=== PATIENT | female | born 1940 | race Caucasian/White ===

== ENCOUNTER 2019-07-30 10:48 | Emergency (ER) | payer MEDICARE ==
[~2019-07-30] VITALS: Ht 165.1 cm; Wt 65.8 kg
--- OUTSIDE RECORDS SUMMARY | ~2019-07-30 | XMS | Encounter Summary ---
Demographics + + + | Address | [address] | | | [place] [address] | + + + | Home Phone | | + + + | Preferred Language | Unknown | + + + | Marital Status | | + + + | Oriental Orthodox Affiliation | 1001 | + + + | Race | Unknown | + + + | Ethnic Group | Unknown | + + + Author + + + | Author | [facility] | | | and [place] | + + + | Organization | [facility] | | | and [place] | + + + | Address | Unknown | + + + | Phone | Unavailable | + + + Support + + +---------+ + | Name | Relationship | Address | Phone | + + +---------+ + | Kimberly Lyon | ECON | Unknown | | + + +---------+ + | Frances Dustin | ECON | Unknown | | + + +---------+ + Care Team Providers + +------+ + | Care Senior C Software Engineer Name | Role | Phone | + +------+ + PCP | Unavailable | + +------+ + Encounter Details +--------+ + + + + | Date | Type | Department | Care Team | Description | +--------+ + + + + | 04/08/ | Hospital | [facility] [place] | Doug García MD | | | 2010 | Encounter | [facility] | [address] | | | | | [address] | [place] [address] | | | | | [place], [place] | [phone] | | | | | [address] | | | | | | [phone] | | | +--------+ + + + + Social History + +-------+ +--------+------+ | Tobacco Use | Types | Packs/Day | Years | Date | | | | | Used | | + +-------+ +--------+------+ | Never Assessed | | | | | + +-------+ +--------+------+ + + + | Sex Assigned at | Date Recorded | | | | + + + | Not on file | | + + + + + + + | Job Start Date | Occupation | Industry | + + + + | Not on file | Not on file | Not on file | + + + + + + + + | Travel History | Travel Start | Travel End | + + + + + + | No recent travel history available. | + + documented as of this encounter Medications at Time of Discharge + + + +---------+ + + | Medication | Sig | Dispensed | Refills | Start | End Date | | | | | | Date | | + + + +---------+ + + | ascorbic acid ([facility] | Take 1,000 mg by | | 0 | 04/06/20 | | | VITAMIN C) 1000 MG | mouth Daily. | | | 11 | 4 | | tablet | | | | | | + + + +---------+ + + | B | once a day | | 0 | 04/06/20 | | | Ekwpjud-Trkxfd-JO | | | | 11 | 4 | | ( VITAMIN B | | | | | | | 50/B-COMPLEX) TABS | | | | | | + + + +---------+ + + | GARLIC | CAPS; once a day | | 0 | 04/06/20 | | | | | | | 11 | 4 | + + + +---------+ + + | magnesium (GNP | Take 250 mg by mouth | | 0 | 04/06/20 | | | MAGNESIUM) 250 MG | 2 times daily. | | | 11 | 4 | | tablet | | | | | | + + + +---------+ + + | magnesium, as | Take 500 mg by mouth | | 0 | 04/06/20 | | | oxide, (GNP | 3 times daily. | | | 11 | 0 | | MAGNESIUM) 250 MG | | | | | | | tablet | | | | | | + + + +---------+ + + | Red Yeast Rice 600 | Take 600 mg by mouth | | 0 | 04/06/20 | | | MG CAPS | 3 times daily. | | | 11 | 4 | + + + +---------+ + + documented as of this encounter Plan of Treatment Not on filedocumented as of this encounter Procedures + +--------+ + + + | Procedure Name | Priori | Date/Time | Associated Diagnosis | Comments | | | ty | | | | + +--------+ + + + | HISTORICAL IMAGING | | 04/08/2011 | | Results for this | | RESULT | | 9:43 AM | | procedure are in the | | | | PDT | | results section. | + +--------+ + + + documented in this encounter Results Historical Imaging Result (04/08/2011 9:43 AM PDT) + + | Specimen | + + | | + + + + + | Narrative | Performed At | + + + | Exam Performed Location: [facility] | MISCELANIOUS | | CT PARANASAL SINUS UNENHANCED CLINICAL INFORMATION: Chronic | LAB | | sinusitis. COMPARISON: 02/01/2006. PROCEDURE: CT scan of the | | | paranasal sinuses was carried out in transaxial plane unenhanced | | | utilizing contiguous 3 mm thick sections. 2 mm coronal reformations | | | were also obtained. Bone window settings were utilized. | | | FINDINGS: Dental amalgam are again seen resulting in adjacent | | | significant streaking artifacts. Hypoplastic frontal sinuses | | | bilaterally are again noted, left markedly smaller than right. Mild | | | scattered mucosal thickening in ethmoid sinuses bilaterally are | | | seen. Mild mucoperiosteal thickening adjacent to irwin of left | | | maxillary sinus (most prominent at posterior inferior maxillary | | | sinus) and to a lesser extent right maxillary sinus are noted. | | | Remainder of paranasal sinuses and mastoid air cells appear well | | | aerated. There is mucoperiosteal thickening in portion of left | | | ostiomeatal complex unit. There is narrowing of right ostiomeatal | | | complex unit which still appears patent. Hyperostosis frontalis | | | interna is seen. Focal minimal septal deviation to right at mid | | | posterior portion of nasal septum is noted. Well-aerated tylor | | | bullosa within superior left middle turbinate is seen. No gross | | | destructive or erosive osseous pathology is evident. IMPRESSION: | | | 1. Mild scattered mucosal thickening in ethmoid sinuses | | | bilaterally. 2. Mild mucoperiosteal thickening adjacent to irwin of | | | left maxillary sinus (most prominent at posterior inferior maxillary | | | sinus) and to a lesser extent right maxillary sinus. 3. | | | Mucoperiosteal thickening in portion of left ostiomeatal complex | | | unit. 4. Narrowing of right ostiomeatal complex unit which still | | | appears patent. 5. All other findings essentially unchanged from | | | prior exam as discussed above. S: SQ ([id number]) Signed by: | | | GILBERTO LYLES DO | | + + + + + | Procedure Note | + + | Carlos Martínez Conversion - 05/09/2013 4:59 PM PDT Exam [facility]formed [facility] UNENHANCEDCLINICAL INFORMATION:Chronic | | sinusitis.COMPARISON:02/01/2006.PROCEDURE:CT scan of the paranasal sinuses was carried | | out in transaxialplane unenhanced utilizing contiguous 3 mm thick sections. 2 mmcoronal | | reformations were also obtained. Bone window settings wereutilized.FINDINGS:Dental | | amalgam are again seen resulting in adjacent significantstreaking artifacts. | | Hypoplastic frontal sinuses bilaterally areagain noted, left markedly smaller than | | right. Mild scatteredmucosal thickening in ethmoid sinuses bilaterally are seen. | | Mildmucoperiosteal thickening adjacent to irwin of left maxillary sinus(most prominent | | at posterior inferior maxillary sinus) and to alesser extent right maxillary sinus are | | noted. Remainder ofparanasal sinuses and mastoid air cells appear well aerated. | | Thereis mucoperiosteal thickening in portion of left ostiomeatal complexunit. There is | | narrowing of right ostiomeatal complex unit whichstill appears patent.Hyperostosis | | frontalis interna is seen. Focal minimal septaldeviation to right at mid posterior | | portion of nasal septum isnoted. Well-aerated tylor bullosa within superior left | | middleturbinate is seen. No gross destructive or erosive osseouspathology is | | evident.IMPRESSION:1. Mild scattered mucosal thickening in ethmoid | | sinusesbilaterally.2. Mild mucoperiosteal thickening adjacent to irwin of leftmaxillary | | sinus (most prominent at posterior inferior maxillarysinus) and to a lesser extent | | right maxillary sinus.3. Mucoperiosteal thickening in portion of left | | ostiomeatalcomplex unit.4. Narrowing of right ostiomeatal complex unit which still | | appearspatent.5. All other findings essentially unchanged from prior exam asdiscussed | | above.S: SQ ([id number]) Signed by: GILBERTO LYLES DO | |lesser extent right maxillary sinus are noted. Remainder of | |paranasal sinuses and mastoid air cells appear well aerated. There | |is mucoperiosteal thickening in portion of left ostiomeatal complex | |unit. There is narrowing of right ostiomeatal complex unit which | |still appears patent. | | | |Hyperostosis frontalis interna is seen. Focal minimal septal | |deviation to right at mid posterior portion of nasal septum is | |noted. Well-aerated tylor bullosa within superior left middle | |turbinate is seen. No gross destructive or erosive osseous | |pathology is evident. | | | |IMPRESSION: | |1. Mild scattered mucosal thickening in ethmoid sinuses | |bilaterally. | |2. Mild mucoperiosteal thickening adjacent to irwin of left | |maxillary sinus (most prominent at posterior inferior maxillary | |sinus) and to a lesser extent right maxillary sinus. | |3. Mucoperiosteal thickening in portion of left ostiomeatal | |complex unit. | |4. Narrowing of right ostiomeatal complex unit which still appears | |patent. | |5. All other findings essentially unchanged from prior exam as | |discussed above. | | | | | |S: SQ ([id number]) Signed by: GILBERTO LYLES DO | + + + +---------+ + + | Performing | Address | City/State/Zipcode | Phone Number | | Organization | | | | + +---------+ + + | [facility] | | | [phone] | + +---------+ + + | MISC[facility]OUS LAB | | | [phone] | + +---------+ + + documented in this encounter Visit Diagnoses Not on filedocumented in this encounter"
--- OUTSIDE RECORDS SUMMARY | ~2019-07-30 | XMS | Encounter Summary ---
Demographics + + + | Address | [address] | | | [place] [address] | + + + | Home Phone | | + + + | Preferred Language | Unknown | + + + | Marital Status | | + + + | Restorationist Affiliation | 1001 | + + + | Race | Unknown | + + + | Ethnic Group | Unknown | + + + Author + + + | Author | [facility] | | | and [place] | + + + | Organization | [facility] | | | and [...] Team Providers + +------+ + | Care Glove Pairer Name | Role | Phone | + +------+ + | Doug García MD | PCP | | + +------+ + Encounter Details +--------+ + + + + | Date | Type | Department | Care Team | Description | +--------+ + + + + | 01/30/ | Hospital | [facility] [place] | Doug García MD | | | 2014 | Encounter | [facility] | [address] | | | | | [facility] | [place] [address] | | | | | [address] | [phone] | | | | | [place], [place] | | | | | | [address] | | | | | | [phone] | | | +--------+ + + + + Social History + +-------+ +--------+------+ | Tobacco Use | Types | Packs/Day | Years | Date | | | | | Used | | + +-------+ +--------+------+ | Never Smoker | | | | | + +-------+ +--------+------+ + +---+---+---+ | Smokeless Tobacco: | | | | | Never Used | | | | + +---+---+---+ + + +---------+ + | Alcohol Use | Drinks/Week | oz/Week | Comments | + + +---------+ + | Yes | | | Pt rarely drinks | | | | | alcohol | + + +---------+ + + + + | Sex Assigned at [...] + + documented as of this encounter Functional Status + + + + | Functional Status | Response | Date of Assessment | + + + + | Are you deaf or do you have serious | No | 01/06/2014 | | difficulty hearing? | | | + + + + | Are you blind or do you have serious | No | 01/06/2014 | | difficulty seeing, even when wearing | | | | glasses? | | | + + + + | Do you have serious difficulty walking or | Yes | 01/06/2014 | | climbing stairs? (5 years old or older) | | | + + + + | Do you have difficulty dressing or bathing? | Yes | 01/06/2014 | | (5 years old or older) | | | + + + + | Because of a physical, mental, or emotional | Yes | 01/06/2014 | | condition, do you have difficulty doing | | | | errands alone such as visiting a doctor's | | | | office or shopping? [15 years old or | | | | older)] | | | + + + + + + + + | Cognitive Status | Response | Date of Assessment | + + + + | Because of a physical, mental, or emotional | No | 01/06/2014 | | condition, do you have serious difficulty | | | | concentrating, remembering, or making | | | | decisions? (5 years old or older) | | | + + + + documented as of this encounter Medications at Time of Discharge + + + +---------+ + + | Medication | Sig | Dispensed | Refills | Start | End Date | | | | | | Date | | + + + +---------+ + + | amiodarone | Take 1 tablet by | 60 | 3 | 01/18/20 | | | (PACERONE) 200 mg | mouth 2 times daily. | tablet | | 14 | 4 | | tablet | | | | | | + + + +---------+ + + | Ascorbic Acid | Take 1,000 mg by | | 0 | | | | (VITAMIN C) 1000 MG | mouth Daily. | | | | 0 | | tablet | | | | | | + + + +---------+ + + | atorvaSTATin | Take 40 mg by mouth | | 0 | 12/19/19 | | | (LIPITOR) 40 mg | nightly. | | | 14 | 5 | | tablet | | | | | | + + + +---------+ + + | atorvaSTATin | Take 1 tablet by | 30 | 11 | 12/19/19 | | | (LIPITOR) 40 mg | mouth Daily. | tablet | | 14 | 4 | | tablet | | | | | | + + + +---------+ + + | famotidine | Take 1 tablet by | 30 | 0 | 01/14/20 | | | (PEPCID) 20 mg | mouth Daily. | tablet | | 14 | 5 | | tablet | | | | | | + + + +---------+ + + | ferrous gluconate | Take 1 tablet by | 60 | 1 | 01/03/20 | | | (FERGON) 324 (38 FE) | mouth 2 times daily | tablet | | 14 | 4 | | MG tablet | (with breakfast & | | | | | | | dinner). | | | | | + + + +---------+ + + | folic acid 1 mg | Take 1 tablet by | 30 | 1 | 01/03/20 | | | tablet | mouth Daily. | tablet | | 14 | 4 | + + + +---------+ + + | furosemide (LASIX) | Take 1 tablet by | 30 | 5 | 01/31/20 | | | 40 mg tablet | mouth Daily. | tablet | | 14 | 4 | + + + +---------+ + + | | Take 1 tablet by | 60 | 0 | 01/03/20 | | | HYDROcodone-acetamin | mouth every 4 hours | tablet | | 14 | 4 | | ophen (NORCO) 5-325 | as needed for Pain. | | | | | | mg per tablet | | | | | | + + + +---------+ + + | ibuprofen | Take 600 mg by mouth | | 0 | 01/14/20 | | | (ADVIL,MOTRIN) 600 | 2 times daily (with | | | 14 | 4 | | MG tablet | breakfast & | | | | | | | dinner). | | | | | + + + +---------+ + + | levothyroxine | Take 1 tablet by | 30 | 0 | 01/14/20 | | | (SYNTHROID, | mouth every morning | tablet | | 14 | 4 | | LEVOTHROID) 75 MCG | (before breakfast). | | | | | | tablet [...] + + + +---------+ + + | metoprolol | Take 1 tablet by | 60 | 2 | 01/03/20 | | | tartrate (LOPRESSOR) | mouth 2 times daily. | tablet | | 14 | 4 | | 25 mg tablet | | | | | | + + + +---------+ + + | potassium chloride | Take 1 tablet by | 90 | 0 | 01/14/20 | | | SA (K-SANDY,ALENAORTrentCON) | mouth 2 times daily. | tablet | | 14 | 4 | | 10 MEQ tablet | | | | | | + + + +---------+ + + | warfarin | Take 2.5 mg by mouth | | 0 | 01/14/20 | | | (COUMADIN) 2 mg | Daily. Pharmacy to | | | 14 | 4 | | tablet | dose | | | | | + + + +---------+ + + | zinc sulfate 220 | Take 220 mg by mouth | | 0 | | | | mg capsule | 2 times daily. | | | | 8 | + + + +---------+ + + documented as of this encounter Plan of Treatment Not on filedocumented as of this encounter Procedures + +--------+ + + + | Procedure Name | Priori | Date/Time | Associated Diagnosis | Comments | | | ty | | | | + +--------+ + + + | XR CHEST PA AND | Routin | 01/30/2014 | Post | Results for this | | LATERAL | e | 12:42 PM | pericardiotomy | procedure are in the | | | | PDT | syndrome | results section. | + +--------+ + + + documented in this encounter Results XR Chest PA and Lateral (01/30/2014 12:42 PM PDT) + + | Specimen | + + | | + + + + + | Narrative | Performed At | + + + | CHEST TWO VIEWS CLINICAL INFORMATION: Followup left | [facility] | | pleural effusion. History of quadruple bypass surgery on 12/24/2013. | | | COMPARISON: 01/12/2014. FINDINGS: Two PA and single lateral | | | erect views of chest were obtained. Patient is again status post open | | | heart surgery. Trachea is midline. Cardiomegaly is again seen. Mild | | | linear strand of increased density in right lateral inferior lung | | | base due to linear atelectasis, parenchymal scar and/or fibrosis is | | | noted. There is no evidence of active infiltrate or congestive | | | process. Right costophrenic sulcus appears clear. There is | | | opacification in left lower lung silhouetting left hemidiaphragm, | | | left costophrenic sulcus and mid to inferior left heart border | | | compatible with pleural effusion, moderately decreased in amount when | | | compared to prior exam. Adjacent osseous structures are essentially | | | unchanged from prior exam IMPRESSION: 1. Decreasing left | | | pleural effusion. 2. Persistent cardiomegaly. 3. Mild linear | | | atelectasis, parenchymal scar and/or fibrosis in right lateral | | | inferior lung base. | | + + + + + | Procedure Note | + + | Mauricio, Rad Results In - 01/30/2014 4:29 PM PDT | | | | CHEST TWO VIEWS | | | | CLINICAL INFORMATION: | | Followup left pleural effusion. History of quadruple bypass surgery | | on 12/24/2013. | | | | COMPARISON: | | 01/12/2014. | | | | FINDINGS: | | Two PA and single lateral erect views of chest were obtained. Patient | | is again status post open heart surgery. Trachea is midline. | | Cardiomegaly is again seen. Mild linear strand of increased density | | in right lateral inferior lung base due to linear atelectasis, | | parenchymal scar and/or fibrosis is noted. There is no evidence of | | active infiltrate or congestive process. Right costophrenic sulcus | | appears clear. There is opacification in left lower lung silhouetting | | left hemidiaphragm, left costophrenic sulcus and mid to inferior left | | heart border compatible with pleural effusion, moderately decreased | | in amount when compared to prior exam. Adjacent osseous structures | | are essentially unchanged from prior exam | | | | IMPRESSION: | | | | 1. Decreasing left pleural effusion. | | 2. Persistent cardiomegaly. | | 3. Mild linear atelectasis, parenchymal scar and/or fibrosis in right | | lateral inferior lung base. | | | + + + + + + + | Performing | Address | City/State/Zipcode | Phone Number | | Organization | | | | + + + + + | [facility] | [facility], [address] | [place] [address] | [phone] | | | [place] | | | + + + + + documented in this encounter Visit Diagnoses Not on filedocumented in this encounter"
--- OUTSIDE RECORDS SUMMARY | ~2019-07-30 | XMS | Encounter Summary ---
Demographics + + + | Address | [address] | | | [place] [address] | + + + | Home Phone | | + + + | Preferred Language | Unknown | + + + | Marital Status | | + + + | Baptism Affiliation | 1001 | + + + | Race | Unknown | + + + | Ethnic Group | Unknown | + + + Author + + + | Author | [facility] | | | and [place] | + + + | Organization | [facility] | | | and [...] Team Providers + +------+ + | Care Blow Torch Burner Name | Role | Phone | + +------+ + | Doug García MD | PCP | | + +------+ + Encounter Details +--------+ + + + + | Date | Type | Department | Care Team | Description | +--------+ + + + + | 10/21/ | Emergency | [facility] | Volodymyr Rudolph | Constipation, | | 2019 | | [facility] | [address] | unspecified | | | | EMERGENCY CENTER | [address] | constipation type; | | | | [address] | [place], [place] | Encounter for | | | | [place], [place] | [address] | postoperative wound | | | | [address] | [phone] | check | | | | [phone] | | | +--------+ + + + [...] + + documented as of this encounter Last Filed Vital Signs + + + + + | Vital Sign | Reading | Time Taken | Comments | + + + + + | Blood Pressure | 160/80 | 10/21/2018 5:08 PM | | | | | PDT | | + + + + + | Pulse | 82 | 10/21/2018 5:08 PM | | | | | PDT | | + + + + + | Temperature | 36.9 C (98.4 F) | 10/21/2018 5:08 PM | | | | | PDT | | + + + + + | Respiratory Rate | 16 | 10/21/2018 5:08 PM | | | | | PDT | | + + + + + | Oxygen Saturation | - | - | | + + + + + | Inhaled Oxygen | - | - | | | Concentration | | | | + + + + + | Weight | 70 kg (154 lb 5.1 | 10/21/2018 5:08 PM | | | | oz) | PDT | | + + + + + | Height | - | - | | + + + + + | Body Mass Index | 25.68 | 10/15/2018 2:40 PM | | | | | PDT | | + + + + + documented in this encounter Functional Status + + + + | Functional Status | Response | Date of Assessment | + + + + | Are you deaf or do you have serious | No | 03/30/2018 | | difficulty hearing? | | | + + + + | Are you blind or do you have serious | No | 03/30/2018 | | difficulty seeing, even when wearing | | | | glasses? | | | + + + + | Do you have serious difficulty walking or | No | 03/30/2018 | | climbing stairs? (5 years old or older) | | | + + + + | Do you have difficulty dressing or bathing? | No | 03/30/2018 | | (5 years old or older) | | | + + + + | Because of a physical, mental, or emotional | No | 03/30/2018 | | condition, do you have difficulty [...] physical, mental, or emotional | No | 03/30/2018 | | condition, do you have serious [...] + + + +---------+ + + | nitroglycerin | Place 1 tablet under | 25 | 0 | 04/05/20 | | | (NITROSTAT) 0.4 mg | the tongue every 5 | tablet | | 18 | | | SL | minutes as needed | | | | | | tabletIndications: | for Chest pain. | | | | | | Coronary artery | | | | | | | disease due to | | | | | | | calcified coronary | | | | | | | lesion | | | | | | + + + +---------+ + + | Ascorbic Acid | Take 1,000 mg by | | 0 | | | | (VITAMIN C) 1000 MG | mouth Daily. | | | | 0 | | tablet | | | | | | + + + +---------+ + + | aspirin 81 MG | Take 1 tablet by | 30 | 5 | 08/27/19 | | | tablet | mouth Daily. | tablet | | 18 | 0 | + + + +---------+ + + | atorvaSTATin | Take 1 tablet by | 30 | 5 | 04/05/20 | | | (LIPITOR) 40 mg | mouth nightly. | tablet | | 18 | 0 | | tablet | | | | | | + + + +---------+ + + | Capsicum, Cayenne, | Take by mouth | | 0 | | | | (CAYENNE PEPPER PO) | Daily. | | | | 0 | + + + +---------+ + + | clopidogrel | Take 1 tablet by | 30 | 11 | 03/31/20 | | | (PLAVIX) 75 mg | mouth Daily. | tablet | | 18 | 0 | | tablet | | | | | | + + + +---------+ + + | Coenzyme Q10 | Take by mouth | | 0 | | | | (COQ-10 PO) | Daily. | | | | 0 | + + + +---------+ + + | cyanocobalamin | Take 50 mcg by mouth | | 0 | | | | (VITAMIN B-12) 50 | Daily. | | | | 0 | | MCG tablet | | | | | | + + + +---------+ + + | isosorbide | Take 1 tablet by | 30 | 11 | 03/31/20 | | | mononitrate (IMDUR) | mouth Daily. | tablet | | 18 | 0 | | 30 mg ER tablet | | | | | | + + + +---------+ + + | levothyroxine | TAKE ONE TABLET BY | 90 | 3 | 06/02/20 | | | (SYNTHROID, | MOUTH ONCE DAILY IN | tablet | | 16 | 0 | | LEVOTHROID) 100 mcg | THE MORNING BEFORE | | | | | | tablet | BREAKFAST | | | | | + + [...] + + + +---------+ + + | meclizine | Take 1 tablet by | 60 | 2 | 02/26/20 | | | (ANTIVERT) 25 mg | mouth every 6 hours | tablet | | 14 | 0 | | tabletIndications: | as needed. | | | | | | Dizziness of unknown | | | | | | | cause | | | | | | + + + +---------+ + + | metoprolol | Take 3 tablets by | 90 | 11 | 04/05/20 | | | succinate | mouth Daily. | tablet | | 18 | 0 | | (TOPROL-XL) 25 mg 24 | | | | | | | hr tablet | | | | | | + + + +---------+ + + | metoprolol | Take 1 tablet by | 90 | 3 | 04/05/20 | | | succinate | mouth Daily. | tablet | | 18 | 0 | | (TOPROL-XL) 50 mg 24 | | | | | | | hr tablet | | | | | | + + + +---------+ + + | Nutritional | Take by mouth | | 0 | | | | Supplements (VITAMIN | Daily. | | | | 0 | | D MAINTENANCE PO) | | | | | | + + + +---------+ + + documented as of this encounter Plan of Treatment Not on filedocumented as of this encounter Visit Diagnoses + + | Diagnosis | + + | Constipation, unspecified constipation type | + + | Encounter for postoperative wound check Other specified aftercare following surgery | + + documented in this encounter"
--- OUTSIDE RECORDS SUMMARY | ~2019-07-30 | XMS | Encounter Summary ---
Demographics + + + | Address | [address] | | | [place] [address] | + + + | Home Phone | | + + + | Preferred Language | Unknown | + + + | Marital Status | | + + + | Adventism Affiliation | 1001 | + + + | Race | Unknown | + + + | Ethnic Group | Unknown | + + + Author + + + | Author | [facility] | | | and [place] | + + + | Organization | [facility] | | | and [place] | + + + | Address | Unknown | + + + | Phone | Unavailable | + + + Support + + +---------+ + | Name | Relationship | Address | Phone | + + +---------+ + | Kimberly Lyon | ECON | Unknown | | + + +---------+ + | Francesmami Chan | ECON | Unknown | | + + +---------+ + Care Team Providers + +------+ + | Care Drywall Taper Name | Role | Phone | + +------+ + | Doug García MD | PCP | | + +------+ + Reason for Visit + + + | Reason | Comments | + + + | Follow-up | | + + + | Coronary Artery | | | Disease | | + + + Encounter Details +--------+---------+ + + + | Date | Type | Department | Care Team | Description | +--------+---------+ + + + | 02/10/ | Office | [facility] | Fly Christianson, | Coronary artery | | 2013 | Visit | Cardiology [facility] | [address] | disease (Primary | | | | [address] | [address] [place], | Dx); Paroxysmal | | | | [address] [place], [place] | [place] [address] | atrial fibrillation | | | | [address] | [phone] | ([facility]); Benign | | | | [phone] | | essential | | | | | | hypertension; | | | | | | Chronic diastolic | | | | | | CHF (congestive | | | | | | heart failure), NYHA | | | | | | class 2 ([facility]) | +--------+---------+ + + + Social History + +-------+ [...] + + + | Blood Pressure | 146/90 | 02/10/2014 1:06 PM | L arm | | | | PDT | | + + + + + | Pulse | 64 | 02/10/2014 1:06 PM | reg | | | | PDT | | + + + + + | Temperature | - | - | | + + + + + | Respiratory Rate | - | - | | + + + + + | Oxygen Saturation | - | - | | + + + + + | Inhaled Oxygen | - | - | | | Concentration | | | | + + + + + | Weight | 71.7 kg (158 lb) | 02/10/2014 1:02 PM | | | | | PDT | | + + + + + | Height | 165.1 cm (5' 5") | 02/10/2014 1:02 PM | | | | | PDT | | + + + + + | Body Mass Index | 26.29 | 02/10/2014 1:02 PM | | | | | PDT [...] + + documented as of this encounter Patient Instructions Patient Instructions Fly Christianson MD - 02/10/2014 1:41 PM PDTStop Coumadin, Stop INR blood checks Stop Lasix and KCL, Replace with Dyazide 37.5/25 mg daily Add SHAMA Lisinopril 5 mg daily' Stop Amiodarone Reduce metoprolol to 12.5 mg twice a day Clinical f/u in 3 months documented in this encounter Progress Notes Fly Christianson MD - 02/10/2014 1:54 PM PDTFormatting of this note might be different fr om the original. PATIENT NAME: Chaya Chan : 1940: AGE: 73 y.o. PRIMARY CARE: Doug García MD CHIEF COMPLAINT: Chief Complaint Patient presents with Follow-up Coronary Artery Disease HISTORY OF PRESENT ILLNESS 73 y.o. year old female with history of bypass graft surgery x3 in December 2013. She had mild to diastolic heart failure postoperatively and also had postoperative atrial fibrillation. She was placed on Coumadin and amiodarone therapy. She's had no recurrent episodes of A. f ib. She is slowly getting her strength back. She feels dizzy approximately one to 2 hours after taking her medications. She denies any orthopnea or PND. She has no clinical history of heart failure despite some small pleural effusions postoperatively. She denies any recu rrent angina. She denies orthopnea or PND. CURRENT ASSESSMENT BY PROBLEM LIST Coronary artery disease Status post bypass graft surgery x3 without recurrent anginal symptoms. Patient's main com plaint is that of dizziness 1-2 hours after taking morning medications. She has been on bot h diuretics, amiodarone, and beta candice therapy 4 history of heart failure and postop A. denies recurrent angina Plan: Will reduce metoprolol to 12.5 mg twice a day DC amiodarone and Coumadin therapy Begin lisinopril 5 mg by mouth daily for blood pressure and decreased LV function Decrease Lasix to Dyazide 1 daily Paroxysmal atrial fibrillation (HCC) Paroxysmal atrial fibrillation postop now resolved. Patient is now rated in 1 month postop with maintenance of sinus rhythm. Her QT interval is mildly prolonged at 0.48 seconds with sinus rhythm Plan: #1 discontinue amiodarone #2. Discontinue Coumadin therapy #3 Start ASA 162 mg daily. Benign essential hypertension Hypertension; Previously on SHAMA inhibitor which was stopped initially post op P: D/C Lasix and KCL Resume lisinopril 5 mg daily Add dyazide 37.5/25 mg daily Monitor BP Chronic diastolic CHF (congestive heart failure), NYHA class 2 ([facility]) Diastolic CHF - Had post op effusions treated with diiuresis P: Change Lasix KCL to Dyazide Resume SHAMA at 5 mg Lisinopril daily FOLLOWUP Return in about 3 months (around 05/13/2014). MEDICATION ADJUSTMENTS New Prescriptions TRIAMTERENE-HYDROCHLOROTHIAZIDE (DYAZIDE) 37.5-25 MG PER CAPSULE Take 1 capsule by mout h Daily. These Medications Have Changed Start Taking Instead of metoprolol tartrate (LOPRESSOR) 25 mg tablet metoprolol tartrate (LOPRESSOR) 25 mg tablet Dosage: Take 0.5 tablets by mouth 2 times daily. - Oral Dosage: Take 1 tablet by mouth 2 times daily. - Oral Medications Discontinued During This Encounter Medication Reason amiodarone (PACERONE) 200 mg tablet Therapy completed warfarin (COUMADIN) 2 mg tablet Therapy completed furosemide (LASIX) 40 mg tablet Alternate therapy potassium chloride SA (K-DUR,KLOR-CON) 10 MEQ tablet Therapy completed metoprolol tartrate (LOPRESSOR) 25 mg tablet Reorder NEW ORDERS No orders of the defined types were placed in this encounter. . MEDICAL, SURGICAL, AND PERSONAL HISTORY Past Medical History Diagnosis Date Coronary artery disease Hyperlipidemia Hypertension Thyroid disease AR (myocardial infarction) ([facility]) CHF (congestive heart failure) ([facility]) Past Surgical History Procedure Date Coronary angioplasty Tonsillectomy Other surgical history 12/17/2013 CV DIAGNOSTIC CARDIAC CATH performed by Erum Gerardo MD at [facility] CARDIOV[facility]ULAR [facility] B Coronary artery bypass graft 12/24/2013 CORONARY ARTERY BYPASS GRAFT performed by Sj Viera MD at [facility] MAIN OR Stent placement additional vess Her family history is not on file. She reports that she has never smoked. She has never used smokeless tobacco. She reports t hat she drinks alcohol. She reports that she does not use illicit drugs. CURRENT MEDICATIONS Outpatient Encounter Prescriptions as of 02/10/2014 Medication Sig Dispense Refill [DISCONTINUED] amiodarone (PACERONE) 200 mg tablet Take 1 tablet by mouth 2 times daily . 60 tablet 3 Ascorbic Acid (VITAMIN C) 1000 MG tablet Take 1,000 mg by mouth Daily. atorvaSTATin (LIPITOR) 40 mg tablet Take 1 tablet by mouth Daily. 30 tablet 11 famotidine (PEPCID) 20 mg tablet Take 1 tablet by mouth Daily. 30 tablet 0 ferrous gluconate (FERGON) 324 (38 FE) MG tablet Take 1 tablet by mouth 2 times daily ( with breakfast & dinner). 60 tablet 1 folic acid 1 mg tablet Take 1 tablet by mouth Daily. 30 tablet 1 [DISCONTINUED] furosemide (LASIX) 40 mg tablet Take 1 tablet by mouth Daily. 30 tablet 5 HYDROcodone-acetaminophen (NORCO) 5-325 mg per tablet Take 1 tablet by mouth every 4 ho urs as needed for Pain. 60 tablet 0 ibuprofen (ADVIL,MOTRIN) 600 MG tablet Take 600 mg by mouth 2 times daily (with breakfa st & dinner). levothyroxine (SYNTHROID, LEVOTHROID) 75 MCG tablet Take 1 tablet by mouth every mornin g (before breakfast). 30 tablet 0 magnesium (GNP MAGNESIUM) 250 MG tablet Take 250 mg by mouth 2 times daily. metoprolol tartrate (LOPRESSOR) 25 mg tablet Take 0.5 tablets by mouth 2 times daily. 60 tablet 6 [DISCONTINUED] metoprolol tartrate (LOPRESSOR) 25 mg tablet Take 1 tablet by mouth 2 ti mes daily. 60 tablet 2 [DISCONTINUED] potassium chloride SA (K-DUR,KLOR-CON) 10 MEQ tablet Take 1 tablet by mo uth 2 times daily. 90 tablet 0 triamterene-hydrochlorothiazide (DYAZIDE) 37.5-25 MG per capsule Take 1 capsule by mout h Daily. 30 capsule 11 [DISCONTINUED] warfarin (COUMADIN) 2 mg tablet Take 2.5 mg by mouth Daily. Pharmacy to dose zinc sulfate 220 mg capsule Take 220 mg by mouth 2 times daily. ALLERGIES Allergies Allergen Reactions Iodine Anaphylaxis Diltiazem Hcl Latex Lidocaine Red Dye ROS 14 point ROS was completed and is negative except for: Weakness, shortness of breath, dizzi ness PHYSICAL EXAM BP 146/90 | Pulse 64 | Ht 1.651 m (5' 5") | Wt 71.668 kg (158 lb) | BMI 26.29 kg/m2 Body mass index is 26.29 kg/(m^2). GENERAL: Pleasant appearing in no apparent distress HEENT: Conjunctivae and lids are normal in appearance. Eyes: Extraocular movements intact. NECK: Supple, no JVD, Carotids are 2+ and brisk bilaterally without bruits. CHEST: Good inspiratory effort with no crackles, ronchi, or wheezes. CARDIAC ; midline incision appears well-healed PMI is non-displaced. Regular rate and rhyth m with normal S1 and S2. No murmurs, rubs or gallops. Blood pressures are equal in upper ext remities. ABDOMEN: Soft, non-tender, nondistended with normal, active bowel sounds. Normal abdominal pulsation without bruit. EXTREMITIES: No clubbing, cyanosis, or edema. PULSES: Right: radial 2+, femoral 2+ DP 2+, PT 2+ Left: radial 2+, femoral 2+ DP 2+, PT 2+ NEUROLOGIC: Non-focal. Patient is oriented to time, place, and person. Normal affect. SKIN: No rashes or skin breakdown. MUSCULOSKELETAL: Back is negative for scoliosis/kyphosis. Normal gait. Muscle strength is e qual bilaterally. LABS Lab Results Component Value Date WBC 5.7 01/16/2014 HGB 10.0* 01/16/2014 HCT 29.8* 01/16/2014 PLT 343 01/16/2014 CHOL 115 12/16/2013 TRIG 70 12/16/2013 HDL 53 12/16/2013 ALT 8* 01/16/2014 AST 9* 01/16/2014 NA 135 01/16/2014 K 4.5 01/16/2014 CL 98* 01/16/2014 CREA 0.99 01/16/2014 BUN 10 01/16/2014 CO2 32* 01/16/2014 TSH 4.48* 01/13/2014 INR 1.5* 01/30/2014 Twelve-lead ECG shows sinus rhythm at rate 61 beats per minute. QT interval is 0.[address]-T abnormality laterally. Thank you for allowing me to participate in the care of this patient. If you have any ques tions, please do not hesitate to contact me. Signed by: Fly Christianson MD [facility] 02/10/2014, 13:54 Patient Care Team: Doug García MD as PCP - General (Pulmonary Disease) documented in this e ncounter Plan of Treatment Not on filedocumented as of this encounter Visit Diagnoses + + | Diagnosis | + + | Coronary artery disease - Primary Coronary atherosclerosis of unspecified type of | | vessel, [place] or graft | + + | Paroxysmal atrial fibrillation (HCC) Atrial fibrillation | + + | Benign essential hypertension Essential hypertension, benign | + + | Chronic diastolic CHF (congestive heart failure), NYHA class 2 (HCC) | + + documented in this encounter
--- OUTSIDE RECORDS SUMMARY | ~2019-07-30 | XMS | Encounter Summary ---
Demographics + + + | Address | [address] | | | [place] [address] | + + + | Home Phone | | + + + | Preferred Language | Unknown | + + + | Marital Status | | + + + | Anabaptist Affiliation | 1001 | + + + | Race | Unknown | + + + | Ethnic Group | Unknown | + + + Author + + + | Author | [facility] | | | and [place] | + + + | Organization | [facility] | | | and [...] Team Providers + +------+ + | Care Rheologist Name | Role | Phone | + +------+ + | Doug García MD | PCP | | + +------+ + Reason for Visit + + + | Reason | Comments | + + + | Medication Refill | | + + + Encounter Details +--------+--------+ + + + | Date | Type | Department | Care Team | Description | +--------+--------+ + + + | 01/30/ | Refill | [facility] | Doug García MD | Medication Refill | | 2013 | | [facility] | [address] | | | | | Internal Medicine | [place] [address] | | | | | [address] [facility] | [phone] | | | | | [place], [place] | | | | | | [address] | | | | | | [phone] | | | +--------+--------+ + + + Social History + +-------+ [...] filedocumented as of this encounter Visit Diagnoses Not on filedocumented in this encounter"
--- OUTSIDE RECORDS SUMMARY | ~2019-07-30 | XMS | Encounter Summary ---
Demographics + + + | Address | [address] | | | [place] [address] | + + + | Home Phone | | + + + | Preferred Language | Unknown | + + + | Marital Status | | + + + | Scientologist Affiliation | [id number] | + + + | Race | Unknown | + + + | Ethnic Group | Unknown | + + + Author + + + | Author | [facility] | | | and [place] | + + + | Organization | [facility] | | | and [place] | + + + | Address | Unknown | + + + | Phone | Unavailable | + + + Support + + +---------+ + | Name | Relationship | Address | Phone | + + +---------+ + | Kimberly Lyon | ECON | Unknown | | + + +---------+ + | Frances Chan | ECON | Unknown | | + + +---------+ + Care Team Providers + +------+ + | Care Carton Forming Machine Helper Name | Role | Phone | + +------+ + | Doug García MD | PCP | | + +------+ + Reason for Visit + + + | Reason | Comments | + + + | Therapy Daily | | | Treatment | | + + + Physical Medicine (Routine) +--------+ + + + + + | Status | Reason | Specialty | Diagnoses / | Referred By | Referred To | | | | | Procedures | Contact | Contact | +--------+ + + + + + | Closed | Specialty | Physical | Diagnoses | Ricky, | [facility] Therapy | | | Services | Therapy / | Benign | MD Doug | [address] | | | Required | Rehabilitatio | paroxysmal | [address] | | | | n | positional | [address] | [place], [place] | | | | | vertigo, | Ave. | [address] | | | | | unspecified | [place], [place] | Phone: | | | | | laterality | [address] | [phone] | | | | | | Phone: | Fax: | | | | | | [phone] | [phone] | | | | | | Fax: | | | | | | | [phone] | | +--------+ + + + + + Encounter Details +--------+ + + + + | Date | Type | Department | Care Team | Description | +--------+ + + + + | 09/06/ | Hospital | [facility] | Doug García MD | Benign paroxysmal | | 2018 | Encounter | [facility] | [address] | positional vertigo, | | | | PHYSICAL THERAPY | [place] [address] | unspecified | | | | [address] | [phone] | laterality | | | | [place], [place] | | | | | | [address] | Satish Messer PT | | | | | [phone] | [address] | | | | | | [place], [place] | | | | | | [address] | | | | | | [phone] | | | | | | | | +--------+ + + + [...] do you have serious | No | 08/26/2017 | | difficulty hearing? | | | + + + + | Are you blind or do you have serious | No | 08/26/2017 | | difficulty seeing, even when wearing | | | | glasses? | | | + + + + | Do you have serious difficulty walking or | No | 08/26/2017 | | climbing stairs? (5 years old or older) | | | + + + + | Do you have difficulty dressing or bathing? | No | 08/26/2017 | | (5 years old or older) | | | + + + + | Because of a physical, mental, or emotional | No | 08/26/2017 | | condition, do you have difficulty [...] physical, mental, or emotional | No | 08/26/2017 | | condition, do you have serious [...] tablet by | 30 | 5 | 08/26/19 | | | (LIPITOR) 40 mg | mouth nightly. | tablet | | 18 | 8 | | tablet | | | | | | + + + +---------+ + + | Socorro Linda, | Take by mouth | | 0 [...] | | Take 1 tablet by | 30 | 11 | 05/04/20 | | | hydroCHLOROthiazide | mouth Daily. | tablet | | 17 | 8 | | 25 mg | | | | | | | tabletIndications: | | | | | | | Benign essential | | | | | | | hypertension | | | | | | + + + +---------+ + + | isosorbide | Take 1 tablet by | 30 | 5 | 08/27/19 | | | mononitrate (IMDUR) | mouth Daily. | tablet | | 18 | 8 | | 30 mg ER tablet | [...] metoprolol | Take 1 tablet by | 30 | 11 | 11/11/19 | | | succinate | mouth Daily. | tablet | | 17 | 8 | | (TOPROL-XL) 50 mg 24 | | | | | | | hr | | | | | | | tabletIndications: | | | | | | | Benign essential | | | | | | | hypertension | | | | | | + + + +---------+ + + | nitroglycerin | Place 1 tablet under | 25 | 0 | 05/04/20 | | | (NITROSTAT) 0.4 mg | the tongue every 5 | tablet | | 17 | 8 | | SL | minutes as needed [...] + + +---------+ + + | potassium 99 mg | Take 99 mg by mouth | | 0 | | | | tablet | Daily. | | | | 8 | + + + +---------+ + + | rivaroxaban | Take 1 tablet by | 30 | 5 | 08/26/19 | | | (XARELTO) 15 mg | mouth Daily (with | tablet | | 18 | 8 | | tablet | dinner). | | | | | + + + +---------+ + + | rivaroxaban | Take 1 tablet by | 30 | 5 | 08/26/19 | | | (XARELTO) 20 mg | mouth Daily (with | tablet | | 18 | 8 | | tablet | dinner). Start | | | | | | | tomorrow, August | | | | | | | . | | | | | + + + +---------+ + + | thyroid | Take 32.5 mg by | | 0 | | | | (NATURE-THROID, | mouth Daily. | | | | 8 | | WESTHROID) 325 MG | | | | | | | TABS | | | | | | + + + +---------+ + + | zinc sulfate 220 | Take 220 mg by mouth | | 0 | | | | mg capsule | 2 times daily. | | | | 8 | + + + +---------+ + + documented as of this encounter Progress Notes Satish Izaguirre, PT - 09/06/2017 12:57 PM PSTFormatting of this note might be different fr om the original. [facility] [address] [facility] [address] Physical Therapy Daily Treatment Note Date: 09/06/2017 Patient Information Patient Name: Chaya Chan Date of : 1940 Age: 76 y.o. Encounter Diagnoses Code Name Primary? H81.10 Benign paroxysmal positional vertigo, unspecified laterality Referring Provider: Doug García MD Rehab Precautions Flowsheet Row [facility] PT EVALUATION from 09/01/2017 in [facility] SICAL [facility]Y Rehab Precautions Precautions Comments Significant PMH please review Rehab Learning Style Flowsheet Row [facility] PT EVALUATION from 09/01/2017 in [facility] SICAL THERAPY Learning Style Patient's [employer] Learning Style reading Today's Treatment Patient Name: Chaya Chan/: 1940/ Start Time: 1200 Stop time: 1240 Duration: 40 minutes Timed Treatment Codes: 40 minutes # of PT Visits to Date: 2 Visit Summary: Patient excited to start exercises because she wants to improve so she can d rive, go fishing with her family etc. Started patient with ocular tracking tracking and X1 v iewing. Reviewed exercises several times to ensure clear understanding and also had patient 's watch too so he can assist. Also did balance on foam with eyes closed. Patient not able to come in next week so will re-check in 2 weeks. Add X2 viewing next session and add tandem standing. May want to have patient perform adaptation exercises in front of TV o r in standing if able. Also will need to add dynamic balance exercises. Next Visit Information: Patient would prefer a HEP with limited visits used (as able). Tea ch X1 and X2 viewing as well as ocular tracking. Also static and dynamic balance exercise o n foam/pillow. Therapy Interventions HEP: 09/06: Ocular tracking and X1 viewing to be done 3x/day, Balance on foam with eyes alexx sed x 2 minutes (2x/day). Hand written instructions given PT Interventions: Intervention #1 PT INTERVENTION 1: HEP as specified in HEP section Assessment Rehabilitation potential: Patient demonstrates good potential to achieve established goals to address the documented impairments by participating in skilled physical therapy services. OP PT Goals OP PT Goals: Goal 3 Goal 1: Patient to be independent in a HEP in 3-4 weeks Goal 1 Status: Started HEP today Goal 2: Patient to be able to report full 100% confidence in walking in crowded shopping ar ea and being bumped Goal 2 Status: In progress Electronically signed by: Satish Izaguirre PT, 09/06/2017 12:57 Patient Name: Chaya Chan/: 1940/ documented in this e ncounter Plan of Treatment Not on filedocumented as of this encounter Visit Diagnoses + + | Diagnosis | + + | Benign paroxysmal positional vertigo, unspecified laterality | + + documented in this encounter"
--- OUTSIDE RECORDS SUMMARY | ~2019-07-30 | XMS | Encounter Summary ---
Demographics + + + | Address | [address] | | | [place] [address] | + + + | Home Phone | | + + + | Preferred Language | Unknown | + + + | Marital Status | | + + + | Jain Affiliation | 1001 | + + + | Race | Unknown | + + + | Ethnic Group | Unknown | + + + Author + + + | Author | [facility] | | | and [place] | + + + | Organization | [facility] | | | [...] Team Providers + +------+ + | Care Risk Management Specialist Name | Role | Phone | + +------+ + | Doug García MD | PCP | | + +------+ + Encounter Details +--------+ + + + + | Date | Type | Department | Care Team | Description | +--------+ + + + + | 01/20/ | Hospital | [facility] | Ivon Shelton | | | 2014 | Encounter | [facility] | MD [address] | | | | | CLINIC LAB [address] | | | | | [facility], | [place] [address] | | | | | [place] [address] | [phone] | | | | | [phone] | | | +--------+ + + + + Social History + +-------+ +--------+------+ | Tobacco Use | Types | Packs/Day | Years | Date | | | | | Used | | + +-------+ +--------+------+ | Never Smoker | | | | | + +-------+ +--------+------+ + + +---------+ + | Alcohol Use [...] | 0 | 01/14/20 | | | 40 mg tablet | [...] 0 | 01/14/20 | | | SA ([facility]) | mouth 2 times daily. | tablet [...] | + +--------+ + + + | PROTIME INR | Routin | 01/20/2014 | | Results for this | | | e | 10:00 AM | | procedure are in the | | | | PDT | | results section. | + +--------+ + + + documented in this encounter Results Protime INR (01/20/2014 10:00 AM PDT) + + + + + + | Component | Value | Ref Range | Performed | Pathologist | | | | | At | Signature | + + + + + + | Prothrombin | 20.7 (H) | 8.9 - 11.7 sec | [facility] | | | Time | | [facility] | | | | [facility] | [facility] | | | | | | [facility] | | + + + + + + | INR | 2.0 (H)Comment: Usual | 0.9 - 1.3 | [facility] | | | | oral anticoagulant | | [facility] | | | | range: 2.0 to 3.0 | | [facility] | | | | High level oral | | [facility] | | | | anticoagulant range: 2.5 | | LABORATORY | | | | to 3.5 | | | | + + + + + + + + | Specimen | + + | | + + + + + + + | Performing | Address | City/State/Zipcode | Phone Number | | Organization | | | | + + + + + | [facility]IK[facility] | [address] | [place] [address] | | | [facility] | | | | | LABORATORY | | | | + + + + + documented in this encounter Visit Diagnoses Not on filedocumented in this encounter"
--- OUTSIDE RECORDS SUMMARY | ~2019-07-30 | XMS | Encounter Summary ---
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 | NSTEMI (non-ST | | 2018 | | [facility] | MD [address]ynor [address] | elevated myocardial | | | | EMERG[facility] | [address] | infarction) (HCC) | | | | [address] | [place] [address] | (Primary Dx); Atrial | | | | [place], [place] | [phone] | fibrillation with | | | | [address] | | RVR ([facility]) | | | | [phone] | | | +--------+ + + + [...] + + + | Blood Pressure | 157/73 | 08/24/2017 3:08 PM | | | | | PST | | + + + + + | Pulse | 66 | 08/24/2017 3:08 PM | | | | | PST | | + + + + + | Temperature | 36.3 C (97.4 F) | 08/24/2017 10:12 AM | | | | | PST | | + + + + + | Respiratory Rate | 9 | 08/24/2017 3:08 PM | | | | | PST | | + + + + + | Oxygen Saturation | 99% | 08/24/2017 3:08 PM | | | | | PST | | + + + + + | Inhaled Oxygen | - | - | | | Concentration | | | | + + + + + | Weight | 78.5 kg (173 lb) | 08/24/2017 10:12 AM | | | | | PST | | + + + + + | Height | 165.1 cm (5' 5") | 08/24/2017 10:12 AM | | | | | PST | | + + + + + | Body Mass Index | 28.79 | 08/24/2017 10:12 AM | | | | | PST | | + + + + + [...] | + +--------+ + + + | TROPONIN I | STAT | 08/24/2017 | | Results for this | | | | 12:20 PM | | procedure are in the | | | | PST | | results section. | + +--------+ + + + | XR CHEST AP PORTABLE | STAT | 08/24/2017 | | Results for this | | | | 10:42 AM | | procedure are in the | | | | PST | | results section. | + +--------+ + + + | URINALYSIS, REFLEX | STAT | 08/24/2017 | | Results for this | | MICROSCOPIC AND/OR | | 10:20 AM | | procedure are in the | | CULTURE | | PST | | results section. | + +--------+ + + + | URINALYSIS, | STAT | 08/24/2017 | | Results for this | | MICROSCOPIC ONLY | | 10:20 AM | | procedure are in the | | | | PST | | results section. | + +--------+ + + + | NT-PRO BNP | STAT | 08/24/2017 | | Results for this | | | | 9:25 AM | | procedure are in the | | | | PST | | results section. | + +--------+ + + + | TROPONIN I | STAT | 08/24/2017 | | Results for this | | | | 9:25 AM | | procedure are in the | | | | PST | | results section. | + +--------+ + + + | D-DIMER | STAT | 08/24/2017 | | Results for this | | | | 9:25 AM | | procedure are in the | | | | PST | | results section. | + +--------+ + + + | CBC WITH | STAT | 08/24/2017 | | Results for this | | DIFFERENTIAL | | 9:25 AM | | procedure are in the | | | | PST | | results section. | + +--------+ + + + | COMPREHENSIVE | STAT | 08/24/2017 | | Results for this | | METABOLIC PANEL | | 9:25 AM | | procedure are in the | | | | PST | | results section. | + +--------+ + + + documented in this encounter Results Troponin I (08/24/2017 12:20 PM PST) + + + + + + | Component | Value | Ref Range | Performed | Pathologist | | | | | At | Signature | + + + + + + | Troponin I | 0.23 ()Comment: | 0.00 - 0.08 | [facility] | | | | Borderline elevation. | ng/mL | [facility] | | | | Repeat testing may be | | [facility] | | | | indicated.Borderline | | [facility]OS[facility] | | | | elevation. Repeat | | LABORATORY | | | | testing may be | | | | | | indicated.Verified by | | | | | | repeat analysis.Verified | | | | | | by readback.Notified | | | | | | Beulah in at 1309. | | | | + + + + + + + + | Specimen | + + | Blood | + + + + + + + | Performing | Address | City/State/Zipcode | Phone Number | | Organization | | | | + + + + + | [facility] | [address] | [place] [address] | | | [facility] | | | | | LABORATORY | | | | + + + + + XR Chest AP Portable (08/24/2017 10:42 AM PST) + + | Specimen | + + | | + + + + + | Narrative | Performed At | + + + | CHEST PORTABLE ONE VIEW CLINICAL INFORMATION: Chest pain | [facility] | | that started this morning. History of quadruple bypass. Patient has | | | been around secondhand smoke for over 60 years. COMPARISON: | | | Chest two views on 01/30/2014. FINDINGS: Single portable AP semi | | | erect film of chest was obtained. Overlying leads are seen. | | | Patient is again status post open heart surgery. Trachea is | | | midline. Cardiomegaly is again seen. Heart is again obscuring | | | left mid to lower lung. There is no evidence of pneumothorax. | | | Increased interstitial markings are seen in right infrahilar region | | | in right lower lobe and visualized left infrahilar region in left | | | lower lobe suspicious for infiltrates/pneumonitis. PA and lateral | | | erect chest for followup is recommended. Right costophrenic sulcus | | | appears grossly clear. There is haziness of left costophrenic | | | sulcus, query mild pleural effusion or due to technique and overlying | | | soft tissues. Adjacent osseous structures are essentially | | | unchanged from prior exam. IMPRESSION: 1. Persistent | | | cardiomegaly. 2. Suspicious for infiltrates/pneumonitis in right | | | infrahilar region in right lower lobe and visualized left infrahilar | | | region in left lower lobe. Clinical correlation is recommended. 3. | | | Haziness of left costophrenic sulcus, query mild pleural effusion or | | | due to technique and overlying soft tissues. Signed by: | | | DO Contreras Vivienne | | + + + + + | Procedure Note | + + | Mauricio, Carlos Results In - 08/24/2017 10:57 AM PST | | CHEST PORTABLE ONE VIEW | | | | CLINICAL INFORMATION: | | Chest pain that started this morning. History of quadruple bypass. | | Patient has been around secondhand smoke for over 60 years. | | | | COMPARISON: | | Chest two views on 01/30/2014. | | | | FINDINGS: | | Single portable AP semi erect film of chest was obtained. Overlying | | leads are seen. Patient is again status post open heart surgery. | | Trachea is midline. Cardiomegaly is again seen. Heart is again | | obscuring left mid to lower lung. There is no evidence of | | pneumothorax. Increased interstitial markings are seen in right | | infrahilar region in right lower lobe and visualized left infrahilar | | region in left lower lobe suspicious for infiltrates/pneumonitis. PA | | and lateral erect chest for followup is recommended. Right | | costophrenic sulcus appears grossly clear. There is haziness of left | | costophrenic sulcus, query mild pleural effusion or due to technique | | and overlying soft tissues. Adjacent osseous structures are | | essentially unchanged from prior exam. | | | | IMPRESSION: | | 1. Persistent cardiomegaly. | | 2. Suspicious for infiltrates/pneumonitis in right infrahilar region | | in right lower lobe and visualized left infrahilar region in left | | lower lobe. Clinical correlation is recommended. | | 3. Haziness of left costophrenic sulcus, query mild pleural effusion | | or due to technique and overlying soft tissues. | | | | | | | | Signed by: DO Contreras Vivienne | + + + +---------+ + + | Performing | Address | City/State/Zipcode | Phone Number | | Organization | | | | + +---------+ + + | [facility] | | | | + +---------+ + + Urinalysis, Microscopic Only (08/24/2017 10:20 AM PST) + + + + + + | Component | Value | Ref Range | Performed | Pathologist | | | | | At | Signature | + + + + + + | WBC UA | 0 to 5 | 0 - 5 /hpf | [facility] | | | | | | [facility] | | | | [facility] | | | | | | [facility] | | + + + + + + | RBC UA | None seen | 0 - 5 /hpf | [facility] | | | | | | [facility] | | | | | [facility] | | | | | | [facility] | | + + + + + + | Epithelial | ModerateComment: | /hpf | [facility] | | | Cells | Squamous | | [facility] | | | | | | [facility] | [facility] | | | | | | LAB[facility]ORY | | + + + + + + | BACTERIA UA | Few | /hpf | [facility] | | | | | | [facility] | | | | | [facility] | | | | | | [facility] | | + + + + + + | CASTS | None seen | /lpf | [facility] | | | | | | [facility] | | | | | [facility] | | | | | | [facility] | | + + + + + + | CRYSTAL UA | ModerateComment: | /hpf | [facility] | | | | Amorphous | | [facility] | | | | [...] | + + + + + | [facility] | [address] [facility] | [place] [address] | | | [facility] | | | | | LABORATORY | | | | + + + + + Urinalysis, Reflex Microscopic and/or Culture (08/24/2017 10:20 AM PST) + + + + + + | Component | Value | Ref Range | Performed | Pathologist | | | | | At | Signature | + + + + + + | COLLECTION | Urine, Clean Catch | | [facility] | | | METHOD 1 | | | [facility] | | | | | [facility] | | | | | | [facility] | | + + + + + + | Color, | Yellow | | [facility] | | | Urine | | | [facility] | | | | | | [facility] | | [facility] | | | | | | [facility] | | + + + + + + | Clarity | Clear | | [facility] | | | | | | [facility] | | | | | [facility] | | | | | | [facility] | | + + + + + + | Glucose, | Negative | Negative mg/dL | [facility] | | | Urine | | | [facility] | | | | | | [facility] | [facility] | | | | | | [facility]ORY | | + + + + + + | Bilirubin, | Negative | Negative | [facility] | | | Urine | | | [facility] | | | | | [facility] | | | | | | [facility] | | + + + + + + | Ketones, | Negative | Negative mg/dL | [facility] | | | Urine | | | [facility] | | | | | [facility] | | | | | | [facility] | | + + + + + + | Specific | 1.020 | 1.002 - 1.030 | [facility] | | | Delta | | | [facility] | | | | | | [facility] | [facility] | | | | | | [facility] | | + + + + + + | pH, Urine | 7.5 | 5.0 - 7.5 | [facility] | | | | | | [facility] | | | | | [facility] | | | | | | [facility] | | + + + + + + | Protein, | Negative | Negative mg/dL | [facility] | | | Urine | | | [facility] | | | | | | [facility] | [facility] | | | | | | [facility]ORY | | + + + + + + | Urobilinoge | 0.2 | 0.2 - 1.0 mg/dL | [facility] | | | n, Urine | | | [facility] | | | | | | [facility] | [facility] | | | | | | [facility] | | + + + + + + | Nitrite, | Negative | Negative | [facility] | | | Urine | | | [facility] | | | | | | [facility] | [facility] | | | | | | [facility] | | + + + + + + | Blood, | Negative | Negative | [facility] | | | Urine | | | [facility] | | | | | | [facility] | | [facility] | | | | | | [facility] | | + + + + + + | Leukocyte | Trace (A) | Negative | [facility] | | | Esterase, | | | [facility] | | | Urine | | | [facility] | [facility] | | | | | | [facility] | | + + + + + + | Culture | Culture not indicated | | [facility] | | | Indicated | | | [facility] | | | | | | [facility] | [facility] | | | | | | [facility] | | + + + + + + + + | Specimen | + + | Urine - Urine | | specimen obtained by | | clean catch | | procedure (specimen) | + + + + + + + | Performing | Address | City/State/Zipcode | Phone Number | | Organization | | | | + + + + + | MONIKA [facility] | [address] [facility] | [place] [address] | | | [facility] | | | | | LABORATORY | | | | + + + + + D-Dimer (08/24/2017 9:25 AM PST) + +-------+ + + + | Component | Value | Ref Range | Performed | Pathologist | | | | | At | Signature | + +-------+ + + + | D-Dimer | 0.41 | 0 - 0.50 ug/mL | [facility] | | | Quantitativ | | FEU | [facility] | | | e | | | [facility] | | [facility] | | | | | | [facility] | | + +-------+ + + + + + | Specimen | + + | Blood | + + + + + + + | Performing | Address | City/State/Zipcode | Phone Number | | Organization | | | | + + + + + | [facility] | [address] [facility] | [place] [address] | | | [facility] | | | | | LABORATORY | | | | + + + + + NT-PRO BNP (08/24/2017 9:25 AM PST) + + + + + + | Component | Value | Ref Range | Performed | Pathologist | | | | | At | Signature | + + + + + + | NT-proBNP | 1,140 (H)Comment: | <450 pg/mL | [facility] | | | | PLEASE NOTE NORMAL | | [facility] | | | | RANGE FOR PATIENTS 0-74 | | [facility] | | | | YEARS OF AGE IS <125. | | HOSPITAL | | | | FOR PATIENTS 75 YEARS OR | | LABORATORY | | | | OLDER, THE NORMAL RANGE | | | | | | IS <450 | | | | + + + + + + + + | Specimen | + + | Blood | + + + + + + + | Performing | Address | City/State/Zipcode | Phone Number | | Organization | | | | + + + + + | [facility] | [address] [facility] | [place] [address] | | | [facility] | | | | | LABORATORY | | | | + + + + + Troponin I (08/24/2017 9:25 AM PST) + + + + + + | Component | Value | Ref Range | Performed | Pathologist | | | | | At | Signature | + + + + + + | Troponin I | 0.25 ()Comment: | 0.00 - 0.08 | [facility] | | | | Borderline elevation. | ng/mL | [facility] | | | | Repeat testing may be | | [facility] | | | | indicated.Borderline | | [facility]OS[facility] | | | | elevation. Repeat | | LAB[facility]ATORY | | | | testing may be | | | | | | indicated.Verified by | | | | | | repeat analysis.Verified | | | | | | by readback.Notified | | | | | | Amilcar in ER at 1010. | | | | + + + + + + + + | Specimen | + + | Blood | + + + + + + + | Performing | Address | City/State/Zipcode | Phone Number | | Organization | | | | + + + + + | [facility] | [address] [facility] | [place] [address] | | | [facility] | | | | | LABORATORY | | | | + + + + + Comprehensive Metabolic Panel (08/24/2017 9:25 AM PST) + + + + + + | Component | Value | Ref Range | Performed | Pathologist | | | | | At | Signature | + + + + + + | Na | 138 | 135 - 145 | [facility] | | | | | mmol/L | [facility] | | | | | | [facility] | [facility] | | | | | | [facility] | | + + + + + + | K | 3.6 | 3.5 - 5.1 | [facility] | | | | | mmol/L | [facility] | | | | | | [facility] | | [facility] | | | | | | [facility] | | + + + + + + | Cl | 99 | 98 - 109 mmol/L | [facility] | | | | | | [facility] | | | | | | [facility] | [facility] | | | | | | [facility] | | + + + + + + | CO2 | 29 | 21 - 32 mmol/L | [facility] | | | | | | [facility] | | | | | | [facility] | [facility] | | | | | | [facility] | | + + + + + + | Glucose | 180 (H) | 60 - 114 mg/dL | [facility] | | | | | | [facility] | | | | | [facility] | | | | | | [facility] | | + + + + + + | BUN | 23 (H) | 8 - 21 mg/dL | [facility] | | | | | | [facility] | | | | | [facility] | | | | | | [facility] | | + + + + + + | Creatinine | 1.44 (H) | 0.5 - 1.2 mg/dL | [facility] | | | | | | [facility] | | | | | [facility] | | | | | | [facility] | | + + + + + + | Calcium | 9.5 | 8.5 - 10.2 | [facility] | | | | | mg/dL | [facility] | | | | | | [facility] | | | | | | [facility] | | + + + + + + | Total | 8.2 (H) | 6.3 - 8.0 g/dL | [facility] | | | Protein | | | [facility] | | | | | | [facility] | | [facility] | | | | | | [facility] | | + + + + + + | Albumin | 4.0 | 3.5 - 5.0 g/dL | [facility] | | | | | | [facility] | | | | | | [facility] | [facility] | | | | | | [facility] | | + + + + + + | Bilirubin | 0.4 | 0.2 - 1.0 mg/dL | [facility] | | | Total | | | [facility] | | | | | | [facility] | | | | [facility] | | | | | | [facility] | | + + + + + + | Alkaline | 73 | 38 - 110 U/L | [facility] | | | Phosphatase | | | [facility] | | | | | | [facility] | [facility] | | | | | | [facility]ORY | | + + + + + + | AST | 20 | 5 - 40 U/L | [facility] | | | | | | [facility] | | | | | [facility] | | | | | | [facility] | | + + + + + + | ALT | 27 | 12 - 78 U/L | [facility] | | | | | | [facility] | | | | | [facility] | | | | | | [facility] | | + + + + + + | Anion Gap | 14 | 10 - 20 mmol/L | [facility] | | | | | | [facility] | | | | | [facility] | | [facility] | | | | | | [facility] | | + + + + + + | Estimated | 38 (L)Comment: GFR <60: | >60 | [facility] | | | GFR | Chronic kidney disease, | ml/min/1.73m2 | [facility] | | | | if found over a 3 month | | [facility] | | | | period.GFR <15: Kidney | | HOSPITAL | | | | failure.For | | LABORATORY | | | | Americans, multiply the | | | | | | calculated GFR by 1.210 | | | | + + + + + + + + | Specimen | + + | Blood | + + + + + + + | Performing | Address | City/State/Zipcode | Phone Number | | Organization | | | | + + + + + | [facility] | [address] [facility] [facility] [address] | [place] [address] | | | [facility] | | | | | LABORATORY | | | | + + + + + CBC with Differential (08/24/2017 9:25 AM PST) + + + + + + | Component | Value | Ref Range | Performed | Pathologist | | | | | At | Signature | + + + + + + | WBC | 5.2 | 3.8 - 11.0 K/uL | [facility] | | | | | | [facility] | | | | | [facility] | | | | | | [facility] | | + + + + + + | RBC | 4.03 | 3.70 - 5.10 | [facility] | | | | | M/uL | [facility] | | | | | | [facility] | | [facility] | [facility] | | | | | | [facility] | | + + + + + + | Hemoglobin | 12.7 | 11.3 - 15.5 | [facility] | | | | | g/dL | [facility] | | | | | | [facility] | | | | [facility] | | | | | | [facility] | | + + + + + + | Hematocrit | 36.6 | 34.0 - 46.0 % | [facility] | | | | | | [facility] | | | | | [facility] | | | | | | [facility] | | + + + + + + | MCV | 90.7 | 80.0 - 100.0 fL | [facility] | | | | | | [facility] | | | | | | [facility] | | | | | | [facility] | | + + + + + + | MCH | 31.6 | 27.0 - 34.0 pg | [facility] | | | | | | [facility] | | | | | | [facility] | | [facility] | | | | | | [facility] | | + + + + + + | MCHC | 34.8 | 32.0 - 35.5 | [facility] | | | | | g/dL | [facility] | | | | | | [facility] | | [facility] | | | | | | [facility] | | + + + + + + | RDW-CV | 14.1 | 11.0 - 15.5 % | [facility] | | | | | | [facility] | | | | | [facility] | | | | | | [facility] | | + + + + + + | Platelet | 186 | 150 - 400 K/uL | [facility] | | | Count | | | [facility] | | | | | [facility] | [facility] | | | | | | [facility] | | + + + + + + | Differentia | Automated | | [facility] | | | l Type | | | [facility] | | | | | [facility] | | | | | | [facility] | | + + + + + + | % | 58.8 | 40.0 - 75.0 % | [facility] | | | Neutrophils | | | [facility] | | | | | [facility] | [facility] | | | | | | [facility] | | + + + + + + | % | 31.7 | 15.0 - 48.0 % | [facility] | | | Lymphocytes | | | [facility] | | | | | [facility] | [facility] | | | | | | [facility] | | + + + + + + | % Monocytes | 7.6 | 0.0 - 12.0 % | [facility] | | | | | | [facility] | | | | | [facility] | | | | | | [facility] | | + + + + + + | % | 1.2 | 0.0 - 7.0 % | [facility] | | | Eosinophils | | | [facility] | | | | | | [facility] | [facility] | | | | | | [facility] | | + + + + + + | % Basophils | 0.7 | 0.0 - 2.0 % | [facility] | | | | | | [facility] | | | | | [facility] | [facility] | | | | | | [facility] | | + + + + + + | % nRBC | 0.1 | /100 WBCs | [facility] | | | | | | [facility] | | | | | [facility] | | | | | | [facility] | | + + + + + + | Absolute | 3.10 | 1.90 - 7.40 | [facility] | | | Neutrophils | | K/uL | [facility] | | | | | [facility] | [facility] | | | | | | [facility] | | + + + + + + | Absolute | 1.70 | 1.00 - 3.90 | [facility] | | | Lymphocytes | | K/uL | [facility] | | | | | [facility] | | | | | | [facility] | | + + + + + + | Absolute | 0.40 | 0.00 - 0.80 | [facility] | | | Monocytes | | K/uL | [facility] | | | | | [facility] | [facility] | | | | | | [facility] | | + + + + + + | Absolute | 0.10 | 0.00 - 0.50 | [facility] | | | Eosinophils | | K/uL | [facility] | | | | | [facility] | [facility] | | | | | | [facility] | | + + + + + + | Absolute | 0.00 | 0.00 - 0.10 | [facility] | | | Basophils | | K/uL | [facility] | [facility] | | [facility] | | | | | | [facility] | | + + + + + + + + | Specimen | + + | Blood | + + + + + + + | Performing | Address | City/State/Zipcode | Phone Number | | Organization | | | | + + + + + | [facility] | [address] [facility] | [place] [address] | | | [facility] | | | | | LABORATORY | | | | + + + + + documented in this encounter Visit Diagnoses + + | Diagnosis | + + | NSTEMI (non-ST elevated myocardial infarction) (HCC) - Primary Acute myocardial | | infarction, subendocardial infarction, episode of care unspecified | + + | Atrial fibrillation with RVR (HCC) Atrial fibrillation | + + documented in this encounter Administered Medications + +--------+ +--------+------+------+ | Medication Order | MAR | Action | Dose | Rate | Site | | | Action | Date | | | | + +--------+ +--------+------+------+ | aspirin chewable tablet 324 mg | Given | 08/24/19 | 324 mg | | | | 324 mg, Oral, ONCE, [facility] 08/24/17 | | 18 9:40 | | | | | at 0935, For 1 dose | | AM PST | | | | + +--------+ +--------+------+------+ +---+---+ | | | +---+---+ + +-------+ +--------+---+---+ | heparin 1,000 units/mL | Given | 08/24/19 | 4,000 | | | | injection 4,000 Units 4,000 | | 18 11:09 | Units | | | | Units, Intravenous, ONCE, [place] | | AM PST | | | | | 08/24/17 at 1050, For 1 dose | | | | | | + +-------+ +--------+---+---+ +---+---+ | | | +---+---+ + +---------+ + +-------+---+ | heparin infusion 50 units/mL in | New Bag | 08/24/19 | 12 | 18.8 | | | dextrose 5% 12 Units/kg/hr | | 18 11:10 | Units/kg | mL/hr | | | 78.5 kg (18.84 mL/hr, rounded to | | AM PST | /hr | | | | 18.8 mL/hr), at 18.8 mL/hr, | | | | | | | Intravenous, ONCE, [place] 08/24/17 at | | | | | | | 1050, For 1 dose | | | | | | + +---------+ + +-------+---+ +---+---+ | | | +---+---+ + +-------+ +------+---+---+ | metoprolol tartrate (LOPRESSOR) | Given | 08/24/19 | 5 mg | | | | injection 5 mg 5 mg, | | 18 9:52 | | | | | Intravenous, ONCE, [place] 08/24/17 at | | AM PST | | | | | 0950, For 1 dose | | | | | | + +-------+ +------+---+---+ +---+---+ | | | +---+---+ + +-------+ +------+---+---+ | morphine injection 2 mg 2 mg, | Given | 08/24/19 | 2 mg | | | | Intravenous, EVERY 1 HOUR PRN, | | 18 9:40 | | | | | Pain, Starting [place] 08/24/17 at 0928 | | AM PST | | | | + +-------+ +------+---+---+ +---+---+ | | | +---+---+ + +---------+ +--------+-------+---+ | sodium chloride 0.9% (NS) bolus | New Bag | 08/24/19 | 1,000 | 500 | | | 1,000 mL 1,000 mL, Intravenous, | | 18 9:40 | mLs | mL/hr | | | Administer over 2 Hours, ONCE, | | AM PST | | | | | [place] 08/24/17 at 0935, For 1 dose | | | | | | + +---------+ +--------+-------+---+ +---+---+ | | | +---+---+ documented in this encounter
--- OUTSIDE RECORDS SUMMARY | ~2019-07-30 | XMS | Encounter Summary ---
Demographics + + + | Address | [address] | | | [place] [address] | + + + | Home Phone | | + + + | Preferred Language | Unknown | + + + | Marital Status | | + + + | Restorationism Affiliation | [id number] | + + + | Race | Unknown | + + + | Ethnic Group | Unknown | + + + Author + + + | Author | [facility] | | | and [place] | + + + | Organization | [facility] | | | and [place] | + + + | Address | Unknown | + + + | Phone | Unavailable | + + + Support + + +---------+ + | Name | Relationship | Address | Phone | + + +---------+ + | Kimberly Lyon | ECON | Unknown | | + + +---------+ + | Francesrosio Chan | ECON | Unknown | | + + +---------+ + Care Team Providers + +------+ + | Care 3D Designer Name | Role | Phone | + +------+ + | Doug García MD | PCP | | + +------+ + Reason for Visit Auth/Cert +--------+--------+ + + + + | Status | Reason | Specialty | Diagnoses / | Referred By | Referred To | | | | | Procedures | Contact | Contact | +--------+--------+ + + + + | Closed | | | Diagnoses | | | | | | | Coronary | | | | | | | atherosclero | | | | | | | sis of | | | | | | | [place] | | | | | | | coronary | | | | | | | artery | | | | | | | Coronary | | | | | | | atherosclero | | | | | | | sis of | | | | | | | [place] | | | | | | | coronary | | | | | | | artery | | | | | | | Procedures | | | | | | | AK CABG, | | | | | | | ARTERIAL, | | | | | | | THREE | | | | | | | CORONARY | | | | | | | ARTERY | | | | | | | BYPASS GRAFT | | | +--------+--------+ + + + + Encounter Details +--------+---------+ + + + | Date | Type | Department | Care Team | Description | +--------+---------+ + + + | 12/24/ | Surgery | [facility] | Sj Viera, | CABG X4, WITH EV - | | 2013 | | [facility] | MD [address] | RIGHT AND LEFT | | | | OP [address] | [place] [address] | SAPHENOUS VEIN,VOGEL | | | | [place] | [phone] | | | | | [address] | | | | | | [phone] | | | +--------+---------+ + + + Social History [...] + + + | Blood Pressure | 121/78 | 01/02/2014 7:00 AM | | | | | PDT | | + + + + + | Pulse | 88 | 01/02/2014 7:00 AM | | | | | PDT | | + + + + + | Temperature | 36.6 C (97.8 F) | 01/02/2014 7:00 AM | | | | | PDT | | + + + + + | Respiratory Rate | 16 | 01/02/2014 7:00 AM | | | | | PDT | | + + + + + | Oxygen Saturation | 96% | 01/02/2014 7:00 AM | | | | | PDT | | + + + + + | Inhaled Oxygen | - | - | | | Concentration | | | | + + + + + | Weight | 77.1 kg (169 lb 15.6 | 01/02/2014 2:45 AM | | | | oz) | PDT | | + + + + + | Height | 165.1 cm (5' 5") | 12/24/2013 8:54 AM | | | | | PDT | | + + + + + | Body Mass Index | 28.29 | 12/24/2013 8:54 AM | | | | | PDT | | + + + + + documented in this encounter Functional Status + + + + | Functional Status | Response | Date of Assessment | + + + + | Are you deaf or do you have serious | No | 12/16/2013 | | difficulty hearing? | | | + + + + | Are you blind or do you have serious | No | 12/16/2013 | | difficulty seeing, even when wearing | | | | glasses? | | | + + + + | Do you have serious difficulty walking or | No | 12/16/2013 | | climbing stairs? (5 years old or older) | | | + + + + | Do you have difficulty dressing or bathing? | No | 12/16/2013 | | (5 years old or older) | | | + + + + | Because of a physical, mental, or emotional | No | 12/16/2013 | | condition, do you have difficulty [...] physical, mental, or emotional | No | 12/16/2013 | | condition, do you have serious difficulty | | | | concentrating, remembering, or making | | | | decisions? (5 years old or older) | | | + + + + documented as of this encounter Discharge Summaries Sj Viera MD - 01/02/2014 10:18 AM PDTChart reviewed. Patient interviewed and examin ed. Agree with plans as outlined. Electronically signed by: Sj Viera MD 01/06/2014 11:56 o Brandon Herrera PA - 01/02/2014 10:18 AM PDT [facility] PATIENT NAME: Chaya Chan : 1940: AGE: 73 y.o. ADMISSION DATE: 12/24/2013 DISCHARGE DATE: 01/02/2014 PRIMARY CARE: Doug García MD DISCHARGE SUMMARY Admission Diagnoses: HOSPITAL PROBLEM LIST FULL PROBLEM LIST Principal Problem: *CORONARY ARTERY DISEASE Active Problems: A-fib (HCC) HYPERLIPIDEMIA ESSENTIAL HYPERTENSION BENIGN Acute blood loss anemia Stress hyperglycemia Patient Active Problem List Diagnosis HYPOTHYROIDISM HYPERLIPIDEMIA SLEEP APNEA OBSTRUCTIVE RESTLESS LEGS SYNDROME ESSENTIAL HYPERTENSION BENIGN CORONARY ARTERY DISEASE CARDIOMYOPATHY DILATED ISCHEMIC CHRONIC SINUSITIS CEREBRAL ISCHEMIA Nausea Allergic reaction to contrast dye NSTEMI (non-ST elevated myocardial infarction) (HCC) Acute systolic heart failure (HCC) Stress hyperglycemia A-fib (HCC) Acute blood loss anemia Hyponatremia Discharge Diagnoses: Same as above. Procedure: Coronary artery bypass graft times 4 with left internal mammary artery to the le ft anterior descending, aortocoronary reverse saphenous vein grafts to the obtuse marginal b ranch of the circumflex, diagonal branch of the left anterior descending, and right coronary artery with endoscopic vein harvest of the right and left thigh greater saphenous vein. Surgeon: Dr. Viera Date of Procedure: December 24, 2013 Indication for Procedure:Chaya is a pleasant 73-year-old female who was admitted last week with a non-Q-wave myocardial infarction. She was on Plavix for prior circumflex stenting. T he stent appears to have occluded. She has an angiogram showing severe 3-vessel coronary art cathy disease with very diffuse disease in the LAD, especially and circumflex system. Surgery has been recommended, and after informed consent, she was brought to the operating room. Hospital Course: Patient was admitted to [facility] on 12/24/[address] Dodie navarrete for coronary bypass grafting surgery. She was taken to the operating room on the same d ay. OPERATIVE FINDINGS: LV function is normal, which is improved from last week. The aorta is n ormal. Vein is good in the thigh, two small in the lower extremity. TEMI is a good conduit. T he arteries are terribly calcified with calcification all the way down the LAD into the diag onal way out on the circumflex system and right. It was very difficult to find landing sites for our grafts. The diagonal had a good landing site, the circumflex was grafted very dista lly and the LAD was grafted in the middle of the artery with disease before and after, altho ugh not a high-grade occlusive disease distally and the right was similarly grafted in the d istal third. There was good runoff in the grafts. The patient came off bypass with normal le ft ventricular function. No blood products were utilized. The patient before surgery refused packed red cells but said she would take platelets or FFP. No blood products were utilized. CARDIOPULMONARY BYPASS DATA: Crossclamp time 93 minutes, bypass time 103 minutes. Patient tolerated the procedure well with no intraoperative complications. For details ple ase refer to Dr. Viera's operative report. She was taken to the CICU postoperatively in sta ble condition. There, she was extubated without complications and was neurologically intact . She was later transferred to the floor on postoperative day 1 where she continued to prog ress and remained the rest of her hospitalization. She did have acute blood loss anemia, sh e initially refused to receive a blood transfusion but later agreed to transfusion of one un it of PRBC. She was also placed on IV iron and oral iron. She was diuresed for volume over load. She had several episodes of paroxysmal atrial fibrillation, she was ultimately placed on Coumadin. The rest of her hospital course was dedicated to cardio pulmonary rehabilitat ion. She is now ready for discharge home with her family on postoperative day #9 in stable condition. She is to have a hgb/hct check next week and a INR check tomorrow. She has been referred t o the [facility] anticoagulation clinic for further monitoring. Discharge Vitals: Vital Signs: Temp: 36.6 C (97.8 F) BP: 121/78 mmHg Pulse: 88 Resp: 16 SpO2: 96 % Last Wt. Before discharge: Weight: 77.1 kg (169 lb 15.6 oz) Wt. 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 aspirin 81 mg EC tablet Take 81 mg by mouth Daily. atorvaSTATin (LIPITOR) 40 mg tablet Take 1 tablet by mouth Daily. 30 tablet 11 B Qnnnoyd-Adxyuo-UT ( VITAMIN B 50/B-COMPLEX) TABS once a day lisinopril (PRINIVIL, ZESTRIL) 10 mg tablet Take 1 tablet by mouth Daily. 30 tablet 0 magnesium (GNP MAGNESIUM) 250 MG tablet Take 250 mg by mouth 2 times daily. metoprolol tartrate (LOPRESSOR) 50 mg tablet Take 1 tablet by mouth 2 times daily. 60 tablet 11 [DISCONTINUED] nitroglycerin (NITROSTAT) 0.4 mg SL tablet 0.4 mg as needed for chest pa in, may repeat every 15 mins x 2 100 tablet 2 [DISCONTINUED] pantoprazole (PROTONIX) 40 mg tablet Take 40 mg by mouth once. psyllium (KONSYL) 28.3 % PACK Take 1 packet by mouth 3 times daily. zinc sulfate 220 mg capsule Take 220 mg by mouth 2 times daily. Disposition: Home with family Specific Nursing Facility: None Diet: cardiac diet Discharge Instructions: reviewed and discussed 1. Sternal Precautions: No lifting, pushing, pulling >5 #s for the first [address] for 4 weeks and/or if still taking narcotics. 2. Wound care: Keep clean and dry, may shower, wash with soap and water daily. Pat dry. Shashi l for any signs symptoms of infection (erythemia, discharge, increasing pain, fever). 3. Patient may shower, wash with soap and water on incisions. Pat dry. 4. Smoking Cessation counselled 5. Continue to increase activities with ambulation and to use incentive spirometer. Follow-up with Aylin in 1 month. Follow-up with Doug García in 1-2 weeks. Follow-up with Dr. Armstrong with [facility] in 1 month. If patient has any further questions or concerns prior to above, instructed to call our off ice. [phone]. Signed by: CASSIE Thomas Cardiothoracic Surgery [facility] 01/02/2014, 10:18 Copies for: Dr. Doug García documented in this e ncounter Discharge Instructions Instructions Brandon Franco PA - 01/02/2014Formatting of this note might be different fro m the original. After Open Heart Surgery Home Care Take your medications exactly as directed. Don t skip doses. Avoid using very hot water while showering. It can affect your circulation and make you dizzy. Clean your incision every day with soap and water. Gently pat dry the area of the incisi on. Don t use any powders, lotions, or oils on your incision until it is well healed. Heal ing takes several weeks to months. Weigh yourself every day, at the same time of day, and in the same kind of clothes. Tell your doctor if you feel depressed, have trouble sleeping, or have a persistent decr ease in appetite. These are common problems after surgery, but they can slow your recovery. It s important to seek help. Activity Discuss with your doctor what you can and can t do as you recover. You will have good and bad days. This is normal. Let others drive for the first 4-6weeks after your surgery. Ask someone to stand nearby while you shower or do other activities, just in case you ne ed help. Don t lift anything heavier [id number] for6-8 weeks. Until approved by your doctor, avoid mowing the lawn, vacuuming,or other activities th at could strain your breastbone. Ask your healthcare provider when you can expect to return to work. Lifestyle Changes Maintain a healthy weight. Get help to lose any extra pounds. Cut back on salt. Limit canned, dried, packaged, and fast foods. Don t add salt to your food at the table. Season foods with herbs instead of salt when you cook. Break the smoking habit. Enroll in a stop-smoking program to improve your chances of suc cess. Ask your doctor when you can start a walking program. If you haven t already started a walking program in the hospital, begin with short wal ks ([id number]) at home. Go a little longer each day. Choose a safe place with a level surface, such as a local park or mall. Wear supportive shoes to prevent injury to knees and ankles. Walk with someone. It s more fun and helps you stay with it. Follow-Up Make a follow-up appointment as directed by our staff. When to Call Your Doctor Call your doctor immediately if you have any of the following: Chest pain or a return of the heart symptoms you had prior to surgery Fever .0F Redness, swelling, drainage, or warmth at the incision site Shortness of breath Fainting Weight gain of more bwyh1imafea oy00thzbd or more zfaj1xrcica jf5cpfy(s) New or increasedswelling in your hands, feet, or ankles Pain that cannot be relieved or changes in the location, type, or severity of pain Fast or irregular pulse Unrelieved pain in your incision [id number] Werner Pereyra, [address] [place] [address], [place] [address]. All rights reserve d. This information is not intended as a substitute for professional medical care. Always fo llow your healthcare professional's instructions. documented in this encounter Medications at Time of Discharge [...] + +---------+ + + | aspirin 81 mg EC | Take 81 mg by mouth | | 0 | | | | tablet | Daily. | | | | 4 | + + + +---------+ [...] | 0 | 04/06/20 | | | Ihkzptb-Cwbfzb-FC | | | | 11 | 4 [...] (LASIX) | Take 1 tablet by | 5 | 0 | 01/03/20 | | | 40 mg tablet | mouth Daily for 5 | tablet | | 14 | 4 | | | days. | | | | | + + [...] + + + +---------+ + + | pantoprazole | Take 1 tablet by | 10 | 0 | 01/03/20 | | | (PROTONIX) 40 mg | mouth every morning | tablet | | 14 | 4 | | tablet | (before breakfast). | | | | | + + + +---------+ + + | potassium chloride | Take 2 tablets by | 5 | 0 | 01/03/20 | | | (KLOR-CON) 10 mEq | mouth Daily for 5 | tablet | | 14 | 4 | | CR tablet | days. | | | | | + + + +---------+ + + | psyllium (KONSYL) | Take 1 packet by | | 0 | | | | 28.3 % PACK | mouth 3 times daily. | | | | 4 | + + + +---------+ + + | senna (SENOKOT) | Take 1 tablet by | 120 | 0 | 01/03/20 | | | 8.6 mg tablet | mouth 2 times daily. | tablet | | 14 | 4 | + + + +---------+ + + | warfarin | Take 5 mg by mouth, | 30 | 2 | 01/03/20 | | | (COUMADIN) 5 mg | with dose | tablet | | 14 | 4 | | tablet | adjustments per INR | | | | | + + + +---------+ + + | zinc sulfate 220 | Take 220 mg by mouth | | 0 | | | | mg capsule | 2 times daily. | | | | 4 | + + + +---------+ + + documented as of this encounter Progress Steven Lewis MD - 01/02/2014 11:27 AM PDTFormatting of this note might be different fro m the original. PATIENT NAME: Chaya Chan : 1940: AGE: 73 y.o. ADMISSION DATE: 12/24/2013 Hospital Day: Hospital Day: 10 Code Status: Full Code ABBY Keyes CARDIOLOGY DAILY PROGRESS NOTE PRIMARY HOSPITAL PROBLEM: Coronary atherosclerosis of unspecified type of vessel, [place] or graft CHIEF COMPLAINT: shortness of breath, weakness ASSESSMENT CORONARY ARTERY DISEASE Assessment & Plan Status post CABG x 4, POD # 9. EF 60% post op. Feels good. Maintaining NSR. Plan: DC home. Follow up with Dr. Christianson 02/10/2014. Paroxysmal atrial fibrillation (HCC) Assessment & Plan A:Paroxysms between Afib rate 90's to NSR Plan: DC home today. Coumadin therapy adjustment per Dr. García. PT/INR at Dr. García's office 01/06/2014. HYPERLIPIDEMIA Assessment & Plan Continue statin. ESSENTIAL HYPERTENSION BENIGN Assessment & Plan Well under control. Plan: Continue current medical regimen. Acute blood loss anemia Assessment & Plan On Fe+ IV and PO. H/H stable, Refuses PRBCs. Acute on chronic diastolic CHF (congestive heart failure), NYHA class 2 (HCC) Overview 12/24/2013 Echo: 1. There is again noted proximal inferior and proximal inferolateral relative hypokinesia. Due to concentric remodeling the overall ejection fraction is still normal. There is moderate concentric left ventricular hypertrophy. The estimated ejection fraction is 60%. 2. The right ventricle is normal in size and function. 3. Doppler suggests tiny left to right interatrial shunt. 4. The left atrium is moderately dilated. 5. No thrombus is detected in the left atrial appendage. 6. no clinically significant valvular dysfunction is noted. There is only trace aortic insufficiency. 7. Mild atherosclerotic plaque(s) in the descending aorta. 8. imaging was also done after Coronary artery bypass (CABG). No new wall motion abnormalities are noted. Left ventricular ejection fraction is still greater than 55%. Mitral and aortic valves still function well. Assessment & Plan A:-12 liters fluid, weight still up 3kg from admit.Has dyspnea on exertion. Plan: Lasix 40mg daily x 5 days with 20meq Kcl x 5days. Instructed to weigh herself daily and call our office with >3# weight gain in 2 days. Low c holesterol, low saturated Fat diet. PLAN DC home. Lasix and Kcl x 5 days. Daily weights, call with weight gain >3 # 2 days, increasing shortn ess of breath,orthopnea, paroxysmal nocturnal dyspnea. Follow up with Dr. Christianson 02/10/2014. Coumadin dosing and PT/INR through Dr. Vega have called and arranged. INR on 01/06/2014. SUBJECTIVE DATA REVIEW OF SYSTEMS: Consitutional: feels well, fatigued and generally weak CV: negative Resp: negative GI: Denies nausea, vomiting or diarrhea. Skin: negative Musculoskeletal: negative OBJECTIVE DATA MEDICATIONS: Scheduled PRN aspirin 81 mg Oral Daily atorvaSTATin 40 mg Oral Daily ferric gluconate (FERRLECIT, NULECIT) IVPB 125 mg Intravenous Daily [START ON 01/06/2014] ferrous gluconate 324 mg Oral BID WC folic acid 1 mg Oral Daily metoprolol tartrate 25 mg Oral BID pantoprazole 40 mg Oral QAM AC pharmacy to dose warfarin Other Pharmacy Consult senna 8.6 mg Oral BID vitamin C 250 mg Oral BID WC warfarin 5 mg Oral Once - Warfarin [COMPLETED] warfarin 5 mg Oral Once - Warfarin acetaminophen, acetaminophen, acetaminophen, bisacodyl, diphenhydrAMINE, diphenhydrAMINE, diphenhydramine, HYDROcodone-acetaminophen, HYDROcodone-acetaminophen, magnesium hydroxide, zyzflykw-apycggexv-mfjjutmaiv, ondansetron, ondansetron, phenol-menthol, sodium phosphate IV INFUSIONS: LABS Recent Labs Basename 01/02/14 0342 01/01/14 1038 12/31/13 0459 WBC -- 9.8 9.0 HGB -- 8.3* 8.0* HCT -- 24.1* 22.9* PLT -- 237 193 NA -- -- 135 K -- -- 3.7 CL -- -- 99 CO2 -- -- 30* BUN -- -- 11 CREA -- -- 1.07* GLU -- -- 86 CALCIUM -- -- 8.6 INR 1.2 1.0 -- PT -- -- -- PTT -- -- -- CKMB -- -- -- TROPONINI -- -- -- BNP -- -- -- Lab Results Component Value Date HBA1C 5.5 12/23/2013 Lab Results Component Value Date INR 1.2 01/02/2014 INR 1.0 01/01/2014 INR 1.0 12/23/2013 PROTIME 14.5 01/02/2014 PROTIME 12.6 01/01/2014 PROTIME 12.9 12/23/2013 Lab Results Component Value Date CHOL 115 12/16/2013 LDL 48 12/16/2013 HDL 53 12/16/2013 TRIG 70 12/16/2013 Lab Results Component Value Date TSH 3.7 03/24/2011 VITAL SIGNS: Vitals Current Average / Min / Max Temp 36.6 C (97.8 F) Temp Min: 36.1 C (97 F) Max: 36.7 C (98 F) BP 121/78 mmHg BP Min: 119/55 Max: 128/79 HR 88 Pulse Av.8 Min: 59 Max: 106 RR 16 Resp Av Min: 16 Max: 16 Sats 96 % SpO2 Min: 93 % Max: 97 % Weight 77.1 kg (169 lb 15.6 oz) Admit: 74.6 kg (164 lb 7.4 oz) INTAKE/OUTPUT Date 01/01/141900 - 01/02/14 0700 01/02/14 0701 - 01/03/14 0700 Shift 6254-0719 24 Hour Total 0455-5243 9844-9748 24 Hour Total I N T A K E P.O. 300 300 P.O. 200 200 Free Water Intake (mL) 100 100 IV Piggyback 104 Volume (mL) (ferric gluconate (FERRLECIT, NULECIT) 125 mg in sodium chloride 0.9% 100 mL IVPB) 104 Shift Total (mL/kg) 300 (3.9) 404 (5.2) O U T P U T Urine (mL/kg/hr) 1600 (1.7) 3000 (1.6) Shift Total (mL/kg) 1600 (20.8) 3000 (38.9) NET -1300 -2596 Weight (kg) 77.1 77.1 77.1 77.1 77.1 Intake/Output Summary (Last 24 hours) at 01/02/14 1139 Last data filed at 01/02/14 0700 Gross per 24 hour Intake 300 ml Output 2800 ml Net -2500 ml Imaging: Xr Chest Pa And Lateral 12/23/2013 CHEST TWO VIEWS IMPRESSION: Negative chest. Xr Chest Ap Portable 12/25/2013 CHEST, AP PORTABLE IMPRESSION: Hypoventilatory postoperative chest. No pneum othorax. Xr Chest Ap Portable 12/24/2013 CHEST IMPRESSION: 1. Right internal jugular line with tip in the expected loc ation of the superior vena cava. 2. Endotracheal tube with tip approximately 2 cm above the level of the aaron. Nm Nuclear Stress Test (vasodilator) 12/16/2013 Impression: ECG stress test results: 1. Normal baseline 12 lead electrocardiogr am. 2. No significant arrhythmias noted throughout monitoring. 3. The ECG findings are nondi agnostic. Myocardial perfusion results: 1. Myocardial perfusion imaging is abnormal. 2. T here is a large area of moderately reduced tracer uptake that is most consistent with ische mary in all lateral wall segments as well as the anterolateral base and the inferolateral ba se. There is mild persistence of the lateral wall defect proximally, so some degree of inf arction or dense ischemia is present. The SDS score is 9 which is consistent with a high risk study. 3. Overall left ventricular systolic function is abnormal with regional wall motion abnormalities and the LVEF is 42%. 4. By imaging criteria, this is a high risk test result. PHYSICAL EXAM Admit Weight: Weight: 74.6 kg (164 lb 7.4 oz) Current weight: Weight: 77.1 kg (169 lb 15.6 oz) Body mass index is 28.29 kg/(m^2). GENERAL: Pleasant, talkative in no acute distress. HEENT: Conjunctivae and lids are normal in appearance. Mucous membranes moist without pa llor or cyanosis. NECK: Supple. No JVD. CHEST: Respiratory effort is normal. Clear to auscultation without crackles, ronchi, or wh eezes. CARDIAC: RRR, Normal S1 and S2, No murmurs, rubs or gallops. ABDOMEN: Soft, non-tender, nondistended with normal, active bowel sounds. EXTREMITIES: No clubbing, cyanosis, or edema. PULSES: Right: DP 2+, PT 2+ Left: DP 2+, PT 2+ NEUROLOGIC: Alert and oriented to time, place and person. Normal affect. INCISION: CDI TELE: NSR Signed by: ABBY Keyes 01/02/2014, 11:39 Patient was personally examined, chart reviewed and plan discussed with mid-level. I have reviewed the laboratory and physical findings documented above. Note that the patient is ba ck into sinus rhythm. INR is 1.2 although warfarin was only started yesterday. The sotalol was discontinued since it did not appear to be effective. The patient will followup with Dr Rush Christianson in approximately 5 weeks. If she is back in atrial fibrillation, could consider elec trocardioversion if her Anticoagulation is therapeutic. Physical exam: General: Alert and comfortable. Neck: No obvious elevation of jugular venous distention. Lungs: Clear to auscultation. Cardiovascular: Regular rhythm with normal S1, S2 and no appreciable murmur. Extremities: No edema or cyanosis. Electronically signed by Steven Dyer MD, [facility] DATE/TIME: 01/02/2014 12:32 Porsche Ramos, PharmD - 01/02/2014 9:01 AM PDTFormatting of this note might be different from the [facility] Progress Note Warfarin Per Pharmacy Protocol: Chaya Chan is a 73 y.o. female receiving warfarin for atrial fibrillation Goal INR: 2-3 Date 01/01/2014 01/02/2014 INR - 1.2 Warfarin Dose 5mg 5mg Platelets - 237 H&H - 8.3/24.1 Assessment/Plan: 1. Warfarin 5 mg PO x1 dose today 2. Bridge: none 3. Medication profile reviewed for potential drug-drug interactions 4. Labs ordered: INR daily and CBC every other day 5. Pharmacist to follow daily Subjective/Objective: Lab 01/02/14 0342 01/01/14 1038 12/31/13 0459 CREA -- -- 1.07* PLT -- 237 -- INR 1.2 -- -- HGB -- 8.3* -- HCT -- 24.1* -- [x]Initiation Interactions: none Per P&T-approved Warfarin Protocol Electronically signed by: Porsche Jordan PHARMD 01/02/2014 9:01 oiles, Della Kimbrough RN - 01/02/2014 8:21 AM PDTAmbulated patient in sanchez 150 feet, room air, standby assist only, did well Kam Fountain PA - 01/02/2014 7:59 AM PDT [facility] PROGRESS NOTE Pt. Name/Age/: Chaya Chan 73 y.o. 1940 Med. Record Number: [id number] Date of admission: 12/24/2013 POD #9 Procedure: CABG X 4 Surgeon: Aylin Subjective General: alert and oriented New complaints: none Was nauseous yesterday am. OK as of now Pain: well controlled. Eating fairly well Objective: Temp: 36.6 C (97.8 F) BP: 121/78 mmHg Pulse: 88 Resp: 16 SpO2: 96 % on Min/Max Temp past 24 hours:Temp Av.4 C (97.6 F) Min: 36.1 C (97 F) Max: 36. 7 C (98 F) Intake/Output Summary (Last 24 hours) at 01/02/14 0759 Last data filed at 01/02/14 0700 Gross per 24 hour Intake 404 ml Output 3000 ml Net -2596 ml Wt. Admission: Weight: 74.6 kg (164 lb 7.4 oz) Wt. Current: Weight: 77.1 kg (169 lb 15. 6 oz) Infusions: Active Medications: aspirin 81 mg Oral Daily atorvaSTATin 40 mg Oral Daily ferric gluconate (FERRLECIT, NULECIT) IVPB 125 mg Intravenous Daily [START ON 01/06/2014] ferrous gluconate 324 mg Oral BID WC folic acid 1 mg Oral Daily metoprolol tartrate 25 mg Oral BID pantoprazole 40 mg Oral QAM pharmacy to dose warfarin Other Pharmacy Consult senna 8.6 mg Oral BID vitamin C 250 mg Oral BID WC [COMPLETED] warfarin 5 mg Oral Once - Warfarin Neuro: intact Heart: irregularly irregular rhythm with rate 90's Respiratory:clear to auscultation bilaterally Sternum: Stable Abdomen: soft, non-tender, without masses or organomegaly Extremities: peripheral pulses normal, no pedal edema, no clubbing or cyanosis Wounds: well approximated incision: CT output: NA/8hrshift. Rhythm Strip: atrial fibrillation - controlled Imaging: No results found. Labs Recent Labs Basename 01/02/14 0342 01/01/14 1038 12/31/13 0459 WBC -- 9.8 9.0 HGB -- 8.3* 8.0* HCT -- 24.1* 22.9* PLT -- 237 193 NA -- -- 135 K -- -- 3.7 CL -- -- 99 CO2 -- -- 30* BUN -- -- 11 CREA -- -- 1.07* GLU -- -- 86 CALCIUM -- -- 8.6 INR 1.2 1.0 -- PT -- -- -- PTT -- -- -- CKMB -- -- -- TROPONINI -- -- -- BNP -- -- -- Lab Results Component Value Date CHOL 115 12/16/2013 CHOL 165 12/08/2011 CHOL 181 06/27/2011 HDL 53 12/16/2013 HDL 46 12/08/2011 HDL 44 06/27/2011 TRIG 70 12/16/2013 TRIG 109 12/08/2011 TRIG 182 06/27/2011 Diagnostic studies: Available data and images were reviewed personally. See reports. Signi ficant results and findings are addressed here or in the Assessment and Plan. Assessment and Plan: S/P cabg x 4. HD stable with afib. Pharmacy dosing coumadin. Progress care with ambulation, IS Q1hr WA, shower daily. D/C planning for today? , to home with services . Problem List Patient Active Problem List Diagnosis HYPOTHYROIDISM HYPERLIPIDEMIA SLEEP APNEA OBSTRUCTIVE RESTLESS LEGS SYNDROME ESSENTIAL HYPERTENSION BENIGN CORONARY ARTERY DISEASE CARDIOMYOPATHY DILATED ISCHEMIC CHRONIC SINUSITIS CEREBRAL ISCHEMIA Nausea Allergic reaction to contrast dye NSTEMI (non-ST elevated myocardial infarction) (HCC) Acute systolic heart failure (HCC) Stress hyperglycemia A-fib (HCC) Acute blood loss anemia Hyponatremia Electronically signed by: CHUY OsunaC Physician Cad Administrator [facility] Cardiothoracic Surgery 01/02/2014 7:59 [facility] Rod Dow (Fritz ), PharmD - 01/01/2014 9:43 AM PDTFormatting of this note might be different fr om the original. Pharmacy Progress Note Warfarin Per Pharmacy Protocol: Chaya Chan is a 73 y.o. female receiving warfarin for atrial fibrillation Goal INR: 2-3 Date 01/01/2014 INR - Warfarin Dose 5mg Platelets - H&H - Assessment/Plan: 1. Warfarin 5mg po x1 now 2. Bridge: none 3. Medication profile reviewed for potential drug-drug interactions 4. Labs ordered: INR daily and CBC every other day 5. Pharmacist to follow daily Subjective/Objective: Lab 12/31/13 0459 CREA 1.07* PLT 193 INR -- HGB 8.0* HCT 22.9* [x]Initiation Interactions: none Per P&T-approved Warfarin Protocol Electronically signed by: Yonis Randall, PHARMD 01/01/2014 9:43 ing , Steven Avelar MD - 01/01/2014 9:28 AM PDT PATIENT NAME: Chaya Chan : 1940: AGE: 73 y.o. ADMISSION DATE: 12/24/2013 Hospital Day: Hospital Day: 9 Code Status: Full Code ABBY Cade CARDIOLOGY DAILY PROGRESS NOTE [facility] PROBLEM: Coronary atherosclerosis of unspecified type of vessel, quartz valley or graft CHIEF COMPLAINT: fatigue, some nausea but improved from yesterday. ASSESSMENT CORONARY ARTERY DISEASE Assessment & Plan Status post CABG x 4, POD # 8. EF 60% post op. A-fib (HCC) Assessment & Plan Back in Afib rate 90's, starting warfarin today. HYPERLIPIDEMIA Assessment & Plan On statin ESSENTIAL HYPERTENSION BENIGN Assessment & Plan Well under control. Acute blood loss anemia Assessment & Plan On Fe+ IV and PO. H/H stable, Refuses PRBCs. PLAN Warfarin Increase activity SUBJECTIVE DATA REVIEW OF SYSTEMS: Consitutional: feels ill, fatigued and generally weak CV: negative Resp: no cough, shortness of breath, or wheezing GI: nausea without vomitting Skin: negative Musculoskeletal: negative OBJECTIVE DATA MEDICATIONS: Scheduled PRN aspirin 81 mg Oral Daily atorvaSTATin 40 mg Oral Daily digoxin (LANOXIN) IV 0.25 mg Intravenous Once [COMPLETED] digoxin (LANOXIN) IV 0.5 mg Intravenous Once ferric gluconate (FERRLECIT, NULECIT) IVPB 125 mg Intravenous Daily ferrous gluconate 324 mg Oral BID WC folic acid 1 mg Oral Daily [COMPLETED] metoprolol tartrate 25 mg Oral Once metoprolol tartrate 50 mg Oral BID pantoprazole 40 mg Oral QAM AC pharmacy to dose warfarin Other Pharmacy Consult senna 8.6 mg Oral BID sotalol 80 mg Oral Q12H vitamin C 250 mg Oral BID WC acetaminophen, acetaminophen, acetaminophen, bisacodyl, diphenhydrAMINE, diphenhydrAMINE, diphenhydramine, HYDROcodone-acetaminophen, HYDROcodone-acetaminophen, magnesium hydroxide, doqnzzij-uojdfbuqh-rlbxslqnel, ondansetron, ondansetron, phenol-menthol, sodium phosphate LABS Recent Labs Basename 12/31/13 0459 12/30/13 0152 WBC 9.0 -- HGB 8.0* 7.9* HCT 22.9* 23.1* PLT 193 -- NA 135 -- K 3.7 -- CL 99 -- CO2 30* -- BUN 11 -- CREA 1.07* -- GLU 86 -- CALCIUM 8.6 -- INR -- -- PT -- -- PTT -- -- CKMB -- -- TROPONINI -- -- BNP -- -- Lab Results Component Value Date CHOL 115 12/16/2013 LDL 48 12/16/2013 HDL 53 12/16/2013 TRIG 70 12/16/2013 VITAL SIGNS: Vitals Current Average / Min / Max Temp 36.4 C (97.6 F) Temp Min: 35.6 C (96.1 F) Max: 36.7 C (98 F) BP 125/72 mmHg BP Min: 102/53 Max: 125/72 HR 112 Pulse Av.2 Min: 55 Max: 123 RR 18 Resp Av Min: 18 Max: 18 Sats 93 % SpO2 Min: 91 % Max: 95 % Weight 76.9 kg (169 lb 8.5 oz) Admit: 74.6 kg (164 lb 7.4 oz) INTAKE/OUTPUT Date 12/31/131900 - 01/01/14 0700 01/01/14 07 - 01/02/14 0700 Shift 7916-7506 24 Hour Total 0109-0349 8257-1660 24 Hour Total I N T A K E P.O. 490 1510 P.O. 240 1020 Free Water Intake (mL) 250 490 Shift Total (mL/kg) 490 (6.4) 1510 (19.6) O U T P U T Urine (mL/kg/hr) 1750 (1.9) 2325 (1.3) Emesis/NG output 400 Shift Total (mL/kg) 1750 (22.8) 2725 (35.4) NET -1260 -1215 Weight (kg) 76.9 76.9 76.9 76.9 76.9 PHYSICAL EXAM Admit Weight: Weight: 74.6 kg (164 lb 7.4 oz) Current weight: Weight: 76.9 kg (169 lb 8.5 oz) Body mass index is 28.21 kg/(m^2). GENERAL: Pale, no apparent distress HEENT: Mucous membranes moist. NECK: Supple. No JVD CHEST: Good inspiratory effort with no crackles, ronchi, or wheezes. CARDIAC: Normal S1 and S2. irregular, No murmurs, rubs or gallops. ABDOMEN: Soft, non-tender, nondistended with normal, active bowel sounds. EXTREMITIES: No clubbing, cyanosis, or edema. PULSES: Distal pulses intact NEUROLOGIC: Non-focal. TELE: Afib Signed by: ABBY Cade 01/01/2014, 9:28 Patient was personally examined, chart reviewed and plan discussed with mid-level. I have reviewed the laboratory and physical findings documented above. Patient with recurrent afib at around 3 AM. Had 5 second pause afterwards. Discussed with Obie Alonso. Will stop sotalol and decrease metoprolol to 25 mg BID. Agree with warfarin. Consider ECV i n 4 weeks if still in afib. Note Hct today is stable. Physical exam: General: Alert and comfortable. Neck: No obvious elevation of jugular venous distention. Lungs: Clear to auscultation. Cardiovascular: Irregular rhythm with normal S1, S2 and no appreciable murmur. Extremities: No edema or cyanosis. Electronically signed by Steven Dyer MD, [facility] DATE/TIME: 01/01/2014 11:55 Shahrzad Grajeda MD - 01/01/2014 6:59 AM PDT [facility] PROGRESS NOTE Pt. Name/Age/: Chaya Chan 73 y.o. 1940 Med. Record Number: [id number] Date of admission: 12/24/2013 Subjective: The patient chart and medications were reviewed in detail and the patient was s een and examined. The patient is postoperative day 8 after bypass. Good ventricular function. Main issue chandler s been recurrent/persistent atrial fibrillation. Was in normal sinus rhythm yesterday, sadly he went back into atrial fib last night. It pe rsists now. Already out of bed, tolerating arrhythmia well, no complaint. Hemoglobin and hematocrit are 8.0 and 22.9 respectively, her creatinine is 1.07 Objective: Temp: 35.6 C (96.1 F) BP: 125/67 mmHg Pulse: 123 Resp: 18 SpO2: 91 % on Min/Max Temp past 24 hours:Temp Av.2 C (97.1 F) Min: 35.6 C (96.1 F) Max: 3 6.7 C (98 F) Intake/Output Summary (Last 24 hours) at 01/01/14 0659 Last data filed at 01/01/14 0651 Gross per 24 hour Intake 1510 ml Output 2725 ml Net -1215 ml Wt. Admission: Weight: 74.6 kg (164 lb 7.4 oz) Wt. Current: Weight: 76.9 kg (169 lb 8.5 oz) Exam: General: Attractive older lady, already out of bed and chair. No complaint HEENT: Pale, mucous membranes are moist, not icteric or cyanotic . Cardiovascular: Atrial fib with controlled ventricular response (has had bradycardia) Respiratory: Excellent inspiratory effort, clear lungs (nonsmoker) Abdomen: Soft and normal. Hypoactive bowel sounds Extremities: No cyanosis or edema Skin: Dry Diagnostic studies: Available data and images were reviewed personally. See reports. Signi ficant results and findings are addressed here or in the Assessment and Plan. Assessment and Plan: Doing very well overall, unfortunately recurrent atrial fibrillation in spite of aggressive therapy. Will begin Coumadin. Patient Active Problem List Diagnosis HYPOTHYROIDISM HYPERLIPIDEMIA SLEEP APNEA OBSTRUCTIVE RESTLESS LEGS SYNDROME ESSENTIAL HYPERTENSION BENIGN CORONARY ARTERY DISEASE CARDIOMYOPATHY DILATED ISCHEMIC CHRONIC SINUSITIS CEREBRAL ISCHEMIA Nausea Allergic reaction to contrast dye NSTEMI (non-ST elevated myocardial infarction) (HCC) Acute systolic heart failure (HCC) Stress hyperglycemia A-fib (HCC) Acute blood loss anemia Hyponatremia Electronically signed by: Shahrzad Flores, 01/01/2014 6:59 [facility] ing, Steven Avelar MD - 12/31/2013 11:05 AM PDT PATIENT NAME: Chaya Chan : 1940: AGE: 73 y.o. ADMISSION DATE: 12/24/2013 Hospital Day: Hospital Day: 8 Code Status: Full Code ABBY Cade CARDIOLOGY DAILY PROGRESS NOTE [facility] PROBLEM: Coronary atherosclerosis of unspecified type of vessel, quartz valley or graft CHIEF COMPLAINT: Nausea and vomiting this am. No BM for several day. ASSESSMENT CORONARY ARTERY DISEASE Assessment & Plan Status post CABG x 4, POD # 7. EF 60% post op. Weight back down to 75.4 kg A-fib (HCC) Assessment & Plan Back into SR around 5 am. Currently SB 55. Brief asymptomatic HB with rates down to 34. Continue current dose of lopressor. HYPERLIPIDEMIA Assessment & Plan On statin ESSENTIAL HYPERTENSION BENIGN Assessment & Plan Well under control. Acute blood loss anemia Assessment & Plan On Fe+ IV and PO with significant nausea. H/H stable, Refuses PRBCs. PLAN Increase frequency of Zofran Add PPI Hold po iron for nasuea and vomiting. SUBJECTIVE DATA REVIEW OF SYSTEMS: Consitutional: night sweats CV: lower extremity edema Resp: no cough, shortness of breath, or wheezing GI: nausea with vomitting Skin: negative Musculoskeletal: negative OBJECTIVE DATA MEDICATIONS: Scheduled PRN aspirin 81 mg Oral Daily atorvaSTATin 40 mg Oral Daily ferric gluconate (FERRLECIT, NULECIT) IVPB 125 mg Intravenous Daily ferrous gluconate 324 mg Oral BID WC folic acid 1 mg Oral Daily [COMPLETED] furosemide (LASIX) IV 40 mg Intravenous BID (8 and 16) [COMPLETED] metoprolol tartrate 25 mg Oral Daily metoprolol tartrate 50 mg Oral BID pantoprazole 40 mg Oral QAM AC [COMPLETED] potassium 10 mEq Oral BID senna 8.6 mg Oral BID sotalol 80 mg Oral Q12H vitamin C 250 mg Oral BID WC acetaminophen, acetaminophen, acetaminophen, bisacodyl, diphenhydrAMINE, diphenhydrAMINE, diphenhydramine, HYDROcodone-acetaminophen, HYDROcodone-acetaminophen, bledferu-levmmuqdq-w acitracin, ondansetron, ondansetron, phenol-menthol LABS Recent Labs Basename 12/31/13 0459 12/30/13 0152 12/29/13 0428 WBC 9.0 -- 8.4 HGB 8.0* 7.9* 6.8* HCT 22.9* 23.1* 20.3* PLT 193 -- 148* NA 135 -- 129* K 3.7 -- 3.9 CL 99 -- 100 CO2 30* -- 26 BUN 11 -- 11 CREA 1.07* -- 0.86 GLU 86 -- 93 CALCIUM 8.6 -- 8.2* INR -- -- -- PT -- -- -- PTT -- -- -- CKMB -- -- -- TROPONINI -- -- -- BNP -- -- -- Lab Results Component Value Date CHOL 115 12/16/2013 LDL 48 12/16/2013 HDL 53 12/16/2013 TRIG 70 12/16/2013 VITAL SIGNS: Vitals Current Average / Min / Max Temp 35.7 C (96.2 F) Temp Min: 35.7 C (96.2 F) Max: 37.2 C (98.9 F) BP 96/56 mmHg BP Min: 96/56 Max: 154/70 HR 56 Pulse Av.9 Min: 56 Max: 113 RR 18 Resp Av.7 Min: 16 Max: 20 Sats 90 % SpO2 Min: 90 % Max: 99 % Weight 75.4 kg (166 lb 3.6 oz) Admit: 74.6 kg (164 lb 7.4 oz) INTAKE/OUTPUT Date 12/30/131900 - 12/31/13 0712/31/13700 - 01/01/14 07 Shift 3135-3672 24 Hour Total 7660-9559 1292-7040 24 Hour Total I N T A K E P.O. 400 1450 300 300 P.O. 150 1200 300 300 Free Water Intake (mL) 250 250 Shift Total (mL/kg) 400 (5.3) 1450 (19.2) 300 (4) 300 (4) O U T P U T Urine (mL/kg/hr) 1250 (1.4) 3125 (1.7) 200 200 Emesis/NG output 400 400 Shift Total (mL/kg) 1250 (16.6) 3125 (41.4) 600 (8) 600 (8) NET -850 -1675 -300 -300 Weight (kg) 75.4 75.4 75.4 75.4 75.4 PHYSICAL EXAM Admit Weight: Weight: 74.6 kg (164 lb 7.4 oz) Current weight: Weight: 75.4 kg (166 lb 3.6 oz) Body mass index is 27.66 kg/(m^2). GENERAL: No apparent distress HEENT: Mucous membranes moist. NECK: Supple. No JVD CHEST: Good inspiratory effort with decreased BS bases. CARDIAC: Normal S1 and S2. RRR, No murmurs, rubs or gallops. ABDOMEN: Soft, non-tender, nondistended with normal, active bowel sounds. EXTREMITIES: No clubbing, cyanosis, trace edema. PULSES: Distal pulses intact NEUROLOGIC: Non-focal. TELE: SB 55 Signed by: ABBY Cade 12/31/2013, 11:05 Patient was personally examined, chart reviewed and plan discussed with mid-level. I have reviewed the laboratory and physical findings documented above. Patient converted to sinus rhythm early this morning associated with heart rates as low as about 35. Currently heart rate around 55. She states overall she does feel better but is s till having some nausea. Has not had a decent bowel movement since surgery. Note that hematocrit is stable at 22.9. Physical exam: General: Alert and comfortable. Neck: No obvious elevation of jugular venous distention. Lungs: Clear to auscultation. Cardiovascular: Regular rhythm with normal S1, S2 and no appreciable murmur. Abdomen: Soft nontender. Not distended. Extremities: No edema or cyanosis. At this point, will continue sotalol but will decrease metoprolol back to 25 mg twice a day as I doubt that this was the reason she went into atrial fibrillation yesterday. Hopefully she will not have recurrent atrial fibrillation but if she does, would initiate anticoagula tion. Electronically signed by Steven Dyer MD, [facility] DATE/TIME: 12/31/2013 13:21 Tonia Patel [facility] - 12/31/2013 9:43 AM PDTDrs. Order received: Met with pt who lives with in [place]. Pt states they only have stairs enteri ng the home then they are on one level. Pt states is bldg a ramp. Pt states she do es not use oxygen at home. Pt states she usually does the cooking and cleaning but that her is capable. Pt st ates she is getting around well except when is dizzy. Will follow physical therapy eval and speak with . Constantine Almonte MD - 12/31/2013 7:01 AM PDTFormat ting of this note might be different from the original. [facility] CARDIOTHORACIC SURGERY PROGRESS NOTE Pt. Name/Age/: hCaya Chan 73 y.o. 1940 Med. Record Number: [id number] Date of admission: 12/24/2013 POD # 7 Procedure CORONARY ARTERY BYPASS GRAFT - CABG X4, WITH EVH - RIGHT AND LEFT SAPHENOUS VEIN,VOGEL Surgeon Aylin Subjective: The patient is comfortable in bed. C/o dizziness when walking. Still fairly wea k. Objective: Temp: 36.4 C (97.5 F) BP: 129/75 mmHg Pulse: 109 Resp: 20 SpO2: 91 % on Min/Max Temp past 24 hours:Temp Av.4 C (97.6 F) Min: 36.1 C (97 F) Max: 37. 2 C (98.9 F) Intake/Output Summary (Last 24 hours) at 12/31/13 0701 Last data filed at 12/31/13 0600 Gross per 24 hour Intake 1450 ml Output 3125 ml Net -1675 ml Wt. Admission: Weight: 74.6 kg (164 lb 7.4 oz) Wt. Current: Weight: 75.4 kg (166 lb 3.6 oz) Rhythm: SB 55-60 Neuro: Alert and oriented x3. Gait normal. Reflexes and motor strength normal and symmetri c. Cranial nerves 2-12 and sensation grossly intact. Heart: normal rate, regular rhythm, normal S1, S2, no murmurs, rubs, clicks or gallops Lungs: chest clear, no wheezing, rales, normal symmetric air entry, Heart exam - S1, S2 nor mal, no murmur, no gallop, rate regular Sternum: Stable Abdomen: soft, non-tender, without masses or organomegaly Extremities: peripheral pulses normal, no pedal edema, no clubbing or cyanosis Wounds: well approximated incision Labs Recent Labs Basename 12/31/13 0459 12/30/13 0152 12/29/13 0428 WBC 9.0 -- 8.4 HGB 8.0* 7.9* 6.8* HCT 22.9* 23.1* 20.3* PLT 193 -- 148* NA 135 -- 129* K 3.7 -- 3.9 CL 99 -- 100 CO2 30* -- 26 BUN 11 -- 11 CREA 1.07* -- 0.86 GLU 86 -- 93 CALCIUM 8.6 -- 8.2* INR -- -- -- PT -- -- -- PTT -- -- -- CKMB -- -- -- TROPONINI -- -- -- BNP -- -- -- Lab Results Component Value Date CHOL 115 12/16/2013 CHOL 165 12/08/2011 CHOL 181 06/27/2011 HDL 53 12/16/2013 HDL 46 12/08/2011 HDL 44 06/27/2011 TRIG 70 12/16/2013 TRIG 109 12/08/2011 TRIG 182 06/27/2011 Assessment and Plan: 1. S/P CABG x 4 POD # 7. Stable. Ambulatory but gets a little dizzy when standing. Get pt/o t evaluation. 2. In/out afib currently SB. On 50 mg metoprolol BID. 3. Post op anemia. Received 1 U PRBC's, also on I.V iron. H/H better today 8.0/22.9. 4. Progressive care with increasing mobility, aggressive IS use, and daily showers. D/C whe n rhythm stable and ok with cardiology. Electronically signed by: CASSIE Pandya Physician Cad Administrator [facility] Cardiothoracic Surgery 12/31/2013 7:01 [facility] Addendum: I have reviewed the note above, personally reviewed the available laboratory and imaging st udies and examined the patient. I agree with the assessment above, with the following additi ons. Had recurrence of Afib when Metoprolol decreased to 25 BID. Unfortunately she's somewhat b rady on 50 BID. ? Consider Rythmol instead? Per Cardiol. She's nauseated and still weak. Consider additional rbc's if she isn't looking better ammy rrow. I'm OK with holding Iron at the moment but she will need some. Electronically signed by: Constantine Barcenas M.D. CardioThoracic Surgery [facility] 12/31/2013 11:27 ing, Steven Avelar MD - 12/30/2013 11:48 AM PDT Cardiology progress NOTE [facility] 12/30/2013 Rounding Physician: ABBY Rowland Patient Name: Chaya Chan : 1940 Medical Record: [id number] Hospital Day: Hospital Day: 7 Code Status: Full Code Primary Hospital Problem: Coronary atherosclerosis of unspecified type of vessel, quartz valley or graft ASSESSMENT AND PLAN CORONARY ARTERY DISEASE Assessment & Plan Status post CABG x 4, POD # 4. EF 60% post op. Weight up from 74.8 kg to 77 kg with negativ e 8 liters fluid balance since admit. Creatinine stable at 0.84H/H up to 7.[address]let up to 148. On aspirin, BB and statin A-fib (HCC) Assessment & Plan Post op paroxysmal a fib. Chest discomfort when in A Fib. She was on Sotalol and Metoprolo l 50 mg BID Metoprolol decreased to 25 mg BID this morning. Back in A Fib about one hour ago with chest discomfort. SBP 154 Currently on ASA 81 mg. Low H/H HYPERLIPIDEMIA Assessment & Plan On statin ESSENTIAL HYPERTENSION BENIGN Assessment & Plan Well under control. Acute blood loss anemia Assessment & Plan H/H up to 7.9 and 23.1 from 6.8 and 20.3 yesterday, On Fe+ Hyponatremia Assessment & Plan Na was 127 and up to 129 yesterday Plan 1. Increase Metoprolol to 50 mg BID (which seems to hold her in SR) Give 25 mg x 1 dose now 2. Continue fluid restriction 3. Add Magnesium level to tomorrow AM lab 4. Continue cardiac rehab SUBJECTIVE DATA Chief Complaint: Tired, chest discomfort REVIEW OF SYSTEMS: Consitutional: fatigued and generally weak CV: Mild chest pain (with a fib with RVR) Resp: Mil shortness of breath GI: negative Skin: negative OBJECTIVE DATA VITAL SIGNS: Vitals Current Average / Min / Max Temp 36.3 C (97.4 F) Temp Min: 36.1 C (97 F) Max: 36.8 C (98.3 F) BP 154/70 mmHg BP Min: 90/62 Max: 156/87 HR 62 Pulse Av.7 Min: 56 Max: 117 RR 16 Resp Av Min: 16 Max: 20 Sats 95 % SpO2 Min: 90 % Max: 97 % Weight 77 kg (169 lb 12.1 oz) Admit: 74.6 kg (164 lb 7.4 oz) INTAKE/OUTPUT: Intake/Output Summary (Last 24 hours) at 12/30/13 1148 Last data filed at 12/30/13 1100 Gross per 24 hour Intake 490 ml Output 5600 ml Net -5110 ml Date 12/29/131900 - 12/30/13 0700 12/30/13 0701 - 12/31/13 0700 Shift 7945-2595 24 Hour Total 3302-3779 6633-5199 24 Hour Total I N T A K E P.O. 600 120 120 P.O. 600 120 120 Blood 250 250 Volume (Red Blood Cells (PRBC) - Transfuse) 250 250 Shift Total (mL/kg) 250 (3.2) 850 (11) 120 (1.6) 120 (1.6) O U T P U T Urine (mL/kg/hr) 2200 (2.4) 5800 (3.1) 1200 1200 Shift Total (mL/kg) 2200 (28.6) 5800 (75.3) 1200 (15.6) 1200 (15.6) NET -1950 -4950 -1080 -1080 Weight (kg) 77 77 77 77 77 MEDICATIONS: Scheduled PRN aspirin 81 mg Oral Daily atorvaSTATin 40 mg Oral Daily ferric gluconate (FERRLECIT, NULECIT) IVPB 125 mg Intravenous Daily ferrous gluconate 324 mg Oral BID WC folic acid 1 mg Oral Daily furosemide (LASIX) IV 40 mg Intravenous BID (8 and 16) [COMPLETED] furosemide (LASIX) IV 40 mg Intravenous Once metoprolol tartrate 25 mg Oral BID potassium 10 mEq Oral BID senna 8.6 mg Oral BID sotalol 80 mg Oral Q12H vitamin C 250 mg Oral BID WC acetaminophen, acetaminophen, acetaminophen, bisacodyl, diphenhydrAMINE, diphenhydrAMINE, diphenhydramine, HYDROcodone-acetaminophen, HYDROcodone-acetaminophen, iiqhmiqy-uhafavtro-h acitracin, ondansetron, ondansetron, phenol-menthol PHYSICAL EXAMINATION: GENERAL: Pleasant, awake, alert, in NAD NECK: Supple. indeterminate JVD CHEST: Good inspiratory effort with no crackles, ronchi, or wheezes. CARDIAC: Irregular rate and rhythm, normal S1, S2, tachy ABDOMEN: Soft, non tender, BT present EXTREMITIES: No clubbing, cyanosis, or edema. NEUROLOGIC: Non-focal. SKIN: no rash or skin breakdown MUSCULOSKELETAL: normal ambulation DIAGNOSTICS: Labs: Lab 12/30/13 0152 12/29/13 0428 12/28/13 0210 12/27/13 0352 WBC -- 8.4 9.0 9.4 HGB 7.9* 6.8* 7.0* -- HCT 23.1* 20.3* 20.1* -- Lab 12/29/13 0428 12/28/13 0210 12/27/13 0352 NA 129* 127* 130* K 3.9 4.2 4.4 CL 100 99 99 CO2 26 26 26 BUN 11 11 13 CREA 0.86 0.84 0.98 GLUCOSE -- -- -- CALCIUM 8.2* 8.2* 8.6 ALT -- -- -- AST -- -- -- ALKPHOS -- -- -- BILITOT -- -- -- No results found for this basename: CKTOTAL:3,TROPONINI:3,TROPONINT:3,CKMBINDEX:[address] 168 hours Lab 12/23/13 1358 APTT -- INR 1.0 PTT -- Lab Results Component Value Date HBA1C 5.5 12/23/2013 Lab Results Component Value Date CHOL 115 12/16/2013 CHOL 165 12/08/2011 CHOL 181 06/27/2011 Lab Results Component Value Date HDL 53 12/16/2013 HDL 46 12/08/2011 HDL 44 06/27/2011 Lab Results Component Value Date LDL 48 12/16/2013 Lab Results Component Value Date TRIG 70 12/16/2013 TRIG 109 12/08/2011 TRIG 182 06/27/2011 No results found for this basename: CHOLHDL Lab Results Component Value Date TSH 3.7 03/24/2011 Telemetry: Atrial fibrillation Please feel free to contact me with any questions, Electronically signed by: ABBY Rowland, DATE/TIME: 12/30/2013 11:48 [facility] Patient was personally examined, chart reviewed and plan discussed with mid-level. I have reviewed the laboratory and physical findings documented above. Patient went back into afib with VR around 105 this AM. Metoprolol increased back to 50 mg from 25 mg. Still on sotalol 80 mg BID. Note, she also received 1 unit RBCs yesterday and HCT up to 23. Physical exam: General: Alert and comfortable. Neck: No obvious elevation of jugular venous distention. Lungs: Clear to auscultation. Decreased BS bases. Cardiovascular: irregular rhythm with normal S1, S2 and no appreciable murmur. Extremities: No edema or cyanosis. Electronically signed by Steven yDer MD, [facility] DATE/TIME: 12/30/2013 14:13 Constantine Almonte MD - 12/30/2013 7:10 AM PDT [facility] Constantine Barcenas MD PATIENT NAME: Chaya Chan : 1940: AGE: 73 y.o. ADMISSION DATE: 12/24/2013 DAILY PROGRESS NOTE 12/30/2013 6 Days Post-Op Procedure: Procedure(s) with comments: CORONARY ARTERY BYPASS GRAFT - CABG X4, WITH EVH - RIGHT AND LEFT SAPHENOUS VEIN,VOGEL Surgeon(s): Sj J NisMD Brandon higgins PA Torrey A Vail, PA ASSESSMENT: [place] weak and listless yesterday. Agreed and received 1 U prbcs. H/H increased a bit today. Still volume overloaded. Weight up 3 kg NSR, rate slow. On a fair bit of BB. ? Contributing to lack of energy? PLAN: Continue diuresis Increase activity Try to wean off O2 ? Decrease Metoprolol to 25 BID? D/C pacer wires SCHEDULED MEDS: aspirin 81 mg Oral Daily atorvaSTATin 40 mg Oral Daily ferric gluconate (FERRLECIT, NULECIT) IVPB 125 mg Intravenous Daily ferrous gluconate 324 mg Oral BID WC folic acid 1 mg Oral Daily [COMPLETED] furosemide (LASIX) IV 40 mg Intravenous Once [COMPLETED] furosemide (LASIX) IV 40 mg Intravenous Once metoprolol tartrate 50 mg Oral BID [COMPLETED] potassium chloride 20 mEq Oral Once senna 8.6 mg Oral BID sotalol 80 mg Oral Q12H vitamin C 250 mg Oral BID WC IV INFUSIONS: SUBJECTIVE: General: alert and oriented [place] weak and listless yesterday, only walked "a little" Pain: well controlled. OBJECTIVE Vital sign ranges for last 24hrs: Input and output for last 24hrs: Temp: [36.1 C (97 F)-36.8 C (98.3 F)] 36.8 C (98.3 F) Pulse: [56-116] 65 Resp: [16-20] 18 BP: (90-156)/(55-88) 123/61 mmHg SpO2 Av.3 % Min: 92 % Max: 97 % Flow (L/Min)(Oxygen Therapy) Av.9 Min: 1 Max: 2 12/28 1901 - /16 0700 In: 1170 [P.O.:920] Out: 6751 [Urine:6750] Most recent vital: Temp: 36.8 C (98.3 F) BP: 123/61 mmHg Pulse: 65 Resp: 18 SpO2: 97 % Flow (L/Min)(Oxygen Therapy): 1 PHYSICAL EXAM Admit Weight: Weight: 74.6 kg (164 lb 7.4 oz) Current weight: Weight: 77 kg (169 lb 12.1 oz) CHEST: clear CARDIAC: reg, rate ~55 ABDOMEN: Soft, non-tender, nondistended EXTREMITIES: Warm NEUROLOGIC: Intact INCISIONS: Intact, dry. Chest Tubes: na LABS Recent Labs Basename 12/30/13 0152 12/29/13 0428 12/28/13 0210 WBC -- 8.4 9.0 HGB 7.9* 6.8* 7.0* HCT 23.1* 20.3* 20.1* PLT -- 148* 107* NA -- 129* 127* K -- 3.9 4.2 CL -- 100 99 CO2 -- 26 26 BUN -- 11 11 CREA -- 0.86 0.84 GLU -- 93 116* CALCIUM -- 8.2* 8.2* INR -- -- -- PT -- -- -- PTT -- -- -- CKMB -- -- -- TROPONINI -- -- -- BNP -- -- -- IMAGING: No results found. Electronically signed by: Constantine Barcenas M.D. CardioThoracic Surgery [facility] 12/30/2013, 7:10 Majo Wolfe RN - 12/29/2013 7:35 PM PDTPt sinus bradycardia most of afternoon - at rest 57 and w/ activity 67. Orders for 50mg bid lopressor and sotolol 80mg q 12 hours w/ ekg 2 hours post dosing. T/c to request parameters for holding metoprolol. Pacing wires secured to chest in syringe. Temporary pacer in window sill. Disconnected by Amarilys AUGUST w/ surgical group this am. Elec tronically signed by Majo Graff RN at 12/29/2013 7:38 PM Majo Wolfe RN - 5:15 PM PDTT/c to Charlie AUGUST. Pt w/ increased sob and decreased activity rehan sullivan. 12/28 walking 300ft, today only able to walk to BR before short of breath and fatigue d. Orders to type and cross and transfuse 1 unit PRBC's, followed by 40mg iv lasix and CBC i n the am. Andres Wolfe RN - 12/29/2013 2:06 PM PDTPt c/o back pain all shift. Tylenol not effective. Gave H ydrocodone 5/325mg po 1 tab given now. Pt called b/c c/o chest pain diffuse. Not in arm or jaw. T/c to [facility] [place] [facility]. Ordered EKG. Vitals as documented. Pt in afib rate in 120's. Color good. No diaphoresis. Blayne Montaño MD - 12/29/2013 9:38 AM PDTFormatting of this note mi ght be different from the original. Cardiology progress NOTE [facility] 12/29/2013 Rounding Physician: Blayne Alonso MD Patient Name: Chaya Chan : 1940 Medical Record: [id number] Hospital Day: Hospital Day: 6 Code Status: Full Code Primary Hospital Problem: Coronary atherosclerosis of unspecified type of vessel, [place] or graft ASSESSMENT AND PLAN CORONARY ARTERY DISEASE Assessment & Plan Status post CABG x 4. EF 60% post op. Continue statin therapy. Aspirin. Will stop beta bl ocker in favor of sotalol that has beta candice effects. Diurese today A-fib (HCC) Assessment & Plan Post op paroxysmal a fib. Now SR Sotalol 80mg po bid H/H 7 and 20 this morning No anticoagulation at present time HYPERLIPIDEMIA Assessment & Plan On statin ESSENTIAL HYPERTENSION BENIGN Assessment & Plan SBP well controlled at present. Acute blood loss anemia Assessment & Plan H/H 7 and 20, On Fe+ Hyponatremia Na level 129 today - stable Plan 1. Monitor H/H 2. Fluid restriction 1500 ml per 24 hours. PO lasix 3. Limit blood draws 4. Continue cardiac rehab 5. 12 leads EKG 2 hours after Sotalol dose SUBJECTIVE DATA Chief Complaint: Fatigue dontinues REVIEW OF SYSTEMS: Consitutional: fatigued and generally weak CV: negative Resp: positive for - shortness of breath GI: negative Skin: negative OBJECTIVE DATA VITAL SIGNS: Vitals Current Average / Min / Max Temp 36.2 C (97.2 F) Temp Min: 36 C (96.8 F) Max: 37.2 C (99 F) BP 148/87 mmHg BP Min: 110/64 Max: 148/87 HR 60 Pulse Av.3 Min: 56 Max: 100 RR 18 Resp Av Min: 16 Max: 18 Sats 96 % SpO2 Min: 93 % Max: 98 % Weight 78.4 kg (172 lb 13.5 oz) Admit: 74.6 kg (164 lb 7.4 oz) INTAKE/OUTPUT: Intake/Output Summary (Last 24 hours) at 12/29/13 0938 Last data filed at 12/29/13 0900 Gross per 24 hour Intake 1480 ml Output 1601 ml Net -121 ml Date 12/28/13 190 - 12/29/13 0700 12/29/13 0701 - 12/30/13 0700 Shift 4785-9993 24 Hour Total 6353-4272 1520-5660 24 Hour Total I N T A K E P.O. 320 1240 240 240 P.O. 240 240 Free Water Intake (mL) 320 1240 Shift Total (mL/kg) 320 (4.1) 1240 (15.8) 240 (3.1) 240 (3.1) O U T P U T Urine (mL/kg/hr) 950 (1) 2100 (1.1) 200 200 Stool 1 1 Shift Total (mL/kg) 951 (12.1) 2101 (26.8) 200 (2.6) 200 (2.6) NET -631 -861 40 40 Weight (kg) 78.4 78.4 78.4 78.4 78.4 MEDICATIONS: Scheduled PRN aspirin 81 mg Oral Daily atorvaSTATin 40 mg Oral Daily ferrous gluconate 324 mg Oral BID WC folic acid 1 mg Oral Daily senna 8.6 mg Oral BID sotalol 80 mg Oral Q12H vitamin C 250 mg Oral BID WC acetaminophen, acetaminophen, acetaminophen, bisacodyl, diphenhydrAMINE, diphenhydrAMINE, diphenhydramine, HYDROcodone-acetaminophen, HYDROcodone-acetaminophen, yrplmbif-tnjkmhfbc-k acitracin, ondansetron, ondansetron, phenol-menthol PHYSICAL EXAMINATION: GENERAL: pale looking, awake, alert, in NAD NECK: Supple. indeterminate JVD CHEST: Good inspiratory effort, BCTA CARDIAC: Regular rate and rhythm, normal S1, S2, ABDOMEN: Soft, non tender, BT present EXTREMITIES: No clubbing, cyanosis, or edema. NEUROLOGIC: Non-focal. SKIN: Left SC Right groin MUSCULOSKELETAL: normal ambulation DIAGNOSTICS: Labs: Lab 12/29/138 12/28/13 0210 12/27/13 0352 WBC 8.4 9.0 9.4 HGB 6.8* 7.0* 7.5* HCT 20.3* 20.1* 22.0* Lab 12/29/13 0428 12/28/13 0210 12/27/13 0352 NA 129* 127* 130* K 3.9 4.2 4.4 CL 100 99 99 CO2 26 26 26 BUN 11 11 13 CREA 0.86 0.84 0.98 GLUCOSE -- -- -- CALCIUM 8.2* 8.2* 8.6 ALT -- -- -- AST -- -- -- ALKPHOS -- -- -- BILITOT -- -- -- No results found for this basename: CKTOTAL:3,TROPONINI:3,TROPONINT:3,CKMBINDEX:[address] 168 hours Lab 12/23/13 1358 APTT -- INR 1.0 PTT -- Lab Results Component Value Date HBA1C 5.5 12/23/2013 Lab Results Component Value Date CHOL 115 12/16/2013 CHOL 165 12/08/2011 CHOL 181 06/27/2011 Lab Results Component Value Date HDL 53 12/16/2013 HDL 46 12/08/2011 HDL 44 06/27/2011 Lab Results Component Value Date LDL 48 12/16/2013 Lab Results Component Value Date TRIG 70 12/16/2013 TRIG 109 12/08/2011 TRIG 182 06/27/2011 No results found for this basename: CHOLHDL Lab Results Component Value Date TSH 3.7 03/24/2011 Telemetry: Normal sinus rhythm Please feel free to contact me with any questions, Electronically signed by: Blayne Alonso MD, DATE/TIME: 12/29/2013 9:38 [facility] Edi Garrido MD - 12/29/2013 9:17 AM PDT [facility] CARDIOTHORACIC SURGERY PROGRESS NOTE Pt. Name/Age/: Chaya Chan 73 y.o. 1940 Med. Record Number: [id number] Date of admission: 12/24/2013 Procedure Coronary artery bypass graft times 4 with left internal mammary artery to the left anterior descending, aortocoronary reverse saphenous vein grafts to the obtuse marginal branch of th e circumflex, diagonal branch of the left anterior descending, and right coronary artery wit h endoscopic vein harvest of the right and left thigh greater saphenous vein 5 Days Post-Op Surgeon Surgeon(s): MD Brandon Amaya PA Torrey A Vail, PA Subjective: feels weak and tired. Denies pain or SOB Objective: Temp: 36.2 C (97.2 F) BP: 148/87 mmHg Pulse: 60 Resp: 18 SpO2: 96 % on Min/Max Temp past 24 hours:Temp Av.4 C (97.5 F) Min: 36 C (96.8 F) Max: 37. 2 C (99 F) Intake/Output Summary (Last 24 hours) at 12/29/13 0917 Last data filed at 12/29/13 0722 Gross per 24 hour Intake 1240 ml Output 1601 ml Net -361 ml Wt. Admission: Weight: 74.6 kg (164 lb 7.4 oz) Wt. Current: Weight: 78.4 kg (172 lb 13. 5 oz) Rhythm: SR 66 Neuro: negative Heart: normal rate and regular rhythm Lungs: chest clear, no wheezing, rales, normal symmetric air entry Sternum: stable Abdomen: soft, non-tender, without masses or organomegaly Extremities: positive BLE edema Wounds: Clean, dry, and intact Medications: aspirin 81 mg Oral Daily atorvaSTATin 40 mg Oral Daily ferrous gluconate 324 mg Oral BID folic acid 1 mg Oral Daily metoprolol tartrate 75 mg Oral BID senna 8.6 mg Oral BID sotalol 80 mg Oral Q12H vitamin C 250 mg Oral BID Labs Recent Labs Basename 12/29/13 0428 12/28/13 0210 12/27/13 0352 WBC 8.4 9.0 9.4 HGB 6.8* 7.0* 7.5* HCT 20.3* 20.1* 22.0* PLT 148* 107* 99* NA 129* 127* 130* K 3.9 4.2 4.4 CL 100 99 99 CO2 26 26 26 BUN 11 11 13 CREA 0.86 0.84 0.98 GLU 93 116* 125* CALCIUM 8.2* 8.2* 8.6 INR -- -- -- PT -- -- -- PTT -- -- -- CKMB -- -- -- TROPONINI -- -- -- BNP -- -- -- Lab Results Component Value Date CHOL 115 12/16/2013 CHOL 165 12/08/2011 CHOL 181 06/27/2011 HDL 53 12/16/2013 HDL 46 12/08/2011 HDL 44 06/27/2011 TRIG 70 12/16/2013 TRIG 109 12/08/2011 TRIG 182 06/27/2011 Imaging: none today Assessment and Plan: 1. S/P CABG x 4 2. Parox. Atrial fib. On sotalol and metoprolol. SR since 11 pm. Last night. Spoke to Dr. Roman lacey, he will d/c the metoprolol. If ryhthm stable then will d/c pw in am. 3. Acute blood loss anemia - pt does not want blood transfusion "because of the all the ba d stuff in it". Will add IV iron, she is also 4 kg over 4. Vol. Long - diurese 5. Progressive care with increasing mobility, aggressive IS use, and daily showers. 6. Home hopefully next few days Electronically signed by: CASSIE Thomas Physician Cad Administrator [facility] Cardiothoracic Surgery 12/29/2013 9:17 [facility] Patient does not want transfusion. There is no clinical indication. Home soon Blayne Montaño MD - 12/28/2013 12:06 PM PDTFormatting of this note might be different from the origin al. Cardiology progress NOTE [facility] 12/28/2013 Rounding Physician: ABBY Rowland Patient Name: Chaya Chan : 1940 Medical Record: [id number] Hospital Day: Hospital Day: 5 Code Status: Full Code Primary Hospital Problem: Coronary atherosclerosis of unspecified type of vessel, [place] or graft ASSESSMENT AND PLAN CORONARY ARTERY DISEASE Assessment & Plan Status post CABG x 4, POD # 4. EF 60% post op. Weight up from 74.8 kg to 77.5 kg with negat dalton 1700 ml fluid balance since admit. H/H 7 and 20 today. SBP 110s - 130s A-fib (HCC) Assessment & Plan Post op paroxysmal a fib, the most recent episode was this morning, now SR Currently on Metoprolol and Sotalol. QTC 410 H/H 7 and 20 this morning No anticoagulation at present time HYPERLIPIDEMIA Assessment & Plan On statin ESSENTIAL HYPERTENSION BENIGN Assessment & Plan SBP well controlled at present. Acute blood loss anemia Assessment & Plan H/H 7 and 20, On Fe+ Hyponatremia Na level 127 today Plan 1. Monitor H/H 2. Fluid restriction 1500 ml per 24 hours 3. CBC and BMP in AM 4. Continue cardiac rehab 5. 12 leads EKG 2 hours after Sotalol dose SUBJECTIVE DATA Chief Complaint: Shortness of breath REVIEW OF SYSTEMS: Consitutional: fatigued and generally weak CV: negative Resp: positive for - shortness of breath GI: negative Skin: negative OBJECTIVE DATA VITAL SIGNS: Vitals Current Average / Min / Max Temp 36 C (96.8 F) Temp Min: 36 C (96.8 F) Max: 37.2 C (98.9 F) BP 111/63 mmHg BP Min: 111/63 Max: 145/81 HR 58 Pulse Av.6 Min: 58 Max: 115 RR 16 Resp Av.3 Min: 16 Max: 18 Sats 97 % SpO2 Min: 91 % Max: 97 % Weight 77.5 kg (170 lb 13.7 oz) Admit: 74.6 kg (164 lb 7.4 oz) INTAKE/OUTPUT: Intake/Output Summary (Last 24 hours) at 12/28/13 1206 Last data filed at 12/28/13 1000 Gross per 24 hour Intake 2130 ml Output 5175 ml Net -3045 ml Date 12/27/13 1901 - 12/28/13 0712/28/13 07 - 12/29/13 0700 Shift 4501-1511 24 Hour Total 3375-7923 6210-6345 24 Hour Total I N T A K E P.O. 1210 1570 800 800 P.O. 960 1320 Free Water Intake (mL) 250 250 800 800 Shift Total (mL/kg) 1210 (15.6) 1570 (20.3) 800 (10.3) 800 (10.3) O U T P U T Urine (mL/kg/hr) 3200 (3.4) 5275 (2.8) 900 900 Shift Total (mL/kg) 3200 (41.3) 5275 (68.1) 900 (11.6) 900 (11.6) NET -1990 -3705 -100 -100 Weight (kg) 77.5 77.5 77.5 77.5 77.5 MEDICATIONS: Scheduled PRN aspirin 81 mg Oral Daily atorvaSTATin 40 mg Oral Daily ferrous gluconate 324 mg Oral BID WC folic acid 1 mg Oral Daily metoprolol tartrate 75 mg Oral BID senna 8.6 mg Oral BID sotalol 40 mg Oral Q12H vitamin C 250 mg Oral BID WC acetaminophen, acetaminophen, acetaminophen, bisacodyl, diphenhydrAMINE, diphenhydrAMINE, diphenhydramine, HYDROcodone-acetaminophen, HYDROcodone-acetaminophen, gnevdfjh-cmrhlvqyq-w acitracin, ondansetron, ondansetron, phenol-menthol PHYSICAL EXAMINATION: GENERAL: pale looking, awake, alert, in NAD NECK: Supple. indeterminate JVD CHEST: Good inspiratory effort with a few crackles at bases CARDIAC: Regular rate and rhythm, normal S1, S2, ABDOMEN: Soft, non tender, BT present EXTREMITIES: No clubbing, cyanosis, or edema. NEUROLOGIC: Non-focal. SKIN: Left SC Right groin MUSCULOSKELETAL: normal ambulation DIAGNOSTICS: Labs: Lab 12/28/13 02112/27/13 03512/25/13 0705 12/25/13 0346 WBC 9.0 9.4 -- 11.6* HGB 7.0* 7.5* 8.2* -- HCT 20.1* 22.0* -- 24.3* Lab 12/28/13 02112/27/13 0352 12/25/13 0705 12/25/13 0341 NA 127* 130* -- 139 K 4.2 4.4 4.6 -- CL 99 99 -- 110* CO2 26 26 -- 23 BUN 11 13 -- 10 CREA 0.84 0.98 -- 1.08* GLUCOSE -- -- -- -- CALCIUM 8.2* 8.6 -- 8.4* ALT -- -- -- -- AST -- -- -- -- ALKPHOS -- -- -- -- BILITOT -- -- -- -- No results found for this basename: CKTOTAL:3,TROPONINI:3,TROPONINT:3,CKMBINDEX:[address] 168 hours Lab 12/23/13 1358 APTT -- INR 1.0 PTT -- Lab Results Component Value Date HBA1C 5.5 12/23/2013 Lab Results Component Value Date CHOL 115 12/16/2013 CHOL 165 12/08/2011 CHOL 181 06/27/2011 Lab Results Component Value Date HDL 53 12/16/2013 HDL 46 12/08/2011 HDL 44 06/27/2011 Lab Results Component Value Date LDL 48 12/16/2013 Lab Results Component Value Date TRIG 70 12/16/2013 TRIG 109 12/08/2011 TRIG 182 06/27/2011 No results found for this basename: CHOLHDL Lab Results Component Value Date TSH 3.7 03/24/2011 Telemetry: Normal sinus rhythm Please feel free to contact me with any questions, Electronically signed by: ABBY Rowland, DATE/TIME: 12/28/2013 12:06 [facility] Addendum: I have seen and examined the patient and agree with the above findings and assessment. My pertinent physical exam findings include: GEN: NAD Neck: No JVD Chest: Normal respiratory effort, bilaterally clear to auscultation. Heart: Irregular Ext: No cyanosis or edema. 2+ bilateral radial pulses. Plan: Back in afib this am. I will increase sotalol - has anaphylactic reaction to iodine so alexys iding amiodarone. Holding on tranfusion - ef stable. Blayne Alonso MD [facility] Edi Garrido MD - 12/28/2013 10:11 AM PDTUp in a chair Went back into Af ventricular response around 100 now Walked to the bathroom Heart OK Lungs OK Incisions are ok Will leave pacers in for now Hb is 20.1 but she is doing OK so there is no indication for transfusion Is already on Fe MVT I doubt the utility of stool guiacs. Need to minimize blood draws Blayne Montaño MD - 12/27/2013 1:39 PM PDTFo rmatting of this note might be different from the original. PATIENT NAME: Chaya Chan : 1940: AGE: 73 y.o. ADMISSION DATE: 12/24/2013 Hospital Day: Hospital Day: 4 Code Status: Full Code [facility] F[facility] CARDIOLOGY DAILY PROGRESS NOTE PRIMARY HOSPITAL PROBLEM: Coronary atherosclerosis of unspecified type of vessel, [place] or graft CHIEF COMPLAINT: "Better" today - more energy and less pain. ASSESSMENT CORONARY ARTERY DISEASE Assessment & Plan POD #3 CABG X 4 with preserved EF. Doing well with exception of post-op a-fib as noted. V olume up 1.2 liters - brisk diuresis yesterday after IV furosemide. PLAN: Continue ASA, BB, statin. Watch volume status. A-fib (HCC) Assessment & Plan 2 post-op episodes of a-fib, one yesterday and one this AM lasting around 2-3 hours. Curre ntly on metoprolol 75 BID and loaded with 0.5 mg digoxin yesterday. Normal renal function. Back in SR at present time. PLAN: Start daily digoxin. ? Anticoagulate in light of 2 episodes - problem is her anemia currently (see below). HYPERLIPIDEMIA Assessment & Plan Continue statin therapy - had her dose of atorvastatin reduced on 12/17/13 from 80 to 40 mg s econdary to low LDL - will leave at current dose with recheck in 6-8 weeks. PLAN: Continue statin therapy. ESSENTIAL HYPERTENSION BENIGN Assessment & Plan SBP well controlled at present. PLAN: Continue current meds. ACUTE BLOOD LOSS ANEMIA H & H trending down as noted: Ref. Range 12/24/2013 19:26 12/25/2013 00:36 12/25/2013 03:46 12/27/2013 03:52 RBC: No range found 2.83 (L) 2.80 (L) 2.59 (L) 2.36 (L) Hgb No range found 8.8 (L) 8.7 (L) 8.1 (L) 7.5 (L) On Fe+ per CTS - stool guaiacs pending. PLAN: Recheck in the AM. PLAN Start daily dose digoxin. Watch H & H BMP in the AM SUBJECTIVE DATA REVIEW OF SYSTEMS: Consitutional: fatigued and generally weak CV: negative Resp: negative GI: negative Skin: negative Musculoskeletal: negative OBJECTIVE DATA TELEMETRY: NSR now - second episode of a-fib this AM, lasted 2-3 hours. MEDICATIONS: Scheduled PRN aspirin 81 mg Oral Daily atorvaSTATin 40 mg Oral Daily [COMPLETED] digoxin (LANOXIN) IV 250 mcg Intravenous Q6H ferrous gluconate 324 mg Oral BID WC folic acid 1 mg Oral Daily metoprolol tartrate 75 mg Oral BID senna 8.6 mg Oral BID vitamin C 250 mg Oral BID WC acetaminophen, acetaminophen, acetaminophen, bisacodyl, diphenhydrAMINE, diphenhydrAMINE, diphenhydramine, HYDROcodone-acetaminophen, HYDROcodone-acetaminophen, cegxyitf-menkdgkog-d acitracin, ondansetron, ondansetron, phenol-menthol IMAGING: No results found. LABS Recent Labs Basename 12/27/13 0352 12/25/13 0705 12/25/13 0346 12/25/13 0341 12/25/13 0036 12/24/13 183 3 WBC 9.4 -- 11.6* -- 13.0* -- HGB 7.5* 8.2* 8.1* -- -- -- HCT 22.0* -- 24.3* -- 26.6* -- PLT 99* -- 123* -- 134* -- NA 130* -- -- 139 -- 138 K 4.4 4.6 -- 3.9 -- -- CL 99 -- -- 110* -- -- CO2 26 -- -- 23 -- -- BUN 13 -- -- 10 -- -- CREA 0.98 -- -- 1.08* -- -- GLU 125* 141* -- 122* -- -- CALCIUM 8.6 -- -- 8.4* -- -- INR -- -- -- -- -- -- PT -- -- -- -- -- -- PTT -- -- -- -- -- -- CKMB -- -- -- -- -- -- TROPONINI -- -- -- -- -- -- BNP -- -- -- -- -- -- Lab Results Component Value Date CHOL 115 12/16/2013 LDL 48 12/16/2013 HDL 53 12/16/2013 TRIG 70 12/16/2013 VITAL SIGNS: Vitals Current Average / Min / Max Temp 36.4 C (97.6 F) Temp Min: 36.3 C (97.3 F) Max: 36.8 C (98.3 F) BP 118/66 mmHg BP Min: 109/62 Max: 159/97 HR 102 Pulse Av.4 Min: 61 Max: 132 RR 18 Resp Av.7 Min: 16 Max: 18 Sats 95 % SpO2 Min: 92 % Max: 95 % Weight 73.1 kg (161 lb 2.5 oz) Admit: 74.6 kg (164 lb 7.4 oz) INTAKE/OUTPUT Date 12/26/131900 - 12/27/13 0712/27/13700 - 12/28/13 0700 Shift 7405-5711 24 Hour Total 4790-3956 3440-8007 24 Hour Total I N T A K E P.O. 240 1440 240 240 P.O. 240 1320 240 240 Free Water Intake (mL) 120 Shift Total (mL/kg) 240 (3.3) 1440 (19.7) 240 (3.3) 240 (3.3) O U T P U T Urine (mL/kg/hr) 500 (0.6) 900 (0.5) 1100 1100 Shift Total (mL/kg) 500 (6.8) 900 (12.3) 1100 (15) 1100 (15) NET -260 662 -733 -863 Weight (kg) 73.1 73.1 73.1 73.1 73.1 PHYSICAL EXAM Admit Weight: Weight: 74.6 kg (164 lb 7.4 oz) Current weight: Weight: 73.1 kg (161 lb 2.5 oz) Body mass index is 26.82 kg/(m^2). GENERAL: Pleasant, pale HEENT: Mucous membranes moist. NECK: Supple. No JVD CHEST: Good inspiratory effort with no crackles, ronchi, or wheezes. Diminished in base s CARDIAC: Normal S1 and S2. RRR, No murmurs, rubs or gallops. ABDOMEN: Soft, non-tender, nondistended with normal, active bowel sounds. EXTREMITIES: No clubbing, cyanosis,but with trace LE edema PULSES: Distal pulses intact NEUROLOGIC: Non-focal. Signed by: ABBY Farnsworth 12/27/2013, 13:44 Addendum: I have seen and examined the patient and agree with the above findings and assessment. My pertinent physical exam findings include: GEN: NAD Neck: No JVD Chest: Normal respiratory effort, bilaterally clear to auscultation. Heart: Regular rate and rhythm, No murmurs, rubs or gallops. Ext: No cyanosis or edema. 2+ bilateral radial pulses. Plan: 1. Patient back in sinus rhythm. Will hold digoxin and prefer to use low dose sotalol. W ill need BID ekg to monitor QT. Hold anticoagulation 2/2 significant anemia. Blayne Alonso MD [facility] isco, Sj Campbell MD - 0 12/27/2013 7:10 AM PDT [facility] CARDIOTHORACIC SURGERY PROGRESS NOTE Pt. Name/Age/: Chaya Chan 73 y.o. 1940 Med. Record Number: [id number] Date of admission: 12/24/2013 POD # 3 Procedure CABG x 4 Surgeon Aylin Subjective: The patient is comfortable in bed. Pain controlled. Objective: Temp: 36.3 C (97.3 F) BP: 129/61 mmHg Pulse: 61 Resp: 16 SpO2: 93 % on Min/Max Temp past 24 hours:Temp Av.6 C (97.8 F) Min: 36.3 C (97.3 F) Max: 3 6.8 C (98.3 F) Intake/Output Summary (Last 24 hours) at 12/27/13 0711 Last data filed at 12/27/13 0500 Gross per 24 hour Intake 1440 ml Output 900 ml Net 540 ml Wt. Admission: Weight: 74.6 kg (164 lb 7.4 oz) Wt. Current: Weight: 73.1 kg (161 lb 2.5 oz) Rhythm: Afib Neuro: Alert and oriented x3. Gait normal. Reflexes and motor strength normal and symmetri c. Cranial nerves 2-12 and sensation grossly intact. Heart: Irregular Lungs: chest clear, no wheezing, rales, normal symmetric air entry, Heart exam - S1, S2 nor mal, no murmur, no gallop, rate regular Sternum: Stable Abdomen: soft, non-tender, without masses or organomegaly Extremities: peripheral pulses normal, no pedal edema, no clubbing or cyanosis Wounds: well approximated incision Imaging: Chest X-Ray: No new imaging. Labs Recent Labs Basename 12/27/13 0352 12/25/13 0705 12/25/13 0346 12/25/13 0341 12/25/13 0036 12/24/13 183 3 WBC 9.4 -- 11.6* -- 13.0* -- HGB 7.5* 8.2* 8.1* -- -- -- HCT 22.0* -- 24.3* -- 26.6* -- PLT 99* -- 123* -- 134* -- NA 130* -- -- 139 -- 138 K 4.4 4.6 -- 3.9 -- -- CL 99 -- -- 110* -- -- CO2 26 -- -- 23 -- -- BUN 13 -- -- 10 -- -- CREA 0.98 -- -- 1.08* -- -- GLU 125* 141* -- 122* -- -- CALCIUM 8.6 -- -- 8.4* -- -- INR -- -- -- -- -- -- PT -- -- -- -- -- -- PTT -- -- -- -- -- -- CKMB -- -- -- -- -- -- TROPONINI -- -- -- -- -- -- BNP -- -- -- -- -- -- Lab Results Component Value Date CHOL 115 12/16/2013 CHOL 165 12/08/2011 CHOL 181 06/27/2011 HDL 53 12/16/2013 HDL 46 12/08/2011 HDL 44 06/27/2011 TRIG 70 12/16/2013 TRIG 109 12/08/2011 TRIG 182 06/27/2011 Assessment and Plan: 1. S/P CABG x 4 POD # 3 Stable. Neurologically intact. 2. Back in AFib this a.m V-rate 110-130. On Digoxin ? Increase dose per cardiology. Will in crease BBlocker to 75mg BID. Allergy to Cardizem. Keep TPW in for now. 3. Post op anemia- Fe, Folate. Vit-C. Will check FOB. H/H dropped today 8.1/24.3> 7.5/22.0. Monitor. 4. Progressive care with increasing mobility, aggressive IS use, and daily showers. Needs t o ambulate. Will order PT. Electronically signed by: CASSIE Pandya Physician Cad Administrator [facility] Cardiothoracic Surgery 12/27/2013 7:11 [facility] Cheerful and up in chair. Back in NSR. Off oxygen. Hopefully home tomorr or Monday. Sj Viera [facility], Henrique Hsieh D - 12/26/2013 12:19 PM PDT PATIENT NAME: Chaya Chan : 1940: AGE: 73 y.o. ADMISSION DATE: 12/24/2013 Hospital Day: Hospital Day: 3 Code Status: Full Code Asad Ge MD CARDIOLOGY DAILY PROGRESS NOTE PRIMARY [facility]PITAL PROBLEM: Coronary atherosclerosis of unspecified type of vessel, quartz valley or graft CHIEF COMPLAINT: up in chair, no pain at this time, not aware of increased HR. ASSESSMENT CORONARY ARTERY DISEASE Assessment & Plan POD #2CABG X 4. EF 60% Continue ASA, BB, statin. Volume long. A-fib (HCC) Assessment & Plan New onset today around noon with HR 120's. Will increase metoprolol and add digoxin HYPERLIPIDEMIA Assessment & Plan Continue statin therapy - had her dose of atorvastatin reduced on 12/17/13 from 80 to 40 mg s econdary to low LDL - will leave at current dose with recheck in 6-8 weeks. PLAN: Continue statin therapy. ESSENTIAL HYPERTENSION BENIGN Assessment & Plan SBP well controlled at present, ranging from 110-120. Continue current meds. PLAN New onset Afib, increase metoprolol dose, digoxin added. Lasix given this am. I would actually favor the use of amiodarone if she continues to drop in and out of this in the postoperative period. SUBJECTIVE DATA REVIEW OF SYSTEMS: Consitutional: fatigued and generally weak CV: Negative not aware of increased HR Resp: no cough, shortness of breath, or wheezing GI: Denies nausea, vomiting or diarrhea. Skin: negative Musculoskeletal: negative OBJECTIVE DATA MEDICATIONS: Scheduled PRN aspirin 81 mg Oral Daily atorvaSTATin 40 mg Oral Daily digoxin (LANOXIN) IV 250 mcg Intravenous Q6H ferrous gluconate 324 mg Oral BID WC folic acid 1 mg Oral Daily [COMPLETED] furosemide (LASIX) IV 40 mg Intravenous Once insulin lispro 0-6 Units Subcutaneous 4x Daily AC and HS insulin lispro 0-150 Units Subcutaneous TID AC metoprolol tartrate 50 mg Oral BID [COMPLETED] potassium 10 mEq Oral Once senna 8.6 mg Oral BID vitamin C 250 mg Oral BID WC sodium chloride 0.9% Stopped (12/26/13 1030) acetaminophen, acetaminophen, acetaminophen, bisacodyl, dextrose, dextrose, diphenhydrAMIN E, diphenhydrAMINE, diphenhydramine, HYDROcodone-acetaminophen, HYDROcodone-acetaminophen, n urgoyvy-plaaexzfc-sakkfcakaw, ondansetron, ondansetron, phenol-menthol LABS Recent Labs Basename 12/25/13 0705 12/25/13 0346 12/25/13 0341 12/25/13 0036 12/24/13 2220 12/24/13 192 6 12/24/13 1833 12/24/13 1748 WBC -- 11.6* -- 13.0* -- 7.3 -- -- HGB 8.2* 8.1* -- 8.7* -- -- -- -- HCT -- 24.3* -- 26.6* -- 26.4* -- -- PLT -- 123* -- 134* -- 98* -- -- NA -- -- 139 -- -- -- 138 135 K 4.6 -- 3.9 3.6 -- -- -- -- CL -- -- 110* -- -- -- -- -- CO2 -- -- 23 -- -- -- -- -- BUN -- -- 10 -- -- -- -- -- CREA -- -- 1.08* -- -- -- -- -- GLU 141* -- 122* -- 185* -- -- -- CALCIUM -- -- 8.4* -- -- -- -- -- INR -- -- -- -- -- -- -- -- PT -- -- -- -- -- -- -- -- PTT -- -- -- -- -- -- -- -- CKMB -- -- -- -- -- -- -- -- TROPONINI -- -- -- -- -- -- -- -- BNP -- -- -- -- -- -- -- -- Lab Results Component Value Date CHOL 115 12/16/2013 LDL 48 12/16/2013 HDL 53 12/16/2013 TRIG 70 12/16/2013 VITAL SIGNS: Vitals Current Average / Min / Max Temp 36.8 C (98.3 F) Temp Min: 36.3 C (97.3 F) Max: 36.8 C (98.3 F) BP 109/62 mmHg BP Min: 109/62 Max: 133/75 HR 66 Pulse Av.5 Min: 64 Max: 110 RR 16 Resp Av Min: 16 Max: 16 Sats 95 % SpO2 Min: 92 % Max: 97 % Weight 72.9 kg (160 lb 11.5 oz) Admit: 74.6 kg (164 lb 7.4 oz) INTAKE/OUTPUT Date 12/25/131900 - 12/26/13 0712/26/13700 - 12/27/13 0700 Shift 1727-0521 24 Hour Total 24 Hour Total I N T A K E P.O. 840 840 840 P.O. 840 840 840 Shift Total (mL/kg) 840 (11.5) 840 (11.5) 840 (11.5) O U T P U T Urine (mL/kg/hr) 400 (0.5) 765 (0.4) 400 400 Chest Tube 20 Shift Total (mL/kg) 400 (5.5) 785 (10.8) 400 (5.5) 400 (5.5) NET -400 55 440 440 Weight (kg) 72.9 72.9 72.9 72.9 72.9 PHYSICAL EXAM Admit Weight: Weight: 74.6 kg (164 lb 7.4 oz) Current weight: Weight: 72.9 kg (160 lb 11.5 oz) Body mass index is 26.74 kg/(m^2). GENERAL: Pleasant, talkative in no apparent distress HEENT: Mucous membranes moist. NECK: Supple. No JVD CHEST: Good inspiratory effort with no crackles, ronchi, or wheezes. CARDIAC: Normal S1 and S2. Irregular, tachy, No murmurs, rubs or gallops. ABDOMEN: Soft, non-tender, nondistended with normal, active bowel sounds. EXTREMITIES: No clubbing, cyanosis, 1+ edema. PULSES: Distal pulses intact NEUROLOGIC: Non-focal. TELE: Afib Signed by: ABBY Cade 12/26/2013, 12:21 During the hospital visit, I personally interviewed and examined the patient. I confirmed t he shepherd components of the history and PE. I reviewed the note as written by the midlevel prov ider, and discussed the patient with the provider team. I agree with the impressions and jennifer ns and have listed any needed clarifications. Electronically Signed by: Asad Ge MD 12/26/2013 17:55 Sonia Schultz [facility] [employer] ATTENDANT - 12/26/2013 10:33 AM PDT [facility] Blood Sugar Management Progress Note Pt. Name/Age/: Chaya Chan 73 y.o. 1940 Date of admission: 12/24/2013 Hospitalized for Coronary atherosclerosis of unspecified type of vessel, quartz valley or graft Admitting Physician: Sj Viera MD Code Status: Full Code Diabetes Chief complaint: ongoing blood glucose managment Consulted by: Dr. Viera for BG management Assessment: 1. Stress Hyperglycemia, some insulin need at 1 unit per hour to maintain BG in optimal ra nge. 2. S/P 4 vessel by pass grafting POD #2, followed by cardiac surgeon Plan: Basal insulin: none Nutritional insulin: Humalog 1:20 Corrective insulin: Humalog Discontinue insulin gtt Continue to assess BG and intake, modify insulin doses as needed BG data: Last 10 glucose values: Lab 12/26/13 0932 12/26/13 0728 12/26/13 0524 12/26/13 0300 12/26/13 0037 12/25/13 2329 05/30 2228 12/25/13 2155 12/25/13 2040 12/25/13 2032 12/25/13 0705 12/25/13 0341 12/24/13 22 20 12/24/13 2105 POCGLU 114* 93 102* 108* 95 99 105* 123* 162* 163* -- -- -- -- GLU -- -- -- -- -- -- -- -- -- -- 141* 122* 185* 146* Lab Results Component Value Date HBA1C 5.5 12/23/2013 Subjective: S/P Bypass grafting Diabetic HPI: No hx of DM Modifying factors: OHS Present symptoms related to BG's: none Diet: Consistent carb Home diabetes medications:none Review of Systems: General: Fatigue Nutritional: Poor Cardiovascular: No c/o chest pain Pulmonary: No dyspnea GI: No NVD : No dysuria Neuro: No headache or blurred vision Musculoskeletal: No joint swelling Objective: Physical Examination: Temp: [36.3 C (97.3 F)-37.2 C (99 F)] 36.4 C (97.6 F) Pulse: [63-72] 72 Resp: [11-16] 16 BP: (102-131)/(55-74) 131/74 mmHg Body mass index is 26.74 kg/(m^2). General appearance - Alert, no acute distress, obese Mental status - Answers questions promptly and appropriately, oriented to person, place, a nd time Chest - Normal effort, lungs clear to auscultation, no wheezes, rales or rhonchi Cardiovascular - Normal rate, regular rhythm, no edema Abdomen - soft, nontender, non-distended, normal bowel sounds Musculoskeletal - No focal weakness, moves all 4 extremities Skin - no new rash Selected Labs/Studies: Lab 12/25/13 0705 12/25/13 0346 12/25/13 0036 12/24/13221912/24/13192512/23/13 1358 WBC -- 11.6* 13.0* -- 7.3 6.6 HGB 8.2* 8.1* 8.7* 9.4* -- -- HCT -- 24.3* 26.6* -- 26.4* 35.7 PLT -- 123* 134* -- 98* 160 Lab 12/25/13 0705 12/25/13 0341 12/25/13 0036 12/24/13221912/24/13210412/24/13 19204/29 19212/24/13 1833 12/24/13 1748 12/24/13 1411 12/23/13 1358 NA -- 139 -- -- -- -- -- 138 135 137 127* K 4.6 3.9 3.6 -- 4.0 4.1 4.2 -- -- -- -- CL -- 110* -- -- -- -- -- -- -- -- 93* CO2 -- 23 -- -- -- -- -- -- -- -- 29* ANIONGAP -- 6 -- -- -- -- -- -- -- -- 5 BUN -- 10 -- -- -- -- -- -- -- -- 11 CREA -- 1.08* -- -- -- -- -- -- -- -- 1.00 EGFR -- 50* -- -- -- -- -- -- -- -- 54* GLU 141* 122* -- 185* 146* -- 108* -- -- -- 102* Lab 12/23/13 1358 INR 1.0 Lab Results Component Value Date CHOL 115 12/16/2013 LDL 48 12/16/2013 LDL 100 06/27/2011 HDL 53 12/16/2013 TRIG 70 12/16/2013 Problem list: Patient Active Problem List Diagnosis HYPOTHYROIDISM HYPERLIPIDEMIA SLEEP APNEA OBSTRUCTIVE RESTLESS LEGS SYNDROME ESSENTIAL HYPERTENSION BENIGN CORONARY ARTERY DISEASE CARDIOMYOPATHY DILATED ISCHEMIC CHRONIC SINUSITIS CEREBRAL ISCHEMIA Nausea Allergic reaction to contrast dye NSTEMI (non-ST elevated myocardial infarction) (HCC) Acute systolic heart failure (HCC) Stress hyperglycemia Total time spent with patient/family: 12/26/2013 10:33 patients record was reviewed and pat ient was assessed prior to the dictation of this note. 25 Minutes; Greater than 50% of total time spent on counseling and coordination of care. Electronically signed by: Electronically signed by: ABBY Dean 12/26/2013 10:41 Diabetes team, [facility] Cristino Cade PA - 12/26/2013 7:27 AM PDTFormatting of this note might be different from the orig inal. [facility] Pt. Name/Age/: Chaya Chan 73 y.o. 1940 Med. Record Number: [id number] Date of admission: 12/24/2013 POD #2 Procedure: CABG X 4 Surgeon: Aylin Subjective New complaints: Fatigued. General: alert and oriented Pain: well controlled. Sleeping well Eating well Doing well. No N/V. Flatulence yes, BMno. Objective: Temp: 36.3 C (97.3 F) BP: 126/58 mmHg Pulse: 70 Resp: 16 SpO2: 92 % on RA l/m Min/Max Temp past 24 hours:Temp Av C (98.6 F) Min: 36.3 C (97.3 F) Max: 37. 3 C (99.1 F) Intake/Output Summary (Last 24 hours) at 12/26/13 0727 Last data filed at 12/26/13 0700 Gross per 24 hour Intake 840 ml Output 785 ml Net 55 ml Wt. Admission: Weight: 74.6 kg (164 lb 7.4 oz) Wt. Current: Weight: 72.9 kg (160 lb 11. 5 oz) Neuro: A&Ox3. Heart: normal rate and regular rhythm Respiratory:decreased breath sounds bilaterally Sternum: Stable Abdomen: soft, nondistended and normal bowel sounds Extremities: pedal edema 2 + lt>rt Wounds: well approximated incision:bilat LE and Chest Rhythm Strip: normal sinus Infusions: insulin regular (NOVOLIN R) infusion (Open Heart Protocol) 1.3 Units/hr (12/26/13 0525) sodium chloride 0.9% 20 mL/hr at 12/25/13 1413 Active Medications: ascorbic acid 500 mg Oral BID aspirin 81 mg Oral Daily atorvaSTATin 40 mg Oral Daily [COMPLETED] ceFAZolin (ANCEF, KEFZOL) IV 2 g Intravenous Q8H [COMPLETED] famotidine 20 mg Intravenous BID ferrous gluconate 324 mg Oral BID WC ferrous sulfate 325 mg Oral BID WC folic acid 1 mg Oral Daily furosemide (LASIX) IV 40 mg Intravenous Once insulin lispro 0-150 Units Subcutaneous TID AC [COMPLETED] magnesium sulfate IVPB 2 g Intravenous Daily metoprolol tartrate 25 mg Oral BID [] pantoprazole 40 mg Oral Once potassium 10 mEq Oral Once senna 8.6 mg Oral BID vitamin C 250 mg Oral BID Imaging: Xr Chest Ap Portable 12/25/2013 CHEST, AP PORTABLE CLINICAL INFORMATION: Post open heart with a chest tube. COMPARISON: Yesterday FINDINGS: Patient has been extubated and an NG tube withdrawn. Rig ht jugular venous catheter tip overlies the SVC. Lung volumes are low. Mild subsegmental atelectasis in the mid left lung and medial left lung base. No pneumothorax. IMPRESSION: H ypoventilatory postoperative chest. No pneumothorax. Xr Chest Ap Portable 12/24/2013 CHEST CLINICAL INFORMATION: Post operative line placement, instrument verifi cation. COMPARISON: 12/23/2013. FINDINGS: A right internal jugular catheter is seen with t ip in the expected location of the superior vena cava. The patient is intubated and the ti p of the endotracheal tube is approximately 2 cm above the level of the aaron. Sternal wi res and surgical clips are seen. Extensive opacification is seen in the right left lower l kayleigh field. Drains are present. The right lung is fairly clear. IMPRESSION: 1. Right sports team marketing intern al jugular line with tip in the expected location of the superior vena cava. 2. Endotracheal tube with tip approximately 2 cm above the level of the aaron. Labs: Recent Labs Basename 12/25/13 0705 12/25/13 0346 12/25/13 0341 12/25/13 0036 12/24/13 2220 12/24/13 192 6 12/24/13 1833 12/24/13 1748 12/23/13 1358 WBC -- 11.6* -- 13.0* -- 7.3 -- -- -- HGB 8.2* 8.1* -- 8.7* -- -- -- -- -- HCT -- 24.3* -- 26.6* -- 26.4* -- -- -- PLT -- 123* -- 134* -- 98* -- -- -- NA -- -- 139 -- -- -- 138 135 -- K 4.6 -- 3.9 3.6 -- -- -- -- -- CL -- -- 110* -- -- -- -- -- 93* CO2 -- -- 23 -- -- -- -- -- 29* BUN -- -- 10 -- -- -- -- -- 11 CREA -- -- 1.08* -- -- -- -- -- 1.00 GLU 141* -- 122* -- 185* -- -- -- -- CALCIUM -- -- 8.4* -- -- -- -- -- 9.5 INR -- -- -- -- -- -- -- -- 1.0 PT -- -- -- -- -- -- -- -- -- PTT -- -- -- -- -- -- -- -- -- CKMB -- -- -- -- -- -- -- -- -- TROPONINI -- -- -- -- -- -- -- -- -- BNP -- -- -- -- -- -- -- -- -- Lab Results Component Value Date CHOL 115 12/16/2013 CHOL 165 12/08/2011 CHOL 181 06/27/2011 HDL 53 12/16/2013 HDL 46 12/08/2011 HDL 44 06/27/2011 TRIG 70 12/16/2013 TRIG 109 12/08/2011 TRIG 182 06/27/2011 Diagnostic studies: Available data and images were reviewed personally. See reports. Signi ficant results and findings are addressed here or in the Assessment and Plan. Assessment and Plan: S/P: CABG X 4., D/C Pwires tomorrow Coronary Artery Disease:On BBlocker, ASA, Statin. EF 60. Cardiac Rhythm: sinus rhythm, monitor V/O: fluid balance and Wt positive, diuresis today. Progress pt care with Cardiopulmonary rehab. Wean O2, IS/deep breathing q1hr while awake, a mbulate and progress. Acute blood loss anemia:monitor, iron, folic acid, and vitamin C supplementation Glucose management: Per DM team. Pain management: continue current regimen. Problem List Patient Active Problem List Diagnosis HYPOTHYROIDISM HYPERLIPIDEMIA SLEEP APNEA OBSTRUCTIVE RESTLESS LEGS SYNDROME ESSENTIAL HYPERTENSION BENIGN CORONARY ARTERY DISEASE CARDIOMYOPATHY DILATED ISCHEMIC CHRONIC SINUSITIS CEREBRAL ISCHEMIA Nausea Allergic reaction to contrast dye NSTEMI (non-ST elevated myocardial infarction) (HCC) Acute systolic heart failure (HCC) Stress hyperglycemia Electronically signed by: Cristino Monsivais PA-C Cardiothoracic Surgery [facility] [address], [address] [place] [address] 12/26/2013 7:27 [facility] Lottie Boone i, ARNP - 12/25/2013 4:17 PM PDTFormatting of this note might be different from the origi nal. PATIENT NAME: Chaya Chan : 1940: AGE: 73 y.o. ADMISSION DATE: 12/24/2013 Hospital Day: Hospital Day: 2 Code Status: Full Code ABBY Farnsworth CARDIOLOGY DAILY PROGRESS NOTE PRIMARY [facility]PITAL PROBLEM: Coronary atherosclerosis of unspecified type of vessel, quartz valley or graft CHIEF COMPLAINT: "Back hurts", "tired". No particular SOB. ASSESSMENT CORONARY ARTERY DISEASE Assessment POD #1 CABG X 4. EF 60% by pre-and post-op ERIN. Hemodynamically stable with stable rhythm (no atrial dysrhythmias). PLAN: Continue ASA, BB, statin. Watch volume status over next 48-72 hours. Stress hyperglycemia Assessment & Plan Per diabetic team. HYPERLIPIDEMIA Assessment Continue statin therapy - had her dose of atorvastatin reduced on 12/17/13 from 80 to 40 mg s econdary to low LDL - will leave at current dose with recheck in 6-8 weeks. PLAN: Continue statin therapy. ESSENTIAL HYPERTENSION BENIGN Assessment SBP well controlled at present, ranging from 110-120. PLAN: Continue current meds. PLAN Watch volume status Continue current meds. SUBJECTIVE DATA REVIEW OF SYSTEMS: Consitutional: fatigued and generally weak CV: negative Resp: negative GI: negative Skin: negative Musculoskeletal: negative OBJECTIVE DATA TELEMETRY: NSR MEDICATIONS: Scheduled PRN aspirin 81 mg Oral Daily atorvaSTATin 40 mg Oral Daily [COMPLETED] ceFAZolin (ANCEF, KEFZOL) IV 2 g Intravenous Prior to Incision [COMPLETED] ceFAZolin (ANCEF, KEFZOL) IV 2 g Intravenous Q8H [COMPLETED] famotidine 20 mg Intravenous BID [START ON 12/26/2013] ferrous gluconate 324 mg Oral BID WC insulin lispro 0-150 Units Subcutaneous TID AC [COMPLETED] magnesium sulfate IVPB 2 g Intravenous Daily metoprolol tartrate 25 mg Oral BID [] pantoprazole 40 mg Oral Once senna 8.6 mg Oral BID [START ON 12/26/2013] vitamin C 250 mg Oral BID insulin regular (NOVOLIN R) infusion (Open Heart Protocol) 1.3 Units/hr (12/25/13 1517) sodium chloride 0.9% 20 mL/hr at 12/25/13 1413 acetaminophen, acetaminophen, acetaminophen, bisacodyl, dextrose, dextrose, diphenhydrAMIN E, diphenhydrAMINE, diphenhydramine, HYDROcodone-acetaminophen, HYDROcodone-acetaminophen, n rjlirsg-jabknvpdt-mlrpnaxxoy, ondansetron, ondansetron, phenol-menthol IMAGING: Xr Chest Ap Portable 12/25/2013 CHEST, AP PORTABLE CLINICAL INFORMATION: Post open heart with a chest tube. COMPARISON: Yesterday FINDINGS: Patient has been extubated and an NG tube withdrawn. Rig ht jugular venous catheter tip overlies the SVC. Lung volumes are low. Mild subsegmental atelectasis in the mid left lung and medial left lung base. No pneumothorax. IMPRESSION: H ypoventilatory postoperative chest. No pneumothorax. Xr Chest Ap Portable 12/24/2013 CHEST CLINICAL INFORMATION: Post operative line placement, instrument verifi cation. COMPARISON: 12/23/2013. FINDINGS: A right internal jugular catheter is seen with t ip in the expected location of the superior vena cava. The patient is intubated and the ti p of the endotracheal tube is approximately 2 cm above the level of the aaron. Sternal wi res and surgical clips are seen. Extensive opacification is seen in the right left lower l kayleigh field. Drains are present. The right lung is fairly clear. IMPRESSION: 1. Right sports team marketing intern al jugular line with tip in the expected location of the superior vena cava. 2. Endotracheal tube with tip approximately 2 cm above the level of the aaron. LABS Recent Labs Basename 12/25/13 0705 12/25/13 0346 12/25/13 0341 12/25/13 0036 12/24/13 2220 12/24/13 192 6 12/24/13 1833 12/24/13 1748 12/23/13 1358 WBC -- 11.6* -- 13.0* -- 7.3 -- -- -- HGB 8.2* 8.1* -- 8.7* -- -- -- -- -- HCT -- 24.3* -- 26.6* -- 26.4* -- -- -- PLT -- 123* -- 134* -- 98* -- -- -- NA -- -- 139 -- -- -- 138 135 -- K 4.6 -- 3.9 3.6 -- -- -- -- -- CL -- -- 110* -- -- -- -- -- 93* CO2 -- -- 23 -- -- -- -- -- 29* BUN -- -- 10 -- -- -- -- -- 11 CREA -- -- 1.08* -- -- -- -- -- 1.00 GLU 141* -- 122* -- 185* -- -- -- -- CALCIUM -- -- 8.4* -- -- -- -- -- 9.5 INR -- -- -- -- -- -- -- -- 1.0 PT -- -- -- -- -- -- -- -- -- PTT -- -- -- -- -- -- -- -- -- CKMB -- -- -- -- -- -- -- -- -- TROPONINI -- -- -- -- -- -- -- -- -- BNP -- -- -- -- -- -- -- -- -- Lab Results Component Value Date CHOL 115 12/16/2013 LDL 48 12/16/2013 HDL 53 12/16/2013 TRIG 70 12/16/2013 VITAL SIGNS: Vitals Current Average / Min / Max Temp 37.2 C (99 F) Temp Min: 35.8 C (96.4 F) Max: 37.3 C (99.1 F) BP 102/58 mmHg BP Min: 100/55 Max: 147/71 HR 66 Pulse Av.8 Min: 58 Max: 78 RR 12 Resp Av Min: 5 Max: 22 Sats 100 % SpO2 Min: 96 % Max: 100 % Weight 74.6 kg (164 lb 7.4 oz) Admit: 74.6 kg (164 lb 7.4 oz) INTAKE/OUTPUT Date 12/24/131900 - 12/25/13 0712/25/13700 - 12/26/13 0700 Shift 8936-0480 24 Hour Total 4090-6047 5909-2934 24 Hour Total I N T A K E P.O. 840 840 P.O. 840 840 I.V. (mL/kg/hr) 988 (1.1) 2988 (1.7) Volume (ml) Insulin 16.3 16.3 Volume (ml) Propofol 66 66 Volume (ml) Fentanyl 12.6 12.6 Volume (ml) Nitroprusside 7.8 7.8 Volume (ml) Phenylephrine 97.3 97.3 Volume (mL) (sodium chloride 0.9% (NS) infusion) 1000 Volume (mL) (sodium chloride 0.9% (NS) infusion) 500 1500 Volume (mL) (dextrose 5% and sodium chloride 0.45% with KCl 20 mEq/L (D5 1/2 NS + KCL 20 ) infusion) 288 288 Other 200 415 Cellsaver 200 415 IV Piggyback 710 710 Volume (mL) (albumin 5% IVPB 25 g) 500 500 Volume (mL) (cefazolin in NS (ANCEF) IVPB 2 g) 55 55 Volume (mL) (potassium chloride 20 mEq in sterile water 50 mL IVPB) 155 155 Shift Total (mL/kg) 1898 (25.4) 4113 (55.1) 840 (11.3) 840 (11.3) O U T P U T Urine (mL/kg/hr) 1725 (1.9) 2225 (1.2) 365 365 Chest Tube 380 380 20 20 Shift Total (mL/kg) 2105 (28.2) 2605 (34.9) 385 (5.2) 385 (5.2) NET -207 1508 455 455 Weight (kg) 74.6 74.6 74.6 74.6 74.6 PHYSICAL EXAM Admit Weight: Weight: 74.6 kg (164 lb 7.4 oz) Current weight: Weight: 74.6 kg (164 lb 7.4 oz) Body mass index is 27.37 kg/(m^2). GENERAL: Pale, tired HEENT: Mucous membranes moist. NECK: Supple. No JVD CHEST: Good inspiratory effort with no crackles, ronchi, or wheezes. Markedly diminished in bases. CARDIAC: Normal S1 and S2. RRR, No murmurs, rubs or gallops. ABDOMEN: Soft, non-tender, nondistended with normal, active bowel sounds. EXTREMITIES: No clubbing, cyanosis, or edema. PULSES: Distal pulses intact NEUROLOGIC: Non-focal. Signed by: ABBY Farnsworth 12/25/2013, 16:18 HN Sj lopez MD - 12/25/2013 10:30 AM PDT PATIENT NAME: Chaya Chan : 1940: AGE: 73 y.o. ADMISSION DATE: 12/24/2013 DISCHARGE DATE: 12/25/2013 PRIMARY CARE: MD Sj Thao MD DAILY PROGRESS NOTE Complains of some back pain Alert and calm Slight vagal episodes overnight SCHEDULED MEDS: aspirin 81 mg Oral Daily atorvaSTATin 40 mg Oral Daily [COMPLETED] ceFAZolin (ANCEF, KEFZOL) IV 2 g Intravenous Prior to Incision [COMPLETED] ceFAZolin (ANCEF, KEFZOL) IV 2 g Intravenous Q8H [COMPLETED] famotidine 20 mg Intravenous BID insulin lispro 0-150 Units Subcutaneous TID AC [COMPLETED] magnesium sulfate IVPB 2 g Intravenous Daily metoprolol tartrate 25 mg Oral BID [] pantoprazole 40 mg Oral Once senna 8.6 mg Oral BID LABS Recent Results (from the past 24 hour(s)) BLOOD GAS , ARTERIAL, SURGERY Collection Time 12/24/13 1411 Component Value Range pH Art 7.45 7.37 - 7.47 PCO2 Art 34 32 - 43 mm Hg pO2 Art 205 Base deficit 0.8 0.0 - 2.5 mmol/L Base Excess Art N/A 0.0 - 2.5 mmol/L HCO3 Art 22.7 (*) 23.0 - 28.0 mmol/L O2 Content, Arterial 14.7 (*) 15 - 23 Vol % Hgb, blood gas 10.4 (*) 11.3 - 15.5 g/dL HGB O2 SAT 97.7 92.0 - 99.9 % Carboxyhemoglobin 1.3 1.0 - 3.0 % Methemoglobin 0.7 0.4 - 1.5 % Ionized Calcium 4.56 (*) 4.75 - 5.30 mg/dL Calcium, pH Normalized 4.67 (*) 4.75 - 5.30 mg/dL POC GLUCOSE 108 (*) 65 - 99 mg/dL K 3.7 3.5 - 5.0 mmol/L NA 137 135 - 145 mmol/L LACTIC ACID, ARTERIAL, SURGERY Collection Time 12/24/13 1411 Component Value Range Lactic Acid, Arterial 0.5 0.5 - 1.6 mmol/L HEMOGLOBIN, SURGERY Collection Time 12/24/13 1519 Component Value Range Hemoglobin 9.9 (*) 11.3 - 15.5 g/dL LACTIC ACID, ARTERIAL, SURGERY Collection Time 12/24/13 1519 Component Value Range Lactic Acid, Arterial 0.6 0.5 - 1.6 mmol/L BLOOD GAS PROFILE ABG, VBG, POTASSIUM AND GLUCOSE, SURGERY Collection Time 12/24/13 1558 Component Value Range pH Art 7.41 7.37 - 7.47 PCO2 Art 38 32 - 43 mm Hg pO2 Art 294 Base deficit 0.4 0.0 - 2.5 mmol/L Base Excess Art N/A 0.0 - 2.5 mmol/L HCO3 Art 23.6 23.0 - 28.0 mmol/L O2 Content, Arterial 10.8 (*) 15 - 23 Vol % Hgb, blood gas 7.3 (*) 11.3 - 15.5 g/dL HGB O2 SAT 98.1 92.0 - 99.9 % Carboxyhemoglobin 1.0 1.0 - 3.0 % Methemoglobin 0.7 0.4 - 1.5 % pH Sohail 7.39 7.31 - 7.41 PCO2 Sohail 42 41 - 51 mm Hg pO2 Sohail 44 (*) 37 - 43 mm Hg O2HB SOHAIL 77.2 K 4.7 3.5 - 5.0 mmol/L POC GLUCOSE 115 (*) 65 - 99 mg/dL CALCIUM, IONIZED, SURGERY Collection Time 12/24/13 1558 Component Value Range Ionized Calcium 4.75 4.75 - 5.30 mg/dL Calcium, pH Normalized 4.77 4.75 - 5.30 mg/dL LACTIC ACID, ARTERIAL, SURGERY Collection Time 12/24/13 1558 Component Value Range Lactic Acid, Arterial 0.7 0.5 - 1.6 mmol/L BLOOD GAS PROFILE ABG, VBG, POTASSIUM AND GLUCOSE, SURGERY Collection Time 12/24/13 1625 Component Value Range pH Art 7.34 (*) 7.37 - 7.47 PCO2 Art 49 (*) 32 - 43 mm Hg pO2 Art 220 Base deficit N/A 0.0 - 2.5 mmol/L Base Excess Art 0.2 0.0 - 2.5 mmol/L HCO3 Art 25.4 23.0 - 28.0 mmol/L O2 Content, Arterial 9.9 (*) 15 - 23 Vol % Hgb, blood gas 6.8 (*) 11.3 - 15.5 g/dL HGB O2 SAT 97.8 92.0 - 99.9 % Carboxyhemoglobin 1.0 1.0 - 3.0 % Methemoglobin 0.8 0.4 - 1.5 % pH Sohail 7.34 7.31 - 7.41 PCO2 Sohail 50 41 - 51 mm Hg pO2 Sohail 52 (*) 37 - 43 mm Hg O2HB SOHAIL 82.3 K 5.1 (*) 3.5 - 5.0 mmol/L POC GLUCOSE 111 (*) 65 - 99 mg/dL CALCIUM, IONIZED, SURGERY Collection Time 12/24/13 1625 Component Value Range Ionized Calcium 4.53 (*) 4.75 - 5.30 mg/dL Calcium, pH Normalized 4.38 (*) 4.75 - 5.30 mg/dL LACTIC ACID, ARTERIAL, SURGERY Collection Time 12/24/13 1625 Component Value Range Lactic Acid, Arterial 0.7 0.5 - 1.6 mmol/L BLOOD GAS PROFILE ABG, VBG, POTASSIUM AND GLUCOSE, SURGERY Collection Time 12/24/13 1702 Component Value Range pH Art 7.36 (*) 7.37 - 7.47 PCO2 Art 45 (*) 32 - 43 mm Hg pO2 Art 174 Base deficit N/A 0.0 - 2.5 mmol/L Base Excess Art 0.2 0.0 - 2.5 mmol/L HCO3 Art 25.0 23.0 - 28.0 mmol/L O2 Content, Arterial 9.4 (*) 15 - 23 Vol % Hgb, blood gas 6.5 (*) 11.3 - 15.5 g/dL HGB O2 SAT 97.8 92.0 - 99.9 % Carboxyhemoglobin 1.2 1.0 - 3.0 % Methemoglobin 0.4 0.4 - 1.5 % pH Sohail 7.35 7.31 - 7.41 PCO2 Sohail 48 41 - 51 mm Hg pO2 Sohail 43 37 - 43 mm Hg O2HB SOHAIL 73.9 K 6.3 (*) 3.5 - 5.0 mmol/L POC GLUCOSE 118 (*) 65 - 99 mg/dL CALCIUM, IONIZED, SURGERY Collection Time 12/24/13 1702 Component Value Range Ionized Calcium 4.46 (*) 4.75 - 5.30 mg/dL Calcium, pH Normalized 4.37 (*) 4.75 - 5.30 mg/dL LACTIC ACID, ARTERIAL, SURGERY Collection Time 12/24/13 1702 Component Value Range Lactic Acid, Arterial 0.7 0.5 - 1.6 mmol/L BLOOD GAS PROFILE ABG, VBG, POTASSIUM AND GLUCOSE, SURGERY Collection Time 12/24/13 1729 Component Value Range pH Art 7.35 (*) 7.37 - 7.47 PCO2 Art 44 (*) 32 - 43 mm Hg pO2 Art 242 Base deficit 0.8 0.0 - 2.5 mmol/L Base Excess Art N/A 0.0 - 2.5 mmol/L HCO3 Art 24.0 23.0 - 28.0 mmol/L O2 Content, Arterial 10.9 (*) 15 - 23 Vol % Hgb, blood gas 7.5 (*) 11.3 - 15.5 g/dL HGB O2 SAT 98.2 92.0 - 99.9 % Carboxyhemoglobin 1.2 1.0 - 3.0 % Methemoglobin 0.5 0.4 - 1.5 % pH Sohail 7.34 7.31 - 7.41 PCO2 Sohail 48 41 - 51 mm Hg pO2 Sohail 50 (*) 37 - 43 mm Hg O2HB SOHAIL 80.7 K 5.6 (*) 3.5 - 5.0 mmol/L POC GLUCOSE 118 (*) 65 - 99 mg/dL CALCIUM, IONIZED, SURGERY Collection Time 12/24/13 1729 Component Value Range Ionized Calcium 5.97 (*) 4.75 - 5.30 mg/dL Calcium, pH Normalized 5.82 (*) 4.75 - 5.30 mg/dL LACTIC ACID, ARTERIAL, SURGERY Collection Time 12/24/13 1729 Component Value Range Lactic Acid, Arterial 1.1 0.5 - 1.6 mmol/L BLOOD GAS , ARTERIAL, SURGERY Collection Time 12/24/13 1748 Component Value Range pH Art 7.39 7.37 - 7.47 PCO2 Art 38 32 - 43 mm Hg pO2 Art 189 Base deficit 1.5 0.0 - 2.5 mmol/L Base Excess Art N/A 0.0 - 2.5 mmol/L HCO3 Art 22.7 (*) 23.0 - 28.0 mmol/L O2 Content, Arterial 10.3 (*) 15 - 23 Vol % Hgb, blood gas 7.2 (*) 11.3 - 15.5 g/dL HGB O2 SAT 97.6 92.0 - 99.9 % Carboxyhemoglobin 1.2 1.0 - 3.0 % Methemoglobin 0.8 0.4 - 1.5 % Ionized Calcium 5.42 (*) 4.75 - 5.30 mg/dL Calcium, pH Normalized 5.39 (*) 4.75 - 5.30 mg/dL POC GLUCOSE 113 (*) 65 - 99 mg/dL K 5.0 3.5 - 5.0 mmol/L NA 135 135 - 145 mmol/L LACTIC ACID, ARTERIAL, SURGERY Collection Time 12/24/13 1748 Component Value Range Lactic Acid, Arterial 1.0 0.5 - 1.6 mmol/L BLOOD GAS , ARTERIAL, SURGERY Collection Time 12/24/131832 Component Value Range pH Art 7.41 7.37 - 7.47 PCO2 Art 36 32 - 43 mm Hg pO2 Art 174 Base deficit 1.7 0.0 - 2.5 mmol/L Base Excess Art N/A 0.0 - 2.5 mmol/L HCO3 Art 22.3 (*) 23.0 - 28.0 mmol/L O2 Content, Arterial 12.4 (*) 15 - 23 Vol % Hgb, blood gas 8.7 (*) 11.3 - 15.5 g/dL HGB O2 SAT 97.7 92.0 - 99.9 % Carboxyhemoglobin 1.0 1.0 - 3.0 % Methemoglobin 0.7 0.4 - 1.5 % Ionized Calcium 5.05 4.75 - 5.30 mg/dL Calcium, pH Normalized 5.06 4.75 - 5.30 mg/dL POC GLUCOSE 111 (*) 65 - 99 mg/dL K 4.5 3.5 - 5.0 mmol/L NA 138 135 - 145 mmol/L LACTIC ACID, ARTERIAL, SURGERY Collection Time 12/24/131832 Component Value Range Lactic Acid, Arterial 1.2 0.5 - 1.6 mmol/L MRSA NAAT Collection Time 12/24/131921 Component Value Range Specimen Source Nasal RESULT Negative for MRSA by PCR Status 12/24/2013 Final BLOOD GAS, ARTERIAL Collection Time 12/24/131924 Component Value Range pH Art 7.37 7.37 - 7.47 PCO2 Art 41 32 - 43 mm Hg pO2 Art 121 (*) 65 - 80 mm Hg O2 Content, Arterial 12.4 (*) 15 - 23 Vol % O2 Sat Art 97.2 92.0 - 99.9 % HCO3 Art 23.1 23.0 - 28.0 mmol/L Base deficit 1.5 0.0 - 2.5 mmol/L Hgb, blood gas 8.9 (*) 11.3 - 15.5 g/dL Carboxyhemoglobin 1.0 1.0 - 3.0 % Methemoglobin 0.7 0.4 - 1.5 % L/min of O2 50% SIMV10 550 PS8 P5 Additional Information [id number] ETCO2=31 GLUCOSE, RESPIRATORY Collection Time 12/24/131924 Component Value Range GLUCOSE 108 (*) 65 - 99 mg/dL POTASSIUM, WHOLE BLOOD Collection Time 12/24/131924 Component Value Range K 4.2 3.5 - 5.0 mmol/L CBC NO DIFFERENTIAL Collection Time 12/24/131925 Component Value Range WBC 7.3 3.8 - 11.0 K/uL RBC 2.83 (*) 3.70 - 5.10 M/uL Hgb 8.8 (*) 11.3 - 15.5 g/dL Hct 26.4 (*) 34.0 - 46.0 % MCV 93.3 80.0 - 100.0 fL MCH 31.0 27.0 - 34.0 pg MCHC 33.2 32.0 - 35.5 g/dL RDW 13.2 11.0 - 15.5 % Platelet Count 98 (*) 150 - 400 K/uL POTASSIUM Collection Time 12/24/131926 Component Value Range K 4.1 3.5 - 5.0 mmol/L BLOOD GAS, ARTERIAL Collection Time 12/24/132104 Component Value Range pH Art 7.38 7.37 - 7.47 PCO2 Art 38 32 - 43 mm Hg pO2 Art 108 (*) 65 - 80 mm Hg O2 Content, Arterial 13.1 (*) 15 - 23 Vol % O2 Sat Art 96.9 92.0 - 99.9 % HCO3 Art 22.1 (*) 23.0 - 28.0 mmol/L Base deficit 2.1 0.0 - 2.5 mmol/L Hgb, blood gas 9.5 (*) 11.3 - 15.5 g/dL Carboxyhemoglobin 0.6 (*) 1.0 - 3.0 % Methemoglobin 0.6 0.4 - 1.5 % L/min of O2 Value: 40% HCT=29.3 SIMV10 VT550 PS8 P5 OX100% EtCO2 30 RR17 GLUCOSE, RESPIRATORY Collection Time 12/24/132104 Component Value Range GLUCOSE 146 (*) 65 - 99 mg/dL POTASSIUM, WHOLE BLOOD Collection Time 12/24/132104 Component Value Range K 4.0 3.5 - 5.0 mmol/L BLOOD GAS, ARTERIAL Collection Time 12/24/132219 Component Value Range pH Art 7.34 (*) 7.37 - 7.47 PCO2 Art 41 32 - 43 mm Hg pO2 Art 106 (*) 65 - 80 mm Hg O2 Content, Arterial 12.9 (*) 15 - 23 Vol % O2 Sat Art 96.5 92.0 - 99.9 % HCO3 Art 21.5 (*) 23.0 - 28.0 mmol/L Base deficit 3.5 (*) 0.0 - 2.5 mmol/L Hgb, blood gas 9.4 (*) 11.3 - 15.5 g/dL Carboxyhemoglobin 0.7 (*) 1.0 - 3.0 % Methemoglobin 0.4 0.4 - 1.5 % L/min of O2 40% PSV 04/20 OX100% RR17 GLUCOSE, RESPIRATORY Collection Time 12/24/132219 Component Value Range GLUCOSE 185 (*) 65 - 99 mg/dL CBC NO DIFFERENTIAL Collection Time 12/25/1335 Component Value Range WBC 13.0 (*) 3.8 - 11.0 K/uL RBC 2.80 (*) 3.70 - 5.10 M/uL Hgb 8.7 (*) 11.3 - 15.5 g/dL Hct 26.6 (*) 34.0 - 46.0 % MCV 94.8 80.0 - 100.0 fL MCH 31.2 27.0 - 34.0 pg MCHC 32.9 32.0 - 35.5 g/dL RDW 13.3 11.0 - 15.5 % Platelet Count 134 (*) 150 - 400 K/uL POTASSIUM Collection Time 12/25/13 0036 Component Value Range K 3.6 3.5 - 5.0 mmol/L BASIC METABOLIC PANEL Collection Time 12/25/13 0341 Component Value Range NA 139 135 - 145 mmol/L K 3.9 3.5 - 5.0 mmol/L CL 110 (*) 99 - 109 mmol/L CO2 23 21 - 28 mmol/L GLUCOSE 122 (*) 65 - 99 mg/dL BUN 10 8 - 25 mg/dL Creatinine, Serum 1.08 (*) 0.50 - 1.00 mg/dL CALCIUM 8.4 (*) 8.5 - 10.2 mg/dL ANION GAP 6 5 - 16 mmol/L Estimated GFR 50 (*) >60 ml/min/1.73m2 CBC NO DIFFERENTIAL Collection Time 12/25/13 0346 Component Value Range WBC 11.6 (*) 3.8 - 11.0 K/uL RBC 2.59 (*) 3.70 - 5.10 M/uL Hgb 8.1 (*) 11.3 - 15.5 g/dL Hct 24.3 (*) 34.0 - 46.0 % MCV 93.7 80.0 - 100.0 fL MCH 31.2 27.0 - 34.0 pg MCHC 33.3 32.0 - 35.5 g/dL RDW 13.3 11.0 - 15.5 % Platelet Count 123 (*) 150 - 400 K/uL BLOOD GAS, ARTERIAL Collection Time 12/25/13704 Component Value Range pH Art 7.36 (*) 7.37 - 7.47 PCO2 Art 40 32 - 43 mm Hg pO2 Art 103 (*) 65 - 80 mm Hg O2 Content, Arterial 11.3 (*) 15 - 23 Vol % O2 Sat Art 96.3 92.0 - 99.9 % HCO3 Art 22.0 (*) 23.0 - 28.0 mmol/L Base deficit 2.7 (*) 0.0 - 2.5 mmol/L Hgb, blood gas 8.2 (*) 11.3 - 15.5 g/dL Carboxyhemoglobin 0.7 (*) 1.0 - 3.0 % Methemoglobin 0.7 0.4 - 1.5 % L/min of O2 2L NC OX 100% GLUCOSE, RESPIRATORY Collection Time 12/25/13704 Component Value Range GLUCOSE 141 (*) 65 - 99 mg/dL CALCIUM, IONIZED, RESPIRATORY Collection Time 12/25/13704 Component Value Range Ionized Calcium 4.85 4.75 - 5.30 mg/dL Calcium, pH Normalized 4.74 (*) 4.75 - 5.30 mg/dL POTASSIUM, WHOLE BLOOD Collection Time 12/25/13704 Component Value Range K 4.6 3.5 - 5.0 mmol/L CXR clear Minimal chest tube output ECG show LVH OBJECTIVE LATEST VITALS: BP 128/70 | Pulse 75 | Temp 37.2 C (99 F) (Bladder) | Resp 12 | Ht 1.65 1 m (5' 5") | Wt 74.6 kg (164 lb 7.4 oz) | BMI 27.37 kg/m2 | SpO2 100% Alert Lungs clear Normal heart tones no rub Extremities warm ASSESSMENT AND PLAN Doing well post CABG OK for floor transfer Prior non [place] in circ territory last week 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 Signed by: Sj Viera MD 12/25/2013, 10:30 HGisarah, BEN Richter T - 12/24/2013 10:40 PM PDTPatient extubated without difficulty. Patient verbalized appropr iately. Patient is still drowsy and having pain. Will perform RT protocol when pain is und er control and when she is more awake. She and state that she has a CPAP at home bu t has not used it in at least three months. Informed them that she could use a hospital [facility] if she chooses. P DTdocumented in this encounter Plan of Treatment + +------+--------+ + + | Name | Type | Priori | Associated Diagnoses | Order Schedule | | | | ty | | | + +------+--------+ + + | Hemoglobin and | Lab | Routin | Acute blood loss | Expected: | | Hematocrit | | e | anemia | 01/09/2014, Expires: | | | | | | 01/02/2015 | + +------+--------+ + + + + +--------+ + + | Name | Type | Priori | Associated Diagnoses | Order Schedule | | | | ty | | | + + +--------+ + + | Ambulatory referral | Outpatient | Routin | A-fib (HCC) | Ordered: 01/02/2014 | | to Anticoagulation | Referral | e | | | | Monitoring | | | | | + + +--------+ + + documented as of this encounter Procedures + +--------+ + + + | Procedure Name | Priori | Date/Time | Associated Diagnosis | Comments | | | ty | | | | + +--------+ + + + | PROTIME INR | Routin | 01/02/2014 | | Results for this | | | e | 3:42 AM | | procedure are in the | | | | PDT | | results section. | + +--------+ + + + | PROTIME INR | Routin | 01/01/2014 | | Results for this | | | e | 10:38 AM | | procedure are in the | | | | PDT | | results section. | + +--------+ + + + | CBC NO DIFFERENTIAL | Routin | 01/01/2014 | | Results for this | | | e | 10:38 AM | | procedure are in the | | | | PDT | | results section. | + +--------+ + + + | ECG 12 LEAD | Timed | 12/31/2013 | | Results for this | | | | 10:52 PM | | procedure are in the | | | | PDT | | results section. | + +--------+ + + + | CBC NO DIFFERENTIAL | Routin | 12/31/2013 | | Results for this | | | e | 4:59 AM | | procedure are in the | | | | PDT | | results section. | + +--------+ + + + | BASIC METABOLIC | Routin | 12/31/2013 | | Results for this | | PANEL | e | 4:59 AM | | procedure are in the | | | | PDT | | results section. | + +--------+ + + + | ECG 12 LEAD | Timed | 12/30/2013 | | Results for this | | | | 8:41 PM | | procedure are in the | | | | PDT | | results section. | + +--------+ + + + | HEMOGLOBIN AND | Routin | 12/30/2013 | | Results for this | | HEMATOCRIT | e | 1:52 AM | | procedure are in the | | | | PDT | | results section. | + +--------+ + + + | ECG 12 LEAD | Timed | 12/29/2013 | | Results for this | | | | 11:05 PM | | procedure are in the | | | | PDT | | results section. | + +--------+ + + + | PRODUCT: RBC | Routin | 12/29/2013 | | Results for this | | | e | 7:49 PM | | procedure are in the | | | | PDT | | results section. | + +--------+ + + + | TYPE AND SCREEN | Routin | 12/29/2013 | | Results for this | | | e | 7:49 PM | | procedure are in the | | | | PDT | | results section. | + +--------+ + + + | EXTRA HOLD TUBE(S) | Routin | 12/29/2013 | | Results for this | | | e | 6:15 PM | | procedure are in the | | | | PDT | | results section. | + +--------+ + + + | ECG 12 LEAD | STAT | 12/29/2013 | | Results for this | | | | 2:19 PM | | procedure are in the | | | | PDT | | results section. | + +--------+ + + + | ECG 12 LEAD | Timed | 12/29/2013 | | Results for this | | | | 10:59 AM | | procedure are in the | | | | PDT | | results section. | + +--------+ + + + | CBC NO DIFFERENTIAL | Routin | 12/29/2013 | | Results for this | | | e | 4:28 AM | | procedure are in the | | | | PDT | | results section. | + +--------+ + + + | BASIC METABOLIC | Routin | 12/29/2013 | | Results for this | | PANEL | e | 4:28 AM | | procedure are in the | | | | PDT | | results section. | + +--------+ + + + | ECG 12 LEAD | Timed | 12/28/2013 | | Results for this | | | | 11:05 PM | | procedure are in the | | | | PDT | | results section. | + +--------+ + + + | ECG 12 LEAD | Timed | 12/28/2013 | | Results for this | | | | 11:09 AM | | procedure are in the | | | | PDT | | results section. | + +--------+ + + + | ECG 12 LEAD | STAT | 12/28/2013 | | Results for this | | | | 5:45 AM | | procedure are in the | | | | PDT | | results section. | + +--------+ + + + | CBC NO DIFFERENTIAL | Routin | 12/28/2013 | | Results for this | | | e | 2:10 AM | | procedure are in the | | | | PDT | | results section. | + +--------+ + + + | BASIC METABOLIC | Routin | 12/28/2013 | | Results for this | | PANEL | e | 2:10 AM | | procedure are in the | | | | PDT | | results section. | + +--------+ + + + | ECG 12 LEAD | Timed | 12/27/2013 | | Results for this | | | | 7:55 PM | | procedure are in the | | | | PDT | | results section. | + +--------+ + + + | ECG 12 LEAD | STAT | 12/27/2013 | | Results for this | | | | 7:56 AM | | procedure are in the | | | | PDT | | results section. | + +--------+ + + + | POC GLUCOSE | Routin | 12/27/2013 | | Results for this | | | e | 7:47 AM | | procedure are in the | | | | PDT | | results section. | + +--------+ + + + | CBC NO DIFFERENTIAL | STAT | 12/27/2013 | | Results for this | | | | 3:52 AM | | procedure are in the | | | | PDT | | results section. | + +--------+ + + + | BASIC METABOLIC | STAT | 12/27/2013 | | Results for this | | PANEL | | 3:52 AM | | procedure are in the | | | | PDT | | results section. | + +--------+ + + + | POC GLUCOSE | Routin | 12/26/2013 | | Results for this | | | e | 9:25 PM | | procedure are in the | | | | PDT | | results section. | + +--------+ + + + | POC GLUCOSE | Routin | 12/26/2013 | | Results for this | | | e | 4:53 PM | | procedure are in the | | | | PDT | | results section. | + +--------+ + + + | IP CONSULT TO | Routin | 12/26/2013 | | | | DIABETES PROVIDER | e | 11:38 AM | | | | | | PDT | | | + +--------+ + + + | POC GLUCOSE | Routin | 12/26/2013 | | Results for this | | | e | 11:37 AM | | procedure are in the | | | | PDT | | results section. | + +--------+ + + + | POC GLUCOSE | Routin | 12/26/2013 | | Results for this | | | e | 9:32 AM | | procedure are in the | | | | PDT | | results section. | + +--------+ + + + | POC GLUCOSE | Routin | 12/26/2013 | | Results for this | | | e | 7:28 AM | | procedure are in the | | | | PDT | | results section. | + +--------+ + + + | POC GLUCOSE | Routin | 12/26/2013 | | Results for this | | | e | 5:24 AM | | procedure are in the | | | | PDT | | results section. | + +--------+ + + + | POC GLUCOSE | Routin | 12/26/2013 | | Results for this | | | e | 3:00 AM | | procedure are in the | | | | PDT | | results section. | + +--------+ + + + | POC GLUCOSE | Routin | 12/26/2013 | | Results for this | | | e | 12:37 AM | | procedure are in the | | | | PDT | | results section. | + +--------+ + + + | POC GLUCOSE | Routin | 12/25/2013 | | Results for this | | | e | 11:29 PM | | procedure are in the | | | | PDT | | results section. | + +--------+ + + + | POC GLUCOSE | Routin | 12/25/2013 | | Results for this | | | e | 10:28 PM | | procedure are in the | | | | PDT | | results section. | + +--------+ + + + | POC GLUCOSE | Routin | 12/25/2013 | | Results for this | | | e | 9:55 PM | | procedure are in the | | | | PDT | | results section. | + +--------+ + + + | POC GLUCOSE | Routin | 12/25/2013 | | Results for this | | | e | 8:40 PM | | procedure are in the | | | | PDT | | results section. | + +--------+ + + + | POC GLUCOSE | Routin | 12/25/2013 | | Results for this | | | e | 8:32 PM | | procedure are in the | | | | PDT | | results section. | + +--------+ + + + | POC GLUCOSE | Routin | 12/25/2013 | | Results for this | | | e | 6:33 PM | | procedure are in the | | | | PDT | | results section. | + +--------+ + + + | POC GLUCOSE | Routin | 12/25/2013 | | Results for this | | | e | 5:27 PM | | procedure are in the | | | | PDT | | results section. | + +--------+ + + + | POC GLUCOSE | Routin | 12/25/2013 | | Results for this | | | e | 4:20 PM | | procedure are in the | | | | PDT | | results section. | + +--------+ + + + | POC GLUCOSE | Routin | 12/25/2013 | | Results for this | | | e | 3:13 PM | | procedure are in the | | | | PDT | | results section. | + +--------+ + + + | POC GLUCOSE | Routin | 12/25/2013 | | Results for this | | | e | 2:18 PM | | procedure are in the | | | | PDT | | results section. | + +--------+ + + + | POC GLUCOSE | Routin | 12/25/2013 | | Results for this | | | e | 1:50 PM | | procedure are in the | | | | PDT | | results section. | + +--------+ + + + | POC GLUCOSE | Routin | 12/25/2013 | | Results for this | | | e | 12:49 PM | | procedure are in the | | | | PDT | | results section. | + +--------+ + + + | POC GLUCOSE | Routin | 12/25/2013 | | Results for this | | | e | 11:21 AM | | procedure are in the | | | | PDT | | results section. | + +--------+ + + + | POC GLUCOSE | Routin | 12/25/2013 | | Results for this | | | e | 9:32 AM | | procedure are in the | | | | PDT | | results section. | + +--------+ + + + | POC GLUCOSE | Routin | 12/25/2013 | | Results for this | | | e | 7:47 AM | | procedure are in the | | | | PDT | | results section. | + +--------+ + + + | GLUCOSE, RESPIRATORY | STAT | 12/25/2013 | | Results for this | | | | 7:05 AM | | procedure are in the | | | | PDT | | results section. | + +--------+ + + + | CALCIUM, IONIZED, | STAT | 12/25/2013 | | Results for this | | RESPIRATORY | | 7:05 AM | | procedure are in the | | | | PDT | | results section. | + +--------+ + + + | BLOOD GAS, ARTERIAL | STAT | 12/25/2013 | | Results for this | | | | 7:05 AM | | procedure are in the | | | | PDT | | results section. | + +--------+ + + + | POTASSIUM, WHOLE | STAT | 12/25/2013 | | Results for this | | BLOOD | | 7:05 AM | | procedure are in the | | | | PDT | | results section. | + +--------+ + + + | POC GLUCOSE | Routin | 12/25/2013 | | Results for this | | | e | 6:39 AM | | procedure are in the | | | | PDT | | results section. | + +--------+ + + + | ECG 12 LEAD | SHAWN | 12/25/2013 | | Results for this | | | | 4:36 AM | | procedure are in the | | | | PDT | | results section. | + +--------+ + + + | XR CHEST AP PORTABLE | Routin | 12/25/2013 | | Results for this | | | e | 4:18 AM | | procedure are in the | | | | PDT | | results section. | + +--------+ + + + | CBC NO DIFFERENTIAL | STAT | 12/25/2013 | | Results for this | | | | 3:46 AM | | procedure are in the | | | | PDT | | results section. | + +--------+ + + + | BASIC METABOLIC | STAT | 12/25/2013 | | Results for this | | PANEL | | 3:41 AM | | procedure are in the | | | | PDT | | results section. | + +--------+ + + + | POC GLUCOSE | Routin | 12/25/2013 | | Results for this | | | e | 2:00 AM | | procedure are in the | | | | PDT | | results section. | + +--------+ + + + | CBC NO DIFFERENTIAL | STAT | 12/25/2013 | | Results for this | | | | 12:36 AM | | procedure are in the | | | | PDT | | results section. | + +--------+ + + + | POTASSIUM | STAT | 12/25/2013 | | Results for this | | | | 12:36 AM | | procedure are in the | | | | PDT | | results section. | + +--------+ + + + | POC GLUCOSE | Routin | 12/25/2013 | | Results for this | | | e | 12:29 AM | | procedure are in the | | | | PDT | | results section. | + +--------+ + + + | GLUCOSE, RESPIRATORY | Routin | 12/24/2013 | | Results for this | | | e | 10:20 PM | | procedure are in the | | | | PDT | | results section. | + +--------+ + + + | BLOOD GAS, ARTERIAL | STAT | 12/24/2013 | | Results for this | | | | 10:20 PM | | procedure are in the | | | | PDT | | results section. | + +--------+ + + + | GLUCOSE, RESPIRATORY | Routin | 12/24/2013 | | Results for this | | | e | 9:05 PM | | procedure are in the | | | | PDT | | results section. | + +--------+ + + + | BLOOD GAS, ARTERIAL | STAT | 12/24/2013 | | Results for this | | | | 9:05 PM | | procedure are in the | | | | PDT | | results section. | + +--------+ + + + | POTASSIUM, WHOLE | Routin | 12/24/2013 | | Results for this | | BLOOD | e | 9:05 PM | | procedure are in the | | | | PDT | | results section. | + +--------+ + + + | ECG 12 LEAD | SHAWN | 12/24/2013 | | Results for this | | | | 7:32 PM | | procedure are in the | | | | PDT | | results section. | + +--------+ + + + | POTASSIUM | STAT | 12/24/2013 | | Results for this | | | | 7:27 PM | | procedure are in the | | | | PDT | | results section. | + +--------+ + + + | CBC NO DIFFERENTIAL | STAT | 12/24/2013 | | Results for this | | | | 7:26 PM | | procedure are in the | | | | PDT | | results section. | + +--------+ + + + | GLUCOSE, RESPIRATORY | Routin | 12/24/2013 | | Results for this | | | e | 7:25 PM | | procedure are in the | | | | PDT | | results section. | + +--------+ + + + | BLOOD GAS, ARTERIAL | STAT | 12/24/2013 | | Results for this | | | | 7:25 PM | | procedure are in the | | | | PDT | | results section. | + +--------+ + + + | POTASSIUM, WHOLE | Routin | 12/24/2013 | | Results for this | | BLOOD | e | 7:25 PM | | procedure are in the | | | | PDT | | results section. | + +--------+ + + + | MRSA NAAT | Routin | 12/24/2013 | | Results for this | | | e | 7:22 PM | | procedure are in the | | | | PDT | | results section. | + +--------+ + + + | XR CHEST AP PORTABLE | STAT | 12/24/2013 | | Results for this | | | | 7:11 PM | | procedure are in the | | | | PDT | | results section. | + +--------+ + + + | LACTIC ACID, | Routin | 12/24/2013 | | Results for this | | ARTERIAL, SURGERY | e | 6:33 PM | | procedure are in the | | | | PDT | | results section. | + +--------+ + + + | BLOOD GAS , | Routin | 12/24/2013 | | Results for this | | ARTERIAL, SURGERY | e | 6:33 PM | | procedure are in the | | | | PDT | | results section. | + +--------+ + + + | LACTIC ACID, | Routin | 12/24/2013 | | Results for this | | ARTERIAL, SURGERY | e | 5:48 PM | | procedure are in the | | | | PDT | | results section. | + +--------+ + + + | BLOOD GAS , | Routin | 12/24/2013 | | Results for this | | ARTERIAL, SURGERY | e | 5:48 PM | | procedure are in the | | | | PDT | | results section. | + +--------+ + + + | LACTIC ACID, | Routin | 12/24/2013 | | Results for this | | ARTERIAL, SURGERY | e | 5:29 PM | | procedure are in the | | | | PDT | | results section. | + +--------+ + + + | CALCIUM, IONIZED, | Routin | 12/24/2013 | | Results for this | | SURGERY | e | 5:29 PM | | procedure are in the | | | | PDT | | results section. | + +--------+ + + + | BLOOD GAS PROFILE | Routin | 12/24/2013 | | Results for this | | ABG, VBG, POTASSIUM | e | 5:29 PM | | procedure are in the | | AND GLUCOSE, SURGERY | | PDT | | results section. | + +--------+ + + + | LACTIC ACID, | Routin | 12/24/2013 | | Results for this | | ARTERIAL, SURGERY | e | 5:02 PM | | procedure are in the | | | | PDT | | results section. | + +--------+ + + + | CALCIUM, IONIZED, | Routin | 12/24/2013 | | Results for this | | SURGERY | e | 5:02 PM | | procedure are in the | | | | PDT | | results section. | + +--------+ + + + | BLOOD GAS PROFILE | Routin | 12/24/2013 | | Results for this | | ABG, VBG, POTASSIUM | e | 5:02 PM | | procedure are in the | | AND GLUCOSE, SURGERY | | PDT | | results section. | + +--------+ + + + | LACTIC ACID, | Routin | 12/24/2013 | | Results for this | | ARTERIAL, SURGERY | e | 4:25 PM | | procedure are in the | | | | PDT | | results section. | + +--------+ + + + | CALCIUM, IONIZED, | Routin | 12/24/2013 | | Results for this | | SURGERY | e | 4:25 PM | | procedure are in the | | | | PDT | | results section. | + +--------+ + + + | BLOOD GAS PROFILE | Routin | 12/24/2013 | | Results for this | | ABG, VBG, POTASSIUM | e | 4:25 PM | | procedure are in the | | AND GLUCOSE, SURGERY | | PDT | | results section. | + +--------+ + + + | LACTIC ACID, | Routin | 12/24/2013 | | Results for this | | ARTERIAL, SURGERY | e | 3:58 PM | | procedure are in the | | | | PDT | | results section. | + +--------+ + + + | CALCIUM, IONIZED, | Routin | 12/24/2013 | | Results for this | | SURGERY | e | 3:58 PM | | procedure are in the | | | | PDT | | results section. | + +--------+ + + + | BLOOD GAS PROFILE | Routin | 12/24/2013 | | Results for this | | ABG, VBG, POTASSIUM | e | 3:58 PM | | procedure are in the | | AND GLUCOSE, SURGERY | | PDT | | results section. | + +--------+ + + + | HEMOGLOBIN, SURGERY | Routin | 12/24/2013 | | Results for this | | | e | 3:19 PM | | procedure are in the | | | | PDT | | results section. | + +--------+ + + + | LACTIC ACID, | Routin | 12/24/2013 | | Results for this | | ARTERIAL, SURGERY | e | 3:19 PM | | procedure are in the | | | | PDT | | results section. | + +--------+ + + + | LACTIC ACID, | Routin | 12/24/2013 | | Results for this | | ARTERIAL, SURGERY | e | 2:11 PM | | procedure are in the | | | | PDT | | results section. | + +--------+ + + + | BLOOD GAS , | Routin | 12/24/2013 | | Results for this | | ARTERIAL, SURGERY | e | 2:11 PM | | procedure are in the | | | | PDT | | results section. | + +--------+ + + + | CORONARY ARTERY | | 12/24/2013 | Coronary | | | BYPASS GRAFT | | 12:48 PM | atherosclerosis of | | | | | PDT | [place] coronary | | | | | | artery | | + +--------+ + + + +---+--------+ | | | | | Specia | | | l | | | Needs | | | ERIN | +---+--------+ + +--------+ +---+ + | POC GLUCOSE | Routin | 12/24/2013 | | Results for this | | | e | 9:23 AM | | procedure are in the | | | | PDT | | results section. | + +--------+ +---+ + documented in this encounter Results Protime INR (01/02/2014 3:42 AM PDT) + + + + + + | Component | Value | Ref Range | Performed | Pathologist | | | | | At | Signature | + + + + + + | Prothrombin | 14.5 | 10.9 - 14.8 sec | [facility] | | | Time | | [facility] | | [facility] | | [facility] | | | | | | [facility] | | | | | | [facility] | | | | | | LABORATORY | | + + + + + + | INR | 1.2Comment: Usual oral | 0.9 - 1.2 | [facility] | | | | anticoagulant range: 2.0 | | [facility] | | | | to 3.0 High level | | HEART | | | | oral anticoagulant | | MEDICAL | | | | range: 2.5 to 3.5 | | CENTER | | | | | | LABORATORY | | + + + + + + + + | Specimen | + + | Blood specimen | | (specimen) | + + + + + + + | Performing | Address | City/State/Zipcode | Phone Number | | Organization | | | | + + + + + | [facility] | [address] | [place] [address] | | | [facility] | | | | | LABORATORY | | | | + + + + + CBC no Differential (01/01/2014 10:38 AM PDT) + + + + + + | Component | Value | Ref Range | Performed | Pathologist | | | | | At | Signature | + + + + + + | WBC | 9.8 | 3.8 - 11.0 K/uL | [facility] | | | | [facility] | | [facility] | | [facility] | | | | | | MED[facility] | | | | | | CENTER | | | | | | LABORATORY | | + + + + + + | RBC | 2.56 (L) | 3.70 - 5.10 | [facility] | | | | | M/uL | [facility] | | | | | | HE[facility] | | | | | | MEDICAL | | | | | | CENTER | | | | | | LABORATORY | | + + + + + + | Hemoglobin | 8.3 (L) | 11.3 - 15.5 | [facility] | | | | | g/dL | [facility] | | | | | | HEART | | | | | | MEDICAL | | | | | | CENTER | | | | | | LABORATORY | | + + + + + + | Hematocrit | 24.1 (L) | 34.0 - 46.0 % | [facility] | | | | [facility] | | | | | | [facility] | | | | | | MEDICAL | | | | | | CENTER | | | | | | LABORATORY | | + + + + + + | MCV | 94.0 | 80.0 - 100.0 fL | [facility] | | | | | | [facility] | | | | | | [facility] | | | | | | MEDICAL | | | | | | CENTER | | | | | | LABORATORY | | + + + + + + | MCH | 32.4 | 27.0 - 34.0 pg | [facility] | | | | | [facility] | | | | | | [facility] | | | | | | MEDICAL | | | | | | CENTER | | | | | | LABORATORY | | + + + + + + | MCHC | 34.4 | 32.0 - 35.5 | [facility] | | | | | g/dL | [facility] | | | | | | HEART | | | | | | MEDICAL | | | | | | CENTER | | | | | | LABORATORY | | + + + + + + | RDW-CV | 13.7 | 11.0 - 15.5 % | [facility] | | | | | | [facility] | | | | | | [facility] | | | | | | MEDICAL | | | | | | CENTER | | | | | | LABORATORY | | + + + + + + | Platelet | 237 | 150 - 400 K/uL | [facility] | | | Count | | | [facility] | | | | | | HEART | | | | | | MEDICAL | | | | | | CENTER | | | | | | LABORATORY | | + + + + + + + + | Specimen | + + | Blood specimen | | (specimen) | + + + + + + + | Performing | Address | City/State/Zipcode | Phone Number | | Organization | | | | + + + + + | [facility] | [address] | [place] [address] | | | [facility] | | | | | LABORATORY | | | | + + + + + Protime INR (01/01/2014 10:38 AM PDT) + + + + + + | Component | Value | Ref Range | Performed | Pathologist | | | | | At | Signature | + + + + + + | Prothrombin | 12.6 | 10.9 - 14.8 sec | [facility] | | | Time | | | [facility] | | | | | | [facility] | | | | | | MEDICAL | | | | | | CENTER | | | | | | LABORATORY | | + + + + + + | INR | 1.0Comment: Usual oral | 0.9 - 1.2 | [facility] | | | | anticoagulant range: 2.0 | | [facility] | | | | to 3.0 High level | | HEART | | | | oral anticoagulant | | MEDICAL | | | | range: 2.5 to 3.5 | | CENTER | | | | | | LABORATORY | | + + + + + + + + | Specimen | + + | Blood specimen | | (specimen) | + + + + + + + | Performing | Address | City/State/Zipcode | Phone Number | | Organization | | | | + + + + + | [facility] | [address] | [place] [address] | | | [facility] | | | | | LABORATORY | | | | + + + + + ECG 12 lead (12/31/2013 10:52 PM PDT) + + | Specimen | + + | | + + + + + | Narrative | Performed At | + + + | RR Interval: | WAMT | | msP-R Interval: msQRSD Interval: msQT Interval: msQTC | [facility] | | Interval: msHeartrate: bpmP Willard: degQRS Willard: degT Wave Willard: | | | degI: 40 Willard: degT: 40 Willard: degT: 40 Willard: degST Willard: | | | degSeverity: - ABNORMAL ECG -INTERP: SINUS RHYTHMINTERP: LVH | | | WITH SECONDARY REPOLARIZATION ABNORMALITY | | |P Willard: deg | | |QRS Willard: deg | | |T Wave Willard: deg | | |I: 40 Willard: deg | | |T: 40 Willard: deg | | |T: 40 Willard: deg | | |ST Willard: deg | | |Severity: - ABNORMAL ECG - | | |INTERP: SINUS RHYTHM | | |INTERP: LVH WITH SECONDARY REPOLARIZATION ABNORMALITY | | + + + + + | Transcriptions | + + | [place] - 12/31/2013 12:00 AM PDT | + + + + + + + | Performing | Address | City/State/Zipcode | Phone Number | | Organization | | | | + + + + + | [facility] | [address] | [place] [address] | [phone] | + + + + + CBC no Differential (12/31/2013 4:59 AM PDT) + + + + + + | Component | Value | Ref Range | Performed | Pathologist | | | | | At | Signature | + + + + + + | WBC | 9.0 | 3.8 - 11.0 K/uL | [facility] | | | | [facility] | | | | | [facility] | | | | | | MEDICAL | | | | | | CENTER | | | | | | LABORATORY | | + + + + + + | RBC | 2.48 (L) | 3.70 - 5.10 | [facility] | | | | | M/uL | [facility] | | | | | | HE[facility] | | | | | | MEDICAL | | | | | | CENTER | | | | | | LABORATORY | | + + + + + + | Hemoglobin | 8.0 (L) | 11.3 - 15.5 | [facility] | | | | | g/dL | [facility] | | | | | | HEART | | | | | | MEDICAL | | | | | | CENTER | | | | | | LABORATORY | | + + + + + + | Hematocrit | 22.9 (L) | 34.0 - 46.0 % | [facility] | | | | | | [facility] | | | | | | [facility] | | | | | | MEDICAL | | | | | | CENTER | | | | | | LABORATORY | | + + + + + + | MCV | 92.4 | 80.0 - 100.0 fL | [facility] | | | | | | [facility] | | | | | | HE[facility] | | | | | | MEDICAL | | | | | | CENTER | | | | | | LABORATORY | | + + + + + + | MCH | 32.3 | 27.0 - 34.0 pg | [facility] | | | | | | [facility] | | | | | | [facility] | | | | | | MEDICAL | | | | | | CENTER | | | | | | LABORATORY | | + + + + + + | MCHC | 35.0 | 32.0 - 35.5 | [facility] | | | | | g/dL | [facility] | | | | | | HEART | | | | | | MEDICAL | | | | | | CENTER | | | | | | LABORATORY | | + + + + + + | RDW-CV | 13.8 | 11.0 - 15.5 % | [facility] | | | | | | [facility] | | | | | | [facility] | | | | | | MEDICAL | | | | | | CENTER | | | | | | LABORATORY | | + + + + + + | Platelet | 193 | 150 - 400 K/uL | [facility] | | | Count | | | [facility] | | | | | | HEART | | | | | | MEDICAL | | | | | | CENTER | | | | | | LABORATORY | | + + + + + + + + | Specimen | + + | Blood specimen | | (specimen) | + + + + + + + | Performing | Address | City/State/Zipcode | Phone Number | | Organization | | | | + + + + + | [facility] | [address] | [place] [address] | | | [facility] | | | | | LABORATORY | | | | + + + + + Basic Metabolic Panel (12/31/2013 4:59 AM PDT) + + + + + + | Component | Value | Ref Range | Performed | Pathologist | | | | | At | Signature | + + + + + + | Na | 135 | 135 - 145 | [facility] | | | | | mmol/L | [facility] | | | | | | HEART | | | | | | MEDICAL | | | | | | CENTER | | | | | | LABORATORY | | + + + + + + | K | 3.7 | 3.5 - 5.0 | [facility] | | | | | mmol/L | [facility] | | | | | | HEART | | | | | | MEDICAL | | | | | | CENTER | | | | | | LABORATORY | | + + + + + + | Cl | 99 | 99 - 109 mmol/L | [facility] | | | | | | [facility] | | | | | | HE[facility] | | | | | | MEDICAL | | | | | | CENTER | | | | | | LABORATORY | | + + + + + + | CO2 | 30 (H) | 21 - 28 mmol/L | [facility] | | | | | | [facility] | | | | | | HE[facility] | | | | | | MEDICAL | | | | | | CENTER | | | | | | LABORATORY | | + + + + + + | Glucose | 86Comment: Czech | 65 - 99 mg/dL | [facility] | | | | Diabetes Association | | [facility] | | | | diagnostic categories | | HEART | | | | for non adults: | | MEDICAL | | | | Impaired fasting | | CENTER | | | | glucose 100 to 125 | | LABORATORY | | | | mg/dL. A fasting | | | | | | glucose result of 126 | | | | | | mg/dL or greater | | | | | | indicates diabetes if | | | | | | the abnormality is | | | | | | confirmed on a | | | | | | subsequent day. A | | | | | | random glucose result of | | | | | | greater than 200 mg/dL | | | | | | indicates diabetes if | | | | | | the abnormality is | | | | | | confirmed on a | | | | | | subsequent day. | | | | + + + + + + | BUN | 11 | 8 - 25 mg/dL | [facility] | | | | | | [facility] | | | | | | HE[facility] | | | | | | MEDICAL | | | | | | CENTER | | | | | | LABORATORY | | + + + + + + | Creatinine | 1.07 (H)Comment: IDMS | 0.50 - 1.00 | [facility] | | | | traceable creatinine | mg/dL | [facility] | | | | | | HEART | | | | | | MEDICAL | | | | | | CENTER | | | | | | LABORATORY | | + + + + + + | Calcium | 8.6 | 8.5 - 10.2 | [facility] | | | | | mg/dL | [facility] | | | | | | HEART | | | | | | MEDICAL | | | | | | CENTER | | | | | | LABORATORY | | + + + + + + | Anion Gap | 6 | 5 - 16 mmol/L | [facility] | | | | | | [facility] | | | | | | HEART | | | | | | MEDICAL | | | | | | CENTER | | | | | | LABORATORY | | + + + + + + | Estimated | 50 (L)Comment: GFR <60: | >60 | [facility] | | | GFR | Chronic kidney disease, | ml/min/1.73m2 | [facility] | | | | if found over a 3 month | | HEART | | | | period.GFR <15: Kidney | | MEDICAL | | | | failure.For | | CENTER | | | | Americans, multiply the | | LABORATORY | | | | calculated GFR by 1.210 | | | | + + + + + + + + | Specimen | + + | Blood specimen | | (specimen) | + + + + + + + | Performing | Address | City/State/Zipcode | Phone Number | | Organization | | | | + + + + + | [facility] | [address] | [place] [address] | | | [facility] | | | | | LABORATORY | | | | + + + + + ECG 12 lead (12/30/2013 8:41 PM PDT) + + | Specimen | + + | | + + + + + | Narrative | Performed At | + + + | RR Interval: | WAMT | | msP-R Interval: msQRSD Interval: msQT Interval: msQTC | [facility] | | Interval: msHeartrate: bpmP Willard: degQRS Willard: degT Wave Willard: | | | degI: 40 Willard: degT: 40 Willard: degT: 40 Willard: degST Willard: | | | degSeverity: - DEFECTIVE ECG -INTERP: ALL 12 LEADS ARE MISSING | | |Heartrate: bpm | | |P Willard: deg | | |QRS Willard: deg | | |T Wave Willard: deg | | |I: 40 Willard: deg | | |T: 40 Willard: deg | | |T: 40 Willard: deg | | |ST Willard: deg | | |Severity: - DEFECTIVE ECG - | | |INTERP: ALL 12 LEADS ARE MISSING | | + + + + + | Transcriptions | + + | DylonBasil fisher - 12/30/2013 12:00 AM PDT | + + + + + + + | Performing | Address | City/State/Zipcode | Phone Number | | Organization | | | | + + + + + | [facility] | [address] | [place] [address] | [phone] | + + + + + Hemoglobin and Hematocrit (12/30/2013 1:52 AM PDT) + + + + + + | Component | Value | Ref Range | Performed | Pathologist | | | | | At | Signature | + + + + + + | Hemoglobin | 7.9 (L) | 11.3 - 15.5 | [facility] | | | | | g/dL | [facility] | | | | | | HEART | | | | | | MEDICAL | | | | | | CENTER | | | | | | LABORATORY | | + + + + + + | Hematocrit | 23.1 (L) | 34.0 - 46.0 % | [facility] | | | | | | [facility] | | | | | | [facility] | | | | | | MEDICAL | | | | | | CENTER | | | | | | LABORATORY | | + + + + + + + + | Specimen | + + | Blood specimen | | (specimen) | + + + + + + + | Performing | Address | City/State/Zipcode | Phone Number | | Organization | | | | + + + + + | [facility] | [address] | [place] [address] | | | [facility] | | | | | LABORATORY | | | | + + + + + ECG 12 lead (12/29/2013 11:05 PM PDT) + + | Specimen | + + | | + + + + + | Narrative | Performed At | + + + | RR Interval: | WAMT | | msP-R Interval: msQRSD Interval: msQT Interval: msQTC | [facility] | | Interval: msHeartrate: bpmP Willard: degQRS Willard: degT Wave Willard: | | | degI: 40 Willard: degT: 40 Willard: degT: 40 Willard: degST Willard: | | | degSeverity: - BORDERLINE ECG -INTERP: SINUS RHYTHMINTERP: LEFT | | | AXIS DEVIATIONINTERP: BORDERLINE T ABNORMALITIES, LATERAL LEADS | | |P Willard: deg | | |QRS Willard: deg | | |T Wave Willard: deg | | |I: 40 Willard: deg | | |T: 40 Willard: deg | | |T: 40 Willard: deg | | |ST Willard: deg | | |Severity: - BORDERLINE ECG - | | |INTERP: SINUS RHYTHM | | |INTERP: LEFT AXIS DEVIATION | | |INTERP: BORDERLINE T ABNORMALITIES, LATERAL LEADS | | + + + + + | Transcriptions | + + | [place] - 12/29/2013 12:00 AM PDT | + + + + + + + | Performing | Address | City/State/Zipcode | Phone Number | | Organization | | | | + + + + + | [facility] | [address] | [place] [address] | [phone] | + + + + + PRODUCT: RBC (12/29/2013 7:49 PM PDT) + + + + + + | Component | Value | Ref Range | Performed | Pathologist | | | | | At | Signature | + + + + + + | Product | RBC | | [facility]FER[facility] | | | Code | | | LAB [place] | | | | | | [facility] | | | | | | [facility] | | | | | | [facility] | | | | | | [facility] | | + + + + + + | UNIT ID | [id number] | | REFERENCE | | | | | | LAB [place] | | | | | | [facility] | | | | [facility] | | | | | | [facility] | | | | | | [facility] | | + + + + + + | UNIT ABO | B | | REFERENCE | | | | | | LAB [place] | | | | | | [facility] | | | | | | [facility] | | | | | | [facility] | | | | | | [facility] | | + + + + + + | UNIT RH | NEG | | REFERENCE | | | | | | LAB [place] | | | | | | [facility] | | | | | [facility] | | | | | | [facility] | | | | | | [facility] | | + + + + + + | Unit Status | IS | | REFERENCE | | | | | | LAB [place] | | | | | | [facility] | | | | | | [facility] | | | | | | [facility] | | | | | | [facility] | | + + + + + + + + | Specimen | + + | | + + + + + | Narrative | Performed At | + + + | Specimen Expiration Date: [id number] | [facility] | | | [place] [facility] | | | [facility] | | | [facility] | + + + + + + + + | Performing | Address | City/State/Zipcode | Phone Number | | Organization | | | | + + + + + | [facility] | [address] | [place] [address] | [phone] | | [place] [facility] | | | | | [facility] | | | | | [facility] | | | | + + + + + Type and Screen (12/29/2013 7:49 PM PDT) + + + + + + | Component | Value | Ref Range | Performed | Pathologist | | | | | At | Signature | + + + + + + | ABO | B | | REFERENCE | | | | | | LAB [place] | | | | | | [facility] | | | | [facility] | | | | | | [facility] | | | | | | [facility] | | + + + + + + | Rh Type | Negative | | REFERENCE | | | | | | LAB [place] | | | | | | [facility] | | | | | [facility] | | | | | | [facility] | | | | | | [facility] | | + + + + + + | Antibody | NegativeComment: Patient | | REFERENCE | | | Screen | is remote crossmatch | | LAB [place] | | | | eligible | | [facility] | | | | | | [facility] | | | | | | [facility] | | | | | | [facility] | | + + + + + + + + | Specimen | + + | Blood specimen | | (specimen) | + + + + + | Narrative | Performed At | + + + | Specimen Expiration Date: | REFERENCE LAB | | | [place] [facility] | | | [facility] | | | [facility] | + + + + + + + + | Performing | Address | City/State/Zipcode | Phone Number | | Organization | | | | + + + + + | [facility] | [address] | [place] [address] | [phone] | | [facility] [place] [facility] | | | | | [facility] | | | | | [facility] | | | | + + + + + Extra Hold Tube(s) (12/29/2013 6:15 PM PDT) + +-------+ + + + | Component | Value | Ref Range | Performed | Pathologist | | | | | At | Signature | + +-------+ + + + | Extra Tube | SST | | [facility] | | [facility] | | [facility] | | | | | | MEDICAL | | | | | | CENTER | | | | | | LABORATORY | | + +-------+ + + + + + | Specimen | + + | | + + + + + + + | Performing | Address | City/State/Zipcode | Phone Number | | Organization | | | | + + + + + | [facility] | [address] | [place] [address] | | | [facility] | | | | | LABORATORY | | | | + + + + + ECG 12 lead (12/29/2013 2:19 PM PDT) + + | Specimen | + + | | + + + + + | Narrative | Performed At | + + + | RR Interval: | WAMT | | msP-R Interval: msQRSD Interval: msQT Interval: msQTC | [facility] | | Interval: msHeartrate: bpmP Willard: degQRS Willard: degT Wave Willard: | | | degI: 40 Willard: degT: 40 Willard: degT: 40 Willard: degST Willard: | | | degSeverity: - ABNORMAL ECG -INTERP: SINUS RHYTHMINTERP: LVH | | | WITH SECONDARY REPOLARIZATION ABNORMALITYINTERP: LEFT ATRIAL | | | ABNORMALITY | | |QRS Willard: deg | | |T Wave Willard: deg | | |I: 40 Willard: deg | | |T: 40 Willard: deg | | |T: 40 Willard: deg | | |ST Willard: deg | | |Severity: - ABNORMAL ECG - | | |INTERP: SINUS RHYTHM | | |INTERP: LVH WITH SECONDARY REPOLARIZATION ABNORMALITY | | |INTERP: LEFT ATRIAL ABNORMALITY | | + + + + + | Transcriptions | + + | [place] - 12/29/2013 12:00 AM PDT | + + + + + + + | Performing | Address | City/State/Zipcode | Phone Number | | Organization | | | | + + + + + | [facility] | [address] | [place] [address] | [phone] | + + + + + ECG 12 lead (12/29/2013 10:59 AM PDT) + + | Specimen | + + | | + + + + + | Narrative | Performed At | + + + | RR Interval: | WAMT | | msP-R Interval: msQRSD Interval: msQT Interval: msQTC | [facility] | | Interval: msHeartrate: bpmP Willard: degQRS Willard: degT Wave Willard: | | | degI: 40 Willard: degT: 40 Willard: degT: 40 Willard: degST Willard: | | | degSeverity: - ABNORMAL ECG -INTERP: SINUS RHYTHMINTERP: | | | NONSPECIFIC T ABNORMALITIES, LATERAL LEADS | | |P Willard: deg | | |QRS Willard: deg | | |T Wave Willard: deg | | |I: 40 Willard: deg | | |T: 40 Willard: deg | | |T: 40 Willard: deg | | |ST Willard: deg | | |Severity: - ABNORMAL ECG - | | |INTERP: SINUS RHYTHM | | |INTERP: NONSPECIFIC T ABNORMALITIES, LATERAL LEADS | | + + + + + | Transcriptions | + + | [place] - 12/29/2013 12:00 AM PDT | + + + + + + + | Performing | Address | City/State/Zipcode | Phone Number | | Organization | | | | + + + + + | [facility] | [address] | [place] [address] | [phone] | + + + + + Basic Metabolic Panel (12/29/2013 4:28 AM PDT) + + + + + + | Component | Value | Ref Range | Performed | Pathologist | | | | | At | Signature | + + + + + + | Na | 129 (L) | 135 - 145 | [facility] | | | | mmol/L | [facility] | | | | | | HE[facility] | | | | | | MEDICAL | | | | | | CENTER | | | | | | LABORATORY | | + + + + + + | K | 3.9 | 3.5 - 5.0 | [facility] | | | | | mmol/L | [facility] | | | | | | HEART | | | | | | MEDICAL | | | | | | CENTER | | | | | | LABORATORY | | + + + + + + | Cl | 100 | 99 - 109 mmol/L | [facility] | | | | | | [facility] | | | | | | HE[facility] | | | | | | MEDICAL | | | | | | CENTER | | | | | | LABORATORY | | + + + + + + | CO2 | 26 | 21 - 28 mmol/L | [facility] | | | | | | [facility] | | | | | | HEART | | | | | | MEDICAL | | | | | | CENTER | | | | | | LABORATORY | | + + + + + + | Glucose | 93Comment: Czech | 65 - 99 mg/dL | [facility] | | | | Diabetes Association | | [facility] | | | | diagnostic categories | | HEART | | | | for non adults: | | MEDICAL | | | | Impaired fasting | | CENTER | | | | glucose 100 to 125 | | LABORATORY | | | | mg/dL. A fasting | | | | | | glucose result of 126 | | | | | | mg/dL or greater | | | | | | indicates diabetes if | | | | | | the abnormality is | | | | | | confirmed on a | | | | | | subsequent day. A | | | | | | random glucose result of | | | | | | greater than 200 mg/dL | | | | | | indicates diabetes if | | | | | | the abnormality is | | | | | | confirmed on a | | | | | | subsequent day. | | | | + + + + + + | BUN | 11 | 8 - 25 mg/dL | [facility] | | | | | | [facility] | | | | | | [facility] | | | | | | MEDICAL | | | | | | [facility]ENTER | | | | | | LABORATORY | | + + + + + + | Creatinine | 0.86Comment: IDMS | 0.50 - 1.00 | [facility] | | | | traceable creatinine | mg/dL | [facility] | | | | | | HE[facility] | | | | | | MEDICAL | | | | | | CENTER | | | | | | LABORATORY | | + + + + + + | Calcium | 8.2 (L) | 8.5 - 10.2 | [facility] | | | | | mg/dL | [facility] | | | | | | HE[facility] | | | | | | MEDICAL | | | | | | CENTER | | | | | | LABORATORY | | + + + + + + | Anion Gap | 3 (L) | 5 - 16 mmol/L | [facility] | | | | | [facility] | | | | | | [facility] | | | | | | MEDICAL | | | | | | CENTER | | | | | | LABORATORY | | + + + + + + | Estimated | >60Comment: GFR <60: | >60 | [facility] | | | GFR | Chronic kidney disease, | ml/min/1.73m2 | [facility] | | | | if found over a 3 month | | HEART | | | | period.GFR <15: Kidney | | MEDICAL | | | | failure.For | | CENTER | | | | Americans, multiply the | | LABORATORY | | | | calculated GFR by 1.210 | | | | + + + + + + + + | Specimen | + + | Blood specimen | | (specimen) | + + + + + + + | Performing | Address | City/State/Zipcode | Phone Number | | Organization | | | | + + + + + | [facility] | [address] | [place] [address] | | | [facility] | | | | | LABORATORY | | | | + + + + + CBC no Differential (12/29/2013 4:28 AM PDT) + + + + + + | Component | Value | Ref Range | Performed | Pathologist | | | | | At | Signature | + + + + + + | WBC | 8.4 | 3.8 - 11.0 K/uL | [facility] | | | | | [facility] | | | | | | [facility] | | | | | | MED[facility] | | | | | | CENTER | | | | | | LABORATORY | | + + + + + + | RBC | 2.16 (L) | 3.70 - 5.10 | [facility] | | | | | M/uL | [facility] | | | | | | HE[facility] | | | | | | MEDICAL | | | | | | CENTER | | | | | | LABORATORY | | + + + + + + | Hemoglobin | 6.8 (L) | 11.3 - 15.5 | [facility] | | | | | g/dL | [facility] | | | | | | HE[facility] | | | | | | MEDICAL | | | | | | CENTER | | | | | | LABORATORY | | + + + + + + | Hematocrit | 20.3 (L) | 34.0 - 46.0 % | [facility] | | | | | | [facility] | | | | | | [facility] | | | | | | MED[facility] | | | | | | CENTER | | | | | | LABORATORY | | + + + + + + | MCV | 94.1 | 80.0 - 100.0 fL | [facility] | | | | | [facility] | | | | | | [facility] | | | | | | MED[facility] | | | | | | CENTER | | | | | | LABORATORY | | + + + + + + | MCH | 31.3 | 27.0 - 34.0 pg | [facility] | | | | | [facility] | | | | | | [facility] | | | | | | MEDICAL | | | | | | CENTER | | | | | | LABORATORY | | + + + + + + | MCHC | 33.3 | 32.0 - 35.5 | [facility] | | | | | g/dL | [facility] | | | | | | HE[facility] | | | | | | MEDICAL | | | | | | CENTER | | | | | | LABORATORY | | + + + + + + | RDW-CV | 13.2 | 11.0 - 15.5 % | [facility] | | | | | | [facility] | | | | | | [facility] | | | | | | MEDICAL | | | | | | CENTER | | | | | | LABORATORY | | + + + + + + | Platelet | 148 (L) | 150 - 400 K/uL | [facility] | | | | | | [facility] | | | | | | [facility]ENTER | | | | | | LABORATORY | | + + + + + + + + | Specimen | + + | Blood specimen | | (specimen) | + + + + + + + | Performing | Address | City/State/Zipcode | Phone Number | | Organization | | | | + + + + + | [facility] | [address] | [place] [address] | | | [facility] | | | | | LABORATORY | | | | + + + + + ECG 12 lead (12/28/2013 11:05 PM PDT) + + | Specimen | + + | | + + + + + | Narrative | Performed At | + + + | RR Interval: | [facility] | | msP-R Interval: msQRSD Interval: msQT Interval: msQTC | [facility] | | Interval: msHeartrate: bpmP Willard: degQRS Willard: degT Wave Willard: | | | degI: 40 Willard: degT: 40 Willard: degT: 40 Willard: degST Willard: | | | degSeverity: - ABNORMAL ECG -INTERP: SINUS RHYTHMINTERP: LVH | | | WITH SECONDARY REPOLARIZATION ABNORMALITY | | |P Willard: deg | | |QRS Willard: deg | | |T Wave Willard: deg | | |I: 40 Willard: deg | | |T: 40 Willard: deg | | |T: 40 Willard: deg | | |ST Willard: deg | | |Severity: - ABNORMAL ECG - | | |INTERP: SINUS RHYTHM | | |INTERP: LVH WITH SECONDARY REPOLARIZATION ABNORMALITY | | + + + + + | Transcriptions | + + | [place] - 12/28/2013 12:00 AM PDT | + + + + + + + | Performing | Address | City/State/Zipcode | Phone Number | | Organization | | | | + + + + + | [facility] | [address] | [place] [address] | [phone] | + + + + + ECG 12 lead (12/28/2013 11:09 AM PDT) + + | Specimen | + + | | + + + + + | Narrative | Performed At | + + + | RR Interval: | [facility] | | msP-R Interval: msQRSD Interval: msQT Interval: msQTC | [facility] | | Interval: msHeartrate: bpmP Willard: degQRS Willard: degT Wave Willard: | | | degI: 40 Willard: degT: 40 Willard: degT: 40 Willard: degST Willard: | | | degSeverity: - ABNORMAL ECG -INTERP: SINUS RHYTHMINTERP: | | | NONSPECIFIC INTRAVENTRICULAR CONDUCTION DELAYINTERP: LVH WITH | | | SECONDARY REPOLARIZATION ABNORMALITY | | |QRS Willard: deg | | |T Wave Willard: deg | | |I: 40 Willard: deg | | |T: 40 Willard: deg | | |T: 40 Willard: deg | | |ST Willard: deg | | |Severity: - ABNORMAL ECG - | | |INTERP: SINUS RHYTHM | | |INTERP: NONSPECIFIC INTRAVENTRICULAR CONDUCTION DELAY | | |INTERP: LVH WITH SECONDARY REPOLARIZATION ABNORMALITY | | + + + + + | Transcriptions | + + | [place] - 12/28/2013 12:00 AM PDT | + + + + + + + | Performing | Address | City/State/Zipcode | Phone Number | | Organization | | | | + + + + + | [facility] | [address] | [place] [address] | [phone] | + + + + + ECG 12 lead (12/28/2013 5:45 AM PDT) + + | Specimen | + + | | + + + + + | Narrative | Performed At | + + + | RR Interval: | [facility] | | msP-R Interval: msQRSD Interval: msQT Interval: msQTC | [facility] | | Interval: msHeartrate: bpmP Willard: degQRS Willard: degT Wave Willard: | | | degI: 40 Willard: degT: 40 Willard: degT: 40 Willard: degST Willard: | | | degSeverity: - ABNORMAL ECG -INTERP: ATRIAL FIBRILLATION, V-RATE | | | 81-146INTERP: LEFT AXIS DEVIATIONINTERP: LVH WITH SECONDARY | | | REPOLARIZATION ABNORMALITY | | |QRS Willard: deg | | |T Wave Willard: deg | | |I: 40 Willard: deg | | |T: 40 Willard: deg | | |T: 40 Willard: deg | | |ST Willard: deg | | |Severity: - ABNORMAL ECG - | | |INTERP: ATRIAL FIBRILLATION, V-RATE 81-146 | | |INTERP: LEFT AXIS DEVIATION | | |INTERP: LVH WITH SECONDARY REPOLARIZATION ABNORMALITY | | + + + + + | Transcriptions | + + | Dylonphillip [facility] - 12/28/2013 12:00 AM PDT | + + + + + + + | Performing | Address | City/State/Zipcode | Phone Number | | Organization | | | | + + + + + | [facility] | [address] | [place] [address] | [phone] | + + + + + CBC no Differential (12/28/2013 2:10 AM PDT) + + + + + + | Component | Value | Ref Range | Performed | Pathologist | | | | | At | Signature | + + + + + + | WBC | 9.0 | 3.8 - 11.0 K/uL | [facility] | | | | | [facility] | | | | | | [facility]ENTER | | | | | | LABORATORY | | + + + + + + | RBC | 2.17 (L) | 3.70 - 5.10 | [facility] | | | | | M/uL | [facility] | | | | | | [facility] | | | | | | MEDICAL | | | | | | CENTER | | | | | | LABORATORY | | + + + + + + | Hemoglobin | 7.0 (L) | 11.3 - 15.5 | [facility] | | | | | g/dL | [facility] | | | | | | HE[facility] | | | | | | MEDICAL | | | | | | CENTER | | | | | | LABORATORY | | + + + + + + | Hematocrit | 20.1 (L) | 34.0 - 46.0 % | [facility] | [facility] | [facility] | | | | | [facility] | | | | | | CENTER | | | | | | LABORATORY | | + + + + + + | MCV | 92.4 | 80.0 - 100.0 fL | [facility] | [facility] | | | | | [facility] | | | | | | [facility] | | | | | | [facility]ENTER | | | | | | LABORATORY | | + + + + + + | MCH | 32.1 | 27.0 - 34.0 pg | [facility] | | | [facility] | | | | | [facility] | | | | | | [facility] | | | | | | CENTER | | | | | | LABORATORY | | + + + + + + | MCHC | 34.7 | 32.0 - 35.5 | [facility] | | | | | g/dL | [facility] | | | | | | HEART | | | | | | MEDICAL | | | | | | CENTER | | | | | | LABORATORY | | + + + + + + | RDW-CV | 13.2 | 11.0 - 15.5 % | [facility] | | [facility] | [facility] | [facility] | | | | | | [facility] | | | | | | CENTER | | | | | | LABORATORY | | + + + + + + | Platelet | 107 (L) | 150 - 400 K/uL | [facility] | | | Count | | | [facility] | | | | | [facility] | | | | | | [facility] | | | | | | CENTER | | | | | | LABORATORY | | + + + + + + + + | Specimen | + + | Blood specimen | | (specimen) | + + + + + + + | Performing | Address | City/State/Zipcode | Phone Number | | Organization | | | | + + + + + | [facility] | [address] | [place] [address] | | | [facility] | | | | | LABORATORY | | | | + + + + + Basic Metabolic Panel (12/28/2013 2:10 AM PDT) + + + + + + | Component | Value | Ref Range | Performed | Pathologist | | | | | At | Signature | + + + + + + | Na | 127 (L) | 135 - 145 | [facility] | | | | | mmol/L | [facility] | | | | | [facility] | | | | | | MEDICAL | | | | | | CENTER | | | | | | LABORATORY | | + + + + + + | K | 4.2 | 3.5 - 5.0 | [facility] | | | | | mmol/L | [facility] | | | | | | HE[facility] | | | | | | MEDICAL | | | | | | CENTER | | | | | | LABORATORY | | + + + + + + | Cl | 99 | 99 - 109 mmol/L | [facility] | | | | [facility] | | | | | [facility] | | | | | | [facility] | | | | | | CENTER | | | | | | LABORATORY | | + + + + + + | CO2 | 26 | 21 - 28 mmol/L | [facility] | | [facility] | | [facility] | | [facility] | | | | | | MEDICAL | | | | | | CENTER | | | | | | LABORATORY | | + + + + + + | Glucose | 116 (H)Comment: Czech | 65 - 99 mg/dL | [facility] | | | | Diabetes Association | | [facility] | | | | diagnostic categories | | HEART | | | | for non adults: | | MEDICAL | | | | Impaired fasting | | CENTER | | | | glucose 100 to 125 | | LABORATORY | | | | mg/dL. A fasting | | | | | | glucose result of 126 | | | | | | mg/dL or greater | | | | | | indicates diabetes if | | | | | | the abnormality is | | | | | | confirmed on a | | | | | | subsequent day. A | | | | | | random glucose result of | | | | | | greater than 200 mg/dL | | | | | | indicates diabetes if | | | | | | the abnormality is | | | | | | confirmed on a | | | | | | subsequent day. | | | | + + + + + + | BUN | 11 | 8 - 25 mg/dL | [facility] | | | | [facility] | | | | | [facility] | | | | | | MEDICAL | | | | | | CENTER | | | | | | LABORATORY | | + + + + + + | Creatinine | 0.84Comment: IDMS | 0.50 - 1.00 | [facility] | | | | traceable creatinine | mg/dL | [facility] | | | | | | HE[facility] | | | | | | MEDICAL | | | | | | CENTER | | | | | | LABORATORY | | + + + + + + | Calcium | 8.2 (L) | 8.5 - 10.2 | [facility] | | | | | mg/dL | [facility] | | | | | | HEART | | | | | | MEDICAL | | | | | | CENTER | | | | | | LABORATORY | | + + + + + + | Anion Gap | 2 (L)Comment: Verified | 5 - 16 mmol/L | [facility] | | | | by repeat analysis. | | [facility] | | | | | | HEART | | | | | | MEDICAL | | | | | | CENTER | | | | | | LABORATORY | | + + + + + + | Estimated | >60Comment: GFR <60: | >60 | [facility] | | | GFR | Chronic kidney disease, | ml/min/1.73m2 | [facility] | | | | if found over a 3 month | | HEART | | | | period.GFR <15: Kidney | | MEDICAL | | | | failure.For | | CENTER | | | | Americans, multiply the | | LABORATORY | | | | calculated GFR by 1.210 | | | | + + + + + + + + | Specimen | + + | Blood specimen | | (specimen) | + + + + + + + | Performing | Address | City/State/Zipcode | Phone Number | | Organization | | | | + + + + + | [facility] | [address] | [place] [address] | | | [facility] | | | | | LABORATORY | | | | + + + + + ECG 12 lead (12/27/2013 7:55 PM PDT) + + | Specimen | + + | | + + + + + | Narrative | Performed At | + + + | RR Interval: | [facility] | | msP-R Interval: msQRSD Interval: msQT Interval: msQTC | [facility] | | Interval: msHeartrate: bpmP Willard: degQRS Willard: degT Wave Willard: | | | degI: 40 Willard: degT: 40 Willard: degT: 40 Willard: degST Willard: | | | degSeverity: - ABNORMAL ECG -INTERP: SINUS RHYTHMINTERP: LEFT | | | AXIS DEVIATIONINTERP: LEFT VENTRICULAR HYPERTROPHY | | |P Willard: deg | | |QRS Willard: deg | | |T Wave Willard: deg | | |I: 40 Willard: deg | | |T: 40 Willard: deg | | |T: 40 Willard: deg | | |ST Willard: deg | | |Severity: - ABNORMAL ECG - | | |INTERP: SINUS RHYTHM | | |INTERP: LEFT AXIS DEVIATION | | |INTERP: LEFT VENTRICULAR HYPERTROPHY | | + + + + + | Transcriptions | + + | [place] - 12/27/2013 12:00 AM PDT | + + + + + + + | Performing | Address | City/State/Zipcode | Phone Number | | Organization | | | | + + + + + | [facility] | [address] | [place] [address] | [phone] | + + + + + ECG 12 lead (12/27/2013 7:56 AM PDT) + + | Specimen | + + | | + + + + + | Narrative | Performed At | + + + | RR Interval: | [facility] | | msP-R Interval: msQRSD Interval: msQT Interval: msQTC | [facility] | | Interval: msHeartrate: bpmP Willard: degQRS Willard: degT Wave Willard: | | | degI: 40 Willard: degT: 40 Willard: degT: 40 Willard: degST Willard: | | | degSeverity: - ABNORMAL ECG -INTERP: ATRIAL FIBRILLATIONINTERP: | | | LEFT AXIS DEVIATIONINTERP: LVH WITH SECONDARY REPOLARIZATION | | | ABNORMALITY | | |QRS Willard: deg | | |T Wave Willard: deg | | |I: 40 Willard: deg | | |T: 40 Willard: deg | | |T: 40 Willard: deg | | |ST Willard: deg | | |Severity: - ABNORMAL ECG - | | |INTERP: ATRIAL FIBRILLATION | | |INTERP: LEFT AXIS DEVIATION | | |INTERP: LVH WITH SECONDARY REPOLARIZATION ABNORMALITY | | + + + + + | Transcriptions | + + | [place] - 12/27/2013 12:00 AM PDT | + + + + + + + | Performing | Address | City/State/Zipcode | Phone Number | | Organization | | | | + + + + + | [facility] | [address] | [place] [address] | [phone] | + + + + + POC Glucose (12/27/2013 7:47 AM PDT) + +-------+ + + + | Component | Value | Ref Range | Performed | Pathologist | | | | | At | Signature | + +-------+ + + + | Glucose, | 97 | 65 - 99 mg/dL | [facility] | | | POC | | | [facility] | | | | | | [facility] | | | | | | MEDICAL | | | | | | CENTER | | | | | | LABORATORY | | + +-------+ + + + + + | Specimen | + + | | + + + + + + + | Performing | Address | City/State/Zipcode | Phone Number | | Organization | | | | + + + + + | [facility] | [address] | [place] [address] | | | [facility] | | | | | LABORATORY | | | | + + + + + CBC no Differential (12/27/2013 3:52 AM PDT) + + + + + + | Component | Value | Ref Range | Performed | Pathologist | | | | | At | Signature | + + + + + + | WBC | 9.4 | 3.8 - 11.0 K/uL | [facility] | | | | [facility] | | | | | [facility] | | | | | | MEDICAL | | | | | | CENTER | | | | | | LABORATORY | | + + + + + + | RBC | 2.36 (L) | 3.70 - 5.10 | [facility] | | | | | M/uL | [facility] | | | | | | HEART | | | | | | MEDICAL | | | | | | CENTER | | | | | | LABORATORY | | + + + + + + | Hemoglobin | 7.5 (L) | 11.3 - 15.5 | [facility] | | | | | g/dL | [facility] | | | | | | HEART | | | | | | MEDICAL | | | | | | CENTER | | | | | | LABORATORY | | + + + + + + | Hematocrit | 22.0 (L) | 34.0 - 46.0 % | [facility] | | | | | | [facility] | | | | | | [facility] | | | | | | MEDICAL | | | | | | CENTER | | | | | | LABORATORY | | + + + + + + | MCV | 93.2 | 80.0 - 100.0 fL | [facility] | | | | | | [facility] | | | | | | [facility] | | | | | | MEDICAL | | | | | | CENTER | | | | | | LABORATORY | | + + + + + + | MCH | 31.6 | 27.0 - 34.0 pg | [facility] | | | | | | [facility] | | | | | | [facility] | | | | | | MEDICAL | | | | | | CENTER | | | | | | LABORATORY | | + + + + + + | MCHC | 33.9 | 32.0 - 35.5 | [facility] | | | | | g/dL | [facility] | | | | | | HEART | | | | | | MEDICAL | | | | | | CENTER | | | | | | LABORATORY | | + + + + + + | RDW-CV | 13.3 | 11.0 - 15.5 % | [facility] | | | | | | [facility] | | | | | | [facility] | | | | | | MEDICAL | | | | | | CENTER | | | | | | LABORATORY | | + + + + + + | Platelet | 99 (L) | 150 - 400 K/uL | [facility] | | | Count | | | [facility] | | | | | | HEART | | | | | | MEDICAL | | | | | | CENTER | | | | | | LABORATORY | | + + + + + + + + | Specimen | + + | Blood specimen | | (specimen) | + + + + + + + | Performing | Address | City/State/Zipcode | Phone Number | | Organization | | | | + + + + + | [facility] | [address] | [place] [address] | | | [facility] | | | | | LABORATORY | | | | + + + + + Basic Metabolic Panel (12/27/2013 3:52 AM PDT) + + + + + + | Component | Value | Ref Range | Performed | Pathologist | | | | | At | Signature | + + + + + + | Na | 130 (L) | 135 - 145 | [facility] | | | | | mmol/L | [facility] | | | | | | HEART | | | | | | MEDICAL | | | | | | CENTER | | | | | | LABORATORY | | + + + + + + | K | 4.4 | 3.5 - 5.0 | [facility] | | | | | mmol/L | [facility] | | | | | | HEART | | | | | | MEDICAL | | | | | | CENTER | | | | | | LABORATORY | | + + + + + + | Cl | 99 | 99 - 109 mmol/L | [facility] | | | | | | [facility] | | | | | | [facility] | | | | | | MEDICAL | | | | | | CENTER | | | | | | LABORATORY | | + + + + + + | CO2 | 26 | 21 - 28 mmol/L | [facility] | | | | | [facility] | | | | | | [facility] | | | | | | MEDICAL | | | | | | CENTER | | | | | | LABORATORY | | + + + + + + | Glucose | 125 (H)Comment: Czech | 65 - 99 mg/dL | [facility] | | | | Diabetes Association | | [facility] | | | | diagnostic categories | | HEART | | | | for non adults: | | MEDICAL | | | | Impaired fasting | | CENTER | | | | glucose 100 to 125 | | LABORATORY | | | | mg/dL. A fasting | | | | | | glucose result of 126 | | | | | | mg/dL or greater | | | | | | indicates diabetes if | | | | | | the abnormality is | | | | | | confirmed on a | | | | | | subsequent day. A | | | | | | random glucose result of | | | | | | greater than 200 mg/dL | | | | | | indicates diabetes if | | | | | | the abnormality is | | | | | | confirmed on a | | | | | | subsequent day. | | | | + + + + + + | BUN | 13 | 8 - 25 mg/dL | [facility] | | | | | | [facility] | | | | | | [facility] | | | | | | MEDICAL | | | | | | CENTER | | | | | | LABORATORY | | + + + + + + | Creatinine | 0.98Comment: IDMS | 0.50 - 1.00 | [facility] | | | | traceable creatinine | mg/dL | [facility] | | | | | | HEART | | | | | | MEDICAL | | | | | | CENTER | | | | | | LABORATORY | | + + + + + + | Calcium | 8.6 | 8.5 - 10.2 | [facility] | | | | | mg/dL | [facility] | | | | | | HEART | | | | | | MEDICAL | | | | | | CENTER | | | | | | LABORATORY | | + + + + + + | Anion Gap | 5 | 5 - 16 mmol/L | [facility] | | | | | | [facility] | | | | | | [facility] | | | | | | MEDICAL | | | | | | CENTER | | | | | | LABORATORY | | + + + + + + | Estimated | 56 (L)Comment: GFR <60: | >60 | [facility] | | | GFR | Chronic kidney disease, | ml/min/1.73m2 | [facility] | | | | if found over a 3 month | | HEART | | | | period.GFR <15: Kidney | | MEDICAL | | | | failure.For | | CENTER | | | | Americans, multiply the | | LABORATORY | | | | calculated GFR by 1.210 | | | | + + + + + + + + | Specimen | + + | Blood specimen | | (specimen) | + + + + + + + | Performing | Address | City/State/Zipcode | Phone Number | | Organization | | | | + + + + + | [facility] | [address] | [place] [address] | | | [facility] | | | | | LABORATORY | | | | + + + + + POC Glucose (12/26/2013 9:25 PM PDT) + +---------+ + + + | Component | Value | Ref Range | Performed | Pathologist | | | | | At | Signature | + +---------+ + + + | Glucose, | 140 (H) | 65 - 99 mg/dL | [facility] | | | POC | | | [facility] | | | | | | HEART | | | | | | MEDICAL | | | | | | CENTER | | | | | | LABORATORY | | + +---------+ + + + + + | Specimen | + + | | + + + + + + + | Performing | Address | City/State/Zipcode | Phone Number | | Organization | | | | + + + + + | [facility] | [address] | [place] [address] | | | [facility] | | | | | LABORATORY | | | | + + + + + POC Glucose (12/26/2013 4:53 PM PDT) + +---------+ + + + | Component | Value | Ref Range | Performed | Pathologist | | | | | At | Signature | + +---------+ + + + | Glucose, | 135 (H) | 65 - 99 mg/dL | [facility] | | | POC | | | [facility] | | | | | | HEART | | | | | | MEDICAL | | | | | | CENTER | | | | | | LABORATORY | | + +---------+ + + + + + | Specimen | + + | | + + + + + + + | Performing | Address | City/State/Zipcode | Phone Number | | Organization | | | | + + + + + | [facility] | [address] | [place] [address] | | | [facility] | | | | | LABORATORY | | | | + + + + + POC Glucose (12/26/2013 11:37 AM PDT) + +---------+ + + + | Component | Value | Ref Range | Performed | Pathologist | | | | | At | Signature | + +---------+ + + + | Glucose, | 158 (H) | 65 - 99 mg/dL | [facility] | | | POC | | | [facility] | | | | | | HEART | | | | | | MEDICAL | | | | | | CENTER | | | | | | LABORATORY | | + +---------+ + + + + + | Specimen | + + | | + + + + + + + | Performing | Address | City/State/Zipcode | Phone Number | | Organization | | | | + + + + + | [facility] | [address] | [place] [address] | | | [facility] | | | | | LABORATORY | | | | + + + + + POC Glucose (12/26/2013 9:32 AM PDT) + +---------+ + + + | Component | Value | Ref Range | Performed | Pathologist | | | | | At | Signature | + +---------+ + + + | Glucose, | 114 (H) | 65 - 99 mg/dL | [facility] | | | POC | | | [facility] | | | | | | HEART | | | | | | MEDICAL | | | | | | CENTER | | | | | | LABORATORY | | + +---------+ + + + + + | Specimen | + + | | + + + + + + + | Performing | Address | City/State/Zipcode | Phone Number | | Organization | | | | + + + + + | [facility] | [address] | [place] [address] | | | [facility] | | | | | LABORATORY | | | | + + + + + POC Glucose (12/26/2013 7:28 AM PDT) + +-------+ + + + | Component | Value | Ref Range | Performed | Pathologist | | | | | At | Signature | + +-------+ + + + | Glucose, | 93 | 65 - 99 mg/dL | [facility] | | | POC | | | [facility] | | | | | | HEART | | | | | | MEDICAL | | | | | | CENTER | | | | | | LABORATORY | | + +-------+ + + + + + | Specimen | + + | | + + + + + + + | Performing | Address | City/State/Zipcode | Phone Number | | Organization | | | | + + + + + | [facility] | [address] | [place] [address] | | | [facility] | | | | | LABORATORY | | | | + + + + + POC Glucose (12/26/2013 5:24 AM PDT) + +---------+ + + + | Component | Value | Ref Range | Performed | Pathologist | | | | | At | Signature | + +---------+ + + + | Glucose, | 102 (H) | 65 - 99 mg/dL | [facility] | | | POC | | | [facility] | | | | | | HEART | | | | | | MEDICAL | | | | | | CENTER | | | | | | LABORATORY | | + +---------+ + + + + + | Specimen | + + | | + + + + + + + | Performing | Address | City/State/Zipcode | Phone Number | | Organization | | | | + + + + + | [facility] | [address] | [place] [address] | | | [facility] | | | | | LABORATORY | | | | + + + + + POC Glucose (12/26/2013 3:00 AM PDT) + +---------+ + + + | Component | Value | Ref Range | Performed | Pathologist | | | | | At | Signature | + +---------+ + + + | Glucose, | 108 (H) | 65 - 99 mg/dL | [facility] | | | POC | | | [facility] | | | | | | [facility] | | | | | | MEDICAL | | | | | | CENTER | | | | | | LABORATORY | | + +---------+ + + + + + | Specimen | + + | | + + + + + + + | Performing | Address | City/State/Zipcode | Phone Number | | Organization | | | | + + + + + | [facility] | [address] | [place] [address] | | | [facility] | | | | | LABORATORY | | | | + + + + + POC Glucose (12/26/2013 12:37 AM PDT) + +-------+ + + + | Component | Value | Ref Range | Performed | Pathologist | | | | | At | Signature | + +-------+ + + + | Glucose, | 95 | 65 - 99 mg/dL | [facility] | | | POC | | | [facility] | | | | | | HEART | | | | | | MEDICAL | | | | | | CENTER | | | | | | LABORATORY | | + +-------+ + + + + + | Specimen | + + | | + + + + + + + | Performing | Address | City/State/Zipcode | Phone Number | | Organization | | | | + + + + + | [facility] | [address] | [place] [address] | | | [facility] | | | | | LABORATORY | | | | + + + + + POC Glucose (12/25/2013 11:29 PM PDT) + +-------+ + + + | Component | Value | Ref Range | Performed | Pathologist | | | | | At | Signature | + +-------+ + + + | Glucose, | 99 | 65 - 99 mg/dL | [facility] | [facility] | | | [facility] | | | | | [facility] | | | | | | [facility]ENTER | | | | | | LABORATORY | | + +-------+ + + + + + | Specimen | + + | | + + + + + + + | Performing | Address | City/State/Zipcode | Phone Number | | Organization | | | | + + + + + | [facility] | [address] | [place] [address] | | | [facility] | | | | | LABORATORY | | | | + + + + + POC Glucose (12/25/2013 10:28 PM PDT) + +---------+ + + + | Component | Value | Ref Range | Performed | Pathologist | | | | | At | Signature | + +---------+ + + + | Glucose, | 105 (H) | 65 - 99 mg/dL | [facility] | | | | | [facility] | | | | | | [facility] | | | | | | [facility]ENTER | | | | | | LABORATORY | | + +---------+ + + + + + | Specimen | + + | | + + + + + + + | Performing | Address | City/State/Zipcode | Phone Number | | Organization | | | | + + + + + | [facility] | [address] | [place] [address] | | | [facility] | | | | | LABORATORY | | | | + + + + + POC Glucose (12/25/2013 9:55 PM PDT) + +---------+ + + + | Component | Value | Ref Range | Performed | Pathologist | | | | | At | Signature | + +---------+ + + + | Glucose, | 123 (H) | 65 - 99 mg/dL | [facility] | | | | | [facility] | | | | | | [facility] | | | | | | [facility]ENTER | | | | | | LABORATORY | | + +---------+ + + + + + | Specimen | + + | | + + + + + + + | Performing | Address | City/State/Zipcode | Phone Number | | Organization | | | | + + + + + | [facility] | [address] | [place] [address] | | | [facility] | | | | | LABORATORY | | | | + + + + + POC Glucose (12/25/2013 8:40 PM PDT) + +---------+ + + + | Component | Value | Ref Range | Performed | Pathologist | | | | | At | Signature | + +---------+ + + + | Glucose, | 162 (H) | 65 - 99 mg/dL | [facility] | | [facility] | | | | | | [facility] | | | | | | [facility]ICAL | | | | | | [facility]ENTER | | | | | | LABORATORY | | + +---------+ + + + + + | Specimen | + + | | + + + + + + + | Performing | Address | City/State/Zipcode | Phone Number | | Organization | | | | + + + + + | [facility] | [address] | [place] [address] | | | [facility] | | | | | LABORATORY | | | | + + + + + POC Glucose (12/25/2013 8:32 PM PDT) + +---------+ + + + | Component | Value | Ref Range | Performed | Pathologist | | | | | At | Signature | + +---------+ + + + | Glucose, | 163 (H) | 65 - 99 mg/dL | [facility] | | | | | [facility] | | | | | | [facility] | | | | | | CENTER | | | | | | LABORATORY | | + +---------+ + + + + + | Specimen | + + | | + + + + + + + | Performing | Address | City/State/Zipcode | Phone Number | | Organization | | | | + + + + + | [facility] | [address] | [place] [address] | | | [facility] [facility] | | | | | LABORATORY | | | | + + + + + POC Glucose (12/25/2013 6:33 PM PDT) + +---------+ + + + | Component | Value | Ref Range | Performed | Pathologist | | | | | At | Signature | + +---------+ + + + | Glucose, | 111 (H) | 65 - 99 mg/dL | [facility] | | | [facility] | | | | | | [facility] | | | | | | LABORATORY | | + +---------+ + + + + + | Specimen | + + | | + + + + + + + | Performing | Address | City/State/Zipcode | Phone Number | | Organization | | | | + + + + + | [facility] | [address] | [place] [address] | | | [facility] | | | | | LABORATORY | | | | + + + + + POC Glucose (12/25/2013 5:27 PM PDT) + +---------+ + + + | Component | Value | Ref Range | Performed | Pathologist | | | | | At | Signature | + +---------+ + + + | Glucose, | 121 (H) | 65 - 99 mg/dL | [facility] | | | | [facility] | | | | | | [facility] | | | | | | LABORATORY | | + +---------+ + + + + + | Specimen | + + | | + + + + + + + | Performing | Address | City/State/Zipcode | Phone Number | | Organization | | | | + + + + + | [facility] | [address] | [place] [address] | | | [facility] | | | | | LABORATORY | | | | + + + + + POC Glucose (12/25/2013 4:20 PM PDT) + +---------+ + + + | Component | Value | Ref Range | Performed | Pathologist | | | | | At | Signature | + +---------+ + + + | Glucose, | 113 (H) | 65 - 99 mg/dL | [facility] | | | [facility] | | [facility] | | [facility] | | | | | | [facility] | | | | | | [facility]ENTER | | | | | | LABORATORY | | + +---------+ + + + + + | Specimen | + + | | + + + + + + + | Performing | Address | City/State/Zipcode | Phone Number | | Organization | | | | + + + + + | [facility] | [address] | [place] [address] | | | [facility] | | | | | LABORATORY | | | | + + + + + POC Glucose (12/25/2013 3:13 PM PDT) + +---------+ + + + | Component | Value | Ref Range | Performed | Pathologist | | | | | At | Signature | + +---------+ + + + | Glucose, | 118 (H) | 65 - 99 mg/dL | [facility] | | | | | | [facility] | | | | | | [facility]ENTER | | | | | | LABORATORY | | + +---------+ + + + + + | Specimen | + + | | + + + + + + + | Performing | Address | City/State/Zipcode | Phone Number | | Organization | | | | + + + + + | [facility] | [address] | [place] [address] | | | [facility] | | | | | LABORATORY | | | | + + + + + POC Glucose (12/25/2013 2:18 PM PDT) + +---------+ + + + | Component | Value | Ref Range | Performed | Pathologist | | | | | At | Signature | + +---------+ + + + | Glucose, | 154 (H) | 65 - 99 mg/dL | [facility] | | | | [facility] | | | | | | [facility]ENTER | | | | | | LABORATORY | | + +---------+ + + + + + | Specimen | + + | | + + + + + + + | Performing | Address | City/State/Zipcode | Phone Number | | Organization | | | | + + + + + | [facility] | [address] | [place] [address] | | | [facility] | | | | | LABORATORY | | | | + + + + + POC Glucose (12/25/2013 1:50 PM PDT) + +---------+ + + + | Component | Value | Ref Range | Performed | Pathologist | | | | | At | Signature | + +---------+ + + + | Glucose, | 153 (H) | 65 - 99 mg/dL | [facility] | [facility] | [facility] | | | | | [facility] | | | | | | [facility]ENTER | | | | | | LABORATORY | | + +---------+ + + + + + | Specimen | + + | | + + + + + + + | Performing | Address | City/State/Zipcode | Phone Number | | Organization | | | | + + + + + | [facility] | [address] | [place] [address] | | | [facility] | | | | | LABORATORY | | | | + + + + + POC Glucose (12/25/2013 12:49 PM PDT) + +---------+ + + + | Component | Value | Ref Range | Performed | Pathologist | | | | | At | Signature | + +---------+ + + + | Glucose, | 156 (H) | 65 - 99 mg/dL | [facility] | | | [facility] | | | [facility] | | | | | | [facility] | | | | | | [facility] | | | | | | CENTER | | | | | | LABORATORY | | + +---------+ + + + + + | Specimen | + + | | + + + + + + + | Performing | Address | City/State/Zipcode | Phone Number | | Organization | | | | + + + + + | [facility] | [address] | [place] [address] | | | [facility] | | | | | LABORATORY | | | | + + + + + POC Glucose (12/25/2013 11:21 AM PDT) + +---------+ + + + | Component | Value | Ref Range | Performed | Pathologist | | | | | At | Signature | + +---------+ + + + | Glucose, | 161 (H) | 65 - 99 mg/dL | [facility] | [facility] | [facility] | | [facility] | | | | | | [facility] | | | | | | CENTER | | | | | | LABORATORY | | + +---------+ + + + + + | Specimen | + + | | + + + + + + + | Performing | Address | City/State/Zipcode | Phone Number | | Organization | | | | + + + + + | [facility] | [address] | [place] [address] | | | [facility] | | | | | LABORATORY | | | | + + + + + POC Glucose (12/25/2013 9:32 AM PDT) + +---------+ + + + | Component | Value | Ref Range | Performed | Pathologist | | | | | At | Signature | + +---------+ + + + | Glucose, | 107 (H) | 65 - 99 mg/dL | [facility] | [facility] | | | | | [facility] | | | | | | [facility] | | | | | | CENTER | | | | | | LABORATORY | | + +---------+ + + + + + | Specimen | + + | | + + + + + + + | Performing | Address | City/State/Zipcode | Phone Number | | Organization | | | | + + + + + | [facility] | [address] | [place] [address] | | | [facility] | | | | | LABORATORY | | | | + + + + + POC Glucose (12/25/2013 7:47 AM PDT) + +---------+ + + + | Component | Value | Ref Range | Performed | Pathologist | | | | | At | Signature | + +---------+ + + + | Glucose, | 148 (H) | 65 - 99 mg/dL | [facility] | | [facility] | [facility] | | | [facility] | | | | | | [facility] | | | | | | [facility]ENTER | | | | | | LABORATORY | | + +---------+ + + + + + | Specimen | + + | | + + + + + + + | Performing | Address | City/State/Zipcode | Phone Number | | Organization | | | | + + + + + | [facility] | [address] | [place] [address] | | | [facility] | | | | | LABORATORY | | | | + + + + + Potassium Whole Blood (12/25/2013 7:05 AM PDT) + +-------+ + + + | Component | Value | Ref Range | Performed | Pathologist | | | | | At | Signature | + +-------+ + + + | K | 4.6 | 3.5 - 5.0 | [facility] | | | | | mmol/L | [facility] | | | | | | [facility] | | | | | | MEDICAL | | | | | | CENTER | | | | | | LABORATORY | | + +-------+ + + + + + | Specimen | + + | | + + + + + + + | Performing | Address | City/State/Zipcode | Phone Number | | Organization | | | | + + + + + | [facility] | [address] | [place] [address] | | | [facility] | | | | | LABORATORY | | | | + + + + + Calcium, Ionized, Respiratory (12/25/2013 7:05 AM PDT) + + + + + + | Component | Value | Ref Range | Performed | Pathologist | | | | | At | Signature | + + + + + + | Calcium, | 4.85 | 4.75 - 5.30 | [facility] | | | Ionized | | mg/dL | [facility] | | | | | | [facility] | | | | | | MEDICAL | | | | | | CENTER | | | | | | LABORATORY | | + + + + + + | Calcium, pH | 4.74 (L) | 4.75 - 5.30 | [facility] | | | Normalized | | mg/dL | [facility] | | | | | | [facility] | | | | | | MEDICAL | | | | | | CENTER | | | | | | LABORATORY | | + + + + + + + + | Specimen | + + | | + + + + + + + | Performing | Address | City/State/Zipcode | Phone Number | | Organization | | | | + + + + + | [facility] | [address] | [place] [address] | | | [facility] | | | | | LABORATORY | | | | + + + + + Glucose, Respiratory (12/25/2013 7:05 AM PDT) + +---------+ + + + | Component | Value | Ref Range | Performed | Pathologist | | | | | At | Signature | + +---------+ + + + | Glucose | 141 (H) | 65 - 99 mg/dL | [facility] | | | [facility] | | [facility] | [facility] | | | | | | [facility] | | | | | | CENTER | | | | | | LABORATORY | | + +---------+ + + + + + | Specimen | + + | | + + + + + + + | Performing | Address | City/State/Zipcode | Phone Number | | Organization | | | | + + + + + | [facility] | [address] | [place] [address] | | | [facility] | | | | | LABORATORY | | | | + + + + + Blood Gas, Arterial (12/25/2013 7:05 AM PDT) + + + + + + | Component | Value | Ref Range | Performed | Pathologist | | | | | At | Signature | + + + + + + | pH, | 7.36 (L) | 7.37 - 7.47 | [facility] | | | Arterial | | | [facility] | | | | | | [facility] | | | | | | MEDICAL | | | | | | CENTER | | | | | | LABORATORY | | + + + + + + | pCO2, | 40 | 32 - 43 mm Hg | [facility] | | | Arterial | | | [facility] | | | | | | HE[facility] | | | | | | MEDICAL | | | | | | CENTER | | | | | | LABORATORY | | + + + + + + | pO2, | 103 (H) | 65 - 80 mm Hg | [facility] | | | Arterial | | | [facility] | | | | | | [facility] | | | | | | MEDICAL | | | | | | CENTER | | | | | | LABORATORY | | + + + + + + | Oxygen | 11.3 (L) | 15 - 23 Vol % | [facility] | | | Content, | | | [facility] | | | Arterial | | | HEART | | | | | | MEDICAL | | | | | | CENTER | | | | | | LABORATORY | | + + + + + + | O2 | 96.3 | 92.0 - 99.9 % | [facility] | | | Saturation, | | | [facility] | | | Arterial | | | HEART | | | | | | MEDICAL | | | | | | CENTER | | | | | | LABORATORY | | + + + + + + | HCO3, | 22.0 (L) | 23.0 - 28.0 | [facility] | | | Arterial | | mmol/L | [facility] | | | | | | HE[facility] | | | | | | MEDICAL | | | | | | CENTER | | | | | | LABORATORY | | + + + + + + | Base | 2.7 (H) | 0.0 - 2.5 | [facility] | | | deficit | | mmol/L | [facility] | | | | | | [facility] | | | | | | MEDICAL | | | | | | CENTER | | | | | | LABORATORY | | + + + + + + | Hgb, Blood | 8.2 (L) | 11.3 - 15.5 | [facility] | | | Gas | | g/dL | [facility] | | | | | | [facility] | | | | | | MEDICAL | | | | | | CENTER | | | | | | LABORATORY | | + + + + + + | Carboxyhemo | 0.7 (L) | 1.0 - 3.0 % | [facility] | | | globin | | | [facility] | | | | | | HEART | | | | | | MEDICAL | | | | | | CENTER | | | | | | LABORATORY | | + + + + + + | Methemoglob | 0.7 | 0.4 - 1.5 % | [facility] | | | in, Venous | | | [facility] | | | | | | HE[facility] | | | | | | MEDICAL | | | | | | CENTER | | | | | | LABORATORY | | + + + + + + | L/min of O2 | 2L NC OX 100% | % | [facility] | | | | | | [facility] | | | | | | [facility] | | | | | | MEDICAL | | | | | | CENTER | | | | | | LABORATORY | | + + + + + + + + | Specimen | + + | Blood specimen | | (specimen) | + + + + + + + | Performing | Address | City/State/Zipcode | Phone Number | | Organization | | | | + + + + + | [facility] | [address] | [place] [address] | | | [facility] | | | | | LABORATORY | | | | + + + + + POC Glucose (12/25/2013 6:39 AM PDT) + +---------+ + + + | Component | Value | Ref Range | Performed | Pathologist | | | | | At | Signature | + +---------+ + + + | Glucose, | 136 (H) | 65 - 99 mg/dL | [facility] | | | POC | | | [facility] | | | | | | [facility] | | | | | | [facility]ICAL | | | | | | CENTER | | | | | | LABORATORY | | + +---------+ + + + + + | Specimen | + + | | + + + + + + + | Performing | Address | City/State/Zipcode | Phone Number | | Organization | | | | + + + + + | [facility] | [address] | [place] [address] | | | [facility] | | | | | LABORATORY | | | | + + + + + ECG 12 lead (12/25/2013 4:36 AM PDT) + + | Specimen | + + | | + + + + + | Narrative | Performed At | + + + | RR Interval: | [facility] | | msP-R Interval: msQRSD Interval: msQT Interval: msQTC | [facility] | | Interval: msHeartrate: bpmP Willard: degQRS Willard: degT Wave Willard: | | | degI: 40 Willard: degT: 40 Willard: degT: 40 Willard: degST Willard: | | | degSeverity: - ABNORMAL ECG -INTERP: SINUS RHYTHMINTERP: LEFT | | | VENTRICULAR HYPERTROPHYINTERP: ANTERIOR ST ELEVATION, PROBABLY DUE | | | TO LVH | | |QRS Willard: deg | | |T Wave Willard: deg | | |I: 40 Willard: deg | | |T: 40 Willard: deg | | |T: 40 Willard: deg | | |ST Willard: deg | | |Severity: - ABNORMAL ECG - | | |INTERP: SINUS RHYTHM | | |INTERP: LEFT VENTRICULAR HYPERTROPHY | | |INTERP: ANTERIOR ST ELEVATION, PROBABLY DUE TO LVH | | + + + + + | Transcriptions | + + | DylonBasil fisher - 12/25/2013 12:00 AM PDT | + + + + + + + | Performing | Address | City/State/Zipcode | Phone Number | | Organization | | | | + + + + + | [facility] | [address] | [place] [address] | [phone] | + + + + + XR Chest AP Portable (12/25/2013 4:18 AM PDT) + + | Specimen | + + | | + + + + + | Narrative | Performed At | + + + | CHEST, AP PORTABLE CLINICAL INFORMATION: Post open heart | [facility] | | with a chest tube. COMPARISON: Yesterday FINDINGS: Patient | | | has been extubated and an NG tube withdrawn. Right jugular venous | | | catheter tip overlies the SVC. Lung volumes are low. Mild | | | subsegmental atelectasis in the mid left lung and medial left lung | | | base. No pneumothorax. IMPRESSION: Hypoventilatory postoperative | | | chest. No pneumothorax. | | + + + + + | Procedure Note | + + | Carlos Martínez Results In - 12/25/2013 4:45 AM PDT | | | | CHEST, AP PORTABLE | | | | CLINICAL INFORMATION: | | Post open heart with a chest tube. | | | | COMPARISON: | | Yesterday | | | | FINDINGS: | | Patient has been extubated and an NG tube withdrawn. Right jugular | | venous catheter tip overlies the SVC. | | | | Lung volumes are low. Mild subsegmental atelectasis in the mid left | | lung and medial left lung base. No pneumothorax. | | | | IMPRESSION: | | Hypoventilatory postoperative chest. No pneumothorax. | + + + + + + + | Performing | Address | City/State/Zipcode | Phone Number | | Organization | | | | + + + + + | [facility] | [facility], [address] | [place] [address] | [phone] | | | [place] | | | + + + + + CBC no Differential (12/25/2013 3:46 AM PDT) + + + + + + | Component | Value | Ref Range | Performed | Pathologist | | | | | At | Signature | + + + + + + | WBC | 11.6 (H) | 3.8 - 11.0 K/uL | [facility] | | [facility] | | [facility] | | | | | | [facility] | | | | | | [facility] | | | | | | LABORATORY | | + + + + + + | RBC | 2.59 (L) | 3.70 - 5.10 | [facility] | | | | | M/uL | [facility] | | | | | | HE[facility] | | | | | | MEDICAL | | | | | | CENTER | | | | | | LABORATORY | | + + + + + + | Hemoglobin | 8.1 (L) | 11.3 - 15.5 | [facility] | | | | | g/dL | [facility] | | | | | | [facility] | | | | | | MEDICAL | | | | | | CENTER | | | | | | LABORATORY | | + + + + + + | Hematocrit | 24.3 (L) | 34.0 - 46.0 % | [facility] | | | | | | [facility] | | | | | | [facility] | | | | | | MEDICAL | | | | | | CENTER | | | | | | LABORATORY | | + + + + + + | MCV | 93.7 | 80.0 - 100.0 fL | [facility] | | | | | | [facility] | | | | | | [facility] | | | | | | MED[facility] | | | | | | CENTER | | | | | | LABORATORY | | + + + + + + | MCH | 31.2 | 27.0 - 34.0 pg | [facility] | | | | | | [facility] | | | | | | [facility] | | | | | | MEDICAL | | | | | | CENTER | | | | | | LABORATORY | | + + + + + + | MCHC | 33.3 | 32.0 - 35.5 | [facility] | | | | | g/dL | [facility] | | | | | | [facility] | | | | | | MEDICAL | | | | | | CENTER | | | | | | LABORATORY | | + + + + + + | RDW-CV | 13.3 | 11.0 - 15.5 % | [facility] | | | | | | [facility] | | | | | | [facility] | | | | | | MED[facility] | | | | | | CENTER | | | | | | LABORATORY | | + + + + + + | Platelet | 123 (L) | 150 - 400 K/uL | [facility] | | | Count | | | [facility] | | | | | | [facility] | | | | | | MEDICAL | | | | | | CENTER | | | | | | LABORATORY | | + + + + + + + + | Specimen | + + | Blood specimen | | (specimen) | + + + + + + + | Performing | Address | City/State/Zipcode | Phone Number | | Organization | | | | + + + + + | [facility] | [address] | [place] [address] | | | [facility] | | | | | LABORATORY | | | | + + + + + Basic Metabolic Panel (12/25/2013 3:41 AM PDT) + + + + + + | Component | Value | Ref Range | Performed | Pathologist | | | | | At | Signature | + + + + + + | Na | 139 | 135 - 145 | [facility] | | | | | mmol/L | [facility] | | | | | | [facility] | | | | | | MEDICAL | | | | | | CENTER | | | | | | LABORATORY | | + + + + + + | K | 3.9 | 3.5 - 5.0 | [facility] | | | | | mmol/L | [facility] | | | | | | [facility] | | | | | | MEDICAL | | | | | | CENTER | | | | | | LABORATORY | | + + + + + + | Cl | 110 (H) | 99 - 109 mmol/L | [facility] | | | | | | [facility] | | | | | | [facility] | | | | | | MED[facility] | | | | | | CENTER | | | | | | LABORATORY | | + + + + + + | CO2 | 23 | 21 - 28 mmol/L | [facility] | | | | | | [facility] | | | | | | [facility] | | | | | | MED[facility] | | | | | | CENTER | | | | | | LABORATORY | | + + + + + + | Glucose | 122 (H)Comment: Czech | 65 - 99 mg/dL | [facility] | | | | Diabetes Association | | [facility] | | | | diagnostic categories | | HEART | | | | for non adults: | | MEDICAL | | | | Impaired fasting | | CENTER | | | | glucose 100 to 125 | | LABORATORY | | | | mg/dL. A fasting | | | | | | glucose result of 126 | | | | | | mg/dL or greater | | | | | | indicates diabetes if | | | | | | the abnormality is | | | | | | confirmed on a | | | | | | subsequent day. A | | | | | | random glucose result of | | | | | | greater than 200 mg/dL | | | | | | indicates diabetes if | | | | | | the abnormality is | | | | | | confirmed on a | | | | | | subsequent day. | | | | + + + + + + | BUN | 10 | 8 - 25 mg/dL | [facility] | | | | | | [facility] | | | | | | [facility] | | | | | | MEDICAL | | | | | | CENTER | | | | | | LABORATORY | | + + + + + + | Creatinine | 1.08 (H)Comment: IDMS | 0.50 - 1.00 | [facility] | | | | traceable creatinine | mg/dL | [facility] | | | | | | HE[facility] | | | | | | MEDICAL | | | | | | CENTER | | | | | | LABORATORY | | + + + + + + | Calcium | 8.4 (L) | 8.5 - 10.2 | [facility] | | | | | mg/dL | [facility] | | | | | | HE[facility] | | | | | | MEDICAL | | | | | | CENTER | | | | | | LABORATORY | | + + + + + + | Anion Gap | 6 | 5 - 16 mmol/L | [facility] | | | | | | [facility] | | | | | | [facility] | | | | | | MEDICAL | | | | | | CENTER | | | | | | LABORATORY | | + + + + + + | Estimated | 50 (L)Comment: GFR <60: | >60 | [facility] | | | GFR | Chronic kidney disease, | ml/min/1.73m2 | [facility] | | | | if found over a 3 month | | HEART | | | | period.GFR <15: Kidney | | MEDICAL | | | | failure.For | | CENTER | | | | Americans, multiply the | | LABORATORY | | | | calculated GFR by 1.210 | | | | + + + + + + + + | Specimen | + + | Blood specimen | | (specimen) | + + + + + + + | Performing | Address | City/State/Zipcode | Phone Number | | Organization | | | | + + + + + | [facility] | [address] | [place] [address] | | | [facility] | | | | | LABORATORY | | | | + + + + + POC Glucose (12/25/2013 2:00 AM PDT) + +---------+ + + + | Component | Value | Ref Range | Performed | Pathologist | | | | | At | Signature | + +---------+ + + + | Glucose, | 137 (H) | 65 - 99 mg/dL | [facility] | | | POC | | | [facility] | | | | | | HEART | | | | | | MEDICAL | | | | | | CENTER | | | | | | LABORATORY | | + +---------+ + + + + + | Specimen | + + | | + + + + + + + | Performing | Address | City/State/Zipcode | Phone Number | | Organization | | | | + + + + + | [facility] | [address] | [place] [address] | | | [facility] | | | | | LABORATORY | | | | + + + + + Potassium (12/25/2013 12:36 AM PDT) + +-------+ + + + | Component | Value | Ref Range | Performed | Pathologist | | | | | At | Signature | + +-------+ + + + | K | 3.6 | 3.5 - 5.0 | [facility] | | | | | mmol/L | [facility] | | | | | | HE[facility] | | | | | | MEDICAL | | | | | | CENTER | | | | | | LABORATORY | | + +-------+ + + + + + | Specimen | + + | Blood specimen | | (specimen) | + + + + + + + | Performing | Address | City/State/Zipcode | Phone Number | | Organization | | | | + + + + + | [facility] | [address] | [place] [address] | | | [facility] | | | | | LABORATORY | | | | + + + + + CBC no Differential (12/25/2013 12:36 AM PDT) + + + + + + | Component | Value | Ref Range | Performed | Pathologist | | | | | At | Signature | + + + + + + | WBC | 13.0 (H) | 3.8 - 11.0 K/uL | [facility] | | | | | | [facility] | | | | | | [facility] | | | | | | MEDICAL | | | | | | CENTER | | | | | | LABORATORY | | + + + + + + | RBC | 2.80 (L) | 3.70 - 5.10 | [facility] | | | | | M/uL | [facility] | | | | | | HE[facility] | | | | | | MEDICAL | | | | | | CENTER | | | | | | LABORATORY | | + + + + + + | Hemoglobin | 8.7 (L) | 11.3 - 15.5 | [facility] | | | | | g/dL | [facility] | | | | | | HE[facility] | | | | | | MEDICAL | | | | | | CENTER | | | | | | LABORATORY | | + + + + + + | Hematocrit | 26.6 (L) | 34.0 - 46.0 % | [facility] | | | | | | [facility] | | | | | | [facility] | | | | | | MEDICAL | | | | | | CENTER | | | | | | LABORATORY | | + + + + + + | MCV | 94.8 | 80.0 - 100.0 fL | [facility] | | | | | | [facility] | | | | | | [facility] | | | | | | MEDICAL | | | | | | CENTER | | | | | | LABORATORY | | + + + + + + | MCH | 31.2 | 27.0 - 34.0 pg | [facility] | | | | | | [facility] | | | | | | [facility] | | | | | | MEDICAL | | | | | | CENTER | | | | | | LABORATORY | | + + + + + + | MCHC | 32.9 | 32.0 - 35.5 | [facility] | | | | | g/dL | [facility] | | | | | | HEART | | | | | | MEDICAL | | | | | | CENTER | | | | | | LABORATORY | | + + + + + + | RDW-CV | 13.3 | 11.0 - 15.5 % | [facility] | | | | | | [facility] | | | | | | HE[facility] | | | | | | MEDICAL | | | | | | CENTER | | | | | | LABORATORY | | + + + + + + | Platelet | 134 (L) | 150 - 400 K/uL | [facility] | | | [facility] | | [facility] | | | [facility] | | [facility] | | | | | | [facility] | | | | | | [facility]ENTER | | | | | | LABORATORY | | + + + + + + + + | Specimen | + + | Blood specimen | | (specimen) | + + + + + + + | Performing | Address | City/State/Zipcode | Phone Number | | Organization | | | | + + + + + | [facility] | [address] | [place] [address] | | | [facility] | | | | | LABORATORY | | | | + + + + + POC Glucose (12/25/2013 12:29 AM PDT) + +---------+ + + + | Component | Value | Ref Range | Performed | Pathologist | | | | | At | Signature | + +---------+ + + + | Glucose, | 167 (H) | 65 - 99 mg/dL | [facility] | | | P[facility] | | [facility] | | | | | | [facility] | | | | | | [facility]ICAL | | | | | | [facility]ENTER | | | | | | LABORATORY | | + +---------+ + + + + + | Specimen | + + | | + + + + + + + | Performing | Address | City/State/Zipcode | Phone Number | | Organization | | | | + + + + + | [facility] | [address] | [place] [address] | | | [facility] | | | | | LABORATORY | | | | + + + + + Glucose, Respiratory (12/24/2013 10:20 PM PDT) + +---------+ + + + | Component | Value | Ref Range | Performed | Pathologist | | | | | At | Signature | + +---------+ + + + | Glucose | 185 (H) | 65 - 99 mg/dL | [facility] | | [facility] | | | | | | [facility] | | | | | | CENTER | | | | | | LABORATORY | | + +---------+ + + + + + | Specimen | + + | | + + + + + + + | Performing | Address | City/State/Zipcode | Phone Number | | Organization | | | | + + + + + | [facility] | [address] | [place] [address] | | | [facility] | | | | | LABORATORY | | | | + + + + + Blood Gas, Arterial (12/24/2013 10:20 PM PDT) + + + + + + | Component | Value | Ref Range | Performed | Pathologist | | | | | At | Signature | + + + + + + | pH, | 7.34 (L) | 7.37 - 7.47 | [facility] | | | Arterial | | | [facility] | | | | | | [facility] | | | | | | MEDICAL | | | | | | CENTER | | | | | | LABORATORY | | + + + + + + | pCO2, | 41 | 32 - 43 mm Hg | [facility] | | | Arterial | | | [facility] | | | | | | [facility] | | | | | | MEDICAL | | | | | | CENTER | | | | | | LABORATORY | | + + + + + + | pO2, | 106 (H) | 65 - 80 mm Hg | [facility] | | | Arterial | | | [facility] | | | | | | [facility] | | | | | | MEDICAL | | | | | | CENTER | | | | | | LABORATORY | | + + + + + + | Oxygen | 12.9 (L) | 15 - 23 Vol % | [facility] | | | Content, | | | [facility] | | | Arterial | | | HEART | | | | | | MEDICAL | | | | | | CENTER | | | | | | LABORATORY | | + + + + + + | O2 | 96.5 | 92.0 - 99.9 % | [facility] | | | Saturation, | | | [facility] | | | Arterial | | | HEART | | | | | | MEDICAL | | | | | | CENTER | | | | | | LABORATORY | | + + + + + + | HCO3, | 21.5 (L) | 23.0 - 28.0 | [facility] | | | Arterial | | mmol/L | [facility] | | | | | | HE[facility] | | | | | | MEDICAL | | | | | | CENTER | | | | | | LABORATORY | | + + + + + + | Base | 3.5 (H) | 0.0 - 2.5 | [facility] | | | deficit | | mmol/L | [facility] | | | | | | [facility] | | | | | | [facility] | | | | | | LABORATORY | | + + + + + + | Hgb, Blood | 9.4 (L) | 11.3 - 15.5 | [facility] | | | Gas | | g/dL | [facility] | | | | | [facility] | | | | | | [facility] | | | | | | [facility]ENTER | | | | | | LABORATORY | | + + + + + + | Carboxyhemo | 0.7 (L) | 1.0 - 3.0 % | [facility] | | | globin | | | [facility] | | | | | [facility] | | | | | | [facility] | | | | | | [facility]ENTER | | | | | | LABORATORY | | + + + + + + | Methemoglob | 0.4 | 0.4 - 1.5 % | [facility] | | | in, Venous | | | [facility] | | | | | | [facility] | | | | | | [facility] | | | | | | CENTER | | | | | | LABORATORY | | + + + + + + | L/min of O2 | 40% PSV 10/5 OX100% RR17 | % | [facility] | | | | | | [facility] | [facility] | [facility] | | | | | | [facility] | | | | | | [facility]ENTER | | | | | | LABORATORY | | + + + + + + + + | Specimen | + + | Blood specimen | | (specimen) | + + + + + + + | Performing | Address | City/State/Zipcode | Phone Number | | Organization | | | | + + + + + | [facility] | [address] | [place] [address] | | | [facility] | | | | | LABORATORY | | | | + + + + + Potassium Whole Blood (12/24/2013 9:05 PM PDT) + +-------+ + + + | Component | Value | Ref Range | Performed | Pathologist | | | | | At | Signature | + +-------+ + + + | K | 4.0 | 3.5 - 5.0 | [facility] | | | | | mmol/L | [facility] | | [facility] | | | | | | [facility] | | | | | | CENTER | | | | | | LABORATORY | | + +-------+ + + + + + | Specimen | + + | | + + + + + + + | Performing | Address | City/State/Zipcode | Phone Number | | Organization | | | | + + + + + | [facility] | [address] | [place] [address] | | | [facility] | | | | | LABORATORY | | | | + + + + + Glucose, Respiratory (12/24/2013 9:05 PM PDT) + +---------+ + + + | Component | Value | Ref Range | Performed | Pathologist | | | | | At | Signature | + +---------+ + + + | Glucose | 146 (H) | 65 - 99 mg/dL | [facility] | | | | [facility] | | | | | | [facility] | | | | | | [facility]ENTER | | | | | | LABORATORY | | + +---------+ + + + + + | Specimen | + + | | + + + + + + + | Performing | Address | City/State/Zipcode | Phone Number | | Organization | | | | + + + + + | [facility] | [address] | [place] [address] | | | [facility] | | | | | LABORATORY | | | | + + + + + Blood Gas, Arterial (12/24/2013 9:05 PM PDT) + + + + + + | Component | Value | Ref Range | Performed | Pathologist | | | | | At | Signature | + + + + + + | pH, | 7.38 | 7.37 - 7.47 | [facility] | | | Arterial | | | [facility] | | | | | [facility] | | | | | | [facility] | | | | | | CENTER | | | | | | LABORATORY | | + + + + + + | pCO2, | 38 | 32 - 43 mm Hg | [facility] | | | Arterial | | | [facility] | | | | | | [facility] | | | | | | [facility] | | | | | | CENTER | | | | | | LABORATORY | | + + + + + + | pO2, | 108 (H) | 65 - 80 mm Hg | [facility] | | | Arterial | | | [facility] | | | | | | [facility] | | | | | | [facility] | | | | | | CENTER | | | | | | LABORATORY | | + + + + + + | Oxygen | 13.1 (L) | 15 - 23 Vol % | [facility] | | | Content, | | | [facility] | | | Arter[facility] | | | HEART | | | | | | MEDICAL | | | | | | CENTER | | | | | | LABORATORY | | + + + + + + | O2 | 96.9 | 92.0 - 99.9 % | [facility] | | | Saturation, | | | [facility] | | | Arterial | | | HEART | | | | | | MEDICAL | | | | | | CENTER | | | | | | LABORATORY | | + + + + + + | HCO3, | 22.1 (L) | 23.0 - 28.0 | [facility] | | | Arterial | | mmol/L | [facility] | | | | | | [facility] | | | | | | MEDICAL | | | | | | CENTER | | | | | | LABORATORY | | + + + + + + | Base | 2.1 | 0.0 - 2.5 | [facility] | | | deficit | | mmol/L | [facility] | | | | | | [facility] | | | | | | MEDICAL | | | | | | CENTER | | | | | | LABORATORY | | + + + + + + | Hgb, Blood | 9.5 (L) | 11.3 - 15.5 | [facility] | | | Gas | | g/dL | [facility] | | | | | | [facility] | | | | | | MEDICAL | | | | | | CENTER | | | | | | LABORATORY | | + + + + + + | Carboxyhemo | 0.6 (L) | 1.0 - 3.0 % | [facility] | | | globin | | | [facility] | | | | | | [facility] | | | | | | MEDICAL | | | | | | CENTER | | | | | | LABORATORY | | + + + + + + | Methemoglob | 0.6 | 0.4 - 1.5 % | [facility] | | | in, Venous | | | [facility] | | | | | | [facility] | | | | | | MEDICAL | | | | | | CENTER | | | | | | LABORATORY | | + + + + + + | L/min of O2 | 40% HCT=29.3 SIMV10 | % | [facility] | | | | VT550 PS8 P5 OX100% | | [facility] | | | | EtCO2 30 RR17 | | HEART | | | | | | MEDICAL | | | | | | CENTER | | | | | | LABORATORY | | + + + + + + + + | Specimen | + + | Blood specimen | | (specimen) | + + + + + + + | Performing | Address | City/State/Zipcode | Phone Number | | Organization | | | | + + + + + | [facility] | [address] | [place] [address] | | | [facility] | | | | | LABORATORY | | | | + + + + + ECG 12 lead (12/24/2013 7:32 PM PDT) + + | Specimen | + + | | + + + + + | Narrative | Performed At | + + + | RR Interval: | [facility] | | msP-R Interval: msQRSD Interval: msQT Interval: msQTC | [facility] | | Interval: msHeartrate: bpmP Willard: degQRS Willard: degT Wave Willard: | | | degI: 40 Willard: degT: 40 Willard: degT: 40 Willard: degST Willard: | | | degSeverity: - ABNORMAL ECG -INTERP: SINUS RHYTHMINTERP: | | | PROBABLE LVH WITH SECONDARY REPOL ABNRM | | |P Willard: deg | | |QRS Willard: deg | | |T Wave Willard: deg | | |I: 40 Willard: deg | | |T: 40 Willard: deg | | |T: 40 Willard: deg | | |ST Willard: deg | | |Severity: - ABNORMAL ECG - | | |INTERP: SINUS RHYTHM | | |INTERP: PROBABLE LVH WITH SECONDARY REPOL ABNRM | | + + + + + | Transcriptions | + + | [place] - 12/24/2013 12:00 AM PDT | + + + + + + + | Performing | Address | City/State/Zipcode | Phone Number | | Organization | | | | + + + + + | [facility] | [address] | [place] [address] | [phone] | + + + + + Potassium (12/24/2013 7:27 PM PDT) + +-------+ + + + | Component | Value | Ref Range | Performed | Pathologist | | | | | At | Signature | + +-------+ + + + | K | 4.1 | 3.5 - 5.0 | [facility] | | | | | mmol/L | [facility] | | | | | | [facility] | | | | | | MEDICAL | | | | | | CENTER | | | | | | LABORATORY | | + +-------+ + + + + + | Specimen | + + | Blood specimen | | (specimen) | + + + + + + + | Performing | Address | City/State/Zipcode | Phone Number | | Organization | | | | + + + + + | [facility] | [address] | [place] [address] | | | [facility] | | | | | LABORATORY | | | | + + + + + CBC no Differential (12/24/2013 7:26 PM PDT) + + + + + + | Component | Value | Ref Range | Performed | Pathologist | | | | | At | Signature | + + + + + + | WBC | 7.3 | 3.8 - 11.0 K/uL | [facility] | | | | | | [facility] | | [facility] | | [facility] | | | | | | [facility] | | | | | | CENTER | | | | | | LABORATORY | | + + + + + + | RBC | 2.83 (L) | 3.70 - 5.10 | [facility] | | | | | M/uL | [facility] | | | | | | [facility] | | | | | | MEDICAL | | | | | | CENTER | | | | | | LABORATORY | | + + + + + + | Hemoglobin | 8.8 (L) | 11.3 - 15.5 | [facility] | | | | | g/dL | [facility] | | | | | | [facility] | | | | | | MEDICAL | | | | | | CENTER | | | | | | LABORATORY | | + + + + + + | Hematocrit | 26.4 (L) | 34.0 - 46.0 % | [facility] | | | | | | [facility] | | | | | | [facility] | | | | | | [facility] | | | | | | [facility]ENTER | | | | | | LABORATORY | | + + + + + + | MCV | 93.3 | 80.0 - 100.0 fL | [facility] | | | | | | [facility] | | | | | | [facility] | | | | | | [facility] | | | | | | CENTER | | | | | | LABORATORY | | + + + + + + | MCH | 31.0 | 27.0 - 34.0 pg | [facility] | | | | | | [facility] | | | | | | [facility] | | | | | | [facility] | | | | | | CENTER | | | | | | LABORATORY | | + + + + + + | MCHC | 33.2 | 32.0 - 35.5 | [facility] | | | | | g/dL | [facility] | | | | | | [facility] | | | | | | MEDICAL | | | | | | CENTER | | | | | | LABORATORY | | + + + + + + | RDW-CV | 13.2 | 11.0 - 15.5 % | [facility] | | | | | | [facility] | | | | | | [facility] | | | | | | [facility] | | | | | | CENTER | | | | | | LABORATORY | | + + + + + + | Platelet | 98 (L) | 150 - 400 K/uL | [facility] | | | Count | | | [facility] | | | | | | [facility] | | | | | | MEDICAL | | | | | | CENTER | | | | | | LABORATORY | | + + + + + + + + | Specimen | + + | Blood specimen | | (specimen) | + + + + + + + | Performing | Address | City/State/Zipcode | Phone Number | | Organization | | | | + + + + + | [facility] | [address] | [place] [address] | | | [facility] | | | | | LABORATORY | | | | + + + + + Potassium Whole Blood (12/24/2013 7:25 PM PDT) + +-------+ + + + | Component | Value | Ref Range | Performed | Pathologist | | | | | At | Signature | + +-------+ + + + | K | 4.2 | 3.5 - 5.0 | [facility] | | | | | mmol/L | [facility] | | | | | | [facility] | | | | | | MEDICAL | | | | | | CENTER | | | | | | LABORATORY | | + +-------+ + + + + + | Specimen | + + | | + + + + + + + | Performing | Address | City/State/Zipcode | Phone Number | | Organization | | | | + + + + + | [facility] | [address] | [place] [address] | | | [facility] | | | | | LABORATORY | | | | + + + + + Glucose, Respiratory (12/24/2013 7:25 PM PDT) + +---------+ + + + | Component | Value | Ref Range | Performed | Pathologist | | | | | At | Signature | + +---------+ + + + | Glucose | 108 (H) | 65 - 99 mg/dL | [facility] | | | | | | [facility] | | | | | | [facility] | | | | | | [facility] | | | | | | CENTER | | | | | | LABORATORY | | + +---------+ + + + + + | Specimen | + + | | + + + + + + + | Performing | Address | City/State/Zipcode | Phone Number | | Organization | | | | + + + + + | [facility] | [address] | [place] [address] | | | [facility] | | | | | LABORATORY | | | | + + + + + Blood Gas, Arterial (12/24/2013 7:25 PM PDT) + + + + + + | Component | Value | Ref Range | Performed | Pathologist | | | | | At | Signature | + + + + + + | pH, | 7.37 | 7.37 - 7.47 | [facility] | | | Arterial | | | [facility] | | | | | | [facility] | | | | | | MEDICAL | | | | | | CENTER | | | | | | LABORATORY | | + + + + + + | pCO2, | 41 | 32 - 43 mm Hg | [facility] | | | Arterial | | | [facility] | | | | | | [facility] | | | | | | MEDICAL | | | | | | CENTER | | | | | | LABORATORY | | + + + + + + | pO2, | 121 (H) | 65 - 80 mm Hg | [facility] | | | Arterial | | | [facility] | | | | | | [facility] | | | | | | MEDICAL | | | | | | CENTER | | | | | | LABORATORY | | + + + + + + | Oxygen | 12.4 (L) | 15 - 23 Vol % | [facility] | | | Content, | | | [facility] | | | Arterial | | | HEART | | | | | | MEDICAL | | | | | | CENTER | | | | | | LABORATORY | | + + + + + + | O2 | 97.2 | 92.0 - 99.9 % | [facility] | | | Saturation, | | | [facility] | | | Arterial | | | HEART | | | | | | MEDICAL | | | | | | CENTER | | | | | | LABORATORY | | + + + + + + | HCO3, | 23.1 | 23.0 - 28.0 | [facility] | | | Arterial | | mmol/L | [facility] | | | | | | [facility] | | | | | | MEDICAL | | | | | | CENTER | | | | | | LABORATORY | | + + + + + + | Base | 1.5 | 0.0 - 2.5 | [facility] | | | deficit | | mmol/L | [facility] | | | | | | [facility] | | | | | | MEDICAL | | | | | | CENTER | | | | | | LABORATORY | | + + + + + + | Hgb, Blood | 8.9 (L) | 11.3 - 15.5 | [facility] | | | Gas | | g/dL | [facility] | | | | | | HE[facility] | | | | | | MEDICAL | | | | | | CENTER | | | | | | LABORATORY | | + + + + + + | Carboxyhemo | 1.0 | 1.0 - 3.0 % | [facility] | | | globin | | | [facility] | | | | | | HE[facility] | | | | | | MEDICAL | | | | | | CENTER | | | | | | LABORATORY | | + + + + + + | Methemoglob | 0.7 | 0.4 - 1.5 % | [facility] | | | in, Venous | | | [facility] | | | | | | HE[facility] | | | | | | MEDICAL | | | | | | CENTER | | | | | | LABORATORY | | + + + + + + | L/min of O2 | 50% SIMV10 550 PS8 P5 | % | [facility] | | | | | | [facility] | | | | | | [facility] | | | | | | MEDICAL | | | | | | CENTER | | | | | | LABORATORY | | + + + + + + | Additional | [id number] | | [facility] | | | Information | | | [facility] | | | | | | [facility] | | | | | | MEDICAL | | | | | | CENTER | | | | | | LABORATORY | | + + + + + + + + | Specimen | + + | Blood specimen | | (specimen) | + + + + + + + | Performing | Address | City/State/Zipcode | Phone Number | | Organization | | | | + + + + + | [facility] | [address] | [place] [address] | | | [facility] | | | | | LABORATORY | | | | + + + + + MRSA NAAT (12/24/2013 7:22 PM PDT) + + + + + + | Component | Value | Ref Range | Performed | Pathologist | | | | | At | Signature | + + + + + + | Specimen | Nasal | | [facility] | | | Source | | | [facility] | | | | | | [facility] | | | | | | MEDICAL | | | | | | CENTER | | | | | | LABORATORY | | + + + + + + | RESULT | Negative for MRSA by PCR | | [facility] | | | | | | [facility] | | | | | | [facility] | | | | | | MED[facility] | | | | | | CENTER | | | | | | LABORATORY | | + + + + + + | Status | 12/24/2013 Final | | [facility] | | | | | | [facility] | | | | | | [facility] | | | | | | MED[facility] | | | | | | CENTER | | | | | | LABORATORY | | + + + + + + + + | Specimen | + + | Respiratory sample | | (specimen) - Nasal | + + + + + + + | Performing | Address | City/State/Zipcode | Phone Number | | Organization | | | | + + + + + | [facility] | [address] | [place] [address] | | | [facility] | | | | | LABORATORY | | | | + + + + + XR Chest AP Portable (12/24/2013 7:11 PM PDT) + + | Specimen | + + | | + + + + + | Narrative | Performed At | + + + | CHEST CLINICAL INFORMATION: Post operative line | [facility] | | placement, instrument verification. COMPARISON: 12/23/2013. | | | FINDINGS: A right internal jugular catheter is seen with tip in the | | | expected location of the superior vena cava. The patient is | | | intubated and the tip of the endotracheal tube is approximately 2 cm | | | above the level of the aaron. Sternal wires and surgical clips | | | are seen. Extensive opacification is seen in the right left lower | | | lung field. Drains are present. The right lung is fairly clear. | | | IMPRESSION: 1. Right internal jugular line with tip in the expected | | | location of the superior vena cava. 2. Endotracheal tube with tip | | | approximately 2 cm above the level of the aaron. | | + + + + + | Procedure Note | + + | Mauricio, Rad Results In - 12/24/2013 7:21 PM PDT | | | | CHEST | | | | CLINICAL INFORMATION: | | Post operative line placement, instrument verification. | | | | COMPARISON: | | 12/23/2013. | | | | FINDINGS: | | A right internal jugular catheter is seen with tip in the expected | | location of the superior vena cava. | | | | The patient is intubated and the tip of the endotracheal tube is | | approximately 2 cm above the level of the aaron. | | | | Sternal wires and surgical clips are seen. | | | | Extensive opacification is seen in the right left lower lung field. | | Drains are present. The right lung is fairly clear. | | | | IMPRESSION: | | 1. Right internal jugular line with tip in the expected location of | | the superior vena cava. | | 2. Endotracheal tube with tip approximately 2 cm above the level of | | the aaron. | + + + + + + + | Performing | Address | City/State/Zipcode | Phone Number | | Organization | | | | + + + + + | [facility] | [facility], [address] | [place] [address] | [phone] | | | Shyann | | | + + + + + Lactic Acid, Arterial, Surgery (12/24/2013 6:33 PM PDT) + +-------+ + + + | Component | Value | Ref Range | Performed | Pathologist | | | | | At | Signature | + +-------+ + + + | Lactate, | 1.2 | 0.5 - 1.6 | [facility] | | | Arterial | | mmol/L | [facility] | | | | | | HE[facility] | | | | | | MEDICAL | | | | | | CENTER | | | | | | LABORATORY | | + +-------+ + + + + + | Specimen | + + | | + + + + + + + | Performing | Address | City/State/Zipcode | Phone Number | | Organization | | | | + + + + + | [facility] | [address] | [place] [address] | | | [facility] | | | | | LABORATORY | | | | + + + + + Blood Gas , Arterial, Surgery (12/24/2013 6:33 PM PDT) + + + + + + | Component | Value | Ref Range | Performed | Pathologist | | | | | At | Signature | + + + + + + | pH, | 7.41 | 7.37 - 7.47 | [facility] | | | Arterial | Comment: | | [facility] | | | | Results delivered to: | | HEART | | | | Dr. Kelly, [place] [address] | | MEDICAL | | | | | | CENTER | | | | | | LABORATORY | | + + + + + + | pCO2, | 36 | 32 - 43 mm Hg | [facility] | | | Arterial | | | [facility] | | | | | | HEART | | | | | | MEDICAL | | | | | | CENTER | | | | | | LABORATORY | | + + + + + + | pO2, | 174 | mm Hg | [facility] | | | Arterial | | | [facility] | | | | | | HEART | | | | | | MEDICAL | | | | | | CENTER | | | | | | LABORATORY | | + + + + + + | Base | 1.7 | 0.0 - 2.5 | [facility] | | | deficit | | mmol/L | [facility] | | | | | | HEART | | | | | | MEDICAL | | | | | | CENTER | | | | | | LABORATORY | | + + + + + + | Base | N/A | 0.0 - 2.5 | [facility] | | | Excess, | | mmol/L | [facility] | | | Arterial | | | HEART | | | | | | MEDICAL | | | | | | CENTER | | | | | | LABORATORY | | + + + + + + | HCO3, | 22.3 (L) | 23.0 - 28.0 | [facility] | | | Arterial | | mmol/L | [facility] | | | | | | HEART | | | | | | MEDICAL | | | | | | CENTER | | | | | | LABORATORY | | + + + + + + | Oxygen | 12.4 (L) | 15 - 23 Vol % | [facility] | | | Content, | | | [facility] | | | Arterial | | | HEART | | | | | | MEDICAL | | | | | | CENTER | | | | | | LABORATORY | | + + + + + + | Hgb, Blood | 8.7 (L) | 11.3 - 15.5 | [facility] | | | Gas | | g/dL | [facility] | | | | | | HEART | | | | | | MEDICAL | | | | | | CENTER | | | | | | LABORATORY | | + + + + + + | HGB O2 SAT | 97.7 | 92.0 - 99.9 % | [facility] | | | | | | [facility] | | | | | | HE[facility] | | | | | | MEDICAL | | | | | | CENTER | | | | | | LABORATORY | | + + + + + + | Carboxyhemo | 1.0 | 1.0 - 3.0 % | [facility] | | | globin | | | [facility] | | | | | | HEART | | | | | | MEDICAL | | | | | | CENTER | | | | | | LABORATORY | | + + + + + + | Methemoglob | 0.7 | 0.4 - 1.5 % | [facility] | | | in, Venous | | | [facility] | | | | | | HEART | | | | | | MEDICAL | | | | | | CENTER | | | | | | LABORATORY | | + + + + + + | Calcium, | 5.05 | 4.75 - 5.30 | [facility] | | | Ionized | | mg/dL | [facility] | | | | | | HEART | | | | | | MEDICAL | | | | | | CENTER | | | | | | LABORATORY | | + + + + + + | Calcium, pH | 5.06 | 4.75 - 5.30 | [facility] | | | Normalized | | mg/dL | [facility] | | | | | | HEART | | | | | | MEDICAL | | | | | | CENTER | | | | | | LABORATORY | | + + + + + + | Glucose, | 111 (H) | 65 - 99 mg/dL | [facility] | | | POC | | | [facility] | | | | | | HEART | | | | | | MEDICAL | | | | | | CENTER | | | | | | LABORATORY | | + + + + + + | K | 4.5 | 3.5 - 5.0 | [facility] | | | | | mmol/L | [facility] | | | | | | HEART | | | | | | MEDICAL | | | | | | CENTER | | | | | | LABORATORY | | + + + + + + | Na | 138 | 135 - 145 | [facility] | | | | | mmol/L | [facility] | | | | | | HEART | | | | | | MEDICAL | | | | | | CENTER | | | | | | LABORATORY | | + + + + + + + + | Specimen | + + | | + + + + + + + | Performing | Address | City/State/Zipcode | Phone Number | | Organization | | | | + + + + + | [facility] | [address] | [place] [address] | | | [facility] | | | | | LABORATORY | | | | + + + + + Lactic Acid, Arterial, Surgery (12/24/2013 5:48 PM PDT) + +-------+ + + + | Component | Value | Ref Range | Performed | Pathologist | | | | | At | Signature | + +-------+ + + + | Lactate, | 1.0 | 0.5 - 1.6 | [facility] | | | Arterial | | mmol/L | [facility] | | | | | | HEART | | | | | | MEDICAL | | | | | | CENTER | | | | | | LABORATORY | | + +-------+ + + + + + | Specimen | + + | | + + + + + + + | Performing | Address | City/State/Zipcode | Phone Number | | Organization | | | | + + + + + | [facility] | [address] | [place] [address] | | | [facility] | | | | | LABORATORY | | | | + + + + + Blood Gas , Arterial, Surgery (12/24/2013 5:48 PM PDT) + + + + + + | Component | Value | Ref Range | Performed | Pathologist | | | | | At | Signature | + + + + + + | pH, | 7.39 | 7.37 - 7.47 | [facility] | | | Arterial | Comment: | | [facility] | | | | Results delivered to: | | HEART | | | | Dr. Kelly, [place] [address] | | MEDICAL | | | | | | CENTER | | | | | | LABORATORY | | + + + + + + | pCO2, | 38 | 32 - 43 mm Hg | [facility] | | | Arterial | | | [facility] | | | | | | HEART | | | | | | MEDICAL | | | | | | CENTER | | | | | | LABORATORY | | + + + + + + | pO2, | 189 | mm Hg | [facility] | | | Arterial | | | [facility] | | | | | | HEART | | | | | | MEDICAL | | | | | | CENTER | | | | | | LABORATORY | | + + + + + + | Base | 1.5 | 0.0 - 2.5 | [facility] | | | deficit | | mmol/L | [facility] | | | | | | HEART | | | | | | MEDICAL | | | | | | CENTER | | | | | | LABORATORY | | + + + + + + | Base | N/A | 0.0 - 2.5 | [facility] | | | Excess, | | mmol/L | [facility] | | | Arterial | | | HEART | | | | | | MEDICAL | | | | | | CENTER | | | | | | LABORATORY | | + + + + + + | HCO3, | 22.7 (L) | 23.0 - 28.0 | [facility] | | | Arterial | | mmol/L | [facility] | | | | | | HEART | | | | | | [facility] | | | | | | CENTER | | | | | | LABORATORY | | + + + + + + | Oxygen | 10.3 (L) | 15 - 23 Vol % | [facility] | | | Content, | | | [facility] | | | [facility] | | | HE[facility] | | | | | | MED[facility] | | | | | | CENTER | | | | | | LABORATORY | | + + + + + + | Hgb, Blood | 7.2 (L) | 11.3 - 15.5 | [facility] | | | Gas | | g/dL | [facility] | | | | | | [facility] | | | | | | [facility] | | | | | | [facility]ENTER | | | | | | LABORATORY | | + + + + + + | HGB O2 SAT | 97.6 | 92.0 - 99.9 % | [facility] | | | | | | [facility] | | | | | | [facility] | | | | | | [facility] | | | | | | LABORATORY | | + + + + + + | Carboxyhemo | 1.2 | 1.0 - 3.0 % | [facility] | | | globin | | | [facility] | | | | | [facility] | | | | | | [facility] | | | | | | [facility]ENTER | | | | | | LABORATORY | | + + + + + + | Methemoglob | 0.8 | 0.4 - 1.5 % | [facility] | | | in, Venous | | | [facility] | | | | | [facility] | | | | | | [facility] | | | | | | [facility]ENTER | | | | | | LABORATORY | | + + + + + + | Calcium, | 5.42 (H) | 4.75 - 5.30 | [facility] | | | Ionized | | mg/dL | [facility] | | | [facility] | | | | | | [facility] | | | | | | [facility]ENTER | | | | | | LABORATORY | | + + + + + + | Calcium, pH | 5.39 (H) | 4.75 - 5.30 | [facility] | | | Normalized | | mg/dL | [facility] | | | | [facility] | | | | | | [facility] | | | | | | [facility]ENTER | | | | | | LABORATORY | | + + + + + + | Glucose, | 113 (H) | 65 - 99 mg/dL | [facility] | | | POC | | | [facility] | [facility] | | [facility] | | | | | | [facility] | | | | | | [facility] | | | | | | LABORATORY | | + + + + + + | K | 5.0 | 3.5 - 5.0 | [facility] | | | | | mmol/L | [facility] | [facility] | | [facility] | | | | | | [facility] | | | | | | [facility]ENTER | | | | | | LABORATORY | | + + + + + + | Na | 135 | 135 - 145 | [facility] | | | | | mmol/L | [facility] | | [facility] | | | | | | [facility] | | | | | | [facility]ENTER | | | | | | LABORATORY | | + + + + + + + + | Specimen | + + | | + + + + + + + | Performing | Address | City/State/Zipcode | Phone Number | | Organization | | | | + + + + + | [facility] | [address] | [place] [address] | | | [facility] | | | | | LABORATORY | | | | + + + + + Lactic Acid, Arterial, Surgery (12/24/2013 5:29 PM PDT) + +-------+ + + + | Component | Value | Ref Range | Performed | Pathologist | | | | | At | Signature | + +-------+ + + + | Lactate, | 1.1 | 0.5 - 1.6 | [facility] | | | Arterial | | mmol/L | [facility] | | [facility] | | [facility] | | | | | | [facility] | | | | | | [facility]ENTER | | | | | | LABORATORY | | + +-------+ + + + + + | Specimen | + + | | + + + + + + + | Performing | Address | City/State/Zipcode | Phone Number | | Organization | | | | + + + + + | [facility] | [address] | [place] [address] | | | [facility] | | | | | LABORATORY | | | | + + + + + Calcium, Ionized, Surgery (12/24/2013 5:29 PM PDT) + + + + + + | Component | Value | Ref Range | Performed | Pathologist | | | | | At | Signature | + + + + + + | Calcium, | 5.97 (H) | 4.75 - 5.30 | [facility] | | | Ionized | | mg/dL | [facility] | | | | | [facility] | | | | | | [facility] | | | | | | CENTER | | | | | | LABORATORY | | + + + + + + | Calcium, pH | 5.82 (H) | 4.75 - 5.30 | [facility] | | | Normalized | | mg/dL | [facility] | | | | | [facility] | | | | | | [facility] | | | | | | CENTER | | | | | | LABORATORY | | + + + + + + + + | Specimen | + + | | + + + + + + + | Performing | Address | City/State/Zipcode | Phone Number | | Organization | | | | + + + + + | [facility] | [phone] [address] | [place] [address] | | | [facility] | | | | | LABORATORY | | | | + + + + + Blood Gas Profile AGB, VBG, Potassium and Glucose, Surgery (12/24/2013 5:29 PM PDT) + + + + + + | Component | Value | Ref Range | Performed | Pathologist | | | | | At | Signature | + + + + + + | pH, | 7.35 (L) | 7.37 - 7.47 | [facility] | | | Arterial | Comment: | | [facility] | | | | Results delivered to: | | HEART | | | | [facility] [address] | | MEDICAL | | | | | | CENTER | | | | | | LABORATORY | | + + + + + + | pCO2, | 44 (H) | 32 - 43 mm Hg | [facility] | | | Arterial | | | [facility] | | | | | | HEART | | | | | | MEDICAL | | | | | | CENTER | | | | | | LABORATORY | | + + + + + + | pO2, | 242 | mm Hg | [facility] | | | Arterial | | | [facility] | | | | | | HEART | | | | | | MEDICAL | | | | | | CENTER | | | | | | LABORATORY | | + + + + + + | Base | 0.8 | 0.0 - 2.5 | [facility] | | | deficit | | mmol/L | [facility] | | | | | | HEART | | | | | | MEDICAL | | | | | | CENTER | | | | | | LABORATORY | | + + + + + + | Base | N/A | 0.0 - 2.5 | [facility] | | | Excess, | | mmol/L | [facility] | | | Arterial | | | HEART | | | | | | MEDICAL | | | | | | CENTER | | | | | | LABORATORY | | + + + + + + | HCO3, | 24.0 | 23.0 - 28.0 | [facility] | | | Arterial | | mmol/L | [facility] | | | | | | HEART | | | | | | MEDICAL | | | | | | CENTER | | | | | | LABORATORY | | + + + + + + | Oxygen | 10.9 (L) | 15 - 23 Vol % | [facility] | | | Content, | | | [facility] | | | Arterial | | | HEART | | | | | | MEDICAL | | | | | | CENTER | | | | | | LABORATORY | | + + + + + + | Hgb, Blood | 7.5 (L) | 11.3 - 15.5 | [facility] | | | Gas | | g/dL | [facility] | | | | | | HEART | | | | | | MEDICAL | | | | | | CENTER | | | | | | LABORATORY | | + + + + + + | HGB O2 SAT | 98.2 | 92.0 - 99.9 % | [facility] | | | | | | [facility] | | | | | | HEART | | | | | | MEDICAL | | | | | | CENTER | | | | | | LABORATORY | | + + + + + + | Carboxyhemo | 1.2 | 1.0 - 3.0 % | [facility] | | | globin | | | [facility] | | | | | | HEART | | | | | | MEDICAL | | | | | | CENTER | | | | | | LABORATORY | | + + + + + + | Methemoglob | 0.5 | 0.4 - 1.5 % | [facility] | | | in, Venous | | | [facility] | | | | | | HEART | | | | | | MEDICAL | | | | | | CENTER | | | | | | LABORATORY | | + + + + + + | pH, Venous | 7.34 | 7.31 - 7.41 | [facility] | | | | | | [facility] | | | | | | HEART | | | | | | MEDICAL | | | | | | CENTER | | | | | | LABORATORY | | + + + + + + | pCO2, | 48 | 41 - 51 mm Hg | [facility] | | | Venous | | | [facility] | | | | | | HEART | | | | | | MEDICAL | | | | | | CENTER | | | | | | LABORATORY | | + + + + + + | pO2, Venous | 50 (H) | 37 - 43 mm Hg | [facility] | | | | | | [facility] | | | | | | HEART | | | | | | MEDICAL | | | | | | CENTER | | | | | | LABORATORY | | + + + + + + | O2HB SOHAIL | 80.7 | % | [facility] | | | | | | [facility] | | | | | | HEART | | | | | | MEDICAL | | | | | | CENTER | | | | | | LABORATORY | | + + + + + + | K | 5.6 (H) | 3.5 - 5.0 | [facility] | | | | | mmol/L | [facility] | | | | | | HEART | | | | | | MEDICAL | | | | | | CENTER | | | | | | LABORATORY | | + + + + + + | Glucose, | 118 (H) | 65 - 99 mg/dL | [facility] | | | POC | | | [facility] | | | | | | HEART | | | | | | MEDICAL | | | | | | CENTER | | | | | | LABORATORY | | + + + + + + + + | Specimen | + + | | + + + + + + + | Performing | Address | City/State/Zipcode | Phone Number | | Organization | | | | + + + + + | [facility] | [address] | [place] [address] | | | [facility] | | | | | LABORATORY | | | | + + + + + Lactic Acid, Arterial, Surgery (12/24/2013 5:02 PM PDT) + +-------+ + + + | Component | Value | Ref Range | Performed | Pathologist | | | | | At | Signature | + +-------+ + + + | Lactate, | 0.7 | 0.5 - 1.6 | [facility] | | | Arterial | | mmol/L | [facility] | | | | | | HEART | | | | | | MEDICAL | | | | | | CENTER | | | | | | LABORATORY | | + +-------+ + + + + + | Specimen | + + | | + + + + + + + | Performing | Address | City/State/Zipcode | Phone Number | | Organization | | | | + + + + + | [facility] | [address] | [place] [address] | | | [facility] | | | | | LABORATORY | | | | + + + + + Calcium, Ionized, Surgery (12/24/2013 5:02 PM PDT) + + + + + + | Component | Value | Ref Range | Performed | Pathologist | | | | | At | Signature | + + + + + + | Calcium, | 4.46 (L) | 4.75 - 5.30 | [facility] | | | Ionized | | mg/dL | [facility] | | | | | | HEART | | | | | | MEDICAL | | | | | | CENTER | | | | | | LABORATORY | | + + + + + + | Calcium, pH | 4.37 (L) | 4.75 - 5.30 | [facility] | | | Normalized | | mg/dL | [facility] | | | | | | HEART | | | | | | MEDICAL | | | | | | CENTER | | | | | | LABORATORY | | + + + + + + + + | Specimen | + + | | + + + + + + + | Performing | Address | City/State/Zipcode | Phone Number | | Organization | | | | + + + + + | [facility] | [address] | [place] [address] | | | [facility] | | | | | LABORATORY | | | | + + + + + Blood Gas Profile AGB, VBG, Potassium and Glucose, Surgery (12/24/2013 5:02 PM PDT) + + + + + + | Component | Value | Ref Range | Performed | Pathologist | | | | | At | Signature | + + + + + + | pH, | 7.36 (L) | 7.37 - 7.47 | [facility] | | | Arterial | Comment: | | [facility] | | | | Results delivered to: | | HEART | | | | [facility] [address] | | MEDICAL | | | | | | CENTER | | | | | | LABORATORY | | + + + + + + | pCO2, | 45 (H) | 32 - 43 mm Hg | [facility] | | | Arterial | | | [facility] | | | | | | HEART | | | | | | MEDICAL | | | | | | CENTER | | | | | | LABORATORY | | + + + + + + | pO2, | 174 | mm Hg | [facility] | | | Arterial | | | [facility] | | | | | | HEART | | | | | | MEDICAL | | | | | | CENTER | | | | | | LABORATORY | | + + + + + + | Base | N/A | 0.0 - 2.5 | [facility] | | | deficit | | mmol/L | [facility] | | | | | | HEART | | | | | | MEDICAL | | | | | | CENTER | | | | | | LABORATORY | | + + + + + + | Base | 0.2 | 0.0 - 2.5 | [facility] | | | Excess, | | mmol/L | [facility] | | | Arterial | | | HEART | | | | | | MEDICAL | | | | | | CENTER | | | | | | LABORATORY | | + + + + + + | HCO3, | 25.0 | 23.0 - 28.0 | [facility] | | | Arterial | | mmol/L | [facility] | | | | | | HEART | | | | | | MEDICAL | | | | | | CENTER | | | | | | LABORATORY | | + + + + + + | Oxygen | 9.4 (L) | 15 - 23 Vol % | [facility] | | | Content, | | | [facility] | | | Arterial | | | HEART | | | | | | MEDICAL | | | | | | CENTER | | | | | | LABORATORY | | + + + + + + | Hgb, Blood | 6.5 (L) | 11.3 - 15.5 | [facility] | | | Gas | | g/dL | [facility] | | | | | | HEART | | | | | | MEDICAL | | | | | | CENTER | | | | | | LABORATORY | | + + + + + + | HGB O2 SAT | 97.8 | 92.0 - 99.9 % | [facility] | | | | | | [facility] | | | | | | HEART | | | | | | MEDICAL | | | | | | CENTER | | | | | | LABORATORY | | + + + + + + | Carboxyhemo | 1.2 | 1.0 - 3.0 % | [facility] | | | globin | | | [facility] | | | | | | HEART | | | | | | MEDICAL | | | | | | CENTER | | | | | | LABORATORY | | + + + + + + | Methemoglob | 0.4 | 0.4 - 1.5 % | [facility] | | | in, Venous | | | [facility] | | | | | | HEART | | | | | | MEDICAL | | | | | | CENTER | | | | | | LABORATORY | | + + + + + + | pH, Venous | 7.35 | 7.31 - 7.41 | [facility] | | | | | | [facility] | | | | | | HEART | | | | | | MEDICAL | | | | | | CENTER | | | | | | LABORATORY | | + + + + + + | pCO2, | 48 | 41 - 51 mm Hg | [facility] | | | Venous | | | [facility] | | | | | | HEART | | | | | | MEDICAL | | | | | | CENTER | | | | | | LABORATORY | | + + + + + + | pO2, Venous | 43 | 37 - 43 mm Hg | [facility] | | | | | | [facility] | | | | | | HEART | | | | | | MEDICAL | | | | | | CENTER | | | | | | LABORATORY | | + + + + + + | O2HB SOHAIL | 73.9 | % | [facility] | | | | | | [facility] | | | | | | HEART | | | | | | MEDICAL | | | | | | CENTER | | | | | | LABORATORY | | + + + + + + | K | 6.3 (H) | 3.5 - 5.0 | [facility] | | | | | mmol/L | [facility] | | | | | | HEART | | | | | | MEDICAL | | | | | | CENTER | | | | | | LABORATORY | | + + + + + + | Glucose, | 118 (H) | 65 - 99 mg/dL | [facility] | | | POC | | | [facility] | | | | | | HEART | | | | | | MEDICAL | | | | | | CENTER | | | | | | LABORATORY | | + + + + + + + + | Specimen | + + | | + + + + + + + | Performing | Address | City/State/Zipcode | Phone Number | | Organization | | | | + + + + + | [facility] | [address] | [place] [address] | | | [facility] | | | | | LABORATORY | | | | + + + + + Lactic Acid, Arterial, Surgery (12/24/2013 4:25 PM PDT) + +-------+ + + + | Component | Value | Ref Range | Performed | Pathologist | | | | | At | Signature | + +-------+ + + + | Lactate, | 0.7 | 0.5 - 1.6 | [facility] | | | Arterial | | mmol/L | [facility] | | | | | | HEART | | | | | | MEDICAL | | | | | | CENTER | | | | | | LABORATORY | | + +-------+ + + + + + | Specimen | + + | | + + + + + + + | Performing | Address | City/State/Zipcode | Phone Number | | Organization | | | | + + + + + | [facility] | [address] | [place] [address] | | | [facility] | | | | | LABORATORY | | | | + + + + + Calcium, Ionized, Surgery (12/24/2013 4:25 PM PDT) + + + + + + | Component | Value | Ref Range | Performed | Pathologist | | | | | At | Signature | + + + + + + | Calcium, | 4.53 (L) | 4.75 - 5.30 | [facility] | | | Ionized | | mg/dL | [facility] | | | | | | HEART | | | | | | MEDICAL | | | | | | CENTER | | | | | | LABORATORY | | + + + + + + | Calcium, pH | 4.38 (L) | 4.75 - 5.30 | [facility] | | | Normalized | | mg/dL | [facility] | | | | | | HEART | | | | | | MEDICAL | | | | | | CENTER | | | | | | LABORATORY | | + + + + + + + + | Specimen | + + | | + + + + + + + | Performing | Address | City/State/Zipcode | Phone Number | | Organization | | | | + + + + + | [facility] | [address] | [place] [address] | | | [facility] | | | | | LABORATORY | | | | + + + + + Blood Gas Profile AGB, VBG, Potassium and Glucose, Surgery (12/24/2013 4:25 PM PDT) + + + + + + | Component | Value | Ref Range | Performed | Pathologist | | | | | At | Signature | + + + + + + | pH, | 7.34 (L) | 7.37 - 7.47 | [facility] | | | Arterial | Comment: | | [facility] | | | | Results delivered to: | | HEART | | | | [facility] [address] | | MEDICAL | | | | | | CENTER | | | | | | LABORATORY | | + + + + + + | pCO2, | 49 (H) | 32 - 43 mm Hg | [facility] | | | Arterial | | | [facility] | | | | | | HEART | | | | | | MEDICAL | | | | | | CENTER | | | | | | LABORATORY | | + + + + + + | pO2, | 220 | mm Hg | [facility] | | | Arterial | | | [facility] | | | | | | HEART | | | | | | MEDICAL | | | | | | CENTER | | | | | | LABORATORY | | + + + + + + | Base | N/A | 0.0 - 2.5 | [facility] | | | deficit | | mmol/L | [facility] | | | | | | HEART | | | | | | MEDICAL | | | | | | CENTER | | | | | | LABORATORY | | + + + + + + | Base | 0.2 | 0.0 - 2.5 | [facility] | | | Excess, | | mmol/L | [facility] | | | Arterial | | | HEART | | | | | | MEDICAL | | | | | | CENTER | | | | | | LABORATORY | | + + + + + + | HCO3, | 25.4 | 23.0 - 28.0 | [facility] | | | Arterial | | mmol/L | [facility] | | | | | | HEART | | | | | | MEDICAL | | | | | | CENTER | | | | | | LABORATORY | | + + + + + + | Oxygen | 9.9 (L) | 15 - 23 Vol % | [facility] | | | Content, | | | [facility] | | | Arterial | | | HEART | | | | | | MEDICAL | | | | | | CENTER | | | | | | LABORATORY | | + + + + + + | Hgb, Blood | 6.8 (L) | 11.3 - 15.5 | [facility] | | | Gas | | g/dL | [facility] | | | | | | HEART | | | | | | MEDICAL | | | | | | CENTER | | | | | | LABORATORY | | + + + + + + | HGB O2 SAT | 97.8 | 92.0 - 99.9 % | [facility] | | | | | | [facility] | | | | | | HEART | | | | | | MEDICAL | | | | | | CENTER | | | | | | LABORATORY | | + + + + + + | Carboxyhemo | 1.0 | 1.0 - 3.0 % | [facility] | | | globin | | | [facility] | | | | | | HEART | | | | | | MEDICAL | | | | | | CENTER | | | | | | LABORATORY | | + + + + + + | Methemoglob | 0.8 | 0.4 - 1.5 % | [facility] | | | in, Venous | | | [facility] | | | | | | HEART | | | | | | MEDICAL | | | | | | CENTER | | | | | | LABORATORY | | + + + + + + | pH, Venous | 7.34 | 7.31 - 7.41 | [facility] | | | | | | [facility] | | | | | | HEART | | | | | | MEDICAL | | | | | | CENTER | | | | | | LABORATORY | | + + + + + + | pCO2, | 50 | 41 - 51 mm Hg | [facility] | | | Venous | | | [facility] | | | | | | HEART | | | | | | MEDICAL | | | | | | CENTER | | | | | | LABORATORY | | + + + + + + | pO2, Venous | 52 (H) | 37 - 43 mm Hg | [facility] | | | | | | [facility] | | | | | | HEART | | | | | | MEDICAL | | | | | | CENTER | | | | | | LABORATORY | | + + + + + + | O2HB SOHAIL | 82.3 | % | [facility] | | | | | | [facility] | | | | | | HEART | | | | | | MEDICAL | | | | | | CENTER | | | | | | LABORATORY | | + + + + + + | K | 5.1 (H) | 3.5 - 5.0 | [facility] | | | | | mmol/L | [facility] | | | | | | HEART | | | | | | MEDICAL | | | | | | CENTER | | | | | | LABORATORY | | + + + + + + | Glucose, | 111 (H) | 65 - 99 mg/dL | [facility] | | | POC | | | [facility] | | | | | | HEART | | | | | | MEDICAL | | | | | | CENTER | | | | | | LABORATORY | | + + + + + + + + | Specimen | + + | | + + + + + + + | Performing | Address | City/State/Zipcode | Phone Number | | Organization | | | | + + + + + | [facility] | [address] | [place] [address] | | | [facility] | | | | | LABORATORY | | | | + + + + + Lactic Acid, Arterial, Surgery (12/24/2013 3:58 PM PDT) + +-------+ + + + | Component | Value | Ref Range | Performed | Pathologist | | | | | At | Signature | + +-------+ + + + | Lactate, | 0.7 | 0.5 - 1.6 | [facility] | | | Arterial | | mmol/L | [facility] | | | | | | HEART | | | | | | MEDICAL | | | | | | CENTER | | | | | | LABORATORY | | + +-------+ + + + + + | Specimen | + + | | + + + + + + + | Performing | Address | City/State/Zipcode | Phone Number | | Organization | | | | + + + + + | [facility] | [address] | [place] [address] | | | [facility] | | | | | LABORATORY | | | | + + + + + Calcium, Ionized, Surgery (12/24/2013 3:58 PM PDT) + +-------+ + + + | Component | Value | Ref Range | Performed | Pathologist | | | | | At | Signature | + +-------+ + + + | Calcium, | 4.75 | 4.75 - 5.30 | [facility] | | | Ionized | | mg/dL | [facility] | | | | | | HEART | | | | | | MEDICAL | | | | | | CENTER | | | | | | LABORATORY | | + +-------+ + + + | Calcium, pH | 4.77 | 4.75 - 5.30 | [facility] | | | Normalized | | mg/dL | [facility] | | | | | | HEART | | | | | | MEDICAL | | | | | | CENTER | | | | | | LABORATORY | | + +-------+ + + + + + | Specimen | + + | | + + + + + + + | Performing | Address | City/State/Zipcode | Phone Number | | Organization | | | | + + + + + | [facility] | [address] | [place] [address] | | | [facility] | | | | | LABORATORY | | | | + + + + + Blood Gas Profile AGB, VBG, Potassium and Glucose, Surgery (12/24/2013 3:58 PM PDT) + + + + + + | Component | Value | Ref Range | Performed | Pathologist | | | | | At | Signature | + + + + + + | pH, | 7.41 | 7.37 - 7.47 | [facility] | | | Arterial | Comment: | | [facility] | | | | Results delivered to: | | HEART | | | | [address] [facility] [address] | | MEDICAL | | | | | | CENTER | | | | | | LABORATORY | | + + + + + + | pCO2, | 38 | 32 - 43 mm Hg | [facility] | | | Arterial | | | [facility] | | | | | | HEART | | | | | | MEDICAL | | | | | | CENTER | | | | | | LABORATORY | | + + + + + + | pO2, | 294 | mm Hg | [facility] | | | Arterial | | | [facility] | | | | | | HEART | | | | | | MEDICAL | | | | | | CENTER | | | | | | LABORATORY | | + + + + + + | Base | 0.4 | 0.0 - 2.5 | [facility] | | | deficit | | mmol/L | [facility] | | | | | | HEART | | | | | | MEDICAL | | | | | | CENTER | | | | | | LABORATORY | | + + + + + + | Base | N/A | 0.0 - 2.5 | [facility] | | | Excess, | | mmol/L | [facility] | | | Arterial | | | HEART | | | | | | MEDICAL | | | | | | CENTER | | | | | | LABORATORY | | + + + + + + | HCO3, | 23.6 | 23.0 - 28.0 | [facility] | | | Arterial | | mmol/L | [facility] | | | | | | HEART | | | | | | MEDICAL | | | | | | CENTER | | | | | | LABORATORY | | + + + + + + | Oxygen | 10.8 (L) | 15 - 23 Vol % | [facility] | | | Content, | | | [facility] | | | Arterial | | | HEART | | | | | | MEDICAL | | | | | | CENTER | | | | | | LABORATORY | | + + + + + + | Hgb, Blood | 7.3 (L) | 11.3 - 15.5 | [facility] | | | Gas | | g/dL | [facility] | | | | | | HEART | | | | | | MEDICAL | | | | | | CENTER | | | | | | LABORATORY | | + + + + + + | HGB O2 SAT | 98.1 | 92.0 - 99.9 % | [facility] | | | | | | [facility] | | | | | | HE[facility] | | | | | | MEDICAL | | | | | | CENTER | | | | | | LABORATORY | | + + + + + + | Carboxyhemo | 1.0 | 1.0 - 3.0 % | [facility] | | | globin | | | [facility] | | | | | | HEART | | | | | | MEDICAL | | | | | | CENTER | | | | | | LABORATORY | | + + + + + + | Methemoglob | 0.7 | 0.4 - 1.5 % | [facility] | | | in, Venous | | | [facility] | | | | | | HEART | | | | | | MEDICAL | | | | | | CENTER | | | | | | LABORATORY | | + + + + + + | pH, Venous | 7.39 | 7.31 - 7.41 | [facility] | | | | | | [facility] | | | | | | HEART | | | | | | MEDICAL | | | | | | CENTER | | | | | | LABORATORY | | + + + + + + | pCO2, | 42 | 41 - 51 mm Hg | [facility] | | | Venous | | | [facility] | | | | | | HEART | | | | | | MEDICAL | | | | | | CENTER | | | | | | LABORATORY | | + + + + + + | pO2, Venous | 44 (H) | 37 - 43 mm Hg | [facility] | | | | | | [facility] | | | | | | HEART | | | | | | MEDICAL | | | | | | CENTER | | | | | | LABORATORY | | + + + + + + | O2HB SOHAIL | 77.2 | % | [facility] | | | | | | [facility] | | | | | | HEART | | | | | | MEDICAL | | | | | | CENTER | | | | | | LABORATORY | | + + + + + + | K | 4.7 | 3.5 - 5.0 | [facility] | | | | | mmol/L | [facility] | | | | | | HEART | | | | | | MEDICAL | | | | | | CENTER | | | | | | LABORATORY | | + + + + + + | Glucose, | 115 (H) | 65 - 99 mg/dL | [facility] | | | POC | | | [facility] | | | | | | HEART | | | | | | MEDICAL | | | | | | CENTER | | | | | | LABORATORY | | + + + + + + + + | Specimen | + + | | + + + + + + + | Performing | Address | City/State/Zipcode | Phone Number | | Organization | | | | + + + + + | [facility] | [address] | [place] [address] | | | [facility] | | | | | LABORATORY | | | | + + + + + Lactic Acid, Arterial, Surgery (12/24/2013 3:19 PM PDT) + +-------+ + + + | Component | Value | Ref Range | Performed | Pathologist | | | | | At | Signature | + +-------+ + + + | Lactate, | 0.6 | 0.5 - 1.6 | [facility] | | | Arterial | | mmol/L | [facility] | | | | | | HE[facility] | | | | | | MEDICAL | | | | | | CENTER | | | | | | LABORATORY | | + +-------+ + + + + + | Specimen | + + | | + + + + + + + | Performing | Address | City/State/Zipcode | Phone Number | | Organization | | | | + + + + + | [facility] | [address] | [place] [address] | | | [facility] | | | | | LABORATORY | | | | + + + + + Hemoglobin, Surgery (12/24/2013 3:19 PM PDT) + + + + + + | Component | Value | Ref Range | Performed | Pathologist | | | | | At | Signature | + + + + + + | Hemoglobin | 9.9 (L) | 11.3 - 15.5 | [facility] | | | | Comment: | g/dL | [facility] | | | | Results delivered to: | | HEART | | | | [facility] | | MEDICAL | | | | | | CENTER | | | | | | LABORATORY | | + + + + + + + + | Specimen | + + | | + + + + + + + | Performing | Address | City/State/Zipcode | Phone Number | | Organization | | | | + + + + + | [facility] | [address] | [place] [address] | | | [facility] | | | | | LABORATORY | | | | + + + + + Lactic Acid, Arterial, Surgery (12/24/2013 2:11 PM PDT) + +-------+ + + + | Component | Value | Ref Range | Performed | Pathologist | | | | | At | Signature | + +-------+ + + + | Lactate, | 0.5 | 0.5 - 1.6 | [facility] | | | Arterial | | mmol/L | [facility] | | | | | | HE[facility] | | | | | | MEDICAL | | | | | | CENTER | | | | | | LABORATORY | | + +-------+ + + + + + | Specimen | + + | | + + + + + + + | Performing | Address | City/State/Zipcode | Phone Number | | Organization | | | | + + + + + | [facility] | [address] | [place] [address] | | | [facility] | | | | | LABORATORY | | | | + + + + + Blood Gas , Arterial, Surgery (12/24/2013 2:11 PM PDT) + + + + + + | Component | Value | Ref Range | Performed | Pathologist | | | | | At | Signature | + + + + + + | pH, | 7.45 | 7.37 - 7.47 | [facility] | | | Arterial | Comment: | | [facility] | | | | Results delivered to: | | [facility] | | | | [facility] | | MEDICAL | | | | | | CENTER | | | | | | LABORATORY | | + + + + + + | pCO2, | 34 | 32 - 43 mm Hg | [facility] | | | Arterial | | | [facility] | | | | | | [facility] | | | | | | [facility] | | | | | | [facility]ENTER | | | | | | LABORATORY | | + + + + + + | pO2, | 205 | mm Hg | [facility] | | | Arterial | | | [facility] | | | | | | [facility] | | | | | | [facility] | | | | | | CENTER | | | | | | LABORATORY | | + + + + + + | Base | 0.8 | 0.0 - 2.5 | [facility] | | | deficit | | mmol/L | [facility] | | | | | | [facility] | | | | | | MEDICAL | | | | | | CENTER | | | | | | LABORATORY | | + + + + + + | Base | N/A | 0.0 - 2.5 | [facility] | | | Excess, | | mmol/L | [facility] | | | Arterial | | | [facility] | | | | | | [facility] | | | | | | CENTER | | | | | | LABORATORY | | + + + + + + | HCO3, | 22.7 (L) | 23.0 - 28.0 | [facility] | | | Arterial | | mmol/L | [facility] | | | | | | [facility] | | | | | | [facility] | | | | | | CENTER | | | | | | LABORATORY | | + + + + + + | Oxygen | 14.7 (L) | 15 - 23 Vol % | [facility] | | | Content, | | | [facility] | | | Arterial | | | HE[facility] | | | | | | MED[facility] | | | | | | CENTER | | | | | | LABORATORY | | + + + + + + | Hgb, Blood | 10.4 (L) | 11.3 - 15.5 | [facility] | | | Gas | | g/dL | [facility] | | | | | | [facility] | | | | | | [facility] | | | | | | [facility]ENTER | | | | | | LABORATORY | | + + + + + + | HGB O2 SAT | 97.7 | 92.0 - 99.9 % | [facility] | | | | [facility] | | [facility] | [facility] | | | | | | [facility] | | | | | | [facility] | | | | | | LABORATORY | | + + + + + + | Carboxyhemo | 1.3 | 1.0 - 3.0 % | [facility] | | | globin | | | [facility] | | | | | | [facility] | | | | | | [facility] | | | | | | CENTER | | | | | | LABORATORY | | + + + + + + | Methemoglob | 0.7 | 0.4 - 1.5 % | [facility] | | | in, Venous | | | [facility] | | | | | | [facility] | | | | | | [facility] | | | | | | CENTER | | | | | | LABORATORY | | + + + + + + | Calcium, | 4.56 (L) | 4.75 - 5.30 | [facility] | | | Ionized | | mg/dL | [facility] | | | | | | [facility] | | | | | | [facility] | | | | | | CENTER | | | | | | LABORATORY | | + + + + + + | Calcium, pH | 4.67 (L) | 4.75 - 5.30 | [facility] | | | Normalized | | mg/dL | [facility] | | | | | | [facility] | | | | | | [facility] | | | | | | CENTER | | | | | | LABORATORY | | + + + + + + | Glucose, | 108 (H) | 65 - 99 mg/dL | [facility] | | | POC | | | [facility] | | | | | | [facility] | | | | | | [facility] | | | | | | CENTER | | | | | | LABORATORY | | + + + + + + | K | 3.7 | 3.5 - 5.0 | [facility] | | | | | mmol/L | [facility] | | | | | | [facility] | | | | | | [facility] | | | | | | CENTER | | | | | | LABORATORY | | + + + + + + | Na | 137 | 135 - 145 | [facility] | | | | | mmol/L | [facility] | | | | | | [facility] | | | | | | [facility] | | | | | | [facility]ENTER | | | | | | LABORATORY | | + + + + + + + + | Specimen | + + | | + + + + + + + | Performing | Address | City/State/Zipcode | Phone Number | | Organization | | | | + + + + + | [facility] | [address] | [place] [address] | | | [facility] | | | | | LABORATORY | | | | + + + + + POC Glucose (12/24/2013 9:23 AM PDT) + +---------+ + + + | Component | Value | Ref Range | Performed | Pathologist | | | | | At | Signature | + +---------+ + + + | Glucose, | 107 (H) | 65 - 99 mg/dL | [facility] | | | POC | | | [facility] | | | | | | [facility] | | | | | | [facility] | | | | | | [facility]ENTER | | | | | | LABORATORY | | + +---------+ + + + + + | Specimen | + + | | + + + + + + + | Performing | Address | City/State/Zipcode | Phone Number | | Organization | | | | + + + + + | [facility] | [address] | [place] [address] | | | [facility] | | | | | LABORATORY | | | | + + + + + documented in this encounter Visit Diagnoses + + | Diagnosis | + + | Coronary atherosclerosis of [place] coronary artery | + + documented in this encounter Administered Medications + +--------+ +---------+------+ + | Medication Order | MAR | Action | Dose | Rate | Site | | | Action | Date | | | | + +--------+ +---------+------+ + | heparin 3,000 units in 300 mL | Given | 12/25/19 | 300 mLs | | Surgical | | NS irrigation PRN, Starting Tue | | 14 3:01 | | | Site | | 12/24/13 at 1501, Intra-op | | PM PDT | | | | + +--------+ +---------+------+ + +---+---+ | | | +---+---+ + +-------+ +--------+---+---+ | papaverine injection PRN, | Given | 12/25/19 | 180 mg | | | | Starting 12/24/13 at 1503, | | 14 4:00 | | | | | Intra-op | | PM PDT | | | | + +-------+ +--------+---+---+ +-------+ +--------+---+---+ | Given | 12/25/19 | 120 mg | | | | | 14 3:03 | | | | | | PM PDT | | | | +-------+ +--------+---+---+ +---+---+ | | | +---+---+ documented in this encounter
--- OUTSIDE RECORDS SUMMARY | ~2019-07-30 | XMS | Encounter Summary ---
Demographics + + + | Address | [address] | | | [place] [address] | + + + | Home Phone | | + + + | Preferred Language | Unknown | + + + | Marital Status | | + + + | Episcopalian Affiliation | 1001 | + + + | Race | Unknown | + + + | Ethnic Group | Unknown | + + + Author + + + | Author | [facility] | | | and [place] | + + + | Organization | [facility] | | | [...] Team Providers + +------+ + | Care Director Physical Name | Role | Phone | + +------+ + | Doug García MD | PCP | | + +------+ + Reason for Visit Diagnostic/Screening (Routine) +--------+ + + + + + | Status | Reason | Specialty | Diagnoses / | Referred By | Referred To | | | | | Procedures | Contact | Contact | +--------+ + + + + + | Closed | Specialty | Radiology | Diagnoses | Ricky, | [facility] | | | Services | | Dizziness | MD Doug | [address] | | | Required | | and | [address] | | | | | giddiness | [address] | [place], [place] | | | | | Coronary | Ave. | [address] | | | | | atherosclero | [place], [place] | Phone: | | | | | sis of | [phone] | [phone] | | | | | unspecified | Phone: | Fax: | | | | | type of | [phone] | [phone] | | | | | vessel, | Fax: | | | | | | [place] or | [phone] | | | | | | graft | | | | | | | Procedures | | | | | | | EP TILT | | | | | | | TABLE STUDY | | | | | | | Tilt-Table | | | | | | | Study | | | +--------+ + + + + + Encounter Details +--------+ + + + + | Date | Type | Department | Care Team | Description | +--------+ + + + + | 03/10/ | Hospital | [facility] | Doug García MD | Dizziness of unknown | | 2014 | Encounter | [facility] | [address] | cause; Coronary | | | | [address] | [place] [address] | artery disease | | | | [place], [place] | [phone] | | | | | [address] | | | | | | [phone] | [facility] | | +--------+ + + + + [...] + + + +---------+ + + | lisinopril | Take 5 mg by mouth | | 0 | | | | (PRINIVIL, ZESTRIL) | Daily. | | | | 5 | | 5 mg tablet | | | | | [...] +---------+ + + | metoprolol | Take 12.5 mg by | | 0 | 02/11/20 | | | tartrate (LOPRESSOR) | mouth 2 times daily. | | | 14 | 5 | | 25 mg tablet | HAS BEEN QUARTERING | | | | | | | THE 50 MG TABLETS | | | | | | | THAT THEY HAVE AND | | | | | | | WILL RESUME CUTTING | | | | | | | THE 25 MG'S IN HALF | | | | | | | WHEN THEY ARE DONE | | | | | | | WITH THE 50 MG TABS | | | | | + + + +---------+ + + | metoprolol | Take 0.5 tablets by | 60 | 6 | 02/11/20 | | | tartrate (LOPRESSOR) | mouth 2 times daily. | tablet | | 14 | 4 | | 25 mg tablet | | | | | | + + + +---------+ + + | | Take 1 capsule by | | 0 | 02/11/20 | | | triamterene-hydrochl | mouth Daily as | | | 14 | 5 | | orothiazide | needed. | | | | | | (DYAZIDE) 37.5-25 MG | | | | | | | per capsule | | | | | | + + + +---------+ + + | | Take 1 capsule by | 30 | 11 | 02/11/20 | | | triamterene-hydrochl | mouth Daily. | capsule | | 14 | 4 | | orothiazide | | | | | | | (DYAZIDE) 37.5-25 MG | | | | | | | per capsule | | | | | | + [...] | + +--------+ + + + | EP TILT TABLE STUDY | Routin | 03/10/2014 | Dizziness of | Results for this | | | e | 1:45 PM | unknown cause | procedure are in the | | | | PDT | Coronary artery | results section. | | | | | disease | | + +--------+ + + + documented in this encounter Results EP TILT TABLE STUDY (03/10/2014 1:45 PM PDT) + + | Specimen | + + | | + + + + + | Narrative | Performed At | + + + | No Radiologist | | | interpretation, please see Chart Review. | | + + + + + | Procedure Note | + + | 03/11/2014 7:02 AM PDT No Radiologist interpretation, please see Chart Review. | + + documented in this encounter Visit Diagnoses + + | Diagnosis | + + | Dizziness of unknown cause | + + | Coronary artery disease Coronary atherosclerosis of unspecified type of vessel, | | [place] or graft | + + documented in this encounter"
--- OUTSIDE RECORDS SUMMARY | ~2019-07-30 | XMS | Encounter Summary ---
Demographics + + + | Address | [address] | | | [place] [address] | + + + | Home Phone | | + + + | Preferred Language | Unknown | + + + | Marital Status | | + + + | Anabaptism Affiliation | 1001 | + + + | Race | Unknown | + + + | Ethnic Group | Unknown | + + + Author + + + | Author | [facility] | | | and [place] | + + + | Organization | [facility] | | | and [...] Team Providers + +------+ + | Care Subassembler Name | Role | Phone | + +------+ + | Doug García MD | PCP | | + +------+ + Encounter Details +--------+ + + + + | Date | Type | Department | Care Team | Description | +--------+ + + + + | 01/06/ | Hospital | [facility] | Tao Knight, | | | 2013 | Encounter | [facility] | [address] | | | | | [address] [place], [place] | | | | | [address] | [address] | | | | | [place], [place] | | | | | | [address] | | | | | | [phone] | | | +--------+ + + + [...] | 0 | 04/06/20 | | | [facility] | | | | 11 | 4 [...] + +---------+ + + | ibuprofen | One pill twice a day | 30 | 0 | 01/14/20 | | | (ADVIL,MOTRIN) 600 | for 7 days. Then | tablet | | 14 | 4 | | MG tablet | one pill once each | | | | | | | day for 7 days then | | | | | | | stopp | | | | | + + [...] tablet by | 30 | 0 | 01/16/20 | | | tartrate (LOPRESSOR) | mouth [...] 0 | 01/14/20 | | | SA (ALBER SARGENT-GERA) | mouth 2 times daily. | tablet [...] + +---------+ + + | warfarin | 2 pills once each | 60 | 0 | 01/14/20 | | | (COUMADIN) 2 mg | day. | tablet | | 14 | 4 [...]
--- OUTSIDE RECORDS SUMMARY | ~2019-07-30 | XMS | Encounter Summary ---
Demographics + + + | Address | [address] | | | [place] [address] | + + + | Home Phone | | + + + | Preferred Language | Unknown | + + + | Marital Status | | + + + | Church Affiliation | [id number] | + + + | Race | Unknown | + + + | Ethnic Group | Unknown | + + + Author + + + | Author | [facility] | | | and [place] | + + + | Organization | [facility] | | | and [place] | + + + | Address | Unknown | + + + | Phone | Unavailable | + + + Support + + +---------+ + | Name | Relationship | Address | Phone | + + +---------+ + | Kimberly Lyon | ECON | Unknown | | + + +---------+ + | Francesmami Pinto | ECON | Unknown | | + + +---------+ + Care Team Providers + +------+ + | Care Utility Appraiser Name | Role | Phone | + [...] Closed | | | Diagnoses | | [facility] | | | | | CHEST | | Tele [address] | | | | [address] | | [address] | | | | | [place] | | [place] | | | | | | | [address] | | | | | | | Phone: | | | | | | | [phone] | | | | | | | Fax: | | | | | | | [phone] | +--------+--------+ + + + + Encounter Details +--------+ + + + + | Date | Type | Department | Care Team | Description | +--------+ + + + + | 12/16/ | Hospital | [facility] | [facility] | Hyperlipidemia | | 2014 - | Encounter | [facility] | MD Kaylan [address] | (Primary Dx); HTN | | | | CARDIAC TELEMETRY | [address] [place] | (hypertension); | | 12/18/ | | [address] | [address] | Coronary | | 2013 | | [place] | | atherosclerosis of | | | | [address] | | unspecified type of | | | | [phone] | | vessel, [place] or | | | | | | graft; Non-STEMI | | | | | | (non-ST elevated | | | | | | myocardial | | | | | | infarction) ([facility]); | | | | | | Uncontrolled | | | | | | hypertension; | | | | | | Allergic reaction to | | | | | | contrast dye, | | | | | | subsequent | | | | | | encounter; Other | | | | | | specified forms of | | | | | | chronic ischemic | | | | | | heart disease; | | | | | | NSTEMI (non-ST | | | | | | elevated myocardial | | | | | | infarction) ([facility]); | | | | | | S/P CABG x 4; Acute | | | | | | systolic heart | | | | | | failure ([facility]) | +--------+ + + + + Social [...] + + + | Blood Pressure | 116/70 | 12/18/2013 8:07 AM | | | | | PDT | | + + + + + | Pulse | 65 | 12/18/2013 8:07 AM | | | | | PDT | | + + + + + | Temperature | 36.2 C (97.1 F) | 12/18/2013 8:07 AM | | | | | PDT | | + + + + + | Respiratory Rate | 18 | 12/18/2013 8:07 AM | | | | | PDT | | + + + + + | Oxygen Saturation | 97% | 12/18/2013 8:07 AM | | | | | PDT | | + + + + + | Inhaled Oxygen | - | - | | | Concentration | | | | + + + + + | Weight | 76.5 kg (168 lb 10.4 | 12/16/2013 2:39 AM | | | | oz) | PDT | | + + + + + | Height | 165.1 cm (5' 5") | 12/16/2013 2:39 AM | | | | | PDT | | + + + + + | Body Mass Index | 28.07 | 12/16/2013 2:39 AM | | | | | PDT [...] documented as of this encounter Discharge Summaries Court Sinclair RN - 12/18/2013 2:00 PM PDTDischarge: NSTEMI. Hx of several NSTEMI's and heart caths with stents. Last one was in October of this year. Heart cath yesterday. R ary site WNL .No stents placed, and open heart is recommended for multivessel disease. Pt to DC to home with . Will return on December 23 for appt's and check in on December 24 for [place]. Pt is aware of all appt's and has confirmation number for good night sleep program. Prescr iptions were sent to [facility] in [place]. All medications were reviewed with pt and . All questions answered. They both verbally confirmed understanding. Pt is understands s he needs to limit activity. Heart disease and Heart surgery information books were given to pt. Dc to home. Erum Stuart MD - 12/18/2013 10:20 AM PDTATTENDING ADDENDUM: I personally saw and exami rickie the patient, discussed care plan and reviewed the shepherd components of the data including c ardiac studies and laboratory evaluation. I agree with the subjective, ROS and examination as written with the only differences noted in my addendum below. Time Spent in visit and coordination of care: 35-45 minutes ADDENDUM TO VISIT: Subjective: Denies groin problem, dizziness, TIA symptoms, bleeding, chest pain even with a mbulation, PND. Follow up Review of Systems x 8 systems done today: General ROS: negative Cardiovascular ROS: no chest pain or dyspnea on exertion Respiratory ROS: no cough, shortness of breath, or wheezing Hematological and Lymphatic ROS: negative Neurological ROS: no TIA or stroke symptoms Dermatological ROS: negative Gastrointestinal ROS: no abdominal pain, change in bowel habits, or black or bloody stools Genito-Urinary ROS: no dysuria, trouble voiding, or hematuria My examination: Vitals as noted. GENERAL: Pleasant individual in no apparent distress. Her offering support at the bedside, both asking appropriate questions about the plan HEENT: Conjunctivae and lids are normal in appearance. Eyes: Extraocular movements intact. NECK: Supple neck without masses or adenopathy. There is no visible JVD but it is a diffic ult examination due to thicker neck. No thyromegaly CHEST: Good inspiratory effort with no crackles, ronchi, or wheezes. Diminished at the base s. CARDIAC:PMI is non-palpable due to body habitus. Regular rate and rhythm with normal S1 and S2. Heart sounds are somewhat distant due to body habitus. No murmurs, rubs or gallops. Blo od pressures are equal in upper extremities. ABDOMEN: Obese abdomen limits examination. Soft, non-tender, nondistended with normal, acti ve bowel sounds. Abdominal aorta not palpable. No bruits. EXTREMITIES: No clubbing, cyanosis. There is mild ankle edema. PULSES:Femoral pulses are intact - no thrill or bruit. Has no hematoma at cath site on the right. 1+ PT pulses bilaterally. NEUROLOGIC: Non-focal. Patient is oriented to time, place, and person. Normal affect. SKIN: No rashes or skin breakdown. MUSCULOSKELETAL: Back is negative for scoliosis/kyphosis. ADDENDUM TO PLAN: 1. CAD - multivessel, with new ischemic CM 2. On plavix 3. Dyslipidemia 4. Acute systolic heart failure Plan: Hold plavix, continue aspirin and heart failure regimen. Today more than half of my visit was patient education with patient and her kevin corrales the plan, benefits of heart failure medications and what to watch for. CABG next week with Dr. Viera. Electronically signed by: Erum Gerardo MD 12/18/2013 13:00 Natalia Moulton ARNP - 12/18/2013 10:20 AM PDTFormatting of this note might be different from the origi nal. PATIENT NAME: Markie Pinto : 1940: AGE: 73 y.o. ADMISSION DATE: 12/16/2013 DISCHARGE DATE: 12/18/2013 PRIMARY CARE: MD Tonia Thao ARNP DISCHARGE SUMMARY Principal Hospital Problem: NSTEMI (non-ST elevated myocardial infarction) ([facility]) Admission Diagnoses: HOSPITAL PROBLEM LIST FULL PROBLEM LIST Principal Problem: *NSTEMI (non-ST elevated myocardial infarction) ([facility]) Active Problems: CORONARY ARTERY DISEASE CARDIOMYOPATHY DILATED ISCHEMIC Allergic reaction to contrast dye Patient Active Problem List Diagnosis HYPOTHYROIDISM HYPERLIPIDEMIA SLEEP APNEA OBSTRUCTIVE RESTLESS LEGS SYNDROME ESSENTIAL HYPERTENSION BENIGN CORONARY ARTERY DISEASE CARDIOMYOPATHY DILATED ISCHEMIC CHRONIC SINUSITIS CEREBRAL ISCHEMIA Nausea Allergic reaction to contrast dye NSTEMI (non-ST elevated myocardial infarction) ([facility]) Discharge Diagnoses: NSTEMI (non-ST elevated myocardial infarction) ([facility]) Assessment & Plan A:NSTEMI. Heart catheterization with significant coronary artery disease. No further ches t discomfort since admission. PLAN: Continue ASA, beta candice, statin and SHAMA I. Surgery 12/24/2013 after plavix has worn off. CORONARY ARTERY DISEASE Overview 12/17/2013 heart catheterization : Hemodynamics: Left ventricular pressure was with LV end-diastolic pressure (LVEDP) 158/18 m m Hg. There is no significant aortic valve gradient. Aortic pressure ranged between 130-170 systolic during procedure. She was given IV metoprolol for hypertension Left Ventriculography:Not done to spare dye load. Left main coronary artery: Originates normally. Widely patent. Left anterior descending coronary artery: Calcified with high-grade stenoses just after the first diagonal and again at the second diagonal. The distal LAD is small with diffuse mild to moderate disease. There are 3 medium to large diagonals with ostial or adjacent LAD high- grade disease. Circumflex coronary artery: Stent is mid-occluded. There are weak right to left collaterals to the OM. There is diffuse disease. Right coronary artery: Is the dominant vessel. There is a 90% ostial stenosis with subtotal ed PL. The right is seen by left to right collateral. S/P NSTEMI 10/26/13 in [place] Rxd medically; Echo EF 50% with inferior hypokinesis S/P N-STEMI 2004, 08/04/08, 03/31/11, 12/07/11. S/P drug eluting stents to circ. 11/15/05. 1.1. Status post 2.75 x 24 mm TAXUS stent and 2.5 x 20 mm TAXUS stent to a long diffuse circumfl ex lesion 11/16/05. 1.2. Normal left ventricular function 11/15/05. 1.3. Non-ST elevated myocardial infarction 03/31/11. NON MASON to CircX 3 1.4. History of non-ST elevated myocardial infarction in 2004. 1.5. Non-ST elevation acute myocardial infarction 08/04/08. Assessment & Plan A: Heart catheterization with above findings. PLAN: Surgery 12/24/2013 when plavix has worn off. Continue ASA, statin, BB, ACEI. HYPERLIPIDEMIA Overview Lipids 12/16/13: Ref. Range 12/16/2013 10:13 Cholesterol Latest Range: <200 mg/dL 115 HDL Cholesterol Latest Range: 40-59 mg/dL 53 LDL, Calculated Latest Range: <100 mg/dL 48 Triglycerides Latest Range: <150 mg/dL 70 Assessment & Plan A:Lipids as noted above. In light of her low LDL, will decrease her atorvastatin dose and re-evaluate in several weeks. PLAN: Decrease atorvastatin to 40 mg. Recheck lipids in 4-6 weeks. ESSENTIAL HYPERTENSION BENIGN Assessment & Plan A:Good control. Plan: Continue her current hypertensive medications Procedures In Hospital: CV DIAGNOSTIC CARDIAC CATH: FINDINGS: Hemodynamics: Left ventricular pressure was with LV end-diastolic pressure (LVEDP) 158/18 m m Hg. There is no significant aortic valve gradient. Aortic pressure ranged between 130-170 systolic during procedure. She was given IV metoprolol for hypertension Left Ventriculography:Not done to spare dye load. Left main coronary artery: Originates normally. Widely patent. Left anterior descending coronary artery: Calcified with high-grade stenoses just after the first diagonal and again at the second diagonal. The distal LAD is small with diffuse mild to moderate disease. There are 3 medium to large diagonals with ostial or adjacent LAD high- grade disease. Circumflex coronary artery: Stent is mid-occluded. There are weak right to left collaterals to the OM. There is diffuse disease. Right coronary artery: Is the dominant vessel. There is a 90% ostial stenosis with subtotal ed PL. The right is seen by left to right collateral. CONCLUSIONS: 1. Multivessel CAD. I am hopeful that the right or its PDA, the LAD and one or more of the diagonals may be acceptable bypass targets. 2. Elevated LV EDP. 3. Ischemic CM newly noted by both echo and nuclear study. LV EF about 40%. 12/16/2013 0000 ECHO : 1. Moderate concentric left ventricular hypertrophy with posterior wall hypokinesia. LV EF 50-55%. The inferolateral/posterior hypokinesia appears to be new. 2. Normal right ventricular size and function. 3. Mild mitral valve regurgitation. Posterior annular calcification noted. 4. Aortic valve sclerosis without stenosis. 12/15/2013 CHEST X-RAY PORTABLE ONE VIEW : IMPRESSION: Stable chest x-ray. No change compared to previous. 12/16/2013 Nm Nuclear Stress Test (vasodilator): Impression: ECG stress test results: 1. Normal baseline 12 lead electrocardiogram. 2. No s ignificant arrhythmias noted throughout monitoring. 3. The ECG findings are nondiagnostic. Myocardial perfusion results: 1. Myocardial perfusion imaging is abnormal. 2. There is a l arge area of moderately reduced tracer uptake that is most consistent with ischemia in all lateral wall segments as well as the anterolateral base and the inferolateral base. There is mild persistence of the lateral wall defect proximally, so some degree of infarction or dense ischemia is present. The SDS score is 9 which is consistent with a high risk study. 3. Overall left ventricular systolic function is abnormal with regional wall motion abn ormalities and the LVEF is 42%. 4. By imaging criteria, this is a high risk test result. Hospital Course: 73 year old female with known atherosclerotic heart disease status post non ST elevate d myocardial infarction who presented on 12/16/2013 with chest pain. She was transferred from [place] after presenting there having severe chest pain earlier in the evening. It was mi dsternal pain with no radiation but weakness in her arms. It was 10 out of 10 in intensity a nd lasted for 90 minutes. There is no associated shortness of breath or diaphoresis. This is similar pain that she had previously. 2 months ago she had positive enzymes but no workup at a hospital in [place]. She has had prior stents in 2004 to the circumflex and known di ffuse disease in the LAD. She underwent nuclear stress testing because patient did not want to undergo heart catheterization secondary to a iodine allergy. Her nuclear stress test wa s abnormal with a large amount of antlateral and lateral wall ischemia. She underwent heart catheterization with left anterior descending, posterior descending artery, and diagonal di sease. She was seen in consultation by Dr. Viera and will undergo CABG on 12/24/2013 once he r antiplatelet effects of plavix have worn off. She is being discharged home on medical ther apy 12/17/2013. Discharge Exam: GENERAL: Pleasant, in no apparent distress NECK: Supple. No JVD CHEST: Good inspiratory effort with no crackles, ronchi, or wheezes. CARDIAC: Normal S1 and S2. No murmurs, rubs or gallops. ABDOMEN: Soft, non-tender, nondistended with normal, active bowel sounds. EXTREMITIES: No clubbing, cyanosis, or edema. PULSES: Right: femoral 2+ DP 2+, PT 2+ Left: femoral 2+ DP 2+, PT 2+ NEUROLOGIC: Non-focal. SKIN: No rashes or skin breakdown. INCISION: Right groin CDI. TELEMETRY: NSR Vital Signs: Temp: 36.2 C (97.1 F) BP: 116/70 mmHg Pulse: 65 Resp: 18 SpO2: 97 % Last Wt. Before discharge: Weight: 76.5 kg (168 lb 10.4 oz) Wt. Admission: Weight: 76.5 kg (168 lb 10.4 oz) Labs: Recent Labs Basename 12/18/13 0409 12/17/13 0419 12/16/13 1013 12/16/13 0249 12/15/13 2141 WBC 8.1 -- -- 6.6 6.1 HGB 12.2 -- -- 11.6 13.5 HCT 36.1 -- -- 35.1 39.0 NA -- -- -- 136 139 K -- -- -- 3.8 3.4* CL -- -- -- 102 98 CO2 -- -- -- 27 29 BUN -- -- -- 18 15 CREA -- -- -- 1.07* 1.30* GLU -- -- -- 119* 131* CALCIUM -- -- -- 9.4 9.3 INR -- 1.1 -- -- 1.1 PT -- -- -- -- -- PTT -- -- -- -- -- CKMB -- -- -- 26.4* 3.0 TROPONINI -- -- 11.91* 4.57* 0.39* BNP -- 312* -- -- -- Lab Results Component Value Date CHOL 115 12/16/2013 LDL 48 12/16/2013 HDL 53 12/16/2013 TRIG 70 12/16/2013 Lab Results Component Value Date TSH 3.7 03/24/2011 Lab Results Component Value Date HBA1C 5.5 12/16/2013 Discharge Medications: Medications prior to admission that will be resumed at discharge: Medication Sig Dispense Refill ascorbic acid ([employer] VITAMIN C) 1000 MG tablet Take 1,000 mg by mouth Daily. aspirin 81 mg EC tablet Take 81 mg by mouth Daily. B Geefkwu-Suixth-VH ( VITAMIN B 50/B-COMPLEX) TABS once a day lisinopril (PRINIVIL, ZESTRIL) 10 mg tablet Take 1 tablet by mouth Daily. 30 tablet 0 magnesium (GNP MAGNESIUM) 250 MG tablet Take 250 mg by mouth 2 times daily. nitroglycerin (NITROSTAT) 0.4 mg SL tablet 0.4 mg as needed for chest pain, may repeat every 15 mins x 2 100 tablet 2 pantoprazole (PROTONIX) 40 mg tablet Take 40 mg by mouth once. New medications prescribed at discharge: Medication Sig Dispense Refill atorvaSTATin (LIPITOR) 40 mg tablet Take 1 tablet by mouth Daily. 30 tablet 11 metoprolol tartrate (LOPRESSOR) 50 mg tablet Take 1 tablet by mouth 2 times daily. 60 tablet 11 Discharge Plan: Heart healthy diet, No strenuous activity for 2 weeks and Usual post heart-cath instruct ion Follow-Up: Follow-up with Doug García in 1-2 weeks. Follow-up with Dr. Christianson with [facility] at 1:00 P.M. On 02/10/2014 [id number]. Follow-up with Dr. Viera 12/23/2013 for pre-op surgical evaluation. If patient has any further questions or concerns prior to above, instructed to call our off ice. Time spent on discharge planning:less than 30 minutes Signed by: ABBY Keyes 12/18/2013, 10:42 documented in this encounter Medications at Time [...] once a day | | 0 | 09/21/20 | | | Ppbnkfj-Oiyogq-CW | | | | 11 | 4 | | (TH VITAMIN B | | | | | | | 50/B-COMPLEX) TABS | | | | | | + + + +---------+ + + | ferrous gluconate | Take 1 tablet by | 60 | 1 | 01/03/20 | | | (JENARO) 324 (38 FE) | mouth 2 times [...] +---------+ + + | lisinopril | Take 1 tablet by | 30 | 0 | 12/12/19 | | | (PRINIVIL, ZESTRIL) | mouth Daily. | tablet | | 14 | 4 | | 10 mg | | | | | | | tabletIndications: | | | | | | | HTN (hypertension) | | | | | | + [...] Take 1 tablet by | 60 | 11 | 12/19/19 | | | tartrate (LOPRESSOR) | mouth 2 times daily. | tablet | | 14 | 4 | | 50 mg tablet | | | | | | + + + +---------+ + + | nitroglycerin | 0.4 mg as needed for | 100 | 2 | 07/16/20 | | | (NITROSTAT) 0.4 mg | chest pain, may | tablet | | 13 | 4 | | SL tablet | repeat every 15 mins | | | | | | | x 2 | | | | | + + + +---------+ + + | pantoprazole | Take 40 mg by mouth | | 0 | 10/29/19 | | | (PROTONIX) 40 mg | once. | | | 14 | 4 | [...] documented as of this encounter Progress Notes KALI MENESES - 12/22/2013 12:00 AM PDT 14 4:00 PM Erum Randall MD - 12/17/2013 10:01 AM PDTFormatting of this note mi ght be different from the original. Cardiology progress NOTE [facility] 12/17/2013 Rounding Physician: ABBY Farnsworth Patient Name: Markie Pinto : 1940 Medical Record: [id number] Hospital Day: Hospital Day: 2 Code Status: Full Code Primary Hospital Problem: NSTEMI (non-ST elevated myocardial infarction) (HCC) Chief Complaint: No further chest pain. Anxious secondary to possible heart cath and iodi ne allergy. ATTENDING ADDENDUM: I personally saw and examined the patient, discussed care plan and revi ewed the shepherd components of the data including cardiac studies and laboratory evaluation. I agree with the subjective, ROS and examination as written with the only differences noted in my addendum below. Time Spent in visit and coordination of care: 35-40 minutes ADDENDUM TO VISIT: Subjective: No bleeding, dizziness, orthopnea, CP,PND, palpitations, TIA symptoms overnigh t. No cough, hemoptysis or pleurisy. Has had opportunity to discuss cath with her a nd she agrees now to proceed. Follow up Review of Systems x 8 systems done today: General ROS: negative Cardiovascular ROS: no chest pain or dyspnea on exertion Respiratory ROS: no cough, shortness of breath, or wheezing Hematological and Lymphatic ROS: negative Neurological ROS: no TIA or stroke symptoms Dermatological ROS: negative Gastrointestinal ROS: no abdominal pain, change in bowel habits, or black or bloody stools Genito-Urinary ROS: no dysuria, trouble voiding, or hematuria Attending examination: Vitals and labs as noted. GENERAL: Pleasant obese individual in no apparent distress HEENT: Conjunctivae and lids are normal in appearance. Eyes: Extraocular movements intact. NECK: Supple neck without masses or adenopathy. There is no visible JVD but it is a diffic ult examination due to thicker neck. Carotids are 2+ and brisk bilaterally without bruits. No thyromegaly CHEST: Good inspiratory effort with no crackles, ronchi, or wheezes. Diminished at the base s. CARDIAC:PMI is non-palpable due to body habitus. Regular rate and rhythm with normal S1 and S2. Heart sounds are somewhat distant due to body habitus. No murmurs, rubs or gallops. Blo od pressures are equal in upper extremities. ABDOMEN: Obese abdomen limits examination. Soft, non-tender, nondistended with normal, acti ve bowel sounds. Abdominal aorta not palpable. No bruits. EXTREMITIES: No clubbing, cyanosis. There is mild ankle edema. PULSES:Femoral pulses are deep but 1+ bilaterally - no bruit. 1+ PT pulses bilaterally. NEUROLOGIC: Non-focal. Patient is oriented to time, place, and person. Normal affect. SKIN: No rashes or skin breakdown. MUSCULOSKELETAL:No red joints. EKG: SR no ST shifts. ADDENDUM TO PLAN: 1. Dye allergy - discussed risk and benefit of cath including with premedication. 2. High risk stress test, ACS, known CAD and new ischemic cardiomyopathy. I feel strongly that she needs a cath although we discussed the alternative of medical therapy and its limi tation, as well as the fact that her EF is now depressed, a worrisome finding. We discusse d the risk, benefits and alternatives to coronary angiography. Risks discussed included but were not limited to internal bleeding, blood vessel damage, stroke, kidney failure and need for emergency surgery. After discussion of options the patient consented to proceed with a ngiography. Plan: Stat IV steroids and benadryl IVF Cath with possible PCI - compliance with plavix discussed. Electronically signed by: Erum Gerardo MD 12/17/2013 12:09 ASSESSMENT NSTEMI (non-ST elevated myocardial infarction) (HCC) Overview Troponin elevation admit 12/16/13: Ref. Range 12/15/2013 21:41 12/16/2013 02:49 12/16/2013 10:13 TROPONIN I Latest Range: 0.00-0.29 ng/mL 0.39 (H) 4.57 (HH) 11.91 (HH) Assessment NSTEMI with troponins as noted above. High risk nuclear study yesterday. No further chest discomfort since admission. PLAN: NPO now. Dr. Gerardo to discuss heart cath with patient - has previously declined. She has an i odine allergy and reports that "her heart stops every time she has a cath." Will need pretreatment for iodine allergy. HYPERLIPIDEMIA Overview Lipids 12/16/13: Ref. Range 12/16/2013 10:13 Cholesterol Latest Range: <200 mg/dL 115 HDL Cholesterol Latest Range: 40-59 mg/dL 53 LDL, Calculated Latest Range: <100 mg/dL 48 Triglycerides Latest Range: <150 mg/dL 70 Assessment Lipids as noted above. In light of her low LDL, will decrease her atorvastatin dose and re -evaluate in several weeks. PLAN: Decrease atorvastatin to 40 mg. Recheck lipids in 4-6 weeks. CORONARY ARTERY DISEASE Overview S/P NSTEMI 10/26/13 in [place] Rxd medically; Echo EF 50% with inferior hypokinesis S/P N-STEMI 2004, 08/04/08, 03/31/11, 12/07/11. S/P drug eluting stents to circ. 11/15/05. 1.1. Status post 2.75 x 24 mm TAXUS stent and 2.5 x 20 mm TAXUS stent to a long diffuse circumfl ex lesion 11/16/05. 1.2. Normal left ventricular function 11/15/05. 1.3. Non-ST elevated myocardial infarction 03/31/11. NON MASON to CircX 3 1.4. History of non-ST elevated myocardial infarction in 2004. 1.5. Non-ST elevation acute myocardial infarction 08/04/08. Nuclear stress study 12/16/13: Myocardial perfusion results: 1. Myocardial perfusion imaging is abnormal. 2. There is a large area of moderately reduced tracer uptake that is most consistent with ischemia in all lateral wall segments as well as the anterolateral base and the inferolateral base. There is mild persistence of the lateral wall defect proximally, so some degree of infarction or dense ischemia is present. The SDS score is 9 which is consistent with a high risk study. 3. Overall left ventricular systolic function is abnormal with regional wall motion abnormalities and the LVEF is 42%. 4. By imaging criteria, this is a high risk test result (see table below)*. Assessment High risk nuclear stress study yesterday (results above). Patient has previously declined heart cath, but was potentially amenable pending nuclear results. PLAN: Will make NPO as of now. Dr. Gerardo to see and discuss heart cath - possibly later today. Continue ASA, statin, BB, ACEI. CARDIOMYOPATHY DILATED ISCHEMIC Overview EF 42% by nuclear stress study 12/16/13. Assessment & Plan Euvolemic at present with stable weights. Uncontrolled hypertension Assessment & Plan BP suboptimally controlled with SBPs of 150. Serum creatinine slightly elevated, so will h old on uptitration of ACEI at present. HR 60's - leave BB at same dose. Could add CCB (amlo dipine) - EF at 42% by nuclear stress study. PLAN: Continue to monitor. May have heart cath today and will reassess. PLAN NPO for now for possible heart cath later today. Will need pretreatment for iodine allergy. Decrease statin dose. NEW ORDERS SUBJECTIVE DATA REVIEW OF SYSTEMS: Consitutional: no weight loss, fever, night sweats CV: negative Resp: negative GI: negative Skin: negative OBJECTIVE DATA VITAL SIGNS: Vitals Current Average / Min / Max Temp 36.1 C (96.9 F) Temp Min: 35.9 C (96.6 F) Max: 36.6 C (97.9 F) BP 150/84 mmHg BP Min: 113/68 Max: 159/96 HR 72 Pulse Av.2 Min: 54 Max: 72 RR 20 Resp Av Min: 16 Max: 20 Sats 99 % SpO2 Min: 96 % Max: 99 % Weight 76.5 kg (168 lb 10.4 oz) Admit: 76.5 kg (168 lb 10.4 oz) INTAKE/OUTPUT: Intake/Output Summary (Last 24 hours) at 12/17/13 1008 Last data filed at 12/17/13 0400 Gross per 24 hour Intake 1369 ml Output 1200 ml Net 169 ml Date 12/16/131900 - 12/17/13 0712/17/13700 - 12/18/13 0700 Shift 9607-8775 24 Hour Total 6349-3919 5008-8567 24 Hour Total I N T A K E P.O. 600 1050 P.O. 0 0 Free Water Intake (mL) 600 1050 I.V. (mL/kg/hr) 318 (0.3) 318 (0.2) Volume (ml) Heparin 318 318 Other 1 Other 1 Shift Total (mL/kg) 918 (12) 1369 (17.9) O U T P U T Urine (mL/kg/hr) 550 (0.6) 1200 (0.7) Shift Total (mL/kg) 550 (7.2) 1200 (15.7) NET 368 169 Weight (kg) 76.5 76.5 76.5 76.5 76.5 MEDICATIONS: Scheduled PRN [COMPLETED] aminophylline aspirin 81 mg Oral Daily atorvaSTATin 40 mg Oral Nightly clopidogrel 75 mg Oral Daily [COMPLETED] dipyridamole [] heparin 2,000-8,000 Units Intravenous Once lisinopril 10 mg Oral Daily metoprolol tartrate 25 mg Oral TID [] nitroglycerin 0.4 mg Sublingual Once heparin infusion 750 Units/hr (12/17/13 0400) heparin, HYDROcodone-acetaminophen, nitroglycerin, ondansetron, [COMPLETED] technetium TC- 99M sestamibi, [COMPLETED] technetium TC-99M sestamibi, zolpidem PHYSICAL EXAMINATION: General: Laying in bed watching television. HEENT: Normal Neck: normal Chest: Normal chest wall and respirations. Clear to auscultation. Cardiovascular: regular rate and rhythm, S1, S2 normal, no murmur, click, rub or gallop Abdomen: soft, non-tender; bowel sounds normal; no masses, no organomegaly Extremities: negative Skin: no rashes Neuro: non-localizing; gross motor functions and CN's intact DIAGNOSTICS: Labs: Lab 12/16/13 0249 12/15/13 2141 WBC 6.6 6.1 HGB 11.6 13.5 HCT 35.1 39.0 Lab 12/16/13 1013 12/16/13 0249 12/15/13 2141 NA -- 136 139 K -- 3.8 3.4* CL -- 102 98 CO2 -- 27 29 BUN -- 18 15 CREA -- 1.07* 1.30* GLUCOSE -- -- -- CALCIUM -- 9.4 9.3 ALT 20 -- 35 AST 42 -- 24 ALKPHOS 64 -- 98 BILITOT 0.5 -- 0.4 Lab 12/16/13 1013 12/16/13 0249 12/15/13 2141 TROPONINI 11.91* 4.57* 0.39* TROPONINT -- -- -- Lab 12/17/13 0419 12/15/13 2141 APTT -- -- INR 1.1 1.1 PTT -- -- Lab Results Component Value Date HBA1C 5.5 12/16/2013 Lab Results Component Value Date CHOL 115 [...] with any questions, Electronically signed by: ABBY Farnsworth, DATE/TIME: 12/17/2013 10:08 [facility] 14 12:09 PM Erum Randall MD - 12/16/2013 9:04 AM PDTFormatting of this note mi ght be different from the original. [facility] PATIENT NAME: Markie Pinto : 1940: AGE: 73 y.o. ADMISSION DATE: 12/16/2013 PRIMARY CARE: MD Erum Thao MD DAILY PROGRESS NOTE 35-40 minutes of critical care time. CURRENT ASSESSMENT AND PLAN 1. Non-STEMI with known CAD, pain free on medical therapy. I recommend coronary angiograp hy. She refuses but will do a stress scan and consider cath if high risk. She just had anot her WI several weeks ago in [place] so she is pretty high risk clinically. Her understan ding of her disease process is poor; education being done. She thinks her WI in [place] was due to "getting too cold" and that food causes her angina. 2. Dye allergy. 3. Medical nonadherence 4. Uncontrolled hypertension. 5. Dyslipidemia - currently on atorvastatin. Plan: Echo to check post infarction EF Cath recommended but she declines. Risk benefit discussed including premedication for dye allergy. P-Nuclear perfusion study Lisinopril was just increased to 5 from 2.5 on 11/19 for uncontrolled hypertension. Will tit rate medications further. Lisinopril increased to 10 mg and metoprolol to 25 tid - hemodynam ics permitting. Recheck lipids, LFTs, a1c. Plavix and aspirin and, for now, IV heparin. SUBJECTIVE: The patient reports no chest pain since her arrival to outside ER. Her chest p ain was typical of angina. Wants to walk, eat. Refuses cath. No orthopnea, PND, bleeding, m carlin, abdominal or back pain, orthopnea, PND, TIA symptoms. REVIEW OF SYSTEMS X 14: CONSTITUTIONAL, ID: No weight change, fatigue, weakness, fever or rigors. EYE, HENT: No new visual field loss, blurry vision, headache or sinus symptoms. GI: No melena, abdominal pain, nausea, vomiting. : No bladder spasm, dysuria, hematuria, flank pain. PULMONARY: No cough, hemoptysis, sputum, pleurisy. CV: As above. SKIN: no new rashes. ALLERGIC, IMMUNOLOGIC, MUSCULOSKELETAL: No immunosuppressive therapy, HIV, new joint or neva k pain. ENDOCRINE: No polydipsia, polyuria, thyroid symptoms. HEMATOLOGIC/ONCOLOGIC: No masses, bleeding or clotting issues. Active Problems: CORONARY ARTERY DISEASE Allergic reaction to contrast dye SCHEDULED MEDS: [START ON 12/17/2013] aspirin 81 mg Oral Daily atorvaSTATin 80 mg Oral Nightly clopidogrel 75 mg Oral Daily heparin 2,000-8,000 Units Intravenous Once lisinopril 10 mg Oral Daily metoprolol tartrate 25 mg Oral BID nitroglycerin 0.4 mg Sublingual Once [COMPLETED] pantoprazole 40 mg Oral Once IV INFUSIONS: heparin infusion LABS Recent Results (from the past 24 hour(s)) CBC WITH DIFFERENTIAL Collection Time 12/15/13 2141 Component Value Range WBC 6.1 4.0 - 11.0 K/uL RBC 4.20 3.80 - 5.20 M/uL Hgb 13.5 11.6 - 15.5 g/dL Hct 39.0 35.0 - 46.0 % MCV 92.8 80.0 - 100.0 fL MCH 32.0 27.0 - 34.0 pg MCHC 34.5 32.0 - 35.5 g/dL RDW 13.0 11.0 - 15.0 % Platelet Count 171 150 - 400 K/uL Differential Type Automated % Neutrophils 61.0 38.0 - 80.0 % % Lymphocytes 27.6 21.0 - 49.0 % % Monocytes 8.9 3.0 - 11.0 % % Eosinophils 2.0 0.0 - 7.0 % % Basophils 0.5 0.0 - 2.0 % Absolute Neutrophils 3.80 1.8 - 7.7 K/uL Absolute Lymphocytes 1.70 1.0 - 5.0 K/uL Absolute Monocytes 0.50 0 - 0.8 K/uL Absolute Eosinophils 0.10 0 - 0.5 K/uL Absolute Basophils 0.00 0.0 - 0.2 K/uL COMPREHENSIVE METABOLIC PANEL Collection Time 12/15/132140 Component Value Range NA 139 135 - 145 mmol/L K 3.4 (*) 3.5 - 5.1 mmol/L CL 98 98 - 109 mmol/L CO2 29 21 - 32 mmol/L GLUCOSE 131 (*) 60 - 114 mg/dL BUN 15 8 - 21 mg/dL Creatinine, Serum 1.30 (*) 0.5 - 1.2 mg/dL CALCIUM 9.3 8.4 - 10.5 mg/dL Total protein 8.3 (*) 6.3 - 8.0 g/dL ALBUMIN 4.3 3.5 - 5.0 g/dL BILIRUBIN TOTAL 0.4 0.2 - 1.0 mg/dL ALK PHOS 98 38 - 110 U/L AST 24 5 - 40 U/L ALT 35 12 - 78 U/L ANION GAP 15 10 - 20 mmol/L Estimated GFR 43 (*) >60 ml/min/1.73m2 CK-MB Collection Time 12/15/132140 Component Value Range CK TOTAL 191 (*) 37 - 153 U/L CK-MB 3.0 0 - 7.0 ng/mL Relative Index 1.6 <4.0 % TROPONIN I Collection Time 12/15/132140 Component Value Range TROPONIN I 0.39 (*) 0.00 - 0.08 ng/mL NT-PRO BNP Collection Time 12/15/132140 Component Value Range NT-PRO BNP 558 (*) <125 pg/mL PROTIME INR Collection Time 12/15/132140 Component Value Range PROTIME 10.9 8.9 - 11.7 sec INR 1.1 0.9 - 1.3 PTT Collection Time 12/15/132140 Component Value Range aPTT, Patient 24 21 - 32 sec CBC WITH DIFFERENTIAL Collection Time 12/16/13248 Component Value Range WBC 6.6 3.8 - 11.0 K/uL RBC 3.74 3.70 - 5.10 M/uL Hgb 11.6 11.3 - 15.5 g/dL Hct 35.1 34.0 - 46.0 % MCV 93.9 80.0 - 100.0 fL MCH 31.1 27.0 - 34.0 pg MCHC 33.2 32.0 - 35.5 g/dL RDW 13.3 11.0 - 15.5 % Platelet Count 142 (*) 150 - 400 K/uL Differential Type Automated % Neutrophils 70.6 40.0 - 75.0 % % Lymphocytes 19.4 15.0 - 48.0 % % Monocytes 8.0 0.0 - 12.0 % % Eosinophils 1.5 0.0 - 7.0 % % Basophils 0.5 0.0 - 2.0 % Absolute Neutrophils 4.60 1.90 - 7.40 K/uL Absolute Lymphocytes 1.30 1.00 - 3.90 K/uL Absolute Monocytes 0.50 0.00 - 0.80 K/uL Absolute Eosinophils 0.10 0.00 - 0.50 K/uL Absolute Basophils 0.00 0.00 - 0.10 K/uL TROPONIN I Collection Time 12/16/13248 Component Value Range TROPONIN I 4.57 (*) 0.00 - 0.29 ng/mL CK-MB Collection Time 12/16/13248 Component Value Range CK TOTAL 263 (*) 30 - 240 U/L CK-MB 26.4 (*) <7.5 ng/mL Relative Index 10.0 (*) <3.1 % BASIC METABOLIC PANEL Collection Time 6/2/14 0249 Component Value Range NA 136 135 - 145 mmol/L K 3.8 3.5 - 5.0 mmol/L CL 102 99 - 109 mmol/L CO2 27 21 - 28 mmol/L GLUCOSE 119 (*) 65 - 99 mg/dL BUN 18 8 - 25 mg/dL Creatinine, Serum 1.07 (*) 0.50 - 1.00 mg/dL CALCIUM 9.4 8.5 - 10.2 mg/dL ANION GAP 7 5 - 16 mmol/L Estimated GFR 50 (*) >60 ml/min/1.73m2 PTT Collection Time 12/16/13 0626 Component Value Range aPTT, Patient 106 (*) 26 - 36 sec aPTT, Pop Mean 31 OBJECTIVE LATEST VITALS: BP 166/96 | Pulse 60 | Temp 36.6 C (97.8 F) (Temporal) | Resp 20 | Ht 1 .651 m (5' 5") | Wt 76.5 kg (168 lb 10.4 oz) | BMI 28.07 kg/m2 | SpO2 97% I/O s (this shift): Vital sign ranges for last 24hrs: Input and output for last 24hrs: Temp: [36 C (96.8 F)-36.7 C (98 F)] 36.6 C (97.8 F) Pulse: [60-92] 60 Resp: [11-20] 20 BP: (118-166)/(55-96) 166/96 mmHg SpO2 Av.5 % Min: 95 % Max: 98 % 12/14 1901 - 06/ 0700 In: 75.1 [I.V.:75.1] Out: 300 [Urine:300] Body mass index is 28.07 kg/(m^2).; Body surface area is 1.87 meters squared. PHYSICAL EXAM Admit Weight: Weight: 76.5 kg (168 lb 10.4 oz) Current weight: Weight: 76.5 kg (168 lb 10.4 oz) GENERAL: Pleasant, talkative in no apparent distress HEENT: The oropharynx and conjunctivae are clear. Mucous membranes moist. EEOMI. NECK: Supple. Carotids are 2+ and brisk bilaterally without bruits. CHEST: Good inspiratory effort with no crackles, ronchi, or wheezes. CARDIAC: No lifts/heaves. PMI is discrete and non-displaced. Normal S1 and S2. No murmur s, rubs or gallops. ABDOMEN: Soft, non-tender, nondistended with normal, active bowel sounds. Normal abdominal pulsation without bruit. EXTREMITIES: No clubbing, cyanosis, or edema. PULSES: Right: radial 2+, femoral 2+ DP 2+, PT 2+ Left: radial 2+, femoral 2+ DP 2+, PT 2+ NEUROLOGIC: Non-focal. SKIN: No rashes or skin breakdown. MUSCULOSKELETAL: normal ambulation Signed by: Erum Gerardo MD 12/16/2013, 9:04 oLewis kim RN - 12/16/2013 2:00 AM PDTPt arrived by ambulance to room 604-2. No C/O pain. Up independently to bed. documented in this encounter Plan of Treatment Not on filedocumented as of this encounter Procedures + +--------+ + + + | Procedure Name | Priori | Date/Time | Associated Diagnosis | Comments | | | ty | | | | + +--------+ + + + | ECHO TRANSESOPHAGEAL | Routin | 12/24/2013 | S/P CABG x 4 | Results for this | | (ERIN) | e | 6:45 PM | | procedure are in the | | | | PDT | | results section. | + +--------+ + + + | PTT | Timed | 12/18/2013 | | Results for this | | | | 4:09 AM | | procedure are in the | | | | PDT | | results section. | + +--------+ + + + | CBC NO DIFFERENTIAL | Routin | 12/18/2013 | | Results for this | | | e | 4:09 AM | | procedure are in the | | | | PDT | | results section. | + +--------+ + + + | CV DIAGNOSTIC | Routin | 12/17/2013 | | Results for this | | CARDIAC CATH | e | 5:46 PM | | procedure are in the | | | | PDT | | results section. | + +--------+ + + + | CV DIAGNOSTIC | | 12/17/2013 | Chest pain, | | | CARDIAC CATH | | 4:30 PM | unspecified | | | | | PDT | | | + +--------+ + + + | PTT | Timed | 12/17/2013 | | Results for this | | | | 4:19 AM | | procedure are in the | | | | PDT | | results section. | + +--------+ + + + | PROTIME INR | Timed | 12/17/2013 | | Results for this | | | | 4:19 AM | | procedure are in the | | | | PDT | | results section. | + +--------+ + + + | B TYPE NATRIURETIC | Routin | 12/17/2013 | | Results for this | | PEPTIDE | e | 4:19 AM | | procedure are in the | | | | PDT | | results section. | + +--------+ + + + | PTT | Timed | 12/16/2013 | | Results for this | | | | 7:46 PM | | procedure are in the | | | | PDT | | results section. | + +--------+ + + + | NM NUCLEAR STRESS | Routin | 12/16/2013 | | Results for this | | TEST (PHARMACOLOGIC | e | 2:15 PM | | procedure are in the | | - VASODILATOR) | | PDT | | results section. | + +--------+ + + + | PTT | Timed | 12/16/2013 | | Results for this | | | | 2:01 PM | | procedure are in the | | | | PDT | | results section. | + +--------+ + + + | LIPID PANEL | Routin | 12/16/2013 | | Results for this | | | e | 10:13 AM | | procedure are in the | | | | PDT | | results section. | + +--------+ + + + | TROPONIN I | Routin | 12/16/2013 | | Results for this | | | e | 10:13 AM | | procedure are in the | | | | PDT | | results section. | + +--------+ + + + | HEMOGLOBIN A1C | Routin | 12/16/2013 | | Results for this | | | e | 10:13 AM | | procedure are in the | | | | PDT | | results section. | + +--------+ + + + | HEPATIC FUNCTION | Routin | 12/16/2013 | | Results for this | | PANEL | e | 10:13 AM | | procedure are in the | | | | PDT | | results section. | + +--------+ + + + | ECG 12 LEAD | STAT | 12/16/2013 | | Results for this | | | | 9:19 AM | | procedure are in the | | | | PDT | | results section. | + +--------+ + + + | ECHO COMPLETE | SHAWN | 12/16/2013 | | Results for this | | | | 9:05 AM | | procedure are in the | | | | PDT | | results section. | + +--------+ + + + | PTT | Timed | 12/16/2013 | | Results for this | | | | 6:26 AM | | procedure are in the | | | | PDT | | results section. | + +--------+ + + + | TROPONIN I | Routin | 12/16/2013 | | Results for this | | | e | 2:49 AM | | procedure are in the | | | | PDT | | results section. | + +--------+ + + + | CK-MB | STAT | 12/16/2013 | | Results for this | | | | 2:49 AM | | procedure are in the | | | | PDT | | results section. | + +--------+ + + + | CBC WITH | Routin | 12/16/2013 | | Results for this | | DIFFERENTIAL | e | 2:49 AM | | procedure are in the | | | | PDT | | results section. | + +--------+ + + + | BASIC METABOLIC | Routin | 12/16/2013 | | Results for this | | PANEL | e | 2:49 AM | | procedure are in the | | | | PDT | | results section. | + +--------+ + + + documented in this encounter Results ECHO Transesophageal (ERIN) (12/24/2013 6:45 PM PDT) + + | Specimen | + + | | + + + + --+ | Narrative | Performed At | + + --+ | | [facility] | | LAB | | Adult Intra-Op | | | ERIN Report Patient | | | Name: MARKIE PINTON: [id number] | | | Study Date: 12/24/2013DOB: 1940 | | | Gender: FemaleAge: 73 yrs | | | Location: [facility] OR # [id number] | | | HR: 52Height: | | | 65 in Weight: 164 lbBSA: | | | 1.8 [id number] For Study: cabg X 4 AUCSCA 2bHistory: HTN, Obstructive | | | sleepapnea, CAD, MIRhythm: SB INTERPRETATION SUMMARY:A pre- and | | | post-op transesophageal echocardiogram with color flow Dopplerwas | | | performed during open heart surgery. A complete two-dimensional, | | | colorand spectral Doppler transesophageal echocardiogram was done | | | before andafter open heart surgery. 1. There is again noted proximal | | | inferior and proximal inferolateralrelative hypokinesia. Due to | | | concentric remodeling the overall ejectionfraction is still | | | normal.There is moderate concentric left ventricular hypertrophy. The | | | estimatedejection fraction is 60%.2. The right ventricle is normal in | | | size and function.3. Doppler suggests tiny left to right interatrial | | | shunt.4. The left atrium is moderately dilated.5. No thrombus is | | | detected in the left atrial appendage.6. no clinically significant | | | valvular dysfunction is noted. There is onlytrace aortic | | | insufficiency.7. Mild atherosclerotic plaque(s) in the descending | | | aorta.8. imaging was also done after Coronary artery bypass (CABG). No | | | new wallmotion abnormalities are noted. Left ventricular ejection | | | fraction isstill greater than 55%. Mitral and aortic valves still | | | function well. Left Ventricle:The left ventricle is normal in size. | | | There is no thrombus. There ismoderate concentric left ventricular | | | hypertrophy. The estimated ejectionfraction is 60%. Right | | | Ventricle:The right ventricle is normal in size and function. The | | | right ventricularwall motion is normal. Atria:Doppler suggests tiny | | | left to right interatrial shunt. The left atrium ismoderately dilated. | | | No thrombus is detected in the left atrial appendage.The right atrium | | | is mild to moderately dilated. Mitral:The mitral valve appears normal | | | in structure and function. There is mildmitral regurgitation. | | | Tricuspid Valve:The tricuspid valve leaflets are thin and pliable. | | | There is mild tricuspidregurgitation. Aortic Valve:The aortic valve | | | appears normal in structure and function. Trace aorticinsufficiency. | | | Pulmonic Valve:The pulmonic valve appears normal in structure and | | | function. There is nopulmonic valvular insufficiency. Vessels:The | | | aortic root is normal size. The ascending aorta appears grosslynormal. | | | The aortic arch appears grossly normal. Mild atheroscleroticplaque(s) | | | in the descending aorta. Other:There is no pericardial effusion. | | | Surgical Procedure:Coronary artery bypass (CABG). Post-Op Function:No | | | new regional wall motion abnormalities are seen. Right | | | ventricularsystolic function appears within normal limits. | | | Interpreting Physician: Erum Gerardo MDelectronically signed | | | on 12/25/2013 12:38 PMOrdering Physician: Sj Viera, | | | M.D.Referring Physician: Sj Viera MDEchocardiographer: | | | Yasmeen Guerrero | | | | | |Mitral: | | |The mitral valve appears normal in structure and function. There is mild | | |mitral regurgitation. | | | | | |Tricuspid Valve: | | |The tricuspid valve leaflets are thin and pliable. There is mild tricuspid | | |regurgitation. | | | | | |Aortic Valve: | | |The aortic valve appears normal in structure and function. Trace aortic | | |insufficiency. | | | | | |Pulmonic Valve: | | |The pulmonic valve appears normal in structure and function. There is no | | |pulmonic valvular insufficiency. | | | | | |Vessels: | | |The aortic root is normal size. The ascending aorta appears grossly | | |normal. The aortic arch appears grossly normal. Mild atherosclerotic | | |plaque(s) in the descending aorta. | | | | | |Other: | | |There is no pericardial effusion. | | | | | |Surgical Procedure: | | |Coronary artery bypass (CABG). | | | | | |Post-Op Function: | | |No new regional wall motion abnormalities are seen. Right ventricular | | |systolic function appears within normal limits. | | | | | |Interpreting Physician: Erum Gerardo MD | | |electronically signed on 12/25/2013 12:38 PM | | |Ordering Physician: Sj Viera M.D. | | |Referring Physician: Sj Viera MD | | |Accountant Assistant: Yasmeen Guerrero | | | | | + + --+ + + | Procedure Note | + + | Mauricio, Rad Results In - 12/25/2013 12:38 PM PDT | | Adult Intra-Op | | ERIN Report | | | | Patient Name: MARKIE PINTO | | Study Date: 12/24/2013 | | : 1940 Gender: Female | | Age: 73 yrs Location: [facility] OR # [id number] | | HR: 52 | | Height: 65 in Weight: 164 lb | | BSA: 1.8 m2 | | Reason For Study: cabg X 4 AUC | | SCA 2b | | History: HTN, Obstructive sleep | | apnea, CAD, [place] | | Rhythm: SB | | | | INTERPRETATION SUMMARY: | | A pre- and post-op transesophageal echocardiogram with color flow Doppler | | was performed during open heart surgery. A complete two-dimensional, color | | and spectral Doppler transesophageal echocardiogram was done before and | | after open heart surgery. | | | | 1. There is again noted proximal inferior and proximal inferolateral | | relative hypokinesia. Due to concentric remodeling the overall ejection | | fraction is still normal. | | There is moderate concentric left ventricular hypertrophy. The estimated | | ejection fraction is 60%. | | 2. The right ventricle is normal in size and function. | | 3. Doppler suggests tiny left to right interatrial shunt. | | 4. The left atrium is moderately dilated. | | 5. No thrombus is detected in the left atrial appendage. | | 6. no clinically significant valvular dysfunction is noted. There is only | | trace aortic insufficiency. | | 7. Mild atherosclerotic plaque(s) in the descending aorta. | | 8. imaging was also done after Coronary artery bypass (CABG). No new wall | | motion abnormalities are noted. Left ventricular ejection fraction is | | still greater than 55%. Mitral and aortic valves still function well. | | | | Left Ventricle: | | The left ventricle is normal in size. There is no thrombus. There is | | moderate concentric left ventricular hypertrophy. The estimated ejection | | fraction is 60%. | | | | Right Ventricle: | | The right ventricle is normal in size and function. The right ventricular | | wall motion is normal. | | | | Atria: | | Doppler suggests tiny left to right interatrial shunt. The left atrium is | | moderately dilated. No thrombus is detected in the left atrial appendage. | | The right atrium is mild to moderately dilated. | | | | Mitral: | | The mitral valve appears normal in structure and function. There is mild | | mitral regurgitation. | | | | Tricuspid Valve: | | The tricuspid valve leaflets are thin and pliable. There is mild tricuspid | | regurgitation. | | | | Aortic Valve: | | The aortic valve appears normal in structure and function. Trace aortic | | insufficiency. | | | | Pulmonic Valve: | | The pulmonic valve appears normal in structure and function. There is no | | pulmonic valvular insufficiency. | | | | Vessels: | | The aortic root is normal size. The ascending aorta appears grossly | | normal. The aortic arch appears grossly normal. Mild atherosclerotic | | plaque(s) in the descending aorta. | | | | Other: | | There is no pericardial effusion. | | | | Surgical Procedure: | | Coronary artery bypass (CABG). | | | | Post-Op Function: | | No new regional wall motion abnormalities are seen. Right ventricular | | systolic function appears within normal limits. | | | | Interpreting Physician: Erum Gerardo MD | | electronically signed on 12/25/2013 12:38 PM | | Ordering Physician: Sj Viera M.D. | | Referring Physician: Sj Viera MD | | Accountant Assistant: Yasmeen Guerrero | + + + + | Transcriptions | + + | [place] - 12/25/2013 12:00 AM PDT | + + + +---------+ + + | Performing | Address | City/State/Zipcode | Phone Number | | Organization | | | | + +---------+ + + | [facility] | | | [phone] | + +---------+ + + | [facility] | | | [phone] | + +---------+ + + CBC no Differential (12/18/2013 4:09 AM PDT) + +---------+ + + + | Component | Value | Ref Range | Performed | Pathologist | | | | | At | Signature | + +---------+ + + + | WBC | 8.1 | 3.8 - 11.0 K/uL | [facility] | | [facility] | | | | | [facility] | | + +---------+ + + + | RBC | 3.88 | 3.70 - 5.10 | [facility] | | | | | M/uL | [facility] | | [facility] | | | | | | [facility] | | + +---------+ + + + | Hemoglobin | 12.2 | 11.3 - 15.5 | [facility] | | | | | g/dL | [facility] | | [facility] | [facility] | | | | | | [facility] | | + +---------+ + + + | Hematocrit | 36.1 | 34.0 - 46.0 % | [facility] | | | | | | [facility] | | + +---------+ + + + | MCV | 92.9 | 80.0 - 100.0 fL | [facility] | | | | | | [facility] | | + +---------+ + + + | MCH | 31.4 | 27.0 - 34.0 pg | [facility] | | | | | | [facility] | | + +---------+ + + + | MCHC | 33.8 | 32.0 - 35.5 | [facility] | | | | | g/dL | [facility] | | [facility] | | | | [facility] | | | | | | [facility] | | + +---------+ + + + | RDW-CV | 13.0 | 11.0 - 15.5 % | [facility] | | | [facility] | | | | | | [facility] | | | | | | LABORATORY | | + +---------+ + + + | Platelet | 133 (L) | 150 - 400 K/uL | [...] + | [facility] | [address] | [place] [address] | | | [facility] | | | | | LABORATORY | | | | + + + + + PTT (12/18/2013 4:09 AM PDT) + + + + + + | Component | Value | Ref Range | Performed | Pathologist | | | | | At | Signature | + + + + + + | aPTT, | 28Comment: Deep venous | 26 - 36 sec | [facility] | | | Patient | thrombosis or pulmonary | | [facility] | | | | embolism therapeutic | | HEART | | | | heparin levels of 0.3 to | | MEDICAL | | | | 0.7 Units/mL anti | | CENTER | | | | FactorXa levels usually | | LABORATORY | | | | correspond to an aPTT of | | | | | | 65 to 99 seconds. Acute | | | | | | cardiac syndrom | | | | | | therapeutic range based | | | | | | on heparin levels of 0.2 | | | | | | to 0.5 usually | | | | | | correspond to an aPTT of | | | | | | 57 to 76 | | | | | | seconds.Pediatric | | | | | | guidelines suggested | | | | | | heparin levels of 0.35 | | | | | | to 0.7 usually | | | | | | correspond to an aPTT of | | | | | | 69 to 99 seconds.NOTE: | | | | | | PTT therapeutic ranges | | | | | | and critical values have | | | | | | changed effective | | | | | | 11/13/2013. Please | | | | | | observe these new | | | | | | values. | | | | + + + + + + | aPTT, Pop | 31 | sec | [facility] | | | Mean | | | [facility] | | | [...] + + + + + | [facility] | [address] | [place] [address] | | | 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 | | | Insertion of 5 [place] catheter into right femoral artery 2. | | | Selective Coronary Angiography using 5 [place] Taz Left 3.5 and | | | protracted efforts to get the RCA. 3. Left Heart Catheterization | | | for LV pressures 4. To spare contrast, no LV gram was done. 5. | | | Dr. Lobo Hughes assisted with RCA selective angiography. The | | | right has an atypical anterior take off and her severely tortuous | | | aorta made it very difficult to engage. We did have to put in a 25 | | | cm Destination sheath and engaged the right with a 6 [place] | | | Multipurpose catheter. This was a prolonged procedure with over 60 | | | minutes due to the anatomic issues as noted. Contrast load > | | | 200 cc Premedications: Patient was premedicated with steroids, | | | pepcid and benadryl for dye allegy. DESCRIPTION OF PROCEDURE: | | | Informed consent was obtained from the patient, and a time-out was | | | performed to verify the patient's identification and planned | | | procedure.The head of the hip was marked with fluoroscopy. The | | | patient's right groin was then prepped and draped in the usual | | | sterile fashion, and anesthetized with 1% lidocaine. A 5 tristanian | | | sheath was placed into the right femoral artery without difficulty | | | on a single-wall stick. All exchanges of catheters were done over | | | a guidewire with fluoroscopic guidance. Selective angiography was | | | performed with catheters described above. The right coronary | | | could not be engaged with many different 5 [place] and then a number | | | of 6 tristanian catheters through long [address] [place] [address] Hughes | | | gave assist as above. The cathters tried included 5 [place] JR4, JR | | | 5, WNTR, AL1, AR1 and AR2 as well as 6 [place] R4, AR1, AL1. | | | LV pressures were obtained with the JR1 catheter. Manual pressure | | | was utilized to achieve successful hemostasis in the femoral | | | artery. there were no immediate complications. There were no | | | complications immediate to procedure. Blood loss was < 5 cc. | | | Medications given included versed and fentanyl per protocol | | | (detailed in seed laboratory technician notes) and Isovue contrast. FINDINGS: | | | Hemodynamics: Left ventricular pressure was with LV end-diastolic | | | pressure (LVEDP) 158/18 mm Hg. There is no significant aortic | | | valve gradient. Aortic pressure ranged between 130-170 systolic | | | during procedure. She was given IV metoprolol for hypertension | | | Left Ventriculography:Not done to spare dye load. Left main | | | coronary artery: Originates normally. Widely patent. Left | | | anterior descending coronary artery: Calcified with high-grade | | | stenoses just after the first diagonal and again at the second | | | diagonal. The distal LAD is small with diffuse mild to moderate | | | disease. There are 3 medium to large diagonals with ostial or | | | adjacent LAD high-grade disease. Circumflex coronary artery: | | | Stent is mid-occluded. There are weak right to left collaterals to | | | the OM. There is diffuse disease. Right coronary artery: | | | Is the dominant vessel. There is a 90% ostial stenosis with | | | subtotaled PL. The right is seen by left to right collateral. | | | CONCLUSIONS: 1. Multivessel CAD. I am hopeful that the right | | | or its PDA, the LAD and one or more of the diagonals may be | | | acceptable bypass targets. 2. Elevated LV EDP. 3. | | | Ischemic CM newly noted by both echo and nuclear study. LV EF | | | about 40%. Plan: Stop plavix. Consult CT surgery. I spoke | | | with Dr. Viera. May come back for CABG in a week unless we cannot | | | control her angina. Risk reduction. She reports a number of | | | atypical side effects to medication but a high risk patient like | | | this should be on aggressive cardiac chemotherapy. | | + + + + + | Procedure Note | + + | Erum Gerardo MD - 12/17/2013 5:58 PM PDT PRIMARY CONGRESSIONAL REPRESENTATIVE: | | MD JOB Tilley LD TEACHER: | | Erum Gerardo MD FACCPRE-PROCEDURE DIAGNOSIS: Acute | | coronary syndrome; new ischemic cardiomyopathyPOST-PROCEDURE DIAGNOSIS: | | Same with severe multivessel CADPROCEDURES PERFORMED: 1. Insertion of 5 [place]er | | catheter into right femoral artery2. Selective Coronary Angiography using 5 [place] | | Taz Left 3.5 and protracted efforts to get the RCA. 3. Left Heart Catheterization | | for LV pressures4. To spare contrast, no LV gram was done.5. Dr. Lobo Hughes | | assisted with RCA selective angiography. The right has an atypical anterior take off | | and her severely tortuous aorta made it very difficult to engage. We did have to put in | | a 25 cm Destination sheath and engaged the right with a 6 [place] Multipurpose | | catheter.This was a prolonged procedure with over 60 minutes due to the anatomic issues | | as noted. Contrast load > 200 ccPremedications: Patient was premedicated with steroids, | | pepcid and benadryl for dye allegy. DESCRIPTION OF PROCEDURE:Informed consent was | | obtained from the patient, and a time-out was performed to verify the patient's | | identification and planned procedure.The head of the hip was marked with fluoroscopy. | | The patient's right groin was then prepped and draped in the usual sterile fashion, and | | anesthetized with 1% lidocaine. A 5 tristanian sheath was placed into the right femoral | | artery without difficulty on a single-wall stick. All exchanges of catheters were done | | over a guidewire with fluoroscopic guidance. Selective angiography was performed with | | catheters described above. The right coronary could not be engaged with many different | | 5 [place]er and then a number of 6 tristanian catheters through long 6 [place]er sheath. | | Ellen gave assist as above. The cathters tried included 5 [place] JR4, JR 5, WNTR, AL1, | | AR1 and AR2 as well as 6 [place] R4, AR1, AL1. LV pressures were obtained with the JR1 | | catheter. Manual pressure was utilized to achieve successful hemostasis in the femoral | | artery. there were no immediate complications. There were no complications immediate | | to procedure. Blood loss was < 5 cc. Medications given included versed and fentanyl | | per protocol (detailed in seed laboratory technician notes) and Isovue contrast. FINDINGS:Hemodynamics: | | Left ventricular pressure was with LV end-diastolic pressure (LVEDP) 158/18 mm Hg. | | There is no significant aortic valve gradient. Aortic pressure ranged between 130-170 | | systolic during procedure. She was given IV metoprolol for hypertension Left | | Ventriculography:Not done to spare dye load. Left main coronary artery: Originates | | normally. Widely patent. Left anterior descending coronary artery: Calcified with | | high-grade stenoses just after the first diagonal and again at the second diagonal. The | | distal LAD is small with diffuse mild to moderate disease. There are 3 medium to large | | diagonals with ostial or adjacent LAD high-grade disease. Circumflex coronary artery: | | Stent is mid-occluded. There are weak right to left collaterals to the OM. There is | | diffuse disease. Right coronary artery: Is the dominant vessel. There is a 90% ostial | | stenosis with subtotaled PL. The right is seen by left to right collateral. | | CONCLUSIONS:1. Multivessel CAD. I am hopeful that the right or its PDA, the LAD and | | one or more of the diagonals may be acceptable bypass targets. 2. Elevated LV EDP. 3. | | Ischemic CM newly noted by both echo and nuclear study. LV EF about 40%. Plan:Stop | | plavix. Consult CT surgery. I spoke with Dr. Viera. May come back for CABG in a week | | unless we cannot control her angina. Risk reduction. She reports a number of atypical | | side effects to medication but a high risk patient like this should be on aggressive | | cardiac chemotherapy. | |Circumflex coronary artery: Stent is mid-occluded. There are weak right to left collateral s to the OM. There is diffuse disease. | | | |Right coronary artery: Is the dominant vessel. There is a 90% ostial stenosis with subto taled PL. The right is seen by left to right collateral. | | | |CONCLUSIONS: | | | |1. Multivessel CAD. I am hopeful that the right or its PDA, the LAD and one or more of th e diagonals may be acceptable bypass targets. | | | |2. Elevated LV EDP. | | | |3. Ischemic CM newly noted by both echo and nuclear study. LV EF about 40%. | | | |Plan: | |Stop plavix. | |Consult CT surgery. I spoke with Dr. Viera. | |May come back for CABG in a week unless we cannot control her angina. | |Risk reduction. She reports a number of atypical side effects to medication but a high ris k patient like this should be on aggressive cardiac chemotherapy. | + + Protime INR (12/17/2013 4:19 AM PDT) + + + + + + | Component | Value | Ref Range | Performed | Pathologist | | | | | At | Signature | + + + + + + | Prothrombin | 13.7 | 10.9 - 14.8 sec | [facility] | | | [facility] | | [facility] | | | | | | [facility] | | | | | | MEDICAL | | | | | | CENTER | | | | | | LABORATORY | | + + + + + + | INR | 1.1Comment: Usual oral | 0.9 - 1.2 | [...] + + | [facility] | [address] | [place] [address] | | | [facility] | | | | | LABORATORY | | | | + + + + + PTT (12/17/2013 4:19 AM PDT) + + + + + + | Component | Value | Ref Range | Performed | Pathologist | | | | | At | Signature | + + + + + + | aPTT, | 57 (H)Comment: Deep | 26 - 36 sec | [facility] | | | Patient | venous thrombosis or | | [facility] | | | | pulmonary embolism | | HEART | | | | therapeutic heparin | | MEDICAL | | | | levels of 0.3 to 0.7 | | CENTER | | | | Units/mL anti FactorXa | | LABORATORY | | | | levels usually | | | | | | correspond to an aPTT of | | | | | | 65 to 99 seconds. Acute | | | | | | cardiac syndrom | | | | | | therapeutic range based | | | | | | on heparin levels of 0.2 | | | | | | to 0.5 usually | | | | | | correspond to an aPTT of | | | | | | 57 to 76 | | | | | | seconds.Pediatric | | | | | | guidelines suggested | | | | | | heparin levels of 0.35 | | | | | | to 0.7 usually | | | | | | correspond to an aPTT of | | | | | | 69 to 99 seconds.NOTE: | | | | | | PTT therapeutic ranges | | | | | | and critical values have | | | | | | changed effective | | | | | | 11/13/2013. Please | | | | | | observe these new | | | | | | values. | | | | + + + + + + | aPTT, Pop | 31 | sec | [facility] | | | Mean | | | [facility] | | | [...] [address] | [place] [address] | | | [facility] | | | | | LABORATORY | | | | + + + + + B Type Natriuretic Peptide (12/17/2013 4:19 AM PDT) + +---------+ + + + | Component | Value | Ref Range | Performed | Pathologist | | | | | At | Signature | + +---------+ + + + | BNP | 312 (H) | <100 pg/mL | [facility] | | | | | [...] + | [facility] | [address] | [place] [address] | | | [facility] | | | | | LABORATORY | | | | + + + + + PTT (12/16/2013 7:46 PM PDT) + + + + + + | Component | Value | Ref Range | Performed | Pathologist | | | | | At | Signature | + + + + + + | aPTT, | 61 (H)Comment: Deep | 26 - 36 sec | [facility] | | | Patient | venous thrombosis or | | [facility] | | | | pulmonary embolism | | HEART | | | | therapeutic heparin | | MEDICAL | | | | levels of 0.3 to 0.7 | | CENTER | | | | Units/mL anti FactorXa | | LABORATORY | | | | levels usually | | | | | | correspond to an aPTT of | | | | | | 65 to 99 seconds. Acute | | | | | | cardiac syndrom | | | | | | therapeutic range based | | | | | | on heparin levels of 0.2 | | | | | | to 0.5 usually | | | | | | correspond to an aPTT of | | | | | | 57 to 76 | | | | | | seconds.Pediatric | | | | | | guidelines suggested | | | | | | heparin levels of 0.35 | | | | | | to 0.7 usually | | | | | | correspond to an aPTT of | | | | | | 69 to 99 seconds.NOTE: | | | | | | PTT therapeutic ranges | | | | | | and critical values have | | | | | | changed effective | | | | | | 11/13/2013. Please | | | | | | observe these new | | | | | | values. | | | | + + + + + + | aPTT, Pop | 31 | sec | [facility] | | | Mean | | | [facility] | | | [...] + + | [facility] | [address] | [place] [address] | | | [facility] | | | | | LABORATORY | | | | + + + + + NM Nuclear Stress Test (Vasodilator) (12/16/2013 2:15 PM PDT) + + | Specimen | + + | | + + + + + | Narrative | Performed At | + + + | PATIENT NAME: Markie Pinto : 1940 | [facility] | | AGE: 73 y.o. ENCOUNTER DATE: 12/16/2013 DOCUMENT DATE: | | | 12/16/2013 PRIMARY CARE: Doug García MD REFERRING: Rah | | | Edison Kimbrough MD MIDLEVEL PROVIDER: Sandra Armenta PA-C | | | NUCLEAR MEDICINE PHARMACOLOGIC STRESS TEST REPORT | | | PATIENT NAME: Markie Pinto : 1940 | | | AGE: 73 y.o. ENCOUNTER DATE: 12/16/2013 DOCUMENT DATE: | | | 12/16/2013 PRIMARY CARE: Doug García MD REFERRING: Rah | | | Edison Kimbrough MD [facility] PROVIDER: Electronically Signed by: Erum Ragland | | | MD Humaira 12/16/2013 15:09 NUCLEAR | | | MEDICINE PHARMACOLOGIC STRESS TEST REPORT PHYSICIAN REPORT | | | Findings: The resting ECG demonstrated normal sinus rhythm with | | | Flat ST segments in the lateral leads and poor ant R wave | | | progression. With peak stress, the ECG demonstrated borderline | | | ischemic changes with some increased flattening of the ST segments | | | in the lateral leads. No significant arrhythmias were noted. | | | The overall quality of the study is good. The left ventricular | | | cavity is noted to be normal on the rest and stress studies. The | | | computer-calculated TID score is 1.17. The computer-calculated | | | left-ventricular end-systolic volume is 65 ml. The post stress | | | SPECT images demonstrate a large (>/= 5 segments) perfusion | | | abnormality of moderate intensity in the basal, mid and apical | | | segments of the lateral wall(s) of the left ventricle that does not | | | correct with attentuation correction. This extends into the | | | anteolateral base and into the inferolateral base. The post rest | | | SPECT images demonstrate improved perfusion in the lateral wall | | | although it does not entirely normalize. Gated SPECT imaging | | | demonstrates hypokinesis of the septal and distal lateral wall(s). | | | The computer-calculated left ventricular ejection fraction is | | | mildly reduced with an LV EF of 42%. Impression: ECG | | | stress test results: 1. Normal baseline 12 lead electrocardiogram. | | | 2. No significant arrhythmias noted throughout monitoring. 3. The ECG | | | findings are nondiagnostic. Myocardial perfusion results: 1. | | | Myocardial perfusion imaging is abnormal. 2. There is a large | | | area of moderately reduced tracer uptake that is most consistent | | | with ischemia in all lateral wall segments as well as the | | | anterolateral base and the inferolateral base. There is mild | | | persistence of the lateral wall defect proximally, so some degree of | | | infarction or dense ischemia is present. The SDS score is 9 which | | | is consistent with a high risk study. 3. Overall left | | | ventricular systolic function is abnormal with regional wall motion | | | abnormalities and the LVEF is 42%. 4. By imaging criteria, this is | | | a high risk test result (see table below)*. Comparison 1. There | | | is no prior study available for comparison. | | | | | | Table - Noninvasive Risk Stratification RISK | | | ANNUAL MORTALITY RATE High Greater than | | | 3% Intermediate 1% to 3% Low Less than | | | 1% Electronically Signed by: Erum Gerardo MD | | | 12/16/2013, 15:09 MIDLEVEL PROVIDER REPORT Procedure: | | | Single radiopharmaceutical SPECT (Single Photon Emission Computed | | | Tomography) imaging with pharmacologic stress and gated SPECT | | | imaging Indication: Risk stratification post-myocardial infarction | | | ([place]) Clinical History: 73 y.o. year old female with recent [place] | | | in [place] but refuses HC, re admitted with positive enzymes and | | | CP again refuses HC Cardiac risk factors include: Hypertension, | | | Dyslipidemia and Diabetes Other cardiovascular disease includes: | | | None Previous cardiac procedures include: None Current | | | presentation/symptomatology: Asymptomatic Current medications: | | | Beta candice-yes; Central acting calcium channel candice-no; | | | Nitrate-yes; Dipyridamole-no; Theophylline-no. ECG interpretable | | | for evaluation of ischemia: Yes Description of Procedure: | | | Stress Test: Pharmacologic stress testing was performed using 43 mg | | | IV dipyridamole without additional low-level exercise. The | | | heart rate was 63 beats per minute at baseline and 79 beats per | | | minute at peak stress. The blood pressure was 156/103 mm Hg at | | | baseline and 135/90 mm Hg at peak stress, which represents a | | | hypotensive response to pharmacologic stress. The patient | | | developed cp symptoms during stress. The test was stopped because | | | of completion of the stress protocol. Reversal Agent: yes. If | | | yes, Aminophylline 125 mg given at 8 minutes. Findings The | | | resting ECG demonstrated normal sinus rhythm with Flat ST segments in | | | the lateral leads and poor ant R wave progression. With peak | | | stress, the ECG demonstrated borderline ischemic changes with some | | | increased flattening of the ST segments in the lateral leads. No | | | significant arrhythmias were noted. Myocardial perfusion | | | imaging: Single isotope gated SPECT acquisition was performed at | | | rest following the intravenous injection of 7.7 mCi of Tc-99m | | | sestamibi. Single isotope ated SPECT acquisition was performed after | | | the patient was intravenously administered 27.3 mCi of Tc-99m | | | sestamibi at peak stress. | | + + + + + | Procedure Note | + + | Erum Gerardo MD - 12/16/2013 3:15 PM PDT Formatting of this note might be | | different from the original. PATIENT NAME: Markie Pinto : 1940 AGE: | | 73 y.o.ENCOUNTER DATE: 12/16/2013 DOCUMENT DATE: 12/16/2013PRIMARY CARE: Doug García MD | | REFERRING: Edison Monreal [facility] PROVIDER: Sandra Armenta PA-C | | NUCLEAR MEDICINE PHARMACOLOGIC STRESS TEST REPORT PATIENT NAME: Markie Howe | | Dustin : 1940 AGE: 73 y.o.ENCOUNTER DATE: 12/16/2013 DOCUMENT DATE: | | 12/16/2013PRIMARY CARE: Doug García MD REFERRING: Edison Monreal [facility] PROVIDER: | | Electronically Signed by:Erum Gerardo MD12/16/2013 15:09 NUCLEAR | | MEDICINE PHARMACOLOGIC STRESS TEST REPORTPHYSICIAN REPORTFindings: The resting ECG | | demonstrated normal sinus rhythm with Flat ST segments in the lateral leads and poor ant | | R wave progression. With peak stress, the ECG demonstrated borderline ischemic changes | | with some increased flattening of the ST segments in the lateral leads. No significant | | arrhythmias were noted. The overall quality of the study is good.The left ventricular | | cavity is noted to be normal on the rest and stress studies. The computer-calculated | | TID score is 1.17. The computer-calculated left-ventricular end-systolic volume is 65 | | ml.The post stress SPECT images demonstrate a large (>/= 5 segments) perfusion | | abnormality of moderate intensity in the basal, mid and apical segments of the lateral | | wall(s) of the left ventricle that does not correct with attentuation correction. This | | extends into the anteolateral base and into the inferolateral base. The post rest SPECT | | images demonstrate improved perfusion in the lateral wall although it does not entirely | | normalize.Gated SPECT imaging demonstrates hypokinesis of the septal and distal lateral | | wall(s). The computer-calculated left ventricular ejection fraction is mildly reduced | | with an LV EF of 42%.Impression:ECG stress test results:1. Normal baseline 12 lead | | electrocardiogram.2. No significant arrhythmias noted throughout monitoring.3. The ECG | | findings are nondiagnostic.Myocardial perfusion results:1. Myocardial perfusion imaging | | is abnormal.2. There is a large area of moderately reduced tracer uptake that is most | | consistent with ischemia in all lateral wall segments as well as the anterolateral base | | and the inferolateral base. There is mild persistence of the lateral wall defect | | proximally, so some degree of infarction or dense ischemia is present. The SDS score is | | 9 which is consistent with a high risk study. 3. Overall left ventricular systolic | | function is abnormal with regional wall motion abnormalities and the LVEF is 42%.4. By | | imaging criteria, this is a high risk test result (see table below)*.Comparison1. There | | is no prior study available for | | comparison. Table - | | Noninvasive Risk StratificationRISK ANNUAL MORTALITY RATEHigh | | Greater than 3%Intermediate 1% to 3%Low Less than | | 1%Electronically Signed by: Erum Gerardo MD 12/16/2013, 15:09MIDLEVEL PROVIDER | | REPORTProcedure: Single radiopharmaceutical SPECT (Single Photon Emission Computed | | Tomography) imaging with pharmacologic stress and gated SPECT imagingIndication: Risk | | stratification post-myocardial infarction ([place]) Clinical History:73 y.o. year old female | | with recent [place] in [place] but refuses HC, re admitted with positive enzymes and CP | | again refuses HC Cardiac risk factors include: Hypertension, Dyslipidemia and | | DiabetesOther cardiovascular disease includes: NonePrevious cardiac procedures include: | | NoneCurrent presentation/symptomatology: AsymptomaticCurrent medications: Beta | | candice-yes; Central acting calcium channel candice-no; Nitrate-yes; Dipyridamole-no; | | Theophylline-no.ECG interpretable for evaluation of ischemia: YesDescription of | | Procedure:Stress Test: Pharmacologic stress testing was performed using 43 mg IV | | dipyridamole without additional low-level exercise. The heart rate was 63 beats per | | minute at baseline and 79 beats per minute at peak stress. The blood pressure was | | 156/103 mm Hg at baseline and 135/90 mm Hg at peak stress, which represents a | | hypotensive response to pharmacologic stress. The patient developed cp symptoms during | | stress. The test was stopped because of completion of the stress protocol.Reversal | | Agent: yes. If yes, Aminophylline 125 mg given at 8 minutes.FindingsThe resting ECG | | demonstrated normal sinus rhythm with Flat ST segments in the lateral leads and poor ant | | R wave progression. With peak stress, the ECG demonstrated borderline ischemic changes | | with some increased flattening of the ST segments in the lateral leads. No significant | | arrhythmias were noted. Myocardial perfusion imaging: Single isotope gated SPECT | | acquisition was performed at rest following the intravenous injection of 7.7 mCi of | | Tc-99m sestamibi. Single isotope ated SPECT acquisition was performed after the patient | | was intravenously administered 27.3 mCi of Tc-99m sestamibi at peak stress. | |1. Myocardial perfusion imaging is abnormal. | |2. There is a large area of moderately reduced tracer uptake that is most consistent with ischemia in all lateral wall segments as well as the anterolateral base and the inferolatera l base. There is mild persistence | |of the lateral wall defect proximally, so some degree of infarction or dense ischemia is pr esent. The SDS score is 9 which is consistent with a high risk study. | |3. Overall left ventricular systolic function is abnormal with regional wall motion abnorm alities and the LVEF is 42%. | |4. By imaging criteria, this is a high risk test result (see table below)*. | | | |Comparison | |1. There is no prior study available for comparison. | | | |Table - Noninvasive Risk Stratification | | | |RISK ANNUAL MORTALITY RATE | |High Greater than 3% | |Intermediate 1% to 3% | |Low Less than 1% | | | | | |Electronically Signed by: Erum Gerardo MD | | 12/16/2013, 15:09 | | | | | |[facility] REPORT | | | |Procedure: Single radiopharmaceutical SPECT (Single Photon Emission Computed Tomography) im aging with pharmacologic stress and gated SPECT imaging | | | |Indication: Risk stratification post-myocardial infarction (WI) | | | |Clinical History: | |73 y.o. year old female with recent WI in [place] but refuses HC, re admitted with posit dalton enzymes and CP again refuses HC | | | |Cardiac risk factors include: Hypertension, Dyslipidemia and Diabetes | | | |Other cardiovascular disease includes: None | | | |Previous cardiac procedures include: None | | | |Current presentation/symptomatology: Asymptomatic | | | |Current medications: Beta candice-yes; Central acting calcium channel candice-no; Nitrate- yes; Dipyridamole-no; Theophylline-no. | | | |ECG interpretable for evaluation of ischemia: Yes | | | |Description of Procedure: | | | |Stress Test: Pharmacologic stress testing was performed using 43 mg IV dipyridamole witho ut additional low-level exercise. The heart rate was 63 beats per minute at baseline and 7 9 beats per minute at peak stress. | |The blood pressure was 156/103 mm Hg at baseline and 135/90 mm Hg at peak stress, which rep resents a hypotensive response to pharmacologic stress. The patient developed cp symptoms d uring stress. The test was stopped | |because of completion of the stress protocol. | | | |Reversal Agent: yes. If yes, Aminophylline 125 mg given at 8 minutes. | | | |Findings | |The resting ECG demonstrated normal sinus rhythm with Flat ST segments in the lateral leads and poor ant R wave progression. With peak stress, the ECG demonstrated borderline ischemi c changes with some increased | |flattening of the ST segments in the lateral leads. No significant arrhythmias were noted. | | | |Myocardial perfusion imaging: Single isotope gated SPECT acquisition was performed at rest following the intravenous injection of 7.7 mCi of Tc-99m sestamibi. Single isotope ated SPE CT acquisition was performed after the | |patient was intravenously administered 27.3 mCi of Tc-99m sestamibi at peak stress. | + + + +---------+ + + | Performing | Address | City/State/Zipcode | Phone Number | | Organization | | | | + +---------+ + + | [facility] | | | | + +---------+ + + PTT (12/16/2013 2:01 PM PDT) + + + + + + | Component | Value | Ref Range | Performed | Pathologist | | | | | At | Signature | + + + + + + | aPTT, | 60 (H)Comment: Deep | 26 - 36 sec | [facility] | | | Patient | venous thrombosis or | | [facility] | | | | pulmonary embolism | | HEART | | | | therapeutic heparin | | MEDICAL | | | | levels of 0.3 to 0.7 | | CENTER | | | | Units/mL anti FactorXa | | LABORATORY | | | | levels usually | | | | | | correspond to an aPTT of | | | | | | 65 to 99 seconds. Acute | | | | | | cardiac syndrom | | | | | | therapeutic range based | | | | | | on heparin levels of 0.2 | | | | | | to 0.5 usually | | | | | | correspond to an aPTT of | | | | | | 57 to 76 | | | | | | seconds.Pediatric | | | | | | guidelines suggested | | | | | | heparin levels of 0.35 | | | | | | to 0.7 usually | | | | | | correspond to an aPTT of | | | | | | 69 to 99 seconds.NOTE: | | | | | | PTT therapeutic ranges | | | | | | and critical values have | | | | | | changed effective | | | | | | 11/13/2013. Please | | | | | | observe these new | | | | | | values. | | | | + + + + + + | aPTT, Pop | 31 | sec | [facility] | | | Mean | | | [facility] | | | [...] + + | [facility] | [address] | [place] [address] | | | [facility] | | | | | LABORATORY | | | | + + + + + Hepatic Function Panel (12/16/2013 10:13 AM PDT) + +-------+ + + + | Component | Value | Ref Range | Performed | Pathologist | | | | | At | Signature | + +-------+ + + + | Total | 7.2 | 6.1 - 7.8 g/dL | [facility] | | | Protein | | | [facility] | | | | | | HEART | | | | | | MEDICAL | | | | | | CENTER | | | | | | LABORATORY | | + +-------+ + + + | Albumin | 4.1 | 3.3 - 4.8 g/dL | [facility] | | | | | | [facility] | | | | | | HEART | | | | | | MEDICAL | | | | | | CENTER | | | | | | LABORATORY | | + +-------+ + + + | Bilirubin | 0.5 | 0.2 - 1.1 mg/dL | [facility] | | | Total | | | [facility] | | | | | | HEART | | | | | | MEDICAL | | | | | | CENTER | | | | | | LABORATORY | | + +-------+ + + + | Bilirubin | 0.1 | 0.0 - 0.4 mg/dL | [facility] | | | Direct | | | [facility] | | | | | | HEART | | | | | | MEDICAL | | | | | | CENTER | | | | | | LABORATORY | | + +-------+ + + + | Alkaline | 64 | 35 - 115 U/L | [facility] | | | Phosphatase | | | [facility] | | | | | | HEART | | | | | | MEDICAL | | | | | | CENTER | | | | | | LABORATORY | | + +-------+ + + + | AST | 42 | 10 - 45 U/L | [facility] | | | | | | [facility] | | | | | | HEART | | | | | | MEDICAL | | | | | | CENTER | | | | | | LABORATORY | | + +-------+ + + + | ALT | 20 | 10 - 65 U/L | [facility] | | | | [...] + + | [facility] | [address] | [place] [address] | | | [facility] | | | | | LABORATORY | | | | + + + + + Hemoglobin A1C (12/16/2013 10:13 AM PDT) + + + + + + | Component | Value | Ref Range | Performed | Pathologist | | | | | At | Signature | + + + + + + | Hemoglobin | 5.5Comment: A1c values | 4.0 - 5.6 % | [facility] | | | A1c | of 5.7-6.4% indicate an | | [facility] | | | | increased risk for | | HEART | | | | diabetes mellitus. A1c | | MEDICAL | | | | values of greater than | | CENTER | | | | or equal to 6.5% are | | LABORATORY | | | | diagnostic of diabetes | | | | | | mellitus.The ADA | | | | | | recommends A1c values of | | | | | | less than 7% as the | | | | | | goal for diabetic | | | | | | therapy.The boronate | | | | | | affinity Hb A1c testing | | | | | | method is certified | | | | | | traceable to the | | | | | | Diabetes Control and | | | | | | Complications Trial | | | | | | (DCCT) reference method, | | | | | | and provides accurate | | | | | | analytical results in | | | | | | the presence of nearly | | | | | | all hemoglobin variants. | | | | | | Hb F higher than 15% | | | | | | of total Hb may yield | | | | | | falsely low | | | | | | results.Conditions that | | | | | | shorten red cell | | | | | | survival, such as the | | | | | | presence of unstable | | | | | | hemoglobins (e.g. Hb SS, | | | | | | Hb CC, and Hb SC), or | | | | | | other causes of | | | | | | hemolytic anemia may | | | | | | yield falsely low | | | | | | results. Patients that | | | | | | are post-splenectomy or | | | | | | that have conditions | | | | | | such as polycythemia or | | | | | | iron deficiency anemia | | | | | | may yield falsely high | | | | | | results.NOTE NEW | | | | | | REFERENCE RANGE | | | | + + + + + + | Estimated | 111Comment: The ADA | <154 mg/dL | [facility] | | | Average | recommends an Estimated | | [facility] | | | Glucose | Average Glucose (eAG) | | HEART | | | | result of LT 154 mg/dL | | MEDICAL | | | | to be the goal of | | CENTER | | | | diabetic therapy. | | LABORATORY | | | | Estimated Average | | | | | | Glucose is calculated | | | | | | from the Hgb A1c by use | | | | | | of the ADA recommended | | | | | | formula.Performed at | | | | | | [facility] | | | | | | [facility], | | | | | | [address], | | | | | | [place] [address] | | | | + + + + + + + + | Specimen | + + | Blood specimen | | (specimen) | + + + + + + + | Performing | Address | City/State/Zipcode | Phone Number | | Organization | | | | + + + + + | [facility] | [address] | [place] [address] | | | [facility] | | | | | LABORATORY | | | | + + + + + Lipid Panel (12/16/2013 10:13 AM PDT) + + + + + + | Component | Value | Ref Range | Performed | Pathologist | | | | | At | Signature | + + + + + + | Cholesterol | 115Comment: <200: | <200 mg/dL | [facility] | | | | Desirable | | [facility] | | | | | | HEART | | | | | | MEDICAL | | | | | | CENTER | | | | | | LABORATORY | | + + + + + + | Triglycerid | 70Comment: <150: | <150 mg/dL | [facility] | | | es | Normal | | [facility] | | | | | | HEART | | | | | | MEDICAL | | | | | | CENTER | | | | | | LABORATORY | | + + + + + + | HDL | 53Comment: <40: | 40 - 59 mg/dL | [facility] | | | | Low40 to 59: | | [facility] | | | | Normal>59: | | HEART | | | | HighHDL Cholesterol | | MEDICAL | | | | greater than or equal to | | CENTER | | | | 60 mg/dL is considered | | LABORATORY | | | | a "negative" risk | | | | | | factor, serving to | | | | | | remove one risk factor | | | | | | from the total count. | | | | + + + + + + | LDL, | 48Comment: To calculate | <100 mg/dL | [facility] | | | Calculated | 10 year cardiac risk for | | [facility] | | | | this patient, go to | | HEART | | | | [email or web address]. | | MEDICAL | | | | Click on Testing | | CENTER | | | | Information, then on | | LABORATORY | | | | Lipid Calculator. | | | | + + + + + + + + | Specimen | + + | Blood specimen | | (specimen) | + + + + + + + | Performing | Address | City/State/Zipcode | Phone Number | | Organization | | | | + + + + + | [facility] | [address] | [place] [address] | | | [facility] | | | | | LABORATORY | | | | + + + + + Troponin I (12/16/2013 10:13 AM PDT) + + + + + + | Component | Value | Ref Range | Performed | Pathologist | | | | | At | Signature | + + + + + + | Troponin I | 11.91 () | 0.00 - 0.29 | [facility] | | | | Comment: | ng/mL | [facility] | | | | Verified by readback. | | HEART | | | | DemetriusN Doug | | MEDICAL | | | | [...] + + | [facility] | [address] | [place] [address] | | | [facility] | | | | | LABORATORY | | | | + + + + + ECHO Complete (12/16/2013 9:05 AM PDT) + + | Specimen | + + | | + + + + -+ | Narrative | Performed At | + + -+ | | [facility] | | | LAB | | Adult Echo | | | Report Name: | | | MARKIE PINTO Study Date: 12/16/2013MRN: [id number] | | | Patient Location: [facility] CRDTL 604DOB: 1940 | | | Age: 73 yrs Gender: | | | FemaleHeight: 65 in Weight: 168 lb | | | BSA: 1.8 u1Lrivzi For Study: Chest Pain AUC 1 | | | INTERPRETATION SUMMARY:A two-dimensional transthoracic echocardiogram | | | with M-mode, pulsed waveand color Doppler was performed.The rhythm is | | | sinus at 70 BPM. This study is compared with the prior donein November of | | | 2011. 1. Moderate concentric left ventricular hypertrophy with | | | posterior wallhypokinesia. LV EF 50-55%. The inferolateral/posterior | | | hypokinesia appearsto be new.2. Normal right ventricular size and | | | function.3. Mild mitral valve regurgitation. Posterior annular | | | calcification noted. 4. Aortic valve sclerosis without stenosis. Left | | | Ventricle:The left ventricle is normal in size. There is concentric | | | hypertrophy ofthe left ventricular irwin. Left ventricular systolic | | | function is lownormal. The estimated ejection fraction is 55%. There | | | is posterior wallhypokinesis. Right Ventricle:The right ventricle is | | | grossly normal size. Atria:The Left atrial index is 57 ml/m2. (mild = | | | 29-33; mod = 34-39; severe>40). Biatrial enlargement is noted. Mitral | | | Valve:There is moderate to severe posterior mitral annular | | | calcification. Thereis mild mitral regurgitation. Tricuspid Valve:The | | | tricuspid valve is grossly normal in appearance. No | | | tricuspidregurgitation is seen. Aortic Valve:The aortic valve leaflets | | | appear mildly calcified. The aortic valve openswell. No | | | hemodynamically significant valvular aortic stenosis. No | | | aorticinsufficiency is present. Pulmonic Valve:The pulmonic valve is | | | grossly normal. Pericardium/Pleural:The pericardium appears normal. | | | MMode/2D Measurements & CalculationsIVSd: 1.4 cm | | | LVIDd: 4.3 cm LVIDs: 2.8 cm | | | LVPWd: 1.2 cmFS: 33.6 % | | | Ao root diam: 2.5 cm | | | ACS: 1.5 cm LA | | | dimension: 4.4 cm Doppler Measurements & CalculationsMV E max vane: | | | 78.3 cm/sec Ao V2 max: 172.4 cm/secMV A max vane: | | | 109.9 cm/sec Ao max P.9 mmHgMV E/A: 0.71LV V1 | | | max P.6 mmHg TV V2 max: 42.5 cm/secLV V1 | | | max: 63.6 cm/sec TV max P.72 mmHgPA V2 | | | max: 62.7 cm/secPA max P.6 mmHg Interpreting Physician: Erum Ragland | | | MD Humairaelectronically signed on 12/16/2013 10:19 AMOrdering | | | Physician: EDISON MONREALUnc Health Nashocardiographer: Kris Campbell [id number]: | | | | | |Aortic Valve: | | |The aortic valve leaflets appear mildly calcified. The aortic valve opens | | |well. No hemodynamically significant valvular aortic stenosis. No aortic | | |insufficiency is present. | | | | | |Pulmonic Valve: | | |The pulmonic valve is grossly normal. | | | | | |Pericardium/Pleural: | | |The pericardium appears normal. | | | | | |MMode/2D Measurements & Calculations | | |IVSd: 1.4 cm LVIDd: 4.3 cm | | | LVIDs: 2.8 cm | | | LVPWd: 1.2 cm | | |FS: 33.6 % Ao root diam: 2.5 cm | | | ACS: 1.5 cm | | | LA dimension: 4.4 cm | | | | | |Doppler Measurements & Calculations | | |MV E max vane: 78.3 cm/sec Ao V2 max: 172.4 cm/sec | | |MV A max vane: 109.9 cm/sec Ao max P.9 mmHg | | |MV E/A: 0.71 | | |LV V1 max P.6 mmHg TV V2 max: 42.5 cm/sec | | |LV V1 max: 63.6 cm/sec TV max P.72 mmHg | | |PA V2 max: 62.7 cm/sec | | |PA max P.6 mmHg | | | | | |Interpreting Physician: Erum Gerardo MD | | |electronically signed on 12/16/2013 10:19 AM | | |Ordering Physician: EDISON MONREAL | | |Accountant Assistant: Kris Mcdonough | | |[id number]: | | | | | + + -+ + + | Procedure Note | + + | Carlos Martínez Results In - 12/16/2013 10:20 AM PDT | | Adult Echo | | Report | | | | Name: MARKIE PINTO Study Date: 12/16/2013 | | Patient Location: [facility] | | : 1940 Age: 73 yrs Gender: Female | | Height: 65 in Weight: 168 lb BSA: 1.8 m2 | | Reason For Study: Chest Pain AUC 1 | | | | INTERPRETATION SUMMARY: | | A two-dimensional transthoracic echocardiogram with M-mode, pulsed wave | | and color Doppler was performed. | | The rhythm is sinus at 70 BPM. This study is compared with the prior done | | in November of 2011. | | | | 1. Moderate concentric left ventricular hypertrophy with posterior wall | | hypokinesia. LV EF 50-55%. The inferolateral/posterior hypokinesia appears | | to be new. | | 2. Normal right ventricular size and function. | | 3. Mild mitral valve regurgitation. Posterior annular calcification noted. | | | | 4. Aortic valve sclerosis without stenosis. | | | | Left Ventricle: | | The left ventricle is normal in size. There is concentric hypertrophy of | | the left ventricular irwin. Left ventricular systolic function is low | | normal. The estimated ejection fraction is 55%. There is posterior wall | | hypokinesis. | | | | Right Ventricle: | | The right ventricle is grossly normal size. | | | | Atria: | | The Left atrial index is 57 ml/m2. (mild = 29-33; mod = 34-39; severe | | >40). Biatrial enlargement is noted. | | | | Mitral Valve: | | There is moderate to severe posterior mitral annular calcification. There | | is mild mitral regurgitation. | | | | Tricuspid Valve: | | The tricuspid valve is grossly normal in appearance. No tricuspid | | regurgitation is seen. | | | | Aortic Valve: | | The aortic valve leaflets appear mildly calcified. The aortic valve opens | | well. No hemodynamically significant valvular aortic stenosis. No aortic | | insufficiency is present. | | | | Pulmonic Valve: | | The pulmonic valve is grossly normal. | | | | Pericardium/Pleural: | | The pericardium appears normal. | | | | MMode/2D Measurements & Calculations | | IVSd: 1.4 cm LVIDd: 4.3 cm | | LVIDs: 2.8 cm | | LVPWd: 1.2 cm | | FS: 33.6 % Ao root diam: 2.5 cm | | ACS: 1.5 cm | | LA dimension: 4.4 cm | | | | Doppler Measurements & Calculations | | MV E max vane: 78.3 cm/sec Ao V2 max: 172.4 cm/sec | | MV A max vane: 109.9 cm/sec Ao max P.9 mmHg | | MV E/A: 0.71 | | LV V1 max P.6 mmHg TV V2 max: 42.5 cm/sec | | LV V1 max: 63.6 cm/sec TV max P.72 mmHg | | PA V2 max: 62.7 cm/sec | | PA max P.6 mmHg | | | | Interpreting Physician: Erum Gerardo MD | | electronically signed on 12/16/2013 10:19 AM | | Ordering Physician: EDISON MONREAL | | Accountant Assistant: Kris Mcdonough | | [id number]: | + + + + | Transcriptions | + + | [place] - 12/16/2013 12:00 AM PDT | + + + +---------+ + + | Performing | Address | City/State/Zipcode | Phone Number | | Organization | | | | + +---------+ + + | [facility] | | | [phone] | + +---------+ + + | [facility] | | | [phone] | + +---------+ + + PTT (12/16/2013 6:26 AM PDT) + + + + + + | Component | Value | Ref Range | Performed | Pathologist | | | | | At | Signature | + + + + + + | aPTT, | 106 (H)Comment: Deep | 26 - 36 sec | [facility] | | | Patient | venous thrombosis or | | [facility] | | | | pulmonary embolism | | HEART | | | | therapeutic heparin | | MEDICAL | | | | levels of 0.3 to 0.7 | | CENTER | | | | Units/mL anti FactorXa | | LABORATORY | | | | levels usually | | | | | | correspond to an aPTT of | | | | | | 65 to 99 seconds. Acute | | | | | | cardiac syndrom | | | | | | therapeutic range based | | | | | | on heparin levels of 0.2 | | | | | | to 0.5 usually | | | | | | correspond to an aPTT of | | | | | | 57 to 76 | | | | | | seconds.Pediatric | | | | | | guidelines suggested | | | | | | heparin levels of 0.35 | | | | | | to 0.7 usually | | | | | | correspond to an aPTT of | | | | | | 69 to 99 seconds.NOTE: | | | | | | PTT therapeutic ranges | | | | | | and critical values have | | | | | | changed effective | | | | | | 11/13/2013. Please | | | | | | observe these new | | | | | | values. | | | | + + + + + + | aPTT, Pop | 31 | sec | [facility] | | | Mean | | | [facility] | | | [...] + + | [facility] | [address] | [place] [address] | | | [facility] | | | | | LABORATORY | | | | + + + + + Basic Metabolic Panel (12/16/2013 2:49 AM PDT) + + + + + + | Component | Value | Ref Range | Performed | Pathologist | | | | | At | Signature | + + + + + + | Na | 136 | 135 - 145 | [facility] | | | | | mmol/L | [facility] | | | | | | HEART | | | | | | MEDICAL | | | | | | CENTER | | | | | | LABORATORY | | + + + + + + | K | 3.8 | 3.5 - 5.0 | [facility] | | | | | mmol/L | [facility] | | | | | | HEART | | | | | | MEDICAL | | | | | | CENTER | | | | | | LABORATORY | | + + + + + + | Cl | 102 | 99 - 109 mmol/L | [facility] | | | | | | [facility] | | | | | | HEART | | | | | | MEDICAL | | | | | | CENTER | | | | | | LABORATORY | | + + + + + + | CO2 | 27 | 21 - 28 mmol/L | [facility] | | | | | | [facility] | | | | | | HEART | | | | | | MEDICAL | | | | | | CENTER | | | | | | LABORATORY | | + + + + + + | Glucose | 119 (H)Comment: Bhutanese | 65 - 99 mg/dL | [facility] | | | | Diabetes Association | [...] + + + + | BUN | 18 | 8 - 25 mg/dL | [facility] [...] + + + + | Calcium | 9.4 | 8.5 - 10.2 | [facility] | | | | | mg/dL | [facility] | | | | | | HEART | | | | | | MEDICAL | | | | | | CENTER | | | | | | LABORATORY | | + + + + + + | Anion Gap | 7 | 5 - 16 mmol/L | [facility] [...] [facility] | [address] | [place] [address] | | | [facility] | | | | | LABORATORY | | | | + + + + + CK-MB (12/16/2013 2:49 AM PDT) + + + + + + | Component | Value | Ref Range | Performed | Pathologist | | | | | At | Signature | + + + + + + | CK TOTAL | 263 (H) | 30 - 240 U/L | [facility] | | | | | | [facility] | | | | | | HEART | | | | | | MEDICAL | | | | | | CENTER | | | | | | LABORATORY | | + + + + + + | CK-MB | 26.4 (H) | <7.5 ng/mL | [facility] | | | | | | [facility] | | | | | | HEART | | | | | | MEDICAL | | | | | | CENTER | | | | | | LABORATORY | | + + + + + + | CK Index | 10.0 (H) | <3.1 % | [facility] | | | | [...] + | [facility] | [address] | [place] [address] | | | [facility] | | | | | LABORATORY | | | | + + + + + Troponin I (12/16/2013 2:49 AM PDT) + + + + + + | Component | Value | Ref Range | Performed | Pathologist | | | | | At | Signature | + + + + + + | Troponin I | 4.57 () | 0.00 - 0.29 | [facility] | | | | Comment: | ng/mL | [facility] | | | | Verified by readback. | | HEART | | | | [address] | | MEDICAL | | | | [...] + | [facility] | [address] | [place] [address] | | | [facility] | | | | | LABORATORY | | | | + + + + + CBC with Differential (12/16/2013 2:49 AM PDT) + + + + + + | Component | Value | Ref Range | Performed | Pathologist | | | | | At | Signature | + + + + + + | WBC | 6.6 | 3.8 - 11.0 K/uL | [facility] | | | | | | [facility] | | | | | | HEART | | | | | | MEDICAL | | | | | | CENTER | | | | | | LABORATORY | | + + + + + + | RBC | 3.74 | 3.70 - 5.10 | [facility] | | | | | M/uL | [facility] | | | | | | HEART | | | | | | MEDICAL | | | | | | CENTER | | | | | | LABORATORY | | + + + + + + | Hemoglobin | 11.6 | 11.3 - 15.5 | [facility] | | | | | g/dL | [facility] | | | | | | HEART | | | | | | MEDICAL | | | | | | CENTER | | | | | | LABORATORY | | + + + + + + | Hematocrit | 35.1 | 34.0 - 46.0 % | [facility] | | | | | | [facility] | | | | | | HEART | | | | | | MEDICAL | | | | | | CENTER | | | | | | LABORATORY | | + + + + + + | MCV | 93.9 | 80.0 - 100.0 fL | [facility] | | | | | | [facility] | | | | | | HEART | | | | | | MEDICAL | | | | | | CENTER | | | | | | LABORATORY | | + + + + + + | MCH | 31.1 | 27.0 - 34.0 pg | [facility] [...] + + + + | Platelet | 142 (L) | 150 - 400 K/uL | [...] | | l Type | | | [facility] | | | | | | HEART | | | | | | MEDICAL | | | | | | CENTER | | | | | | LABORATORY | | + + + + + + | % | 70.6 | 40.0 - 75.0 % | [facility] | | | Neutrophils | | | [facility] | | | | | | HEART | | | | | | MEDICAL | | | | | | CENTER | | | | | | LABORATORY | | + + + + + + | % | 19.4 | 15.0 - 48.0 % | [facility] | | | Lymphocytes | | | [facility] | | | | | | HEART | | | | | | MEDICAL | | | | | | CENTER | | | | | | LABORATORY | | + + + + + + | % Monocytes | 8.0 | 0.0 - 12.0 % | [facility] | | | | | | [facility] | | | | | | HEART | | | | | | MEDICAL | | | | | | CENTER | | | | | | LABORATORY | | + + + + + + | % | 1.5 | 0.0 - 7.0 % | [facility] | | | Eosinophils | | | [facility] | | | | | | HEART | | | | | | MEDICAL | | | | | | CENTER | | | | | | LABORATORY | | + + + + + + | % Basophils | 0.5 | 0.0 - 2.0 % | [facility] | | | [facility] | | | | | | LABORATORY | | + + + + + + | Absolute | 4.60 | 1.90 - 7.40 | [facility] | | | Neutrophils | | K/uL | [facility] | | | | | [facility] | | | | | | [facility] | | | | | | LABORATORY | | + + + + + + | Absolute | 1.30 | 1.00 - 3.90 | [facility] | | | Lymphocytes | | K/uL | [facility] | | | | | [facility] | | | | | | [facility] | | | | | | LABORATORY | | + + + + + + | Absolute | 0.50 | 0.00 - 0.80 | [facility] | | | Monocytes | | K/uL | [facility] | | | | | [facility] | | | | | | [facility]ENTER | | | | | | LABORATORY | | + + + + + + | Absolute | 0.10 | 0.00 - 0.50 | [facility] | | | Eosinophils | | K/uL | [facility] | [facility] | | | | | | [facility] | | | | | | [facility]ENTER | | | | | | LABORATORY | | + + + + + + | Absolute | 0.00 | 0.00 - 0.10 | [facility] | | | Basophils | | K/uL | [facility] | | | | | [...] + + | MONIKA MELCHOR | [address] | [place] [address] | | | [facility] | | | | | LABORATORY | | | | + + + + + documented in this encounter Visit Diagnoses + + | Diagnosis | + + | NSTEMI (non-ST elevated myocardial infarction) (HCC) - Primary Acute myocardial | | infarction, subendocardial infarction, episode of care unspecified | + + | Hyperlipidemia Other and unspecified hyperlipidemia | + + | HTN (hypertension) Unspecified essential hypertension | + + | Coronary atherosclerosis of unspecified type of vessel, [place] or graft | + + | Non-STEMI (non-ST elevated myocardial infarction) (HCC) Acute myocardial infarction, | | subendocardial infarction, episode of care unspecified | + + | Uncontrolled hypertension Unspecified essential hypertension | + + | Allergic reaction to contrast dye, subsequent encounter | + + | CARDIOMYOPATHY DILATED ISCHEMIC Other specified forms of chronic ischemic heart | | disease | + + | S/P CABG x 4 Postsurgical aortocoronary bypass status | + + | Acute systolic heart failure (HCC) Acute systolic heart failure | + + | Coronary artery disease Coronary atherosclerosis of unspecified type of vessel, | | [place] or graft | + + | Chronic diastolic CHF (congestive heart failure), NYHA class 2 (HCC) | + + documented in this encounter Administered Medications + +--------+ +--------+------+------+ | Medication Order | MAR | Action | Dose | Rate | Site | | | Action | Date | | | | + +--------+ +--------+------+------+ | aminophylline 25 mg/mL | Given | 12/17/19 | 125 mg | | | | injection Starting 12/16/13 at | | 14 11:00 | | | | | 1056, For 1 dose, KASANDRA BARKSDALE: | | AM PDT | | | | | edwint override, | | | | | | + +--------+ +--------+------+------+ +---+---+ | | | +---+---+ + +-------+ +-------+---+---+ | aspirin chewable tablet 81 mg | Given | 12/19/19 | 81 mg | | | | 81 mg, Oral, DAILY, First dose on | | 14 8:07 | | | | | 12/17/13 at 0900, Notify | | AM PDT | | | | | provider if unable to tolerate, | | | | | | + +-------+ +-------+---+---+ +-------+ +-------+---+---+ | Given | 12/18/19 | 81 mg | | | | | 14 8:20 | | | | | | AM PDT | | | | +-------+ +-------+---+---+ +---+---+ | | | +---+---+ + +-------+ +-------+---+---+ | atorvaSTATin (LIPITOR) tablet | Given | 12/18/19 | 40 mg | | | | 40 mg 40 mg, Oral, NIGHTLY, | | 14 8:36 | | | | | First dose (after last | | PM PDT | | | | | modification) on Mon12/17/13 at | | | | | | | 2100 | | | | | | + +-------+ +-------+---+---+ +---+---+ | | | +---+---+ + +-------+ +-------+---+---+ | atorvaSTATin (LIPITOR) tablet | Given | 12/17/19 | 80 mg | | | | 80 mg 80 mg, Oral, NIGHTLY, | | 14 7:58 | | | | | First dose on Mon12/16/13 at 0245 | | PM PDT | | | | + +-------+ +-------+---+---+ +-------+ +-------+---+---+ | Given | 12/17/19 | 80 mg | | | | | 14 3:00 | | | | | | AM PDT | | | | +-------+ +-------+---+---+ +---+---+ | | | +---+---+ + +-------+ +-------+---+---+ | clopidogrel (PLAVIX) tablet 75 | Given | 12/18/19 | 75 mg | | | | mg 75 mg, Oral, DAILY, First | | 14 8:20 | | | | | dose on Mon12/16/13 at 0900 | | AM PDT | | | | + +-------+ +-------+---+---+ +-------+ +-------+---+---+ | Given | 12/17/19 | 75 mg | | | | | 14 8:36 | | | | | | AM PDT | | | | +-------+ +-------+---+---+ +---+---+ | | | +---+---+ + +-------+ +-------+---+ + | diphenhydrAMINE (BENADRYL) | Given | 12/18/19 | 50 mg | | Left Arm | | injection 50 mg 50 mg, | | 14 3:58 | | | | | Intravenous, BIOMETRY TEACHER, Starting | | PM PDT | | | | | 12/17/13 at 1536, For 1 dose, | | | | | | | Give 15 minutes prior to contrast | | | | | | | injection (can be given up to 1 | | | | | | | hour prior to contrast | | | | | | | injection), Pre-op | | | | | | + +-------+ +-------+---+ + +---+---+ | | | +---+---+ + +-------+ +-------+---+---+ | dipyridamole (PERSANTINE) 5 | Given | 12/17/19 | 43 mg | | | | mg/mL injection Starting Mon | | 14 12:46 | | | | | 12/16/13 at 1100, For 1 dose, | | PM PDT | | | | | KASANDRA BARKSDALE: andrade wilcox, | | | | | | + +-------+ +-------+---+---+ +---+---+ | | | +---+---+ + +-------+ +-------+---+---+ | famotidine (PEPCID) injection | Given | 12/18/19 | 20 mg | | | | Intravenous, PRN, Heartburn, | | 14 4:50 | | | | | Starting Mon12/17/13 at 1650 | | PM PDT | | | | + +-------+ +-------+---+---+ +---+---+ | | | +---+---+ + +-------+ +--------+---+ + | fentaNYL injection | Given | 12/18/19 | 25 mcg | | Left Arm | | Intravenous, PRN, Pain, Starting | | 14 6:35 | | | | | 6/3/14 at 1634, Intra-op | | PM PDT | | | | + +-------+ +--------+---+ + +-------+ +--------+---+---+ | Given | 12/18/19 | 50 mcg | | | | | 14 5:05 | | | | | | PM PDT | | | | +-------+ +--------+---+---+ | Given | 12/18/19 | 50 mcg | | | | | 14 4:34 | | | | | | PM PDT | | | | +-------+ +--------+---+---+ +---+---+ | | | +---+---+ + + + + + +---+ | heparin infusion 50 units/mL in | Rate/Dos | 12/18/19 | 750 | 15 mL/hr | | | dextrose 5% 0-3,000 Units/hr | e Verify | 14 4:00 | Units/hr | | | | (rounded to 0-60 mL/hr), at 0-60 | | AM PDT | | | | | mL/hr, Intravenous, TITRATED, | | | | | | | Starting 12/16/13 at 0245, | | | | | | | CARDIAC DOSE HEPARIN PROTOCOL | | | | | | | INITIAL heparin infusion dose | | | | | | | Patient actual weight not | | | | | | | available. (12 units/kg/hr, | | | | | | | initial rate max 1,000 units/hr). | | | | | | | Draw APTT from an IV site other | | | | | | | than heparin IV site 6 hours | | | | | | | after starting a heparin | | | | | | | infusion. Do not stop or adjust | | | | | | | heparin therapy during the first | | | | | | | 12 hours after thrombolytic | | | | | | | therapy. Call MD for aPTT > 130 | | | | | | | seconds. PTT Nomogram for | | | | | | | ADJUSTING heparin APTT < 45 | | | | | | | seconds: Bolus Patient actual | | | | | | | weight not available. (30 | | | | | | | units/kg. Max 2,000 units) & | | | | | | | increase rate by Patient actual | | | | | | | weight not available. (4 | | | | | | | units/kg/hr) Repeat APTT 6 hr | | | | | | | after change APTT 45-56 seconds: | | | | | | | Increase rate by Patient | | | | | | | actual weight not available. (2 | | | | | | | units/kg/hr) Repeat APTT 6 hr | | | | | | | after change APTT 57-76 seconds | | | | | | | (GOAL RANGE): No bolus or rate | | | | | | | change. Repeat APTT 6 hours | | | | | | | then QAM. APTT 77-86 seconds: | | | | | | | Decrease rate by Patient actual | | | | | | | weight not available. (1 | | | | | | | unit/kg/hr) Repeat APTT 6 hr | | | | | | | after change APTT 87-98 seconds: | | | | | | | Stop infusion 30 minutes & | | | | | | | decrease rate by Patient actual | | | | | | | weight not available. (2 | | | | | | | units/kg/hr) Repeat APTT 6 hr | | | | | | | from the time infusion | | | | | | | stopped. APTT > 98 seconds: | | | | | | | Stop infusion 60 minutes & | | | | | | | decrease rate by Patient actual | | | | | | | weight not available. (3 | | | | | | | units/kg/hr) Repeat APTT 6 hr | | | | | | | from the time infusion | | | | | | | stopped. Use actual body weight | | | | | | | to calculate dose Round infusion | | | | | | | dose to nearest 50 units/hr. | | | | | | | Round bolus dose to nearest 100 | | | | | | | units., | | | | | | + + + + + +---+ + + + + +---+ | New Bag | 12/18/19 | 750 | 15 mL/hr | | | | 14 2:00 | Units/hr | | | | | AM PDT | | | | + + + + +---+ | Rate/Dose Verify | 12/17/19 | 750 | 15 mL/hr | | | | 14 8:00 | Units/hr | | | | | PM PDT | | | | + + + + +---+ +---+---+ | | | +---+---+ + +-------+ +---------+---+---+ | HYDROcodone-acetaminophen | Given | 12/19/19 | 0.5 | | | | (NORCO) 5-325 mg per tablet 1-2 | | 14 8:13 | tablets | | | | tablet 1-2 tablet, Oral, EVERY 4 | | AM PDT | | | | | HOURS PRN, Pain, Starting Mon | | | | | | | 12/16/13 at 0228, If ineffective | | | | | | | use [place] 10/325 if ordered. If | | | | | | | not tolerated, use Percocet then | | | | | | | Oxycodone if ordered., | | | | | | + +-------+ +---------+---+---+ +-------+ + +---+---+ | Given | 12/18/19 | 1 tablet | | | | | 14 6:25 | | | | | | PM PDT | | | | +-------+ + +---+---+ +---+---+ | | | +---+---+ + +-------+ +---------+---+---+ | iohexol (OMNIPAQUE 350) 350 | Given | 12/18/19 | 280 mLs | | | | mg/mL injection 280 mL 280 mL, | | 14 5:43 | | | | | Arterial, ONCE PRN, Other, | | PM PDT | | | | | Starting Mon12/17/13 at 1746, For | | | | | | | 1 dose, Cardiac Actuarial Science Professor | | | | | | + +-------+ +---------+---+---+ +---+---+ | | | +---+---+ + +-------+ +-------+---+---+ | lisinopril (PRINIVIL, ZESTRIL) | Given | 12/19/19 | 10 mg | | | | tablet 10 mg 10 mg, Oral, DAILY, | | 14 8:07 | | | | | First dose on Mon12/16/13 at 0900 | | AM PDT | | | | + +-------+ +-------+---+---+ +-------+ +-------+---+---+ | Given | 12/18/19 | 10 mg | | | | | 14 6:31 | | | | | | PM PDT | | | | +-------+ +-------+---+---+ | Given | 12/18/19 | 10 mg | | | | | 14 8:20 | | | | | | AM PDT | | | | +-------+ +-------+---+---+ +---+---+ | | | +---+---+ + +-------+ +-------+---+ + | methylPREDNISolone sodium | Given | 12/18/19 | 80 mg | | Left Arm | | succinate (solu-MEDROL) 62.5 | | 14 4:04 | | | | | mg/mL injection 80 mg 80 mg, | | PM PDT | | | | | Intravenous, ONCE, 12/17/13 at | | | | | | | 1630, For 1 dose, Mix with 2 mL | | | | | | | provided diluent to make 62.5 | | | | | | | mg/mL., Recovery/Phase I | | | | | | + +-------+ +-------+---+ + +---+---+ | | | +---+---+ + +-------+ +------+---+---+ | metoprolol tartrate (LOPRESSOR) | Given | 06/03/20 | 5 mg | | | | injection SOLN Intravenous, | | 14 5:16 | | | | | PRN, Starting 12/17/13 at 1716, | | PM PDT | | | | | Intra-op | | | | | | + +-------+ +------+---+---+ +---+---+ | | | +---+---+ + +-------+ +-------+---+---+ | metoprolol tartrate (LOPRESSOR) | Given | 12/17/19 | 25 mg | | | | tablet 25 mg 25 mg, Oral, 2 | | 14 8:36 | | | | | TIMES DAILY, First dose on Mon | | AM PDT | | | | | 12/16/13 at 0245 | | | | | | + +-------+ +-------+---+---+ +-------+ +-------+---+---+ | Given | 12/17/19 | 25 mg | | | | | 14 3:00 | | | | | | AM PDT | | | | +-------+ +-------+---+---+ +---+---+ | | | +---+---+ + +-------+ +-------+---+---+ | metoprolol tartrate (LOPRESSOR) | Given | 12/19/19 | 25 mg | | | | tablet 25 mg 25 mg, Oral, 3 | | 14 8:07 | | | | | TIMES DAILY, First dose on Mon | | AM PDT | | | | | 12/16/13 at 1400, Hold if SBP <100 | | | | | | | or resting HR <50, | | | | | | + +-------+ +-------+---+---+ +-------+ +-------+---+---+ | Given | 12/18/19 | 25 mg | | | | | 14 8:36 | | | | | | PM PDT | | | | +-------+ +-------+---+---+ | Given | 12/18/19 | 25 mg | | | | | 14 8:20 | | | | | | AM PDT | | | | +-------+ +-------+---+---+ +---+---+ | | | +---+---+ + +-------+ +------+---+---+ | midazolam (VERSED) 1 mg/mL | Given | 12/18/19 | 1 mg | | | | injection Intravenous, PRN, | | 14 5:43 | | | | | Sedation, Starting Mon12/17/13 at | | PM PDT | | | | | 1634 | | | | | | + +-------+ +------+---+---+ +-------+ +------+---+---+ | Given | 12/18/19 | 1 mg | | | | | 14 5:34 | | | | | | PM PDT | | | | +-------+ +------+---+---+ | Given | 12/18/19 | 1 mg | | | | | 14 5:11 | | | | | | PM PDT | | | | +-------+ +------+---+---+ +---+---+ | | | +---+---+ + +-------+ +------+---+---+ | ondansetron (ZOFRAN) injection | Given | 12/18/19 | 4 mg | | | | Intravenous, PRN, Nausea, | | 14 4:34 | | | | | Vomiting, Starting Mon12/17/13 at | | PM PDT | | | | | 1634 | | | | | | + +-------+ +------+---+---+ +---+---+ | | | +---+---+ + +-------+ +-------+---+---+ | pantoprazole (PROTONIX) DR | Given | 12/17/19 | 40 mg | | | | tablet 40 mg 40 mg, Oral, ONCE, | | 14 3:00 | | | | | 12/16/13 at 0245, For 1 dose, | | AM PDT | | | | | Do not cut or crush., | | | | | | + +-------+ +-------+---+---+ +---+---+ | | | +---+---+ + +---------+ +--------+--------+---+ | sodium chloride 0.9% (NS) 1,000 | New Bag | 12/18/19 | 1,000 | 166.7 | | | mL bolus 1,000 mL, Intravenous, | | 14 8:30 | mLs | mL/hr | | | Administer over 6 Hours, ONCE, | | PM PDT | | | | | 12/17/13 at 2100, For 1 dose, 1 | | | | | | | ml/kg/hr x 6 hours, | | | | | | | Post-op/Phase II | | | | | | + +---------+ +--------+--------+---+ +---+---+ | | | +---+---+ + +-------+ + +---+---+ | technetium TC-99M sestamibi | Given | 12/17/19 | 27.3 | | | | (CARDIOLITE) injection 27.3 | | 14 12:46 | -millicu | | | | millicurie 27.3 -millicurie, | | PM PDT | richardson | | | | Intravenous, ONCE PRN, Other, | | | | | | | Starting 12/16/13 at 1246, For | | | | | | | 1 dose, Nuclear Medicine | | | | | | + +-------+ + +---+---+ +---+---+ | | | +---+---+ + +-------+ + +---+---+ | technetium TC-99M sestamibi | Given | 12/17/19 | 7.7 | | | | (CARDIOLITE) injection 7.7 | | 14 10:34 | -millicu | | | | millicurie 7.7 -millicurie, | | AM PDT | richardson | | | | Intravenous, ONCE PRN, Other, | | | | | | | Starting 12/16/13 at 1033, For | | | | | | | 1 dose, Nuclear Medicine | | | | | | + +-------+ + +---+---+ +---+---+ | | | +---+---+ documented in this encounter
--- OUTSIDE RECORDS SUMMARY | ~2019-07-30 | XMS | Encounter Summary ---
Demographics + + + | Address | [address] | | | [place] [address] | + + + | Home Phone | | + + + | Preferred Language | Unknown | + + + | Marital Status | | + + + | Latter Day Affiliation | 1001 | + + + | Race | Unknown | + + + | Ethnic Group | Unknown | + + + Author + + + | Author | [facility] | | | and [place] | + + + | Organization | [facility] | | | [...] Team Providers + +------+ + | Care Ingredient Scaler Helper Name | Role | Phone | [...] Description | +--------+--------+ + + + | 11/27/ | Refill | [facility] | Fly Christianson, | Medication Refill | | 2013 | | [facility] [place] | [address] | | | | | [address] | [address] [place], | | | | | [facility] [address] | [place] [address] | | | | | [place] | [phone] | | | | | [address] | | | | | | [phone] | | | +--------+--------+ + + + [...] + | Diagnosis | + + | Hyperlipidemia - Primary Other and unspecified hyperlipidemia | + + documented in this encounter"
--- OUTSIDE RECORDS SUMMARY | ~2019-07-30 | XMS | Encounter Summary ---
Demographics + + + | Address | [address] | | | [place] [address] | + + + | Home Phone | | + + + | Preferred Language | Unknown | + + + | Marital Status | | + + + | Synagogue Affiliation | 1001 | + + + | Race | Unknown | + + + | Ethnic Group | Unknown | + + + Author + + + | Author | [facility] | | | and [place] | + + + | Organization | [facility] | | | [...] Team Providers + +------+ + | Care Field Marketing Representative Name | Role | Phone | + +------+ + PCP | Unavailable | + +------+ + Encounter Details +--------+ + + + + | Date | Type | Department | Care Team | Description | +--------+ + + + + | 04/08/ | Hospital | [place] | Doug García MD | | | 2010 | Encounter | [facility] | [address] | | | | | [address] | [place] [address] | | | | | [place], [place] | [phone] | | | | | [address] | | | | | | [phone] | | | +--------+ + + + [...] | 0 | 04/06/20 | | | [id number] | | | | 11 | 4 [...] + + + | Exam Performed Location: [facility] | MISCELANIOUS | | CT PARANASAL SINUS [...] prior exam as discussed above. S: SQ ([id number]) Signed by: | | | GILBERTO LYLES DO | | + + + + + | Procedure Note | + + | Carlos Martínez Conversion - 05/09/2013 4:59 PM PDT Ex[facility] UNENHANCEDCLINICAL INFORMATION:Chronic | | sinusitis.COMPARISON:02/01/2006.PROCEDURE:CT [...] prior exam asdiscussed | | above.S: SQ ([id number]) Signed by: GILBERTO LYLES DO | |lesser [...] | | | | | |S: SQ ([id number]) Signed by: GILBERTO LYLES DO | + + + +---------+ + + | Performing | Address | City/State/Zipcode | Phone Number | | Organization | | | | + +---------+ + + | MISCELLANEOUS LAB | | | [phone] | + +---------+ + + | MISCELANIOUS LAB | | | [phone] | + +---------+ + + documented in this encounter Visit Diagnoses Not on filedocumented in this encounter"
--- OUTSIDE RECORDS SUMMARY | ~2019-07-30 | XMS | Encounter Summary ---
Demographics + + + | Address | [address] | | | [place] [address] | + + + | Home Phone | | + + + | Preferred Language | Unknown | + + + | Marital Status | | + + + | Scientologist Affiliation | 1001 | + + + | Race | Unknown | + + + | Ethnic Group | Unknown | + + + Author + + + | Author | [facility] | | | and [place] | + + + | Organization | [facility] | | | [...] Team Providers + +------+ + | Care Assistant Boys Track Coach Name | Role | Phone | + +------+ + | Doug García MD | PCP | | + +------+ + Encounter Details +--------+ + + + + | Date | Type | Department | Care Team | Description | +--------+ + + + + | 10/21/ | Emergency | [facility] | [facility] | Constipation, | | 2019 | | [facility] | [address] | unspecified | | | | [facility] | [address] | constipation type; | | | | [address] | [place], [place] | Encounter for | | | | [place], [place] | [address] | postoperative wound | | | | [address] | [phone] | check | | | | [phone] | | | +--------+ + + + [...]
--- OUTSIDE RECORDS SUMMARY | ~2019-07-30 | XMS | Encounter Summary ---
Demographics + + + | Address | [address] | | | [place] [address] | + + + | Home Phone | | + + + | Preferred Language | Unknown | + + + | Marital Status | | + + + | Sabianist Affiliation | 1001 | + + + | Race | Unknown | + + + | Ethnic Group | Unknown | + + + Author + + + | Author | [facility] | | | and [place] | + + + | Organization | [facility] | | | [...] Team Providers + +------+ + | Care Printer Technician Name | Role | Phone | + +------+ + | Duog García MD | PCP | | + +------+ + Encounter Details +--------+ + + + + | Date | Type | Department | Care Team | Description | +--------+ + + + + | 03/02/ | Hospital | [facility] | Doug García MD | Benign essential | | 2015 | Encounter | [facility] | [address] | hypertension; | | | | [address] | [place] [address] | Hypothyroidism; | | | | [facility] | [phone] | Hyperlipidemia | | | | [place] [address] | | | | | | [phone] | | | +--------+ + + + [...] 0 | | | | tablet | nightly. | | | | 8 | + [...] Take 1 tablet by | 30 | 6 | 03/13/20 | | | tabletIndications: | mouth Daily. | tablet | | 14 | 7 | | Coronary artery | | | | | | | disease | | | | | | + + + +---------+ + + | levothyroxine | Take 1 tablet by | 30 | 11 | 03/13/20 | | | (SYNTHROID, | mouth every morning | tablet | | 14 | 5 | | LEVOTHROID) 75 MCG | (before breakfast). | | | | | | tabletIndications: | | | | | | | Hypothyroidism | | | | | | + [...] + | LIPID PANEL | Routin | 03/02/2015 | Hyperlipidemia | Results for this | | | e | 8:20 AM | | procedure are in the | | | | PDT | | results section. | + +--------+ + + + | CBC WITH | Routin | 03/02/2015 | Benign essential | Results for this | | DIFFERENTIAL | e | 8:20 AM | hypertension | procedure are in the | | | | PDT | | results section. | + +--------+ + + + | TSH | Routin | 03/02/2015 | Hypothyroidism | Results for this | | | e | 8:20 AM | | procedure are in the | | | | PDT | | results section. | + +--------+ + + + | T4, FREE | Routin | 03/02/2015 | Hypothyroidism | Results for this | | | e | 8:20 AM | | procedure are in the | | | | PDT | | results section. | + +--------+ + + + | COMPREHENSIVE | Routin | 03/02/2015 | Benign essential | Results for this | | METABOLIC PANEL | e | 8:20 AM | hypertension | procedure are in the | | | | PDT | | results section. | + +--------+ + + + documented in this encounter Results Lipid Panel (03/02/2015 8:20 AM PDT) + + + + + + | Component | Value | Ref Range | Performed | Pathologist | | | | | At | Signature | + + + + + + | Cholesterol | 217 (H) | <200 mg/dL | [facility] | [facility] | | | | | [facility] | | + + + + + + | Triglycerid | 276 (H) | <200 mg/dL | [facility] | | | es | | | [facility] | [facility] | | | [facility] | | + + + + + + | HDL | 43 | >35 mg/dL | [facility] | | | [facility] | | [facility] | | | [facility] | | + + + + + + | LDL, | 119 (H) | <100 mg/dL | [facility] | | | Calculated | | | [facility] | [facility] | | | | | | [facility] | | + + + + + + | Chol/HDL | 5.0Comment: | 3.7 - 6.7 Ratio | [facility] | | | Ratio | [place] [facility] | | [facility] | | | | FACTOR ANALYSIS | | [facility] | | | | AVER[place] RISK = 20-25% | | [facility] | | | | Chance of | | LABORATORY | | | | Developing C.H.D. by age | | | | | | 60 RISK | | | | | | MALE | | | | | | FEMALE 1/2 Average | | | | | | 3.43 | | | | | | 3.27 | | | | | | Average | | | | | | 4.97 | | | | | | 4.44 2 x Average | | | | | | 9.55 | | | | | | 7.05 3 x | | | | | | Average 23.39 | | | | | | 11.04 | | | | | | ACCURATE | | | | | | INTERPRETATION ONLY IF | | | | | | SPECIMEN | | | | | | OBTAINED AFTER 12-14 | | | | | | HR FAST | | | | + + + + + + + + | Specimen | + + | Blood specimen | | (specimen) | + + + + + + + | Performing | Address | City/State/Zipcode | Phone Number | | Organization | | | | + + + + + | [facility] | [address] | [place] [address] | | | [facility] | | | | | LABORATORY | | | | + + + + + T4, Free (03/02/2015 8:20 AM PDT) + +-------+ + + + | Component | Value | Ref Range | Performed | Pathologist | | | | | At | Signature | + +-------+ + + + | FT4 | 0.96 | 0.76 - 1.46 | [facility] | | | | | ng/dL | [facility] | | | | | | [place] | | | | | | [facility] [...] + + + + + | [facility] | [address] | [place] [address] | | | [facility] | | | | | LABORATORY | | | | + + + + + TSH (03/02/2015 8:20 AM PDT) + + + + + + | Component | Value | Ref Range | Performed | Pathologist | | | | | At | Signature | + + + + + + | TSH | 6.93 (H) | 0.36 - 3.74 | [facility] | | | | | uIU/mL | [facility] | | | | | | [facility] | [address] | [place] [address] | | | [facility] | | | | | LAB[facility]ATORY | | | | + + + + + Comprehensive Metabolic Panel (03/02/2015 8:20 AM PDT) + + + + + [...] | K | 4.4 | 3.5 - 5.1 | [facility] | | | | | mmol/L | [facility] | | | | | | [facility] | | + + + + + + | Cl | 102 | 98 - 109 mmol/L | [facility] | | | | | [facility] | [facility] | | | | | | [facility] | | + + + + + + | CO2 | 27 | 21 - 32 mmol/L | [facility] | | | | [facility] | | | | | | [facility] | | + + + + + + | Glucose | 102 | 60 - 114 mg/dL | [facility] | | | | [facility] | [facility] | | | | | | [facility] | | + + + + + + | BUN | 15 | 8 - 21 mg/dL | [facility] | | | | [facility] | [facility] | | | | | | [facility] | | + + + + + + | Creatinine | 1.08 | 0.5 - 1.2 mg/dL | [facility] | | | | | [facility] | | | | | | [facility] | | + + + + + + | Calcium | 8.9 | 8.4 - 10.5 | [facility] | | | | | mg/dL | [facility] | [facility] | | | | | | [facility] | | + + + + + + | Total | 8.1 (H) | 6.3 - 8.0 g/dL | [facility] | | | Protein | | | [facility] | | | | | [facility] | | | | | | [facility] | | + + + + + + | Albumin | 4.1 | 3.5 - 5.0 g/dL | [facility] | | | | | | [facility] | | | | | | [facility] | | + + + + + + | Bilirubin | 0.5 | 0.2 - 1.0 mg/dL | [facility] | | | Total | | | [facility] | | | | [facility] | | | | | | [facility] | | + + + + + + | Alkaline | 80 | 38 - 110 U/L | [facility] [...] + + + + | ALT | 29 | 12 - 78 U/L | [facility] | | | | | [facility] | | | | | | [facility] | | + + + + + + | Anion Gap | 13 | 10 - 20 mmol/L | [facility] | | | | [facility] | [facility] | | | | | | [facility] | | + + + + + + | Estimated | 53 (L)Comment: GFR <60: | >60 | [facility] [...] [facility] | [address] | [place] [address] | | | [facility] | | | | | LABORATORY | | | | + + + + + CBC with Differential (03/02/2015 8:20 AM PDT) + + + + + + | Component | Value | Ref Range | Performed | Pathologist | | | | | At | Signature | + + + + + + | WBC | 3.9 (L) | 4.0 - 11.0 K/uL | [facility] | | | | [facility] | | [facility] | [facility] | | + + + + + + | RBC | 4.01 | 3.80 - 5.20 | [facility] | | | | | M/uL | [facility] | | | | | [facility] | | | | | | [facility] | | + + + + + + | Hemoglobin | 12.3 | 11.6 - 15.5 | [facility] | | | | | g/dL | [facility] | [facility] | | | [facility] | | | | | | [facility] | | + + + + + + | Hematocrit | 36.9 | 35.0 - 46.0 % | [facility] | | | | | | [facility] | | | | | | [facility] | | + + + + + + | MCV | 91.9 | 80.0 - 100.0 fL | [facility] | | | | | | [facility] | | | | | | [facility] | | + + + + + + | MCH | 30.7 | 27.0 - 34.0 pg | [facility] | | | | | | [facility] | | | | | | [facility] | | + + + + + + | MCHC | 33.4 | 32.0 - 35.5 | [facility] | | | | | g/dL | [facility] | | | | | [facility] | | | | | | [facility] | | + + + + + + | RDW-CV | 13.1 | 11.0 - 15.0 % | [facility] | | | | | | [facility] | | | | | | [facility] | | + + + + + + | Platelet | 162 | 150 - 400 K/uL | [facility] [...] + + + + | % | 65.8 | 38.0 - 80.0 % | [facility] | | | Neutrophils | | | [facility] | | | | | | [facility] | | + + + + + + | % | 23.9 | 21.0 - 49.0 % | [facility] | | | Lymphocytes | | | [facility] | | [facility] | | | | | | [facility] | | + + + + + + | % Monocytes | 7.3 | 3.0 - 11.0 % | [facility] | | | | | | [facility] | | | | | | [facility] | | + + + + + + | % | 2.8 | 0.0 - 7.0 % | [facility] | | | Eosinophils | | | [facility] | [facility] | | [facility] | | | | | | [facility] | | + + + + + + | % Basophils | 0.2 | 0.0 - 2.0 % | [facility] | | | | | | [facility] | | | | | | [facility] | | + + + + + + | Absolute | 2.60 | 1.8 - 7.7 K/uL | [facility] | | | Neutrophils | | | [facility] | | | | | [facility] | | | | | | [facility] | | + + + + + + | Absolute | 0.90 (L) | 1.0 - 5.0 K/uL | [facility] | | | Lymphocytes | | | [facility] | | [facility] | | | | | | [facility] | | + + + + + + | Absolute | 0.30 | 0 - 0.8 K/uL | [facility] | | | Monocytes | | | [facility] | [facility] | | | | | | [facility] | | + + + + + + | Absolute | 0.10 | 0 - 0.5 K/uL | [facility] | | | Eosinophils | | | [facility] | | [facility] | | | | | | [facility] | | + + + + + + | Absolute | 0.00 | 0.0 - 0.2 K/uL | [facility] | | | Basophils | | | [facility] | | | [...] + | [facility] | [address] | [place] [address] | | | [facility] | | | | | LABORATORY | | | | + + + + + documented in this encounter Visit Diagnoses + + | Diagnosis | + + | Benign essential hypertension Essential hypertension, benign | + + | Hypothyroidism Unspecified hypothyroidism | + + | Hyperlipidemia Other and unspecified hyperlipidemia | + + documented in this encounter"
--- OUTSIDE RECORDS SUMMARY | ~2019-07-30 | XMS | Encounter Summary ---
Demographics + + + | Address | [address] | | | [place] [address] | + + + | Home Phone | | + + + | Preferred Language | Unknown | + + + | Marital Status | | + + + | Gnosticist Affiliation | 1001 | + + + | Race | Unknown | + + + | Ethnic Group | Unknown | + + + Author + + + | Author | [facility] | | | and [place] | + + + | Organization | [facility] | | | [...] Team Providers + +------+ + | Care Crop Picker Name | Role | Phone | + +------+ + PCP | Unavailable | + +------+ + Encounter Details +--------+ + + + + | Date | Type | Department | Care Team | Description | +--------+ + + + + | 04/19/ | Hospital | [facility] | JuanCarmen Kaylan | | | 2005 - | Encounter | [facility] | | | | | | PHYSICAL THERAPY | | | | 06/05/ | | [address] | | | | 2005 | | [place], [place] | | | | | | [address] | | | | | | [phone] | | | +--------+ + + + [...] documented as of this encounter Progress Notes Mary Jo Glass - 05/22/2013 7:[address] [address] Rehabilitation Services DATE: 05/17/06 DICTATING THERAPIST: Mary Jo Glass PATIENT NAME: DUSTINMARKIE DISCHARGE SUMMARY REFERRING PHYSICIAN: CARMEN WELLS MD DIAGNOSIS: VESTIBULAR THERAPY AND FALL PREVENTION Patient was seen for Initial Evaluation and one subsequent visit for evaluation of dizzine ss. As reported in the Initial Evaluation, it does not appear to be related to vestibular s ystem. We will, therefore, discharge patient's chart from active files at this time. Thank you, Doctor Juan, for this referral. BIANCA Hernandez/ACOSTA CC: Electronically Signed 05/18/06 1424 Mary Jo Glass PT This patient has been discharged from Rehabilitation. If you feel the patient will need f urther therapy, a new physician's order will be required. documented in this encounter Plan of Treatment Not on filedocumented as of this encounter Visit Diagnoses Not on filedocumented in this encounter"
--- OUTSIDE RECORDS SUMMARY | ~2019-07-30 | XMS | Encounter Summary ---
Demographics + + + | Address | [address] | | | [place] [address] | + + + | Home Phone | | + + + | Preferred Language | Unknown | + + + | Marital Status | | + + + | Orthodoxy Affiliation | 1001 | + + + | Race | Unknown | + + + | Ethnic Group | Unknown | + + + Author + + + | Author | [facility] | | | and [place] | + + + | Organization | [facility] | | | [...] Team Providers + +------+ + | Care Building Maintenance Superintendent Name | Role | Phone | + [...] | | | | | | | Recurrent | | | | | | | Atrial | | | | | | | Fibrillation | | | +--------+--------+ + + + + Encounter Details +--------+ + + + + | Date | Type | Department | Care Team | Description | +--------+ + + + + | 01/15/ | Hospital | [facility] | Ivon Shelton | Paroxysmal atrial | | 2013 - | Encounter | [facility] | MD Adrian [address] | fibrillation (HCC) | | | | CARDIAC TRANSPLANT | [address]VE [address] | (Primary Dx) | | 01/17/ | | [address] | [place] [address] | | | 2013 | | [place] | [phone] | | | | | [address] | | | | | | [phone] | | | +--------+ + + + [...] + + + | Blood Pressure | 136/77 | 01/17/2014 7:30 AM | | | | | PDT | | + + + + + | Pulse | 73 | 01/17/2014 7:30 AM | | | | | PDT | | + + + + + | Temperature | 37.4 C (99.3 F) | 01/17/2014 7:30 AM | | | | | PDT | | + + + + + | Respiratory Rate | 16 | 01/17/2014 7:30 AM | | | | | PDT | | + + + + + | Oxygen Saturation | 94% | 01/17/2014 7:30 AM | | | | | PDT | | + + + + + | Inhaled Oxygen | - | - | | | Concentration | | | | + + + + + | Weight | 73.4 kg (161 lb 13.1 | 01/16/2014 5:58 PM | | | | oz) | PDT | | + + + + + | Height | 165.1 cm (5' 5") | 01/15/2014 7:15 PM | | | | | PDT | | + + + + + | Body Mass Index | 26.93 | 01/15/2014 7:15 PM | | | | | PDT [...] documented as of this encounter Discharge Summaries Andre Chan MD - 01/17/2014 10:17 AM PDTDay of Discharge Patient has remained in sinus rhythm. We'll discharge today with with oral amiodarone and warfarin. I interviewed and examined the patient. I have reviewed the daily note as written by the [facility] provider, and discussed the patient with the provider team. The patient is ready for discharge as described, and the discharge disposition is as noted in today's resident progress note. Patient is to follow-up with primary provider - other providers as noted. For further details of hospital course, discharge medications, and follow-up please see the dictated discharge summary. Discharge time: [] < 30 minutes Andre Chan MD Brittany Caruso ARNP - 01/17/2014 10:17 AM PDT PATIENT NAME: Chaya Chan : 1940: AGE: 73 y.o. ADMISSION DATE: 01/15/2014 DISCHARGE DATE: 01/17/2014 PRIMARY CARE: MD Brittany Thao ARNP DISCHARGE SUMMARY Principal Hospital Problem/Admission Diagnoses: Paroxysmal atrial fibrillation (HCC) Discharge Diagnoses: Paroxysmal atrial fibrillation (HCC) Assessment & Plan Patient has remained in sinus rhythm since admission here. Currently she is receiving metop rolol 25 mg BID and amiodarone PO 200mg BID. Will DC patient from [facility] today, Follow up has been scheduled for 02/10/14. Coronary artery disease Assessment & Plan The patient is status post CABGx4 by Dr. Viera with normal LVEF. Recovering from surgery. Hospital Course: 73 yo female post CABG x4 on 12/24/13. Her postoperative period was complicated by paroxysma l atrial fibrillation. She was hospitalized at [facility] from 01/06-01/15 with recurre nt Afib and some transient Mobitz type 2 HB. She was transferred here to [facility] on 01/15/14 and she was placed on amiodarone and taken off digoxin. She has maintained NSR since admission here. She will be Dcd to home today on her current medications and follow up as previously scheduled on 02/10/14. Follow-Up: Fly Christianson MD [address] [facility] [address] [facility] [address] On 02/10/2014 at 1 pm Reena Ralph PA-C [address] [place] [address] [facility] [address] On 02/10/2014 @ 2 pm Discharge Medications: Medications prior to admission that will be resumed at discharge: Medication Sig Dispense Refill Ascorbic Acid (VITAMIN C) 1000 MG tablet [...] tablet by mouth Daily. 30 tablet 1 furosemide (LASIX) 40 mg tablet Take 1 tablet by mouth Daily. 30 tablet 0 HYDROcodone-acetaminophen (NORCO) 5-325 mg per tablet Take [...] by mouth 2 times daily. 60 tablet 2 potassium chloride SA (K-DUR,KLOR-CON) 10 MEQ tablet Take 1 tablet by mouth 2 times amadou ly. 90 tablet 0 warfarin (COUMADIN) 2 mg tablet Take by mouth. Pharmacy to dose zinc sulfate 220 mg capsule Take 220 mg by mouth 2 times daily. New medications prescribed at discharge: Medication Sig Dispense Refill [DISCONTINUED] amiodarone (PACERONE) 200 mg tablet Take 1 tablet by mouth 2 times daily . 60 tablet 3 amiodarone (PACERONE) 200 mg tablet Take 1 tablet by mouth 2 times daily. 60 tablet 3 Procedures In Hospital: none Discharge Exam: Vital Signs: Temp: 37.4 C (99.3 F) BP: 136/77 mmHg Pulse: 73 Resp: 16 SpO2: 94 % Last Wt. Before discharge: Weight: 73.4 kg (161 lb 13.1 oz) Wt. Admission: Weight: 73.5 kg (162 lb 0.6 oz) GENERAL: Pleasant, in no apparent distress NECK: Supple. No JVD CHEST: Good inspiratory effort with no crackles, rhonchi, or wheezes. CARDIAC: Normal S1 and S2. No murmurs, rubs or gallops. ABDOMEN: Soft, non-tender, non distended with normal, active bowel sounds. EXTREMITIES: No clubbing, cyanosis, trace edema LLE PULSES: Right: DP 2+, PT 2+ Left: DP 2+, PT 2+ NEUROLOGIC: Non-focal. SKIN: No rashes or skin breakdown. TELE: Labs: Recent Labs Basename 01/17/14 0354 01/16/14 0902 01/16/14 0431 01/15/14 0620 WBC -- 5.7 4.9 5.7 HGB -- 10.0* 9.3* 10.2* HCT -- 29.8* 28.0* 29.1* NA -- -- 135 136 K -- -- 4.5 4.2 CL -- -- 98* 98 CO2 -- -- 32* 29 BUN -- -- 10 9 CREA -- -- 0.99 0.90 GLU -- -- 85 96 CALCIUM -- -- 9.1 9.2 INR 2.8* 2.8* -- 2.7* PT -- -- -- -- PTT -- -- -- -- CKMB -- -- -- -- TROPONINI -- -- -- -- BNP -- -- -- -- Lab Results Component Value Date CHOL 115 12/16/2013 LDL 48 12/16/2013 HDL 53 12/16/2013 TRIG 70 12/16/2013 Lab Results Component Value Date TSH 4.48* 01/13/2014 AVS Discharge Instructions: Discharge Instructions PT/INR on Monday at [facility]. Time spent on discharge planning:less than 30 minutes Signed by: ABBY Cade 01/17/2014, 10:22 documented in this encounter Discharge Instructions Instructions Brittany Prasad ARNP - 01/17/2014PT/INR on Monday at [facility]. Atrial Fibrillation Atrial Fibrillation is a condition where the heart beats in an irregular pattern. It is due to a disturbance in the electrical pathways of the heart. It is a sign of heart disea se or other health problem affecting the heart. The most common symptom is palpitations . This is the feeling that your heart is flutt ering, beating fast, hard or irregular. When the heart beats too fast it does not pump blood very well. This can cause other symptoms such as anxiety, fatigue, shortness of breath, javi st pain, dizziness or fainting. Atrial Fibrillation may come and go, lasting from a few hour s to a couple of days. Or, it may become chronic, lasting for months at a time, or longer. Atrial Fibrillation may be caused by a disease of the heart or other conditions in the body that affect the heart: Coronary artery disease (atherosclerosis) High blood pressure Disease of the heart valves Enlarged heart Atrial Fibrillation can also occur without heart disease due to: Overactive thyroid (hyperthyroid) Chronic lung disease (COPD, emphysema, bronchitis) Heavy alcohol use Cardiac stimulants (cocaine, amphetamines, diet pills, certain decongestant cold medicin es, caffeine or nicotine) Infection Blood clot in the lung (pulmonary embolus) Treating or removing these causes will improve success in the treatment of Atrial Fibrillat ion and reduce your risk of recurrence. Atrial Fibrillation can alternate back and forth with another abnormal rhythm called Atrial Flutter . The risk of stroke increases with either of these conditions. Proper treatment ca n reduce your risk of stroke. Home Care: Resume your usual activities as soon as you are feeling back to normal. If you smoke, stop smoking. Contact your doctor or a local stop-smoking program for help . Avoid cardiac stimulants (cocaine, amphetamines, diet pills, certain decongestant cold m edicines, caffeine or nicotine). If medicine is prescribed to prevent recurrence of Atrial Fibrillation, take it exactly as directed. Some medicines must be taken daily, not just when you have symptoms, in order t o be effective. If you were prescribed warfarin (Coumadin) to reduce stroke risk, have your blood tested on a regular basis as advised by your doctor. This will ensure you are getting the dose arnel t is right for you and reduce the risk of side effects. Follow Up with your doctor as advised by our staff. Get Prompt Medical Attention if any of the following occur: Increasing shortness of breath or swelling in the legs Unexpected weight gain Chest pain or palpitations (the sense that your heart is fluttering, beating fast or annemarie d) Fever of 100.4F (38C) or higher, or as directed by your healthcare provider Cough with dark colored or bloody sputum (mucus) Pain, redness or swelling in one leg Signs of stroke: Weakness of an arm or leg or one side of the face Difficulty with speech or vision Extreme drowsiness, confusion, dizziness or fainting [id number] [place] [address]. All rights reserve d. This information is not intended as a substitute for professional medical care. Always fo llow your healthcare professional's instructions. AttachmentsThe following attachments cannot be sent through Care Everywhere.AMIODARONE HYDR OCHLORIDE ORAL TABLET (STATELESS)TAKINGCOUMADIN (STATELESS)documented in this encounter Medications at Time of [...] 0 | 01/14/20 | | | SA (RC SARGENT) | mouth 2 times daily. | tablet [...] documented as of this encounter Progress Notes Tiffanie Pereira PharmD - 01/17/2014 9:41 AM PDTFormatting of this note might be differen t from the original. Pharmacy Progress Note Warfarin Per Pharmacy Protocol: Chaya Chan is a 73 y.o. female receiving warfarin for atrial fibrillation Goal INR: 2-3 Date 01/15/2014 01/16/2014 01/17/2014 INR 2.7 2.8 2.8 Warfarin Dose 4 mg 3 mg 2mg Platelets 389 343 - H&H ..1 - Assessment/Plan: 1. Warfarin 2 mg po x1 today for INR 2.8. Reduced from home dose of 4mg daily as amiodarone was started 01/15 and has significant (delayed) drug-drug interaction with warfarin. It is re commended warfarin dose be reduced /3 to 1/2 with the start on amiodarone and INR to be mon itored closely. INR is currently in upper-end of goal range. 2. Medication profile reviewed for potential drug-drug interactions. 3. Labs ordered: INR daily and CBC every other day 4. Pharmacist to follow daily Subjective/Objective: Lab 01/17/14 0354 01/16/14 0902 01/16/14 0431 CREA -- -- 0.99 PLT -- 343 -- INR 2.8* -- -- HGB -- 10.0* -- HCT -- 29.8* -- []Initiation [x]chronic Home regimen: 4mg daily Interactions: Amiodarone (major, delayed drug-drug interaction with warfarin). Per P&T-approved Warfarin Protocol Electronically signed by: Tiffanie Pereira PHARMD 01/17/2014 9:41 Ivon Gray MD - 01/16/2014 12:02 PM PDTDuring the hospital visit, I personally interviewed and examined the patient. I confirme d the shepherd components of the history and PE. I reviewed the note as written by the resident jemal mays, and discussed the patient with the resident team. I agree with the impressions and plans and have listed any needed clarifications. Ivon Shelton MD 01/23/2014 9:41 Raimundo hart, Rayne Guardado MD - 01/16/2014 12:02 PM PDT PATIENT NAME: Chaya Chan : 1940: AGE: 73 y.o. ADMISSION DATE: 01/15/2014 DISCHARGE DATE: 01/16/2014 PRIMARY CARE: MD Rayne Thao MD DAILY PROGRESS NOTE CURRENT ASSESSMENT AND PLAN Paroxysmal atrial fibrillation (HCC) Assessment & Plan Patient has remained in sinus rhythm since admission here. She reports she was admitted for about a week at an outside hospital without control of her rate. Currently she is receiving metoprolol 50 mg BID and amiodarone PO 200mg BID. She was also started on digoxin at the [facility] (250mcg/day) this has not been continued here. Our plan will be to continue t o monitor. If she remains in sinus we may consider discharge in the morning on the current r egimen with outpatient follow up with Dr. Erum Gerardo. Coronary artery disease Assessment & Plan The patient is status post four-vessel coronary bypass surgery by Dr. Viera (left internal mammary artery to the left anterior descending, aortocoronary reverse saphenous vein grafts to the obtuse marginal branch of the circumflex, diagonal branch of the left anterior descen ding, and right coronary artery). No recurrent epidodes of chest pain. Continuing her home atorvastatin and beta candice. Appears to be recovering from the surgery well. Second degree AV block Assessment & Plan The patient reportedly had intermittent second-degree A-V block (Mobitz type II) Benign essential hypertension Assessment & Plan Adequate controlled at this time. Post pericardiotomy syndrome Assessment & Plan Patient's pain is well controlled. She does have a small pericardial effusion on echo as we ll as a left pleural effusion. She also has a small rub on exam. Will continue to treat with NSAID's as needed. The effusion may be the underlying cause of her atrial fib; and the effu marv is almost certainly due recent pericardiotomy. Will continue to monitor. Chronic diastolic CHF (congestive heart failure), NYHA class 2 (HCC) Assessment & Plan This appears to be stable at this time. Although the patient has a left pleural effusion sh e denies dyspnea. Suspect effusion due to recent surgery and not CHF exacerbation. Principal Problem: *Paroxysmal atrial fibrillation (HCC) Active Problems: Coronary artery disease Second degree AV block Benign essential hypertension Chronic diastolic CHF (congestive heart failure), NYHA class 2 (HCC) Post pericardiotomy syndrome SCHEDULED MEDS: amiodarone 200 mg Oral BID atorvaSTATin 40 mg Oral Daily famotidine 20 mg Oral Daily ferrous gluconate 324 mg Oral BID WC folic acid 1 mg Oral Daily furosemide 40 mg Oral Daily levothyroxine 75 mcg Oral QAM AC magnesium oxide 400 mg Oral Daily metoprolol tartrate 25 mg Oral BID pharmacy to dose warfarin Other Pharmacy Consult potassium chloride SA 10 mEq Oral BID warfarin 3 mg Oral Once - Warfarin [COMPLETED] warfarin 4 mg Oral Once - Warfarin LABS Recent Results (from the past 24 hour(s)) MAGNESIUM Collection Time 01/16/14 0431 Component Value Range MG 2.4 1.7 - 2.4 mg/dL CBC WITH DIFFERENTIAL Collection Time 01/16/141 Component Value Range WBC 4.9 3.8 - 11.0 K/uL RBC 3.04 (*) 3.70 - 5.10 M/uL Hgb 9.3 (*) 11.3 - 15.5 g/dL Hct 28.0 (*) 34.0 - 46.0 % MCV 92.1 80.0 - 100.0 fL MCH 30.5 27.0 - 34.0 pg MCHC 33.1 32.0 - 35.5 g/dL RDW 14.9 11.0 - 15.5 % Platelet Count 322 150 - 400 K/uL Differential Type Automated % Neutrophils 69.8 40.0 - 75.0 % % Lymphocytes 13.6 (*) 15.0 - 48.0 % % Monocytes 10.3 0.0 - 12.0 % % Eosinophils 5.5 0.0 - 7.0 % % Basophils 0.8 0.0 - 2.0 % Absolute Neutrophils 3.40 1.90 - 7.40 K/uL Absolute Lymphocytes 0.70 (*) 1.00 - 3.90 K/uL Absolute Monocytes 0.50 0.00 - 0.80 K/uL Absolute Eosinophils 0.30 0.00 - 0.50 K/uL Absolute Basophils 0.00 0.00 - 0.10 K/uL COMPREHENSIVE METABOLIC PANEL Collection Time 01/16/14 0431 Component Value Range NA 135 135 - 145 mmol/L K 4.5 3.5 - 5.0 mmol/L CL 98 (*) 99 - 109 mmol/L CO2 32 (*) 21 - 28 mmol/L GLUCOSE 85 65 - 99 mg/dL BUN 10 8 - 25 mg/dL Creatinine, Serum 0.99 0.50 - 1.00 mg/dL CALCIUM 9.1 8.5 - 10.2 mg/dL Total protein 6.6 6.1 - 7.8 g/dL ALBUMIN 3.4 3.3 - 4.8 g/dL BILIRUBIN TOTAL 0.5 0.2 - 1.1 mg/dL ALK PHOS 95 35 - 115 U/L AST 9 (*) 10 - 45 U/L ALT 8 (*) 10 - 65 U/L ANION GAP 5 5 - 16 mmol/L Estimated GFR 55 (*) >60 ml/min/1.73m2 CBC NO DIFFERENTIAL Collection Time 01/16/14901 Component Value Range WBC 5.7 3.8 - 11.0 K/uL RBC 3.18 (*) 3.70 - 5.10 M/uL Hgb 10.0 (*) 11.3 - 15.5 g/dL Hct 29.8 (*) 34.0 - 46.0 % MCV 93.5 80.0 - 100.0 fL MCH 31.3 27.0 - 34.0 pg MCHC 33.5 32.0 - 35.5 g/dL RDW 14.9 11.0 - 15.5 % Platelet Count 343 150 - 400 K/uL PROTIME INR Collection Time 01/16/14901 Component Value Range PROTIME 29.4 (*) 12.0 - 14.2 sec INR 2.8 (*) 0.9 - 1.1 OBJECTIVE LATEST VITALS: BP 131/76 | Pulse 69 | Temp 37.1 C (98.7 F) (Temporal) | Resp 16 | Ht 1 .651 m (5' 5") | Wt 73.5 kg (162 lb 0.6 oz) | BMI 26.96 kg/m2 | SpO2 92% I/O s (this shift): I/O this shift: In: - Out: 200 [Urine:200] Vital sign ranges for last 24hrs: Input and output for last 24hrs: Temp: [36.4 C (97.5 F)-37.2 C (98.9 F)] 37.1 C (98.7 F) Pulse: [64-75] 69 Resp: [16-18] 16 BP: (131-161)/(71-92) 131/76 mmHg SpO2 Av.7 % Min: 92 % Max: 97 % 01/14 1901 - 01/16 0700 In: - Out: 700 [Urine:700] Body mass index is 26.96 kg/(m^2).; Body surface area is 1.84 meters squared. PHYSICAL EXAM Admit Weight: Weight: 73.5 kg (162 lb 0.6 oz) Current weight: Weight: 73.5 kg (162 lb 0.6 oz) GENERAL: Pleasant elderly woman with nasal cannula sitting in a chair. at the [facility]. HEENT: The oropharynx and conjunctivae are clear. Mucous membranes moist. EEOMI. NECK: Supple. CHEST: Good inspiratory effort mild crackles at left base, no appreciable vesicular breath sounds, dullness to percussion or egophony. CARDIAC: No lifts/heaves. PMI is discrete and non-displaced. Normal S1 and S2. Soft rub l oudest at the second intercostal space accentuates with leaning forward. ABDOMEN: Soft, non-tender, nondistended with normal, active bowel sounds. Normal abdominal pulsation without bruit. EXTREMITIES: No clubbing, cyanosis, or edema. PULSES: Right: radial 2+, femoral 2+ DP 2+, PT 2+ Left: radial 2+, femoral 2+ DP 2+, PT 2+ NEUROLOGIC: Non-focal. SKIN: No rashes or skin breakdown. MUSCULOSKELETAL: normal ambulation Signed by: Rayne Ruelas MD 01/16/2014, 12:09 Rissa Dow (Fritz), PharmD - 01/16/2014 10:33 AM PDT Pharmacy Progress Note Warfarin Per Pharmacy Protocol: Chaya Chan is a 73 y.o. female receiving warfarin for atrial fibrillation Goal INR: 2-3 Date 01/15/2014 7/3 INR 2.7 2.8 Warfarin Dose 4 mg 3 mg Platelets 389 343 H&H 10.2/29.1 10.0/29.8 Assessment/Plan: 1. Warfarin 3 mg po x1 today for INR 2.8. Reduced slightly from home dose of 4mg as amiodar one new med w/ drug-drug interaction. 2. Medication profile reviewed for potential drug-drug interactions 3. Labs ordered: INR daily and CBC every other day 4. Pharmacist to follow daily Subjective/Objective: Lab 01/16/14 0902 01/16/14 0431 CREA -- 0.99 PLT 343 -- INR 2.8* -- HGB 10.0* -- HCT 29.8* -- []Initiation [x]chronic Home regimen: 4mg daily Interactions: Amiodarone Per P&T-approved Warfarin Protocol Electronically signed by: Yonis Randall, PHARMD 01/16/2014 10:33 mail, Monica Duenas, PharmD - 08/2013 8:27 PM PDT Pharmacy Progress Note Warfarin Per Pharmacy Protocol: Chaya Chan is a 73 y.o. female receiving warfarin for atrial fibrillation Goal INR: 2-3 Date 01/15/2014 INR 2.7 Warfarin Dose 4 mg Platelets 389 H&H 10.2/29.1 Assessment/Plan: 1. Warfarin 4 mg po today 2. Medication profile reviewed for potential drug-drug interactions 3. Labs ordered: INR daily and CBC every other day 4. Pharmacist to follow daily Subjective/Objective: Lab 01/15/14 0620 CREA 0.90 PLT 389 INR 2.7* HGB 10.2* HCT 29.1* []Initiation [x]chronic Home regimen: 4mg daily Interactions: Amiodarone Per P&T-approved Warfarin Protocol Electronically signed by: Monica Serna PHARMD 01/15/2014 20:27 documented in this encounter Plan of Treatment Not on filedocumented as of this encounter Procedures + +--------+ + + + | Procedure Name | Priori | Date/Time | Associated Diagnosis | Comments | | | ty | | | | + +--------+ + + + | DIGITOXIN LEVEL | Routin | 01/17/2014 | | Results for this | | | e | 3:54 AM | | procedure are in the | | | | PDT | | results section. | + +--------+ + + + | PROTIME INR | Routin | 01/17/2014 | | Results for this | | | e | 3:54 AM | | procedure are in the | | | | PDT | | results section. | + +--------+ + + + | ECG 12 LEAD | STAT | 01/16/2014 | | Results for this | | | | 6:25 PM | | procedure are in the | | | | PDT | | results section. | + +--------+ + + + | PROTIME INR | Routin | 01/16/2014 | | Results for this | | | e | 9:02 AM | | procedure are in the | | | | PDT | | results section. | + +--------+ + + + | CBC NO DIFFERENTIAL | Routin | 01/16/2014 | | Results for this | | | e | 9:02 AM | | procedure are in the | | | | PDT | | results section. | + +--------+ + + + | ECG 12 LEAD | Routin | 01/16/2014 | | Results for this | | | e | 5:31 AM | | procedure are in the | | | | PDT | | results section. | + +--------+ + + + | CBC WITH | Routin | 01/16/2014 | | Results for this | | DIFFERENTIAL | e | 4:31 AM | | procedure are in the | | | | PDT | | results section. | + +--------+ + + + | MAGNESIUM | Routin | 01/16/2014 | | Results for this | | | e | 4:31 AM | | procedure are in the | | | | PDT | | results section. | + +--------+ + + + | COMPREHENSIVE | Routin | 01/16/2014 | | Results for this | | METABOLIC PANEL | e | 4:31 AM | | procedure are in the | | | | PDT | | results section. | + +--------+ + + + documented in this encounter Results Theron INR (01/17/2014 3:54 AM PDT) + + + + + + | Component | Value | Ref Range | Performed | Pathologist | | | | | At | Signature | + + + + + + | Prothrombin | 29.6 (H) | 12.0 - 14.2 sec | [facility] | | | Time | | | [facility] | | | | | [facility] | | | | | | [facility] | | | | | | [facility] | | | | | | LABORATORY | | + + + + + + | INR | 2.8 (H)Comment: Usual | 0.9 - 1.1 | [facility] | | | | oral anticoagulant | | [facility] | | | | range: 2.0 to 3.0 | | HEART | | | | High level oral | | MEDICAL | | | | anticoagulant range: 2.5 | | CENTER | | | | to 3.5 | | LABORATORY | | + + + + + + + + | Specimen | + + | Blood specimen | | (specimen) | + + + + + + + | Performing | Address | City/State/Zipcode | Phone Number | | Organization | | | | + + + + + | [facility] | [address] | [place] [address] | | | [facility] | | | | | LABORATORY | | | | + + + + + Digitoxin Level (01/17/2014 3:54 AM PDT) + + + + + + | Component | Value | Ref Range | Performed | Pathologist | | | | | At | Signature | + + + + + + | Digitoxin | <9.0 (L)Comment: | 10.0 - 32.0 | [facility] | | | Level | INTERPRETIVE | ng/mL | [facility] | | | | INFORMATION: Digitoxin | | HEART | | | | | | MEDICAL | | | | | | CENTER | | | | | | LABORATORY | | | | | | | | | | Therapeutic | | | | | | Range:10.0-32.0 ng/mL | | | | | | | | | | | | | | | | | | | | | | | | Toxic: | | | | | | Greater than 35.0 ng/mL | | | | | | | | | | | | | | | | | | | | | | | | Toxic | | | | | | concentrations may cause | | | | | | nausea, vomiting and | | | | | | cardiacabnormalities.Mendy | | | | | | t performed at [facility] | | | | | | Laboratories, [address] | | | | | | [facility] | | | | | | [place], [place] | | | | | | [phone].Performed at [facility], | | | | | | [address] [facility] | | | | | | [place] [address] | | | | + + + + + + + + | Specimen | + + | Blood specimen | | (specimen) | + + + + + + + | Performing | Address | City/State/Zipcode | Phone Number | | Organization | | | | + + + + + | [facility] | [address] | [place] [address] | | | [facility] | | | | | LABORATORY | | | | + + + + + ECG 12 lead (01/16/2014 6:25 PM PDT) + + | Specimen | + + | | + + + + + | Narrative | Performed At | + + + | RR Interval: | [facility] | | msP-R Interval: msQRSD Interval: msQT Interval: msQTC | [facility] | | Interval: msHeartrate: bpmP [place]: degQRS [place]: degT Wave [place]: | | | degI: 40 [place]: degT: 40 [place]: degT: 40 [place]: degST [place]: | | | degSeverity: - ABNORMAL ECG -INTERP: ATRIAL FIBRILLATIONINTERP: | | | PROBABLE LVH WITH SECONDARY REPOL ABNRM | | |P [place]: deg | | |QRS [place]: deg | | |T Wave [place]: deg | | |I: 40 [place]: deg | | |T: 40 Ess[place]: deg | | |T: 40 [place]: deg | | |ST [place]: deg | | |Severity: - ABNORMAL ECG - | | |INTERP: ATRIAL FIBRILLATION | | |INTERP: PROBABLE LVH WITH SECONDARY REPOL ABNRM | | + + + + + | Transcriptions | + + | [place] - 01/16/2014 12:00 AM PDT | + + + + + + + | Performing | Address | City/State/Zipcode | Phone Number | | Organization | | | | + + + + + | [facility] | [address] | [place] [address] | [phone] | + + + + + Theron CROUCH (01/16/2014 9:02 AM PDT) + + + + + + | Component | Value | Ref Range | Performed | Pathologist | | | | | At | Signature | + + + + + + | Prothrombin | 29.4 (H) | 12.0 - 14.2 sec | [facility] | | | Time | | [facility] | [facility] | | | | | | [facility] | | | | | | [facility]ENTER | | | | | | LABORATORY | | + + + + + + | INR | 2.8 (H)Comment: Usual | 0.9 - 1.1 | [facility] | | | | oral anticoagulant | | [facility] | | | | range: 2.0 to 3.0 | | HEART | | | | High level oral | | MEDICAL | | | | anticoagulant range: 2.5 | | CENTER | | | | to 3.5 | | LABORATORY | | + + + + + + + + | Specimen | + + | Blood specimen | | (specimen) | + + + + + + + | Performing | Address | City/State/Zipcode | Phone Number | | Organization | | | | + + + + + | [facility] | [address] | [place] [address] | | | [facility] | | | | | LABORATORY | | | | + + + + + CBC no Differential (01/16/2014 9:02 AM PDT) + + + + + + | Component | Value | Ref Range | Performed | Pathologist | | | | | At | Signature | + + + + + + | WBC | 5.7 | 3.8 - 11.0 K/uL | [facility] | [facility] | [facility] | [facility] | | | | | | [facility] | | | | | | CENTER | | | | | | LABORATORY | | + + + + + + | RBC | 3.18 (L) | 3.70 - 5.10 | [facility] | | | | | M/uL | [facility] | | | | | | [facility] | | | | | | MEDICAL | | | | | | CENTER | | | | | | LABORATORY | | + + + + + + | Hemoglobin | 10.0 (L) | 11.3 - 15.5 | [facility] | | | | | g/dL | [facility] | | | | | | [facility] | | | | | | MEDICAL | | | | | | CENTER | | | | | | LABORATORY | | + + + + + + | Hematocrit | 29.8 (L) | 34.0 - 46.0 % | [facility] | | [facility] | [facility] | | [facility] | | | | | | [facility] | | | | | | [facility]ENTER | | | | | | LABORATORY | | + + + + + + | MCV | 93.5 | 80.0 - 100.0 fL | [facility] [...] + + + + | MCHC | 33.5 | 32.0 - 35.5 | [facility] | | | | | g/dL | [facility] | | | | | | [facility] | | | | | | MEDICAL | | | | | | CENTER | | | | | | LABORATORY | | + + + + + + | RDW-CV | 14.9 | 11.0 - 15.5 % | [facility] | | [facility] | | [facility] | | [facility] | | | | | | [facility] | | | | | | CENTER | | | | | | LABORATORY | | + + + + + + | Platelet | 343 | 150 - 400 K/uL | [facility] [...] + | [facility] | [address] | [place] [address] | | | [facility] | | | | | LABORATORY | | | | + + + + + ECG 12 lead (01/16/2014 5:31 AM PDT) + + | Specimen | + + | | + + + + + | Narrative | Performed At | + + + | RR Interval: | [facility] | | msP-R Interval: msQRSD Interval: msQT Interval: msQTC | [facility] | | Interval: msHeartrate: bpmP [place]: degQRS [place]: degT Wave [place]: | | | degI: 40 [place]: degT: 40 [place]: degT: 40 [place]: degST [place]: | | | degSeverity: - ABNORMAL ECG -INTERP: SINUS RHYTHMINTERP: LEFT | | | AXIS DEVIATIONINTERP: LVH WITH SECONDARY REPOLARIZATION ABNORMALITY | | |P [place]: deg | | |QRS [place]: deg | | |T Wave [place]: deg | | |I: 40 [place]: deg | | |T: 40 [place]: deg | | |T: 40 [place]: deg | | |ST [place]: deg | | |Severity: - ABNORMAL ECG - | | |INTERP: SINUS RHYTHM | | |INTERP: LEFT AXIS DEVIATION | | |INTERP: LVH WITH SECONDARY REPOLARIZATION ABNORMALITY | | + + + + + | Transcriptions | + + | [place] - 01/16/2014 12:00 AM PDT | + + + + + + + | Performing | Address | City/State/Zipcode | Phone Number | | Organization | | | | + + + + + | [facility] | [address] | [place] [address] | [phone] | + + + + + Comprehensive Metabolic Panel (01/16/2014 4:31 AM PDT) + + + + + [...] + + + + | Cl | 98 (L) | 99 - 109 mmol/L | [facility] | [facility] | | | | | | [facility] | | | | | | [facility]ENTER | | | | | | LABORATORY | | + + + + + + | CO2 | 32 (H) | 21 - 28 mmol/L | [facility] | [facility] | | [facility] | | | | | | [facility] | | | | | | CENTER | | | | | | LABORATORY | | + + + + + + | Glucose | 85Comment: Egyptian | 65 - 99 mg/dL | [facility] [...] + + + + | Creatinine | 0.99Comment: IDMS | 0.50 - 1.00 | [facility] | | | | traceable creatinine | mg/dL | [facility] | | | | | | [facility] | | | | | | MEDICAL | | | | | | CENTER | | | | | | LABORATORY | | + + + + + + | Calcium | 9.1 | 8.5 - 10.2 | [facility] | | | | | mg/dL | [facility] | | | | | | [facility] | | | | | | MEDICAL | | | | | | CENTER | | | | | | LABORATORY | | + + + + + + | Total | 6.6 | 6.1 - 7.8 g/dL | [facility] | | | Protein | | | [facility] | | | | | | [facility] | | | | | | MEDICAL | | | | | | CENTER | | | | | | LABORATORY | | + + + + + + | Albumin | 3.4 | 3.3 - 4.8 g/dL | [facility] [...] + + + + | Alkaline | 95 | 35 - 115 U/L | [facility] | | | Phosphatase | | | [facility] | | | | | | [facility] | | | | | | MEDICAL | | | | | | CENTER | | | | | | LABORATORY | | + + + + + + | AST | 9 (L) | 10 - 45 U/L | [facility] | | [facility] | | | | | [facility] | | | | | | [facility] | | | | | | CENTER | | | | | | LABORATORY | | + + + + + + | ALT | 8 (L) | 10 - 65 U/L | [facility] [...] + + + + | Estimated | 55 (L)Comment: GFR <60: | >60 | [facility] | [address] | [place] [address] | | | [facility] | | | | | LABORATORY | | | | + + + + + CBC with Differential (01/16/2014 4:31 AM PDT) + + + + + + | Component | Value | Ref Range | Performed | Pathologist | | | | | At | Signature | + + + + + + | WBC | 4.9 | 3.8 - 11.0 K/uL | [facility] | [facility] | [facility] | | | | | | [facility] | | | | | | [facility]ENTER | | | | | | LABORATORY | | + + + + + + | RBC | 3.04 (L) | 3.70 - 5.10 | [facility] | | | | | M/uL | [facility] | | | | | | [facility] | | | | | | MEDICAL | | | | | | CENTER | | | | | | LABORATORY | | + + + + + + | Hemoglobin | 9.3 (L) | 11.3 - 15.5 | [facility] | | | | | g/dL | [facility] | | | | | | [facility] | | | | | | MEDICAL | | | | | | CENTER | | | | | | LABORATORY | | + + + + + + | Hematocrit | 28.0 (L) | 34.0 - 46.0 % | [facility] | | | [facility] | [facility] | | [facility] | | | | | | [facility] | | | | | | [facility]ENTER | | | | | | LABORATORY | | + + + + + + | MCV | 92.1 | 80.0 - 100.0 fL | [facility] | | | | [facility] | | | | | [facility] | | | | | | [facility] | | | | | | CENTER | | | | | | LABORATORY | | + + + + + + | MCH | 30.5 | 27.0 - 34.0 pg | [facility] | | | | [facility] | [facility] | | [facility] | | | | | | [facility] | | | | | | CENTER | | | | | | LABORATORY | | + + + + + + | MCHC | 33.1 | 32.0 - 35.5 | [facility] | | | | | g/dL | [facility] | | | | | | [facility] | | | | | | MEDICAL | | | | | | CENTER | | | | | | LABORATORY | | + + + + + + | RDW-CV | 14.9 | 11.0 - 15.5 % | [facility] | | | | [facility] | | | | | [facility] | | | | | | [facility] | | | | | | CENTER | | | | | | LABORATORY | | + + + + + + | Platelet | 322 | 150 - 400 K/uL | [facility] [...] + + + + | % | 69.8 | 40.0 - 75.0 % | [facility] | | | Neutrophils | | | [facility] | | | | | | [facility] | | | | | | MEDICAL | | | | | | CENTER | | | | | | LABORATORY | | + + + + + + | % | 13.6 (L) | 15.0 - 48.0 % | [facility] | | | Lymphocytes | | | [facility] | | | | | | [facility] | | | | | | MEDICAL | | | | | | CENTER | | | | | | LABORATORY | | + + + + + + | % Monocytes | 10.3 | 0.0 - 12.0 % | [facility] | | | | [facility] | | | | | | [facility] | | | | | | [facility] | | | | | | CENTER | | | | | | LABORATORY | | + + + + + + | % | 5.5 | 0.0 - 7.0 % | [facility] | | | Eosinophils | | | [facility] | | | | | | HEART | | | | | | MEDICAL | | | | | | CENTER | | | | | | LABORATORY | | + + + + + + | % Basophils | 0.8 | 0.0 - 2.0 % | [facility] | | | | | | [facility] | | | | | | [facility] | | | | | | [facility] | | | | | | CENTER | | | | | | LABORATORY | | + + + + + + | Absolute | 3.40 | 1.90 - 7.40 | [facility] | | | Neutrophils | | K/uL | [facility] | | | | | | [facility] | | | | | | MEDICAL | | | | | | CENTER | | | | | | LABORATORY | | + + + + + + | Absolute | 0.70 (L) | 1.00 - 3.90 | [facility] | [...] + + | Absolute | 0.30 | 0.00 - 0.50 | [facility] | [...] | + + + + + | [facility] | [address] | [place] [address] | | | [facility] | | | | | LABORATORY | | | | + + + + + Magnesium (01/16/2014 4:31 AM PDT) + +-------+ + + + | Component | Value | Ref Range | Performed | Pathologist | | | | | At | Signature | + +-------+ + + + | Magnesium | 2.4 | 1.7 - 2.4 mg/dL | [facility] | | | | [...] + | [facility] | [address] | [place] [address] | | | [facility] | | | | | LABORATORY | | | | + + + + + documented in this encounter Visit Diagnoses + + | Diagnosis | + + | Paroxysmal atrial fibrillation (HCC) - Primary Atrial fibrillation | + + | Coronary artery disease Coronary atherosclerosis of unspecified type of vessel, | | [place] or graft | + + documented in this encounter Administered Medications + +--------+ +--------+------+------+ | Medication Order | MAR | Action | Dose | Rate | Site | | | Action | Date | | | | + +--------+ +--------+------+------+ | acetaminophen (TYLENOL) tablet | Given | 01/18/20 | 650 mg | | | | 650 mg 650 mg, Oral, EVERY 4 | | 14 8:59 | | | | | HOURS PRN, Pain, or fever >= 38.3 | | AM PDT | | | | | C (101.5 F), Starting Mon01/15/14 | | | | | | | at 1845 | | | | | | + +--------+ +--------+------+------+ +-------+ +--------+---+---+ | Given | 01/17/20 | 650 mg | | | | | 14 10:42 | | | | | | AM PDT | | | | +-------+ +--------+---+---+ +---+---+ | | | +---+---+ + +-------+ +--------+---+---+ | amiodarone (PACERONE) tablet | Given | 01/18/20 | 200 mg | | | | 200 mg 200 mg, Oral, 2 TIMES | | 14 8:59 | | | | | DAILY, First dose on Mon01/15/14 | | AM PDT | | | | | at 2100 | | | | | | + +-------+ +--------+---+---+ +-------+ +--------+---+---+ | Given | 01/17/20 | 200 mg | | | | | 14 8:12 | | | | | | PM PDT | | | | +-------+ +--------+---+---+ | Given | 01/17/20 | 200 mg | | | | | 14 8:46 | | | | | | AM PDT | | | | +-------+ +--------+---+---+ +---+---+ | | | +---+---+ + +-------+ +--------+---+---+ | amiodarone (PACERONE) tablet | Given | 01/17/20 | 400 mg | | | | 400 mg 400 mg, Oral, ONCE, [place] | | 14 6:33 | | | | | 01/16/14 at 1845, For 1 dose | | PM PDT | | | | + +-------+ +--------+---+---+ +---+---+ | | | +---+---+ + +-------+ +-------+---+---+ | atorvaSTATin (LIPITOR) tablet | Given | 01/18/20 | 40 mg | | | | 40 mg 40 mg, Oral, DAILY, First | | 14 8:58 | | | | | dose on [place] 01/16/14 at 0900 | | AM PDT | | | | + +-------+ +-------+---+---+ +-------+ +-------+---+---+ | Given | 01/17/20 | 40 mg | | | | | 14 8:46 | | | | | | AM PDT | | | | +-------+ +-------+---+---+ +---+---+ | | | +---+---+ + +-------+ +-------+---+---+ | famotidine (PEPCID) tablet 20 | Given | 01/18/20 | 20 mg | | | | mg 20 mg, Oral, DAILY, First | | 14 8:59 | | | | | dose on [place] 01/16/14 at 0900 | | AM PDT | | | | + +-------+ +-------+---+---+ +-------+ +-------+---+---+ | Given | 01/17/20 | 20 mg | | | | | 14 8:46 | | | | | | AM PDT | | | | +-------+ +-------+---+---+ +---+---+ | | | +---+---+ + +-------+ +--------+---+---+ | ferrous gluconate (FERGON) | Given | 01/18/20 | 324 mg | | | | tablet 324 mg 324 mg, Oral, | | 14 8:58 | | | | | TIMES DAILY WITH BREAKFAST & | | AM PDT | | | | | DINNER, First dose on Mon01/15/14 | | | | | | | at 2115 | | | | | | + +-------+ +--------+---+---+ +-------+ +--------+---+---+ | Given | 01/17/20 | 324 mg | | | | | 14 5:00 | | | | | | PM PDT | | | | +-------+ +--------+---+---+ | Given | 01/17/20 | 324 mg | | | | | 14 8:46 | | | | | | AM PDT | | | | +-------+ +--------+---+---+ +---+---+ | | | +---+---+ + +-------+ +------+---+---+ | folic acid tablet 1 mg 1 mg, | Given | 01/18/20 | 1 mg | | | | Oral, DAILY, First dose on [place] | | 14 8:58 | | | | | 01/16/14 at 0900 | | AM PDT | | | | + +-------+ +------+---+---+ +-------+ +------+---+---+ | Given | 01/17/20 | 1 mg | | | | | 14 8:46 | | | | | | AM PDT | | | | +-------+ +------+---+---+ +---+---+ | | | +---+---+ + +-------+ +-------+---+---+ | furosemide (LASIX) tablet 40 mg | Given | 01/18/20 | 40 mg | | | | 40 mg, Oral, DAILY, First dose | | 14 8:58 | | | | | on [place] 01/16/14 at 0900 | | AM PDT | | | | + +-------+ +-------+---+---+ +-------+ +-------+---+---+ | Given | 01/17/20 | 40 mg | | | | | 14 8:46 | | | | | | AM PDT | | | | +-------+ +-------+---+---+ +---+---+ | | | +---+---+ + +-------+ +--------+---+---+ | levothyroxine (SYNTHROID, | Given | 01/18/20 | 75 mcg | | | | LEVOTHROID) tablet 75 mcg 75 | | 14 6:30 | | | | | mcg, Oral, DAILY BEFORE | | AM PDT | | | | | BREAKFAST, First dose on [place] | | | | | | | 01/16/14 at 0730, Give before | | | | | | | breakfast., | | | | | | + +-------+ +--------+---+---+ +-------+ +--------+---+---+ | Given | 01/17/20 | 75 mcg | | | | | 14 6:04 | | | | | | AM PDT | | | | +-------+ +--------+---+---+ +---+---+ | | | +---+---+ + +-------+ +--------+---+---+ | magnesium oxide (MAG-OX) tablet | Given | 01/18/20 | 400 mg | | | | 400 mg 400 mg, Oral, DAILY, | | 14 8:58 | | | | | First dose on Mon01/16/14 at 0900 | | AM PDT | | | | + +-------+ +--------+---+---+ +-------+ +--------+---+---+ | Given | 01/17/20 | 400 mg | | | | | 14 8:46 | | | | | | AM PDT | | | | +-------+ +--------+---+---+ +---+---+ | | | +---+---+ + +-------+ +-------+---+---+ | metoprolol tartrate (LOPRESSOR) | Given | 01/18/20 | 25 mg | | | | tablet 25 mg 25 mg, Oral, 2 | | 14 8:59 | | | | | TIMES DAILY, First dose on Mon | | AM PDT | | | | | 01/15/14 at 2115 | | | | | | + +-------+ +-------+---+---+ +-------+ +-------+---+---+ | Given | 01/17/20 | 25 mg | | | | | 14 8:12 | | | | | | PM PDT | | | | +-------+ +-------+---+---+ | Given | 01/17/20 | 25 mg | | | | | 14 8:46 | | | | | | AM PDT | | | | +-------+ +-------+---+---+ +---+---+ | | | +---+---+ + +-------+ +------+---+---+ | morphine injection 2-6 mg 2-6 | Given | 01/17/20 | 1 mg | | | | mg, Intravenous, EVERY 2 HOURS | | 14 7:16 | | | | | PRN, Pain, Starting Mon01/15/14 at | | PM PDT | | | | | 1845, Slow IV push, not faster | | | | | | | than 2 mg/minute. If ineffective | | | | | | | or not tolerated, use | | | | | | | hydromorphone IV if ordered., | | | | | | + +-------+ +------+---+---+ +---+---+ | | | +---+---+ + +-------+ +--------+---+---+ | potassium chloride (K-DUR) ER | Given | 01/18/20 | 10 mEq | | | | tablet 10 mEq 10 mEq, Oral, 2 | | 14 8:59 | | | | | TIMES DAILY, First dose on Mon | | AM PDT | | | | | 01/15/14 at 2115 | | | | | | + +-------+ +--------+---+---+ +-------+ +--------+---+---+ | Given | 01/17/20 | 10 mEq | | | | | 14 8:12 | | | | | | PM PDT | | | | +-------+ +--------+---+---+ | Given | 01/17/20 | 10 mEq | | | | | 14 12:15 | | | | | | PM PDT | | | | +-------+ +--------+---+---+ +---+---+ | | | +---+---+ + +-------+ +------+---+---+ | warfarin (COUMADIN) tablet 3 mg | Given | 01/17/20 | 3 mg | | | | 3 mg, Oral, Once - Warfarin, | | 14 7:53 | | | | | First dose on Mon01/16/14 at 1800, | | PM PDT | | | | | For 1 dose | | | | | | + +-------+ +------+---+---+ +---+---+ | | | +---+---+ + +-------+ +------+---+---+ | warfarin (COUMADIN) tablet 4 mg | Given | 01/16/20 | 4 mg | | | | 4 mg, Oral, Once - Warfarin, | | 14 8:57 | | | | | First dose on Mon01/15/14 at 2045, | | PM PDT | | | | | For 1 dose | | | | | | + +-------+ +------+---+---+ +---+---+ | | | +---+---+ documented in this encounter
--- OUTSIDE RECORDS SUMMARY | ~2019-07-30 | XMS | Encounter Summary ---
Demographics + + + | Address | [address] | | | [place] [address] | + + + | Home Phone | | + + + | Preferred Language | Unknown | + + + | Marital Status | | + + + | Tenriism Affiliation | 1001 | + + + | Race | Unknown | + + + | Ethnic Group | Unknown | + + + Author + + + | Author | [facility] | | | and [place] | + + + | Organization | [facility] | | | [...] Team Providers + +------+ + | Care Crozer Name | Role | Phone | + +------+ + | Doug García MD | PCP | | + +------+ + Reason for Visit + + + | Reason | Comments | + + + | Hospital Follow-up | | + + + Encounter Details +--------+ + + + + | Date | Type | Department | Care Team | Description | +--------+ + + + + | 08/28/ | Telephone | [facility] | [facility] | Hospital Follow-up | | 2018 | | Card[facility] | [address] | | | | | [address] | [address] | | | | | [address] [place] | [place] | | | | | [address] | [address] | | | | | [phone] | [phone] | | | | | | | [...]
--- OUTSIDE RECORDS SUMMARY | ~2019-07-30 | XMS | Encounter Summary ---
Demographics + + + | Address | [address] | | | [place] [address] | + + + | Home Phone | | + + + | Preferred Language | Unknown | + + + | Marital Status | | + + + | Worship Affiliation | 1001 | + + + | Race | Unknown | + + + | Ethnic Group | Unknown | + + + Author + + + | Author | [facility] | | | and [place] | + + + | Organization | [facility] | | | [...] Team Providers + +------+ + | Care Live Study Manager Name | Role | Phone | + +------+ + | Doug García MD | PCP | | + +------+ + Encounter Details +--------+---------+ + + + | Date | Type | Department | Care Team | Description | +--------+---------+ + + + | 08/25/ | Surgery | [facility] | Fly Christianson, | CV [facility] | | 2018 | | [facility] CV | MD [address] | | | | | INTRA OP [address] | [address] [place], | | | | | Ave [place] | [place] [address] | | | | | [id number] | [phone] | | | | | [phone] | | | +--------+---------+ + + + [...] + + + | Blood Pressure | 137/61 | 08/26/2017 8:12 AM | | | | | PST | | + + + + + | Pulse | 70 | 08/26/2017 8:12 AM | | | | | PST | | + + + + + | Temperature | 35.8 C (96.4 F) | 08/26/2017 8:12 AM | | | | | PST | | + + + + + | Respiratory Rate | 16 | 08/26/2017 8:12 AM | | | | | PST | | + + + + + | Oxygen Saturation | 98% | 08/26/2017 8:12 AM | | | | | PST | | + + + + + | Inhaled Oxygen | - | - | | | Concentration | | | | + + + + + | Weight | 69.3 kg (152 lb 12.5 | 08/25/2017 9:21 PM | | | | oz) | PST | | + + + + + | Height | 165.1 cm (5' 5") | 08/24/2017 4:19 PM | | | | | PST | | + + + + + | Body Mass Index | 25.42 | 08/24/2017 4:19 PM | | | | | PST [...] documented as of this encounter Discharge Summaries Fly Christianson MD - 08/26/2017 8:49 AM PSTFormatting of this note might be different fr om the original. PATIENT NAME: Markie Pinto : 1940: AGE: 76 y.o. ADMISSION DATE: 08/24/2017 DISCHARGE DATE: 08/26/2017 DATE OF SERVICE: 08/26/2017 PRIMARY CARE: MD Dana Thao ARNP DISCHARGE SUMMARY Principal Hospital Problem/Admission Diagnoses: NSTEMI (non-ST elevated myocardial infarction) (HCC) Discharge Diagnoses: 1. NSTEMI: A. Minimal troponin leak in the face of rapid a-fib; suspected Type II DE B. Heart cath with prior closure of two of her SVGs (see below). C. Preserved EF at 60% D. Imdur added to her med regime 2. Known CAD: A. CABG X 4 in 2013 B. Had stopped her ASA and statin previously - both restarted. C. Preserved EF. 3. Paroxysmal atrial fibrillation: A. Single episode with RVR at [place] with spontaneous conversion to (and maintenance of) NSR. B. With prior embolic CVAs, will start Xarelto (no prior history of bleeding issues). 4. HTN, well controlled 5. MR: A. Stable and remains moderate on repeat ECHO this admit. 6. Prior CVA X 2: A. MRI 07/18/17 with acute embolic event. 7. Chronic diastolic CHF Hospital Course: 76-year-old female with known coronary artery disease, including coronary artery bypass gra fting in 2013. She has ongoing cardiac risk factors include hypertension, obstructive sleep apnea, and paroxysmal atrial fibrillation. She has been somewhat noncompliant with medicat ions, having stopped her aspirin and statin drugs at some point subsequent to her CABG, and not using her CPAP at night. Ms. Pinto presented to the emergency department in [place] on August 23 with complaints o f chest pain, relieved with nitroglycerin, but in the face of rapid atrial fibrillation. Sh e had noticed that she was having heart "fluttering" for the week prior to her presentation. While in the emergency department, she converted spontaneously to normal sinus rhythm and had no further chest pain. However, her initial troponin was mildly positive. She was subs equently transported to [facility] for further evaluation. Ms. Pinto had no further chest discomfort following admission. She underwent a nuclear str ess study for risk stratification, which was high risk, with suggestion of lateral ischemia. An echocardiogram was obtained and revealed her mitral regurgitation to be stable and stil l moderate, and she was taken later on the day following admission for left heart catheteriz ation. She was found to have closure of 2 of her saphenous vein grafts, but with no further chest pain, the decision was made to manage her medically. It was thought that her troponi n elevation was secondary to her rapid A. fib. She was started on long-acting nitrates. Ms. Pinto has history of prior embolic CVAs, so it is suspected that her atrial fibrillatio n burden is greater than what was seen while she was here at the hospital. In light of this , she will be started on Xarelto once daily. She has no history of bleeding issues. She wa s provided a first dose prior to her discharge. She was discharged home on the morning of 2017. Follow-[place]: [place] [id number] [facility] [id number] [facility] [id number] Message left for schedulers to call you for a 4-6 week f/u appointment. Doug García MD [address] [facility] [address] Schedule an appointment as soon as possible for a visit in 1 week Disposition: Home/Self Care Condition at Discharge: Stable Discharge Medications New Medications Details aspirin 81 MG tablet Take 1 tablet by mouth Daily. Start: 08/27/2017 atorvaSTATin 40 mg tablet Take 1 tablet by mouth nightly. aka: LIPITOR isosorbide mononitrate 30 mg ER tablet Take 1 tablet by mouth Daily. aka: IMDUR Start: 08/27/2017 Unchanged Medications Details CAYENNE PEPPER PO Take by mouth Daily. COQ-10 PO Take by mouth Daily. cyanocobalamin 50 MCG tablet Take 50 mcg by mouth Daily. aka: VITAMIN B-12 GNP MAGNESIUM 250 MG tablet Generic drug: magnesium (as oxide) Take 500 mg by mouth 3 times daily. hydroCHLOROthiazide 25 mg tablet Take 1 tablet by mouth Daily. levothyroxine 100 mcg tablet TAKE ONE TABLET BY MOUTH ONCE DAILY IN THE MORNING BEFORE BREAKFAST aka: SYNTHROID meclizine 25 mg tablet Take 1 tablet by mouth every 6 hours as needed. aka: ANTIVERT metoprolol succinate 50 mg 24 hr tablet Take 1 tablet by mouth Daily. aka: TOPROL-XL nitroglycerin 0.[address] 1 tablet under the tongue every 5 minutes as needed for Chest pain. aka: NITROSTAT potassium 99 mg tablet Take 99 mg by mouth Daily. thyroid 325 MG Tabs Take 32.5 mg by mouth Daily. aka: NATURE-THROID, WESTHROID vitamin C 1000 MG tablet Take 1,000 mg by mouth Daily. VITAMIN D MAINTENANCE PO Take by mouth Daily. zinc sulfate 220 mg capsule Take 220 mg by mouth 2 times daily. Procedures In Hospital: 1. ECHO 08/25/17: 1. There is moderate concentric left ventricular hypertrophy. The left ventricular ejection fraction is grossly normal. The estimated ejection fraction is 65%. 2. The right ventricle is normal in size and function. 3. The left atrium is moderately dilated. 4. There is moderate central mitral regurgitation and mild effective mitral stenosis. The mitral valve leaflets are thickened and there is dense posterior annular calcification. There is markedly reduced excursion of the posterior leaflet. 5. Aortic valve sclerosis with very minor resting gradients and mild aortic insufficiency. 6. Unfortunately pulmonary artery pressures are not well estimated on this study. 2. Nuclear stress study 08/25/17: Myocardial perfusion results: 1. Myocardial perfusion imaging is abnormal for significant lateral wall ischemia. 2. Ejection fraction calculated at 65 %. 4. By imaging criteria, this is a moderate to high risk study risk study. 3. Left heart cath 08/25/[address] Christianson: CONCLUSIONS: 1. diffuse asa'[place] coronary artery disease with 100% mid LAD, 100% OM 2, 70% distal circum flex, 100% RCA 2. patent VOGEL to LAD, patent saphenous vein graft to distal right coronary artery; occlu ded saphenous vein graft to diagonal, occluded saphenous vein graft OM 2 3 observed LV function with EF approximate 60% RECOMMENDATIONS continued medical treatment. Lateral wall ischemia on nuclear stress stud y likely to persist in light of occluded OM 2 vessel with collaterals. Not a candidate for re-intervention of the chronically occluded OM 2 branch. Or diagonal arteries. Discharge Exam: Vital Signs: Temp: 35.8 C (96.4 F) BP: 137/61 Pulse: 70 Resp: 16 SpO2: 98 % Last Wt. Before discharge: Weight: 69.3 kg (152 lb 12.5 oz) Wt. Admission: Weight: 77.2 kg (170 lb 3.1 oz) GENERAL: Pleasant, in no apparent distress NECK: Supple. No JVD CHEST: Good inspiratory effort with no crackles, rhonchi, or wheezes. CARDIAC: Normal S1 and S2. No murmurs, rubs or gallops. ABDOMEN: Soft, non-tender, non distended with normal, active bowel sounds. EXTREMITIES: No clubbing, cyanosis, or edema. Right femoral access site without hematoma o r ecchymosis. PULSES: Right: femoral 2+ DP 2+, PT 2+ Left: femoral 2+ DP 2+, PT 2+ NEUROLOGIC: Non-focal. SKIN: No rashes or skin breakdown. TELE: NSR Labs: Recent Labs 08/26/17 0359 08/25/17 0222 08/24/17 1837 08/24/17 1220 08/24/17 0925 WBC 9.9 -- -- -- 5.2 HGB 11.0* -- -- -- 12.7 HCT 32.7* -- -- -- 36.6 NA 136 137 -- -- 138 K 3.8 3.8 -- -- 3.6 CL 102 102 -- -- 99 CO2 24 24 -- -- 29 BUN 24 21 -- -- 23* CREA 1.06* 1.19* -- -- 1.44* GLU 141* 136* -- -- 180* CALCIUM 9.6 9.4 -- -- 9.5 TROPONIN -- 0.03 0.03 0.23* 0.25* Lab Results Component Value Date CHOL 200 (H) 08/07/2017 LDL 108 (H) 08/07/2017 HDL 63 08/07/2017 TRIG 145 08/07/2017 AVS Discharge Instructions: Discharge Instructions Resume usual home medication. New medications at time of discharge include daily aspirin, atorvastatin, and Imdur. No strenuous activity for 3-5 days secondary to your heart cath site. If you have recurrent atrial fibrillation (fast heart rates) in the future, tried taking an extra dose of metoprolol. If it is persistent, call our office. Message was left for our schedulers to contact you for a 4-6 week jraeua-ij-xy sure and tel l them about when you will be in [place] and it will work for you. Follow-up with your primary care provider in one to 2 weeks-please call for an appointment. Heart healthy diet. Discharge References/Attachments Atrial Fibrillation, Discharge Instructions for (Greenlandic) If patient has any further questions or concerns prior to above, instructed to call our off ice. Time spent on discharge planning:greater than 30 minutes Signed by: ABBY Farnsworth 08/26/2017, 8:49 Addendum: I have seen and examined the patient and agree with the above findings and assessment. I h ave added my findings and comments to the note. Plan: 1. D/C plans as outlined. Resume anticoagulation with hx of CVA presumed embolic Fly Christianson MD [facility] Portions of this chart were created with WARSTUFF voice recognition software. Occasional wro ng-word or "sound-alike" substitutions may have occurred due to the inherent limitations of voice recognition software. Please read the chart carefully and recognize, using context, w here those substitutions have occurred. [facility] Main Office - [address], [address] [place], [place] [address] Office: Medical Records [facility], [place] [address] Main: Physician referral and transfer line: Physician referral fax line: Medical Records phone: Medical Records fax: [address] [phone] Main: Medical Records Electronically signed by Fly Christianson MD at 2017 10:51 AM PSTdocumented in this encounter Discharge Instructions Instructions Dana Butler ARNP - 08/25/2017Resume usual home medication. New medications at time of discharge include daily aspirin, atorvastatin, Xarelto and Imdur . No strenuous activity for 3-5 days secondary to your heart cath site. If you have recurrent atrial fibrillation (fast heart rates) in the future, tried taking an extra dose of metoprolol. If it is persistent, call our office. Message was left for our schedulers to contact you for a 4-6 week cvfrpy-[id number] sure and tel l them about when you will be in [place] and it will work for you. Follow-up with your primary care provider in one to 2 weeks-please call for an appointment. Heart healthy diet. AttachmentsThe following attachments cannot be sent through Care Everywhere.Atrial Fibrilla tion, Discharge Instructions for (Greenlandic)documented in this encounter Medications at Time of [...] + + + +---------+ + + | CapsicumLinda, | Take by mouth | | 0 [...] documented as of this encounter Progress Notes Aniket Mcleod ARNP - 08/25/2017 9:17 AM PST PATIENT NAME: Markie Pinto : 1940: AGE: 76 y.o. ADMISSION DATE: 08/24/2017 Hospital Day: Hospital Day: 2 Code Status: Full Code DATE OF SERVICE: 08/25/2017 ABBY Mckeon CARDIOLOGY DAILY PROGRESS NOTE PRIMARY HOSPITAL PROBLEM: NSTEMI (non-ST elevated myocardial infarction) (HCC) CHIEF COMPLAINT: NSTEMI and PAF. ASSESSMENT AND PLAN * NSTEMI (non-ST elevated myocardial infarction) (HCC) Assessment & Plan Troponin peak at 0.25 and trending down. Long standing hx of CAD including NSTEMI requiring stent to circuflex and then 4V CABG with TEMI to LAD, SVG to OM, diagonal and RCA. Her EF was 50% with inferior wall hypokinesis at that time. She has a history of paroxysmal Afib which was felt to be isolated to her post-op CABG caity od. Her history is also notable for CVA of unknown date, head CT performed in 2011 showed e xtensive small vessel ischemic changes and chronic lacunar infarcts. She has mild bilateral carotid stenosis documented less than a year ago. Paroxysmal atrial fibrillation (HCC) Assessment & Plan Admitted to [facility] in atrial fibrillation with RVR with rate in 130s. Converted to normal sinus rhythm there after 5 mg IV metoprolol. K 3.8. Mag 2.3. TSH normal. [id number] Risk Score: 8 - 10.8% Estimated Stroke Risk Per Year Plan: Continue heparin gtt Increase metoprolol back to home dose of 50 mg (now hypertensive back in normal sinus rhyth m). Need to maintain good rate control as her RVR may have caused troponin leak, will investiga te further anti-arrhythmics after echocardiogram results. Will need to discuss embolic prophylaxis with CHADSVASC score 8. Coronary artery disease Assessment & Plan S/p CABG x[place] [address] Viera. Troponin peaked at 0.25 in face of atrial fibrillation with RVR, now down to 0.03. On heparin gtt. Currently chest pain free. Plan: Continue heparin Suspect demand ischemia. NPO for Nuclear stress test now. Echo pending. Benign essential hypertension Assessment & Plan Hypertensive on admit (170s-190s/90s) Metoprolol and HCTZ home doses decreased over past week due to hypotension in setting of li yolande atrial fibrillation with RVR. SBP 134-153 today. Plan: Resumed home doses of metoprolol and HCTZ. Mitral regurgitation Assessment & Plan 11/2016 Echo with moderate mitral regurgitation . Plan: Echo pending. Cerebrovascular accident (CVA) due to occlusion of right middle cerebral artery (HCC) Assessment & Plan History stroke with MRI on 07/18/17 showing possible small right parietal subcortical and le ft frontal parietal subcortical acute infarcts and old infarcts. Plan: Continue heparin gtt Chronic diastolic CHF (congestive heart failure), NYHA class 2 ([facility]) Assessment & Plan BNP 1,140 at [facility]. Creatinine trending down to 1.19 from 1.44 with 1/2 NS at 50 ml/hr. Lungs sound clear, but CXR with findings of mild pleural effusions. Denies SOB or orthopnea. No peripheral edema noted. Plan: Check echo to reassess mitral regurgitation. Strict I&O, 2GM NA diet, daily weights. SUBJECTIVE DATA PATIENT SYMPTOMS/24 HOUR EVENTS: Denies SOB, chest pressure, or dizziness. During stress test she complained of chest pain radiating to jaw and bilateral arms, nausea, and dizziness . REVIEW OF SYSTEMS: CV: negative Resp: no cough, shortness of breath, or wheezing OBJECTIVE DATA TELEMETRY: SR with incomplete L BBB. MEDICATIONS: Reviewed today Scheduled PRN aminophylline vitamin C 1,000 mg Oral Daily aspirin 162.5 mg Oral Daily cyanocobalamin 50 mcg Oral Daily dipyridamole hydroCHLOROthiazide 25 mg Oral Daily levothyroxine 100 mcg Oral QAM AC metoprolol succinate 50 mg Oral Daily nitroglycerin heparin infusion 850 Units/hr (08/25/17 0409) acetaminophen, bisacodyl, heparin, magnesium hydroxide, meclizine, morphine, nitroglycerin , ondansetron, polyethylene glycol, senna IMAGING: Reviewed today Xr Chest Ap Portable Result Date: 08/24/2017 CHEST PORTABLE ONE VIEW CLINICAL INFORMATION: Chest pain that started this morning. Histor y of quadruple bypass. Patient has been around secondhand smoke for over 60 years. COMPARISO N: Chest two views on 01/30/2014. FINDINGS: Single portable AP semi erect film of chest was o btained. Overlying leads are seen. Patient is again status post open heart surgery. Trache a is midline. Cardiomegaly is again seen. Heart is again obscuring left mid to lower lung. There is no evidence of pneumothorax. Increased interstitial markings are seen in right i nfrahilar region in right lower lobe and visualized left infrahilar region in left lower lob e suspicious for infiltrates/pneumonitis. PA and lateral erect chest for followup is recomm ended. Right costophrenic sulcus appears grossly clear. There is haziness of left costophr enic sulcus, query mild pleural effusion or due to technique and overlying soft tissues. Ad jacent osseous structures are essentially unchanged from prior exam. IMPRESSION: 1. Persiste nt cardiomegaly. 2. Suspicious for infiltrates/pneumonitis in right infrahilar region in rig ht lower lobe and visualized left infrahilar region in left lower lobe. Clinical correlatio n is recommended. 3. Haziness of left costophrenic sulcus, query mild pleural effusion or du e to technique and overlying soft tissues. Signed by: DO Contreras Vivienne LABS: Reviewed today Recent Labs 08/25/17 0222 08/24/17 1837 08/24/17 1220 08/24/17 0925 WBC -- -- -- 5.2 HGB -- -- -- 12.7 HCT -- -- -- 36.6 PLT -- -- -- 186 NA 137 -- -- 138 K 3.8 -- -- 3.6 CL 102 -- -- 99 CO2 24 -- -- 29 BUN 21 -- -- 23* CREA 1.19* -- -- 1.44* GLU 136* -- -- 180* CALCIUM 9.4 -- -- 9.5 TROPONIN 0.03 0.03 0.23* 0.25* Lab Results Component Value Date CHOL 200 (H) 08/07/2017 LDL 108 (H) 08/07/2017 HDL 63 08/07/2017 TRIG 145 08/07/2017 VITAL SIGNS: Reviewed today Vitals Current Average / Min / Max Temp 36.1 C (96.9 F) Temp Min: 3 C (37.4 F) Max: 36.4 C (97.5 F) BP 153/85 BP Min: 115/94 Max: 194/95 HR 64 Pulse Av.2 Min: 61 Max: 134 RR 16 Resp Av.6 Min: 9 Max: 20 Sats 93 % on L/min room air Weight 77.2 kg (170 lb 3.1 oz) Admit: 77.2 kg (170 lb 3.1 oz) INTAKE/OUTPUT Intake/Output Summary (Last 24 hours) at 08/25/17 0917 Last data filed at 08/25/17 0700 Gross per 24 hour Intake 758 ml Output 300 ml Net 458 ml PHYSICAL EXAM Admit Weight: Weight: 77.2 kg (170 lb 3.1 oz) Current weight: Weight: 77.2 kg (170 lb 3.1 oz) Body mass index is 28.32 kg/m. GENERAL: Pleasant, talkative in no acute distress. HEENT: Conjunctivae and lids are normal in appearance. Mucous membranes moist without pall or or cyanosis. NECK: Supple. No JVD. CHEST: Respiratory effort is normal. Clear to auscultation without crackles, rhonchi, or w heezes. CARDIAC: RRR, Normal S1 and S2, No murmurs, rubs or gallops. Unable to appreciate 1/6 sys tolic murmur. ABDOMEN: Soft, non-tender, nondistended with normal, active bowel sounds. EXTREMITIES: No clubbing, cyanosis, or edema. PULSES: Right: DP 2+, PT 2+ Left: DP 2+, PT 2+ NEUROLOGIC: Alert and oriented to time, place and person. Normal affect. Signed by: ABBY Mckeon 08/25/2017, 9:17 Portions of this chart were created with WARSTUFF voice recognition software. Occasional wro ng-word or "sound-alike" substitutions may have occurred due to the inherent limitations of voice recognition software. Please read the chart carefully and recognize, using context, w here those substitutions have occurred.Electronically signed by ABBY Mckeon at 9:20 AM PSTdocumented in this encounter Plan of Treatment + + +--------+ + + | Name | Type | Priori | Associated Diagnoses | Date/Time | | | | ty | | | + + +--------+ + + | CV Cardiac Procedure | Cardiac | Routin | NSTEMI (non-ST | 08/25/2017 2:12 PM | | | Cath | e | elevated myocardial | PST | | | | | infarction) (HCC) | | + + +--------+ + + documented as of this encounter Procedures + +--------+ + + + | Procedure Name | Priori | Date/Time | Associated Diagnosis | Comments | | | ty | | | | + +--------+ + + + | CBC NO DIFFERENTIAL | Routin | 08/26/2017 | | Results for this | | | e | 3:59 AM | | procedure are in the | | | | PST | | results section. | + +--------+ + + + | BASIC METABOLIC | Routin | 08/26/2017 | | Results for this | | PANEL | e | 3:59 AM | | procedure are in the | | | | PST | | results section. | + +--------+ + + + | ECHO COMPLETE | SHAWN | 08/25/2017 | | Results for this | | | | 5:00 PM | | procedure are in the | | | | PST | | results section. | + +--------+ + + + | ECG 12 LEAD | Routin | 08/25/2017 | | Results for this | | | e | 2:36 PM | | procedure are in the | | | | PST | | results section. | + +--------+ + + + | PTT | Timed | 08/25/2017 | | Results for this | | | | 9:57 AM | | procedure are in the | | | | PST | | results section. | + +--------+ + + + | NM NUCLEAR STRESS | Routin | 08/25/2017 | | Results for this | | TEST (EXERCISE) | e | 9:45 AM | | procedure are in the | | | | PST | | results section. | + +--------+ + + + | LVEF VALUE | Routin | 08/25/2017 | | Results for this | | | e | 9:45 AM | | procedure are in the | | | | PST | | results section. | + +--------+ + + + | TSH, REFLEX FREE T4 | Routin | 08/25/2017 | | Results for this | | | e | 2:22 AM | | procedure are in the | | | | PST | | results section. | + +--------+ + + + | TROPONIN I | Routin | 08/25/2017 | | Results for this | | | e | 2:22 AM | | procedure are in the | | | | PST | | results section. | + +--------+ + + + | PTT | Timed | 08/25/2017 | | Results for this | | | | 2:22 AM | | procedure are in the | | | | PST | | results section. | + +--------+ + + + | MAGNESIUM | Routin | 08/25/2017 | | Results for this | | | e | 2:22 AM | | procedure are in the | | | | PST | | results section. | + +--------+ + + + | BASIC METABOLIC | Routin | 08/25/2017 | | Results for this | | PANEL | e | 2:22 AM | | procedure are in the | | | | PST | | results section. | + +--------+ + + + | LVEF VALUE | Routin | 08/25/2017 | | Results for this | | | e | | | procedure are in the | | | | | | results section. | + +--------+ + + + | TROPONIN I | Routin | 08/24/2017 | | Results for this | | | e | 6:37 PM | | procedure are in the | | | | PST | | results section. | + +--------+ + + + | PTT | Timed | 08/24/2017 | | Results for this | | | | 6:37 PM | | procedure are in the | | | | PST | | results section. | + +--------+ + + + | MAGNESIUM | STAT | 08/24/2017 | | Results for this | | | | 6:37 PM | | procedure are in the | | | | PST | | results section. | + +--------+ + + + | ECG 12 LEAD | STAT | 08/24/2017 | | Results for this | | | | 4:47 PM | | procedure are in the | | | | PST | | results section. | + +--------+ + + + documented in this encounter Results Basic Metabolic Panel (08/26/2017 3:59 AM PST) + + + + + [...] + + + + | CO2 | 24 | 21 - 28 mmol/L | [facility] | | [facility] | | | | | | [facility] | | + + + + + + | Glucose | 141 (H)Comment: Peruvian | 65 - 99 mg/dL | [facility] [...] + + + + | BUN | 24 | 8 - 25 mg/dL | [facility] | | [facility] | | | | | | [facility] | | + + + + + + | Creatinine | 1.06 (H)Comment: IDMS | 0.50 - 1.00 | [facility] | | | | traceable creatinine | mg/dL | [facility] | | [facility] | | | | [facility] | | | | | | [facility] | | + + + + + + | Calcium | 9.6 | 8.5 - 10.2 | [facility] | | | | | mg/dL | [facility] | | [facility] | | | | | [facility] | | | | | | LABORAT[facility] | | + + + + + + | Anion Gap | 10 | 5 - 16 mmol/L | [facility] [...] + | MONIKA MELCHOR | [address] | [place] [address] | | | [facility] [facility] | | | | | LABORATORY | | | | + + + + + CBC no Differential (08/26/2017 3:59 AM PST) + + + + + + | Component | Value | Ref Range | Performed | Pathologist | | | | | At | Signature | + + + + + + | WBC | 9.9 | 3.8 - 11.0 K/uL | [facility] | | | [facility] | | | | | | LABORATORY | | + + + + + + | RBC | 3.52 (L) | 3.70 - 5.10 | [facility] | | | | | M/uL | [facility] | | [facility] | | | [facility] | | [facility] | | | | | | LABORATORY | | + + + + + + | Hemoglobin | 11.0 (L) | 11.3 - 15.5 | [facility] | | | | | g/dL | [facility] | [facility] | | | [facility] | | | | | | [facility] | | | | | | LABORATORY | | + + + + + + | Hematocrit | 32.7 (L) | 34.0 - 46.0 % | [facility] | [facility] | | [facility] | | [facility] | | | | | | LABORATORY | | + + + + + + | MCV | 92.7 | 80.0 - 100.0 fL | [facility] [...] + + + + | MCHC | 33.8 [...] + + + + | Platelet | 141 (L) | 150 - 400 K/uL | [...] + + | [facility] | [address] | [place] [address] | | | [facility] | | | | | LABORATORY | | | | + + + + + ECHO Complete (08/25/2017 5:00 PM PST) + + | Specimen | + + | | + + + + ----+ | Narrative | Performed At | + + ----+ | | [facility] | | | | | Adult Echo | | | Report Name: | | | MARKIE PINTO Study Date: 08/25/2017MRN: [id number] | | | Patient Location: [facility]DOB: 1940 | | | Age: 76 yrs Gender: FemaleHeight: 65 | | | in Weight: 170 lb BSA: | | | 1.8 m2BP: 171/84 mmHg HR: 58History: CAD, MR, | | | HTNReason For Study: evaluate MR AUC 1 INTERPRETATION SUMMARY:A | | | two-dimensional transthoracic echocardiogram with M-mode, pulsed | | | waveand color Doppler was performed.1. There is moderate concentric | | | left ventricular hypertrophy. The leftventricular ejection fraction is | | | grossly normal. The estimated ejectionfraction is 65%.2. The right | | | ventricle is normal in size and function.3. The left atrium is | | | moderately dilated.4. There is moderate central mitral regurgitation | | | and mild effectivemitral stenosis. The mitral valve leaflets are | | | thickened and there isdense posterior annular calcification. There is | | | markedly reduced excursionof the posterior leaflet.5. Aortic valve | | | sclerosis with very minor resting gradients and mildaortic | | | insufficiency.6. Unfortunately pulmonary artery pressures are not well | | | estimated on thisstudy. Left Ventricle:The LV end diastolic dimension | | | (LVIDd) was measured at 4.1 cm. There ismoderate concentric left | | | ventricular hypertrophy. The left ventricularejection fraction is | | | grossly normal. The estimated ejection fraction is65%. No obvious wall | | | motion abnormalities. Right Ventricle:RVIDd = 3.5 cm. The right | | | ventricle is normal in size and function. TAPSEwas measured at 1.9 cm. | | | (Normal value >1.8 cm). Atria:The left atrium is enlarged in the | | | inf-sup dimension at 6.0 cm. The leftatrium is moderately dilated. | | | Right atrial size is normal. The IVCdimension is 2.8 cm. No obvious | | | septal defect is seen with color Doppler. Mitral Valve:There is mitral | | | annular calcification noted. The mitral valve meandiastolic gradient | | | was measured at 3.4 mm Hg. There is mild mitralstenosis. There is | | | moderate mitral regurgitation. Tricuspid Valve:The tricuspid valve is | | | grossly normal in appearance. There is tracetricuspid regurgitation. | | | Aortic Valve:Aortic valve leaflets appear thickened. The aortic valve | | | peak systolicgradient was measured at 13 mm Hg. The aortic valve mean | | | systolic gradientwas measured at 7 mm Hg. Mild aortic insufficiency. | | | Pulmonic Valve:The pulmonic valve is grossly normal. There is | | | physiologic pulmonicinsufficiency noted. Great Vessels:The aortic root | | | diameter was measured at 2.6 cm. Pericardium/Pleural:There is no | | | pericardial effusion. MMode/2D Measurements & CalculationsRVDd: 3.5 cm | | | LVIDd: 4.1 cmIVSd: 1.2 cm | | | LVPWd: 1.1 cm Ao root diam: 2.5 | | | cm LAs major: 6.0 cmRAs major: 4.9 cm | | | TAPSE: 1.9 cm Doppler Measurements & | | | CalculationsMV A dur: 0.10 sec MV V2 | | | max: 160.2 cm/secMV E max vane: 123.7 cm/sec MV max | | | P.3 mmHgMV A max vane: 106.7 cm/sec MV mean PG: | | | 3.4 mmHgMV E/A: 1.2MV dec time: 0.15 sec Ao | | | V2 max: 178.4 cm/sec | | | Ao max P.7 mmHg | | | Ao mean P.0 mmHg | | | Ao V2 VTI: 46.9 cm Pediatric Measurements & | | | CalculationsIVC diam: 2.8 cm Interpreting Physician: Erum Ragland | | | MD Humairaelectronically signed on 08/25/2017 07:05 PMOrdering | | | Physician: Timothy SALINASocardiographer: Vane Kimbrough [id number]: | | | | | |Pulmonic Valve: | | |The pulmonic valve is grossly normal. There is physiologic pulmonic | | |insufficiency noted. | | | | | |Great Vessels: | | |The aortic root diameter was measured at 2.6 cm. | | | | | |Pericardium/Pleural: | | |There is no pericardial effusion. | | | | | |MMode/2D Measurements & Calculations | | |RVDd: 3.5 cm LVIDd: 4.1 cm | | |IVSd: 1.2 cm LVPWd: 1.1 cm | | | | | |Ao root diam: 2.5 cm LAs major: 6.0 cm | | |Obdulia major: 4.9 cm TAPSE: 1.9 cm | | | | | |Doppler Measurements & Calculations | | |MV A dur: 0.10 sec MV V2 max: 160.2 cm/sec | | |MV E max vane: 123.7 cm/sec MV max P.3 mmHg | | |MV A max vane: 106.7 cm/sec MV mean P.4 mmHg | | |MV E/A: 1.2 | | |MV dec time: 0.15 sec Ao V2 max: 178.4 cm/sec | | | Ao max P.7 mmHg | | | Ao mean P.0 mmHg | | | Ao V2 VTI: 46.9 cm | | | | | |Pediatric Measurements & Calculations | | |IVC diam: 2.8 cm | | | | | |Interpreting Physician: Erum Mims MD | | |electronically signed on 08/25/2017 07:05 PM | | |Ordering Physician: MARIA ANTONIA SALINAS | | |Aids Counselor: Vane Viera | | |[id number]: | | | | | + + ----+ + + | Procedure Note | + + | Mauricio, Rad Results In - 08/25/2017 7:05 PM PST | | Adult Echo | | Report | | | | Name: MARKIE PINTO Study Date: 08/25/2017 | | Patient Location: [place] [address] | | : 1940 Age: 76 yrs Gender: Female | | Height: 65 in Weight: 170 lb BSA: 1.8 m2 | | BP: 171/84 mmHg HR: 58 | | History: CAD, MR, HTN | | Reason For Study: evaluate MR AUC 1 | | | | INTERPRETATION SUMMARY: | | A two-dimensional transthoracic echocardiogram with M-mode, pulsed wave | | and color Doppler was performed. | | 1. There is moderate concentric left ventricular hypertrophy. The left | | ventricular ejection fraction is grossly normal. The estimated ejection | | fraction is 65%. | | 2. The right ventricle is normal in size and function. | | 3. The left atrium is moderately dilated. | | 4. There is moderate central mitral regurgitation and mild effective | | mitral stenosis. The mitral valve leaflets are thickened and there is | | dense posterior annular calcification. There is markedly reduced excursion | | of the posterior leaflet. | | 5. Aortic valve sclerosis with very minor resting gradients and mild | | aortic insufficiency. | | 6. Unfortunately pulmonary artery pressures are not well estimated on this | | study. | | | | Left Ventricle: | | The LV end diastolic dimension (LVIDd) was measured at 4.1 cm. There is | | moderate concentric left ventricular hypertrophy. The left ventricular | | ejection fraction is grossly normal. The estimated ejection fraction is | | 65%. No obvious wall motion abnormalities. | | | | Right Ventricle: | | RVIDd = 3.5 cm. The right ventricle is normal in size and function. TAPSE | | was measured at 1.9 cm. (Normal value >1.8 cm). | | | | Atria: | | The left atrium is enlarged in the inf-sup dimension at 6.0 cm. The left | | atrium is moderately dilated. Right atrial size is normal. The IVC | | dimension is 2.8 cm. No obvious septal defect is seen with color Doppler. | | | | Mitral Valve: | | There is mitral annular calcification noted. The mitral valve mean | | diastolic gradient was measured at 3.4 mm Hg. There is mild mitral | | stenosis. There is moderate mitral regurgitation. | | | | Tricuspid Valve: | | The tricuspid valve is grossly normal in appearance. There is trace | | tricuspid regurgitation. | | | | Aortic Valve: | | Aortic valve leaflets appear thickened. The aortic valve peak systolic | | gradient was measured at 13 mm Hg. The aortic valve mean systolic gradient | | was measured at 7 mm Hg. Mild aortic insufficiency. | | | | Pulmonic Valve: | | The pulmonic valve is grossly normal. There is physiologic pulmonic | | insufficiency noted. | | | | Great Vessels: | | The aortic root diameter was measured at 2.6 cm. | | | | Pericardium/Pleural: | | There is no pericardial effusion. | | | | MMode/2D Measurements & Calculations | | RVDd: 3.5 cm LVIDd: 4.1 cm | | IVSd: 1.2 cm LVPWd: 1.1 cm | | | | Ao root diam: 2.5 cm LAs major: 6.0 cm | | Obdulia major: 4.9 cm TAPSE: 1.9 cm | | | | Doppler Measurements & Calculations | | MV A dur: 0.10 sec MV V2 max: 160.2 cm/sec | | MV E max vane: 123.7 cm/sec MV max P.3 mmHg | | MV A max vane: 106.7 cm/sec MV mean P.4 mmHg | | MV E/A: 1.2 | | MV dec time: 0.15 sec Ao V2 max: 178.4 cm/sec | | Ao max P.7 mmHg | | Ao mean P.0 mmHg | | Ao V2 VTI: 46.9 cm | | | | Pediatric Measurements & Calculations | | IVC diam: 2.8 cm | | | | Interpreting Physician: Erum Mims MD | | electronically signed on 08/25/2017 07:05 PM | | Ordering Physician: MARIA ANTONIA SALINAS | | Aids Counselor: Vane Viera | | [phone]: | + + + +---------+ + + | Performing | Address | City/State/Zipcode | Phone Number | | Organization | | | | + +---------+ + + | [facility] | | | | + +---------+ + + ECG 12 lead (08/25/2017 2:36 PM PST) + + | Specimen | + + | | + + + + + | Narrative | Performed At | + + + | HEART RATE:60 | [facility] | | bpmRR Interval:1000 msAtrial Rate:60 msP-R Interval:176 msP | [facility] | | Duration:180 msP Horizontal Sully:7 degP Front Sully:65 degQ Onset:516 | | | msQRSD Interval:118 msQT Interval:476 msQTcB:476 msQTcF:476 msQRS | | | Horizontal Sully:-77 degQRS Sully:-31 degI-40 Horizontal Sully:39 degI-40 | | | Front Sully:68 degT-40 Horizontal Sully:239 degT-40 Front Sully:-56 degT | | | Horizontal Sully:110 degT Wave Sully: degS-T Horizontal Sully:132 degS-T | | | Front Sully:206 degSeverity:- ABNORMAL ECG -INTERP:SINUS | | | RHYTHMINTERP:LVH WITH IVCD AND SECONDARY REPOL ABNRMElectronically | | | signed by: ERUM MIMS 08-26-2017 10:50:00 | | |QTcB:476 ms | | |QTcF:476 ms | | |QRS Horizontal Sully:-77 deg | | |QRS Sully:-31 deg | | |I-40 Horizontal Sully:39 deg | | |I-40 Front Sully:68 deg | | |T-40 Horizontal Sully:239 deg | | |T-40 Front Sully:-56 deg | | |T Horizontal Sully:110 deg | | |T Wave Sully: deg | | |S-T Horizontal Sully:132 deg | | |S-T Front Sully:206 deg | | |Severity:- ABNORMAL ECG - | | |INTERP:SINUS RHYTHM | | |INTERP:LVH WITH IVCD AND SECONDARY REPOL ABNRM | | |Electronically signed by: ERUM MIMS 08-26-2017 10:50:00 | | + + + + + + + + | Performing | Address | City/State/Zipcode | Phone Number | | Organization | | | | + + + + + | [facility] | [address] [place] [address]. | [place] [address] | [phone] | + + + + + PTT (08/25/2017 9:57 AM PST) + + + + + + | Component | Value | Ref Range | Performed | Pathologist | | | | | At | Signature | + + + + + + | aPTT, | 70 (H)Comment: Deep | 26 - 36 sec [...] | | | | 69 to 99 seconds. | | | | + + + + + + + + | Specimen | + + | Blood | + + + + + + + | Performing | Address | City/State/Zipcode | Phone Number | | Organization | | | | + + + + + | [facility]IKA MELCHOR | [address] | [place] [address] | | | [facility] | | | | | LABORATORY | | | | + + + + + NM Nuclear Stress Test (Exercise) (08/25/2017 9:45 AM PST) + + | Specimen | + + | | + + + + ---+ | Narrative | Performed A t | + + ---+ | PATIENT NAME: | MANAS MENDIOLA NG | | Markie Pinto : 1940 AGE: 76 y.o. ENCOUNTER | | | DATE: 08/25/2017 DOCUMENT DATE: 08/25/2017 PRIMARY CARE: Doug García | | | REFERRING: Maria Antonia Salinas NP [facility] PROVIDER: Aniket | | | ABBY Curry NUCLEAR MEDICINE PHARMACOLOGIC | | | STRESS TEST REPORT PATIENT NAME: Markie Pinto : | | | 1940 AGE: 76 y.o. ENCOUNTER DATE: 08/25/2017 DOCUMENT | | | DATE: 08/25/2017 PRIMARY CARE: Doug García MD REFERRING: Brad, | | | Maria Antonia Bland NP [facility] READER: Fly Christianson MD | | | NUCLEAR MEDICINE PHARMACOLOGIC STRESS TEST REPORT PHYSICIAN | | | REPORTFindings: The resting electrocardiogram left bundle branch | | | block pattern. With vasodilator infusion, there were no significant | | | changes. The overall quality of the study is adequate for | | | interpretation. The left ventricular cavity is normal in size. The | | | calculated EF= 65 %. The resting SPECT Images mild lateral wall | | | defect.The post vasodilator SPECT images large lateral wall defect | | | with significant improvement on delayed images. Impression: ECG | | | stress test results:1. Abnormal baseline 12 lead electrocardiogram.2. | | | No new arrhythmias throughout monitoring.3. The ECG findings are | | | abnormal. Myocardial perfusion results:1. Myocardial perfusion | | | imaging is abnormal for significant lateral wall ischemia.2. | | | Ejection fraction calculated at 65 %.4. By imaging criteria, this | | | is a moderate to high risk study risk study. Comparison1. Unable to | | | view | | | ____Table - Noninvasive Risk Stratification RISK | | | ANNUAL MORTALITY RATEHigh Greater than | | | 3%Intermediate 1% to 3%Low Less than 1% | | | Interpreted by: Fly Christianson [facility] PROVIDER REPORT | | | Procedure: Single radiopharmaceutical SPECT (Single Photon Emission | | | Computed Tomography) imaging with pharmacologic stress and gated SPECT | | | imaging Indication: Evaluation of extent and severity of coronary | | | artery disease Clinical History:76 y.o. year old female with known | | | coronary artery disease with prior myocardial infarction Cardiac risk | | | factors include: Hypertension, Dyslipidemia, Family history of early | | | CAD, Tobacco use and Obesity Other cardiovascular disease includes: | | | Cerebrovascular disease, Heart failure and Atrial arrhythmias | | | Previous cardiac procedures include: PCI and CABG Current | | | presentation/symptomatology: Asymptomatic Current medications: | | | Beta candice-held 12 hours; Central acting calcium channel | | | candice-no; Nitrate-no; Dipyridamole-no; Theophylline-no. ECG | | | interpretable for evaluation of ischemia: Yes Description of | | | Procedure:Exercise stress test was stopped due to a blood pressure | | | reading of 77/56. This was at 4.5 minutes. She denied LH or dizziness. | | | This was likely a poor reading but we did not feel it was safe to | | | continue and switched to vasodilator. I did notice ST depression in | | | Lead 2, lead 3, mild aVF, V4, V5, and V6. TWI in aVL with exercise. | | | Stress Test: Pharmacologic stress testing was performed using 44 mg | | | IV dipyridamole without additional low-level exercise. The heart | | | rate was 66 beats per minute at baseline and 115 beats per minute at | | | peak stress. The blood pressure was 157/74 mm Hg at baseline and | | | 168/85 mm Hg at peak stress, which represents a normal response to | | | pharmacologic stress. The patient developed chest pain radiating to | | | her jaw and bilateral arms, nausea, and dizziness symptoms during | | | stress. Her chest pressure was relieved from 4/10 to 1/0 with nitro. | | | The test was stopped because of completion of the stress protocol. | | | Reversal Agent: yes. If yes, Aminophylline 125 mg given at 8 | | | minutes. Findings The resting ECG demonstrated normal sinus rhythm | | | with incomplete LBBB with Q wave in aVL and lead 1, TWI in V5 and V6. | | | With peak stress, the ECG demonstrated ST depression in inferior | | | leads and V4, V5, and V6. TWI in aVL.. No significant arrhythmias | | | were noted. Myocardial perfusion imaging: Single isotope gated SPECT | | | acquisition was performed at rest following the intravenous injection | | | of 8.3 mCi of Tc-99m sestamibi. Single isotope ated SPECT | | | acquisition was performed after the patient was intravenously | | | administered 26 mCi of Tc-99m sestamibi at peak stress. | | |High Greater than 3% | | |Intermediate 1% to 3% | | |Low Less than 1% | | | | | |Interpreted by: | | | | | |Fly Christianson MD | | |[facility] PROVIDER REPORT | | | | | |Procedure: Single radiopharmaceutical SPECT (Single Photon Emission | | |Computed Tomography) imaging with pharmacologic stress and gated SPECT | | |imaging | | | | | |Indication: Evaluation of extent and severity of coronary artery disease | | | | | |Clinical History: | | |76 y.o. year old female with known coronary artery disease with prior | | |myocardial infarction | | | | | |Cardiac risk factors include: Hypertension, Dyslipidemia, Family history | | |of early CAD, Tobacco use and Obesity | | | | | |Other cardiovascular disease includes: Cerebrovascular disease, Heart | | |failure and Atrial arrhythmias | | | | | |Previous cardiac procedures include: PCI and CABG | | | | | |Current presentation/symptomatology: Asymptomatic | | | | | |Current medications: Beta candice-held 12 hours; Central acting calcium | | |channel candice-no; Nitrate-no; Dipyridamole-no; Theophylline-no. | | | | | |ECG interpretable for evaluation of ischemia: Yes | | | | | |Description of Procedure: | | |Exercise stress test was stopped due to a blood pressure reading of 77/56. | | |This was at 4.5 minutes. She denied LH or dizziness. This was likely a | | |poor reading but we did not feel it was safe to continue and switched to | | |vasodilator. I did notice ST depression in Lead 2, lead 3, mild aVF, V4, | | |V5, and V6. TWI in aVL with exercise. | | | | | |Stress Test: Pharmacologic stress testing was performed using 44 mg IV | | |dipyridamole without additional low-level exercise. The heart rate was | | |66 beats per minute at baseline and 115 beats per minute at peak stress. | | |The blood pressure was 157/74 mm Hg at baseline and 168/85 mm Hg at peak | | |stress, which represents a normal response to pharmacologic stress. The | | |patient developed chest pain radiating to her jaw and bilateral arms, | | |nausea, and dizziness symptoms during stress. Her chest pressure was | | |relieved from 4/10 to 1/0 with nitro. The test was stopped because of | | |completion of the stress protocol. | | | | | |Reversal Agent: yes. If yes, Aminophylline 125 mg given at 8 minutes. | | | | | |Findings | | | The resting ECG demonstrated normal sinus rhythm with incomplete LBBB | | |with Q wave in aVL and lead 1, TWI in V5 and V6. With peak stress, the | | |ECG demonstrated ST depression in inferior leads and V4, V5, and V6. TWI | | |in aVL.. No significant arrhythmias were noted. | | | | | |Myocardial perfusion imaging: Single isotope gated SPECT acquisition was | | |performed at rest following the intravenous injection of 8.3 mCi of Tc-99m | | |sestamibi. Single isotope ated SPECT acquisition was performed after the | | |patient was intravenously administered 26 mCi of Tc-99m sestamibi at peak | | |stress. | | | | | | | | | | | | | | | | | + + ---+ + +---------+ + + | Performing | Address | City/State/Zipcode | Phone Number | | Organization | | | | + +---------+ + + | [facility] | | | | + +---------+ + + LVEF VALUE (08/25/2017 9:45 AM PST) + +-------+ + + + | Component | Value | Ref Range | Performed | Pathologist | | | | | At | Signature | + +-------+ + + + | LVEF-SPECT | 65 | % | | | | NUCLEAR | | | | | | STRESS/VIAB | | | | | | ILITY | | | | | + +-------+ + + + PTT (08/25/2017 2:22 AM PST) + + + + + + | Component | Value | Ref Range | Performed | Pathologist | | | | | At | Signature | + + + + + + | aPTT, | 104 (H)Comment: Deep | 26 - 36 sec [...] | | | | 69 to 99 seconds. | | | | + + + + + + + + | Specimen | + + | Blood | + + + + + + + | Performing | Address | City/State/Zipcode | Phone Number | | Organization | | | | + + + + + | [facility] | [address] | [place] [address] | | | [facility] | | | | | LABORATORY | | | | + + + + + Troponin I (08/25/2017 2:22 AM PST) + +-------+ + + + | Component | Value | Ref Range | Performed | Pathologist | | | | | At | Signature | + +-------+ + + + | Troponin I | 0.03 | 0.00 - 0.06 | [facility] | | | | | ng/mL | [facility] | | | | | [...] + + | [facility] | [address] | [place] [address] | | | [facility] | | | | | LABORATORY | | | | + + + + + TSH, Reflex Free T4 (08/25/2017 2:22 AM PST) + +-------+ + + + | Component | Value | Ref Range | Performed | Pathologist | | | | | At | Signature | + +-------+ + + + | TSH | 1.240 | 0.300 - 4.000 | [facility] | | | | | uIU/mL | [facility] | | | | | [...] + | [facility] | [address] | [place] [address] | | | [facility] | | | | | LABORATORY | | | | + + + + + Magnesium (08/25/2017 2:22 AM PST) + +-------+ + + + | Component | Value | Ref Range | Performed | Pathologist | | | | | At | Signature | + +-------+ + + + | Magnesium | 2.3 | 1.7 - 2.4 mg/dL | [facility] [...] + | [facility] | [address] | [place] [address] | | | [facility] | | | | | LABORATORY | | | | + + + + + Basic Metabolic Panel (08/25/2017 2:22 AM PST) + + + + + [...] + + + + | CO2 | 24 | 21 - 28 mmol/L | [facility] | [facility] | [facility] | | | | | | [facility] | | | | | | [facility] | | | | | | LABORATORY | | + + + + + + | Glucose | 136 (H)Comment: Peruvian | 65 - 99 mg/dL | [facility] [...] + + + + | BUN | 21 | 8 - 25 mg/dL | [facility] | [facility] | | | | | | [facility] | | | | | | [facility] | | | | | | LABORATORY | | + + + + + + | Creatinine | 1.19 (H)Comment: IDMS | 0.50 - 1.00 | [...] + + + | Anion Gap | 11 | 5 - 16 mmol/L | [facility] | [facility] | | | | | | [facility] | | | | | | [facility] | | | | | | LABORATORY | | + + + + + + | Estimated | 44 (L)Comment: GFR <60: | >60 | [facility] [...] + + | [facility] | [address] | [place] [address] | | | [facility] | | | | | LABORATORY | | | | + + + + + LVEF VALUE (08/25/2017) + +-------+ + + + | Component | Value | Ref Range | Performed | Pathologist | | | | | At | Signature | + +-------+ + + + | LVEF-TTE | 65 | % | | | | TRANSTHORAC | | | | | | IC ECHO | | | | | + +-------+ + + + Troponin I (08/24/2017 6:37 PM PST) + +-------+ + + + | Component | Value | Ref Range | Performed | Pathologist | | | | | At | Signature | + +-------+ + + + | Troponin I | 0.03 | 0.00 - 0.06 | [facility] | | | | | ng/mL | [facility] | | | | | [...] + + | [facility] | [address] | [place] [address] | | | [facility] | | | | | LABORATORY | | | | + + + + + Magnesium (08/24/2017 6:37 PM PST) + +-------+ + + + | Component | Value | Ref Range | Performed | Pathologist | | | | | At | Signature | + +-------+ + + + | Magnesium | 2.3 | 1.7 - 2.4 mg/dL | [facility] [...] + + | [facility] | [address] | [place] [address] | | | [facility] | | | | | LABORATORY | | | | + + + + + PTT (08/24/2017 6:37 PM PST) + + + + + + | Component | Value | Ref Range | Performed | Pathologist | | | | | At | Signature | + + + + + + | aPTT, | 51 (H)Comment: Deep | 26 - 36 sec [...] | | | | 69 to 99 seconds. | | | | + + + + + + + + | Specimen | + + | Blood | + + + + + + + | Performing | Address | City/State/Zipcode | Phone Number | | Organization | | | | + + + + + | [facility] | [address] | [place] [address] | | | [facility] | | | | | LABORATORY | | | | + + + + + ECG 12 lead (08/24/2017 4:47 PM PST) + + | Specimen | + + | | + + + + + | Narrative | Performed At | + + + | HEART RATE:60 | [facility] | | bpmRR Interval:1000 msAtrial Rate:60 msP-R Interval:176 msP | [facility] | | Duration:184 msP Horizontal Sully:0 degP Front Sully:26 degQ Onset:512 | | | msQRSD Interval:114 msQT Interval:460 msQTcB:460 msQTcF:460 msQRS | | | Horizontal Sully:-83 degQRS Sully:-34 degI-40 Horizontal Sully:33 degI-40 | | | Front Sully:61 degT-40 Horizontal Sully:231 degT-40 Front Sully:-56 degT | | | Horizontal Sully:103 degT Wave Sully:131 degS-T Horizontal Sully:126 | | | degS-T Front Sully:198 degSeverity:- ABNORMAL ECG -INTERP:SINUS | | | RHYTHMINTERP:LVH WITH IVCD AND SECONDARY REPOL ABNRMElectronically | | | signed by: ERUM MIMS 08-26-2017 10:50:06 | | |QTcB:460 ms | | |QTcF:460 ms | | |QRS Horizontal Sully:-83 deg | | |QRS Sully:-34 deg | | |I-40 Horizontal Sully:33 deg | | |I-40 Front Sully:61 deg | | |T-40 Horizontal Sully:231 deg | | |T-40 Front Sully:-56 deg | | |T Horizontal Sully:103 deg | | |T Wave Sully:131 deg | | |S-T Horizontal Sully:126 deg | | |S-T Front Sully:198 deg | | |Severity:- ABNORMAL ECG - | | |INTERP:SINUS RHYTHM | | |INTERP:LVH WITH IVCD AND SECONDARY REPOL ABNRM | | |Electronically signed by: ERUM MIMS 08-26-2017 10:50:06 | | + + + + + + + + | Performing | Address | City/State/Zipcode | Phone Number | | Organization | | | | + + + + + | [facility] | [address] | [place] [address] | [phone] | + + + + + documented in this encounter Visit Diagnoses + + | Diagnosis | + + | NSTEMI (non-ST elevated myocardial infarction) (HCC) Acute myocardial infarction, | | subendocardial infarction, episode of care unspecified | + + documented in this encounter Administered Medications + +--------+ +--------+------+------+ | Medication Order | MAR | Action | Dose | Rate | Site | | | Action | Date | | | | + +--------+ +--------+------+------+ | acetaminophen (TYLENOL) tablet | Given | 08/26/19 | 650 mg | | | | 650 mg 650 mg, Oral, EVERY 4 | | 18 9:58 | | | | | HOURS PRN, Pain, or fever >= 38.6 | | AM PST | | | | | C (101.5 F), Starting [place] 08/24/17 | | | | | | | at 1821 | | | | | | + +--------+ +--------+------+------+ +---+---+ | | | +---+---+ + +-------+ + +---+---+ | ascorbic acid (VITAMIN C) | Given | 08/26/19 | 1,000 mg | | | | tablet 1,000 mg 1,000 mg, Oral, | | 18 8:17 | | | | | DAILY, First dose on [facility] 08/24/17 | | AM PST | | | | | at 1845 | | | | | | + +-------+ + +---+---+ +-------+ + +---+---+ | Given | 08/25/19 | 1,000 mg | | | | | 18 11:05 | | | | | | AM PST | | | | +-------+ + +---+---+ | Given | 08/24/19 | 1,000 mg | | | | | 18 6:50 | | | | | | PM PST | | | | +-------+ + +---+---+ +---+---+ | | | +---+---+ + +-------+ + +---+---+ | aspirin tablet 162.5 mg 162.5 | Given | 08/26/19 | 162.5 mg | | | | mg, Oral, DAILY, First dose on | | 18 8:18 | | | | | [place] 08/24/17 at 1945 | | AM PST | | | | + +-------+ + +---+---+ +-------+ + +---+---+ | Given | 08/25/19 | 162.5 mg | | | | | 18 11:05 | | | | | | AM PST | | | | +-------+ + +---+---+ | Given | 08/24/19 | 162.5 mg | | | | | 18 8:43 | | | | | | PM PST | | | | +-------+ + +---+---+ + +---+ | | | + +---+ | bisacodyl (DULCOLAX) | | | suppository 10 mg 10 mg, Rectal, | | | DAILY PRN, Constipation, | | | Starting [facility] 08/24/17 at 1821, If | | | all other bowel medications | | | ineffective x 24 hours or not | | | ordered., | | + +---+ | | | + +---+ + +-------+ +--------+---+---+ | cyanocobalamin (VITAMIN B-12) | Given | 08/26/19 | 50 mcg | | | | tablet 50 mcg 50 mcg, Oral, | | 18 8:19 | | | | | DAILY, First dose on [facility] 08/24/17 | | AM PST | | | | | at 1845 | | | | | | + +-------+ +--------+---+---+ +-------+ +--------+---+---+ | Given | 08/25/19 | 50 mcg | | | | | 18 11:06 | | | | | | AM PST | | | | +-------+ +--------+---+---+ | Given | 08/24/19 | 50 mcg | | | | | 18 6:51 | | | | | | PM PST | | | | +-------+ +--------+---+---+ +---+---+ | | | +---+---+ + +-------+ +--------+---+---+ | fentaNYL (PF) injection ONCE | Given | 08/25/19 | 25 mcg | | | | PRN, Starting 08/25/17 at 1259, | | 18 1:34 | | | | | Intra-op | | PM PST | | | | + +-------+ +--------+---+---+ +-------+ +--------+---+---+ | Given | 08/25/19 | 25 mcg | | | | | 18 1:15 | | | | | | PM PST | | | | +-------+ +--------+---+---+ | Given | 08/25/19 | 50 mcg | | | | | 18 12:59 | | | | | | PM PST | | | | +-------+ +--------+---+---+ +---+---+ | | | +---+---+ + +-------+ +-------+---+---+ | hydroCHLOROthiazide tablet 25 | Given | 08/26/19 | 25 mg | | | | mg 25 mg, Oral, DAILY, First | | 18 8:19 | | | | | dose on [facility] 08/24/17 at 1845 | | AM PST | | | | + +-------+ +-------+---+---+ +-------+ +-------+---+---+ | Given | 08/24/19 | 25 mg | | | | | 18 6:51 | | | | | | PM PST | | | | +-------+ +-------+---+---+ +---+---+ | | | +---+---+ + +-------+ +---------+---+---+ | iohexol (OMNIPAQUE 350) 350 | Given | 08/25/19 | 160 mLs | | | | mg/mL injection ONCE PRN, | | 18 1:53 | | | | | Starting 08/25/17 at 1353, | | PM PST | | | | | Intra-op | | | | | | + +-------+ +---------+---+---+ +---+---+ | | | +---+---+ + +-------+ +-------+---+---+ | isosorbide mononitrate (IMDUR) | Given | 08/26/19 | 30 mg | | | | ER tablet 30 mg 30 mg, Oral, | | 18 8:17 | | | | | DAILY, First dose on Mon08/25/17 | | AM PST | | | | | at 1600, Tablet may be cut where | | | | | | | scored but do not crush., | | | | | | + +-------+ +-------+---+---+ +-------+ +-------+---+---+ | Given | 08/25/19 | 30 mg | | | | | 18 4:42 | | | | | | PM PST | | | | +-------+ +-------+---+---+ +---+---+ | | | +---+---+ + +-------+ +---------+---+---+ | levothyroxine (SYNTHROID) | Given | 08/26/19 | 100 mcg | | | | tablet 100 mcg 100 mcg, Oral, | | 18 6:48 | | | | | DAILY BEFORE BREAKFAST, First | | AM PST | | | | | dose on [place] 08/24/17 at 1845, Give | | | | | | | before breakfast., | | | | | | + +-------+ +---------+---+---+ +-------+ +---------+---+---+ | Given | 08/25/19 | 100 mcg | | | | | 18 6:30 | | | | | | AM PST | | | | +-------+ +---------+---+---+ | Given | 08/24/19 | 100 mcg | | | | | 18 6:50 | | | | | | PM PST | | | | +-------+ +---------+---+---+ + +---+ | | | + +---+ | magnesium hydroxide (MILK OF | | | MAGNESIA) 400 mg/5 mL suspension | | | 30 mL 30 mL, Oral, NIGHTLY PRN, | | | Constipation, Starting [facility] 08/24/17 | | | at 1821, If docusate, senna, and | | | polyethylene glycol ineffective | | | x 24 hours or not ordered, | | + +---+ | | | + +---+ + +-------+ +-------+---+---+ | metoprolol succinate | Given | 08/26/19 | 50 mg | | | | (TOPROL-XL) ER tablet 50 mg 50 | | 18 8:19 | | | | | mg, Oral, DAILY, First dose on | | AM PST | | | | | [place] 08/24/17 at 1845, Tablet may be | | | | | | | cut where scored but do not | | | | | | | crush., | | | | | | + +-------+ +-------+---+---+ +-------+ +-------+---+---+ | Given | 08/25/19 | 50 mg | | | | | 18 11:06 | | | | | | AM PST | | | | +-------+ +-------+---+---+ | Given | 08/24/19 | 50 mg | | | | | 18 6:51 | | | | | | PM PST | | | | +-------+ +-------+---+---+ +---+---+ | | | +---+---+ + +-------+ +--------+---+---+ | midazolam (VERSED) 1 mg/mL | Given | 08/25/19 | 0.5 mg | | | | injection ONCE PRN, Starting Fri | | 18 1:55 | | | | | 08/25/17 at 1259, Intra-op | | PM PST | | | | + +-------+ +--------+---+---+ +-------+ +--------+---+---+ | Given | 08/25/19 | 1 mg | | | | | 18 1:49 | | | | | | PM PST | | | | +-------+ +--------+---+---+ | Given | 08/25/19 | 0.5 mg | | | | | 18 1:34 | | | | | | PM PST | | | | +-------+ +--------+---+---+ + +---+ | | | + +---+ | morphine injection 2-6 mg 2-6 | | | mg, Intravenous, EVERY 2 HOURS | | | PRN, Pain, Starting [place] 08/24/17 at | | | 1821, Slow IV push, not faster | | | than 2 mg/minute. If ineffective | | | or not tolerated, use | | | hydromorphone IV if ordered., | | + +---+ | | | + +---+ | ondansetron (ZOFRAN) injection | | | 4 mg 4 mg, Intravenous, EVERY 6 | | | HOURS PRN, Nausea, Vomiting, | | | Starting [place] 08/24/17 at 1821, | | | First line agent, | | + +---+ | | | + +---+ | polyethylene glycol (MIRALAX) | | | powder 17 g 17 g, Oral, DAILY | | | PRN, Constipation, Starting [place] | | | 08/24/17 at 1821, If docusate and | | | senna ineffective or not | | | ordered., | | + +---+ | | | + +---+ + +-------+ +-------+---+---+ | rivaroxaban (XARELTO) tablet 15 | Given | 08/26/19 | 15 mg | | | | mg 15 mg, Oral, DAILY, First | | 18 10:48 | | | | | dose (after last reorder) on Sat | | AM PST | | | | | 08/26/17 at 1030 | | | | | | + +-------+ +-------+---+---+ + +---+ | | | + +---+ | senna (SENOKOT) tablet 8.6 mg | | | 8.6 mg, Oral, 2 TIMES DAILY PRN, | | | Constipation, Starting [facility] 08/24/17 | | | at 1821, If docusate ineffective | | | or not ordered., | | + +---+ | | | + +---+ documented in this encounter
--- OUTSIDE RECORDS SUMMARY | ~2019-07-30 | XMS | Encounter Summary ---
Demographics + + + | Address | [address] | | | [place] [address] | + + + | Home Phone | | + + + | Preferred Language | Unknown | + + + | Marital Status | | + + + | Denominational Affiliation | 1001 | + + + | Race | Unknown | + + + | Ethnic Group | Unknown | + + + Author + + + | Author | [facility] | | | and [place] | + + + | Organization | [facility] | | | [...] Team Providers + +------+ + | Care Record Producer Name | Role | Phone | + +------+ + | Doug García MD | PCP | | + +------+ + Encounter Details +--------+ + + + + | Date | Type | Department | Care Team | Description | +--------+ + + + + | 10/01/ | Hospital | [facility] | Conversion | Lumbar | | 2019 | Encounter | [facility] | Transaction, | radiculopathy; | | | | CLINIC [address] | Provider Unknown | Weakness of left | | | | [facility] | [phone] | lower extremity; | | | | [address] | | Degenerative lumbar | | | | [phone] | Adonis Calhoun MD | spinal stenosis; | | | | | [address] | Herniation of lumbar | | | | | [place], | intervertebral disc | | | | | [place] [address] | without myelopathy; | | | | | [phone] | Pre-op exam | | | | | | | [...] + + + | Blood Pressure | 188/90 | 10/01/2018 11:43 AM | | | | | PDT | | + + + + + | Pulse | 75 | 10/01/2018 11:43 AM | | | | | PDT [...] + + + + | Weight | 66.7 kg (147 lb) | 10/01/2018 11:43 AM | | | | | PDT | | + + + + + | Height | 165.1 cm (5' 5") | 10/01/2018 11:43 AM | | | | | PDT | | + + + + + | Body Mass Index | 24.46 | 10/01/2018 11:43 AM | | | | | PDT [...] + + + +---------+ + + | Capsicum Cayenne, | Take by mouth | | [...] +--------+ + + + | XR CHEST 2 VIEWS | Routin | 10/01/2018 | | Results for this | | | e | 12:08 PM | | procedure are in the | | | | PDT | | results section. | + +--------+ + + + | ECG 12 LEAD | Routin | 10/01/2018 | | Results for this | | | e | 11:23 AM | | procedure are in the | | | | PDT | | results section. | + +--------+ + + + documented in this encounter Results XR Chest 2 Vws (10/01/2018 12:08 PM PDT) + + | Specimen | + + | | + + + + + | Impressions | Performed At | + + + | 1. 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 Mild | | | cardiomegaly without overt failure. 3. No acute pulmonary disease. | | | Signed by: Michael Adams Sign Date/Time: 10/01/2018 1:49 PM | | + + + + + + | Narrative | Performed At | + + + | CHEST TWO VIEWS CLINICAL INFORMATION: Lumbar pain with referred | | | pain and weakness to left lower extremity. COMPARISON: XR CHEST PA | | | AND LATERAL (03/27/2018); XR CHEST AP PORTABLE (08/24/2017); XR CHEST PA | | | AND LATERAL (01/30/2014); FINDINGS: Mild cardiomegaly without overt | | | failure. 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 No | | | infiltrate, effusion, pneumothorax. No appreciable pulmonary nodule | | | or mass. Osseous structures grossly normal. | | + + + + + | Procedure Note | + + | Carlos Martínez - 02/26/2019 11:12 PM PDT CHEST TWO VIEWS | | CLINICAL INFORMATION: | | Lumbar pain with referred pain and weakness to left lower extremity. | | COMPARISON: | | XR CHEST PA AND LATERAL (03/27/2018); XR CHEST AP PORTABLE (08/24/2017); | | XR CHEST PA AND LATERAL (01/30/2014); | | FINDINGS: | | Mild cardiomegaly without overt failure. Postoperative changes of | | prior sternotomy and CABG. No infiltrate, effusion, pneumothorax. No | | appreciable pulmonary nodule or mass. Osseous structures grossly | | normal. | | IMPRESSION: | | 1. 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 Mild cardiomegaly without overt failure. | | 3. No acute pulmonary disease. | | Signed by: Michael Adams | | Sign Date/Time: 10/01/2018 1:49 PM | + + ECG 12 lead (10/01/2018 11:23 AM PDT) + + + + + + | Component | Value | Ref Range | Performed | Pathologist | | | | | At | Signature | + + + + + + | DIAGNOSIS: | Normal sinus | | EXTERNAL | | | | rhythmNormal ECGNo | | LAB | | | | previous ECGs | | | | | | availableConfirmed by | | | | | | CLARY CHAMBERS ([id number]) on | | | | | | 10/01/2018 3:42:40 PM | | | | + + + + + + + + | Specimen | + + | | + + + + + | Narrative | Performed At | + + + | Historically converted procedure from [employer] environment | EXTERNAL LAB | + + + + +---------+ + + | Performing | Address | City/State/Zipcode | Phone Number | | Organization | | | | + +---------+ + + | EXTERNAL LAB | | | | + +---------+ + + documented in this encounter Visit Diagnoses + + | Diagnosis | + + | Lumbar radiculopathy Thoracic or lumbosacral neuritis or radiculitis, unspecified | + + | Weakness of left lower extremity | + + | Degenerative lumbar spinal stenosis Spinal stenosis, lumbar region, without | | neurogenic claudication | + + | 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
--- OUTSIDE RECORDS SUMMARY | ~2019-07-30 | XMS | Encounter Summary ---
Demographics + + + | Address | [address] | | | [place] [address] | + + + | Home Phone | | + + + | Preferred Language | Unknown | + + + | Marital Status | | + + + | Druze Affiliation | 1001 | + + + | Race | Unknown | + + + | Ethnic Group | Unknown | + + + Author + + + | Author | [facility] | | | and [place] | + + + | Organization | [facility] | | | [...] Team Providers + +------+ + | Care Framing And Hanging Name | Role | Phone | + [...] | Physical | Diagnoses | Ricky, | [facility] | | | Services | Therapy / | Benign | MD Doug | [address] | | | Required | Rehabilitatio | paroxysmal | [address] | | | | n | positional | [place] | [place], [place] | | | | | vertigo, | Ave. | [address] | | | | | unspecified | [place], [place] | Phone: | | | | | laterality | [address] | [phone] | | | | | | Phone: | Fax: | | | | | | [phone] | [phone] | | | | | | Fax: | | | | | | | [phone] | | +--------+ + + + + + Encounter Details +--------+ + + + + | Date | Type | Department | Care Team | Description | +--------+ + + + + | 09/20/ | Hospital | [facility] | Doug García MD | Benign paroxysmal | | 2018 | Encounter | [facility] | [address] | positional vertigo, | | | | PHYSICAL THERAPY | [place] [address] | unspecified | | | | [address] | [phone] | laterality | | | | [place], [place] | | | | | | [address] | Satish Messer PT | | | | | [phone] | [address] | | | | | | [place], [place] | | | | | | [address] | | | | | | [phone] | | | | | | | [...] encounter Progress Notes Satish Izaguirre, PT - 09/20/2017 8:42 AM PSTFormatting of this note might be different fr om the original. [facility] [address] [facility] [address] Physical Therapy Daily Treatment Note Date: 09/20/2017 Patient Information Patient Name: Chaya Chan Date of : 1940 Age: 76 y.o. Encounter Diagnoses Code Name Primary? H81.10 Benign paroxysmal positional vertigo, unspecified laterality Referring Provider: Doug García MD Rehab Precautions Flowsheet Row [facility] PT EVALUATION from 09/01/[address] [facility] Rehab Precautions Precautions Comments Significant PMH please review Rehab Learning Style Flowsheet Row [facility] PT EVALUATION from 09/01/[address] [facility] Learning Style Patient's [employer] Learning Style reading Pain Assessment Pain Rating Pre Assessment: 0 Objective Today's Treatment Patient Name: Chaya Chan/: 1940/ Start Time: 0800 Stop time: 0830 Duration: 30 minutes Timed Treatment Codes: 30 minutes # of PT Visits to Date: 4 Visit Summary: Patient reports that she doesn't feel the "fuzzy" feeling in her head any lo nger and is begging to feel more steady. Reviewed HEP and patient not doing the ocular trac zahra or X1 viewing exercise correctly. She is able to recollect the movements but neglects to keep her eye on the target. Spoke with her spouse and daughter and educated them on how to assist with the exercise until patient is able to do it independently. Discussed balance exercise and patient with excellent understanding and safe technique. Will add X2 viewing if approperiate next session and will consider increased difficulty with X1 viewing (backgro und change or possibly standing on foam). Next Visit Information: Patient would prefer a HEP with limited visits used (as able). Tea ch X1 and X2 viewing as well as ocular tracking. Also static and dynamic balance exercise o n foam/pillow. Therapy Interventions HEP: 09/06: Ocular tracking and X1 viewing to be done 3x/day, Balance on foam with eyes alexx sed x 2 minutes (2x/day). Hand written instructions given PT INTERVENTION 1: Reviewed HEP and spent considerable time ensuring correct performance. Patient and family with much more clear understanding post session Assessment Rehabilitation potential: Patient demonstrates good potential to achieve established goals to address the documented impairments by participating in skilled physical therapy services. OP PT Goals Goal 1: Patient to be independent in a HEP in 3-4 weeks Goal 1 Status: Patient reports being consistent with HEP but required cueing for correct pe rformance Goal 2: Patient to be able to report full 100% confidence in walking in crowded shopping ar ea and being bumped Goal 2 Status: In progress Electronically signed by: Satish Izaguirre PT, 09/20/2017 8:42 Patient Name: Chaya Chan/: 1940/ documented in this e ncounter Plan of Treatment Not on filedocumented as of this encounter Visit Diagnoses + + | Diagnosis | + + | Benign paroxysmal positional vertigo, unspecified laterality | + + documented in this encounter
--- OUTSIDE RECORDS SUMMARY | ~2019-07-30 | XMS | Encounter Summary ---
Demographics + + + | Address | [address] | | | [place] [address] | + + + | Home Phone [...] + + | Author | [facility] | | | and [place] | + + + | Organization | [facility] | | [...] Team Providers + +------+ + | Care Roustabout Crew Leader Name | Role | Phone | + [...] Description | +--------+--------+ + + + | 01/24/ | Refill | [facility] | Brandon Franco, | Medication Refill | | 2013 | | [facility] | [place] [address] | | | | | [facility] [address] | [place] [address] | | | | | [address] | [phone] | | | | | [place], [place] | | | | | | [address] | | | | | | [phone] | | | +--------+--------+ + + + [...]
--- OUTSIDE RECORDS SUMMARY | ~2019-07-30 | XMS | Encounter Summary ---
Demographics + + + | Address | [address] | | | [place] [address] | + + + | Home Phone | | + + + | Preferred Language | Unknown | + + + | Marital Status | | + + + | Sikh Affiliation | 1001 | + + + | Race | Unknown | + + + | Ethnic Group | Unknown | + + + Author + + + | Author | [facility] | | | and [place] | + + + | Organization | [facility] | | | [...] Team Providers + +------+ + | Care Packing Room Supervisor Name | Role | Phone | + [...] | | | | | | | l[place] | | | | | | | coronary | | | | | | | artery | | | | | | | Coronary | | | | | | | atherosclero | | | | | | | sis of | | | | | | | lyt[place] | | | | | | | coronary | | | | | | | artery | | | | | | | Procedures | | | | | | | OH CABG, | | | | | | [...] | +--------+ + + + + | 12/24/ | Anesthesia | [facility] | Wade Kelly, | | | 2013 | Event | [facility] | [address] | | | | | OP [address] | [place] | | | | | [place] | [phone] | | | | | [phone] | | | | | | [phone] | | | +--------+ + + + + Anesthesia Record + + + + + | Procedure Name | Responsible | Anesthesia Start | Anesthesia Stop Time | | | Anesthesiologist | Time | | + + + + + | CABG X4, WITH EVH - | Wade Kelly MD | 12/24/13 1316 | 12/24/13 1923 | | RIGHT AND LEFT | | | | | SAPHENOUS VEIN,VOGEL | | | | | (N/A Chest) | | | | + + + + + +----+---+ + + | Da | T | Event | Comment | | te | i | | | | | m | | | | | e | | | +----+---+ + + | 06 | 1 | | | | /1 | 2 | | | | 0/ | 5 | | | | 20 | 4 | | | | 14 | | | | +----+---+ + + | | 1 | An Checkout | Pre-use anesthesia machine/equipment checkout | | | 3 | | | | | 0 | | | | | 1 | | | +----+---+ + + | | 1 | An Start | Reassessment prior to anesthesia induction/procedure. | | | 3 | | | | | 1 | | | | | 6 | | | +----+---+ + + | | 1 | Preoxygenat | | | | 3 | ed | | | | 2 | | | | | 7 | | | +----+---+ + + | | 1 | An | | | | 3 | Induction | | | | 3 | | | | | 0 | | | +----+---+ + + | | 1 | An | | | | 3 | Intubation | | | | 3 | | | | | 2 | | | +----+---+ + + | | 1 | Art Line | | | | 3 | Start | | | | 3 | | | | | 5 | | | +----+---+ + + | | 1 | Art Line | | | | 3 | Stop | | | | 4 | | | | | 5 | | | +----+---+ + + | | 1 | CVC Start | | | | 3 | | | | | 4 | | | | | 8 | | | +----+---+ + + | | 1 | CVC Stop | | | | 4 | | | | | 0 | | | | | 5 | | | +----+---+ + + | | 1 | Antibiotic | | | | 4 | Given | | | | 0 | | | | | 7 | | | +----+---+ + + | | 1 | ERIN Probe | ERIN probe placed by me without problems | | | 4 | Placement | | | | 0 | | | | | 7 | | | +----+---+ + + | | 1 | Quick Note | Autologous unit of blood taken off patient | | | 4 | | | | | 4 | | | | | 5 | | | +----+---+ + + | | 1 | An CV | | | | 5 | Bypass init | | | | 5 | | | | | 0 | | | +----+---+ + + | | 1 | An Clamp On | | | | 5 | | | | | 5 | | | | | 1 | | | +----+---+ + + | | 1 | An Clamp | | | | 7 | Off | | | | 2 | | | | | 5 | | | +----+---+ + + | | 1 | An CV | | | | 7 | Bypass | | | | 3 | cease | | | | 4 | | | +----+---+ + + | | 1 | Quick Note | Autologous unit given back to patient | | | 7 | | | | | 5 | | | | | 0 | | | +----+---+ + + | | 1 | Quick Note | Patient will be transported to ICU intubated and sedated | | | 9 | | | | | 0 | | | | | 3 | | | +----+---+ + + | | 1 | Quick Note | Patient transported to ICU intubated and sedated full report | | | 9 | | given, B/P 95/58, O2 sats 98%, HR 60. VSS. | | | 2 | | | | | 2 | | | +----+---+ + + | | 1 | An Stop | Patient handed off to recovery nurse. | | | 2 | | | | | 3 | | | +----+---+ + + +------+ | Meds | +------+ + + + | Name | Total | + + + | midazolam | 5 mg | + + + | fentaNYL (Intravenous) | 1,700 mcg | + + + | etomidate | 18 mg | + + + | rocuronium | 150 mg | + + + | ePHEDrine | 10 mg | + + + | phenylephrine | 200 mcg | + + + | heparin | 22,000 Units | + + + | protamine | 180 mg | + + + | aminocaproic acid | 10 g | + + + | cefazolin in NS (ANCEF) IVPB 2 g | 3 g | + + + | propofol (Infusion) | 432.68 mg | + + + | nitroprusside | 716.16 mcg | + + + | NS (Infusion) | 1,000 mL | + + + | NS (Infusion) | 1,500 mL | + + + + + | Name | + + | N2O Flow Rate (L/Min) | + + | O2 Flow Rate (L/Min) | + + | Insp O2 | + + | Exp N2O | + + | Exp ISO | + + | Air Flow Rate (L/Min) | + + + + | No blood administrations on file. | + + +--------+ + + + | Type | Details | Placement | Removal | +--------+ + + + | Airway | Placement Date: 12/24/13; | 12/24/13 1332 by | 12/24/13 2236 by | | | Placement Time: 1332; Mask | Wade Kelyl MD | Tonia Farah, [employer] COORDINATOR | | | Ventilation: EZ; Airway Grade: I; | | | | | Successful Technique: Mac; | | | | | Laryngoscope Blade Size: 3; | | | | | Attempts: 1; Airway Type: | | | | | endotracheal, oral, cuffed; Size: | | | | | 8; Trauma: none; Placement | | | | | Check: verified by capnography, | | | | | verified by auscultation; Placed | | | | | By: Anesthesiologist; Removal: | | | | | removed by RT; Removal Date: | | | | | 12/24/13; Removal Time: 6 | | | +--------+ + + + | Arteri | 12/24/13; 1338; under GA; Right:; | 12/24/13 1338 by | 12/25/13 1039 by | | al | radial artery; 20 gauge; | Wade Kelly MD | Veronica Sarmiento, | | Line | continuous blood pressure | | RN | | | monitoring, frequent blood gas | | | | | measurement; ultrasound guided; | | | | | placed by Robin FRANKEL; 12/25/13; | | | | | 1039 | | | +--------+ + + + | Urethr | 12/24/13; 1355; indicated due to | 12/24/13 1355 by | 12/25/13 1430 by | | al | specific surgical procedure; | Sisi Louis, | Veronica Sarmiento, | | Cathet | indwelling catheter with core | RN | RN | | er | temperature probe; 100% silicone; | | | | | 16; 1; 10; 10; drainage bag to | | | | | dependent drainage; 12/25/13; | | | | | 1430 | | | +--------+ + + + | [READ | 12/24/13; 1405; Yes; Yes; Yes; | 12/24/13 1405 by | 12/25/13 1306 by | | ONLY] | elective; under GA; ultrasound | Wade Kelly MD | Veronica Sarmiento, | | [facility] | guided; placed by Robin FRANKEL; | | RN | | l Line | pressure transduced, PVC's | | | | - | induced; all ports aspirated | | | | Quad | blood; 12/25/13; 1306 | | | | Lumen | | | | +--------+ + + + | Read | 12/24/13; 1626; Right; leg; | 12/24/13 1626 by | 10/09/18 1342 by | | only - | 10/09/18 (Completed/Removed by | Sisi Louis, | User Epic | | | Utility); 1342 (Completed/Removed | RN | | | Incisi | by Utility) | | | | on | | | | +--------+ + + + | Read | 12/24/13; 1626; chest; 10/09/18 | 12/24/13 1626 by | 10/09/18 1342 by | | only - | (Completed/Removed by Utility); | Sisi Louis, | User Epic | | | 1342 (Completed/Removed by | RN | | | Incisi | Utility) | | | | on | | | | +--------+ + + + | Read | 12/24/13; 1626; Left; leg; | 12/24/13 1626 by | 10/09/18 1342 by | | only - | 10/09/18 (Completed/Removed by | Sisi Louis, | User Epic | | | Utility); 1342 (Completed/Removed | RN | | | Incisi | by Utility) | | | | on | | | | +--------+ + + + | Pacema | 12/24/13; 173; epicardial | 12/24/13 1736 by | 12/30/13 0730 by | | ker | (ventricular); 12/30/13; 0730 | Asia Hadley RN | Ayanna Joyner V, | | | | | RN | +--------+ + + + | Chest | 06/10/14; 1736; Dr. Viera; 1; | 12/24/13 1736 by | 12/25/13 1122 by | | Tube Y | anterior; mediastinal; 19 Fr. | Asia Hadley RN | Veronica Sarmiento, | | 123 | (mirian drain); 2; anterior; | | RN | | | (pericardial); 19 Fr. (mirian | | | | | drain); 3; pleural (left chest); | | | | | 19 Fr. (mirian drain); 12/25/13; | | | | | 1122 | | | +--------+ + + + documented in this encounter Social History + +-------+ +--------+------+ | Tobacco [...] Visit Diagnoses Not on filedocumented in this encounter Administered Medications + +--------+ +------+------+------+ | Medication Order | MAR | Action | Dose | Rate | Site | | | Action | Date | | | | + +--------+ +------+------+------+ | aminocaproic acid (AMICAR) | Given | 12/25/19 | 10 g | | | | injection Intravenous, PRN, | | 14 5:40 | | | | | Starting 12/24/13 at 1740, | | PM PDT | | | | | Anesthesia Intra-op | | | | | | + +--------+ +------+------+------+ +---+---+ | | | +---+---+ + +-------+ +-----+---+---+ | cefazolin in NS (ANCEF) IVPB 2 | Given | 12/25/19 | 1 g | | | | g 2 g, Intravenous, Administer | | 14 5:55 | | | | | over 30 Minutes, Prior to | | PM PDT | | | | | Incision, Starting 12/24/13 at | | | | | | | 0854, For 1 dose, To bedside to | | | | | | | send with patient to OR. To be | | | | | | | administered intraprocedurally., | | | | | | | Pre-op | | | | | | + +-------+ +-----+---+---+ +-------+ +-----+---+---+ | Given | 12/25/19 | 2 g | | | | | 14 2:07 | | | | | | PM PDT | | | | +-------+ +-----+---+---+ +---+---+ | | | +---+---+ + +-------+ +-------+---+---+ | ePHEDrine 50 mg/mL injection | Given | 12/25/19 | 10 mg | | | | Intravenous, PRN, Starting Tue | | 14 1:30 | | | | | 12/24/13 at 1330, Anesthesia | | PM PDT | | | | | Intra-op | | | | | | + +-------+ +-------+---+---+ +---+---+ | | | +---+---+ + +-------+ +-------+---+---+ | etomidate (AMIDATE) injection | Given | 12/25/19 | 18 mg | | | | Intravenous, PRN, Starting Tue | | 14 1:30 | | | | | 12/24/13 at 1330, Anesthesia | | PM PDT | | | | | Intra-op | | | | | | + +-------+ +-------+---+---+ +---+---+ | | | +---+---+ + +-------+ +---------+---+---+ | fentaNYL injection | Given | 12/25/19 | 100 mcg | | | | Intravenous, PRN, Pain, Starting | | 14 6:15 | | | | | 12/24/13 at 1330, Anesthesia | | PM PDT | | | | | Intra-op | | | | | | + +-------+ +---------+---+---+ +-------+ +---------+---+---+ | Given | 12/25/19 | 100 mcg | | | | | 14 5:36 | | | | | | PM PDT | | | | +-------+ +---------+---+---+ | Given | 12/25/19 | 500 mcg | | | | | 14 3:20 | | | | | | PM PDT | | | | +-------+ +---------+---+---+ +---+---+ | | | +---+---+ + +-------+ +---------+---+---+ | heparin 1,000 units/mL | Given | 12/25/19 | 17,000 | | | | injection Intravenous, PRN, | | 14 3:12 | Units | | | | Starting 12/24/13 at 1450, | | PM PDT | | | | | Anesthesia Intra-op | | | | | | + +-------+ +---------+---+---+ +-------+ +--------+---+---+ | Given | 12/25/19 | 5,000 | | | | | 14 2:50 | Units | | | | | PM PDT | | | | +-------+ +--------+---+---+ +---+---+ | | | +---+---+ + +-------+ +------+---+---+ | midazolam (VERSED) 1 mg/mL | Given | 12/25/19 | 1 mg | | | | injection Intravenous, PRN, | | 14 6:44 | | | | | Anxiety, Starting 12/24/13 at | | PM PDT | | | | | 1316, Anesthesia Intra-op | | | | | | + +-------+ +------+---+---+ +-------+ +------+---+---+ | Given | 12/25/19 | 1 mg | | | | | 14 4:59 | | | | | | PM PDT | | | | +-------+ +------+---+---+ | Given | 12/25/19 | 1 mg | | | | | 14 3:29 | | | | | | PM PDT | | | | +-------+ +------+---+---+ +---+---+ | | | +---+---+ + + + + +-------+---+ | nitroprusside (NIPRIDE) | Rate/Dos | 12/25/19 | 0.1 | 0.1 | | | injection Intravenous, | e Change | 14 6:29 | mcg/kg/m | mL/hr | | | CONTINUOUS PRN, Starting Tue | | PM PDT | in | | | | 12/24/13 at 1815, Anesthesia | | | | | | | Intra-op | | | | | | + + + + +-------+---+ +---------+ + +-------+---+ | New Bag | 12/25/19 | 0.3 | 0.1 | | | | 14 6:15 | mcg/kg/m | mL/hr | | | | PM PDT | in | | | +---------+ + +-------+---+ +---+---+ | | | +---+---+ + +-------+ +---------+---+---+ | phenylephrine (JAXON-SYNEPHRINE) | Given | 12/25/19 | 100 mcg | | | | 10 mg/mL injection Intravenous, | | 14 3:44 | | | | | PRN, Starting Mon12/24/13 at | | PM PDT | | | | | 1526, Anesthesia Intra-op | | | | | | + +-------+ +---------+---+---+ +-------+ +---------+---+---+ | Given | 12/25/19 | 100 mcg | | | | | 14 3:26 | | | | | | PM PDT | | | | +-------+ +---------+---+---+ +---+---+ | | | +---+---+ + +---------+ + +-------+---+ | propofol infusion (DIPRIVAN) 10 | New Bag | 12/25/19 | 25 | 11.2 | | | mg/mL infusion Intravenous, | | 14 3:31 | mcg/kg/m | mL/hr | | | CONTINUOUS PRN, Starting Mon | | PM PDT | in | | | | 12/24/13 at 1531, Anesthesia | | | | | | | Intra-op | | | | | | + +---------+ + +-------+---+ +---+---+ | | | +---+---+ + +-------+ +--------+---+---+ | protamine injection | Given | 12/25/19 | 180 mg | | | | Intravenous, PRN, Starting Tue | | 14 5:40 | | | | | 12/24/13 at 1740, Anesthesia | | PM PDT | | | | | Intra-op | | | | | | + +-------+ +--------+---+---+ +---+---+ | | | +---+---+ + +-------+ +-------+---+---+ | rocuronium (ZEMURON) injection | Given | 12/25/19 | 30 mg | | | | Intravenous, PRN, Ventilator | | 14 5:29 | | | | | Dyssynchrony, Starting Tue | | PM PDT | | | | | 12/24/13 at 1330, Anesthesia | | | | | | | Intra-op | | | | | | + +-------+ +-------+---+---+ +-------+ +-------+---+---+ | Given | 12/25/19 | 20 mg | | | | | 14 4:59 | | | | | | PM PDT | | | | +-------+ +-------+---+---+ | Given | 12/25/19 | 20 mg | | | | | 14 3:28 | | | | | | PM PDT | | | | +-------+ +-------+---+---+ +---+---+ | | | +---+---+ + +---------+ +----+---+---+ | sodium chloride 0.9% (NS) | New Bag | 12/25/19 | mL | | | | infusion Intravenous, CONTINUOUS | | 14 2:00 | | | | | PRN, Starting 12/24/13 at | | PM PDT | | | | | 1316, Anesthesia Intra-op | | | | | | + +---------+ +----+---+---+ +---------+ +----+---+---+ | New Bag | 12/25/19 | mL | | | | | 14 1:16 | | | | | | PM PDT | | | | +---------+ +----+---+---+ +---+---+ | | | +---+---+ + +---------+ +----+---+---+ | sodium chloride 0.9% (NS) | New Bag | 12/25/19 | mL | | | | infusion Intravenous, CONTINUOUS | | 14 5:58 | | | | | PRN, Starting 12/24/13 at | | PM PDT | | | | | 1405, Anesthesia Intra-op | | | | | | + +---------+ +----+---+---+ +---------+ +----+---+---+ | New Bag | 12/25/19 | mL | | | | | 14 2:05 | | | | | | PM PDT | | | | +---------+ +----+---+---+ +---+---+ | | | +---+---+ documented in this encounter"
--- OUTSIDE RECORDS SUMMARY | ~2019-07-30 | XMS | Encounter Summary ---
Demographics + + + | Address | [address] | | | [place] [address] | + + + | Home Phone | | + + + | Preferred Language | Unknown | + + + | Marital Status | | + + + | Religion Affiliation | 1001 | + + + | Race | Unknown | + + + | Ethnic Group | Unknown | + + + Author + + + | Author | [facility] | | | and [place] | + + + | Organization | [facility] | | | [...] Team Providers + +------+ + | Care Glass Checker Name | Role | Phone | + +------+ + | Pepper Sneed MD | PCP | | + +------+ + Reason for Referral Diagnostic/Screening (Routine) +--------+ + + + + + | Status | Reason | Specialty | Diagnoses / | Referred By | Referred To | | | | | Procedures | Contact | Contact | +--------+ + + + + + | Closed | Specialty | Radiology | Diagnoses | Ricky, | [facility] Echo | | | Services | | Coronary | MD Pepper | [address] | | | Required | | artery | [address] | | | | | disease due | [address] | [place], [place] | | | | | to calcified | Ave[address] | [address] | | | | | coronary | [place], [place] | Phone: | | | | | lesion | [address] | [phone] | | | | | Chronic | Phone: | Fax: | | | | | diastolic | [phone] | [phone] | | | | | CHF | Fax: | | | | | | (congestive | [phone] | | | | | | heart | | | | | | | failure), | | | | | | | NYHA class 2 | | | | | | | (HCC) | | | | | | | Procedures | | | | | | | ECHO | | | | | | | Complete | | | | | | | echo | | | | | | | complete | | | +--------+ + + + + + Reason for Visit + + + | Reason | Comments | + + + | Follow-up | | + + + Encounter Details +--------+---------+ + + + | Date | Type | Department | Care Team | Description | +--------+---------+ + + + | 11/10/ | Office | [facility] | Pepper Sneed MD | Benign essential | | 2017 | Visit | [facility] | [address] | hypertension | | | | Internal Medicine | [place] [address] | (Primary Dx); | | | | [address] [facility] | [phone] | Obstructive sleep | | | | [place], [place] | | apnea; Coronary | | | | [address] | | artery disease due | | | | [phone] | | to calcified | | | | | | coronary lesion; | | | | | | Acquired | | | | | | hypothyroidism; | | | | | | Hyperlipidemia, | | | | | | unspecified | | | | | | hyperlipidemia type; | | | | | | Restless legs | | | | | | syndrome (RLS); | | | | | | Chronic diastolic | | | | | | CHF (congestive | | | | | | heart failure), NYHA | | | | | | class 2 (HCC); | | | | | | Bilateral carotid | | | | | | artery disease (HCC) | +--------+---------+ + + + Social History [...] + + + | Blood Pressure | 159/77 | 11/10/2016 9:22 AM | | | | | PDT | | + + + + + | Pulse | 69 | 11/10/2016 9:22 AM | | | | | PDT | | + + + + + | Temperature | - | - | | + + + + + | Respiratory Rate | 20 | 11/10/2016 9:22 AM | | | | | PDT | | + + + + + | Oxygen Saturation | 97% | 11/10/2016 9:22 AM | | | | | PDT | | + + + + + | Inhaled Oxygen | - | - | | | Concentration | | | | + + + + + | Weight | 79.8 kg (176 lb) | 11/10/2016 9:22 AM | | | | | PDT | | + + + + + | Height | 165.1 cm (5' 5") | 11/10/2016 9:22 AM | | | | | PDT | | + + + + + | Body Mass Index | 29.29 | 11/10/2016 9:22 AM | | | | | PDT [...] of this encounter Patient Instructions Patient Instructions Pepper Sneed MD - 11/10/2016 11:43 PM PDTEstablished High Blood Press ure High blood pressure (hypertension) is a chronic disease. Often health care providers don t know what causes it. But it can be caused by certain health conditions and medicines. If you have high blood pressure, you may not have any symptoms. If you do have symptoms, th ey may include headache, dizziness, changes in your vision, chest pain, and shortness of vira ath. But even without symptoms, high blood pressure that s not treated raises your risk fo r heart attack and stroke. High blood pressure is a serious health risk and shouldn t be i gnored. A blood pressure reading is made up of two numbers: a higher number over a lower number.T he top number is the systolic pressure. The bottom number is the diastolic pressure.A norm al blood pressure is less than 120 over less than 80. High blood pressure is when either t he top number is 140 or higher, or the bottom number is 90 or higher. This must be the resul t when taking your blood pressure a number of times.The blood pressures between normal and high are called prehypertension. Home care If you have high blood pressure, you should do what is listed below to lower your blood pre ssure. If you are taking medicines for high blood pressure, these methods may reduce or end your need for medicines in the future. Begin a weight-loss program if you are overweight. Cut back on how much salt you get in your diet. Here s how to do this: Don t eat foods that have a lot of salt. These include olives, pickles, smoked meats, and salted potato chips. Don t add salt to your food at the table. Use only small amounts of salt when cooking. Begin an exercise program. Talk with your health care provider about the type of exercis e program that would be best for you. It doesn't have to be hard. Even brisk walking for 20 minutes 3 times a week is a good form of exercise. Don t take medicines that have heart stimulants. This includes many cold and sinus dec ongestant pills and sprays, as well as diet pills. Check the warnings about hypertension on the label. Stimulants such as amphetamine or cocaine could be lethal for someone with high b lood pressure. Never take these. Limit how much caffeine you get in your diet. Switch to caffeine-free products. Stop smoking. If you are a long-time smoker, this can be hard. Enroll in a stop-smoking program to make it more likely that you will quit for good. Learn how to handle stress. This is an important part of any program to lower blood pres sure. Learn about relaxation methods like meditation, yoga, or biofeedback. If your provider prescribed medicines, take them exactly as directed. Missing doses may cause your blood pressure get out of control. Consider buying an automatic blood pressure machine. You can get one of these at most [facility]. Use this to watch your blood pressure at home. Give the results to your provider. Follow-up care You will need to make regular visits to your health care provider. This is to check your bl ood pressure and to make changes to your medicines. Make a follow-up appointment as directed . When to seek medical advice Call your health care provider right away if any of these occur: Chest pain or shortness of breath Severe headache Throbbing or rushing sound in the ears Nosebleed Sudden severe pain in your belly (abdomen) Extreme drowsiness, confusion, or fainting Dizziness or dizziness with a spinning sensation (vertigo) Weakness of an arm or leg or one side of the face You have problems speaking or seeing Date Last Reviewed: 06/10/201419991007-0990 [employer]. [address] [place] [address]. All [facility] reserved. This information is not intended as a substitute for professional medical care. Always follow your healthcare professional's instructions. documented in this encounter Progress Notes Pepper Sneed MD - 11/10/2016 11:42 PM PDTFormatting of this note might be different from t eleonora original. [facility] CLINIC NOTE Patient Name: Markie Chan 75 y.o. Date of : 1940 MR Number: [id number] Date of Visit: 11/10/2016 Patient Active Problem List Diagnosis Hypothyroidism Hyperlipidemia Obstructive sleep apnea Restless legs syndrome (RLS) Benign essential hypertension Coronary artery disease CHRONIC SINUSITIS CEREBRAL ISCHEMIA Allergic reaction to contrast dye NSTEMI (non-ST elevated myocardial infarction) Chronic diastolic CHF (congestive heart failure), NYHA class 2 Stress hyperglycemia Paroxysmal atrial fibrillation Postoperative anemia due to acute blood loss Post pericardiotomy syndrome Pleural effusion on left Second degree AV block Benign paroxysmal positional vertigo Carotid artery stenosis Dizziness Bilateral carotid artery disease Subjective: Markie Chan is a 75 y.o. female patient here today for follow up. She was seen in e ED at the [facility] 3 weeks ago for hypertension. This is a new diagnosis for er. She had presented with headache and lightheadedness. She was started on hydrochlorothi azide and metoprolol succinate 25 mg daily. She had no chest pains or shortness of breath. She continues to use her CPAP regularly each night, averages 7-8 hours of sleep. No snorin g breakthrough. No excessive daytime sleepiness. Patient's medications, allergies, past medical, surgical, social and family histories were reviewed and updated as appropriate. Current Medications: Medication Sig Ascorbic Acid (VITAMIN C) 1000 MG tablet Take 1,000 mg by mouth Daily. aspirin 81 mg EC tablet Take 81 mg by mouth nightly. cyanocobalamin (VITAMIN B-12) 50 MCG tablet Take 50 mcg by mouth Daily. folic acid 1 mg tablet Take 1 tablet by mouth Daily. hydroCHLOROthiazide 25 mg tablet Take 25 mg by mouth Daily. levothyroxine (SYNTHROID, LEVOTHROID) 100 mcg tablet TAKE ONE TABLET BY MOUTH ONCE CLIVE Y IN THE MORNING BEFORE BREAKFAST magnesium, as oxide, (GNP MAGNESIUM) 250 MG tablet Take 250 mg by mouth 3 times daily. meclizine (ANTIVERT) 25 mg tablet Take 1 tablet by mouth every 6 hours as needed. metoprolol succinate (TOPROL-XL) 50 mg 24 hr tablet Take 1 tablet by mouth Daily. potassium 99 mg tablet Take 99 mg by mouth Daily. thyroid (NATURE-THROID, WESTHROID) 325 MG TABS Take 32.5 mg by mouth Daily. zinc sulfate 220 mg capsule Take 220 mg by mouth 2 times daily. Allergies Allergen Reactions Iodine Anaphylaxis Diltiazem Hcl Latex Lidocaine Red Dye Review of Systems Constitutional - no recent weight loss, no fever, no chills, no night sweats, no weaknes s EENT- no vision changes, no eye pain, no earache, no sore throat Cardiovascular - no chest pain, no palpitations Respiratory - no dyspnea, no orthopnea or PND, no cough, no hemoptysis, no wheezing Gastrointestinal - appetite good, bowel movements regular, no nausea, no abdominal pain , no melena or hematochezia Genitourinary - no dysuria, no gross hematuria, no nocturia Musculoskeletal - occasional joint pains, no back pain, no muscle aches Endocrine - no temperature intolerance, no excessive sweating Skin - no pruritus, no rash, no concerning skin lesions Neurological - rare headaches, no tremors, no dizziness, no syncope Psychiatric - no anxiety, no depression, no insomnia Objective: BP 159/77 mmHg | Pulse 69 | Resp 20 | Ht 1.651 m (5' 5") | Wt 79.833 kg (176 lb) | BMI 29.2 9 kg/m2 | SpO2 97% Gen Liang - alert, no distress, well-nourished HEENT - PERRLA, full EOM's, no icterus, no active nasal congestion, oral mucosa moist, p harynx clear Neck - supple, no lymphadenopathy, no JVD Lungs - clear breath sounds bilaterally, no rhonchi, no active wheezing, no crackles Chest wall - no tenderness or deformity Heart - regular rhythm, normal rate, no murmur, no gallop Abdomen - soft, non-tender, bowel sounds active, no organomegaly Extremities - no calf tenderness, no pedal edema, pulses intact Skin - no rash, no active lesions Neurologic - mental status clear, no focal deficits Assessment and Plan: Markie was seen today for follow-up. Diagnoses and all orders for this visit: Benign essential hypertension Obstructive sleep apnea Coronary artery disease due to calcified coronary lesion Acquired hypothyroidism Hyperlipidemia Restless legs syndrome Chronic diastolic CHF (congestive heart failure), NYHA class 2 (HCC) Bilateral carotid artery disease PLAN: Continue workup for new onset hypertension. Check echocardiogram and carotid duplex. Increase metoprolol succinate to 50 mg daily. Check labs including CBC, comprehensive metabolic, lipid panel, magnesium level, TSH with r eflex free T4. Order echocardiogram, carotid duplex studies. I'll get back to him with results of above l ab tests and the studies mentioned. We discussed the pathophysiology of sleep apnea and its treatment. The patient has been co mpliant with CPAP therapy and is clearly benefiting from it. I discussed the mechanism of a ction of CPAP in treating sleep apnea. I discussed desensitization techniques as well as janeth e imagery techniques that can be helpful. Also discussed the use of heated humidity. I enco uraged the patient to continue regular usage. Continue current medications. Follow-up in 4 months. Electronically signed by: Pepper Sneed 11/10/2016 23:42 [facility] documented in this encou nter Plan of Treatment Not on filedocumented as of this encounter Results VAS Carotid Duplex Bilateral (12/05/2016 11:00 AM PDT) + + | Specimen | + + | | + + + + + | Narrative | Performed At | + + + | Monika | [facility] | | [place] [address] [address] PATIENT | RUDI - | | NAME: Markie Chan : 1940: AGE: 76 | [facility] | | y.o.DATE OF SERVICE: 12/05/2016PRIMARY CARE: Pepper Sneed MD | | | ORDERING: Pepper Sneed MD NONINVASIVE CAROTID VASCULAR | | | EVALUATIONThe right and left sided extracranial carotid and vertebral | | | circulation was examined using ultrasound, pulsed wave Doppler and | | | color flow Doppler. The technical quality of the study was fair and | | | the study was technically limited due to tortuous vessels. Clinical | | | Indications: Coronary artery disease due to calcified coronary lesion, | | | Bilateral carotid artery disease (HCC) Findings: Murmur: NoneRight | | | BP: 120/80 Right Carotid Bruit: None Right Subclavian Bruit: NoneLeft | | | BP: 120/80 Left Carotid Bruit: None Left Subclavian Bruit: None Right | | | SideRCCAp 71 cm/sec Normal RCCAd 71 cm/sec Normal Right Bulb 102 | | | cm/sec less than 50% RECA 135 cm/sec Turbulence RICAp 103 cm/sec less | | | than 50% RICAd 65 cm/sec Normal Right Vertebral 33 cm/sec Normal Right | | | Subclavian 91 cm/sec Laminar ICA:CCA ratio : WNL Left SideLCCAp 64 | | | cm/sec Normal LCCAd 60 cm/sec Normal Left Bulb 62 cm/sec less | | | than 50% LECA 65 cm/sec Turbulence LICAp 96 cm/sec less than 50% | | | LICAd 58 cm/sec Normal Left Vertebral 23 cm/sec Normal Left | | | Subclavian 51 cm/sec Turbulence ICA:CCA ratio : WNL | | | | | | | | | Category % stenosis, | | | Normal/mild, PSV | | | <130 cm/sec, ICA:CCA <1.6 Moderate 50-69% , PSV 130-229 cm/sec, | | | EDV <70cm/sec, ICA:CCA 1.6-3.1 Severe >70%, PSV >230 cm/sec, EDV | | | >70cm/sec, ICA:CCA >3.2 Criteria from [facility] Proc. | | | [id number] | | | CONCLUSION: Mild stenosis (less than 50% diameter reduction) of the | | | MARLEE. Calcific plaque noted in the MARLEE.Mild stenosis (less than 50% | | | diameter reduction) of the right bulb. Calcific plaque noted in the | | | right bulb.Mild stenosis (less than 50% diameter reduction) of the | | | RECA. Calcific plaque noted in the RECA. Mild stenosis (less than 50% | | | diameter reduction) of the LICA. Calcific plaque noted in the | | | LICA.Mild stenosis (less than 50% diameter reduction) of the left | | | bulb. Calcific plaque noted in the left bulb.Mild stenosis (less than | | | 50% diameter reduction) of the LECA. Calcific plaque noted in the | | | LECA. Antegrade vertebral and normal subclavian artery flow | | | bilaterally. Recommend repeat study in one year and atherosclerotic | | | risk reduction. Electronically signed by: Erum Gerardo MD | | | 12/05/2016 16:28 [facility] Echo/Hydroelectric Operator 12/05/2016 | | | 12:46 | | |ICA:CCA ratio : WNL | | | | | | | | |Category % stenosis, | | |Normal/mild, PSV <130 cm/sec, ICA:CCA <1.6 | | |Moderate 50-69% , PSV 130-229 cm/sec, EDV <70cm/sec, ICA:CCA 1.6-3.1 | | |Severe >70%, PSV >230 cm/sec, EDV >70cm/sec, ICA:CCA >3.2 | | |Criteria from [facility] Proc. [id number] | | | | | |CONCLUSION: | | | | | |Mild stenosis (less than 50% diameter reduction) of the MARLEE. Calcific | | |plaque noted in the MARLEE. | | |Mild stenosis (less than 50% diameter reduction) of the right bulb. | | |Calcific plaque noted in the right bulb. | | |Mild stenosis (less than 50% diameter reduction) of the RECA. Calcific | | |plaque noted in the RECA. | | | | | |Mild stenosis (less than 50% diameter reduction) of the LICA. Calcific | | |plaque noted in the LICA. | | |Mild stenosis (less than 50% diameter reduction) of the left bulb. | | |Calcific plaque noted in the left bulb. | | |Mild stenosis (less than 50% diameter reduction) of the LECA. Calcific | | |plaque noted in the LECA. | | | | | |Antegrade vertebral and normal subclavian artery flow bilaterally. | | | | | | | | |Recommend repeat study in one year and atherosclerotic risk reduction. | | | | | |Electronically signed by: Erum Gerardo MD 12/05/2016 16:28 | | | | | |Cristiane Charles/Hydroelectric Operator 12/05/2016 12:46 | | | | | | | | | | | | | | | | | | | | + + + + + + + + | Performing | Address | City/State[facility] | Phone Number | | Organization | | | | + + + + + | [facility] | [facility], [address] | [place] [address] | [phone] | | - [facility]ING - [facility] | [place] | | | + + + + + ECHO Complete (12/05/2016 10:32 AM PDT) + + | Specimen | + + | | + + + +----- ---------+ | Narrative | Perf ormed At | + +----- ---------+ | | | | | | | Adult Echo | | | Report Name: | | | MARKIE CHAN Study Date: 12/05/2016MRN: | | | [id number] [facility] ECHODOB: | | | 1940 Age: 76 yrs | | | Gender: FemaleHeight: 65 in Weight: 176 | | | lb BSA: 1.9 [id number] For Study: CHF; CAD | | | INTERPRETATION SUMMARY:A complete two-dimensional transthoracic | | | echocardiogram was performed (2D,M-mode, Doppler and color flow | | | Doppler). 3D images were also obtained.Image reconstruction was | | | performed on the acquisition scanner. The studywas technically | | | adequate. Image quality was fair. The patient's rhythm wassinus | | | bradycardia.1. There is moderate concentric left ventricular | | | hypertrophy. There ismild inferior wall hypokinesis. Calculated left | | | ventricular ejectionfraction is 63% by 3-dimensional imaging. Visual | | | estimation is in thisrange as well.2. The right ventricular systolic | | | function is normal.3. The left atrium is severely dilated.4. The | | | mitral annulus is heavily calcified with thickened leaflets | | | noted.There is moderate central mitral valve regurgitation.5. Mild | | | aortic insufficiency.6. IVC morphology suggests elevated central | | | venous pressure. Pulmonaryartery pressure however appear to be within | | | normal limits. Left Ventricle:The left ventricle is normal in size. | | | There is moderate concentric leftventricular hypertrophy. Left | | | ventricular systolic function is normal.Left ventricular diastolic | | | dysfunction is suspected associated with apseudonormalization {II} | | | pattern. This E/e' ratio (>15) is suggestive ofelevated LV filling | | | pressures. Calculated left ventricular ejectionfraction is 63% by | | | 3-dimensional imaging. Visual estimation is in thisrange as well. | | | There is mild inferior wall hypokinesis. Right Ventricle:The right | | | ventricle is normal size. There is normal right ventricular | | | wallthickness. The right ventricular systolic function is normal. | | | TAPSE wasmeasured at 1.9 cm. (Normal value >1.8 cm). Atria:The left | | | atrium is severely dilated. The Left atrial index is 58 ml/m2.(normal | | | 16-34; mild = 35-41; mod = 42-48; severe >48). The right atrium | | | isborderline dilated. A dilated inferior vena cava suggests increased | | | rightatrial pressure. The IVC inspiratory collapse is normal at | | | greater than50%. No obvious septal defect is seen with color Doppler. | | | Mitral Valve:There is severe posterior mitral annular calcification. | | | There is moderatemitral regurgitation. Tricuspid Valve:The tricuspid | | | valve appears normal in structure and function. There istrace | | | tricuspid regurgitation. Right ventricular systolic pressure isnormal. | | | Aortic Valve:The aortic valve leaflets appear mildly calcified. The | | | aortic valve istrileaflet. The aortic valve opens well. No | | | hemodynamically significantvalvular aortic stenosis. Mild aortic | | | insufficiency. Pulmonic Valve:The pulmonic valve was partially | | | visualized and appears grossly normal instructure and function. Trace | | | pulmonic valvular regurgitation. Great Vessels:The aortic root is | | | normal size. The ascending aorta appears grosslynormal. | | | Pericardium/Pleural:There is no pericardial effusion. No pleural | | | effusions are seen. MMode/2D Measurements & CalculationsIVSd: 1.6 cm | | | LVIDd: 4.2 cmIVSs: 2.0 cm | | | LVIDs: 2.3 cm | | | LVPWd: 1.5 cm | | | LVPWs: 2.0 cmFS: 44.8 % | | | EPSS: 0.37 cmAo root diam: 2.9 cm asc Aorta | | | Diam: 2.7 cmACS: 1.3 cm desc Ao | | | Diam: 2.0 cmLA dimension: 4.6 cmLVOT diam: 2.0 cm Doppler Measurements | | | & CalculationsMV A dur: 0.12 sec MV | | | mean P.9 mmHgMV E max vane: 130.6 cm/sec | | | MVA(VTI): 2.5 cm2MV A max vane: 87.3 cm/secMV E/A: 1.5MV P1/2t max vane: | | | 112.3 cm/sec Ao V2 max: 149.3 cm/secMV P1/2t: 67.4 | | | msec Ao max P.9 mmHgMVA(P1/2t): | | | 3.3 cm2 Ao mean P.3 mmHgMV dec | | | time: 0.14 sec Ao V2 VTI: 44.2 cm | | | SANDRINE(I,D): 1.9 | | | cm2 | | | SANDRINE(V,D): 2.2 cm2AI dec slope: 65.5 cm/sec2 LV V1 | | | max P.2 mmHgAI P1/2t: 1078 msec | | | LV V1 mean P.6 mmHg | | | LV V1 max: 102.3 cm/sec | | | LV V1 VTI: 26.6 cmMR max vane: 466.9 | | | cm/sec SV(LVOT): 84.3 mlMR max P.2 mmHgMR | | | VTI: 187.2 cmPA V2 max: 81.1 cm/sec TR max | | | vane: 218.2 cm/secPA max P.6 mmHg | | | TR max P.0 mmHgPA mean P.8 mmHg | | | RVSP(TR): 27.0 mmHgRAP systole: 8.0 mmHg | | | E/E' Lateral: 27.3E/E' Medial: 27.8 Interpreting Physician: Erum | | | Obie Gerardo MDelectronically signed on 12/05/2016 04:20 PMOrdering | | | Physician: PEPPER SNEEDReferring Physician: RICKY | | | DIANEONEchocardiographer: Delbert [id number]: | | |LA dimension: 4.6 cm | | |LVOT diam: 2.0 cm | | | | | |Doppler Measurements & Calculations | | |MV A dur: 0.12 sec MV mean P.9 mmHg | | |MV E max vane: 130.6 cm/sec MVA(VTI): 2.5 cm2 | | |MV A max vane: 87.3 cm/sec | | |MV E/A: 1.5 | | |MV P1/2t max vane: 112.3 cm/sec Ao V2 max: 149.3 cm/sec | | |MV P1/2t: 67.4 msec Ao max P.9 mmHg | | |MVA(P1/2t): 3.3 cm2 Ao mean P.3 mmHg | | |MV dec time: 0.14 sec Ao V2 VTI: 44.2 cm | | | SANDRINE(I,D): 1.9 cm2 | | | | | | SANDRINE(V,D): 2.2 cm2 | | |AI dec slope: 65.5 cm/sec2 LV V1 max P.2 mmHg | | |AI P1/2t: 1078 msec LV V1 mean P.6 mmHg | | | LV V1 max: 102.3 cm/sec | | | LV V1 VTI: 26.6 cm | | |MR max vane: 466.9 cm/sec SV(LVOT): 84.3 ml | | |MR max P.2 mmHg | | |MR VTI: 187.2 cm | | |PA V2 max: 81.1 cm/sec TR max vane: 218.2 cm/sec | | |PA max P.6 mmHg TR max P.0 mmHg | | |PA mean P.8 mmHg RVSP(TR): 27.0 mmHg | | |RAP systole: 8.0 mmHg E/E' Lateral: 27.3 | | |E/E' Medial: 27.8 | | | | | |Interpreting Physician: Erum Gerardo MD | | |electronically signed on 12/05/2016 04:20 PM | | |Ordering Physician: PEPPER SNEED | | |Referring Physician: PEPPER SNEED | | |Internal Grinder: Delbert Soto | | |[id number]: | | | | | + +----- ---------+ + + | Procedure Note | + + | Mauricio, Rad Results In - 12/05/2016 4:22 PM PDT | | Adult Echo | | Report | | | | Name: AMRKIE CHAN Study Date: 12/05/2016 | | Patient Location: [facility] ECHO | | : 1940 Age: 76 yrs Gender: Female | | Height: 65 in Weight: 176 lb BSA: 1.9 m2 | | Reason For Study: CHF; CAD | | | | INTERPRETATION SUMMARY: | | A complete two-dimensional transthoracic echocardiogram was performed (2D, | | M-mode, Doppler and color flow Doppler). 3D images were also obtained. | | Image reconstruction was performed on the acquisition scanner. The study | | was technically adequate. Image quality was fair. The patient's rhythm was | | sinus bradycardia. | | 1. There is moderate concentric left ventricular hypertrophy. There is | | mild inferior wall hypokinesis. Calculated left ventricular ejection | | fraction is 63% by 3-dimensional imaging. Visual estimation is in this | | range as well. | | 2. The right ventricular systolic function is normal. | | 3. The left atrium is severely dilated. | | 4. The mitral annulus is heavily calcified with thickened leaflets noted. | | There is moderate central mitral valve regurgitation. | | 5. Mild aortic insufficiency. | | 6. IVC morphology suggests elevated central venous pressure. Pulmonary | | artery pressure however appear to be within normal limits. | | | | Left Ventricle: | | The left ventricle is normal in size. There is moderate concentric left | | ventricular hypertrophy. Left ventricular systolic function is normal. | | Left ventricular diastolic dysfunction is suspected associated with a | | pseudonormalization {II} pattern. This E/e' ratio (>15) is suggestive of | | elevated LV filling pressures. Calculated left ventricular ejection | | fraction is 63% by 3-dimensional imaging. Visual estimation is in this | | range as well. There is mild inferior wall hypokinesis. | | | | Right Ventricle: | | The right ventricle is normal size. There is normal right ventricular wall | | thickness. The right ventricular systolic function is normal. TAPSE was | | measured at 1.9 cm. (Normal value >1.8 cm). | | | | Atria: | | The left atrium is severely dilated. The Left atrial index is 58 ml/m2. | | (normal 16-34; mild = 35-41; mod = 42-48; severe >48). The right atrium is | | borderline dilated. A dilated inferior vena cava suggests increased right | | atrial pressure. The IVC inspiratory collapse is normal at greater than | | 50%. No obvious septal defect is seen with color Doppler. | | | | Mitral Valve: | | There is severe posterior mitral annular calcification. There is moderate | | mitral regurgitation. | | | | Tricuspid Valve: | | The tricuspid valve appears normal in structure and function. There is | | trace tricuspid regurgitation. Right ventricular systolic pressure is | | normal. | | | | Aortic Valve: | | The aortic valve leaflets appear mildly calcified. The aortic valve is | | trileaflet. The aortic valve opens well. No hemodynamically significant | | valvular aortic stenosis. Mild aortic insufficiency. | | | | Pulmonic Valve: | | The pulmonic valve was partially visualized and appears grossly normal in | | structure and function. Trace pulmonic valvular regurgitation. | | | | Great Vessels: | | The aortic root is normal size. The ascending aorta appears grossly | | normal. | | | | Pericardium/Pleural: | | There is no pericardial effusion. No pleural effusions are seen. | | | | MMode/2D Measurements & Calculations | | IVSd: 1.6 cm LVIDd: 4.2 cm | | IVSs: 2.0 cm LVIDs: 2.3 cm | | LVPWd: 1.5 cm | | LVPWs: 2.0 cm | | FS: 44.8 % EPSS: 0.37 cm | | Ao root diam: 2.9 cm asc Aorta Diam: 2.7 cm | | ACS: 1.3 cm desc Ao Diam: 2.0 cm | | LA dimension: 4.6 cm | | LVOT diam: 2.0 cm | | | | Doppler Measurements & Calculations | | MV A dur: 0.12 sec MV mean P.9 mmHg | | MV E max vane: 130.6 cm/sec MVA(VTI): 2.5 cm2 | | MV A max vane: 87.3 cm/sec | | MV E/A: 1.5 | | MV P1/2t max vane: 112.3 cm/sec Ao V2 max: 149.3 cm/sec | | MV P1/2t: 67.4 msec Ao max P.9 mmHg | | MVA(P1/2t): 3.3 cm2 Ao mean P.3 mmHg | | MV dec time: 0.14 sec Ao V2 VTI: 44.2 cm | | SANDRINE(I,D): 1.9 cm2 | | | | SANDRINE(V,D): 2.2 cm2 | | AI dec slope: 65.5 cm/sec2 LV V1 max P.2 mmHg | | AI P1/2t: 1078 msec LV V1 mean P.6 mmHg | | LV V1 max: 102.3 cm/sec | | LV V1 VTI: 26.6 cm | | MR max vane: 466.9 cm/sec SV(LVOT): 84.3 ml | | MR max P.2 mmHg | | MR VTI: 187.2 cm | | PA V2 max: 81.1 cm/sec TR max vane: 218.2 cm/sec | | PA max P.6 mmHg TR max P.0 mmHg | | PA mean P.8 mmHg RVSP(TR): 27.0 mmHg | | RAP systole: 8.0 mmHg E/E' Lateral: 27.3 | | E/E' Medial: 27.8 | | | | Interpreting Physician: Erum Gerardo MD | | electronically signed on 12/05/2016 04:20 PM | | Ordering Physician: PEPPER SNEED | | Referring Physician: PEPPER SNEED | | Internal Grinder: Delbert Soto | | [id number]: | + + Magnesium (11/10/2016 11:29 AM PDT) + +-------+ + + + | Component | Value | Ref Range | Performed | Pathologist | | | | | At | Signature | + +-------+ + + + | Magnesium | 2.6 | 1.7 - 2.6 mg/dL | [facility] | | | | [...] + + + | [facility] | [address] | [place] [address] | | | [facility] | | | | | LABORATORY | | | | + + + + + Lipid Panel (11/10/2016 11:29 AM PDT) + + + + + + | Component | Value | Ref Range | Performed | Pathologist | | | | | At | Signature | + + + + + + | Cholesterol | 221 (H) | <200 mg/dL | [facility] | | | | | | [facility] | [facility] | | | | | | [facility] | | + + + + + + | Triglycerid | 85 | <200 mg/dL | [facility] | | | es | | | [facility] | | [facility] | | | | | | [facility] | | + + + + + + | HDL | 61 | >35 mg/dL | [facility] | | | | | | [facility] | | | | | | [facility] | | + + + + + + | LDL, | 143 (H) | <100 mg/dL | [facility] | | | Calculated | | | [facility] | [facility] | | | | | | [facility] | | + + + + + + | Chol/HDL | 3.6 (L)Comment: | 3.7 - 6.7 Ratio | [facility] [...] + + + | [facility] | [address] | [place] [address] | | | [facility] | | | | | LABORATORY | | | | + + + + + TSH, Reflex Free T4 (11/10/2016 11:29 AM PDT) + + + + + + | Component | Value | Ref Range | Performed | Pathologist | | | | | At | Signature | + + + + + + | TSH | 4.547 (H) | 0.300 - 4.000 | [facility] | | | | | uIU/mL | [facility] | | | | | | [...] | + + + + + | [facility] | [address] | [place] [address] | | | [facility] | | | | | LABORATORY | | | | + + + + + Comprehensive Metabolic Panel (11/10/2016 11:29 AM PDT) + + + + + [...] + + + + | K | 4.1 | 3.5 - 5.1 | [facility] | [...] + + + + | CO2 | 28 | 21 - 32 mmol/L | [facility] | | | | | | [facility] | [facility] | | | | | | [facility] | | + + + + + + | Glucose | 95 | 60 - 114 mg/dL | [facility] [...] + + + + | Creatinine | 1.21 (H) | 0.5 - 1.2 mg/dL | [facility] | | | | | | [facility] | | | | | | [facility] | | + + + + + + | Calcium | 9.3 | 8.5 - 10.2 | [facility] | [...] + + + + | Albumin | 4.2 | 3.5 - 5.0 g/dL | [facility] | | | | | | [facility] | | | | | | [facility] | | + + + + + + | Bilirubin | 0.6 | 0.2 - 1.0 mg/dL | [facility] | | | Total | | | [facility] | | | | | | [facility] | | + + + + + + | Alkaline | 79 | 38 - 110 U/L | [facility] | | | Phosphatase | | | [facility] | | [facility] | | | | | | [facility] | | + + + + + + | AST | 23 | 5 - 40 U/L | [facility] | | | | | | [facility] | | | | | | [facility] | | + + + + + + | ALT | 30 | 12 - 78 U/L | [facility] [...] + + + + | Estimated | 46 (L)Comment: GFR <60: | >60 | [facility] [...] + + | [facility] | [address] | [place] [address] | | | [facility] | | | | | LABORATORY | | | | + + + + + CBC with Differential (11/10/2016 11:29 AM PDT) + + + + + [...] + + + + | RBC | 4.12 | 3.70 - 5.10 | [facility] | | | | | M/uL | [facility] | | | | | | [facility] | | + + + + + + | Hemoglobin | 12.6 | 11.3 - 15.5 | [facility] | | | | | g/dL | [facility] | | | | | | [facility] | | + + + + + + | Hematocrit | 37.2 | 34.0 - 46.0 % | [facility] | | | | | | [facility] | | | | | | [facility] | | + + + + + + | MCV | 90.4 | 80.0 - 100.0 fL | [facility] [...] + + + + | Platelet | 156 | 150 - 400 K/uL | [facility] [...] + + + + | % | 73.4 | 40.0 - 75.0 % | [facility] | | | Neutrophils | | | [facility] | | | | | | [facility] | | + + + + + + | % | 17.9 | 15.0 - 48.0 % | [facility] | | | Lymphocytes | | | [facility] | | [facility] | | | | | | [facility] | | + + + + + + | % Monocytes | 5.9 | 0.0 - 12.0 % | [facility] | | | | | | [facility] | | | | | | [facility] | | + + + + + + | % | 2.2 | 0.0 - 7.0 % | [facility] | | | Eosinophils | | | [facility] | [facility] | | | | | | [facility] | | + + + + + + | % Basophils | 0.6 | 0.0 - 2.0 % | [facility] | | | | | | [facility] | | | | | | [facility] | | + + + + + + | % nRBC | 0.0 | /100 WBCs | [facility] | | | | | | [facility] | | | | | | [facility] | | + + + + + + | Absolute | 3.80 | 1.90 - 7.40 | [facility] | | | Neutrophils | | K/uL | [facility] | | | | | | [facility] | | + + + + + + | Absolute | 0.90 (L) | 1.00 - 3.90 | [facility] | | | Lymphocytes | | K/uL | [facility] | | | | | | [facility] | | + + + + + + | Absolute | 0.30 | 0.00 - 0.80 | [facility] | [...] + + | [facility] | [address] | [place] [address] | | | [facility] | | | | | LABORATORY | | | | + + + + + documented in this encounter Visit Diagnoses + + | Diagnosis | + + | Benign essential hypertension - Primary Essential hypertension, benign | + + | Obstructive sleep apnea Obstructive sleep apnea (adult) (pediatric) | + + | Coronary artery disease due to calcified coronary lesion | + + | Acquired hypothyroidism Unspecified hypothyroidism | + + | Hyperlipidemia, unspecified hyperlipidemia type | + + | Restless legs syndrome (RLS) | + + | Chronic diastolic CHF (congestive heart failure), NYHA class 2 (HCC) | + + | Bilateral carotid artery disease (HCC) Unspecified disorders of arteries and | | arterioles | + + documented in this encounter
--- OUTSIDE RECORDS SUMMARY | ~2019-07-30 | XMS | Clinical Summary ---
Demographics + + + | Address | [address] | | | [place] [address] | + + + | Home Phone | | + + + | Preferred Language | Unknown | + + + | Marital Status | | + + + | Jainism Affiliation | [id number] | + + + | Race | Unknown | + + + | Ethnic Group | Unknown | + + + Author + + + | Author | [facility] | | | and [place] | + + + | Organization | [facility] | | | [...] Team Providers + +------+ + | Care Computer Systems Support Specialist Name | Role | Phone | + +------+ + | Doug García MD | PCP | | + +------+ + Allergies + + + + + + | Active Allergy | Reactions | Severity | Noted | Comments | | | | | Date | | + + + + + + | Diltiazem Hcl | | | 09/23/19 | | | | | | 09 | | + + + + + + | Food | Other (See Comments) | Low | 07/25/19 | | | | | | 19 | | + + + + + + | Iodine | Anaphylaxis | High | 12/18/19 | | | | | | 14 | | + + + + + + | Latex | Anaphylaxis | High | 12/18/19 | | | | | | 14 | | + + + + + + | Lidocaine | Other (See Comments) | Medium | 12/18/19 | | | | | | 14 | | + + + + + + | Red Dye | Other (See | High | 12/24/19 | "angina", numb | | | Comments), | | 14 | lips | | | Anaphylaxis | | | | + + + + + + | Tomato | Headache, Other (See | Low | 03/28/20 | | | | Comments) | | 18 | | + + + + + + Medications + + + +---------+------+------+-------+ | Medication | Sig | Dispensed | Refills | Star | End | Statu | | | | | | t | Date | s | | | | | | Date | | | + + + +---------+------+------+-------+ | nitroglycerin | Place 1 tablet under | 25 | 0 | 09/2 | | Activ | | (NITROSTAT) 0.4 mg | the tongue every 5 | tablet | | 0/20 | | e | | SL | minutes as needed | | | 18 | | | | tabletIndications: | for Chest pain. | | | | | | | Coronary artery | | | | | | | | disease due to | | | | | | | | calcified coronary | | | | | | | | lesion | | | | | | | + + + +---------+------+------+-------+ | levothyroxine | Take 50 mcg by mouth | | 0 | | | Activ | | (SYNTHROID) 50 mcg | every morning | | | | | e | | tablet | (before breakfast). | | | | | | + + + +---------+------+------+-------+ | rivaroxaban | Take 20 mg by mouth | | 0 | | | Activ | | (XARELTO) 20 mg | Daily (with dinner). | | | | | e | | tablet | | | | | | | + + + +---------+------+------+-------+ | famotidine | Take 20 mg by mouth | | 0 | | | Activ | | (PEPCID) 20 mg | Daily. | | | | | e | | tablet | | | | | | | + + + +---------+------+------+-------+ | docusate sodium | Take 100 mg by mouth | | 0 | | | Activ | | (COLACE) 100 mg | 2 times daily. | | | | | e | | capsule | | | | | | | + + + +---------+------+------+-------+ | acetaminophen | Take 1,000 mg by | | 0 | | | Activ | | (TYLENOL) 500 mg | mouth every 8 hours | | | | | e | | tablet | as needed for Fever | | | | | | | | or Headaches. | | | | | | + + + +---------+------+------+-------+ | Methylcellulose, | Take 500 mg by mouth | | 0 | | | Activ | | Laxative, (CITRUCEL) | Daily. | | | | | e | | 500 MG TABS | | | | | | | + + + +---------+------+------+-------+ | senna (SENNA) 8.6 | Take 1 tablet by | | 0 | | | Activ | | mg tablet | mouth Daily. | | | | | e | + + + +---------+------+------+-------+ | magnesium oxide | Take 1 tablet by | | 0 | 01/1 | | Activ | | (MAG-OX) 400 mg | mouth 3 times daily. | | | 3/20 | | e | | tablet | | | | 20 | | | + + + +---------+------+------+-------+ | lisinopril | Take 1 tablet by | 30 | 1 | 01/1 | | Activ | | (PRINIVIL, ZESTRIL) | mouth Daily. | tablet | | 3/20 | | e | | 5 mg tablet | | | | 20 | | | + + + +---------+------+------+-------+ | metoprolol | Take 1 tablet by | 60 | 1 | 01/1 | | Activ | | tartrate (LOPRESSOR) | mouth 2 times daily. | tablet | | 3/20 | | e | | 100 mg tablet | | | | 20 | | | + + + +---------+------+------+-------+ | aspirin 81 MG | Take 1 tablet by | 30 | 1 | 01/1 | | Activ | | tablet | mouth Daily. | tablet | | 3/20 | | e | | | | | | 20 | | | + + + +---------+------+------+-------+ | atorvaSTATin | Take 1 tablet by | 30 | 1 | 01/1 | | Activ | | (LIPITOR) 80 MG | mouth nightly. | tablet | | 3/20 | | e | | tablet | | | | 20 | | | + + + +---------+------+------+-------+ | isosorbide | Take 1 tablet by | 30 | 1 | 01/1 | | Activ | | mononitrate (IMDUR) | mouth Daily. | tablet | | 3/20 | | e | | 30 mg ER tablet | | | | 20 | | | + + + +---------+------+------+-------+ | Ascorbic Acid | Take 1,000 mg by | | 0 | | 01/1 | Disco | | (VITAMIN C) 1000 MG | mouth Daily. | | | | 3/20 | ntinu | | tablet | | | | | 20 | ed | | | | | | | | (Ther | | | | | | | | apy | | | | | | | | compl | | | | | | | | eted) | + + + +---------+------+------+-------+ | meclizine | Take 1 tablet by | 60 | 2 | 02/14 | 07/17 | Disco | | (ANTIVERT) 25 mg | mouth every 6 hours | tablet | | 2/20 | 3/20 | ntinu | | tabletIndications: | as needed. | | | 14 | 20 | ed | | Dizziness of unknown | | | | | | (Ther | | cause | | | | | | apy | | | | | | | | compl | | | | | | | | eted) | + + + +---------+------+------+-------+ | magnesium, as | Take 500 mg by mouth | | 0 | 09/2 | 07/17 | Disco | | oxide, (GNP | 3 times daily. | | | 08/05 | 10/03 | ntinu | | MAGNESIUM) 250 MG | | | | 11 | 20 | ed | | tablet | | | | | | (Dose | | | | | | | | | | | | | | | | adjus | | | | | | | | tment | | | | | | | | ) | + + + +---------+------+------+-------+ | cyanocobalamin | Take 50 mcg by mouth | | 0 | | 07/17 | Disco | | (VITAMIN B-12) 50 | Daily. | | | | 10/03 | ntinu | | MCG tablet | | | | | 20 | ed | | | | | | | | (Ther | | | | | | | | apy | | | | | | | | compl | | | | | | | | eted) | + + + +---------+------+------+-------+ | levothyroxine | TAKE ONE TABLET BY | 90 | 3 | 05/17 | 07/17 | Disco | | (SYNTHROID, | MOUTH ONCE DAILY IN | tablet | | 02/02 | 09/05 | ntinu | | LEVOTHROID) 100 mcg | THE MORNING BEFORE | | | 16 | 20 | ed | | tablet | BREAKFAST | | | | | (Dose | | | | | | | | | | | | | | | | adjus | | | | | | | | tment | | | | | | | | ) | + + + +---------+------+------+-------+ | CapsicumLinda, | Take by mouth | | 0 | | 01/1 | Disco | | (CAYENNE PEPPER PO) | Daily. | | | | 3/20 | ntinu | | | | | | | 20 | ed | | | | | | | | (Ther | | | | | | | | apy | | | | | | | | compl | | | | | | | | eted) | + + + +---------+------+------+-------+ | Coenzyme Q10 | Take by mouth | | 0 | | 01/1 | Disco | | (COQ-10 PO) | Daily. | | | | 3/20 | ntinu | | | | | | | 20 | ed | | | | | | | | (Ther | | | | | | | | apy | | | | | | | | compl | | | | | | | | eted) | + + + +---------+------+------+-------+ | Nutritional | Take by mouth | | 0 | | 01/1 | Disco | | Supplements (VITAMIN | Daily. | | | | 3/20 | ntinu | | D MAINTENANCE PO) | | | | | 20 | ed | | | | | | | | (Ther | | | | | | | | apy | | | | | | | | compl | | | | | | | | eted) | + + + +---------+------+------+-------+ | aspirin 81 MG | Take 1 tablet by | 30 | 5 | 08/17 | 07/17 | Disco | | tablet | mouth Daily. | tablet | | / | 3/20 | ntinu | | | | | | 18 | 20 | ed | | | | | | | | (Reor | | | | | | | | amado) | + + + +---------+------+------+-------+ | clopidogrel | Take 1 tablet by | 30 | 11 | 03/17 | 07/17 | Disco | | (PLAVIX) 75 mg | mouth Daily. | tablet | | 12/03 | 3/20 | ntinu | | tablet | | | | 18 | 20 | ed | + + + +---------+------+------+-------+ | isosorbide | Take 1 tablet by | 30 | 11 | / | 07/17 | Disco | | mononitrate (IMDUR) | mouth Daily. | tablet | | /20 | 3/20 | ntinu | | 30 mg ER tablet | | | | 18 | 20 | ed | | | | | | | | (Reor | | | | | | | | maado) | + + + +---------+------+------+-------+ | metoprolol | Take 3 tablets by | 90 | 11 | 03/18 | 07/17 | Disco | | succinate | mouth Daily. | tablet | | 0/20 | 2/20 | ntinu | | (TOPROL-XL) 25 mg 24 | | | | 18 | 20 | ed | | hr tablet | | | | | | (Dose | | | | | | | | | | | | | | | | adjus | | | | | | | | tment | | | | | | | | ) | + + + +---------+------+------+-------+ | metoprolol | Take 1 tablet by | 90 | 3 | 03/18 | 07/17 | Disco | | succinate | mouth Daily. | tablet | | 0/20 | 2/20 | ntinu | | (TOPROL-XL) 50 mg 24 | | | | 18 | 20 | ed | | hr tablet | | | | | | (Dose | | | | | | | | | | | | | | | | adjus | | | | | | | | tment | | | | | | | | ) | + + + +---------+------+------+-------+ | atorvaSTATin | Take 1 tablet by | 30 | 5 | 09/ | / | Disco | | (LIPITOR) 40 mg | mouth nightly. | tablet | | 0/20 | 3/20 | ntinu | | tablet | | | | 18 | 20 | ed | | | | | | | | (Reor | | | | | | | | amado) | + + + +---------+------+------+-------+ | metoprolol | Take 25 mg by mouth | | 0 | | /1 | Disco | | succinate | Daily. | | | | 3/20 | ntinu | | (TOPROL-XL) 25 mg 24 | | | | | 20 | ed | | hr tablet | | | | | | | + + + +---------+------+------+-------+ | lisinopril | Take 20 mg by mouth | | 0 | | 01/1 | Disco | | (PRINIVIL, ZESTRIL) | Daily. | | | | 3/20 | ntinu | | 20 mg tablet | | | | | 20 | ed | | | | | | | | (Reor | | | | | | | | amado) | + + + +---------+------+------+-------+ | lisinopril | Take 1 tablet by | 30 | 1 | 01/1 | 01/1 | Disco | | (PRINIVIL, ZESTRIL) | mouth Daily. | tablet | | 3/20 | 3/20 | ntinu | | 5 mg tablet | | | | 20 | 20 | ed | | | | | | | | (Reor | | | | | | | | amado) | + + + +---------+------+------+-------+ | aspirin 81 MG | Take 1 tablet by | 30 | 1 | 01/1 | 01/1 | Disco | | tablet | mouth Daily. | tablet | | 3/20 | 3/20 | ntinu | | | | | | 20 | 20 | ed | | | | | | | | (Reor | | | | | | | | amado) | + + + +---------+------+------+-------+ | atorvaSTATin | Take 1 tablet by | 30 | 1 | 01/1 | 01/1 | Disco | | (LIPITOR) 80 MG | mouth nightly. | tablet | | 3/20 | 3/20 | ntinu | | tablet | | | | 20 | 20 | ed | | | | | | | | (Reor | | | | | | | | amado) | + + + +---------+------+------+-------+ | isosorbide | Take 1 tablet by | 30 | 1 | 01/1 | 01/1 | Disco | | mononitrate (IMDUR) | mouth Daily. | tablet | | 3/20 | 3/20 | ntinu | | 30 mg ER tablet | | | | 20 | 20 | ed | | | | | | | | (Reor | | | | | | | | amado) | + + + +---------+------+------+-------+ | metoprolol | Take 1 tablet by | 60 | 1 | / | /1 | Disco | | tartrate (LOPRESSOR) | mouth 2 times daily. | tablet | | 3/20 | 3/20 | ntinu | | 100 mg tablet | | | | 20 | 20 | ed | | | | | | | | (Reor | | | | | | | | amado) | + + + +---------+------+------+-------+ | magnesium oxide | Take 400 mg by mouth | | 0 | | 01/1 | Disco | | (MAG-OX) 400 mg | Daily. | | | | 3/20 | ntinu | | tablet | | | | | 20 | ed | | | | | | | | (Reor | | | | | | | | amado) | + + + +---------+------+------+-------+ Active Problems + + + | Problem | Noted Date | + + + | Atrial fibrillation with RVR | 07/27/2019 | + + + | Non-STEMI (non-ST elevated myocardial infarction) | 03/29/2018 | + + + + + | Last Assessment & Plan: Max troponin 8.2, currently 3.9 | | 3rd NSTEMI this year | | No further chest pain and has ambulated this morning | | Plan: | | Beta candice, nitrates | | Medical management | | Plavix added | + + + + + | Mitral regurgitation | 08/24/2017 | + + + + + | Overview: 11/2016 Echo moderate mitral regurgitation . Last | | Assessment & Plan: 11/2016 Echo with moderate mitral | | regurgitation .Plan:Echo pending. | |Plan: | |Echo pending. | + + + + + | Cerebrovascular accident (CVA) due to occlusion of right middle | 08/17/2017 | | cerebral artery | | + + + + + | Last Assessment & Plan: History stroke with MRI on 07/18/17 | | showing possible small right parietal subcortical and left | | frontal parietal subcortical acute infarcts and old infarcts. | | Plan:Continue heparin gtt | + + + + + | History of stroke | 08/17/2017 | + + + | Bilateral carotid artery disease | 11/10/2016 | + + + | Dizziness | 08/20/2015 | + + + | Benign paroxysmal positional vertigo | 03/13/2014 | + + + | Carotid artery stenosis | 03/13/2014 | + + + | Paroxysmal atrial fibrillation | 12/26/2013 | + + + + + | Overview: 01/06/2014 Echo:Ejection Fraction = 55-60%. There is | | mild inferolateral wall hypokinesis.There is moderate concentric | | left ventricular hypertrophy.The left atrium is moderately | | dilated. The right atrium is borderlinedilated.Right ventricular | | systolic pressure is elevated at 30-40mmHg.Small pericardial | | effusion. There are no echocardiographic indications ofcardiac | | tamponade.Echo free space behind heart suggestive of large left | | pleural effusion.In comparing this study to the prior study of | | 12/24/2013, a smallpericardial effusion and a larger pleural | | effusion are now noted. Last Assessment & Plan: Continues in | | NSR | | | | | | Last Assessment & Plan: Continues in NSR | + + + + + | Stress hyperglycemia | 12/25/2013 | + + + + + | Last Assessment & Plan: Per diabetic team. | + + + + + | Chronic diastolic CHF (congestive heart failure), NYHA class 2 | 12/18/2013 | + + + + + | Overview: 12/24/2013 Echo:1. There is again noted proximal | | inferior and proximal inferolateralrelative hypokinesia. Due to | | concentric remodeling the overall ejectionfraction is still | | normal.There is moderate concentric left ventricular hypertrophy. | | The estimatedejection fraction is 60%.2. The right ventricle is | | normal in size and function.3. Doppler suggests tiny left to | | right interatrial shunt.4. The left atrium is moderately | | dilated.5. No thrombus is detected in the left atrial | | appendage.6. no clinically significant valvular dysfunction is | | noted. There is onlytrace aortic insufficiency.7. Mild | | atherosclerotic plaque(s) in the descending aorta.8. imaging was | | also done after Coronary artery bypass (CABG). No new wallmotion | | abnormalities are noted. Left ventricular ejection fraction | | isstill greater than 55%. Mitral and aortic valves still function | | well. Last Assessment & Plan: 08/25/17 echocardiogram showed | | ejection fraction of 65% with left ventricular hypertrophy, | | moderate MR, moderate aortic insufficiencyRecent outpatient | | myocardial infarction documented troponin of 15.2Recheck | | echocardiogram to assess ejection fraction.Continue on | | Metoprolol, consider addition of ACE1 if changed to ejection | | fraction | + + + + + | NSTEMI (non-ST elevated myocardial infarction) | 12/17/2013 | + + + + + | Overview: Formatting of this note might be different from the | | original.Troponin elevation admit 6/2/14: Ref. Range 12/15/2013 | | 21:41 12/16/2013 02:49 12/16/2013 10:13 TROPONIN I Latest Range: | | 0.00-0.29 ng/mL 0.39 (H) 4.57 (HH) 11.91 (HH) Last Assessment & | | Plan: Troponin peak at 0.25 and trending down. Long standing | | hx of CAD including NSTEMI requiring stent to circuflex and then | | 4V CABG with TEMI to LAD, SVG to OM, diagonal and RCA. Her EF | | was 50% with inferior wall hypokinesis at that time. She has a | | history of paroxysmal Afib which was felt to be isolated to her | | post-op CABG period. Her history is also notable for CVA of | | unknown date, head CT performed in 2011 showed extensive small | | vessel ischemic changes and chronic lacunar infarcts. She has | | mild bilateral carotid stenosis documented less than a year ago. | + + + + + | Allergic reaction to contrast dye | 12/16/2013 | + + + + + | Overview: History of term patient of dye allergy-will need to | | be medicated | + + + + + | CEREBRAL ISCHEMIA | 03/06/2012 | + + + | CHRONIC SINUSITIS | 06/28/2011 | + + + + + | Overview: ICD-10 Record update | + + + + + | Hypothyroidism | 12/30/2010 | + + + + + | Last Assessment & Plan: TSH at 3.1 | | Continue Synthroid | + + + + + | Hyperlipidemia | 12/30/2010 | + + + + + | Overview: Formatting of this note might be different from the | | original.Lipids 12/16/13: Ref. Range 12/16/2013 10:13 Cholesterol | | Latest Range: <200 mg/dL 115 HDL Cholesterol Latest Range: 40-59 | | mg/dL 53 LDL, Calculated Latest Range: <100 mg/dL 48 | | Triglycerides Latest Range: <150 mg/dL 70 Last Assessment & | | Plan: 09/06/16 lipid panel shows total cholesterol 138, | | triglycerides 148, HDL 53, LDL 63Continue atorvastatin | | | | Last Assessment & Plan: 09/06/16 lipid panel shows total cholesterol 138, triglycerides 148, HDL 53, LDL 63 | | | |Continue atorvastatin | + + + + + | Obstructive sleep apnea | 12/30/2010 | + + + + + | Overview: On CPAP | + + + + + | Restless legs syndrome (RLS) | 12/30/2010 | + + + | Benign essential hypertension | 12/30/2010 | + + + + + | Last Assessment & Plan: Intermittent hypertension, patient | | does note chest discomfort correlates to elevated blood | | pressuresCurrent systolic blood pressure 153Plan:Anti-anginal | | therapy increased this admission which will concomitantly treat | | her blood pressure | + + + + + | Coronary artery disease | 12/30/2010 | + + + + + | Overview: S/P N-STEMI 2004, 08/04/08, 03/31/11, 12/07/11. S/P | | drug eluting stents to circ. 11/15/05. 1.1. Status post 2.75 x 24 | | mm TAXUS stent and 2.5 x 20 mm TAXUS stent to a long diffuse | | circumflex lesion 11/16/05. 1.2. Normal left ventricular function | | 11/15/05. 1.3. Non-ST elevated myocardial infarction 03/31/11. NON | | [place] to CircX 3 1.4. History of non-ST elevated myocardial | | infarction in 2004. 1.5. Non-ST elevation acute myocardial | | infarction 08/04/08.Myocardial perfusion results:1. Myocardial | | perfusion imaging is abnormal.2. There is a large area of | | moderately reduced tracer uptake that is most consistent with | | ischemia in all lateral wall segments as well as the | | anterolateral base and the inferolateral base. There is mild | | persistence of the lateral wall defect proximally, so some degree | | of infarction or dense ischemia is present. The SDS score is 9 | | which is consistent with a high risk study. 3. Overall left | | ventricular systolic function is abnormal with regional wall | | motion abnormalities and the LVEF is 42%.CABG X 4 12/24/13 by | | Sj Viera: WITH EVH - RIGHT AND LEFT SAPHENOUS VEIN,AMI/P | | NSTEMI 10/26/13 in [place] Rxd medically; Echo EF 50% with | | inferior hypokinesis08/25/17 nuclear showing moderate reversible | | lateral wall ischemia08/25/17 cardiac cath showing sun'aq 100% | | RCA, 100% mid LAD, 100% OM 2, 100% diagonal; patent VOGEL to LAD, | | patent saphenous vein graft RCA, occluded saphenous vein graft to | | diagonal, occluded saphenous vein graft OM 2; preserved LV | | function; nuclear ischemia likely secondary to occluded but | | collateralized OM 2 branches. Medical treatment Last Assessment | | & Plan: Recent non-ST elevation myocardial infarction with | | hospitalization approximately one week ago. Denies recurrent | | significant chest pain symptoms. Underwent catheterization | | revealing somewhat diffuse small branch disease but no obvious | | area for intervention. Will continue current medical regimen. | | Explained potential to increase Imdur to either 60 mg daily or 30 | | mg twice a day if recurrent anginal symptoms with activity. | | Suggest use of sublingual nitroglycerin as well. We'll continue | | current beta candice regimen at 75 mg daily. She will check her | | blood pressures periodically. I hope that she will continue to | | do well on medical management. We will plan to see her back in 6 | | months or sooner if symptoms worsen. | + + Resolved Problems + + + + | Problem | Noted | Resolved | | | Date | Date | + + + + | Dizziness of unknown cause | 02/26/20 | | | | 14 | 6 | + + + + + + | Last Assessment & Plan: Seems to be resolved on meclizine and | | she does not describe lightheadedness or pre-syncope. No cardiac | | symptoms, and she is tolerating her exercise regimen very well. | | Continue management as per Dr. García. | + + + + + + | Pleural effusion on left | 01/13/20 | | | | 14 | 8 | + + + + | Second degree AV block | 01/13/20 | | | | 14 | 8 | + + + + + + | Last Assessment & Plan: The patient had a short run of Jan | | type II. Continue to monitor on telemetry unit. 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 Range 12/25/2013 | | 03:46 12/27/2013 03:52 12/28/2013 02:10 12/29/2013 04:28 12/30/2013 | | 01:52 Hgb No range found 8.1 (L) 7.5 (L) 7.0 (L) 6.8 (L) 7.9 (L) | | Hct, Final No range found 24.3 (L) 22.0 (L) 20.1 (L) 20.3 (L) | | 23.1 (L) Last Assessment & Plan: Recheck blood count in the | | morning. | | Last Assessment & Plan: Recheck blood count in the morning. | + + + + + + | Nausea | 12/12/19 | | | | 14 | 6 | + + + + | CARDIOMYOPATHY DILATED ISCHEMIC | 06/28/20 | | | | 11 | 4 | + + + + + + | Overview: EF 42% by nuclear stress study 12/16/13. Last | | Assessment & Plan: Euvolemic at present with stable weights. | + + Encounters +--------+ + + + + | Date | Type | Specialty | Care Team | Description | +--------+ + + + + | 07/29/ | Orders Only | Pulmonology | Sonia Akers, PRE OWNED SALES MANAGER | | | 2019 | | | | | +--------+ + + + + | 07/27/ | Hospital | | Ronnie Holman | Atrial fibrillation | | 2019 - | Encounter | | MD Carrie | with RVR ([facility]); | | | | | | NSTEMI (non-ST | | 07/29/ | | | | elevated myocardial | | 2019 | | | | infarction) ([facility]); | | | | | | Coronary artery | | | | | | disease, angina | | | | | | presence | | | | | | unspecified, | | | | | | unspecified vessel | | | | | | or lesion type, | | | | | | unspecified whether | | | | | | sun'aq or | | | | | | transplanted heart; | | | | | | Paroxysmal atrial | | | | | | fibrillation (HCC); | | | | | | Hypothyroidism, | | | | | | unspecified type; | | | | | | SUMMER (obstructive | | | | | | sleep apnea) | +--------+ + + + + from Last 3 Months Family History + + +------+ + | Medical History | Relation | Name | Comments | + + +------+ + | Stroke | Mother | | | + + +------+ + | Heart disease | Neg Hx | | | + + +------+ + + +------+ + + | Relation | Name | Status | Comments | + +------+ + + | Brother | | | 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 | + +------+ + + | Brother | | Alive | | + +------+ + + | Brother | | Alive | | + +------+ + + | Father | | | unknown cause / old age | | | | (Age | | | | | 86) | | + +------+ + + | Mother | | | stroke complications | | | | (Age | | | | | 78) | | + +------+ + + | Sister | | | complications to paralysis | + +------+ + + | Sister | | Alive | | + +------+ + + | Sister | | Alive | | + +------+ + + | Sister | | Alive | | + +------+ + + Social History + +-------+ +--------+------+ [...] +---------+ + | Yes | | | Alcoholic | | | | | Drinks/day: very occ | + + +---------+ + + + [...] recent travel history available. | + + Last Filed Vital Signs + + + + + | Vital Sign | Reading | Time Taken | Comments | + + + + + | Blood Pressure | 113/56 | 07/29/2019 3:00 PM | | | | | PST | | + + + + + | Pulse | 82 | 07/29/2019 3:00 PM | | | | | PST | | + + + + + | Temperature | 37.1 C (98.8 F) | 07/29/2019 9:45 AM | | | | | PST | | + + + + + | Respiratory Rate | 19 | 07/29/2019 3:00 PM | | | | | PST | | + + + + + | Oxygen Saturation | 96% | 07/29/2019 3:00 PM | | | | | PST | | + + + + + | Inhaled Oxygen | - | - | | | Concentration | | | | + + + + + | Weight | 66.7 kg (147 lb) | 07/29/2019 8:00 AM | | | | | PST | | + + + + + | Height | 165.1 cm (5' 5") | 07/27/2019 12:58 PM | | | | | PST | | + + + + + | Body Mass Index | 24.46 | 07/27/2019 12:58 PM | | | | | PST | | + + + + + Plan of Treatment + + + + + | Health Maintenance | Due Date | Last Done | Comments | + + + + + | Vaccine: | | | | | Dtap/Tdap/Td (1 - | 2 | | | | Tdap) | | | | + + + + + | Vaccine: Zoster (1 | | | | | of 2) | 1 | | | + + + + + | Breast Cancer | | | | | Screening | 6 | | | + + + + + | Vaccine: | | | | | Pneumococcal 65+ (1 | 6 | | | | of 2 - PCV13) | | | | + + + + + | Adult Annual | | | | | Wellness Visit | 5 | | | + + + + + | Vaccine: Influenza | | | | | (#1) | 9 | | | + + + + + Procedures + +--------+ + + + | Procedure Name | Priori | Date/Time | Associated Diagnosis | Comments | | | ty | | | | + +--------+ + + + | NM NUCLEAR STRESS | Routin | 07/29/2019 | | Results for this | | TEST (PHARMACOLOGIC | e | 12:16 PM | | procedure are in the | | - VASODILATOR) | | PST | | results section. | + +--------+ + + + | PTT | Routin | 07/29/2019 | | Results for this | | | e | 12:02 PM | | procedure are in the | | | | PST | | results section. | + +--------+ + + + | PTT | STAT | 07/29/2019 | | Results for this | | | | 3:49 AM | | procedure are in the | | | | PST | | results section. | + +--------+ + + + | CBC NO DIFFERENTIAL | Routin | 07/29/2019 | | Results for this | | | e | 3:49 AM | | procedure are in the | | | | PST | | results section. | + +--------+ + + + | MAGNESIUM | Routin | 07/29/2019 | | Results for this | | | e | 3:49 AM | | procedure are in the | | | | PST | | results section. | + +--------+ + + + | BASIC METABOLIC | Routin | 07/29/2019 | | Results for this | | PANEL | e | 3:49 AM | | procedure are in the | | | | PST | | results section. | + +--------+ + + + | HEPARIN XA, | Routin | 07/29/2019 | | Results for this | | UNFRACTIONATED | e | 3:49 AM | | procedure are in the | | | | PST | | results section. | + +--------+ + + + | TROPONIN I | Routin | 07/29/2019 | | Results for this | | | e | 1:03 AM | | procedure are in the | | | | PST | | results section. | + +--------+ + + + | TROPONIN I | Routin | 07/28/2019 | | Results for this | | | e | 6:56 PM | | procedure are in the | | | | PST | | results section. | + +--------+ + + + | TROPONIN I | Routin | 07/28/2019 | | Results for this | | | e | 1:09 PM | | procedure are in the | | | | PST | | results section. | + +--------+ + + + | ECHO COMPLETE | Routin | 07/28/2019 | | Results for this | | | e | 10:22 AM | | procedure are in the | | | | PST | | results section. | + +--------+ + + + | PTT | Routin | 07/28/2019 | | Results for this | | | e | 10:20 AM | | procedure are in the | | | | PST | | results section. | + +--------+ + + + | ECG 12 LEAD | Routin | 07/28/2019 | | Results for this | | | e | 7:48 AM | | procedure are in the | | | | PST | | results section. | + +--------+ + + + | TROPONIN I | Routin | 07/28/2019 | | Results for this | | | e | 7:25 AM | | procedure are in the | | | | PST | | results section. | + +--------+ + + + | ECG 12 LEAD | Routin | 07/28/2019 | | Results for this | | | e | 4:44 AM | | procedure are in the | | | | PST | | results section. | + +--------+ + + + | PTT | Routin | 07/28/2019 | | Results for this | | | e | 3:39 AM | | procedure are in the | | | | PST | | results section. | + +--------+ + + + | PROTIME INR | Routin | 07/28/2019 | | Results for this | | | e | 3:39 AM | | procedure are in the | | | | PST | | results section. | + +--------+ + + + | MAGNESIUM | Routin | 07/28/2019 | | Results for this | | | e | 3:39 AM | | procedure are in the | | | | PST | | results section. | + +--------+ + + + | CBC WITH | Routin | 07/28/2019 | | Results for this | | DIFFERENTIAL | e | 3:39 AM | | procedure are in the | | | | PST | | results section. | + +--------+ + + + | BASIC METABOLIC | Routin | 07/28/2019 | | Results for this | | PANEL | e | 3:39 AM | | procedure are in the | | | | PST | | results section. | + +--------+ + + + | TROPONIN I | Routin | 07/28/2019 | | Results for this | | | e | 1:27 AM | | procedure are in the | | | | PST | | results section. | + +--------+ + + + | PTT | Timed | 07/27/2019 | | Results for this | | | | 10:09 PM | | procedure are in the | | | | PST | | results section. | + +--------+ + + + | ECG 12 LEAD | Routin | 07/27/2019 | | Results for this | | | e | 8:09 PM | | procedure are in the | | | | PST | | results section. | + +--------+ + + + | TROPONIN I | Routin | 07/27/2019 | | Results for this | | | e | 6:51 PM | | procedure are in the | | | | PST | | results section. | + +--------+ + + + | LIPID PANEL | Add-On | 07/27/2019 | | Results for this | | | | 1:08 PM | | procedure are in the | | | | PST | | results section. | + +--------+ + + + | TSH | Add-On | 07/27/2019 | | Results for this | | | | 1:08 PM | | procedure are in the | | | | PST | | results section. | + +--------+ + + + | HEMOGLOBIN A1C | Add-On | 07/27/2019 | | Results for this | | | | 1:08 PM | | procedure are in the | | | | PST | | results section. | + +--------+ + + + | HEPARIN XA, | Add-On | 07/27/2019 | | Results for this | | UNFRACTIONATED | | 1:08 PM | | procedure are in the | | | | PST | | results section. | + +--------+ + + + | LACTIC ACID | Routin | 07/27/2019 | | Results for this | | | e | 1:08 PM | | procedure are in the | | | | PST | | results section. | + +--------+ + + + | PROTIME INR | Routin | 07/27/2019 | | Results for this | | | e | 1:08 PM | | procedure are in the | | | | PST | | results section. | + +--------+ + + + | MAGNESIUM | Routin | 07/27/2019 | | Results for this | | | e | 1:08 PM | | procedure are in the | | | | PST | | results section. | + +--------+ + + + | TROPONIN I | Routin | 07/27/2019 | | Results for this | | | e | 1:08 PM | | procedure are in the | | | | PST | | results section. | + +--------+ + + + | COMPREHENSIVE | Routin | 07/27/2019 | | Results for this | | METABOLIC PANEL | e | 1:08 PM | | procedure are in the | | | | PST | | results section. | + +--------+ + + + | CBC WITH | Routin | 07/27/2019 | | Results for this | | DIFFERENTIAL | e | 1:08 PM | | procedure are in the | | | | PST | | results section. | + +--------+ + + + | ECG 12 LEAD | STAT | 07/27/2019 | | Results for this | | | | 1:07 PM | | procedure are in the | | | | PST | | results section. | + +--------+ + + + | CULTURE, MRSA | Routin | 07/27/2019 | | Results for this | | | e | 12:50 PM | | procedure are in the | | | | PST | | results section. | + +--------+ + + + from Last 3 Months Results NM Nuclear Stress Test (Vasodilator) (07/29/2019 12:16 PM PST) + +---------+ + + + | Component | Value | Ref Range | Performed | Pathologist | | | | | At | Signature | + +---------+ + + + | BASELINE | 97 | bpm | [facility] | | | HEART RATE | | | | | + +---------+ + + + | BASELINE | 174/139 | mmHg | [facility] | | | BLOOD | | | | | | PRESSURE | | | | | + +---------+ + + + | PEAK HEART | 125 | | [facility] | | | RATE | | | | | + +---------+ + + + | PEAK BLOOD | 174/139 | mmHG | [facility] | | | PRESSURE | | | | | + +---------+ + + + | Target HR | 121 | | [facility] | | + +---------+ + + + | Percent HR | 88 | | [facility] | | + +---------+ + + + | Max | 142 | | [facility] | | | Predicted | | | | | | HR | | | | | + +---------+ + + + | LVEF-SPECT | 38 | % | [facility] | | | NUCLEAR | | | | | | STRESS/VIAB | | | | | | ILITY | | | | | + +---------+ + + + | ST | 0.0 | mm | [facility] | | | Elevation | | | | | | (mm) | | | | | + +---------+ + + + + + | Specimen | + + | | + + + + + | Narrative | Performed At | + + + | 1. | [facility] | | Persantine EKG is negative.2. Abnormal Persantine sestamibi | | | myocardial perfusion imaging study with a medium size, moderate | | | severity, predominantly reversible defect of the entire inferolateral | | | wall. Findings suggest a medium size myocardial ischemia of a left | | | circumflex artery territory. Normal left ventricular size and wall | | | thickness. There is a hypokinesis of the inferolateral wall. | | | Overall, left ventricular systolic function is moderately reduced. | | | LVEF by gated SPECT is 38%. | | + + + + +---------+ + + | Performing | Address | City/State/Zipcode | Phone Number | | Organization | | | | + +---------+ + + | [facility] | | | | + +---------+ + + PTT (07/29/2019 12:02 PM PST)Only the most recent of 5 results within the time period is in cluded. + +--------+ + + + | Component | Value | Ref Range | Performed | Pathologist | | | | | At | Signature | + +--------+ + + + | aPTT | 59 (H) | 22 - 36 seconds | [facility] | | | | [facility] | | | [facility] | | | | [facility] - | | | | | | [facility]ATORY | | + +--------+ + + + + + | Specimen | + + | Blood | + + + + + + + | Performing | Address | City/State/Zipcode | Phone Number | | Organization | | | | + + + + + | [facility] | [address] | [place] | [phone] | | [facility] | | [address] | | | - LABORATORY | | | | + + + + + Heparin XA (07/29/2019 3:49 AM PST)Only the most recent of 2 results within the time mason gaytan is included. + +-------+ + + + | Component | Value | Ref Range | Performed | Pathologist | | | | | At | Signature | + +-------+ + + + | Heparin, | 0.67 | 0.30 - 0.70 | [facility] | | | Unfractiona | | IU/mL | [facility] | | | [facility] | | | [facility] | | | | | | [facility] - | | | | | | LABORATORY | | + +-------+ + + + + + | Specimen | + + | Blood | + + + + + | Narrative | Performed At | + + + | Unfractionated Heparin (UFH) Therapeutic range: 0.30 - 0.70 IU/mL | [facility] | | | [facility] | | | - LABORATORY | + + + + + + + + | Performing | Address | City/State/Zipcode | Phone Number | | Organization | | | | + + + + + | [facility] | [address] | [place] | [phone] | | [facility] | | [address] | | | - LABORATORY | | | | + + + + + CBC no Differential (07/29/2019 3:49 AM PST) + + + + + + | Component | Value | Ref Range | Performed | Pathologist | | | | | At | Signature | + + + + + + | WBC | 4.4 | 4.0 - 11.0 K/uL | [facility] | | | | | | [facility] | | | | | | [facility] | | | | | [facility] - | | | | | | LABORATORY | | + + + + + + | RBC | 3.43 (L) | 3.70 - 5.20 | [facility] | | | | | M/uL | [facility] | | | | | | [facility] | | | | | | C[facility] - | | | | | | LABORATORY | | + + + + + + | Hemoglobin | 10.6 (L) | 11.5 - 16.0 | [facility] | | | | | g/dL | [facility] | | | | | | [facility] | | | | | | CENTER - | | | | | | LABORATORY | | + + + + + + | Hematocrit | 32.0 (L) | 34.0 - 47.0 % | [facility] | | | | | | [facility] | | | | | | [facility] | | | | | | [facility] - | | | | | | LABORATORY | | + + + + + + | MCV | 93.3 | 83.0 - 101.0 fL | [facility] | | | | | | [facility] | | | | | | [facility] | | | | | | [facility] - | | | | | | LABORATORY | | + + + + + + | MCH | 30.9 | 28.0 - 35.0 pg | [facility] | | | | | | [facility] | | | | | | [facility] | | | | | | [facility] - | | | | | | LABORATORY | | + + + + + + | MCHC | 33.1 | 32.0 - 36.0 | [facility] | | | | | g/dL | [facility] | | | | | | [facility] | | | | | | C[facility] - | | | | | | LABORATORY | | + + + + + + | RDW-CV | 13.7 | <15.0 % | [facility] | | | | | | [facility] | | | | | | [facility] | | | | | | [facility] - | | | | | | LABORATORY | | + + + + + + | RDW-SD | 46.4 (H) | 35.1 - 46.3 fL | [facility] | | | | | | [facility] | | | | | | [facility] | | | | | | [facility] - | | | | | | LABORATORY | | + + + + + + | Platelet | 265 | 140 - 440 K/uL | [facility] | | | Count | | | [facility] | | | | | | [facility] | | | | | | [facility] - | | | | | | LABORATORY | | + + + + + + | MPV | 9.9 | 6.5 - 12.4 fL | [facility] | | | | | | [facility] | | | | | | [facility] | | | | | | [facility] - | | | | | | LABORATORY | | + + + + + + | % nRBC | 0 | 0 - 2 per 100 | [facility] | | | | | WBCs | [facility] | | | | | | [facility] | | | | | | [facility] - | | | | | | LABORATORY | | + + + + + + | Absolute | 0.00 | 0.00 - 0.01 | [facility] | | | [place] | | K/uL | [facility] | | | | | | [facility] | | | | | | CENTER - | | | | | | LABORATORY | | + + + + + + + + | Specimen | + + | Blood | + + + + + + + | Performing | Address | City/State/Zipcode | Phone Number | | Organization | | | | + + + + + | [facility] | [address] | [place] | [phone] | | [facility] | | [address] | | | - LABORATORY | | | | + + + + + Magnesium (07/29/2019 3:49 AM PST)Only the most recent of 3 results within the time period is included. + +-------+ + + + | Component | Value | Ref Range | Performed | Pathologist | | | | | At | Signature | + +-------+ + + + | Magnesium | 2.0 | 1.6 - 2.6 mg/dL | [facility] | | | | | | [facility] | | | | | | [facility] | | | | | | [facility] - | | | | | | LABORATORY | | + +-------+ + + + + + | Specimen | + + | Blood | + + + + + + + | Performing | Address | City/State/Zipcode | Phone Number | | Organization | | | | + + + + + | [facility] | [address] | [place] | [phone] | | [facility] | | [address] | | | - LABORATORY | | | | + + + + + Basic Metabolic Panel (07/29/2019 3:49 AM PST)Only the most recent of 2 results within the time period is included. + + + + + + | Component | Value | Ref Range | Performed | Pathologist | | | | | At | Signature | + + + + + + | Na | 139 | 136 - 145 | [facility] | | | | | mmol/L | [facility] | | | | | | MEDICAL | | | | | | CENTER - | | | | | | LABORATORY | | + + + + + + | K | 4.1 | 3.4 - 5.1 | [facility] | | | | | mmol/L | [facility] | | | | | | [facility] | | | | | | [facility] - | | | | | | LABORATORY | | + + + + + + | Cl | 106 | 98 - 107 mmol/L | [facility] | | | | | | [facility] | | | | | | [facility] | | | | | | CENTER - | | | | | | LABORATORY | | + + + + + + | CO2 | 26 | 20 - 31 mmol/L | [facility] | | | | | | [facility] | | | | | | [facility] | | | | | | CENTER - | | | | | | LABORATORY | | + + + + + + | Anion Gap | 7 | 3 - 16 mmol/L | [facility] | | | | | | [facility] | | | | | | [facility] | | | | | | C[facility] - | | | | | | LABORATORY | | + + + + + + | Glucose | 86 | 60 - 106 mg/dL | [facility] | | | | | | [facility] | | | | | | [facility] | | | | | | CENTER - | | | | | | LABORATORY | | + + + + + + | BUN | 20 | 9 - 23 mg/dL | [facility] | | | | | | [facility] | | | [facility] | | [facility] | | | | | | CENTER - | | | | | | LABORATORY | | + + + + + + | Creatinine | 1.10 (H) | 0.55 - 1.02 | [facility] | | | | | mg/dL | [facility] | | | | | | [facility] | | | | | | CENTER - | | | | | | LABORATORY | | + + + + + + | eGFR if not | 48 (L)Comment: | >=60 | [facility] | | | | GLOMERULAR FILTRATION | mL/min/1.73m2 | [facility] | | | BERMUDIAN | RATE,ESTIMATED | | MEDICAL | | | | mL/min/1.80e8Drwl than | | CENTER - | | | | 60 Chronic kidney | | LABORATORY | | | | disease,if found over a | | | | | | 3-month period.Less than | | | | | | 15 Kidney failureFor | | | | | | | | | | | | Americans,multiply the | | | | | | calculated GFR by 1.21. | | | | | | | | | | + + + + + + | Calcium | 9.0 | 8.7 - 10.4 | [facility] | | | | | mg/dL | [facility] | | | | | | MEDICAL | | | | | | CENTER - | | | | | | LABORATORY | | + + + + + + | BUN/Creatin | 18.2 | | [facility] | | | ine Ratio | | | [facility] | | | | | | MED[facility] | | | | | | CENTER - | | | | | | LABORATORY | | + + + + + + + + | Specimen | + + | Blood | + + + + + + + | Performing | Address | City/State/Zipcode | Phone Number | | Organization | | | | + + + + + | [facility] | [address] | [place] | [phone] | | [facility] | | [address] | | | - LABORATORY | | | | + + + + + Troponin I (07/29/2019 1:03 AM PST)Only the most recent of 7 results within the time mason gaytan is included. + + + + + + | Component | Value | Ref Range | Performed | Pathologist | | | | | At | Signature | + + + + + + | Troponin I | 2.30 ()Comment: | <0.06 ng/mL | [facility] | | | | Comment:Reference | | [facility] | | | | Ranges: 0.00-0.06 = | | MEDICAL | | | | NORMAL >0.06 = | | CENTER - | | | | SUSPICIOUS FOR | | LABORATORY | | | | MYOCARDIAL DAMAGE NOTE: | | | | | | Values greater than | | | | | | 0.78 ng/mL have been | | | | | | shown to be strongly | | | | | | associated with acute | | | | | | myocardial infarction. | | | | | | The [employer] | | | | | | Cardiology (ACC) | | | | | | recommends a decision | | | | | | limit of 0.06 ng/mL for | | | | | | this assay. Results | | | | | | greater than 0.06 can | | | | | | reflect a pre-infarct | | | | | | acute coronary syndrome, | | | | | | but can also reflect | | | | | | myocardial necrosis or | | | | | | injury that is not due | | | | | | to coronary artery | | | | | | disease. Some of these | | | | | | causes are sepsis, | | | | | | hypocolemia, atrial | | | | | | fibrillation, heart | | | | | | failure, pulmonary | | | | | | embolism, myocarditis, | | | | | | myocardial contusion, | | | | | | and renal failure. The | | | | | | diagnosis of myocardial | | | | | | infarction should be | | | | | | based on a combination | | | | | | of the patient's | | | | | | clinical presentation | | | | | | and the clinical | | | | | | laboratory test results | | | | | | (especially serial | | | | | | troponin levels). | | | | | | Critical Result called | | | | | | to and read back by | | | | | | Cat Harris on | | | | | | 07/29/2019 at 1:42 AM by | | | | | | Zay Daniel | | | | + + + + + + + + | Specimen | + + | Blood | + + + + + + + | Performing | Address | City/State/Zipcode | Phone Number | | Organization | | | | + + + + + | [facility] | [address] | [place] | [phone] | | [facility] | | [address] | | | - LABORATORY | | | | + + + + + ECHO Complete (07/28/2019 10:22 AM PST) + +---------+ + + + | Component | Value | Ref Range | Performed | Pathologist | | | | | At | Signature | + +---------+ + + + | Patient | 149 lbs | | [facility] | | | Weight | | | | | | (lbs) | | | | | + +---------+ + + + | Patient | 65 in | | [facility] | | | Height | | | | | + +---------+ + + + | LVIDd | 4.23 | cm | [facility] | | + +---------+ + + + | FS | 41 | % | [facility] | | + +---------+ + + + | LA volume | 71.06 | mL | [facility] | | + +---------+ + + + | Ascending | 3.56 | cm | [facility] | | | aorta | | | | | + +---------+ + + + | AV mean | 5.77 | mmHg | [facility] | | | gradient | | | | | + +---------+ + + + | Aortic | 0.99 | cm2 | [facility] | | | Valve Area | | | | | | by | | | | | | Continuity | | | | | | VTI | | | | | + +---------+ + + + | LVOT | 1.94 | cm | [facility] | | | diameter | | | | | + +---------+ + + + | LVOT peak | 48.89 | cm/s | [facility] | | | vane | | | | | + +---------+ + + + | LVOT peak | 8.97 | cm | [facility] | | | VTI | | | | | + +---------+ + + + | AV peak vane | 177 | cm/s | [facility] | | + +---------+ + + + | AV VTI | 26.84 | cm | [facility] | | + +---------+ + + + | AV peak | 12.53 | mmHg | [facility] | | | gradient | | | | | + +---------+ + + + | LA Volume | 41 | mL/m2 | [facility] | | | Index | | | | | + +---------+ + + + | AV LVOT | 0.96 | mmHg | [facility] | | | Peak | | | | | | Gradient | | | | | + +---------+ + + + | AV LVOT | 0.56 | mmHg | [facility] | | | Mean | | | | | | Gradient | | | | | + +---------+ + + + | TR Peak | 16 | mmHg | [facility] | | | Gradient | | | | | + +---------+ + + + | TR Velocity | 199.63 | cm | [facility] | | + +---------+ + + + | LV | 5.97 | cm | [facility] | | | Diastolic | | | | | | Length 4C | | | | | + +---------+ + + + | LV Systolic | 13.17 | cm2 | [facility] | | | Area PSAX | | | | | + +---------+ + + + | LV | 43 | % | [facility] | | | Tavera's | | | | | | Biplane EF | | | | | + +---------+ + + + | AV | 87.02 | msec | [facility] | | | Acceleratio | | | | | | n Time | | | | | + +---------+ + + + | LV ED | 54.14 | ml | [facility] | | | Volume | | | | | | (Tavera's) | | | | | + +---------+ + + + | LV ED | 31 | ml/m2 | [facility] | | | Volume | | | | | | Index | | | | | + +---------+ + + + | LV ES | 31.06 | ml | [facility] | | | Volume | | | | | + +---------+ + + + | LVOT Mean | 34.91 | cm/s | [facility] | | | Velocity | | | | | + +---------+ + + + | AV Mean | 113.62 | cm/s | [facility] | | | Velocity | | | | | + +---------+ + + + | LA/Aorta | 1.5 | | [facility] | | | Ratio | | | | | + +---------+ + + + | LA Area | 18.38 | cm2 | [facility] | | + +---------+ + + + | LA Major | 0.2684 | cm | [facility] | | + +---------+ + + + | LV ES | 18 | ml/m2 | [facility] | | | Volume | | | | | | Index | | | | | + +---------+ + + + | LV Area | 19.58 | cm2 | [facility] | | | Diastolic | | | | | + +---------+ + + + | Vitals | 108 | | [facility] | | | Heart Rate | | | | | | Rest | | | | | + +---------+ + + + | Vitals BP | 122 | | [facility] | | | Systolic | | | | | + +---------+ + + + | Vitals BP | 87 | | [facility] | | | Diastolic | | | | | + +---------+ + + + | Aortic Root | 3.24 | cm | [facility] | | | Diameter | | | | | + +---------+ + + + | IVS | 1.74 | cm | [facility] | | | Diastolic | | | | | | Thickness | | | | | | MM | | | | | + +---------+ + + + | LVPW | 1.4 | cm | [facility] | | | Diastolic | | | | | | Thickness | | | | | | MM | | | | | + +---------+ + + + | IVS | 2.13 | cm | [facility] | | | Systolic | | | | | | Thickness | | | | | | MM | | | | | + +---------+ + + + | LV Systolic | 2.49 | cm | [facility] | | | Diameter | | | | | | MM | | | | | + +---------+ + + + | LVPW | 1.49 | cm | [facility] | | | Systolic | | | | | | Thickness | | | | | | MM | | | | | + +---------+ + + + | AV Cusp | 0.78 | cm | [facility] | | | Seperation | | | | | | MM | | | | | + +---------+ + + + | LA Systolic | 4.87 | cm | [facility] | | | Diameter | | | | | | MM | | | | | + +---------+ + + + | TAPSE | 0.76 | cm | [facility] | | + +---------+ + + + | LVEF-TTE | 43 | | [facility] | | | TRANSTHORAC | | | | | | IC ECHO | | | | | + +---------+ + + + + + | Specimen | + + | | + + + + -+ | Narrative | Performed At | + + -+ | Transthoracic | [facility] | | Echocardiography Report (TTE) Demographics Patient Name MILLIE | | | MARKIE Room Number 451 | | | FLOYD Patient Number [id number] Date of Study | | | 07/28/2019 Visit Number [id number] Referring | | | Physician 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 | | | Procedure DateDate: 07/28/2019 Start: 09:37 AM Height: 65 inches | | | Weight: 149 pounds BSA: 1.75 m^2 BMI: 24.79 kg/m^2 Rhythm: Atrial | | | fibrillation HR: 95 bpm BP: 122/87 mmHg Conclusions Summary Left | | | ventricle is normal in size with mild to moderate concentric LVH and | | | overall mildly reduced systolic function in the context of underlying | | | irregular tachycardia and regional dyssynchrony. LVEF is estimated in | | | the range of 45%. Mitral valve is thickened with moderate annular | | | calcification, especially posteriorly, with mild MR without | | | significant stenosis. Aortic valve is a sclerotic valve that cannot be | | | defined as trileaflet. Visually, there is suggestion of mild stenosis | | | as well as mild insufficiency. Structurally normal tricuspid valve | | | with mild insufficiency and peak velocity consistent with normal | | | pulmonary pressures. Left atrium is moderately enlarged. Compared to | | | patient's prior study, systolic function appears slightly lower. | | | Estimated pulmonary pressures are lower. Signature | | | | | | Electronically signed by SJ PRUETT MD (Interpreting physician) on | | | 07/30/2019 at 09:10 AM | | | | | | Structures Left Atrium LA Dimension: 4.87 cm | | | LA Area: 18.38 cm^2 LA/Aorta: 1.5 LA Volume/Index: 71.06 ml | | | /41m^2 Left Atrium Findings Left atrium is moderately enlarged. Left | | | Ventricle Diastolic Dimension: 4.23 cm Systolic | | | Dimension: 2.49 cm Septum Diastolic: 1.74 cm Septum | | | Systolic: 2.13 cm PW Diastolic: 1.4 cm PW | | | Systolic: 1.49 cm Area Diastolic: 19.58 cm^2 Area | | | Systolic: 13.17 cm^2 EF Estimated: 43% | | | FS: 41.1 % LV EDV/LV EDV Index: 54.14 ml/31 m^2 LV ESV/LV ESV Index: | | | 31.06 ml/18 m^2 EF Calculated: 43% LV | | | Length: 5.97 cm | | | CI: 1.44 l/min*m^2 CO: 2.52 l/min LVOT Diameter: 1.94 cm Left | | | Ventricle Findings Left ventricle is normal in size with mild to | | | moderate concentric LVH and overall mildly reduced systolic function | | | in the context of underlying irregular tachycardia and regional | | | dyssynchrony. LVEF is estimated in the range of 45%. Right Atrium | | | Right Atrium Findings Right atrium is mildly enlarged. Right | | | Ventricle Right Ventricle Findings Right ventricle appears mildly | | | enlarged with mildly reduced systolic function. MiscellaneousAorta | | | Aortic Root: 3.24 cm Ascending Aorta: 3.56 cm LVOT Diameter: 1.94 cm | | | Miscellaneous FindingsMeasurements and calculations provided in the | | | report sections maybeincomplete. Additional m-mode, 2D, Doppler, | | | Doppler tissue, strain, andother hemodynamic assessments performed and | | | documented within the imageviewer. Pericardium Pericardial Effusion | | | Findings No evidence of pericardial effusion. Pleura Pleural | | | Effusion Findings No evidence of pleural effusion. Valves Mitral | | | Valve Mitral Valve Findings Mitral valve is thickened with moderate | | | annular calcification, especially posteriorly, with mild MR without | | | significant stenosis. Aortic Valve Peak Velocity: 177 cm/s | | | Mean Velocity: 113.62 cm/s Peak Gradient: 12.53 mmHg | | | Mean Gradient: 5.77 mmHg Area (continuity): 0.99 cm^2 | | | Acceleration Time: 87 msec AV VTI: 26.84 cm Cusp | | | Separation: 0.78 cm Aortic Valve Findings Aortic valve is a sclerotic | | | valve that cannot be defined as trileaflet. Visually, there is | | | suggestion of mild stenosis as well as mild insufficiency. Tricuspid | | | Valve TR Velocity: 199.63 cm/s TR Gradient: 15.94 | | | mmHg Tricuspid Valve Findings Structurally normal tricuspid valve | | | with mild insufficiency and peak velocity consistent with normal | | | pulmonary pressures. Pulmonic Valve Pulmonic Valve Findings Normal | | | pulmonic valve structure and function. Normal pulmonary valve and RVOT | | | flow by color and Doppler flow imaging. LVOT Peak Velocity: 48.89 | | | cm/s Mean Velocity: 34.91 cm/s Peak Gradient: 0.96 | | | mmHg Mean Gradient: 0.56 mmHg LVOT Diameter: 1.94 cm | | | LVOT VTI: 8.97 cm | | | PW Diastolic: 1.4 cm PW Systolic: 1.49 cm | | | Area Diastolic: 19.58 cm^2 Area Systolic: 13.17 cm^2 | | | EF Estimated: 43% FS: 41.1 % | | | LV EDV/LV EDV Index: 54.14 ml/31 m^2 LV ESV/LV ESV Index: 31.06 ml/18 m^2 | | | EF Calculated: 43% LV Length: 5.97 cm | | | CI: 1.44 l/min*m^2 | | | CO: 2.52 l/min | | | LVOT Diameter: 1.94 cm | | | | | | Left Ventricle Findings | | | Left ventricle is normal in size with mild to moderate concentric LVH and | | | overall mildly reduced systolic function in the context of underlying | | | irregular tachycardia and regional dyssynchrony. LVEF is estimated in the | | | range of 45%. | | | | | | Right Atrium | | | | | | Right Atrium Findings | | | Right atrium is mildly enlarged. | | | | | | Right Ventricle | | | | | | Right Ventricle Findings | | | Right ventricle appears mildly enlarged with mildly reduced systolic | | | function. | | | | | |Miscellaneous | | |Aorta | | | | | | Aortic Root: 3.24 cm | | | Ascending Aorta: 3.56 cm | | | LVOT Diameter: 1.94 cm | | | | | |Miscellaneous Findings | | |Measurements and calculations provided in the report sections maybe | | |incomplete. Additional m-mode, 2D, Doppler, Doppler tissue, strain, and | | |other hemodynamic assessments performed and documented within the image | | |viewer. | | | | | | Pericardium | | | | | | Pericardial Effusion Findings | | | No evidence of pericardial effusion. | | | | | | Pleura | | | | | | Pleural Effusion Findings | | | No evidence of pleural effusion. | | | | | |Valves | | | | | | Mitral Valve | | | | | | Mitral Valve Findings | | | Mitral valve is thickened with moderate annular calcification, especially | | | posteriorly, with mild MR without significant stenosis. | | | | | | Aortic Valve | | | | | | Peak Velocity: 177 cm/s Mean Velocity: 113.62 cm/s | | | Peak Gradient: 12.53 mmHg Mean Gradient: 5.77 mmHg | | | Area (continuity): 0.99 cm^2 Acceleration Time: 87 msec | | | AV VTI: 26.84 cm | | | | | | Cusp Separation: 0.78 cm | | | | | | Aortic Valve Findings | | | Aortic valve is a sclerotic valve that cannot be defined as trileaflet. | | | Visually, there is suggestion of mild stenosis as well as mild | | | insufficiency. | | | | | | Tricuspid Valve | | | | | | TR Velocity: 199.63 cm/s TR Gradient: 15.94 mmHg | | | | | | Tricuspid Valve Findings | | | Structurally normal tricuspid valve with mild insufficiency and peak | | | velocity consistent with normal pulmonary pressures. | | | | | | Pulmonic Valve | | | | | | Pulmonic Valve Findings | | | Normal pulmonic valve structure and function. Normal pulmonary valve and | | | RVOT flow by color and Doppler flow imaging. | | | | | | LVOT | | | | | | Peak Velocity: 48.89 cm/s Mean Velocity: 34.91 cm/s | | | Peak Gradient: 0.96 mmHg Mean Gradient: 0.56 mmHg | | | LVOT Diameter: 1.94 cm LVOT VTI: 8.97 cm | | | | | + + -+ + + | Procedure Note | + + | Mauricio, Rad Results In - 07/30/2019 9:10 AM PST Transthoracic Echocardiography Report | | (TTE) Demographics Patient Name MILLIE ADEN Room Number 451 | | [place] Patient Number [id number] Date of Study 07/28/2019 Visit Number | | [id number] Referring Physician SURAJ CHILDERS | | [employer] Number Date of 1940 Interpreting [employer] | | MD [facility] Physician Age 78 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 LVEF is estimated in the | | range of 45%. Mitral valve is thickened with moderate annular calcification, especially | | posteriorly, with mild MR without significant stenosis. Aortic valve is a sclerotic | | valve that cannot be defined as trileaflet. Visually, there is suggestion of mild | | stenosis as well as mild insufficiency. Structurally normal tricuspid valve with mild | | insufficiency and peak velocity consistent with normal pulmonary pressures. Left atrium | | is moderately enlarged. Compared to patient's prior study, systolic function appears | | slightly lower. Estimated pulmonary pressures are lower. Signature | | | | Structures Left Atrium | | LA Dimension: 4.87 cm LA Area: 18.38 cm^2 LA/Aorta: 1.5 LA | | Volume/Index: 71.06 ml /41m^2 Left Atrium Findings Left atrium is moderately enlarged. | | Left Ventricle Diastolic Dimension: 4.23 cm Systolic Dimension: 2.49 cm Septum | | Diastolic: 1.74 cm Septum Systolic: 2.13 cm PW Diastolic: 1.4 cm | | PW Systolic: 1.49 cm Area Diastolic: 19.58 cm^2 Area Systolic: 13.17 cm^2 | | EF Estimated: 43% FS: 41.1 % LV EDV/LV EDV Index: 54.14 ml/31 m^2 LV | | ESV/LV ESV Index: 31.06 ml/18 m^2 EF Calculated: 43% LV Length: 5.97 | | cm CI: 1.44 l/min*m^2 CO: 2.52 l/min LVOT Diameter: | | 1.94 cm Left Ventricle Findings Left ventricle is normal in size with mild to moderate | | concentric LVH and overall mildly reduced systolic function in the context of underlying | | irregular tachycardia and regional dyssynchrony. LVEF is estimated in the range of 45%. | | Right Atrium Right Atrium Findings Right atrium is mildly enlarged. Right Ventricle | | Right Ventricle Findings Right ventricle appears mildly enlarged with mildly reduced | | systolic function.MiscellaneousAorta Aortic Root: 3.24 cm Ascending Aorta: 3.56 cm LVOT | | Diameter: 1.94 cmMiscellaneous FindingsMeasurements and calculations provided in the | | report sections maybeincomplete. Additional m-mode, 2D, Doppler, Doppler tissue, strain, | | andother hemodynamic assessments performed and documented within the imageviewer. | | Pericardium Pericardial Effusion Findings No evidence of pericardial effusion. Pleura | | Pleural Effusion Findings No evidence of pleural effusion.Valves Mitral Valve Mitral | | Valve Findings Mitral valve is thickened with moderate annular calcification, especially | | posteriorly, with mild MR without significant stenosis. Aortic Valve Peak Velocity: 177 | | cm/s Mean Velocity: 113.62 cm/s Peak Gradient: 12.53 mmHg | | Mean Gradient: 5.77 mmHg Area (continuity): 0.99 cm^2 Acceleration Time: 87 | | msec AV VTI: 26.84 cm Cusp Separation: 0.78 cm Aortic Valve Findings Aortic valve is a | | sclerotic valve that cannot be defined as trileaflet. Visually, there is suggestion of | | mild stenosis as well as mild insufficiency. Tricuspid Valve TR Velocity: 199.63 cm/s | | TR Gradient: 15.94 mmHg Tricuspid Valve Findings Structurally normal | | tricuspid valve with mild insufficiency and peak velocity consistent with normal | | pulmonary pressures. Pulmonic Valve Pulmonic Valve Findings Normal pulmonic valve | | structure and function. Normal pulmonary valve and RVOT flow by color and Doppler flow | | imaging. LVOT Peak Velocity: 48.89 cm/s Mean Velocity: 34.91 cm/s Peak | | Gradient: 0.96 mmHg Mean Gradient: 0.56 mmHg LVOT Diameter: 1.94 cm | | LVOT VTI: 8.97 cm | | | | | | | |Structures | | | | Left Atrium | | | | LA Dimension: 4.87 cm LA Area: 18.38 cm^2 | | LA/Aorta: 1.5 | | LA Volume/Index: 71.06 ml /41m^2 | | | | Left Atrium Findings | | Left atrium is moderately enlarged. | | | | Left Ventricle | | | | Diastolic Dimension: 4.23 cm Systolic Dimension: 2.49 cm | | Septum Diastolic: 1.74 cm Septum Systolic: 2.13 cm | | PW Diastolic: 1.4 cm PW Systolic: 1.49 cm | | Area Diastolic: 19.58 cm^2 Area Systolic: 13.17 cm^2 | | EF Estimated: 43% FS: 41.1 % | | LV EDV/LV EDV Index: 54.14 ml/31 m^2 LV ESV/LV ESV Index: 31.06 ml/18 m^2 | | EF Calculated: 43% LV Length: 5.97 cm | | CI: 1.44 l/min*m^2 | | CO: 2.52 l/min | | LVOT Diameter: 1.94 cm | | | | Left Ventricle Findings | | Left ventricle is normal in size with mild to moderate concentric LVH and | | overall mildly reduced systolic function in the context of underlying | | irregular tachycardia and regional dyssynchrony. LVEF is estimated in the | | range of 45%. | | | | Right Atrium | | | | Right Atrium Findings | | Right atrium is mildly enlarged. | | | | Right Ventricle | | | | Right Ventricle Findings | | Right ventricle appears mildly enlarged with mildly reduced systolic | | function. | | | |Miscellaneous | |Aorta | | | | Aortic Root: 3.24 cm | | Ascending Aorta: 3.56 cm | | LVOT Diameter: 1.94 cm | | | |Miscellaneous Findings | |Measurements and calculations provided in the report sections maybe | |incomplete. Additional m-mode, 2D, Doppler, Doppler tissue, strain, and | |other hemodynamic assessments performed and documented within the image | |viewer. | | | | Pericardium | | | | Pericardial Effusion Findings | | No evidence of pericardial effusion. | | | | Pleura | | | | Pleural Effusion Findings | | No evidence of pleural effusion. | | | |Valves | | | | Mitral Valve | | | | Mitral Valve Findings | | Mitral valve is thickened with moderate annular calcification, especially | | posteriorly, with mild MR without significant stenosis. | | | | Aortic Valve | | | | Peak Velocity: 177 cm/s Mean Velocity: 113.62 cm/s | | Peak Gradient: 12.53 mmHg Mean Gradient: 5.77 mmHg | | Area (continuity): 0.99 cm^2 Acceleration Time: 87 msec | | AV VTI: 26.84 cm | | | | Cusp Separation: 0.78 cm | | | | Aortic Valve Findings | | Aortic valve is a sclerotic valve that cannot be defined as trileaflet. | | Visually, there is suggestion of mild stenosis as well as mild | | insufficiency. | | | | Tricuspid Valve | | | | TR Velocity: 199.63 cm/s TR Gradient: 15.94 mmHg | | | | Tricuspid Valve Findings | | Structurally normal tricuspid valve with mild insufficiency and peak | | velocity consistent with normal pulmonary pressures. | | | | Pulmonic Valve | | | | Pulmonic Valve Findings | | Normal pulmonic valve structure and function. Normal pulmonary valve and | | RVOT flow by color and Doppler flow imaging. | | | | LVOT | | | | Peak Velocity: 48.89 cm/s Mean Velocity: 34.91 cm/s | | Peak Gradient: 0.96 mmHg Mean Gradient: 0.56 mmHg | | LVOT Diameter: 1.94 cm LVOT VTI: 8.97 cm | + + + +---------+ + + | Performing | Address | City/State/Zipcode | Phone Number | | Organization | | | | + +---------+ + + | [facility] | | | | + +---------+ + + ECG 12 lead (07/28/2019 7:48 AM PST)Only the most recent of 4 results within the time caity od is included. + + + + + + | Component | Value | Ref Range | Performed | Pathologist | | | | | At | Signature | + + + + + + | VENTRICULAR | 116 | BPM | [facility] | | | RATE EKG | | | | | + + + + + + | QRS | 102 | ms | [facility] | | | DURATION | | | | | + + + + + + | Q-T | 298 | ms | [facility] | | | INTERVAL | | | | | + + + + + + | Q-T | 414 | ms | [facility] | | | INTERVAL | | | | | | (CORRECTED) | | | | | + + + + + + | QRS AXIS | -44 | degrees | [facility] | | + + + + + + | T AXIS | 137 | degrees | [facility] | | + + + + + + | INTERPRETAT | Atrial fibrillation with | | [facility] | | | ION TEXT | rapid ventricular | | | | | | responseLeft axis | | | | | | deviationMinimal voltage | | | | | | criteria for LVH, may | | | | | | be normal | | | | | | variantNonspecific ST | | | | | | and T wave | | | | | | abnormalityAbnormal | | | | | | ECGWhen compared with | | | | | | ECG of 28-JUL-2019 | | | | | | 04:44,No significant | | | | | | change was | | | | | | foundConfirmed by | | | | | | MARIELENA MCKOY MD ([id number]) | | | | | | on 07/29/2019 6:00:25 AM | | | | + + + + + + + + | Specimen | + + | | + + + + + | Narrative | Performed At | + + + | | | + + + + +---------+ + + | Performing | Address | City/State/Zipcode | Phone Number | | Organization | | | | + +---------+ + + | [facility] | | | | + +---------+ + + Protime INR (07/28/2019 3:39 AM PST)Only the most recent of 2 results within the time caity od is included. + + + + + + | Component | Value | Ref Range | Performed | Pathologist | | | | | At | Signature | + + + + + + | Prothrombin | 15.7 (H) | 11.3 - 13.9 | [facility] | | | Time | | seconds | [facility] | | | | | | [facility] | | | | | | C[facility] - | | | | | | LABORATORY | | + + + + + + | INR | 1.3 (H)Comment: Usual | 0.9 - 1.1 | [facility] | | | | Oral Anticoagulation | | [facility] | | | | Range: 2.0 - | | MEDICAL | | | | 3.0High Level Oral | | CENTER - | | | | Anticoagulation Range: | | LABORATORY | | | | 2.5 - 3.5 | | | | + + + + + + + + | Specimen | + + | Blood | + + + + + + + | Performing | Address | City/State/Zipcode | Phone Number | | Organization | | | | + + + + + | [facility] | [address] | [place] | [phone] | | [facility] | | [id number] | | | - LABORATORY | | | | + + + + + CBC with Differential (07/28/2019 3:39 AM PST)Only the most recent of 2 results within the time period is included. + + + + + + | Component | Value | Ref Range | Performed | Pathologist | | | | | At | Signature | + + + + + + | WBC | 5.6 | 4.0 - 11.0 K/uL | [facility] | | | | | | [facility] | | | | | | [facility] | | | | | | [facility] - | | | | | | LABORATORY | | + + + + + + | RBC | 3.56 (L) | 3.70 - 5.20 | [facility] | | | | | M/uL | [facility] | | | | | | [facility] | | | | | | CENTER - | | | | | | LABORATORY | | + + + + + + | Hemoglobin | 10.9 (L) | 11.5 - 16.0 | [facility] | | | | | g/dL | [facility] | | | | | | [facility]ICAL | | | | | | CENTER - | | | | | | LABORATORY | | + + + + + + | Hematocrit | 33.0 (L) | 34.0 - 47.0 % | [facility] | | | | | | [facility] | | | | | | [facility] | | | | | | C[facility] - | | | | | | LABORATORY | | + + + + + + | MCV | 92.7 | 83.0 - 101.0 fL | [facility] | | | | | | [facility] | | | | | | [facility] | | | | | | C[facility] - | | | | | | LABORATORY | | + + + + + + | MCH | 30.6 | 28.0 - 35.0 pg | [facility] | | | | | | [facility] | | | | | | [facility] | | | | | | C[facility] - | | | | | | LABORATORY | | + + + + + + | MCHC | 33.0 | 32.0 - 36.0 | [facility] | | | | | g/dL | [facility] | | | | | | [facility] | | | | | | CENTER - | | | | | | LABORATORY | | + + + + + + | RDW-CV | 13.5 | <15.0 % | [facility] | | | | | | [facility] | | | | | | [facility] | | | | | | CENTER - | | | | | | LABORATORY | | + + + + + + | RDW-SD | 45.7 | 35.1 - 46.3 fL | [facility] | | | | | | [facility] | | | | | | [facility] | | | | | | C[facility] - | | | | | | LABORATORY | | + + + + + + | Platelet | 281 | 140 - 440 K/uL | [facility] | | | Count | | | [facility] | | | | | | [facility] | | | | | | CENTER - | | | | | | LABORATORY | | + + + + + + | MPV | 10.1 | 6.5 - 12.4 fL | [facility] | | | | | | [facility] | | | | | | [facility] | | | | | | CENTER - | | | | | | LABORATORY | | + + + + + + | % | 70.5 | 45.0 - 82.0 % | [facility] | | | Neutrophils | | | [facility] | | | | | | [facility]ICAL | | | | | | CENTER - | | | | | | LABORATORY | | + + + + + + | % | 18.4 (L) | 20.0 - 45.0 % | [facility] | | | Lymphocytes | | | [facility] | | | | | | [facility] | | | | | | CENTER - | | | | | | LABORATORY | | + + + + + + | % Monocytes | 7.8 | 4.0 - 12.0 % | [facility] | | | | | | [facility] | | | | | | [facility] | | | | | | CENTER - | | | | | | LABORATORY | | + + + + + + | % | 2.3 | 0.0 - 5.0 % | [facility] | | | Eosinophils | | | [facility] | | | | | | MEDICAL | | | | | | CENTER - | | | | | | LABORATORY | | + + + + + + | % Basophils | 0.5 | 0.0 - 1.0 % | [facility] | | | | | | [facility] | | | | | | [facility] | | | | | | CENTER - | | | | | | LABORATORY | | + + + + + + | % Immature | 0.5 (H)Comment: | 0.0 - 0.4 % | [facility] | | | Granulocyte | Preliminary studies have | | [facility] | | | s | indicated the IG% | | MEDICAL | | | | and/or IG# show promise | | CENTER - | | | | as an early indicator | | LABORATORY | | | | for infection. | | | | + + + + + + | Absolute | 3.97 | 1.80 - 8.50 | [facility] | | | Neutrophils | | K/uL | [facility] | | | | | | [facility]ICAL | | | | | | CENTER - | | | | | | LABORATORY | | + + + + + + | Absolute | 1.04 | 0.60 - 3.20 | [facility] | | | Lymphocytes | | K/uL | [facility] | | | | | | [facility] | | | | | | CENTER - | | | | | | LABORATORY | | + + + + + + | Absolute | 0.44 | 0.00 - 1.00 | [facility] | | | Monocytes | | K/uL | [facility] | | | | | | [facility] | | | | | | CENTER - | | | | | | LABORATORY | | + + + + + + | Absolute | 0.13 | 0.00 - 0.40 | [facility] | | | Eosinophils | | K/uL | [facility] | | | | | | MEDICAL | | | | | | CENTER - | | | | | | LABORATORY | | + + + + + + | Absolute | 0.03 | 0.00 - 0.10 | [facility] | | | Basophils | | K/uL | [facility] | | | | | | MEDICAL | | | | | | CENTER - | | | | | | LABORATORY | | + + + + + + | Absolute | 0.03 | 0.00 - 0.03 | [facility] | | | Immature | | K/uL | [facility] | | | Granulocyte | | | MEDICAL | | | s | | | CENTER - | | | | | | LABORATORY | | + + + + + + | % nRBC | 0 | 0 - 2 per 100 | [facility] | | | | | WBCs | [facility] | | | | | | [facility]ICAL | | | | | | CENTER - | | | | | | LABORATORY | | + + + + + + | Absolute | 0.00 | 0.00 - 0.01 | [facility] | | | nRBC | | K/uL | [facility] | | | | | | MEDICAL | | | | | | CENTER - | | | | | | LABORATORY | | + + + + + + + + | Specimen | + + | Blood | + + + + + + + | Performing | Address | City/State/Zipcode | Phone Number | | Organization | | | | + + + + + | [facility] | [address] | [place] | [phone] | | [facility] | | [address] | | | - LABORATORY | | | | + + + + + Lipid Panel (07/27/2019 1:08 PM PST) + +-------+ + + + | Component | Value | Ref Range | Performed | Pathologist | | | | | At | Signature | + +-------+ + + + | Triglycerid | 76 | <=150 mg/dL | [facility] | | | es | | | [facility] | | | | | | [facility]ICAL | | | | | | CENTER - | | | | | | LABORATORY | | + +-------+ + + + | Cholesterol | 137 | <=200 mg/dL | [facility] | | | | | | [facility] | | | | | | MEDICAL | | | | | | CENTER - | | | | | | LABORATORY | | + +-------+ + + + | HDL | 45 | 40 - 60 mg/dL | [facility] | | | | | | [facility] | | | | | | [facility] | | | | | | CENTER - | | | | | | LABORATORY | | + +-------+ + + + | Chol/HDL | 3.0 | | [facility] | | | Ratio | | | [facility] | | | | | | MEDICAL | | | | | | CENTER - | | | | | | LABORATORY | | + +-------+ + + + | LDL, | 77 | <=130 mg/dL | [facility] | | | Calculated | | | [facility] | | | | | | MEDICAL | | | | | | CENTER - | | | | | | LABORATORY | | + +-------+ + + + + + | Specimen | + + | Blood | + + + + + + + | Performing | Address | City/State/Zipcode | Phone Number | | Organization | | | | + + + + + | [facility] | [address] | [place] | [phone] | | [facility] | | [address] | | | - LABORATORY | | | | + + + + + TSH (07/27/2019 1:08 PM PST) + + + + + + | Component | Value | Ref Range | Performed | Pathologist | | | | | At | Signature | + + + + + + | TSH | 4.83 (H) | 0.55 - 4.78 | [facility] | | | | | uIU/mL | [facility] | | | | | | [facility] | | | | | | CENTER - | | | | | | LABORATORY | | + + + + + + + + | Specimen | + + | Blood | + + + + + + + | Performing | Address | City/State/Zipcode | Phone Number | | Organization | | | | + + + + + | [facility] | [address] | [place], [place] | [phone] | | [facility] | | [address] | | | - LABORATORY | | | | + + + + + Lactic Acid (07/27/2019 1:08 PM PST) + +-------+ + + + | Component | Value | Ref Range | Performed | Pathologist | | | | | At | Signature | + +-------+ + + + | Lactate | 0.6 | 0.5 - 2.2 | [facility] | | | | | mmol/L | [facility] | | | | | | MEDICAL | | | | | | CENTER - | | | | | | LABORATORY | | + +-------+ + + + + + | Specimen | + + | Blood | + + + + + + + | Performing | Address | City/State/Zipcode | Phone Number | | Organization | | | | + + + + + | [facility] | [address] | [place] | [phone] | | [facility] | | [address] | | | - LABORATORY | | | | + + + + + Hemoglobin A1C (07/27/2019 1:08 PM PST) + +-------+ + + + | Component | Value | Ref Range | Performed | Pathologist | | | | | At | Signature | + +-------+ + + + | Hemoglobin | 5.6 | 4.3 - 6.0 % | [facility] | | | A1c | | | [facility] | | | | | | MEDICAL | | | | | | CENTER - | | | | | | LABORATORY | | + +-------+ + + + | Estimated | 114 | mg/dL | [facility] | | | Average | | | [facility] | | | Glucose | | | MEDICAL | | | | | | CENTER - | | | | | | LABORATORY | | + +-------+ + + + + + | Specimen | + + | Blood | + + + + + + + | Performing | Address | City/State/Zipcode | Phone Number | | Organization | | | | + + + + + | [facility] | [address] | [place] | [phone] | | [facility] | | [address] | | | - LABORATORY | | | | + + + + + Comprehensive Metabolic Panel (07/27/2019 1:08 PM PST) + + + + + + | Component | Value | Ref Range | Performed | Pathologist | | | | | At | Signature | + + + + + + | Na | 135 (L) | 136 - 145 | [facility] | | | | | mmol/L | [facility] | | | | | | MEDICAL | | | | | | CENTER - | | | | | | LABORATORY | | + + + + + + | K | 4.0 | 3.4 - 5.1 | [facility] | | | | | mmol/L | [facility] | | | | | | MED[facility] | | | | | | CENTER - | | | | | | LABORATORY | | + + + + + + | Cl | 102 | 98 - 107 mmol/L | [facility] | | | | | | [facility] | | | | | | [facility] | | | | | | CENTER - | | | | | | LABORATORY | | + + + + + + | CO2 | 26 | 20 - 31 mmol/L | [facility] | | | | | | [facility] | | | | | | MEDICAL | | | | | | CENTER - | | | | | | LABORATORY | | + + + + + + | Anion Gap | 7 | 3 - 16 mmol/L | [facility] | | | | | | [facility] | | | | | | MEDICAL | | | | | | CENTER - | | | | | | LABORATORY | | + + + + + + | Glucose | 111 (H) | 60 - 106 mg/dL | [facility] | | | | | | [facility] | | | | | | MEDICAL | | | | | | CENTER - | | | | | | LABORATORY | | + + + + + + | BUN | 15 | 9 - 23 mg/dL | [facility] | | | | | | [facility] | | | | | | [facility] | | | | | | CENTER - | | | | | | LABORATORY | | + + + + + + | Creatinine | 0.96 | 0.55 - 1.02 | [facility] | | | | | mg/dL | [facility] | | | | | | MEDICAL | | | | | | CENTER - | | | | | | LABORATORY | | + + + + + + | eGFR if not | 56 (L)Comment: | >=60 | [facility] | | | | GLOMERULAR FILTRATION | mL/min/1.73m2 | [facility] | | | BERMUDIAN | RATE,ESTIMATED | | MEDICAL | | | | mL/min/1.25o7Nssx than | | CENTER - | | | | 60 Chronic kidney | | LABORATORY | | | | disease,if found over a | | | | | | 3-month period.Less than | | | | | | 15 Kidney failureFor | | | | | | | | | | | | Americans,multiply the | | | | | | calculated GFR by 1.21. | | | | | | | | | | + + + + + + | Calcium | 8.9 | 8.7 - 10.4 | [facility] | | | | | mg/dL | [facility] | | | | | | MEDICAL | | | | | | CENTER - | | | | | | LABORATORY | | + + + + + + | Albumin | 4.0 | 3.2 - 4.8 g/dL | [facility] | | | | | | [facility] | | | | | | [facility] | | | | | | [facility] - | | | | | | LABORATORY | | + + + + + + | Bilirubin | 0.8 | 0.3 - 1.2 mg/dL | [facility] | | | Total | | | [facility] | | | | | | [facility] | | | | | | [facility] - | | | | | | LABORATORY | | + + + + + + | Total | 6.7 | 5.7 - 8.2 g/dL | [facility] | | | Protein | | | [facility] | | | | | | [facility] | | | | | | [facility] - | | | | | | LABORATORY | | + + + + + + | AST | 17 | 0 - 34 U/L | [facility] | | | | | | [facility] | | | | | | [facility] | | | | | | [facility] - | | | | | | LABORATORY | | + + + + + + | ALT | 23 | 10 - 49 U/L | [facility] | | | | | | [facility] | | | | | | [facility] | | | | | | [facility] - | | | | | | LABORATORY | | + + + + + + | Alkaline | 75 | 46 - 116 U/L | [facility] | | | Phosphatase | | | [facility] | | | | | | [facility] | | | | | | [facility] - | | | | | | LABORATORY | | + + + + + + | Globulin | 2.7 | 2.1 - 3.8 g/dL | [facility] | | | [facility] | [facility] - | | | | | | LABORATORY | | + + + + + + | Albumin/Viviane | 1.5 | 0.8 - 1.9 | [facility] | | | bulin Ratio | | | [facility] | | | | | | [facility] | | | | | | [facility] - | | | | | | LABORATORY | | + + + + + + | BUN/Creatin | 15.6 | | [facility] | | | ine Ratio | | | [facility] | | | | | | [facility] | | | | | | [facility]ENTER - | | | | | | LABORATORY | | + + + + + + + + | Specimen | + + | Blood | + + + + + + + | Performing | Address | City/State/Zipcode | Phone Number | | Organization | | | | + + + + + | [facility] | [address] | [place] | [phone] | | [facility] | | [address] | | | - LABORATORY | | | | + + + + + Culture, MRSA (07/27/2019 12:50 PM PST) + + + + + + | Component | Value | Ref Range | Performed | Pathologist | | | | | At | Signature | + + + + + + | Culture | Negative for MRSA by | | [facility] | | | | chromogenic agar method. | | [facility] | | | | | | MEDICAL | | | | | | CENTER - | | | | | | LABORATORY | | + + + + + + + + | Specimen | + + | Tissue - Both | | anterior nares (body | | structure) | + + + + + + + | Performing | Address | City/State/Zipcode | Phone Number | | Organization | | | | + + + + + | [facility] | [address] | [place] | [phone] | | [facility] | | [address] | | | - LABORATORY | | | | + + + + + from Last 3 Months Insurance + +--------+ +--------+ +---------+--------+ | Payer | Benefi | Subscriber | Effect | Phone | Address | Type | | | t Plan | ID | [place] | | | | | | / | | Dates | | | | | | Group | | | | | | + +--------+ +--------+ +---------+--------+ | MEDICARE | MEDICA | [id number] | 08/17/19 | [phone] | | Medica | | | RE | | 16-Pre | 5 | | re | | | PART A | | sent | | | | | | AND B | | | | | | + +--------+ +--------+ +---------+--------+ | AARP | AARP | [id number] | 07/17/19 | [phone] | | Indemn | | | MDCR | | 16-Pre | 0 | | ity | | | SUPPL | | sent | | | | + +--------+ +--------+ +---------+--------+ + +--------+ +--------+ + + | Guarantor Name | Accoun | Relation to | Date | Phone | Billing Address | | | t Type | Patient | of | | | | | | | | | | + +--------+ +--------+ + + | Markie Pinto | Person | Self | [birth year] | [address] | | | al/Fam | | 1941 | [phone] | [place], | | | [place] | | | [address] (Home) | [place] [address] | | | | | | [phone] | | | | | | | 5 (Work) | | + +--------+ +--------+ + + Advance Directives + + + + + | Type | Date Recorded | Patient | Explanation | | | | Zipper Setter | | + + + + + | Power of | | | | | Cotton Inspector | | | | + + + + + | Advance | 08/24/2017 1:22 | | | | Directive | PM | | | + + + + + + + + + + | Code Status | Date | Date | Comments | | | Activated | Inactivated | | + + + + + | DNR (No | 07/27/2019 | 07/29/2019 | | | Code) | 8:10 PM | 7:33 PM | | + + + + + + + +---+ | RN or MD to pronounce: | RN may | | | | pronounce | | + + +---+ + + + +---+ | | | | | + + + +---+ | Full Code | 07/27/2019 | 07/27/2019 | | | | 12:57 PM | 8:10 PM | | + + + +---+ + + + +---+ | | | | | + + + +---+ | DNR (No | 03/29/2018 | 03/30/2018 | | | Code) | 4:40 PM | 2:17 PM | | + + + +---+ + + +---+ | RN or to pronounce: | RN may | | | | pronounce | | + + +---+ + + + +---+ | | | | | + + + +---+ | Full Code | 03/28/2018 | 03/29/2018 | | | | 6:43 PM | 4:39 PM | | + + + +---+ + + + +---+ | | | | | + + + +---+ | Full Code | 08/24/2017 | 08/26/2017 | | | | 6:23 PM | 2:45 PM | | + + + +---+
--- OUTSIDE RECORDS SUMMARY | ~2019-07-30 | XMS | Encounter Summary ---
Demographics + + + | Address | [address] | | | [place] [address] | + + + | Home Phone | | + + + | Preferred Language | Unknown | + + + | Marital Status | | + + + | Buddhist Affiliation | 1001 | + + + | Race | Unknown | + + + | Ethnic Group | Unknown | + + + Author + + + | Author | [facility] | | | and [place] | + + + | Organization | [facility] | | | and [place] | + + + | Address | Unknown | + + + | Phone | Unavailable | + + + Support + + +---------+ + | Name | Relationship | Address | Phone | + + +---------+ + | Kimbrely Lyon | ECON | Unknown | | + + +---------+ + | Francesmami Chan | ECON | Unknown | | + + +---------+ + Care Team Providers + +------+ + | Care Saturator Operator Name | Role | Phone | + +------+ + | Doug García MD | PCP | | + +------+ + Encounter Details +--------+ + + + + | Date | Type | Department | Care Team | Description | +--------+ + + + + | 10/01/ | Hospital | [facility] | Conversion | | | 2019 | Encounter | [facility] | Transaction, | | | | | [address] | Provider Unknown | | | | | [place], [place] | | | | | | [address] | (Fax) | | | | | [phone] | | | +--------+ + + + [...] + + +---------+ + + | Capsicum, Linda, | Take by mouth | | [...]
--- OUTSIDE RECORDS SUMMARY | ~2019-07-30 | XMS | Encounter Summary ---
Demographics + + + | Address | [address] | | | [place] [address] | + + + | Home Phone | | + + + | Preferred Language | Unknown | + + + | Marital Status | | + + + | Congregational Affiliation | 1001 | + + + | Race | Unknown | + + + | Ethnic Group | Unknown | + + + Author + + + | Author | [facility] | | | and [place] | + + + | Organization | [facility] | | | and [place] | + + + | Address | Unknown | + + + | Phone | Unavailable | + + + Support + + +---------+ + | Name | Relationship | Address | Phone | + + +---------+ + | Kimberly Lyon | ECON | Unknown | | + + +---------+ + | Frances Cahn | ECON | Unknown | | + + +---------+ + Care Team Providers + +------+ + | Care News Analyst Name | Role | Phone | + +------+ + | Doug García MD | PCP | | + +------+ + Reason for Referral Diagnostic/Screening (Routine) +--------+--------+ + + + + | Status | Reason | Specialty | Diagnoses / | Referred By | Referred To | | | | | Procedures | Contact | Contact | +--------+--------+ + + + + | Closed | | Radiology | Diagnoses | Fly Christianson | | | | | | Coronary | MD Tao | | | | | | atherosclero | [address] | | | | | sis of | [address] | | | | | | unspecified | [address] | | | | | | type of | [place] | | | | | | vessel, | [id number] | | | | | | pic[place]une or | Phone: | | | | | | graft | [phone] | | | | | | Procedures | Fax: | | | | | | NM Nuclear | [phone] | | | | | | Stress Test | | | | | | | (Exercise) | | | +--------+--------+ + + + + Reason for Visit + + + | Reason | Comments | + + + | Follow-up | post IL | + + + Encounter Details +--------+---------+ + + + | Date | Type | Department | Care Team | Description | +--------+---------+ + + + | 11/19/ | Office | [facility] [place] | Fly Christianson, | CORONARY ARTERY | | 2013 | Visit | Card[facility] | MD [address] | DISEASE (Primary | | | | [address] | [address] [place], | Dx); Hypertension | | | | [address] [place], [place] | [place] [address] | | | | | [address] | [phone] | | | | | [phone] | | | +--------+---------+ + + + [...] + + + | Blood Pressure | 210/110 | 11/19/2013 8:11 AM | L arm | | | | PDT | | + + + + + | Pulse | 84 | 11/19/2013 8:08 AM | | | | | PDT [...] + + + + | Weight | 76.7 kg (169 lb) | 11/19/2013 8:08 AM | | | | | PDT | | + + + + + | Height | 165.1 cm (5' 5") | 11/19/2013 8:08 AM | | | | | PDT | | + + + + + | Body Mass Index | 28.12 | 11/19/2013 8:08 AM | | | | | PDT | | + + + + + documented in this encounter Patient Instructions Patient Instructions Fly Christianson MD - 11/19/2013 8:39 AM PDTIncrease Lisinopril to 5 mg daily Monitor BP at home in am and late afternoon 2-3 X/week documented in this encounter Progress Notes Fly Christianson MD - 11/19/2013 8:44 AM PDTFormatting of this note might be different fr om the original. PATIENT NAME: Chaya Chan : 1940: AGE: 73 y.o. PRIMARY CARE: Doug García MD CHIEF COMPLAINT: Chief Complaint Patient presents with Follow-up post [place] HISTORY OF PRESENT ILLNESS 73 y.o. year old female with with known coronary chills sclerotic heart disease and status post multiple circumflex stents. She was hospitalized in [place] for 2 days for a very l imited IL by enzymes. He refused further work up at that time and was treated medically. S he has had rare chest pain since then and has uses rare nitroglycerin tablets. He is grace barnes living with her family in [place] for the next few months. She has been reluctant for fu rther workup of this. She had not taken her blood pressure medications today before her vis it and states that her blood pressures are elevated in doctor's office. CURRENT ASSESSMENT BY PROBLEM LIST CORONARY ARTERY DISEASE S/P limited IL in [place] 10/2013 with peak troponin of only 1.54 . Has used 3 NTG since then. Believes certain foods causes angina. P: Continue medications Recommend stress testing for risk stratification. Pt wants to wait till December to do. Ashely medinasarah she can do walking. Instructed to notify if symptoms worsen before then. Hypertension Hypertension _ Elevated today. Has not taken BP meds today. Says she gets white coat HTN P: INcrease Lisinopril to 5 mg daily BP diary encouraged FOLLOWUP Return in about 2 months (around 01/19/2014) for Nuclear stress test. MEDICATION ADJUSTMENTS New Prescriptions No medications on file Medications Discontinued During This Encounter Medication Reason lisinopril (PRINIVIL,ZESTRIL) 2.5 MG tablet Reorder NEW ORDERS Orders Placed This Encounter Procedures NM Nuclear Stress Test (Exercise) . MEDICAL, SURGICAL, AND PERSONAL HISTORY Past Medical History Diagnosis Date Coronary artery disease Hyperlipidemia Hypertension Thyroid disease IL (myocardial infarction) (HCC) Past Surgical History Procedure Date Coronary angioplasty Tonsillectomy Her family history is not on file. She reports that she has never smoked. She does not have any smokeless tobacco history on file. She reports that she drinks alcohol. CURRENT MEDICATIONS Outpatient Encounter Prescriptions as of 11/19/2013 Medication Sig Dispense Refill ascorbic acid ([employer]S VITAMIN C) 1000 MG tablet Take 1,000 mg by mouth Daily. aspirin 81 mg EC tablet Take 81 mg by mouth Daily. atorvaSTATin (LIPITOR) 80 MG tablet Take 80 mg by mouth nightly. B Akkurec-Axoznu-UR ( VITAMIN B 50/B-COMPLEX) TABS once a day clopidogrel (PLAVIX) 75 mg tablet Take 75 mg by mouth Daily. GARLIC CAPS; once a day lisinopril (PRINIVIL, ZESTRIL) 5 mg tablet Take 1 tablet by mouth Daily. 90 tablet 3 [DISCONTINUED] lisinopril (PRINIVIL,ZESTRIL) 2.5 MG tablet Take 2.5 mg by mouth Daily. magnesium (GNP MAGNESIUM) 250 MG tablet Take 250 mg by mouth 2 times daily. metoprolol tartrate (LOPRESSOR) 25 mg tablet Take 25 mg by mouth Daily. nitroglycerin (NITROSTAT) 0.4 mg SL tablet 0.4 mg as needed for chest pain, may repeat every 15 mins x 2 100 tablet 2 pantoprazole (PROTONIX) 40 mg tablet Take 40 mg by mouth once. Red Yeast Rice 600 MG CAPS Take 600 mg by mouth 3 times daily. ALLERGIES Allergies Allergen Reactions Diltiazem Hcl Iodinated Diagnostic Agents ROS 14 point ROS was completed and is negative except for: No other new findings PHYSICAL EXAM BP 210/110 | Pulse 84 | Ht 1.651 m (5' 5") | Wt 76.658 kg (169 lb) | BMI 28.12 kg/m2 Body mass index is 28.12 kg/(m^2). GENERAL: Pleasant appearing in no apparent distress HEENT: Conjunctivae and lids are normal in appearance. Eyes: Extraocular movements intact. NECK: Supple, no JVD, Carotids are 2+ and brisk bilaterally without bruits. CHEST: Good inspiratory effort with no crackles, ronchi, or wheezes. CARDIAC: PMI is non-displaced. Regular rate and rhythm with normal S1 and S2. No murmurs, r ubs or gallops. Blood pressures are equal in upper extremities. ABDOMEN: Soft, non-tender, nondistended with normal, active [...] LABS Lab Results Component Value Date WBC 4.9 12/10/2011 HGB 11.3* 12/10/2011 HCT 33.8* 12/10/2011 PLT 164 12/10/2011 CHOL 165 12/08/2011 TRIG 109 12/08/2011 HDL 46 12/08/2011 ALT 21 12/07/2011 AST 23 12/07/2011 NA 139 12/10/2011 K 3.8 12/10/2011 CL 106 12/10/2011 CREA 0.98 12/10/2011 BUN 18 12/10/2011 CO2 23 12/10/2011 TSH 3.7 03/24/2011 INR 1.0 12/07/2011 Thank you for allowing me to participate in the care of this patient. If you have any ques tions, please do not hesitate to contact me. Signed by: Fly Christianson MD [facility] 11/19/2013, 8:44 Patient Care Team: Doug García MD as PCP - General (Pulmonary Disease) documented in this e ncounter Plan of Treatment + + +--------+ + + | Name | Type | Priori | Associated Diagnoses | Order Schedule | | | | ty | | | + + +--------+ + + | NM Nuclear Stress | Cardiac | Routin | CORONARY ARTERY | Expected: | | Test (Exercise) | Nuclear | e | DISEASE | 11/19/2013, Expires: | | | Medicine | | | 11/19/2014 | + + +--------+ + + documented as of this encounter Visit Diagnoses + + | Diagnosis | + + | CORONARY ARTERY DISEASE - Primary Coronary atherosclerosis of unspecified type of | | vessel, [place]une or graft | + + | Hypertension Unspecified essential hypertension | + + documented in this encounter
--- OUTSIDE RECORDS SUMMARY | ~2019-07-30 | XMS | Encounter Summary ---
Demographics + + + | Address | [address] | | | [place] [address] | + + + | Home Phone | | + + + | Preferred Language | Unknown | + + + | Marital Status | | + + + | Quaker Affiliation | 1001 | + + + | Race | Unknown | + + + | Ethnic Group | Unknown | + + + Author + + + | Author | [facility] | | | and [place] | + + + | Organization | [facility] | | | and [...] Team Providers + +------+ + | Care Sign Builder Name | Role | Phone | + +------+ + | Doug García MD | PCP | | + +------+ + Encounter Details +--------+ + + + + | Date | Type | Department | Care Team | Description | +--------+ + + + + | 01/20/ | Hospital | [facility] | Ivon Shelton | | | 2014 | Encounter | [facility] | MD Adrian [address] | | | | | CLINIC LAB [address] | | | | | [facility], | [place] [address] | | | | | [place] [address] | [phone] | | | | | [phone] | | | +--------+ + + + [...] + + | [facility] | [address] [facility] | [place] [address] | | | [facility] | | | | | LABORATORY | | | | + + + + + documented in this encounter Visit Diagnoses Not on filedocumented in this encounter"
--- OUTSIDE RECORDS SUMMARY | ~2019-07-30 | XMS | Encounter Summary ---
Demographics + + + | Address | [address] | | | [place] [address] | + + + | Home Phone | | + + + | Preferred Language | Unknown | + + + | Marital Status | | + + + | Voodoo Affiliation | 1001 | + + + | Race | Unknown | + + + | Ethnic Group | Unknown | + + + Author + + + | Author | [facility] | | | and [place] | + + + | Organization | [facility] | | | [...] Team Providers + +------+ + | Care Rehab Therapist Name | Role | Phone | + [...] | | | | | | | [place] | | | | | | | coronary | | | | | | | artery | | | | | | | Coronary | | | | | | | atherosclero | | | | | | | sis of | | | | | | | [place] | | | | | | | coronary | | | | | | | artery | | | | | | | Procedures | | | | | | | [place] CABG, | | | | | | [...] | +--------+ + + + + | 12/23/ | Hospital | [facility] | Brandon Franco, | | | 2013 | Encounter | [facility] | [address] | | | | | [address] | [place] [address] | | | | | [place] | [phone] | | | | | [address] | | | | | | [phone] | | | +--------+ + + + [...] | 0 | 04/06/20 | | | [id number] | | | | 11 | 4 [...] XR CHEST PA AND | Routin | 12/23/2013 | | Results for this | | LATERAL | e | 2:09 PM | | procedure are in the | | | | PDT | | results section. | + +--------+ + + + documented in this encounter Results XR Chest PA and Lateral (12/23/2013 2:09 PM PDT) + + | Specimen | + + | | + + + + + | Narrative | Performed At | + + + | CHEST TWO VIEWS CLINICAL INFORMATION: Pre operative | [facility] | | coronary artery bypass graft surgery December 24, 2013. COMPARISON: | | | 12/15/2013 and other priors FINDINGS: Heart, lungs and vessels | | | normal. No pneumothorax, pleural effusion or adenopathy. No | | | significant bone abnormality. IMPRESSION: Negative chest. | | + + + + + | Procedure Note | + + | Mauricio, Rad Results In - 12/23/2013 3:06 PM PDT | | | | CHEST TWO VIEWS | | | | CLINICAL INFORMATION: | | Pre operative coronary artery bypass graft surgery December 24, 2013. | | | | COMPARISON: | | 12/15/2013 and other priors | | | | FINDINGS: | | Heart, lungs and vessels normal. No pneumothorax, pleural effusion or | | adenopathy. No significant bone abnormality. | | | | IMPRESSION: | | Negative chest. | + + + + + + + | Performing | Address | City/State/Zipcode | Phone Number | | Organization | | | | + + + + + | [facility] | [facility], [address] | [place] [address] | [phone] | | | [place] | | | + + + + + documented in this encounter Visit Diagnoses Not on filedocumented in this encounter"
--- OUTSIDE RECORDS SUMMARY | ~2019-07-30 | XMS | Encounter Summary ---
Demographics + + + | Address | [address] | | | [place] [address] | + + + | Home Phone | | + + + | Preferred Language | Unknown | + + + | Marital Status | | + + + | Taoism Affiliation | 1001 | + + + | Race | Unknown | + + + | Ethnic Group | Unknown | + + + Author + + + | Author | [facility] | | | and [place] | + + + | Organization | [facility] | | [...] Team Providers + +------+ + | Care Poultry And Fish Butcher Name | Role | Phone | + +------+ + | Doug García MD | PCP | | + +------+ + Encounter Details +--------+ + + + + | Date | Type | Department | Care Team | Description | +--------+ + + + + | 02/20/ | Documentati | [facility] | Bernice Butler | | | 2013 | on | HEART | A, PharmD [address] | | | | [address]TICOAGULATION AND | [address] | | | | | PHARMACOTHERAPY | [place] [address] | | | | | CLINIC [address] | [phone] | | | | | [address] | | | | | | [place], [place] | | | | | | [address] | | | | | | [phone] | | | +--------+ + + + [...] - Primary Atrial fibrillation | + + documented in this encounter"
--- OUTSIDE RECORDS SUMMARY | ~2019-07-30 | XMS | Encounter Summary ---
Demographics + + + | Address | [address] | | | [place] [address] | + + + | Home Phone | | + + + | Preferred Language | Unknown | + + + | Marital Status | | + + + | Voodoo Affiliation | 1001 | + + + | Race | Unknown | + + + | Ethnic Group | Unknown | + + + Author + + + | Author | [facility] | | | and [place] | + + + | Organization | [facility] | | | and [place] | + + + | Address | Unknown | + + + | Phone | Unavailable | + + + Support + + +---------+ + | Name | Relationship | Address | Phone | + + +---------+ + | Kimbelry Lyon | ECON | Unknown | | + + +---------+ + | Francesmami Chan | ECON | Unknown | | + + +---------+ + Care Team Providers + +------+ + | Care Construction Operations Manager Name | Role | Phone | [...] Description | +--------+--------+ + + + | 03/10/ | Refill | [facility] | Brandon Franco, | Medication Refill | | 2013 | | [facility] | [address] | | | | | [facility] [address] | [place] [address] | | | | | [address] | [phone] | | | | | [place], [place] | | | | | | [address] | | | | | | [phone] | | | +--------+--------+ + + + [...]
--- OUTSIDE RECORDS SUMMARY | ~2019-07-30 | XMS | Encounter Summary ---
Demographics + + + | Address | [address] | | | [place] [address] | + + + | Home Phone [...] Team Providers + +------+ + | Care Microfilm Equipment Inspector Name | Role | Phone | + [...] Description | +--------+---------+ + + + | 02/25/ | Office | [facility] | Doug García MD | Obstructive sleep | | 2015 | Visit | [facility] | [address] | apnea (Primary Dx); | | | | Internal Medicine | [place] [address] | Benign essential | | | | [address] | [phone] | hypertension; | | | | [place], [place] | | Coronary artery | | | | [address] | | disease due to | | | | [phone] | | calcified coronary | | | | | | lesion; Restless | | | | | | legs syndrome (RLS); | | | | | | Hyperlipidemia; | | | | | | Hypothyroidism due | | | | | | to acquired atrophy | | | | | | of thyroid | +--------+---------+ + + + Social History [...] + + + | Blood Pressure | 126/64 | 02/25/2015 4:01 PM | | | | | PDT | | + + + + + | Pulse | 84 | 02/25/2015 4:01 PM | | | | | PDT | | + + + + + | Temperature | - | - | | + + + + + | Respiratory Rate | 18 | 02/25/2015 4:01 PM | | | | | PDT | | + + + + + | Oxygen Saturation | 94% | 02/25/2015 4:01 PM | 94% room air, uses | | | | PDT | C-PAP | + + + + + | Inhaled Oxygen | - | - | | | Concentration | | | | + + + + + | Weight | 85.3 kg (188 lb) | 02/25/2015 4:01 PM | | | | | PDT | | + + + + + | Height | - | - | | + + + + + | Body Mass Index | 31.28 | 09/08/2014 8:50 AM | | | | | PST [...] of this encounter Patient Instructions Patient Instructions Doug García MD - 02/25/2015 4:41 PM PDT Continuous Positive Air Pressure (CPAP) Continuous positive air pressure (CPAP)uses gentle air pressure to hold the airway open. CPAP is often the most effective treatment for sleep apnea and severe snoring. It works very well for many people. But keep in mind that it can take several adjustments before the setu p is right for you. How CPAP Works CPAP is asmall portable pump beside the bed. The pumpsends air through a hose, which is held over your noseand/or mouthby a mask.Mild air pressureis gently pushed through your airway. The air pressure nudges sagging tissues aside. This widens the airway so you ca n breathe better. CPAP may be combined with other kinds of therapy for sleep apnea. Types of Air Pressure Treatments There are different types of CPAP. Your doctor or CPAP emergency room technician will help you decide whic h type is best for you: Basic CPAPkeeps the pressure constant all night long. A bilevel device(BiPAP)providesmore pressure when you breathe in and less when you breathe out.A BiPAP machine also may be set to provide automatic breaths to maintain kermit thing if you stop breathing while sleeping. An autoCPAP deviceautomatically adjusts pressure throughout the night and in response to changes such as body position, sleep stage, and snoring. 7121-[address] [employer]. [address] [place] [address], [place] [address]. All righ ts reserved. This information is not intended as a substitute for professional medical care. Always follow your healthcare professional's instructions. documented in this encounter Progress Notes Doug García MD - 02/25/2015 10:05 PM PDTFormatting of this note might be different from t eleonora original. [facility] CLINIC NOTE Patient Name: Chaya Chan 74 y.o. Date of : 1940 MR Number: [id number] Date of Visit: 02/25/2015 Patient Active Problem List Diagnosis Hypothyroidism Hyperlipidemia Obstructive sleep apnea Restless legs syndrome (RLS) Benign essential hypertension Coronary artery disease NSTEMI (non-ST elevated myocardial infarction) Chronic diastolic CHF (congestive heart failure), NYHA class 2 Paroxysmal atrial fibrillation Post pericardiotomy syndrome Pleural effusion on left Second degree AV block Benign paroxysmal positional vertigo Carotid artery stenosis Subjective: Chaya Chan is a 74 y.o. female patient here today for follow up. She is doing well . Her breathing has been stable. She denies any chest pains or palpitations. She continues to use her CPAP every night, averaging 7 hours of sleep with the CPAP on. No reports of sn oring breakthrough. She still occasionally feels sleepy during the day. Patient's medications, allergies, past medical, surgical, social [...] Take 1 tablet by mouth Daily. levothyroxine (SYNTHROID, LEVOTHROID) 75 MCG tablet Take 1 tablet by mouth every mornin g (before breakfast). magnesium, as oxide, (GNP MAGNESIUM) 250 MG tablet Take 250 mg by mouth 3 times daily. meclizine (ANTIVERT) 25 mg tablet Take 1 tablet by mouth every 6 hours as needed. potassium 99 mg tablet Take 99 mg by mouth Daily. zinc sulfate 220 mg capsule Take 220 mg by mouth 2 times daily. Allergies Allergen Reactions Iodine Anaphylaxis Diltiazem Hcl Latex Lidocaine Red Dye Review of Systems Constitutional - no recent weight loss, no fever, no chills, no night sweats, no weaknes s EENT- no vision changes, no eye pain, no earache, no sore throat Respiratory - no orthopnea or PND, no cough Gastrointestinal - appetite good, bowel movements regular, [...] anxiety, no depression, no insomnia Objective: BP 126/64 mmHg | Pulse 84 | Resp 18 | Wt 85.276 kg (188 lb) | SpO2 94% Gen Liang - alert, no distress, well-nourished HEENT - PERRLA, full EOM's, no icterus, no active nasal congestion, oral mucosa moist, p harynx clear Neck - supple, no lymphadenopathy, no JVD Lungs - good air movement bilaterally, no rhonchi, no active wheezing, no crackles Chest wall - no tenderness or deformity Heart - regular rhythm, normal rate, no murmur Abdomen - soft, non-tender, bowel sounds active, no organomegaly Extremities - no calf tenderness, no pedal edema, pulses intact Skin - no rash, no active lesions Neurologic - mental status clear, no focal deficits Assessment and Plan: Chaya was seen today for follow-up. Diagnoses and associated orders for this visit: 1. Obstructive sleep apnea 2. Benign essential hypertension 3. Coronary artery disease 4. Restless legs syndrome (RLS) 5. Hyperlipidemia 6. Hypothyroidism PLAN: We discussed the pathophysiology of sleep apnea [...] regular usage. Continue current medications. Follow-up in 6 months. Electronically signed by: Doug García 02/25/2015 22:05 [facility] documented in this encou nter Plan of Treatment Not on filedocumented as of this encounter Visit Diagnoses + + | Diagnosis | + + | Obstructive sleep apnea - Primary Obstructive sleep apnea (adult) (pediatric) | + + | Benign essential hypertension Essential hypertension, benign | + + | Coronary artery disease due to calcified coronary lesion | + + | Restless legs syndrome (RLS) | + + | Hyperlipidemia Other and unspecified hyperlipidemia | + + | Hypothyroidism due to acquired atrophy of thyroid | + + documented in this encounter"
--- OUTSIDE RECORDS SUMMARY | ~2019-07-30 | XMS | Encounter Summary ---
Demographics + + + | Address | [address] | | | [place] [address] | + + + | Home Phone | | + + + | Preferred Language | Unknown | + + + | Marital Status | | + + + | Pentecostalism Affiliation | 1001 | + + + | Race | Unknown | + + + | Ethnic Group | Unknown | + + + Author + + + | Author | [facility] | | | and [place] | + + + | Organization | [facility] | | | and [...] Team Providers + +------+ + | Care Spreader Operator Name | Role | Phone | [...] | +--------+ + + + + | 03/27/ | Emergency | [facility] | S[facility] | NSTEMI (non-ST | | 2018 - | | [facility] | MD Mynor [address] | elevated myocardial | | | | EMERGENCY [facility]ENTER | [address] | infarction) (HCC) | | 03/28/ | | [address] | [place] [address] | (Primary Dx) | | 2018 | | [place], [place] | [phone] | | | | | [address] | | | | | | [phone] | Anny Child | | | | | | MD Lindsey [address] | | | | | | [address] | | | | | | [place] [address] | | | | | | [phone] | | | | | | | [...] + + + | Blood Pressure | 149/63 | 03/28/2018 1:01 AM | | | | | PDT | | + + + + + | Pulse | 72 | 03/28/2018 1:01 AM | | | | | PDT | | + + + + + | Temperature | 36.7 C (98 F) | 03/27/2018 6:05 PM | | | | | PDT | | + + + + + | Respiratory Rate | 10 | 03/28/2018 1:01 AM | | | | | PDT | | + + + + + | Oxygen Saturation | 99% | 03/28/2018 1:01 AM | | | | | PDT | | + + + + + | Inhaled Oxygen | - | - | | | Concentration | | | | + + + + + | Weight | 69.4 kg (153 lb) | 03/27/2018 6:05 PM | | | | | PDT | | + + + + + | Height | 165.1 cm (5' 5") | 03/27/2018 6:05 PM | | | | | PDT | | + + + + + | Body Mass Index | 25.46 | 03/27/2018 6:05 PM | | | | | PDT [...] + + + +---------+ + + | apixaban (ELIQUIS) | Take 1 tablet by | 60 | 3 | 10/04/19 | | | 5 mg tablet | mouth 2 times daily. | tablet | | 18 | 8 | + + + +---------+ [...] tablets by | 90 | 11 | 03/31/20 | | | succinate | mouth Daily. | tablet | | 18 | 8 | | (TOPROL-XL) 25 mg 24 | [...] + | TROPONIN I | STAT | 03/27/2018 | | Results for this | | | | 10:50 PM | | procedure are in the | | | | PDT | | results section. | + +--------+ + + + | TROPONIN I | STAT | 03/27/2018 | | Results for this | | | | 7:47 PM | | procedure are in the | | | | PDT | | results section. | + +--------+ + + + | XR CHEST PA AND | STAT | 03/27/2018 | | Results for this | | LATERAL | | 7:18 PM | | procedure are in the | | | | PDT | | results section. | + +--------+ + + + | NT-PRO BNP | STAT | 03/27/2018 | | Results for this | | | | 6:35 PM | | procedure are in the | | | | PDT | | results section. | + +--------+ + + + | TROPONIN I | STAT | 03/27/2018 | | Results for this | | | | 6:35 PM | | procedure are in the | | | | PDT | | results section. | + +--------+ + + + | CBC WITH | STAT | 03/27/2018 | | Results for this | | DIFFERENTIAL | | 6:35 PM | | procedure are in the | | | | PDT | | results section. | + +--------+ + + + | COMPREHENSIVE | STAT | 03/27/2018 | | Results for this | | METABOLIC PANEL | | 6:35 PM | | procedure are in the | | | | PDT | | results section. | + +--------+ + + + documented in this encounter Results Troponin I (03/27/2018 10:50 PM PDT) + + + + + + | Component | Value | Ref Range | Performed | Pathologist | | | | | At | Signature | + + + + + + | Troponin I | 8.20 (AA)Comment: | 0.00 - 0.08 | [facility] | | | | >0.219 ng/mL. | ng/ml | [facility] | | | | Consistent with a | | [facility] | | | | traditional acute | | HOSPITAL | | | | myocardial infarction. | | LABORATORY | | | | Serial troponin levels | | [facility] | | | | are recommended Critical | | | | | | Troponin called to and | | | | | | read back by Stephanie at | | | | | | 03/27/2018 23:38:44 PDT | | | | | | by HARVEY.Performed by [facility] | | | | | | [address], | | | | | | [facility] [address] | | | | + + + + + + + + | Specimen | + + | Blood specimen | | (specimen) | + + + + + + + | Performing | Address | City/State/Zipcode | Phone Number | | Organization | | | | + + + + + | [facility] | [address] | [place] [address] | | | [facility] | | | | | LABORATORY [facility] | | | | + + + + + Troponin I (03/27/2018 7:47 PM PDT) + + + + + + | Component | Value | Ref Range | Performed | Pathologist | | | | | At | Signature | + + + + + + | Troponin I | 1.61 (AA)Comment: | 0.00 - 0.08 | [facility] | | | | >0.219 ng/mL. | ng/ml | [facility] | | | | Consistent with a | | [facility] | | | | traditional acute | | HOSPITAL | | | | myocardial infarction. | | LABORATORY | | | | Serial troponin levels | | [facility] | | | | are recommended.Verified | | | | | | by repeat analysis. | | | | | | Critical Troponin | | | | | | called to and read back | | | | | | by Demetria at 03/27/2018 | | | | | | 20:43:13 PDT by | | | | | | LAW.Performed by [facility] [address] | | | [address], | | | | | | [place] [address] | | | | + + + + + + + + | Specimen | + + | Blood specimen | | (specimen) | + + + + + + + | Performing | Address | City/State/Zipcode | Phone Number | | Organization | | | | + + + + + | [facility] | [address] | [place] [address] | | | [facility] | | | | | LABORATORY [facility] | | | | + + + + + XR Chest PA and Lateral (03/27/2018 7:18 PM PDT) + + | Specimen | + + | | + + + + + | Narrative | Performed At | + + + | CHEST PA AND LATERAL CLINICAL INFORMATION: Chest pain after | [facility] | | exertion today. Prior history of heart attack COMPARISON: XR | | | CHEST AP PORTABLE dated 08/24/2017; XR CHEST PA AND LATERAL dated | | | 01/30/2014; XR CHEST PA AND LATERAL dated 01/12/2014 FINDINGS: | | | Heart size is upper normal. Multiple monitoring leads are seen. | | | Sternotomy wires and surgical clips are present. No effusions or | | | focal infiltrates are seen. Pulmonary vascularity is within normal | | | limits. IMPRESSION: CABG changes. No acute abnormality. | | | Signed by: Melina Novoa Date/Time: 03/27/2018 7:29 PM | | + + + + + | Procedure Note | + + | Mauricio, Rad Results In - 03/27/2018 7:32 PM PDT | | CHEST PA AND LATERAL | | | | CLINICAL INFORMATION: | | Chest pain after exertion today. Prior history of heart attack | | | | COMPARISON: | | XR CHEST AP PORTABLE dated 08/24/2017; XR CHEST PA AND LATERAL dated | | 01/30/2014; XR CHEST PA AND LATERAL dated 01/12/2014 | | | | FINDINGS: | | Heart size is upper normal. Multiple monitoring leads are seen. | | Sternotomy wires and surgical clips are present. No effusions or | | focal infiltrates are seen. Pulmonary vascularity is within normal | | limits. | | | | IMPRESSION: | | CABG changes. No acute abnormality. | | | | | | | | Signed by: Melina Novoa | | Sign Date/Time: 03/27/2018 7:29 PM | + + + +---------+ + + | Performing | Address | City/State/Zipcode | Phone Number | | Organization | | | | + +---------+ + + | [facility] | | | | + +---------+ + + NT-PRO BNP (03/27/2018 6:35 PM PDT) + + + + + + | Component | Value | Ref Range | Performed | Pathologist | | | | | At | Signature | + + + + + + | NT-proBNP | 733 (H)Comment: | <=449 pg/mL | [facility] | | | | Performed by [facility] [address] | | [address] | | | [address] | | [place] | | | | [place] [address] | | HOSPITAL | | | | | | LABORATORY | | | | | | [facility] | | + + + + + + + + | Specimen | + + | Blood specimen | | (specimen) | + + + + + + + | Performing | Address | City/State/Zipcode | Phone Number | | Organization | | | | + + + + + | [facility] | [address] | [place] [address] | | | [facility] | | | | | LABORATORY [facility] | | | | + + + + + Troponin I (03/27/2018 6:35 PM PDT) + + + + + + | Component | Value | Ref Range | Performed | Pathologist | | | | | At | Signature | + + + + + + | Troponin I | 0.31 (AA)Comment: | 0.00 - 0.08 | [facility] | | | | Critical Troponin called | ng/ml | [facility] | | | | to and read back by | | [facility] | | | | Vanessa at 03/27/2018 | | HOSPITAL | | | | 19:21:56 PDT by | | LABORATORY | | | | Esteban.>0.219 ng/mL. | | [facility] | | | | Consistent with a | | | | | | traditional acute | | | | | | myocardial infarction. | | | | | | Serial troponin levels | | | | | | are recommendedPerformed | | | | | | by [facility] [address] | | | | | | [place] [address] | | | | + + + + + + + + | Specimen | + + | Blood specimen | | (specimen) | + + + + + + + | Performing | Address | City/State/Zipcode | Phone Number | | Organization | | | | + + + + + | [facility] | [address] | [place] [address] | | | [facility] | | | | | LABORATORY [place] | | | | + + + + + Comprehensive Metabolic Panel (03/27/2018 6:35 PM PDT) + + + + + [...] LABORATORY | | | | | | [facility] | | + + + + + + | K | 3.6 | 3.5 - 5.1 | [facility] | | | | | mmol/L | [facility] | | | | | | [facility] | | | | | | [facility] | | | | | | LABORATORY | | | | | | [facility] | | + + + + + + | Cl | 101 | 98 - 109 mmol/L | [facility] | | | | | | [facility] | | | | | | [facility] | | | | | | [facility] | | | | | | LAB[facility]ATORY | | | | | | [facility] | | + + + + + + | CO2 | 27 | 21 - 32 mmol/L | [facility] | | | | | | [facility] | | | | | | [facility] | | | | | [facility] | | | | | | LAB[facility]ATORY | | | | | | [facility] | | + + + + + + | Calcium | 9.3 | 8.5 - 10.2 | [facility] | | | | | mg/dL | [facility] | | | | | | [facility] | | | | | | [facility] | | | | | | LABORATORY | | | | | | [facility] | | + + + + + + | Anion Gap | 10 | 10 - 20 mmol/L | [facility] | | | | | | [facility] | | | | | | [facility] | | | | | [facility] | | | | | | LABORATORY | | | | | | [facility] | | + + + + + + | Albumin | 4.0 | 3.5 - 5.0 g/dL | [facility] | | | | | | [facility] | | | | | | [facility] | | | | | [facility] | | | | | | LABORATORY | | | | | | [facility] | | + + + + + + | BUN | 16 | 8 - 21 mg/dL | [facility] | | | | | | [facility] | | | | | | [facility] | | | | | [facility] | | | | | | LAB[facility]ATORY | | | | | | [facility] | | + + + + + + | Creatinine | 1.08 | 0.50 - 1.20 | [facility] | | | | | mg/dL | [facility] | | | | | | [facility] | | | | | | [facility] | | | | | | LAB[facility]ATORY | | | | | | [facility] | | + + + + + + | Glucose | 113 | 60 - 114 mg/dL | [facility] | | | | | | [facility] | | | | | | [facility] | | | | | | [facility] | | | | | | LAB[facility]ATORY | | | | | | [facility] | | + + + + + + | Total | 7.7 | 6.3 - 8.0 g/dL | [facility] | | | Protein | | | [facility] | | | | | | [facility] | | | | | | [facility] | | | | | | LABORATORY | | | | | | [facility] | | + + + + + + | Alkaline | 71 | 38 - 110 U/L | [facility] | | | Phosphatase | | | [facility] | | | | | | [facility] | | | | | | [facility] | | | | | | LABORATORY | | | | | | [facility] | | + + + + + + | ALT | 25 | 12 - 78 u/L | [facility] | | | | | | [facility] | | | | | | [facility] | | | | | [facility] | | | | | | LABORATORY | | | | | | [facility] | | + + + + + + | AST | 18 | 5 - 40 U/L | [facility] | | | | | | [facility] | | | | | | [facility] | | | | | [facility] | | | | | | LABORATORY | | | | | | [facility] | | + + + + + + | Bilirubin | 0.3 | 0.2 - 1.0 mg/dL | [facility] | | | Total | | | [facility] | | | | | | [facility] | | | | | | [facility] | | | | | | LABORATORY | | | | | | [facility] | | + + + + + + | Estimated | 50 (L)Comment: eGFR<60 | >=90 | [facility] | | | GFR | consistent with impaired | mL/min/1.73m2 | [facility] | | | | kidney | | [facility] | | | | function.Performed by | | HOSPITAL | | | | [facility] [address], | | LABORATORY | | | | [place] [address] | | [facility] | | + + + + + + + + | Specimen | + + | Blood specimen | | (specimen) | + + + + + + + | Performing | Address | City/State/Zipcode | Phone Number | | Organization | | | | + + + + + | [facility] | [address] | [place] [address] | | | [facility] | | | | | LABORATORY [place] | | | | + + + + + CBC with Differential (03/27/2018 6:35 PM PDT) + + + +-- + + | Component | Value | Ref Range | P erformed | Pathologist | | | | | A t | Signature | + + + +-- + + | WBC | 4.8 | 3.8 - 11.0 K/uL | [facility] | | | | | | [facility] | | | | | | [facility] | | | | | | H [facility] | | | | | | L ABORATORY | | | | | | C [facility] | | + + + +-- + + | RBC | 3.51 (L) | 3.70 - 5.10 | [facility] | | | | | M/uL | [facility] | | | | | | [facility] | | | | | | H [facility]SPITAL | | | | | | L ABORATORY | | | | | | C [facility] | | + + + +-- + + | Hemoglobin | 10.9 (L) | 11.3 - 15.5 | [facility] | | | | | g/dL | [facility] | | | | | | C [facility] | | | | | | H [facility]SPITAL | | | | | | L ABORATORY | | | | | | C [facility] | | + + + +-- + + | Hct | 32.0 (L) | 34.0 - 46.0 % | [facility] | | | | | | [facility] | | | | | | [facility] | | | | | | H [facility]SPITAL | | | | | | L ABORATORY | | | | | | C [facility] | | + + + +-- + + | MCV | 91.0 | 80.0 - 100.0 fL | [facility] | | | | | | [facility] | | | | | | [facility] | | | | | | [facility]ITAL | | | | | | L ABORATORY | | | | | | C [facility] | | + + + +-- + + | MCH | 30.9 | 27.0 - 34.0 pg | [facility] | | | | | | [facility] | | | | | | C [facility] | | | | | | H [facility]SPITAL | | | | | | L ABORATORY | | | | | | C [facility] | | + + + +-- + + | MCHC | 33.9 | 32.0 - 35.5 | [facility] | | | | | g/dL | [facility] | | | | | | C [facility] | | | | | | H OSPITAL | | | | | | L ABORATORY | | | | | | C [facility] | | + + + +-- + + | RDW-CV | 13.8 | 11.0 - 15.5 % | [facility] | | | | | | [facility] | | | | | | [facility] | | | | | | H [facility]ITAL | | | | | | L ABORATORY | | | | | | C [facility] | | + + + +-- + + | Platelet | 163 | 150 - 400 K/uL | [facility] | | | Count | | | [facility] | | | | | | C [facility] | | | | | | H [facility]SPITAL | | | | | | L ABORATORY | | | | | | C [facility] | | + + + +-- + + | MPV | 9.8 | 7.5 - 11.2 fL | [facility] | | | | | | [facility] | | | | | | [facility] | | | | | | H [facility]SPITAL | | | | | | L ABORATORY | | | | | | C [facility] | | + + + +-- + + | % | 71.6 | 40.0 - 75.0 % | [facility] | | | Neutrophils | | | [facility] | | | | | | C [facility] | | | | | | H [facility]SPITAL | | | | | | L ABORATORY | | | | | | C [facility] | | + + + +-- + + | % | 20.1 | 15.0 - 48.0 % | [facility] | | | Lymphocytes | | | [facility] | | | | | | C [facility] | | | | | | H OSPITAL | | | | | | L ABORATORY | | | | | | C [facility] | | + + + +-- + + | % Monocytes | 6.7 | 0.0 - 12.0 % | [facility] | | | | | | [facility] | | | | | | C [facility] | | | | | | H [facility]SPITAL | | | | | | L ABORATORY | | | | | | C [facility] | | + + + +-- + + | % | 1.1 | 0.0 - 7.0 % | [facility] | | | Eosinophils | | | [facility] | | | | | | C [facility] | | | | | | H OSPITAL | | | | | | L ABORATORY | | | | | | C [facility] | | + + + +-- + + | % Basophils | 0.5 | 0.0 - 2.0 % | [facility] | | | | | | [facility] | | | | | | C [facility] | | | | | | H [facility]SPITAL | | | | | | L ABORATORY | | | | | | C [facility] | | + + + +-- + + | Absolute | 3.40 | 1.90 - 7.40 | [facility] | | | Neutrophils | | K/uL | [facility] | | | | | | C [facility] | | | | | | H [facility]SPITAL | | | | | | L ABORATORY | | | | | | C [facility] | | + + + +-- + + | Absolute | 0.96 (L) | 1.00 - 3.90 | [facility] | | | Lymphocytes | | K/uL | [facility] | | | | | | C [facility] | | | | | | H OSPITAL | | | | | | L ABORATORY | | | | | | C [facility] | | + + + +-- + + | Absolute | 0.32 | 0.00 - 0.80 | [facility] | | | Monocytes | | K/uL | [facility] | | | | | | C [facility] | | | | | | H OSPITAL | | | | | | L ABORATORY | | | | | | C [facility] | | + + + +-- + + | Absolute | 0.05 | 0.00 - 0.50 | [facility] | | | Eosinophils | | K/uL | [facility] | | | | | | C [facility] | | | | | | H OSPITAL | | | | | | L ABORATORY | | | | | | C [facility] | | + + + +-- + + | Absolute | 0.02Comment: Performed | 0.00 - 0.10 | [facility] | | | Basophils | [address] | K/uL | [facility] | | | | [facility] [address] | | C A[facility] | | | |Performed by [address] [facility] [address] | | H OSPITAL | | | | | | L ABORATORY | | | | | | C ERNER | | + + + +-- + + + + | Specimen | + + | Blood specimen | | (specimen) | + + + + + + + | Performing | Address | City/State/Zipcode | Phone Number | | Organization | | | | + + + + + | [facility] | [address] | [place] [address] | | | [facility] | | | | | LABORATORY [facility] | | | | + + + [...] chewable tablet 324 mg | Given | 03/27/20 | 324 mg | | | | 324 mg, Oral, ONCE, 03/27/18 | | 18 7:22 | | | | | at 1845, For 1 dose | | PM PDT | | | | + +--------+ +--------+------+------+ +---+---+ | | | +---+---+ documented in this encounter
--- OUTSIDE RECORDS SUMMARY | ~2019-07-30 | XMS | Encounter Summary ---
Demographics + + + | Address | [address] | | | [place] [address] | + + + | Home Phone | | + + + | Preferred Language | Unknown | + + + | Marital Status | | + + + | Jainism Affiliation | 1001 | + + + | Race | Unknown | + + + | Ethnic Group | Unknown | + + + Author + + + | Author | [facility] | | | and [place] | + + + | Organization | [facility] | | | [...] Team Providers + +------+ + | Care Tool Design Drafter Name | Role | Phone | + [...] Description | +--------+--------+ + + + | 01/29/ | Refill | Alejandra Maravilla | Fly Christianson, | Medication Refill | | 2013 | | [facility] | MD [address] | | | | | [address] | [place], | | | | | [place] [address] [place] | [place] [address] | | | | | [address] | [phone] | | | | | [phone] | | | +--------+--------+ + + + [...]
--- OUTSIDE RECORDS SUMMARY | ~2019-07-30 | XMS | Encounter Summary ---
Demographics + + + | Address | [address] | | | [place] [address] | + + + | Home Phone | | + + + | Preferred Language | Unknown | + + + | Marital Status | | + + + | Rastafari Affiliation | 1001 | + + + [...] Team Providers + +------+ + | Care Medicine Man Name | Role | Phone | + [...] Description | +--------+--------+ + + + | 03/30/ | Refill | Alejandra HOLLINS | Doug García MD | Medication Refill | | 2014 | | [facility] | [address] | | | | | Internal Medicine | [place] [address] | | | | | [address] [facility] | [phone] | | | | | [place], [place] | | | | | | [address] | | | | | | [phone] | | | +--------+--------+ + + + [...] + | Diagnosis | + + | Hypothyroidism, unspecified hypothyroidism type - Primary | + + documented in this encounter"
--- OUTSIDE RECORDS SUMMARY | ~2019-07-30 | XMS | Encounter Summary ---
Demographics + + + | Address | [address] | | | [place] [address] | + + + | Home Phone | | + + + | Preferred Language | Unknown | + + + | Marital Status | | + + + | Caodaism Affiliation | [id number] | + + + [...] Team Providers + +------+ + | Care Credit Intern Name | Role | Phone | + +------+ + | Doug García MD | PCP | | + +------+ + Reason for Referral Evaluate & Treat (Routine) +--------+ + + + + + | Status | Reason | Specialty | Diagnoses / | Referred By | Referred To | | | | | Procedures | Contact | Contact | +--------+ + + + + + | Closed | Specialty | Anticoagulati | Diagnoses | Lo | Wsh | | | Services | on | A-fib (HCC) | Tomblin, | Anticoagulati | | | Required | | | CASSIE [address] | on Clinic | | | | | | [address] | [address] | | | | | | [place], | [address] | | | | | | [place] [address] | [place], [place] | | | | | | Phone: | [phone] | | | | | | [phone] | Phone: | | | | | | Fax: | [phone] | | | | | | [phone] | Fax: | | | | | | | [phone] | +--------+ + + + + + Reason for Visit Auth/Cert +--------+--------+ + [...] | | | | | | | yavapai-apache | | | | | | | coronary | | | | | | | artery | | | | | | | Coronary | | | | | | | atherosclero | | | | | | | sis of | | | | | | | yavapai-apache | | | | | | | coronary | | | | | | | artery | | | | | | | Procedures | | | | | | | ND CABG, | | | | | | [...] + + + + | 12/24/ | Hospital | [facility] | Sj Viera, | Stress hyperglycemia | | 2013 - | Encounter | [facility] | [address] | (Primary Dx); | | | | CARDIAC TRANSPLANT | [place] [id number] | Coronary | | 01/02/ | | [address] | [phone] | atherosclerosis of | | 2013 | | [place] | | unspecified type of | | | | [id number] | | vessel, yavapai-apache or | | | | [phone] | | graft; Essential | | | | | | hypertension, | | | | | | benign; NSTEMI | | | | | | (non-ST elevated | | | | | | myocardial | | | | | | infarction) ([facility]); | | | | | | A-fib ([facility]); Acute | | | | | | blood loss anemia; | | | | | | Hyponatremia; Acute | | | | | | systolic heart | | | | | | failure ([facility]) | +--------+ + + + + Social [...] Herrera PA - 01/02/2014 10:18 AM PDT [facility] PATIENT NAME: [...] contrast dye NSTEMI (non-ST elevated myocardial infarction) ([facility]) Acute systolic heart failure (HCC) Stress hyperglycemia [...] room. Hospital Course: Patient was admitted to [facility] on 12/24/[address] Dodie navarrete for [...] She has been referred t o the [facility] anticoagulation clinic for further monitoring. 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 aspirin 81 mg EC tablet Take 81 mg by mouth Daily. atorvaSTATin (LIPITOR) 40 mg tablet Take 1 tablet by mouth Daily. 30 tablet 11 B Kmdrnhl-Horycp-ZM (TH VITAMIN B 50/B-COMPLEX) TABS once a day [...] and to use incentive spirometer. Follow-up with [facility] in 1 month. Follow-up with Doug García in 1-2 weeks. Follow-up with Dr. Armstrong with [place] [facility] in 1 month. If patient has any further questions or concerns prior to above, instructed to call our off ice. [phone]. Signed by: CASSIE Thomas Cardiothoracic Surgery [facility] 01/02/2014, 10:18 [...] ed help. Don t lift anything heavier dxqz5dygkai for6-8 weeks. Until approved by your doctor, [...] the hospital, begin with short wal ks (morsn2tomsfuy) at home. Go a little longer each [...] symptoms you had prior to surgery Fever [id number] Redness, swelling, drainage, or warmth at the incision site Shortness of breath Fainting Weight gain of more eoxo3ogbzxq tv33yrjkg or more guah8rfvwhf ka6yntr(s) New or increasedswelling in your hands, feet, or ankles Pain that cannot be relieved or changes in the location, type, or severity of pain Fast or irregular pulse Unrelieved pain in your incision [id number] [facility], [address] [place] [address], [place] [address]. All rights reserve d. This information is [...] | 0 | 04/06/20 | | | Nucgfuj-Kovgix-WT | | | | 11 | 4 [...] documented as of this encounter Progress Notes Steven Dyer MD - 01/02/2014 11:27 AM PDTFormatting of this note might be different fro m the original. PATIENT NAME: Chaya Chan : 1940: AGE: 73 y.o. ADMISSION DATE: 12/24/2013 Hospital Day: Hospital Day: 10 Code Status: Full Code ABBY Keyes CARDIOLOGY DAILY PROGRESS NOTE PRIMARY [facility]OSPITAL PROBLEM: Coronary atherosclerosis of unspecified type of vessel, yavapai-apache or graft CHIEF COMPLAINT: shortness of breath, [...] CHF (congestive heart failure), NYHA class 2 ([facility]) Overview 12/24/2013 Echo: 1. There is again [...] diphenhydrAMINE, diphenhydrAMINE, diphenhydramine, HYDROcodone-acetaminophen, HYDROcodone-acetaminophen, magnesium hydroxide, zqsqbzmu-lgbbiyptj-ieykmauzag, ondansetron, ondansetron, phenol-menthol, sodium phosphate IV INFUSIONS: [...] INTAKE/OUTPUT Date 01/01/141900 - 01/02/14 0700 01/02/14 07 - 01/03/14 0700 Shift 6426-0497 24 Hour Total 1900-0700 24 Hour Total I N T A [...] (mL/kg) 1600 (20.8) 3000 (38.9) NET -1300 -0881 Weight (kg) 77.1 77.1 77.1 77.1 77.1 [...] cyanosis. Electronically signed by Steven Dyer MD, [facility] DATE/TIME: 01/02/2014 12:32 Porsche Ramos, PharmD - 01/02/2014 9:01 AM PDTFormatting of this note might be different from the [facility] Progress Note Warfarin Per Pharmacy Protocol: [...] P&T-approved Warfarin Protocol Electronically signed by: Porsche Jordan, PHARMObie 01/02/2014 9:01 oDella mayer RN - 01/02/2014 8:21 AM PDTAmbulated patient in sanchez 150 feet, room air, standby assist only, did well Kam Fountain PA - 01/02/2014 7:59 AM PDT [facility] CARDIOTHORACIC SURGERY PROGRESS NOTE Pt. Name/Age/: Chaya Chan 73 y.o. 1940 Med. Record Number: [id number] Date of admission: 12/24/2013 POD #9 Procedure: [...] blood loss anemia Hyponatremia Electronically signed by: Charlie Jacobson PA-C Physician Managing Partner [employer] [place] [facility] Cardiothoracic Surgery 01/02/2014 7:59 [facility] Paloma, Rod Vega (Fritz ), PharmD - 01/01/2014 9:43 AM [...] P&T-approved Warfarin Protocol Electronically signed by: Yonis Randall PHARMD 01/01/2014 9:43 Steven Nettles MD - 01/01/2014 9:28 AM PDT PATIENT NAME: Chaya Chan : 1940: AGE: 73 y.o. ADMISSION DATE: 12/24/2013 Hospital Day: Hospital Day: 9 Code Status: Full Code ABBY Cade CARDIOLOGY DAILY PROGRESS NOTE [facility] PROBLEM: Coronary atherosclerosis of unspecified type of vessel, yavapai-apache or graft CHIEF COMPLAINT: fatigue, some nausea [...] diphenhydrAMINE, diphenhydrAMINE, diphenhydramine, HYDROcodone-acetaminophen, HYDROcodone-acetaminophen, magnesium hydroxide, usokmuaq-bhzqvauim-sysvlvbzrc, ondansetron, ondansetron, phenol-menthol, sodium phosphate LABS Recent [...] 7.4 oz) INTAKE/OUTPUT Date 12/31/131900 - 01/01/14 0701/01/14700 - 01/02/14 07 Shift 9452-3806 24 Hour Total 3702-1908 0733-6758 24 Hour Total I N T A [...] cyanosis. Electronically signed by Steven Dyer MD, [facility] DATE/TIME: 01/01/2014 11:55 Shahrzad Grajeda MD - 01/01/2014 6:59 AM PDT [facility] PROGRESS NOTE Pt. Name/Age/: Chaya Chan 73 y.o. 1940 Med. Record Number: [id number] Date of admission: 12/24/2013 Subjective: The patient [...] Electronically signed by: Shahrzad Flores, 01/01/2014 6:59 [facility] ing, Steven Avelar MD - 12/31/2013 11:05 AM PDT PATIENT NAME: Chaya Chan : 1940: AGE: 73 y.o. ADMISSION DATE: 12/24/2013 Hospital Day: Hospital Day: 8 Code Status: Full Code ABBY Cade CARDIOLOGY DAILY PROGRESS NOTE [facility] PROBLEM: Coronary atherosclerosis of unspecified type of vessel, yavapai-apache or graft CHIEF COMPLAINT: Nausea and vomiting [...] Q12H vitamin C 250 mg Oral BID acetaminophen, acetaminophen, acetaminophen, bisacodyl, diphenhydrAMINE, diphenhydrAMINE, diphenhydramine, HYDROcodone-acetaminophen, HYDROcodone-acetaminophen, gocbubnr-aaqjlxtjy-i acitracin, ondansetron, ondansetron, phenol-menthol LABS Recent Labs [...] kg (164 lb 7.4 oz) INTAKE/OUTPUT Date 06/1900 - 12/31/13 0712/31/13 07 - 01/01/14 0700 Shift 9462-0104 24 Hour Total 8262-8567 9773-2517 24 Hour Total I N T A [...] tion. Electronically signed by Steven Dyer MD, [facility] DATE/TIME: 12/31/2013 13:21 Tonia Patel LI [facility] - 12/31/2013 9:43 AM PDTDrs. Order received: Met with pt who lives with in [place]. Pt states they only have stairs enteri [...] note might be different from the original. [facility] CARDIOTHORACIC SURGERY PROGRESS NOTE Pt. Name/Age/: Chaya Chan 73 y.o. 1940 Med. Record Number: [id number] Date of admission: 12/24/2013 POD # 7 Procedure CORONARY ARTERY BYPASS GRAFT - CABG X4, WITH EVH - RIGHT AND LEFT SAPHENOUS VEIN,VOGEL Surgeon Nisco Subjective: The patient is comfortable in bed. [...] cardiology. Electronically signed by: CASSIE Pandya Physician Managing Partner [employer] [place] [facility] Cardiothoracic Surgery 12/31/2013 7:01 [facility] Addendum: I have reviewed the note above, [...] signed by: Constantine Barcenas M.D. CardioThoracic Surgery [facility] 12/31/2013 11:27 Steven Nettles MD - 12/30/2013 11:48 AM PDT Cardiology progress NOTE [facility] Cardiology 12/30/2013 Rounding Physician: ABBY Rowland Patient Name: Chaya Chan : 1940 Medical Record: [id number] Hospital Day: Hospital Day: 7 Code Status: Full Code Primary Hospital Problem: Coronary atherosclerosis of unspecified type of vessel, yavapai-apache or graft ASSESSMENT AND PLAN CORONARY ARTERY [...] Net -5110 ml Date 12/29/131900 - 12/30/13 0712/30/13 07 - 12/31/13 0700 Shift 3144-3883 24 Hour Total 5944-8755 0253-9580 24 Hour Total I N T A [...] acetaminophen, bisacodyl, diphenhydrAMINE, diphenhydrAMINE, diphenhydramine, HYDROcodone-acetaminophen, HYDROcodone-acetaminophen, xmdtipdf-xmsaquodg-t acitracin, ondansetron, ondansetron, phenol-menthol PHYSICAL EXAMINATION: GENERAL: Pleasant, awake, alert, in NAD NECK: Supple. indeterminate JVD CHEST: Good inspiratory effort with no crackles, ronchi, or wheezes. CARDIAC: Irregular rate and rhythm, normal S1, S2, tachy ABDOMEN: Soft, non tender, BT present EXTREMITIES: No clubbing, cyanosis, or edema. NEUROLOGIC: Non-focal. SKIN: no rash or skin breakdown MUSCULOSKELETAL: normal ambulation DIAGNOSTICS: Labs: Lab 12/30/13 0152 12/29/1342712/28/1320912/27/13 035 WBC -- 8.4 9.0 9.4 HGB 7.9* 6.8* 7.0* -- HCT 23.1* 20.3* 20.1* -- Lab 12/29/13 04212/28/1320912/27/13 035 NA 129* 127* 130* K 3.9 4.2 [...] signed by: ABBY Rowland, DATE/TIME: 12/30/2013 11:[address] [facility] CARDIOLOGY Patient was personally examined, chart reviewed [...] cyanosis. Electronically signed by Steven Dyer MD, [facility] DATE/TIME: 12/30/2013 14:13 Constantine Almonte MD - 12/30/2013 7:10 AM PDT [facility] Constantine Barcenas MD PATIENT NAME: Chaya Chan : 1940: AGE: 73 y.o. ADMISSION DATE: 12/24/2013 DAILY PROGRESS NOTE 12/30/2013 6 Days Post-Op Procedure: Procedure(s) with comments: CORONARY ARTERY BYPASS GRAFT - CABG X4, WITH EVH - RIGHT AND LEFT SAPHENOUS VEIN,VOGEL Surgeon(s): MD Brandon Amaya PA Torrey A Vail, PA ASSESSMENT: [place] weak and listless yesterday. Agreed and received [...] IV INFUSIONS: SUBJECTIVE: General: alert and oriented [place] weak and listless yesterday, only walked "a [...] Min: 1 Max: 2 12/28 1901 - 12/30 0700 In: 1170 [P.O.:920] Out: 6751 [Urine:6750] [...] signed by: Constantine Barcenas M.D. CardioThoracic Surgery [facility] 12/30/2013, 7:10 [...] RN - 5:15 PM PDTT/c to Charlie Lopezler PAC. Pt w/ increased sob and decreased activity [...] Not in arm or jaw. T/c to [facility]. Ordered EKG. Vitals as documented. Pt in afib rate in 120's. Color good. No diaphoresis. Blayne Montaño MD - 12/29/2013 9:38 AM PDTFormatting of this note mi ght be different from the original. Cardiology progress NOTE [facility] 12/29/2013 Rounding Physician: Blayne Alonso MD Patient Name: Chaya Chan : 1940 Medical Record: [id number] Hospital Day: Hospital Day: 6 Code Status: Full Code Primary Hospital Problem: Coronary atherosclerosis of unspecified type of vessel, yavapai-apache or graft ASSESSMENT AND PLAN CORONARY ARTERY [...] Date 12/28/13 190 - 12/29/13 0700 12/29/13 07 - 12/30/13 0700 Shift 7321-0989 24 Hour Total 0255-3785 8907-5260 24 Hour Total I N T A [...] Q12H vitamin C 250 mg Oral BID acetaminophen, acetaminophen, acetaminophen, bisacodyl, diphenhydrAMINE, diphenhydrAMINE, diphenhydramine, HYDROcodone-acetaminophen, HYDROcodone-acetaminophen, walhtlsq-prcfcygpn-r acitracin, ondansetron, ondansetron, phenol-menthol PHYSICAL EXAMINATION: GENERAL: pale looking, awake, alert, in NAD NECK: Supple. indeterminate JVD CHEST: Good inspiratory effort, BCTA CARDIAC: Regular rate and rhythm, normal S1, S2, ABDOMEN: Soft, non tender, BT present EXTREMITIES: No clubbing, cyanosis, or edema. NEUROLOGIC: Non-focal. SKIN: Left SC Right groin MUSCULOSKELETAL: normal ambulation DIAGNOSTICS: Labs: Lab 12/29/1342712/28/1320912/27/13 0352 WBC 8.4 9.0 9.4 HGB 6.8* 7.0* 7.5* HCT 20.3* 20.1* 22.0* Lab 12/29/1342712/28/130 12/27/13 0352 NA 129* 127* 130* K [...] by: Blayne Alonso MD, DATE/TIME: 12/29/2013 9:[address] [facility] CARDIOLOGY Edi Garrido MD - 12/29/2013 9:17 AM PDT [facility] CARDIOTHORACIC SURGERY PROGRESS NOTE Pt. Name/Age/: Chaya Chan 73 y.o. 1940 Med. Record Number: [id number] Date of admission: 12/24/2013 Procedure Coronary artery [...] days Electronically signed by: CASSIE Thomas Physician Managing Partner [employer] [place] [facility] Cardiothoracic Surgery 12/29/2013 9:17 [facility] Patient does not want transfusion. There is no clinical indication. Home soon Balyne Montaño MD - 12/28/2013 12:06 PM PDTFormatting of this note might be different from the origin al. Cardiology progress NOTE [facility] 12/28/2013 Rounding Physician: ABBY Rowland Patient Name: Chaya Chan : 1940 Medical Record: [id number] Hospital Day: Hospital Day: 5 Code Status: Full Code Primary Hospital Problem: Coronary atherosclerosis of unspecified type of vessel, yavapai-apache or graft ASSESSMENT AND PLAN CORONARY ARTERY [...] -3045 ml Date 12/27/13 1901 - 12/28/13 0700 12/28/13 0701 - 12/29/13 0700 Shift 2173-4612 24 Hour Total 5662-8966 5195-0365 24 Hour Total I N T A [...] acetaminophen, bisacodyl, diphenhydrAMINE, diphenhydrAMINE, diphenhydramine, HYDROcodone-acetaminophen, HYDROcodone-acetaminophen, igvhtbix-dqzondbzx-i acitracin, ondansetron, ondansetron, phenol-menthol PHYSICAL EXAMINATION: GENERAL: pale looking, awake, alert, in NAD NECK: Supple. indeterminate JVD CHEST: Good inspiratory effort with a few crackles at bases CARDIAC: Regular rate and rhythm, normal S1, S2, ABDOMEN: Soft, non tender, BT present EXTREMITIES: No clubbing, cyanosis, or edema. NEUROLOGIC: Non-focal. SKIN: Left SC Right groin MUSCULOSKELETAL: normal ambulation DIAGNOSTICS: Labs: Lab 12/28/13 0210 12/27/13 0352 12/25/13 0705 12/25/13 0346 WBC 9.0 9.4 -- 11.6* HGB 7.0* 7.5* 8.2* -- HCT 20.1* 22.0* -- 24.3* Lab 12/28/13 0210 12/27/13 0352 12/25/13 0705 12/25/13 0341 NA 127* [...] signed by: ABBY Rowland, DATE/TIME: 12/28/2013 12:[address] [facility] CARDIOLOGY Addendum: I have seen and examined [...] tranfusion - ef stable. Blayne Alonso MD [facility] Cardiology Edi Garrido MD - 12/28/2013 10:11 [...] Coronary atherosclerosis of unspecified type of vessel, yavapai-apache or graft CHIEF COMPLAINT: "Better" today - [...] one this AM lasting around 2-3 hours. Racquel daley on metoprolol 75 BID and loaded with [...] acetaminophen, bisacodyl, diphenhydrAMINE, diphenhydrAMINE, diphenhydramine, HYDROcodone-acetaminophen, HYDROcodone-acetaminophen, qxyqqvua-akqlzofhr-t acitracin, ondansetron, ondansetron, phenol-menthol IMAGING: No results [...] Date 12/26/131900 - 12/27/13 0712/27/13700 - 12/28/13 07 Shift 2742-7025 24 Hour Total 1608-1754 1512-2452 24 Hour Total I N T A K E P.O. 240 1440 240 240 P.O. 240 1320 240 240 Free Water Intake (mL) 120 Shift Total (mL/kg) 240 (3.3) 1440 (19.7) 240 (3.3) 240 (3.3) O U T P U T Urine (mL/kg/hr) 500 (0.6) 900 (0.5) 1100 1100 Shift Total (mL/kg) 500 (6.8) 900 (12.3) 1100 (15) 1100 (15) NET -260 540 -860 -860 Weight (kg) 73.1 73.1 73.1 73.1 73.1 [...] anticoagulation 2/2 significant anemia. Blayne Alonso MD [facility] Cardiology isronaldo, Sj Campbell MD - 0 12/27/2013 7:10 AM PDT [facility] CARDIOTHORACIC SURGERY PROGRESS NOTE Pt. Name/Age/: Chaya Chan 73 y.o. 1940 Med. Record Number: [id number] Date of admission: 12/24/2013 POD # 3 [...] PT. Electronically signed by: CASSIE Pandya Physician Managing Partner [employer] [place] [facility] Cardiothoracic Surgery 12/27/2013 7:11 [facility] Cheerful and up in chair. Back in NSR. Off oxygen. Hopefully home tomorrow or Monday. Sj Viera uhs, Henrique Hsieh D - 12/26/2013 12:19 PM PDT PATIENT NAME: Chaya Chan : 1940: AGE: 73 y.o. ADMISSION DATE: 12/24/2013 Hospital Day: Hospital Day: 3 Code Status: Full Code Asad Ge MD CARDIOLOGY DAILY PROGRESS NOTE [facility]IMARY [facility] PROBLEM: Coronary atherosclerosis of unspecified type of vessel, yavapai-apache or graft CHIEF COMPLAINT: up in chair, [...] diphenhydrAMIN E, diphenhydrAMINE, diphenhydramine, HYDROcodone-acetaminophen, HYDROcodone-acetaminophen, n bzegifm-nyvwmoqne-wgtlffsvpn, ondansetron, ondansetron, phenol-menthol LABS Recent Labs Basename [...] 7.4 oz) INTAKE/OUTPUT Date 12/25/131900 - 12/26/13 0700 12/26/13700 - 12/27/13 07 Shift 1261-3831 24 Hour Total 4422-6074 4572-8780 24 Hour Total I N T A [...] Ge MD 12/26/2013 17:55 Sonia Schultz AR TYPING SECRETARY - 12/26/2013 10:33 AM PDT [facility] Blood Sugar Management Progress Note Pt. Name/Age/: Chaya Chan 73 y.o. 1940 Date of admission: 12/24/2013 Hospitalized for Coronary atherosclerosis of unspecified type of vessel, yavapai-apache or graft Admitting Physician: Sj Viera MD [...] rash Selected Labs/Studies: Lab 12/25/13 0705 12/25/13 03412/25/133512/24/13221912/24/136 12/23/13 1358 WBC -- 11.6* 13.0* -- 7.3 6.6 HGB 8.2* 8.1* 8.7* 9.4* -- -- HCT -- 24.3* 26.6* -- 26.4* 35.7 PLT -- 123* 134* -- 98* 160 Lab 12/25/13 0705 12/25/13 03412/25/133512/24/13221912/24/13 2105 12/24/13 1927 04/29 1925 12/24/13 1833 12/24/13 1748 12/24/13 1411 12/23/13 1358 [...] by: ABBY Dean 12/26/2013 10:41 Diabetes team, [facility] Cristino Cade PA - 12/26/2013 7:27 AM PDTFormatting of this note might be different from the orig inal. [facility] Pt. Name/Age/: Chaya Chan 73 y.o. 1940 Med. Record Number: [id number] Date of admission: 12/24/2013 POD #2 Procedure: [...] lung is fairly clear. IMPRESSION: 1. Right marketing pr intern al jugular line with tip in [...] signed by: Cristino Monsivais PA-C Cardiothoracic Surgery [facility] [address], [address] [place] [address] 12/26/2013 7:27 [facility] Lottie Boone i, ARNP - 12/25/2013 4:17 PM PDTFormatting of this note might be different from the origi nal. PATIENT NAME: Chaya Chan : 1940: AGE: 73 y.o. ADMISSION DATE: 12/24/2013 Hospital Day: Hospital Day: 2 Code Status: Full Code ABBY Farnsworth CARDIOLOGY DAILY PROGRESS NOTE [facility] PROBLEM: Coronary atherosclerosis of unspecified type of vessel, yavapai-apache or graft CHIEF COMPLAINT: "Back hurts", "tired". [...] diphenhydrAMIN E, diphenhydrAMINE, diphenhydramine, HYDROcodone-acetaminophen, HYDROcodone-acetaminophen, n gsfpmrd-uvswlnfji-sepufzuekp, ondansetron, ondansetron, phenol-menthol IMAGING: Xr Chest Ap [...] lung is fairly clear. IMPRESSION: 1. Right marketing pr intern al jugular line with tip in [...] lb 7.4 oz) INTAKE/OUTPUT Date 12/24/131900 - 12/25/1369912/25/13700 - 12/26/13 07 Shift 24 Hour Total 24 Hour Total I [...] Non-focal. Signed by: ABBY Farnsworth 12/25/2013, 16:18 john, Sj Campbell MD - 12/25/2013 10:30 AM PDT PATIENT [...] LACTIC ACID, ARTERIAL, SURGERY Collection Time 12/24/13 174 Component Value Range Lactic Acid, Arterial 1.0 [...] 50% SIMV10 550 PS8 P5 Additional Information GRG139 ETCO2=31 GLUCOSE, RESPIRATORY Collection Time 12/24/131924 Component [...] 1.5 % L/min of O2 40% PSV 10/5 OX100% RR17 GLUCOSE, RESPIRATORY Collection Time 12/24/132219 [...] 150 - 400 K/uL POTASSIUM Collection Time 12/25/1335 Component Value Range K 3.6 3.5 - [...] 400 K/uL BLOOD GAS, ARTERIAL Collection Time 12/25/13 07 Component Value Range pH Art 7.36 (*) [...] NC OX 100% GLUCOSE, RESPIRATORY Collection Time 12/25/13 07 Component Value Range GLUCOSE 141 (*) 65 - 99 mg/dL CALCIUM, IONIZED, RESPIRATORY Collection Time 12/25/13 07 Component Value Range Ionized Calcium 4.85 4.75 - 5.30 mg/dL Calcium, pH Normalized 4.74 (*) 4.75 - 5.30 mg/dL POTASSIUM, WHOLE BLOOD Collection Time 12/25/13 0705 Component Value Range K 4.6 3.5 - [...] CABG OK for floor transfer Prior non MS in circ territory last week 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 Signed by: Sj Viera MD 12/25/2013, 10:30 [place]a, BEN Richter T - 12/24/2013 10:40 PM [...] referral | Outpatient | Routin | A-fib ([facility]) | Ordered: 01/02/2014 | | to Anticoagulation [...] | | | | | PDT | yavapai-apache coronary | | | | | | [...] +---+ + documented in this encounter Results Emelyime INR (01/02/2014 3:42 AM PDT) + + [...] + + | [facility] | [address] | [place] [address] | | | [facility] | | | | [...] + + | [facility] | [address] | [place] [address] | | | [facility] | | | | | LABORATORY | | | | + + + + + Emelyime INR (01/01/2014 10:38 AM PDT) + + [...] + + | [facility] | [address] | [place] [address] | | | [facility] | | | | | LABORATORY [...] | [facility] | | Interval: msHeartrate: bpmP Cook: degQRS Cook: degT Wave Cook: | | | degI: 40 Cook: degT: 40 Cook: degT: 40 Cook: degST Cook: | | | degSeverity: - ABNORMAL ECG -INTERP: SINUS RHYTHMINTERP: LVH | | | WITH SECONDARY REPOLARIZATION ABNORMALITY | | |P Cook: deg | | |QRS Cook: deg | | |T Wave Cook: deg | | |I: 40 Cook: deg | | |T: 40 Cook: deg | | |T: 40 Cook: deg | | |ST Cook: deg | | |Severity: - ABNORMAL ECG - | | |INTERP: SINUS RHYTHM | | |INTERP: LVH WITH SECONDARY REPOLARIZATION ABNORMALITY | | + + + + + | Transcriptions | + + | AletaBasil - 12/31/2013 12:00 AM PDT | + + + + + + + | Performing | Address | City/State/Zipcode | Phone Number | | Organization | | | | + + + + + | [facility] | [address] | [place] [address] | [phone] | + + + + + CBC [...] + + | [facility] | [address] | [place] [address] | | | [facility] | | | | [...] + + + | Glucose | 86Comment: Algerian | 65 - 99 mg/dL | [facility] | | | | Diabetes [...] + + | [facility] | [address] | [place] [address] | | | [facility] CENTER | | | | | LABORATORY [...] | TRACEMASTER | | Interval: msHeartrate: bpmP Cook: degQRS Cook: degT Wave Cook: | | | degI: 40 Cook: degT: 40 Cook: degT: 40 Cook: degST Cook: | | | degSeverity: - DEFECTIVE ECG -INTERP: ALL 12 LEADS ARE MISSING | | |Heartrate: bpm | | |P Cook: deg | | |QRS Cook: deg | | |T Wave Cook: deg | | |I: 40 Cook: deg | | |T: 40 Cook: deg | | |T: 40 Cook: deg | | |ST Cook: deg | | |Severity: - DEFECTIVE ECG - | | |INTERP: ALL 12 LEADS ARE MISSING | | + + + + + | Transcriptions | + + | [place] - 12/30/2013 12:00 AM PDT | + + + + + + + | Performing | Address | City/State/Zipcode | Phone Number | | Organization | | | | + + + + + | [facility] | [address] | [place] [address] | [phone] | + + + + + Hemoglobin [...] + | MONIKA MELCHOR | [address] | [place] [address] | | | [facility] | | | | [...] | TRACEMASTER | | Interval: msHeartrate: bpmP Cook: degQRS Cook: degT Wave Cook: | | | degI: 40 Cook: degT: 40 Cook: degT: 40 Cook: degST Cook: | | | degSeverity: - BORDERLINE ECG -INTERP: SINUS RHYTHMINTERP: LEFT | | | AXIS DEVIATIONINTERP: BORDERLINE T ABNORMALITIES, LATERAL LEADS | | |P Cook: deg | | |QRS Cook: deg | | |T Wave Cook: deg | | |I: 40 Cook: deg | | |T: 40 Cook: deg | | |T: 40 Cook: deg | | |ST Cook: deg | | |Severity: - BORDERLINE ECG - | | |INTERP: SINUS RHYTHM | | |INTERP: LEFT AXIS DEVIATION | | |INTERP: BORDERLINE T ABNORMALITIES, LATERAL LEADS | | + + + + + | Transcriptions | + + | Aleta Basil - 12/29/2013 12:00 AM PDT | + + + + + + + | Performing | Address | City/State/Zipcode | Phone Number | | Organization | | | | + + + + + | [facility] | [address] | [place] [address] | [phone] | + + + + + PRODUCT: RBC (12/29/2013 7:49 PM PDT) + + + + + + | Component | Value | Ref Range | Performed | Pathologist | | | | | At | Signature | + + + + + + | Product | RBC | | REFERENCE | | | Code | | | [facility] | | | | | | [facility] | | [facility] | [facility] | [facility] | | | | [facility] | | + + + + + + | UNIT ID | [id number] | | REFERENCE | | | | | | [facility] | | | | | | [facility] | [facility] | [facility] | [facility] | | | | | [facility] | | + + + + + + | UNIT ABO | B | | REFERENCE | | | | | | [facility] | | | | | | [facility] | [facility] | | | | | [facility] | | | | | | [facility] | | + + + + + + | UNIT RH | NEG | | REFERENCE | | | | | | [facility] | | | | | | [facility] | [facility] | [facility] | | | [facility] | | | | | [facility] | | + + + + + + | Unit Status | IS | | REFERENCE | | | | | | [facility] | | | | | | [facility] | [facility] | | | | | [facility] | | | | | [facility] | | + + + + + + + + | Specimen | + + | | + + + + + | Narrative | Performed At | + + + | Specimen Expiration Date: [id number] | REFERENCE LAB | | | [facility] | + + + + + + + + | Performing | Address | City/State/Zipcode | Phone Number | | Organization | | | | + + + + + | REFERENCE LAB | [address] | [place] [address] | [phone] | | [facility] | | | | | [facility] [...] | | | | | | [facility] | | | | | | [facility] | [facility] | | | | | [facility] | | | | | | [facility] | | + + + + + + | Rh Type | Negative | | REFERENCE | | | | | | [facility] | | | | | | [facility] | | | | | [facility] | | | | | | [facility] | | + + + + + + | Antibody | NegativeComment: Patient | | REFERENCE | | | Screen | is remote crossmatch | | [facility] | | | | eligible | | [...] + + + | Specimen Expiration Date: [id number] | REFERENCE LAB | | | [facility] | + + + + + + + + | Performing | Address | City/State/Zipcode | Phone Number | | Organization | | | | + + + + + | REFERENCE LAB | [address] | [place] [address] | [phone] | | [facility] | | | | | [facility] [...] + + | MONIKA MELCHOR | [address] | [place] [address] | | | [facility] | | | | | LABORATORY [...] | TRACEMASTER | | Interval: msHeartrate: bpmP Cook: degQRS Cook: degT Wave Cook: | | | degI: 40 Cook: degT: 40 Cook: degT: 40 Cook: degST Cook: | | | degSeverity: - ABNORMAL ECG -INTERP: SINUS RHYTHMINTERP: LVH | | | WITH SECONDARY REPOLARIZATION ABNORMALITYINTERP: LEFT ATRIAL | | | ABNORMALITY | | |QRS Cook: deg | | |T Wave Cook: deg | | |I: 40 Cook: deg | | |T: 40 Cook: deg | | |T: 40 Cook: deg | | |ST Cook: deg | | |Severity: - ABNORMAL ECG [...] + + | [facility] | [address] | [place] [address] | [phone] | + + + + + ECG 12 lead (12/29/2013 10:59 AM PDT) + + | Specimen | + + | | + + + + + | Narrative | Performed At | + + + | RR Interval: | [facility] | | msP-R Interval: msQRSD Interval: msQT Interval: msQTC | TRACEMASTER | | Interval: msHeartrate: bpmP Cook: degQRS Cook: degT Wave Cook: | | | degI: 40 Cook: degT: 40 Cook: degT: 40 Cook: degST Cook: | | | degSeverity: - ABNORMAL ECG -INTERP: SINUS RHYTHMINTERP: | | | NONSPECIFIC T ABNORMALITIES, LATERAL LEADS | | |P Cook: deg | | |QRS Cook: deg | | |T Wave Cook: deg | | |I: 40 Cook: deg | | |T: 40 Cook: deg | | |T: 40 Cook: deg | | |ST Cook: deg | | |Severity: - ABNORMAL ECG - | | |INTERP: SINUS RHYTHM | | |INTERP: NONSPECIFIC T ABNORMALITIES, LATERAL LEADS | | + + + + + | Transcriptions | + + | [place] - 12/29/2013 12:00 AM PDT | + + + + + + + | Performing | Address | City/State/Zipcode | Phone Number | | Organization | | | | + + + + + | [facility] | [address] | [place] [address] | [phone] | + + + + + Basic [...] + + + | Glucose | 93Comment: Algerian | 65 - 99 mg/dL | [facility] [...] + | BLADEJOHNRosio MELCHOR | [address] | [place] [address] | | | [facility] | | | | | LABORATORY [...] + + | MONIKA MELCHOR | [address] | [place] [address] | | | [facility] | | | | | LABORATORY [...] | TRACEMASTER | | Interval: msHeartrate: bpmP Cook: degQRS Cook: degT Wave Cook: | | | degI: 40 Cook: degT: 40 Cook: degT: 40 Cook: degST Cook: | | | degSeverity: - ABNORMAL ECG -INTERP: SINUS RHYTHMINTERP: LVH | | | WITH SECONDARY REPOLARIZATION ABNORMALITY | | |P Cook: deg | | |QRS Cook: deg | | |T Wave Cook: deg | | |I: 40 Cook: deg | | |T: 40 Cook: deg | | |T: 40 Cook: deg | | |ST Cook: deg | | |Severity: - ABNORMAL ECG [...] + + | [facility] | [address] | [place] [address] | [phone] | + + + + + ECG 12 lead (12/28/2013 11:09 AM PDT) + + | Specimen | + + | | + + + + + | Narrative | Performed At | + + + | RR Interval: | [facility] | | msP-R Interval: msQRSD Interval: msQT Interval: msQTC | TRACEMASTER | | Interval: msHeartrate: bpmP Cook: degQRS Cook: degT Wave Cook: | | | degI: 40 Cook: degT: 40 Cook: degT: 40 Cook: degST Cook: | | | degSeverity: - ABNORMAL ECG -INTERP: SINUS RHYTHMINTERP: | | | NONSPECIFIC INTRAVENTRICULAR CONDUCTION DELAYINTERP: LVH WITH | | | SECONDARY REPOLARIZATION ABNORMALITY | | |QRS Cook: deg | | |T Wave Cook: deg | | |I: 40 Cook: deg | | |T: 40 Cook: deg | | |T: 40 Cook: deg | | |ST Cook: deg | | |Severity: - ABNORMAL ECG [...] + + | [facility] | [address] | [place] [address] | [phone] | + + + + + ECG 12 lead (12/28/2013 5:45 AM PDT) + + | Specimen | + + | | + + + + + | Narrative | Performed At | + + + | RR Interval: | [facility] | | msP-R Interval: msQRSD Interval: msQT Interval: msQTC | TRACEMASTER | | Interval: msHeartrate: bpmP Cook: degQRS Cook: degT Wave Cook: | | | degI: 40 Cook: degT: 40 Cook: degT: 40 Cook: degST Cook: | | | degSeverity: - ABNORMAL ECG -INTERP: ATRIAL FIBRILLATION, V-RATE | | | 81-146INTERP: LEFT AXIS DEVIATIONINTERP: LVH WITH SECONDARY | | | REPOLARIZATION ABNORMALITY | | |QRS Cook: deg | | |T Wave Cook: deg | | |I: 40 Cook: deg | | |T: 40 Cook: deg | | |T: 40 Cook: deg | | |ST Cook: deg | | |Severity: - ABNORMAL ECG [...] + | [facility] | [address] | [place] [address] | [phone] | + + + + + CBC [...] + | MONIKA MELCHOR | [address] | [place] [address] | | | [facility] | | | | | LABORATORY [...] + + | Glucose | 116 (H)Comment: Algerian | 65 - 99 mg/dL | [facility] [...] + + | MONIKA SACRED | [address] | [place] [address] | | | [facility] | | | | | LABORATORY [...] | TRACEMASTER | | Interval: msHeartrate: bpmP Cook: degQRS Cook: degT Wave Cook: | | | degI: 40 Cook: degT: 40 Cook: degT: 40 Cook: degST Cook: | | | degSeverity: - ABNORMAL ECG -INTERP: SINUS RHYTHMINTERP: LEFT | | | AXIS DEVIATIONINTERP: LEFT VENTRICULAR HYPERTROPHY | | |P Cook: deg | | |QRS Cook: deg | | |T Wave Cook: deg | | |I: 40 Cook: deg | | |T: 40 Cook: deg | | |T: 40 Cook: deg | | |ST Cook: deg | | |Severity: - ABNORMAL ECG [...] + + | BASIL R[facility]OS | [address] | [place] [address] | [phone] | + + + + + ECG 12 lead (12/27/2013 7:56 AM PDT) + + | Specimen | + + | | + + + + + | Narrative | Performed At | + + + | RR Interval: | [facility] | | msP-R Interval: msQRSD Interval: msQT Interval: msQTC | TRACEMASTER | | Interval: msHeartrate: bpmP Cook: degQRS Cook: degT Wave Cook: | | | degI: 40 Cook: degT: 40 Cook: degT: 40 Cook: degST Cook: | | | degSeverity: - ABNORMAL ECG -INTERP: ATRIAL FIBRILLATIONINTERP: | | | LEFT AXIS DEVIATIONINTERP: LVH WITH SECONDARY REPOLARIZATION | | | ABNORMALITY | | |QRS Cook: deg | | |T Wave Cook: deg | | |I: 40 Cook: deg | | |T: 40 Cook: deg | | |T: 40 Cook: deg | | |ST Cook: deg | | |Severity: - ABNORMAL ECG [...] + | [facility]AC[facility]AST[facility] | [address] | [place] [address] | [phone] | + + + + + POC [...] + + | [facility] | [address] | [place] [address] | | | [facility] | | | | [...] + + | MONIKA MELCHOR | [address] | [place] [address] | | | [facility] | [...] 26 | 21 - 28 mmol/L | [facility] | | | [facility] | | | | | | HE[facility] | | | | | | MEDICAL | | | | | | CENTER | | | | | | LABORATORY | | + + + + + + | Glucose | 125 (H)Comment: Algerian | 65 - 99 mg/dL | [facility] | | | | Diabetes [...] + | [facility] | [address] | [place] [address] | | | [facility] | | | | | [...] + + + + + | MONIKA MELHCOR | [address] | [place] [address] | | | [facility] | | | | | LABORATORY | | | | + + + + + POC Glucose (12/26/2013 4:53 PM PDT) + +---------+ + + + | Component | Value | Ref Range | Performed | Pathologist | | | | | At | Signature | + +---------+ + + + | Glucose, | 135 (H) | 65 - 99 mg/dL | [facility] | | | POC | | | [...] + + | MONIKA SACRCAYETANO | [address] | [place] [address] | | | [facility] | [...] SACRED | [address] | [place] [address] | | | [facility] | | | | | [...] + | [facility] | [address] | [place] [address] | | | [facility] | | | | | LABORATORY [...] + | MONIKA MELCHOR | [address] | [place] [address] | | | [facility] | | | | | LABORATORY [...] + | [facility] | [address] | [place] [address] | | | [facility] | | | | | [...] SACRED | [address] | [place] [address] | | | [facility] | [...] + + | PROVIDE[facility]OHNE RUIZ | [address] | [place] [address] | | | [facility] | | | | | LABORATORY [...] + + | MONIKA MELCHOR | [address] | [place] [address] | | | [facility] | | | | [...] + | [facility] | [address] | [place] [address] | | | [facility] | [...] + | [facility] | [address] | [place] [address] | | | [facility] | | | | [...] + + | BLADEGRETCHEN RUIZ | [address] | [place] [address] | | | [facility] | | | | | LABORATORY [...] [address] | [place] [address] | | | [facility] | [...] MELCHOR | [address] | [place] [address] | | | [facility] | | | | [...] + + | PROVIDEJOHNE SACRED | [address] | [place] [address] | | | [facility] | | | | | LABORATORY [...] + + | MONIKA MELCHOR | [address] | [place] [address] | | | [facility] | | | | | [...] + | [facility] | [address] | [place] [address] | | | [facility] | [...] SACRED | [address] | [place] [address] | | | [facility] | | | | [...] + | MONIKA MELCHOR | [address] | [place] [address] | | | [facility] | | | | | LABORATORY [...] + | [facility] | [address] | [place] [address] | | | [facility] | [...] [address] | [place] [address] | | | [facility] | | | | [...] (H) | 65 - 99 mg/dL | MONIKA | | | POC | | | WINED | | | | | | HEART [...] + | PROVIDE[facility]NE SACRED | [address] | [place] [address] | | | [facility] | | | | | LABORATORY [...] + + | BLADEGRETCHEN MELCHOR | [address] | [place] [address] | | | [facility] | [...] + | [facility] | [address] | [place] [address] | | | [facility] | [...] + + | MONIKA MELCHOR | [address] | [place] [address] | | | [facility] | | | | | LABORATORY [...] + | PROVIDE[facility]NE SACRED | [address] | [place] [address] | | | [facility] | [...] + + | [facility] | [address] | [place] [address] | | | [facility] | [...] + + | MONIKA MELCHOR | [address] | [place] [address] | | | [facility] | | | | | LABORATORY [...] | TRACEMASTER | | Interval: msHeartrate: bpmP Cook: degQRS Cook: degT Wave Cook: | | | degI: 40 Cook: degT: 40 Cook: degT: 40 Cook: degST Cook: | | | degSeverity: - ABNORMAL ECG -INTERP: SINUS RHYTHMINTERP: LEFT | | | VENTRICULAR HYPERTROPHYINTERP: ANTERIOR ST ELEVATION, PROBABLY DUE | | | TO LVH | | |QRS Cook: deg | | |T Wave Cook: deg | | |I: 40 Cook: deg | | |T: 40 Cook: deg | | |T: 40 Cook: deg | | |ST Cook: deg | | |Severity: - ABNORMAL ECG [...] | + + + + + | WANH MICHOACANO | [address] | [place] [address] | [phone] | + + + + + XR Chest AP Portable (12/25/2013 4:18 AM PDT) + + | Specimen | + + | | + + + + + | Narrative | Performed At | + + + | CHEST, AP PORTABLE CLINICAL INFORMATION: Post open heart | [facility] | | with a chest [...] | Mauricio, Rad Results In - 12/25/2013 4:45 AM PDT [...] + + | [facility] | [facility], [address] | [place] [address] | [phone] | | | Shyann | | | [...] + | [facility] | [address] | [place] [address] | | | [facility] | [...] + + | Glucose | 122 (H)Comment: Algerian | 65 - 99 mg/dL | [facility] | | | | [facility] | [...] + | MONIKA SACRED | [address] | [place] [address] | | | [facility] | | | | | LABORATORY [...] + + + + + | BLADEJOHNRosio RUIZ | [address] | [place] [address] | | | [facility] | [...] + | [facility] | [address] | [place] [address] | | | [facility] | [...] + | BLADEJOHNRosio MELCHOR | [address] | [place] [address] | | | [facility] | | | | | LABORATORY | | | | + + + + + POC Glucose (12/25/2013 12:29 AM PDT) + +---------+ + + + | Component | Value | Ref Range | Performed | Pathologist | | | | | At | Signature | + +---------+ + + + | Glucose, | 167 (H) | 65 - 99 mg/dL | [facility] | | | POC | | | [...] + + | MONIKA SACRCAYETANO | [address] | [place] [address] | | | [facility] | | | | [...] SACRED | [address] | [place] [address] | | | [facility] | | | | [...] + + | MONIKA MELCHOR | [address] | [place] [address] | | | [facility] | | | | | LABORATORY [...] + + | MONIKA MELCHOR | [address] | [place] [address] | | | [facility] | | | | | [...] + | [facility] | [address] | [place] [address] | | | [facility] | [...] + + | MONIKA MELCHOR | [address] | [place] [address] | | | [facility] | | | | | LABORATORY [...] | TRACEMASTER | | Interval: msHeartrate: bpmP Cook: degQRS Cook: degT Wave Cook: | | | degI: 40 Cook: degT: 40 Cook: degT: 40 Cook: degST Cook: | | | degSeverity: - ABNORMAL ECG -INTERP: SINUS RHYTHMINTERP: | | | PROBABLE LVH WITH SECONDARY REPOL ABNRM | | |P Cook: deg | | |QRS Cook: deg | | |T Wave Cook: deg | | |I: 40 Cook: deg | | |T: 40 Cook: deg | | |T: 40 Cook: deg | | |ST Cook: deg | | |Severity: - ABNORMAL ECG - | | |INTERP: SINUS RHYTHM | | |INTERP: PROBABLE LVH WITH SECONDARY REPOL ABNRM | | + + + + + | Transcriptions | + + | [facility] - 12/24/2013 12:00 AM PDT | + + + + + + + | Performing | Address | City/State/Zipcode | Phone Number | | Organization | | | | + + + + + | [facility] TRACEMAST[facility] | [address] | [place] [address] | [phone] | + + + + + Potassium [...] + + | MONIKA MELCHOR | [address] | [place] [address] | | | [facility] | | | | | LABORATORY [...] [address] | [place] [address] | | | [facility] | | | | [...] + | MONIKA MELCHOR | [address] | [place] [address] | | | [facility] | | | | | LABORATORY [...] 99 mg/dL | [facility] | | | | | | SACRED [...] + + | MONIKA MELCHOR | [address] | [place] [address] | | | [facility] | | | | [...] + + + + | Additional | [id number] | | [facility] | | | [...] + + | [facility] | [address] | [place] [address] | | | [facility] | | | | [...] + + | MONIKA MELCHOR | [address] | [place] [address] | | | [facility] | | | | | LABORATORY | | | | + + + + + XR Chest AP Portable (12/24/2013 7:11 PM PDT) + + | Specimen | + + | | + + + + + | Narrative | Performed At | + + + | CHEST CLINICAL INFORMATION: Post operative line | [place] [facility] | | placement, instrument verification. COMPARISON: 12/23/2013. [...] + + + + + | [facility] | [facility], [address] | [place] [address] | [phone] | | | Shyann | | | [...] + + | [facility] | [address] | [place] [address] | | | [facility] | [...] | HEART | | | | Dr. Kelly [place] [address] | | MEDICAL | | [...] + + | MONIKA MELCHOR | [address] | [place] [address] | | | [facility] | | | | | LABORATORY [...] + | [facility] | [address] | [place] [address] | | | [facility] | [...] + + | MONIKA MELCHOR | [address] | [place] [address] | | | [facility] | | | | [...] + | [facility] | [address] | [place] [address] | | | [facility] | [...] + + | MONIKA MELCHOR | [address] | [place] [address] | | | [facility] | | | | | LABORATORY [...] + + | MONIKA MELCHOR | [address] | [place] [address] | | | [facility] | | | | | LABORATORY [...] + | [facility] | [address] | [place] [address] | | | [facility] | [...] + + | MONIKA MELCHOR | [address] | [place] [address] | | | [facility] | | | | | LABORATORY [...] + + | MONIKA MELCHOR | [address] | [place] [address] | | | [facility] | | | | [...] + + + + + | MNOIKA MELCHOR | [address] | [place] [address] | | | [facility] | | | | [...] + + | MONIKA MELCHOR | [address] | [place] [address] | | | [facility] | | | | | LABORATORY [...] | | HEART | | | | [facility] | | MEDICAL | | | | [...] + + | MONIKA MELCHOR | [address] | [place] [address] | | | [facility] | | | | | [...] + | MONIKA MELCHOR | [address] | [place] [address] | | | [facility] | | | | | LABORATORY [...] + + | [facility] | [address] | [place] [address] | | | [facility] | | | | | LABORATORY [...] | 7.41 | 7.37 - 7.47 | PROVID[facility] | | | Arterial | Comment: | | RUIZ | | | | Results delivered to: | | HEART | | | | [facility] [address] | | MEDICAL | | [...] + | [facility] | [address] | [place] [address] | | | HE[facility] | | | | | [...] SACRED | [address] | [place] [address] | | | [facility] | | | | | LABORATORY [...] | | | Comment: | g/dL | SACRCAYETANO | | | | Results delivered to: | | HEART | | | | [place], [place] [address] | | MEDICAL | | [...] + + | BLADEGRETCHEN MELCHOR | [address] | [place] [address] | | | [facility] | | | | [...] + + | [facility] | [address] | [place] [address] | | | [facility] | [...] + + | MONIKA MELCHOR | [address] | [place] [address] | | | [facility] | | | | | LABORATORY [...] + | [facility] | [address] | [place] [address] | | | [facility] | | | | | LABORATORY | | | | + + + + + documented in this encounter Visit Diagnoses + + | Diagnosis | + + | Coronary artery disease - Primary Coronary atherosclerosis of unspecified type of | | vessel, [place] or graft | + + | Stress hyperglycemia Other abnormal blood chemistry | + + | Coronary atherosclerosis of unspecified type of vessel, [place] or graft | + + | Essential hypertension, benign | + + | NSTEMI (non-ST elevated myocardial infarction) (HCC) Acute myocardial infarction, | | subendocardial infarction, episode of care unspecified | + + | A-fib (HCC) Atrial fibrillation | + + | Acute blood loss anemia Acute posthemorrhagic anemia | + + | Hyponatremia Hyposmolality and/or hyponatremia | + + | Acute systolic heart failure (HCC) Acute systolic heart failure | + + | Benign essential hypertension Essential hypertension, benign | + + | Hyperlipidemia Other and unspecified hyperlipidemia | + + | Paroxysmal atrial fibrillation (HCC) Atrial fibrillation | + + | Postoperative anemia due to acute blood loss Acute posthemorrhagic anemia | + + | Chronic diastolic CHF (congestive heart failure), NYHA class 2 (HCC) | + + documented in this encounter Administered Medications + +--------+ +--------+------+------+ | Medication Order | MAR | Action | Dose | Rate | Site | | | Action | Date | | | | + +--------+ +--------+------+------+ | acetaminophen (TYLENOL) tablet | Given | 12/31/19 | 650 mg | | | | 650 mg 650 mg, Oral, EVERY 4 | | 14 2:48 | | | | | HOURS PRN, Pain, or fever >= 38.3 | | PM PDT | | | | | C (101.5 F), Starting Mon | | | | | | | 12/24/13 at 1913, If ordered, may | | | | | | | use liquid for patients unable to | | | | | | | swallow tablets., | | | | | | + +--------+ +--------+------+------+ +-------+ +--------+---+---+ | Given | 12/30/19 | 650 mg | | | | | 14 12:41 | | | | | | PM PDT | | | | +-------+ +--------+---+---+ | Given | 12/30/19 | 650 mg | | | | | 14 6:15 | | | | | | AM PDT | | | | +-------+ +--------+---+---+ +---+---+ | | | +---+---+ + +---------+ +------+-------+---+ | albumin 5% IVPB 25 g 25 g, | New Bag | 12/25/19 | 25 g | 500 | | | Intravenous, Administer over 1 | | 14 11:08 | | mL/hr | | | Hours, 4 TIMES DAILY PRN, if | | PM PDT | | | | | clinically indicated to maintain | | | | | | | hemodynamic protocol parameters., | | | | | | | Starting 12/24/13 at 1913, | | | | | | | Post-op/Phase II | | | | | | + +---------+ +------+-------+---+ +---+---+ | | | +---+---+ + +-------+ +--------+---+---+ | ascorbic acid (VITAMIN C) | Given | 12/27/19 | 500 mg | | | | tablet 500 mg 500 mg, Oral, | | 14 8:01 | | | | | DAILY, First dose on Mon12/26/13 | | AM PDT | | | | | at 0900 | | | | | | + +-------+ +--------+---+---+ +---+---+ | | | +---+---+ + +-------+ +-------+---+---+ | aspirin EC tablet 81 mg 81 mg, | Given | 01/03/20 | 81 mg | | | | Oral, DAILY, First dose on Mon | | 14 9:29 | | | | | 12/24/13 at 1930, Do not cut or | | AM PDT | | | | | crush., | | | | | | + +-------+ +-------+---+---+ +-------+ +-------+---+---+ | Given | 01/01/20 | 81 mg | | | | | 14 8:35 | | | | | | AM PDT | | | | +-------+ +-------+---+---+ | Given | 12/31/19 | 81 mg | | | | | 14 9:05 | | | | | | AM PDT | | | | +-------+ +-------+---+---+ +---+---+ | | | +---+---+ + +-------+ +-------+---+---+ | atorvaSTATin (LIPITOR) tablet | Given | 01/03/20 | 40 mg | | | | 40 mg 40 mg, Oral, DAILY, First | | 14 9:30 | | | | | dose on Mon12/24/13 at 1930 | | AM PDT | | | | + +-------+ +-------+---+---+ +-------+ +-------+---+---+ | Given | 01/02/20 | 40 mg | | | | | 14 11:19 | | | | | | AM PDT | | | | +-------+ +-------+---+---+ | Given | 01/01/20 | 40 mg | | | | | 14 8:35 | | | | | | AM PDT | | | | +-------+ +-------+---+---+ +---+---+ | | | +---+---+ + +-------+ +-------+---+---+ | bisacodyl (DULCOLAX) | Given | 01/01/20 | 10 mg | | | | suppository 10 mg 10 mg, Rectal, | | 14 11:27 | | | | | DAILY PRN, Constipation, | | AM PDT | | | | | Starting 12/25/13 at 0000, If | | | | | | | no BM in prior 24 hours. Hold | | | | | | | for loose stools., | | | | | | + +-------+ +-------+---+---+ +-------+ +-------+---+---+ | Given | 12/29/19 | 10 mg | | | | | 14 8:01 | | | | | | PM PDT | | | | +-------+ +-------+---+---+ | Given | 12/28/19 | 10 mg | | | | | 14 2:09 | | | | | | PM PDT | | | | +-------+ +-------+---+---+ +---+---+ | | | +---+---+ + +---------+ +-----+---+---+ | cefazolin in NS (ANCEF) IVPB 2 | New Bag | 12/26/19 | 2 g | | | | g 2 g, Intravenous, Administer | | 14 9:58 | | | | | over 30 Minutes, EVERY 8 HOURS | | AM PDT | | | | | INTERVAL, First dose on Mon | | | | | | | 12/25/13 at 0200, For 2 doses, | | | | | | | Start 8 hours after previous | | | | | | | dose. Last dose to be given | | | | | | | within 24 hours of surgery end | | | | | | | time., Post-op/Phase II | | | | | | + +---------+ +-----+---+---+ +---------+ +-----+---+---+ | New Bag | 12/26/19 | 2 g | | | | | 14 1:44 | | | | | | AM PDT | | | | +---------+ +-----+---+---+ +---+---+ | | | +---+---+ + + + +---+ +---+ | dextrose 5% and sodium chloride | Rate/Dos | 12/26/19 | | 50 mL/hr | | | 0.45% with KCl 20 mEq/L (D5 2 | e Verify | 14 9:00 | | | | | NS + KCL 20) infusion at 50 | | AM PDT | | | | | mL/hr, Intravenous, CONTINUOUS, | | | | | | | Starting 12/24/13 at 1930, | | | | | | | Post-op/Phase II | | | | | | + + + +---+ +---+ + + +---+ +---+ | Rate/Dose Verify | 12/26/19 | | 50 mL/hr | | | | 14 7:48 | | | | | | AM PDT | | | | + + +---+ +---+ | Rate/Dose Verify | 12/26/19 | | 50 mL/hr | | | | 14 7:00 | | | | | | AM PDT | | | | + + +---+ +---+ +---+---+ | | | +---+---+ + +-------+ +---------+---+---+ | digoxin (LANOXIN) 250 mcg/mL | Given | 01/02/20 | 0.25 mg | | | | injection 0.25 mg 0.25 mg, | | 14 8:45 | | | | | Intravenous, ONCE, Mon01/01/14 at | | AM PDT | | | | | 0900, For 1 dose | | | | | | + +-------+ +---------+---+---+ +---+---+ | | | +---+---+ + +-------+ +--------+---+---+ | digoxin (LANOXIN) 250 mcg/mL | Given | 01/02/20 | 0.5 mg | | | | injection 0.5 mg 0.5 mg, | | 14 4:56 | | | | | Intravenous, ONCE, Mon01/01/14 at | | AM PDT | | | | | 0500, For 1 dose | | | | | | + +-------+ +--------+---+---+ +---+---+ | | | +---+---+ + +-------+ +---------+---+---+ | digoxin (LANOXIN) 250 mcg/mL | Given | 12/27/19 | 250 mcg | | | | injection 250 mcg 250 mcg, | | 14 6:36 | | | | | Intravenous, EVERY 6 HOURS | | PM PDT | | | | | INTERVAL, First dose on Mon | | | | | | | 12/26/13 at 1245, For 2 doses | | | | | | + +-------+ +---------+---+---+ +-------+ +---------+---+---+ | Given | 12/27/19 | 250 mcg | | | | | 14 12:32 | | | | | | PM PDT | | | | +-------+ +---------+---+---+ +---+---+ | | | +---+---+ + +-------+ +---------+---+---+ | digoxin (LANOXIN) tablet 250 | Given | 12/28/19 | 250 mcg | | | | mcg 250 mcg, Oral, DAILY, First | | 14 2:08 | | | | | dose on Mon12/27/13 at 1415 | | PM PDT | | | | + +-------+ +---------+---+---+ +---+---+ | | | +---+---+ + +---------+ +-------+---+---+ | famotidine (PEPCID) injection | New Bag | 12/26/19 | 20 mg | | | | 20 mg 20 mg, Intravenous, 2 | | 14 8:01 | | | | | TIMES DAILY, First dose on Mon | | AM PDT | | | | | 12/24/13 at 2100, For 2 doses, | | | | | | | Keep in refrigerator. Prior to | | | | | | | administration, prepare a 20 mg | | | | | | | dose by diluting 2 mL of | | | | | | | famotidine 10 mg/mL to 10 mL with | | | | | | | normal saline., Post-op/Phase II | | | | | | + +---------+ +-------+---+---+ +---------+ +-------+---+---+ | New Bag | 12/25/19 | 20 mg | | | | | 14 8:25 | | | | | | PM PDT | | | | +---------+ +-------+---+---+ +---+---+ | | | +---+---+ + + + +--------+---------+---+ | fentaNYL in saline 5 mcg/mL | Rate/Dos | 12/26/19 | 15 | 3 mL/hr | | | infusion 25-100 mcg/hr (rounded | e Change | 14 7:00 | mcg/hr | | | | to 5-20 mL/hr), at 5-20 mL/hr, | | AM PDT | | | | | Intravenous, TITRATED, Starting | | | | | | | 12/24/13 at 1930, | | | | | | | Post-op/Phase II | | | | | | + + + +--------+---------+---+ + + +--------+---------+---+ | Rate/Dose Change | 12/26/19 | 0.1 | 0.1 | | | | 14 2:00 | mcg/hr | mL/hr | | | | AM PDT | | | | + + +--------+---------+---+ | Rate/Dose Change | 12/26/19 | 10 | 2 mL/hr | | | | 14 1:00 | mcg/hr | | | | | AM PDT | | | | + + +--------+---------+---+ +---+---+ | | | +---+---+ + +---------+ +--------+-------+---+ | ferric gluconate (FERRLECIT, | New Bag | 01/02/20 | 125 mg | 110 | | | NULECIT) 125 mg in sodium | | 14 9:00 | | mL/hr | | | chloride 0.9% 100 mL IVPB 125 | | AM PDT | | | | | mg, Intravenous, Administer over | | | | | | | 1 Hours, DAILY, First dose on Sun | | | | | | | 12/29/13 at 1000, For 8 doses, | | | | | | | Keep in refrigerator., | | | | | | + +---------+ +--------+-------+---+ +---------+ +--------+-------+---+ | New Bag | 01/01/20 | 125 mg | 110 | | | | 14 8:42 | | mL/hr | | | | AM PDT | | | | +---------+ +--------+-------+---+ | New Bag | 12/31/19 | 125 mg | 110 | | | | 14 10:09 | | mL/hr | | | | AM PDT | | | | +---------+ +--------+-------+---+ +---+---+ | | | +---+---+ + +-------+ +--------+---+---+ | ferrous gluconate (FERGON) | Given | 01/01/20 | 324 mg | | | | tablet 324 mg 324 mg, Oral, 2 | | 14 6:07 | | | | | TIMES DAILY WITH BREAKFAST & | | PM PDT | | | | | DINNER, First dose on [facility] 12/26/13 | | | | | | | at 0800, Hold for nausea or | | | | | | | vomiting., | | | | | | + +-------+ +--------+---+---+ +-------+ +--------+---+---+ | Given | 01/01/20 | 324 mg | | | | | 14 8:35 | | | | | | AM PDT | | | | +-------+ +--------+---+---+ | Given | 12/31/19 | 324 mg | | | | | 14 5:08 | | | | | | PM PDT | | | | +-------+ +--------+---+---+ +---+---+ | | | +---+---+ + +-------+ +------+---+---+ | folic acid tablet 1 mg 1 mg, | Given | 01/03/20 | 1 mg | | | | Oral, DAILY, First dose on [place] | | 14 9:30 | | | | | 12/26/13 at 0900 | | AM PDT | | | | + +-------+ +------+---+---+ +-------+ +------+---+---+ | Given | 01/02/20 | 1 mg | | | | | 14 11:18 | | | | | | AM PDT | | | | +-------+ +------+---+---+ | Given | 01/01/20 | 1 mg | | | | | 14 8:35 | | | | | | AM PDT | | | | +-------+ +------+---+---+ +---+---+ | | | +---+---+ + +---------+ +-------+---+---+ | furosemide (LASIX) injection 40 | New Bag | 12/27/19 | 40 mg | | | | mg 40 mg, Intravenous, ONCE, | | 14 8:01 | | | | | [place] 12/26/13 at 0745, For 1 dose | | AM PDT | | | | + +---------+ +-------+---+---+ +---+---+ | | | +---+---+ + +---------+ +-------+---+---+ | furosemide (LASIX) injection 40 | New Bag | 12/30/19 | 40 mg | | | | mg 40 mg, Intravenous, ONCE, | | 14 10:40 | | | | | [place] 12/29/13 at 1000, For 1 dose | | AM PDT | | | | + +---------+ +-------+---+---+ +---+---+ | | | +---+---+ + +---------+ +-------+---+---+ | furosemide (LASIX) injection 40 | New Bag | 06/16/20 | 40 mg | | | | mg 40 mg, Intravenous, ONCE, | | 14 1:20 | | | | | 12/30/13 at 0200, For 1 dose, | | AM PDT | | | | | Ordered to be given post blood | | | | | | | transfusion. Pt still needs to | | | | | | | be type and crossed. So if you | | | | | | | could just make it available in | | | | | | | general and not time medication | | | | | | | that would be best. Not sure | | | | | | | what time it will start., | | | | | | + +---------+ +-------+---+---+ +---+---+ | | | +---+---+ + +---------+ +-------+---+---+ | furosemide (LASIX) injection 40 | New Bag | 12/31/19 | 40 mg | | | | mg 40 mg, Intravenous, 2 TIMES | | 14 5:07 | | | | | DAILY 0800 & 1600, First dose on | | PM PDT | | | | | 12/30/13 at 0800, For 2 doses | | | | | | + +---------+ +-------+---+---+ +---------+ +-------+---+---+ | New Bag | 12/31/19 | 40 mg | | | | | 14 9:10 | | | | | | AM PDT | | | | +---------+ +-------+---+---+ +---+---+ | | | +---+---+ + +-------+ + +---+---+ | HYDROcodone-acetaminophen | Given | 01/02/20 | 1 tablet | | | | (NORCO) 10-325 mg per tablet 1-2 | | 14 3:38 | | | | | tablet 1-2 tablet, Oral, EVERY 4 | | AM PDT | | | | | HOURS PRN, Pain, Starting Tue | | | | | | | 12/24/13 at 1913, If ineffective | | | | | | | or not tolerated use Oxycodone if | | | | | | | ordered. MAX 12 tabs/24 hrs, | | | | | | + +-------+ + +---+---+ +-------+ + +---+---+ | Given | 01/01/20 | 1 tablet | | | | | 14 3:23 | | | | | | AM PDT | | | | +-------+ + +---+---+ +---+---+ | | | +---+---+ + +-------+ + +---+---+ | HYDROcodone-acetaminophen | Given | 01/03/20 | 1 tablet | | | | (NORCO) 5-325 mg per tablet 1-2 | | 14 2:44 | | | | | tablet 1-2 tablet, Oral, EVERY 4 | | AM PDT | | | | | HOURS PRN, Pain, Starting Tue | | | | | | | 12/24/13 at 1913, If ineffective | | | | | | | use [place] 10/325 if ordered. If | | | | | | | not tolerated, use Percocet then | | | | | | | Oxycodone if ordered. MAX 12 | | | | | | | tabs/24 hrs., | | | | | | + +-------+ + +---+---+ +-------+ + +---+---+ | Given | 01/02/20 | 1 tablet | | | | | 14 11:57 | | | | | | PM PDT | | | | +-------+ + +---+---+ | Given | 01/02/20 | 1 tablet | | | | | 14 7:18 | | | | | | PM PDT | | | | +-------+ + +---+---+ +---+---+ | | | +---+---+ + +-------+ +---------+---+ + | insulin lispro (humaLOG | Given | 12/27/19 | 1 Units | | Arm-Left | | KWIKPEN) injection pen 0-6 Units | | 14 11:46 | | | Upper | | 0-6 Units, Subcutaneous, 4 TIMES | | AM PDT | | | | | DAILY BEFORE MEALS & NIGHTLY, | | | | | | | First dose on [place] 12/26/13 at | | | | | | | 0815, CORRECTION SCALE: Blood | | | | | | | Glucose (BG) < 150: | | | | | | | None BG 150-200: DAY: 1 units. | | | | | | | NIGHT: 0 units BG 201-250: | | | | | | | DAY: 2 units. NIGHT: 1 units | | | | | | | BG 251-300: DAY: 3 units. NIGHT: | | | | | | | 2 units BG 301-350: DAY: 4 | | | | | | | units. NIGHT: 3 units BG | | | | | | | 351-400: DAY: 5 units. NIGHT: 4 | | | | | | | units BG > 400 : DAY: 6 | | | | | | | units. NIGHT: 5 units | | | | | | | AND CALL PROVIDER | | | | | | | Use DAY DOSE for doses | | | | | | | scheduled: AC, NPO, Daytime | | | | | | | [id number] Use NIGHT DOSE for | | | | | | | doses scheduled: HS, 3AM, | | | | | | | Nighttime [id number], | | | | | | + +-------+ +---------+---+ + +---+---+ | | | +---+---+ + + + + +-------+---+ | insulin regular (novoLIN R) 100 | Rate/Dos | 12/27/19 | 1.8 | 1.8 | | | units in 100 mL NS infusion | e Change | 14 9:30 | Units/hr | mL/hr | | | 0-140.8 Units/hr (rounded to | | AM PDT | | | | | 0-140.8 mL/hr), at 0-140.8 mL/hr, | | | | | | | Intravenous, TITRATED, Starting | | | | | | | 12/24/13 at 1930, See | | | | | | | reference 2 for link to Insulin | | | | | | | Drip Protocol below. Activate | | | | | | | system and mix before use., | | | | | | + + + + +-------+---+ + + + +---------+---+ | Rate/Dose Change | 12/27/19 | 1 | 1 mL/hr | | | | 14 7:32 | Units/hr | | | | | AM PDT | | | | + + + +---------+---+ | Rate/Dose Change | 12/27/19 | 1.3 | 1.3 | | | | 14 5:25 | Units/hr | mL/hr | | | | AM PDT | | | | + + + +---------+---+ +---+---+ | | | +---+---+ + +-------+ +--------+---+---+ | magnesium hydroxide (MILK OF | Given | 01/02/20 | 30 mLs | | | | MAGNESIA) 400 mg/5 mL suspension | | 14 8:32 | | | | | 30 mL 30 mL, Oral, DAILY PRN, | | PM PDT | | | | | Constipation, Starting Tue | | | | | | | 12/31/13 at 1546, Drake mayes., | | | | | | + +-------+ +--------+---+---+ +-------+ +--------+---+---+ | Given | 01/01/20 | 30 mLs | | | | | 14 4:09 | | | | | | PM PDT | | | | +-------+ +--------+---+---+ +---+---+ | | | +---+---+ + +---------+ +-----+---+---+ | magnesium sulfate 2 g/50 mL | New Bag | 12/26/19 | 2 g | | | | IVPB 2 g 2 g, Intravenous, | | 14 8:00 | | | | | DAILY, First dose on Mon12/24/13 | | AM PDT | | | | | at 1930, For 2 doses, Maximum | | | | | | | recommended infusion rate = 1 | | | | | | | gram/hour (25 ml/hr)., | | | | | | | Post-op/Phase II | | | | | | + +---------+ +-----+---+---+ +---------+ +-----+---+---+ | New Bag | 12/25/19 | 2 g | | | | | 14 8:25 | | | | | | PM PDT | | | | +---------+ +-----+---+---+ +---+---+ | | | +---+---+ + +-------+ +-------+---+---+ | metoprolol tartrate (LOPRESSOR) | Given | 06/12/20 | 25 mg | | | | tablet 25 mg 25 mg, Oral, 2 | | 14 8:00 | | | | | TIMES DAILY, First dose on Mon | | AM PDT | | | | | 12/25/13 at 0900, Hold for SBP < | | | | | | | 100 and/or HR < 50., | | | | | | + +-------+ +-------+---+---+ +-------+ +-------+---+---+ | Given | 12/26/19 | 25 mg | | | | | 14 8:35 | | | | | | PM PDT | | | | +-------+ +-------+---+---+ | Given | 12/26/19 | 25 mg | | | | | 14 10:29 | | | | | | AM PDT | | | | +-------+ +-------+---+---+ +---+---+ | | | +---+---+ + +-------+ +-------+---+---+ | metoprolol tartrate (LOPRESSOR) | Given | 12/31/19 | 25 mg | | | | tablet 25 mg 25 mg, Oral, 2 | | 14 9:09 | | | | | TIMES DAILY, First dose (after | | AM PDT | | | | | last modification) on 12/30/13 | | | | | | | at 0900 | | | | | | + +-------+ +-------+---+---+ +---+---+ | | | +---+---+ + +-------+ +-------+---+---+ | metoprolol tartrate (LOPRESSOR) | Given | 12/31/19 | 25 mg | | | | tablet 25 mg 25 mg, Oral, | | 14 12:07 | | | | | DAILY, First dose on Mon12/30/13 | | PM PDT | | | | | at 1230, For 1 dose | | | | | | + +-------+ +-------+---+---+ +---+---+ | | | +---+---+ + +-------+ +-------+---+---+ | metoprolol tartrate (LOPRESSOR) | Given | 01/02/20 | 25 mg | | | | tablet 25 mg 25 mg, Oral, ONCE, | | 14 4:59 | | | | | 01/01/14 at 0500, For 1 dose | | AM PDT | | | | + +-------+ +-------+---+---+ +---+---+ | | | +---+---+ + +-------+ +-------+---+---+ | metoprolol tartrate (LOPRESSOR) | Given | 01/03/20 | 25 mg | | | | tablet 25 mg 25 mg, Oral, 2 | | 14 9:30 | | | | | TIMES DAILY, First dose (after | | AM PDT | | | | | last modification) on Mon01/01/14 | | | | | | | at 2100 | | | | | | + +-------+ +-------+---+---+ +-------+ +-------+---+---+ | Given | 01/02/20 | 25 mg | | | | | 14 8:32 | | | | | | PM PDT | | | | +-------+ +-------+---+---+ +---+---+ | | | +---+---+ + +-------+ +-------+---+---+ | metoprolol tartrate (LOPRESSOR) | Given | 12/27/19 | 50 mg | | | | tablet 50 mg 50 mg, Oral, 2 | | 14 9:28 | | | | | TIMES DAILY, First dose (after | | PM PDT | | | | | last modification) on [facility] 12/26/13 | | | | | | | at 1245, Hold for SBP < 100 | | | | | | | and/or HR < 50., | | | | | | + +-------+ +-------+---+---+ +-------+ +-------+---+---+ | Given | 12/27/19 | 50 mg | | | | | 14 12:56 | | | | | | PM PDT | | | | +-------+ +-------+---+---+ +---+---+ | | | +---+---+ + +-------+ +-------+---+---+ | metoprolol tartrate (LOPRESSOR) | Given | 12/30/19 | 50 mg | | | | tablet 50 mg 50 mg, Oral, 2 | | 14 1:09 | | | | | TIMES DAILY, First dose on Sun | | PM PDT | | | | | 12/29/13 at 1300 | | | | | | + +-------+ +-------+---+---+ +---+---+ | | | +---+---+ + +-------+ +-------+---+---+ | metoprolol tartrate (LOPRESSOR) | Given | 12/31/19 | 50 mg | | | | tablet 50 mg 50 mg, Oral, 2 | | 14 8:28 | | | | | TIMES DAILY, First dose (after | | PM PDT | | | | | last modification) on Mon12/30/13 | | | | | | | at 2100 | | | | | | + +-------+ +-------+---+---+ +---+---+ | | | +---+---+ + +-------+ +-------+---+---+ | metoprolol tartrate (LOPRESSOR) | Given | 01/01/20 | 50 mg | | | | tablet 50 mg 50 mg, Oral, 2 | | 14 8:55 | | | | | TIMES DAILY, First dose (after | | PM PDT | | | | | last modification) on Mon12/31/13 | | | | | | | at 0900 | | | | | | + +-------+ +-------+---+---+ +-------+ +-------+---+---+ | Given | 01/01/20 | 50 mg | | | | | 14 8:35 | | | | | | AM PDT | | | | +-------+ +-------+---+---+ +---+---+ | | | +---+---+ + +-------+ +-------+---+---+ | metoprolol tartrate (LOPRESSOR) | Given | 12/29/19 | 75 mg | | | | tablet 75 mg 75 mg, Oral, 2 | | 14 8:53 | | | | | TIMES DAILY, First dose (after | | PM PDT | | | | | last modification) on Mon12/27/13 | | | | | | | at 0800, Hold for SBP < 100 | | | | | | | and/or HR < 50., | | | | | | + +-------+ +-------+---+---+ +-------+ +-------+---+---+ | Given | 12/29/19 | 75 mg | | | | | 14 8:33 | | | | | | AM PDT | | | | +-------+ +-------+---+---+ | Given | 12/28/19 | 75 mg | | | | | 14 9:11 | | | | | | PM PDT | | | | +-------+ +-------+---+---+ + +---+ | | | + +---+ | [id number]-efrddtoig-krarqhmuhf | | | (NEOSPORIN) [phone] ointment | | | Starting 12/25/13 at 1233, For | | | 1 dose, KEYSHA CHOWDARY: | | | andrade override, | | + +---+ | | | + +---+ + +-------+ + +---+---+ | [id number]-ghhwklbgp-nekdfgrcyb | Given | 12/26/19 | 1 | | | | (NEOSPORIN) ointment Topical, | | 14 12:47 | Applicat | | | | CONDITIONAL PRN, when central | | PM PDT | ion | | | | venous catheter discontinued, | | | | | | | Starting 12/25/13 at 1230 | | | | | | + +-------+ + +---+---+ +---+---+ | | | +---+---+ + +-------+ +------+---+---+ | ondansetron (ZOFRAN ODT) | Given | 12/31/19 | 4 mg | | | | disintegrating tablet 4 mg 4 mg, | | 14 6:24 | | | | | Oral, EVERY 6 HOURS PRN, Nausea, | | AM PDT | | | | | Vomiting, Starting Mon12/24/13 | | | | | | | at 1913, First line agent, | | | | | | + +-------+ +------+---+---+ +---+---+ | | | +---+---+ + +-------+ +------+---+---+ | ondansetron (ZOFRAN) injection | Given | 01/01/20 | 4 mg | | | | 4 mg 4 mg, Intravenous, EVERY 6 | | 14 8:19 | | | | | HOURS PRN, Nausea, Vomiting, | | AM PDT | | | | | Starting e 12/24/13 at 1913, | | | | | | | First line agent. Use PO option | | | | | | | unless NPO status or unable to | | | | | | | tolerate., | | | | | | + +-------+ +------+---+---+ +-------+ +------+---+---+ | Given | 12/31/19 | 4 mg | | | | | 14 2:47 | | | | | | PM PDT | | | | +-------+ +------+---+---+ | Given | 12/30/19 | 4 mg | | | | | 14 6:10 | | | | | | PM PDT | | | | +-------+ +------+---+---+ +---+---+ | | | +---+---+ + +-------+ +------+---+---+ | ondansetron (ZOFRAN) injection | Given | 01/02/20 | 4 mg | | | | 4 mg 4 mg, Intravenous, EVERY 4 | | 14 7:15 | | | | | HOURS PRN, Nausea, Vomiting, | | AM PDT | | | | | Starting Mon12/31/13 at 1115, | | | | | | | First line agent. Use PO option | | | | | | | unless NPO status or unable to | | | | | | | tolerate., | | | | | | + +-------+ +------+---+---+ +-------+ +------+---+---+ | Given | 01/01/20 | 4 mg | | | | | 14 2:15 | | | | | | PM PDT | | | | +-------+ +------+---+---+ +---+---+ | | | +---+---+ + +-------+ +-------+---+---+ | pantoprazole (PROTONIX) DR | Given | 01/03/20 | 40 mg | | | | tablet 40 mg 40 mg, Oral, DAILY | | 14 9:30 | | | | | BEFORE BREAKFAST, First dose on | | AM PDT | | | | | 12/31/13 at 1130, Do not cut | | | | | | | or crush., | | | | | | + +-------+ +-------+---+---+ +-------+ +-------+---+---+ | Given | 01/02/20 | 40 mg | | | | | 14 8:47 | | | | | | AM PDT | | | | +-------+ +-------+---+---+ | Given | 01/01/20 | 40 mg | | | | | 14 11:36 | | | | | | AM PDT | | | | +-------+ +-------+---+---+ +---+---+ | | | +---+---+ + + + +---------+---------+---+ | phenylephrine (JAXON-SYNEPHRINE) | Rate/Dos | 12/26/19 | 15 | 9 mL/hr | | | 100 mcg/mL in 500 mL NS infusion | e Change | 14 4:00 | mcg/min | | | | 0-260 mcg/min (rounded to 0-156 | | AM PDT | | | | | mL/hr), at 0-156 mL/hr, | | | | | | | Intravenous, TITRATED, Starting | | | | | | | 12/24/13 at 1930, Titrate to | | | | | | | achieve goal hemodynamic | | | | | | | parameters. Initiate: 100 | | | | | | | mcg/min Titrate: 20 mcg/min every | | | | | | | 15 minutes to achieve goal. | | | | | | | Taper: No faster than 20 mcg/min | | | | | | | every 15 minutes Usual dose: | | | | | | | 20-260 mcg/min, Titrate to | | | | | | | achieve MAP >: 60, Titrate to | | | | | | | achieve SBP >: 90, Post-op/Phase | | | | | | | II | | | | | | + + + +---------+---------+---+ + + +---------+ +---+ | Rate/Dose Change | 12/26/19 | 30 | 18 mL/hr | | | | 14 3:00 | mcg/min | | | | | AM PDT | | | | + + +---------+ +---+ | Rate/Dose Change | 12/26/19 | 20 | 12 mL/hr | | | | 14 2:00 | mcg/min | | | | | AM PDT | | | | + + +---------+ +---+ +---+---+ | | | +---+---+ + +-------+ +--------+---+---+ | potassium chloride (KLOR-CON) | Given | 12/27/19 | 10 mEq | | | | CR tablet 10 mEq 10 mEq, Oral, | | 14 8:01 | | | | | ONCE, [facility] 12/26/13 at 0745, For 1 | | AM PDT | | | | | dose, May take with food to | | | | | | | decrease GI upset., | | | | | | + +-------+ +--------+---+---+ +---+---+ | | | +---+---+ + +-------+ +--------+---+---+ | potassium chloride (KLOR-CON) | Given | 12/31/19 | 10 mEq | | | | CR tablet 10 mEq 10 mEq, Oral, 2 | | 14 8:28 | | | | | TIMES DAILY, First dose on Mon | | PM PDT | | | | | 12/30/13 at 0900, For 2 doses, May | | | | | | | take with food to decrease GI | | | | | | | upset., | | | | | | + +-------+ +--------+---+---+ +-------+ +--------+---+---+ | Given | 12/31/19 | 10 mEq | | | | | 14 9:05 | | | | | | AM PDT | | | | +-------+ +--------+---+---+ +---+---+ | | | +---+---+ + +-------+ +--------+---+---+ | potassium chloride (KLOR-CON) | Given | 12/30/19 | 20 mEq | | | | CR tablet 20 mEq 20 mEq, Oral, | | 14 10:40 | | | | | ONCE, 12/29/13 at 1000, For 1 | | AM PDT | | | | | dose | | | | | | + +-------+ +--------+---+---+ +---+---+ | | | +---+---+ + +---------+ +--------+ +---+ | potassium chloride 20 mEq in | New Bag | 12/26/19 | 20 mEq | 25 mL/hr | | | sterile water 50 mL IVPB 20 mEq, | | 14 4:45 | | | | | Intravenous, Administer over 2 | | AM PDT | | | | | Hours, PRN, See Admin | | | | | | | Instructions, Starting Tue | | | | | | | 12/24/13 at 1913, For Central | | | | | | | Line Use Only [K+] =3.6 - 4 | | | | | | | mEql/L Give 20 mEq KCl Q2H IV x | | | | | | | 2 doses For a total of 40 mEq | | | | | | | * Recheck K+ in morning [K+] | | | | | | | =3 - 3.5 mEql/L Give 20 meq | | | | | | | KCl Q2H IV x 3 doses For a | | | | | | | total of 60 mEq * Recheck K+ 2 | | | | | | | hours after replacement is | | | | | | | done. If K+ still < 3.6 mEq/L, | | | | | | | repeat K+ as indicated per | | | | | | | protocol. [K+] < 3.0 mEql/L | | | | | | | Give 20 mEq KCl Q2H IV x 4 doses | | | | | | | For a total of 80 mEq. * | | | | | | | Recheck K+ 2 hours after | | | | | | | replacement is done. If K+ | | | | | | | still < 3.6 mEq/L, repeat K+ as | | | | | | | indicated per protocol., | | | | | | | Post-op/Phase II | | | | | | + +---------+ +--------+ +---+ +---------+ +--------+ +---+ | New Bag | 12/26/19 | 20 mEq | 25 mL/hr | | | | 14 3:30 | | | | | | AM PDT | | | | +---------+ +--------+ +---+ | New Bag | 12/26/19 | 20 mEq | 25 mL/hr | | | | 14 2:08 | | | | | | AM PDT | | | | +---------+ +--------+ +---+ +---+---+ | | | +---+---+ + + + + +-------+---+ | propofol infusion (DIPRIVAN) 10 | Rate/Dos | 12/25/19 | 0.1 | 0.1 | | | mg/mL infusion 10-70 mcg/kg/min | e Change | 14 9:30 | mcg/kg/m | mL/hr | | | | | PM PDT | in | | | | 74.6 kg (rounded to 4.5-31.3 | | | | | | | mL/hr), at 4.5-31.3 mL/hr, | | | | | | | Intravenous, CONTINUOUS PRN, need | | | | | | | for sedation, Starting Tue | | | | | | | 12/24/13 at 1913, Begin at | | | | | | | 10mcg/kg/min, titrate in 5-10 | | | | | | | mcg/kg/min increments every 5 | | | | | | | minutes to a maximum of 70 | | | | | | | mcg/kg/min. Reduce dose every 6 | | | | | | | hours by approximately 10% to | | | | | | | find minimally effective dose. | | | | | | | Titrate to goal RASS -2 to 0., | | | | | | | Post-op/Phase II | | | | | | + + + + +-------+---+ + + + +-------+---+ | Rate/Dose Change | 12/25/19 | 10 | 4.5 | | | | 14 9:12 | mcg/kg/m | mL/hr | | | | PM PDT | in | | | + + + +-------+---+ | Rate/Dose Change | 12/25/19 | 15 | 6.7 | | | | 14 9:00 | mcg/kg/m | mL/hr | | | | PM PDT | in | | | + + + +-------+---+ +---+---+ | | | +---+---+ + +-------+ +--------+---+---+ | senna (SENOKOT) tablet 8.6 mg | Given | 01/03/20 | 8.6 mg | | | | 8.6 mg, Oral, 2 TIMES DAILY, | | 14 9:30 | | | | | First dose on Mon12/25/13 at | | AM PDT | | | | | 0900, If docusate ineffective or | | | | | | | not ordered, give BID until BM, | | | | | | | then PRN. Hold for loose stools, | | | | | | | | | | | | | + +-------+ +--------+---+---+ +-------+ +--------+---+---+ | Given | 01/02/20 | 8.6 mg | | | | | 14 8:32 | | | | | | PM PDT | | | | +-------+ +--------+---+---+ | Given | 01/02/20 | 8.6 mg | | | | | 14 11:18 | | | | | | AM PDT | | | | +-------+ +--------+---+---+ +---+---+ | | | +---+---+ + +---------+ +---+ +---+ | sodium chloride 0.9% (NS) | New Bag | 12/26/19 | | 20 mL/hr | | | infusion at 20 mL/hr, | | 14 2:13 | | | | | Intravenous, CONTINUOUS, Starting | | PM PDT | | | | | 12/25/13 at 1315, Ns carrier | | | | | | | for insulin, | | | | | | + +---------+ +---+ +---+ +---+---+ | | | +---+---+ + +-------+ +-------+---+---+ | sotalol (BETAPACE) tablet 40 mg | Given | 12/29/19 | 40 mg | | | | 40 mg, Oral, EVERY 12 HOURS (2 | | 14 8:33 | | | | | times per day), First dose on Fri | | AM PDT | | | | | 12/27/13 at 2100 | | | | | | + +-------+ +-------+---+---+ +-------+ +-------+---+---+ | Given | 12/28/19 | 40 mg | | | | | 14 9:11 | | | | | | PM PDT | | | | +-------+ +-------+---+---+ +---+---+ | | | +---+---+ + +-------+ +-------+---+---+ | sotalol (BETAPACE) tablet 80 mg | Given | 01/02/20 | 80 mg | | | | 80 mg, Oral, EVERY 12 HOURS (2 | | 14 11:18 | | | | | times per day), First dose (after | | AM PDT | | | | | last modification) on Sat | | | | | | | 12/28/13 at 2100 | | | | | | + +-------+ +-------+---+---+ +-------+ +-------+---+---+ | Given | 01/01/20 | 80 mg | | | | | 14 8:55 | | | | | | PM PDT | | | | +-------+ +-------+---+---+ | Given | 01/01/20 | 80 mg | | | | | 14 8:35 | | | | | | AM PDT | | | | +-------+ +-------+---+---+ +---+---+ | | | +---+---+ + +-------+ +--------+---+---+ | vitamin C tablet 250 mg 250 | Given | 01/03/20 | 250 mg | | | | mg, Oral, 2 TIMES DAILY WITH | | 14 9:29 | | | | | BREAKFAST & DINNER, First dose | | AM PDT | | | | | (after last modification) on [facility] | | | | | | | 12/26/13 at 1700 | | | | | | + +-------+ +--------+---+---+ +-------+ +--------+---+---+ | Given | 01/02/20 | 250 mg | | | | | 14 6:20 | | | | | | PM PDT | | | | +-------+ +--------+---+---+ | Given | 01/02/20 | 250 mg | | | | | 14 11:18 | | | | | | AM PDT | | | | +-------+ +--------+---+---+ +---+---+ | | | +---+---+ + +-------+ +------+---+---+ | warfarin (COUMADIN) tablet 5 mg | Given | 01/02/20 | 5 mg | | | | 5 mg, Oral, Once - Warfarin, | | 14 12:46 | | | | | First dose on Mon01/01/14 at | | PM PDT | | | | | 1000, For 1 dose, Drug education | | | | | | | required., | | | | | | + +-------+ +------+---+---+ +---+---+ | | | +---+---+ + +-------+ +------+---+---+ | warfarin (COUMADIN) tablet 5 mg | Given | 01/03/20 | 5 mg | | | | 5 mg, Oral, Once - Warfarin, | | 14 12:11 | | | | | First dose (after last reorder) | | PM PDT | | | | | on [place] 01/02/14 at 1000, For 1 | | | | | | | dose, Please give early Drug | | | | | | | education required., | | | | | | + +-------+ +------+---+---+ +---+---+ | | | +---+---+ documented in this encounter
--- OUTSIDE RECORDS SUMMARY | ~2019-07-30 | XMS | Encounter Summary ---
Demographics + + + | Address | [address] | | | [place] [address] | + + + | Home Phone | | + + + | Preferred Language | Unknown | + + + | Marital Status | | + + + | Yarsanism Affiliation | 1001 | + + + [...] Team Providers + +------+ + | Care Girls Swimming Coach Name | Role | Phone | + +------+ + | Doug García MD | PCP | | + +------+ + Reason for Visit +--------+ + | Reason | Comments | +--------+ + | Other | | +--------+ + Evaluate & Treat (Routine) +--------+--------+ + + + + | Status | Reason | Specialty | Diagnoses / | Referred By | Referred To | | | | | Procedures | Contact | Contact | +--------+--------+ + + + + | Closed | | Cardiothoraci | Diagnoses | | [place], | | | | c Surgery | Coronary | [place], | Sj Campbell MD | | | | | atherosclero | Erum Ragland, | | | | | | sis of | | [address] [place], | | | | | [place] [address] | [place] [address] | | | | | coronary | [address] | Phone: | | | | | artery | [place] | [phone] | | | | | Procedures | [id number] | Fax: | | | | | [place] CABG, | Phone: | [phone] | | | | | ARTERIAL, | [phone] | | | | | | THREE | Fax: | | | | | | | [phone] | | +--------+--------+ + + + + Encounter Details +--------+---------+ + + + | Date | Type | Department | Care Team | Description | +--------+---------+ + + + | 12/23/ | Office | [facility] | Sj Viera, | Coronary artery | | 2013 | Visit | [facility] | [address] | disease with hx of | | | | [facility] | [place] [address] | myocardial infarct | | | | [address] | [phone] | w/o hx of CABG | | | | [place], [place] | | (Primary Dx) | | | | [address] | | | | | | [phone] | | | +--------+---------+ + + + [...] this encounter Last Filed Vital Signs + +---------+ + + | Vital Sign | Reading | Time Taken | Comments | + +---------+ + + | Blood Pressure | 122/82 | 12/23/2013 11:57 AM | | | | | PDT | | + +---------+ + + | Pulse | 61 | 12/23/2013 11:57 AM | | | | | PDT | | + +---------+ + + | Temperature | - | - | | + +---------+ + + | Respiratory Rate | - | - | | + +---------+ + + | Oxygen Saturation | 97% | 12/23/2013 11:57 AM | | | | | PDT | | + +---------+ + + | Inhaled Oxygen | - | - | | | Concentration | | | | + +---------+ + + | Weight | - | - | | + +---------+ + + | Height | - | - | | + +---------+ + + | Body Mass Index | - | - | | + +---------+ + + documented in this encounter Functional [...] | + + | Coronary artery disease with hx of myocardial infarct w/o hx of CABG - Primary | | Coronary atherosclerosis of [place] coronary artery | + + documented in this encounter"
--- OUTSIDE RECORDS SUMMARY | ~2019-07-30 | XMS | Encounter Summary ---
Demographics + + + | Address | [address] | | | [place] [address] | + + + | Home Phone | | + + + | Preferred Language | Unknown | + + + | Marital Status | | + + + | Hindu Affiliation | 1001 | + + + | Race | Unknown | + + + | Ethnic Group | Unknown | + + + Author + + + | Author | [facility] | | | and [place] | + + + | Organization | [facility] | | [...] Team Providers + +------+ + | Care Child Care Teacher Name | Role | Phone | + +------+ + PCP | Unavailable | + +------+ + Encounter Details +--------+ + + + + | Date | Type | Department | Care Team | Description | +--------+ + + + + | 07/30/ | Abstract | [facility] | Donald Mendiola, | SLEEP APNEA | | 2013 | | [facility] | [address] | OBSTRUCTIVE (Primary | | | | Internal Medicine | [address] [place], [place] | Dx); CORONARY | | | | [address] [facility] | [id number] | ARTERY DISEASE | | | | [place], [place] | | | | | | [address] | | | | | | [phone] | | | +--------+ + + + [...] Comments | + + +---------+ + | Not Asked | | | | + + +---------+ + + + [...] + | Diagnosis | + + | SLEEP APNEA OBSTRUCTIVE - Primary Obstructive sleep apnea (adult) (pediatric) | + + | CORONARY ARTERY DISEASE Coronary atherosclerosis of unspecified type of vessel, | | nez perce or graft | + + documented in this encounter"
--- OUTSIDE RECORDS SUMMARY | ~2019-07-30 | XMS | Encounter Summary ---
Demographics + + + | Address | [address] | | | [place] [address] | + + + | Home Phone | | + + + | Preferred Language | Unknown | + + + | Marital Status | | + + + | Bahai Affiliation | 1001 | + + + | Race | Unknown | + + + | Ethnic Group | Unknown | + + + Author + + + | Author | [facility] | | | and [place] | + + + | Organization | [facility] | | | [...] Team Providers + +------+ + | Care Inspector Firearms Name | Role | Phone | + +------+ + PCP | Unavailable | + +------+ + Encounter Details +--------+ + + + + | Date | Type | Department | Care Team | Description | +--------+ + + + + | 03/31/ | Hospital | [facility] | Ludwin Lea, | | | 2010 | Encounter | [facility] | [address] | | | | [facility] | [facility] | | | | | [address] | [place] [address] | | | | | [place], [place] | [phone] | | | | | [address] | | | | | | [phone] | | | +--------+ + + + [...] + | TROPONIN I | STAT | 03/31/2011 | | Results for this | | | | 9:05 AM | | procedure are in the | | | | PDT | | results section. | + +--------+ + + + | CK-MB | STAT | 03/31/2011 | | Results for this | | | | 9:05 AM | | procedure are in the | | | | PDT | | results section. | + +--------+ + + + | XR CHEST PA OR AP | | 03/31/2011 | | Results for this | | | | 6:39 AM | | procedure are in the | | | | PDT | | results section. | + +--------+ + + + | CREATINE KINASE | STAT | 03/31/2011 | | Results for this | | | | 6:08 AM | | procedure are in the | | | | PDT | | results section. | + +--------+ + + + | CBC W/AUTO | STAT | 03/31/2011 | | Results for this | | DIFFERENTIAL | | 6:08 AM | | procedure are in the | | | | PDT | | results section. | + +--------+ + + + | TROPONIN I | STAT | 03/31/2011 | | Results for this | | | | 6:08 AM | | procedure are in the | | | | PDT | | results section. | + +--------+ + + + | COMPREHENSIVE | STAT | 03/31/2011 | | Results for this | | METABOLIC PANEL | | 6:08 AM | | procedure are in the | | | | PDT | | results section. | + +--------+ + + + | URINALYSIS | STAT | 03/31/2011 | | Results for this | | | | 12:00 AM | | procedure are in the | | | | PDT | | results section. | + +--------+ + + + documented in this encounter Results Troponin I (03/31/2011 9:05 AM PDT) + + + + + + | Component | Value | Ref Range | Performed | Pathologist | | | | | At | Signature | + + + + + + | Troponin I | 0.72 (H)Comment: | 0.00 - 0.60 | [facility] | | | | REFERENCE RANGE: | ng/mL | [facility] | | | | TROPONIN I<0.10 ng/mL | | [facility] | | | | = Normal0.10 - 0.50 | | [facility] | | | | ng/mL = Possible mild or | | LABORATORY | | | | very early [place]. Consider | | | | | | unstable | | | | | | angina. Repeat testing | | | | | | may be indicated.>0.50 | | | | | | ng/mL = Probable [place]. | | | | | | If clinically | | | | | | indicated, serial | | | | | | testing may be | | | | | | helpful. | | | | + + + + + + + + | Specimen | + + | | + + + + + + + | Performing | Address | City/State/Zipcode | Phone Number | | Organization | | | | + + + + + | [facility] | [address] | [place] [address] | | | [facility] | | | | | LABORATORY | | | | + + + + + | [facility] | | | | | [facility] | | | | | LABORATORY | | | | + + + + + CK-MB (03/31/2011 9:05 AM PDT) + + + + + + | Component | Value | Ref Range | Performed | Pathologist | | | | | At | Signature | + + + + + + | CK TOTAL | 324 (H)Comment: Please | 26 - 192 U/L | [facility] | | | | note change in reference | | [facility] | | | | ranges for CK. | | [facility] | | | | | [facility] | | | | | | LABORATORY | | + + + + + + | CK-MB | 11.5 (H) | 0 - 3.9 ngmL | [facility] | | | | | | [facility] | | | | | | [facility] | | | | [facility] | | | | | | LABORATORY | | + + + + + + | CK Index | 3.5 | <4.0 | [facility] | | | | | | [facility] [...] + + | [facility] | [address] [facility] | [place] [address] | | | [facility] | | | | | LABORATORY | | | | + + + + + | [facility] | | | | | [facility] | | | | | LABORATORY | | | | + + + + + XR Chest PA or AP (03/31/2011 6:39 AM PDT) + + | Specimen | + + | | + + + + + | Narrative | Performed At | + + + | Exam Performed Location: [facility] | [facility] | | CHEST ONE-VIEW CLINICAL INFORMATION: Chest pain. COMPARISON: | LAB | | Chest two views on 08/03/2008. FINDINGS: Single portable AP | | | semi-erect film of the chest was obtained. Overlying leads are seen. | | | Trachea is near midline. Mild cardiomegaly is noted. Bibasilar | | | congestion and/or infiltrates cannot be entirely eliminated. There | | | is haziness of both costophrenic sulci which may be due to technique | | | and overlying soft tissues. Osseous structures are unchanged from | | | prior exam. PA and lateral erect chest for follow up is | | | recommended. IMPRESSION: 1. Mild cardiomegaly. 2. | | | Questionable bibasilar congestion and/or infiltrates. 3. Haziness | | | of both costophrenic sulci as discussed above. S: SQ ([id number]) | | | Signed by: GILBERTO LYLES DO | | + + + + + | Procedure Note | + + | Carlos Martínez Conversion - 05/09/2013 4:57 PM PDT Exam Performed Location: [facility] | | at [facility] ONE-VIEWCLINICAL INFORMATION:Chest pain.COMPARISON:Chest | | two views on 08/03/2008.FINDINGS:Single portable AP semi-erect film of the chest was | | obtained.Overlying leads are seen. Trachea is near midline. Mildcardiomegaly is noted. | | Bibasilar congestion and/or infiltratescannot be entirely eliminated. There is | | haziness of bothcostophrenic sulci which may be due to technique and overlying | | softtissues. Osseous structures are unchanged from prior exam. PA andlateral erect | | chest for follow up is recommended.IMPRESSION:1. Mild cardiomegaly.2. Questionable | | bibasilar congestion and/or infiltrates.3. Haziness of both costophrenic sulci as | | discussed above.S: SQ ([id number]) Signed by: GILBERTO LYLES DO | |FINDINGS: | |Single portable AP semi-erect film of the chest was obtained. | |Overlying leads are seen. Trachea is near midline. Mild | |cardiomegaly is noted. Bibasilar congestion and/or infiltrates | |cannot be entirely eliminated. There is haziness of both | |costophrenic sulci which may be due to technique and overlying soft | |tissues. Osseous structures are unchanged from prior exam. PA and | |lateral erect chest for follow up is recommended. | | | |IMPRESSION: | |1. Mild cardiomegaly. | |2. Questionable bibasilar congestion and/or infiltrates. | |3. Haziness of both costophrenic sulci as discussed above. | | | | | |S: SQ ([id number]) Signed by: GILBERTO LYLES DO | + + + +---------+ + + | Performing | Address | City/State/Zipcode | Phone Number | | Organization | | | | + +---------+ + + | [facility] | | | [phone] | + +---------+ + + | [facility] | | | [phone] | + +---------+ + + Troponin I (03/31/2011 6:08 AM PDT) + + + + + + | Component | Value | Ref Range | Performed | Pathologist | | | | | At | Signature | + + + + + + | Troponin I | 0.36Comment: REFERENCE | 0.00 - 0.60 | [facility] | | | | RANGE: TROPONIN I<0.10 | ng/mL | [facility] | | | | ng/mL = Normal0.10 - | | [facility] | | | | 0.50 ng/mL = Possible | | HOSPITAL | | | | mild or very early [place]. | | LABORATORY | | | | Consider | | | | | | unstable angina. | | | | | | Repeat testing may be | | | | | | indicated.>0.50 ng/mL = | | | | | | Probable [place]. If | | | | | | clinically indicated, | | | | | | serial | | | | | | testing may be helpful. | | | | + + + + + + + + | Specimen | + + | | + + + + + + + | Performing | Address | City/State/Zipcode | Phone Number | | Organization | | | | + + + + + | [facility] | [address] | [place] [address] | | | [facility] | | | | | LABORATORY | | | | + + + + + | [facility] | | | | | [facility] | | | | | LABORATORY | | | | + + + + + Comprehensive Metabolic Panel (03/31/2011 6:08 AM PDT) + +---------+ + + + | Component | Value | Ref Range | Performed | Pathologist | | | | | At | Signature | + +---------+ + + + | Na | 138.0 | 135 - 145 | [facility] | | | | | mmol/L | [facility] | | | | | | [facility] | | | | [facility] | | | | | | LAB[facility]ATORY | | + +---------+ + + + | K | 4.3 | 3.5 - 5.1 | [facility] | | | | | mmol/L | [facility] | | | | | | [facility] | [facility] | [facility] | | | | | | LAB[facility]ATORY | | + +---------+ + + + | Cl | 102 | 98 - 109 mmol/L | [facility] | | | | | | [facility] | | | | | | [facility] | | [facility] | | | | | | LAB[facility]ORY | | + +---------+ + + + | CO2 | 31.1 | 21 - 32 mmol/L | [facility] | | | | | | [facility] | | | | | [facility] | [facility] | | | | | | LAB[facility]ATORY | | + +---------+ + + + | Anion Gap | 9 (L) | 10 - 20 | [facility] | | | | | | [facility] | | | | | [facility] | | | | | | [facility]ORY | | + +---------+ + + + | Creatinine | 1.1 | 0.5 - 1.2 mg/dL | [facility] | | | | | | [facility] | | | | | [facility] | [facility] | | | | | | [facility]ATORY | | + +---------+ + + + | BUN | 16 | 8 - 21 mg/dL | [facility] | | | | | | [facility] | | | | | | [facility] | [facility] | | | | | | [facility]ATORY | | + +---------+ + + + | Glucose | 134 (H) | 60 - 114 mg/dL | [facility] | | | | | | [facility] | | | | | [facility] | [facility] | | | | | | [facility]ATORY | | + +---------+ + + + | Calcium | 9.0 | 8.4 - 10.5 | [facility] | | | | | mg/dL | [facility] | | | | | | [facility] | | [facility] | | | | | | [facility] | | + +---------+ + + + | Protein, | 7.7 | 6.3 - 8.0 gm/dL | [facility] | | | Total | | | [facility] | | | | | | [facility] | | | | [facility] | | | | | | [facility]ATORY | | + +---------+ + + + | Albumin | 3.9 | 3.5 - 5.0 gm/dL | [facility] | | | | | | [facility] | | | | | | [facility] | | | | | [facility] | | | | | | LAB[facility]ATORY | | + +---------+ + + + | Bilirubin | 0.2 | 0.1 - 1.5 mg/dL | [facility] | | | Total | | | [facility] | | | | | | [facility] | | | | | [facility] | | | | | | LAB[facility]ATORY | | + +---------+ + + + | ALT | 34 | 5 - 50 U/L | [facility] | | | | | | [facility] | | | | | | [facility] | | | | [facility] | | | | | | [facility]ATORY | | + +---------+ + + + | Alkaline | 109 | 38 - 110 U/L | [facility] | | | Phosphatase | | | [facility] | | | | | | [facility] | | | | | | [facility] | | | | | | LABORATORY | | + +---------+ + + + | AST | 14 | 5 - 40 U/L | [facility] [...] | [facility] | [address] [facility] | [place] [address] | | | [facility] | | | | | LABORATORY | | | | + + + + + | [facility] | | | | | [facility] | | | | | LAB[facility]ATORY | | | | + + + + + CBC w/ Auto Differential (03/31/2011 6:08 AM PDT) + + + + + + | Component | Value | Ref Range | Performed | Pathologist | | | | | At | Signature | + + + + + + | Hemoglobin | 12.1 | 11.6 - 15.5 | [facility] | | | | | g/dl | [facility] | | | | | | [facility] | | [facility] | | | | | | [facility] | | + + + + + + | Vaccenic | 35.8 | 35.0 - 46.0 % | [facility] | | | Acid, | | | [facility] | | | [id number]:[id number] | | | [facility] | | | | [facility] | | | | | | [facility]ATORY | | + + + + + + | RBC | 3.84 | 3.80 - 5.20 | [facility] | [...] + + + + | MCH | 31.4 | 27.0 - 34.0 pg | [facility] | | | | | | [facility] | | | | | | [facility] | [facility] | | | | | | [facility]AT[facility] | | + + + + + + | MCHC | 33.6 | 32.0 - 35.5 | [facility] | | | | | g/dL | [facility] | | | | | | [facility] | | [facility] | | | | | | [facility] | | + + + + + + | RDW-CV | 13.2 | 11.0 - 15.0 % | [facility] | | | | | | [facility] | | | | | | [facility] | [facility] | | | | | | [facility]AT[facility] | | + + + + + + | Platelet | 171 | 150 - 400 K/uL | [facility] [...] + + + + + | % Segmented | 72.0 | 38.0 - 80.0 % | [facility] | | | | | | [facility] | | | Neutrophils | | | [facility] | | [facility] | | | | | | [facility]ATORY | | + + + + + + | % | 20.2 (L) | 21 - 49 % | [facility] | | | Lymphocytes | | | [facility] | | | | | | [facility] | | [facility] | | | | | | [facility] | | + + + + + + | % Monocytes | 5.7 | 3.0 - 11.0 % | [facility] | | | | | | [facility] | | | | | | [facility] | | [facility] | | | | | | [facility] | | + + + + + + | % | 2.1 | 0 - 7 % | [facility] | | | Eosinophils | | | [facility] | | | | | | [facility] | | | | [facility] | | | | | | [facility]ORY | | + + + + + + | % Basophils | 0.0 | 0 - 2 % | [facility] | | | | | | [facility] | | | | | | [facility] | | [facility] | | | | | | [facility] | | + + + + + + | Absolute | 4.1 | 1.8 - 7.7 K/uL | [facility] | | | Neutrophils | | | [facility] | | | | | | [facility] | | [facility] | | | | | | [facility] | | + + + + + + | Absolute | 1.1 | 1.0 - 5.0 K/uL | [facility] | | | Lymphocytes | | | [facility] | | | | | | [facility] | | [facility] | | | | | | [facility] | | + + + + + + | Absolute | 0.3 | 0 - 0.8 K/uL | [facility] | | | Monocytes | | | [facility] | | | | | | [facility] | | [facility] | [facility] | | | | | | [facility]AT[facility] | | + + + + + + | Absolute | 0.1 | 0 - 0.5 K/uL | [facility] | | | Eosinophils | | | [facility] | | | | | | [facility] | | | | | [facility] | | | | | | LAB[facility]AT[facility] | | + + + + + + | Absolute | 0.0 | 0 - 0.2 K/uL | [facility] | | | Basophils | | | [...] + + | [facility] | [address] [facility] | [place] [address] | | | [facility] | | | | | LABORATORY | | | | + + + + + | [facility] | | | | | [facility] | | | | | LAB[facility]ORY | | | | + + + + + CREATINE KINASE (03/31/2011 6:08 AM PDT) + + + + + + | Component | Value | Ref Range | Performed | Pathologist | | | | | At | Signature | + + + + + + | CK TOTAL | 269 (H)Comment: Please | 26 - 192 U/L | [facility] | | | | note change in reference | | [facility] | | | | ranges for CK. | | [facility] | | | | [...] [address] | [place] [address] | | | [facility] | | | | | LABORATORY | | | | + + + + + | [facility] | | | | | [facility] | | | | | LABORATORY | | | | + + + + + Urinalysis (03/31/2011 12:00 AM PDT) + + + + + + | Component | Value | Ref Range | Performed | Pathologist | | | | | At | Signature | + + + + + + | Color, | YELLOW | YELLOW | [facility] | | | Urine | | | [facility] | | | | | | [facility] | | [facility] | | | | | | [facility]ATORY | | + + + + + + | APPEARANCE | HAZY (H) | CLEAR | [facility] | | | | | | [facility] | | | | | | [facility] | [facility] | | | | | | [facility] | | + + + + + + | Specific | 1.020 | 1.002 - 1.030 | [facility] | | | [place] | | | [facility] | | | [...] + + + + | Protein, | NEG | NEG mg/dL | [facility] | | | Urine | | | [facility] | | | | | | [facility] | [facility] | | | | | | [facility]AT[facility] | | + + + + + + | Glucose, | NEG | 0 - 30 mg/dL | [facility] | | | Urine | | | [facility] | | | | | | [facility] | | | | | | [facility] | | + + + + + + | Ketones, | NEG | NEG | [facility] | | | Urine | | | [facility] | | | | | | [facility] | | | | | | [facility] | | + + + + + + | Blood, | NEG | NEG | [facility] | | | Urine | | | [facility] | | | | | | [facility] | | | | | | [facility] | | + + + + + + | Bilirubin | NEG | NEG | [facility] | | | Urine | | | [facility] | [facility] | | | [facility] | | | | | | [facility] | | + + + + + + | Leukocyte | TRACE (H) | NEG | [facility] | | | Esterase, | | | [facility] | | | Urine | | | [facility] | | | | | | [facility] | | + + + + + + | Nitrite, | NEG | NEG | [facility] | | | Urine | | | [facility] | | | | | | [facility] | [facility] | | | | | | [facility] | | + + + + + + | Urobilinoge | 0.2 | 0.2 - 1.0 | [facility] | | | n, Urine | | E.U./dL | [facility] | | [facility] | | | [facility] | [facility] | | | | | | [facility] | | + + + + + + | RBC UA | 0-2 | 0 - 5 /hpf | [facility] | | | | | | [facility] | | | | | | [facility] | | | | | | [facility] | | + + + + + + | WBC UA | RARE | 0 - 5 /hpf | [facility] | | | | | | [facility] | | | | | | [facility] | | | | | | [facility] | | + + + + + + | SQUAMOUS | FEW | 0 - 5 /hpf | [facility] | | | EPITHELIAL | | | [facility] | | | UA | | | [facility] | | [facility] | | | | | | [facility] | | + + + + + + | RENAL | FEW | /hpf | [facility] | | | EP[facility]HEL[facility] | | | [facility] | | | UA | | | [facility] | [facility] | | | | | | [facility] | | + + + + + + | BACTERIA UA | NONE SEEN | | [facility] | | | | | | [facility] | | | | | | [facility] | | | | | | [facility] | | + + + + + + | AMORPHOUS | 1+ | /hpf | [facility] | | | [facility] | | | [facility] | | | | | | [facility] | [facility] | | | | | | [facility] | | + + + + + + | Cast Type | NONE SEEN | /lpf | [facility] | | | [...] [address] | [place] [address] | | | [facility] | | | | | LAB[facility]ATORY | | | | + + + + + | [facility] | | | | | [facility] | | | | | LAB[facility]ATORY | | | | + + + + + documented in this encounter Visit Diagnoses Not on filedocumented in this encounter"
--- OUTSIDE RECORDS SUMMARY | ~2019-07-30 | XMS | Encounter Summary ---
Demographics + + + | Address | [address] | | | [place] [address] | + + + | Home Phone | | + + + | Preferred Language | Unknown | + + + | Marital Status | | + + + | Spiritism Affiliation | 1001 | + + + [...] Providers + +------+ + | Care Director Of Marketing [employer] Name | Role | Phone | + +------+ + PCP | Unavailable | + +------+ + Encounter Details +--------+ + + + + | Date | Type | Department | Care Team | Description | +--------+ + + + + | 10/ | Orders Only | [facility] | Gerardo, | | | 2008 | | [facility] | Erum Ragland MD [address] | | | | | [address] | [address] | | | | [address] | [address] | | | | | [address] | [address] | | | | | [phone] | | | +--------+ + + + [...] + +--------+ + + + | HISTORICAL LAB PANEL | Routin | 10/26/2009 | | Results for this | | RESULT | e | | | procedure are in the | | | | | | results section. | + +--------+ + + + | HISTORICAL LAB PANEL | Routin | 04/27/2009 | | Results for this | | RESULT | e | | | procedure are in the | | | | | | results section. | + +--------+ + + + documented in this encounter Results HISTORICAL LAB PANEL RESULT (10/26/2009) + +-------+ + + + | Component | Value | Ref Range | Performed | Pathologist | | | | | At | Signature | + +-------+ + + + | ALT | 48 | | EXTERNAL | | | | | | LAB | | + +-------+ + + + | AST | 40 | | EXTERNAL | | | | | | LAB | | + +-------+ + + + | Cholesterol | 251 | | EXTERNAL | | | | | | LAB | | + +-------+ + + + | HDL | 67 | | EXTERNAL | | | | | | LAB | | + +-------+ + + + | LDL | 165 | | EXTERNAL | | | Cholesterol | | | LAB | | + +-------+ + + + | Triglycerid | 95 | | EXTERNAL | | | es | | | LAB | | + +-------+ + + + + + | Specimen | + + | | + + + +---------+ + + | Performing | Address | City/State/Zipcode | Phone Number | | Organization | | | | + +---------+ + + | EXTERNAL LAB | | | | + +---------+ + + HISTORICAL LAB PANEL RESULT (04/27/2009) + +-------+ + + + | Component | Value | Ref Range | Performed | Pathologist | | | | | At | Signature | + +-------+ + + + | ALT | 31 | | EXTERNAL | | | | | | LAB | | + +-------+ + + + | AST | 31 | | EXTERNAL | | | | | | LAB | | + +-------+ + + + | Cholesterol | 128 | | EXTERNAL | | | | | | LAB | | + +-------+ + + + | Glucose | NULL | | EXTERNAL | | | | | | LAB | | + +-------+ + + + | HDL | 50 | | EXTERNAL | | | | | | LAB | | + +-------+ + + + | CRP, High | NULL | | EXTERNAL | | | Sensitive | | | LAB | | + +-------+ + + + | LDL | 42 | | EXTERNAL | | | Cholesterol | | | LAB | | + +-------+ + + + | Triglycerid | 185 | | EXTERNAL | | | es | | | LAB | | + +-------+ + + + + + | Specimen | + + | | + + + +---------+ + + | Performing | Address | City/State/Zipcode | Phone Number | | Organization | | | | + +---------+ + + | EXTERNAL LAB | | | | + +---------+ + + documented in this encounter Visit Diagnoses Not on filedocumented in this encounter"
--- OUTSIDE RECORDS SUMMARY | ~2019-07-30 | XMS | Encounter Summary ---
Demographics + + + | Address | [address] | | | [place] [address] | + + + | Home Phone | | + + + | Preferred Language | Unknown | + + + | Marital Status | | + + + | Shinto Affiliation | 1001 | + + + | Race | Unknown | + + + | Ethnic Group | Unknown | + + + Author + + + | Author | [facility] | | | and [place] | + + + | Organization | [facility] | | | and [...] Team Providers + +------+ + | Care Cabin Crew Name | Role | Phone | + +------+ + | Doug García MD | PCP | | + +------+ + Encounter Details +--------+ + + + + | Date | Type | Department | Care Team | Description | +--------+ + + + + | 02/10/ | Documentati | [facility] | Doug García MD | | | 2013 | on | [facility] | [address] | | | | | Internal Medicine | [place] [address] | | | | | [address] [facility] | [phone] | | | | | [place], [place] | | | | | | [address] | | | | | | [phone] | | | +--------+ + + + [...] documented as of this encounter Progress Notes Della Vitale RN - 02/10/2014 2:39 PM [id number] [place] [facility] nurse Renetta called today and said that Chaya has been taken off Coumadin by Dr Christianson and that she no longer nee ds to have her protimes checked. Rafi Vitale RNElectronically signed by [place]ella [place] RN at 3:19 PM PDTdocumented in this encounter Plan of Treatment Not on filedocumented as of this encounter Visit Diagnoses Not on filedocumented in this encounter"
--- OUTSIDE RECORDS SUMMARY | ~2019-07-30 | XMS | Encounter Summary ---
Demographics + + + | Address | [address] | | | [place] [address] | + + + | Home Phone | | + + + | Preferred Language | Unknown | + + + | Marital Status | | + + + | Jehovah'S Witness Affiliation | 1001 | + + + | Race | Unknown | + + + | Ethnic Group | Unknown | + + + Author + + + | Author | [facility] | | | and [place] | + + + | Organization | [facility] | | | and [...] Providers + +------+ + | Care Senior Sales Associate Name | Role | Phone | + [...] Closed | | Radiology | Diagnoses | Zierer, | [facility] Echo | | | | | Troponin | Yee M, | Pshi People Greeter | | | | | level | [address]LET REPA[address] | [address] | | | | | elevated | [address] | [address] | | | | | Procedures | [address] | [id number] | | | | | ECHO | [place], [place] | [place] | | | | | Complete | [address] | [place], [place] | | | | | | Phone: | [address] | | | | | | [phone] | Phone: | | | | | | Fax: | [phone] | | | | | | [phone] | Fax: | | | | | | | [phone] | +--------+--------+ + + + + Reason for Visit + + + | Reason | Comments | + + + | Hospital Follow-up | Hosp f/u on recent visit for a NSTEMI and PAF | + + + | Medication | Pt does not think she increased to 20mg Xarelto on 08/27/17, as | | Management | instructed, but does think she is currently taking the 15 mg | | | tabs. | + + + Encounter Details +--------+---------+ + + + | Date | Type | Department | Care Team | Description | +--------+---------+ + + + | 10/03/ | Office | [facility] | Yee Jiménez, | Troponin level | | 2018 | Visit | [facility] | [address] | elevated (Primary | | | | [address] | [address] | Dx); Coronary artery | | | | [address] [place] | [place] [address] | disease involving | | | | [place] | [phone] | coronary bypass | | | | [address] | | graft of cher-ae heights | | | | [phone] | | heart with unstable | | | | | | angina pectoris | | | | | | (HCC); Paroxysmal | | | | | | atrial fibrillation | | | | | | (HCC); Benign | | | | | | essential | | | | | | hypertension; | | | | | | Chronic diastolic | | | | | | CHF (congestive | | | | | | heart failure), NYHA | | | | | | class 2 (HCC); | | | | | | Hyperlipidemia, | | | | | | unspecified | | | | | | hyperlipidemia type; | | | | | | Acquired | | | | | | hypothyroidism | +--------+---------+ + + + Social History [...] + + + | Blood Pressure | 132/72 | 10/03/2017 11:07 AM | right | | | | PDT | | + + + + + | Pulse | 76 | 10/03/2017 11:07 AM | regular | | | | PDT | | [...] + + + + | Weight | 77.6 kg (171 lb) | 10/03/2017 11:07 AM | | | | | PDT | | + + + + + | Height | 165.1 cm (5' 5") | 10/03/2017 11:07 AM | | | | | PDT | | + + + + + | Body Mass Index | 28.46 | 10/03/2017 11:07 AM | | | | | PDT [...] of this encounter Patient Instructions Patient Instructions Cony Torres RN - 10/03/2017 11:00 AM PDTStop Xarelto. Start Eliquis twice daily. Have Echo in [facility]. Follow up in 6 months documented in this encounter Progress Notes Yee Jiménez ARNP - 10/03/2017 11:00 AM PDTFormatting of this note might be different f rom the original. PATIENT NAME: Chaya Chan : 1940: AGE: 76 y.o. ABBY Hawkins PRIMARY CARE: Doug García MD DATE OF SERVICE: 10/03/2017 CHIEF COMPLAINT: Coronary artery disease, paroxysmal atrial fibrillation, congestive heart failure, hyperten marv CURRENT ASSESSMENT BY PROBLEM LIST Coronary artery disease 08/25/17 angiogram showed patent TEMI to the LAD, patent saphenous vein graft to the RCA, occl uded saphenous vein graft to the diagonal and obtuse marginal. Ejection fraction 60% Patient had episode of chest pain on 09/05/17, did not present to emergency room for evaluat ion. She had an appointment for lab drawn with her naturopathic provider the next day whic h showed a significant elevation to her troponin at 15.2. No further evaluation was done. Denies any further episodes of chest pain or shortness of breath Has not been taking her Xarelto as "it was too expensive" Echocardiogram to assess ejection fraction Continue aspirin, isosorbide, metoprolol Began on Eliquis Paroxysmal atrial fibrillation Continues to have intermittent atrial fibrillation, but rate controlled on metoprolol Has not been taking her Xarelto as it was "too expensive", she has been taking naturopathic medications for blood thinning" including cayenne, Cris, vitamin E [id number] Risk Score 8-10.8% estimated stroke risk per year Stop Xarelto Began Eliquis 5 mg by mouth daily Continue rate control with metoprolol Benign essential hypertension Normotensive today blood pressure 132/72 Continue current medical therapy Chronic diastolic CHF (congestive heart failure), NYHA class 2 08/25/17 echocardiogram showed ejection fraction of 65% with left ventricular hypertrophy, mo derate MR, moderate aortic insufficiency Recent outpatient myocardial infarction documented troponin of 15.2 Recheck echocardiogram to assess ejection fraction. Continue on Metoprolol, consider addition of ACE1 if changed to ejection fraction Hyperlipidemia 09/06/16 lipid panel shows total cholesterol 138, triglycerides 148, HDL 53, LDL 63 Continue atorvastatin TSH at 3.1 Continue Synthroid PLAN 1. Began on Eliquis 5 mg by mouth twice a day 2. Echocardiogram to assess ejection fraction, results will be called to you 3. Follow-up in 6 months NEW ORDERS Orders Placed This Encounter Procedures ECG 12 lead ECHO Complete FOLLOWUP Return in about 6 months (around 04/05/2018). HISTORY OF PRESENT ILLNESS Chaya is a 76 y.o. year old female with a history of coronary artery disease, status post MO 08/24/17, atrial fibrillation, prior embolic CVA, that presents to clinic today for follow- up on her coronary artery disease and atrial fibrillation. Patient states on 09/05/17 she chandler d an episode of chest pain during the night which lasted about 5 minutes. She got up and to ok her Cayenne pepper and went back to bed. The following day she did have a scheduled appo intment to have labs drawn by her naturopathic provider and the results of that lab work samra wed a troponin of 15.2. She had no follow-up from this lab results. Patient brings results from these testing to me today. Since that episode of chest pain she has not had any furth er chest pain. Denies any shortness of breath or nausea. Does endorse that she has not aries en her Xarelto that was prescribed secondary to cost. States she does use natural pathic bl ood thinners instituted including cris, Cayenne pepper, and vitamin E. Very resistant to began a blood thinner, refuses Coumadin. We will consider Eliquis if affordable. Continues to have episodes of atrial fibrillation, these are rate controlled on her Toprol. MEDICATIONS at completion of office visit Current Outpatient Prescriptions Medication Sig apixaban (ELIQUIS) 5 mg tablet Take 1 tablet by mouth 2 times daily. Ascorbic Acid (VITAMIN C) 1000 MG tablet Take 1,000 mg by mouth Daily. aspirin 81 MG tablet Take 1 tablet by mouth Daily. atorvaSTATin (LIPITOR) 40 mg tablet Take 1 tablet by mouth nightly. Capsicum, Cayenne, (CAYENNE PEPPER PO) Take by mouth Daily. Coenzyme Q10 (COQ-10 PO) Take by mouth Daily. cyanocobalamin (VITAMIN B-12) 50 MCG tablet Take 50 mcg by mouth Daily. hydroCHLOROthiazide 25 mg tablet Take 1 tablet by mouth Daily. isosorbide mononitrate (IMDUR) 30 mg ER tablet Take 1 tablet by mouth Daily. levothyroxine (SYNTHROID, LEVOTHROID) 100 mcg tablet TAKE ONE TABLET BY MOUTH ONCE CLIVE Y IN THE MORNING BEFORE BREAKFAST magnesium, as oxide, (GNP MAGNESIUM) 250 MG tablet Take 500 mg by mouth 3 times daily. meclizine (ANTIVERT) 25 mg tablet Take 1 tablet by mouth every 6 hours as needed. metoprolol succinate (TOPROL-XL) 50 mg 24 hr tablet Take 1 tablet by mouth Daily. nitroglycerin (NITROSTAT) 0.[address] 1 tablet under the tongue every 5 sun velvet as needed for Chest pain. Nutritional Supplements (VITAMIN D MAINTENANCE PO) Take by mouth Daily. potassium 99 mg tablet Take 99 mg by mouth Daily. thyroid (NATURE-THROID, WESTHROID) 325 MG TABS Take 32.5 mg by mouth Daily. zinc sulfate 220 mg capsule Take 220 mg by mouth 2 times daily. ALLERGIES Chaya is allergic to iodine; red dye; diltiazem hcl; latex; and lidocaine. MEDICAL, SURGICAL, AND PERSONAL HISTORY Chaya has a past medical history of Benign paroxysmal positional vertigo (03/13/2014); Car otid artery stenosis (03/13/2014); CHF (congestive heart failure) ([facility]); Coronary artery dise ase; Hyperlipidemia; Hypertension; MO (myocardial infarction); Restless legs syndrome (RLS) (12/30/2010); and Thyroid disease. 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 Family History: Her family history includes Stroke in her mother. Social History: She reports that she has never smoked. She has never used smokeless tobac co. She reports that she drinks alcohol. She reports that she does not use drugs. ROS 12 point ROS was completed and is negative except for: Fatigue, weakness, blurred vision, n ausea, frequency of urine, dizziness CV: palpitations, chest pain described as pressure to left side of chest Resp: negative PHYSICAL EXAM BP 132/72 Comment: right | Pulse 76 Comment: regular | Ht 1.651 m (5' 5") | Wt 77.6 kg (17 1 lb) | BMI 28.46 kg/m Body mass index is 28.46 kg/m. GENERAL: Adult female accompanied by her daughter and comfortable in the exam room no acute distress HEENT: Head is normocephalic and nontraumatic Conjunctivae and lids are normal in appear ance. Mucous membranes are moist NECK: Supple no jugular vein distention seen. No carotid bruits. CHEST: Good inspiratory effort. Lungs are clear anteriorly and posteriorly with no crac kles, ronchi, or wheezes. CARDIAC: Regular rate and rhythm with normal S1 and S2. no murmur, no rubs or gallops. ABDOMEN: Soft, nondistended with normal, active bowel sounds. EXTREMITIES: No clubbing, cyanosis, nno edema. NEUROLOGIC: Patient is oriented to time, place, and person. Normal affect. SKIN: No rashes. LABS Lab Results Component Value Date CHOL 200 (H) 08/07/2017 TRIG 145 08/07/2017 HDL 63 08/07/2017 LDL 108 (H) 08/07/2017 ALT 27 08/24/2017 AST 20 08/24/2017 CREA 1.06 (H) 08/26/2017 K 3.8 08/26/2017 EKG Sinus rhythm no acute ST changes ME interval 166 ms, QTC 425 ms, QRS duration 112 ms Thank you for allowing me to participate in the care of this patient. If you have any ques tions, please do not hesitate to contact me. Signed by: ABBY Hawkins 10/03/2017, 14:55 Patient Care Team: Doug García MD as PCP - General (Pulmonary Disease) Erum Gerardo MD as Physician (Cardiology) Portions of this report were transcribed using voice recognition software. Every effort was made to ensure accuracy; however, inadvertent computerized first aid trainer errors may be pres ent usually taking the form of 'sound alike' substitutions or incorrect pronouns.Electronica lly signed by ABBY Morgan at 10/03/2017 3:40 PM PDTdocumented in this encounter Plan of Treatment Not on filedocumented as of this encounter Procedures + +--------+ + + + | Procedure Name | Priori | Date/Time | Associated Diagnosis | Comments | | | ty | | | | + +--------+ + + + | ECG 12 LEAD - PB | Routin | 10/03/2017 | Troponin level | Results for this | | | e | 11:00 AM | elevated | procedure are in the | | | | PDT | | results section. | + +--------+ + + + | ECG - EXTERNAL SCAN | | 10/03/2017 | | Results for this | | | | 12:00 AM | | procedure are in the | | | | PDT | | results section. | + +--------+ + + + documented in this encounter Results ECHO Complete (03/14/2018 9:46 AM PDT) + +--------+ + + + | Component | Value | Ref Range | Performed | Pathologist | | | | | At | Signature | + +--------+ + + + | LVEF-TTE | 55 | % | [facility] | | | TRANSTHORAC | | | | | | IC ECHO | | | | | + +--------+ + + + | BASELINE | 164/74 | mmHg | [facility] | | | BLOOD | | | | | | PRESSURE | | | | | + +--------+ + + + | Patient | 164lb | | [facility] | | | Weight | | | | | | (lbs) | | | | | + +--------+ + + + | Patient | 65in | | [facility] | | | Height | | | | | + +--------+ + + + | RA PRESSURE | 3 | mmHg | [facility] | | + +--------+ + + + | LVIDd | 3.85 | cm | [facility] | | + +--------+ + + + | FS | 32 | % | [facility] | | + +--------+ + + + | LA volume | 111 | mL | [facility] | | + +--------+ + + + | Ascending | 3.6 | cm | [facility] | | | aorta | | | | | + +--------+ + + + | AV | 316 | msec | [facility] | | | regurgitati | | | | | | on pressure | | | | | | 1/2 time | | | | | + +--------+ + + + | AV mean | 9 | mmHg | [facility] | | | gradient | | | | | + +--------+ + + + | Aortic | 1.56 | cm2 | [facility] | | | Valve Area | | | | | | by | | | | | | Continuity | | | | | | VTI | | | | | + +--------+ + + + | MV mean | 5 | mmHg | [facility] | | | gradient | | | | | + +--------+ + + + | MV Area by | 2.82 | cm2 | [facility] | | | P 1/2 | | | | | | method | | | | | + +--------+ + + + | MV Area by | 2.08 | cm2 | [facility] | | | Continuity | | | | | | Equation | | | | | + +--------+ + + + | PV peak | 2.17 | mmHg | [facility] | | | gradient | | | | | + +--------+ + + + | LVOT | 2 | cm | [facility] | | | diameter | | | | | + +--------+ + + + | LVOT peak | 102 | cm/s | [facility] | | | vane | | | | | + +--------+ + + + | LVOT peak | 22 | cm | [facility] | | | VTI | | | | | + +--------+ + + + | AV peak vane | 204 | cm/s | [facility] | | + +--------+ + + + | AV VTI | 44.4 | cm | [facility] | | + +--------+ + + + | AV peak | 16.65 | mmHg | [facility] | | | gradient | | | | | + +--------+ + + + | MV peak | 5.48 | mmHg | [facility] | | | gradient | | | | | + +--------+ + + + | MV Pressure | 78 | msec | [facility] | | | 1/2 time | | | | | + +--------+ + + + | LA Volume | 61 | mL/m2 | [facility] | | | Index | | | | | + +--------+ + + + | AV LVOT | 6 | mmHg | [facility] | | | Peak | | | | | | Gradient | | | | | + +--------+ + + + | AV LVOT | 2 | mmHg | [facility] | | | Mean | | | | | | Gradient | | | | | + +--------+ + + + | TR Peak | 38 | mmHg | [facility] | | | Gradient | | | | | + +--------+ + + + | TR Velocity | 307 | cm | [facility] | | + +--------+ + + + | PI Peak | 73.7 | cm/s | [facility] | | | Velocity | | | | | + +--------+ + + + | LV | 62 | % | [facility] | | | [place]aver[place]'s | | | | | | Biplane EF | | | | | + +--------+ + + + | LV ED | 89.34 | ml | [facility] | | | Volume | | | | | | ([place]aver[place]'s) | | | | | + +--------+ + + + | LV ED | 49 | ml/m2 | [facility] | | | Volume | | | | | | Index | | | | | + +--------+ + + + | LV ES | 34.12 | ml | [facility] | | | Volume | | | | | + +--------+ + + + | LVOT Mean | 74.7 | cm/s | [facility] | | | Velocity | | | | | + +--------+ + + + | RVSP | 41 | mmHg | [facility] | | | Estimated | | | | | + +--------+ + + + | MV E' | 5.33 | cm/s | [facility] | | | Lateral | | | | | | Velocity | | | | | + +--------+ + + + | MV E' | 4.79 | cm/s | [facility] | | | Septal | | | | | | Velocity | | | | | + +--------+ + + + | MV | 557 | cm/s2 | [facility] | | | Deceleratio | | | | | | n [place] | | | | | + +--------+ + + + | MV | 218 | msec | [facility] | | | Deceleratio | | | | | | n Time | | | | | + +--------+ + + + | MV E/A | 1.03 | | [facility] | | | Ratio | | | | | + +--------+ + + + | MV Mean | 104 | cm/s | [facility] | | | Velocity | | | | | + +--------+ + + + | MV Peak | 114 | cm/s | [facility] | | | A-Wave | | | | | + +--------+ + + + | MV Peak | 117 | cm/s | [facility] | | | E-Wave | | | | | + +--------+ + + + | AV Mean | 138 | cm/s | [facility] | | | Velocity | | | | | + +--------+ + + + | LA/Aorta | 1.52 | | [facility] | | | Ratio | | | | | + +--------+ + + + | LA Area | 30.4 | cm2 | [facility] | | + +--------+ + + + | LA Systolic | 29.44 | mmHg | [facility] | | | Pressure | | | | | + +--------+ + + + | MV E/E | 24.43 | | [facility] | | | SEPTAL | | | | | + +--------+ + + + | MV E/E | 21.95 | | [facility] | | | LATERAL | | | | | + +--------+ + + + | LA Major | 0.444 | cm | [facility] | | + +--------+ + + + | LV ES | 19 | ml/m2 | [facility] | | | Volume | | | | | | Index | | | | | + +--------+ + + + | Heart Rate | 72 | | [facility] | | + +--------+ + + + | Aortic Root | 2.9 | cm | [facility] | | | Diameter | | | | | + +--------+ + + + | IVS | 1.54 | cm | [facility] | | | Diastolic | | | | | | Thickness | | | | | | MM | | | | | + +--------+ + + + | LVPW | 1.49 | cm | [facility] | | | Diastolic | | | | | | Thickness | | | | | | MM | | | | | + +--------+ + + + | IVS | 1.78 | cm | [facility] | | | Systolic | | | | | | Thickness | | | | | | MM | | | | | + +--------+ + + + | LV Systolic | 2.62 | cm | [facility] | | | Diameter | | | | | | MM | | | | | + +--------+ + + + | LVPW | 1.96 | cm | [facility] | | | Systolic | | | | | | Thickness | | | | | | MM | | | | | + +--------+ + + + | LA Systolic | 4.4 | cm | [facility] | | | Diameter | | | | | | MM | | | | | + +--------+ + + + + + | Specimen | + + | | + + + + + | Narrative | Performed At | + + + | 1. The left | [facility] | | ventricle is normal in size. Moderate concentric LVH. The visually | | | estimated LV ejection fraction is 55%.2. The right ventricle is | | | normal in size and systolic function.3. Mild calcific aortic | | | stenosis. Mild aortic regurgitation.4. Mild calcific mitral | | | stenosis. Moderate mitral regurgitation.5. Estimated PA systolic | | | pressure is 41 mmHg. Comment: Compared to the prior study dated | | | August 2017, mild pulmonary hypertension is now noted. | | |hypertension is now noted. | | + + + + +---------+ + + | Performing | Address | City/State/Zipcode | Phone Number | | Organization | | | | + +---------+ + + | [facility] | | | | + +---------+ + + ECG 12 lead (10/03/2017 11:00 AM PDT) + + + | Narrative | Performed At | + + + | Heriberto Perrin, [employer] 10/03/2017 11:36 Please see | | | provider's progress note for EKG interpretation. | | + + + ECG - EXTERNAL SCAN (10/03/2017 12:00 AM PDT) + + + | Narrative | Performed At | + + + | Ordered by an | | | unspecified provider. | | + + + documented in this encounter Visit Diagnoses + + | Diagnosis | + + | Troponin level elevated - Primary Other abnormal blood chemistry | + + | Coronary artery disease involving coronary bypass graft of cher[place]ae [place] heart with unstable | | angina pectoris (HCC) | + + | Paroxysmal atrial fibrillation (HCC) Atrial fibrillation | + + | Benign essential hypertension Essential hypertension, benign | + + | Chronic diastolic CHF (congestive heart failure), NYHA class 2 (HCC) | + + | Hyperlipidemia, unspecified hyperlipidemia type | + + | Acquired hypothyroidism Unspecified hypothyroidism | + + documented in this encounter
--- OUTSIDE RECORDS SUMMARY | ~2019-07-30 | XMS | Encounter Summary ---
Demographics + + + | Address | [address] | | | [place] [address] | + + + | Home Phone | | + + + | Preferred Language | Unknown | + + + | Marital Status | | + + + | Mormon Affiliation | 1001 | + + + | Race | Unknown | + + + | Ethnic Group | Unknown | + + + Author + + + | Author | [facility] | | | and [place] | + + + | Organization | [facility] | | | [...] Team Providers + +------+ + | Care Ballistics Expert Name | Role | Phone | + +------+ + | Doug García MD | PCP | | + +------+ + Reason for Visit + + + | Reason | Comments | + + + | Recall For Services | Services Due | | (DMST) | | + + + | Annual Exam | OV-BP | + + + | Colon Cancer | Colonoscopy | | Screening | | + + + Encounter Details +--------+ + + + + | Date | Type | Department | Care Team | Description | +--------+ + + + + | 10/03/ | Patient | Alejandra HOLLINS | Doug García MD | [facility] | | 2017 | Outreach | [facility] [employer] | [address] | Conditions | | | | Internal Medicine | [place] [address] | | | | | [address] [facility] | [phone] | | | | | [place], [place] | | | | | | [address] | | | | | | [phone] | | | +--------+ + + + [...]
--- OUTSIDE RECORDS SUMMARY | ~2019-07-30 | XMS | Encounter Summary ---
Demographics + + + | Address | [address] | | | [place] [address] | + + + | Home Phone | | + + + | Preferred Language | Unknown | + + + | Marital Status | | + + + | Yazidism Affiliation | 1001 | + + + | Race | Unknown | + + + | Ethnic Group | Unknown | + + + Author + + + | Author | [facility] | | | and [place] | + + + | Organization | [facility] | | | [...] Team Providers + +------+ + | Care Operating Room Surgical Technologist Name | Role | Phone | + +------+ + PCP | Unavailable | + +------+ + Reason for Visit + + + | Reason | Comments | + + + | Hypertension | | + + + Encounter Details +--------+ + + + + | Date | Type | Department | Care Team | Description | +--------+ + + + + | 06/25/ | Telephone | Alejandra HOLLINS | Doug García MD | Hypertension | | 2012 | | [facility] | [address] | | | | | Internal Medicine | [place] [address] | | | | | [address] [facility] | [phone] | | | | | [place], [place] | | | | | | [address] | | | | | | [phone] | | | +--------+ + + + [...]
--- OUTSIDE RECORDS SUMMARY | ~2019-07-30 | XMS | Encounter Summary ---
Demographics + + + | Address | [address] | | | [place] [address] | + + + | Home Phone | | + + + | Preferred Language | Unknown | + + + | Marital Status | | + + + | Mandaen Affiliation | 1001 | + + + | Race | Unknown | + + + | Ethnic Group | Unknown | + + + Author + + + | Author | [facility] | | | and [place] | + + + | Organization | [facility] | | [...] Team Providers + +------+ + | Care Plate Glass Polisher Name | Role | Phone | + +------+ + | Doug García MD | PCP | | + +------+ + Encounter Details +--------+ + + + + | Date | Type | Department | Care Team | Description | +--------+ + + + + | 10/15/ | Hospital | [facility] | Adonis Calhoun MD | Herniation of lumbar | | 2019 | Encounter | [facility] | [address] | intervertebral disc | | | | CLINICAL DECISION | [place], | without myelopathy; | | | | [address] | [place] [address] | Degenerative lumbar | | | | [place], [place] | [phone] | spinal stenosis; | | | | [address] | | Lumbar | | | | [phone] | | radiculopathy; | | | | | | Weakness of left | | | | | | lower extremity; | | | | | | Pre-op exam | +--------+ + + + + Social [...] + + + | Blood Pressure | 185/79 | 10/15/2018 2:40 PM | | | | | PDT | | + + + + + | Pulse | 76 | 10/15/2018 2:40 PM | | | | | PDT | | + + + + + | Temperature | 35.9 C (96.7 F) | 10/15/2018 2:40 PM | | | | | PDT | | + + + + + | Respiratory Rate | 16 | 10/15/2018 2:40 PM | | | | | PDT | | + + + + + | Oxygen Saturation | - | - | | + + + + + | Inhaled Oxygen | - | - | | | Concentration | | | | + + + + + | Weight | 70 kg (154 lb 5.1 | 10/15/2018 2:40 PM | | | | oz) | PDT | | + + + + + | Height | 165.1 cm (5' 5") | 10/15/2018 2:40 PM | | | [...] documented as of this encounter Progress Notes Conversion Transaction, Provider Unknown - 10/15/2018 4:02 PM PDTFormatting of this note m ight be different from the original. Nurse Progress Note by Rosa Beckman RN at 10/15/181601 Author: Rosa Beckman RN Service: (none) Author Type: Registered Nurse Filed: 10/15/181602 Date of Service: 10/15/181601 Status: Signed Snaker Tractor Driver: Rosa Beckman RN (Registered Nurse) All discharge criteria met patient ate, walked, and peed with site C/D/I Discharge instruct ions discussed with patient and family. All questions and concerns answered. Patient stable at time of discharge. IV removed and bandage applied. All belongings with patient. Patient d ischarged via wheelchair to private vehicle with family. onver marv Transaction, Provider Unknown - 10/15/2018 1:37 PM PDT Pharmacy Note by Rhys Jansen RPH at 10/15/181336 Author: Rhys Jansen RPH Service: Pharmacy Author Type: Pharmacist Filed: 10/15/181336 Date of Service: 10/15/181336 Status: Signed Snaker Tractor Driver: Rhys Jansen RPH (Pharmacist) Renal Dosing Monitoring: Chaya Chan 77 y.o. female Pharmacy dosing for renal function per ABBY Marquez Serum creatinine: 0.9 mg/dL 10/01/18 1220 Estimated creatinine clearance: 51.4 mL/min Plan per protocol: No medications need adjustment at this time Pharmacy will continue to monitor changes in medication orders and renal function and will adjust accordingly. 10/15/2018 1:37 PM Pharmacist: Rhys Jansen onver marv Transaction, Provider Unknown - 10/15/2018 12:11 PM PDT Nurse Progress Note by Lorena Luque RN at 10/15/18 1211 Author: Lorena Luque RN Service: Anesthesiology Author Type: Registered Nurse Filed: 10/15/187 Date of Service: 10/15/181210 Status: Signed Snaker Tractor Driver: Lorena Luque RN (Registered Nurse) Patient complained of chest pain states she had pain like this with her past heart attacks. Applied nasal cannula 4 liters notified anesthesia orders received ekg ordered and labetalo l 5mg given iv. Rated the pain a 3/10 like tightening in chest. Patients pain subsided just an ekg was being performed. Anesthesia will be back to read the ekg. docume nted in this encounter Plan of Treatment Not on filedocumented as of this encounter Procedures + +--------+ + + + | Procedure Name | Priori | Date/Time | Associated Diagnosis | Comments | | | ty | | | | + +--------+ + + + | ECG 12 LEAD | Routin | 10/15/2018 | | Results for this | | | e | 12:13 PM | | procedure are in the | | | | PDT | | results section. | + +--------+ + + + | FL C ARM < 1 HOUR | Routin | 10/15/2018 | | Results for this | | | e | 11:42 AM | | procedure are in the | | | | PDT | | results section. | + +--------+ + + + | EXTERNAL LAB: CBC | Routin | 10/01/2018 | | Results for this | | | e | 12:20 PM | | procedure are in the | | | | PDT | | results section. | + +--------+ + + + | MRSA NAAT | SHAWN | 10/01/2018 | | Results for this | | | | 12:20 PM | | procedure are in the | | | | PDT | | results section. | + +--------+ + + + | PTT | Routin | 10/01/2018 | | Results for this | | | e | 12:20 PM | | procedure are in the | | | | PDT | | results section. | + +--------+ + + + | PROTIME INR | Routin | 10/01/2018 | | Results for this | | | e | 12:20 PM | | procedure are in the | | | | PDT | | results section. | + +--------+ + + + | BASIC METABOLIC | Routin | 10/01/2018 | | Results for this | | PANEL | e | 12:20 PM | | procedure are in the | | | | PDT | | results section. | + +--------+ + + + documented in this encounter Results ECG 12 lead (10/15/2018 12:13 PM PDT) + + + + + + | Component | Value | Ref Range | Performed | Pathologist | | | | | At | Signature | + + + + + + | DIAGNOSIS: | Normal sinus rhythmLeft | | EXTERNAL | | | | axis deviationLeft | | LAB | | | | ventricular hypertrophy | | | | | | with QRS | | | | | | wideningProlonged | | | | | | QTAbnormal ECGConfirmed | | | | | | by Juanito Palma MD | | | | | | ([phone]) on 10/15/2018 | | | | | | 5:05:57 PM | | | | + + + + + + + + | Specimen | + + | | + + + + + | Narrative | Performed At | + + + | Historically converted procedure from [facility] Epic environment | EXTERNAL LAB | + + + + +---------+ + + | Performing | Address | City/State/Zipcode | Phone Number | | Organization | | | | + +---------+ + + | EXTERNAL LAB | | | | + +---------+ + + FL C-Arm < 1 Hour (10/15/2018 11:42 AM PDT) + + | Specimen | + + | | + + + + + | Impressions | Performed At | + + + | Localization at the level of L4-5 for microdiscectomy. Signed by: | | | Daniele [place], Antolin Sign Date/Time: 10/15/2018 1:29 PM | | + + + + + + | Narrative | Performed At | + + + | C-ARM <60 W/FLUORO CLINICAL INFORMATION: Lumbar - Micro Disc - | | | Laminectomy-Left L4/5 FINDINGS: 7.6 seconds of fluoroscopy was | | | utilized by Dr. Adonis Calhoun during surgery. Surgical localization | | | is noted at the level of L4-5. Total number of images: 2. | | + + + + + | Procedure Note | + + | Carlos Martínez Conversion - 02/26/2019 11:12 PM PDT C-ARM <60 W/FLUORO | | CLINICAL INFORMATION: | | Lumbar - Micro Disc - Laminectomy-Left L4/5 | | FINDINGS: | | 7.6 seconds of fluoroscopy was utilized by Dr. Adonis Calhoun during | | surgery. | | Surgical localization is noted at the level of L4-5. | | Total number of images: 2. | | IMPRESSION: | | Localization at the level of L4-5 for microdiscectomy. | | Signed by: Daniele Boston Richard | | Sign Date/Time: 10/15/2018 1:29 PM | + + MRSA NAAT (10/01/2018 12:20 PM PDT) + + | Specimen | + + | | + + + + + | Narrative | Performed At | + + + | SOURCE NARES(NOSE) MRSA | EXTERNAL LAB | | PCR NEGATIVE Testing | | | performed at [facility];[address] [place] [address];[place] [address] | | + + + + +---------+ + + | Performing | Address | City/State/Zipcode | Phone Number | | Organization | | | | + +---------+ + + | EXTERNAL LAB | | | | + +---------+ + + PTT (10/01/2018 12:20 PM PDT) + + + + + + | Component | Value | Ref Range | Performed | Pathologist | | | | | At | Signature | + + + + + + | aPTT, | 25Comment: Testing | 23 - 32 seconds | EXTERNAL | | | Patient | performed at [facility];[address] | [address] | | | | [address];[place] | | | | | | [address] | | | | + + + + + + + + | Specimen | + + | | + + + +---------+ + + | Performing | Address | City/State/Zipcode | Phone Number | | Organization | | | | + +---------+ + + | EXTERNAL LAB | | | | + +---------+ + + Protime INR (10/01/2018 12:20 PM PDT) + + + + + + | Component | Value | Ref Range | Performed | Pathologist | | | | | At | Signature | + + + + + + | INR | 1.0Comment: REFERENCE | | EXTERNAL | | | | RANGE:0.9 - 1.2 | | LAB | | | | NON-ANTICOAGULATED2.0 | | | | | | - 3.0 ALL OTHER | | | | | | THERAPEUTIC | | | | | | INDICATIONS2.5 - 3.5 | | | | | | MECHANICAL HEART VALVES, | | | | | | RECURRENT OR SYSTEMIC | | | | | | EMBOLISMTesting | | | | | | performed at [facility] | | | | | | [facility];[place], [place] | | | | | | [address] | | | | + + + + + + + + | Specimen | + + | | + + + +---------+ + + | Performing | Address | City/State/Zipcode | Phone Number | | Organization | | | | + +---------+ + + | EXTERNAL LAB | | | | + +---------+ + + External Lab: CBC (10/01/2018 12:20 PM PDT) + + + + + + | Component | Value | Ref Range | Performed | Pathologist | | | | | At | Signature | + + + + + + | WBC | 4.80 | 3.80 - 11.00 | EXTERNAL | | | | | K/uL | LAB | | + + + + + + | RED CELL | 3.87 | 3.70 - 5.10 | EXTERNAL | | | COUNT | | M/uL | LAB | | + + + + + + | Hgb | 12.5 | 11.3 - 15.5 | EXTERNAL | | | | | g/dL | LAB | | + + + + + + | Hematocrit, | 37.3 | 34.0 - 46.0 % | EXTERNAL | | | POC | | | LAB | | + + + + + + | MCV | 96.5 | 80.0 - 100.0 fl | EXTERNAL | | | | | | LAB | | + + + + + + | MCH | 32.2 | 27.0 - 34.0 pg | EXTERNAL | | | | | | LAB | | + + + + + + | MCHC | 33.4 | 32.0 - 35.5 | EXTERNAL | | | | | g/dL | LAB | | + + + + + + | RDW-CV | 47.7 | 37 - 53 fl | EXTERNAL | | | | | | LAB | | + + + + + + | Platelet | 163 | 150 - 400 K/uL | EXTERNAL | | | Count | | | LAB | | | Plasma | | | | | + + + + + + | MPV | 10.3 | fl | EXTERNAL | | | | | | LAB | | + + + + + + | Differentia | AUTOMATED | | EXTERNAL | | | l Type | | | LAB | | + + + + + + | % Segmented | 74.36 | % | EXTERNAL | | | | | | LAB | | | Neutrophils | | | | | + + + + + + | % | 17.00 | % | EXTERNAL | | | Lymphocytes | | | LAB | | + + + + + + | % Monocytes | 6.20 | % | EXTERNAL | | | | | | LAB | | + + + + + + | % | 1.89 | % | EXTERNAL | | | Eosinophils | | | LAB | | + + + + + + | % Basophils | 0.55 | % | EXTERNAL | | | | | | LAB | | + + + + + + | Absolute | 3.57 | 1.90 - 7.40 | EXTERNAL | | | Segmented | | K/uL | LAB | | | Neutrophils | | | | | + + + + + + | Absolute | 0.82 (L) | 1.00 - 3.90 | EXTERNAL | | | Lymphocytes | | K/uL | LAB | | + + + + + + | Absolute | 0.30 | 0.00 - 0.80 | EXTERNAL | | | Monocytes | | K/uL | LAB | | + + + + + + | Absolute | 0.09 | 0.00 - 0.50 | EXTERNAL | | | Eosinophils | | K/uL | LAB | | + + + + + + | Absolute | 0.03Comment: Testing | 0.00 - 0.10 | EXTERNAL | | | Basophils | performed at [facility], [address] | K/uL | LAB | | | | [address], | | | | | | [place] [address] | | | | + + + + + + + + | Specimen | + + | | + + + +---------+ + + | Performing | Address | City/State/Zipcode | Phone Number | | Organization | | | | + +---------+ + + | EXTERNAL LAB | | | | + +---------+ + + Basic Metabolic Panel (10/01/2018 12:20 PM PDT) + + + + + + | Component | Value | Ref Range | Performed | Pathologist | | | | | At | Signature | + + + + + + | Na | 139 | 135 - 145 | EXTERNAL | | | | | mmol/L | LAB | | + + + + + + | K | 4.0 | 3.5 - 4.9 | EXTERNAL | | | | | mmol/L | LAB | | + + + + + + | Cl | 100 | 99 - 109 mmol/L | EXTERNAL | | | | | | LAB | | + + + + + + | CO2 | 30 | 23 - 32 mmol/L | EXTERNAL | | | | | | LAB | | + + + + + + | Anion Gap | 13 | 5 - 20 mmol/L | EXTERNAL | | | | | | LAB | | + + + + + + | Glucose, | 85 | 65 - 99 mg/dL | EXTERNAL | | | Fasting | | | LAB | | + + + + + + | BUN | 20 | 8 - 25 mg/dL | EXTERNAL | | | | | | LAB | | + + + + + + | Creatinine | 0.9 | 0.50 - 1.00 | EXTERNAL | | | | | mg/dL | LAB | | + + + + + + | BUN/Creatin | 22 | | EXTERNAL | | | ine Ratio | | | LAB | | + + + + + + | Calcium | 9.7 | 8.5 - 10.5 | EXTERNAL | | | | | mg/dL | LAB | | + + + + + + | Estimated | >60Comment: GFR <60: | mL/min/1.73m2 | EXTERNAL | | | GFR | CHRONIC KIDNEY DISEASE, | | LAB | | | | IF FOUND OVER A 3 MONTH | | | | | | PERIOD.GFR <15: KIDNEY | | | | | | FAILURE.FOR | | | | | | AMERICANS, MULTIPLY THE | | | | | | CALCULATED GFR BY | | | | | | 1.210.This eGFR is | | | | | | calculated using the | | | | | | MDRD IDMS traceable | | | | | | equation.Testing | | | | | | performed at [facility], [address] | | | | | | [facility], | | | | | | [place] [address] | | | | + + + [...] + | Diagnosis | + + | 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
--- OUTSIDE RECORDS SUMMARY | ~2019-07-30 | XMS | Encounter Summary ---
Demographics + + + | Address | [address] | | | [place] [address] | + + + | Home Phone | | + + + | Preferred Language | Unknown | + + + | Marital Status | | + + + | Christian Affiliation | 1001 | + + + [...] Team Providers + +------+ + | Care Manager Resort Name | Role | Phone | + [...] | | [facility] | [address] | | | | | Internal Medicine | [place] [address] | | | | | [address] [facility] | [phone] | | | | | [place], [place] | | | | | | [address] | | | | | | [phone] | | | +--------+ + + + [...]
--- OUTSIDE RECORDS SUMMARY | ~2019-07-30 | XMS | Encounter Summary ---
Demographics + + + | Address | [address] | | | [place] [address] | + + + | Home Phone | | + + + | Preferred Language | Unknown | + + + | Marital Status | | + + + | Episcopalian Affiliation | 1001 | + + + | Race | Unknown | + + + | Ethnic Group | Unknown | + + + Author + + + | Author | [facility] | | | and [place] | + + + | Organization | [facility] | | [...] Team Providers + +------+ + | Care Hyperbaric Technologist Name | Role | Phone | + +------+ + PCP | Unavailable | + +------+ + Encounter Details +--------+ + + + + | Date | Type | Department | Care Team | Description | +--------+ + + + + | 03/13/ | Hospital | [facility] [place] | Doug García MD | | | 2011 | Encounter | [facility] | [address] | | | | | [address] | [place] [address] | | | | | [place], [place] | [phone] | | | | | [address] | | | | | | [phone] | | | +--------+ + + + [...] | 0 | 04/06/20 | | | Xehoxdq-Iwopxq-II | | | | 11 | 4 | | ( VITAMIN B | | | | | | | 50/B-COMPLEX) TABS | | | | | | + + + +---------+ + + | clopidogrel | Take 75 mg by mouth | | 0 | 12/26/19 | | | (PLAVIX) 75 mg | Daily. | | | 12 | 3 | | tablet | | | | [...]
--- OUTSIDE RECORDS SUMMARY | ~2019-07-30 | XMS | Encounter Summary ---
Demographics + + + | Address | [address] | | | [place] [address] | + + + | Home Phone | | + + + | Preferred Language | Unknown | + + + | Marital Status | | + + + | Druze Affiliation | 1001 | + + + | Race | Unknown | + + + | Ethnic Group | Unknown | + + + Author + + + | Author | [facility] | | | and [place] | + + + | Organization | [facility] | | | and [place] | + + + | Address | Unknown | + + + | Phone | Unavailable | + + + Support + + +---------+ + | Name | Relationship | Address | Phone | + + +---------+ + | Kimberly Lyon | ECON | Unknown | | + + +---------+ + | Frances Millie | ECON | Unknown | | + + +---------+ + Care Team Providers + +------+ + | Care Athletic Events Scorer Name | Role | Phone | + +------+ + PCP | Unavailable | + +------+ + Encounter Details +--------+ + + + + | Date | Type | Department | Care Team | Description | +--------+ + + + + | 12/06/ | Hospital | [facility] | ChristiansonFly, | | | 2012 - | Encounter | [facility] | [address] | | | | | CARDIAC TRANSPLANT | [address] [place], | | | 12/10/ | | [address] | [place] [address] | | | 2011 | | [place], [place] | [phone] | | | | | [address] | | | | | | [phone] | Steven Dyer MD | | | | | | [address] | | | | | | [address] [place], | | | | | | [place] [address] | | | | | | [phone] | | | | | | | [...] documented as of this encounter Discharge Summaries Jered Goldstein ARNP - 05/21/2013 8:11 PM PST PATIENT NAME: MARKIE PINTO Sex/Age: F / 71Y : 1940 ADMISSION DATE: 12/07/2011 DISCHARGE DATE: 12/11/2011 [id number] / [id number] ADMITTING DIAGNOSIS: 1. Non-ST elevated myocardial infarction. 2. Hypertensive urgency. DISCHARGE DIAGNOSIS: 1. Coronary artery disease. a. Non-ST elevated myocardial infarction, medical treatment b. Non-ST elevated myocardial infarction in 03/2011 with subsequent thrombectomy and balloon angioplasty. c. History of non-ST elevated myocardial infarction, circumflex in 2005 d. Left ventricular ejection fraction 40%. 2. Hypertension. 3. Transient heart block and bradycardia 03/2011 and 12/10/2011, in the setting of IV contrast. 4. Dyslipidemia. 5. Hypothyroidism. 6. Rheumatic fever as a child. 7. History of noncompliance with medication. 8. Cerebrovascular disease and chronic lacunar infarct per non-contrast CT scan 11/29/2011. PROCEDURE: Dr. Fly Christianson, [facility] 12/10/2011 performed: 1. Left heart catheterization 2. Coronary angiogram 3. Left ventriculogram CONCLUSION: 1. Occluded circumflex with good collaterals. 2. Left ventricular ejection fraction 50% 3. Medical treatment recommended. COURSE OF HOSPITAL STAY: The patient is a 71-year-old woman with a known history of lo ry artery disease and was transferred to [facility] with chest pain and po sitive troponin. The patient's blood pressure on arrival to the emergency department was 21 4/128. She was given labetalol 20 mg with marked improvement. She was placed on heparin Tri dil drip and admitted to a monitored bed. She was chest pain free on arrival to the emerge ncy department. Due to a long history of noncompliance, it was decided to approach this con servatively, and she underwent and a single isotope nuclear stress test the following day. The myocardial perfusion MARKIE PINTO ADM:12/07/11 [id number] 12/11/11 DIS IN DISCHARGE SUMMARY [id number] [facility] ONI DavilaP ES B [facility] Fly Christianson MD, [facility] B THIS REPORT IS CONFIDENTIAL AND NOT TO BE RELEASED WITHOUT PROPER AUTHORIZATION. [facility] scan was positive for ischemia and she underwent a left heart catheterization as described above. Later in the day, after the heart catheterization, the patient experienced nausea a nd vomiting, second-degree Mobitz type II heart and a 9 seconds pause. She had the same exp erience when she had a previous heart catheterization in 03/2011. Her Atenolol was discontinued and her Norvasc and lisinopril were increased for blood pres sure control and heart disease. Later on in the evening, the patient started to complain about double vision. She denied a ny headache. There was no facial droop or deficit in motor strength. Pupils were equal and reactive. The complaint continued the following day with no changes. The patient underwent a non-contrast CT scan, this demonstrated extensive small vessel ischemic changes and a ch ronic lacunar infarct; also, a nonspecific lucent lesion involving the left parietal bone, which could represent a hemangioma. DISCHARGE CONDITION AND DISPOSITION: The patient was discharged home in stable condition. DISCHARGE EXAMINATION: VITAL SIGNS: Blood pressure 146/79, heart rate 66 and regular, sinus rhythm per monitor. D ischarge weight 81.20 kg. LABORATORY DATA: Sodium 139, potassium 3.8, creatinine 0.98, BUN 18, hemoglobin 11.3, ana luisa tocrit 33. WBC 4.9, platelets 144,000. Cholesterol 165, HDL 46, LDL 97, triglycerides 109, and troponin max 2.54 with a normal total CK. DISCHARGE MEDICATIONS: 1. Norvasc 10 mg daily 2. Aspirin 81 mg daily. 3. Plavix 75 mg daily. 4. Imdur 30 mg daily. 5. Synthroid 100 mcg daily. 6. Lisinopril 20 mg daily. 7. Magnesium oxide 100 mg daily 8. Simvastatin 23 mg at bedtime. DISCHARGE AND FOLLOWUP PLAN: 1. Discharged to home. 2. Followup with primary care physician, Dr. 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 [facility] treatment for hypertension. 3. The patient will followup with Dr. Erum Gerardo at [place] [facility] in 4 to 6 w eeks, sooner if she experiences any problems. 4. The patient will continue on Plavix and as pirin, and has been strongly advised to adhere to her medication regimen with knowledge arnel t her double vision could be a consequence of extremely high blood pressure. ABBY Braxton MD P A VT/dkm #[id number] cc: MD Fly Lainez MD Michael E. Ring, MD Vera Talseth, ARNP Electronically Signed 12/19/11 1627 ABBY [facility]ila Electronically Signed 12/21/11 1443 Fly Christianson MD, [facility] MARKIE PINTO ADM:12/07/11 [id number] 12/11/11 DIS IN DISCHARGE SUMMARY [id number] [facility] ABBY Davila [facility] Fly Christianson MD, FAC B THIS REPORT IS CONFIDENTIAL AND NOT TO BE RELEASED WITHOUT PROPER AUTHORIZATION.Electronica lly signed by ABBY Braxton at 12/19/2011 4:27 PM PDTdocumented in this encounter Medications at Time of [...] | 0 | 04/06/20 | | | [facility] | | | | 11 | 4 [...] | + +--------+ + + + | CT HEAD WO CONTRAST | | 12/11/2011 | | Results for this | | | | 11:03 AM | | procedure are in the | | | | PDT | | results section. | + +--------+ + + + | PTT | Routin | 12/11/2011 | | Results for this | | | e | 3:58 AM | | procedure are in the | | | | PDT | | results section. | + +--------+ + + + | PTT | Routin | 12/10/2011 | | Results for this | | | e | 4:07 AM | | procedure are in the | | | | PDT | | results section. | + +--------+ + + + | CBC NO DIFFERENTIAL | Routin | 12/10/2011 | | Results for this | | | e | 4:07 AM | | procedure are in the | | | | PDT | | results section. | + +--------+ + + + | BASIC METABOLIC | Routin | 12/10/2011 | | Results for this | | PANEL | e | 4:07 AM | | procedure are in the | | | | PDT | | results section. | + +--------+ + + + | NM MYOCARDIAL | | 12/09/2011 | | Results for this | | PERFUSION MULT SPECT | | 1:49 PM | | procedure are in the | | | | PDT | | results section. | + +--------+ + + + | NM CARDIOVASCULAR | | 12/09/2011 | | Results for this | | STRESS TEST | | 1:48 PM | | procedure are in the | | (NON-NUCLEAR) | | PDT | | results section. | + +--------+ + + + | POC GLUCOSE | Routin | 12/09/2011 | | Results for this | | | e | 10:53 AM | | procedure are in the | | | | PDT | | results section. | + +--------+ + + + | PTT | Routin | 12/09/2011 | | Results for this | | | e | 8:30 AM | | procedure are in the | | | | PDT | | results section. | + +--------+ + + + | PTT | Routin | 12/09/2011 | | Results for this | | | e | 2:06 AM | | procedure are in the | | | | PDT | | results section. | + +--------+ + + + | EXTRA HOLD TUBE(S) | Routin | 12/08/2011 | | Results for this | | | e | 7:20 PM | | procedure are in the | | | | PDT | | results section. | + +--------+ + + + | PTT | Routin | 12/08/2011 | | Results for this | | | e | 7:20 PM | | procedure are in the | | | | PDT | | results section. | + +--------+ + + + | PTT | Routin | 12/08/2011 | | Results for this | | | e | 1:05 PM | | procedure are in the | | | | PDT | | results section. | + +--------+ + + + | LIPID PANEL | Routin | 12/08/2011 | | Results for this | | | e | 5:40 AM | | procedure are in the | | | | PDT | | results section. | + +--------+ + + + | TROPONIN I | Routin | 12/08/2011 | | Results for this | | | e | 5:40 AM | | procedure are in the | | | | PDT | | results section. | + +--------+ + + + | PTT | Routin | 12/08/2011 | | Results for this | | | e | 5:40 AM | | procedure are in the | | | | PDT | | results section. | + +--------+ + + + | CK TOTAL | Routin | 12/08/2011 | | Results for this | | | e | 5:40 AM | | procedure are in the | | | | PDT | | results section. | + +--------+ + + + | XR CHEST PA OR AP | | 12/07/2011 | | Results for this | | | | 7:53 PM | | procedure are in the | | | | PDT | | results section. | + +--------+ + + + | TROPONIN I | Routin | 12/07/2011 | | Results for this | | | e | 7:36 PM | | procedure are in the | | | | PDT | | results section. | + +--------+ + + + | COMPREHENSIVE | Routin | 12/07/2011 | | Results for this | | METABOLIC PANEL | e | 7:36 PM | | procedure are in the | | | | PDT | | results section. | + +--------+ + + + | EXTRA HOLD TUBE(S) | Routin | 12/07/2011 | | Results for this | | | e | 7:35 PM | | procedure are in the | | | | PDT | | results section. | + +--------+ + + + | PTT | Routin | 12/07/2011 | | Results for this | | | e | 7:35 PM | | procedure are in the | | | | PDT | | results section. | + +--------+ + + + | PROTIME INR | Routin | 12/07/2011 | | Results for this | | | e | 7:35 PM | | procedure are in the | | | | PDT | | results section. | + +--------+ + + + | CBC WITH | Routin | 12/07/2011 | | Results for this | | DIFFERENTIAL | e | 7:35 PM | | procedure are in the | | | | PDT | | results section. | + +--------+ + + + documented in this encounter Results CT Head wo Contrast (12/11/2011 11:03 AM PDT) + + | Specimen | + + | | + + + + + | Narrative | Performed At | + + + | Exam Performed Location: [facility] CT HEAD | MISCELANIOUS | | WITHOUT CONTRAST CLINICAL INFORMATION: Patient with dizziness and | LAB | | double vision. COMPARISON: None. PROCEDURE: Axial images | | | were obtained through the brain without IV contrast. Sagittal and | | | coronal reformations. FINDINGS: There is extensive patchy and | | | confluent hypoattenuation involving the subcortical, periventricular | | | and deep white matter. The appearance is consistent with severe | | | small vessel ischemic changes. There are chronic lacunar infarcts | | | involving the right caudate head and right lentiform nucleus. | | | There is no evidence of an intra or extra-axial mass or mass effect. | | | There is no evidence of hydrocephalus or cerebral edema. There | | | is no evidence of intracranial hemorrhage. There is mild diffuse | | | age related atrophy. There are extensive atherosclerotic | | | calcifications involving the vertebral arteries and internal carotid | | | arteries. The neural calvarium is intact. This is nonspecific. | | | This could represent a hemangioma. IMPRESSION: 1. No | | | evidence of mass effect, acute hemorrhage or definite acute cortical | | | infarct. 2. Extensive small vessel ischemic changes and chronic | | | lacunar infarct. 3. Mild diffuse age related atrophy. 4. | | | Nonspecific lucent lesion involving the left parietal bone, which | | | could represent a hemangioma. S: SQ ([id number]) Signed by: TESSA Duenas | | | MD LOULOU | | + + + + + | Procedure Note | + + | Mauricio, Rad Conversion - 05/09/2013 9:08 AM PDT [facility] WITHOUT CONTRAST[facility]INICAL INFORMATION:Patient with dizziness and | | double vision.COMPARISON:None.PROCEDURE:Axial images were obtained through the brain | | without IV contrast.Sagittal and coronal reformations.FINDINGS:There is extensive patchy | | and confluent hypoattenuation involvingthe subcortical, periventricular and deep white | | matter. Theappearance is consistent with severe small vessel ischemic changes.There are | | chronic lacunar infarcts involving the right caudate headand right lentiform | | nucleus.There is no evidence of an intra or extra-axial mass or masseffect.There is no | | evidence of hydrocephalus or cerebral edema. There isno evidence of intracranial | | hemorrhage.There is mild diffuse age related atrophy.There are extensive atherosclerotic | | calcifications involving thevertebral arteries and internal carotid arteries.The neural | | calvarium is intact. This is nonspecific. This couldrepresent a | | hemangioma.IMPRESSION:1. No evidence of mass effect, acute hemorrhage or definite | | acutecortical infarct.2. Extensive small vessel ischemic changes and chronic | | lacunarinfarct.3. Mild diffuse age related atrophy.4. Nonspecific lucent lesion | | involving the left parietal bone,which could represent a hemangioma.S: SQ ([id number]) | | Signed by: TESSA JAMIL MD | |appearance is consistent with severe small vessel ischemic changes. | |There are chronic lacunar infarcts involving the right caudate head | |and right lentiform nucleus. | | | |There is no evidence of an intra or extra-axial mass or mass | |effect. | | | |There is no evidence of hydrocephalus or cerebral edema. There is | |no evidence of intracranial hemorrhage. | | | |There is mild diffuse age related atrophy. | | | |There are extensive atherosclerotic calcifications involving the | |vertebral arteries and internal carotid arteries. | | | |The neural calvarium is intact. This is nonspecific. This could | |represent a hemangioma. | | | |IMPRESSION: | |1. No evidence of mass effect, acute hemorrhage or definite acute | |cortical infarct. | |2. Extensive small vessel ischemic changes and chronic lacunar | |infarct. | |3. Mild diffuse age related atrophy. | |4. Nonspecific lucent lesion involving the left parietal bone, | |which could represent a hemangioma. | | | | | |S: SQ ([id number]) Signed by: TESSA JAMIL MD | + + + +---------+ + + | Performing | Address | City/State/Zipcode | Phone Number | | Organization | | | | + +---------+ + + | [facility] | | | [phone] | + +---------+ + + | [facility] | | | [phone] | + +---------+ + + PTT (12/11/2011 3:58 AM PDT) + + + + + + | Component | Value | Ref Range | Performed | Pathologist | | | | | At | Signature | + + + + + + | aPTT, | 28Comment: Deep venous | 26 - 36 sec | [facility] | | | Patient | thrombosis or pulmonary | | [facility] | | | | embolism therapeutic | | | | | | heparin levels of 0.3 to | | | | | | 0.7 Units/mL anti | | | | | | FactorXa levels usually | | | | | | correspond to an aPTT of | | | | | | 60 to 85 seconds. | | | | | | Acute cardiac syndrome | | | | | | therapeutic range based | | | | | | on heparin levels of | | | | | | 0.2 to 0.5 usually | | | | | | correspond to an aPTT of | | | | | | 55 to 75 seconds. | | | | + + + + + + | aPTT, Pop | 31 | sec | [facility] | | | Mean | | | [facility] | | + + + + + + + + | Specimen | + + | | + + + + + + + | Performing | Address | City/State/Zipcode | Phone Number | | Organization | | | | + + + + + | [facility] | [address] | [place] [address] | | | [facility] | | | | | LABORATORY | | | | + + + + + | [facility] | | | | | [facility] | | | | + + + + + Basic Metabolic Panel (12/10/2011 4:07 AM PDT) + + + + + + | Component | Value | Ref Range | Performed | Pathologist | | | | | At | Signature | + + + + + + | Na | 139 | 135 - 145 | [place] [facility] | | | | | mmol/L | [facility] | | + + + + + + | K | 3.8 | 3.5 - 5.0 | [place] [facility] | | | | | mmol/L | [facility] | | + + + + + + | Cl | 106 | 98 - 109 mmol/L | [place] [facility] | | | | | | [facility] | | + + + + + + | CO2 | 23 | 21 - 28 mmol/L | [place] [facility] | | | | | | [facility] | | + + + + + + | Glucose | 164 (H)Comment: Nauruan | 65 - 99 mg/dL | [facility] | | | | Diabetes Association | | [facility] | | | | diagnostic categories | | | | | | for non adults: | | | | | | Impaired fasting | | | | | | glucose 100 to 125 | | | | | | mg/dL. A fasting [...] + + | BUN | 18 | 7 - 23 mg/dL | [facility] | | | | | | [facility] | | + + + + + + | Creatinine | 0.98Comment: IDMS | 0.40 - 1.00 | [facility] | | | | traceable creatinine | mg/dL | [facility] | | + + + + + + | Calcium | 9.4 | 8.5 - 10.5 | [facility] | | | | | mg/dL | [facility] | | + + + + + + | Anion Gap | 10 | 5 - 16 mmol/L | [facility] | | | | | | [facility] | | + + + + + + | Estimated | 56Comment: GFR <60: | ml/min/1.73m2 | [facility] | | | GFR | Chronic kidney disease, | | [facility] | | | | if found over a 3 month | | | | | | period.GFR <15: Kidney | | | | | | failure.For | | | | | | Americans, multiply the [...] + | MONIK[facility] | [address] | [place] [address] | | | [facility] | | | | | LABORATORY | | | | + + + + + | [facility] | | | | | [facility] | | | | + + + + + PTT (12/10/2011 4:07 AM PDT) + + + + + + | Component | Value | Ref Range | Performed | Pathologist | | | | | At | Signature | + + + + + + | aPTT, | 63 (H)Comment: Deep | 26 - 36 sec | [facility] | | | Patient | venous thrombosis or | | [facility] | | | | pulmonary embolism | | | | | | therapeutic heparin | | | | | | levels of 0.3 to 0.7 | | | | | | Units/mL anti FactorXa | | | | | | levels usually | | | | | | correspond to an aPTT of | | | | | | 60 to 85 seconds. | | | | | | Acute cardiac syndrome | | | | | | therapeutic range based | | | | | | on heparin levels of | | | | | | 0.2 to 0.5 usually | | | | | | correspond to an aPTT of | | | | | | 55 to 75 seconds. | | | | + + + + + + | aPTT, Pop | 31 | sec | [facility] | | | Mean | | | [facility] | | + + + + + + + + | Specimen | + + | | + + + + + + + | Performing | Address | City/State/Zipcode | Phone Number | | Organization | | | | + + + + + | [facility] | [address] | [place] [address] | | | [facility] | | | | | LABORATORY | | | | + + + + + | [facility] | | | | | [facility] | | | | + + + + + CBC no Differential (12/10/2011 4:07 AM PDT) + + + + + + | Component | Value | Ref Range | Performed | Pathologist | | | | | At | Signature | + + + + + + | WBC | 4.9 | 4.0 - 11.0 K/uL | [facility] | | | | | | [facility] | | + + + + + + | RBC | 3.59 (L) | 3.80 - 5.20 | [facility] | | | | | M/uL | [facility] | | + + + + + + | Hemoglobin | 11.3 (L) | 11.6 - 15.5 | [facility] | | | | | g/dL | [facility] | | + + + + + + | Hematocrit | 33.8 (L) | 35.0 - 46.0 % | [place] [facility] | | | | | | [facility] | | + + + + + + | MCV | 94.1 | 80.0 - 100.0 fL | [place] [facility] [place] | | | | | | [facility] | | + + + + + + | MCH | 31.5 | 27.0 - 34.0 pg | [facility] | | | | | | [facility] | | + + + + + + | MCHC | 33.4 | 32.0 - 35.5 | [facility] | | | | | g/dL | [facility] | | + + + + + + | RDW-CV | 13.0 | 11.0 - 15.0 % | [facility] | | | | | | [facility] | | + + + + + + | Platelet | 164 | 150 - 400 K/uL | [facility] | | | Count | | | [facility] | | + + + + + + + + | Specimen | + + | | + + + + + + + | Performing | Address | City/State/Zipcode | Phone Number | | Organization | | | | + + + + + | [facility] | [address] | [place] [address] | | | [facility] | | | | | LABORATORY | | | | + + + + + | [place] [facility] [place] | | | | | [facility] | | | | + + + + + NM Myocardial Perfusion Mult SPECT (12/09/2011 1:49 PM PDT) + + | Specimen | + + | | + + + + + | Narrative | Performed At | + + + | Exam Performed Location: [facility] | [facility] | | MARKIE PINTO | LAB | | F [id number] Steven Dyer | | | ADM IN [id number] | | | Steven Dyer 1940 71 | | | 12/09/2011 EXAM# TYPE/EXAM [id number] NUC/NUC MYOCARD | | | PERF SPECT MULT STRESS PORTION OF A SINGLE ISOTOPE | | | PERSANTINE NUCLEAR STRESS TEST DATE OF : | | | 1940 DATE OF STUDY: 12/09/2011 | | | REFERRING PHYSICIAN: Dr. Pradeep Reyes ATTENDING | | | [employer]: Dr. Fly Christianson STUDY STATUS: | | | Routine. TYPE OF STUDY: Persantine. 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 Left ventricular | | | ejection fraction is 65%. Echocardiogram 12/08/2011. | | | RISK FACTORS: Obesity, dyslipidemia, hypertension. | | | CURRENT MEDICATION: Aspirin, Atenolol, Lisinopril. The | | | patient is very noncompliant with her medication | | | treatment. ALLERGIES: IV contrast. | | | STRESS TEST: BASELINE DATA: EKG shows sinus | | | bradycardia. Heart rate 59, BP 156/98. ISOTOPE DOSE: | | | Resting 10.5 mCi of Tc99m generic Sestimibi IV and | | | stress 29 mCi of Tc99m generic Sestimibi IV. | | | Persantine 47 mg IV over four minutes. Aminophylline 125 | | | mg IV over one minute at 10 minutes. STRESS DATA: | | | EKG shows sinus rhythm. Heart rate 71, low BP 146/81. | | | IMPRESSION: Nondiagnostic stress for ischemia. | | | RECOVERY: SYMPTOMS: General discomfort. | | | COMPLICATIONS: None. PAGE 1 | | | Signed Report (CONTINUED) | | | MARKIE PINTO | | | F [id number] Steven Dyer | | | ADM IN [id number] | | | Steven Dyer 1940 71 | | | 12/09/2011 EXAM# TYPE/EXAM [id number] NUC/NUC MYOCARD | | | PERF SPECT MULT <Continued> DISPOSITION: | | | The patient was stable upon transfer to camera for | | | stress imaging. The final result of test is pending | | | reading by Dr. Fly Christianson or one of his partners. This | | | will be dictated under separate cover. The stress | | | portion of this nuclear stress test was dictated by: | | | ABBY Braxton NUCLEAR STRESS AND | | | REST PERSANTINE MYOCARDIAL PERFUSION STUDY DATE OF | | | STUDY: 12/09/2011 DATE OF DICTATION: 12/09/2011 | | | ROOM #: 655 INDICATIONS FOR STUDY: Chest | | | pain and non Q NJ. She has a past history of prior | | | coronary disease and stents. PROCEDURE: Persantine | | | induced stress and rest studies were performed using | | | standard imaging techniques. The ECG portion of the stress test | | | was nondiagnostic due to the pharmacologic stress study | | | performed. IMPRESSION: 1. Nuclear | | | stress study demonstrates moderate area of lateral | | | ischemia with near complete improvement involving the lateral wall. | | | There is mild persistent inferoapical defect, which | | | does not completely reperfuse. 2. | | | Ejection fraction is 53%. There is a large lateral wall motion | | | defect consistent with prior infarction. | | | OVERALL CONCLUSION: 1. Moderate area of inferolateral | | | ischemia involving the inferolateral wall. | | | PAGE 2 Signed Report | | | (CONTINUED) MARKIE PINTO | | | F [id number] | | | Steven Dyer ADM IN | | | [id number] Steven Dyer | | | 1940 71 12/09/2011 EXAM# TYPE/EXAM | | | [id number] NUC/NUC MYOCARD PERF SPECT MULT <Continued> | | | 2. Overall ejection fraction 53% with inferolateral area | | | of akinesis evident on the ventriculography. | | | REPORT ELECTRONICALLY SIGNED | | | 12/09/2011 ([id number]) Reviewed By: | | | FLY CHRISTIANSON MD Authenticated By: | | | Fly Christianson | | | CC: Doug García | | | Dictated Date/Time: 12/09/2011 (4787) Transcribed | | | Date/Time: 12/09/2011 (2716) Cable Dispatcher: [place] | | | Printed Date/Time: 12/09/2011 (5800) PAGE 3 | | | Signed Report S: MT | | + + + + + | Procedure Note | + + | Carlos Martínez Conversion - 05/09/2013 9:05 AM PDT Exam Performed Location: [facility] | | at [place] [facility] F | | [id number] Steven Dyer ADM IN Z655 01W [id number] | | Steven Dyer 1940 71 12/09/2011EXAM# | | [id number] NUC/NUC MYOCARD PERF SPECT MULT STRESS PORTION OF A SINGLE | | ISOTOPE PERSANTINE NUCLEAR STRESSTEST DATE OF : 1940 DATE OF | | STUDY: 12/09/2011 REFERRING PHYSICIAN: Dr. Pradeep Reyes ATTENDING | | [employer] TE[employer]ER: Dr. Fly Christianson STUDY STATUS: Routine. TYPE OF STUDY: | | Persantine. 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 Left ventricular ejection fraction is65%. Echocardiogram 12/08/2011. | | RISK FACTORS: Obesity, dyslipidemia, hypertension. CURRENT MEDICATION: | | Aspirin, Atenolol, Lisinopril. Thepatient is very noncompliant with her | | medication treatment. ALLERGIES: IV contrast. STRESS TEST: | | BASELINE DATA: EKG shows sinus bradycardia. Heart rate 59,BP 156/98. ISOTOPE | | DOSE: Resting 10.5 mCi of Tc99m generic SestimibiIV and stress 29 mCi of Tc99m | | generic Sestimibi IV. Persantine 47 mg IV over four minutes. | | Aminophylline 125 mg IV over one minute at 10 minutes. STRESS DATA: EKG shows | | sinus rhythm. Heart rate 71, low BP146/81. IMPRESSION: Nondiagnostic stress for | | ischemia. RECOVERY: SYMPTOMS: General discomfort. | | COMPLICATIONS: None. PAGE 1 Signed Report | | (CONTINUED) [facility] F [id number] | | Steven Dyer ADM IN Z655 01W [id number] | | Steven Dyer 1940 71 12/09/2011EXAM# | | TYPE/[id number] NUC/NUC MYOCARD PERF SPECT MULT <Continued> DISPOSITION: | | [facility] The | | final result of test is pending reading by Dr. Fly Lozano or one of his | | partners. This will be dictated under separate cover. The stress portion of this | | nuclear stress test was dictatedby: ABBY Braxton NUCLEAR STRESS | | AND REST PERSANTINE MYOCARDIAL PERFUSION STUDY DATE OF STUDY: 12/09/2011 | | DATE OF DICTATION: 12/09/2011 ROOM #: 655 INDICATIONS FOR STUDY: Chest | | pain and non Q NJ. She has apast history of prior coronary disease and stents. | | PROCEDURE: Persantine induced stress and rest studies wereperformed using | | standard imaging techniques. The ECG portion of thestress test was nondiagnostic | | due to the pharmacologic stress studyperformed. IMPRESSION: 1. Nuclear | | stress study demonstrates moderate area oflateral ischemia with near complete | | improvement involving thelateral wall. There is mild persistent inferoapical | | defect, which does not completely reperfuse. 2. Ejection fraction is | | 53%. There is a large lateral wallmotion defect consistent with prior | | infarction. OVERALL CONCLUSION: 1. Moderate area of inferolateral | | ischemia involving the inferolateral wall. PAGE 2 Signed | | Report (CONTINUED) MILLIEMARKIE Adrian | | F [id number] Steven Dyer ADM IN Z655 01W | | [id number] Steven Dyer 1940 71 12/09/2011EXAM# | | TYPE/[id number] NUC/NUC MYOCARD PERF SPECT MULT <Continued> 2. Overall | | ejection fraction 53% with inferolateral area ofakinesis evident on the | | ventriculography. REPORT ELECTRONICALLY SIGNED 12/09/2011(4580) | | Reviewed By: FLY CHRISTIANSON MD | | Authenticated By: Fly Christianson CC: Doug García Dictated Date/Time: | | 12/09/2011 (8161) Transcribed Date/Time: 12/09/2011 (1743) | | Cable Dispatcher: PAR9 Printed Date/Time: 12/09/2011 (5730) PAGE 3 | | Signed ReportS: MT | | stress 29 mCi of Tc99m generic Sestimibi IV. | | | | Persantine 47 mg IV over four minutes. | | Aminophylline 125 mg IV over one minute at 10 minutes. | | | | STRESS DATA: EKG shows sinus rhythm. Heart rate 71, low BP | |146/81. | | | | IMPRESSION: Nondiagnostic stress for ischemia. | | | | RECOVERY: | | SYMPTOMS: General discomfort. | | | | COMPLICATIONS: None. | | | | PAGE 1 Signed Report | |(CONTINUED) | | | | | | | | MARKIE PINTO F | |[id number] | | | | Steven Dyer ADM IN Z655 01W | |[id number] | | | | Steven Dyer 1940 71 12/09/2011 | | | | | |EXAM# TYPE/EXAM | |[id number] NUC/NUC MYOCARD PERF SPECT MULT | | <Continued> | | | | | | DISPOSITION: The patient was stable upon transfer to [facility] | |for | | stress imaging. | | | | The final result of test is pending reading by Dr. Fly Avelar. | |Meghan or one | | of his partners. This will be dictated under separate cover. | | | | The stress portion of this nuclear stress test was dictated | |by: | | ABBY Braxton | | | | | | | | | | | | NUCLEAR STRESS AND REST PERSANTINE MYOCARDIAL PERFUSION STUDY | | | | DATE OF STUDY: 12/09/2011 | | DATE OF DICTATION: 12/09/2011 | | | | ROOM #: 655 | | | | INDICATIONS FOR STUDY: Chest pain and non Q NJ. She has a | |past | | history of prior coronary disease and stents. | | | | PROCEDURE: Persantine induced stress and rest studies were | |performed | | using standard imaging techniques. The ECG portion of the | |stress test | | was nondiagnostic due to the pharmacologic stress study | |performed. | | | | IMPRESSION: | | 1. Nuclear stress study demonstrates moderate area of | |lateral | | ischemia with near complete improvement involving the | |lateral wall. | | There is mild persistent inferoapical defect, which does not | | completely reperfuse. | | 2. Ejection fraction is 53%. There is a large lateral wall | |motion | | defect consistent with prior infarction. | | | | OVERALL CONCLUSION: | | 1. Moderate area of inferolateral ischemia involving the | | inferolateral wall. | | | | | | PAGE 2 Signed Report | |(CONTINUED) | | | | | | | | MARKIE PINTO F | |[id number] | | | | Steven Dyer ADM IN Z655 01W | |[id number] | | | | Steven Dyer 1940 71 12/09/2011 | | | | | |EXAM# TYPE/EXAM | |[id number] NUC/NUC MYOCARD PERF SPECT MULT | | <Continued> | | | | 2. Overall ejection fraction 53% with inferolateral area of | |akinesis | | evident on the ventriculography. | | | | | | REPORT ELECTRONICALLY SIGNED 12/09/2011 | |(2624) | | Reviewed By: FLY CHRISTIANSON MD | | Authenticated By: Fly Christianson | | | | | | | | | | | | | | | | | | | | | | | | | | | | | | | | | | | | | | | | | | | | | | | | | | | | | | | | CC: Doug García | | | | Dictated Date/Time: 12/09/2011 (7489) | | Transcribed Date/Time: 12/09/2011 (3315) | | Cable Dispatcher: [place] | | Printed Date/Time: 12/09/2011 (0796) | | | | PAGE 3 Signed Report | |S: MT | + + + +---------+ + + | Performing | Address | City/State/Zipcode | Phone Number | | Organization | | | | + +---------+ + + | [facility] | | | [phone] | + +---------+ + + | [facility] | | | [phone] | + +---------+ + + NM Cardiovascular Stress Test (Non-Nuc) (12/09/2011 1:48 PM PDT) + + | Specimen | + + | | + + + + + | Narrative | Performed At | + + + | Exam Performed Location: [facility] | M[facility] | | [facility] | LAB | | F [id number] Steven Dyer | | | ADM IN Z655 01W [id number] | | | Steven Dyer 1940 71 | | | 12/09/2011 EXAM# TYPE/EXAM [id number] NUC/NUC CARDIO | | | STRESS TRACING O STRESS PORTION OF A SINGLE ISOTOPE | | | PERSANTINE NUCLEAR STRESS TEST DATE OF : | | | 1940 DATE OF STUDY: 12/09/2011 | | | REFERRING PHYSICIAN: Dr. Pradeep Reyes ATTENDING | | | [employer] TE[employer]ER: Dr. Fly Christianson STUDY STATUS: | | | Routine. TYPE OF STUDY: Persantine. 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 Left ventricular | | | ejection fraction is 65%. Echocardiogram 12/08/2011. | | | RISK FACTORS: Obesity, dyslipidemia, hypertension. | | | CURRENT MEDICATION: Aspirin, Atenolol, Lisinopril. The | | | patient is very noncompliant with her medication | | | treatment. ALLERGIES: IV contrast. | | | STRESS TEST: BASELINE DATA: EKG shows sinus | | | bradycardia. Heart rate 59, BP 156/98. ISOTOPE DOSE: | | | Resting 10.5 mCi of Tc99m generic Sestimibi IV and | | | stress 29 mCi of Tc99m generic Sestimibi IV. | | | Persantine 47 mg IV over four minutes. Aminophylline 125 | | | mg IV over one minute at 10 minutes. STRESS DATA: | | | EKG shows sinus rhythm. Heart rate 71, low BP 146/81. | | | IMPRESSION: Nondiagnostic stress for ischemia. | | | RECOVERY: SYMPTOMS: General discomfort. | | | COMPLICATIONS: None. PAGE 1 | | | Signed Report (CONTINUED) | | | MARKIE PINTO | | | F [id number] Steven Dyer | | | ADM IN Z655 01W [id number] | | | Steven Dyer 1940 71 | | | 12/09/2011 EXAM# TYPE/EXAM [id number] NUC/NUC CARDIO | | | STRESS TRACING O <Continued> | | | DISPOSITION: The patient was stable upon transfer to [facility] for | | | stress imaging. The final result of test | | | is pending reading by Dr. Fly Christianson or one of his | | | partners. This will be dictated under separate cover. | | | The stress portion of this nuclear stress test was dictated by: | | | ABBY Braxton | | | REPORT ELECTRONICALLY SIGNED 12/09/2011 (5918) | | | Reviewed By: ABBY DAVILA | | | Authenticated By: Jered Goldstein | | | CC: Doug | | | G Ricky Dictated Date/Time: 12/09/2011 (6358) | | | Transcribed Date/Time: 12/09/2011 (4548) | | | Cable Dispatcher: [place] Printed Date/Time: 12/09/2011 | | | (3537) PAGE 2 Signed Report S: | | | MT | | + + + + + | Procedure Note | + + | Mauricio, Rad Conversion - 05/09/2013 9:30 AM PDT Exam Performed Location: [facility] | | at [place] MARKIE PINTO F | | [id number] Steven Dyer ADM IN Z655 01W [id number] | | Steven Dyer 1940 71 12/09/2011EXAM# | | TYPE/[id number] NUC/NUC CARDIO STRESS TRACING O STRESS PORTION OF A SINGLE | | ISOTOPE PERSANTINE NUCLEAR STRESSTEST DATE OF : 1940 DATE OF | | STUDY: 12/09/2011 REFERRING PHYSICIAN: Dr. Pradeep Reyes ATTENDING | | [employer] TE[employer]ER: Dr. Fly Christianson STUDY STATUS: Routine. TYPE OF STUDY: | | Persantine. 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 Left ventricular ejection fraction is65%. Echocardiogram 12/08/2011. | | RISK FACTORS: Obesity, dyslipidemia, hypertension. CURRENT MEDICATION: | | Aspirin, Atenolol, Lisinopril. Thepatient is very noncompliant with her | | medication treatment. ALLERGIES: IV contrast. STRESS TEST: | | BASELINE DATA: EKG shows sinus bradycardia. Heart rate 59,BP 156/98. ISOTOPE | | DOSE: Resting 10.5 mCi of Tc99m generic SestimibiIV and stress 29 mCi of Tc99m | | generic Sestimibi IV. Persantine 47 mg IV over four minutes. | | Aminophylline 125 mg IV over one minute at 10 minutes. STRESS DATA: EKG shows | | sinus rhythm. Heart rate 71, low BP146/81. IMPRESSION: Nondiagnostic stress for | | ischemia. RECOVERY: SYMPTOMS: General discomfort. | | COMPLICATIONS: None. PAGE 1 Signed Report | | (CONTINUED) MARKIE IPNTO [id number] | | Steven Dyer ADM IN Z655 01W [id number] | | Steven Dyer 1940 71 12/09/2011EXAM# | | TYPE/[id number] NUC/NUC CARDIO STRESS TRACING O <Continued> DISPOSITION: | | The patient was stable upon transfer to [facility] stress imaging. The | | final result of test is pending reading by Dr. Fly Lozano or one of his | | partners. This will be dictated under separate cover. The stress portion of this | | nuclear stress test was dictatedby: ABBY Braxton | | REPORT ELECTRONICALLY SIGNED 12/09/2011(9712) Reviewed By: JERED | | H ABBY GOLDSTEIN Authenticated By: Jered Goldstein CC: | | Doug García Dictated Date/Time: 12/09/2011 (3766) Transcribed | | Date/Time: 12/09/2011 (6163) Cable Dispatcher: [place] Printed Date/Time: | | 12/09/2011 (4576) PAGE 2 Signed ReportS: MT | | medication treatment. Left ventricular ejection fraction is | |65%. | | Echocardiogram 12/08/2011. | | | | RISK FACTORS: Obesity, dyslipidemia, hypertension. | | | | CURRENT MEDICATION: Aspirin, Atenolol, Lisinopril. The | |patient is | | very noncompliant with her medication treatment. | | | | ALLERGIES: IV contrast. | | | | STRESS TEST: | | BASELINE DATA: EKG shows sinus bradycardia. Heart rate 59, | |BP 156/98. | | | | ISOTOPE DOSE: Resting 10.5 mCi of Tc99m generic Sestimibi | |IV and | | stress 29 mCi of Tc99m generic Sestimibi IV. | | | | Persantine 47 mg IV over four minutes. | | Aminophylline 125 mg IV over one minute at 10 minutes. | | | | STRESS DATA: EKG shows sinus rhythm. Heart rate 71, low BP | |146/81. | | | | IMPRESSION: Nondiagnostic stress for ischemia. | | | | RECOVERY: | | SYMPTOMS: General discomfort. | | | | COMPLICATIONS: None. | | | | PAGE 1 Signed Report | |(CONTINUED) | | | | | | | | MARKIE PINTO F | |[id number] | | | | Steven Dyer ADM IN Z655 01W | |[id number] | | | | Steven Dyer 1940 71 12/09/2011 | | | | | |EXAM# TYPE/EXAM | |[id number] NUC/NUC CARDIO STRESS TRACING O | | <Continued> | | | | | | DISPOSITION: The patient was stable upon transfer to [facility] | |for | | stress imaging. | | | | The final result of test is pending reading by Dr. Fyl Avelar. | |Meghan or one | | of his partners. This will be dictated under separate cover. | | | | The stress portion of this nuclear stress test was dictated | |by: | | ABBY Brxaton | | | | | | REPORT ELECTRONICALLY SIGNED 12/09/2011 | |(2112) | | Reviewed By: ABBY DAVILA | | Authenticated By: Jered Goldstein | | | | | | | | | | | | | | | | | | | | | | | | | | | | | | | | | | | | | | | | | | CC: Doug García | | | | Dictated Date/Time: 12/09/2011 (5679) | | Transcribed Date/Time: 12/09/2011 (1976) | | Cable Dispatcher: [place] | | Printed Date/Time: 12/09/2011 (9649) | | | | PAGE 2 Signed Report | |S: MT | + + + +---------+ + + | Performing | Address | City/State/Zipcode | Phone Number | | Organization | | | | + +---------+ + + | [facility] | | | [phone] | + +---------+ + + | [facility] | | | [phone] | + +---------+ + + POC Glucose (12/09/2011 10:53 AM PDT) + +---------+ + + + | Component | Value | Ref Range | Performed | Pathologist | | | | | At | Signature | + +---------+ + + + | Glucose, | 103 (H) | 65 - 99 mg/dL | [facility] | | | POC | | | [facility] | | + +---------+ + + + + + | Specimen | + + | | + + + + + + + | Performing | Address | City/State/Zipcode | Phone Number | | Organization | | | | + + + + + | [facility] | [address] | [place] [address] | | | [facility] | | | | | LABORATORY | | | | + + + + + | [facility] | | | | | [facility] | | | | + + + + + PTT (12/09/2011 8:30 AM PDT) + + + + + + | Component | Value | Ref Range | Performed | Pathologist | | | | | At | Signature | + + + + + + | aPTT, | 67 (H)Comment: Deep | 26 - 36 sec | [facility] | | | Patient | venous thrombosis or | | [facility] | | | | pulmonary embolism | | | | | | therapeutic heparin | | | | | | levels of 0.3 to 0.7 | | | | | | Units/mL anti FactorXa | | | | | | levels usually | | | | | | correspond to an aPTT of | | | | | | 60 to 85 seconds. | | | | | | Acute cardiac syndrome | | | | | | therapeutic range based | | | | | | on heparin levels of | | | | | | 0.2 to 0.5 usually | | | | | | correspond to an aPTT of | | | | | | 55 to 75 seconds. | | | | + + + + + + | Joselo Amato | 31 | sec | [facility] | | | Mean | | | [facility] | | + + + + + + + + | Specimen | + + | | + + + + + + + | Performing | Address | City/State/Zipcode | Phone Number | | Organization | | | | + + + + + | [facility] | [address] | [place] [address] | | | [facility] | | | | | LABORATORY | | | | + + + + + | [facility] | | | | | [facility] | | | | + + + + + PTT (12/09/2011 2:06 AM PDT) + + + + + + | Component | Value | Ref Range | Performed | Pathologist | | | | | At | Signature | + + + + + + | aPTT, | 70 (H)Comment: Deep | 26 - 36 sec | [facility] | | | Patient | venous thrombosis or | | [facility] | | | | pulmonary embolism | | | | | | therapeutic heparin | | | | | | levels of 0.3 to 0.7 | | | | | | Units/mL anti FactorXa | | | | | | levels usually | | | | | | correspond to an aPTT of | | | | | | 60 to 85 seconds. | | | | | | Acute cardiac syndrome | | | | | | therapeutic range based | | | | | | on heparin levels of | | | | | | 0.2 to 0.5 usually | | | | | | correspond to an aPTT of | | | | | | 55 to 75 seconds. | | | | + + + + + + | aPTT Pop | 31 | sec | [place] [facility] | | | Mean | | | [facility] | | + + + + + + + + | Specimen | + + | | + + + + + + + | Performing | Address | City/State/Zipcode | Phone Number | | Organization | | | | + + + + + | [facility] | [address] | [place] [address] | | | [facility] | | | | | LABORATORY | | | | + + + + + | [facility] | | | | | [facility] | | | | + + + + + PTT (12/08/2011 7:20 PM PDT) + + + + + + | Component | Value | Ref Range | Performed | Pathologist | | | | | At | Signature | + + + + + + | aPTT, | 54 (H)Comment: Deep | 26 - 36 sec | [facility] | | | Patient | venous thrombosis or | | [facility] | | | | pulmonary embolism | | | | | | therapeutic heparin | | | | | | levels of 0.3 to 0.7 | | | | | | Units/mL anti FactorXa | | | | | | levels usually | | | | | | correspond to an aPTT of | | | | | | 60 to 85 seconds. | | | | | | Acute cardiac syndrome | | | | | | therapeutic range based | | | | | | on heparin levels of | | | | | | 0.2 to 0.5 usually | | | | | | correspond to an aPTT of | | | | | | 55 to 75 seconds. | | | | + + + + + + | Joselo Amato | 31 | sec | [facility] | | | Mean | | | [facility] | | + + + + + + + + | Specimen | + + | | + + + + + + + | Performing | Address | City/State/Zipcode | Phone Number | | Organization | | | | + + + + + | [facility] | [address] | [place] [address] | | | [facility] | | | | | LABORATORY | | | | + + + + + | [place] [facility] | | | | | [facility] | | | | + + + + + Extra Hold Tube(s) (12/08/2011 7:20 PM PDT) + +-------+ + + + | Component | Value | Ref Range | Performed | Pathologist | | | | | At | Signature | + +-------+ + + + | Extra Tube | PST | | [facility] | | | | | | [facility] | | + +-------+ + + + + + | Specimen | + + | | + + + + + + + | Performing | Address | City/State/Zipcode | Phone Number | | Organization | | | | + + + + + | [facility] | [address] | [place] [address] | | | [facility] | | | | | LABORATORY | | | | + + + + + | [facility] | | | | | [facility] | | | | + + + + + PTT (12/08/2011 1:05 PM PDT) + + + + + + | Component | Value | Ref Range | Performed | Pathologist | | | | | At | Signature | + + + + + + | aPTT, | 57 (H)Comment: Deep | 26 - 36 sec | [facility] | | | Patient | venous thrombosis or | | [facility] | | | | pulmonary embolism | | | | | | therapeutic heparin | | | | | | levels of 0.3 to 0.7 | | | | | | Units/mL anti FactorXa | | | | | | levels usually | | | | | | correspond to an aPTT of | | | | | | 60 to 85 seconds. | | | | | | Acute cardiac syndrome | | | | | | therapeutic range based | | | | | | on heparin levels of | | | | | | 0.2 to 0.5 usually | | | | | | correspond to an aPTT of | | | | | | 55 to 75 seconds. | | | | + + + + + + | aPTT, Pop | 31 | sec | [facility] | | | Mean | | | [facility] | | + + + + + + + + | Specimen | + + | | + + + + + + + | Performing | Address | City/State/Zipcode | Phone Number | | Organization | | | | + + + + + | [facility] | [address] | [place] [address] | | | [facility] | | | | | LABORATORY | | | | + + + + + | [facility] | | | | | [facility] | | | | + + + + + PTT (12/08/2011 5:40 AM PDT) + + + + + + | Component | Value | Ref Range | Performed | Pathologist | | | | | At | Signature | + + + + + + | aPTT, | 96 (H)Comment: Deep | 26 - 36 sec | [facility] | | | Patient | venous thrombosis or | | [facility] | | | | pulmonary embolism | | | | | | therapeutic heparin | | | | | | levels of 0.3 to 0.7 | | | | | | Units/mL anti FactorXa | | | | | | levels usually | | | | | | correspond to an aPTT of | | | | | | 60 to 85 seconds. | | | | | | Acute cardiac syndrome | | | | | | therapeutic range based | | | | | | on heparin levels of | | | | | | 0.2 to 0.5 usually | | | | | | correspond to an aPTT of | | | | | | 55 to 75 seconds. | | | | + + + + + + | aPTT, Pop | 31 | sec | [facility] | | | Mean | | | [facility] | | + + + + + + + + | Specimen | + + | | + + + + + + + | Performing | Address | City/State/Zipcode | Phone Number | | Organization | | | | + + + + + | [facility] | [address] | [place] [address] | | | [facility] | | | | | LABORATORY | | | | + + + + + | [facility] | | | | | [facility] | | | | + + + + + Troponin I (12/08/2011 5:40 AM PDT) + + + + + + | Component | Value | Ref Range | Performed | Pathologist | | | | | At | Signature | + + + + + + | Troponin I | 2.32 () | 0.00 - 0.29 | [facility] | | | | Comment: | ng/mL | [facility] | | | | Verified by readback. | | | | | | Called to Caity Castro | | | | + + + + + + + + | Specimen | + + | | + + + + + + + | Performing | Address | City/State/Zipcode | Phone Number | | Organization | | | | + + + + + | [facility] | [address] | [place] [address] | | | [facility] | | | | | LABORATORY | | | | + + + + + | [place] [facility] | | | | | [facility] | | | | + + + + + Lipid Panel (12/08/2011 5:40 AM PDT) + + + + + + | Component | Value | Ref Range | Performed | Pathologist | | | | | At | Signature | + + + + + + | Cholesterol | 165Comment: <200: | <200 mg/dL | [facility] | | | | Desirable | | [facility] | | + + + + + + | Triglycerid | 109Comment: <150: | <150 mg/dL | [facility] | | | es | Normal | | [facility] | | + + + + + + | HDL | 46Comment: <40: | 40 - 59 mg/dL | [facility] | | | | Low40 to 59: | | [facility] | | | | Normal>59: | | | | | | HighHDL Cholesterol | | | | | | greater than or equal to | | | | | | 60 mg/dL is considered | | | | | | a "negative" risk | | | | | | factor, serving to | | | | | | remove one risk factor | | | | | | from the total count. | | | | + + + + + + | LDL, | 97Comment: To calculate | <100 mg/dL | [facility] | | | Calculated | 10 year cardiac risk for | | [facility] | | | | this patient, go to | | | | | | [email or web address]. | | | | | | Click on Testing | | | | | | Information, then on | | | | | | Lipid Calculator. | | | | + + + + + + + + | Specimen | + + | | + + + + + + + | Performing | Address | City/State/Zipcode | Phone Number | | Organization | | | | + + + + + | [facility] | [address] | [place] [address] | | | [facility] | | | | | LABORATORY | | | | + + + + + | [facility] | | | | | [facility] | | | | + + + + + CK Total (12/08/2011 5:40 AM PDT) + +-------+ + + + | Component | Value | Ref Range | Performed | Pathologist | | | | | At | Signature | + +-------+ + + + | CK TOTAL | 177 | 20 - 200 U/L | [facility] | | | | | | [facility] | | + +-------+ + + + + + | Specimen | + + | | + + + + + + + | Performing | Address | City/State/Zipcode | Phone Number | | Organization | | | | + + + + + | [facility] | [address] | [place] [address] | | | [facility] | | | | | LABORATORY | | | | + + + + + | [facility] | | | | | [facility] | | | | + + + + + XR Chest PA or AP (12/07/2011 7:53 PM PDT) + + | Specimen | + + | | + + + + + | Narrative | Performed At | + + + | Exam Performed Location: [facility] SINGLE | MISCELANIOUS | | VIEW CHEST X-RAY CLINICAL INFORMATION: Chest pain. | LAB | | COMPARISON: Chest x-ray 03/31/2011. FINDINGS: The soft tissues | | | of the chest wall have a normal appearance. There are mild | | | degenerative changes of the thoracic spine. The heart, mediastinum, | | | vargas, and lungs are normal. IMPRESSION: There are no active | | | cardiopulmonary abnormalities. S: SQ ([id number]) Signed by: RAFAEL Kimbrough | | | MD FREDY | | + + + + + | Procedure Note | + + | Mauricio, Rad Conversion - 05/09/2013 9:03 AM PDT Exam Performed Location: [facility] | | at [facility] CHEST X-RAYCLINICAL INFORMATION:Chest pain.COMPARISON:Chest | | x-ray 03/31/2011.FINDINGS:The soft tissues of the chest wall have a normal appearance. | | Thereare mild degenerative changes of the thoracic spine. The heart,mediastinum, vargas, | | and lungs are normal.IMPRESSION:There are no active cardiopulmonary abnormalities.S: SQ | | ([id number]) Signed by: RAFAEL DANIEL MD | | | |COMPARISON: | |Chest x-ray 03/31/2011. | | | |FINDINGS: | |The soft tissues of the chest wall have a normal appearance. There | |are mild degenerative changes of the thoracic spine. The heart, | |mediastinum, vargas, and lungs are normal. | | | |IMPRESSION: | |There are no active cardiopulmonary abnormalities. | | | | | |S: SQ ([id number]) Signed by: RAFAEL DANIEL MD | + + + +---------+ + + | Performing | Address | City/State/Zipcode | Phone Number | | Organization | | | | + +---------+ + + | [facility] | | | [phone] | + +---------+ + + | MISCELANIOUS LAB | | | [phone] | + +---------+ + + Troponin I (12/07/2011 7:36 PM PDT) + + + + + + | Component | Value | Ref Range | Performed | Pathologist | | | | | At | Signature | + + + + + + | Troponin I | 2.54 ()Comment: | 0.00 - 0.29 | [facility] | | | | Verified by | ng/mL | [facility] | | | | readback.Called to | | | | | | Pita Villagran in ED | | | | + + + + + + + + | Specimen | + + | | + + + + + + + | Performing | Address | City/State/Zipcode | Phone Number | | Organization | | | | + + + + + | MONIKA M[facility]CH[facility] | [address] | [place] [address] | | | [facility] | | | | | LABORATORY | | | | + + + + + | [facility] | | | | | [facility] | | | | + + + + + Comprehensive Metabolic Panel (12/07/2011 7:36 PM PDT) + + + + + + | Component | Value | Ref Range | Performed | Pathologist | | | | | At | Signature | + + + + + + | Na | 141 | 135 - 145 | [facility] | | | | | mmol/L | [facility] | | + + + + + + | K | 3.8 | 3.5 - 5.0 | [facility] | | | | | mmol/L | [facility] | | + + + + + + | Cl | 104 | 98 - 109 mmol/L | [facility] | | | | | | [facility] | | + + + + + + | CO2 | 24 | 21 - 28 mmol/L | [facility] | | | | | | [facility] | | + + + + + + | Glucose | 99Comment: Nauruan | 65 - 99 mg/dL | [facility] | | | | Diabetes Association | | [facility] | | | | diagnostic categories | | | | | | for non adults: | | | | | | Impaired fasting | | | | | | glucose 100 to 125 | | | | | | mg/dL. A fasting [...] + + | BUN | 16 | 7 - 23 mg/dL | [facility] | | | | | | [facility] | | + + + + + + | Creatinine | 0.84Comment: IDMS | 0.40 - 1.00 | [facility] | | | | traceable creatinine | mg/dL | [facility] | | + + + + + + | Calcium | 9.8 | 8.5 - 10.5 | [facility] | | | | | mg/dL | [facility] | | + + + + + + | Total | 8.1 (H) | 6.1 - 7.8 g/dL | [facility] | | | Protein | | | [facility] | | + + + + + + | Albumin | 4.2 | 3.3 - 4.8 g/dL | [facility] | | | | | | [facility] | | + + + + + + | Bilirubin | 0.2 | 0.2 - 1.1 mg/dL | [facility] | | | Total | | | [facility] | | + + + + + + | Alkaline | 106 | 38 - 110 U/L | [facility] | | | Phosphatase | | | [facility] | | + + + + + + | AST | 23 | 5 - 40 U/L | [place] [facility] | | | | | | [facility] | | + + + + + + | ALT | 21 | 5 - 50 U/L | [facility] | | | | | | [facility] | | + + + + + + | Anion Gap | 13 | 5 - 16 mmol/L | [place] [facility] | | | | | | [facility] | | + + + + + + | Estimated | >60Comment: GFR <60: | >60 | [facility] | | | GFR | Chronic kidney disease, | ml/min/1.73m2 | [facility] | | | | if found over a 3 month | | | | | | period.GFR <15: Kidney | | | | | | failure.For | | | | | | Americans, multiply the [...] + | MONIKA MELCHOR | [address] | [place] [address] | | | [facility] | | | | | LABORATORY | | | | + + + + + | [facility] | | | | | [facility] | | | | + + + + + PTT (12/07/2011 7:35 PM PDT) + + + + + + | Component | Value | Ref Range | Performed | Pathologist | | | | | At | Signature | + + + + + + | aPTT, | 30Comment: Deep venous | 26 - 36 sec | [facility] | | | Patient | thrombosis or pulmonary | | [facility] | | | | embolism therapeutic | | | | | | heparin levels of 0.3 to | | | | | | 0.7 Units/mL anti | | | | | | FactorXa levels usually | | | | | | correspond to an aPTT of | | | | | | 60 to 85 seconds. | | | | | | Acute cardiac syndrome | | | | | | therapeutic range based | | | | | | on heparin levels of | | | | | | 0.2 to 0.5 usually | | | | | | correspond to an aPTT of | | | | | | 55 to 75 seconds. | | | | + + + + + + | aPTT, Pop | 31 | sec | [facility] | | | Mean | | | [facility] | | + + + + + + + + | Specimen | + + | | + + + + + + + | Performing | Address | City/State/Zipcode | Phone Number | | Organization | | | | + + + + + | MONIKA MELCHOR | [address] | [place] [address] | | | [facility] | | | | | LABORATORY | | | | + + + + + | [facility] | | | | | [facility] | | | | + + + + + Protime INR (12/07/2011 7:35 PM PDT) + + + + + + | Component | Value | Ref Range | Performed | Pathologist | | | | | At | Signature | + + + + + + | Prothrombin | 12.3 | 10.9 - 14.8 sec | [facility] | | | Time | | | [facility] | | + + + + + + | INR | 1.0Comment: Usual oral | 0.9 - 1.2 | [facility] | | | | anticoagulant range: 2.0 | | [facility] | | | | to 3.0 High level | | | | | | oral anticoagulant | | | | | | range: 2.5 to 3.5 | | | | + + + + + + + + | Specimen | + + | | + + + + + + + | Performing | Address | City/State/Zipcode | Phone Number | | Organization | | | | + + + + + | MONIKA MELCHOR | [address] | [place] [address] | | | [facility] | | | | | LABORATORY | | | | + + + + + | [facility] | | | | | [facility] | | | | + + + + + Extra Hold Tube(s) (12/07/2011 7:35 PM PDT) + +-------+ + + + | Component | Value | Ref Range | Performed | Pathologist | | | | | At | Signature | + +-------+ + + + | Extra Tube | RED | | [facility] | | | | | | [facility] | | + +-------+ + + + + + | Specimen | + + | | + + + + + + + | Performing | Address | City/State/Zipcode | Phone Number | | Organization | | | | + + + + + | MONIKA MELCHOR | [address] | [place] [address] | | | [facility] | | | | | LABORATORY | | | | + + + + + | [facility] | | | | | [facility] | | | | + + + + + CBC with Differential (12/07/2011 7:35 PM PDT) + + + + + + | Component | Value | Ref Range | Performed | Pathologist | | | | | At | Signature | + + + + + + | WBC | 4.2 | 4.0 - 11.0 K/uL | [facility] | | | | | | [facility] | | + + + + + + | RBC | 3.87 | 3.80 - 5.20 | [facility] | | | | | M/uL | [facility] | | + + + + + + | Hemoglobin | 12.5 | 11.6 - 15.5 | [facility] | | | | | g/dL | [facility] | | + + + + + + | Hematocrit | 36.5 | 35.0 - 46.0 % | [place] [facility] | | | | | | [facility] | | + + + + + + | MCV | 94.3 | 80.0 - 100.0 fL | [facility] | | | | | | [facility] | | + + + + + + | MCH | 32.2 | 27.0 - 34.0 pg | [facility] | | | | | | [facility] | | + + + + + + | MCHC | 34.1 | 32.0 - 35.5 | [facility] | | | | | g/dL | [facility] | | + + + + + + | RDW-CV | 13.0 | 11.0 - 15.0 % | [facility] | | | | | | [facility] | | + + + + + + | Platelet | 181 | 150 - 400 K/uL | [facility] | | | Count | | | [facility] | | + + + + + + | Differentia | Automated | | [facility] | | | l Type | | | [facility] | | + + + + + + | % | 63.1 | 40.0 - 80.0 % | [facility] | | | Neutrophils | | | [facility] | | + + + + + + | % | 28.3 | 15.0 - 45.0 % | [facility] | | | Lymphocytes | | | [facility] | | + + + + + + | % Monocytes | 6.5 | 0.0 - 12.0 % | [facility] | | | | | | [facility] | | + + + + + + | % | 1.5 | 0.0 - 7.0 % | [facility] | | | Eosinophils | | | [facility] | | + + + + + + | % Basophils | 0.6 | 0.0 - 2.0 % | [facility] | | | | | | [facility] | | + + + + + + | Absolute | 2.63 | 2.00 - 7.30 | [facility] | | | Neutrophils | | K/uL | [facility] | | + + + + + + | Absolute | 1.18 | 1.00 - 3.40 | [facility] | | | Lymphocytes | | K/uL | [facility] | | + + + + + + | Absolute | 0.27 | 0.00 - 0.80 | [facility] | | | Monocytes | | K/uL | [facility] | | + + + + + + | Absolute | 0.06 | 0.00 - 0.50 | [facility] | | | Eosinophils | | K/uL | [facility] | | + + + + + + | Absolute | 0.02 | 0.00 - 0.10 | [facility] | | | Basophils | | K/uL | [facility] | | + + + + + + + + | Specimen | + + | | + + + + + + + | Performing | Address | City/State/Zipcode | Phone Number | | Organization | | | | + + + + + | MONIKA MELCHOR | [address] | [place] [address] | | | [facility] | | | | | LABORATORY | | | | + + + + + | [facility] | | | | | [facility] | | | | + + + + + documented in this encounter Visit Diagnoses Not on filedocumented in this encounter
--- OUTSIDE RECORDS SUMMARY | ~2019-07-30 | XMS | Encounter Summary ---
Demographics + + + | Address | [address] | | | [place] [address] | + + + | Home Phone | | + + + | Preferred Language | Unknown | + + + | Marital Status | | + + + | Taoism Affiliation | 1001 | + + + | Race | Unknown | + + + | Ethnic Group | Unknown | + + + Author + + + | Author | [facility] | | | and [place] | + + + | Organization | [facility] | | | [...] Team Providers + +------+ + | Care Chief Clinical Dietitian Name | Role | Phone | + +------+ + | Doug García MD | PCP | | + +------+ + Reason for Referral Surgical (Routine) +--------+ + + + + + | Status | Reason | Specialty | Diagnoses / | Referred By | Referred To | | | | | Procedures | Contact | Contact | +--------+ + + + + + | Closed | Specialty | Vascular | Diagnoses | Ricky, | [facility] | | | Services | Surgery | Carotid | MD Doug | Vascular | | | Required | | artery | [address] [place] | | | | | stenosis, | [place] | [address] | | | | bilateral | [address] | | | | | Procedures | [place], [place] | [address], | | | | | A-carotid | [address] | [place] | | | | | stenosis | Phone: | [address] | | | | | | [phone] | Phone: | | | | | | Fax: | [phone] | | | | | | [phone] | Fax: | | | | | | | [phone] | +--------+ + + + + + Physical Medicine (Routine) +--------+ + + + + + | Status | Reason | Specialty | Diagnoses / | Referred By | Referred To | | | | | Procedures | Contact | Contact | +--------+ + + + + + | Closed | Specialty | Physical | Diagnoses | Ricky, | [facility] | | | Services | Therapy / | Benign | MD Doug | [address] | | | Required | Rehabilitatio | paroxysmal | [address] | | | | n | positional | [place] | [place], [place] | | | | | vertigo | Ave. | [address] | | | | | Procedures | [place], [place] | Phone: | | | | | [facility] | [address] | [phone] | | | | | | Phone: | Fax: | | | | | | [phone] | [phone] | | | | | | Fax: | | | | | | | [phone] | | +--------+ + + + + + Reason for Visit + + + | Reason | Comments | + + + | Follow-up | | + + + Encounter Details +--------+---------+ + + + | Date | Type | Department | Care Team | Description | +--------+---------+ + + + | 03/13/ | Office | [facility] | Doug García MD | Obstructive sleep | | 2013 | Visit | [facility] | [address] | apnea (Primary Dx); | | | | Internal Medicine | [place] [address] | Chronic diastolic | | | | [address] | [phone] | CHF (congestive | | | | [place], [place] | | heart failure), NYHA | | | | [address] | | class 2 (HCC); | | | | [phone] | | Paroxysmal atrial | | | | | | fibrillation (HCC); | | | | | | Benign essential | | | | | | hypertension; | | | | | | Coronary artery | | | | | | disease; Restless | | | | | | legs syndrome (RLS); | | | | | | Hyperlipidemia; | | | | | | Hypothyroidism; | | | | | | Benign paroxysmal | | | | | | positional vertigo; | | | | | | Carotid artery | | | | | | stenosis, bilateral | +--------+---------+ + + + Social History [...] + + + | Blood Pressure | 160/81 | 03/13/2014 8:33 AM | | | | | PDT | | + + + + + | Pulse | 78 | 03/13/2014 8:33 AM | | | | | PDT | | + + + + + | Temperature | - | - | | + + + + + | Respiratory Rate | 20 | 03/13/2014 8:33 AM | | | | | PDT | | + + + + + | Oxygen Saturation | 93% | 03/13/2014 8:33 AM | | | | | PDT | | + + + + + | Inhaled Oxygen | - | - | | | Concentration | | | | + + + + + | Weight | 73.5 kg (162 lb) | 03/13/2014 8:33 AM | | | | | PDT | | + + + + + | Height | 165.1 cm (5' 5") | 03/13/2014 8:33 AM | | | | | PDT | | + + + + + | Body Mass Index | 26.96 | 03/13/2014 8:33 AM | | | | | PDT [...] Instructions Patient Instructions Doug García MD - 03/13/2014 9:42 AM PDTBenign Positional Vertigo The inner ear is located behind the middle ear. It is a part of the balance center of the b radha. It contains small calcium particles within fluid filled canals (semi-circular canals). These particles can move out of position as a result of aging, head trauma or disease of the inner ear. Once that happens, movement of the head into certain positions may cause the par ticles to stimulate the inner ear and create the feeling of vertigo. Vertigo is a false feeling of motion (as if you or the room is spinning). A vertigo attack may cause sudden nausea, vomiting and heavy sweating. Severe vertigo causes a loss of balanc e and may result in falling. During an attack of vertigo, head movement and body position ch anges will worsen symptoms. An episode of vertigo may last seconds, minutes or hours. Once you are over the first episo de of vertigo, it may never return. Sometimes symptoms recur off and on over several weeks o r longer. Home Care: If symptoms are severe, rest quietly in bed. Change positions slowly. There is usually o ne position that will feel best, such as lying on one side or lying on your back with your h ead slightly raised on pillows. Do not drive or work with dangerous machinery for one week after symptoms disappear, in case of a sudden return of symptoms. Take medicine as prescribed to relieve your symptoms. Unless another medicine was prescr ibed for nausea, vomiting and vertigo, you may use ynjm-nmj-opglljo motion sickness pills, s uch as meclizine (Bonine, Bonamine, Antivert) or dimenhydrinate (Dramamine). Follow Up with your doctor or as directed by our staff. Report any persistent ringing in the ear or h earing loss to your doctor. [NOTE: If you had a CT or MRI scan, it will be reviewed by a specialist. You will be notifi ed of any new findings that may affect your care.] Get Prompt Medical Attention if any of the following occur: Worsening of vertigo not controlled by the medicine prescribed Repeated vomiting not controlled by the medicine prescribed Increased weakness or fainting Severe headache or unusual drowsiness or confusion Weakness of an arm or leg or one side of the face Difficulty with speech or vision Seizure [id number] Werner Pereyra, [address] [place] [address], [place] [address]. All rights reserve d. This information is not intended as a substitute for professional medical care. Always fo llow your healthcare professional's instructions. documented in this encounter Progress Notes Doug García MD - 03/13/2014 9:35 AM PDTFormatting of this note might be different from t he original. [facility] CLINIC NOTE Patient Name: Chaya Chan 73 y.o. Date of : 1940 MR Number: [id number] Date of Visit: 03/13/2014 Patient Active Problem List Diagnosis Hypothyroidism Hyperlipidemia Obstructive sleep apnea Restless legs syndrome (RLS) Benign essential hypertension Coronary artery disease Allergic reaction to contrast dye NSTEMI (non-ST elevated myocardial infarction) (HCC) Chronic diastolic CHF (congestive heart failure), NYHA class 2 (HCC) Stress hyperglycemia Paroxysmal atrial fibrillation (HCC) Postoperative anemia due to acute blood loss Hyponatremia Post pericardiotomy syndrome Pleural effusion on left Second degree AV block Dizziness of unknown cause Benign paroxysmal positional vertigo Carotid artery stenosis Subjective: Chaya Chan is a 73 y.o. female patient here today for follow up. We have been worki ng up the causation of her dizziness and nausea (with no bety syncope). She had a tilt tab le test on 03/10/14 she was a normal study thus ruling out neurocardiogenic syncope. She had carotid artery duplex studies which shows moderate stenosis of both MARLEE and LICA open (50- 69%). Compared to a previous study done 03/05/12, no significant change is noted. At this time, she still gets dizzy especially with physical movements and change in positio n. She is taking meclizine prn. She continues uses CPAP at night, averages 7 hours of sleep with the CPAP on plus oxygen. She also uses oxygen occasionally during the day, total of about 6 hours. She is not more s hort of breath than usual and she denies any chest pains. Patient's medications, allergies, past medical, surgical, social and family histories were reviewed and updated as appropriate. Patient's Medications New Prescriptions SCOPOLAMINE (TRANSDERM-SCOP) 1.5 MG Apply patch behind ear at least 4 hours before even t; do not cut Previous Medications ASCORBIC ACID (VITAMIN C) 1000 MG TABLET Take 1,000 mg by mouth Daily. ATORVASTATIN (LIPITOR) 40 MG TABLET Take 1 tablet by mouth Daily. FAMOTIDINE (PEPCID) 20 MG TABLET Take 1 tablet by mouth Daily. FERROUS GLUCONATE (FERGON) 324 mg TABLET Take 1 tablet 2 times daily (w/ breakfast & di nner). FOLIC ACID 1 MG TABLET Take 1 tablet by mouth Daily. HYDROCODONE-ACETAMINOPHEN 5-325 mg TABLET Take 1 tablet every 4 hours as needed for Nixon n. IBUPROFEN (ADVIL,MOTRIN) 600 MG TABLET Take 600 mg 2 times daily (with breakfast & dinn er). LEVOTHYROXINE 75 MCG TABLET Take 1 tablet every morning (before breakfast). LISINOPRIL (PRINIVIL, ZESTRIL) 5 MG TABLET Take 5 mg by mouth Daily. MAGNESIUM (GNP MAGNESIUM) 250 MG TABLET Take 250 mg by mouth 2 times daily. MECLIZINE (ANTIVERT) 25 MG TABLET Take 1 tablet by mouth every 6 hours as needed. METOPROLOL TARTRATE (LOPRESSOR) 25 MG TABLET Take 0.5 tablets by mouth 2 times daily. TRIAMTERENE-HYDROCHLOROTHIAZIDE 37.5-25 mg Take 1 capsule by mouth Daily. ZINC SULFATE 220 MG CAPSULE Take 220 mg by mouth 2 times daily. Allergies Allergen Reactions Iodine Anaphylaxis Diltiazem Hcl Latex Lidocaine Red Dye Review of Systems Constitutional - no recent weight loss, no fever, no chills, no night sweats, no weaknes s EENT- no vision changes, no eye pain, no earache, no sore throat Cardiovascular - no chest pain, no palpitations Respiratory - exertional dyspnea, no orthopnea or PND, no cough, no hemoptysis, no wheez ing Gastrointestinal - appetite good, bowel movements regular, no nausea, no abdominal pain , no melena or hematochezia Genitourinary - no dysuria, no gross hematuria, no nocturia Musculoskeletal - occasional joint pains, no back pain, no muscle aches Endocrine - no temperature intolerance, no excessive sweating Skin - no pruritus, no rash, no concerning skin lesions Neurological - no headaches, no tremors, no dizziness, no syncope Psychiatric - no anxiety, no depression, no insomnia Objective: BP 160/81 | Pulse 78 | Resp 20 | Ht 1.651 m (5' 5") | Wt 73.483 kg (162 lb) | BMI 26.96 kg/ m2 | SpO2 93% Gen Liang - alert, no distress, well-nourished HEENT - PERRLA, full EOM's, no icterus, no active nasal congestion, oral mucosa moist, p harynx clear Neck - supple, no carotid bruit, no lymphadenopathy, no JVD Lungs - clear breath sounds bilaterally, no rhonchi, no active wheezing, no crackles Heart - regular rhythm, normal rate, 1/6 sys murmur @LLSB, no gallop Abdomen - soft, non-tender, bowel sounds active, no masses, no organomegaly Extremities - no calf tenderness, no pedal edema, no clubbing or cyanosis, pulses intact Skin - turgor normal, no rash, no active lesions Neurologic - mental status clear, no focal deficits. Psychiatric - mood and affect normal Assessment and Plan: Chaya was seen today for follow-up. Diagnoses and associated orders for this visit: 1. Obstructive sleep apnea 2. Benign paroxysmal positional vertigo 3. Chronic diastolic congestive heart failure, nyha class 2 4. Paroxysmal atrial fibrillation 5. Benign essential hypertension 6. Coronary artery disease 7. Restless legs syndromes) 8. Carotid artery stenosis, bilateral 9. Hyperlipidemia 10. Hypothyroidism PLAN: Discussed the pathophysiology of benign paroxysmal positional vertigo and treatment modalit ies. I will now refer her to Physical Therapy for vertigo prevention/management program. Rx for transdermal scopolamine 1.5 g apply patch behind ear and may keep on for 72 hours. Refer to Vascular Surgery for opinion and management of carotid artery stenosis. We discussed the pathophysiology of sleep apnea [...] uraged the patient to continue regular usage. She has been taking a "natural" thyroid supplement. She is hypothyroid so I advised her to start taking levothyroxine 75 mcg daily. Continue the rest of her medications. Followup in 3 months. Electronically signed by: Doug García 03/13/2014 9:35 [facility] documented in this encou nter Plan of Treatment + + +--------+ + + | Name | Type | Priori | Associated Diagnoses | Order Schedule | | | | ty | | | + + +--------+ + + | Ambulatory referral | Outpatient | Routin | Benign paroxysmal | Ordered: 03/13/2014 | | to Physical Therapy | Referral | e | positional vertigo | | + + +--------+ + + | Ambulatory referral | Outpatient | Routin | Carotid artery | Ordered: 03/13/2014 | | to Vascular Surgery | Referral | e | stenosis, bilateral | | + + +--------+ + + documented as of this encounter Visit Diagnoses + + | Diagnosis | + + | Obstructive sleep apnea - Primary Obstructive sleep apnea (adult) (pediatric) | + + | Chronic diastolic CHF (congestive heart failure), NYHA class 2 (HCC) | + + | Paroxysmal atrial fibrillation (HCC) Atrial fibrillation | + + | Benign essential hypertension Essential hypertension, benign | + + | Coronary artery disease Coronary atherosclerosis of unspecified type of vessel, | | [place] or graft | + + | Restless legs syndrome (RLS) | + + | Hyperlipidemia Other and unspecified hyperlipidemia | + + | Hypothyroidism Unspecified hypothyroidism | + + | Benign paroxysmal positional vertigo | + + | Carotid artery stenosis, bilateral | + + documented in this encounter
--- OUTSIDE RECORDS SUMMARY | ~2019-07-30 | XMS | Encounter Summary ---
Demographics + + + | Address | [address] | | | [place] [address] | + + + | Home Phone | | + + + | Preferred Language | Unknown | + + + | Marital Status | | + + + | Judaism Affiliation | 1001 | + + + | Race | Unknown | + + + | Ethnic Group | Unknown | + + + Author + + + | Author | [facility] | | | and [place] | + + + | Organization | [facility] | | | [...] Team Providers + +------+ + | Care Electron Beam Welder Name | Role | Phone | + +------+ + | Doug García MD | PCP | | + +------+ + Reason for Visit Auth/Cert +--------+--------+ + + + + | Status | Reason | Specialty | Diagnoses / | Referred By | Referred To | | | | | Procedures | Contact | Contact | +--------+--------+ + + + + | | | | Diagnoses | | | | | | | NSTEMI | | | | | | | (non-ST | | | | | | | elevated | | | | | | | myocardial | | | | | | | infarction) | | | | | | | ([facility]) | | | | | | | NSTEMI | | | +--------+--------+ + + + + Encounter Details +--------+ + + + + | Date | Type | Department | Care Team | Description | +--------+ + + + + | 07/27/ | Hospital | [facility] | Ronnie Holman | Atrial fibrillation | | 2019 - | Encounter | MED CTR ICU [address] | MD Carrie [address] | with RVR ([facility]); | | | | Masterson Dougherty, | [address] [place] | NSTEMI (non-ST | | 07/29/ | | [place] [address] | [place] [address] | elevated myocardial | | 2019 | | [phone] | [phone] | infarction) ([facility]); | | | | | | Coronary artery | | | | | | disease, angina | | | | | | presence | | | | | | unspecified, | | | | | | unspecified vessel | | | | | | or lesion type, | | | | | | unspecified whether | | | | | | [place] or | | | | | | transplanted heart; | | | | | | Paroxysmal atrial | | | | | | fibrillation ([facility]); | | | | | | Hypothyroidism, | | | | | | unspecified type; | | | | | | SUMMER (obstructive | | | | | | sleep apnea) | +--------+ + + + + Social [...] do you have serious | No | 07/29/2019 | | difficulty hearing? | | | + + + + | Are you blind or do you have serious | No | 07/29/2019 | | difficulty seeing, even when wearing | | | | glasses? | | | + + + + | Do you have serious difficulty walking or | No | 07/29/2019 | | climbing stairs? (5 years old or older) | | | + + + + | Do you have difficulty dressing or bathing? | No | 07/29/2019 | | (5 years old or older) | | | + + + + | Because of a physical, mental, or emotional | Yes - someone else | 07/29/2019 | | condition, do you have difficulty doing | provides drives | | | errands alone such as visiting a doctor's | | | | office or shopping? [15 years old or | | | | older)] | | | + + + + + + + + | Cognitive Status | Response | Date of Assessment | + + + + | Because of a physical, mental, or emotional | No | 07/29/2019 | | condition, do you have serious difficulty | | | | concentrating, remembering, or making | | | | decisions? (5 years old or older) | | | + + + + documented as of this encounter Discharge Instructions Instructions Zahira Pyle MD - 07/29/2019Formatting of this note might be differen t from the original. Discharge Instructions for Atrial Fibrillation You have been diagnosed with an abnormal heart rhythm called atrial fibrillation.With thi s condition, your heart s 2 upper chambers quiver rather than squeeze the blood out in a n ormal pattern. This leads to an irregular and sometimes rapid heartbeat. Some people will de velop associated symptoms such as a flip-flopping heartbeat, chest pain, lightheadedness, or shortness of breath. Other people may have no symptoms at all. Atrial fibrillation is aleks us because it affects the heart s ability to fill with blood as it should. Blood clots may form. This increases the risk for stroke. Untreated atrial fibrillation can also lead to he art failure. Atrial fibrillation can be controlled. Withtreatment, mostpeople with atria l fibrillation lead normal lives. Treatment options Recommended treatment for atrial fibrillation depends on your age, symptoms, how long you h ave had atrial fibrillation, and other factors. You will havea complete evaluation to find out if you have any abnormalities that caused your heart to go into atrial fibrillation. Th is might be blocked heart arteries or a thyroid problem. Your doctor will assess your partic ular case and discuss choices with you. Treatment choices may include: Treating an underlyingdisorder that puts you at risk for atrial fibrillation. For exam ple, correcting an abnormal thyroid or electrolyte problem, or treating a blocked heart sarah ry. Restoring a normal heart rhythm with an electrical shock (cardioversion) or with an anti arrhythmic medicine (chemical cardioversion). Using medicine to control your heart rate in atrial fibrillation. Preventing therisk for blood clot and stroke using blood-thinning medicines. Your doct or will tell you what he or sherecommends. Choices may include aspirin, clopidogrel, warfa rin, dabigatran, rivaroxaban, apixaban, and edoxaban. Doing catheter ablation or a surgical maze procedure. Theseuse different methods to de stroy certain areas of heart tissue. This interrupts the electrical signals causing atrial f ibrillation.One of these procedures may be a choice whenmedicines do not work, or as an alternative to long-term medicine. Other treatment choices may be recommended for you by your doctor. Managing risk factors for stroke and preventing heart failure are important parts of anyt reatment plan for atrial fibrillation. Home care Take your medicines exactly as directed. Don t skip doses. Work with your doctor to find the right medicines and doses for you. Learn to take your own pulse. Keep a record of your results. Ask your doctor which pulse rates mean that you need medical attention. Slowing your pulse is often the goal of treatme nt. Ask your doctor if it s OK for you to use an automatic machine to check your pulse at home. Sometimes these machines don t count the pulse correctly when you have atrial fibril lation. Limit your intake of coffee, tea, cola, and other beverages with caffeine. Talkwith yo ur doctor about whether you should eliminate caffeine. Avoid bbrk-pcf-lyrcjbm medicines that have caffeine in them. Let your doctor know what medicines you take, including prescription and jnwe-dlr-vilccd r medicines, as well as any supplements. They interfere with some medicines given for atrial fibrillation. Ask your doctor about whetheryou can drink alcohol. Some people need to avoidalcohol to better treat atrial fibrillation. If you are taking blood-thinner medicines, alcohol ma y interfere with them by increasing their effect. Never take stimulants such as amphetamines or cocaine. These drugs can speed upyour he art rate and trigger atrial fibrillation. Follow-up care Follow up with your doctor, or as advised. When should I call my healthcare provider Call your healthcare provider right away if you have any of the following: Weakness Dizziness Fainting Fatigue Shortness of breath Chest pain with increased activity A change in the usual regularity of your heartbeat, or an unusually fast heartbeat Date Last Reviewed: 11/07/201519995584-8178 [employer]. [address] [place], [place] [id number]. All righ ts reserved. This information is [...] + + + +---------+ + + | acetaminophen | Take 1,000 mg by | | 0 | | | | (TYLENOL) 500 mg | mouth every 8 hours | | | | | | tablet | as needed for Fever | | | | | | | or Headaches. | | | | | + + + +---------+ + + | aspirin 81 MG | Take 1 tablet by | 30 | 1 | 07/29/19 | | | tablet | mouth Daily. | tablet | | 20 | | + + + +---------+ + + | atorvaSTATin | Take 1 tablet by | 30 | 1 | 07/29/19 | | | (LIPITOR) 80 MG | mouth nightly. | tablet | | 20 | | | tablet | | | | | | + + + +---------+ + + | docusate sodium | Take 100 mg by mouth | | 0 | | | | (COLACE) 100 mg | 2 times daily. | | | | | | capsule | | | | | | + + + +---------+ + + | famotidine | Take 20 mg by mouth | | 0 | | | | (PEPCID) 20 mg | Daily. | | | | | | tablet | | | | | | + + + +---------+ + + | isosorbide | Take 1 tablet by | 30 | 1 | 07/29/19 | | | mononitrate (IMDUR) | mouth Daily. | tablet | | 20 | | | 30 mg ER tablet | | | | | | + + + +---------+ + + | levothyroxine | Take 50 mcg by mouth | | 0 | | | | (SYNTHROID) 50 mcg | every morning | | | | | | tablet | (before breakfast). | | | | | + + + +---------+ + + | lisinopril | Take 1 tablet by | 30 | 1 | 07/29/19 | | | (PRINIVIL, ZESTRIL) | mouth Daily. | tablet | | 20 | | | 5 mg tablet | | | | | | + + + +---------+ + + | magnesium oxide | Take 1 tablet by | | 0 | 07/29/19 | | | (MAG-OX) 400 mg | mouth 3 times daily. | | | 20 | | | tablet | | | | | | + + + +---------+ + + | Methylcellulose, | Take 500 mg by mouth | | 0 | | | | Laxative, (CITRUCEL) | Daily. | | | | | | 500 MG TABS | | | | | | + + + +---------+ + + | metoprolol | Take 1 tablet by | 60 | 1 | 07/29/19 | | | tartrate (LOPRESSOR) | mouth 2 times daily. | tablet | | 20 | | | 100 mg tablet | | | | | [...] +---------+ + + | rivaroxaban | Take 20 mg by mouth | | 0 | | | | (XARELTO) 20 mg | Daily (with dinner). | | | | | | tablet | | | | | | + + + +---------+ + + | senna (SENNA) 8.6 | Take 1 tablet by | | 0 | | | | mg tablet | mouth Daily. | | | | | + + + +---------+ + + documented as of this encounter Progress Notes Cheyenne Ureña, PharmD - 07/29/2019 3:35 PM PST PHARMACY SERVICES: ADMISSION MEDICATION REVIEW Markie Chan is a 78 y.o. female admitted on 07/27/2019. Patient is a reliable historian. Location of Patient when reviewed: MEDICAL FLOOR Patient s prior to admit medication and over the counter (OTC) medications/herbal supplem ents list obtained from: X Verbal interview with patient who was ABLE TO RECALL SOME name, strength, and directions X Verbal interview assisted by child, Cielo, who is a reliable historian X Patient/family member provided MEDICATION BOTTLES and AVS from [facility] (07/21/2019 discharge) X Pharmacy list names: [facility] in [place] X [employer] insurance reported information X Care Everywhere X Outside Information Vaccines up to date? 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 Haider discontinued this medication. She has been taking three times daily for many years and never had any troubles with constipation until after Dr. Yudith loya told her to discontinue at Hospital discharge on 07/21/19 Metoprolol succinate 25 mg ER tab 3 tabs by mouth daily 1 tab by mouth daily Medication added: Medication: Prior to Admission Sig: Patient taking differently as: Lisinopril 20 mg tab 1 tab by mouth daily Rivaroxaban 20 mg tab 1 tab by mouth daily Famotidine 20 mg tab 1 tab by mouth daily Docusate sodium 100 mg cap 1 cap by mouth twice daily 1 cap by mouth daily Patient and daughter state Dr. Haider gave them the order verbally to only take once arlet y Acetaminophen 500 mg tab 1000 mg by mouth every 8 hours as needed for headache or fever Methylcellulose 500 mg tab 500 mg by mouth daily 500 mg by mouth for one dose then 1500 mg a few hours later when initial dose was ineffective. Patient took along with Senna Senna 8.6 mg tab 1 tab by mouth daily 8.6 mg by mouth for one dose then 25.8 mg a few hour s later when initial dose was ineffective. Patient took along with Senna Removed therapy: Vitamins and Minerals discontinued by Dr. Haider after hospital discharge: Medication: Prior to Admission Sig: Reason for Removal: Metoprolol succinate 50 mg 24 hr tab 1 tab by mouth daily Duplicate entry Ascorbic acid 1000 mg tab 1 tab by mouth daily Therapy complete Aspirin 81 mg tab 1 tab by mouth daily Therapy complete Capsicum, cayenne po Take by mouth daily Therapy complete Coenzyme q10 Take by mouth daily Therapy complete Cyanocobalamin 50 mcg tab 1 tab by mouth daily Therapy complete Meclizine 25 mg tab 1 tab by mouth daily Therapy complete Nutritional supplement Take by mouth daily Therapy complete Other: Medication: Prior to Admission Sig: Patient 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 Patient has not taken in months maybe even years Patient denies use of recreational substances, tobacco or alcohol. 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 HEPARIN PER PHARMACY: FOLLOW UP NOTE Markie Chan is a 78 y.o. female admitted on 07/27/2019 12:39 PM. Heparin infusion is o rdered. Recent Labs Lab 07/29/19 0349 07/28/19 1020 07/28/19 0339 07/27/19 2209 07/27/19 1308 HGB 10.6* -- 10.9* -- 10.6* HCT 32.0* -- 33.0* -- 32.6* PLT 265 -- 281 -- 270 INR -- -- 1.3* -- 1.4* HEPANTIXA 0.67 -- -- -- >1.10* PTT 78* 69* 60* 54* -- Diagnosis: ACS Protocol: CARDIAC DOSE 0.2- 0.4 units/mL OR aPTT 54-74 Date 07/27 07/27 07/28 07/28 07/29 07/29 Time of Xa test 2209 0339 1020 0349 1200 Xa 1.37 (on xarelto) - - - PTT 54 60 69 78 59 Platelets 270 - 281 - Current (units/hr) 0 800 800 800 units/hour 800 units/hour 750 units/hour Bolus (units) none - - - Hold (minutes) - - - New (units/hr) 800 No change No change 800 units/hour 750 units/hour * Weight at start of infusion 67.6 kg (adjustments based on this dosing weight) Lab unable to run PTT lab from original blood tube within 4 hours of draw; heparin gtt h ad already been started - will not have a baseline PTT for this patient. ASSESSMENT/PLAN: 1. Dosing plan: Any adverse events or interruptions in therapy: No Bolus: None Infusion: Continue current infusion rate ~11 units/kg/hr = 743 units/hour, rounded to 75 0 units/hour Per dosing protocol 2. Discussed and coordinated with nurse 3. Weight. Admission: Weight: 67.6 kg (149 lb 0.5 oz) Wt. Current: Weight: 66.7 kg ( 147 lb) 4. Monitoring - report to attending provider if: HGB < 8 g/dL or drop greater than 2 g/dL from baseline = 8.6g/dL HCT < 25% or drop greater than 6 points from baseline = 26.6% PLT < 100 K/uL or drop greater than 50% from baseline = 135 K/uL Rate greater than 25 units/kg/hr = 1690 units/hr ? CBC without diff every other day while on Heparin. ? aPTT 6hrs after infusion initiation and any rate change until 2 consecutive aPTT are in r natalie then daily. ? Next aPTT ordered for: 07/29 at 2100, if heparin to be continued. IMPROVE Bleeding Risk Score Calculator Table: Heparin Infusion Dosing and Monitoring Per P&T approved Heparin Infusion Protocol Electronically signed by: Feli Knight PharmD 07/29/2019 12:57 PM eli Knight, PharmD - 0 5:32 AM PST HEPARIN PER PHARMACY: FOLLOW UP NOTE Markie Chan is a 78 y.o. female admitted on 07/27/2019 12:39 PM. Heparin infusion is o rdered. Recent Labs Lab 07/29/19 0349 07/28/19 1020 07/28/19 0339 07/27/19 2209 07/27/19 1308 HGB 10.6* -- 10.9* -- 10.6* HCT 32.0* -- 33.0* -- 32.6* PLT 265 -- 281 -- 270 INR -- -- 1.3* -- 1.4* HEPANTIXA 0.67 -- -- -- >1.10* PTT 78* 69* 60* 54* -- Diagnosis: ACS Protocol: CARDIAC DOSE 0.2- 0.4 units/mL OR aPTT 54-74 Date 07/27 07/27 07/28 07/28 07/29 Time of Xa test 2208 338 1020 0349 Xa 1.37 (on xarelto) - - - PTT 54 60 69 78 Platelets 270 - 281 - Current (units/hr) 0 800 800 800 units/hour 800 units/hour Bolus (units) none - - - Hold (minutes) - - - New (units/hr) 800 No change No change 800 units/hour 750 units/hour * Weight at start of infusion 67.6 kg (adjustments based on this dosing weight) Lab unable to run PTT lab from original blood tube within 4 hours of draw; heparin gtt h ad already been started - will not have a baseline PTT for this patient. ASSESSMENT/PLAN: 1. Dosing plan: Any adverse events or interruptions in therapy: No Bolus: None Infusion: Decrease by 1 units/kg/hr to 750 units/kg/hr decrease by 1 unit/kg/hour to ~1 1 units/kg/hr = 743 units/hour, rounded to 750 units/hour Per dosing protocol 2. Discussed and coordinated with nurse 3. Weight. Admission: Weight: 67.6 kg (149 lb 0.5 oz) Wt. Current: Weight: 66.9 kg ( 147 lb 7.8 oz) 4. Monitoring - report to attending provider if: HGB < 8 g/dL or drop greater than 2 g/dL from baseline = 8.6g/dL HCT < 25% or drop greater than 6 points from baseline = 26.6% PLT < 100 K/uL or drop greater than 50% from baseline = 135 K/uL Rate greater than 25 units/kg/hr = 1690 units/hr ? CBC without diff every other day while on Heparin. ? aPTT 6hrs after infusion initiation and any rate change until 2 consecutive aPTT are in r natalie then daily. ? Next aPTT ordered for: 07/29 at 1200. IMPROVE Bleeding Risk Score Calculator Table: Heparin Infusion Dosing and Monitoring Per P&T approved Heparin Infusion Protocol Electronically signed by: Feli Knight PharmD 07/29/2019 5:32 AM Zahira Morrow MD - 07/28/2019 3:47 PM PSTFormatting of this note might be different from the origi nal. [facility] HOSPITALIST PROGRESS NOTE Patient: Markie Chan : 1940: Age: 78 y.o. MedRec: [id number] Admission date: 07/27/2019 Hospital day # : 1 Physician author: Zahira Pyle MD Today: 07/28/2019 Assessment and Hospital Course Active Hospital Problems Diagnosis NSTEMI (non-ST elevated myocardial infarction) Atrial fibrillation with RVR Resolved Hospital Problems No resolved problems to display. Admission HPI: 78 y.o. female with a history of HTN, HLD, CAD with PCI and CABG x4 12/2013, CVA history no residual deficits, SUMMER, hypothyroidism, pAfib on xarelto, presents with epis ode of chest pain occurring in am of presentation to [facility]. On examination at [place] the patient had 8/10 chest pain radiating to arm, occurring after exertion and continued at rest. Improved with nitro and by time of my evaluation had resolved, resolved prior to transfer. She was found to be in Afib with rvr and was given digoxin and metoprolol with improvement. Troponin was 0.38 on their evaluation. TSH elevated at 7.2 with normal T4 . BNP was 392. D dimer was 0.95. CXR revealed cardiomegaly, otherwise clear. 1L NS was also given. Has had multiple episodes of chest pain deemed NSTEMI's 07/09 and 07/20 during the last month. She has had recent stress with her passing away in June. Admitted in [place] 07/20-07/21 for NSTEMI, troponin increased to 8.2 at peak at that time. P miguel angel was to medically manage as patient was not agreeable to [facility] at that time. Started on xar elto during this admission, as well as new medicaitons of lisinopril and famotidine Plan # NSTEMI # CAD s/p 4V-CABG in 2013 - Troponin 0.38->1.7->2.89->3->2.86, EKG with ST depression in lateral leads - remains CP free, HDS, no e/o volume overload - h/o recurrent NSTEMI, last [facility] Aug 2017- patent VOGEL-LAD and patent SVG-RCA. 50% LAD beyo nd VOGEL touchdown. Occluded OM stent with occluded OM graft. Additional OM with a high grade ostial lesion. Occluded diag with occluded graft, no good intervention options - Dr. Guillory consulted, recommend medical management and stress test to r/o inducible ische mary especially in the LAD region (50% LAD on last cath) - Heparin gtt for another 24 hours (total 48 hours) d/c plavix, continue ASA, switched to h igh intensity statin, continue imdur, continue BB (adjust dose to control HR), f/u 2D Echo # pAfib - HR in 110s - increased Metoprolol to 50 mg BID, will further adjust dose as needed - hold Xarelto - cont Heparin gtt for another 24 hrs for #1 - continue tele # Hypothyroidism - cont levothyroxine # SUMMER - not on CPAP Subjective CC f/u NSTEMI NAEO, patient denies CP/SOB, reports that she has been stressed as her recently, no other complaints ROS See above Exam GA: NAD, AAOX3 Neck: no JVD, supple Cardiac: rrr, no m/g/r Lung: CTAB, normal respiratory effort Abdomen: soft, nt/nd, nabs Ext: no c/c/e Allergies: Allergies Allergen Reactions Iodine Anaphylaxis Latex Anaphylaxis Red Dye Other (See Comments) and Anaphylaxis "angina", numb lips Lidocaine Other (See Comments) Diltiazem Hcl Food Other (See Comments) Tomato Headache and Other (See Comments) Current Medications: Current Facility-Administered Medications Medication Dose Route Frequency Provider Last Rate Last Dose acetaminophen (TYLENOL) tablet 650 mg 650 mg Oral Q4H PRN Ronnie Holman MD aspirin EC tablet 81 mg 81 mg Oral Daily Ronnie Holman MD 81 mg at 07/28/19 0 832 atorvaSTATin (LIPITOR) tablet 80 mg 80 mg Oral Nightly Zahira Pyle MD famotidine (PEPCID) tablet 20 mg 20 mg Oral BID Ronnie Holman MD 20 mg at 07/05 0832 heparin in half-normal saline 100 units/mL infusion 800 Units/hr Intravenous [facility] marii Lobo PharmD 8 mL/hr at 07/27/192011 800 Units/hr at 07/27/192011 heparin per pharmacy Other Pharmacy Consult Ronnie Holman MD isosorbide mononitrate (IMDUR) ER tablet 30 mg 30 mg Oral Daily Henrique Vidal D 30 mg at 07/28/19 0832 levothyroxine (SYNTHROID) tablet 50 mcg 50 mcg Oral QAM AC Ronnie Holman MD 5 0 mcg at 07/28/19 0651 metoprolol tartrate (LOPRESSOR) injection 5 mg 5 mg Intravenous Q5 Min PRN Zahira Pyle MD metoprolol tartrate (LOPRESSOR) tablet 50 mg 50 mg Oral BID Zahira Pyle MD 50 mg at 07/28/19 0832 morphine injection 1-4 mg 1-4 mg Intravenous Q4H PRN Ronnie Holman MD nitroglycerin (NITROSTAT) SL tablet 0.4 mg 0.4 mg Sublingual Q5 Min PRN Ronnie Holman MD ondansetron (ZOFRAN) injection 4 mg 4 mg Intravenous Q6H PRN Ronnie Holman MD pharmacy consult - other medications/reasons Other Pharmacy Consult MD pat Olivares ed (SENOKOT) tablet 8.6 mg 8.6 mg Oral BID PRN Ronnie Holman MD Current Infusions: Heparin Infusion 800 Units/hr (07/27/192011) Objective Data Point of care glucose No results for input(s): POCGLU in the last 168 hours. Labs last 24 hours Recent Results (from the past 24 hour(s)) Troponin I Collection Time: 07/27/19 6:51 PM Result Value Ref Range Troponin I 1.70 (HH) <0.06 ng/mL ECG 12 lead Collection Time: 07/27/19 8:09 PM Result Value Ref Range VENTRICULAR RATE EKG 82 BPM QRS DURATION 104 ms Q-T INTERVAL 378 ms Q-T INTERVAL (CORRECTED) 441 ms QRS AXIS -43 degrees T AXIS 155 degrees INTERPRETATION TEXT Atrial fibrillation Left axis deviation Left ventricular hypertrophy ST & T wave abnormality, consider lateral ischemia Abnormal ECG When compared with ECG of 27-JUL-2019 13:07, (Unconfirmed) Vent. rate has decreased BY 46 BPM Confirmed by MARIELENA MCKOY MD ([id number]) on 07/28/2019 6:55:10 AM PTT Collection Time: 07/27/19 10:09 PM Result Value Ref Range aPTT 54 (H) 22 - 36 seconds Troponin I Collection Time: 07/28/19 1:27 AM Result Value Ref Range Troponin I 2.89 (HH) <0.06 ng/mL Basic Metabolic Panel Collection Time: 07/28/19 3:39 AM Result Value Ref Range Na 137 136 - 145 mmol/L K 4.0 3.4 - 5.1 mmol/L Cl 104 98 - 107 mmol/L CO2 26 20 - 31 mmol/L Anion Gap 7 3 - 16 mmol/L Glucose 84 60 - 106 mg/dL BUN 18 9 - 23 mg/dL Creatinine 1.06 (H) 0.55 - 1.02 mg/dL eGFR if not 50 (L) >=60 mL/min/1.73m2 Calcium 9.1 8.7 - 10.4 mg/dL BUN/Creatinine Ratio 17.0 CBC with Differential Collection Time: 07/28/19 3:39 AM Result Value Ref Range WBC 5.6 4.0 - 11.0 K/uL RBC 3.56 (L) 3.70 - 5.20 M/uL Hemoglobin 10.9 (L) 11.5 - 16.0 g/dL Hematocrit 33.0 (L) 34.0 - 47.0 % MCV 92.7 83.0 - 101.0 fL MCH 30.6 28.0 - 35.0 pg MCHC 33.0 32.0 - 36.0 g/dL RDW-CV 13.5 <15.0 % RDW-SD 45.7 35.1 - 46.3 fL Platelet Count 281 140 - 440 K/uL MPV 10.1 6.5 - 12.4 fL % Neutrophils 70.5 45.0 - 82.0 % % Lymphocytes 18.4 (L) 20.0 - 45.0 % % Monocytes 7.8 4.0 - 12.0 % % Eosinophils 2.3 0.0 - 5.0 % % Basophils 0.5 0.0 - 1.0 % % Immature Granulocytes 0.5 (H) 0.0 - 0.4 % Absolute Neutrophils 3.97 1.80 - 8.50 K/uL Absolute Lymphocytes 1.04 0.60 - 3.20 K/uL Absolute Monocytes 0.44 0.00 - 1.00 K/uL Absolute Eosinophils 0.13 0.00 - 0.40 K/uL Absolute Basophils 0.03 0.00 - 0.10 K/uL Absolute Immature Granulocytes 0.03 0.00 - 0.03 K/uL % nRBC 0 0 - 2 per 100 WBCs Absolute nRBC 0.00 0.00 - 0.01 K/uL Magnesium Collection Time: 07/28/19 3:39 AM Result Value Ref Range Magnesium 1.9 1.6 - 2.6 mg/dL Protime INR Collection Time: 07/28/19 3:39 AM Result Value Ref Range Prothrombin Time 15.7 (H) 11.3 - 13.9 seconds INR 1.3 (H) 0.9 - 1.1 PTT Collection Time: 07/28/19 3:39 AM Result Value Ref Range aPTT 60 (H) 22 - 36 seconds ECG 12 lead Collection Time: 07/28/19 4:44 AM Result Value Ref Range VENTRICULAR RATE EKG 89 BPM QRS DURATION 100 ms Q-T INTERVAL 376 ms Q-T INTERVAL (CORRECTED) 457 ms QRS AXIS -40 degrees T AXIS 110 degrees INTERPRETATION TEXT Atrial fibrillation Left axis deviation Left ventricular hypertrophy Nonspecific ST and T wave abnormality Lateral leads :Consider ischemia Abnormal ECG When compared with ECG of 27-JUL-2019 20:09, (Unconfirmed) T wave amplitude has increased in leads V5-6 Confirmed by MARIELENA MCKOY MD ([id number]) on 07/28/2019 6:56:51 AM Troponin I Collection Time: 07/28/19 7:25 AM Result Value Ref Range Troponin I 3.03 (HH) <0.06 ng/mL ECG 12 lead Collection Time: 07/28/19 7:46 AM Result Value Ref Range INTERPRETATION TEXT Not Confirmed PTT Collection Time: 07/28/19 10:20 AM Result Value Ref Range aPTT 69 (H) 22 - 36 seconds ECHO Complete Collection Time: 07/28/19 10:22 AM Result Value Ref Range Patient Weight (lbs) 149 lbs Patient Height 65 in LVIDd 4.23 cm FS 41 % LA volume 71.06 mL Ascending aorta 3.56 cm AV mean gradient 5.77 mmHg Aortic Valve Area by Continuity VTI 0.99 cm2 LVOT diameter 1.94 cm LVOT peak vane 48.89 cm/s LVOT peak VTI 8.97 cm AV peak vane 177 cm/s AV VTI 26.84 cm AV peak gradient 12.53 mmHg LA Volume Index 41 mL/m2 AV LVOT Peak Gradient 0.96 mmHg AV LVOT Mean Gradient 0.56 mmHg TR Peak Gradient 16 mmHg TR Velocity 199.63 cm LV Diastolic Length 4C 5.97 cm LV Systolic Area PSAX 13.17 cm2 LV Tavera's Biplane EF 43 % AV Acceleration Time 87.02 msec LV ED Volume (Tavera's) 54.14 ml LV ED Volume Index 31 ml/m2 LV ES Volume 31.06 ml LVOT Mean Velocity 34.91 cm/s AV Mean Velocity 113.62 cm/s LA/Aorta Ratio 1.5 LA Area 18.38 cm2 LA Major 0.2684 cm LV ES Volume Index 18 ml/m2 LV Area Diastolic 19.58 cm2 Vitals Heart Rate Rest 108 Vitals BP Systolic 122 Vitals BP Diastolic 87 Aortic Root Diameter 3.24 cm IVS Diastolic Thickness MM 1.74 cm LVPW Diastolic Thickness MM 1.4 cm IVS Systolic Thickness MM 2.13 cm LV Systolic Diameter MM 2.49 cm LVPW Systolic Thickness MM 1.49 cm AV Cusp Seperation MM 0.78 cm LA Systolic Diameter MM 4.87 cm TAPSE 0.76 cm Troponin I Collection Time: 07/28/19 1:09 PM Result Value Ref Range Troponin I 2.86 (HH) <0.06 ng/mL Micro results Microbiology Results (72 hrs) Procedure Component Value Units Date/Time Culture, MRSA [[id number]] (Normal) Collected: 07/27/19 1250 Order Status: Completed Lab Status: Final result Updated: 07/28/19 1153 Specimen: Tissue from Nares Culture Negative for MRSA by chromogenic agar method. Radiology results No results found. Vitals Ranges: Temp: [36.5 C (97.7 F)-37.1 C (98.8 F)] 37 C (98.6 F) Pulse: [72-108] 104 Resp: [8-24] 18 BP: (105-166)/(58-121) 121/72 Vitals: Temp: 37 C (98.6 F) BP: 121/72 Pulse: 104 Resp: 18 SpO2: 94 % SpO2 94 % on room air at flow rate L/min Zahira Pyle MD 07/28/2019 3:47 PM [facility] Portions of this chart may have been created with Granular voice recognition software. Occasi onal wrong-word or sound-alike substitutions may have occurred due to the inherent gilbert itations of voice recognition software. Please read the chart carefully and recognize, using context, where these substitutions have occurred Feli Dickson, PharmD - 07/28/2019 11:35 AM PSTFormatting of this note might be different from the origi nal. HEPARIN PER PHARMACY: FOLLOW UP NOTE Markie Chan is a 78 y.o. female admitted on 07/27/2019 12:39 PM. Heparin infusion is o rdered. Recent Labs Lab 07/28/19 1020 07/28/19 0339 07/27/19 2209 07/27/19 1308 HGB -- 10.9* -- 10.6* HCT -- 33.0* -- 32.6* PLT -- 281 -- 270 INR -- 1.3* -- 1.4* HEPANTIXA -- -- -- >1.10* PTT 69* 60* 54* -- Diagnosis: ACS Protocol: CARDIAC DOSE 0.2- 0.4 units/mL OR aPTT 54-74 Date 07/27 07/27 07/28 07/28 Time of Xa test 2204 0339 1020 Xa 1.37 (on xarelto) - - - PTT 54 60 69 Platelets 270 - 281 - Current (units/hr) 0 800 800 800 units/hour Bolus (units) none - - - Hold (minutes) - - - New (units/hr) 800 No change No change 800 units/hour * Weight at start of infusion 67.6 kg (adjustments based on this dosing weight) Lab unable to run PTT lab from original blood tube within 4 hours of draw; heparin gtt h ad already been started - will not have a baseline PTT for this patient. ASSESSMENT/PLAN: 1. Dosing plan: Any adverse events or interruptions in therapy: No Bolus: None Infusion: Continue current infusion rate of 800 units/hr (~12 units/kg/hr, rounded to ne arest 50 units) Per dosing protocol 2. Discussed and coordinated with nurse 3. Weight. Admission: Weight: 67.6 kg (149 lb 0.5 oz) Wt. Current: Weight: 67.9 kg ( 149 lb 11.1 oz) 4. Monitoring - report to attending provider if: HGB < 8 g/dL or drop greater than 2 g/dL from baseline = 8.6g/dL HCT < 25% or drop greater than 6 points from baseline = 26.6% PLT < 100 K/uL or drop greater than 50% from baseline = 135 K/uL Rate greater than 25 units/kg/hr = 1690 units/hr ? CBC without diff every other day while on Heparin. ? aPTT 6hrs after infusion initiation and any rate change until 2 consecutive aPTT are in r natalie then daily. ? Next aPTT ordered for: 07/29 with AM labs (@~0400). IMPROVE Bleeding Risk Score Calculator Table: Heparin Infusion Dosing and Monitoring Per P&T approved Heparin Infusion Protocol Electronically signed by: Feli Knight, PharmD 07/28/2019 11:35 AM Flower Trammell PharmD - 07/28/2019 4:36 AM PSTFormatting of this note might be different from the addis kwadwo. HEPARIN PER PHARMACY: FOLLOW UP NOTE Markie Chan is a 78 y.o. female admitted on 07/27/2019 12:39 PM. Heparin infusion is o rdered. Recent Labs Lab 07/28/19 0339 07/27/19220807/27/19 1308 HGB 10.9* -- 10.6* HCT 33.0* -- 32.6* PLT 281 -- 270 INR 1.3* -- 1.4* HEPANTIXA -- -- >1.10* PTT 60* 54* -- Diagnosis: ACS Protocol: CARDIAC DOSE 0.2- 0.4 units/mL OR aPTT 54-74 Date 07/27 07/27 07/28 Time of Xa test 2208 338 Xa 1.37 (on xarelto) - - PTT 54 60 Platelets 270 - 281 Current (units/hr) 0 800 800 Bolus (units) none - - Hold (minutes) - - New (units/hr) 800 No change No change * Weight at start of infusion 67.6 kg (adjustments based on this dosing weight) Lab unable to run PTT lab from original blood tube within 4 hours of draw; heparin gtt h ad already been started - will not have a baseline PTT for this patient. ASSESSMENT/PLAN: 1. Dosing plan: Any adverse events or interruptions in therapy: No Bolus: None Infusion: Continue current infusion rate of 800 units/hr (~12 units/kg/hr, rounded to ne arest 50 units) Per dosing protocol 2. Discussed and coordinated with nurse 3. Weight. Admission: Weight: 67.6 kg (149 lb 0.5 oz) Wt. Current: Weight: 67.9 kg ( 149 lb 11.1 oz) 4. Monitoring - report to attending provider if: HGB < 8 g/dL or drop greater than 2 g/dL from baseline = 8.6g/dL HCT < 25% or drop greater than 6 points from baseline = 26.6% PLT < 100 K/uL or drop greater than 50% from baseline = 135 K/uL Rate greater than 25 units/kg/hr = 1690 units/hr ? CBC without diff every other day while on Heparin. ? aPTT 6hrs after infusion initiation and any rate change until 2 consecutive aPTT are in r natalie then daily. ? Next aPTT ordered for: 07/28 @ 1000. IMPROVE Bleeding Risk Score Calculator Table: Heparin Infusion Dosing and Monitoring Per P&T approved Heparin Infusion Protocol Electronically signed by: Neisha Gillis PharmD 07/28/2019 4:36 AM Tarik Trammell ra, PharmD - 07/27/2019 11:00 PM PSTFormatting of this note might be different from the or iginal. HEPARIN PER PHARMACY: FOLLOW UP NOTE Markie Chan is a 78 y.o. female admitted on 07/27/2019 12:39 PM. Heparin infusion is o rdered. Recent Labs Lab 07/27/19220807/27/19 1308 HGB -- 10.6* HCT -- 32.6* PLT -- 270 INR -- 1.4* HEPANTIXA -- >1.10* PTT 54* -- Diagnosis: ACS Protocol: CARDIAC DOSE 0.2- 0.4 units/mL OR aPTT 54-74 Date 07/27 07/27 Time of Xa test 2208 Xa 1.37 (on xarelto) - PTT 54 Platelets 270 - Current (units/hr) 0 800 Bolus (units) none - Hold (minutes) - - New (units/hr) 800 No change * Weight at start of infusion 67.6 kg (adjustments based on this dosing weight) Lab unable to run PTT lab from original blood tube within 4 hours of draw; heparin gtt h ad already been started - will not have a baseline PTT for this patient. ASSESSMENT/PLAN: 1. Dosing plan: Any adverse events or interruptions in therapy: No Bolus: None Infusion: Continue current infusion rate of 800 units/hr (~12 units/kg/hr, rounded to ne arest 50 units) Per dosing protocol 2. Discussed and coordinated with nurse 3. Weight. Admission: Weight: 67.6 kg (149 lb 0.5 oz) Wt. Current: Weight: 67.6 kg ( 149 lb 0.5 oz) 4. Monitoring - report to attending provider if: HGB < 8 g/dL or drop greater than 2 g/dL from baseline = 8.6g/dL HCT < 25% or drop greater than 6 points from baseline = 26.6% PLT < 100 K/uL or drop greater than 50% from baseline = 135 K/uL Rate greater than 25 units/kg/hr = 1690 units/hr ? CBC without diff every other day while on Heparin. ? aPTT 6hrs after infusion initiation and any rate change until 2 consecutive aPTT are in r natalie then daily. ? Next aPTT ordered for: 07/28 @ 0400. IMPROVE Bleeding Risk Score Calculator Table: Heparin Infusion Dosing and Monitoring Per P&T approved Heparin Infusion Protocol Electronically signed by: Neisha Gillis, PharmD 07/27/2019 11:00 PM Sharon Graves PharmD - 07/27/2019 2:46 PM PSTFormatting of this note might be different from the origi nal. HEPARIN MONITORING AND DOSING PER PHARMACY Markie Chan is a 78 y.o. female admitted on 07/27/2019 12:39 PM. Heparin infusion is o rdered. 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 Bleeding risks Unknown History of liver dysfunction or ETOH abuse: NO History of HIT: NO Reason for no bolus or use of Cardiac dose in non-cardiac pts: no bolus d/t recent xarel to dose Recent Labs Lab 07/27/19 1308 HGB 10.6* HCT 32.6* PLT 270 INR 1.4* HEPANTIXA >1.10* Date 07/27 Time of Xa test Xa 1.37 (on xarelto) PTT Platelets 270 Current (units/hr) 0 Bolus (units) none Hold (minutes) - New (units/hr) 800 * Weight at start of infusion 67.6 kg (adjustments based on this dosing weight) Lab unable to run PTT lab from original blood tube within 4 hours of draw; heparin gtt h ad already been started - will not have a baseline PTT for this patient. ASSESSMENT/PLAN: 1. Communicate with prescriber within 24 hours of infusion start to discuss bleeding risks, clotting risks, goals for therapy, and any other prescriber preferences. 2. 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 Dosing plan: Any adverse events or interruptions in therapy: No, initiating infusion Bolus: None (d/t xarelto within 18 hrs) Infusion: Initiate at 800 units/hr Per dosing protocol 4. Discussed and coordinated with nurse 5. Weight. Admission: Weight: 67.6 kg (149 lb 0.5 oz) Wt. Current: Weight: 67.6 kg (149 lb 0.5 oz) 6. Monitoring - report to attending provider if: HGB < 8 g/dL or drop greater than 2 g/dL from baseline = 8.6g/dL HCT < 25% or drop greater than 6 points from baseline = 26.6% PLT < 100 K/uL or drop greater than 50% from baseline = 135 K/uL Rate greater than 25 units/kg/hr = 1690 units/hr ? Stat PTT, PT/INR, and CBC without diff. if not already done. Draw prior to giving heparin bolus or starting infusion, then initiate heparin therapy SHAWN after labs are drawn. Consider anti-Xa if prior oral Xa inhibitor or LMWH and evaluate paula l function. Anti-Xa level @ >1.10 (d/t prior xarelto dose) - will monitor heparin using PTT. ? CBC without diff every other day while on Heparin. ? Xa 6hrs after infusion initiation and any rate change until 2 consecutive Xa are in range then daily. ? If bolus is 5,000 units or greater, consider ordering Xa/PTT in 8 hours ? Next PTT ordered for: 07/27 @ 2200. IMPROVE Bleeding Risk Score Calculator Table: Heparin Infusion Dosing and Monitoring Per P&T approved Heparin Infusion Protocol Electronically signed by: Sharon Lobo PharmD 07/27/2019 4:26 PM documented in thi s encounter Plan of Treatment Not on filedocumented [...] + + documented in this encounter Results NE Nuclear Stress Test (Vasodilator) (07/29/2019 12:16 PM [...] +---------+ + + PTT (07/29/2019 12:02 PM PST) + +--------+ + + + | Component [...] + | [facility] | [address] | [place] | [phone] | | [facility] | | [address] | | | - LABORATORY | | | | + + + + + PTT (07/29/2019 3:49 AM PST) + +--------+ + + + | Component | Value | Ref Range | Performed | Pathologist | | | | | At | Signature | + +--------+ + + + | aPTT | 78 (H) | 22 - 36 seconds | [facility] | | | | | | [facility] [...] + + | [facility] | [address] | [place] | [phone] | | [facility] | | [address] | | | - LABORATORY | | [...] | | | | | M/uL | . [facility] | | | | | | [...] | | | | WBCs | [facility] | | | | | | MEDICAL | | | | | | CENTER - | | | | | | LABORATORY | | + + + + + + | Absolute | 0.00 | 0.00 - 0.01 | [facility] | | | nRBC | | K/uL [...] + | [facility] | [address] | [place], [place] | [phone] | | [facility] | | [address] | | | - LABORATORY | | | | + + + + + Magnesium (07/29/2019 3:49 AM PST) + +-------+ + + + | Component | Value | Ref Range | Performed | Pathologist | | | | | At | Signature | + +-------+ + + + | Magnesium | 2.0 | 1.6 - 2.6 mg/dL | [facility] | | | | | | [facility] [...] [address] | [place] | [phone] | | [facility] | | [address] | | | - LABORATORY | | | | + + + + + Basic Metabolic Panel (07/29/2019 3:49 AM PST) + + + [...] not | 48 (L)Comment: | >=60 | [facility] | | | | GLOMERULAR FILTRATION | mL/min/1.73m2 | [facility] | | | [place] | RATE,ESTIMATED | | MEDICAL | | | | mL/min/1.75p7Zcfk than | | CENTER - | | [...] | 9.0 | 8.7 - 10.4 | [facility] | | | | | mg/dL | [facility] | | | | | | MEDICAL | | | | | | CENTER - | | | | | | LABORATORY | | + + + + + + | BUN/Creatin | 18.2 | | [facility] | | | ine Ratio | | | [facility] | | | | | | [...] + + | [facility] | [address] | [place] | [phone] | | [facility] | | [address] | | | - LABORATORY | | | | + + + + + Heparin XA (07/29/2019 3:49 AM PST) + +-------+ + + + | Component | Value | Ref Range | Performed | Pathologist | | | | | At | Signature | + +-------+ + + + | Heparin, | 0.67 | 0.30 - 0.70 | [facility] | | | Unfractiona | | IU/mL | [facility] | | | son | | | [...] Therapeutic range: 0.30 - 0.70 IU/mL | [facility] | | | [facility] | | | [facility] | | | - LABORATORY | + + + + + + + + | Performing | Address | City/State/Zipcode | Phone Number | | Organization | | | | + + + + + | [facility] | [address] | [place] | [phone] | | [facility] | | [address] | | | - LABORATORY | | | | + + + + + Troponin I (07/29/2019 1:03 AM PST) + + + + + [...] | | | | | | [employer] | | | | | [...] by | | | | | | Sharon Rodriguez on | | | | | | [...] + | [facility] | [address] | [place] | [phone] | | [facility] | | [address] | | | - LABORATORY | | | | + + + + + Troponin I (07/28/2019 6:56 PM PST) + + + + + + | Component | Value | Ref Range | Performed | Pathologist | | | | | At | Signature | + + + + + + | Troponin I | 2.61 ()Comment: | <0.06 ng/mL | [facility] | | | | Consistent with previous | | [facility] | | | | results. | | MEDICAL | | | | Comment:Reference | | CENTER - | | | | Ranges: 0.00-0.06 = | | LABORATORY | | | | NORMAL >0.06 = | | | | | | SUSPICIOUS FOR | | | | | | MYOCARDIAL DAMAGE NOTE: | | | | | | Values greater than | | | | | | 0.78 ng/mL have been | | | | | | shown to be strongly | | | | | | associated with acute | | | | | | myocardial infarction. | | | | | | [employer] | | | | | [...] | troponin levels). | | | | + + + + + + + + | Specimen | + + | Blood | + + + + + + + | Performing | Address | City/State/Zipcode | Phone Number | | Organization | | | | + + + + + | [facility] | [address] | [place] | [phone] | | [facility] | | [address] | | | - LABORATORY | | | | + + + + + Troponin I (07/28/2019 1:09 PM PST) + + + + + + | Component | Value | Ref Range | Performed | Pathologist | | | | | At | Signature | + + + + + + | Troponin I | 2.86 ()Comment: | <0.06 ng/mL | [facility] | | | | Consistent with previous | | [facility] | | | | results. | | MEDICAL | | | | Comment:Reference | | CENTER - | | | | Ranges: 0.00-0.06 = | | LABORATORY | | | | NORMAL >0.06 = | | | | | | SUSPICIOUS FOR | | | | | | MYOCARDIAL DAMAGE NOTE: | | | | | | Values greater than | | | | | | 0.78 ng/mL have been | | | | | | shown to be strongly | | | | | | associated with acute | | | | | | myocardial infarction. | | | | | | [employer] | | | | | [...] | troponin levels). | | | | + + + + + + + + | Specimen | + + | Blood | + + + + + + + | Performing | Address | City/State/Zipcode | Phone Number | | Organization | | | | + + + + + | [facility] | 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 [...] | | | | Electronically signed by DIANA PRUETT MD (Interpreting physician) on | | [...] + | Carlos Martínez Results In - 07/30/2019 9:10 AM [facility] Transthoracic Echocardiography Report | | (TTE) Demographics Patient Name MILLIE ADEN Room Number 451 | | F[place]YD Patient Number [id number] Date of Study 07/28/2019 Visit Number | | [id number] Referring Physician SURAJ CHILDERS | | Director Network Development Number Date of 1940 Derek ORTIZ | | MD [facility] Physician Age 78 [...] | | + +---------+ + + PTT (07/28/2019 10:20 AM PST) + +--------+ + + + | Component | Value | Ref Range | Performed | Pathologist | | | | | At | Signature | + +--------+ + + + | aPTT | 69 (H) | 22 - 36 seconds | [address] | [place] | [phone] | | [facility] | | [address] | | | - LABORATORY | | | | + + + + + ECG 12 lead (07/28/2019 7:48 AM PST) + + + + + [...] | | | | MARIELENA MCKOY MD ([id number]) | | | | | | on [...] | | | + +---------+ + + Troponin I (07/28/2019 7:25 AM PST) + + + + + + | Component | Value | Ref Range | Performed | Pathologist | | | | | At | Signature | + + + + + + | Troponin I | 3.03 ()Comment: | <0.06 ng/mL | [facility] | [...] | | | | | | [employer] | | | | | [...] by | | | | | | Stephenie Hou on | | | | | | 07/28/2019 at 7:31 AM by | | | | | | Zay Mckenna. | | | | + + + + + + + + | Specimen | + + | Blood | + + + + + + + | Performing | Address | City/State/Zipcode | Phone Number | | Organization | | | | + + + + + | [facility] | [address] | [place] | [phone] | | [facility] | | [address] | | | - LABORATORY | | | | + + + + + ECG 12 lead (07/28/2019 4:44 AM PST) + + + + + + | Component | Value | Ref Range | Performed | Pathologist | | | | | At | Signature | + + + + + + | VENTRICULAR | 89 | BPM | [facility] | | | RATE EKG | | | | | + + + + + + | QRS | 100 | ms | [facility] | | | DURATION | | | | | + + + + + + | Q-T | 376 | ms | [facility] | | | INTERVAL | | | | | + + + + + + | Q-T | 457 | ms | [facility] | | | INTERVAL | | | | | | (CORRECTED) | | | | | + + + + + + | QRS AXIS | -40 | degrees | [facility] | | + + + + + + | T AXIS | 110 | degrees | [facility] | | + + + + + + | INTERPRETAT | Atrial fibrillationLeft | | [facility] | | | ION TEXT | axis deviationLeft | | | | | | ventricular | | | | | | hypertrophyNonspecific | | | | | | ST and T wave | | | | | | abnormality Lateral | | | | | | leads :Consider | | | | | | ischemiaAbnormal ECGWhen | | | | | | compared with ECG of | | | | | | 27-JUL-2019 20:09, | | | | | | (Unconfirmed)T wave | | | | | | amplitude has increased | | | | | | in leads V5-6Confirmed | | | | | | by MARIELENA MCKOY MD | | | | | | ([id number]) on 07/28/2019 | | | | | | 6:56:51 AM | | | | + + [...] | | + +---------+ + + PTT (07/28/2019 3:39 AM PST) + +--------+ + + + | Component | Value | Ref Range | Performed | Pathologist | | | | | At | Signature | + +--------+ + + + | aPTT | 60 (H) | 22 - 36 seconds | [...] + | [facility] | [address] | [place] | [phone] | | [facility] | | [address] | | | - LABORATORY | | | | + + + + + Magnesium (07/28/2019 3:39 AM PST) + +-------+ + + + | Component | Value | Ref Range | Performed | Pathologist | | | | | At | Signature | + +-------+ + + + | Magnesium | 1.9 | 1.6 - 2.6 mg/dL | [facility] | | | | | | [facility] | | | | [...] [facility] | [address] | [place], [place] | [phone] | | [facility] | | [address] | | | - LABORATORY | | | | + + + + + CBC with Differential (07/28/2019 3:39 AM PST) + + + + + [...] | | Eosinophils | | K/uL | [facility] | | | | | | MEDICAL | | | | | | CENTER - | | | | | | LABORATORY | | + + + + + + | Absolute | 0.03 | 0.00 - 0.10 | [facility] | | | Basophils | | K/uL | [facility] | | | | | | MEDICAL | | | | | | CENTER - | | | | | | LABORATORY | | + + + + + + | Absolute | 0.03 | 0.00 - 0.03 | [facility] | | | Immature | | K/uL | [facility] | | | Granulocyte | | | [...] | 0.00 | 0.00 - 0.01 | [facility] | | | nRBC | | K/uL [...] [address] | [place] | [phone] | | [facility] | | [address] | | | - LABORATORY | | | | + + + + + Basic Metabolic Panel (07/28/2019 3:39 AM PST) + + + + + + | Component | Value | Ref Range | Performed | Pathologist | | | | | At | Signature | + + + + + + | Na | 137 | 136 - 145 | [facility] | | | | | mmol/L | [facility] | | | | | | MEDICAL | | | | | | CENTER - | | | | | | LABORATORY | | + + + + + + | K | 4.0 | 3.4 - 5.1 | [facility] | | | | | mmol/L | [facility] | | | | | | MEDICAL | | | | | | CENTER - | | | | | | LABORATORY | | + + + + + + | Cl | 104 | 98 - 107 mmol/L | [facility] [...] + + + + | Glucose | 84 | 60 - 106 mg/dL | [facility] | | | | | | [facility] | | | | | | MEDICAL | | | | | | CENTER - | | | | | | LABORATORY | | + + + + + + | BUN | 18 | 9 - 23 mg/dL | [facility] | | | | | | [facility] | | | | | | MEDICAL | | | | | | CENTER - | | | | | | LABORATORY | | + + + + + + | Creatinine | 1.06 (H) | 0.55 - 1.02 | [facility] | | | | | mg/dL | [facility] | | | | | | MEDICAL | | | | | | CENTER - | | | | | | LABORATORY | | + + + + + + | eGFR if not | 50 (L)Comment: | >=60 | [facility] | | | | GLOMERULAR FILTRATION | mL/min/1.73m2 | [facility] | | | [place] | RATE,ESTIMATED | | MEDICAL | | | | mL/min/1.21m7Fstj than | | CENTER - | | [...] + + | Calcium | 9.1 | 8.7 - 10.4 | [facility] | | | | | mg/dL | [facility] | | | | | | MEDICAL | | | | | | CENTER - | | | | | | LABORATORY | | + + + + + + | BUN/Creatin | 17.0 | | [facility] | | | ine [...] [address] | [place] | [phone] | | [facility] | | [address] | | | - LABORATORY | | | | + + + + + Protime INR (07/28/2019 3:39 AM PST) + + + + + [...] + | [facility] | [address] | [place] | [phone] | | [facility] | | [address] | | | - LABORATORY | | | | + + + + + Troponin I (07/28/2019 1:27 AM PST) + + + + + + | Component | Value | Ref Range | Performed | Pathologist | | | | | At | Signature | + + + + + + | Troponin I | 2.89 ()Comment: | <0.06 ng/mL | [facility] | [...] | | | | | | [employer] | | | | | [...] by | | | | | | Sharon Rodriguez on | | | | | | 07/28/2019 at 2:10 AM by | | | | | | Zay Mckenna. | | | | + + + + + + + + | Specimen | + + | Blood | + + + + + + + | Performing | Address | City/State/Zipcode | Phone Number | | Organization | | | | + + + + + | [facility] | [address] | [place] | [phone] | | [facility] | | [address] | | | - LABORATORY | | | | + + + + + PTT (07/27/2019 10:09 PM PST) + +--------+ + + + | Component | Value | Ref Range | Performed | Pathologist | | | | | At | Signature | + +--------+ + + + | aPTT | 54 (H) | 22 - 36 seconds | [facility] | | | | | | [facility] | | | | | | [...] [address] | [place] | [phone] | | [facility] | | [address] | | | - LABORATORY | | | | + + + + + ECG 12 lead (07/27/2019 8:09 PM PST) + + + + + + | Component | Value | Ref Range | Performed | Pathologist | | | | | At | Signature | + + + + + + | VENTRICULAR | 82 | BPM | [facility] | | | RATE EKG | | | | | + + + + + + | QRS | 104 | ms | [facility] | | | DURATION | | | | | + + + + + + | Q-T | 378 | ms | [facility] | | | INTERVAL | | | | | + + + + + + | Q-T | 441 | ms | [facility] | | | INTERVAL | | | | | | (CORRECTED) | | | | | + + + + + + | QRS AXIS | -43 | degrees | [facility] | | + + + + + + | T AXIS | 155 | degrees | [facility] | | + + + + + + | INTERPRETAT | Atrial fibrillationLeft | | [facility] | | | ION TEXT | axis deviationLeft | | | | | | ventricular | | | | | | hypertrophyST & T wave | | | | | | abnormality, consider | | | | | | lateral ischemiaAbnormal | | | | | | ECGWhen compared with | | | | | | ECG of 27-JUL-2019 | | | | | | 13:07, | | | | | | (Unconfirmed)Vent. rate | | | | | | has decreased BY 46 | | | | | | BPMConfirmed by EAN | | | | | | MARIELENA FRANKEL ([id number]) on | | | | | | 07/28/2019 6:55:10 AM | | | | + + [...] | | | + +---------+ + + Troponin I (07/27/2019 6:51 PM PST) + + + + + + | Component | Value | Ref Range | Performed | Pathologist | | | | | At | Signature | + + + + + + | Troponin I | 1.70 ()Comment: | <0.06 ng/mL | [facility] | | | | Critical Result called | | [facility] | | | | to and read back by | | MEDICAL | | | | sharon rodriguez RN on | | CENTER - | | | | 07/27/2019 at 7:34 PM by | | LABORATORY | | | | Cassius Toro. | | | | | | Comment:Reference | | | | | | Ranges: 0.00-0.06 = | | | | | | NORMAL >0.06 = | | | | | | SUSPICIOUS FOR | | | | | | MYOCARDIAL DAMAGE NOTE: | | | | | | Values greater than | | | | | | 0.78 ng/mL have been | | | | | | shown to be strongly | | | | | | associated with acute | | | | | | myocardial infarction. | | | | | | [employer] | | | | | [...] | troponin levels). | | | | + + + + + + + + | Specimen | + + | Blood | + + + + + + + | Performing | Address | City/State/Zipcode | Phone Number | | Organization | | | | + + + + + | [facility] | [address] | [place] | [phone] | | [facility] | | [address] | | | - LABORATORY | | | | + + + + + Lipid Panel (07/27/2019 1:08 PM PST) + +-------+ + + + | Component | Value | Ref Range | Performed | Pathologist | | | | | At | Signature | + +-------+ + + + | Triglycerid | 76 | <=150 mg/dL | [facility] | | | es | | | [facility] | | | | | | MEDICAL | | | | | | CENTER - | | | | | | LABORATORY | | + +-------+ + + + | Cholesterol | 137 | <=200 mg/dL | [facility] | | | | | | [facility] | | | | | | MEDICAL | | | | | | CENTER - | | | | | | LABORATORY | | + +-------+ + + + | HDL | 45 | 40 - 60 mg/dL | [facility] | | | | | | [facility] | | | | | | MEDICAL | | | | | | CENTER - | | | | | | LABORATORY | | + +-------+ + + + | Chol/HDL | 3.0 | | [facility] | | | Ratio | | | [facility] | | | | | | MEDICAL | | | | | | CENTER - | | | | | | LABORATORY | | + +-------+ + + + | LDL, | 77 | <=130 mg/dL | [facility] | | | Calculated | | | [facility] | | | | [...] + | [facility] | [address] | [place] | [phone] | | [facility] | | [address] | | | - LABORATORY | | [...] | | | | | uIU/mL | [facility] | | | | [...] + + + + + | [facility] | [address] | [place] | [phone] | | [facility] | | [address] | | | - LABORATORY | | [...] + | [facility] | [address] | [place] | [phone] | | [facility] | | [address] | | | - LABORATORY | | | | + + + + + Heparin XA (07/27/2019 1:08 PM PST) + + + + + + | Component | Value | Ref Range | Performed | Pathologist | | | | | At | Signature | + + + + + + | Heparin, | >1.10 ()Comment: | 0.30 - 0.70 | [facility] | | | Unfractiona | Critical Result called | IU/mL | [facility] | | | son | to and read back by cyrus | | MEDICAL | | | | [facility] on 07/27/2019 | | CENTER - | | | | at 3:22 PM by Cassius | | LABORATORY | | | | Cortez. | | | | + + + + + + + + | Specimen | + + | Blood | + + + + + | Narrative | Performed At | + + + | Unfractionated Heparin (UFH) Therapeutic range: 0.30 - 0.70 IU/mL | [facility] | | Unofficial result 1.37 | [facility] | | | [facility] | | | - LABORATORY | + + + + + + + + | Performing | Address | City/State/Zipcode | Phone Number | | Organization | | | | + + + + + | [facility] | [address] | [place] | [phone] | | [facility] | | [address] | | | - LABORATORY | | | | + + + + + Troponin I (07/27/2019 1:08 PM PST) + + + + + + | Component | Value | Ref Range | Performed | Pathologist | | | | | At | Signature | + + + + + + | Troponin I | 0.38 (H)Comment: | <0.06 ng/mL | [facility] | | [...] | | | | | | [employer] | | | | | [...] | troponin levels). | | | | + + + + + + + + | Specimen | + + | Blood | + + + + + + + | Performing | Address | City/State/Zipcode | Phone Number | | Organization | | | | + + + + + | [facility] | [address] | [place] | [phone] | | [facility] | | [address] | | | - LABORATORY | | [...] + | [facility] | [address] | [place] | [phone] | | [facility] | | [address] | | | - LABORATORY | | | | + + + + + Emelyime INR (07/27/2019 1:08 PM PST) + + + + + + | Component | Value | Ref Range | Performed | Pathologist | | | | | At | Signature | + + + + + + | Prothrombin | 16.9 (H) | 11.3 - 13.9 | [facility] | | | Time | | seconds | [facility] | | | | | | MEDICAL | | | | | | CENTER - | | | | | | LABORATORY | | + + + + + + | INR | 1.4 (H)Comment: Usual | 0.9 - 1.1 | [facility] | | | | Oral Anticoagulation | | [facility] | | | | Range: 2.0 - [...] + | [facility] | [address] | [place] | [phone] | | [facility] | | [address] | | | - LABORATORY | | | | + + + + + Magnesium (07/27/2019 1:08 PM PST) + +-------+ + + + | Component | Value | Ref Range | Performed | Pathologist | | | | | At | Signature | + +-------+ + + + | Magnesium | 1.8 | 1.6 - 2.6 mg/dL | [facility] | | | | | | [facility] [...] + + + + + | [facility] | [address] | [place] | [phone] | | [facility] | | [address] | | | - LABORATORY | | [...] 15 | 9 - 23 mg/dL | [facility] | | | | | | [facility] | | | | | | [facility]ICAL | | | | | | CENTER - | | | | | | LABORATORY | | + + + + + + | Creatinine | 0.96 | 0.55 - 1.02 | [facility] | | | | | mg/dL | [facility] | | | | | | MEDICAL | | | | | | CENTER - | | | | | | LABORATORY | | + + + + + + | eGFR if not | 56 (L)Comment: | >=60 | [facility] | | | | GLOMERULAR FILTRATION | mL/min/1.73m2 | [facility] | | | [place] | RATE,ESTIMATED | | MEDICAL | | | | mL/min/1.77i7Pvia than | | CENTER - | | [...] 4.0 | 3.2 - 4.8 g/dL | [facility] | | [...] ST. | [address] | [place], [place] | [phone] | | [facility] | | [address] | | | - LABORATORY | | | | + + + + + CBC with Differential (07/27/2019 1:08 PM PST) + + + + + + | Component | Value | Ref Range | Performed | Pathologist | | | | | At | Signature | + + + + + + | WBC | 7.8 | 4.0 - 11.0 K/uL | [facility] | | | | | | [facility] | | | | | | MEDICAL | | | | | | CENTER - | | | | | | LABORATORY | | + + + + + + | RBC | 3.47 (L) | 3.70 - 5.20 | [facility] [...] + + + + | Hematocrit | 32.6 (L) | 34.0 - 47.0 % | [facility] | | | | | | [facility] | | | | | | MEDICAL | | | | | | CENTER - | | | | | | LABORATORY | | + + + + + + | MCV | 93.9 | 83.0 - 101.0 fL | [facility] | | | | | | [facility] | | | | | | MEDICAL | | | | | | CENTER - | | | | | | LABORATORY | | + + + + + + | MCH | 30.5 | 28.0 - 35.0 pg | [facility] | | | | | | [facility] | | | | | | MEDICAL | | | | | | CENTER - | | | | | | LABORATORY | | + + + + + + | MCHC | 32.5 | 32.0 - 36.0 | [facility] | | | | | g/dL | [facility] | | [facility] | | | MEDICAL | | | | | | CENTER - | | | | | | LABORATORY | | + + + + + + | RDW-CV | 13.4 | <15.0 % | [facility] | | | | | | [facility] | | | | | | MEDICAL | | | | | | CENTER - | | | | | | LABORATORY | | + + + + + + | RDW-SD | 45.8 | 35.1 - 46.3 fL | [facility] | | | | | | [facility] | | [facility] | | | MEDICAL | | | | | | CENTER - | | | | | | LABORATORY | | + + + + + + | Platelet | 270 | 140 - 440 K/uL | [facility] | | | Count | | | [facility] | | | | | | MEDICAL | | | | | | CENTER - | | | | | | LABORATORY | | + + + + + + | MPV | 9.8 | 6.5 - 12.4 fL | [facility] | | | | | | [facility] | | | | | | MEDICAL | | | | | | CENTER - | | | | | | LABORATORY | | + + + + + + | % | 87.2 (H) | 45.0 - 82.0 % | [facility] | | | Neutrophils | | | [facility] | | | | | | MEDICAL | | | | | | CENTER - | | | | | | LABORATORY | | + + + + + + | % | 7.5 (L) | 20.0 - 45.0 % | [facility] | | | Lymphocytes | | | [facility] | | | | | | MEDICAL | | | | | | CENTER - | | | | | | LABORATORY | | + + + + + + | % Monocytes | 4.4 | 4.0 - 12.0 % | [facility] | | | | | | [facility] | | | | | | MEDICAL | | | | | | CENTER - | | | | | | LABORATORY | | + + + + + + | % | 0.3 | 0.0 - 5.0 % | [facility] | | | Eosinophils | | | [facility] | | | | | | MEDICAL | | | | | | CENTER - | | | | | | LABORATORY | | + + + + + + | % Basophils | 0.3 | 0.0 - 1.0 % | [facility] | | | | | | [facility] | | | | | | MEDICAL | | | | | | CENTER - | | | | | | LABORATORY | | + + + + + + | % Immature | 0.3 | 0.0 - 0.4 % | [facility] | | | Granulocyte | | | [facility] | | | s | | | MEDICAL | | | | | | CENTER - | | | | | | LABORATORY | | + + + + + + | Absolute | 6.77 | 1.80 - 8.50 | [facility] | | | Neutrophils | | K/uL | [facility] | | | | | | MEDICAL | | | | | | CENTER - | | | | | | LABORATORY | | + + + + + + | Absolute | 0.58 (L) | 0.60 - 3.20 | [facility] | | | Lymphocytes | | K/uL | [facility] | | | | | | MEDICAL | | | | | | CENTER - | | | | | | LABORATORY | | + + + + + + | Absolute | 0.34 | 0.00 - 1.00 | [facility] | | | Monocytes | | K/uL | [facility] | | | | | | MEDICAL | | | | | | CENTER - | | | | | | LABORATORY | | + + + + + + | Absolute | 0.02 | 0.00 - 0.40 | [facility] | | | Eosinophils | | K/uL | [facility] | | | | | | MEDICAL | | | | | | CENTER - | | | | | | LABORATORY | | + + + + + + | Absolute | 0.02 | 0.00 - 0.10 | [facility] | | | Basophils | | K/uL | [facility] | | | | | | MEDICAL | | | | | | CENTER - | | | | | | LABORATORY | | + + + + + + | Absolute | 0.02 | 0.00 - 0.03 | [facility] | [...] [address] | [place] | [phone] | | [facility] | | [address] | | | - LABORATORY | | | | + + + + + ECG 12 lead (07/27/2019 1:07 PM PST) + + + + + + | Component | Value | Ref Range | Performed | Pathologist | | | | | At | Signature | + + + + + + | VENTRICULAR | 128 | BPM | [facility] | | | RATE EKG | | | | | + + + + + + | QRS | 104 | ms | [facility] | | | DURATION | | | | | + + + + + + | Q-T | 322 | ms | [facility] | | | INTERVAL | | | | | + + + + + + | Q-T | 470 | ms | [facility] | | | INTERVAL | | | | | | (CORRECTED) | | | | | + + + + + + | QRS AXIS | -40 | degrees | [facility] | | + + + + + + | T AXIS | 115 | degrees | [facility] | | + + + + + + | INTERPRETAT | Atrial fibrillation with | | [facility] | | | ION TEXT | rapid ventricular | | | | | | responseLeft axis | | | | | | deviationVoltage | | | | | | criteria for left | | | | | | ventricular | | | | | | hypertrophyLateral ST | | | | | | and T wave abnormalities | | | | | | which may be secondary | | | | | | to rate and/or | | | | | | ischemiaAbnormal ECGNo | | | | | | previous ECGs | | | | | | availableReconfirmed by | | | | | | MARIELENA MCKOY MD ([id number]) | | | | | | on 07/28/2019 6:55:39 AM | | | | + + [...] | | | + +---------+ + + Culture, MRSA (07/27/2019 12:50 PM PST) + + + + + + | Component | Value | Ref Range | Performed | Pathologist | | | | | At | Signature | + + + + + + | Culture | Negative for MRSA by | | [facility] | | | | chromogenic agar method. | | [facility] | | | [...] ST. | [address] | [place], [place] | [phone] | | [facility] | | [address] | | | - LABORATORY | | | | + + + + + documented in this encounter Visit Diagnoses + + | Diagnosis | + + | NSTEMI (non-ST elevated myocardial infarction) (HCC) - Primary Acute myocardial | | infarction, subendocardial infarction, episode of care unspecified | + + | Atrial fibrillation with RVR ([facility]) Atrial fibrillation | + + | Coronary artery disease, angina presence unspecified, unspecified vessel or lesion | | type, unspecified whether [place] or transplanted heart | + + | Paroxysmal atrial fibrillation ([facility]) Atrial fibrillation | + + | Hypothyroidism, unspecified type | + + | SUMMER (obstructive sleep apnea) Obstructive sleep apnea (adult) (pediatric) | + + documented in this encounter Administered Medications + +--------+---------+------+------+------+ | Medication Order | MAR | Action | Dose | Rate | Site | | | Action | Date | | | | + +--------+---------+------+------+------+ + +---+ | acetaminophen (TYLENOL) tablet | | | 650 mg 650 mg, Oral, EVERY 4 | | | HOURS PRN, Pain, or fever >= 38.6 | | | C (101.5 F), Starting Sat | | | 07/27/19 at 1256 | | + +---+ | | | + +---+ + +-------+ +-------+---+---+ | aminophylline injection 75 mg | Given | 07/29/19 | 75 mg | | | | 75 mg, Intravenous, ONCE PRN, per | | 20 8:41 | | | | | doctor, Starting 07/29/19 at | | AM PST | | | | | 0840, For 1 dose, Nuclear | | | | | | | Medicine | | | | | | + +-------+ +-------+---+---+ +---+---+ | | | +---+---+ + +-------+ +-------+---+---+ | aspirin EC tablet 81 mg 81 mg, | Given | 07/29/19 | 81 mg | | | | Oral, DAILY, First dose on Sun | | 20 9:52 | | | | | 07/28/19 at 0900, Do not cut or | | AM PST | | | | | crush., | | | | | | + +-------+ +-------+---+---+ +-------+ +-------+---+---+ | Given | 07/28/19 | 81 mg | | | | | 20 8:32 | | | | | | AM PST | | | | +-------+ +-------+---+---+ +---+---+ | | | +---+---+ + +-------+ +-------+---+---+ | atorvaSTATin (LIPITOR) tablet | Given | 07/27/19 | 40 mg | | | | 40 mg 40 mg, Oral, NIGHTLY, | | 20 8:13 | | | | | First dose on 07/27/19 at 2100 | | PM PST | | | | + +-------+ +-------+---+---+ +---+---+ | | | +---+---+ + +-------+ +-------+---+---+ | atorvaSTATin (LIPITOR) tablet | Given | 07/28/19 | 80 mg | | | | 80 mg 80 mg, Oral, NIGHTLY, | | 20 8:30 | | | | | First dose (after last | | PM PST | | | | | modification) on 07/28/19 at | | | | | | | 2100 | | | | | | + +-------+ +-------+---+---+ +---+---+ | | | +---+---+ + +-------+ +---------+--------+---+ | dipyridamole (PERSANTINE) 60mg | Given | 07/29/19 | 9.4714 | 378.9 | | | in 40 mL NS syringe 0.142 | | 20 9:00 | mg/min | mL/hr | | | mg/kg/min | | AM PST | | | | | 66.7 kg (378.856 mL/hr, rounded | | | | | | | to 378.9 mL/hr), Intravenous, | | | | | | | Administer over 4 Minutes, ONCE, | | | | | | | 07/29/19 at 0900, For 1 dose, | | | | | | | Nuclear Medicine | | | | | | + +-------+ +---------+--------+---+ +---+---+ | | | +---+---+ + +-------+ +-------+---+---+ | famotidine (PEPCID) tablet 20 | Given | 07/29/19 | 20 mg | | | | mg 20 mg, Oral, 2 TIMES DAILY, | | 20 9:51 | | | | | First dose on 07/27/19 at 2100 | | AM PST | | | | + +-------+ +-------+---+---+ +-------+ +-------+---+---+ | Given | 07/28/19 | 20 mg | | | | | 20 8:30 | | | | | | PM PST | | | | +-------+ +-------+---+---+ | Given | 07/28/19 | 20 mg | | | | | 20 8:32 | | | | | | AM PST | | | | +-------+ +-------+---+---+ +---+---+ | | | +---+---+ + + + + +-------+---+ | heparin in half-normal saline | Rate/Dos | 07/29/19 | 750 | 7.5 | | | 100 units/mL infusion 750 | e Change | 20 5:49 | Units/hr | mL/hr | | | Units/hr (7.5 mL/hr), at 7.5 | | AM PST | | | | | mL/hr, Intravenous, CONTINUOUS, | | | | | | | Starting 07/27/19 at 1530, | | | | | | | Pharmacy heparin protocol Rate 12 | | | | | | | units/kg/hr x 67.6 kg = 811.2 | | | | | | | units/hr; rounded to 800 | | | | | | | units/hr, | | | | | | + + + + +-------+---+ + + + +---------+---+ | New Bag | 07/28/19 | 800 | 8 mL/hr | | | | 20 9:15 | Units/hr | | | | | PM PST | | | | + + + +---------+---+ | Rate/Dose Verify | 07/28/19 | 800 | 8 mL/hr | | | | 20 7:37 | Units/hr | | | | | PM PST | | | | + + + +---------+---+ + +---+ | | | + +---+ | heparin per pharmacy PHARMACY | | | CONSULT, Starting 07/27/19 at | | | 1427, What is the indication for | | | this patient? ACS | | + +---+ | | | + +---+ + +-------+ +-------+---+---+ | isosorbide mononitrate (IMDUR) | Given | 07/29/19 | 30 mg | | | | ER tablet 30 mg 30 mg, Oral, | | 20 9:52 | | | | | DAILY, First dose on 07/28/19 | | AM PST | | | | | at 0900, Hold 07/29 dose for | | | | | | | stress test, | | | | | | + +-------+ +-------+---+---+ +-------+ +-------+---+---+ | Given | 07/28/19 | 30 mg | | | | | 20 8:32 | | | | | | AM PST | | | | +-------+ +-------+---+---+ +---+---+ | | | +---+---+ + +-------+ +--------+---+---+ | levothyroxine (SYNTHROID) | Given | 07/29/19 | 50 mcg | | | | tablet 50 mcg 50 mcg, Oral, | | 20 6:30 | | | | | DAILY BEFORE BREAKFAST, First | | AM PST | | | | | dose on 07/28/19 at 0730, Give | | | | | | | before breakfast., | | | | | | + +-------+ +--------+---+---+ +-------+ +--------+---+---+ | Given | 07/28/19 | 50 mcg | | | | | 20 6:51 | | | | | | AM PST | | | | +-------+ +--------+---+---+ + +---+ | | | + +---+ | metoprolol tartrate (LOPRESSOR) | | | injection 5 mg 5 mg, | | | Intravenous, EVERY 5 MIN PRN, for | | | HR consistently >110, Starting | | | 07/28/19 at 0728, Call MD if | | | no response after 3 doses, | | + +---+ | | | + +---+ | metoprolol tartrate (LOPRESSOR) | | | tablet 100 mg 100 mg, Oral, 2 | | | TIMES DAILY, First dose (after | | | last modification) on 07/29/19 | | | at 2100 | | + +---+ | | | + +---+ + +-------+ +-------+---+---+ | metoprolol tartrate (LOPRESSOR) | Given | 07/27/19 | 25 mg | | | | tablet 25 mg 25 mg, Oral, 2 | | 20 3:04 | | | | | TIMES DAILY, First dose on Sat | | PM PST | | | | | 07/27/19 at 1445 | | | | | | + +-------+ +-------+---+---+ +---+---+ | | | +---+---+ + +-------+ +-------+---+---+ | metoprolol tartrate (LOPRESSOR) | Given | 07/29/19 | 25 mg | | | | tablet 25 mg 25 mg, Oral, ONCE, | | 20 10:45 | | | | | 07/29/19 at 1015, For 1 dose | | AM PST | | | | + +-------+ +-------+---+---+ +---+---+ | | | +---+---+ + +-------+ +-------+---+---+ | metoprolol tartrate (LOPRESSOR) | Given | 07/28/19 | 50 mg | | | | tablet 50 mg 50 mg, Oral, 2 | | 20 8:32 | | | | | TIMES DAILY, First dose (after | | AM PST | | | | | last modification) on 07/28/19 | | | | | | | at 0900 | | | | | | + +-------+ +-------+---+---+ +---+---+ | | | +---+---+ + +-------+ +-------+---+---+ | metoprolol tartrate (LOPRESSOR) | Given | 07/29/19 | 75 mg | | | | tablet 75 mg 75 mg, Oral, 2 | | 20 9:51 | | | | | TIMES DAILY, First dose (after | | AM PST | | | | | last modification) on 07/28/19 | | | | | | | at 2100 | | | | | | + +-------+ +-------+---+---+ +-------+ +-------+---+---+ | Given | 07/28/19 | 75 mg | | | | | 20 8:30 | | | | | | PM PST | | | | +-------+ +-------+---+---+ + +---+ | | | + +---+ | morphine injection 1-4 mg 1-4 | | | mg, Intravenous, EVERY 4 HOURS | | | PRN, Pain, Starting 07/27/19 | | | at 1256, Slow IV push, not faster | | | than 2 mg/minute. If ineffective | | | or not tolerated, use | | | hydromorphone IV if ordered., | | + +---+ | | | + +---+ | nitroglycerin (NITROSTAT) SL | | | tablet 0.4 mg 0.4 mg, | | | Sublingual, EVERY 5 MIN PRN, | | | Chest pain, Starting 07/27/19 | | | at 2015, Maximum of 3 doses in 15 | | | minutes., | | + +---+ | | | + +---+ | ondansetron (ZOFRAN) injection | | | 4 mg 4 mg, Intravenous, EVERY 6 | | | HOURS PRN, Nausea, Vomiting, | | | Starting 07/27/19 at 1256, | | | First line agent, | | + +---+ | | | + +---+ | senna (SENOKOT) tablet 8.6 mg | | | 8.6 mg, Oral, 2 TIMES DAILY PRN, | | | Constipation, Starting Sat | | | 07/27/19 at 1256, If docusate | | | ineffective or not ordered., | | + +---+ | | | + +---+ + +-------+ + +---+---+ | technetium TC-99M sestamibi | Given | 07/29/19 | 10.9 | | | | (CARDIOLITE) injection 10.9 | | 20 8:41 | millicur | | | | millicurie 10.9 millicurie, | | AM PST | ies | | | | Intravenous, ONCE PRN, Other, | | | | | | | Starting Mon07/29/19 at 0840, For | | | | | | | 1 dose, Nuclear Medicine | | | | | | + +-------+ + +---+---+ +---+---+ | | | +---+---+ + +-------+ + +---+---+ | technetium TC-99M sestamibi | Given | 07/29/19 | 33.9 | | | | (CARDIOLITE) injection 33.9 | | 20 12:15 | millicur | | | | millicurie 33.9 millicurie, | | PM PST | ies | | | | Intravenous, ONCE PRN, Other, | | | | | | | Starting Mon07/29/19 at 1215, For | | | | | | | 1 dose, Nuclear Medicine | | | | | | + +-------+ + +---+---+ +---+---+ | | | +---+---+ documented in this encounter
--- OUTSIDE RECORDS SUMMARY | ~2019-07-30 | XMS | Encounter Summary ---
Demographics + + + | Address | [address] | | | [place] [address] | + + + | Home Phone | | + + + | Preferred Language | Unknown | + + + | Marital Status | | + + + | Uatsdin Affiliation | 1001 | + + + | Race | Unknown | + + + | Ethnic Group | Unknown | + + + Author + + + | Author | [facility] | | | and [place] | + + + | Organization | [facility] | | | and [place] | + + + | Address | Unknown | + + + | Phone | Unavailable | + + + Support + + +---------+ + | Name | Relationship | Address | Phone | + + +---------+ + | Kibmerly Lyon | ECON | Unknown | | + + +---------+ + | Frances Dustin | ECON | Unknown | | + + +---------+ + Care Team Providers + +------+ + | Care Director Of Property Management Name | Role | Phone | + +------+ + | Doug García MD | PCP | | + +------+ + Encounter Details +--------+ + + + + | Date | Type | Department | Care Team | Description | +--------+ + + + + | // | Transcribed | MONIKA MELCHOR | S[facility] Viera, | S/P CABG x 1 | | 2014 | Orders | [facility] | MD [address] | (Primary Dx) | | | | ELECTROD[facility]AGNOSTICS | [place] [address] | | | | | [address] | [phone] | | | | | [place], [place] | | | | | | [address] | | | | | | [phone] | | | +--------+ + + + [...] as of this encounter Plan of Treatment + +------+--------+ + + | Name | Type | Priori | Associated Diagnoses | Order Schedule | | | | ty | | | + +------+--------+ + + | ECG 12 lead | ECG | Routin | S/P CABG x 1 | Expected: | | | | e | | 12/23/2013, Expires: | | | | | | 12/20/2014 | + +------+--------+ + + documented as of this encounter Visit Diagnoses + + | Diagnosis | + + | S/P CABG x 1 - Primary Postsurgical aortocoronary bypass status | + + documented in this encounter"
--- OUTSIDE RECORDS SUMMARY | ~2019-07-30 | XMS | Encounter Summary ---
Demographics + + + | Address | [address] | | | [place] [address] | + + + | Home Phone | | + + + | Preferred Language | Unknown | + + + | Marital Status | | + + + | Gnosticism Affiliation | 1001 | + + + [...] Team Providers + +------+ + | Care Products Mechanical Design Engineer Name | Role | Phone | [...] sleep | | 2015 | Visit | [facility] | [address] | apnea (Primary Dx); | | | | Internal Medicine | [place] [address] | Benign essential | | | | [address] | [phone] | hypertension; | | | | [place], [place] | | Coronary artery | | | | [address] | | disease due to | | | | [phone] | | calcified coronary | | | [...] types of CPAP. Your doctor or CPAP electro mechanical technician will help you decide whic h [...] as body position, sleep stage, and snoring. [id number] [employer]. [address] [place] [address], [place] [address]. All righ ts reserved. This information is not intended as a substitute for professional medical care. Always follow your healthcare professional's instructions. documented in this encounter Progress Notes Doug García MD - 02/25/2015 10:05 PM PDTFormatting of this note might be different from t eleonora original. [facility] CLINIC NOTE Patient Name: Chaya Chan 74 y.o. Date of : 1940 MR Number: [id number] Date of Visit: 02/25/2015 Patient Active Problem [...] Electronically signed by: Doug García 02/25/2015 22:05 [facility] documented in this encou nter Plan [...]
--- OUTSIDE RECORDS SUMMARY | ~2019-07-30 | XMS | Encounter Summary ---
Demographics + + + | Address | [address] | | | [place] [address] | + + + | Home Phone | | + + + | Preferred Language | Unknown | + + + | Marital Status | | + + + | Sabianist Affiliation | 1001 | + + + | Race | Unknown | + + + | Ethnic Group | Unknown | + + + Author + + + | Author | [facility] | | | and [place] | + + + | Organization | [facility] | | [...] Team Providers + +------+ + | Care Assembler Engine Name | Role | Phone | + +------+ + | Doug García MD | PCP | | + +------+ + Encounter Details +--------+ + + + + | Date | Type | Department | Care Team | Description | +--------+ + + + + | 11/10/ | Hospital | [facility] | Doug García MD | | | 2017 | Encounter | [facility] | [address] | | | | | LABORAT[address] | [place] [address] | | | | | [address] | [phone] | | | | | [place], [place] | | | | | | [address] | | | | | | [phone] | | | +--------+ + + + [...] + +---------+ + + | | Take 25 mg by mouth | | 0 | | | | hydroCHLOROthiazide | Daily. | | | | 7 | | 25 mg tablet | | [...]
--- OUTSIDE RECORDS SUMMARY | ~2019-07-30 | XMS | Encounter Summary ---
Demographics + + + | Address | [address] | | | [place] [address] | + + + | Home Phone | | + + + | Preferred Language | Unknown | + + + | Marital Status | | + + + | Rastafari Affiliation | 1001 | + + + | Race | Unknown | + + + | Ethnic Group | Unknown | + + + Author + + + | Author | [facility] | | | and [place] | + + + | Organization | [facility] | | | [...] Team Providers + +------+ + | Care Fine Arts Teacher Name | Role | Phone | + +------+ + PCP | Unavailable | + +------+ + Encounter Details +--------+ + + + + | Date | Type | Department | Care Team | Description | +--------+ + + + + | 04/19/ | Hospital | [facility] | JuanCarmen Kaylan | | | 2005 - | Encounter | [facility] | | | | | | PHYSICAL THERAPY | | | | 06/05/ | | [address] | | | | 2005 | | [place], [place] | | | | | | [address] | | | | | | [phone] | | | +--------+ + + + [...] Mary Jo Glass - 05/22/2013 7:[address] [address] Rehabilitation Services DATE: 05/17/06 DICTATING THERAPIST: Mary [...]
--- OUTSIDE RECORDS SUMMARY | ~2019-07-30 | XMS | Encounter Summary ---
Demographics + + + | Address | [address] | | | [place] [address] | + + + | Home Phone | | + + + | Preferred Language | Unknown | + + + | Marital Status | | + + + | Presybeterian Affiliation | 1001 | + + + | Race | Unknown | + + + | Ethnic Group | Unknown | + + + Author + + + | Author | [facility] | | | and [place] | + + + | Organization | [facility] | | [...] Team Providers + +------+ + | Care Ag Equipment Field Service Technician Name | Role | Phone | + +------+ + PCP | Unavailable | + +------+ + Encounter Details +--------+ + + + + | Date | Type | Department | Care Team | Description | +--------+ + + + + | 07/30/ | Abstract | [facility] | Donald Mendiola, | SLEEP APNEA | | 2013 | | [facility] | [address] | OBSTRUCTIVE (Primary | | | | Internal Medicine | [address] [place], [place] | Dx); CORONARY | | | | [address] [facility] [address] | [id number] | ARTERY DISEASE | | | | [place], [place] | | | | | | [address] | | | | | | [phone] | | | +--------+ + + + [...] of unspecified type of vessel, | | [place] or graft | + + documented in this encounter"
--- OUTSIDE RECORDS SUMMARY | ~2019-07-30 | XMS | Encounter Summary ---
Demographics + + + | Address | [address] | | | [place] [address] | + + + | Home Phone | | + + + | Preferred Language | Unknown | + + + | Marital Status | | + + + | Hindu Affiliation | 1001 | + + + | Race | Unknown | + + + | Ethnic Group | Unknown | + + + Author + + + | Author | [facility] | | | and [place] | + + + | Organization | [facility] | | [...] Team Providers + +------+ + | Care Refrigerating Engineer Head Name | Role | Phone | + [...] Description | +--------+---------+ + + + | 01/30/ | Office | [facility] | Doug García MD | Post pericardiotomy | | 2013 | Visit | [facility] | [address] | syndrome (Primary | | | | Internal Medicine | [place] [address] | Dx); Chronic | | | | [address] | [phone] | diastolic CHF | | | | [place], [place] | | (congestive heart | | | | [address] | | failure), NYHA class | | | | [phone] | | 2 (HCC); Paroxysmal | | | | | | atrial fibrillation | | | | | | (HCC); Obstructive | | | | | | sleep apnea; Benign | | | | | | essential | | | | | | hypertension; | | | | | | Coronary artery | | | | | | disease; | | | | | | Hypothyroidism; | | | | | | Hyperlipidemia | +--------+---------+ + + + Social History [...] + + + | Blood Pressure | 118/78 | 01/30/2014 11:45 AM | | | | | PDT | | + + + + + | Pulse | 68 | 01/30/2014 11:45 AM | | | | | PDT | | + + + + + | Temperature | - | - | | + + + + + | Respiratory Rate | 20 | 01/30/2014 11:45 AM | | | | | PDT | | + + + + + | Oxygen Saturation | 95% | 01/30/2014 11:45 AM | | | | | PDT | | + + + + + | Inhaled Oxygen | - | - | | | Concentration | | | | + + + + + | Weight | 73 kg (161 lb) | 01/30/2014 11:45 AM | | | | | PDT | | + + + + + | Height | 165.1 cm (5' 5") | 01/30/2014 11:45 AM | | | | | PDT | | + + + + + | Body Mass Index | 26.79 | 01/30/2014 11:45 AM | | | | | PDT [...] Instructions Patient Instructions Doug García MD - 01/30/2014 12:02 PM PDTAtrial Fibrillation Atrial Fibrillation is a condition where [...] vision Extreme drowsiness, confusion, dizziness or fainting [id number] [facility], [address] [place] [address]. All rights reserve d. This information is not intended as a substitute for professional medical care. Always fo llow your healthcare professional's instructions. documented in this encounter Progress Notes Doug García MD - 01/30/2014 12:05 PM PDTFormatting of this note might be different from t he original. [facility] CLINIC NOTE Patient Name: Chaya Chan 73 y.o. Date of : 1940 MR Number: [id number] Date of Visit: 01/30/2014 Patient Active Problem List Diagnosis Hypothyroidism Hyperlipidemia Obstructive sleep apnea RESTLESS LEGS SYNDROME Benign essential hypertension Coronary artery disease CHRONIC SINUSITIS CEREBRAL ISCHEMIA Nausea Allergic reaction to contrast dye NSTEMI (non-ST elevated myocardial infarction) (HCC) Chronic diastolic CHF (congestive heart failure), NYHA class 2 (HCC) Stress hyperglycemia Paroxysmal atrial fibrillation (HCC) Postoperative anemia due to acute blood loss Hyponatremia Post pericardiotomy syndrome Pleural effusion on left Second degree AV block Subjective: Chaya Chan is a 73 y.o. female patient here today for follow up. Last time I saw Mr arlette Chan in clinic was in February 2012 for sleep followup. She has obstructive sleep apnea a nd uses CPAP regularly. She also has known coronary artery disease. On 12/16/13, the patient presented to the ED at [facility] with acute severe chest pains. She was promptly transferred to [facility]. She underwent cardiac catheterization on 12/17/13 which showed occlusion of her circumflex stent and high grade proximal RCA, mid LAD, and ostial diagonal disease. Ejection fraction was 40%. She was then discharged then admitted on 12/24/13 and underwent coronary artery bypass graft surgery x 3 vessels. The pos toperative course was uneventful and she was discharged on 01/02/14. On 01/06/14, the patient presented to [facility] with worsening shortness of breath and was admitt ed. She was found to have a moderate sized left pleural effusion and she was in acute on ch ronic CHF. These were attributed to post pericardiotomy syndrome. She was also in rapid at rial fibrillation, a rhythm that occurred during her previous hospitalization but which reso lved spontaneously. She was managed with nonsteroidals, diuretics, rate control. Eventuall y, her CHF as well as a left pleural effusion. However, she persisted in atrial fibrillatio n and was then transferred back to [facility] for amiodarone therapy induct ion. This was successful and the patient reverted back to sinus rhythm and was discharged t o home on 01/17/14. She has continued on amiodarone and metoprolol and chronic anticoagulati on therapy with warfarin. At this time, the patient is feeling much better. She denies any chest pain or palpitation s. Her breathing has been stable with most exertional dyspnea, no orthopnea or PND. She co ntinues to use her CPAP every night. Patient's medications, allergies, past medical, surgical, social and family histories were reviewed and updated as appropriate. Patient's Medications New Prescriptions No medications on file Previous Medications AMIODARONE (PACERONE) 200 MG TABLET Take 1 tablet by mouth 2 times daily. ASCORBIC ACID (VITAMIN C) 1000 MG TABLET Take 1,000 mg by mouth Daily. ATORVASTATIN (LIPITOR) 40 MG TABLET Take 1 tablet by mouth Daily. FAMOTIDINE (PEPCID) 20 MG TABLET Take 1 tablet by mouth Daily. FERROUS GLUCONATE (FERGON) 324 (38 FE) mg Take 1 tab 2 times daily (with breakfast & di nner). FOLIC ACID 1 MG TABLET Take 1 tablet by mouth Daily. HYDROCODONE-ACETAMINOPHEN (NORCO) 5-325 MG PER TABLET Take 1 tablet by mouth every 4 ho urs as needed for Pain. IBUPROFEN (ADVIL,MOTRIN) 600 MG TABLET Take 600 mg 2 times daily (with breakfast & dinn er). LEVOTHYROXINE 75 MCG TABLET Take 1 tablet every morning (before breakfast). MAGNESIUM (GNP MAGNESIUM) 250 MG TABLET Take 250 mg by mouth 2 times daily. METOPROLOL TARTRATE (LOPRESSOR) 25 MG TABLET Take 1 tablet by mouth 2 times daily. POTASSIUM CHLORIDE SA 10 MEQ TABLET Take 1 tablet by mouth 2 times daily. WARFARIN (COUMADIN) 2 MG TABLET Take by mouth. Pharmacy to dose ZINC SULFATE 220 MG CAPSULE Take 220 mg by mouth 2 times daily. Allergies Allergen Reactions Iodine Anaphylaxis Diltiazem Hcl Latex Lidocaine Red Dye Review of Systems Constitutional - no recent weight loss, no fever, no chills, no night sweats, no weaknes s EENT- no vision changes, no eye pain, no earache, no sore throat Respiratory - no cough, no hemoptysis, no wheezing Gastrointestinal [...] anxiety, no depression, no insomnia Objective: BP 118/78 | Pulse 68 | Resp 20 | Ht 1.651 m (5' 5") | Wt 73.029 kg (161 lb) | BMI 26.79 kg/ m2 | SpO2 95% Gen Liang - alert, no distress, well-nourished HEENT - PERRLA, full EOM's, no icterus, no active nasal congestion, oral mucosa moist, p harynx clear Neck - supple, no carotid bruit, no lymphadenopathy, no JVD Lungs - decreased breath sounds bilaterally, no rhonchi, no active wheezing, no crackles Chest wall - no tenderness or deformity, healed sternotomy scar Heart - regular rhythm, normal rate, no [...] and associated orders for this visit: 1. Coronary artery disease 2. Post pericardiotomy syndrome 3. Chronic diastolic congestive heart failure, NYHA class 2 (hcc) 4. Paroxysmal atrial fibrillation (hcc) 5. Obstructive sleep apnea 6. Benign essential hypertension 7. Hypothyroidism 8. Hyperlipidemia PLAN: Order a chest x-ray to check on the status of her left pleural effusion. I would assume th at it is much decreased by now. Continue current medications. We discussed dietary discretion and the need for regular exercise. We discussed the pathophysiology of sleep apnea [...] uraged the patient to continue regular usage. Followup in 3 months. Electronically signed by: Doug García 01/30/2014 12:05 [facility] documented in this encou nter Plan [...] + +--------+ + + + | POC PT/INR | Routin | 01/30/2014 | | Results for this | | FINGERSTICK | e | | | procedure are [...] + + | [facility] | [facility], [address] | [place] [address] | [phone] | | | Shyann | | | + + + + + POCT PT/INR fingerstick (01/30/2014) + +---------+ + + + | Component | Value | Ref Range | Performed | Pathologist | | | | | At | Signature | + +---------+ + + + | Prothrombin | | seconds | | | | Time | | | | | + +---------+ + + + | INR, POC | 1.5 (A) | 0.9 - 1.2 | | | + +---------+ + + + + + | Specimen | + + | Blood specimen | | (specimen) | + + documented in this encounter Visit Diagnoses + + | Diagnosis | + + | Post pericardiotomy syndrome - Primary Functional disturbances following cardiac | | surgery | + + | Chronic diastolic CHF (congestive heart failure), NYHA class 2 (HCC) | + + | Paroxysmal atrial fibrillation (HCC) Atrial fibrillation | + + | Obstructive sleep apnea Obstructive sleep apnea (adult) (pediatric) | + + | Benign essential hypertension Essential hypertension, benign | + + | Coronary artery disease Coronary atherosclerosis of unspecified type of vessel, | | [place] or graft | + + | Hypothyroidism Unspecified hypothyroidism | + + | Hyperlipidemia Other and unspecified hyperlipidemia | + + documented in this encounter
--- OUTSIDE RECORDS SUMMARY | ~2019-07-30 | XMS | Encounter Summary ---
Demographics + + + | Address | [address] | | | [place] [address] | + + + | Home Phone | | + + + | Preferred Language | Unknown | + + + | Marital Status | | + + + | Nondenominational Affiliation | 1001 | + + + | Race | Unknown | + + + | Ethnic Group | Unknown | + + + Author + + + | Author | [facility] | | | and [place] | + + + | Organization | [facility] | | [...] + +------+ + | Care Director Of Outreach Name | Role | Phone | + [...] Description | +--------+--------+ + + + | 02/27/ | Refill | [facility] | Doug García MD | Medication Refill | | 2013 | | [facility] | [address] | | | | | Internal Medicine | [place] [address] | | | | | [address] [facility] [address] | [phone] | | | | | [place], [place] | | | | | | [address] | | | | | | [phone] | | | +--------+--------+ + + + [...]
--- OUTSIDE RECORDS SUMMARY | ~2019-07-30 | XMS | Encounter Summary ---
Demographics + + + | Address | [address] | | | [place] [address] | + + + | Home Phone | | + + + | Preferred Language | Unknown | + + + | Marital Status | | + + + | Anabaptism Affiliation | 1001 | + + + | Race | Unknown | + + + | Ethnic Group | Unknown | + + + Author + + + | Author | [facility] | | | and [place] | + + + | Organization | [facility] | | | [...] Team Providers + +------+ + | Care Drawing Tracer Name | Role | Phone | + +------+ + | Doug García MD | PCP | | + +------+ + Reason for Visit Diagnostic/Screening (Urgent) +--------+ + + + + + | [...] | | and | [address] | | | | | giddiness | [address] | [place], [place] | | | | | Coronary | Ave. | [address] | | | | | atherosclero | [place], [place] | Phone: | | | | | sis of | [phone] | [phone] | | | | | unspecified | Phone: | Fax: | | | | | type of | [phone] | [phone] | | | | | vessel, | Fax: | | | | | | [place] or | [phone] | | | | | | graft | | | | | | | Procedures | | | | | | | VAS CAROTID | | | | | | | DUPLEX | | | | | | | BILATERAL | | | | | | | Carotid | | | | | | | Duplex, | | | | | | | Bilateral | | | +--------+ + + + + + Encounter Details +--------+ + + + + | Date | Type | Department | Care Team | Description | +--------+ + + + + | 02/27/ | Hospital | [facility] | Doug García MD | Dizziness of unknown | | 2014 | Encounter | [facility] | [address] | cause; Coronary | | | | [address] | [place] [address] | artery disease | | | | [place], [place] | [phone] | | | | | [address] | | | | | | [phone] | | | +--------+ + + + [...] | + +--------+ + + + | VAS CAROTID DUPLEX | Routin | 02/27/2014 | Dizziness of | Results for this | | BILATERAL | e | 9:06 AM | unknown cause | procedure are in the | | | | PDT | Coronary artery | results section. | | | | | disease | | + +--------+ + + + documented in this encounter Results VAS Carotid Duplex Bilateral (02/27/2014 9:06 AM PDT) + + | Specimen | + + | | + + + + + | Narrative | Performed At | + + + | [address] [place], [place] | [place] | | [address] DATE OF SERVICE: 02/27/2014 PRIMARY CARE: Doug GRIJALVA - | | MD Ricky ORDERING: Doug García MD NONINVASIVE CAROTID | [facility] | | VASCULAR EVALUATION The right and left sided extracranial carotid and | | | vertebral circulation was examined using ultrasound, pulsed wave | | | Doppler and color flow Doppler. The technical quality of the study | | | was fair. and The study was technically limited due to tortuous | | | vessels. Clinical Indications: 1. Dizziness of unknown cause | | | 2. Coronary artery disease Findings: Murmur: None | | | Right BP. 140/80 Right Carotid Bruit: None Right Subclavian Bruit: | | | None Left BP: 140/80 Left Carotid Bruit: None Left Subclavian Bruit: | | | None Right Side RCCAp 51 cm/sec Normal RCCAd 75 cm/sec less | | | than 50% Right Bulb 75 cm/sec less than 50% RECA 90 cm/sec | | | Turbulence RICAp 144/27 cm/sec 50-69% RICAd 91 cm/sec Normal | | | Right Vertebral 48 cm/sec Normal Right Subclavian 75 cm/sec Laminar | | | ICA:CCA ratio : 1.9 Left Side LCCAp 79 cm/sec Normal | | | LCCAd 67 cm/sec less than 50% Left Bulb 67 cm/sec less than 50% | | | LECA 58 cm/sec Turbulence LICAp 136/36 cm/sec 50-69% LICAd | | | 55 cm/sec Normal Left Vertebral 16 cm/sec Normal Left Subclavian | | | 74 cm/sec Laminar ICA:CCA ratio : 2.0 | | | | | | | | | Category % stenosis, | | | Normal/mild, PSV | | | <130 cm/sec, ICA:CCA <1.6 Moderate 50-69% , PSV 130-229 cm/sec, | | | EDV <70cm/sec, ICA:CCA 1.6-3.1 Severe >70%, PSV >230 cm/sec, EDV | | | >70cm/sec, ICA:CCA >3.2 Criteria from [facility] Proc. | | | [id number] | | | CONCLUSION: Moderate stenosis (50-69% diameter reduction) of | | | the MARLEE. Calcific plaque noted in the MARLEE. Mild stenosis (less | | | than 50% diameter reduction) of the RCCA. Calcific plaque noted in | | | the RCCA. Moderate stenosis (50-69% diameter reduction) of the | | | LICA. Calcific plaque noted in the LICA. Mild stenosis (less than | | | 50% diameter reduction) of the LCCA. Calcific plaque noted in the | | | LCCA. In comparing this study to the prior of 03-13-2012, | | | there has been no significant change. Recommend follow up in: As | | | clinically indicated Steven Phillips M.D., FACP, FACC | | | Electronically signed by: Sánchez Charles 02/27/2014 9:09 | | | | | + + + + + | Procedure Note | + + | Steven Phillips MD - 02/28/2014 10:37 AM PDT Formatting of this note might be | | different from the original.[address] [id number] | | [place] [address] DATE OF SERVICE: 02/27/2014PRIMARY CARE: Doug García MD | | ORDERING: Doug García MD NONINVASIVE CAROTID VASCULAR EVALUATIONThe right and left | | sided extracranial carotid and vertebral circulation was examined using ultrasound, | | pulsed wave Doppler and color flow Doppler. The technical quality of the study was fair. | | and The study was technically limited due to tortuous vessels.Clinical Indications: 1. | | Dizziness of unknown cause 2. Coronary artery disease Findings: Murmur: NoneRight BP. | | 140/80 Right Carotid Bruit: None Right Subclavian Bruit: NoneLeft BP: 140/80 Left | | Carotid Bruit: None Left Subclavian Bruit: NoneRight SideRCCAp 51 cm/sec Normal RCCAd 75 | | cm/sec less than 50% Right Bulb 75 cm/sec less than 50% RECA 90 cm/sec Turbulence | | RICAp 144/27 cm/sec 50-69% RICAd 91 cm/sec Normal Right Vertebral 48 cm/sec Normal Right | | Subclavian 75 cm/sec Laminar ICA:CCA ratio : 1.9 Left SideLCCAp 79 cm/sec Normal LCCAd | | 67 cm/sec less than 50% Left Bulb 67 cm/sec less than 50% LECA 58 cm/sec Turbulence | | LICAp 136/36 cm/sec 50-69% LICAd 55 cm/sec Normal Left Vertebral 16 cm/sec Normal | | Left Subclavian 74 cm/sec Laminar ICA:CCA ratio : 2.0 | | | | Category % stenosis, Normal/mild, | | PSV <130 cm/sec, ICA:CCA <1.6 Moderate 50-69% , PSV 130-229 cm/sec, EDV <70cm/sec, | | ICA:CCA 1.6-3.1 Severe >70%, PSV >230 cm/sec, EDV >70cm/sec, ICA:CCA >3.2 Criteria from | | [facility] Proc. [id number] CONCLUSION:Moderate | | stenosis (50-69% diameter reduction) of the MARLEE. Calcific plaque noted in the MARLEE.Mild | | stenosis (less than 50% diameter reduction) of the RCCA. Calcific plaque noted in the | | RCCA. Moderate stenosis (50-69% diameter reduction) of the LICA. Calcific plaque noted | | in the LICA.Mild stenosis (less than 50% diameter reduction) of the LCCA. Calcific | | plaque noted in the LCCA. In comparing this study to the prior of 03-13-2012, there has | | been no significant change.Recommend follow up in: As clinically indicatedMichael N. | | Daniele Phillips, FACP, FACCElectronically signed by: Sánchez Charles 02/27/2014 9:09 | |Right Bulb 75 cm/sec less than 50% | |RECA 90 cm/sec Turbulence | |RICAp 144/27 cm/sec 50-69% | |RICAd 91 cm/sec Normal | |Right Vertebral 48 cm/sec Normal | |Right Subclavian 75 cm/sec Laminar | |ICA:CCA ratio : 1.9 | | | | | |Left Side | |LCCAp 79 cm/sec Normal | |LCCAd 67 cm/sec less than 50% | |Left Bulb 67 cm/sec less than 50% | |LECA 58 cm/sec Turbulence | |LICAp 136/36 cm/sec 50-69% | |LICAd 55 cm/sec Normal | |Left Vertebral 16 cm/sec Normal | |Left Subclavian 74 cm/sec Laminar | |ICA:CCA ratio : 2.0 | | | |Category % stenosis, | |Normal/mild, PSV <130 cm/sec, ICA:CCA <1.6 | |Moderate 50-69% , PSV 130-229 cm/sec, EDV <70cm/sec, ICA:CCA 1.6-3.1 | |Severe >70%, PSV >230 cm/sec, EDV >70cm/sec, ICA:CCA >3.2 | |Criteria from [facility] Proc. [id number] | | | | | |CONCLUSION: | | | |Moderate stenosis (50-69% diameter reduction) of the MARLEE. Calcific plaque noted in the [place] A. | |Mild stenosis (less than 50% diameter reduction) of the RCCA. Calcific plaque noted in the RCCA. | | | |Moderate stenosis (50-69% diameter reduction) of the LICA. Calcific plaque noted in the LIC A. | |Mild stenosis (less than 50% diameter reduction) of the LCCA. Calcific plaque noted in the LCCA. | | | | | | | |In comparing this study to the prior of 03-13-2012, there has been no significant change. | | | |Recommend follow up in: As clinically indicated | | | |Steven Phillips M.D., FACP, FACC | | | |Electronically signed by: Sánchez Charles 02/27/2014 9:09 | | | | | | | | | | | | | + + + + + + + | Performing | Address | City[facility] | Phone Number | | Organization | | | | + + + + + | [place] | [address] | [place] [address] | [phone] | | - [facility] | [place] | | | + + + + + documented in this encounter Visit Diagnoses + + | Diagnosis | + + | Dizziness of unknown cause | + + | Coronary artery disease Coronary atherosclerosis of unspecified type of vessel, | | [place] or graft | + + documented in this encounter"
--- OUTSIDE RECORDS SUMMARY | ~2019-07-30 | XMS | Encounter Summary ---
Demographics + + + | Address | [address] | | | [place] [address] | + + + | Home Phone | | + + + | Preferred Language | Unknown | + + + | Marital Status | | + + + | Islam Affiliation | 1001 | + + + | Race | Unknown | + + + | Ethnic Group | Unknown | + + + Author + + + | Author | [facility] | | | and [place] | + + + | Organization | [facility] | | [...] Team Providers + +------+ + | Care Chain Maker Name | Role | Phone | + +------+ + PCP | Unavailable | + +------+ + Encounter Details +--------+ + + + + | Date | Type | Department | Care Team | Description | +--------+ + + + + | 11/21/ | Hospital | [facility] | Sina Belle MD | | | 2006 | Encounter | [facility] | [address] | | | | | EMERGENCY CENTER | [place] [address] | | | | | [address] | [phone] | | | | | [place], [place] | | | | | | [address] | | | | | | [phone] | | | +--------+ + + + [...]
--- OUTSIDE RECORDS SUMMARY | ~2019-07-30 | XMS | Encounter Summary ---
Demographics + + + | Address | [address] | | | [place] [address] | + + + | Home Phone | | + + + | Preferred Language | Unknown | + + + | Marital Status | | + + + | Alevism Affiliation | [id number] | + + + | Race | Unknown | + + + | Ethnic Group | Unknown | + + + Author + + + | Author | [facility] | | | and [place] | + + + | Organization | [facility] | [...] Team Providers + +------+ + | Care Procurement Engineer Name | Role | Phone | [...] | | | | | | | Chest pain, | | | | | | | unspecified | | | | | | | type | | | | | | | NSTEMI | | | | | | | Chest Pain | | | | | | | Procedures | | | | | | | CV LHC | | | +--------+--------+ + + + + Encounter Details +--------+ + + + + | Date | Type | Department | Care Team | Description | +--------+ + + + + | 03/28/ | Hospital | [facility] | Chris Roberts | NSTEMI (non-ST | | 2018 - | Encounter | [facility] | MD Saulo [address] [place] [address] | elevated myocardial | | | | CARDIAC MEDICAL [address] | infarction) (HCC); | | 03/30/ | | [address] [place], | [place] [address] | Coronary artery | | 2018 | | [place] [address] | [phone] | disease involving | | | | [phone] | | [place] coronary | | | | | | artery of [place] | | | | | | heart with angina | | | | | | pectoris ([facility]); | | | | | | Paroxysmal atrial | | | | | | fibrillation ([facility]); | | | | | | Chest pain, | | | | | | unspecified type; | | | | | | Second degree AV | | | | | | block; Benign | | | | | | essential | | | | | | hypertension; | | | | | | Bilateral carotid | | | | | | artery disease | | | | | | (HCC); Non-STEMI | | | | | | (non-ST elevated | | | | | | myocardial | | | | | | infarction) ([facility]) | +--------+ + + + + [...] + + + | Blood Pressure | 153/78 | 03/30/2018 8:00 AM | | | | | PDT | | + + + + + | Pulse | 67 | 03/30/2018 8:00 AM | | | | | PDT | | + + + + + | Temperature | 35.8 C (96.5 F) | 03/30/2018 8:00 AM | | | | | PDT | | + + + + + | Respiratory Rate | 16 | 03/30/2018 8:00 AM | | | | | PDT | | + + + + + | Oxygen Saturation | 96% | 03/30/2018 8:00 AM | | | | | PDT | | + + + + + | Inhaled Oxygen | - | - | | | Concentration | | | | + + + + + | Weight | 70.8 kg (156 lb 1.4 | 03/29/2018 11:35 PM | | | | oz) | PDT | | + + + + + | Height | 165.1 cm (5' 5") | 03/28/2018 6:26 PM | | | | | PDT | | + + + + + | Body Mass Index | 25.97 | 03/28/2018 6:26 PM | | | | | PDT [...] documented as of this encounter Discharge Summaries Sandra Leiva PA-C - 03/30/2018 11:07 AM PDTFormatting of this note might be di fferent from the original. PATIENT NAME: Chaya Chan : 1940: AGE: 77 y.o. ADMISSION DATE: 03/28/2018 DISCHARGE DATE: 03/30/2018 DATE OF SERVICE: 03/30/2018 PRIMARY CARE: MD Sandra Thao, PA-C DISCHARGE SUMMARY Principal Hospital Problem/Admission Diagnoses: Coronary artery disease NSTEMI Discharge Diagnoses: * Coronary artery disease Assessment & Plan Prior CABG Cath Aug 2017- patent VOGEL-LAD and patent SVG-RCA. 50% LAD beyond VOGEL touchdown. Occluded OM stent with occluded OM graft. Additional OM with a high grade ostial lesion. Occluded michelle g with occluded graft Plan: No good interventional options for her coronary artery disease, patient preference to manag e this conservatively with no further procedures unless absolutely necessary for refractory symptoms Beta candice and long-acting nitrate increased this admission Paroxysmal atrial fibrillation (HCC) Assessment & Plan Continues in NSR Benign essential hypertension Assessment & Plan Intermittent hypertension, patient does note chest discomfort correlates to elevated blood pressures Current systolic blood pressure 153 Plan: Anti-anginal therapy increased this admission which will concomitantly treat her blood pres sure Non-STEMI (non-ST elevated myocardial infarction) (HCC) Assessment & Plan Max troponin 8.2, currently 3.9 3rd NSTEMI this year No further chest pain and has ambulated this morning Plan: Beta candice, nitrates Medical management Plavix added Hospital Course: 77 y.o. year old female with h/o CAD followed by Dr. Christianson in the [place] office. Known CAD, prior CABG. NSTEMI in setting of Afib RVR Aug 2017. Cath as noted above. Med treated. Had an other [place] Sep 2017 with trop 15 that was med managed. Echo 2 weeks ago looked stable- EF 55%. Doing fine until day prior to admission when developed onset weakness, chest pain. She was transferred from [facility] and admitted Admit [facility] due to no beds at [facility]. Trop has risen to 28 per [facility] but only reached a maximum of 8.2 at [place], discharge troponin 3.9. EKG with nonspecific ST segment changes. Patient was treated with aspirin, heparin and loaded with Plavix. The plan was for her to undergo cardiac catheterization the following day but she remained pain free. After thoughtful discussion with patient, and Dr. Davey it was dec ided to forego cardiac catheterization and intensify medical therapy. On date of discharge her vital signs were stable, systolic blood pressure was still slightl y elevated but her medications had just been increased. She is able to walk around the floo r multiple times without angina. She remained in sinus rhythm. She was discharged on higher dose isosorbide, beta candice, outpatient aspirin 81 mg resume d plus Plavix. She has a very close follow-up appointment set up with Dr. Christianson and she is to keep that. Follow-Up: [facility] [id number] [place] [id number] [facility] [id number] On 04/05/[address] Christianson Disposition: Home/Self Care Condition at Discharge: Stable Discharge Medications New Medications Details clopidogrel 75 mg tablet Take 1 tablet by mouth Daily. aka: PLAVIX Changed Medications Details metoprolol succinate 25 mg 24 hr tablet Take 3 tablets by mouth Daily. What changed: medication strength how much to take aka: TOPROL-XL Unchanged Medications Details aspirin 81 MG tablet Take 1 tablet by mouth Daily. atorvaSTATin 40 mg tablet Take 1 tablet by mouth nightly. aka: LIPITOR CAYENNE PEPPER PO Take by mouth Daily. COQ-10 PO Take by mouth Daily. cyanocobalamin 50 MCG tablet Take 50 mcg by mouth Daily. aka: VITAMIN B-12 GNP MAGNESIUM 250 MG tablet Generic drug: magnesium (as oxide) Take 500 mg by mouth 3 times daily. isosorbide mononitrate 30 mg ER tablet Take 1 tablet by mouth Daily. aka: IMDUR levothyroxine 100 mcg tablet TAKE ONE TABLET BY MOUTH ONCE DAILY IN THE MORNING BEFORE BREAKFAST aka: SYNTHROID meclizine 25 mg tablet Take 1 tablet by mouth every 6 hours as needed. aka: ANTIVERT nitroglycerin 0.[address] 1 tablet under the tongue every 5 minutes as needed for Chest pain. aka: NITROSTAT vitamin C 1000 MG tablet Take 1,000 mg by mouth Daily. VITAMIN D MAINTENANCE PO Take by mouth Daily. Discontinued Medications apixaban 5 mg tablet aka: ELIQUIS hydroCHLOROthiazide 25 mg tablet potassium 99 mg tablet thyroid 325 MG Tabs aka: NATURE-THROID, WESTHROID zinc sulfate 220 mg capsule Procedures In Hospital: Chest x-ray CABG changes. No acute abnormality. Discharge Exam: Vital Signs: Temp: 35.8 C (96.5 F) BP: 153/78 Pulse: 67 Resp: 16 SpO2: 96 % Last Wt. Before discharge: Weight: 70.8 kg (156 lb 1.4 oz) Wt. Admission: Weight: 72.9 kg (160 lb 11.5 oz) GENERAL: Pleasant, in no apparent distress [...] SKIN: No rashes or skin breakdown. TELE: normal sinus rhythm Labs: Recent Labs 03/30/18 0445 03/29/18 1022 03/29/18 0248 03/29/18 0247 03/28/18195703/27/18 22503/27/18194603/27/18 1835 WBC 7.1 -- -- 3.7* -- -- -- 4.8 HGB 11.7 -- -- 11.5 -- -- -- 10.9* HCT 34.6 -- -- 33.4* -- -- -- 32.0* NA -- -- -- 142 -- -- -- 138 K -- -- -- 4.1 -- -- -- 3.6 CL -- -- -- 108 -- -- -- 101 CO2 -- -- -- 23 -- -- -- 27 BUN -- -- -- 15 -- -- -- 16 CREA -- -- -- 1.01* -- -- -- 1.08 GLU -- -- -- 153* -- -- -- 113 CALCIUM -- -- -- 9.0 -- -- -- 9.3 PTT -- 72* 75* -- 92* -- -- -- TROPONIN -- -- -- -- 3.905* 8.20* 1.61* 0.31* Lab Results Component Value Date CHOL 200 (H) 08/07/2017 HDL 63 08/07/2017 TRIG 145 08/07/2017 AVS Discharge Instructions: your medications have been increased Utilize subungual nitroglycerin as needed Keep follow-up appointment with Dr. Christianson If patient has any further questions or concerns prior to above, instructed to call our off ice. Time spent on discharge planning:less than 30 minutes Signed by: Sandra Barboza PA-C 03/30/2018, 11:10 Portions of this chart were created with PanelClaw voice recognition software. Occasional wro ng-word or "sound-alike" substitutions may have occurred due to the inherent limitations of voice recognition software. Please read the chart carefully and recognize, using context, w here those substitutions have occurred. [facility] Main Office - [address], [address] [place], [place] [address] Office: Medical Records [facility] [place], [place] [address] Main: Physician referral and transfer line: Physician referral fax line: Medical Records phone: Medical Records fax: [facility] [address] [place] [address] Main: Medical Records Electronically signed by Anabela Vizcarra MD at 018 12:16 PM PDT Associated attestation - Anabela Vizcarra MD - 03/30/2018 12:16 PM [id number] woman wit h known CAD status post prior CABG. She's had recurrent small non-ST elevation MIs with no good interventional options noted by coronary angiography. After careful discussion, she el ected to pursue medical management which remains reasonable. If she has recurrent angina/AC S in spite of revised medical therapy, repeat coronary angiography and consideration of OM C TO recanalization is a consideration.documented in this encounter Discharge Instructions AttachmentsThe following attachments cannot be sent through Care Everywhere.Aspirin, ASA ch ewable tablets (Stateless)Clopidogrel tablets (Stateless)Metoprolol extended-release tablets (En glish)Isosorbide Mononitrate extended-release tablets (Stateless)Heart Attack, Discharge Instr uctions for (Stateless)documented in this encounter Medications at Time of [...] documented as of this encounter Progress Notes Dio Davey MD - 03/29/2018 4:33 PM PDTFormatting of this note might be differe nt from the original. PATIENT NAME: Chaya Chan : 1940: AGE: 77 y.o. ADMISSION DATE: 03/28/2018 Hospital Day: Hospital Day: 2 Code Status: Full Code DATE OF SERVICE: 03/29/2018 Dio Davey MD CARDIOLOGY DAILY PROGRESS NOTE PRIMARY HOSPITAL PROBLEM: Non-STEMI CHIEF COMPLAINT: Mild chest discomfort this a.m., subsequently resolved. ASSESSMENT AND PLAN Paroxysmal atrial fibrillation (HCC) Assessment & Plan Presently sinus rhythm. Benign essential hypertension Assessment & Plan Blood pressure has been intermittently elevated, and she notices she is more likely to get chest discomfort if her blood pressures elevated. We'll try to keep this under good contro l. Non-STEMI (non-ST elevated myocardial infarction) (HCC) Assessment & Plan She was transferred here from [facility] through [facility] for considerat ion for catheterization. I personally reviewed her previous catheterization images that thomas bolaños done earlier this year in 08/2017. Note that this is her third non-STEMI this year. Her n ative circumflex OM is chronically occluded, and the graft to that vessel appears to have cl osed. Her VOGEL to the LAD and SVG to the right coronary territory were patent. There was s ome disease in the continuation of the circumflex before a moderate-sized more distal OM bra [facility]. When Dr. Christianson did her heart cath in August, he recommended continued medical therapy and conservative management with no good interventional options. There is a possibility th at her [place] circumflex/OM that is chronically occluded within the stented segment could be attempted again percutaneously, but after discussing options with the patient and her gabiba nd at length today, it is clear that it is her preference to manage this conservatively if p ossible with no further procedures unless absolutely needed for refractory symptoms. Theref ore, we will treat her medically for now with an increase in her beta candice and increase i n her long-acting nitrate. As already been on IV heparin for a couple of days after present ing to the ER on 03/27, so we will stop the heparin today, which is her request anyway since she doesn't like being hooked up to it. Note the troponin was reported to be up to 28 at [facility], but here is only 3.9. Continue aspirin, Plavix, and statin as well with the hopes of stabilizing her situation medically. If she fails that, we can revisit the idea of catheterization. She and her were also very clear today that she does not want to be resuscitated in the event of a cardiopulmonary arrest, so I have changed her code status to do not resuscitate. Hopefully she responds well to medical therapy and can make it home in a day or two. Note that the patient seems somewhat forgetful during our interaction tovida sargent, and she and her confirm that. Mini-Mental status testing by her primary care pro vider following discharge may be helpful. SUBJECTIVE DATA PATIENT SYMPTOMS/24 HOUR EVENTS: Scheduled for heart cath, but patient now asserts that s he would prefer to be treated medically if possible. REVIEW OF SYSTEMS: CV: mild chest discomfort this a.m., resolved Resp: no dyspnea OBJECTIVE DATA TELEMETRY: Sinus rhythm MEDICATIONS: Reviewed today Scheduled PRN aspirin 81 mg Oral Daily atorvaSTATin 40 mg Oral Nightly clopidogrel 75 mg Oral Daily levothyroxine 100 mcg Oral QAM AC metoprolol succinate 50 mg Oral Daily heparin infusion 800 Units/hr (03/28/182131) nitroglycerin in dextrose heparin, morphine, ondansetron, oxyCODONE-acetaminophen, polyethylene glycol, senna IMAGING: Reviewed today Xr Chest Pa And Lateral Result Date: 03/27/2018 CHEST PA AND LATERAL CLINICAL INFORMATION: Chest pain after exertion today. Prior history of heart attack COMPARISON: XR CHEST AP PORTABLE dated 08/24/2017; XR CHEST PA AND LATERAL yeimi ed 01/30/2014; XR CHEST PA AND LATERAL dated 01/12/2014 FINDINGS: Heart size is upper normal. Multiple monitoring leads are seen. Sternotomy wires and surgical clips are present. No ef fusions or focal infiltrates are seen. Pulmonary vascularity is within normal limits. IMPRE SSION: CABG changes. No acute abnormality. Signed by: Melina Novoa Sign Date/Time: 03/27 7:29 PM LABS: Reviewed today Recent Labs 03/29/18 1022 03/29/18 0248 03/29/18 0247 03/28/18 1958 03/27/18 2250 03/27/18 19403/27/18 1835 WBC -- -- 3.7* -- -- -- 4.8 HGB -- -- 11.5 -- -- -- 10.9* HCT -- -- 33.4* -- -- -- 32.0* PLT -- -- 142* -- -- -- 163 NA -- -- 142 -- -- -- 138 K -- -- 4.1 -- -- -- 3.6 CL -- -- 108 -- -- -- 101 CO2 -- -- 23 -- -- -- 27 BUN -- -- 15 -- -- -- 16 CREA -- -- 1.01* -- -- -- 1.08 GLU -- -- 153* -- -- -- 113 CALCIUM -- -- 9.0 -- -- -- 9.3 PTT 72* 75* -- 92* -- -- -- TROPONIN -- -- -- 3.905* 8.20* 1.61* 0.31* Lab Results Component Value Date CHOL 200 (H) 08/07/2017 HDL 63 08/07/2017 TRIG 145 08/07/2017 VITAL SIGNS: Reviewed today Vitals Current Average / Min / Max Temp 36.3 C (97.4 F) Temp Min: 35.8 C (96.4 F) Max: 36.8 C (98.3 F) BP 148/79 BP Min: 131/75 Max: 173/93 HR 74 Pulse Av.6 Min: 64 Max: 79 RR 16 Resp Av.8 Min: 16 Max: 18 Sats 97 % on L/min room air Weight 73.5 kg (162 lb 0.6 oz) Admit: 72.9 kg (160 lb 11.5 oz) INTAKE/OUTPUT Intake/Output Summary (Last 24 hours) at 03/29/18 1633 Last data filed at 03/29/18 0637 Gross per 24 hour Intake 556.9 ml Output 1475 ml Net -918.1 ml PHYSICAL EXAM Admit Weight: Weight: 72.9 kg (160 lb 11.5 oz) Current weight: Weight: 73.5 kg (162 lb 0.6 oz) Body mass index is 26.96 kg/m. GENERAL: Pleasant, talkative in no acute [...] place and person. Normal affect. Signed by: Dio Davey MD 03/29/2018, 16:33 Portions of this chart were created with PanelClaw voice recognition software. Occasional wro ng-word or "sound-alike" substitutions may have occurred due to the inherent limitations of voice recognition software. Please read the chart carefully and recognize, using context, w here those substitutions have occurred. [place], Nadine Kimbrough RN - 03/28/2018 6:30 PM PDTPt transferred from [facility] for chest pain/Nstemi. A/O, VSS upon arrival. No complaints of chest pain. SR on tele. Sats 97% on RA. Heparin gtt continued at 950 units/hr per Dr. Roberts, Nitro gtt dcd. Will restart when new orders placed and titrate for SBP <140 and for CP Awaiting rest of orders. documented in this encounter Plan of Treatment Not on filedocumented as of this encounter Procedures + +--------+ + + + | Procedure Name | Priori | Date/Time | Associated Diagnosis | Comments | | | ty | | | | + +--------+ + + + | CBC NO DIFFERENTIAL | Routin | 03/30/2018 | | Results for this | | | e | 4:45 AM | | procedure are in the | | | | PDT | | results section. | + +--------+ + + + | PTT | Timed | 03/29/2018 | | Results for this | | | | 10:22 AM | | procedure are in the | | | | PDT | | results section. | + +--------+ + + + | PTT | Timed | 03/29/2018 | | Results for this | | | | 2:48 AM | | procedure are in the | | | | PDT | | results section. | + +--------+ + + + | CBC NO DIFFERENTIAL | Routin | 03/29/2018 | | Results for this | | | e | 2:47 AM | | procedure are in the | | | | PDT | | results section. | + +--------+ + + + | BASIC METABOLIC | Routin | 03/29/2018 | | Results for this | | PANEL | e | 2:47 AM | | procedure are in the | | | | PDT | | results section. | + +--------+ + + + | TROPONIN I | Timed | 03/28/2018 | | Results for this | | | | 7:58 PM | | procedure are in the | | | | PDT | | results section. | + +--------+ + + + | PTT | Timed | 03/28/2018 | | Results for this | | | | 7:58 PM | | procedure are in the | | | | PDT | | results section. | + +--------+ + + + | LABS - EXTERNAL SCAN | | 03/28/2018 | | Results for this | | | | 12:00 AM | | procedure are in the | | | | PDT | | results section. | + +--------+ + + + | ECG - EXTERNAL SCAN | | 03/28/2018 | | Results for this | | | | 12:00 AM | | procedure are in the | | | | PDT | | results section. | + +--------+ + + + documented in this encounter Results CBC no Differential (03/30/2018 4:45 AM PDT) + + + +-------- -----+ + | Component | Value | Ref Range | Perform ed | Pathologist | | | | | At | Signature | + + + +-------- -----+ + | WBC | 7.1 | 3.8 - 11.0 K/uL | [facility] | | | | | | [facility] | | | | | | [facility] | | | | | | [facility] | | | | | | [facility] | | | | | | [facility] [place] | | | | | | [facility] | | + + + +-------- -----+ + | RBC | 3.79 | 3.70 - 5.10 | [facility] | | | | | M/uL | [facility] | | | | | | [facility] | | | | | | [facility] | | | | | | CENTER | | | | | | [facility] | | | | | | [facility] | | + + + +-------- -----+ + | Hemoglobin | 11.7 | 11.3 - 15.5 | [facility] | | | | | g/dL | [facility] | | | | | | [facility] | | | | | | [facility] | | | | | | [facility]ENTER | | | | | | [facility] | | | | | | [facility] | | + + + +-------- -----+ + | Hct | 34.6 | 34.0 - 46.0 % | [facility] | | | | | | [facility] | | | | | | [facility] | | | | | | [facility] | | | | | | [facility] | | | | | | [facility] | | | | | | [facility] | | + + + +-------- -----+ + | MCV | 91.3 | 80.0 - 100.0 fL | [facility] | | | | | | [facility] | | | | | | [facility] | | | | | | [facility] | | | | | | [facility] | | | | | | [facility] | | | | | | [facility] | | + + + +-------- -----+ + | MCH | 30.9 | 27.0 - 34.0 pg | [facility] | | | | | | [facility] | | | | | | [facility] | | | | | | [facility] | | | | | | [facility] | | | | | | [facility] [place] | | | | | | [facility] | | + + + +-------- -----+ + | MCHC | 33.9 | 32.0 - 35.5 | [facility] | | | | | g/dL | [facility] | | | | | | [facility] | | | | | | [facility] | | | | | | [facility] | | | | | | [facility] | | | | | | [facility] | | + + + +-------- -----+ + | RDW-CV | 14.0 | 11.0 - 15.5 % | [facility] | | | | | | [facility] | | | | | | [facility] | | | | | | [facility] | | | | | | [facility] | | | | | | [facility] | | | | | | [facility] | | + + + +-------- -----+ + | Platelet | 173 | 150 - 400 K/uL | [facility] | | | Count | | | [facility] | | | | | | [facility] | | | | | | [facility] | | | | | | [facility]ENTER | | | | | | [facility] | | | | | | [facility] | | + + + +-------- -----+ + | MPV | 9.7Comment: Performed | 7.5 - 11.2 fL | [facility] | | | | by [facility] [address], | | [facility]CR[facility] | | | | [place] [address] | | HEART | | | |Performed by [facility] [address], [place] [address] | | MEDICAL | | | | | | CENTER | | | | | | [facility] | | | | | | [facility] | | + + + +-------- -----+ + + + | Specimen | + + | Blood specimen | | (specimen) | + + + + + + + | Performing | Address | City/State/Zipcode | Phone Number | | Organization | | | | + + + + + | [facility] | [address] | [place] [address] | | | [facility] | | | | | [facility] | | | | + + + + + PTT (03/29/2018 10:22 AM PDT) + + + + + + | Component | Value | Ref Range | Performed | Pathologist | | | | | At | Signature | + + + + + + | aPTT | 72 (H)Comment: Deep | 26 - 36 sec | [facility] | | | | venous thrombosis or | | [facility] | | | | pulmonary embolism | | HEART | | | | therapeutic heparin | | MEDICAL | | | | levels of 0.3 to 0.7 | | CENTER | | | | Units/mL anti FactorXa | | LABORATORY | | | | levels usually | | [facility] | | | | correspond to an aPTT of | | | | | | 65 to 99 seconds. Acute | | | | | | cardiac syndrome | | | | | | therapeutic range based | | | | | | on heparin levels of 0.2 | | | | | | to 0.5 usually | | | | | | correspond to an aPTT of | | | | | | 57 to 76 seconds. | | | | | | Pediatric guidelines | | | | | | suggested heparin levels | | | | | | of 0.35 to 0.7 usually | | | | | | correspond to an aPTT of | | | | | | 69 to 99 | | | | | | seconds.Performed by [facility] | | | | | | [address], | | | | | | [place] [address] | | | | + + + + + + + + | Specimen | + + | Blood specimen | | (specimen) | + + + + + + + | Performing | Address | City/State/Zipcode | Phone Number | | Organization | | | | + + + + + | [facility] | [address] | [place] [address] | | | [facility] | | | | | LAB[facility] [place] | | | | + + + + + PTT (03/29/2018 2:48 AM PDT) + + + + + + | Component | Value | Ref Range | Performed | Pathologist | | | | | At | Signature | + + + + + + | aPTT | 75 (H)Comment: Deep | 26 - 36 sec | [facility] | | | | venous thrombosis or | | [facility] | | | | pulmonary embolism | | HEART | | | | therapeutic heparin | | MEDICAL | | | | levels of 0.3 to 0.7 | | CENTER | | | | Units/mL anti FactorXa | | LABORATORY | | | | levels usually | | [facility] | | | | correspond to an aPTT of | | | | | | 65 to 99 seconds. Acute | | | | | | cardiac syndrome | | | | | | therapeutic range based | | | | | | on heparin levels of 0.2 | | | | | | to 0.5 usually | | | | | | correspond to an aPTT of | | | | | | 57 to 76 seconds. | | | | | | Pediatric guidelines | | | | | | suggested heparin levels | | | | | | of 0.35 to 0.7 usually | | | | | | correspond to an aPTT of | | | | | | 69 to 99 | | | | | | seconds.Performed by [facility] | | | | | | [address], | | | | | | [place] [address] | | | | + + + + + + + + | Specimen | + + | Blood specimen | | (specimen) | + + + + + + + | Performing | Address | City/State/Zipcode | Phone Number | | Organization | | | | + + + + + | [facility] | [address] | [place] [address] | | | [facility] | | | | | [place]IN [facility]ERT | | | | + + + + + CBC no Differential (03/29/2018 2:47 AM PDT) + + + +-------- -----+ + | Component | Value | Ref Range | Perform ed | Pathologist | | | | | At | Signature | + + + +-------- -----+ + | WBC | 3.7 (L) | 3.8 - 11.0 K/uL | [facility] | | | | | | [facility] | | | | | | [facility] | | | | | | MEDICAL | | | | | | CENTER | | | | | | [facility] [place] | | | | | | [facility] | | + + + +-------- -----+ + | RBC | 3.65 (L) | 3.70 - 5.10 | [facility] | | | | | M/uL | [facility] | | | | | [facility] | | | | | | [facility] | | | | | | [facility] | | | | | | [facility] | | + + + +-------- -----+ + | Hemoglobin | 11.5 | 11.3 - 15.5 | [facility] | | | | | g/dL | [facility] | [facility] | | | | | | [facility] | | | | | | [facility] | | | | | | [facility] | | | | | | [facility] | | + + + +-------- -----+ + | Hct | 33.4 (L) | 34.0 - 46.0 % | [facility] | | | | | | [facility] | [facility] | | | | | | [facility] | | | | | | [facility] | | | | | | LAB[facility] | | | | | | [facility] | | + + + +-------- -----+ + | MCV | 91.3 | 80.0 - 100.0 fL | [facility] | | | | | [facility] | | | | | | [facility] | | | | | | [facility] | | | | | | LAB[facility] | | | | | | [facility] | | + + + +-------- -----+ + | MCH | 31.4 | 27.0 - 34.0 pg | [facility] | | | | | [facility] | [facility] | | | | | | [facility] | | | | | | [facility] | | | | | | LAB[facility]AT [facility] | | | | | | [facility] | | + + + +-------- -----+ + | MCHC | 34.4 | 32.0 - 35.5 | [facility] | | | | | g/dL | [facility] | [facility] | | | | | | [facility] | | | | | | [facility] | | | | | | LAB[facility] | | | | | | [facility] | | + + + +-------- -----+ + | RDW-CV | 14.0 | 11.0 - 15.5 % | [facility] | | | | | | [facility] | | | | | [facility] | | | | | | [facility] | | | | | | [facility] | | | | | | LAB[facility]AT [facility] | | | | | | [facility] | | + + + +-------- -----+ + | Platelet | 142 (L) | 150 - 400 K/uL | [facility] | | | Count | | | [facility] | | | | | [facility] | | | | | | [facility] | | | | | | [facility]ENTER | | | | | | LAB[facility]AT [facility] | | | | | | [facility] | | + + + +-------- -----+ + | MPV | 9.2Comment: Performed | 7.5 - 11.2 fL | [facility] | | | | by [facility] [address], | | [facility]CRED | | | | [place] [address] | | HEART | | | |Performed by [facility] [address], [place] [address] | | MEDICAL | | | | | | CENTER | | | | | | LABORAT ORY | | | | | | [facility] | | + + + +-------- -----+ + + + | Specimen | + + | Blood specimen | | (specimen) | + + + + + + + | Performing | Address | City/State/Zipcode | Phone Number | | Organization | | | | + + + + + | [facility] | [address] | [place] [address] | | | [facility] | | | | | LABORAT[facility] [place] | | | | + + + + + Basic Metabolic Panel (03/29/2018 2:47 AM PDT) + + + + + + | Component | Value | Ref Range | Performed | Pathologist | | | | | At | Signature | + + + + + + | Na | 142 | 135 - 145 | [facility] | [...] + + + + | Cl | 108 | 99 - 109 mmol/L | [facility] [...] + + | Calcium | 9.0 | 8.5 - 10.2 | [facility] | [...] | BUN | 15 | 8 - 25 mg/dL | [facility] | | | | | | [facility] | | | | | | [facility] | | | | | | MEDICAL | | | | | | CENTER | | | | | | LABORATORY | | | | | | [facility] | | + + + + + + | Creatinine | 1.01 (H) | 0.50 - 1.00 | [facility] | | | | | mg/dL | [facility] | | | | | | HE[facility] | | | | | | MEDICAL | | | | | | CENTER | | | | | | LABORATORY | | | | | | [facility] | | + + + + + + | Glucose | 153 (H) | 65 - 99 mg/dL | [facility] | | | | | | [facility] | | | | | | [facility] | | | | | | [facility] | | | | | | CENTER | | | | | | LABORATORY | | | | | | [facility] | | + + + + + + | Estimated | 54 (L)Comment: eGFR<60 | >=90 | [facility] | | | GFR | consistent with impaired | mL/min/1.73m2 | [facility] | | | | kidney | | HEART | | | | function.Performed by | | MEDICAL | | | | [facility] [address], | | CENTER | | | | [place] [address] | | LABORATORY | | | | [...] + + | [facility] | [address] | [place] [address] | | | [facility] | | | | | LABORATORY [facility] | | | | + + + + + Troponin I (03/28/2018 7:58 PM PDT) + + + + + + | Component | Value | Ref Range | Performed | Pathologist | | | | | At | Signature | + + + + + + | Troponin I | 3.905 (AA)Comment: | 0.000 - 0.069 | [facility] | | | | Verified by read back, | ng/mL | [facility] | | | | Kristin [address]ush 9N >/= 0.300 | | HEART | | | | ng/ml. Consistant with | | MEDICAL | | | | traditional acute | | CENTER | | | | myocardial infarction. | | LABORATORY | | | | Serial Troponin levels | | [facility] | | | | are | | | | | | recommended.Ultra-Sensit | | | | | | [place] TroponinPerformed by | | | | | | [facility] [address], | | | | | | [place] [address] | | | | + + + + + + + + | Specimen | + + | Blood specimen | | (specimen) | + + + + + + + | Performing | Address | City/State/Zipcode | Phone Number | | Organization | | | | + + + + + | [facility] | [address] | [place] [address] | | | [facility] | | | | | LAB[facility]AT[facility] [place] | | | | + + + + + PTT (03/28/2018 7:58 PM PDT) + + + + + + | Component | Value | Ref Range | Performed | Pathologist | | | | | At | Signature | + + + + + + | aPTT | 92 (H)Comment: Deep | 26 - 36 sec | [facility] | | | | venous thrombosis or | | [facility] | | | | pulmonary embolism | | HEART | | | | therapeutic heparin | | MEDICAL | | | | levels of 0.3 to 0.7 | | CENTER | | | | Units/mL anti FactorXa | | LABORATORY | | | | levels usually | | [facility] | | | | correspond to an aPTT of | | | | | | 65 to 99 seconds. Acute | | | | | | cardiac syndrome | | | | | | therapeutic range based | | | | | | on heparin levels of 0.2 | | | | | | to 0.5 usually | | | | | | correspond to an aPTT of | | | | | | 57 to 76 seconds. | | | | | | Pediatric guidelines | | | | | | suggested heparin levels | | | | | | of 0.35 to 0.7 usually | | | | | | correspond to an aPTT of | | | | | | 69 to 99 | | | | | | seconds.Performed by [facility] | | | | | | [address], | | | | | | [place] [address] | | | | + + + + + + + + | Specimen | + + | Blood specimen | | (specimen) | + + + + + + + | Performing | Address | City/State/Zipcode | Phone Number | | Organization | | | | + + + + + | [facility] | [address] | [place] [address] | | | [facility] | | | | | [facility] | | | | + + + + + LABS - EXTERNAL SCAN (03/28/2018 12:00 AM PDT) + + + | Narrative | Performed At | + + + | Ordered by an | | | unspecified provider. | | + + + ECG - EXTERNAL SCAN (03/28/2018 12:00 AM PDT) + + + | Narrative | Performed At | + + + | Ordered by an | | | unspecified provider. | | + + + documented in this encounter Visit Diagnoses + + | Diagnosis | + + | Coronary artery disease - Primary Coronary atherosclerosis of unspecified type of | | vessel, [place] or graft | + + | NSTEMI (non-ST elevated myocardial infarction) (HCC) Acute myocardial infarction, | | subendocardial infarction, episode of care unspecified | + + | Coronary artery disease involving [place] coronary artery of [place] heart with angina | | pectoris (HCC) | + + | Paroxysmal atrial fibrillation (HCC) Atrial fibrillation | + + | Chest pain, unspecified type | + + | Second degree AV block Other second degree atrioventricular block | + + | Benign essential hypertension Essential hypertension, benign | + + | Bilateral carotid artery disease (HCC) Unspecified disorders of arteries and | | arterioles | + + | Non-STEMI (non-ST elevated myocardial infarction) (HCC) Acute myocardial infarction, | | subendocardial infarction, episode of care unspecified | + + documented in this encounter Administered Medications + +--------+ +-------+------+------+ | Medication Order | MAR | Action | Dose | Rate | Site | | | Action | Date | | | | + +--------+ +-------+------+------+ | aspirin EC tablet 81 mg 81 mg, | Given | 03/30/20 | 81 mg | | | | Oral, DAILY, First dose on Mon | | 18 9:42 | | | | | 03/29/18 at 0900 | | AM PDT | | | | + +--------+ +-------+------+------+ +-------+ +-------+---+---+ | Given | 03/29/20 | 81 mg | | | | | 18 9:37 | | | | | | AM PDT | | | | +-------+ +-------+---+---+ +---+---+ | | | +---+---+ + +-------+ +-------+---+---+ | atorvaSTATin (LIPITOR) tablet | Given | 03/29/20 | 40 mg | | | | 40 mg 40 mg, Oral, NIGHTLY, | | 18 9:53 | | | | | First dose on Mon03/28/18 at 2100 | | PM PDT | | | | + +-------+ +-------+---+---+ +-------+ +-------+---+---+ | Given | 03/28/20 | 40 mg | | | | | 18 8:00 | | | | | | PM PDT | | | | +-------+ +-------+---+---+ +---+---+ | | | +---+---+ + +-------+ +-------+---+---+ | clopidogrel (PLAVIX) tablet 75 | Given | 03/30/20 | 75 mg | | | | mg 75 mg, Oral, DAILY, First | | 18 9:42 | | | | | dose on [facility] 03/29/18 at 0900 | | AM PDT | | | | + +-------+ +-------+---+---+ +-------+ +-------+---+---+ | Given | 03/29/20 | 75 mg | | | | | 18 9:37 | | | | | | AM PDT | | | | +-------+ +-------+---+---+ +---+---+ | | | +---+---+ + +-------+ +-------+---+---+ | diphenhydrAMINE (BENADRYL) | Given | 03/28/20 | 25 mg | | | | tablet 25 mg 25 mg, Oral, ONCE, | | 18 7:59 | | | | | 03/28/18 at 2000, For 1 dose | | PM PDT | | | | + +-------+ +-------+---+---+ +---+---+ | | | +---+---+ + +-------+ +-------+---+---+ | diphenhydrAMINE (BENADRYL) | Given | 03/29/20 | 25 mg | | | | tablet 25 mg 25 mg, Oral, ONCE, | | 18 6:34 | | | | | [place] 03/29/18 at 0700, For 1 dose | | AM PDT | | | | + +-------+ +-------+---+---+ +---+---+ | | | +---+---+ + +---------+ + + +---+ | heparin in half-normal saline | New Bag | 03/28/20 | 800 | 16 mL/hr | | | 50 units/mL infusion 0-3,000 | | 18 9:32 | Units/hr | | | | Units/hr (0-60 mL/hr), at 0-60 | | PM PDT | | | | | mL/hr, Intravenous, TITRATED, | | | | | | | Starting 03/28/18 at 1900, | | | | | | | CARDIAC DOSE HEPARIN PROTOCOL | | | | | | | INITIAL heparin infusion dose 850 | | | | | | | units/hr (12 units/kg/hr, | | | | | [...] | | | | | seconds: Bolus 2,000 units | | | | | | | (30 units/kg. Max 2,000 units) & | | | | | | | increase rate by 300 units/hr | | | | | | | (4 units/kg/hr) Repeat APTT 6 | | | | | | | hr after change APTT 45-56 | | | | | | | seconds: Increase rate by 150 | | | | | | | units/hr (2 units/kg/hr) Repeat | | | | | | | APTT 6 hr after change APTT | | | | | | | 57-76 seconds (GOAL RANGE): No | | | | | | | bolus or rate change. Repeat | | | | | | | APTT 6 hours then QAM. APTT | | | | | | | 77-86 seconds: Decrease rate by | | | | | | | 50 units/hr (1 unit/kg/hr) | | | | | | | Repeat APTT 6 hr after change | | | | | | | APTT 87-98 seconds: Stop | | | | | | | infusion 30 minutes & decrease | | | | | | | rate by 150 units/hr (2 | | | | | | | units/kg/hr) Repeat APTT 6 hr | | | | | | | from the time infusion | | | | | | | stopped. APTT > 98 seconds: | | | | | | | Stop infusion 60 minutes & | | | | | | | decrease rate by 200 units/hr (3 | | | | | | [...] | | | + +---------+ + + +---+ +---------+ + + +---+ | New Bag | 03/28/20 | 950 | 19 mL/hr | | | | 18 6:54 | Units/hr | | | | | PM PDT | | | | +---------+ + + +---+ +---+---+ | | | +---+---+ + +-------+ +-------+---+---+ | isosorbide mononitrate (IMDUR) | Given | 03/30/20 | 30 mg | | | | ER tablet 30 mg 30 mg, Oral, | | 18 9:43 | | | | | DAILY, First dose on [place] 03/29/18 | | AM PDT | | | | | at 1700, Tablet may be cut where | | | | | | | scored but do not crush., | | | | | | + +-------+ +-------+---+---+ +-------+ +-------+---+---+ | Given | 03/29/20 | 30 mg | | | | | 18 5:28 | | | | | | PM PDT | | | | +-------+ +-------+---+---+ +---+---+ | | | +---+---+ + +-------+ +---------+---+---+ | levothyroxine (SYNTHROID) | Given | 03/30/20 | 100 mcg | | | | tablet 100 mcg 100 mcg, Oral, | | 18 6:46 | | | | | DAILY BEFORE BREAKFAST, First | | AM PDT | | | | | dose on [place] 03/29/18 at 0730, Give | | | | | | | before breakfast., | | | | | | + +-------+ +---------+---+---+ +-------+ +---------+---+---+ | Given | 03/29/20 | 100 mcg | | | | | 18 6:34 | | | | | | AM PDT | | | | +-------+ +---------+---+---+ +---+---+ | | | +---+---+ + +-------+ +-------+---+---+ | metoprolol succinate | Given | 03/29/20 | 25 mg | | | | (TOPROL-XL) ER tablet 25 mg 25 | | 18 5:28 | | | | | mg, Oral, ONCE, [place] 03/29/18 at | | PM PDT | | | | | 1700, For 1 dose, Tablet may be | | | | | | | cut where scored but do not | | | | | | | crush., | | | | | | + +-------+ +-------+---+---+ +---+---+ | | | +---+---+ + +-------+ +-------+---+---+ | metoprolol succinate | Given | 03/29/20 | 50 mg | | | | (TOPROL-XL) ER tablet 50 mg 50 | | 18 9:37 | | | | | mg, Oral, DAILY, First dose on | | AM PDT | | | | | [place] 03/29/18 at 0900, Tablet may | | | | | | | be cut where scored but do not | | | | | | | crush., | | | | | | + +-------+ +-------+---+---+ +---+---+ | | | +---+---+ + +-------+ +-------+---+---+ | metoprolol succinate | Given | 03/30/20 | 75 mg | | | | (TOPROL-XL) ER tablet 75 mg 75 | | 18 9:42 | | | | | mg, Oral, DAILY, First dose | | AM PDT | | | | | (after last modification) on Fri | | | | | | | 03/30/18 at 0900, Tablet may be | | | | | | | cut where scored but do not | | | | | | | crush., | | | | | | + +-------+ +-------+---+---+ + +---+ | | | + +---+ | morphine injection 2-6 mg 2-6 | | | mg, Intravenous, EVERY 2 HOURS | | | PRN, Pain, Starting 03/28/18 | | | at 1842, Slow IV push, not faster | | | than 2 mg/minute. If ineffective | | | or not tolerated, use | | | hydromorphone IV if ordered., | | + +---+ | | | + +---+ | ondansetron (ZOFRAN) injection | | | 4 mg 4 mg, Intravenous, EVERY 6 | | | HOURS PRN, Nausea, Vomiting, | | | Starting 03/28/18 at 1843, | | | First line agent, | | + +---+ | | | + +---+ | oxyCODONE-acetaminophen | | | (PERCOCET) 5-325 mg per tablet | | | 1-2 tablet 1-2 tablet, Oral, | | | EVERY 4 HOURS PRN, Pain, Starting | | | 03/28/18 at 1842, If | | | ineffective use Oxycodone if | | | ordered. If not tolerated use | | | [place] 10/325 if ordered., | | + +---+ | | | + +---+ | polyethylene glycol (MIRALAX) | | | powder 17 g 17 g, Oral, DAILY | | | PRN, Constipation, Starting Wed | | | 03/28/18 at 1842, If docusate and | | | senna ineffective or not | | | ordered., | | + +---+ | | | + +---+ + +-------+ +-------+---+---+ | predniSONE (DELTASONE) tablet | Given | 03/28/20 | 50 mg | | | | 50 mg 50 mg, Oral, ONCE, Wed | | 18 7:59 | | | | | 03/28/18 at 2000, For 1 dose | | PM PDT | | | | + +-------+ +-------+---+---+ +---+---+ | | | +---+---+ + +-------+ +-------+---+---+ | predniSONE (DELTASONE) tablet | Given | 03/29/20 | 50 mg | | | | 50 mg 50 mg, Oral, ONCE, [place] | | 18 6:34 | | | | | 03/29/18 at 0700, For 1 dose | | AM PDT | | | | + +-------+ +-------+---+---+ +---+---+ | | | +---+---+ + +-------+ +--------+---+---+ | senna (SENOKOT) tablet 8.6 mg | Given | 03/28/20 | 8.6 mg | | | | 8.6 mg, Oral, 2 TIMES DAILY PRN, | | 18 7:59 | | | | | Constipation, Starting Wed | | PM PDT | | | | | 03/28/18 at 1842, If docusate | | | | | | | ineffective or not ordered., | | | | | | + +-------+ +--------+---+---+ +---+---+ | | | +---+---+ documented in this encounter
--- OUTSIDE RECORDS SUMMARY | ~2019-07-30 | XMS | Encounter Summary ---
Demographics + + + | Address | [address] | | | [place] [address] | + + + | Home Phone | | + + + | Preferred Language | Unknown | + + + | Marital Status | | + + + | Temple Affiliation | 1001 | + + + | Race | Unknown | + + + | Ethnic Group | Unknown | + + + Author + + + | Author | [facility] | | | and [place] | + + + | Organization | [facility] | | [...] Team Providers + +------+ + | Care Music Autographer Name | Role | Phone | + +------+ + | Doug García MD | PCP | | + +------+ + Reason for Visit +---------+ + | Reason | Comments | +---------+ + | Post Op | CABGx4 | +---------+ + Evaluate & Treat (Routine) +--------+--------+ + [...] [address] [place], | | | | | [place] | [address] | [place] [address] | | | | | coronary | [address] | Phone: | | | | | artery | [place] | [phone] | | | | | Procedures | [id number] | Fax: | | | | | MD CABG, | Phone: | [phone] | | | | | ARTERIAL, | [phone] | | | | | | THREE | Fax: | | | | | | | [phone] | | +--------+--------+ + + + + Encounter Details +--------+---------+ + + + | Date | Type | Department | Care Team | Description | +--------+---------+ + + + | 02/10/ | Office | [facility] | Reena Ralph, | S/P CABG (coronary | | 2013 | Visit | [facility] | PA-C [address] | artery bypass graft) | | | | [facility] | [address] [place], [place] | (Primary Dx) | | | | [address] | [address] | | | | | [place] | | | | | | [address] | | | | | | [phone] | | | +--------+---------+ + + + [...] +---------+ + + | Blood Pressure | 182/98 | 02/10/2014 2:12 PM | | | | | PDT | | + +---------+ + + | Pulse | 66 | 02/10/2014 2:12 PM | | | | | PDT | | + +---------+ + + | Temperature | - | - | | + +---------+ + + | Respiratory Rate | - | - | | + +---------+ + + | Oxygen Saturation | 98% | 02/10/2014 2:12 PM | | | | | PDT [...] documented as of this encounter Progress Notes Reena Ralph PA-C - 02/10/2014 2:28 PM PDT aReena chisholm P A-C - 02/10/2014 2:18 PM PDT [facility] CARDIOTHORACIC SURGERY OUTPATIENT POST-OP VISIT Pt. Name/Age/: Chaya Chan 73 y.o. 1940 Med. Record Number: [id number] Date of Service: 02/10/2014 Procedure: Coronary artery bypass graft times 4 [...] [place] Date of Procedure: December 24, 2013 Postop complications: Atrial fibrillation, requiring readmission. Back in sinus rhythm today. Subjective: The chart and medications were reviewed in detail. The patient was interviewe d and examined. Objective: BP: 182/98 mmHg Pulse: 66 SpO2: 98 % on On room air Medications: Outpatient Encounter Prescriptions as of 02/10/2014 Medication [...] 220 mg by mouth 2 times daily. Exam: General: Alert and oriented times three, no acute distress Heart: regular rhythm, no rub, no murmur Respiratory: Normal inspiratory effort, clear and equal breath sounds Abdomen: Soft and nontender Extremities: warm without pain and minimaledema Incisions: clean, dry, intact Bilateral leg EVH sites Sternum: stable Assessment: 6 weeks post CABG x 4 Post operative atrial fibrillation, resolved. Cardiology adjusted meds today and discontinu ed Coumadin Recovering slowly Plan: May resume driving when no further dizzy spells Restrictions and limitations were discussed. No heavy lifting for 2 more weeks Follow up as directed with cardiology and primary care. Electronically signed by: Reena Ralph, 02/10/2014 14:18 Reena Ralph PA-C Cardiothoracic Surgery [facility] [address] [place] [id number] documented in this encounter Plan of Treatment Not on filedocumented as of this encounter Visit Diagnoses + + | Diagnosis | + + | S/P CABG (coronary artery bypass graft) - Primary Postsurgical aortocoronary bypass | | status | + + documented in this encounter"
--- OUTSIDE RECORDS SUMMARY | ~2019-07-30 | XMS | Encounter Summary ---
Demographics + + + | Address | [address] | | | [place] [address] | + + + | Home Phone | | + + + | Preferred Language | Unknown | + + + | Marital Status | | + + + | Hoahaoism Affiliation | 1001 | + + + | Race | Unknown | + + + | Ethnic Group | Unknown | + + + Author + + + | Author | [facility] | | | and [place] | + + + | Organization | [facility] | | | and [...] Team Providers + +------+ + | Care Keycase Assembler Name | Role | Phone | + [...] | | | | | | | [place] | | | | | | | coronary | | | | | | | artery | | | | | | | Coronary | | | | | | | atherosclero | | | | | | | sis of | | | | | | | [place] | | | | | | | coronary | | | | | | | artery | | | | | | | Procedures | | | | | | | [place] CABG, | | | | | | [...] + + | 12/23/ | Hospital | [facility] | [place], | S/P CABG x 1 | | 2013 | Encounter | [facility] | [address] | | | | | [facility] | [place] [address] | | | | | [address] | [phone] | | | | | [place] | | | | | | [address] | Lo Brandon Herrera PA | | | | | [phone] | [address] | | | | | | [place] [address] | | | | | | [phone] | | | | | | | [...] | 0 | 04/06/20 | | | [facility] | | | | 11 | 4 [...] + + | S/P CABG x 1 Postsurgical aortocoronary bypass status | + + documented in this encounter"
--- OUTSIDE RECORDS SUMMARY | ~2019-07-30 | XMS | Encounter Summary ---
Demographics + + + | Address | [address] | | | [place] [address] | + + + | Home Phone | | + + + | Preferred Language | Unknown | + + + | Marital Status | | + + + | Baptism Affiliation | 1001 | + + + | Race | Unknown | + + + | Ethnic Group | Unknown | + + + Author + + + | Author | [facility] | | | and [place] | + + + | Organization | [facility] | | | [...] Team Providers + +------+ + | Care Remote Medical Coder Name | Role | Phone | + +------+ + PCP | Unavailable | + +------+ + Encounter Details +--------+ + + + + | Date | Type | Department | Care Team | Description | +--------+ + + + + | 05/06/ | Abstract | [place] [facility] | [facility] | | | 2012 | | Conversion Location | [facility] | | | | | [phone] | | | +--------+ + + + [...] + + + | Blood Pressure | 131/71 | 03/07/2012 12:00 AM | | | | | PDT | | + + + + + | Pulse | - | - | | + [...] + + | Weight | 77.1 kg (170 lb) | 03/07/2012 12:00 AM | | | | | PDT | | + + + + + | Height | 167.6 cm (5' 6") | 03/07/2012 12:00 AM | | | | | PDT | | + + + + + | Body Mass Index | 27.44 | 03/07/2012 12:00 AM | | | | | PDT | | + + + + + documented in this encounter Plan of Treatment Not on filedocumented as of this encounter Visit Diagnoses Not on filedocumented in this encounter
--- OUTSIDE RECORDS SUMMARY | ~2019-07-30 | XMS | Encounter Summary ---
Demographics + + + | Address | [address] | | | [place] [address] | + + + | Home Phone [...] Team Providers + +------+ + | Care Bridge Worker Apprentice Name | Role | Phone | + +------+ + | Doug García MD | PCP | | + +------+ + Encounter Details +--------+ + + + + | Date | Type | Department | Care Team | Description | +--------+ + + + + | 11/10/ | Orders Only | [facility] | Camila Zhang, | Coronary artery | | 2017 | | [facility] | Ghost Writer | disease due to | | | | LABORATORY [address] | | calcified coronary | | | | [address] | | lesion; Acquired | | | | [place], [place] | | hypothyroidism; | | | | [address] | | Benign essential | | | | [phone] | | hypertension; | | | | | | Chronic diastolic | | | | | | CHF (congestive | | | | | | heart failure), NYHA | | | | | | class 2 (HCC) | +--------+ + + + + Social [...] + | LIPID PANEL | Routin | 11/10/2016 | Coronary artery | Results for this | | | e | 11:29 AM | disease due to | procedure are in the | | | | PDT | calcified coronary | results section. | | | | | lesion | | + +--------+ + + + | TSH, REFLEX FREE T4 | Routin | 11/10/2016 | Acquired | Results for this | | | e | 11:29 AM | hypothyroidism | procedure are in the | | | | PDT | | results section. | + +--------+ + + + | CBC WITH | Routin | 11/10/2016 | Coronary artery | Results for this | | DIFFERENTIAL | e | 11:29 AM | disease due to | procedure are in the | | | | PDT | calcified coronary | results section. | | | | | lesion | | + +--------+ + + + | T4, FREE | Routin | 11/10/2016 | | Results for this | | | e | 11:29 AM | | procedure are in the | | | | PDT | | results section. | + +--------+ + + + | MAGNESIUM | Routin | 11/10/2016 | Coronary artery | Results for this | | | e | 11:29 AM | disease due to | procedure are in the | | | | PDT | calcified coronary | results section. | | | | | lesion Benign | | | | | | essential | | | | | | hypertension | | | | | | Chronic diastolic | | | | | | CHF (congestive | | | | | | heart failure), NYHA | | | | | | class 2 (HCC) | | + +--------+ + + + | COMPREHENSIVE | Routin | 11/10/2016 | Coronary artery | Results for this | | METABOLIC PANEL | e | 11:29 AM | disease due to | procedure are in the | | | | PDT | calcified coronary | results section. | | | | | lesion | | + +--------+ + + + documented in this encounter Results T4, Free (11/10/2016 11:29 AM PDT) + +-------+ + + + | Component | Value | Ref Range | Performed | Pathologist | | | | | At | Signature | + +-------+ + + + | FT4 | 0.78 | 0.76 - 1.46 | [facility] | | | | | ng/dL | [facility] | | | | | [...] + + + + + | [facility] | [address] | [place] [address] | | | [facility] | | | | | LABORATORY | | | | + + + + + Magnesium (11/10/2016 11:29 AM PDT) [...] + + + + + | [facility] | [address] [facility] [address] | [place] [address] | | | [facility] | | | | | LABORATORY [...] | + + + + + | [facility] | [address] | [place] [address] | | | [facility] | | | | | [...] 4.547 (H) | 0.300 - 4.000 | ALEXE | | | | | uIU/mL | [facility] | | | | | | [facility] | | | | | | [facility] [...] | [facility] | [address] | [place] [address] | | | [facility] | | | | | [...] | [facility] | [address] | [place] [address] | | | [facility] | | | | | [...] 5.2 | 3.8 - 11.0 K/uL | [facility] | | | | | | [facility] [...] + | [facility] | [address] | [place] [address] | | | [facility] | | | | | LABORATORY | | | | + + + + + documented in this encounter Visit Diagnoses + + | Diagnosis | + + | Coronary artery disease due to calcified coronary lesion | + + | Acquired hypothyroidism Unspecified hypothyroidism | + + | Benign essential hypertension Essential hypertension, benign | + + | Chronic diastolic CHF (congestive heart failure), NYHA class 2 (HCC) | + + documented in this encounter"
--- OUTSIDE RECORDS SUMMARY | ~2019-07-30 | XMS | Encounter Summary ---
Demographics + + + | Address | [address] | | | [place] [address] | + + + | Home Phone [...] Team Providers + +------+ + | Care Trench Trimmer Fine Name | Role | Phone | + [...] | | | | | | | [address] | | | | | | | Phone: | | | | | | | [phone] | | | | | | | Fax: | | | | | | | [phone] | +--------+--------+ + + + + Encounter Details +--------+---------+ + + + | Date | Type | Department | Care Team | Description | +--------+---------+ + + + | 12/17/ | Surgery | [facility] | [place], | CV DIAGNOSTIC | | 2013 | | [facility] | Erum Ragland MD [address] | CARDIAC CATH | | | | INTRA OP [address] | | | | [address] [place] | [address] [place] | | | | | [address] | [address] | | | | | [phone] | | | +--------+---------+ + + + [...] of this year. Heart cath yesterday. R groin site WNL .No stents placed, and open heart is recommended for multivessel disease. Pt to DC to home with . Will return on December 23 for appt's and check in on December 24 for [place]. Pt is aware of all appt's and has confirmation number for good night sleep program. Prescr iptions were sent to [facility] in [place]. All medications were reviewed with pt and . All questions answered. They both verbally confirmed understanding. Pt is understands s he needs to limit activity. Heart disease and Heart surgery information books were given to pt. Dc to home. rum Quevedo MD - 12/18/2013 10:20 AM PDTATTENDING ADDENDUM: [...] by: Erum Gerardo MD 12/18/2013 13:00 Natalia Moulton, [facility] - 12/18/2013 10:20 AM PDTFormatting of this note might be different from the origi nal. PATIENT NAME: Markie Pinto : 1940: AGE: 73 y.o. ADMISSION DATE: 12/16/2013 DISCHARGE DATE: 12/18/2013 PRIMARY CARE: MD Tonia Thao ARNP DISCHARGE SUMMARY Principal Hospital Problem: NSTEMI (non-ST elevated myocardial infarction) ([facility]) Admission Diagnoses: HOSPITAL PROBLEM LIST FULL PROBLEM LIST Principal Problem: *NSTEMI (non-ST elevated myocardial infarction) ([facility]) Active Problems: CORONARY ARTERY DISEASE CARDIOMYOPATHY DILATED ISCHEMIC Allergic reaction to contrast dye Patient Active Problem List Diagnosis HYPOTHYROIDISM HYPERLIPIDEMIA SLEEP APNEA OBSTRUCTIVE RESTLESS LEGS SYNDROME ESSENTIAL HYPERTENSION BENIGN CORONARY ARTERY DISEASE CARDIOMYOPATHY DILATED ISCHEMIC CHRONIC SINUSITIS CEREBRAL ISCHEMIA Nausea Allergic reaction to contrast dye NSTEMI (non-ST elevated myocardial infarction) ([facility]) Discharge Diagnoses: NSTEMI (non-ST elevated myocardial infarction) ([facility]) Assessment & Plan A:NSTEMI. Heart catheterization with [...] to right collateral. S/P NSTEMI 10/26/13 in [place] Rxd medically; Echo EF 50% with inferior [...] with chest pain. She was transferred from [place] after presenting there having severe chest pain [...] but no workup at a hospital in [place]. She has had prior stents in 2004 [...] Take 81 mg by mouth Daily. B Auvrtly-Vuoult-KR ( VITAMIN B 50/B-COMPLEX) TABS once a [...] 1-2 weeks. Follow-up with Dr. Christianson with [facility] at 1:00 P.M. On 02/10/2014 suite [...] | 0 | 04/06/20 | | | Inrczyn-Zoxhsu-TI | | | | 11 | 4 [...] + documented as of this encounter Progress Josselyn MENESES - 12/22/2013 12:00 AM PDT 14 4:00 PM Erum Randall MD - 12/17/2013 10:01 AM PDTFormatting of this note mi ght be different from the original. Cardiology progress NOTE [facility] [place] [facility] 12/17/2013 Rounding Physician: ABBY Farnsworth Patient Name: Markie Pinto : 1940 Medical Record: [id number] Hospital Day: Hospital Day: 2 Code Status: [...] ARTERY DISEASE Overview S/P NSTEMI 10/26/13 in [place] Rxd medically; Echo EF 50% with inferior [...] Net 169 ml Date 12/16/131900 - 12/17/13 0712/17/13 07 - 12/18/13 0700 Shift 2437-8352 24 Hour Total 4091-1205 6251-7173 24 Hour Total I N T A [...] and CN's intact DIAGNOSTICS: Labs: Lab 12/16/13 02412/15/13 214 WBC 6.6 6.1 HGB 11.6 13.5 HCT 35.1 39.0 Lab 12/16/13 1013 12/16/13 02412/15/13 214 NA -- 136 139 K -- 3.8 3.4* CL -- 102 98 CO2 -- 27 29 BUN -- 18 15 CREA -- 1.07* 1.30* GLUCOSE -- -- -- CALCIUM -- 9.4 9.3 ALT 20 -- 35 AST 42 -- 24 ALKPHOS 64 -- 98 BILITOT 0.5 -- 0.4 Lab 12/16/13 1013 12/16/13 02412/15/132140 TROPONINI 11.91* 4.57* 0.39* TROPONINT -- -- [...] signed by: ABBY Farnsworth, DATE/TIME: 12/17/2013 10:08 [facility] 14 12:09 PM Prakash, Erum Ragland MD - 12/16/2013 9:04 AM PDTFormatting of this note mi ght be different from the original. [facility] PATIENT NAME: Markie Pinto : 1940: [...] high risk. She just had anot her ND several weeks ago in [place] so she is pretty high risk clinically. Her understan ding of her disease process is poor; education being done. She thinks her ND in [place] was due to "getting too cold" and [...] hour(s)) CBC WITH DIFFERENTIAL Collection Time 12/15/13 9931 Component Value Range WBC 6.1 4.0 - [...] 32 sec CBC WITH DIFFERENTIAL Collection Time 12/16/13 0249 Component Value Range WBC 6.6 3.8 - [...] - 0.10 K/uL TROPONIN I Collection Time 12/16/13 0249 Component Value Range TROPONIN I 4.57 (*) 0.00 - 0.29 ng/mL CK-MB Collection Time 12/16/13 0249 Component Value Range CK TOTAL 263 (*) 30 - 240 U/L CK-MB 26.4 (*) <7.5 ng/mL Relative Index 10.0 (*) <3.1 % BASIC METABOLIC PANEL Collection Time 12/16/13 0249 Component Value Range NA 136 135 [...] (*) >60 ml/min/1.73m2 PTT Collection Time 12/16/13 0622 Component Value Range aPTT, Patient 106 (*) [...] Min: 95 % Max: 98 % 12/14 190 - 12/16 0700 In: 75.1 [I.V.:75.1] Out: 300 [Urine:300] [...] Signed by: Erum Gerardo MD 12/16/2013, 9:04 Lewis Salgado RN - 12/16/2013 2:00 AM PDTPt arrived [...] Report Patient | | | Name: MARKIE PINTO: [id number] | | | Study Date: 12/24/2013DOB: 1940 | | | Gender: FemaleAge: 73 yrs | | | Location: [facility] [place] [address] | | | HR: 52Height: | | | 65 in Weight: 164 lbBSA: | | | 1.8 u7Wzgcyu For Study: cabg X 4 AUCSCA 2bHistory: [...] |Referring Physician: Sj Viera MD | | |Case Consultant: Yasmeen Guerrero | | | | | + + --+ + + | Procedure Note | + + | Mauricio, Rad Results In - 12/25/2013 12:38 PM PDT | | Adult Intra-Op | | ERIN Report | | | | Patient Name: MARKIE PINTO | | Study Date: 12/24/2013 | | : 1940 Gender: Female | | Age: 73 yrs Location: [facility] [place] [address] | | HR: 52 | | Height: 65 in Weight: 164 lb | | BSA: 1.8 m2 | | Reason For Study: cabg X 4 AUC | | SCA 2b | | History: HTN, Obstructive sleep | | apnea, CAD, ND | | Rhythm: SB | | | [...] Referring Physician: Sj Viera MD | | Case Consultant: Yasmeen Guerrero | + + + + | Transcriptions | + + | [facility] - 12/25/2013 12:00 AM PDT | + + + +---------+ + + | Performing | Address | City/State/Zipcode | Phone Number | | Organization | | | | + +---------+ + + | [facility] | | | [phone] | + +---------+ + + | [facility] | | | [phone] | + +---------+ + + CBC no [...] + + | [facility] | [address] | [place] [address] | | | [facility] | | | | | LABORATORY [...] [facility] | [address] | [place] [address] | | | [facility] | | | | | LABORATORY | | | | + + + + + CV Adult Cardiac Cath Diag/PCI (12/17/2013 5:46 PM PDT) + + | Specimen | + + | | + + + + + | Narrative | Performed At | + + + | Erum Gerardo MD 12/17/2013 18:09 PRIMARY GENERAL PRODUCTION WORKER: | | | Erum Gerardo MD [facility] | | | CLOTH DRIER: | | | Erum Gerardo MD [facility] PRE-PROCEDURE DIAGNOSIS: | | | Acute coronary syndrome; new ischemic | | | cardiomyopathy POST-PROCEDURE DIAGNOSIS: Same | | | with severe multivessel CAD PROCEDURES PERFORMED: 1. | | | Insertion of 5 Kittitian catheter into right femoral artery 2. | | | Selective Coronary Angiography using 5 Kittitian Taz Left 3.5 and | | | [...] and engaged the right with a 6 Kittitian | | | Multipurpose catheter. This was [...] and anesthetized with 1% lidocaine. A 5 moroccan | | | sheath was placed into the right femoral artery without difficulty | | | on a single-wall stick. All exchanges of catheters were done over | | | a guidewire with fluoroscopic guidance. Selective angiography was | | | performed with catheters described above. The right coronary | | | could not be engaged with many different 5 Kittitian and then a number | | | of 6 moroccan catheters through long [address] Hughes | | | gave assist as above. The cathters tried included 5 Kittitian JR4, JR | | | 5, WNTR, AL1, AR1 and AR2 as well as 6 Kittitian R4, AR1, AL1. | | | LV [...] per protocol | | | (detailed in systems testing laboratory technician notes) and Isovue contrast. FINDINGS: [...] MD - 12/17/2013 5:58 PM PDT PRIMARY GENERAL PRODUCTION WORKER: | | Erum Gerardo MD [facility] GUIDEMAN: | | Erum Gerardo MD FACCPRE-PROCEDURE DIAGNOSIS: Acute | | coronary syndrome; new ischemic cardiomyopathyPOST-PROCEDURE DIAGNOSIS: | | Same with severe multivessel CADPROCEDURES PERFORMED: 1. Insertion of 5 Kittitian | | catheter into right femoral artery2. Selective Coronary Angiography using 5 Kittitian | | Taz Left 3.5 and protracted [...] and engaged the right with a 6 Kittitian Multipurpose | | catheter.This was a prolonged [...] | anesthetized with 1% lidocaine. A 5 moroccan sheath was placed into the right femoral | | artery without difficulty on a single-wall stick. All exchanges of catheters were done | | over a guidewire with fluoroscopic guidance. Selective angiography was performed with | | catheters described above. The right coronary could not be engaged with many different | | 5 Kittitian and then a number of 6 moroccan catheters through long 6 Kittitian sheath. | | Ellen gave assist as above. The cathters tried included 5 Kittitian JR4, JR 5, WNTR, AL1, | | AR1 and AR2 as well as 6 Kittitian R4, AR1, AL1. LV pressures were obtained with the JR1 | | catheter. Manual pressure was utilized to achieve successful hemostasis in the femoral | | artery. there were no immediate complications. There were no complications immediate | | to procedure. Blood loss was < 5 cc. Medications given included versed and fentanyl | | per protocol (detailed in systems testing laboratory technician notes) and Isovue contrast. FINDINGS:Hemodynamics: [...] + + | [facility] | [address] | [place] [address] | | | [facility] | | | | | LABORATORY | [...] + + | [facility] | [address] | [place] [address] | | | [facility] | | | | | LABORATORY | [...] | [address] | [place] [address] | | | [facility] | | | | | LABORATORY | [...] + + | [facility] | [address] | [place] [address] | | | [facility] | | | | | LABORATORY | [...] 12/16/2013 PRIMARY CARE: Doug García MD REFERRING: Rah, | | | Edison Kimbrough MD MIDLEVEL PROVIDER: Sandra Armenta PA-C | | | NUCLEAR MEDICINE PHARMACOLOGIC STRESS TEST REPORT | | | PATIENT NAME: Markie Pinto : 1940 | | | AGE: 73 y.o. ENCOUNTER DATE: 12/16/2013 DOCUMENT DATE: | | | 12/16/2013 PRIMARY CARE: Doug García MD REFERRING: Rah, | | | Edison Kimbrough MD [facility] PROVIDER: Electronically Signed by: Erum Ragland [...] Risk stratification post-myocardial infarction | | | (ND) Clinical History: 73 y.o. year old female with recent ND | | | in [place] but refuses HC, re admitted with positive [...] García MD | | REFERRING: Edison Monreal [facility] PROVIDER: Sandra Armenta PA-C | | NUCLEAR MEDICINE PHARMACOLOGIC STRESS TEST REPORT PATIENT NAME: Markie Howe | | Dustin : 1940 AGE: 73 y.o.ENCOUNTER DATE: 12/16/2013 DOCUMENT DATE: | | 12/16/2013PRIMARY CARE: Doug García MD REFERRING: Edison Monreal [facility] PROVIDER: | | Electronically Signed by:Erum Gerardo [...] imagingIndication: Risk | | stratification post-myocardial infarction (ND) Clinical History:73 y.o. year old female | | with recent ND in [place] but refuses HC, re admitted with positive [...] | | |Indication: Risk stratification post-myocardial infarction (ND) | | | |Clinical History: | |73 y.o. year old female with recent ND in [place] but refuses HC, re admitted with posit [...] + + | [facility] | [address] | [place] [address] | | | [facility] | | | | | LABORATORY | [...] + + | [facility] | [address] | [place] [address] | | | [facility] | | | | | LABORATORY | [...] | | | | [address], | | | | | | [place] [address] | | | | + + + + + + + + | Specimen | + + | Blood specimen | | (specimen) | + + + + + + + | Performing | Address | City/State/Zipcode | Phone Number | | Organization | | | | + + + + + | [facility] | [address] | [place] [address] | | | [facility] | | | | | LABORATORY | | | | + + + + + Lipid Panel (12/16/2013 10:13 AM PDT) + + + + + + | Component | Value | Ref Range | Performed | Pathologist | | | | | At | Signature | + + + + + + | Cholesterol | 115Comment: <200: | <200 mg/dL | [facility] | | | | Desirable | | [facility] | | | | | | HEART [...] | | HEART | | | | [email or web address] | | MEDICAL | | | | [...] + + | [facility] | [address] | [place] [address] | | | [facility] | | | | | LABORATORY | | | | + + + + + Troponin I (12/16/2013 10:13 AM PDT) + + + + + + | Component | Value | Ref Range | Performed | Pathologist | | | | | At | Signature | + + + + + + | Troponin I | 11.91 (HH) | 0.00 - 0.29 | [facility] | | | | Comment: | ng/mL | [facility] | | | | Verified by readback. | | HEART | | | | [address] | | MEDICAL | | | [...] + + | [facility] | [address] | [place] [address] | | | [facility] | | | | | LABORATORY | [...] | | MARKIE PINTO Study Date: 12/16/2013MRN: [id number] | | | Patient Location: [facility] CRD[facility] [id number]: 1940 | | | Age: 73 yrs Gender: | | | FemaleHeight: 65 in Weight: 168 lb | | | BSA: 1.8 v5Hdclhd For Study: Chest Pain AUC 1 | [...] 10:19 AMOrdering | | | Physician: EDISON MONREALEchocardiographer: Kris [id number]: | | | | | |Aortic Valve: [...] | |Ordering Physician: EDISON MONREAL | | |Case Consultant: Kris Mcdonough | | |[id number]: | | | | | + + -+ + + | Procedure Note | + + | Mauricio, Rad Results In - 12/16/2013 10:20 AM PDT | | Adult Echo | | Report | | | | Name: MARKIE PINTO Study Date: 12/16/2013 | | Patient Location: [facility] CRD 604 | | : 1940 Age: 73 [...] | Ordering Physician: EDISON MONREAL | | Case Consultant: Kris Mcdonough | | [id number]: | + + + + | Transcriptions | + + | [place] - 12/16/2013 12:00 AM PDT | + + + +---------+ + + | Performing | Address | City/State/Zipcode | Phone Number | | Organization | | | | + +---------+ + + | [facility] | | | [phone] | + +---------+ + + | [facility] | | | [phone] | + +---------+ + + PTT (12/16/2013 [...] [address] | [place] [address] | | | [facility] | [...] + + | Glucose | 119 (H)Comment: Martiniquais | 65 - 99 mg/dL | [facility] [...] + | [facility] | [address] | [place] [address] | | | [facility] | | | | | LABORATORY | [...] + + | [facility] | [address] | [place] [address] | | | [facility] | | | | | LABORATORY | [...] | HEART | | | | Leonides Leiva | | MEDICAL | | | | [...] + + | [facility] | [address] | [place] [address] | | | [facility] | | | | | LABORATORY [...] + + + + + | [facility] | [address] | [place] [address] | | | [facility] | | | | | LABORATORY | | | | + + + + + documented in this encounter Visit Diagnoses + + | Diagnosis | + + | Chest pain, unspecified | + + documented in this encounter
--- OUTSIDE RECORDS SUMMARY | ~2019-07-30 | XMS | Encounter Summary ---
Demographics + + + | Address | [address] | | | [place] [address] | + + + | Home Phone | | + + + | Preferred Language | Unknown | + + + | Marital Status | | + + + | Episcopal Affiliation | 1001 | + + + | Race | Unknown | + + + | Ethnic Group | Unknown | + + + Author + + + | Author | [facility] | | | and [place] | + + + | Organization | [facility] | | | [...] Team Providers + +------+ + | Care Meat Cutter Name | Role | Phone | + +------+ + | Doug García MD | PCP | | + +------+ + Reason for Visit + + + | Reason | Comments | + + + | Coronary Artery | post CABG f/u | | Disease | | + + + Encounter Details +--------+---------+ + + + | Date | Type | Department | Care Team | Description | +--------+---------+ + + + | 05/14/ | Office | [facility] | Fly Christianson, | Dizziness of unknown | | 2013 | Visit | [facility] | MD [address] | cause (Primary Dx); | | | | [address] | [address] [place], | Coronary artery | | | | [address] [place], [place] | [place] [address] | disease; | | | | [address] | [phone] | Hyperlipidemia; | | | | [phone] | | Chronic diastolic | | | | | | CHF (congestive | | | | | | heart failure), NYHA | | | | | | class 2 (HCC); | | | | | | Paroxysmal atrial | | | | | | fibrillation (HCC) | +--------+---------+ + + + Social [...] + + + | Blood Pressure | 112/86 | 05/14/2014 11:19 AM | right | | | | PDT | | + + + + + | Pulse | 72 | 05/14/2014 11:19 AM | regular | | | | [...] Weight | 77.6 kg (171 lb) | 05/14/2014 11:19 AM | | | | | PDT | | + + + + + | Height | 165.1 cm (5' 5") | 05/14/2014 11:19 AM | | | | | PDT | | + + + + + | Body Mass Index | 28.46 | 05/14/2014 11:19 AM | | | | | PDT [...] documented as of this encounter Progress Notes Wei Tavera MD - 05/14/2014 11:28 AM PDT PATIENT NAME: Chaya Chan : 1940: AGE: 73 y.o. PRIMARY CARE: Doug García MD CHIEF COMPLAINT: Chief Complaint Patient presents with Coronary Artery Disease post CABG f/u HISTORY OF PRESENT ILLNESS 73 y.o. year old female with hx of CABG and CHF; Denies recurrent afib episodes. Dizzines s has improved with meclizine. Has tolerated medication changes. Mrs Cahn is very fatigued, but is otherwise doing well since she last saw us. Dizziness She continues to be dizzy, and says she has been dizzy "all my life" She had been getting d ramon and nauseated for about 2 hours after taking her medications, and this is now resolved. She describes the dizziness as "feeling like I'm spinning". It is not a feeling of pre-sync ope or lightheadedness. She had had this sensation since December. At her last visit we decreased her metoprolol. Also after this visit, she started taking me clizine about an hour before her medications, and this has resolved her nausea and dizziness . If she does not take her meclizine, she gets just as nauseated and dizzy as before. Anginal pain This has completely resolved. Prior to the surgery she had a pain in the front of her chest "like something was grabbing it" and this occurred with any kind of activity. Now she is ab le to walk a mile in under 45 minutes, and she can use the stair stepper machine for a minut e and a half. Her activity is limited by fatigue, but she has had no chest pressure or short ness of breath with activity. She has been exercising at least once daily. Hypertension She occasionally checks her pressures at home and it has all been an average of 110/70. Moi etimes her pressure is as low as 90/59, but this was months ago. Chronic diastolic HF She denies any shortness of breath at night and is able to lie flat on her side. No new swe lling in her legs. She has gained about 10 lbs in the past month. Pertinent ROS: No sensations of her heart fluttering or beating fast. See above for other ROS. CURRENT ASSESSMENT BY PROBLEM LIST Dizziness of unknown cause Seems to be resolved on meclizine and she does not describe lightheadedness or pre-syncope. No cardiac symptoms, and she is tolerating her exercise regimen very well. Continue managem ent as per Dr. García. Coronary artery disease Tolerating exercise very well, with no anginal pain since her surgery. Continue exercise an d continue current medication regimen. Hyperlipidemia Continue atorvastatin 40mg daily. Chronic diastolic CHF (congestive heart failure), NYHA class 2 No symptoms--minimal edema and no nocturnal dyspnea or orthopnea. Continue dyazide. Paroxysmal atrial fibrillation Resolved. Her heart rate has been regular and she has had no recurrence of her a-fib. This was likely just a post-operative event that has resolved. Addendum: I have seen and examined the patient and agree with the above findings and assessment. I h ave added my findings and comments to the note. Plan: 1. Patient clinically doing well on current regimen. No recurrent heart failure or anginal symptoms. We'll continue current medical regimen. Clinical followup in one year Fly Christianson MD [facility] Cardiology FOLLOWUP Return in about 1 year (around 05/14/2015). MEDICATION ADJUSTMENTS New Prescriptions No medications on file These Medications Have Changed Start Taking Instead of magnesium, as oxide, (GNP MAGNESIUM) 250 MG tablet magnesium (GNP MAGNESIUM) 250 MG tablet Dosage: Take 250 mg by mouth 3 times daily. - Oral Dosage: Take 250 mg by mouth 2 times daily. - Oral atorvaSTATin (LIPITOR) 40 mg tablet atorvaSTATin (LIPITOR) 40 mg tablet Dosage: Take 40 mg by mouth nightly. - Oral Dosage: Take 1 tablet by mouth Daily. - Oral metoprolol tartrate (LOPRESSOR) 25 mg tablet metoprolol tartrate (LOPRESSOR) 25 mg tablet Dosage: Take 12.5 mg by mouth 2 times daily. HAS BEEN QUARTERING THE 50 MG TABLETS THAT T EM HAVE AND WILL RESUME CUTTING THE 25 MG'S IN HALF WHEN THEY ARE DONE WITH THE 50 MG TABS - Oral Dosage: Take 0.5 tablets by mouth 2 times daily. - Oral Medications Discontinued During This Encounter Medication Reason scopolamine (TRANSDERM-SCOP) 1.5 mg Patient Not Taking metoprolol tartrate (LOPRESSOR) 25 mg tablet atorvaSTATin (LIPITOR) 40 mg tablet magnesium (GNP MAGNESIUM) 250 MG tablet NEW ORDERS No orders of the defined types were placed in this encounter. . MEDICAL, SURGICAL, AND PERSONAL HISTORY Past Medical History Diagnosis Date Coronary artery disease Hyperlipidemia Hypertension Thyroid disease MS (myocardial infarction) (HCC) CHF (congestive heart failure) (HCC) Restless legs syndrome (RLS) 12/30/2010 Benign paroxysmal positional vertigo 03/13/2014 Carotid artery stenosis 03/13/2014 Past Surgical History Procedure Date Coronary angioplasty Tonsillectomy Other surgical history 12/17/2013 CV DIAGNOSTIC CARDIAC CATH performed by Erum Gerardo MD at [facility] CARDIOVASCULAR LA B Coronary artery bypass graft 12/24/2013 CORONARY ARTERY BYPASS GRAFT performed by Sj Viera MD at [facility] MAIN OR Stent placement additional vess Her family history includes Stroke in her mother. There is no history of Heart disease. She reports that she has never smoked. She has never used smokeless tobacco. She reports t hat she drinks alcohol. She reports that she does not use illicit drugs. CURRENT MEDICATIONS Outpatient Encounter Prescriptions as of 05/14/2014 Medication Sig Dispense Refill Ascorbic Acid (VITAMIN C) 1000 MG tablet Take 1,000 mg by mouth Daily. aspirin 81 mg EC tablet Take 81 mg by mouth nightly. atorvaSTATin (LIPITOR) 40 mg tablet Take 40 mg by mouth nightly. [DISCONTINUED] atorvaSTATin (LIPITOR) 40 mg tablet Take 1 tablet by mouth Daily. 30 ta blet 11 famotidine (PEPCID) 20 mg tablet Take 1 tablet by mouth Daily. 30 tablet 0 ferrous gluconate (FERGON) 324 (38 FE) MG tablet Take 1 tablet by mouth 2 times daily ( with breakfast & dinner). 60 tablet 6 folic acid 1 mg tablet Take 1 tablet by mouth Daily. 30 tablet 6 HYDROcodone-acetaminophen (NORCO) 5-325 mg per tablet Take 1 tablet by mouth every 4 ho urs as needed for Pain. 60 tablet 0 ibuprofen (ADVIL,MOTRIN) 600 MG tablet Take 600 mg by mouth 2 times daily (with breakfa st & dinner). levothyroxine (SYNTHROID, LEVOTHROID) 75 MCG tablet Take 1 tablet by mouth every mornin g (before breakfast). 30 tablet 11 lisinopril (PRINIVIL, ZESTRIL) 5 mg tablet Take 5 mg by mouth Daily. [DISCONTINUED] magnesium (GNP MAGNESIUM) 250 MG tablet Take 250 mg by mouth 2 times amadou ly. magnesium, as oxide, (GNP MAGNESIUM) 250 MG tablet Take 250 mg by mouth 3 times daily. meclizine (ANTIVERT) 25 mg tablet Take 1 tablet by mouth every 6 hours as needed. 60 t ablet 2 metoprolol tartrate (LOPRESSOR) 25 mg tablet Take 12.5 mg by mouth 2 times daily. HAS B EEN QUARTERING THE 50 MG TABLETS THAT THEY HAVE AND WILL RESUME CUTTING THE 25 MG'S IN HALF WHEN THEY ARE DONE WITH THE 50 MG TABS [DISCONTINUED] metoprolol tartrate (LOPRESSOR) 25 mg tablet Take 0.5 tablets by mouth 2 times daily. 60 tablet 6 [DISCONTINUED] scopolamine (TRANSDERM-SCOP) 1.5 mg Apply patch behind ear at least 4 ho urs before event; do not cut 10 patch 3 triamterene-hydrochlorothiazide (DYAZIDE) 37.5-25 MG per capsule Take 1 capsule by mout h Daily. 30 capsule 11 zinc sulfate 220 mg capsule Take 220 mg by mouth 2 times daily. ALLERGIES Allergies Allergen Reactions Iodine Anaphylaxis Diltiazem Hcl Latex Lidocaine Red Dye ROS 14 point ROS was completed and is negative except for: Occasional, malaise fatigue, dizzine ss. PHYSICAL EXAM BP 112/86 | Pulse 72 | Ht 1.651 m (5' 5") | Wt 77.565 kg (171 lb) | BMI 28.46 kg/m2 Body mass index is 28.46 kg/(m^2). GENERAL: Pleasant appearing in no apparent distress HEENT: Conjunctivae and lids are normal in appearance. Eyes: Extraocular movements intact. NECK: Supple, no JVD, Carotids are 2+ and brisk bilaterally without bruits. CHEST: Good inspiratory effort with no crackles, ronchi, or wheezes. CARDIAC: Regular rate and rhythm with normal S1 and S2. Grade 2/6 systolic ejection murmu r loudest at RUSB. Blood pressures are equal in upper extremities. ABDOMEN: Soft, non-tender, nondistended with normal, active bowel sounds. Normal abdominal pulsation without bruit. EXTREMITIES: No clubbing, cyanosis. +1 pitting pretibial pitting edema bilaterally. PULSES: Right: radial 2+, PT 2+ Left: radial 2+, PT 2+ NEUROLOGIC: Non-focal. Patient is oriented to time, place, and person. Normal affect. SKIN: No rashes or skin breakdown. MUSCULOSKELETAL: Normal gait. Muscle strength is equal bilaterally. LABS Lab Results Component Value Date WBC 6.4 02/25/2014 HGB 10.9* 02/25/2014 HCT 32.5* 02/25/2014 PLT 224 02/25/2014 CHOL 115 12/16/2013 TRIG 70 12/16/2013 HDL 53 12/16/2013 ALT 31 02/25/2014 AST 20 02/25/2014 NA 141 02/25/2014 K 5.2* 02/25/2014 CL 101 02/25/2014 CREA 1.60* 02/25/2014 BUN 24* 02/25/2014 CO2 32 02/25/2014 TSH 6.59* 02/25/2014 INR 1.5* 01/30/2014 Thank you for allowing me to participate in the care of this patient. If you have any ques tions, please do not hesitate to contact me. Signed by: Wei Tavera MD 05/14/2014, 12:06 Patient Care Team: Doug García MD as PCP - General (Pulmonary Disease) Erum Gerardo MD as Physician (Cardiology) documented in this e ncounter Plan of Treatment Not on filedocumented as of this encounter Visit Diagnoses + + | Diagnosis | + + | Dizziness of unknown cause - Primary | + + | Coronary artery disease Coronary atherosclerosis of unspecified type of vessel, | | [place] or graft | + + | Hyperlipidemia Other and unspecified hyperlipidemia | + + | Chronic diastolic CHF (congestive heart failure), NYHA class 2 (HCC) | + + | Paroxysmal atrial fibrillation (HCC) Atrial fibrillation | + + documented in this encounter
--- OUTSIDE RECORDS SUMMARY | ~2019-07-30 | XMS | Encounter Summary ---
Demographics + + + | Address | [address] | | | [place] [address] | + + + | Home Phone | | + + + | Preferred Language | Unknown | + + + | Marital Status | | + + + | Yazdanism Affiliation | 1001 | + + + | Race | Unknown | + + + | Ethnic Group | Unknown | + + + Author + + + | Author | [facility] | | | and [place] | + + + | Organization | [facility] | | [...] Team Providers + +------+ + | Care Short Range [employer] Artillery Name | Role | Phone | + [...] Follow-up | | 2018 | | Cardiology [facility] | [address] | | | | | [address] | [address] | | | | | [address] [place] | [place] | | | | | [address] | [address] | | | | | [phone] | [phone] | | | | | | | [...]
--- OUTSIDE RECORDS SUMMARY | ~2019-07-30 | XMS | Encounter Summary ---
Demographics + + + | Address | [address] | | | [place] [address] | + + + | Home Phone | | + + + | Preferred Language | Unknown | + + + | Marital Status | | + + + | Anglican Affiliation | 1001 | + + + | Race | Unknown | + + + | Ethnic Group | Unknown | + + + Author + + + | Author | [facility] | | | and [place] | + + + | Organization | [facility] | | [...] Team Providers + +------+ + | Care Medical Record Retrieval Specialist Name | Role | Phone | [...] Echo | | | Services | | | MD Doug | [address] | | | Required | | Atherosclero | [address] | | | | | tic heart | [address] | [place], [place] | | | | | disease of | Ave. | [address] | | | | | [place] | [place], [place] | Phone: | | | | | coronary | [address] | [phone] | | | | | artery | Phone: | Fax: | | | | | without | [phone] | [phone] | | | | | angina | Fax: | | | | | | pectoris | [phone] | | | | | | Coronary | | | | | | | atherosclero | | | | | | | sis due to | | | | | | | calcified | | | | | | | coronary | | | | | | | lesion | | | | | | | Disorder of | | | | | | | arteries and | | | | | | | arterioles, | | | | | | | unspecified | | | | | | | (HCC) | | | | | | | Procedures | | | | | | | VAS CAROTID | | | | | | | DUPLEX | | | | | | | BILATERAL | | | | | | | vas carotid | | | | | | | duplex | | | | | | | bilateral | | | | | | | [id number] | | | +--------+ + + + + + Encounter Details +--------+ + + + + | Date | Type | Department | Care Team | Description | +--------+ + + + + | 12/05/ | Hospital | [facility] | Doug García MD | Coronary artery | | 2017 | Encounter | [facility] | [address] | disease due to | | | | [address] | [place] [address] | calcified coronary | | | | [place], [place] | [phone] | lesion; Bilateral | | | | [address] | | carotid artery | | | | [phone] | | disease (HCC) | +--------+ + + + + [...] | VAS CAROTID DUPLEX | Routin | 12/05/2016 | Coronary artery | Results for this | | BILATERAL | e | 11:00 AM | disease due to | procedure are in the | | | | PDT | calcified coronary | results section. | | | | | lesion Bilateral | | | | | | carotid artery | | | | | | disease (HCC) | | + +--------+ + + + documented in this encounter Results VAS Carotid Duplex Bilateral (12/05/2016 11:00 AM PDT) + + | Specimen | + + | | + + + + + | Narrative | Performed At | + + + | [facility] | | [address] [place] [address] PATIENT | RUDI - | | NAME: Chaya Chan : 1940: AGE: 76 | [facility] | | y.o.DATE OF SERVICE: 12/05/2016PRIMARY CARE: Doug García MD | | | ORDERING: Doug García MD NONINVASIVE CAROTID VASCULAR | | | [...] | | >70cm/sec, ICA:CCA >3.2 Criteria from [facility] Proc. | | | [id number] | | | CONCLUSION: Mild stenosis (less [...] | | | 12/05/2016 16:28 Bob Bartlett Echo/Toe Pounder 12/05/2016 | | | 12:46 | | |ICA:CCA ratio : WNL | | | | | | | | |Category % stenosis, | | |Normal/mild, PSV <130 cm/sec, ICA:CCA <1.6 | | |Moderate 50-69% , PSV 130-229 cm/sec, EDV <70cm/sec, ICA:CCA 1.6-3.1 | | |Severe >70%, PSV >230 cm/sec, EDV >70cm/sec, ICA:CCA >3.2 | | |Criteria from [facility] Proc. [id number] | | | | | |CONCLUSION: | [...] 16:28 | | | | | |Cristiane Charles/Toe Pounder 12/05/2016 12:46 | | | | | | | | | | | | | | | | | | | | + + + + + + + + | Performing | Address | City/State/Zipcode | Phone Number | | Organization | | | | + + + + + | [place] | [facility], [address] | [place] [address] | [phone] | | - IM[facility]ING - [facility] | [place] | | | + + + + + documented in this encounter Visit Diagnoses + + | Diagnosis | + + | Coronary artery disease due to calcified coronary lesion | + + | Bilateral carotid artery disease (HCC) Unspecified disorders of arteries and | | arterioles | + + documented in this encounter"
--- OUTSIDE RECORDS SUMMARY | ~2019-07-30 | XMS | Encounter Summary ---
Demographics + + + | Address | [address] | | | [place] [address] | + + + | Home Phone | | + + + | Preferred Language | Unknown | + + + | Marital Status | | + + + | Rastafarian Affiliation | 1001 | + + + [...] Team Providers + +------+ + | Care Adult Education Manager Name | Role | Phone | [...] Health | | 2017 | Outreach | [facility] | [address] | Conditions | | | | Internal Medicine | [place] [address] | | | | | [address] [facility] | [phone] | | | | | [place], [place] | | | | | | [address] | | | | | | [phone] | | | +--------+ + + + [...]
--- OUTSIDE RECORDS SUMMARY | ~2019-07-30 | XMS | Encounter Summary ---
Demographics + + + | Address | [address] | | | [place] [address] | + + + | Home Phone [...] Team Providers + +------+ + | Care Burr Picker Name | Role | Phone | [...] [address] [place], | | | | | [place] | [address] | [place] [address] | | | | | coronary | [address] | Phone: | | | | | artery | [place] | [phone] | | | | | Procedures | [address] | Fax: | | | | | [place] CABG, | Phone: | [phone] | | | | | ARTERIAL, | [phone] | | | | | | THREE | Fax: | | | | | | | [phone] | | +--------+--------+ + + + + [...] [facility] [address] [place], [place] | (Primary Dx) | | | | [address] | [address] | | | | | [place] | | | | | | [address] | | | | | | [phone] | | | +--------+---------+ + + + [...] P A-C - 02/10/2014 2:18 PM PDT [facility] CARDIOTHORACIC SURGERY OUTPATIENT POST-OP VISIT Pt. Name/Age/: Chaya Chan 73 y.o. 1940 Med. Record Number: [id number] Date of Service: 02/10/2014 Procedure: Coronary artery [...] 02/10/2014 14:18 Reena Ralph PA-C Cardiothoracic Surgery [facility] [address] [place] [address] documented in this encounter Plan of Treatment Not on filedocumented as of this encounter Visit Diagnoses + + | Diagnosis | + + | S/P CABG (coronary artery bypass graft) - Primary Postsurgical aortocoronary bypass | | status | + + documented in this encounter"
--- OUTSIDE RECORDS SUMMARY | ~2019-07-30 | XMS | Encounter Summary ---
Demographics + + + | Address | [address] | | | [place] [address] | + + + | Home Phone | | + + + | Preferred Language | Unknown | + + + | Marital Status | | + + + | Mu-Ism Affiliation | 1001 | + + + [...] Team Providers + +------+ + | Care Personnel Adviser Name | Role | Phone | + +------+ + | Doug García MD | PCP | | + +------+ + Encounter Details +--------+ + + + + | Date | Type | Department | Care Team | Description | +--------+ + + + + | 10/01/ | Hospital | [facility] | Conversion | Lumbar | | 2019 | Encounter | [facility] | Transaction, | radiculopathy; | | | | CLINIC [address] | Provider Unknown | Weakness of left | | | | [facility] | [phone] | lower extremity; | | | | [address] | | Degenerative lumbar | | | | [phone] | Adonis Calhoun MD | spinal stenosis; | | | | | [address] | Herniation of lumbar | | | | | [place], | intervertebral disc | | | | | [place] [address] | without myelopathy; | | | | | [phone] | Pre-op exam | | | | [...]
--- OUTSIDE RECORDS SUMMARY | ~2019-07-30 | XMS | Encounter Summary ---
Demographics + + + | Address | [address] | | | [place] [address] | + + + | Home Phone | | + + + | Preferred Language | Unknown | + + + | Marital Status | | + + + | Scientology Affiliation | 1001 | + + + | Race | Unknown | + + + | Ethnic Group | Unknown | + + + Author + + + | Author | [facility] | | | and [place] | + + + | Organization | [facility] | | | [...] Team Providers + +------+ + | Care Information Technology Associate Name | Role | Phone | [...] | | | | | vessel, | [address] | | | | | | [place] | Phone: | | | | | | graft | [phone] | | | | | | Procedures | Fax: | | | | | | [place] [facility] | [phone] | | | | | | Stress Test | | | | | | | (Exercise) | | | +--------+--------+ + + + + Reason for Visit + + + | Reason | Comments | + + + | Follow-up | post AL | + + + Encounter Details +--------+---------+ + + + | Date | Type | Department | Care Team | Description | +--------+---------+ + + + | 11/19/ | Office | [facility] | Fly Christiansno, | CORONARY ARTERY | | 2013 | Visit | Cardiology [facility] | MD [address] | DISEASE (Primary | | | | [address] | [address] [place], | Dx); Hypertension | | | | [address] [place], [place] | [place] [address] | | | | | [address] | [phone] | | | | | [phone] | | | +--------+---------+ + + + [...] Chief Complaint Patient presents with Follow-up post AL HISTORY OF PRESENT ILLNESS 73 y.o. year old female with with known coronary chills sclerotic heart disease and status post multiple circumflex stents. She was hospitalized in [place] for 2 days for a very l imited AL by enzymes. He refused further work up at that time and was treated medically. S he has had rare chest pain since then and has uses rare nitroglycerin tablets. He is grace barnes living with her family in [place] for the next few months. She has been reluctant for fu rther workup of this. She had not taken her blood pressure medications today before her vis it and states that her blood pressures are elevated in doctor's office. CURRENT ASSESSMENT BY PROBLEM LIST CORONARY ARTERY DISEASE S/P limited AL in [place] 10/2013 with peak troponin of only 1.54 [...] Coronary artery disease Hyperlipidemia Hypertension Thyroid disease AL (myocardial infarction) (HCC) Past Surgical History Procedure [...] Take 80 mg by mouth nightly. B Clmstru-Simjlu-ND ( VITAMIN B 50/B-COMPLEX) TABS once a [...] contact me. Signed by: Fly Christianson MD [facility] 11/19/2013, 8:44 Patient Care Team: Doug [...] of unspecified type of | | vessel, [place] or graft | + + | Hypertension Unspecified essential hypertension | + + documented in this encounter
--- OUTSIDE RECORDS SUMMARY | ~2019-07-30 | XMS | Encounter Summary ---
Demographics + + + | Address | [address] | | | [place] [address] | + + + | Home Phone | | + + + | Preferred Language | Unknown | + + + | Marital Status | | + + + | Oriental Orthodox Affiliation | 1001 | + + + | Race | Unknown | + + + | Ethnic Group | Unknown | + + + Author + + + | Author | [facility] | | | and [place] | + + + | Organization | [facility] | | [...] Providers + +------+ + | Care Assembler Name | Role | Phone | [...] Refill | | 2013 | | [facility] | [address] | | | | | Internal Medicine | [place] [address] | | | | | [address] [facility] | [phone] | | | | | [place], [place] | | | | | | [address] | | | | | | [phone] | | | +--------+--------+ + + + [...]
--- OUTSIDE RECORDS SUMMARY | ~2019-07-30 | XMS | Encounter Summary ---
Demographics + + + | Address | [address] | | | [place] [address] | + + + | Home Phone | | + + + | Preferred Language | Unknown | + + + | Marital Status | | + + + | Mandaeism Affiliation | 1001 | + + + | Race | Unknown | + + + | Ethnic Group | Unknown | + + + Author + + + | Author | [facility] | | | and [place] | + + + | Organization | [facility] | | | [...] Team Providers + +------+ + | Care Sheep And Wheat Farmer Name | Role | Phone | + [...] Description | +--------+---------+ + + + | 06/02/ | Office | Alejandra HOLLINS | Doug García MD | Obstructive sleep | | 2013 | Visit | [facility] | [address] | apnea (Primary Dx); | | | | Internal Medicine | [place] [address] | Coronary artery | | | | [address] | [phone] | disease; Benign | | | | [place], [place] | | essential | | | | [phone] | | hypertension; | | | | [phone] | | Restless legs | | | | | | syndrome (RLS); | | | | | | Carotid artery | | | | | | stenosis, bilateral; | | | | | | Paroxysmal [...] + + + | Blood Pressure | 153/75 | 06/02/2014 11:17 AM | | | | | PST | | + + + + + | Pulse | 70 | 06/02/2014 11:17 AM | | | | | PST | | + + + + + | Temperature | - | - | | + + + + + | Respiratory Rate | 20 | 06/02/2014 11:17 AM | | | | | PST | | + + + + + | Oxygen Saturation | 97% | 06/02/2014 11:17 AM | | | | | PST | | + + + + + | Inhaled Oxygen | - | - | | | Concentration | | | | + + + + + | Weight | 78.9 kg (174 lb) | 06/02/2014 11:17 AM | | | | | PST | | + + + + + | Height | 165.1 cm (5' 5") | 06/02/2014 11:17 AM | | | | | PST | | + + + + + | Body Mass Index | 28.96 | 06/02/2014 11:17 AM | | | | | PST [...] Instructions Patient Instructions Doug García MD - 06/02/2014 11:44 AM PSTFormatting of this note migh t be different from the original. Continuous Positive Airway Pressure (CPAP) Your doctor has prescribed continuous positive airway pressure (CPAP) therapy for you. A CP AP unit is a device that helps you breathe better at night. Using your CPAP device can be a shepherd part of your treatment for sleep apnea and other problems. CPAP is safe and highly effec tive, but it can take time to get used to the mask. Your doctor or medical supplier will giv e you tips for wearing and caring for your CPAP device. Here s what you need to know about using CPAP. General Guidelines Don t give up! It takes time to get used to wearing the mask at night. Practice wearing your CPAP device during the day, especially whenever you take a nap. Remember, there are several different types of masks. If you can t get used to your ma sk, ask your doctor about trying another style. One of them should work for you. Take your medications exactly as directed. Your doctor may prescribe a nasal spray to he lp open your nasal passages while you are using your CPAP device. Wear CPAP all night, every night, during all naps, and when you travel. If you lose or gain weight, ask your doctor to adjust the air pressure level of your CPA P. Keep your mask clean. Wash it often. Be sure to rinse the mask and tubing well with wate r to remove any soap. Let them air-dry thoroughly before using. Make yourself comfortable when sleeping with CPAP. Try using extra pillows. Setting Up Place the CPAP device on a sturdy table near your bed. Plug in the power cord. Connect the tubing to the machine. Arrange the headgear so that the longer straps are at the top. With the Velcro facing out (away from your face), put the four tabs through the top and side slots of the mask. Pull the straps through and press the Velcro back against the strap. Using CPAP Put the mask over your nose and slide the headgear over your head. Adjust the Velcro straps, slowly pulling them until the mask is secure against your face . Connect the tubing to your mask and turn on the switch. Lie down, relax, and breathe through your nose. Follow-Up Make a follow-up appointment as directed by our staff. Getting Used to CPAP CPAP takes some getting used to. If there s anything about CPAP you don t like, chances are there s a solution. Below are a few examples of common problems and possible solution s. If this happens: Try this: Air pressure is uncomfortable Try the device s ramp feature, which starts out at low pressure and slowly raises pressure to your prescribed level. Try a bilevel or autoCPAP device. Discomfort in your nose Try a saline nasal spray. Ask your healthcare provider about tr j carlos an antihistamine, decongestant, or prescription nasal spray. Ask for a prescription warm-air humidifier for your device. Adjust the humidification if you already use it. Try a mask that sends air through the mouth instead of the nose. Keep in mind that even if you do nothing, nasal stuffiness may go away within a month. Discomfort in your mouth Try a chin strap to keep the mouth closed while you sleep. Try a mask that covers both nose and mouth. Connect a prescription warm-air humidifier to your device. Adjust the humidification. Discomfort in your eyes, or CPAP works less well than before Adjust your headgear to st op air leaks from around the mask. Replace your mask with one that fits better, is a different size, or fits inside your no strils. Mask is uncomfortable Adjust fit and tightness of mask and headgear. Put cushions at pressure points. Try a mask of a different style or size. Ask your provider about nasal pillows. If the mask irritates your skin, try a mask of a different material. Air pump is too loud Use a longer hose so the device can go on the floor or under the b ed. Ask the device supplier for advice. Try a different CPAP device. Keep in mind that any device s sound is quieter and easie r to tune out than snoring. When to Call Your Doctor Call your doctor right away if you have any of the following: Ear pain that feels worse when you use the CPAP device Ear infection Chest pain Trouble breathing [id number] [facility], [address] [place] [address], [place] [address]. All rights reserve d. This information is not intended as a substitute for professional medical care. Always fo llow your healthcare professional's instructions. documented in this encounter Progress Notes Doug García MD - 06/02/2014 11:45 AM PSTFormatting of this note might be different from t eleonora original. [facility] CLINIC NOTE Patient Name: Chaya Chan 73 y.o. Date of : 1940 MR Number: [id number] Date of Visit: 06/02/2014 Patient Active Problem List Diagnosis Hypothyroidism Hyperlipidemia Obstructive sleep apnea Restless legs syndrome (RLS) Benign essential hypertension Coronary artery disease Allergic reaction to contrast dye NSTEMI (non-ST elevated myocardial infarction) Chronic diastolic CHF (congestive heart failure), NYHA class 2 Stress hyperglycemia Paroxysmal atrial fibrillation Post pericardiotomy syndrome Second degree AV block Benign paroxysmal positional vertigo Carotid artery stenosis Subjective: Chaya Chan is a 73 y.o. female patient here today for follow up. She is feeling muc h better. She is dizzy less often. She preemptively takes her meclizine before she gets di zzy or lightheaded. She denies any chest pains. Her breathing is stable. She does get sh ort of breath with physical exertion and still gets tired easily. No orthopnea or PND. Patient's medications, allergies, past medical, surgical, social and family histories were reviewed and updated as appropriate. Current Outpatient Prescriptions on File Prior to Visit Medication Sig Ascorbic Acid (VITAMIN C) 1000 MG tablet Take 1,000 mg by mouth Daily. aspirin 81 mg EC tablet Take 81 mg by mouth nightly. atorvaSTATin (LIPITOR) 40 mg tablet Take 40 mg by mouth nightly. famotidine (PEPCID) 20 mg tablet Take 1 tablet by mouth Daily. ferrous gluconate (FERGON) 324 (38 FE) mg Take 1 tablet 2 times daily (with breakfast & dinner). folic acid 1 mg tablet Take 1 tablet by mouth Daily. levothyroxine 75 MCG tablet Take 1 tablet by mouth every morning (before breakfast). lisinopril (PRINIVIL, ZESTRIL) 5 mg tablet Take 5 mg by mouth Daily. magnesium, as oxide 250 mg tablet Take 250 mg by mouth 3 times daily. meclizine (ANTIVERT) 25 mg tablet Take 1 tablet by mouth every 6 hours as needed. metoprolol tartrate (LOPRESSOR) 25 mg tablet Take 12.5 mg by mouth 2 times daily zinc sulfate 220 mg capsule Take 220 [...] chest pain, no palpitations Respiratory - no cough, no hemoptysis, no wheezing Gastrointestinal - appetite good, bowel movements regular, no nausea, no abdominal pain , no melena or hematochezia Genitourinary - no dysuria, no gross hematuria Musculoskeletal - occasional joint pains, no back pain, no muscle aches Endocrine - no temperature intolerance, no excessive sweating Skin - no pruritus, no rash, no concerning skin lesions Neurological - no headaches, no tremors, no dizziness, no syncope Psychiatric - no anxiety, no depression, no insomnia Objective: BP 153/75 | Pulse 70 | Resp 20 | Ht 1.651 m (5' 5") | Wt 78.926 kg (174 lb) | BMI 28.96 kg/ m2 | SpO2 97% Gen Liang - alert, [...] this visit: 1. Obstructive sleep apnea 2. Coronary artery disease 3. Benign essential hypertension 4. Restless legs syndrome 5. Carotid artery stenosis, bilateral 6. Paroxysmal atrial fibrillation, maintains in sinus rhythm PLAN: We discussed the pathophysiology of sleep [...] to continue regular usage. Continue current medications. She declined flu vaccination. Followup in 3 months. Electronically signed by: Doug García 06/02/2014 11:45 [facility] documented in this encou nter Plan of Treatment Not on filedocumented as of this encounter Visit Diagnoses + + | Diagnosis | + + | Obstructive sleep apnea - Primary Obstructive sleep apnea (adult) (pediatric) | + + | Coronary artery disease Coronary atherosclerosis of unspecified type of vessel, | | [place] or graft | + + | Benign essential hypertension Essential hypertension, benign | + + | Restless legs syndrome (RLS) | + + | Carotid artery stenosis, bilateral | + + | Paroxysmal atrial fibrillation (HCC) Atrial fibrillation | + + documented in this encounter
--- OUTSIDE RECORDS SUMMARY | ~2019-07-30 | XMS | Encounter Summary ---
Demographics + + + | Address | [address] | | | [place] [address] | + + + | Home Phone | | + + + | Preferred Language | Unknown | + + + | Marital Status | | + + + | Hindu Affiliation | 1001 | + + + | Race | Unknown | + + + | Ethnic Group | Unknown | + + + Author + + + | Author | [facility] | | | and [place] | + + + | Organization | [facility] | | [...] Team Providers + +------+ + | Care Resident Director Name | Role | Phone | + +------+ + PCP | Unavailable | + +------+ + Encounter Details +--------+ + + + + | Date | Type | Department | Care Team | Description | +--------+ + + + + | 10/11/ | Hospital | [facility] | [place], | | | 2012 | Encounter | [facility] | Erum Ragland MD [address] | | | | [facility] [address] | | | | [facility] [address] | [address] [place], [place] | | | | | [address]VE [place], [place] | [address] | | | | | [address] | | | | | | [phone] | | | +--------+ + + + [...] | 0 | 04/06/20 | | | [facility] | | | | 11 | 4 [...]
--- OUTSIDE RECORDS SUMMARY | ~2019-07-30 | XMS | Encounter Summary ---
Demographics + + + | Address | [address] | | | [place] [address] | + + + | Home Phone [...] Team Providers + +------+ + | Care Reverberatory Skimmer Name | Role | Phone | + [...] + + | 08/24/ | [facility] | Sina [facility] | NSTEMI (non-ST | | 2018 | | [facility] | MD [address] | elevated myocardial | | | | EM[facility] | [address] | infarction) (HCC) | | | | [address] | [place] [address] | (Primary Dx); Atrial | | | | [place], [place] | [phone] | fibrillation with | | | | [address] | | RVR ([facility]) | | | | [phone] | | | +--------+ + + + [...] | | | | Beulah in at 1300. | | | | + + + + + + + + | Specimen | + + | Blood | + + + + + + + | Performing | Address | City/State/Zipcode | Phone Number | | Organization | | | | + + + + + | MONIKA SHEIKH | [address] | [place] [address] | | | [facility] | | | | | LABORATORY [...] + | ALEXE KORI | [address] [facility] | [place] [address] | | | [facility] | | [...] - 1.030 | [place] | | | [place] | | | [place] | | | [...] + | MONIKA SHEIKH | [address] [facility] | [place] [address] | | | [facility] | | [...] | + + + + + | [facility] | [address] | [place] [address] | | | [facility] | | | | | LABORATORY [...] | RANGE FOR PATIENTS 0-74 | | WILSON | | | | YEARS OF AGE [...] + + | MONIKA SHEIKH | [address] | [place] [address] | | | [facility] | | | | | LABORATORY [...] + + + + | ALEXE [facility] | [address] | [place] [address] | | | [facility] | | [...] + + | MONIKA SHEIKH | [address] | [place] [address] | | | [facility] | | | | | LABORATORY [...] + + + + | MONIKA [facility] | [address] | [place] [address] | | | [facility] | | | | | LABORATORY [...] | | | 324 mg, Oral, ONCE, [facility] 08/24/17 | | 18 9:40 | | [...]
--- OUTSIDE RECORDS SUMMARY | ~2019-07-30 | XMS | Encounter Summary ---
Demographics + + + | Address | [address] | | | [place] [address] | + + + | Home Phone [...] | | + + +---------+ + | Francesmmai Chan | ECON | Unknown | | + + +---------+ + Care Team Providers + +------+ + | Care Orthodontist Small Business Owner Name | Role | Phone | + [...] sleep | | 2013 | Visit | [facility] | [address] | apnea (Primary Dx); | | | | Internal Medicine | [place] [address] | Coronary artery | | | | [address] | [phone] | disease; Benign | | | | [place], [place] | | essential | | | | [address] | | hypertension; | | | | [phone] | | Restless legs | | | [...] device Ear infection Chest pain Trouble breathing [id number] [facility], [address] [place] [address], [place] [address]. All rights reserve d. This information is not intended as a substitute for professional medical care. Always fo llow your healthcare professional's instructions. documented in this encounter Progress Notes Doug García MD - 06/02/2014 11:45 AM PSTFormatting of this note might be different from t eleonora original. [facility] CLINIC NOTE Patient Name: Chaya Chan 73 y.o. Date of : 1940 MR Number: [id number] Date of Visit: 06/02/2014 Patient Active Problem [...] Electronically signed by: Doug García 06/02/2014 11:[address] [facility] documented in this encou nter Plan of Treatment Not on filedocumented as of this encounter Visit Diagnoses + + | Diagnosis | + + | Obstructive sleep apnea - Primary Obstructive sleep apnea (adult) (pediatric) | + + | Coronary artery disease Coronary atherosclerosis of unspecified type of vessel, | | [place] or graft | + + | Benign essential hypertension Essential hypertension, benign | + + | Restless legs syndrome (RLS) | + + | Carotid artery stenosis, bilateral | + + | Paroxysmal atrial fibrillation (HCC) Atrial fibrillation | + + documented in this encounter
--- OUTSIDE RECORDS SUMMARY | ~2019-07-30 | XMS | Encounter Summary ---
Demographics + + + | Address | [address] | | | [place] [address] | + + + | Home Phone | | + + + | Preferred Language | Unknown | + + + | Marital Status | | + + + | Tenriism Affiliation | 1001 | + + + | Race | Unknown | + + + | Ethnic Group | Unknown | + + + Author + + + | Author | [facility] | | | and [place] | + + + | Organization | [facility] | | [...] Team Providers + +------+ + | Care Bull Fiddle Player Name | Role | Phone | + [...] Description | +--------+---------+ + + + | 08/19/ | Office | Alejandra [facility] | Doug García MD | Obstructive sleep | | 2016 | Visit | [facility] | [address] | apnea (Primary Dx); | | | | Internal Medicine | [place] [address] | Benign essential | | | | [address] | [phone] | hypertension; | | | | [place], [place] | | Restless legs | | | | [address] | | syndrome (RLS); | | | | [phone] | | Second degree AV | | | | | | block; Paroxysmal | | | | | | atrial fibrillation | | | | | | ([facility]); Chronic | | | | | | diastolic CHF | | | | | | (congestive heart | | | | | | failure), NYHA class | | | | | | 2 ([facility]); Coronary | | | | | | artery disease due | | | | | | to calcified | | | | | | coronary lesion; | | | | | | Hypothyroidism due | | | | | | to acquired atrophy | | | | | | of thyroid; | | | | | | Hyperlipidemia, | | | | | | unspecified | | | | | | hyperlipidemia; | | | | | | Bilateral carotid | | | | | | artery stenosis | +--------+---------+ + + + Social History [...] + + + | Blood Pressure | 189/93 | 08/19/2015 4:01 PM | | | | | PST | | + + + + + | Pulse | 88 | 08/19/2015 4:01 PM | | | | | PST | | + + + + + | Temperature | - | - | | + + + + + | Respiratory Rate | 20 | 08/19/2015 4:01 PM | | | | | PST | | + + + + + | Oxygen Saturation | 96% | 08/19/2015 4:01 PM | | | | | PST | | + + + + + | Inhaled Oxygen | - | - | | | Concentration | | | | + + + + + | Weight | 79.4 kg (175 lb) | 08/19/2015 4:01 PM | | | | | PST | | + + + + + | Height | 165.1 cm (5' 5") | 08/19/2015 4:01 PM | | | | | PST | | + + + + + | Body Mass Index | 29.12 | 08/19/2015 4:01 PM | | | | | PST [...] Instructions Patient Instructions Doug García MD - 08/19/2015 4:46 PM PST Continuous Positive Air Pressure (CPAP) Continuous positive [...] types of CPAP. Your doctor or CPAP corrections identification technician will help you decide whic h [...] as body position, sleep stage, and snoring. [id number] [facility]. [address] [place] [id number]. All righ ts reserved. This information is not intended as a substitute for professional medical care. Always follow your healthcare professional's instructions. documented in this encounter Progress Notes Doug García MD - 08/19/2015 4:47 PM PSTFormatting of this note might be different from t he original. [facility] CLINIC NOTE Patient Name: Chaya Chan 74 y.o. Date of : 1940 MR Number: [id number] Date of Visit: 08/19/2015 Patient Active Problem List Diagnosis Hypothyroidism Hyperlipidemia Obstructive sleep apnea Restless legs syndrome (RLS) Benign essential hypertension Coronary artery disease CHRONIC SINUSITIS CEREBRAL ISCHEMIA Allergic reaction to contrast dye NSTEMI (non-ST elevated myocardial infarction) Chronic diastolic CHF (congestive heart failure), NYHA class 2 Stress hyperglycemia Paroxysmal atrial fibrillation Postoperative anemia due to acute blood loss Post pericardiotomy syndrome Second degree AV block Benign paroxysmal positional vertigo Carotid artery stenosis Subjective: Chaya Chan is a 74 y.o. female patient here today for follow up. She continues to d o well. She denies any significant shortness of breath. She has not noted any chest pains or palpitations, no recent pedal edema. She continues to use her CPAP regularly each night, averages 7-8 hours of sleep with the CP AP on. She has not had any snoring breakthrough. Occasionally still feels sleepy during day but this is now the exception rather than the rule. Patient's medications, allergies, past medical, surgical, social [...] Daily. levothyroxine (SYNTHROID, LEVOTHROID) 100 mcg tablet Take 1 tablet by mouth every morni ng (before breakfast). magnesium, as oxide, (GNP MAGNESIUM) [...] anxiety, no depression, no insomnia Objective: BP 189/93 mmHg | Pulse 88 | Resp 20 | Ht 1.651 m (5' 5") | Wt 79.379 kg (175 lb) | BMI 29.1 2 kg/m2 | SpO2 96% Repeat blood pressure 160/100 Gen Liang - alert, no distress, well-nourished HEENT - PERRLA, full EOM's, no icterus, no active nasal congestion, oral mucosa moist, p harynx clear Neck - supple, no lymphadenopathy, no JVD Lungs - clear breath sounds bilaterally, no rhonchi, no active wheezing, no crackles Heart - regular rhythm, normal rate, no murmur, no gallop Abdomen - soft, non-tender, bowel sounds active, no organomegaly Extremities - no calf tenderness, no pedal edema, pulses intact Skin - no rash, no active lesions Neurologic - mental status clear, no focal deficits Assessment and Plan: Chaya was seen today for follow-up. Diagnoses and all orders for this visit: 1. Obstructive sleep apnea 2. Benign essential hypertension 3. Restless legs syndrome (RLS) 4. Second degree AV block 5. Paroxysmal atrial fibrillation 6. Chronic diastolic CHF (congestive heart failure), NYHA class 2 7. Coronary artery disease due to calcified coronary lesion 8. Hypothyroidism due to acquired atrophy of thyroid 9. Hyperlipidemia 10. Bilateral carotid artery stenosis PLAN: We discussed the pathophysiology of sleep [...] the patient to continue regular usage. She will be watching her blood pressure and checking it twice a day for the next 2 weeks. If persistently elevated, systolic over 160 and/or diastolic over 95, I will start her on an ti-HTN medication. She will be following up at [facility] for her carotid artery neeta nosis - scheduled for tomorrow. Check labs prior to next visit including CBC, comprehensive metabolic panel, lipid panel, t hyroid studies. Follow-up in 6 months. Electronically signed by: Doug García 08/19/2015 16:47 [facility] documented in this encou nter Plan of Treatment + +------+--------+ + + | Name | Type | Priori | Associated Diagnoses | Order Schedule | | | | ty | | | + +------+--------+ + + | CBC with | Lab | Routin | Benign essential | 1 Occurrences | | Differential | | e | hypertension | starting 08/19/2015 | | | | | | until 08/18/2016 | + +------+--------+ + + | Comprehensive | Lab | Routin | Benign essential | 1 Occurrences | | Metabolic Panel | | e | hypertension | starting 08/19/2015 | | | | | | until 08/18/2016 | + +------+--------+ + + | TSH | Lab | Routin | Hypothyroidism due | 1 Occurrences | | | | e | to acquired atrophy | starting 08/19/2015 | | | | | of thyroid | until 08/18/2016 | + +------+--------+ + + | Lipid Panel | Lab | Routin | Hyperlipidemia | 1 Occurrences | | | | e | | starting 08/19/2015 | | | | | | until 08/18/2016 | + +------+--------+ + + documented as of this encounter Visit Diagnoses + + | Diagnosis | + + | Obstructive sleep apnea - Primary Obstructive sleep apnea (adult) (pediatric) | + + | Benign essential hypertension Essential hypertension, benign | + + | Restless legs syndrome (RLS) | + + | Second degree AV block Other second degree atrioventricular block | + + | Paroxysmal atrial fibrillation (HCC) Atrial fibrillation | + + | Chronic diastolic CHF (congestive heart failure), NYHA class 2 (HCC) | + + | Coronary artery disease due to calcified coronary lesion | + + | Hypothyroidism due to acquired atrophy of thyroid | + + | Hyperlipidemia, unspecified hyperlipidemia | + + | Bilateral carotid artery stenosis Occlusion and stenosis of multiple and bilateral | | precerebral arteries without mention of cerebral infarction | + + documented in this encounter
--- OUTSIDE RECORDS SUMMARY | ~2019-07-30 | XMS | Encounter Summary ---
Demographics + + + | Address | [address] | | | [place] [address] | + + + | Home Phone | | + + + | Preferred Language | Unknown | + + + | Marital Status | | + + + | Taoism Affiliation | 1001 | + + + | Race | Unknown | + + + | Ethnic Group | Unknown | + + + Author + + + | Author | [facility] | | | and [place] | + + + | Organization | [facility] | | [...] Team Providers + +------+ + | Care Air Carrier Maintenance Inspector Name | Role | Phone | + +------+ + | Doug García MD | PCP | | + +------+ + Encounter Details +--------+ + + + + | Date | Type | Department | Care Team | Description | +--------+ + + + + | 08/24/ | Hospital | [facility] | Ivon Shelton | Coronary artery | | 2018 - | Encounter | [facility] | MD Adrian [address] | disease involving | | | | CARDIAC TRANSPLANT | [address] | coronary bypass | | 08/26/ | | [address] | [place] [address] | graft of tolowa dee-ni' | | 2018 | | [place], [place] | [phone] | heart with unstable | | | | [address] | | angina pectoris | | | | [phone] | | ([facility]); Paroxysmal | | | | | | atrial fibrillation | | | | | | ([facility]); Benign | | | | | | essential | | | | | | hypertension; | | | | | | Cerebrovascular | | | | | | accident (CVA) due | | | | | | to occlusion of | | | | | | right middle | | | | | | cerebral artery | | | | | | ([facility]); Mitral valve | | | | | | insufficiency, | | | | | | unspecified | | | | | | etiology; NSTEMI | | | | | | (non-ST elevated | | | | | | myocardial | | | | | | infarction) ([facility]); | | | | | | Chronic diastolic | | | | | | CHF (congestive | | | | | | heart failure), NYHA | | | | | | class 2 ([facility]); | | | | | | Non-rheumatic mitral | | | | | | regurgitation; | | | | | | Hyperlipidemia, | | | | | | unspecified | | | | | | hyperlipidemia type | +--------+ + + + + Social [...] Problem/Admission Diagnoses: NSTEMI (non-ST elevated myocardial infarction) ([facility]) Discharge Diagnoses: 1. NSTEMI: A. Minimal troponin leak in the face of rapid a-fib; suspected Type II NV B. Heart cath with prior closure of two of her SVGs (see below). C. Preserved EF at 60% D. Imdur added to her med regime 2. Known CAD: A. CABG X 4 in 2013 B. Had stopped her ASA and statin previously - both restarted. C. Preserved EF. 3. Paroxysmal atrial fibrillation: A. Single episode with RVR at [place] with spontaneous conversion to (and maintenance of) [...] Pinto presented to the emergency department in [place] on August 23 with complaints o f chest pain, relieved with nitroglycerin, but in the face of rapid atrial fibrillation. mami had noticed that she was having heart "fluttering" for the week prior to her presentation. While in the emergency department, she converted spontaneously to normal sinus rhythm and had no further chest pain. However, her initial troponin was mildly positive. She was subs equently transported to [facility] for further evaluation. Ms. Pinto had no [...] home on the morning of 2017. Follow-[place]: [place] [id number] [facility] [id number] [facility] [address] Message left for schedulers to call you for a 4-6 week f/u appointment. Doug García MD [address] [facility] [address] Schedule an appointment as soon as possible [...] 08/25/[address] Christianson: CONCLUSIONS: 1. diffuse tolowa dee-ni' coronary artery disease with 100% mid LAD, [...] to contact you for a 4-6 week mxulbo-th-xl sure and tel l them about when you will be in [place] and it will work for you. Follow-up with your primary care provider in one to 2 weeks-please call for an appointment. Heart healthy diet. Discharge References/Attachments Atrial Fibrillation, Discharge Instructions for ([place]) If patient has any further questions or concerns prior to above, instructed to call our off ice. Time spent on discharge planning:greater than 30 minutes Signed by: ABBY Farnsworth 08/26/2017, 8:49 Addendum: I have seen and examined the patient and agree with the above findings and assessment. I h elis added my findings and comments to the note. Plan: 1. D/C plans as outlined. Resume anticoagulation with hx of CVA presumed embolic Fly Christianson MD [facility] Portions of this chart were created with [employer] voice recognition software. Occasional wro ng-word or "sound-alike" substitutions may have occurred due to the inherent limitations of voice recognition software. Please read the chart carefully and recognize, using context, w here those substitutions have occurred. [facility] Main Office - [facility] [address], [address] [place], [place] [address] Office: Medical Records [facility] [place], [place] [address] Main: Physician referral and transfer line: Physician referral fax line: Medical Records phone: Medical Records fax: [facility] [address] [place] [address] Main: Medical Records Electronically signed by Fly [...] to contact you for a 4-6 week jsfhel-oo-sy sure and tel l them about when you will be in [place] and it will work for you. Follow-up with your primary care provider in one to 2 weeks-please call for an appointment. Heart healthy diet. AttachmentsThe following attachments cannot be sent through Care Everywhere.Atrial Fibrilla tion, Discharge Instructions for ([place])documented in this encounter Medications at Time of [...] HOSPITAL PROBLEM: NSTEMI (non-ST elevated myocardial infarction) ([facility]) CHIEF COMPLAINT: NSTEMI and PAF. ASSESSMENT AND PLAN * NSTEMI (non-ST elevated myocardial infarction) ([facility]) Assessment & Plan Troponin peak at 0.25 [...] fibrillation (HCC) Assessment & Plan Admitted to [facility] in atrial fibrillation with RVR with rate in 130s. Converted to normal sinus rhythm there after 5 mg IV metoprolol. K 3.8. Mag 2.3. TSH normal. [id number] Risk Score: 8 - 10.8% Estimated Stroke [...] CHF (congestive heart failure), NYHA class 2 ([facility]) Assessment & Plan BNP 1,140 at [facility]. Creatinine trending down to 1.19 from 1.44 [...] Portions of this chart were created with Ven[employer] voice recognition software. Occasional wro ng-word or [...] + + | Glucose | 141 (H)Comment: Zimbabwean | 65 - 99 mg/dL | [facility] [...] + + | MONIKA M[facility]CH[facility] | [address] | [place] [address] | | | [facility] | | | | | LABORATORY | [...] + | [facility] | [address] [facility] [address] | [place] [address] | | | [facility] | [...] | | MARKIE PINTO Study Date: 08/25/2017MRN: [id number] | | | Patient Location: [facility] 655DOB: 1940 | | | [...] | | | Physician: Timothy SALINASocardiographer: Vane [id number]: | | | | | |Pulmonic Valve: [...] |Ordering Physician: MARIA ANTONIA SALINAS | | |Associate Director Of Biostatistics: Vane Viera | | |[id number]: | | | | | + + ----+ + + | Procedure Note | + + | Carlos Martínez Results In - 08/25/2017 7:05 PM PST | | Adult Echo | | Report | | | | Name: MARKIE PINTO Study Date: 08/25/2017 | | Patient Location: [place] [address] | | : 1940 Age: 76 yrs [...] Ordering Physician: MARIA ANTONIA SALINAS | | Associate Director Of Biostatistics: Vane Viera | | [id number]: | + + + +---------+ + + [...] | TRACEMASTER | | Duration:180 msP Horizontal Mobile:7 degP Front Mobile:65 degQ Onset:516 | | | msQRSD Interval:118 msQT Interval:476 msQTcB:476 msQTcF:476 msQRS | | | Horizontal Mobile:-77 degQRS Mobile:-31 degI-40 Horizontal Mobile:39 degI-40 | | | Front Mobile:68 degT-40 Horizontal Mobile:239 degT-40 Front Mobile:-56 degT | | | Horizontal Mobile:110 degT Wave Mobile: degS-T Horizontal Mobile:132 degS-T | | | Front Mobile:206 degSeverity:- ABNORMAL ECG -INTERP:SINUS | | | RHYTHMINTERP:LVH WITH IVCD AND SECONDARY REPOL ABNRMElectronically | | | signed by: ERUM MIMS 08-26-2017 10:50:00 | | |QTcB:476 ms | | |QTcF:476 ms | | |QRS Horizontal Mobile:-77 deg | | |QRS Mobile:-31 deg | | |I-40 Horizontal Mobile:39 deg | | |I-40 Front Mobile:68 deg | | |T-40 Horizontal Mobile:239 deg | | |T-40 Front Mobile:-56 deg | | |T Horizontal Mobile:110 deg | | |T Wave Mobile: deg | | |S-T Horizontal Mobile:132 deg | | |S-T Front Mobile:206 deg | | |Severity:- ABNORMAL ECG - | | |INTERP:SINUS RHYTHM | | |INTERP:LVH WITH IVCD AND SECONDARY REPOL ABNRM | | |Electronically signed by: ERUM MIMS 08-26-2017 10:50:00 | | + + + + + + + + | Performing | Address | City/State/Zipcode | Phone Number | | Organization | | | | + + + + + | [facility] | [address] | [place] [address] | [phone] | + + + + + PTT [...] + + | MONIKA MELCHOR | [address] | [place] [address] | | | [facility] | | | | | LABORATORY | | | | + + + + + NM Nuclear Stress Test (Exercise) (08/25/2017 9:45 AM PST) + + | Specimen | + + | | + + + + ---+ | Narrative | Performed A t | + + ---+ | PATIENT NAME: | [facility] | | Markie Pinto : 1940 [...] | | | Maria Antonia Bland NP [facility] READER: Fyl Christianson MD | | | NUCLEAR MEDICINE [...] | | | Interpreted by: Fly Christianson [facility] PROVIDER REPORT | | | Procedure: Single [...] + + | [facility] | [address] | [place] [address] | | | [facility] | [...] + | [facility] | [address] [facility] [address] | [place] [address] | | | [facility] | | | | | LABORATORY | [...] + | MONIKA MELCHOR | [address] [facility] [address] | [place] [address] | | | [facility] | | | | | LABORATORY | [...] + + | [facility] | [address] | [place] [address] | | | [facility] | [...] + + | Glucose | 136 (H)Comment: Zimbabwean | 65 - 99 mg/dL | [facility] [...] | + + + + + | [facility] | [address] | [place] [address] | | | [facility] | | | | | LABORATORY | [...] + | [facility] M[facility] | [address] | [place] [address] | | | [facility] | | | | | LABORATORY | | | | + + + + + Magnesium (08/24/2017 6:37 PM PST) + +-------+ + + + | Component | Value | Ref Range | Performed | Pathologist | | | | | At | Signature | + +-------+ + + + | Magnesium | 2.3 | 1.7 - 2.4 mg/dL | [facility] | | | | [...] + + | MONIKA MELCHOR | [address] | [place] [address] | | | [facility] | | | | | LABORATORY | [...] + + | MONIKA MELCHOR | [address] | [place] [address] | | | [facility] | | | | | LABORATORY | [...] | TRACEMASTER | | Duration:184 msP Horizontal Mobile:0 degP Front Mobile:26 degQ Onset:512 | | | msQRSD Interval:114 msQT Interval:460 msQTcB:460 msQTcF:460 msQRS | | | Horizontal Mobile:-83 degQRS Mobile:-34 degI-40 Horizontal Mobile:33 degI-40 | | | Front Mobile:61 degT-40 Horizontal Mobile:231 degT-40 Front Mobile:-56 degT | | | Horizontal Mobile:103 degT Wave Mobile:131 degS-T Horizontal Mobile:126 | | | degS-T Front Mobile:198 degSeverity:- ABNORMAL ECG -INTERP:SINUS | | | RHYTHMINTERP:LVH WITH IVCD AND SECONDARY REPOL ABNRMElectronically | | | signed by: ERUM MIMS 08-26-2017 10:50:06 | | |QTcB:460 ms | | |QTcF:460 ms | | |QRS Horizontal Mobile:-83 deg | | |QRS Mobile:-34 deg | | |I-40 Horizontal Mobile:33 deg | | |I-40 Front Mobile:61 deg | | |T-40 Horizontal Mobile:231 deg | | |T-40 Front Mobile:-56 deg | | |T Horizontal Mobile:103 deg | | |T Wave Mobile:131 deg | | |S-T Horizontal Mobile:126 deg | | |S-T Front Mobile:198 deg | | |Severity:- ABNORMAL ECG - [...] + + | GIDEON RÍOS | [address] [facility] [address] | [place] [address] | [phone] | + + + + + documented in this encounter Visit Diagnoses + + | Diagnosis | + + | NSTEMI (non-ST elevated myocardial infarction) (HCC) - Primary Acute myocardial | | infarction, subendocardial infarction, episode of care unspecified | + + | Coronary artery disease involving coronary bypass graft of tolowa dee-ni' heart with unstable | | angina pectoris (HCC) | + + | Paroxysmal atrial fibrillation (HCC) Atrial fibrillation | + + | Benign essential hypertension Essential hypertension, benign | + + | Cerebrovascular accident (CVA) due to occlusion of right middle cerebral artery (HCC) | + + | Mitral valve insufficiency, unspecified etiology | + + | Chronic diastolic CHF (congestive heart failure), NYHA class 2 (HCC) | + + | Non-rheumatic mitral regurgitation | + + | Hyperlipidemia, unspecified hyperlipidemia type | + + | Coronary artery disease Coronary atherosclerosis of unspecified type of vessel, | | tolowa dee-ni' or graft | + + documented in [...] | | | C (101.5 F), Starting [facility] 08/24/17 | | | | | | | at 1821 | | | | | | + +--------+ +--------+------+------+ +---+---+ | | | +---+---+ + +-------+ +--------+---+---+ | aminophylline 25 mg/mL | Given | 08/25/19 | 125 mg | | | | injection Starting 08/25/17 at | | 18 9:00 | | | | | 0844, For 1 dose, Martha Eid | | AM PST | | | | | : andrade wilcox, | | | | | | + +-------+ +--------+---+---+ +---+---+ | | | +---+---+ + +-------+ + +---+---+ | ascorbic acid (VITAMIN C) | Given | 08/26/19 | 1,000 mg | | | | tablet 1,000 mg 1,000 mg, Oral, | | 18 8:17 | | | | | DAILY, First dose on [facility] 08/24/17 | | AM PST | | [...] DAILY PRN, Constipation, | | | Starting [facility] 08/24/17 at 1821, If | | | [...] | | | DAILY, First dose on [facility] 08/24/17 | | AM PST | | [...] +-------+---+---+ | diphenhydrAMINE (BENADRYL) | Given | 08/25/19 | 25 mg | | | | injection 25 mg 25 mg, | | 18 11:02 | | | | | Intravenous, ONCE, 08/25/17 at | | AM PST | | | | | 1100, For 1 dose | | | | | | + +-------+ +-------+---+---+ +---+---+ | | | +---+---+ + +-------+ +-------+---+---+ | dipyridamole (PERSANTINE) 5 | Given | 08/25/19 | 44 mg | | | | mg/mL injection Starting Fri | | 18 9:45 | | | | | 08/25/17 at 0844, For 1 dose, | | AM PST | | | | | Martha Eid : andrade | | | | | | | override, | | | | | | + +-------+ +-------+---+---+ +---+---+ | | | +---+---+ + +-------+ +-------+---+---+ | famotidine (PEPCID) injection | Given | 08/25/19 | 20 mg | | | | 20 mg 20 mg, Intravenous, ONCE, | | 18 10:59 | | | | | 08/25/17 at 1100, For 1 dose, | | AM PST | | | | | Prior to administration, prepare | | | | | | | a 20 mg dose by diluting 2 mL of | | | | | | | famotidine 10 mg/mL to 10 mL with | | | | | | | normal saline., | | | | | | + +-------+ +-------+---+---+ +---+---+ | | | +---+---+ + + + + + +---+ | heparin in half-normal saline | Rate/Dos | 08/25/19 | 850 | 17 mL/hr | | | 50 units/mL infusion 0-3,000 | e Verify | 18 10:00 | Units/hr | | | | Units/hr (0-60 mL/hr), at 0-60 | | AM PST | | | | | mL/hr, Intravenous, TITRATED, | | | | | | | Starting [place] 08/24/17 at 1845, | | | | | | | CARDIAC DOSE HEPARIN PROTOCOL | | | | | | | INITIAL heparin infusion dose 950 | | | | | | | [...] | | | | | | 100 units/hr (1 unit/kg/hr) | | | | [...] | | | | decrease rate by 250 units/hr (3 | | | | | [...] +---+ + + + + +---+ | Rate/Dose Change | 08/25/19 | 850 | 17 mL/hr | | | | 18 4:09 | Units/hr | | | | | AM PST | | | | + + + + +---+ | Rate/Dose Change | 08/24/19 | 1,100 | 22 mL/hr | | | | 18 8:29 | Units/hr | | | | | PM PST | | | | + + + + +---+ +---+---+ | | | +---+---+ + +-------+ +-------+---+---+ | hydroCHLOROthiazide tablet 25 | Given | 08/26/19 | 25 mg | | | | mg 25 mg, Oral, DAILY, First | | 18 8:19 | | | | | dose on Mon08/24/17 at 1845 | | AM PST | [...] | | | | | dose on [facility] 08/24/17 at 1845, Give | | | [...] NIGHTLY PRN, | | | Constipation, Starting [place] 08/24/17 | | | at 1821, If docusate, senna, and | | | polyethylene glycol ineffective | | | x 24 hours or not ordered, | | + +---+ | | | + +---+ + +-------+ +-------+---+---+ | methylPREDNISolone sodium | Given | 08/24/19 | 60 mg | | | | succinate (solu-MEDROL) 62.5 | | 18 10:45 | | | | | mg/mL injection 60 mg 60 mg, | | PM PST | | | | | Intravenous, ONCE, [facility] 08/24/17 at | | | | | | | 2200, For 1 dose, Mix with 2 mL | | | | | | | provided diluent to make 62.5 | | | | | | | mg/mL., | | | | | | + +-------+ +-------+---+---+ +---+---+ | | | +---+---+ + +-------+ +-------+---+---+ | methylPREDNISolone sodium | Given | 08/25/19 | 60 mg | | | | succinate (solu-MEDROL) 62.5 | | 18 11:00 | | | | | mg/mL injection 60 mg 60 mg, | | AM PST | | | | | Intravenous, ONCE, 08/25/17 at | | | | | | | 1100, For 1 dose, Mix with 2 mL | | | | | | | provided diluent to make 62.5 | | | | | | | mg/mL., | | | | | | + [...] DAILY PRN, | | | Constipation, Starting [facility] 08/24/17 | | | at 1821, If docusate ineffective | | | or not ordered., | | + +---+ | | | + +---+ + +---------+ +--------+ +---+ | sodium chloride 0.45% (2 NS) | New Bag | 08/24/19 | 1,000 | 50 mL/hr | | | infusion at 50 mL/hr, | | 18 8:41 | mLs | | | | Intravenous, CONTINUOUS, Starting | | PM PST | | | | | [place] 08/24/17 at 1945, For 12 hours | | | | | | + +---------+ +--------+ +---+ +---+---+ | | | +---+---+ + +---------+ +---------+-------+---+ | sodium chloride 0.9% (NS) bolus | New Bag | 08/25/19 | 500 mLs | 250 | | | 500 mL 500 mL, Intravenous, | | 18 2:35 | | mL/hr | | | Administer over 2 Hours, ONCE, | | PM PST | | | | | 08/25/17 at 1500, For 1 dose, | | | | | | | Post-op/Phase II | | | | | | + +---------+ +---------+-------+---+ +---+---+ | | | +---+---+ + +-------+ + +---+---+ | technetium TC-99M sestamibi | Given | 08/25/19 | 26 | | | | (CARDIOLITE) injection 26 | | 18 9:45 | millicur | | | | millicurie 26 millicurie, | | AM PST | ies | | | | Intravenous, ONCE PRN, Other, | | | | | | | Starting Mon08/25/17 at 0945, For | | | | | | | 1 dose, Nuclear Medicine | | | | | | + +-------+ + +---+---+ +---+---+ | | | +---+---+ + +-------+ + +---+---+ | technetium TC-99M sestamibi | Given | 08/25/19 | 8.3 | | | | (CARDIOLITE) injection 8.3 | | 18 7:56 | millicur | | | | millicurie 8.3 millicurie, | | AM PST | ies | | | | Intravenous, ONCE PRN, Other, | | | | | | | Starting Mon08/25/17 at 0756, For | | | | | | | 1 dose, Nuclear Medicine | | | | | | + +-------+ + +---+---+ +---+---+ | | | +---+---+ documented in this encounter
--- OUTSIDE RECORDS SUMMARY | ~2019-07-30 | XMS | Encounter Summary ---
Demographics + + + | Address | [address] | | | [place] [address] | + + + | Home Phone | | + + + | Preferred Language | Unknown | + + + | Marital Status | | + + + | Muslim Affiliation | 1001 | + + + | Race | Unknown | + + + | Ethnic Group | Unknown | + + + Author + + + | Author | [facility] | | | and [place] | + + + | Organization | [facility] | | | and [place] | + + + | Address | Unknown | + + + | Phone | Unavailable | + + + Support + + +---------+ + | Name | Relationship | Address | Phone | + + +---------+ + | Kimberly Loyn | ECON | Unknown | | + + +---------+ + | Frances Dustin | ECON | Unknown | | + + +---------+ + Care Team Providers + +------+ + | Care Moss Bleacher Name | Role | Phone | + +------+ + PCP | Unavailable | + +------+ + Reason for Visit + + + | Reason | Comments | + + + | Medication Refill | | + + + Encounter Details +--------+--------+ + + + | Date | Type | Department | Care Team | Description | +--------+--------+ + + + | 07/16/ | Refill | Alejandra HOLLINS | Charito Coker | Medication Refill | | 2012 | | [facility] | [address] | | | | | Internal Medicine | [place] [address] | | | | | [address] [facility] | [place] [address] | | | | | [place], [place] | [phone] | | | | | [address] | | | | | | [phone] | | | +--------+--------+ + + + [...]
--- OUTSIDE RECORDS SUMMARY | ~2019-07-30 | XMS | Encounter Summary ---
Demographics + + + | Address | [address] | | | [place] [address] | + + + | Home Phone [...] Team Providers + +------+ + | Care Loan Operations Specialist Name | Role | Phone | + +------+ + | Doug García MD | PCP | | + +------+ + Encounter Details +--------+ + + + + | Date | Type | Department | Care Team | Description | +--------+ + + + + | 10/21/ | Emergency | [facility] | [facility], | Constipation, | | 2019 | | MEDICAL CENTER | [address] | unspecified | | | | EMERGENCY CENTER | [place] [address] | constipation type; | | | | [address] | [phone] | Other urinary | | | | [place], [place] | | incontinence; S/P | | | | [address] | | lumbar laminectomy | | | | [phone] | | | +--------+ + + + [...] + + + | Blood Pressure | 177/86 | 10/21/2018 9:58 AM | | | | | PDT | | + + + + + | Pulse | 88 | 10/21/2018 9:58 AM | | | | | PDT | | + + + + + | Temperature | 37.4 C (99.4 F) | 10/21/2018 9:58 AM | | | | | PDT | | + + + + + | Respiratory Rate | 16 | 10/21/2018 9:58 AM | | | | | PDT | | + + + + + | Oxygen Saturation | - | - | | + + + + + | Inhaled Oxygen | - | - | | | Concentration | | | | + + + + + | Weight | - | [...] | + +--------+ + + + | MRI LUMBAR SPINE WO | Routin | 10/21/2018 | | Results for this | | CONTRAST | e | 4:51 AM | | procedure are in the | | | | PDT | | results section. | + +--------+ + + + | URINALYSIS, REFLEX | Routin | 10/21/2018 | | Results for this | | MICROSCOPIC AND/OR | e | 4:00 AM | | procedure are in the | | CULTURE | | PDT | | results section. | + +--------+ + + + documented in this encounter Results MRI Lumbar Spine wo Contrast (10/21/2018 4:51 AM PDT) + + | Specimen | + + | | + + + + + | Impressions | Performed At | + + + | 1. Postoperative changes of left laminectomy at L4. Increased | | | broad-based central disc protrusion at L4-5, with increased | | | indentation of the ventral thecal sac. There is moderate ventral | | | epidural edema and dorsal subdural fluid collection that contribute | | | to severe canal stenosis and compression of the nerve roots. | | | Persistent left foraminal edema which could represent disc material | | | or postoperative changes/granulation tissue. Contrast enhancement | | | would prove helpful to further investigate. 2. There is extension | | | superiorly of right greater than left subdural fluid collections | | | which contribute to mild to moderate canal stenosis at L1-2, moderate | | | canal stenosis at L2-3 and mild canal stenosis at L3-4. The | | | description is as above.. 3. There is mild to moderate spondylosis at | | | L1-2. There is moderate degenerative spur spondylosis at L2-3 with | | | mild left-sided foraminal stenosis. There is ventral epidural | | | edema along the posterior aspect of L3 with mild to moderate | | | spondylosis. There is moderate left-sided and udbd-xs-wokeetof | | | right-sided foraminal stenosis that is stable in appearance. 4. | | | Fkjn-dd-lvvmpich disc bulge with severe facet spondylosis and | | | moderate to large ligamentous hypertrophy at L5-S1 creates mild canals | | | narrowing which is stable. There is mild right-sided foraminal | | | stenosis. Dictated by: Daniele Booker Paula Signed by: Alfreda | | | Florian Sanabria Date/Time: 10/21/2018 10:11 AM The radiologist | | | has reviewed the images and edited/approved the report. For | | | interventional procedures, the signing radiologist was present for | | | the shepherd portions of the exam. | | + + + + + + | Narrative | Performed At | + + + | MRI LUMBAR SPINE WITHOUT CONTRAST CLINICAL INFORMATION: Back pain. | | | History of surgery 10/15/2018. COMPARISON: Lumbar spine MRI dated | | | 07/30/2018. PROCEDURE: Sagittal T2, axial T2, sagittal T1, axial T1, | | | sagittal STIR sequences. FINDINGS: Alignment: There is continued | | | reversal of the lumbar lordosis centered at the L2-3 level with grade | | | 1 retrolisthesis at L3-4. There is a stable dextroconvex rotatory | | | curvature of the mid lumbar spine. Vertebrae and vertebral marrow | | | signal: Vertebral body height appears maintained. There is | | | continued severe decrease in disc height at L3-4 with mild decrease | | | in disc height at the other levels. There is moderate degenerative | | | endplate spondylosis with spurring at L2-4 with fznf-sd-fnhpnevt | | | spondylosis at L4-5 and mild spondylosis at the other levels. There | | | is mild endplate edema at the L1-2 and L2-3 levels. There is edema | | | within the soft tissues associated with left laminectomy at L4-5. | | | There is minimal endplate edema on the right at L5-S1. There is | | | mild facet edema on the right at L5-S1. There is mild right-sided | | | facet edema at L1-3. There are several small facet joint effusions. | | | Conus and imaged portions of the caudal cord: The conus terminates at | | | the L2 level. The conus has a normal appearance. Lumbar disc | | | levels: There are mild disc bulges in the lower thoracic spine | | | without significant canal or foraminal stenosis. L1-L2: There is a | | | fpob-ku-hcgpasxv posterior disc bulge with qpob-el-muybddxv facet | | | spondylosis and mild ligamentous hypertrophy. There is mass effect on | | | the nerve roots and conus at this level with subdural fluid | | | collection suggested measuring 4.6 mm on the right and 2 mm on the | | | left. This causes mild to moderate canal stenosis. The foramen | | | appear patent. L2-L3: There is moderate disc osteophyte complex. | | | There is moderate facet spondylosis with moderate ligamentous | | | hypertrophy. Subdural fluid collections are suggested on the right | | | greater than left side at the mid L2 level measuring 5.8 mm on the | | | right and 4 mm on the left with mass effect on the distal conus. | | | The subdural fluid collection on the right at the level of the disc | | | measures 4.4 mm. There is moderate canal stenosis. There is mild | | | left-sided foraminal stenosis. L3-L4: There is ventral epidural | | | edema in the posterior L3 level. Small posterior and right-sided | | | asymmetric subdural fluid collection is suggested that appears to | | | project superiorly from the L4-5 level. There is a moderate | | | osteophyte complex with mild left-sided asymmetric disc bulge. | | | There is mild to moderate facet spondylosis with mild ligamentous | | | hypertrophy. There is mild canal stenosis. There is moderate | | | left-sided and azos-un-wqlfopeh right-sided foraminal stenosis. The | | | foraminal stenosis appears stable. L4-L5: Left-sided laminectomy | | | postsurgical changes are demonstrated. There is fluid within the | | | postsurgical bed. There is posterior fluid collection in the | | | epidural space and appears to continue along the subdural space. | | | There is a moderate appearing disc bulge with continued edema in | | | left foramen. There is moderate edema within ventral epidural space | | | behind the L4 vertebral body. There is severe canal stenosis with | | | compression of the nerve roots. There is left-sided subarticular | | | recess stenosis with contact of L5 nerve roots. No postcontrast | | | imaging is demonstrated to evaluate for the degree of postsurgical | | | fibrosis. Canal stenosis has progressed from the prior study. The | | | right foramen is mildly narrowed. L5-S1: There is a | | | orrm-mq-algyakqw posterior disc bulge with severe facet spondylosis | | | and moderate to large ligamentous hypertrophy. There is mild canal | | | narrowing. There is mild right-sided foraminal stenosis. Paraspinal | | | musculature and paravertebral soft tissues: There is mild sacroiliac | | | joint spurring. There postsurgical changes within the dorsal soft | | | tissues asymmetric to the left. The soft tissues are otherwise | | | unremarkable. | | + + + + + | Procedure Note | + + | Carlos Martínez Conversion - 02/26/2019 11:12 PM PDT MRI LUMBAR SPINE WITHOUT CONTRAST | | CLINICAL INFORMATION: | | Back pain. History of surgery 10/15/2018. | | COMPARISON: | | Lumbar spine MRI dated 07/30/2018. | | PROCEDURE: | | Sagittal T2, axial T2, sagittal T1, axial T1, sagittal STIR sequences. | | FINDINGS: | | Alignment: There is continued reversal of the lumbar lordosis centered | | at the L2-3 level with grade 1 retrolisthesis at L3-4. There is a | | stable dextroconvex rotatory curvature of the mid lumbar spine. | | Vertebrae and vertebral marrow signal: Vertebral body height appears | | maintained. There is continued severe decrease in disc height at L3-4 | | with mild decrease in disc height at the other levels. There is | | moderate degenerative endplate spondylosis with spurring at L2-4 with | | dght-by-aqkmvqat spondylosis at L4-5 and mild spondylosis at the other | | levels. There is mild endplate edema at the L1-2 and L2-3 levels. | | There is edema within the soft tissues associated with left laminectomy | | at L4-5. There is minimal endplate edema on the right at L5-S1. There | | is mild facet edema on the right at L5-S1. There is mild right-sided | | facet edema at L1-3. There are several small facet joint effusions. | | Conus and imaged portions of the caudal cord: The conus terminates at | | the L2 level. The conus has a normal appearance. | | Lumbar disc levels: There are mild disc bulges in the lower thoracic | | spine without significant canal or foraminal stenosis. | | L1-L2: There is a ylgv-cz-exgnhhzb posterior disc bulge with | | jihb-hp-drgjzotg facet spondylosis and mild ligamentous hypertrophy. | | There is mass effect on the nerve roots and conus at this level with | | subdural fluid collection suggested measuring 4.6 mm on the right and 2 | | mm on the left. This causes mild to moderate canal stenosis. The | | foramen appear patent. | | L2-L3: There is moderate disc osteophyte complex. There is moderate | | facet spondylosis with moderate ligamentous hypertrophy. Subdural | | fluid collections are suggested on the right greater than left side at | | the mid L2 level measuring 5.8 mm on the right and 4 mm on the left | | with mass effect on the distal conus. The subdural fluid collection on | | the right at the level of the disc measures 4.4 mm. There is moderate | | canal stenosis. There is mild left-sided foraminal stenosis. | | L3-L4: There is ventral epidural edema in the posterior L3 level. | | Small posterior and right-sided asymmetric subdural fluid collection is | | suggested that appears to project superiorly from the L4-5 level. | | There is a moderate osteophyte complex with mild left-sided asymmetric | | disc bulge. There is mild to moderate facet spondylosis with mild | | ligamentous hypertrophy. There is mild canal stenosis. There is | | moderate left-sided and samn-qa-yqjxwwef right-sided foraminal | | stenosis. The foraminal stenosis appears stable. | | L4-L5: Left-sided laminectomy postsurgical changes are demonstrated. | | There is fluid within the postsurgical bed. There is posterior fluid | | collection in the epidural space and appears to continue along the | | subdural space. There is a moderate appearing disc bulge with | | continued edema in left foramen. There is moderate edema within | | ventral epidural space behind the L4 vertebral body. There is severe | | canal stenosis with compression of the nerve roots. There is | | left-sided subarticular recess stenosis with contact of L5 nerve roots. | | No postcontrast imaging is demonstrated to evaluate for the degree of | | postsurgical fibrosis. Canal stenosis has progressed from the prior | | study. The right foramen is mildly narrowed. | | L5-S1: There is a xvhy-lk-igrnstzi posterior disc bulge with severe | | facet spondylosis and moderate to large ligamentous hypertrophy. There | | is mild canal narrowing. There is mild right-sided foraminal stenosis. | | Paraspinal musculature and paravertebral soft tissues: There is mild | | sacroiliac joint spurring. There postsurgical changes within the | | dorsal soft tissues asymmetric to the left. The soft tissues are | | otherwise unremarkable. | | IMPRESSION: | | 1. Postoperative changes of left laminectomy at L4. Increased | | broad-based central disc protrusion at L4-5, with increased indentation | | of the ventral thecal sac. There is moderate ventral epidural edema | | and dorsal subdural fluid collection that contribute to severe canal | | stenosis and compression of the nerve roots. Persistent left foraminal | | edema which could represent disc material or postoperative | | changes/granulation tissue. Contrast enhancement would prove helpful | | to further investigate. | | 2. There is extension superiorly of right greater than left subdural | | fluid collections which contribute to mild to moderate canal stenosis | | at L1-2, moderate canal stenosis at L2-3 and mild canal stenosis at | | L3-4. The description is as above.. | | 3. There is mild to moderate spondylosis at L1-2. There is moderate | | degenerative spur spondylosis at L2-3 with mild left-sided foraminal | | stenosis. There is ventral epidural edema along the posterior aspect | | of L3 with mild to moderate spondylosis. There is moderate left-sided | | and umcs-uq-oikoqzyd right-sided foraminal stenosis that is stable in | | appearance. | | 4. Qiqf-fy-ohifjiwj disc bulge with severe facet spondylosis and | | moderate to large ligamentous hypertrophy at L5-S1 creates mild canals | | narrowing which is stable. There is mild right-sided foraminal | | stenosis. | | Dictated by: Daniele Booker Paula | | Signed by: Daniele Gant, Florian | | Sign Date/Time: 10/21/2018 10:11 AM | | The radiologist has reviewed the images and edited/approved | | the report. For interventional procedures, the signing | | radiologist was present for the shepherd portions of the exam. | + + Urinalysis, Reflex Microscopic and/or Culture (10/21/2018 4:00 AM PDT) + + + + + + | Component | Value | Ref Range | Performed | Pathologist | | | | | At | Signature | + + + + + + | Color | STRAW | | EXTERNAL | | | | | | LAB | | + + + + + + | Clarity | CLEAR | | EXTERNAL | | | | | | LAB | | + + + + + + | Specific | 1.003 | 1.002 - 1.030 | EXTERNAL | | | [facility] | | | LAB | | + + + + + + | Leukocyte | NEGATIVE | | EXTERNAL | | | Esterase, | | | LAB | | | Urine | | | | | + + + + + + | Nitrite, | NEGATIVE | | EXTERNAL | | | Urine | | | LAB | | + + + + + + | Urobilinoge | NORMAL | mg/dL | EXTERNAL | | | n, Urine | | | LAB | | + + + + + + | Protein, | NEGATIVE | mg/dL | EXTERNAL | | | Urine | | | LAB | | + + + + + + | pH, Urine | 6.0 | 5.0 - 8.0 | EXTERNAL | | | | | | LAB | | + + + + + + | Blood, | SMALL (A) | | EXTERNAL | | | Urine | | | LAB | | + + + + + + | Ketones | NEGATIVE | mg/dL | EXTERNAL | | | | | | LAB | | + + + + + + | Bilirubin, | NEGATIVE | | EXTERNAL | | | Urine | | | LAB | | + + + + + + | Glucose, | NEGATIVE | mg/dL | EXTERNAL | | | Urine | | | LAB | | + + + + + + | WBC, UA | 0-2 | 0 - 5 /hpf | EXTERNAL | | | | | | LAB | | + + + + + + | RBC, UA | 0-2 | 0 - 5 /hpf | EXTERNAL | | | | | | LAB | | + + + + + + | Bacteria, | 1+ (A) | | EXTERNAL | | | UA | | | LAB | | + + + + + + | Epithelial | 6-10 | /lpf | EXTERNAL | | | Cells | | | LAB | | + + + + + + | MUCUS UA | 1+Comment: Testing | | EXTERNAL | | | | performed at [facility];[address] | | LAB | | | | [address];[place] | | | | | | [id number] | | | | + + + [...] unspecified constipation type | + + | Other urinary incontinence | + + | S/P lumbar laminectomy | + + documented in this encounter"
--- OUTSIDE RECORDS SUMMARY | ~2019-07-30 | XMS | Encounter Summary ---
Demographics + + + | Address | [address] | | | [place] [address] | + + + | Home Phone [...] | Author | [facility] | | | and [place] | + + + | Organization | [facility] | | | and [...] Team Providers + +------+ + | Care Batch Freezer Name | Role | Phone | + +------+ + | Doug García MD | PCP | | + +------+ + Reason for Visit + + + | Reason | Comments | + + + | Follow-up | Carotid stenosis | + + + Surgical (Routine) +--------+ + + + + + | Status | Reason | Specialty | Diagnoses / | Referred By | Referred To | | | | | Procedures | Contact | Contact | +--------+ + + + + + | Closed | Specialty | Vascular | Diagnoses | Ricky | [facility] | | | Services | Surgery | Carotid | MD Doug | Vascular | | | Required | | artery | [address] | [place] | | | | | stenosis, | [place] | [facility] [address] | | | | bilateral | [address] | | | | | Procedures | [place], [place] | [address], | | | | | A-carotid | [address] | [place] | | | | | stenosis | Phone: | [address] | | | | | | [phone] | Phone: | | | | | | Fax: | [phone] | | | | | | [phone] | Fax: | | | | | | | [phone] | +--------+ + + + + + Encounter Details +--------+---------+ + + + | Date | Type | Department | Care Team | Description | +--------+---------+ + + + | 08/20/ | Office | [facility] | Colby Guerrero, | Carotid stenosis, | | 2016 | Visit | Vascular [place] | [place] [address] | bilateral (Primary | | | | [facility] [address] | [address] [place], | Dx); Dizziness | | | | [address] [address], [place] | [place] [address] | | | | | [address] | [phone] | | | | | [phone] | | | +--------+---------+ + + + [...] + + + | Blood Pressure | 178/100 | 08/20/2015 10:19 AM | | | | | PST | | + + + + + | Pulse | 83 | 08/20/2015 10:19 AM | | | | | PST [...] Weight | 79.4 kg (175 lb) | 08/20/2015 10:14 AM | | | | | PST | | + + + + + | Height | 165.1 cm (5' 5") | 08/20/2015 10:14 AM | | | | | PST | | + + + + + | Body Mass Index | 29.12 | 08/20/2015 10:14 AM | | | | | PST [...] documented as of this encounter Progress Notes Miesha Subramanian PA - 08/20/2015 10:33 AM PST [facility] [place] Name: Chaya Chan Date of : 1940 Assessment: 1. Carotid stenosis, bilateral Slight increases in velocities bilaterally, without change in category. Asymptomatic. 2. Dizziness Unrelated to carotid or vertebral artery circulation (both vertebral arteries are anteg rade). Plans: 1. Follow up in 1 year with a carotid ultrasound and appointment with Dr. Guerrero. Physician Comments: Patient not seen or examined but chart and duplex reviewed.. Agree wit h above assessment. There has not been much change in her modest bilateral carotid stenosis . Can follow-up in a year. On my prior evaluation a year ago I did not think that she had vertebrobasilar insufficiency. Colby Guerrero MD, FACS Patient Care Team: Doug García MD as PCP - General (Pulmonary Disease) Erum Gerardo MD as Physician (Cardiology) Subjective: Chief Complaint Patient presents with Follow-up Carotid stenosis HPI: Chaya Chan is a 74 y.o. female patient of Doug García MD seen today for follow up of carotid artery circulation. She has previously been seen with concerns of dizziness, which she thinks has improved. She does not know what causes her dizziness, it just happens. Patient denies symptoms suggestive of CVA/TIA such as weakness or loss of function of an ar m or leg, amaurosis fugax, or difficulties with their speech. She is on a daily aspirin, no t on a statin because it "messes with her." She is not a smoker. Past Medical History She has a past medical history of Coronary artery disease; Hyperlipidemia; Hypertension; Th yroid disease; [place] (myocardial infarction) ([facility]); CHF (congestive heart failure) ([facility]); Restl ess legs syndrome (RLS) (12/30/2010); Benign paroxysmal positional vertigo (03/13/2014); and C arotid artery stenosis (03/13/2014). Allergies Allergen Reactions Iodine Anaphylaxis Diltiazem Hcl Latex Lidocaine Red Dye Medications: Patient has a current medication list which includes the following prescription(s): vitamin c, aspirin, cyanocobalamin, folic acid, levothyroxine, magnesium (as oxide), meclizine, pot assium, and zinc sulfate. No specialty comments available. Past Surgical History Procedure Laterality Date Coronary angioplasty Tonsillectomy Stent placement additional vess Coronary artery bypass graft 12/24/2013 CABG X4, WITH EVH - RIGHT AND LEFT SAPHENOUS VEIN,VOGEL ; Laterality: N/A; Surgeon: Kaveh Viera MD; Location: [facility] MAIN OR Other surgical history 12/17/2013 Laterality: N/A; Surgeon: Erum Gerardo MD; Location: [facility] Family History: Her family history includes Stroke in her mother. There is no history of Heart disease. Social History: She reports that she has never smoked. She has never used smokeless tobacco. She reports th at she drinks alcohol. She reports that she does not use illicit drugs. Review of Systems: Pertinent positives included in the HPI. Objective: BP 178/100 mmHg | Pulse 83 | Ht 1.651 m (5' 5") | Wt 79.379 kg (175 lb) | BMI 29.12 kg/m2 General: Alert, cooperative, no distress. Psychiatric: Oriented to person, place, time. Neurologic: 5/5 strength throughout upper and lower extremities. Face symmetric and tongue midline. At times, seems to have some difficulties getting words out, but no slurred speech. Head and eyes: Normocephalic, without obvious abnormality, PERRL, EOM's intact. ENT: Oral and nasal mucosa pink, no obvious pathology. Neck: Symmetrical, no carotid bruits. Lungs: Clear to auscultation bilaterally, respirations unlabored. Heart: Regular rate and rhythm, no murmur. Musculoskeletal: Moves all extremities well, no gross bone or joint deformities. Extremities: No cyanosis, clubbing, or edema. Skin: Warm and dry. No rash. Vascular Right Left Carotid Brachial Radial 2 2 Femoral Graft Popliteal Posterior Tibial Dorsalis Pedis Ankle / brachial index Imaging: CAROTID DUPLEX EXAM Performed: 08/20/2015 Findings: Color-encoded duplex ultrasound was used to investigate the major arteries of the neck. All values are in cm/sec. ANTERIOR CIRCULATION Right: 1. CCA: 72/10 2. ICA: 163/38 50-69%, ICA/CCA ratio= 2.3 3. ECA: 130/4 Left: 1. CCA: 85/25 2. ICA: 159/36 50-69%, ICA/CCA ratio= 1.9 3. ECA: 167/18 POSTERIOR CIRCULATION Right: 1. Innominate: Not visualized 2. Subclavian: 97 3. Vertebral: 103/20, antegrade. Left: 1. Subclavian: 103 2. Vertebral: 66/11, antegrade. Mild to moderate calcific atherosclerotic changes are visualized at both carotid bifurcatio ns. Impression: 1. There are 50-69% stenoses in the proximal internal carotid arteries bilaterally. Mild to moderate calcific atherosclerotic changes were visualized. 2. The extracranial vertebral arteries have antegrade flow patterns. 3. Velocities from both internal carotid arteries have slightly increased in comparison to the previous exam on 02/27/2014, however, there have been no category changes. documented in this en counter Plan of Treatment + +---------+--------+ + + | Name | Type | Priori | Associated Diagnoses | Order Schedule | | | | ty | | | + +---------+--------+ + + | VAS Carotid Duplex | Imaging | Routin | Carotid stenosis, | Expected: | | Bilateral | | e | bilateral | 08/17/2016, Expires: | | | | | | 08/20/2016 | + +---------+--------+ + + documented as of this encounter Visit Diagnoses + + | Diagnosis | + + | Carotid stenosis, bilateral - Primary Occlusion and stenosis of multiple and | | bilateral precerebral arteries without mention of cerebral infarction | + + | Dizziness Dizziness and giddiness | + + documented in this encounter
--- OUTSIDE RECORDS SUMMARY | ~2019-07-30 | XMS | Encounter Summary ---
Demographics + + + | Address | [address] | | | [place] [address] | + + + | Home Phone [...] Team Providers + +------+ + | Care Extras Casting Director Name | Role | Phone | + +------+ + PCP | Unavailable | + +------+ + Encounter Details +--------+ + + + + | Date | Type | Department | Care Team | Description | +--------+ + + + + | 10/ | Orders Only | [facility] | Gerardo, | | | 2008 | | [facility] | Erum Ragland MD [address] | | | | | [address] | [address] | | | | | [address] [place] [address] | [address] | | | | | [address] | [address] | | | | | [phone] | | | +--------+ + + + [...]
--- OUTSIDE RECORDS SUMMARY | ~2019-07-30 | XMS | Encounter Summary ---
Demographics + + + | Address | [address] | | | [place] [address] | + + + | Home Phone [...] Team Providers + +------+ + | Care Marine Cargo Surveyor Name | Role | Phone | + [...] | | | | | | | [place] | | | | | | | coronary | | | | | | | artery | | | | | | | Coronary | | | | | | | atherosclero | | | | | | | sis of | | | | | | | [place] | | | | | | | coronary | | | | | | | artery | | | | | | | Procedures | | | | | | | MS CABG, | | | | | | [...] + + | 12/23/ | Hospital | [facility] | Brandon Franco, | | | 2013 | Encounter | [facility] | [place] [address] | | | | | [address] | [place] [address] | | | | | [place] | [phone] | | | | | [address] | | | | | | [phone] | | | +--------+ + + + [...] | 0 | 04/06/20 | | | [facility] | | | | 11 | 4 [...] + + + + + | [facility] | [facility], [address] | [place] [address] | [phone] | | | Shyann | | | + + + + + documented in this encounter Visit Diagnoses Not on filedocumented in this encounter"
--- OUTSIDE RECORDS SUMMARY | ~2019-07-30 | XMS | Encounter Summary ---
Demographics + + + | Address | [address] | | | [place] [address] | + + + | Home Phone [...] Team Providers + +------+ + | Care Game Developer Name | Role | Phone | + +------+ + PCP | Unavailable | + +------+ + Encounter Details +--------+ + + + + | Date | Type | Department | Care Team | Description | +--------+ + + + + | 02/01/ | Hospital | [facility] | Allen Corbett, | | | 2005 | Encounter | [facility] [address] | MD [address] | | | | | Rosio Hernandez | [place], [place] | | | | | [place], [place] | [address] | | | | | [address] | | | | | | [phone] | | | +--------+ + + + [...]
--- OUTSIDE RECORDS SUMMARY | ~2019-07-30 | XMS | Encounter Summary ---
Demographics + + + | Address | [address] | | | [place] [address] | + + + | Home Phone | | + + + | Preferred Language | Unknown | + + + | Marital Status | | + + + | Anabaptism Affiliation | 1001 | + + + | Race | Unknown | + + + | Ethnic Group | Unknown | + + + Author + + + | Author | [facility] | | | and [place] | + + + | Organization | [facility] | | | and [...] Team Providers + +------+ + | Care Last Chalker Name | Role | Phone | + [...] Radiology | Diagnoses | Ricky, | [facility] | | | Services | | Benign | MD Doug | [address] | | | Required | | essential | [address] | | | | | hypertension | [place] | [place], [place] | | | | | Bilateral | Ave. | [address] | | | | | carotid | [place], [place] | Phone: | | | | | artery | [address] | [phone] | | | | | stenosis | Phone: | Fax: | | | | | Transient | [phone] | [phone] | | | | | cerebral | Fax: | | | | | | ischemia, | [phone] | | | | | | unspecified | | | | | | | type | | | | | | | Procedures | | | | | | | MRI Brain wo | | | | | | | Contrast | | | | | | | MRI BRAIN WO | | | | | | | CONTRAST | | | +--------+ + + + + + Reason for Visit Diagnostic/Screening (Routine) +--------+ + + + + + | Status | Reason | Specialty | Diagnoses / | Referred By | Referred To | | | | | Procedures | Contact | Contact | +--------+ + + + + + | Closed | Specialty | Radiology | Diagnoses | Ricky, | [facility] | | | Services | | Benign | MD Doug | [address] | | | Required | | essential | [address] | | | | | hypertension | [place] | [place], [place] | | | | | Bilateral | Ave. | [address] | | | | | carotid | [place], [place] | Phone: | | | | | artery | [address] | [phone] | | | | | stenosis | Phone: | Fax: | | | | | Transient | [phone] | [phone] | | | | | cerebral | Fax: | | | | | | ischemia, | [phone] | | | | | | unspecified | | | | | | | type | | | | | | | Procedures | | | | | | | MRI Brain wo | | | | | | | Contrast | | | | | | | MRI BRAIN WO | | | | | | | CONTRAST | | | +--------+ + + + + + Encounter Details +--------+ + + + + | Date | Type | Department | Care Team | Description | +--------+ + + + + | 07/18/ | Hospital | [facility] | Doug García MD | Benign essential | | 2018 | Encounter | [facility] | [address] | hypertension; | | | | [address] | [place] [address] | Bilateral carotid | | | | [place], [place] | [phone] | artery stenosis; | | | | [address] | | Transient cerebral | | | | [phone] | | ischemia, | | | | | | unspecified type | +--------+ + + + + [...] + +--------+ + + + | MRI BRAIN WO | Routin | 07/18/2017 | Benign essential | Results for this | | CONTRAST | e | 9:32 AM | hypertension | procedure are in the | | | | PST | Bilateral carotid | results section. | | | | | artery stenosis | | | | | | Transient cerebral | | | | | | ischemia, | | | | | | unspecified type | | + +--------+ + + + documented in this encounter Results MRI Brain wo Contrast (07/18/2017 9:32 AM PST) + + | Specimen | + + | | + + + + + | Narrative | Performed At | + + + | MRI BRAIN WITHOUT CONTRAST CLINICAL INFORMATION: At | [facility] | | cerebrovascular accident risk, headaches, left sided facial droop and | | | occasional sharp pain on the lateral aspect of her head. | | | COMPARISON: CT head, 12/11/2011. PROCEDURE: Sagittal T1, axial | | | FLAIR, axial T2, axial T1, axial gradient susceptibility, coronal T2, | | | axial DWI. FINDINGS: Brain: No intracranial hemorrhage. No | | | midline shift or pathologic mass effect. There is a punctate focus | | | of possibly restricted diffusion in the right parietal paramidline | | | subcortical white matter. This may represent a very small acute | | | infarct. Patchy left frontal parietal subcortical restricted | | | diffusion may be present. These may represent acute or subacute | | | infarcts. There is moderate diffuse cerebral atrophy. There is | | | marked chronic microvascular disease. 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 moderate cerebellar atrophy. | | | No hemorrhage or mass lesion identified. Moderate left hippocampal | | | atrophy. Ventricles and extra-axial fluid spaces: Normal. | | | Sella, suprasellar cistern, and orbits: Normal. Major vascular | | | flow voids: Possible occlusion of the left cervical vertebral artery. | | | Markedly diminished flow within the left intracranial vertebral | | | artery. Calvarium and extracranial soft tissues: Normal. | | | Paranasal sinuses and mastoid air cells: Bilateral mastoid fluid | | | signal intensity, greater on the left. Left mastoid hypoplasia. | | | IMPRESSION: 1. Possible small right parietal subcortical and left | | | frontal parietal subcortical acute infarcts. 2. Moderate diffuse | | | cerebral atrophy and marked chronic microvascular disease. 3. Old | | | left temporal occipital infarct. 4. Moderate left hippocampal | | | atrophy. Signed by: MD Pascual Bill | | + + + + + | Procedure Note | + + | Mauricio, Rad Results In - 07/18/2017 3:16 PM PST | | MRI BRAIN WITHOUT CONTRAST | | | | CLINICAL INFORMATION: | | At cerebrovascular accident risk, headaches, left sided facial droop | | and occasional sharp pain on the lateral aspect of her head. | | | | COMPARISON: | | CT head, 12/11/2011. | | | | PROCEDURE: | | Sagittal T1, axial FLAIR, axial T2, axial T1, axial gradient | | susceptibility, coronal T2, axial DWI. | | | | FINDINGS: | | Brain: No intracranial hemorrhage. No midline shift or pathologic | | mass effect. There is a punctate focus of possibly restricted | | diffusion in the right parietal paramidline subcortical white matter. | | This may represent a very small acute infarct. Patchy left frontal | | parietal subcortical restricted diffusion may be present. These may | | represent acute or subacute infarcts. There is moderate diffuse | | cerebral atrophy. There is marked chronic microvascular disease. 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 | | moderate cerebellar atrophy. | | | | No hemorrhage or mass lesion identified. | | | | Moderate left hippocampal atrophy. | | | | Ventricles and extra-axial fluid spaces: Normal. | | | | Sella, suprasellar cistern, and orbits: Normal. | | | | Major vascular flow voids: Possible occlusion of the left cervical | | vertebral artery. Markedly diminished flow within the left | | intracranial vertebral artery. | | | | Calvarium and extracranial soft tissues: Normal. | | | | Paranasal sinuses and mastoid air cells: Bilateral mastoid fluid | | signal intensity, greater on the left. Left mastoid hypoplasia. | | | | IMPRESSION: | | 1. Possible small right parietal subcortical and left frontal | | parietal subcortical acute infarcts. | | 2. Moderate diffuse cerebral atrophy and marked chronic microvascular | | disease. | | 3. 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 | | 4. Moderate left hippocampal atrophy. | | | | | | | | Signed by: MD Pascual Bill | + + + +---------+ + + [...] of cerebral infarction | + + | Transient cerebral ischemia, unspecified type | + + documented in this encounter"
--- OUTSIDE RECORDS SUMMARY | ~2019-07-30 | XMS | Encounter Summary ---
Demographics + + + | Address | [address] | | | [place] [address] | + + + | Home Phone | | + + + | Preferred Language | Unknown | + + + | Marital Status | | + + + | Protestant Affiliation | 1001 | + + + [...] Team Providers + +------+ + | Care Bootmaker Hand Name | Role | Phone | + +------+ + | Doug García MD | PCP | | + +------+ + Encounter Details +--------+ + + + + | Date | Type | Department | Care Team | Description | +--------+ + + + + | 01/30/ | Hospital | [facility] | Doug García MD | | | 2014 | Encounter | [facility] | [address] | | | | | [facility] | [place] [address] | | | | | [address] | [phone] | | | | | [place], [place] | | | | | | [address] | | | | | | [phone] | | | +--------+ + + + [...] + + | [facility] | [facility], [address] | [place] [address] | [phone] | | | Shyann | | | + + + + + documented in this encounter Visit Diagnoses Not on filedocumented in this encounter"
--- OUTSIDE RECORDS SUMMARY | ~2019-07-30 | XMS | Encounter Summary ---
Demographics + + + | Address | [address] | | | [place] [address] | + + + | Home Phone | | + + + | Preferred Language | Unknown | + + + | Marital Status | | + + + | Church Affiliation | 1001 | + + + | Race | Unknown | + + + | Ethnic Group | Unknown | + + + Author + + + | Author | [facility] | | | and [place] | + + + | Organization | [facility] | | | and [...] Providers + +------+ + | Care Manager Food Beverage Name | Role | Phone | + +------+ + PCP | Unavailable | + +------+ + Encounter Details +--------+ + + + + | Date | Type | Department | Care Team | Description | +--------+ + + + + | 05/14/ | Abstract | [facility] | No, Unknownpcp . | | | 2012 | | Conversion Location | | | | | | | (Fax) | | +--------+ + + + + [...]
--- OUTSIDE RECORDS SUMMARY | ~2019-07-30 | XMS | Encounter Summary ---
Demographics + + + | Address | [address] | | | [place] [address] | + + + | Home Phone [...] Team Providers + +------+ + | Care Early Childhood Name | Role | Phone | + [...] | | essential | [address] | | | | | hypertension | [place] | [place], [place] | | | | | Bilateral | Ave. | [address] | | | | | carotid | [place], [place] | Phone: | | | | | artery | [address] | [phone] | | | | | stenosis | Phone: | Fax: | | | | | Transient | [phone] | [phone] | | | | | cerebral | Fax: | | | | | | ischemia, | [phone] | | | | | | unspecified [...] | +--------+ + + + + | 07/11/ | Orders Only | [facility] | Doug García MD | Benign essential | | 2017 | | [facility] | [address] | hypertension | | | | Internal Medicine | [place] [address] | (Primary Dx); | | | | [address] | [phone] | Paroxysmal atrial | | | | [place], [place] | | fibrillation (HCC); | | | | [address] | | Bilateral carotid | | | | [phone] | | artery stenosis; | | | | | | Transient cerebral | | | | | | ischemia, | | | | | | unspecified type; | | | | | | Acquired | | | | | | hypothyroidism; | | | | | | Other hyperlipidemia | +--------+ + + + + Social [...] documented as of this encounter Progress Notes Doug García MD - 07/11/2017 6:09 AM PSTFormatting of this note might be different from t eleonora mchugh. [facility] PROVIDER NOTE Patient Name: Chaya Chan 76 y.o. Date of : 1940 MR Number: [id number] Datet: 07/11/2017 Patient's daughter, Kimberly Loyn, who is a nurse, communicated with me regarding patient. She has concerns about her mother. Apparently, the patient has been experiencing severe h eadaches recently and on at least one occasion, Ms. Lyon has noted a slight left facial d cydney on Chaya. She also has had episodes of dizziness especially after she takes either he r hydrochlorothiazide in the morning or her metoprolol in the evening. The patient does hav e chronic intermittent dizziness which we have attributed to BPPV in the past. Current Medications: Medication Sig Ascorbic Acid (VITAMIN [...] sun velvet as needed for Chest pain. potassium 99 mg tablet Take 99 mg by mouth Daily. thyroid (NATURE-THROID, WESTHROID) 325 MG TABS Take 32.5 mg by mouth Daily. zinc sulfate 220 mg capsule Take 220 mg by mouth 2 times daily. Assessment and Plan: The patient does have risk factors for CVA including hypertension, coronary artery disease, carotid artery disease, history of paroxysmal atrial fibrillation. Her symptoms are sugges tive of CVA. Her dizziness episodes may be due to transient hypotension after she takes an antihypertens dalton medication. PLAN: Order MRI of the brain. Also screening labs including CBC, comprehensive metabolic panel. The patient is already on aspirin and beta candice (metoprolol). Electronically signed by: Doug García 07/11/2017 6[facility] MD at 6:47 AM PSTdocumented in this encounter Plan of Treatment Not on filedocumented as of this encounter Results TSH, Reflex Free T4 (08/07/2017 7:55 AM PST) + +-------+ + + + | Component | Value | Ref Range | Performed | Pathologist | | | | | At | Signature | + +-------+ + + + | TSH | 2.514 | 0.300 - 4.000 | [facility] | | | | | uIU/mL | [facility] | | | | | | [facility] [...] + + | [facility] | [address] | [place] [address] | | | [facility] | | | | | LABORATORY | | | | + + + + + Lipid Panel (08/07/2017 7:55 AM PST) + + + + + + | Component | Value | Ref Range | Performed | Pathologist | | | | | At | Signature | + + + + + + | Cholesterol | 200 (H) | <200 mg/dL | [facility] | | | | | [facility] | | | | [facility] | | | | | | [facility] | | + + + + + + | Triglycerid | 145 | <200 mg/dL | [facility] | | | es | | | [facility] | | | | | | [facility] | | | | | | [facility]ORY | | + + + + + + | HDL | 63 | >35 mg/dL | [facility] | | | | | | [facility] | | [facility] | | [facility] | | | | | | [facility] | | + + + + + + | LDL, | 108 (H) | <100 mg/dL | [facility] | | | Calculated | | | [facility] | | | | | [facility] | | | | | | [facility] | | + + + + + + | Chol/HDL | 3.2 (L)Comment: | 3.7 - 6.7 Ratio | [...] + + | [facility] | [address] | [place] [address] | | | [facility] | | | | | LABORATORY | | | | + + + + + Comprehensive Metabolic Panel (08/07/2017 7:55 AM PST) + + + + + [...] + + + + | K | 3.5 | 3.5 - 5.1 | [facility] | [...] + + + + | BUN | 14 | 8 - 21 mg/dL | [facility] | | | | | | [facility] | [facility] | | | | | | [facility] | | + + + + + + | Creatinine | 1.11 | 0.5 - 1.2 mg/dL | [facility] | | | | | | [facility] | | [facility] | | [facility] | | | | | | [facility] | | + + + + + + | Calcium | 9.2 | 8.5 - 10.2 | [facility] | | | | | mg/dL | [facility] | | [facility] | | [facility] | | | | | | [facility] | | + + + + + + | Total | 8.4 (H) | 6.3 - 8.0 g/dL | [...] + + + + | Alkaline | 72 | 38 - 110 U/L | [facility] [...] + | Anion Gap | 11 | 10 - 20 mmol/L | [facility] | | | | | | [facility] | [facility] | | | | | | [facility] | | + + + + + + | Estimated | 51 (L)Comment: GFR <60: | >60 | [facility] [...] + + + + + | [facility] | [address] | [place] [address] | | | [facility] | | | | | LABORATORY | | | | + + + + + CBC with Differential (08/07/2017 7:55 AM PST) + + + + + + | Component | Value | Ref Range | Performed | Pathologist | | | | | At | Signature | + + + + + + | WBC | 4.6 | 3.8 - 11.0 K/uL | [facility] | | | | | | [facility] | [facility] | | | | | | [facility] | | + + + + + + | RBC | 4.06 | 3.70 - 5.10 | [facility] | [...] + + + + | Hematocrit | 37.0 | 34.0 - 46.0 % | [facility] | | | | | | [facility] | | [facility] | | [facility] | | | | | | [facility]ATORY | | + + + + + + | MCV | 91.2 | 80.0 - 100.0 fL | [facility] [...] + + + + | MCHC | 34.2 | 32.0 - 35.5 | [facility] | [...] + + + + | Platelet | 200 | 150 - 400 K/uL | [facility] [...] + + + + | % | 69.6 | 40.0 - 75.0 % | [facility] | | | Neutrophils | | | [facility] | | | | | [facility] | [facility] | | | | | | [facility]ATORY | | + + + + + + | % | 19.7 | 15.0 - 48.0 % | [facility] | | | Lymphocytes | | | [facility] | | | | | | [facility] | | [facility] | | | | | | [facility]ATORY | | + + + + + + | % Monocytes | 7.2 | 0.0 - 12.0 % | [facility] | | | | | | [facility] | | | | | [facility] | | [facility] | | | | | | [facility]ATORY | | + + + + + + | % | 2.7 | 0.0 - 7.0 % | [facility] [...] + + + + | Absolute | 3.20 | 1.90 - 7.40 | [facility] | [...] | | Basophils | | K/uL | [facility] | | | | | | [facility] [...] + | [facility] | [address] [facility] [facility] [address] | [place] [address] | | | [facility] | | | | | LABORATORY | | | | + + + + + MRI Brain wo Contrast (07/18/2017 9:32 AM [...] Essential hypertension, benign | + + | Paroxysmal atrial fibrillation (HCC) Atrial fibrillation | + + | Bilateral carotid artery stenosis Occlusion and stenosis of multiple and bilateral | | precerebral arteries without mention of cerebral infarction | + + | Transient cerebral ischemia, unspecified type | + + | Acquired hypothyroidism Unspecified hypothyroidism | + + | Other hyperlipidemia | + + documented in this encounter"
--- OUTSIDE RECORDS SUMMARY | ~2019-07-30 | XMS | Encounter Summary ---
Demographics + + + | Address | [address] | | | [place] [address] | + + + | Home Phone [...] Team Providers + +------+ + | Care Cable Assembler And Swager Name | Role | Phone | + +------+ + | Doug García MD | PCP | | + +------+ + Reason for Visit + + + | Reason | Comments | + + + | Carotid Artery | | | Disease | | + + + Surgical (Routine) +--------+ [...] | | artery | [address] | [place] | | | | | stenosis, | [place] | [facility] [address] | | | | bilateral | [address] | | | | | Procedures | [place], [place] | [address], | | | | | A-carotid | [address] | [place] | | | | | stenosis | Phone: | [address] | | | | | | [phone] | Phone: | | | | | | Fax: | [phone] | | | | | | [phone] | Fax: | | | | | | | [phone] | +--------+ + + + + + Encounter Details +--------+---------+ + + + | Date | Type | Department | Care Team | Description | +--------+---------+ + + + | 04/03/ | Office | [place] | Colby Guerrero, | Carotid artery | | 2013 | Visit | [facility] [place] | [place] [address] | stenosis, bilateral | | | | [place] [address] | [address] [place], (Primary Dx); | | | | [address], [place] | [place] [address] | Dizziness of unknown | | | | [address] | [phone] | cause; Coronary | | | | [phone] | | artery disease; | | | | | | Paroxysmal [...] + + + | Blood Pressure | 177/96 | 04/03/2014 9:09 AM | | | | | PDT | | + + + + + | Pulse | 71 | 04/03/2014 9:09 AM | | | | | PDT [...] Weight | 73.5 kg (162 lb) | 04/03/2014 9:07 AM | | | | | PDT | | + + + + + | Height | 165.1 cm (5' 5") | 04/03/2014 9:07 AM | | | | | PDT | | + + + + + | Body Mass Index | 26.96 | 04/03/2014 9:07 AM | | | | | PDT [...] | Diagnosis | + + | Carotid artery stenosis, bilateral - Primary | + + | Dizziness of unknown cause | + + | Coronary artery disease Coronary atherosclerosis of unspecified type of vessel, | | afognak or graft | + + | Paroxysmal atrial fibrillation (HCC) Atrial fibrillation | + + documented in this encounter
--- OUTSIDE RECORDS SUMMARY | ~2019-07-30 | XMS | Encounter Summary ---
Demographics + + + | Address | [address] | | | [place] [address] | + + + | Home Phone | | + + + | Preferred Language | Unknown | + + + | Marital Status | | + + + | Holiness Affiliation | 1001 | + + + [...] Providers + +------+ + | Care Manager Program Management Name | Role | Phone | [...] + + | Closed | Specialty | Dermatology | Diagnoses | Coker, | VANESSA | | | Services | | Rash | Charito | DERMATOLOGY | | | Required | | Procedures | Diane, LOOM OPERATOR | AND SKIN | | | | | Eval & Treat | 1505 | [facility] | | | | | - Dr. Belle | YAMILE GRULLON | [address] | | | | [address] | [place], [place] | [address] | | | | | | [address] | [address] | | | | | | Phone: | RUDI | | | | | | [phone] | [place], [place] | | | | | | Fax: | [address] | | | | | | [phone] | Phone: | | | | | | | [phone] | | | | | | | Fax: | | | | | | | [phone] | +--------+ + + + + + Reason for Visit + + + | Reason | Comments | + + + | Follow-up | | + + + Encounter Details +--------+---------+ + + + | Date | Type | Department | Care Team | Description | +--------+---------+ + + + | 12/11/ | Office | Alejandra HOLLINS | Charito Coker | HTN (hypertension) | | 2013 | Visit | [facility] | ABBY Contreras [address] | (Primary Dx); Rash; | | | | Internal Medicine | YAMILE GRULLON | Nausea; CORONARY | | | | [address] [facility] | [place] [address] | ARTERY DISEASE; | | | | [place], [place] | [phone] | CEREBRAL ISCHEMIA; | | | | [address] | | CARDIOMYOPATHY | | | | [phone] | | DILATED ISCHEMIC; | | | | | | Hypertension | +--------+---------+ + + + Social History [...] + + + | Blood Pressure | 190/100 | 12/11/2013 9:17 AM | | | | | PDT | | + + + + + | Pulse | 80 | 12/11/2013 9:17 AM | | | | | PDT | | + + + + + | Temperature | - | - | | + + + + + | Respiratory Rate | 16 | 12/11/2013 9:17 AM | | | | | PDT | | + + + + + | Oxygen Saturation | - | - | | + + + + + | Inhaled Oxygen | - | - | | | Concentration | | | | + + + + + | Weight | 77.6 kg (171 lb) | 12/11/2013 9:17 AM | | | | | PDT | | + + + + + | Height | 165.1 cm (5' 5") | 12/11/2013 9:17 AM | | | | | PDT | | + + + + + | Body Mass Index | 28.46 | 12/11/2013 9:17 AM | | | | | PDT | | + + + + + documented in this encounter Progress Notes Charito Coker, ABBY - 12/18/2013 7:11 AM PDTFormatting of this note might be diffe rent from the original. Subjective: Chaya is a pleasant 73-year-old female patient who presents to the clinic for hypertension and a rash. The rash is generalized on her lower extremities below the knee is recurrent a nd she is treated it with a hydrocortisone cream in the past. She is requesting a referral to dermatology. Of concern today is her blood pressure which is 190/100 at at bed. She has recently been t raveling through [place] and [place] assisting her son on a height of the [facility]. She reports she has been taking her medications she takes metoprolol 25 mg once daily a nd lisinopril 10 mg once daily. Patient's Medications New Prescriptions LISINOPRIL (PRINIVIL, ZESTRIL) 10 MG TABLET Take 1 tablet by mouth Daily. METOPROLOL TARTRATE (LOPRESSOR) 25 MG TABLET Take 1 tablet by mouth 2 times daily. Previous Medications ASCORBIC ACID (CVS VITAMIN C) 1000 MG TABLET Take 1,000 mg by mouth Daily. ASPIRIN 81 MG EC TABLET Take 81 mg by mouth Daily. ATORVASTATIN (LIPITOR) 80 MG TABLET Take 1 tablet by mouth nightly. B [id number] ( VITAMIN B 50/B-COMPLEX) TABS once a day CLOPIDOGREL (PLAVIX) 75 MG TABLET Take 75 mg by mouth Daily. GARLIC CAPS; once a day MAGNESIUM (GNP MAGNESIUM) 250 MG TABLET Take 250 mg by mouth 2 times daily. NITROGLYCERIN (NITROSTAT) 0.4 MG SL TABLET 0.4 mg as needed for chest pain, may repeat every 15 mins x 2 PANTOPRAZOLE (PROTONIX) 40 MG TABLET Take 40 mg by mouth once. RED YEAST RICE 600 MG CAPS Take 600 mg by mouth 3 times daily. Modified Medications No medications on file Discontinued Medications LISINOPRIL (PRINIVIL, ZESTRIL) 5 MG TABLET Take 1 tablet by mouth Daily. METOPROLOL TARTRATE (LOPRESSOR) 25 MG TABLET Take 25 mg by mouth Daily. Allergies Allergen Reactions Iodine Anaphylaxis Diltiazem Hcl Iodinated Diagnostic Agents Latex Lidocaine Review of Systems Constitutional: Negative for fever and chills. Respiratory: Negative for cough and shortness of breath. Cardiovascular: Negative for chest pain and palpitations. Gastrointestinal: Negative for nausea and vomiting. Musculoskeletal: Negative for back pain. Skin: Negative for rash. Objective: BP 190/100 | Pulse 80 | Resp 16 | Ht 1.651 m (5' 5") | Wt 77.565 kg (171 lb) | BMI 28.46 kg /m2 Constitutional: Appears well-developed and well-nourished. Neck: No thyromegaly present. No masses. Pulmonary/Chest: Effort normal and breath sounds normal. Cardiovascular: RRR, normal heart sounds and intact distal pulses. Abdominal: Soft, non-tender, without masses. No hepatosplenomegaly. Assessment and Plan: 1. HTN (hypertension) - metoprolol tartrate (LOPRESSOR) 25 mg tablet; Take 1 tablet by mouth 2 times daily. Dis pense: 60 tablet; Refill: 3 - lisinopril (PRINIVIL, ZESTRIL) 10 mg tablet; Take 1 tablet by mouth Daily. Dispense: 30 tablet; Refill: 0 Increase metoprolol to 25 mg twice daily increase lisinopril to 10 mg twice daily 2. Rash - [facility] - AMB Referral 3. Nausea In the morning after taking meds. Have asked her to try eating breakfast before taking me dications 4. CORONARY ARTERY DISEASE 5. CEREBRAL ISCHEMIA 6. CARDIOMYOPATHY DILATED ISCHEMIC documented i n this encounter Plan of Treatment + + +--------+ + + | Name | Type | Priori | Associated Diagnoses | Order Schedule | | | | ty | | | + + +--------+ + + | [facility] | Outpatient | Routin | Rash | Ordered: 12/11/2013 | | [facility] | Referral | e | | | | [facility] - [facility]B | | | | | | Referral | | | | | + + +--------+ + + documented as of this encounter Visit Diagnoses + + | Diagnosis | + + | HTN (hypertension) - Primary Unspecified essential hypertension | + + | Rash Rash and other nonspecific skin eruption | + + | Nausea Nausea alone | + + | CORONARY ARTERY DISEASE Coronary atherosclerosis of unspecified type of vessel, | | platinum or graft | + + | CEREBRAL ISCHEMIA Other generalized ischemic cerebrovascular disease | + + | CARDIOMYOPATHY DILATED ISCHEMIC Other specified forms of chronic ischemic heart | | disease | + + | Hypertension Unspecified essential hypertension | + + documented in this encounter
--- OUTSIDE RECORDS SUMMARY | ~2019-07-30 | XMS | Encounter Summary ---
Demographics + + + | Address | [address] | | | [place] [address] | + + + | Home Phone | | + + + | Preferred Language | Unknown | + + + | Marital Status | | + + + | Sikh Affiliation | 1001 | + + + | Race | Unknown | + + + | Ethnic Group | Unknown | + + + Author + + + | Author | [facility] | | | and [place] | + + + | Organization | [facility] | | | [...] Providers + +------+ + | Care Chief Architect Name | Role | Phone | + [...] Description | +--------+--------+ + + + | 06/02/ | Refill | Alejandra HOLLINS | Doug García MD | Medication Refill | | 2015 | | [facility] | [address] | | | | | Internal Medicine | [place] [address] | | | | | [address] [facility] | [phone] | | | | | [place], [place] | | | | | | [address] | | | | | | [phone] | | | +--------+--------+ + + + [...]
--- OUTSIDE RECORDS SUMMARY | ~2019-07-30 | XMS | Encounter Summary ---
Demographics + + + | Address | [address] | | | [place] [address] | + + + | Home Phone | | + + + | Preferred Language | Unknown | + + + | Marital Status | | + + + | Mormon Affiliation | 1001 | + + + | Race | Unknown | + + + | Ethnic Group | Unknown | + + + Author + + + | Author | [facility] | | | and [place] | + + + | Organization | [facility] | | | [...] Team Providers + +------+ + | Care Regional Sales Representative Name | Role | Phone | [...] | Specialty | Radiology | Diagnoses | Nedra, | [facility] Echo | | | Services | | Coronary | MD Pepper | [address] | | | Required | | artery | [address] | | | | | disease due | [address] | [place], [place] | | | | | to calcified | Ave[address] | [address] | | | | | coronary | [place], [place] | Phone: | | | | | lesion | [address] | [phone] | | | | | Chronic | Phone: | Fax: | | | | | diastolic | [phone] | [phone] | | | | | CHF | Fax: | | | | | | (congestive | [phone] | | | | | | heart [...] | Specialty | Radiology | Diagnoses | Nedra, | [facility] Echo | | | Services | | Coronary | MD Pepper | [address] | | | Required | | artery | [address] | | | | | disease due | [address] | [place], [place] | | | | | to calcified | Ave[address] | [address] | | | | | coronary | [place], [place] | Phone: | | | | | lesion | [address] | [phone] | | | | | Chronic | Phone: | Fax: | | | | | diastolic | [phone] | [phone] | | | | | CHF | Fax: | | | | | | (congestive | [phone] | | | | | | heart [...] + + | 12/05/ | Hospital | [facility] | Pepper Sneed MD | Coronary artery | | 2017 | Encounter | [facility] ECHO | [address] | disease due to | | | | [address] | [place] [address] | calcified coronary | | | | [place], [place] | [phone] | lesion; Chronic | | | | [address] | | diastolic CHF | | | | [phone] | | (congestive heart | | | | | | failure), NYHA class | | | | | | 2 (HCC) | +--------+ + + + [...] + | ECHO COMPLETE | Routin | 12/05/2016 | Coronary artery | Results for this | | | e | 10:32 AM | disease due to | procedure are in the | | | | PDT | calcified coronary | results section. | | | | | lesion Chronic | | | | | | diastolic CHF | | | | | | (congestive heart | | | | | | failure), NYHA class | | | | | | 2 (HCC) | | + +--------+ + + + | LVEF VALUE | Routin | 12/05/2016 | | Results for this | | | e | | | procedure are in the | | | | | | results section. | + +--------+ + + + documented in this encounter Results ECHO Complete (12/05/2016 10:32 AM PDT) + + | Specimen | + + | | + + + +----- ---------+ | Narrative | Perf ormed At | + +----- ---------+ | | | | | | | Adult Echo | | | Report Name: | | | MARKIE CHAN Study Date: 12/05/2016MRN: | | | [id number] [facility] ECHODOB: | | | 1940 Age: 76 yrs | | | Gender: FemaleHeight: 65 in Weight: 176 | | | lb BSA: 1.9 [id number] For Study: CHF; CAD | | | [...] V2 VTI: 44.2 cm | | | SANDRIEN(I,D): 1.9 | | | cm2 | | [...] 12/05/2016 04:20 PMOrdering | | | Physician: Felicia SNEED Physician: NEDRA, | | | RAMONEchocardiographer: Delbert Avelar [id number]: | | |LA dimension: 4.6 cm | [...] | |Referring Physician: PEPPER SNEED | | |Appraisal Manager: Delbert Soto | | |[id number]: | | | | | + +----- ---------+ + + | Procedure Note | + + | Carlos Martínez Results In - 12/05/2016 4:22 PM PDT | | Adult Echo | | Report | | | | Name: MARKIE CHAN Study Date: 12/05/2016 | | Patient Location: [facility] ECHO | | : 1940 Age: 76 [...] | Referring Physician: PEPPER SNEED | | Appraisal Manager: Delbert Soto | | [id number]: | + + LVEF VALUE (12/05/2016) + +-------+ + + + | Component | Value | Ref Range | Performed | Pathologist | | | | | At | Signature | + +-------+ + + + | LVEF-TTE | 63 | | | | | TRANSTHORAC | | | | | | IC ECHO | | | | | + +-------+ + + + documented in this encounter Visit Diagnoses + + | Diagnosis | + + | Coronary artery disease due to calcified coronary lesion | + + | Chronic diastolic CHF (congestive heart failure), NYHA class 2 (HCC) | + + documented in this encounter"
--- OUTSIDE RECORDS SUMMARY | ~2019-07-30 | XMS | Encounter Summary ---
Demographics + + + | Address | [address] | | | [place] [address] | + + + | Home Phone [...] Team Providers + +------+ + | Care Wage And Hour Investigator Name | Role | Phone | + +------+ + PCP | Unavailable | + +------+ + Encounter Details +--------+ + + + + | Date | Type | Department | Care Team | Description | +--------+ + + + + | 03/31/ | Hospital | [facility] | Ivon Shelton | | | 2011 - | Encounter | [facility] | MD [address] | | | | | CARDIAC TRANSPLANT | [address] | | | 04/02/ | | [address] | [place] [address] | | | 2010 | | [place], [place] | [phone] | | | | | [address] | | | | | | [phone] | | | +--------+ + + + [...] documented as of this encounter Discharge Summaries Tonia Kenney ARNP - 05/21/2013 11:43 PM PST PATIENT NAME: MARKIE CHAN Sex/Age: F / 70Y : 1940 ADMISSION DATE: 03/31/2011 DISCHARGE DATE: 04/02/2011 [id number] / [id number] ADMITTING DIAGNOSES: 1. Non-ST elevated myocardial infarction. 2. Atherosclerotic heart disease. a. History of a vkg-TM-rtthjdlg myocardial infarction in 2004 and 2008. b. Status post percutaneous transluminal coronary angioplasty stent to the lef t circumflex in 2004. c. History of an occlusion of the distal posterior lateral branch 1999. d. Normal ejection fraction. 3. Medication noncompliance. 4. Hypertension poorly controlled. 5. Obstructive sleep apnea. 6. Hyperlipidemia. 7. Hypothyroidism. 8. Arthritis. DISCHARGE DIAGNOSES: 1. Atherosclerotic heart disease. a. Angina, functional class I. b. Status post non-ST elevated myocardial infarction. c. Status post percutaneous transluminal coronary angioplasty/stenting x3 to t he left circumflex after coronary thrombectomy by Dr. Ivon Shelton. d. History of percutaneous transluminal coronary angioplasty stent to the circ umflex. e. History of a 100% occlusion of the posterior lateral branch 1999. f. Normal ejection fraction. 2. Hypertension, currently poorly controlled secondary to medication noncompliance. 3. Obstructive sleep apnea. 4. Hyperlipidemia. 5. Hypothyroidism. 6. Arthritis. 7. Medication noncompliance. DIAGNOSTIC PROCEDURES AND FINDINGS: Insertion of temporary transvenous pacemaker, left hea rt catheterization injection for single-plane left ventriculography, and selective coronary angiography. RADIOLOGIC INTERPRETATION AND SUPERVISION: Coronary thrombectomy, MARKIE CHAN ADM:03/31/11 [id number] 04/02/11 DIS IN DISCHARGE SUMMARY [id number] [facility] MD Ashely Palomares THIS REPORT IS CONFIDENTIAL AND NOT TO BE RELEASED WITHOUT PROPER AUTHORIZATION. [facility] angioplasty x3 of the left circumflex and femoral angiography by Dr. Ivon Shelton 03/31. HOSPITAL COURSE: The patient is a 70-year-old female with known coronary artery disease. S he has a history of a xva-QH-itnmlvon myocardial infarction 2004 and in 2008. In 2004, she underwent stenting of the left circumflex. Catheterization in July 2008 demonstrated the stent was patent; however, she had distal posterior lateral branch occlusion felt to be t he culprit for myocardial infarction. She does have significant diffuse disease, high-grade disease of the small first diagonal branch, moderate diffuse of mid LAD and severe disease of the distal LAD occlusion of the apical left anterior descending and mild disease of the proximal right coronary artery. She does have normal ejection fraction. She has been medi sammy noncompliant in the past. Apparently on 03/31/2011, she presented to the emergency room after having episodes of javi st discomfort during the night lasting about an hour. It recurred at 4:00 a.m. this morning with nausea and diaphoresis. Her blood pressure was 200/103 on admission. Her EKG showed c hanges in the lateral leads and her second set of enzymes returned positive with a troponin of 0.72 and an MB 11.5. She was transferred to [facility] for further ev aluation and treatment. She underwent angioplasty and stent placement x3 to her circumflex. She was kept an additional 48 hours for observation for arrhythmias. She did not have furt her arrhythmias and was discharged home today 04/02/2011 in stable condition. LABS: Hemoglobin 11.1, hematocrit 33.6, platelets 145,000 and white blood cells 8.1. UA wa s negative. Sodium is 131, potassium 4.0, creatinine 0.87, BUN 16, glucose 162, ALT 34, and AST 14. Her CK peak 1398, MB peak of 142.4 and troponin I peak of 26.2. Cholesterol is 191 , triglycerides 75, HDL 66, and LDL of 110. TSH is 0.93. DISPOSITION: The patient is being discharged home in stable condition on 04/02/2011. The b lood pressure was 136/70, pulse 66, respirations 16, temperature maximum 97.698% on room ai r. Lungs: Clear to auscultation bibasilarly. Cardiovascular: Regular rate and rhythm. S1, S 2. No murmur, gallop, or rub appreciated. Abdomen: Soft, nontender. Bowel tones present in all four quadrants. Extremities: Negative edema, 2+/4+ lower extremity pulses, equal bilat erally. The incision site in the right groin is clean, dry, and intact without femoral brui t. FOLLOWUP PLAN: The patient is scheduled to follow up with Dr. Shelton 04/29/2011 at 3:00 p.m. at the [facility] office, [address]. MARKIE CHAN ADM:03/31/11 [id number] 04/02/11 DIS IN DISCHARGE SUMMARY [id number] [facility] MD Ashely Palomares THIS REPORT IS CONFIDENTIAL AND NOT TO BE RELEASED WITHOUT PROPER AUTHORIZATION. [facility] Follow-up with Dr. García in 1 to 2 weeks. DIET: Low cholesterol, low saturated fat. ACTIVITY: No heavy or strenuous activity for two weeks. The patient has been referred to [facility] cardiac rehabilitation. DISCHARGE MEDICATIONS: 1. Zinc sulfate 320 mg three times a day. 2. Vitamin D 50 complex one tablet daily. 3. Zocor 20 mg at bedtime. 4. Nitroglycerin 0.4 mg sublingual taken as directed p.r.n. for chest pain. 5. Metoprolol 12.5 mg p.o. b.i.d. 6. Lisinopril 10 mg p.o. daily. 7. Synthroid micrograms p.o. daily. 8. Plavix 75 mg p.o. daily. 9. Aspirin for at least one month, ideally for one year. Aspirin 325 mg p.o. daily. 10. Vitamin C 500 mg every morning 1000 mg p.o. daily. 11. Red yeast rice 600 mg daily. 12. Garlic one capsule daily. 13. Magnesium 100 mg daily. 14. Nitroglycerin 0.4 mg sublingual taken as directed p.r.n. for chest pain. ABBY Coley MD P P ELLEN/klk #[id number] cc: MD Doug Juan MD Kimberly A. Nollette, CAB STARTER Electronically Signed 04/05/11 1522 ABBY [facility] Electronically Signed 04/04/11 2127 Ivon Shelton MD MARKIE CHAN ADM:03/31/11 [id number] 04/02/11 DIS IN DISCHARGE SUMMARY [id number] [facility] ES [facility] Ivon Shelton MD B THIS REPORT IS CONFIDENTIAL AND NOT TO BE RELEASED WITHOUT PROPER AUTHORIZATION.Electronica lly signed by ABBY Keyes at 05/22/2013 9:46 AM PSTdocumented in this encounter Plan of Treatment Not on filedocumented as of this encounter Visit Diagnoses Not on filedocumented in this encounter"
--- OUTSIDE RECORDS SUMMARY | ~2019-07-30 | XMS | Encounter Summary ---
Demographics + + + | Address | [address] | | | [place] [address] | + + + | Home Phone [...] Team Providers + +------+ + | Care Tar Distributor Operator Name | Role | Phone | [...] | | | | | | | [address] | | | | | | | Phone: | | | | | | | [phone] | | | | | | | Fax: | | | | | | | [phone] | +--------+--------+ + + + + Encounter [...] | | [address] | [address] | Coronary | | 2013 | | [place] | | atherosclerosis of | | | | [address] | | unspecified type of | | | | [phone] | | vessel, [place] or | | | | | | graft; Non-STEMI | | | | | | (non-ST elevated | | | | | | myocardial | | | | | | infarction) ([facility]); | | | | | | Uncontrolled [...] | | | | | | infarction) ([facility]); | | | | | | S/P CABG x 4; Acute | | | | | | systolic heart | | | | | | failure ([facility]) | +--------+ + + + [...] sleep program. Prescr iptions were sent to [facility] in [place]. All medications were reviewed with pt and [...] Hospital Problem: NSTEMI (non-ST elevated myocardial infarction) ([facility]) Admission Diagnoses: HOSPITAL PROBLEM LIST FULL PROBLEM LIST Principal Problem: *NSTEMI (non-ST elevated myocardial infarction) ([facility]) Active Problems: CORONARY ARTERY DISEASE CARDIOMYOPATHY DILATED ISCHEMIC Allergic reaction to contrast dye Patient Active Problem List Diagnosis HYPOTHYROIDISM HYPERLIPIDEMIA SLEEP APNEA OBSTRUCTIVE RESTLESS LEGS SYNDROME ESSENTIAL HYPERTENSION BENIGN CORONARY ARTERY DISEASE CARDIOMYOPATHY DILATED ISCHEMIC CHRONIC SINUSITIS CEREBRAL ISCHEMIA Nausea Allergic reaction to contrast dye NSTEMI (non-ST elevated myocardial infarction) ([facility]) Discharge Diagnoses: NSTEMI (non-ST elevated myocardial infarction) ([facility]) Assessment & Plan A:NSTEMI. Heart catheterization with [...] to right collateral. S/P NSTEMI 10/26/13 in [place] Rxd medically; Echo EF 50% with inferior [...] with chest pain. She was transferred from [place] after presenting there having severe chest pain [...] but no workup at a hospital in [place]. She has had prior stents in 2004 [...] Take 81 mg by mouth Daily. B Aysnrjj-Rhixde-SQ ( VITAMIN B 50/B-COMPLEX) TABS once a [...] 1-2 weeks. Follow-up with Dr. Christianson with [facility] at 1:00 P.M. On 02/10/2014 suite [...] | 0 | 09/21/20 | | | Onpjckn-Zcjvyu-CG | | | | 11 | 4 [...] Name: Markie Pinto : 1940 Medical Record: [id number] Hospital Day: Hospital Day: 2 Code Status: [...] ARTERY DISEASE Overview S/P NSTEMI 10/26/13 in [place] Rxd medically; Echo EF 50% with inferior [...] - 12/17/13 0712/17/13700 - 12/18/13 0700 Shift 4228-3464 24 Hour Total 4819-8442 3158-1814 24 Hour Total I N T A [...] signed by: ABBY Farnsworth, DATE/TIME: 12/17/2013 10:08 [facility] 14 12:09 PM Erum Randall MD - 12/16/2013 9:04 AM PDTFormatting of this note mi ght be different from the original. Located Within [facility] PATIENT NAME: Markie Pinto : 1940: AGE: [...] high risk. She just had anot her GA several weeks ago in [place] so she is pretty high risk clinically. Her understan ding of her disease process is poor; education being done. She thinks her GA in [place] was due to "getting too cold" and [...] Patient | | | Name: MARKIE PINTON: [id number] | | | Study Date: 12/24/2013DOB: 1940 | | | Gender: FemaleAge: 73 yrs | | | Location: [facility] [place] [facility] | | | HR: 52Height: | | | 65 in Weight: 164 lbBSA: | | | 1.8 y2Hphptw For Study: cabg X 4 AUCSCA 2bHistory: [...] |Referring Physician: Sj Viera MD | | |Javascript Front End Developer: Yasmeen Guerrero | | | | | + + --+ + + | Procedure Note | + + | Mauricio, Rad Results In - 12/25/2013 12:38 PM PDT | | Adult Intra-Op | | ERIN Report | | | | Patient Name: MARKIE PINTO | | Study Date: 12/24/2013 | | : 1940 Gender: Female | | Age: 73 yrs Location: [facility] [place] [facility] | | HR: 52 | | Height: 65 in Weight: 164 lb | | BSA: 1.8 m2 | | Reason For Study: cabg X 4 AUC | | SCA 2b | | History: HTN, Obstructive sleep | | apnea, CAD, GA | | Rhythm: SB | | | [...] Referring Physician: Sj Viera MD | | Javascript Front End Developer: Yasmeen Guerrero | + + + + | Transcriptions | + + | [place] - 12/25/2013 12:00 AM PDT | + + + +---------+ + + | Performing | Address | City/State/Zipcode | Phone Number | | Organization | | | | + +---------+ + + | [facility] | | | [phone] | + +---------+ + + | [facility] | | | [phone] | + +---------+ + + CBC no [...] + | [facility] | [address] | [place] [address] | | | [facility] | | | | | [...] + + | [facility] | [address] | [place] [address] | | | [facility] | | | | | LABORATORY | | | | + + + + + CV Adult Cardiac Cath Diag/PCI (12/17/2013 5:46 PM PDT) + + | Specimen | + + | | + + + + + | Narrative | Performed At | + + + | Erum Gerardo MD 12/17/2013 18:09 PRIMARY FIRE SPRINKLER FITTER: | | | Erum Gerardo MD [facility] | | | VASCULAR TECHNOLOGIST: | | | [facility] PRE-PROCEDURE DIAGNOSIS: | | | Acute coronary syndrome; new ischemic | | | cardiomyopathy POST-PROCEDURE DIAGNOSIS: Same | | | with severe multivessel CAD PROCEDURES PERFORMED: 1. | | | Insertion of 5 Grenadian catheter into right femoral artery 2. | | | Selective Coronary Angiography using 5 Grenadian Taz Left 3.5 and | | | [...] and engaged the right with a 6 Grenadian | | | Multipurpose catheter. This was [...] and anesthetized with 1% lidocaine. A 5 maltese | | | sheath was placed into the right femoral artery without difficulty | | | on a single-wall stick. All exchanges of catheters were done over | | | a guidewire with fluoroscopic guidance. Selective angiography was | | | performed with catheters described above. The right coronary | | | could not be engaged with many different 5 Grenadian and then a number | | | of 6 maltese catheters through long [address] Hughes | | | gave assist as above. The cathters tried included 5 Grenadian JR4, JR | | | 5, WNTR, AL1, AR1 and AR2 as well as 6 Grenadian R4, AR1, AL1. | | | LV [...] per protocol | | | (detailed in garage laborer notes) and Isovue contrast. FINDINGS: | | [...] MD - 12/17/2013 5:58 PM PDT PRIMARY FIRE SPRINKLER FITTER: | | MD JOB Tilley KNOT TIER: | | Erum Gerardo MD FACCPRE-PROCEDURE DIAGNOSIS: Acute | | coronary syndrome; new ischemic cardiomyopathyPOST-PROCEDURE DIAGNOSIS: | | Same with severe multivessel CADPROCEDURES PERFORMED: 1. Insertion of 5 Grenadian | | catheter into right femoral artery2. Selective Coronary Angiography using 5 Grenadian | | Taz Left 3.5 and protracted [...] and engaged the right with a 6 Grenadian Multipurpose | | catheter.This was a prolonged [...] | anesthetized with 1% lidocaine. A 5 maltese sheath was placed into the right femoral | | artery without difficulty on a single-wall stick. All exchanges of catheters were done | | over a guidewire with fluoroscopic guidance. Selective angiography was performed with | | catheters described above. The right coronary could not be engaged with many different | | 5 Grenadian and then a number of 6 maltese catheters through long 6 Grenadian sheath. | | Ellen gave assist as above. The cathters tried included 5 Grenadian JR4, JR 5, WNTR, AL1, | | AR1 and AR2 as well as 6 Grenadian R4, AR1, AL1. LV pressures were obtained with the JR1 | | catheter. Manual pressure was utilized to achieve successful hemostasis in the femoral | | artery. there were no immediate complications. There were no complications immediate | | to procedure. Blood loss was < 5 cc. Medications given included versed and fentanyl | | per protocol (detailed in garage laborer notes) and Isovue contrast. FINDINGS:Hemodynamics: | | [...] + + | [facility] | [address] | [place] [address] | | | [facility] | | | | | [...] [address] | [place] [address] | | | [facility] | [...] + | [facility] | [address] | [place] [address] | | | [facility] | | | | | [...] + + | [facility] | [address] | [place] [address] | | | [facility] | | | | | [...] Rah | | | Edison Kimbrough MD [facility] PROVIDER: Electronically Signed by: Erum Ragland | [...] Risk stratification post-myocardial infarction | | | ([place]) Clinical History: 73 y.o. year old female with recent GA | | | in [place] but refuses HC, re admitted with positive [...] García MD | | REFERRING: Edison Monreal [facility] PROVIDER: Sandra Armenta PA-C | | NUCLEAR MEDICINE PHARMACOLOGIC STRESS TEST REPORT PATIENT NAME: Markie Howe | | Dustin : 1940 AGE: 73 y.o.ENCOUNTER DATE: 12/16/2013 DOCUMENT DATE: | | 12/16/2013PRIMARY CARE: Doug García MD REFERRING: Edison Monreal [facility] PROVIDER: | | Electronically Signed by:Erum Gerardo [...] imagingIndication: Risk | | stratification post-myocardial infarction ([place]) Clinical History:73 y.o. year old female | | with recent GA in [place] but refuses HC, re admitted with positive [...] | | |Indication: Risk stratification post-myocardial infarction ([place]) | | | |Clinical History: | |73 y.o. year old female with recent GA in [place] but refuses HC, re admitted with posit [...] + + | [facility] | [address] | [place] [address] | | | [facility] | | | | | [...] + + | [facility] | [address] | [place] [address] | | | [facility] | [...] | | | | [address], | | | | | | [place] [address] | | | | + + + + + + + + | Specimen | + + | Blood specimen | | (specimen) | + + + + + + + | Performing | Address | City/State/Zipcode | Phone Number | | Organization | | | | + + + + + | [facility] | [address] | [place] [address] | | | [facility] | | | | | [...] | | HEART | | | | [email or web address] | | MEDICAL | | | | [...] + + | [facility] | [address] | [place] [address] | | | [facility] | | | | | [...] + + | [facility] | [address] | [place] [address] | | | [facility] | | | | | [...] | | MARKIE PINTO Study Date: 12/16/2013MRN: [id number] | | | Patient Location: [facility] 604DOB: 1940 | | | Age: 73 yrs Gender: | | | FemaleHeight: 65 in Weight: 168 lb | | | BSA: 1.8 [id number] For Study: Chest Pain AUC 1 | [...] 10:19 AMOrdering | | | Physician: EDISON MONREALCarolinas Continuecare Hospital At Universityocardiographer: Kris Campbell [id number]: | | | | | |Aortic Valve: [...] | |Ordering Physician: EDISON MONREAL | | |Javascript Front End Developer: Kris Mcdonough | | |[id number]: | | | | | + + -+ + + | Procedure Note | + + | Carlos Martínez Results In - 12/16/2013 10:20 AM PDT | | Adult Echo | | Report | | | | Name: MARKIE PINTO Study Date: 12/16/2013 | | Patient Location: [facility] | | : 1940 Age: [...] | | | | Interpreting Physician: Erum Gerrado MD | | electronically signed on 12/16/2013 10:19 AM | | Ordering Physician: EDISON MONREAL | | Javascript Front End Developer: Kris Mcdonough | | [id number]: | + + + + | Transcriptions | + + | [place] - 12/16/2013 12:00 AM PDT | + + + +---------+ + + | Performing | Address | City/State/Zipcode | Phone Number | | Organization | | | | + +---------+ + + | [facility] | | | [phone] | + +---------+ + + | [facility] | | | [phone] | + +---------+ + + PTT (12/16/2013 [...] + + | [facility] | [address] | [place] [address] | | | [facility] | | | | | [...] + + | Glucose | 119 (H)Comment: Niuean | 65 - 99 mg/dL | [facility] | | | | [employer] | [...] [facility] | [address] | [place] [address] | | | [facility] | [...] + | [facility] | [address] | [place] [address] | | | [facility] | [...] + | [facility] | [address] | [place] [address] | | | [facility] | | | | | [...] + + | [facility] | [address] | [place] [address] | | | [facility] | | | | | [...] Coronary atherosclerosis of unspecified type of vessel, [place] or graft | + + | Non-STEMI [...] of unspecified type of vessel, | | [place] or graft | + + | Chronic [...] 3:58 | | | | | Intravenous, APPLICATION SPEC, Starting | | PM PDT | | [...] | | | | | | use [place] 10/325 if ordered. If | | | [...] | | | | 1 dose, Cardiac Fisher [place] [facility] | | | | | | + [...]
--- OUTSIDE RECORDS SUMMARY | ~2019-07-30 | XMS | Encounter Summary ---
Demographics + + + | Address | [address] | | | [place] [address] | + + + | Home Phone | | + + + | Preferred Language | Unknown | + + + | Marital Status | | + + + | Baptist Affiliation | 1001 | + + + [...] Team Providers + +------+ + | Care Planogrammer Name | Role | Phone | + [...] | | | | | | | [address] | | | | | | | Phone: | | | | | | | [phone] | | | | | | | Fax: | | | | | | | [phone] | +--------+--------+ + + + + Encounter [...] [place] | | | | | [address] | [address] | | | | | [phone] | | | +--------+---------+ + + + [...] sleep program. Prescr iptions were sent to [facility] in [place]. All medications were reviewed with pt and [...] Erum Gerardo MD 12/18/2013 13:00 Natalia Moulton, [facility] - 12/18/2013 10:20 AM PDTFormatting of this note might be different from the origi nal. PATIENT NAME: Markie Pinto : 1940: AGE: 73 y.o. ADMISSION DATE: 12/16/2013 DISCHARGE DATE: 12/18/2013 PRIMARY CARE: MD Tonia Thao ARNP DISCHARGE SUMMARY Principal Hospital Problem: NSTEMI (non-ST elevated myocardial infarction) ([facility]) Admission Diagnoses: HOSPITAL PROBLEM LIST FULL PROBLEM LIST Principal Problem: *NSTEMI (non-ST elevated myocardial infarction) ([facility]) Active Problems: CORONARY ARTERY DISEASE CARDIOMYOPATHY DILATED ISCHEMIC Allergic reaction to contrast dye Patient Active Problem List Diagnosis HYPOTHYROIDISM HYPERLIPIDEMIA SLEEP APNEA OBSTRUCTIVE RESTLESS LEGS SYNDROME ESSENTIAL HYPERTENSION BENIGN CORONARY ARTERY DISEASE CARDIOMYOPATHY DILATED ISCHEMIC CHRONIC SINUSITIS CEREBRAL ISCHEMIA Nausea Allergic reaction to contrast dye NSTEMI (non-ST elevated myocardial infarction) ([facility]) Discharge Diagnoses: NSTEMI (non-ST elevated myocardial infarction) ([facility]) Assessment & Plan A:NSTEMI. Heart catheterization [...] with chest pain. She was transferred from [place] after presenting there having severe chest pain [...] Take 81 mg by mouth Daily. B Iwirzlg-Fiiivp-GW ( VITAMIN B 50/B-COMPLEX) TABS once a [...] 1-2 weeks. Follow-up with Dr. Christianson with [facility] at 1:00 P.M. On 02/10/2014 suite [...] | 0 | 04/06/20 | | | Tqsdkyt-Nhjhsw-ZB | | | | 11 | 4 [...] Name: Markie Pinto : 1940 Medical Record: [id number] Hospital Day: Hospital Day: 2 Code Status: [...] 12/17/13 0712/17/13 07 - 12/18/13 0700 Shift 3660-7894 24 Hour Total 9700-8827 6783-2098 24 Hour Total I N T A [...] by: ABBY Farnsworth, DATE/TIME: 12/17/2013 10:08 [facility] CARDI[facility] 14 12:09 PM Prakash, Erum Ragland MD - 12/16/2013 9:04 AM PDTFormatting of this note mi ght be different from the original. [facility] PATIENT NAME: Markie Pinto : 1940: AGE: [...] high risk. She just had anot her PR several weeks ago in [place] so she is pretty high risk clinically. Her understan ding of her disease process is poor; education being done. She thinks her PR in [place] was due to "getting too [...] hour(s)) CBC WITH DIFFERENTIAL Collection Time 12/15/13 3514 Component Value Range WBC 6.1 4.0 - [...] (*) >60 ml/min/1.73m2 PTT Collection Time 12/16/13 0682 Component Value Range aPTT, Patient 106 (*) [...] Patient | | | Name: MARKIE PINTO: [id number] | | | Study Date: 12/24/2013DOB: 1940 | | | Gender: FemaleAge: 73 yrs | | | Location: [facility] | | | HR: 52Height: | | | 65 in Weight: 164 lbBSA: | | | 1.8 c5Nwsnwp For Study: cabg X 4 AUCSCA 2bHistory: [...] |Referring Physician: Sj Viera MD | | |Cw Operator: Yasmeen Guerrero | | | | | + + --+ + + | Procedure Note | + + | Mauricio, Rad Results In - 12/25/2013 12:38 PM PDT | | Adult Intra-Op | | ERIN Report | | | | Patient Name: MARKIE PINTO | | Study Date: 12/24/2013 | | : 1940 Gender: Female | | Age: 73 yrs Location: [facility] | | HR: 52 | | Height: 65 in Weight: 164 lb | | BSA: 1.8 m2 | | Reason For Study: cabg X 4 AUC | | SCA 2b | | History: HTN, Obstructive sleep | | apnea, CAD, PR | | Rhythm: SB | | | [...] Referring Physician: Sj Viera MD | | Cw Operator: Yasmeen Guerrero | + + + + | Transcriptions | + + | [facility] - 12/25/2013 12:00 AM PDT | + + + +---------+ + + | Performing | Address | City/State/Zipcode | Phone Number | | Organization | | | | + +---------+ + + | MISCELLANEOUS LAB | | | [phone] | + +---------+ + + | MISCELANIOUS LAB | | | [phone] | + +---------+ + + CBC no [...] + + | [facility] | [address] | [place] [address] | | | [facility] | | | | [...] | [address] | [place] [address] | | | [facility] | | | | | LABORATORY | | | | + + + + + CV Adult Cardiac Cath Diag/PCI (12/17/2013 5:46 PM PDT) + + | Specimen | + + | | + + + + + | Narrative | Performed At | + + + | Erum Gerardo MD 12/17/2013 18:09 PRIMARY ESOL INSTRUCTOR: | | | Erum Gerardo MD [facility] | | | SERVICE LIAISON REPRESENTATIVE: | | | Erum Gerardo MD [facility] PRE-PROCEDURE DIAGNOSIS: | | | Acute coronary syndrome; new ischemic | | | cardiomyopathy POST-PROCEDURE DIAGNOSIS: Same | | | with severe multivessel CAD PROCEDURES PERFORMED: 1. | | | Insertion of 5 Hong Konger catheter into right femoral artery 2. | | | Selective Coronary Angiography using 5 Hong Konger Taz Left 3.5 and | | | [...] and engaged the right with a 6 Hong Konger | | | Multipurpose catheter. This was [...] and anesthetized with 1% lidocaine. A 5 polish | | | sheath was placed into the right femoral artery without difficulty | | | on a single-wall stick. All exchanges of catheters were done over | | | a guidewire with fluoroscopic guidance. Selective angiography was | | | performed with catheters described above. The right coronary | | | could not be engaged with many different 5 Hong Konger and then a number | | | of 6 polish catheters through long [address] Hughes | | | gave assist as above. The cathters tried included 5 Hong Konger JR4, JR | | | 5, WNTR, AL1, AR1 and AR2 as well as 6 Hong Konger R4, AR1, AL1. | | | LV [...] per protocol | | | (detailed in minilab operator notes) and Isovue contrast. FINDINGS: | | [...] MD - 12/17/2013 5:58 PM PDT PRIMARY ESOL INSTRUCTOR: | | Erum Gerardo MD [facility] HVAC PROJECT MANAGER: | | Erum Gerardo MD FACCPRE-PROCEDURE DIAGNOSIS: Acute | | coronary syndrome; new ischemic cardiomyopathyPOST-PROCEDURE DIAGNOSIS: | | Same with severe multivessel CADPROCEDURES PERFORMED: 1. Insertion of 5 Hong Konger | | catheter into right femoral artery2. Selective Coronary Angiography using 5 Hong Konger | | Taz Left 3.5 and protracted [...] and engaged the right with a 6 Hong Konger Multipurpose | | catheter.This was a prolonged [...] | anesthetized with 1% lidocaine. A 5 polish sheath was placed into the right femoral | | artery without difficulty on a single-wall stick. All exchanges of catheters were done | | over a guidewire with fluoroscopic guidance. Selective angiography was performed with | | catheters described above. The right coronary could not be engaged with many different | | 5 Hong Konger and then a number of 6 polish catheters through long 6 Hong Konger sheath. | | Ellen gave assist as above. The cathters tried included 5 Hong Konger JR4, JR 5, WNTR, AL1, | | AR1 and AR2 as well as 6 Hong Konger R4, AR1, AL1. LV pressures were obtained with the JR1 | | catheter. Manual pressure was utilized to achieve successful hemostasis in the femoral | | artery. there were no immediate complications. There were no complications immediate | | to procedure. Blood loss was < 5 cc. Medications given included versed and fentanyl | | per protocol (detailed in minilab operator notes) and Isovue contrast. FINDINGS:Hemodynamics: | | [...] + + | [facility] | [address] | [place] [address] | | | [facility] | | | | | LABORATORY [...] + | [facility] | [address] | [place] [address] | | | [facility] | | | | | LABORATORY [...] | [address] | [place] [address] | | | [facility] | | | | | LABORATORY [...] + + | [facility] | [address] | [place] [address] | | | [facility] | | | | | LABORATORY [...] Rah, | | | Edison Kimbrough MD [facility] PROVIDER: Electronically Signed by: Erum Ragland [...] Risk stratification post-myocardial infarction | | | (PR) Clinical History: 73 y.o. year old female with recent PR | | | in [place] but refuses [...] García MD | | REFERRING: Edison Monreal [facility] PROVIDER: Sandra Armenta PA-C | | NUCLEAR MEDICINE PHARMACOLOGIC STRESS TEST REPORT PATIENT NAME: Markie Howe | | Dustin : 1940 AGE: 73 y.o.ENCOUNTER DATE: 12/16/2013 DOCUMENT DATE: | | 12/16/2013PRIMARY CARE: Doug García MD REFERRING: Edison Monreal [facility] PROVIDER: | | Electronically Signed by:Erum Gerardo [...] imagingIndication: Risk | | stratification post-myocardial infarction (PR) Clinical History:73 y.o. year old female | | with recent PR in [place] but refuses HC, re admitted [...] | | |Indication: Risk stratification post-myocardial infarction (PR) | | | |Clinical History: | |73 y.o. year old female with recent PR in [place] but refuses HC, re admitted [...] + | [facility] | [address] | [place] [address] | | | [facility] | | | | | LABORATORY [...] + + | [facility] | [address] | [place] [address] | | | [facility] | | | | | LABORATORY [...] | | | | [address], | | | | | | [place] [address] | | | | + + + + + + + + | Specimen | + + | Blood specimen | | (specimen) | + + + + + + + | Performing | Address | City/State/Zipcode | Phone Number | | Organization | | | | + + + + + | [facility] | [address] | [place] [address] | | | [facility] | | | | [...] | | HEART | | | | [email or web address] | | MEDICAL | | | | [...] + + | MONIKA MELCH[facility] | [address] | [place] [address] | | | [facility] | | | | | LABORATORY [...] + + | [facility] | [address] | [place] [address] | | | [facility] | | | | | LABORATORY [...] | | MARKIE PINTO Study Date: 12/16/2013MRN: [id number] | | | Patient Location: [facility]DOB: 1940 | | | Age: 73 yrs Gender: | | | FemaleHeight: 65 in Weight: 168 lb | | | BSA: 1.8 [id number] For Study: Chest Pain AUC 1 | [...] | | | Physician: EDISON MONREALEchocardiographer: Kris [id number]: | | | | | |Aortic Valve: [...] | |Ordering Physician: EDISON MONREAL | | |Cw Operator: Kris Mcdonough | | |[id number]: | | | | | + + -+ + + | Procedure Note | + + | Mauricio, Rad Results In - 12/16/2013 10:20 AM PDT | | Adult Echo | | Report | | | | Name: MARKIE PINTO Study Date: 12/16/2013 | | Patient Location: [facility] | | : 1940 Age: [...] | Ordering Physician: EDISON MONREAL | | Cw Operator: Kris Mcdonough | | [id number]: | + + + + | Transcriptions | + + | [place] - 12/16/2013 12:00 AM PDT | + + + +---------+ + + | Performing | Address | City/State/Zipcode | Phone Number | | Organization | | | | + +---------+ + + | [facility] | | | [phone] | + +---------+ + + | MISCELANI[facility] | | | [phone] | + +---------+ + + PTT (12/16/2013 [...] + | [facility] | [address] | [place] [address] | | | [facility] | [...] + + | Glucose | 119 (H)Comment: Italian | 65 - 99 mg/dL | [facility] [...] + | [facility] | [address] | [place] [address] | | | [facility] | | | | | LABORATORY [...] + | [facility] | [address] | [place] [address] | | | [facility] | | | | | LABORATORY [...] + + | [facility] MEL[facility] | [address] | [place] [address] | | | [facility] | | | | [...] + + | [facility] | [address] | [place] [address] | | | [facility] | | | | | LABORATORY | | | | + + + + + documented in this encounter Visit Diagnoses + + | Diagnosis | + + | Chest pain, unspecified | + + documented in this encounter
--- OUTSIDE RECORDS SUMMARY | ~2019-07-30 | XMS | Encounter Summary ---
Demographics + + + | Address | [address] | | | [place] [address] | + + + | Home Phone [...] Team Providers + +------+ + | Care Cotton Classer Name | Role | Phone | + [...] | | and | [address] | | | | | giddiness | [place] | [place], [place] | | | | | Coronary | Ave. | [address] | | | | | atherosclero | [place], [place] | Phone: | | | | | sis of | [address] | [phone] | | | | | unspecified | Phone: | Fax: | | | | | type of | [phone] | [phone] | | | | | vessel, | Fax: | | | | | | otoe-missouria or | [phone] | | | | | | graft [...] + + | 03/10/ | Hospital | [facility] | Doug García MD | Dizziness of unknown | | 2014 | Encounter | [facility] | [address] | cause; Coronary | | | | [address] | [place] [address] | artery disease | | | | [place], [place] | [phone] | | | | | [address] | | | | | | [phone] | [facility] | | +--------+ [...] of unspecified type of vessel, | | otoe-missouria or graft | + + documented in this encounter"
--- OUTSIDE RECORDS SUMMARY | ~2019-07-30 | XMS | Encounter Summary ---
Demographics + + + | Address | [address] | | | [place] [address] | + + + | Home Phone [...] Team Providers + +------+ + | Care Polishing Wheel Repairer Name | Role | Phone | + [...] + + | 01/15/ | Hospital | [facility] | Ivon Shelton | Paroxysmal atrial | | 2013 - | Encounter | [facility] | MD Adrian [address] | fibrillation (HCC) | | | | CARDIAC TRANSPLANT | [address] | (Primary Dx) | | 01/17/ | | [address] | [place] [address] | | | 2013 | | [place] | [phone] | | | | | [address] | | | | | | [phone] | | | +--------+ + + + [...] the daily note as written by the [facility] provider, and discussed the patient with [...] PO 200mg BID. Will DC patient from [facility] today, Follow up has been scheduled for 02/10/14. Coronary artery disease Assessment & Plan The patient is status post CABGx4 by Dr. Viera with normal LVEF. Recovering from surgery. Hospital Course: 73 yo female post CABG x4 on 12/24/13. Her postoperative period was complicated by paroxysma l atrial fibrillation. She was hospitalized at [facility] from 01/06-01/15 with recurre nt Afib and some transient Mobitz type 2 HB. She was transferred here to [facility] on 01/15/14 and she was placed on amiodarone and taken off digoxin. She has maintained NSR since admission here. She will be Dcd to home today on her current medications and follow up as previously scheduled on 02/10/14. Follow-Up: Fly Christianson MD [address] [facility] [address] [facility] [address] On 02/10/2014 at 1 pm Reena Ralph PA-C [address] [facility] [address] On 02/10/2014 @ 2 pm Discharge Medications: [...] Instructions: Discharge Instructions PT/INR on Monday at [facility]. Time spent on discharge planning:less than 30 minutes Signed by: ABBY Cade 01/17/2014, 10:22 documented in this encounter Discharge Instructions Instructions Brittany Prasad ARNP - 01/17/2014PT/INR on Monday at [facility]. Atrial Fibrillation Atrial Fibrillation is [...] vision Extreme drowsiness, confusion, dizziness or fainting [phone] [place] [address]. All rights reserve d. This information is not intended as a substitute for professional medical care. Always fo llow your healthcare professional's instructions. AttachmentsThe following attachments cannot be sent through Care Everywhere.AMIODARONE HYDR OCHLORIDE ORAL TABLET (EMIRATI)TAKINGCOUMADIN (EMIRATI)documented in this encounter Medications at Time of [...] was also started on digoxin at the [facility] facility (250mcg/day) this has not been continued [...] cannula sitting in a chair. at the [facility]. HEENT: The oropharynx and conjunctivae are clear. [...] + + | [facility] | [address] | [place] [address] | | | [facility] | | | | | [...] | | | | t performed at [facility] | | | | | | Laboratories, [address] | | | | | | [facility] | | | | | | [place], [place] | | | | | | [address].Performed at [facility], | | | | | | [address] [facility] | | | | | | [place] [address] | | | | + + + + + + + + | Specimen | + + | Blood specimen | | (specimen) | + + + + + + + | Performing | Address | City/State/Zipcode | Phone Number | | Organization | | | | + + + + + | [facility]A [facility] | [address] | [place] [address] | | | [facility] | | | | | [...] | TRACEMASTER | | Interval: msHeartrate: bpmP [place]: degQRS [place]: degT Wave [place]: | | | degI: 40 [place]: degT: 40 [place]: degT: 40 [place]: degST [place]: | | | degSeverity: - ABNORMAL ECG -INTERP: ATRIAL FIBRILLATIONINTERP: | | | PROBABLE LVH WITH SECONDARY REPOL ABNRM | | |P [place]: deg | | |QRS [place]: deg | | |T Wave [place]: deg | | |I: 40 [place]: deg | | |T: 40 [place]: deg | | |T: 40 [place]: deg | | |ST [place]: deg | | |Severity: - ABNORMAL ECG [...] + + | [facility] | [address] | [place] [address] | [phone] | + + + + + Theron [...] + | [facility] | [address] | [place] [address] | | | [facility] | | | | | [...] + + | [facility] | [address] | [place] [address] | | | [facility] | [...] | TRACEMASTER | | Interval: msHeartrate: bpmP [place]: degQRS [place]: degT Wave [place]: | | | degI: 40 [place]: degT: 40 [place]: degT: 40 [place]: degST [place]: | | | degSeverity: - ABNORMAL ECG -INTERP: SINUS RHYTHMINTERP: LEFT | | | AXIS DEVIATIONINTERP: LVH WITH SECONDARY REPOLARIZATION ABNORMALITY | | |P [place]: deg | | |QRS [place]: deg | | |T Wave [place]: deg | | |I: 40 [place]: deg | | |T: 40 [place]: deg | | |T: 40 [place]: deg | | |ST [place]: deg | | |Severity: - ABNORMAL ECG [...] + | W[facility] TRACEMASTER | [address] | [place] [address] | [phone] | + + + + + Comprehensive [...] + + + | Glucose | 85Comment: Guamanian | 65 - 99 mg/dL | [facility] | [address] | [place] [address] | | | [facility] | [...] + + | [facility] | [address] | [place] [address] | | | [facility] | | | | | [...] + | [facility] | [address] | [place] [address] | | | [facility] | | | | | LABORATORY | | | | + + + + + documented in this encounter Visit Diagnoses + + | Diagnosis | + + | Paroxysmal atrial fibrillation (HCC) - Primary Atrial fibrillation | + + | Coronary artery disease Coronary atherosclerosis of unspecified type of vessel, | | pamunkey or graft | + + documented in [...]
--- OUTSIDE RECORDS SUMMARY | ~2019-07-30 | XMS | Encounter Summary ---
Demographics + + + | Address | [address] | | | [place] [address] | + + + | Home Phone | | + + + | Preferred Language | Unknown | + + + | Marital Status | | + + + | Orthodox Affiliation | 1001 | + + [...] Team Providers + +------+ + | Care Hairspring Assembler Name | Role | Phone | + +------+ + | Doug García MD | PCP | | + +------+ + Reason for Visit + + + | Reason | Comments | + + + | Medication Problem | | + + + Encounter Details +--------+--------+ + + + | Date | Type | Department | Care Team | Description | +--------+--------+ + + + | 03/30/ | Refill | [facility] | Petar, | Medication Problem | | 2018 | | CARDIOLOGY [facility] | Dio James MD [address] | | | | | [address] | [address] | | | | | [address] [place] | [address] [place] | | | | | [address] | [id number] | | | | | [phone] | | | +--------+--------+ + + + [...]
--- OUTSIDE RECORDS SUMMARY | ~2019-07-30 | XMS | Encounter Summary ---
Demographics + + + | Address | [address] | | | [place] [address] | + + + | Home Phone | | + + + | Preferred Language | Unknown | + + + | Marital Status | | + + + | Protestant Affiliation | 1001 | + + + | Race | Unknown | + + + | Ethnic Group | Unknown | + + + Author + + + | Author | [facility] | | | and [place] | + + + | Organization | [facility] | | | [...] Providers + +------+ + | Care Senior Linux Engineer Name | Role | Phone | + +------+ + PCP | Unavailable | + +------+ + Reason for Visit + + + | Reason | Comments | + + + | Follow-up | | + + + Encounter Details +--------+---------+ + + + | Date | Type | Department | Care Team | Description | +--------+---------+ + + + | 08/06/ | Office | Alejandra HOLLINS | Charito Coker | Hypertension | | 2013 | Visit | [facility] | [address] | (Primary Dx) | | | | Internal Medicine | [address] [address] | | | | | [address] | [place] [address] | | | | | [place], [place] | [phone] | | | | | [address] | | | | | | [phone] | | | +--------+---------+ + + + [...] + + + | Blood Pressure | 138/92 | 08/06/2013 8:04 AM | | | | | PST | | + + + + + | Pulse | 78 | 08/06/2013 8:04 AM | | | | | PST | | + + + + + | Temperature | 36.1 C (96.9 F) | 08/06/2013 8:04 AM | | | | | PST | | + + + + + | Respiratory Rate | 18 | 08/06/2013 8:04 AM | | | | | PST | | + + + + + | Oxygen Saturation | - | - | | + + + + + | Inhaled Oxygen | - | - | | | Concentration | | | | + + + + + | Weight | 79.4 kg (175 lb) | 08/06/2013 8:04 AM | | | | | PST | | + + + + + | Height | - | - | | + + + + + | Body Mass Index | 28.25 | 07/31/2013 8:45 AM | | | | | PST | | + + + + + documented in this encounter Progress Notes Charito Coker, ABBY - 08/06/2013 8:17 AM PSTFormatting of this note might be diffe rent from the original. Subjective: Bounces on the rebounder 5-6 days a week for an hour. She did not start the metoprolol, but has been monitoring blood pressure and did have a visit with Dr Mendiola. She is going to be out of town all summer to follow her son in law [place] [facility] [place]. Patient's Medications New Prescriptions No medications on file Previous Medications ASCORBIC ACID ([facility] VITAMIN C) 1000 MG TABLET Take 1,000 mg by mouth Daily. B [id number] ( VITAMIN B 50/B-COMPLEX) TABS once a day GARLIC CAPS; once a day MAGNESIUM (GNP MAGNESIUM) 250 MG TABLET Take 250 mg by mouth 2 times daily. NITROGLYCERIN (NITROSTAT) 0.4 MG SL TABLET 0.4 mg as needed for chest pain, may repeat every 15 mins x 2 RED YEAST RICE 600 MG CAPS Take 600 mg by mouth 3 times daily. Modified Medications No medications on file Discontinued Medications No medications on file Allergies Allergen Reactions Diltiazem Hcl Iodinated Diagnostic Agents Review of Systems Constitutional: Negative for fever and chills. Respiratory: Negative for cough and shortness of breath. Cardiovascular: Negative for chest pain and palpitations. Gastrointestinal: Negative for nausea and vomiting. Musculoskeletal: Negative for back pain. Skin: Negative for rash. Objective: BP 138/92 | Pulse 78 | Temp 36.1 C (96.9 F) (Temporal) | Resp 18 | Wt 79.379 kg (175 lb ) Constitutional: Appears well-developed and well-nourished. Neck: No thyromegaly present. No masses. Pulmonary/Chest: Effort normal and breath sounds normal. Cardiovascular: RRR, normal heart sounds and intact distal pulses. Abdominal: Soft, non-tender, without masses. No hepatosplenomegaly. Assessment and Plan: There are no diagnoses linked to this encounter. docuromana i n this encounter Plan of Treatment Not on filedocumented as of this encounter Visit Diagnoses + + | Diagnosis | + + | Hypertension - Primary Unspecified essential hypertension | + + documented in this encounter"
--- OUTSIDE RECORDS SUMMARY | ~2019-07-30 | XMS | Encounter Summary ---
Demographics + + + | Address | [address] | | | [place] [address] | + + + | Home Phone | | + + + | Preferred Language | Unknown | + + + | Marital Status | | + + + | Latter-Day Affiliation | 1001 | + + + | Race | Unknown | + + + | Ethnic Group | Unknown | + + + Author + + + | Author | [facility] | | | and [place] | + + + | Organization | [facility] | | | [...] Team Providers + +------+ + | Care Shaker Tender Name | Role | Phone | + [...] Description | +--------+---------+ + + + | 05/04/ | Office | Alejandra HOLLINS | Doug García MD | Benign essential | | 2017 | Visit | [facility] | [address] | hypertension | | | | Internal Medicine | [place] [address] | (Primary Dx); | | | | [address] | [phone] | Obstructive sleep | | | | [place], [place] | | apnea; Coronary | | | | [phone] | | artery disease due | | | | [phone] | | to calcified | | | | | | coronary lesion; | | | | | | Restless legs | | | | | | syndrome (RLS); | | | | | | Hyperlipidemia, | | | | | | unspecified | | | | | | hyperlipidemia type; | | | | | | Chronic diastolic | | | | | | CHF (congestive | | | | | | heart failure), NYHA | | | | | | class 2 ([facility]); | | | | | | Paroxysmal atrial | | | | | | fibrillation ([facility]) | +--------+---------+ + + + Social History [...] + + + | Blood Pressure | 178/88 | 05/04/2017 8:16 AM | | | | | PDT | | + + + + + | Pulse | 71 | 05/04/2017 8:16 AM | | | | | PDT | | + + + + + | Temperature | - | - | | + + + + + | Respiratory Rate | 20 | 05/04/2017 8:16 AM | | | | | PDT | | + + + + + | Oxygen Saturation | 97% | 05/04/2017 8:16 AM | | | | | PDT | | + + + + + | Inhaled Oxygen | - | - | | | Concentration | | | | + + + + + | Weight | 81.2 kg (179 lb) | 05/04/2017 8:16 AM | | | | | PDT | | + + + + + | Height | - | - | | + + + + + | Body Mass Index | 29.79 | 11/10/2016 9:22 AM | | | [...] encounter Progress Notes Doug García MD - 05/04/2017 8:20 AM PDTFormatting of this note might be different from t eleonora original. [facility] CLINIC NOTE Patient Name: Chaya Chan 76 y.o. Date of : 1940 MR Number: [id number] Date of Visit: 05/04/2017 Patient Active Problem List Diagnosis Hypothyroidism Hyperlipidemia [...] stenosis Dizziness Bilateral carotid artery disease Subjective: Chaya Chan is a 76 y.o. female patient here today for follow up. She is doing well. Since our last visit in October, she has not had any acute problems. She had carotid duplex studies done in November which showed mild stenosis bilaterally (less than 50% diameter reductio n), unchanged compared to prior study of 08/20/15. Her blood pressure has been under control . She is taking metoprolol for this but has not taken hydrochlorothiazide which was previou sly prescribed. She thought the medication was just for extra fluid and since she did not f eel she had an extra fluid, she did not take the medication. I explained to her that this i s part of her anti-HTN regimen. She denies any chest pains, no headaches or lightheadedness . She is not short of breath. She continues to use her CPAP regularly, averages 7 hours of sleep with the CPAP on. Occas ionally, she would take a break from the CPAP and not wear it all night. She says she sleep s fine without it and according to , she also does not snore without the CPAP. She w onders if her sleep apnea has improved. Her weight has not changed since when she started C PAP close to 10 years ago. Patient's medications, allergies, past medical, surgical, social [...] anxiety, no depression, no insomnia Objective: BP 178/88 | Pulse 71 | Resp 20 | Wt 81.2 kg (179 lb) | SpO2 97% | BMI 29.79 kg/m Gen Liang - alert, no distress, well-nourished [...] and all orders for this visit: 1. Benign essential hypertension 2. Obstructive sleep apnea 3. Coronary artery disease due to calcified coronary lesion 4. Restless legs syndrome 5. Hyperlipidemia 6. Chronic diastolic CHF (congestive heart failure), NYHA class 2 7. Paroxysmal atrial fibrillation 8. Carotid artery stenosis PLAN: We discussed the pathophysiology of sleep apnea and its treatment and the implications of u ntreated sleep apnea. The patient has been compliant with CPAP therapy and is clearly benef iting from it. I discussed the mechanism of action of CPAP in treating sleep apnea. I discu ssed desensitization techniques as well as some imagery techniques that can be helpful. Robel ellison discussed the use of heated humidity. I encouraged the patient to continue regular usage. Continue with metoprolol and I asked her to resume hydrochlorothiazide as well. Continue the rest of her current medications. Annual carotid duplex to follow carotid artery disease. Follow-up in 6 months. Electronically signed by: Doug García 05/04/2017 9:06 [facility] by Doug García MD at 1:31 AM PDTdocumented in this encounter Plan of Treatment [...] legs syndrome (RLS) | + + | Hyperlipidemia, unspecified hyperlipidemia type | + + | Chronic diastolic CHF (congestive heart failure), NYHA class 2 (HCC) | + + | Paroxysmal atrial fibrillation (HCC) Atrial fibrillation | + + documented in this encounter"
--- OUTSIDE RECORDS SUMMARY | ~2019-07-30 | XMS | Encounter Summary ---
Demographics + + + | Address | [address] | | | [place] [address] | + + + | Home Phone [...] Team Providers + +------+ + | Care Tactical Intelligence Officer Name | Role | Phone | + [...] AVE | | | | | | [place], | [address] | | | | | | [place] [address] | [place], [place] | | | | | | Phone: | [phone] | | | | | | [phone] | Phone: | | | | | | Fax: | [phone] | | | | | | [phone] | Fax: | | | | | | | [phone] | +--------+ + + + + + [...] | | | | | | | port lions | | | | | | | coronary | | | | | | | artery | | | | | | | Coronary | | | | | | | atherosclero | | | | | | | sis of | | | | | | | port lions | | | | | | | coronary | | | | | | | artery | | | | | | | Procedures | | | | | | | UT CABG, | | | | | | [...] + + | 12/24/ | Hospital | [facility] | Sj Viera, | Stress hyperglycemia | | 2013 - | Encounter | [facility] | [address] | (Primary Dx); | | | | CARDIAC TRANSPLANT | [place] [address] | Coronary | | 01/02/ | | [address] | [phone] | atherosclerosis of | | 2013 | | [place] | | unspecified type of | | | | [address] | | vessel, port lions or | | | | [phone] | | graft; Essential | | | | | | hypertension, | | | | | | benign; NSTEMI | | | | | | (non-ST elevated | | | | | | myocardial | | | | | | infarction) ([facility]); | | | | | | A-fib ([facility]); Acute | | | | | | blood loss anemia; | | | | | | Hyponatremia; Acute | | | | | | systolic heart | | | | | | failure ([facility]) | +--------+ + + + + Social [...] Herrera PA - 01/02/2014 10:18 AM PDT [facility] PATIENT NAME: [...] dye NSTEMI (non-ST elevated myocardial infarction) ([facility]) Acute systolic heart failure (HCC) Stress hyperglycemia [...] room. Hospital Course: Patient was admitted to [facility] on 12/24/[address] Dodie [...] She has been referred t o the [facility] anticoagulation clinic for further monitoring. [...] TRIG 70 12/16/2013 Discharge Medications: Not reviewed FRONT OFFICE AGENT meds Medication Sig Dispense Refill ascorbic acid ([employer] VITAMIN C) 1000 MG tablet Take 1,000 mg by mouth Daily. aspirin 81 mg EC tablet Take 81 mg by mouth Daily. atorvaSTATin (LIPITOR) 40 mg tablet Take 1 tablet by mouth Daily. 30 tablet 11 B Btzjort-Hghxsz-ZD (TH VITAMIN B 50/B-COMPLEX) TABS once a [...] and to use incentive spirometer. Follow-up with [facility] in 1 month. Follow-up with Doug García in 1-2 weeks. Follow-up with Dr. Armstrong with [facility] in 1 month. If patient has any further questions or concerns prior to above, instructed to call our off ice. [phone]. Signed by: CASSIE Thomas Cardiothoracic Surgery [facility] 01/02/2014, 10:18 [...] ed help. Don t lift anything heavier erab6qymrcg for6-8 weeks. Until approved by your doctor, [...] the hospital, begin with short wal ks (ddagb4dcvsrzw) at home. Go a little longer each [...] symptoms you had prior to surgery Fever [id number] Redness, swelling, drainage, or warmth at the incision site Shortness of breath Fainting Weight gain of more lwgf3ndbtsn xr43ftkod or more zpld7vkshsr bp6kwjc(s) New or increasedswelling in your hands, feet, or ankles Pain that cannot be relieved or changes in the location, type, or severity of pain Fast or irregular pulse Unrelieved pain in your incision [id number] [facility], [address] [place] [address], [place] [address]. All rights reserve d. This information is [...] | 0 | 04/06/20 | | | Zbiuijc-Xjmjow-DU | | | | 11 | 4 [...] Coronary atherosclerosis of unspecified type of vessel, port lions or graft CHIEF COMPLAINT: shortness of breath, [...] class 2 ([facility]) Overview 12/24/2013 Echo: 1. There is again [...] diphenhydrAMINE, diphenhydrAMINE, diphenhydramine, HYDROcodone-acetaminophen, HYDROcodone-acetaminophen, magnesium hydroxide, qvbnlvfr-pnybmzguc-vhsekqxtse, ondansetron, ondansetron, phenol-menthol, sodium phosphate IV INFUSIONS: [...] 0700 01/02/14 07 - 01/03/14 0700 Shift 6484-1654 24 Hour Total 1900-0700 24 Hour Total [...] (mL/kg) 1600 (20.8) 3000 (38.9) NET -1300 -1115 Weight (kg) 77.1 77.1 77.1 77.1 77.1 [...] cyanosis. Electronically signed by Steven Dyer MD, [facility] DATE/TIME: 01/02/2014 12:32 Porsche Ramos, PharmD - [...] Fountain PA - 01/02/2014 7:59 AM PDT [facility] CARDIOTHORACIC SURGERY PROGRESS NOTE Pt. Name/Age/: Chaya Chan 73 y.o. 1940 Med. Record Number: [id number] Date of admission: 12/24/2013 POD #9 Procedure: [...] Electronically signed by: Charlie Jacobson PA-C Physician Director Video [facility] Cardiothoracic Surgery 01/02/2014 7:59 [facility] Paloma, Rod Vega (Fritz ), PharmD - [...] Coronary atherosclerosis of unspecified type of vessel, port lions or graft CHIEF COMPLAINT: fatigue, some nausea [...] diphenhydrAMINE, diphenhydrAMINE, diphenhydramine, HYDROcodone-acetaminophen, HYDROcodone-acetaminophen, magnesium hydroxide, yybmzprm-fxedfbvou-shsavbuauk, ondansetron, ondansetron, phenol-menthol, sodium phosphate LABS Recent [...] - 01/01/14 0701/01/14700 - 01/02/14 07 Shift 9146-4800 24 Hour Total 9767-3399 0262-2809 24 Hour Total I N T A [...] cyanosis. Electronically signed by Steven Dyer MD, [facility] DATE/TIME: 01/01/2014 11:55 Shahrzad Grajeda MD - 01/01/2014 6:59 AM PDT [facility] PROGRESS NOTE Pt. Name/Age/: Chaya Chan 73 y.o. 1940 Med. Record Number: [id number] Date of admission: 12/24/2013 Subjective: The patient [...] Electronically signed by: Shahrzad Flores, 01/01/2014 6:59 [facility] ing, Steven Avelar MD - 12/31/2013 11:05 AM PDT PATIENT NAME: Chaya Chan : 1940: AGE: 73 y.o. ADMISSION DATE: 12/24/2013 Hospital Day: Hospital Day: 8 Code Status: Full Code ABBY Cade CARDIOLOGY DAILY PROGRESS NOTE PRIMARY [facility] PROBLEM: Coronary atherosclerosis of unspecified type of vessel, port lions or graft CHIEF COMPLAINT: Nausea and vomiting [...] acetaminophen, bisacodyl, diphenhydrAMINE, diphenhydrAMINE, diphenhydramine, HYDROcodone-acetaminophen, HYDROcodone-acetaminophen, ywjttjph-brhcyuexd-k acitracin, ondansetron, ondansetron, phenol-menthol LABS Recent Labs [...] 12/31/13 0712/31/13 07 - 01/01/14 0700 Shift 6760-4007 24 Hour Total 9244-0243 5880-9935 24 Hour Total I N T A [...] tion. Electronically signed by Steven Dyer MD, [facility] DATE/TIME: 12/31/2013 13:21 Tonia Patel [facility] - 12/31/2013 9:43 AM PDTDrs. Order received: Met with pt who lives with in [place]. Pt states they only have stairs enteri [...] note might be different from the original. [facility] CARDIOTHORACIC SURGERY PROGRESS NOTE Pt. Name/Age/: Chaya Chan 73 y.o. 1940 Med. Record Number: [id number] Date of admission: 12/24/2013 POD # 7 [...] cardiology. Electronically signed by: CASSIE Pandya Physician Director Video [facility] Cardiothoracic Surgery 12/31/2013 7:01 [facility] Addendum: I have reviewed the note [...] signed by: Constantine Barcenas M.D. CardioThoracic Surgery [facility] 12/31/2013 11:27 Steven Nettles MD - 12/30/2013 11:48 AM PDT Cardiology progress NOTE [facility] Cardiology 12/30/2013 Rounding Physician: ABBY Rowland Patient Name: Chaya Chan : 1940 Medical Record: [id number] Hospital Day: Hospital Day: 7 Code Status: Full Code Primary Hospital Problem: Coronary atherosclerosis of unspecified type of vessel, port lions or graft ASSESSMENT AND PLAN CORONARY ARTERY [...] 12/30/13 0712/30/13 07 - 12/31/13 0700 Shift 4971-6943 24 Hour Total 8931-6846 3682-1385 24 Hour Total I N T A [...] acetaminophen, bisacodyl, diphenhydrAMINE, diphenhydrAMINE, diphenhydramine, HYDROcodone-acetaminophen, HYDROcodone-acetaminophen, ibkcfrog-aapkpiwbl-f acitracin, ondansetron, ondansetron, phenol-menthol PHYSICAL EXAMINATION: GENERAL: [...] signed by: ABBY Rowland, DATE/TIME: 12/30/2013 11:48 [facility] CARDIOLOGY Patient was personally examined, chart [...] cyanosis. Electronically signed by Steven Dyer MD, [facility] DATE/TIME: 12/30/2013 14:13 Constantine Almonet MD - 12/30/2013 7:10 AM PDT [facility] Consatntine Barcenas MD PATIENT NAME: Chaya Chan : 1940: AGE: 73 y.o. ADMISSION DATE: 12/24/2013 DAILY PROGRESS NOTE 12/30/2013 6 Days Post-Op Procedure: Procedure(s) with comments: CORONARY ARTERY BYPASS GRAFT - CABG X4, WITH EVH - RIGHT AND LEFT SAPHENOUS VEIN,VOGEL Surgeon(s): MD Brandon Amaya PA Torrey A Vail, PA ASSESSMENT: Sweetser weak and listless yesterday. Agreed and received [...] IV INFUSIONS: SUBJECTIVE: General: alert and oriented Sweetser weak and listless yesterday, only walked "a [...] signed by: Constantine Barcenas M.D. CardioThoracic Surgery [facility] 12/30/2013, 7:10 [...] Name: Chaya Chan : 1940 Medical Record: [id number] Hospital Day: Hospital Day: 6 Code Status: Full Code Primary Hospital Problem: Coronary atherosclerosis of unspecified type of vessel, port lions or graft ASSESSMENT AND PLAN CORONARY ARTERY [...] 0700 12/29/13 07 - 12/30/13 0700 Shift 4868-3670 24 Hour Total 3439-3177 7489-6699 24 Hour Total I N T A [...] acetaminophen, bisacodyl, diphenhydrAMINE, diphenhydrAMINE, diphenhydramine, HYDROcodone-acetaminophen, HYDROcodone-acetaminophen, qnygfcui-jnnmzqgls-s acitracin, ondansetron, ondansetron, phenol-menthol PHYSICAL EXAMINATION: GENERAL: [...] by: Blayne Alonso MD, DATE/TIME: 12/29/2013 9:38 [facility] CARDIOLOGY Edi Garrido MD - 12/29/2013 9:17 AM PDT [facility] CARDIOTHORACIC SURGERY PROGRESS NOTE Pt. Name/Age/: Chaya Chan 73 y.o. 1940 Med. Record Number: [id number] Date of admission: 12/24/2013 Procedure Coronary artery [...] days Electronically signed by: CASSIE Thomas Physician Director Video [facility] Cardiothoracic Surgery 12/29/2013 9:17 [facility] Patient does not want transfusion. There is no clinical indication. Home soon Blayne Montaño MD - 12/28/2013 12:06 PM PDTFormatting of this note might be different from the origin al. Cardiology progress NOTE [facility] 12/28/2013 Rounding Physician: ABBY oRwland Patient Name: Chaya Chan : 1940 Medical Record: [id number] Hospital Day: Hospital Day: 5 Code Status: Full Code Primary Hospital Problem: Coronary atherosclerosis of unspecified type of vessel, port lions or graft ASSESSMENT AND PLAN CORONARY ARTERY [...] 0700 12/28/13 0701 - 12/29/13 0700 Shift 0303-0045 24 Hour Total 1169-9463 2212-0664 24 Hour Total I N T A [...] acetaminophen, bisacodyl, diphenhydrAMINE, diphenhydrAMINE, diphenhydramine, HYDROcodone-acetaminophen, HYDROcodone-acetaminophen, jpbqrped-rdlrlwahp-p acitracin, ondansetron, ondansetron, phenol-menthol PHYSICAL EXAMINATION: GENERAL: [...] signed by: ABBY Rowland, DATE/TIME: 12/28/2013 12:06 [facility] CARDIOLOGY Addendum: I have seen and [...] tranfusion - ef stable. Blayne Alonso MD [facility] Cardiology Edi Garrido MD - 12/28/2013 [...] Coronary atherosclerosis of unspecified type of vessel, port lions or graft CHIEF COMPLAINT: "Better" today - [...] acetaminophen, bisacodyl, diphenhydrAMINE, diphenhydrAMINE, diphenhydramine, HYDROcodone-acetaminophen, HYDROcodone-acetaminophen, qzyuaelg-icsmszrsl-h acitracin, ondansetron, ondansetron, phenol-menthol IMAGING: No results [...] - 12/27/13 0712/27/13700 - 12/28/13 07 Shift 9388-0868 24 Hour Total 5474-3920 9425-8899 24 Hour Total I N T A [...] anticoagulation 2/2 significant anemia. Blayne Alonso MD [facility] Cardiology isronaldo, Sj Campbell MD - 0 12/27/2013 7:10 AM PDT [facility] CARDIOTHORACIC SURGERY PROGRESS NOTE Pt. Name/Age/: Chaya Chan 73 y.o. 1940 Med. Record Number: [id number] Date of admission: 12/24/2013 POD # 3 [...] PT. Electronically signed by: CASSIE Pandya Physician Director Video [facility] Cardiothoracic Surgery 12/27/2013 7:11 [facility] Cheerful and up in chair. Back [...] Coronary atherosclerosis of unspecified type of vessel, port lions or graft CHIEF COMPLAINT: up in chair, [...] diphenhydrAMIN E, diphenhydrAMINE, diphenhydramine, HYDROcodone-acetaminophen, HYDROcodone-acetaminophen, n iwkjeru-wbbzvzuty-twaqtgevxa, ondansetron, ondansetron, phenol-menthol LABS Recent Labs Basename [...] 12/26/13 0700 12/26/13700 - 12/27/13 07 Shift 1458-4374 24 Hour Total 2079-4813 3699-0082 24 Hour Total I N T A [...] Ge MD 12/26/2013 17:55 Sonia Schultz AR SHOP SUPERVISOR - 12/26/2013 10:33 AM PDT [facility] Blood Sugar Management Progress Note Pt. Name/Age/: Chaya Chan 73 y.o. 1940 Date of admission: 12/24/2013 Hospitalized for Coronary atherosclerosis of unspecified type of vessel, port lions or graft Admitting Physician: Sj Viera MD [...] by: ABBY Dean 12/26/2013 10:41 Diabetes team, [facility] Cristino Cade PA - 12/26/2013 7:27 AM PDTFormatting of this note might be different from the orig inal. [facility] Pt. Name/Age/: Chaya Chan 73 y.o. 1940 Med. Record Number: [id number] Date of admission: 12/24/2013 POD #2 Procedure: [...] lung is fairly clear. IMPRESSION: 1. Right product managent intern al jugular line with tip in [...] signed by: Cristino Monsivais PA-C Cardiothoracic Surgery [facility] [address], [address] [place] [address] 12/26/2013 7:27 [facility] Lottie Boone i, ARNP - 12/25/2013 4:17 PM PDTFormatting of this note might be different from the origi nal. PATIENT NAME: Chaya Chan : 1940: AGE: 73 y.o. ADMISSION DATE: 12/24/2013 Hospital Day: Hospital Day: 2 Code Status: Full Code ABBY Farnsworth CARDIOLOGY DAILY PROGRESS NOTE [facility]IMARY [facility] PROBLEM: Coronary atherosclerosis of unspecified type of vessel, port lions or graft CHIEF COMPLAINT: "Back hurts", "tired". [...] diphenhydrAMIN E, diphenhydrAMINE, diphenhydramine, HYDROcodone-acetaminophen, HYDROcodone-acetaminophen, n ezsaaau-unriuutoe-xewyfekadk, ondansetron, ondansetron, phenol-menthol IMAGING: Xr Chest Ap [...] lung is fairly clear. IMPRESSION: 1. Right product managent intern al jugular line with tip in [...] 50% SIMV10 550 PS8 P5 Additional Information PNW365 ETCO2=31 GLUCOSE, RESPIRATORY Collection Time 12/24/131924 Component [...] CABG OK for floor transfer Prior non SD in circ territory last week Very diffuse [...] referral | Outpatient | Routin | A-fib ([facility]) | Ordered: 01/02/2014 | | to Anticoagulation [...] | | | | | PDT | port lions coronary | | | | | | [...] + | [facility] | [address] | [place] [address] | | | [facility] | | | | | [...] + + | [facility] | [address] | [place] [address] | | | [facility] | | | | | LABORATORY [...] + | [facility] | [address] | [place] [address] | | | [facility] | | | | | LABORATORY [...] | TRACEMASTER | | Interval: msHeartrate: bpmP [place]: degQRS [place]: degT Wave [place]: | | | degI: 40 [place]: degT: 40 [place]: degT: 40 [place]: degST [place]: | | | degSeverity: - ABNORMAL ECG -INTERP: SINUS RHYTHMINTERP: LVH | | | WITH SECONDARY REPOLARIZATION ABNORMALITY | | |P [place]: deg | | |QRS [place]: deg | | |T Wave [place]: deg | | |I: 40 [place]: deg | | |T: 40 [place]: deg | | |T: 40 [place]: deg | | |ST [place]: deg | | |Severity: - ABNORMAL ECG [...] + | [facility] | [address] | [place] [address] | [phone] | + + + + + CBC [...] + | [facility] | [address] | [place] [address] | | | [facility] | | | | | [...] + + + | Glucose | 86Comment: Kyrgyz | 65 - 99 mg/dL | [facility] | | | | Diabetes Association | [...] + + | [facility] | [address] | [place] [address] | | | [facility] | | | | | LABORATORY [...] | TRACEMASTER | | Interval: msHeartrate: bpmP [place]: degQRS [place]: degT Wave [place]: | | | degI: 40 [place]: degT: 40 [place]: degT: 40 [place]: degST [place]: | | | degSeverity: - DEFECTIVE ECG -INTERP: ALL 12 LEADS ARE MISSING | | |Heartrate: bpm | | |P [place]: deg | | |QRS [place]: deg | | |T Wave [place]: deg | | |I: 40 [place]: deg | | |T: 40 [place]: deg | | |T: 40 [place]: deg | | |ST [place]: deg | | |Severity: - DEFECTIVE ECG [...] [address] | [place] [address] | [phone] | + + + + + Hemoglobin [...] + | [facility] | [address] | [place] [address] | | | [facility] | | | | | [...] | TRACEMASTER | | Interval: msHeartrate: bpmP [place]: degQRS [place]: degT Wave [place]: | | | degI: 40 [place]: degT: 40 [place]: degT: 40 [place]: degST [place]: | | | degSeverity: - BORDERLINE ECG -INTERP: SINUS RHYTHMINTERP: LEFT | | | AXIS DEVIATIONINTERP: BORDERLINE T ABNORMALITIES, LATERAL LEADS | | |P [place]: deg | | |QRS [place]: deg | | |T Wave [place]: deg | | |I: 40 [place]: deg | | |T: 40 [place]: deg | | |T: 40 [place]: deg | | |ST [place]: deg | | |Severity: - BORDERLINE ECG [...] + + | [facility] | [address] | [place] [address] | [phone] | + + + + + PRODUCT: RBC (12/29/2013 7:49 PM PDT) + + + + + + | Component | Value | Ref Range | Performed | Pathologist | | | | | At | Signature | + + + + + + | Product | RBC | | REFERENCE | | | Code | | | [facility] | | [facility] | | | | [facility] | | | | | [facility] | | | | | | [facility] | | + + + + + + | UNIT ID | [id number] | | REFERENCE | | | | | | [facility] | | | | | [facility] | | | | | | [facility] | | + + + + + + | UNIT ABO | B | | REFERENCE | | | | | | [facility] | | [facility] | | | | | [facility] | | | | | | [facility] | | + + + + + + | UNIT RH | NEG | | REFERENCE | | | | | | [facility] | [facility] | | | | | [facility] | | | | | | [facility] | | + + + + + + | Unit Status | IS | | REFERENCE | | | | | | [facility] | | | [facility] | | | | | [facility] | | | | | | [facility] | | + + + + + + + + | Specimen | + + | | + + + + + | Narrative | Performed At | + + + | Specimen Expiration Date: [id number] | REFERENCE LAB | | | [facility] | [facility] | | | [facility] | + + + + + + + + | Performing | Address | City/State/Zipcode | Phone Number | | Organization | | | | + + + + + | REFERENCE [facility] | [address] | [place] [address] | [phone] | | [facility] | | | | | [facility] [...] | | | | | | [facility] | | | [facility] | | [facility] | | | | | | [facility] | | | | | | [facility] | | + + + + + + | Rh Type | Negative | | REFERENCE | | | | | | [facility] | | [facility] | | | | | [facility] | | | | | | [facility] | | + + + + + + | Antibody | NegativeComment: Patient | | REFERENCE | | | Screen | is remote crossmatch | | [facility] | | | | eligible | | [...] + + + | Specimen Expiration Date: [id number] | REFERENCE [facility] | | | [facility] | | | [facility] | | | [facility] | + + + + + + + + | Performing | Address | City/State/Zipcode | Phone Number | | Organization | | | | + + + + + | REFER[facility] | [address] | [place] [address] | [phone] | | [facility] | | | | | [facility] [...] + + | [facility] | [address] | [place] [address] | | | [facility] | | | | | LABORATORY [...] | TRACEMASTER | | Interval: msHeartrate: bpmP [place]: degQRS [place]: degT Wave [place]: | | | degI: 40 [place]: degT: 40 [place]: degT: 40 [place]: degST [place]: | | | degSeverity: - ABNORMAL ECG -INTERP: SINUS RHYTHMINTERP: LVH | | | WITH SECONDARY REPOLARIZATION ABNORMALITYINTERP: LEFT ATRIAL | | | ABNORMALITY | | |QRS [place]: deg | | |T Wave [place]: deg | | |I: 40 [place]: deg | | |T: 40 [place]: deg | | |T: 40 [place]: deg | | |ST [place]: deg | | |Severity: - ABNORMAL ECG [...] + + | [facility] | [address] | [place] [address] | [phone] | + + + + + ECG 12 lead (12/29/2013 10:59 AM PDT) + + | Specimen | + + | | + + + + + | Narrative | Performed At | + + + | RR Interval: | [facility] | | msP-R Interval: msQRSD Interval: msQT Interval: msQTC | [facility]ACEMASTER | | Interval: msHeartrate: bpmP [place]: degQRS [place]: degT Wave [place]: | | | degI: 40 [place]: degT: 40 [place]: degT: 40 [place]: degST [place]: | | | degSeverity: - ABNORMAL ECG -INTERP: SINUS RHYTHMINTERP: | | | NONSPECIFIC T ABNORMALITIES, LATERAL LEADS | | |P [place]: deg | | |QRS [place]: deg | | |T Wave [place]: deg | | |I: 40 [place]: deg | | |T: 40 [place]: deg | | |T: 40 [place]: deg | | |ST [place]: deg | | |Severity: - ABNORMAL ECG [...] [address] | [place] [address] | [phone] | + + + + + Basic [...] + + + | Glucose | 93Comment: Kyrgyz | 65 - 99 mg/dL | [facility] [...] + | [facility] | [address] | [place] [address] | | | [facility] | | | | | LABORATORY [...] + + | [facility] | [address] | [place] [address] | | | [facility] | | | | | LABORATORY [...] | TRACEMASTER | | Interval: msHeartrate: bpmP [place]: degQRS [place]: degT Wave [place]: | | | degI: 40 [place]: degT: 40 [place]: degT: 40 [place]: degST [place]: | | | degSeverity: - ABNORMAL ECG -INTERP: SINUS RHYTHMINTERP: LVH | | | WITH SECONDARY REPOLARIZATION ABNORMALITY | | |P [place]: deg | | |QRS [place]: deg | | |T Wave [place]: deg | | |I: 40 [place]: deg | | |T: 40 [place]: deg | | |T: 40 [place]: deg | | |ST [place]: deg | | |Severity: - ABNORMAL ECG [...] + + | [facility] | [address] | [place] [address] | [phone] | + + + + + ECG 12 lead (12/28/2013 11:09 AM PDT) + + | Specimen | + + | | + + + + + | Narrative | Performed At | + + + | RR Interval: | [facility] | | msP-R Interval: msQRSD Interval: msQT Interval: msQTC | [facility]ER | | Interval: msHeartrate: bpmP [place]: degQRS [place]: degT Wave [place]: | | | degI: 40 [place]: degT: 40 [place]: degT: 40 [place]: degST [place]: | | | degSeverity: - ABNORMAL ECG -INTERP: SINUS RHYTHMINTERP: | | | NONSPECIFIC INTRAVENTRICULAR CONDUCTION DELAYINTERP: LVH WITH | | | SECONDARY REPOLARIZATION ABNORMALITY | | |QRS [place]: deg | | |T Wave [place]: deg | | |I: 40 [place]: deg | | |T: 40 [place]: deg | | |T: 40 [place]: deg | | |ST [place]: deg | | |Severity: - ABNORMAL ECG [...] + + | [facility] | [address] | [place] [address] | [phone] | + + + + + ECG 12 lead (12/28/2013 5:45 AM PDT) + + | Specimen | + + | | + + + + + | Narrative | Performed At | + + + | RR Interval: | [facility] | | msP-R Interval: msQRSD Interval: msQT Interval: msQTC | TRACEMASTER | | Interval: msHeartrate: bpmP [place]: degQRS [place]: degT Wave [place]: | | | degI: 40 [place]: degT: 40 [place]: degT: 40 [place]: degST [place]: | | | degSeverity: - ABNORMAL ECG -INTERP: ATRIAL FIBRILLATION, V-RATE | | | 81-146INTERP: LEFT AXIS DEVIATIONINTERP: LVH WITH SECONDARY | | | REPOLARIZATION ABNORMALITY | | |QRS [place]: deg | | |T Wave [place]: deg | | |I: 40 [place]: deg | | |T: 40 [place]: deg | | |T: 40 [place]: deg | | |ST [place]: deg | | |Severity: - ABNORMAL ECG [...] | [address] | [place] [address] | [phone] | + + + + + CBC [...] + | MONIKA MELCHOR | [address] | [place] [address] | | | [facility] | | | | | LABORATORY [...] + + | Glucose | 116 (H)Comment: Kyrgyz | 65 - 99 mg/dL | [facility] [...] + + | MONIKA SACRED | [address] | [place] [address] | | | [facility] | | | | | LABORATORY [...] | [facility]ER | | Interval: msHeartrate: bpmP [place]: degQRS [place]: degT Wave [place]: | | | degI: 40 [place]: degT: 40 [place]: degT: 40 [place]: degST [place]: | | | degSeverity: - ABNORMAL ECG -INTERP: SINUS RHYTHMINTERP: LEFT | | | AXIS DEVIATIONINTERP: LEFT VENTRICULAR HYPERTROPHY | | |P [place]: deg | | |QRS [place]: deg | | |T Wave [place]: deg | | |I: 40 [place]: deg | | |T: 40 [place]: deg | | |T: 40 [place]: deg | | |ST [place]: deg | | |Severity: - ABNORMAL ECG [...] + | BASIL RÍOS | [address] | [place] [address] | [phone] | + + + + + ECG 12 lead (12/27/2013 7:56 AM PDT) + + | Specimen | + + | | + + + + + | Narrative | Performed At | + + + | RR Interval: | [facility] | | msP-R Interval: msQRSD Interval: msQT Interval: msQTC | [facility] | | Interval: msHeartrate: bpmP [place]: degQRS [place]: degT Wave [place]: | | | degI: 40 [place]: degT: 40 [place]: degT: 40 [place]: degST [place]: | | | degSeverity: - ABNORMAL ECG -INTERP: ATRIAL FIBRILLATIONINTERP: | | | LEFT AXIS DEVIATIONINTERP: LVH WITH SECONDARY REPOLARIZATION | | | ABNORMALITY | | |QRS [place]: deg | | |T Wave [place]: deg | | |I: 40 [place]: deg | | |T: 40 [place]: deg | | |T: 40 [place]: deg | | |ST [place]: deg | | |Severity: - ABNORMAL ECG [...] [address] | [place] [address] | [phone] | + + + + + POC [...] + + | [facility] | [address] | [place] [address] | | | [facility] | | | | | [...] + + | MONIKA MELCHOR | [address] | [place] [address] | | | [facility] | [...] 26 | 21 - 28 mmol/L | [facility] | | | | | | [facility] | | | | | | MEDICAL | | | | | | CENTER | | | | | | LABORATORY | | + + + + + + | Glucose | 125 (H)Comment: Kyrgyz | 65 - 99 mg/dL | [facility] | | | | [facility] [employer] | [...] + | [facility] SACR[facility] | [address] | [place] [address] | | | [facility] | | | | [...] + | MONIKA MELCHOR | [address] | [place] [address] | | | [facility] | | | | | LABORATORY [...] + + | MONIKA SACRCAYETANO | [address] | [place] [address] | | | [facility] | [...] SACRED | [address] | [place] [address] | | | [facility] | | | | [...] + | [facility] SACR[facility] | [address] | [place] [address] | | | [facility] | | | | | LABORATORY [...] + | MONIKA MELCHOR | [address] | [place] [address] | | | [facility] | | | | | LABORATORY [...] + | [facility] SACR[facility] | [address] | [place] [address] | | | [facility] | | | | [...] SACRED | [address] | [place] [address] | | | [facility] | [...] + | PROVIDEJOHNE RUIZ | [address] | [place] [address] | | | [facility] | | | | | LABORATORY [...] + | MONIKA MELCHOR | [address] | [place] [address] | | | [facility] | | | | | [...] + | [facility]CR[facility] | [address] | [place] [address] | | | [facility] | [...] + | PROVIDENCE SACRED | [address] | [place] [address] | | | [facility] | | | | | [...] + | BLADEGRETCHEN RUIZ | [address] | [place] [address] | | | [facility] | | | | | LABORATORY [...] [address] | [place] [address] | | | [facility] | [...] MELCHOR | [address] | [place] [address] | | | [facility] | | | | | [...] + + | PROVIDEJOHNE SACRED | [address] | [place] [address] | | | [facility] | | | | | LABORATORY [...] + | MONIKA MELCHOR | [address] | [place] [address] | | | [facility] | | | | [...] + | [facility]CR[facility] | [address] | [place] [address] | | | [facility] | [...] SACRED | [address] | [place] [address] | | | [facility] | | | | | [...] + | MONIKA MELCHOR | [address] | [place] [address] | | | [facility] | | | | | LABORATORY [...] + | [facility] | [address] | [place] [address] | | | [facility] | [...] [address] | [place] [address] | | | [facility] | | | | | [...] + | PROVIDEJOHNE SACRED | [address] | [place] [address] | | | [facility] | | | | | LABORATORY [...] + | BLADEGRETCHEN MELCHOR | [address] | [place] [address] | | | [facility] | [...] + | [facility] | [address] | [place] [address] | | | [facility] | [...] + + | MONIKA MELCHOR | [address] | [place] [address] | | | [facility] | | | | | LABORATORY [...] + | PROVIDEJOHNE SACRED | [address] | [place] [address] | | | [facility] | [...] + | [facility] | [address] | [place] [address] | | | [facility] | [...] + | MONIKA MELCHOR | [address] | [place] [address] | | | [facility] | | | | | LABORATORY [...] | TRACEMASTER | | Interval: msHeartrate: bpmP [place]: degQRS [place]: degT Wave [place]: | | | degI: 40 [place]: degT: 40 [place]: degT: 40 [place]: degST [place]: | | | degSeverity: - ABNORMAL ECG -INTERP: SINUS RHYTHMINTERP: LEFT | | | VENTRICULAR HYPERTROPHYINTERP: ANTERIOR ST ELEVATION, PROBABLY DUE | | | TO LVH | | |QRS [place]: deg | | |T Wave [place]: deg | | |I: 40 [place]: deg | | |T: 40 [place]: deg | | |T: 40 [place]: deg | | |ST [place]: deg | | |Severity: - ABNORMAL ECG [...] | + + + + + | WALA MICHOACANO | [address] | [place] [address] | [phone] | + + + + + XR Chest AP Portable (12/25/2013 4:18 AM PDT) + + | Specimen | + + | | + + + + + | Narrative | Performed At | + + + | CHEST, AP PORTABLE CLINICAL INFORMATION: Post open heart | [facility] | | with a chest [...] + + | [facility] | [facility], [address] | [place] [address] | [phone] | | | Shyann | | | [...] + | [facility] | [address] | [place] [address] | | | [facility] | [...] + + | Glucose | 122 (H)Comment: Kyr[place]z | 65 - 99 mg/dL | [facility] | | | | [facility] | [...] + | MONIKA SACRED | [address] | [place] [address] | | | [facility] | | | | | LABORATORY [...] + + | BLADEJOHNRosio RUIZ | [address] | [place] [address] | | | [facility] | [...] + | [facility] | [address] | [place] [address] | | | [facility] | [...] + | BLADEJOHNRosio MELCHOR | [address] | [place] [address] | | | [facility] | | | | | LABORATORY [...] + | MONIKA SACRCAYETANO | [address] | [place] [address] | | | [facility] | | | | | [...] | [address] | [place] [address] | | | [facility] | | | | | [...] + | MONIKA MELCHOR | [address] | [place] [address] | | | [facility] | | | | | LABORATORY [...] + | MONIKA MELCHOR | [address] | [place] [address] | | | [facility] | | | | [...] + | [facility] SA[facility] | [address] | [place] [address] | | | [facility] | [...] + + | MONIKA MELCHOR | [address] | [place] [address] | | | [facility] | | | | | LABORATORY [...] | TRACEMASTER | | Interval: msHeartrate: bpmP [place]: degQRS [place]: degT Wave [place]: | | | degI: 40 [place]: degT: 40 [place]: degT: 40 [place]: degST [place]: | | | degSeverity: - ABNORMAL ECG -INTERP: SINUS RHYTHMINTERP: | | | PROBABLE LVH WITH SECONDARY REPOL ABNRM | | |P [place]: deg | | |QRS [place]: deg | | |T Wave [place]: deg | | |I: 40 [place]: deg | | |T: 40 [place]: deg | | |T: 40 [place]: deg | | |ST [place]: deg | | |Severity: - ABNORMAL ECG - | | |INTERP: SINUS RHYTHM | | |INTERP: PROBABLE LVH WITH SECONDARY REPOL ABNRM | | + + + + + | Transcriptions | + + | [facility] - 12/24/2013 12:00 AM PDT | + + + + + + + | Performing | Address | City/State/Zipcode | Phone Number | | Organization | | | | + + + + + | [facility] | [address] | [place] [address] | [phone] | + + + + + Potassium [...] + + | MONIKA MELCHOR | [address] | [place] [address] | | | [facility] | | | | | LABORATORY [...] [address] | [place] [address] | | | [facility] | | | | | [...] + | MONIKA MELCHOR | [address] | [place] [address] | | | [facility] | | | | | LABORATORY [...] + | MONIKA MELCHOR | [address] | [place] [address] | | | [facility] | | | | | [...] + + + + | Additional | [id number] | | [facility] | | | [...] + | [facility] | [address] | [place] [address] | | | [facility] | | | | | [...] + + | MONIKA MELCHOR | [address] | [place] [address] | | | [facility] | | | | | LABORATORY [...] + + + + + | [facility] | [facility], [address] | [place] [address] | [phone] | | | Shyann | | | [...] + | [facility] | [address] | [place] [address] | | | [facility] | [...] + | MONIKA MELCHOR | [address] | [place] [address] | | | [facility] | | | | | LABORATORY [...] + | [facility] | [address] | [place] [address] | | | [facility] | [...] + | MONIKA MELCHOR | [address] | [place] [address] | | | [facility] | | | | | [...] + | [facility] | [address] | [place] [address] | | | [facility] | [...] + | MONIKA MELCHOR | [address] | [place] [address] | | | [facility] | | | | | LABORATORY [...] + + | MONIKA MELCHOR | [address] | [place] [address] | | | [facility] | | | | | LABORATORY [...] + | [facility] SACR[facility] | [address] | [place] [address] | | | [facility] | [...] + + | MONIKA MELCHOR | [address] | [place] [address] | | | [facility] | | | | | LABORATORY [...] + + | MONIKA MELCHOR | [address] | [place] [address] | | | [facility] | | | | | [...] + | MONIKA MELCHOR | [address] | [place] [address] | | | [facility] | | | | | [...] + + | MONIKA MELCHOR | [address] | [place] [address] | | | [facility] | | | | | LABORATORY [...] + + | MONIKA MELCHOR | [address] | [place] [address] | | | [facility] | | | | [...] + | MONIKA MELCHOR | [address] | [place] [address] | | | [facility] | | | | | LABORATORY [...] + + | [facility] SACR[facility] | [address] | [place] [address] | | | [facility] | | | | | LABORATORY [...] + | [facility] | [address] | [place] [address] | | | [facility] | | | | [...] SACRED | [address] | [place] [address] | | | [facility] | | | | | LABORATORY [...] + + | BLADEGRETCHEN MELCHOR | [address] | [place] [address] | | | [facility] | | | | | [...] + | [facility] | [address] | [place] [address] | | | [facility] | [...] + | MONIKA MELCHOR | [address] | [place] [address] | | | [facility] | | | | | LABORATORY [...] + | [facility] | [address] | [place] [address] | | | [facility] | | | | | LABORATORY | | | | + + + + + documented in this encounter Visit Diagnoses + + | Diagnosis | + + | Coronary artery disease - Primary Coronary atherosclerosis of unspecified type of | | vessel, port lions or graft | + + | Stress hyperglycemia Other abnormal blood chemistry | + + | Coronary atherosclerosis of unspecified type of vessel, port lions or graft | + + | Essential [...] | | | DINNER, First dose on [facility] 12/26/13 | | | | | [...] | | | | | | use [place] 10/325 if ordered. If | | | [...] | | | | | | | 7086-3208 Use NIGHT DOSE for | | | | | | | doses scheduled: HS, 3AM, | | | | | | | Nighttime 7103-1926, | | | | | | + [...] | | | | last modification) on [facility] 12/26/13 | | | | | [...] +---+ | | | + +---+ | nearqlji-utsisjsce-djqevzqtup | | | (NEOSPORIN) [id number] ointment | | | Starting 12/25/13 at 1233, For | | | 1 dose, KEYSHA CHOWDARY: | | | andrade override, | | + +---+ | | | + +---+ + +-------+ + +---+---+ | mzaatfnd-ugxrojksy-snpxfogckg | Given | 12/26/19 | 1 | [...] 8:01 | | | | | ONCE, [facility] 12/26/13 at 0745, For 1 | [...] | | | (after last modification) on [facility] | | | | | | [...]
--- OUTSIDE RECORDS SUMMARY | ~2019-07-30 | XMS | Encounter Summary ---
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 | [facility] | [address] | intervertebral disc | | | | CLINICAL DECISION | [place], | without myelopathy; | | | | [address] | [place] [address] | Degenerative lumbar | | | | [place], [place] | [phone] | spinal stenosis; | | | | [address] | | Lumbar | | | | [phone] | | radiculopathy; | | | | [...] 10/15/181602 Date of Service: 10/15/181601 Status: Signed Steam Box Operator: Rosa Beckman RN (Registered Nurse) All discharge [...] 10/15/181336 Date of Service: 10/15/181336 Status: Signed Steam Box Operator: Rhys Jansen RPH (Pharmacist) Renal Dosing Monitoring: [...] 10/15/187 Date of Service: 10/15/181210 Status: Signed Steam Box Operator: Lorena Luque RN (Registered Nurse) Patient complained [...] NEGATIVE Testing | | | performed at [facility];[address] [place] [address];[place] [address] | | + + + + +---------+ [...] | | | Patient | performed at [facility];[address] | [address] | | | | [address];[place] | | | | | | [address] | | | | + + + [...] | | | | | performed at [facility] | | | | | | [facility];[place], [place] | | | | | | [address] | | | | + + + [...] | | | Basophils | performed at [facility], [address] | [address] | LAB | | | | [address], | | | | | | [place] [address] | | | | + + + [...] | | | | | performed at [facility], [address] | | | | | | [facility], | | | | | | [place] [address] | | | | + + + [...]
--- OUTSIDE RECORDS SUMMARY | ~2019-07-30 | XMS | Encounter Summary ---
Demographics + + + | Address | [address] | | | [place] [address] | + + + | Home Phone [...] Team Providers + +------+ + | Care Network Contract Manager Name | Role | Phone | [...] | | 2013 | Visit | Cardiology [facility] | [address] | disease (Primary | | | | [address] | [address] [place], | Dx); Paroxysmal | | | | [address] [place], [place] | [place] [address] | atrial fibrillation | | | | [address] | [phone] | ([facility]); Benign | | | | [phone] | | essential | | | | | | hypertension; | | | | | | Chronic diastolic | | | | | | CHF (congestive | | | | | | heart failure), NYHA | | | | | | class 2 ([facility]) | +--------+---------+ + + + Social History [...] CHF (congestive heart failure), NYHA class 2 ([facility]) Diastolic CHF - Had post op effusions [...] Coronary artery disease Hyperlipidemia Hypertension Thyroid disease [place] (myocardial infarction) ([facility]) CHF (congestive heart failure) ([facility]) Past Surgical History Procedure Date Coronary angioplasty Tonsillectomy Other surgical history 12/17/2013 CV DIAGNOSTIC CARDIAC CATH performed by Erum Gerardo MD at [facility] CARDIOVASCULAR LA B Coronary artery bypass graft 12/24/2013 CORONARY ARTERY BYPASS GRAFT performed by Sj Viera MD at [facility] MAIN OR Stent placement additional vess [...] contact me. Signed by: Fly Christianson MD [facility] 02/10/2014, 13:54 Patient Care Team: Doug García MD as PCP - General (Pulmonary Disease) documented in this e ncounter Plan of Treatment Not on filedocumented as of this encounter Visit Diagnoses + + | Diagnosis | + + | Coronary artery disease - Primary Coronary atherosclerosis of unspecified type of | | vessel, enterprise or graft | + + | Paroxysmal atrial fibrillation (HCC) Atrial fibrillation | + + | Benign essential hypertension Essential hypertension, benign | + + | Chronic diastolic CHF (congestive heart failure), NYHA class 2 (HCC) | + + documented in this encounter
--- OUTSIDE RECORDS SUMMARY | ~2019-07-30 | XMS | Encounter Summary ---
Demographics + + + | Address | [address] | | | [place] [address] | + + + | Home Phone [...] Team Providers + +------+ + | Care Loom Changeover Operator Name | Role | Phone | [...] pericardiotomy | | 2013 | Visit | [facility] | [address] | syndrome (Primary | | | | Internal Medicine | [place] [address] | Dx); Chronic | | | | [address] | [phone] | diastolic CHF | | | | [place], [place] | | (congestive heart | | | | [address] | | failure), NYHA class | | | | [phone] | | 2 (HCC); Paroxysmal | | [...] vision Extreme drowsiness, confusion, dizziness or fainting 3429-7424 [facility], [address] [place] [address]. All rights reserve d. This information is not intended as a substitute for professional medical care. Always fo llow your healthcare professional's instructions. documented in this encounter Progress Notes Doug García MD - 01/30/2014 12:05 PM PDTFormatting of this note might be different from t he original. [facility] CLINIC NOTE Patient Name: Chaya Chan 73 y.o. Date of : 1940 MR Number: [id number] Date of Visit: 01/30/2014 Patient Active Problem [...] the patient presented to the ED at [facility] with acute severe chest pains. She was promptly transferred to [facility]. She underwent cardiac catheterization on 12/17/13 which [...] 01/02/14. On 01/06/14, the patient presented to [facility] with worsening shortness of breath and was [...] n and was then transferred back to [facility] for amiodarone therapy induct ion. This was [...] Electronically signed by: Doug García 01/30/2014 12:05 [facility] documented in this encou nter Plan [...] + + | [facility] | [facility], [address] | [place] [address] | [phone] | | | [place] | | | [...] of unspecified type of vessel, | | [place] or graft | + + | Hypothyroidism Unspecified hypothyroidism | + + | Hyperlipidemia Other and unspecified hyperlipidemia | + + documented in this encounter
--- OUTSIDE RECORDS SUMMARY | ~2019-07-30 | XMS | Clinical Summary ---
Demographics + + + | Address | [address] | | | [place] [address] | + + + | Home Phone | | + + + | Preferred Language | Unknown | + + + | Marital Status | | + + + | Roman Catholic Affiliation | 1001 | + + + [...] Team Providers + +------+ + | Care Print Production Associate Name | Role | Phone | [...] SAPHENOUS VEIN,AMI/P | | NSTEMI 10/26/13 in [place] Rxd medically; Echo EF 50% with | | inferior hypokinesis08/25/17 nuclear showing moderate reversible | | lateral wall ischemia08/25/17 cardiac cath showing [place] 100% | | RCA, 100% mid LAD, [...] Orders Only | Pulmonology | Sonia Akers, GRILL COOK | | | 2019 | | | | | +--------+ + + + + | 07/27/ | Hospital | | Ronnie Holman | Atrial fibrillation | | 2019 - | Encounter | | MD Carrie | with RVR ([facility]); | | | | | | NSTEMI (non-ST | | 07/29/ | | | | elevated myocardial | | 2019 | | | | infarction) ([facility]); | | | | | | Coronary artery | | | | | | disease, angina | | | | | | presence | | | | | | unspecified, | | | | | | unspecified vessel | | | | | | or lesion type, | | | | | | unspecified whether | | | | | | [place] or | | | | | | [...] ST. | [address] | [place] | [phone] | | [facility] | | [address] | | | - LABORATORY | | [...] [address] | [place] | [phone] | | [facility] | | [address] | | | - LABORATORY | | [...] [address] | [place] | [phone] | | [facility] | | [address] | | | - LABORATORY | | [...] + | [facility] | [address] | [place] | [phone] | | [facility] | | [address] | | | - LABORATORY | | [...] mL/min/1.73m2 | [facility] | | | [facility]UNG[facility]IAN | RATE,ESTIMATED | | MEDICAL | | | | mL/min/1.31o5Ntak than | | CENTER - | | [...] [address] | [place] | [phone] | | [facility] | | [address] | | | - LABORATORY | | [...] | | | | | | [employer] | | | | | [...] 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 [...] Number 451 | | FLOYD Patient Number [id number] Date of Study 07/28/2019 Visit Number | | [id number] Referring Physician SURAJ CHILDERS | | Sap Ppm Consultant Number Date of 1940 Interpreting SJ | [...] | | | | MARIELENA MCKOY MD ([id number]) | | | | | | on [...] ST. | [address] | [place] | [phone] | | [facility] | | [address] | | | - LABORATORY | | [...] [address] | [place] | [phone] | | [facility] | | [address] | | | - LABORATORY | | [...] + | [facility] | [address] | [place] | [phone] | | [facility] | | [address] | | | - LABORATORY | | [...] + | [facility] | [address] | [place], [place] | [phone] | | [facility] | | [address] | | | - LABORATORY | | [...] + | [facility] | [address] | [place] | [phone] | | [facility] | | [address] | | | - LABORATORY | | [...] + | [facility] | [address] | [place] | [phone] | | [facility] | | [address] | | | - LABORATORY | | [...] | mL/min/1.73m2 | [facility] | | | HUNGARIAN | RATE,ESTIMATED | | MEDICAL | | | | mL/min/1.52y4Gthi than | | CENTER - | | [...] [address] | [place] | [phone] | | [facility] | | [address] | | | - LABORATORY | | [...] | | chromogenic agar method. | | [facility] | | | | | | MEDICAL [...] [address] | [place] | [phone] | | [facility] | | [address] | | | - LABORATORY | | [...] +--------+ +---------+--------+ | MEDICARE | MEDICA | [id number] | 08/17/19 | [phone] | | Medica | | | RE | | 16-Pre | 5 | | re | | | PART A | | sent | | | | | | AND B | | | | | | + +--------+ +--------+ +---------+--------+ | AARP | AARP | [id number] | 07/17/19 | [phone] | | Indemn [...] Person | Self | [birth year] | [address] | | | al/Fam | | 1941 | [phone] | [place], | | | [place] | | | [address] (Home) | [place] [address] | | | | | | [phone] | | | | | | | 5 (Work) | | + +--------+ +--------+ + + Advance Directives + + + + + | Type | Date Recorded | Patient | Explanation | | | | Clothing Room Supervisor | | + + + + + | Power of | | | | | Grill Attendant | | | | + + + [...]
--- OUTSIDE RECORDS SUMMARY | ~2019-07-30 | XMS | Encounter Summary ---
Demographics + + + | Address | [address] | | | [place] [address] | + + + | Home Phone | | + + + | Preferred Language | Unknown | + + + | Marital Status | | + + + | Baptism Affiliation | 1001 | + + + | Race | Unknown | + + + | Ethnic Group | Unknown | + + + Author + + + | Author | [facility] | | | and [place] | + + + | Organization | [facility] [...] Team Providers + +------+ + | Care Dry Kiln Feeder Name | Role | Phone | + [...] | [address] | [address] | | | | | [address] [place] [address] | [address] [place] | | | | | [address] | [phone] | | | | | [phone] | | | +--------+--------+ + + + [...]
--- OUTSIDE RECORDS SUMMARY | ~2019-07-30 | XMS | Encounter Summary ---
Demographics + + + | Address | [address] | | | [place] [address] | + + + | Home Phone | | + + + | Preferred Language | Unknown | + + + | Marital Status | | + + + | Methodist Affiliation | 1001 | + + + [...] Team Providers + +------+ + | Care Pastry Assistant Name | Role | Phone | + +------+ + | Doug García MD | PCP | | + +------+ + Reason for Referral Physical Medicine (Routine) +--------+ + + + + + | Status | Reason | Specialty | Diagnoses / | Referred By | Referred To | | | | | Procedures | Contact | Contact | +--------+ + + + + + | Closed | Specialty | Physical | Diagnoses | Ricky, | [facility] Therapy | | | Services | Therapy / | Benign | MD Doug | [address] | | | Required | Rehabilitatio | paroxysmal | [address] | | | | n | positional | [address] | [place], [place] | | | | | vertigo, | Ave. | [address] | | | | | unspecified | [place], [place] | Phone: | | | | | laterality | [address] | [phone] | | | | | | Phone: | Fax: | | | | | | [phone] | [phone] | | | | | | Fax: | | | | | | | [phone] | | +--------+ + + + + + Reason for Visit + + + | Reason | Comments | + + + | Follow-up | | + + + Encounter Details +--------+---------+ + + + | Date | Type | Department | Care Team | Description | +--------+---------+ + + + | 08/17/ | Office | Alejandra HOLLINS | Doug García MD | Cerebrovascular | | 2018 | Visit | [facility] | [address] | accident (CVA) due | | | | Internal Medicine | [place] [address] | to occlusion of | | | | [address] | [phone] | right middle | | | | [place], [place] | | cerebral artery | | | | [address] | | ([facility]) (Primary Dx); | | | | [phone] | | Benign paroxysmal | | | | | | positional vertigo, | | | | | | unspecified | | | | | | laterality; History | | | | | | of stroke; Coronary | | | | | | artery disease | | | | | | involving [place] | | | | | | coronary artery of | | | | | | [place] heart without | | | | | | angina pectoris; | | | | | | Benign essential | | | | | | hypertension; | | | | | | Obstructive sleep | | | | | | apnea; Paroxysmal | | | | | | atrial fibrillation | | | | | | ([facility]) | +--------+---------+ + + + [...] + + + | Blood Pressure | 133/65 | 08/17/2017 8:12 AM | | | | | PST | | + + + + + | Pulse | 77 | 08/17/2017 8:12 AM | | | | | PST | | + + + + + | Temperature | - | - | | + + + + + | Respiratory Rate | 20 | 08/17/2017 8:12 AM | | | | | PST | | + + + + + | Oxygen Saturation | 96% | 08/17/2017 8:12 AM | | | | | PST | | + + + + + | Inhaled Oxygen | - | - | | | Concentration | | | | + + + + + | Weight | 78.5 kg (173 lb) | 08/17/2017 8:12 AM | | | | | PST | | + + + + + | Height | - | - | | + + + + + | Body Mass Index | 28.79 | 11/10/2016 9:22 AM | | | [...] encounter Progress Notes Doug García MD - 08/17/2017 8:20 AM PSTFormatting of this note might be different from t he original. [facility] CLINIC NOTE Patient Name: Chaya Chan 76 y.o. Date of : 1940 MR Number: [id number] Date of Visit: 08/17/2017 Patient Active Problem List Diagnosis Hypothyroidism Hyperlipidemia [...] artery stenosis Dizziness Bilateral carotid artery disease Cerebrovascular accident (CVA) due to occlusion of right middle cerebral artery History of stroke Subjective: Chaya Chan is a 76 y.o. female patient here today for follow up. She is accompanied by her and her daughter who is a nurse at [employer]. Few weeks ago, th e daughter had communicated to me about her concerns but her mother. Apparently, the patie nt had been experiencing severe headaches and on at least one occasion, she was noted to hav e slight left facial droop. Patient also has had episodes of dizziness especially after sh e takes either her hydrochlorothiazide in the morning or her metoprolol in the evening. The patient does have chronic intermittent dizziness which we have attributed to BPPV in the pa st. Suspected TIA/CVA. I ordered an MRI of the brain which was done on 07/18/17 and that marii kyle confirmed an area of possible small subacute or acute infarcts in the right parietal snider bcortical and the frontoparietal area so the brain. Patient has marked chronic microvascula r disease. 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 Patient already on aspir in and her blood pressure has been under good control. I did decrease her hydrochlorothiazi de dose of 12.5 mg daily. She feels fine now. Denies any headaches, still gets occasionall y dizzy, relieved by meclizine. She denies any chest pains or shortness of breath. She continues to use her CPAP regularly, averages 7 hours of sleep with the CPAP on. No s noring while on CPAP. No excessive daytime sleepiness. Patient's medications, allergies, past medical, surgical, social and family histories were reviewed and updated as appropriate. Current Medications: Medication Sig Ascorbic Acid (VITAMIN C) 1000 MG tablet Take 1,000 mg by mouth Daily. Capsicum, Cayenne, (CAYENNE PEPPER PO) Take by mouth Daily. Coenzyme Q10 (COQ-10 PO) Take by mouth Daily. cyanocobalamin (VITAMIN B-12) 50 MCG tablet Take 50 mcg by mouth Daily. hydroCHLOROthiazide 12.5 mg tablet Take 1 tablet by mouth Daily. levothyroxine 100 mcg tablet Take 1 tablet daily before breakfast magnesium, as oxide, 250 MG tablet Take 250 mg by mouth 3 times daily. meclizine (ANTIVERT) 25 mg tablet Take 1 tablet by mouth every 6 hours as needed. metoprolol succinate (TOPROL-XL) 50 mg 24 hr tablet Take 1 tablet by mouth Daily. nitroglycerin 0.[address] 1 tablet under the tongue every 5 minutes as neede d for Chest pain. Nutritional Supplements Take by mouth Daily. potassium 99 mg tablet Take 99 mg by mouth Daily. thyroid (NATURE-THROID, WESTHROID) 32.5 MG TABS Take 32.5 mg by mouth [...] earache, no sore throat Cardiovascular - no palpitations Respiratory - exertional dyspnea, no [...] intolerance, no excessive sweating Skin - no rash, no concerning skin lesions Neurological - rare headaches, no tremors, dizziness, no syncope Psychiatric - no anxiety, no depression, occasional insomnia Objective: BP 133/65 | Pulse 77 | Resp 20 | Wt 78.5 kg (173 lb) | SpO2 96% | BMI 28.79 kg/m Gen Liang - alert, no distress, [...] and all orders for this visit: 1. Recent cerebrovascular accident (CVA), right middle cerebral artery area 2. Benign paroxysmal positional vertigo 3. History of stroke 4. Coronary artery disease involving [place] coronary artery of [place] heart without angina pectoris 5. Benign essential hypertension 6. Obstructive sleep apnea 7. Paroxysmal atrial fibrillation PLAN: Continue with aspirin. I would recommend adding clopidogrel but she has had reactions to t hat medication in the past. Continue to optimize blood pressure control. Will decrease the metoprolol succinate dose to 25 mg daily so as to prevent hypotension which would result in cerebral hypoperfusion. Refer to physical therapy for management of benign persistent positional vertigo. Continue to use her CPAP. Continue other current medications. Follow-up in 6 months. Electronically signed by: Doug García 08/17/2017 13:55 [facility]ron[facility] signed by Doug García MD at 9:20 PM PSTdocumented in this encounter Plan of Treatment + + +--------+ + + | Name | Type | Priori | Associated Diagnoses | Order Schedule | | | | ty | | | + + +--------+ + + | Ambulatory referral | Outpatient | Routin | Benign paroxysmal | Ordered: 08/17/2017 | | to Physical Therapy | Referral | e | positional vertigo, | | | | | | unspecified | | | | | | laterality | | + + +--------+ + + documented as of this encounter Visit Diagnoses + + | Diagnosis | + + | Cerebrovascular accident (CVA) due to occlusion of right middle cerebral artery (HCC) | | - Primary | + + | Benign paroxysmal positional vertigo, unspecified laterality | + + | History of stroke Transient ischemic attack (TIA), and cerebral infarction without | | residual deficits | + + | Coronary artery disease involving [place] coronary artery of [place] heart without | | angina pectoris | + + | Benign essential hypertension Essential hypertension, benign | + + | Obstructive sleep apnea Obstructive sleep apnea (adult) (pediatric) | + + | Paroxysmal atrial fibrillation (HCC) Atrial fibrillation | + + documented in this encounter"
--- OUTSIDE RECORDS SUMMARY | ~2019-07-30 | XMS | Encounter Summary ---
Demographics + + + | Address | [address] | | | [place] [address] | + + + | Home Phone | | + + + | Preferred Language | Unknown | + + + | Marital Status | | + + + | Denominational Affiliation | 1001 | + + + | Race | Unknown | + + + | Ethnic Group | Unknown | + + + Author + + + | Author | [facility] | | | and [place] | + + + | Organization | [facility] | | [...] Team Providers + +------+ + | Care Wafer Line Worker Name | Role | Phone | + [...] | | | | | | | [place] | | | | | | | coronary | | | | | | | artery | | | | | | | Coronary | | | | | | | atherosclero | | | | | | | sis of | | | | | | | [place] | | | | | | | coronary | | | | | | | artery | | | | | | | Procedures | | | | | | | CT CABG, | | | | | | [...] + + + + | 12/23/ | Preadmit | [facility] | Sj Viera, | Left without seen | | 2014 | Visit | [facility] | [address] | | | | | [facility] | [place] [address] | | | | | [address] | [phone] | | | | | [place], [place] | | | | | | [address] | | | | | | [phone] | | | +--------+ + + + [...] + + + | Blood Pressure | - | - | | + [...] + + + + | Weight | 74.8 kg (165 lb) | 12/23/2013 1:30 PM | | | | | PDT | | + + + + + | Height | 165.1 cm (5' 5") | 12/23/2013 1:30 PM | | | | | PDT | | + + + + + | Body Mass Index | 27.46 | 12/23/2013 1:30 PM | | | | | PDT [...] + + | PTT | Routin | 12/23/2013 | | Results for this | | | e | 1:58 PM | | procedure are in the | | | | PDT | | results section. | + +--------+ + + + | PROTIME INR | Routin | 12/23/2013 | | Results for this | | | e | 1:58 PM | | procedure are in the | | | | PDT | | results section. | + +--------+ + + + | CBC NO DIFFERENTIAL | Routin | 12/23/2013 | | Results for this | | | e | 1:58 PM | | procedure are in the | | | | PDT | | results section. | + +--------+ + + + | TYPE AND SCREEN | Routin | 12/23/2013 | | Results for this | | | e | 1:58 PM | | procedure are in the | | | | PDT | | results section. | + +--------+ + + + | HEMOGLOBIN A1C | Routin | 12/23/2013 | | Results for this | | | e | 1:58 PM | | procedure are in the | | | | PDT | | results section. | + +--------+ + + + | BASIC METABOLIC | Routin | 12/23/2013 | | Results for this | | PANEL | e | 1:58 PM | | procedure are in the | | | | PDT | | results section. | + +--------+ + + + | URINALYSIS WITH | Routin | 12/23/2013 | | Results for this | | MICROSCOPIC WITH | e | 1:51 PM | | procedure are in the | | CULTURE IF INDICATED | | PDT | | results section. | + +--------+ + + + documented in this encounter Results XR Chest PA and Lateral (12/23/2013 2:09 PM PDT) + + | Specimen | + + | | + + + + + | Narrative | Performed At | + + + | CHEST TWO VIEWS CLINICAL INFORMATION: Pre operative | [facility] | | coronary artery bypass graft surgery December 24, 2013. COMPARISON: | | | 12/15/2013 and other priors FINDINGS: Heart, lungs and vessels | | | normal. No pneumothorax, pleural effusion or adenopathy. No | | | significant bone abnormality. IMPRESSION: Negative chest. | | + + + + + | Procedure Note | + + | Carlos Martínez Results In - 12/23/2013 3:06 PM PDT [...] + + + + + | [facility] | [facility], [address] | [place] [address] | [phone] | | | Shyann | | | + + + + + Type and Screen (12/23/2013 1:58 PM PDT) + + + + + + | Component | Value | Ref Range | Performed | Pathologist | | | | | At | Signature | + + + + + + | ABO | B | | REFERENCE | | | | | | LAB [place] | | | | | | [facility] | | | | | | [facility] | | | | | | [facility] | | | | | | [facility] | | + + + + + + | Rh Type | Negative | | REFERENCE | | | | | | LAB [place] | | | | | | [facility] | | | | | | [facility] | | | | | | B[facility] | | | | | | [facility] | | + + + + + + | Antibody | NegativeComment: Patient | | REFERENCE | | | Screen | is remote crossmatch | | LAB [place] [facility] | | | | eligible | | [...] + + + | Specimen Expiration Date: [id number] | REFERENCE LAB | | | [place] [facility] | | | [facility] | | | [facility] | + + + + + + + + | Performing | Address | City/State/Zipcode | Phone Number | | Organization | | | | + + + + + | REFERENCE LAB | [address] | [place] [address] | [phone] | | [place] [facility] | | | | | [facility] BLOOD | | | | | CENTER | | | | + + + + + PTT (12/23/2013 1:58 PM PDT) + + + + + + | Component | Value | Ref Range | Performed | Pathologist | | | | | At | Signature | + + + + + + | aPTT, | 29Comment: Deep venous | 26 - 36 sec [...] + + + | aPTT, Pop | 31Comment: Performed at | sec | [facility] | | | Mean | [place] | | [facility] | | | | [facility], [address] | | HEART | | | | [place] [address] | | MEDICAL | | | | [...] + + | MONIKA MELCHOR | [address] | [place] [address] | | | [facility] | | | | | LABORATORY | | | | + + + + + Theron INR (12/23/2013 1:58 PM PDT) + + + + + + | Component | Value | Ref Range | Performed | Pathologist | | | | | At | Signature | + + + + + + | Prothrombin | 12.9 | 10.9 - 14.8 sec | [facility] [...] | | | | range: 2.5 to | | CENTER | | | | 3.5Performed at | | LABORATORY | | | | [place] | | | | | | [facility], [address] | | | | | | [address] [place] [address] | | | | + + + + + + + + | Specimen | + + | Blood specimen | | (specimen) | + + + + + + + | Performing | Address | City/State/Zipcode | Phone Number | | Organization | | | | + + + + + | [facility] | [address] | [place] [address] | | | [facility] | | | | | LABORATORY | | | | + + + + + Hemoglobin A1C (12/23/2013 1:58 PM PDT) + + + + + [...] | | | | | [address] [facility], | | | | | | [place] [address] | | | | + + + + + + + + | Specimen | + + | Blood specimen | | (specimen) | + + + + + + + | Performing | Address | City/State/Zipcode | Phone Number | | Organization | | | | + + + + + | [facility] | [address] | [place] [address] | | | [facility] | | | | | LABORATORY | | | | + + + + + CBC no Differential (12/23/2013 1:58 PM PDT) + + + + + + | Component | Value | Ref Range | Performed | Pathologist | | | | | At | Signature | + + + + + + | WBC | 6.6 | 3.8 - 11.0 K/uL | [facility] | | | | | | [facility] | | | | | | HEART | | | | | | MEDICAL | | | | | | CENTER | | | | | | LABORATORY | | + + + + + + | RBC | 3.89 | 3.70 - 5.10 | [facility] | | | | | M/uL | [facility] | | | | | | HEART | | | | | | MEDICAL | | | | | | CENTER | | | | | | LABORATORY | | + + + + + + | Hemoglobin | 12.3 | 11.3 - 15.5 | [facility] | | | | | g/dL | [facility] | | | | | | HEART | | | | | | MEDICAL | | | | | | CENTER | | | | | | LABORATORY | | + + + + + + | Hematocrit | 35.7 | 34.0 - 46.0 % | [facility] | | | | | | [facility] | | | | | | HEART | | | | | | MEDICAL | | | | | | CENTER | | | | | | LABORATORY | | + + + + + + | MCV | 91.7 | 80.0 - 100.0 fL | [facility] | | | | | | [facility] | | | | | | HEART | | | | | | MEDICAL | | | | | | CENTER | | | | | | LABORATORY | | + + + + + + | MCH | 31.5 | 27.0 - 34.0 pg | [facility] | | | | | | [facility] | | | | | | HEART | | | | | | MEDICAL | | | | | | CENTER | | | | | | LABORATORY | | + + + + + + | MCHC | 34.3 | 32.0 - 35.5 | [facility] | | | | | g/dL | [facility] | | | | | | HEART | | | | | | MEDICAL | | | | | | CENTER | | | | | | LABORATORY | | + + + + + + | RDW-CV | 13.1 | 11.0 - 15.5 % | [facility] | | | | | | [facility] | | | | | | HEART | | | | | | MEDICAL | | | | | | CENTER | | | | | | LABORATORY | | + + + + + + | Platelet | 160Comment: Performed at | 150 - 400 K/uL | [facility] | | | Count | [place] | | [facility] | | | | [facility], [address] | | HEART | | | | [place] [address] | | MEDICAL | | | | [...] [facility] | [address] | [place] [address] | | | [facility] | | | | | LABORATORY | | | | + + + + + Basic Metabolic Panel (12/23/2013 1:58 PM PDT) + + + + + [...] + + + + | Cl | 93 (L) | 99 - 109 mmol/L | [facility] | | | | | | [facility] | | | | | | HEART | | | | | | MEDICAL | | | | | | CENTER | | | | | | LABORATORY | | + + + + + + | CO2 | 29 (H) | 21 - 28 mmol/L | [facility] | | | | | | [facility] | | | | | | HEART | | | | | | MEDICAL | | | | | | CENTER | | | | | | LABORATORY | | + + + + + + | Glucose | 102 (H)Comment: Micronesian | 65 - 99 mg/dL | [facility] | | | | Diabetes Association | [...] + + + + | Creatinine | 1.00Comment: IDMS | 0.50 - 1.00 | [facility] [...] + + | Estimated | 54 (L)Comment: GFR <60: | >60 | [facility] [...] | | | | calculated GFR by | | | | | | 1.210Performed at | | | | | | [facility] | | | | | | [facility], [address] | | | | | | [address] [place] [address] | | | | + + + + + + + + | Specimen | + + | Blood specimen | | (specimen) | + + + + + + + | Performing | Address | City/State/Zipcode | Phone Number | | Organization | | | | + + + + + | [facility] | [address] | [place] [address] | | | [facility] | | | | | LABORATORY | | | | + + + + + Urinalysis with Microscopic with Culture if Indicated (12/23/2013 1:51 PM PDT) + + + + + + | Component | Value | Ref Range | Performed | Pathologist | | | | | At | Signature | + + + + + + | Color, | Yellow | | [facility] | | | Urine | | | [facility] | | | [...] | | | Urine | | | [facility] | | | | | | HEART | | | | | | MEDICAL | | | | | | CENTER | | | | | | LABORATORY | | + + + + + + | Bilirubin, | Negative | Negative | [facility] | | | Urine | | | [facility] | | | | | | HEART | | | | | | MEDICAL | | | | | | CENTER | | | | | | LABORATORY | | + + + + + + | Ketones, | Negative | Negative mg/dL | [facility] | | | Urine | | | [facility] | | | | | | HEART | | | | | | MEDICAL | | | | | | CENTER | | | | | | LABORATORY | | + + + + + + | Specific | 1.004 | 1.001 - 1.030 | [facility] | | | [place] | | | [facility] | | | | | | HEART | | | | | | MEDICAL | | | | | | CENTER | | | | | | LABORATORY | | + + + + + + | pH, Urine | 6.5 | 5.0 - 7.5 | [facility] | [...] | | | Urine | | | [facility] | | | | | | HEART | | | | | | MEDICAL | | | | | | CENTER | | | | | | LABORATORY | | + + + + + + | Urobilinoge | <2.0 | <2.0 mg/dL | [facility] | | | n, Urine | | | [facility] | | | | | | HEART | | | | | | MEDICAL | | | | | | CENTER | | | | | | LABORATORY | | + + + + + + | Nitrite, | Negative | Negative | [facility] | | | Urine | | | [facility] | | | | | | HEART | | | | | | MEDICAL | | | | | | CENTER | | | | | | LABORATORY | | + + + + + + | Blood, | Negative | Negative | [facility] | | | Urine | | | [facility] | | | | | | HEART | | | | | | MEDICAL | | | | | | CENTER | | | | | | LABORATORY | | + + + + + + | Leukocyte | Negative | Negative | [facility] | | | Esterase, | | | [facility] | | | Urine | | | HEART | | | | | | MEDICAL | | | | | | CENTER | | | | | | LABORATORY | | + + + + + + | WBC UA | 1 | <6 /hpf | [facility] | | | | | | [facility] | | | | | | HEART | | | | | | MEDICAL | | | | | | CENTER | | | | | | LABORATORY | | + + + + + + | RBC UA | <1 | <6 /hpf | [facility] | | | | | | [facility] | | | | | | HEART | | | | | | MEDICAL | | | | | | CENTER | | | | | | LABORATORY | | + + + + + + | BACTERIA UA | None seen | /hpf | [facility] | | | | | | [facility] | | | | | | HEART | | | | | | MEDICAL | | | | | | CENTER | | | | | | LABORATORY | | + + + + + + | SQUAMOUS | Not clinically | /lpf | [facility] | | | EPITHELIAL | significant.Comment: | | [facility] | | | UA | Healthy individuals show | | HEART | | | | up to FEW squamous | | MEDICAL | | | | epithelial cells in the | | CENTER | | | | urine, depending on | | LABORATORY | | | | collection method. | | | | + + + + + + | MUCUS UA | Present (A) | None seen /lpf | [facility] | | | | | | [facility] | | | | | | HEART | | | | | | MEDICAL | | | | | | CENTER | | | | | | LABORATORY | | + + + + + + | Culture | Culture not | Culture not | [facility] | | | Indicated | indicatedComment: | indicated | [facility] | | | | Performed at [place] | | HEART | | | | [facility] | | MEDICAL | | | | [place], [address] | | CENTER | | | | [place] [address] | | LABORATORY | | + + + + + + + + | Specimen | + + | Urine specimen | | (specimen) - Urine, | | Clean Catch | + + + + + + + | Performing | Address | City/State/Zipcode | Phone Number | | Organization | | | | + + + + + | [facility] | [address] | [place] [address] | | | [facility] | | | | | LABORATORY | | | | + + + + + documented in this encounter Visit Diagnoses Not on filedocumented in this encounter
--- OUTSIDE RECORDS SUMMARY | ~2019-07-30 | XMS | Encounter Summary ---
Demographics + + + | Address | [address] | | | [place] [address] | + + + | Home Phone | | + + + | Preferred Language | Unknown | + + + | Marital Status | | + + + | Baptism Affiliation | 1001 | + + + | Race | Unknown | + + + | Ethnic Group | Unknown | + + + Author + + + | Author | [facility] | | | and [place] | + + + | Organization | [facility] | | [...] Team Providers + +------+ + | Care Tap Out Operator Name | Role | Phone | [...] | +--------+ + + + + | 12/15/ | Emergency | [place] | Adrian Sawyer, | Chest pain (Primary | | 2013 - | | [facility] | MD [address] | Dx); NSTEMI (non-ST | | | | EMERGENCY CENTER | Ave. [place], [place] | elevated myocardial | | 12/16/ | | [address] | [address] | infarction) ([facility]); | | 2013 | | [place], [place] | | CORONARY ARTERY | | | | [address] | | DISEASE | | | | [phone] | | | +--------+ + + + [...] + + + | Blood Pressure | 118/74 | 12/16/2013 12:28 AM | | | | | PDT | | + + + + + | Pulse | 80 | 12/16/2013 12:28 AM | | | | | PDT | | + + + + + | Temperature | 36.3 C (97.4 F) | 12/15/2013 9:33 PM | | | | | PDT | | + + + + + | Respiratory Rate | 18 | 12/16/2013 12:28 AM | | | | | PDT | | + + + + + | Oxygen Saturation | 97% | 12/16/2013 12:28 AM | | | | | PDT | | + + + + + | Inhaled Oxygen | - | - | | | Concentration | | | | + + + + + | Weight | 74.8 kg (165 lb) | 12/15/2013 9:33 PM | | | | | PDT | | + + + + + | Height | 165.1 cm (5' 5") | 12/15/2013 9:33 PM | | | | | PDT | | + + + + + | Body Mass Index | 27.46 | 12/15/2013 9:33 PM | | | | | PDT | | + + + + + documented in this encounter Medications at Time [...] tablet by | 30 | 0 | 11/28/19 | | | (LIPITOR) 80 MG | mouth nightly. | tablet | | 14 | 4 | | tabletIndications: | | | | | | | Hyperlipidemia | | | | | | + + + +---------+ + + | B | once a day | | 0 | 04/06/20 | | | Uvjcees-Qxdhmn-FL | | | | 11 | 4 | | ( VITAMIN B | | | | | | | 50/B-COMPLEX) TABS | | | | | | + + + +---------+ + + | clopidogrel | Take 75 mg by mouth | | 0 | 10/29/19 | | | (PLAVIX) 75 mg | Daily. | | | 14 | 4 | [...] tablet by | 60 | 3 | 12/12/19 | | | tartrate (LOPRESSOR) | mouth 2 times daily. | tablet | | 14 | 4 | | 25 mg | | | [...] XR CHEST AP PORTABLE | STAT | 12/15/2013 | | Results for this | | | | 10:49 PM | | procedure are in the | | | | PDT | | results section. | + +--------+ + + + | RT PULSE OXIMETRY, | Routin | 12/15/2013 | | | | CONTINUOUS | e | 9:41 PM | | | | | | PDT | | | + +--------+ + + + | NT-PRO BNP | STAT | 12/15/2013 | | Results for this | | | | 9:41 PM | | procedure are in the | | | | PDT | | results section. | + +--------+ + + + | TROPONIN I | STAT | 12/15/2013 | | Results for this | | | | 9:41 PM | | procedure are in the | | | | PDT | | results section. | + +--------+ + + + | CK-MB | STAT | 12/15/2013 | | Results for this | | | | 9:41 PM | | procedure are in the | | | | PDT | | results section. | + +--------+ + + + | PTT | STAT | 12/15/2013 | | Results for this | | | | 9:41 PM | | procedure are in the | | | | PDT | | results section. | + +--------+ + + + | PROTIME INR | STAT | 12/15/2013 | | Results for this | | | | 9:41 PM | | procedure are in the | | | | PDT | | results section. | + +--------+ + + + | CBC WITH | STAT | 12/15/2013 | | Results for this | | DIFFERENTIAL | | 9:41 PM | | procedure are in the | | | | PDT | | results section. | + +--------+ + + + | COMPREHENSIVE | STAT | 12/15/2013 | | Results for this | | METABOLIC PANEL | | 9:41 PM | | procedure are in the | | | | PDT | | results section. | + +--------+ + + + documented in this encounter Results ECG 12 lead (12/16/2013 9:19 AM PDT) + + + | Narrative | Performed At | + + + | Donald Mendiola MD 12/16/2013 9:19 Abnormal ECG. Normal | | | sinus rhythm. Left axis deviation. Left intraventricular | | | conduction delay. Possible left anterior fascicular block. | | | Nonspecific ST - T wave changes. Since the prior tracing of | | | March 31, 2011, the anterolateral ST-T wave changes noted on the | | | prior tracing are less evident. | | + + + + + | Procedure Note | + + | Donald Mendiola MD - 12/16/2013 9:16 AM PDT Abnormal ECG. Normal sinus rhythm. | | Left axis deviation. Left intraventricular conduction delay. Possible left anterior | | fascicular block. Nonspecific ST - T wave changes. Since the prior tracing of March | | 2010, the anterolateral ST-T wave changes noted on the prior tracing are less | | evident. | + + XR Chest AP Portable (12/15/2013 10:49 PM PDT) + + | Specimen | + + | | + + + + + | Narrative | Performed At | + + + | CHEST X-RAY PORTABLE ONE VIEW CLINICAL INFORMATION: Chest | [facility] | | pain. COMPARISON: 12/07/2011 FINDINGS: The bones are | | | unremarkable. Heart size is mildly enlarged. Lungs are mildly | | | hyperinflated. No abnormal opacities or effusions. IMPRESSION: | | | Stable chest x-ray. No change compared to previous. | | + + + + + | Procedure Note | + + | Mauricio, Rad Results In - 12/15/2013 11:03 PM PDT | | | | CHEST X-RAY PORTABLE ONE VIEW | | | | CLINICAL INFORMATION: | | Chest pain. | | | | COMPARISON: | | 12/07/2011 | | | | FINDINGS: | | The bones are unremarkable. Heart size is mildly enlarged. Lungs are | | mildly hyperinflated. No abnormal opacities or effusions. | | | | IMPRESSION: | | Stable chest x-ray. No change compared to previous. | + + + + + + + | Performing | Address | City/State/Zipcode | Phone Number | | Organization | | | | + + + + + | [facility] | [facility], [address] | [place] [address] | [phone] | | | [place] | | | + + + + + PTT (12/15/2013 9:41 PM PDT) + +-------+ + + + | Component | Value | Ref Range | Performed | Pathologist | | | | | At | Signature | + +-------+ + + + | aPTT, | 24 | 21 - 32 sec | [facility] | | | Patient | | | [facility] | | | [...] + + | MON[facility]A [facility] | [address] | [place] [address] | | | [facility] | | | | | LABORATORY | | | | + + + + + Protime INR (12/15/2013 9:41 PM PDT) + + + + + + | Component | Value | Ref Range | Performed | Pathologist | | | | | At | Signature | + + + + + + | Prothrombin | 10.9 | 8.9 - 11.7 sec | [facility] | | | Time | | | [facility] | | | | | | [facility] | | | | [facility] | | | | | | LABORATORY | | + + + + + + | INR | 1.1Comment: Usual oral | 0.9 - 1.3 | [facility] | | | | anticoagulant range: 2.0 | | [facility] | | | | to 3.0 High level | | [facility] | | | | oral anticoagulant | | [facility]OS[facility] | | | | range: 2.5 to 3.5 | | LABORATORY | | + + + + + + + + | Specimen | + + | Blood specimen | | (specimen) | + + + + + + + | Performing | Address | City/State/Zipcode | Phone Number | | Organization | | | | + + + + + | [facility] | [address] | [place] [address] | | | [facility] | | | | | LABORATORY | | | | + + + + + NT-PRO BNP (12/15/2013 9:41 PM PDT) + +---------+ + + + | Component | Value | Ref Range | Performed | Pathologist | | | | | At | Signature | + +---------+ + + + | NT-proBNP | 558 (H) | <125 pg/mL | [facility] | | | | [...] + | MON[facility] | [address] [facility] | [place] [address] | | | [facility] | | | | | LABORATORY | | | | + + + + + Troponin I (12/15/2013 9:41 PM PDT) + + + + + + | Component | Value | Ref Range | Performed | Pathologist | | | | | At | Signature | + + + + + + | Troponin I | 0.39 (H)Comment: | 0.00 - 0.08 | [facility] | | | | Borderline elevation. | ng/mL | [facility] | | | | Repeat testing may be | | [facility] | | | | indicated. | | [facility] | | | | [...] + + | MONIKA [facility] | [address] | [place] [address] | | | [facility] | | | | | LABORATORY | | | | + + + + + CK-MB (12/15/2013 9:41 PM PDT) + + + + + + | Component | Value | Ref Range | Performed | Pathologist | | | | | At | Signature | + + + + + + | CK TOTAL | 191 (H) | 37 - 153 U/L | [facility] | | | | | | [facility] | | | | | | [facility] | | | | [facility] | | | | | | [facility] | | + + + + + + | CK-MB | 3.0 | 0 - 7.0 ng/mL | [facility] | | | | | | [facility] | | | | | | [facility] | | | | [facility] | | | | | | LAB[facility]ATORY | | + + + + + + | CK Index | 1.6Comment: Use relative | <4.0 % | [facility] | | | | index only if CKMB and | | [facility] | | | | total CK are elevated. | | [facility] | | | | [...] + + | [facility] | [address] | [place] [address] | | | [facility] | | | | | LABORATORY | | | | + + + + + Comprehensive Metabolic Panel (12/15/2013 9:41 PM PDT) + + + + + [...] + + + + | K | 3.4 (L) | 3.5 - 5.1 | [facility] | | | | | mmol/L | [facility] | | | | | | [facility] | | | | | [facility] | | | | | | LAB[facility]ATORY | | + + + + + + | Cl | 98 | 98 - 109 mmol/L | [facility] [...] + + + + | Glucose | 131 (H) | 60 - 114 mg/dL | [...] + + + + | Creatinine | 1.30 (H) | 0.5 - 1.2 mg/dL | [facility] | | | | | | [facility] | | | | | | [facility] | [facility] | | | | | | [facility] | | + + + + + + | Calcium | 9.3 | 8.4 - 10.5 | [facility] | | | | | mg/dL | [facility] | | | | | | [facility] | [facility] | | | | | | [facility] | | + + + + + + | Total | 8.3 (H) | 6.3 - 8.0 g/dL | [facility] | | | Protein | | | [facility] | | | | | | [facility] | | | | [facility] | | | | | | [facility] | | + + + + + + | Albumin | 4.3 | 3.5 - 5.0 g/dL | [facility] [...] + + + + | Alkaline | 98 | 38 - 110 U/L | [facility] | | | Phosphatase | | | [facility] | | | | | | [facility] | | | | | [facility] | | | | | | [facility]AT[facility] | | + + + + + + | AST | 24 | 5 - 40 U/L | [facility] | | | | | | [facility] | | | | | | [facility] | [facility] | | | | | | [facility]ATORY | | + + + + + + | ALT | 35 | 12 - 78 U/L | [facility] | | | | | | [facility] | | | | | | [facility] | | | | | | [facility] | | + + + + + + | Anion Gap | 15 | 10 - 20 mmol/L | [facility] | | | | | | [facility] | [facility] | | | [facility] | [facility] | | | | | | [facility] | | + + + + + + | Estimated | 43 (L)Comment: GFR <60: | >60 | [facility] [...] + | [facility] | [address] | [place] [address] | | | [facility] | | | | | LABORATORY | | | | + + + + + CBC with Differential (12/15/2013 9:41 PM PDT) + + + + + + | Component | Value | Ref Range | Performed | Pathologist | | | | | At | Signature | + + + + + + | WBC | 6.1 | 4.0 - 11.0 K/uL | [facility] | | | | | | [facility] | | | | | [facility] | | | | | | [facility] | | + + + + + + | RBC | 4.20 | 3.80 - 5.20 | [facility] | | | | | M/uL | [facility] | | | | | | [facility] | | | | | | [facility] | | + + + + + + | Hemoglobin | 13.5 | 11.6 - 15.5 | [facility] | | | | | g/dL | [facility] | | | | | | [facility] | [facility] | | | | | | [facility] | | + + + + + + | Hematocrit | 39.0 | 35.0 - 46.0 % | [facility] | | | | | | [facility] | | | | | [facility] | | | | | | [facility] | | + + + + + + | MCV | 92.8 | 80.0 - 100.0 fL | [facility] | | | | | | [facility] | | | | | [facility] | | | | | | [facility] | | + + + + + + | MCH | 32.0 | 27.0 - 34.0 pg | [facility] | | | | | | [facility] | | | | | [facility] | | | | | | [facility] | | + + + + + + | MCHC | 34.5 | 32.0 - 35.5 | [facility] | | | | | g/dL | [facility] | | | | | | [facility] | | | | | | [facility] | | + + + + + + | RDW-CV | 13.0 | 11.0 - 15.0 % | [facility] [...] + + + + | % | 61.0 | 38.0 - 80.0 % | [facility] | | | Neutrophils | | | [facility] | | | | | | [facility] | | | | | | [facility] | | + + + + + + | % | 27.6 | 21.0 - 49.0 % | [facility] | | | Lymphocytes | | | [facility] | | | | | | [facility] | [facility] | | | | | | [facility] | | + + + + + + | % Monocytes | 8.9 | 3.0 - 11.0 % | [facility] | | | | | | [facility] | | | | | [facility] | | | | | | [facility] | | + + + + + + | % | 2.0 | 0.0 - 7.0 % | [facility] [...] + + | Absolute | 3.80 | 1.8 - 7.7 K/uL | [facility] | | | Neutrophils | | | [facility] | | | | | | [facility] | | | | | | [facility] | | + + + + + + | Absolute | 1.70 | 1.0 - 5.0 K/uL | [facility] | | | Lymphocytes | | | [facility] | | | | | | [facility] | [facility] | | | | | | [facility]ATORY | | + + + + + + | Absolute | 0.50 | 0 - 0.8 K/uL | [facility] [...] + + | MON[facility] | [address] | [place] [address] | | | [facility] | | | | | LABORATORY | | | | + + + + + documented in this encounter Visit Diagnoses + + | Diagnosis | + + | Chest pain - Primary Chest pain, unspecified | + + | NSTEMI (non-ST elevated myocardial infarction) (HCC) Acute myocardial infarction, | | subendocardial infarction, episode of care unspecified | + + | CORONARY ARTERY DISEASE Coronary atherosclerosis of unspecified type of vessel, | | [place] or graft | + + documented in this encounter Administered Medications + +--------+ +--------+------+------+ | Medication Order | MAR | Action | Dose | Rate | Site | | | Action | Date | | | | + +--------+ +--------+------+------+ | heparin 5,000 units/mL | Given | 12/16/19 | 5,000 | | | | injection 5,000 Units 5,000 | | 14 11:19 | Units | | | | Units, Intravenous, ONCE, Sun | | PM PDT | | | | | 12/15/13 at 2330, For 1 dose | | | | | | + +--------+ +--------+------+------+ +---+---+ | | | +---+---+ + +---------+ + + +---+ | heparin infusion 50 units/mL in | New Bag | 12/16/19 | 1,000 | 20 mL/hr | | | dextrose 5% 1,000 Units/hr | | 14 11:19 | Units/hr | | | | (rounded to 20 mL/hr), at 20 | | PM PDT | | | | | mL/hr, Intravenous, CONTINUOUS, | | | | | | | Starting 12/15/13 at 2330 | | | | | | + +---------+ + + +---+ +---+---+ | | | +---+---+ documented in this encounter
--- OUTSIDE RECORDS SUMMARY | ~2019-07-30 | XMS | Encounter Summary ---
Demographics + + + | Address | [address] | | | [place] [address] | + + + | Home Phone [...] Team Providers + +------+ + | Care Otologist Name | Role | Phone | + [...] | SR | | | | | [phone] | | | +--------+ + + + [...]
--- OUTSIDE RECORDS SUMMARY | ~2019-07-30 | XMS | Encounter Summary ---
Demographics + + + | Address | [address] | | | [place] [address] | + + + | Home Phone | | + + + | Preferred Language | Unknown | + + + | Marital Status | | + + + | Jew Affiliation | 1001 | + + + | Race | Unknown | + + + | Ethnic Group | Unknown | + + + Author + + + | Author | [facility] | | | and [place] | + + + | Organization | [facility] | | [...] Team Providers + +------+ + | Care Turning Lathe Tender Name | Role | Phone | + +------+ + PCP | Unavailable | + +------+ + Reason for Visit + + + | Reason | Comments | + + + | Coronary Artery | | | Disease | | + + + Evaluate & Treat (Routine) +--------+ + + + + + | Status | Reason | Specialty | Diagnoses / | Referred By | Referred To | | | | | Procedures | Contact | Contact | +--------+ + + + + + | Closed | Specialty | Cardiology / | Diagnoses | John Paul, | [place] | | | Services | Internal | CAD | Charito | MD Donald | | | Required | Medicine | (coronary | ABBY Contreras | [address] | | | | | artery | [address] | | | | | disease) | YAMILE [place]ON | [place], | | | | | Procedures | [place] | [place] [address] | | | | | Eval & Treat | [id number] | Phone: | | | | | - MMV | Phone: | [phone] | | | | | | [phone] | Fax: | | | | | | Fax: | [phone] | | | | | | [phone] | | +--------+ + + + + + Encounter Details +--------+---------+ + + + | Date | Type | Department | Care Team | Description | +--------+---------+ + + + | 07/31/ | Office | Alejandra HOLLINS | Donald Mendiola, | CAD (coronary artery | | 2014 | Visit | Sharon Ni | [address] | disease) (Primary | | | | Internal Medicine | Ave. [place], [place] | Dx) | | | | [address] | [id number] | | | | | [place], [place] | | | | | | [address] | | | | | | [phone] | | | +--------+---------+ + + + [...] + + + | Blood Pressure | 161/92 | 07/31/2013 8:45 AM | | | | | PST | | + + + + + | Pulse | 75 | 07/31/2013 8:45 AM | | | | | PST | | + + + + + | Temperature | - | - | | + + + + + | Respiratory Rate | 16 | 07/31/2013 8:45 AM | | | | | PST | | + + + + + | Oxygen Saturation | - | - | | + + + + + | Inhaled Oxygen | - | - | | | Concentration | | | | + + + + + | Weight | 79.4 kg (175 lb) | 07/31/2013 8:45 AM | | | | | PST | | + + + + + | Height | 167.6 cm (5' 6") | 07/31/2013 8:45 AM | | | | | PST | | + + + + + | Body Mass Index | 28.25 | 07/31/2013 8:45 AM | | | | | PST | | + + + + + documented in this encounter Patient Instructions Patient Instructions Donald Mendiola MD - 07/31/2013 9:21 AM PST1. Take 81mg ASA PO QD.El ectronically signed by Donald Mendiola MD at 07/31/2013 9:22 AM PST documented in this encounter Progress Notes Donald Mendiola MD - 07/31/2013 1:41 PM PSTFormatting of this note might be different fro m the original. [facility] - Cardiology [address] [place] [address] PATIENT: Chaya Chan CHIEF COMPLAINT: Chief Complaint Patient presents with Coronary Artery Disease HISTORY OF PRESENT ILLNESS Chaya Chan is a 72 y.o. female who was referred for cardiovascular consultation. Mrs. Chan has a long history of coronary disease dating back at least 2004. In 2004 patient snider stained a non-STEMI. In 2005 patient had 2 stents placed in a long diffuse circumflex lesio n. Her left ventricular function at that time was reportedly normal. In 2010 patient sust ained a second non-STEMI MA. Following this event patient's underwent thrombectomy and ball oon angioplasty. Echocardiogram September 2011 showed moderate LVH. Ejection fraction 55-60%. Moderate left atrial enlargement. Mild aortic stenosis. Mild mitral regurgitation. Mild pulmonary hypertension. In November 2011 a nuclear perfusion study was performed and was nondiag nostic for ischemia. In January 2012 angiography was repeated. Her circumflex stents were note d to be occluded. 40% ostial lesion was noted in the right coronary artery. A 70% stenosis was noted in the distal PDA. Small vessel disease was noted and findings consistent with p rior inferior infarction were notified. In February 2012 carotid duplex study showed 50-79% o bstructions bilaterally. Cholesterol checked in February 2012 revealed a cholesterol 132 mg/d L, LDL 55 mg/dL, and HDL of 57 mg/dL. At that time patient was seen by Dr. García. She seem ed to be doing well complaining only of some minimal dizziness and lightheadedness. She was using her C Pap regularly. Since then patient has been seen infrequently. She has been go ne a lot. Apparently she travels with her son-in-law she to [place] and other places. She t araceli to see a physician when she is in town. She would like to see Dr. García again soon but she will be gone for the next couple of months. She is tired of going to [place] so she wo uld like to see me for cardiology followup. Presently she is doing pretty good. Home blood pressure readings are elevated but are now doing better. She is on no medications. She wa s on metoprolol but stopped it. She states that she does have chronic but stable angina. A bout a year ago she was having a lot of angina. It is now better. She thinks her angina is at least partially due to allergies. She feels that she is allergic to nightshade's. If s he avoids excessive activity she has no angina. She has nitroglycerin but is not taking it regularly. She uses her rebound irregularly for 3-4 minutes. She is on cayanne instead of aspirin. ROS Reviewed and negative in all other systems except as noted in HPI. MEDICAL, SURGICAL, AND PERSONAL HISTORY Present medications, Past Medical, Surgical, Family, and Social History are reviewed in EPI C. ALLERGIES Allergies Allergen Reactions Diltiazem Hcl Iodinated Diagnostic Agents PHYSICAL EXAM BP 161/92 | Pulse 75 | Resp 16 | Ht 1.676 m (5' 6") | Wt 79.379 kg (175 lb) | BMI 28.25 kg/ m2 PHYSICAL EXAM General: Patient is alert and oriented. Affect appropriate. No physical distress. Vitals: Vital signs reviewed, see above. Neck: No JVD, or lymphadenopathy. Carotid pulsations normal. Cardiovascular: Regular rate and rhythm, S1 and S2 are normal. No S3. No rub. No murmurs. Lungs: Clear to auscultation without rales, ronchi, or wheezing. Abdomen: Soft, Non tender, No masses or organomegaly. Bowel sounds normal. No audible brui t. A distant umbilical hernia is noted. Extremities: No calf tenderness or edema. Neuro: Nonfocal and normal sensation. Station and gait normal. LABS: Lab Results Component Value Date WBC 4.9 12/10/2011 HGB 11.3* 12/10/2011 HCT 33.8* 12/10/2011 PLT 164 12/10/2011 CHOL 165 12/08/2011 TRIG 109 12/08/2011 HDL 46 12/08/2011 LDLCALC 97 12/08/2011 ALT 21 12/07/2011 AST 23 12/07/2011 NA 139 12/10/2011 K 3.8 12/10/2011 CL 106 12/10/2011 CREA 0.98 12/10/2011 BUN 18 12/10/2011 CO2 23 12/10/2011 INR 1.0 12/07/2011 ASSESSMENT No problem-specific assessment & plan notes found for this encounter. 1. Coronary artery disease. Presents status asymptomatic. She has mild stable angina 2. Hypertension. Presently under fair to good control on home readings. Patient prefers not to take any prescription medications if at all possible. Moderate concentric left ventr icular hypertrophy is noted on echo. 3. Obstructive sleep apnea with mild pulmonary hypertension. 4. Cerebral ischemia. Status post lacunar infarct noted on CT scan November 2011. Followup ca rotid duplex shows 50-79% stenoses bilaterally. Present status asymptomatic. PLAN 1. Medications are reviewed. Recommend patient start taking aspirin 81 mg daily. She agr ees. 2. See Dr. García in followup at her earliest convenience. 3. Schedule cardiovascular followup for 6 months. Thank you for the referral. FOLLOWUP No Follow-up on file. MEDICATION ADJUSTMENTS New Prescriptions No medications on file Medications Discontinued During This Encounter Medication Reason CALCIUM PO Other metoprolol tartrate (LOPRESSOR) 25 mg tablet Patient Not Taking Signed by: Donald Mendiola MD 07/31/2013, 13:41 documented in this en counter Plan of Treatment Not on filedocumented as of this encounter Procedures + +--------+ + + + | Procedure Name | Priori | Date/Time | Associated Diagnosis | Comments | | | ty | | | | + +--------+ + + + | ECG 12 LEAD - PB | Routin | 07/31/2013 | CAD (coronary | Results for this | | | e | 2:48 PM | artery disease) | procedure are in the | | | | PST | | results section. | + +--------+ + + + documented in this encounter Results ECG 12 lead (07/31/2013 2:48 PM PST) + + + | Narrative | Performed At | + + + | Donald Mendiola MD 07/31/2013 14:48 Abnormal ECG. Normal | | | sinus rhythm. Possible left anterior fascicular block. | | | Anterolateral ST-T wave changes. Rule out anterolateral injury, | | | ischemia and/or left ventricular enlargement on a non-voltage basis. | | + + + + + | Procedure Note | + + | Donald Mendiola MD - 07/31/2013 2:47 PM PST Abnormal ECG. Normal sinus rhythm. | | Possible left anterior fascicular block. Anterolateral ST-T wave changes. Rule out | | anterolateral injury, ischemia and/or left ventricular enlargement on a non-voltage | | basis. | + + documented in this encounter Visit Diagnoses + + | Diagnosis | + + | CAD (coronary artery disease) - Primary Coronary atherosclerosis of unspecified type | | of vessel, [place] or graft | + + documented in this encounter
--- OUTSIDE RECORDS SUMMARY | ~2019-07-30 | XMS | Encounter Summary ---
Demographics + + + | Address | [address] | | | [place] [address] | + + + | Home Phone [...] Team Providers + +------+ + | Care Boat Outfitting Supervisor Name | Role | Phone | + +------+ + | Doug García MD | PCP | | + +------+ + Reason for Visit + + + | Reason | Comments | + + + | Appointment | | + + + Encounter Details +--------+ + + + + | Date | Type | Department | Care Team | Description | +--------+ + + + + | 03/18/ | Telephone | [place] | Grzegorz Rios, | Appointment | | 2013 | | [facility] [place] | [place] [address] | | | | | [address] | [address] | | | | | [address] [place], [place] | [place] [address] | | | | | [address] | [phone] | | | | | [phone] | | | +--------+ + + + [...]
--- OUTSIDE RECORDS SUMMARY | ~2019-07-30 | XMS | Encounter Summary ---
Demographics + + + | Address | [address] | | | [place] [address] | + + + | Home Phone [...] Team Providers + +------+ + | Care Data Processing Systems Project Planner Name | Role | Phone | + +------+ + | Doug García MD | PCP | | + +------+ + Encounter Details +--------+ + + + + | Date | Type | Department | Care Team | Description | +--------+ + + + + | 02/25/ | Hospital | [facility] | Doug García MD | Dizziness of unknown | | 2014 | Encounter | [facility] | [address] | cause; | | | | [address] | [place] [address] | Hypothyroidism | | | | [facility] | [phone] | | | | | [place], [place] | | | | | | [address] | | | | | | [phone] | | | +--------+ + + + [...] TSH, REFLEX FREE T4 | Routin | 02/25/2014 | Hypothyroidism | Results for this | | | e | 3:16 PM | | procedure are in the | | | | PDT | | results section. | + +--------+ + + + | SEDIMENTATION RATE | Routin | 02/25/2014 | Dizziness of | Results for this | | | e | 3:16 PM | unknown cause | procedure are in the | | | | PDT | | results section. | + +--------+ + + + | CBC WITH | Routin | 02/25/2014 | Dizziness of | Results for this | | DIFFERENTIAL | e | 3:16 PM | unknown cause | procedure are in the | | | | PDT | | results section. | + +--------+ + + + | T4, FREE | Routin | 02/25/2014 | | Results for this | | | e | 3:16 PM | | procedure are in the | | | | PDT | | results section. | + +--------+ + + + | COMPREHENSIVE | Routin | 02/25/2014 | Dizziness of | Results for this | | METABOLIC PANEL | e | 3:16 PM | unknown cause | procedure are in the | | | | PDT | | results section. | + +--------+ + + + documented in this encounter Results T4, Free (02/25/2014 3:16 PM PDT) + +-------+ + + + | Component | Value | Ref Range | Performed | Pathologist | | | | | At | Signature | + +-------+ + + + | FT4 | 1.0 | 0.76 - 1.46 | [facility] | [...] + + | [facility] | [address] | [place] [address] | | | [facility] | | | | | LABORATORY | | | | + + + + + TSH, Reflex Free T4 (02/25/2014 3:16 PM PDT) + + + + + + | Component | Value | Ref Range | Performed | Pathologist | | | | | At | Signature | + + + + + + | TSH | 6.59 (H) | 0.36 - 3.74 | [facility] | | | | | uIU/mL | [facility] | | | | | [...] | [facility] | [address] [facility] | [place] [address] | | | [facility] | | | | | LABORATORY | | | | + + + + + Sedimentation Rate (02/25/2014 3:16 PM PDT) + +--------+ + + + | Component | Value | Ref Range | Performed | Pathologist | | | | | At | Signature | + +--------+ + + + | ESR | 67 (H) | 0 - 20 mm/h | [facility] | | | | | [...] + | ALEXE KORI | [address] [facility] | [place] [address] | | | [facility] | | | | | LABORATORY | | | | + + + + + Comprehensive Metabolic Panel (02/25/2014 3:16 PM PDT) + + + + + + | Component | Value | Ref Range | Performed | Pathologist | | | | | At | Signature | + + + + + + | Na | 141 | 135 - 145 | [facility] | | | | | mmol/L | [facility] | | | | | | [facility] | | | | | | [facility]ORY | | + + + + + + | K | 5.2 (H) | 3.5 - 5.1 | [facility] | [...] + + + | CO2 | 32 | 21 - 32 mmol/L | [facility] | | | | | | [facility] | | | | [facility] | | | | | | [facility] | | + + + + + + | Glucose | 106 | 60 - 114 mg/dL | [facility] | | | | | | [facility] | | | | [facility] | | | | | | [facility]ORY | | + + + + + + | BUN | 24 (H) | 8 - 21 mg/dL | [facility] | | | | | | [facility] | | | | [facility] | | | | | | [facility] | | + + + + + + | Creatinine | 1.60 (H) | 0.5 - 1.2 mg/dL | [facility] | | | | | | [facility] | | | | [facility] | | | | | | [facility]ORY | | + + + + + + | Calcium | 10.0 | 8.4 - 10.5 | [facility] | | | | | mg/dL | [facility] | | | | | [facility] | | | | | | [facility]ATORY | | + + + + + + | Total | 8.7 (H) | 6.3 - 8.0 g/dL | [...] + + + + | Alkaline | 99 | 38 - 110 U/L | [facility] [...] + + + + | ALT | 31 | 12 - 78 U/L | [facility] [...] + + + + | Estimated | 34 (L)Comment: GFR <60: | >60 | [facility] | | | GFR | Chronic kidney disease, | ml/min/1.73m2 | [facility] | | | | if found over a 3 month | | [place] | | | | period.GFR <15: Kidney [...] + + | MON[facility]A SHEI[facility] | [address] | [place] [address] | | | [facility] | | | | | LABORATORY | | | | + + + + + CBC with Differential (02/25/2014 3:16 PM PDT) + + + + + + | Component | Value | Ref Range | Performed | Pathologist | | | | | At | Signature | + + + + + + | WBC | 6.4 | 4.0 - 11.0 K/uL | [facility] | | | | | | [facility] | | | | [facility] | | | | | | [facility] | | + + + + + + | RBC | 3.50 (L) | 3.80 - 5.20 | [facility] | | | | | M/uL | [facility] | | [facility] | | [facility] | | | | | | [facility] | | + + + + + + | Hemoglobin | 10.9 (L) | 11.6 - 15.5 | [facility] | | | | | g/dL | [facility] | | | | | [facility] | | | | | | [facility] | | + + + + + + | Hematocrit | 32.5 (L) | 35.0 - 46.0 % | [facility] [...] + + + + | RDW-CV | 15.5 (H) | 11.0 - 15.0 % | [facility] | | | | | | [facility] | | | | | | [facility] | | + + + + + + | Platelet | 224 | 150 - 400 K/uL | [facility] [...] + + + + | % | 69.0 | 38.0 - 80.0 % | [facility] | | | Neutrophils | | | [facility] | | | | | [facility] | | | | | | [facility]ATORY | | + + + + + + | % | 19.5 (L) | 21.0 - 49.0 % | [facility] | | | Lymphocytes | | | [facility] | | | | | [facility] | | | | | | [facility] | | + + + + + + | % Monocytes | 9.2 | 3.0 - 11.0 % | [facility] | | | | | | [facility] | | [facility] | | | | | | [facility] | | + + + + + + | % | 1.8 | 0.0 - 7.0 % | [facility] [...] + + + + | Absolute | 4.50 | 1.8 - 7.7 K/uL | [facility] | | | Neutrophils | | | [facility] | | | | | [facility] | | | | | | [facility] | | + + + + + + | Absolute | 1.20 | 1.0 - 5.0 K/uL | [facility] | | | Lymphocytes | | | [facility] | | | | | [facility] | | | | | | [facility] | | + + + + + + | Absolute | 0.60 | 0 - 0.8 K/uL | [facility] [...] | MONIKA SHEIKH | [address] [facility] | [place] [address] | | | [facility] | | | | | LABORATORY | | | | + + + + + documented in this encounter Visit Diagnoses + + | Diagnosis | + + | Dizziness of unknown cause | + + | Hypothyroidism Unspecified hypothyroidism | + + documented in this encounter"
--- OUTSIDE RECORDS SUMMARY | ~2019-07-30 | XMS | Encounter Summary ---
Demographics + + + | Address | [address] | | | [place] [address] | + + + | Home Phone [...] Team Providers + +------+ + | Care Family Support Specialist Name | Role | Phone | + +------+ + | Doug García MD | PCP | | + +------+ + Encounter Details +--------+ + + + + | Date | Type | Department | Care Team | Description | +--------+ + + + + | 04/27/ | Orders Only | [facility] | Doug García MD | Hypothyroidism due | | 2015 | | [facility] | [address] | to acquired atrophy | | | | Internal Medicine | [place] [address] | of thyroid (Primary | | | | [address] | [phone] | Dx); Hypothyroidism, | | | | [place], [place] | | unspecified | | | | [address] | | hypothyroidism type | | | | [phone] | | | +--------+ + + + [...] + | Diagnosis | + + | Hypothyroidism due to acquired atrophy of thyroid - Primary | + + | Hypothyroidism, unspecified hypothyroidism type | + + documented in this encounter"
--- OUTSIDE RECORDS SUMMARY | ~2019-07-30 | XMS | Encounter Summary ---
Demographics + + + | Address | [address] | | | [place] [address] | + + + | Home Phone | | + + + | Preferred Language | Unknown | + + + | Marital Status | | + + + | Evangelical Affiliation | [id number] | + + + [...] Team Providers + +------+ + | Care Door To Door Sales Representative Name | Role | Phone | + +------+ + | Doug García MD | PCP | | + +------+ + Encounter Details +--------+ + + + + | Date | Type | Department | Care Team | Description | +--------+ + + + + | 10/21/ | Emergency | [facility] | [facility], | Constipation, | | 2019 | | [facility] | [address] | unspecified | | | | EMERGENCY CENTER | [place] [address] | constipation type; | | | | [address] | [phone] | Other urinary | | | | [place], [place] | | incontinence; S/P | | | | [address] | | lumbar laminectomy | | | | [phone] | | | +--------+ + + + [...] | spondylosis. There is moderate left-sided and aela-yz-tdsxmldn | | | right-sided foraminal stenosis that is stable in appearance. 4. | | | Puzv-ca-yxheypvc disc bulge with severe facet spondylosis and [...] endplate spondylosis with spurring at L2-4 with ngvu-dy-hmaciynq | | | spondylosis at L4-5 and [...] L1-L2: There is a | | | vccu-fe-ltcqflvj posterior disc bulge with fmsv-qq-txhziqhf facet | | | spondylosis and mild [...] is moderate | | | left-sided and ijyy-fs-ditaxzwr right-sided foraminal stenosis. The | | | [...] L5-S1: There is a | | | guvl-qk-udxouvoi posterior disc bulge with severe facet spondylosis [...] with spurring at L2-4 with | | bpfi-ko-efcqapjs spondylosis at L4-5 and mild spondylosis at [...] stenosis. | | L1-L2: There is a sjcg-zw-epaxdybs posterior disc bulge with | | thdn-kg-jqjzsxsh facet spondylosis and mild ligamentous hypertrophy. | [...] There is | | moderate left-sided and whss-vn-alzjzgfu right-sided foraminal | | stenosis. The foraminal [...] narrowed. | | L5-S1: There is a dozd-rf-yhvixerk posterior disc bulge with severe | | [...] There is moderate left-sided | | and gery-uy-hnabsowp right-sided foraminal stenosis that is stable in | | appearance. | | 4. Wenm-xn-svbgsods disc bulge with severe facet spondylosis and [...] - 1.030 | EXTERNAL | | | [place] | | | LAB | | + [...] EXTERNAL | | | | performed at [facility];[id number] | | LAB | | | | [address] Naz[address];[place] | | | | | | [address] | | | | + + + [...]
--- OUTSIDE RECORDS SUMMARY | ~2019-07-30 | XMS | Encounter Summary ---
Demographics + + + | Address | [address] | | | [place] [address] | + + + | Home Phone [...] Team Providers + +------+ + | Care Automated Cutting Machine Operator Name | Role | Phone | + +------+ + | Doug García MD | PCP | | + +------+ + Encounter Details +--------+ + + + + | Date | Type | Department | Care Team | Description | +--------+ + + + + | 08/07/ | Hospital | [facility] | Doug García MD | Benign essential | | 2018 | Encounter | [facility] | [address] | hypertension; Other | | | | LABORATORY [address] | [place] [address] | hyperlipidemia; | | | | [address] | [phone] | Acquired | | | | [place], [place] | | hypothyroidism | | | | [address] | | | | | | [phone] | | | +--------+ + + + [...] + | LIPID PANEL | Routin | 08/07/2017 | Other | Results for this | | | e | 7:55 AM | hyperlipidemia | procedure are in the | | | | PST | | results section. | + +--------+ + + + | TSH, REFLEX FREE T4 | Routin | 08/07/2017 | Acquired | Results for this | | | e | 7:55 AM | hypothyroidism | procedure are in the | | | | PST | | results section. | + +--------+ + + + | CBC WITH | Routin | 08/07/2017 | Benign essential | Results for this | | DIFFERENTIAL | e | 7:55 AM | hypertension | procedure are in the | | | | PST | | results section. | + +--------+ + + + | COMPREHENSIVE | Routin | 08/07/2017 | Benign essential | Results for this | | METABOLIC PANEL | e | 7:55 AM | hypertension | procedure are in the | | | | PST | | results section. | + +--------+ + + + documented in this encounter Results TSH, Reflex Free T4 [...] | + + + + + | [facility] | [address] | [place] [address] | | | [facility] | | | | | LAB[facility]ATORY | | | | + + + + + Lipid Panel (08/07/2017 7:55 AM PST) + + + + + + | Component | Value | Ref Range | Performed | Pathologist | | | | | At | Signature | + + + + + + | Cholesterol | 200 (H) | <200 mg/dL | [facility] | [...] + + | [facility] SHEIKH | [address] | [place] [address] | | | [facility] | | | | | [...] | | | | | mmol/L | [facility] | | | | | [...] 51 (L)Comment: GFR <60: | >60 | [facility] | | | GFR | Chronic kidney [...] + + | MONIK[facility] SHEIKH | [address] | [place] [address] | | | [facility] | | | | | [...] + + | MONIKA SHEIKH | [address] | [place] [address] | | | [facility] | | | | | LABORATORY | | | | + + + + + documented in this encounter Visit Diagnoses + + | Diagnosis | + + | Benign essential hypertension Essential hypertension, benign | + + | Other hyperlipidemia | + + | Acquired hypothyroidism Unspecified hypothyroidism | + + documented in this encounter"
--- OUTSIDE RECORDS SUMMARY | ~2019-07-30 | XMS | Encounter Summary ---
Demographics + + + | Address | [address] | | | [place] [address] | + + + | Home Phone [...] Team Providers + +------+ + | Care Coil Winder Repair Name | Role | Phone | + [...] | Radiology | Diagnoses | Ricky, | [facility] Echo | | | Services | | Coronary | MD Pepper | [address] | | | Required | | artery | [address] | | | | | disease due | [address] | [place], [place] | | | | | to calcified | Ave. | [address] | | | | | coronary | [place], [place] | Phone: | | | | | lesion | [address] | [phone] | | | | | Chronic | Phone: | Fax: | | | | | diastolic | [phone] | [phone] | | | | | CHF | Fax: | | | | | | (congestive | [phone] | | | | | | heart [...] essential | | 2017 | Visit | [facility] | [address] | hypertension | | | | Internal Medicine | [place] [address] | (Primary Dx); | | | | [address] [facility] | [phone] | Obstructive sleep | | | | [place], [place] | | apnea; Coronary | | | | [address] | | artery disease due | | | | [phone] | | to calcified | | | [...] can get one of these at most [facility]. Use this to watch your blood pressure [...] problems speaking or seeing Date Last Reviewed: 06/10/201419998831-5176 [employer] [place] [address]. All [facility] reserved. This information is not intended as a substitute for professional medical care. Always follow your healthcare professional's instructions. documented in this encounter Progress Notes Pepper Sneed MD - 11/10/2016 11:42 PM PDTFormatting of this note might be different from t eleonora original. [facility] CLINIC NOTE Patient Name: Markie Chan 75 y.o. Date of : 1940 MR Number: [id number] Date of Visit: 11/10/2016 Patient Active Problem [...] was seen in e ED at the [facility] 3 weeks ago for hypertension. This [...] Electronically signed by: Pepper Sneed 11/10/2016 23:42 [facility] documented in this encou nter Plan of Treatment Not on filedocumented as of this encounter Results VAS Carotid Duplex Bilateral (12/05/2016 11:00 AM PDT) + + | Specimen | + + | | + + + + + | Narrative | Performed At | + + + | [facility] | [facility] | | [place] [address] [address] PATIENT | RUDI - | | NAME: [...] | | >70cm/sec, ICA:CCA >3.2 Criteria from [facility] Proc. | | | [id number] | | | CONCLUSION: Mild stenosis (less [...] | | | 12/05/2016 16:28 [facility] Echo/Show Girl 12/05/2016 | | | 12:46 | | |ICA:CCA ratio : WNL | | | | | | | | |Category % stenosis, | | |Normal/mild, PSV <130 cm/sec, ICA:CCA <1.6 | | |Moderate 50-69% , PSV 130-229 cm/sec, EDV <70cm/sec, ICA:CCA 1.6-3.1 | | |Severe >70%, PSV >230 cm/sec, EDV >70cm/sec, ICA:CCA >3.2 | | |Criteria from [facility] Proc. [id number] | | | | | |CONCLUSION: | [...] 16:28 | | | | | |Cristiane Charles/Show Girl 12/05/2016 12:46 | | | | | | | | | | | | | | | | | | | | + + + + + + + + | Performing | Address | City/State[facility] | Phone Number | | Organization | | | | + + + + + | [place] | [facility], [address] | [place] [address] | [phone] | | - IMAGING - [facility] | [...] CHAN Study Date: 12/05/2016MRN: | | | [id number] [facility] ECHODOB: | | | 1940 Age: 76 yrs | | | Gender: FemaleHeight: 65 in Weight: 176 | | | lb BSA: 1.9 x4Fmyaey For Study: CHF; CAD | | | [...] | |Referring Physician: PEPPER SNEED | | |Counting Machine Operator: Delbert Soto | | |[id number]: | | | | | + +----- ---------+ + + | Procedure Note | + + | Mauricio, Rad Results In - 12/05/2016 4:22 PM PDT | | Adult Echo | | Report | | | | Name: MARKIE CHAN Study Date: 12/05/2016 | | Patient Location: [facility] ECHO | | : 1940 Age: [...] | Referring Physician: PEPPER SNEED | | Counting Machine Operator: Delbert Soto | | [id number]: | + + Magnesium (11/10/2016 11:29 AM [...] + + + + + | [facility] | [address] | [place] [address] | | | [facility] | | | | | LABORATORY [...] + + + + + | [facility] | [address] | [place] [address] | | | [facility] | | | | | LABORATORY [...] | | | | | uIU/mL | [facility] | | | | | | [facility] [...] | [facility] | [address] | [place] [address] | | | [facility] | | | | | LABORATORY [...] | MONIKA SHEIKH | [address] | [place] [address] | | | [facility] | | | | | LABORATORY [...] | MON[facility]A SHEIKH | [address] | [place] [address] | | | [facility] | | | | | LABORATORY [...]
--- OUTSIDE RECORDS SUMMARY | ~2019-07-30 | XMS | Encounter Summary ---
Demographics + + + | Address | [address] | | | [place] [address] | + + + | Home Phone [...] | [facility] | | | and [place] | + [...] Team Providers + +------+ + | Care Paint Stock Clerk Name | Role | Phone | + [...] | +--------+ + + + + | 04/02/ | Telephone | [facility] | [facility] [place] | Hospital Follow-up | | 2018 | | [facility] | [address] | | | | | [address] | [address] | | | | | [facility] [address] | [place] [address] | | | | | [address] | [phone] | | | | | [phone] | | | +--------+ + + + [...]
--- OUTSIDE RECORDS SUMMARY | ~2019-07-30 | XMS | Encounter Summary ---
Demographics + + + | Address | [address] | | | [place] [address] | + + + | Home Phone [...] Team Providers + +------+ + | Care Leadite Worker Name | Role | Phone | + +------+ + | Doug García MD | PCP | | + +------+ + Reason for Visit + + + | Reason | Comments | + + + | Follow-up | 6 month follow up, [facility] visit's for heart attack | + + + | Atrial Fibrillation | | + + + Encounter Details +--------+---------+ + + + | Date | Type | Department | Care Team | Description | +--------+---------+ + + + | 04/05/ | Office | [facility] | Fly Christianson, | Coronary artery | | 2018 | Visit | [facility]Y [facility] | [address] | disease due to | | | | [address] | [address] [place], | calcified coronary | | | | YFN [address] | [place] [address] | lesion | | | | [place] | [phone] | | | | | [address] | | | | | | [phone] | | | +--------+---------+ + + + [...] + + + | Blood Pressure | 134/72 | 04/05/2018 9:28 AM | Rt | | | | PDT | | + + + + + | Pulse | 66 | 04/05/2018 9:23 AM | | | | | PDT | | + + + + + | Temperature | - | - | | + + + + + | Respiratory Rate | - | - | | + + + + + | Oxygen Saturation | 96% | 04/05/2018 9:23 AM | | | | | PDT | | + + + + + | Inhaled Oxygen | - | - | | | Concentration | | | | + + + + + | Weight | 73.3 kg (161 lb 9.6 | 04/05/2018 9:23 AM | | | | oz) | PDT | | + + + + + | Height | 165.1 cm (5' 5") | 04/05/2018 9:23 AM | | | | | PDT | | + + + + + | Body Mass Index | 26.89 | 04/05/2018 9:23 AM | | | | | PDT [...] Instructions Patient Instructions Fly Christianson MD - 04/05/2018 9:00 AM PDTContinue current cardiac medications Restart taking atorvastatin 40 mg nightly for your cholesterol and to reduce further plaque buildup If recurrent angina symptoms in the daytime, increase Imdur from 30-60 mg daily. If recurr ent angina symptoms at night, increase Imdur to 30 mg in morning and dinnertime. Notify off ice if these occur. We'll prescribe new bottle of nitroglycerin to have available if needed. Clinical follow-up in 6 months. documented in this encounter Progress Notes Fly Christianson MD - 04/05/2018 9:00 AM PDTFormatting of this note might be different fr om the original. PATIENT NAME: Chaya Chan : 1940: AGE: 77 y.o. Fly Christianson MD PRIMARY CARE: Doug García MD DATE OF SERVICE: 04/05/2018 CHIEF COMPLAINT: Follow-up recent non-ST elevation TN ASSESSMENT Coronary artery disease Recent non-ST elevation myocardial infarction with hospitalization approximately one week a go. Denies recurrent significant chest pain symptoms. Underwent catheterization revealing somewhat diffuse small branch disease but no obvious area for intervention. Will continue c urrent medical regimen. Explained potential to increase Imdur to either 60 mg daily or 30 m g twice a day if recurrent anginal symptoms with activity. Suggest use of sublingual nitrog lycerin as well. We'll continue current beta candice regimen at 75 mg daily. She will chec k her blood pressures periodically. I hope that she will continue to do well on medical man agement. We will plan to see her back in 6 months or sooner if symptoms worsen. PLAN As outlined above NEW ORDERS No orders of the defined types were placed in this encounter. FOLLOWUP Return in about 6 months (around 10/03/2018) for office visit with midlevel. HISTORY OF PRESENT ILLNESS Chaya is a 77 y.o. year old female with recent hospitalized limited non-ST elevation TN. Cardiac cath revealed somewhat diffuse branch disease with occlusion of her previous the [place] circumflex stent. She had other moderate diffuse distal branch disease but patent VOGEL chikis t. There were no percutaneous interventions indicated. Her medications were adjusted. Cli nically she is been doing well the past week. She apparently has not taken her statin medic ine for unknown reasons. She has not taken any sublingual nitroglycerin but needs a prescri ption refilled for that. She has diffuse small vessel branch disease was felt best treated medically. POST VISIT MEDICATIONS Current Outpatient Prescriptions Medication Sig Ascorbic Acid (VITAMIN C) 1000 MG tablet Take 1,000 mg by mouth Daily. aspirin 81 MG tablet Take 1 tablet by mouth Daily. (Patient not taking: Reported on 03/17) atorvaSTATin (LIPITOR) 40 mg tablet Take 1 tablet by mouth nightly. Capsicum, Cayenne, (CAYENNE PEPPER PO) Take by mouth Daily. clopidogrel (PLAVIX) 75 mg tablet Take 1 tablet by mouth Daily. Coenzyme Q10 (COQ-10 PO) Take by mouth Daily. cyanocobalamin (VITAMIN B-12) 50 MCG tablet Take 50 mcg by mouth Daily. isosorbide mononitrate (IMDUR) 30 mg ER tablet Take 1 tablet by mouth Daily. levothyroxine (SYNTHROID, LEVOTHROID) 100 mcg tablet TAKE ONE TABLET BY MOUTH ONCE CLIVE Y IN THE MORNING BEFORE BREAKFAST (Patient not taking: Reported on 03/27/2018) magnesium, as oxide, (GNP MAGNESIUM) 250 MG tablet Take 500 mg by mouth 3 times daily. meclizine (ANTIVERT) 25 mg tablet Take 1 tablet by mouth every 6 hours as needed. metoprolol succinate (TOPROL-XL) 25 mg 24 hr tablet Take 3 tablets by mouth Daily. metoprolol succinate (TOPROL-XL) 50 mg 24 hr tablet Take 1 tablet by mouth Daily. nitroglycerin (NITROSTAT) 0.[address] 1 tablet under the tongue every 5 sun velvet as needed for Chest pain. Nutritional Supplements (VITAMIN D MAINTENANCE PO) Take by mouth Daily. Please note [facility] has a flaw in which medication corrections are listed as if they were disc ontinued at the time of the visit. I did not "discontinue" any the above medications unless noted in my assessment and plan; rather the patient was either not on these medications upon arrival today or I made refills or dose adjustments as otherwise noted. ALLERGIES Chaya is allergic to iodine; red dye; diltiazem hcl; latex; and lidocaine. MEDICAL, SURGICAL, AND PERSONAL HISTORY Past Medical History: Diagnosis Date Benign paroxysmal positional vertigo 03/13/2014 Carotid artery stenosis 03/13/2014 CHF (congestive heart failure) ([facility]) Coronary artery disease Hyperlipidemia Hypertension TN (myocardial infarction) ([facility]) Restless legs syndrome (RLS) 12/30/2010 Thyroid disease Past Surgical History: Procedure Laterality Date CARDIAC CATHERIZATION Right 08/25/2017 Procedure: CV LHC; Surgeon: Fly Christianson MD; Location: [facility] CV LAB CARDIAC CATHERIZATION Right 08/25/2017 Procedure: CV Graft Angio; Surgeon: Fly Christianson MD; Location: [facility] CV LAB CARDIAC CATHERIZATION Right 08/25/2017 Procedure: CV Cor Angio; Surgeon: Fly Christianson MD; Location: [facility] CV LAB CARDIAC CATHERIZATION Right 08/25/2017 Procedure: CV LV/RV; Surgeon: Fly Christianson MD; Location: [facility] CV LAB CORONARY ANGIOPLASTY CORONARY ARTERY BYPASS GRAFT 12/24/2013 CABG X4, WITH EVH - RIGHT AND LEFT SAPHENOUS VEIN,VOGEL ; Laterality: N/A; Surgeon: Golden Viera MD; Location: [facility] MAIN OR OTHER SURGICAL HISTORY 12/17/2013 Laterality: N/A; Surgeon: Erum Gerardo MD; Location: [facility] CARDIOVASCULAR LAB INSURANCE COORDINATOR Right 08/25/2017 Procedure: CV Thoracic Aorta Angiogram; Surgeon: Fly Christianson MD; Location: [facility] CV L AB STENT PLACEMENT ADDITIONAL VESS TONSILLECTOMY Family History: Her family history includes Stroke in her mother. Social History: She reports that she has never smoked. She has never used smokeless tobac co. She reports that she drinks alcohol. She reports that she does not use drugs. ROS 12 point ROS was completed andweakness, blurred vision, occasional dizziness PHYSICAL EXAM BP 134/72 Comment: Rt | Pulse 66 | Ht 1.651 m (5' 5") | Wt 73.3 kg (161 lb 9.6 oz) | SpO 2 96% | BMI 26.89 kg/m Body mass index is 26.89 kg/m. Physical Exam Constitutional: Appears well-developed and well-nourished in no apparent distress. Eyes conjunctiva and lids are normal in appearance EOMs are intact. Neck: Normal range of motion. Neck supple. JVP is normal with no thyromegaly. Carotids: Carotid upstrokes are normal and without bruits Pulmonary/Chest: Clear without crackles or wheezes Cardiovascular: Normal S1-S2 Abdominal: Soft. Bowel sounds are normal. No bruits auscultated. Abdominal aorta is not palpably enlarged. Lower extremities: No edema Musculoskeletal: No kyphosis or scoliosis. Extremities digits and nails negative for clubbing or cyanosis inspection of extremities re veal no inflammation or signs of ischemia. Skin: Skin is warm, dry and free of rashes. Neurological: alert and oriented to person, place, and time, normal affect. ECG: Not done today LABS Lab Results Component Value Date CHOL 200 (H) 08/07/2017 TRIG 145 08/07/2017 HDL 63 08/07/2017 LDL 108 (H) 08/07/2017 ALT 25 03/27/2018 AST 18 03/27/2018 CREA 1.01 (H) 03/29/2018 Thank you for allowing me to participate in the care of this patient. If you have any ques tions, please do not hesitate to contact me. Signed by: Fly Christianson MD 04/05/2018, 9:51 Patient Care Team: Doug García MD as PCP - General (Pulmonary Disease) Erum Gerardo MD as Physician (Cardiology) Portions of this report were transcribed using voice recognition software. Every effort was made to ensure accuracy; however, inadvertent computerized retail supervisor errors may be pres ent usually taking the form of 'sound alike' substitutions or incorrect pronouns. Please con tact me if there is confusion or concern about the above retail supervisor. [facility] Cardiology Clinic Main Office - [facility] [address], [address] [place], [place] [address] Office: Medical Records [facility] [place], [place] [address] Main: Physician referral and transfer line: Physician referral fax line: Medical Records phone: Medical Records fax: [place] [address] [address] [facility], [id number] [place] [address] Office: documented in this e ncounter Plan of Treatment Not on filedocumented as of this encounter Visit Diagnoses + + | Diagnosis | + + | Coronary artery disease due to calcified coronary lesion | + + documented in this encounter
--- OUTSIDE RECORDS SUMMARY | ~2019-07-30 | XMS | Encounter Summary ---
Demographics + + + | Address | [address] | | | [place] [address] | + + + | Home Phone [...] Providers + +------+ + | Care Meat Pumper Name | Role | Phone | + +------+ + PCP | Unavailable | + +------+ + Encounter Details +--------+ + + + + | Date | Type | Department | Care Team | Description | +--------+ + + + + | 03/13/ | Hospital | [facility] | Doug García MD | | | 2011 | Encounter | [facility] | [address] | | | | | [address] | [place] [address] | | | | | [place], [place] | [phone] | | | | | [address] | | | | | | [phone] | | | +--------+ + + + [...] | 0 | 04/06/20 | | | Zeprhzl-Sikzcg-[facility] | | | | 11 | 4 [...]
--- OUTSIDE RECORDS SUMMARY | ~2019-07-30 | XMS | Encounter Summary ---
Demographics + + + | Address | [address] | | | [place] [address] | + + + | Home Phone | | + + + | Preferred Language | Unknown | + + + | Marital Status | | + + + | Mormon Affiliation | 1001 | + + + | Race | Unknown | + + + | Ethnic Group | Unknown | + + + Author + + + | Author | [facility] | | | and [place] | + + + | Organization | [facility] | | | [...] Team Providers + +------+ + | Care Fluorescent Solution Mixer Name | Role | Phone | + +------+ + | Doug García MD | PCP | | + +------+ + Encounter Details +--------+ + + + + | Date | Type | Department | Care Team | Description | +--------+ + + + + | 08/24/ | Hospital | [facility] | Ivon Shelton | Coronary artery | | 2018 - | Encounter | [facility] | MD Adrian [address] | disease involving | | | | CARDIAC TRANSPLANT | [address] | coronary bypass | | 08/26/ | | [address] | [place] [address] | graft of [place]tawa | | 2018 | | [place], [place] | [phone] | heart with unstable | | | | [address] | | angina pectoris | | | | [phone] | | ([facility]); Paroxysmal | | | | | | atrial fibrillation | | | | | | ([facility]); Benign | | | | | | essential | | | | | | hypertension; | | | | | | Cerebrovascular | | | | | | accident (CVA) due | | | | | | to occlusion of | | | | | | right middle | | | | | | cerebral artery | | | | | | ([facility]); Mitral valve | | | | | | insufficiency, | | | | | | unspecified | | | | | | etiology; NSTEMI | | | | | | (non-ST elevated | | | | | | myocardial | | | | | | infarction) ([facility]); | | | | | | Chronic diastolic | | | | | | CHF (congestive | | | | | | heart failure), NYHA | | | | | | class 2 ([facility]); | | | | | | Non-rheumatic [...] Problem/Admission Diagnoses: NSTEMI (non-ST elevated myocardial infarction) ([facility]) Discharge Diagnoses: 1. NSTEMI: A. Minimal troponin leak in the face of rapid a-fib; suspected Type II OK B. Heart cath with prior closure of two of her SVGs (see below). C. Preserved EF at 60% D. Imdur added to her med regime 2. Known CAD: A. CABG X 4 in 2013 B. Had stopped her ASA and statin previously - both restarted. C. Preserved EF. 3. Paroxysmal atrial fibrillation: A. Single episode with RVR at [place] with spontaneous conversion to (and maintenance of) [...] Pinto presented to the emergency department in [place] on August 23 with complaints o f [...] positive. She was subs equently transported to [facility] for further evaluation. Ms. Pinto had [...] morning of 2017. Follow-[place]: [place] [address] [facility] [id number] [facility] [address] Message left for schedulers to call you for a 4-6 week f/u appointment. Doug García MD [address] [facility] [address] Schedule an appointment as soon as possible [...] 08/25/[address] Christianson: CONCLUSIONS: 1. diffuse [place] coronary artery disease with 100% mid LAD, [...] to contact you for a 4-6 week dzqohv-mh-sf sure and tel l them about when you will be in [place] and it will work for you. Follow-up with your primary care provider in one to 2 weeks-please call for an appointment. Heart healthy diet. Discharge References/Attachments Atrial Fibrillation, Discharge Instructions for (Uzbek) If patient has any further questions or [...] of CVA presumed embolic Fly Christianson MD [facility] Cardiology Portions of this chart were created with [employer] voice recognition software. Occasional wro ng-word or "sound-alike" substitutions may have occurred due to the inherent limitations of voice recognition software. Please read the chart carefully and recognize, using context, w here those substitutions have occurred. [facility] Cardiology Clinic Main Office - [facility] [address], [address] [place], [place] [address] Office: Medical Records [facility] [place], [place] [address] Main: Physician referral and transfer line: Physician referral fax line: Medical Records phone: Medical Records fax: [facility] [address] [place] [address] Main: Medical Records Electronically signed by Fly [...] to contact you for a 4-6 week vpzshy-md-st sure and tel l them about when you will be in [place] and it will work for you. Follow-up with your primary care provider in one to 2 weeks-please call for an appointment. Heart healthy diet. AttachmentsThe following attachments cannot be sent through Care Everywhere.Atrial Fibrilla tion, Discharge Instructions for (Uzbek)documented in this encounter Medications at Time of [...] HOSPITAL PROBLEM: NSTEMI (non-ST elevated myocardial infarction) ([facility]) CHIEF COMPLAINT: NSTEMI and PAF. ASSESSMENT AND PLAN * NSTEMI (non-ST elevated myocardial infarction) ([facility]) Assessment & Plan Troponin peak at 0.25 [...] metoprolol. K 3.8. Mag 2.3. TSH normal. [id number] Risk Score: 8 - 10.8% Estimated Stroke [...] CHF (congestive heart failure), NYHA class 2 ([facility]) Assessment & Plan BNP 1,[facility] [...] Portions of this chart were created with [employer] voice recognition software. Occasional wro ng-word or [...] + + | Glucose | 141 (H)Comment: [place] | 65 - 99 mg/dL | [facility] [...] + + | [facility]IKA M[facility]CH[facility] | [address] | [place] [address] | | | [facility] [...] + | [facility] | [address] | [place] [address] | | | [facility] | [...] | | MARKIE PINTO Study Date: 08/25/2017MRN: [id number] | | | Patient Location: [facility]DOB: 1940 | | | Age: [...] | | | Physician: Timothy SALINASocardiographer: Vane [id number]: | | | | | |Pulmonic Valve: [...] |Ordering Physician: MARIA ANTONIA SALINAS | | |Naval Science Teacher: Vane Viera | | |[id number]: | | | | | + + ----+ + + | Procedure Note | + + | Carlos Martínez Results In - 08/25/2017 7:05 PM PST | | Adult Echo | | Report | | | | Name: MARKIE PINTO Study Date: 08/25/2017 | | Patient Location: [place] [address] | | : 1940 Age: 76 yrs [...] Ordering Physician: MARIA ANTONIA SALINAS | | Naval Science Teacher: Vane Viera | | [id number]: | + + + +---------+ + + [...] | TRACEMASTER | | Duration:180 msP Horizontal Kilmichael:7 degP Front Kilmichael:65 degQ Onset:516 | | | msQRSD Interval:118 msQT Interval:476 msQTcB:476 msQTcF:476 msQRS | | | Horizontal Kilmichael:-77 degQRS Kilmichael:-31 degI-40 Horizontal Kilmichael:39 degI-40 | | | Front Kilmichael:68 degT-40 Horizontal Kilmichael:239 degT-40 Front Kilmichael:-56 degT | | | Horizontal Kilmichael:110 degT Wave Kilmichael: degS-T Horizontal Kilmichael:132 degS-T | | | Front Kilmichael:206 degSeverity:- ABNORMAL ECG -INTERP:SINUS | | | RHYTHMINTERP:LVH WITH IVCD AND SECONDARY REPOL ABNRMElectronically | | | signed by: ERUM MIMS 08-26-2017 10:50:00 | | |QTcB:476 ms | | |QTcF:476 ms | | |QRS Horizontal Kilmichael:-77 deg | | |QRS Kilmichael:-31 deg | | |I-40 Horizontal Kilmichael:39 deg | | |I-40 Front Kilmichael:68 deg | | |T-40 Horizontal Kilmichael:239 deg | | |T-40 Front Kilmichael:-56 deg | | |T Horizontal Kilmichael:110 deg | | |T Wave Kilmichael: deg | | |S-T Horizontal Kilmichael:132 deg | | |S-T Front Kilmichael:206 deg | | |Severity:- ABNORMAL ECG - | | |INTERP:SINUS RHYTHM | | |INTERP:LVH WITH IVCD AND SECONDARY REPOL ABNRM | | |Electronically signed by: ERUM MIMS 08-26-2017 10:50:00 | | + + + + + + + + | Performing | Address | City/State/Zipcode | Phone Number | | Organization | | | | + + + + + | [facility] | [address] | [place] [address] | [phone] | + + + + + PTT [...] + + | MONIKA MELCHOR | [address] | [place] [address] | | | [facility] [...] | | | Maria Antonia Bland NP [facility] READER: Fly Christianson MD | | | [...] | | | Interpreted by: Fly Christianson [facility] REPORT | | | Procedure: Single [...] + + | [facility] | [address] | [place] [address] | | | [facility] | [...] + | [facility] | [address] | [place] [address] | | | [facility] [...] + | MONIKA MELCHOR | [address] | [place] [address] | | | [facility] [...] + + | [facility] | [address] | [place] [address] | | | [facility] | [...] + + | Glucose | 136 (H)Comment: [place] | 65 - 99 mg/dL | [facility] [...] RUIZ | [address] | [place] [address] | | | [facility] [...] [address] | [place] [address] | | | [facility] | | | [...] + + | MONIKA MELCHOR | [address] | [place] [address] | | | [facility] [...] + + | MONIKA MELCHOR | [address] | [place] [address] | | | [facility] [...] | TRACEMASTER | | Duration:184 msP Horizontal Kilmichael:0 degP Front Kilmichael:26 degQ Onset:512 | | | msQRSD Interval:114 msQT Interval:460 msQTcB:460 msQTcF:460 msQRS | | | Horizontal Kilmichael:-83 degQRS Kilmichael:-34 degI-40 Horizontal Kilmichael:33 degI-40 | | | Front Kilmichael:61 degT-40 Horizontal Kilmichael:231 degT-40 Front Kilmichael:-56 degT | | | Horizontal Kilmichael:103 degT Wave Kilmichael:131 degS-T Horizontal Kilmichael:126 | | | degS-T Front Kilmichael:198 degSeverity:- ABNORMAL ECG -INTERP:SINUS | | | RHYTHMINTERP:LVH WITH IVCD AND SECONDARY REPOL ABNRMElectronically | | | signed by: ERUM MIMS 08-26-2017 10:50:06 | | |QTcB:460 ms | | |QTcF:460 ms | | |QRS Horizontal Kilmichael:-83 deg | | |QRS Kilmichael:-34 deg | | |I-40 Horizontal Kilmichael:33 deg | | |I-40 Front Kilmichael:61 deg | | |T-40 Horizontal Kilmichael:231 deg | | |T-40 Front Kilmichael:-56 deg | | |T Horizontal Kilmichael:103 deg | | |T Wave Kilmichael:131 deg | | |S-T Horizontal Kilmichael:126 deg | | |S-T Front Kilmichael:198 deg | | |Severity:- ABNORMAL ECG - [...] + | [facility] | [address] | [place] [address] | [phone] | + + + + + documented in this encounter Visit Diagnoses + + | Diagnosis | + + | NSTEMI (non-ST elevated myocardial infarction) (HCC) - Primary Acute myocardial | | infarction, subendocardial infarction, episode of care unspecified | + + | Coronary artery disease involving coronary bypass graft of ot[place] heart with unstable | | angina pectoris [...] of unspecified type of vessel, | | ot[place] or graft | + + documented in [...] | | | C (101.5 F), Starting [facility] 08/24/17 | | | | | | [...] | | | DAILY, First dose on [facility] 08/24/17 | | AM PST | | [...] DAILY PRN, Constipation, | | | Starting [facility] 08/24/17 at 1821, If | | | [...] | | | DAILY, First dose on [facility] 08/24/17 | | AM PST | | [...] | | | | | dose on [facility] 08/24/17 at 1845, Give | | | [...] | | | | | Intravenous, ONCE, [facility] 08/24/17 at | | | | | [...] DAILY PRN, | | | Constipation, Starting [facility] 08/24/17 | | | at 1821, If [...]
--- OUTSIDE RECORDS SUMMARY | ~2019-07-30 | XMS | Encounter Summary ---
Demographics + + + | Address | [address] | | | [place] [address] | + + + | Home Phone [...] Team Providers + +------+ + | Care Iuss Analyst Name | Role | Phone | [...] Medication Refill | | 2012 | | [facility] | [address]BBY [address] | | | | | Internal Medicine | [place] | | | | | [address] [facility] | [place] [address] | | | | | [place], [place] | [phone] | | | | | [address] | | | | | | [phone] | | | +--------+--------+ + + + [...]
--- OUTSIDE RECORDS SUMMARY | ~2019-07-30 | XMS | Encounter Summary ---
Demographics + + + | Address | [address] | | | [place] [address] | + + + | Home Phone [...] Team Providers + +------+ + | Care Commercial Helicopter Pilot Name | Role | Phone | + [...] | | [employer] | [address] | to acquired atrophy | | | | Internal Medicine | [place] [address] | of thyroid (Primary | | | | [address] | [phone] | Dx); Hypothyroidism, | | | | [place], [place] | | unspecified | | | | [address] | | hypothyroidism type | | | | [phone] | | | +--------+ + + + [...]
--- OUTSIDE RECORDS SUMMARY | ~2019-07-30 | XMS | Encounter Summary ---
Demographics + + + | Address | [address] | | | [place] [address] | + + + | Home Phone | | + + + | Preferred Language | Unknown | + + + | Marital Status | | + + + | Confucianist Affiliation | 1001 | + + + [...] Team Providers + +------+ + | Care Video Software Engineer Name | Role | Phone | + +------+ + | Doug García MD | PCP | | + +------+ + Encounter Details +--------+ + + + + | Date | Type | Department | Care Team | Description | +--------+ + + + + | 03/02/ | Hospital | [facility] | Doug García MD | Benign essential | | 2015 | Encounter | [facility] | [address] | hypertension; | | | | M[address]INE [address]Z [address] | [place] [address] | Hypothyroidism; | | | | [facility] | [phone] | Hyperlipidemia | | | | [place] [address] | | | | | | [phone] | | | +--------+ + + + [...] | + + + + + | [facility] | [address] | [place] [address] | | | [facility] | | | | [...] | | | | | ng/dL | [facility] | | | | | | [place] | | | | | | [facility] [...] + + + + + | [facility] | [address] | [place] [address] | | | [facility] | | | | [...] | | | | uIU/mL | [facility] | | | | | | [...] SHEIKH | [address] | [place] [address] | | | [facility] | | | | | LABORATORY [...] SHEIKH | [address] | [place] [address] | | | [facility] | | | | [...] + | MONIKA SHEIKH | [address] [facility] [address] | [place] [address] | | | [facility] | | | | [...]
--- OUTSIDE RECORDS SUMMARY | ~2019-07-30 | XMS | Encounter Summary ---
Demographics + + + | Address | [address] | | | [place] [address] | + + + | Home Phone [...] Providers + +------+ + | Care Senior Planner Name | Role | Phone | [...] [facility] | [place] [address] | | | | | [facility] [address] | [place] [address] | | | | | [address] | [phone] | | | | | [place], [place] | | | | | | [address] | | | | | | [phone] | | | +--------+--------+ + + + [...]
--- OUTSIDE RECORDS SUMMARY | ~2019-07-30 | XMS | Encounter Summary ---
Demographics + + + | Address | [address] | | | [place] [address] | + + + | Home Phone | | + + + | Preferred Language | Unknown | + + + | Marital Status | | + + + | Restoration Affiliation | 1001 | + + + | Race | Unknown | + + + | Ethnic Group | Unknown | + + + Author + + + | Author | [facility] | | | and [place] | + + + | Organization | [facility] | | | [...] Team Providers + +------+ + | Care Hazmat Technician Name | Role | Phone | [...] + + | 02/25/ | Office | [facility] | Doug García MD | Dizziness of unknown | | 2013 | Visit | [facility] | [address] | cause (Primary Dx); | | | | Internal Medicine | [place] [address] | Paroxysmal atrial | | | | [address] | [phone] | fibrillation (HCC); | | | | [place], [place] | | Chronic diastolic | | | | [address] | | CHF (congestive | | | | [phone] | | heart failure), NYHA | | | | | | class 2 (HCC); | | | | | | Obstructive sleep | | | | | | apnea; Coronary | | | | | | artery disease; | | | | | | Benign essential | | | | | | hypertension; | | | | | | Restless legs | | | | | | syndrome; | | | | | | Hypothyroidism; [...] + + + | Blood Pressure | 153/84 | 02/25/2014 2:24 PM | | | | | PDT | | + + + + + | Pulse | 86 | 02/25/2014 2:24 PM | | | | | PDT | | + + + + + | Temperature | - | - | | + + + + + | Respiratory Rate | 20 | 02/25/2014 2:24 PM | | | | | PDT | | + + + + + | Oxygen Saturation | 93% | 02/25/2014 2:24 PM | | | | | PDT | | + + + + + | Inhaled Oxygen | - | - | | | Concentration | | | | + + + + + | Weight | 72.6 kg (160 lb) | 02/25/2014 2:24 PM | | | | | PDT | | + + + + + | Height | 165.1 cm (5' 5") | 02/25/2014 2:24 PM | | | | | PDT | | + + + + + | Body Mass Index | 26.63 | 02/25/2014 2:24 PM | | | | | PDT [...] Instructions Patient Instructions Doug García MD - 02/25/2014 2:59 PM PDTFormatting of this note migh t be different from the original. Dizziness (Vertigo) and Balance Problems: Ensuring Your Safety Falls or accidents can lead to pain, broken bones, and fear of future falls. Protect yourse lf and others by preparing for episodes. Simple steps can help increase your safety at home and wherever you go. Lighting Keep all areas well lit. This helps your eyes send the right signals to the brain. It also makes you less likely to trip and fall. If bright lights make symptoms worse, dim the lights or lie in a dark room until the dizziness passes. Then turn the lights back to their normal level. Tips: Keep a flashlight by the bed. Place nightlights in bathrooms and hallways. Replace burned-out bulbs, or have someone replace them for you. Fall Prevention To reduce your risk of falling: Rise out of a bed or chair slowly. Wear low-heeled shoes that fit properly and have slip-resistant soles. Remove throw rugs. Clear clutter from walkways. Use handrails on stairs. Have handrails installed or adjusted if needed. Install grab bars in the bathroom. Don't use towel racks for balance. Use a shower stool. Also, apply adhesive strips to the shower or tub floor. Going Out With a little time and preparation, you can get around safely. Tips: Bring a cane or walking aid if needed. Give yourself plenty of time in case a dizziness episode begins. Be patient. If an activity like walking through a crowded shop causes you stress, you ma y not be ready for it yet. Asking for Help Don't be afraid to ask for help running errands, cooking meals, and doing exercise. Whether it's a friend, loved one, neighbor, or stranger on the street, a little help can make a wor ld of difference. Driving If you become dizzy or disoriented while driving, you could hurt yourself and others. That' s why it's best to avoid driving until symptoms subside. In some cases, your license may be temporarily held until it's safe for you to drive again. For safety: Ask a friend to drive for you. Take public transportation. Walk to stores and other places when you can. [phone] [facility], [address] [place] [id number]. All rights reserve d. This information is not intended as a substitute for professional medical care. Always fo llow your healthcare professional's instructions. documented in this encounter Progress Notes Doug García MD - 02/25/2014 8:48 PM PDTFormatting of this note might be different from t he original. [facility] CLINIC NOTE Patient Name: Chaya Chan 73 y.o. Date of : 1940 MR Number: [id number] Date of Visit: 02/25/2014 Patient Active Problem List Diagnosis Hypothyroidism Hyperlipidemia Obstructive sleep apnea Restless legs syndrome Benign essential hypertension Coronary artery disease Chronic sinusitis Allergic reaction to contrast dye NSTEMI (non-ST elevated myocardial infarction) ([facility]) Chronic diastolic CHF (congestive heart failure), NYHA class 2 (HCC) Stress hyperglycemia Paroxysmal atrial fibrillation (HCC) Postoperative anemia due to acute blood loss Hyponatremia Post pericardiotomy syndrome Second degree AV block Dizziness of unknown cause Subjective: Chaya Chan is a 73 y.o. female patient here today for follow up. Her main issue con tinues to be dizziness and associated nausea, with no vomiting. The nausea has been so bad that the patient has had decreased caloric intake. She gets quite unsteady on her feet. Fo rtunately, she has had no recent falls. She has been afebrile. She has a rare headache. N o syncopal episodes. No history of seizures. Patient's medications, allergies, past medical, surgical, social and family histories were reviewed and updated as appropriate. Patient's Medications New Prescriptions MECLIZINE (ANTIVERT) 25 MG TABLET Take 1 tablet by mouth every 6 hours as needed. Previous Medications ASCORBIC ACID (VITAMIN C) 1000 MG TABLET Take 1,000 mg by mouth Daily. ATORVASTATIN (LIPITOR) 40 MG TABLET Take 1 tablet by mouth Daily. FAMOTIDINE (PEPCID) 20 MG TABLET Take 1 tablet by mouth Daily. FERROUS GLUCONATE 324 (38 FE) MG TABLET Take 1 tablet 2 times daily (with meals). FOLIC ACID 1 MG TABLET Take 1 tablet by mouth Daily. HYDROCODONE-ACETAMINOPHEN 5-325 mg TABLET Take 1 tablet every 4 hours as needed for Nixon n. IBUPROFEN (ADVIL,MOTRIN) 600 MG TABLET Take 600 mg 2 times daily (with meals). LEVOTHYROXINE 75 MCG TABLET Take 1 tablet every morning (before breakfast). LISINOPRIL (PRINIVIL, ZESTRIL) 5 MG TABLET Take 5 mg by mouth Daily. MAGNESIUM (GNP MAGNESIUM) 250 MG TABLET Take 250 mg by mouth 2 times daily. METOPROLOL TARTRATE (LOPRESSOR) 25 MG TABLET Take 0.5 tablets by mouth 2 times daily. TRIAMTERENE-HYDROCHLOROTHIAZIDE (DYAZIDE) 37.5-25 MG PER CAPSULE Take 1 capsule by mout h Daily. ZINC SULFATE 220 MG CAPSULE Take [...] pruritus, no rash, no concerning skin lesions Psychiatric - anxiety, no depression, occ insomnia Objective: BP 153/84 | Pulse 86 | Resp 20 | Ht 1.651 m (5' 5") | Wt 72.576 kg (160 lb) | BMI 26.63 kg/ m2 | SpO2 93% Gen Liang [...] and associated orders for this visit: 1. Dizziness of unknown cause 2. Paroxysmal atrial fibrillation 3. Chronic diastolic congestive heart failure 4. Obstructive sleep apnea 5. Coronary artery disease 6. Benign essential hypertension 7. Restless legs syndrome 8. Hypothyroidism 9. Hyperlipidemia PLAN: Discussed the pathophysiology of dizziness and syncope and the differential diagnoses of ca usation. Will order following studies for further workup: Bilateral carotid artery Duplex study and tilt table test, various labs including CBC, CMP, sed rate, thyroid studies. I prescribed meclizine for now- 25 mg every 6 hours as needed for symptomatic control dizzi ness. Consider referral for [facility] physical therapy. Followup in a few weeks to go over the results of the above studies. Electronically signed by: Doug García 02/25/2014 20:48 [facility] documented in this enc nter Plan of Treatment Not on filedocumented as of this encounter Results EP TILT TABLE STUDY [...] please see Chart Review. | + + VAS Carotid Duplex Bilateral (02/27/2014 9:06 AM PDT) + + | Specimen | + + | | + + + + + | Narrative | Performed At | + + + | [address] | [facility] | | [id number] DATE OF SERVICE: 02/27/2014 PRIMARY CARE: Doug | RUDI - | | MD Ricky ORDERING: Doug [...] | | >70cm/sec, ICA:CCA >3.2 Criteria from [facility] Proc. | | | [id number] | | | CONCLUSION: Moderate stenosis (50-69% [...] might be | | different from the original.[address] | | [facility] [place] [address] DATE OF SERVICE: 02/27/2014PRIMARY CARE: Doug García [...] >70cm/sec, ICA:CCA >3.2 Criteria from | | [facility] Proc. [id number] CONCLUSION:Moderate | | stenosis (50-69% diameter reduction) [...] EDV >70cm/sec, ICA:CCA >3.2 | |Criteria from [facility] Proc. [id number] | | | | | |CONCLUSION: | [...] + + + | [place] | [facility], [address] | [place] [address] | [phone] | | - IMAGING - [facility] | [...] + | MONIKA SHEIKH | [address] | [place] [address] | | | [facility] | | [...] + + + + | MONIKA [facility] | [address] | [place] [address] | | | [facility] | | | | | LABORATORY [...] 34 (L)Comment: GFR <60: | >60 | [facility] | | | GFR | Chronic kidney disease, | ml/min/1.73m2 | [facility] | | | | if found over a 3 month | | [place] | | | | period.GFR <15: Kidney [...] + + + + | MONIKA [facility] | [address] | [place] [address] | | | [facility] | | | | | LABORATORY [...] + | MONIKA SHEIKH | [address] [facility] [address] [facility] [address] | [place] [address] | | | [facility] | | | | | LABORATORY | | | | + + + + + documented in this encounter Visit Diagnoses + + | Diagnosis | + + | Dizziness of unknown cause - Primary | + + | Paroxysmal atrial fibrillation (HCC) Atrial fibrillation | + + | Chronic diastolic CHF (congestive heart failure), NYHA class 2 (HCC) | + + | Obstructive sleep apnea Obstructive sleep apnea (adult) (pediatric) | + + | Coronary artery disease Coronary atherosclerosis of unspecified type of vessel, | | [place] or graft | + + | Benign essential hypertension Essential hypertension, benign | + + | Restless legs syndrome Restless legs syndrome (RLS) | + + | Hypothyroidism Unspecified hypothyroidism | + + | Hyperlipidemia Other and unspecified hyperlipidemia | + + documented in this encounter
--- OUTSIDE RECORDS SUMMARY | ~2019-07-30 | XMS | Encounter Summary ---
Demographics + + + | Address | [address] | | | [place] [address] | + + + | Home Phone | | + + + | Preferred Language | Unknown | + + + | Marital Status | | + + + | Buddhist Affiliation | 1001 | + + + | Race | Unknown | + + + | Ethnic Group | Unknown | + + + Author + + + | Author | [facility] | | | and [place] | + + + | Organization | [facility] | | [...] Team Providers + +------+ + | Care Armature Balancer Name | Role | Phone | + +------+ + PCP | Unavailable | + +------+ + Encounter Details +--------+ + + + + | Date | Type | Department | Care Team | Description | +--------+ + + + + | 10/11/ | Hospital | [facility] | [place], | | | 2012 | Encounter | [facility] | Erum Ragland MD [address] | | | | | [facility] [address] | | | | [facility] [address] | [address] [place], [place] | | | | | [address] [place], [place] | [address] | | | | | [address] | | | | | | [phone] | | | +--------+ + + + [...] | 0 | 04/06/20 | | | [id number] | | | | 11 | 4 [...]
--- OUTSIDE RECORDS SUMMARY | ~2019-07-30 | XMS | Encounter Summary ---
Demographics + + + | Address | [address] | | | [place] [address] | + + + | Home Phone | | + + + | Preferred Language | Unknown | + + + | Marital Status | | + + + | Nondenominational Affiliation | 1001 | + + + | Race | Unknown | + + + | Ethnic Group | Unknown | + + + Author + + + | Author | [facility] | | | and [place] | + + + | Organization | [facility] | | [...] Team Providers + +------+ + | Care Pathology Technologist Name | Role | Phone | [...] Description | +--------+---------+ + + + | 09/08/ | Office | [facility] | Doug García MD | Obstructive sleep | | 2015 | Visit | [facility] | [address] | apnea (Primary Dx); | | | | Internal Medicine | [place] [address] | Chronic diastolic | | | | [address] | [phone] | CHF (congestive | | | | [place], [place] | | heart failure), NYHA | | | | [address] | | class 2 (HCC); | | | | [phone] | | Paroxysmal atrial | | | | | | fibrillation (HCC); | | | | | | Coronary artery | | | | | | disease; Benign | | | | | | essential | | | | | | hypertension; | | | | | | Restless legs | | | | | | syndrome (RLS); | | | | | | Benign paroxysmal | | | | | | positional vertigo, | | | | | | bilateral; | | | | | | Hypothyroidism; [...] + + + | Blood Pressure | 122/64 | 09/08/2014 8:50 AM | | | | | PST | | + + + + + | Pulse | 91 | 09/08/2014 8:50 AM | | | | | PST | | + + + + + | Temperature | - | - | | + + + + + | Respiratory Rate | 20 | 09/08/2014 8:50 AM | | | | | PST | | + + + + + | Oxygen Saturation | 98% | 09/08/2014 8:50 AM | | | | | PST | | + + + + + | Inhaled Oxygen | - | - | | | Concentration | | | | + + + + + | Weight | 85.7 kg (189 lb) | 09/08/2014 8:50 AM | | | | | PST | | + + + + + | Height | 165.1 cm (5' 5") | 09/08/2014 8:50 AM | | | | | PST | | + + + + + | Body Mass Index | 31.45 | 09/08/2014 8:50 AM | | | [...] Instructions Patient Instructions Doug García MD - 09/08/2014 9:30 AM PST Continuous Positive Air Pressure (CPAP) Continuous [...] types of CPAP. Your doctor or CPAP rv service technician will help you decide whic h [...] as body position, sleep stage, and snoring. [id number] [employer]. [address] [place] [address]. All righ ts reserved. This information is not intended as a substitute for professional medical care. Always follow your healthcare professional's instructions. documented in this encounter Progress Notes Doug García MD - 09/08/2014 6:01 PM PSTFormatting of this note might be different from t eleonora original. [facility] CLINIC NOTE Patient Name: Chaya Chan 73 y.o. Date of : 1940 MR Number: [id number] Date of Visit: 09/08/2014 Patient Active Problem List Diagnosis Hypothyroidism Hyperlipidemia Obstructive sleep apnea Restless legs syndrome (RLS) Benign essential hypertension Coronary artery disease NSTEMI (non-ST elevated myocardial infarction) Chronic diastolic CHF (congestive heart failure), NYHA class 2 Paroxysmal atrial fibrillation Second degree AV block Benign paroxysmal positional vertigo Carotid artery stenosis Subjective: Chaya Chan is a 73 y.o. female patient here today for follow up. She is doing well. Still gets dizzy at times and she takes meclizine for this as needed. Her bili has been s table. She denies any chest pains or palpitations. She continues to use her CPAP regularly each night, averaging 7 hours of sleep. She feels that she is sleeping well. No snoring breakthrough. No excessive daytime sleepiness. Patient's medications, allergies, past medical, surgical, social and family histories were reviewed and updated as appropriate. Current Medications Details aspirin 81 mg EC tablet Take 81 mg by mouth nightly. atorvaSTATin 40 mg tablet Take 40 mg by mouth nightly. aka: LIPITOR cyanocobalamin 50 MCG tablet Take 50 mcg by mouth Daily. aka: VITAMIN B-12 famotidine 20 mg tablet Take 1 tablet by mouth Daily. aka: PEPCID ferrous gluconate 324 (38 FE) MG tablet Take 1 tablet by mouth 2 times daily (with breakfast & dinner). aka: FERGON folic acid 1 mg tablet Take 1 tablet by mouth Daily. GNP MAGNESIUM 250 MG tablet Generic drug: magnesium (as oxide) Take 250 mg by mouth 3 times daily. levothyroxine 75 MCG tablet Take 1 tablet by mouth every morning (before breakfast). aka: SYNTHROID, LEVOTHROID lisinopril 5 mg tablet Take 5 mg by mouth Daily. aka: PRINIVIL, ZESTRIL meclizine 25 mg tablet Take 1 tablet by mouth every 6 hours as needed. aka: ANTIVERT metoprolol tartrate 25 mg tablet Take 12.5 mg by mouth 2 times daily. HAS BEEN QUARTERING THE 50 MG TABLETS THAT THEY HAVE AND WILL RESUME CUTTING THE 25 MG'S IN HALF WHEN THEY ARE DONE WITH THE 50 MG TABS aka: LOPRESSOR triamterene-hydrochlorothiazide 37.5-25 MG per capsule Take 1 capsule by mouth Daily as needed. aka: DYAZIDE vitamin C 1000 MG tablet Take 1,000 mg by mouth Daily. zinc sulfate 220 mg capsule Take 220 mg by mouth 2 times daily. Allergies Allergen Reactions Iodine Anaphylaxis Diltiazem Hcl Latex Lidocaine Red Dye Review of Systems Constitutional - no recent weight loss, no fever, no chills, no night sweats, no weaknes s EENT- no vision changes, no eye pain, no earache, no sore throat Respiratory - no dyspnea, no orthopnea or PND, no cough, no hemoptysis, no wheezing Gastrointestinal - appetite good, bowel movements regular, no nausea, no abdominal pain , no melena or hematochezia Genitourinary - no dysuria, no gross hematuria Musculoskeletal - occasional joint pains, no muscle aches Endocrine - no temperature intolerance, no excessive sweating Skin - no pruritus, no rash, no concerning skin lesions Neurological - no headaches, no tremors, no dizziness, no syncope Psychiatric - no anxiety, no depression, no insomnia Objective: BP 122/64 | Pulse 91 | Resp 20 | Ht 1.651 m (5' 5") | Wt 85.73 kg (189 lb) | BMI 31.45 kg/m2 | SpO2 98% Gen Liang - alert, no distress, well-nourished [...] no pedal edema, pulses intact Skin - turgor normal, no rash, no active lesions Neurologic - mental status clear, no focal deficits Assessment and Plan: Chaya was seen today for follow-up. Diagnoses and associated orders for this visit: 1. Obstructive sleep apnea 2. Chronic diastolic CHF (congestive heart failure), NYHA class 2 3. Paroxysmal atrial fibrillation 4. Coronary artery disease 5. Benign essential hypertension 6. Restless legs syndrome (RLS) 7. Benign paroxysmal positional vertigo, bilateral 8. Hypothyroidism 9. Hyperlipidemia PLAN: We discussed the pathophysiology of sleep apnea and its treatment. The patient has been co mpliant with CPAP therapy and is clearly benefiting from it. I discussed the mechanism of a ction of CPAP in treating sleep apnea. I discussed desensitization techniques as well as janeth e imagery techniques that can be helpful. Also discussed the use of heated humidity. I william uraged the patient to continue regular usage. Will check labs prior to next visit including CBC with Differential, CMP, TSH, T4, Lipid Pa david. Continue current medications. Follow-up in 4 months. Electronically signed by: Doug García 09/08/2014 18:01 [facility] documented in this encou nter Plan of Treatment Not on filedocumented as of this encounter Results Lipid Panel (03/02/2015 8:20 AM PDT) + + + + + + | Component | Value | Ref Range | Performed | Pathologist | | | | | At | Signature | + + + + + + | Cholesterol | 217 (H) | <200 mg/dL | [facility] | | | | [facility] | | | | [facility] | [facility] | | | | | | [facility] | | + + + + + + | Triglycerid | 276 (H) | <200 mg/dL | [facility] | | | es | | | [...] | + + + + + | [facility] | [address] | [place] [address] | | | [facility] | | | | | LABORATORY [...] [facility] | | | | | | [place] | | | | | | [facility] [...] | + + + + + | [facility] | [address] | [place] [address] | | | [facility] | | | | | LABORATORY [...] | | | | | uIU/mL | [facility] | | | | | | [...] | + + + + + | [facility] | [address] | [place] [address] | | | [facility] | | | | | LABORATORY [...] | + + + + + | [facility] | [address] [facility] | [place] [address] | | | [facility] | | | | | LABORATORY [...] | + + + + + | [facility] | [address] | [place] [address] | | | [facility] | | | | | LABORATORY [...] (HCC) Atrial fibrillation | + + | Coronary artery disease Coronary atherosclerosis of unspecified type of vessel, | | paimi[place] or graft | + + | Benign essential hypertension Essential hypertension, benign | + + | Restless legs syndrome (RLS) | + + | Benign paroxysmal positional vertigo, bilateral | + + | Hypothyroidism Unspecified hypothyroidism | + + | Hyperlipidemia Other and unspecified hyperlipidemia | + + documented in this encounter
--- OUTSIDE RECORDS SUMMARY | ~2019-07-30 | XMS | Encounter Summary ---
Demographics + + + | Address | [address] | | | [place] [address] | + + + | Home Phone [...] Team Providers + +------+ + | Care Model Artists' Name | Role | Phone | + [...] | Required | | Procedures | Diane, PUNCH CARD OPERATOR | AND SKIN | | | | | Eval & Treat | 1505 | [facility] | | | | | - Dr. Belle | YAMILE GRULLON | [address] | | | | [address] | [place], [place] | [address] | | | | | | [address] | [address] | | | | | | Phone: | RUDI | | | | | | [phone] | [place], [place] | | | | | | Fax: | [address] | | | | | | [phone] | Phone: | | | | | | | [phone] | | | | | | | Fax: | | | | | | | [phone] | +--------+ + + + + + [...] (hypertension) | | 2013 | Visit | [facility] | ABBY Contreras 1505 | (Primary Dx); Rash; | | | | Internal Medicine | YAMILE GRULLON | Nausea; CORONARY | | | | [address] [facility] | [place] [address] | ARTERY DISEASE; | | | | [place], [place] | [phone] | CEREBRAL ISCHEMIA; | | | | [address] | | CARDIOMYOPATHY | | | | [phone] | | DILATED ISCHEMIC; | | | [...] She has recently been t raveling through [place] and [place] assisting her son on a height of [...] Take 1 tablet by mouth nightly. B [id number]-QD ( VITAMIN B 50/B-COMPLEX) TABS once a [...] 10 mg twice daily 2. Rash - [facility] - AMB [...] of unspecified type of vessel, | | [place]ne or graft | + + | CEREBRAL ISCHEMIA Other generalized ischemic cerebrovascular disease | + + | CARDIOMYOPATHY DILATED ISCHEMIC Other specified forms of chronic ischemic heart | | disease | + + | Hypertension Unspecified essential hypertension | + + documented in this encounter
--- OUTSIDE RECORDS SUMMARY | ~2019-07-30 | XMS | Encounter Summary ---
Demographics + + + | Address | [address] | | | [place] [address] | + + + | Home Phone [...] + | Author | [facility] | | | and [place] | + + + | Organization | [facility] | | | and [...] Team Providers + +------+ + | Care Permaculture Designer Name | Role | Phone | + +------+ + PCP | Unavailable | + +------+ + Encounter Details +--------+ + + + + | Date | Type | Department | Care Team | Description | +--------+ + + + + | 12/06/ | Hospital | [facility] | ChristiansonFly, | | | 2012 - | Encounter | [facility] | [address] | | | | | CARDIAC TRANSPLANT | [address] [place], | | | 12/10/ | | [address] | [place] [address] | | | 2011 | | [place], [place] | [phone] | | | | | [address] | | | | | | [phone] | Steven Dyer MD | | | | | | [address] | | | | | | [address] [place], | | | | | | [place] [address] | | | | | | [phone] | | | | | | | [...] 1940 ADMISSION DATE: 12/07/2011 DISCHARGE DATE: 12/11/2011 [id number] / [id number] ADMITTING DIAGNOSIS: 1. Non-ST elevated myocardial infarction. [...] CT scan 11/29/2011. PROCEDURE: Dr. Fly Christianson, [facility] 12/10/2011 performed: 1. Left heart catheterization 2. Coronary angiogram 3. Left ventriculogram CONCLUSION: 1. Occluded circumflex with good collaterals. 2. Left ventricular ejection fraction 50% 3. Medical treatment recommended. COURSE OF HOSPITAL STAY: The patient is a 71-year-old woman with a known history of lo ry artery disease and was transferred to [facility] with chest pain and po sitive [...] day. The myocardial perfusion MARKIE PINTO ADM:12/07/11 [id number] 12/11/11 DIS IN DISCHARGE SUMMARY [id number] [facility] ONI DavilaP ES B [facility] Fly Christianson MD, [facility] B THIS REPORT IS CONFIDENTIAL AND NOT TO BE RELEASED WITHOUT PROPER AUTHORIZATION. [facility] scan was positive for ischemia and [...] visual problems and po ssible referral to property management bookkeeper, and also ongoing MARKIE PINTO ADM:12/07/11 [id number] 12/11/11 DIS IN DISCHARGE SUMMARY [id number] [facility] ABBY Davila [facility] Fly Christianson MD, FACC B THIS REPORT IS CONFIDENTIAL AND NOT TO BE RELEASED WITHOUT PROPER AUTHORIZATION. [facility] treatment for hypertension. 3. The patient will followup with Dr. Erum Gerardo at [place] [facility] in 4 to 6 w eeks, sooner if she experiences any problems. 4. The patient will continue on Plavix and as pirin, and has been strongly advised to adhere to her medication regimen with knowledge arnel t her double vision could be a consequence of extremely high blood pressure. ABBY Braxton MD P A VT/dkm #[id number] cc: MD Fly Lainez MD Michael E. Ring, MD Vera Talseth, ARNP Electronically Signed 12/19/11 1627 ABBY Davila Electronically Signed 12/21/11 1443 Fly Christianson MD, [facility] MARKIE PINTO ADM:12/07/11 [id number] 12/11/11 DIS IN DISCHARGE SUMMARY [id number] [facility] ABBY Davila [facility] Fly Christianson MD, FAC B THIS REPORT [...] | 0 | 04/06/20 | | | Irimlyl-Esxgti-RT | | | | 11 | 4 [...] + + + | Exam Performed Location: [facility] [place] HEAD | MISCELANIOUS | | WITHOUT [...] | could represent a hemangioma. S: SQ ([id number]) Signed by: TESSA Duenas | | | MD LOULOU | | + + + + + | Procedure Note | + + | Mauricio, Rad Conversion - 05/09/2013 9:08 AM PDT [facility] [...] parietal bone,which could represent a hemangioma.S: SQ ([id number]) | | Signed by: TESSA JAMIL MD [...] | | | | | |S: SQ ([id number]) Signed by: TESSA JAMIL MD | + + + +---------+ + + | Performing | Address | City/State/Zipcode | Phone Number | | Organization | | | | + +---------+ + + | MISCELLANEOUS LAB | | | [phone] | + +---------+ + + | MISCELANIOUS LAB | | | [phone] | + +---------+ + + PTT (12/11/2011 [...] + | MONIKA MELCHOR | [address] | [place] [address] | | | [facility] [...] + + | Glucose | 164 (H)Comment: Kyrgyz | 65 - 99 mg/dL | [place]LL[place] [...] + | MONIKA MELCHOR | [address] | [place] [address] | | | [facility] [...] + | MONIKA MELCHOR | [address] | [place] [address] | | | [facility] [...] + | MONIKA MELCHOR | [address] | [place] [address] | | | [facility] [...] + + + | Exam Performed Location: [facility] | MISCELANIOUS | | MARKIE PINTO | LAB | | F [id number] Steven Dyer | | | ADM IN Z655 01W [id number] | | | Steven Dyer 1940 71 | | | 12/09/2011 EXAM# TYPE/EXAM [id number] NUC/NUC MYOCARD | | | PERF SPECT MULT STRESS PORTION OF A SINGLE ISOTOPE | | | PERSANTINE NUCLEAR STRESS TEST DATE OF : | | | 1940 DATE OF STUDY: 12/09/2011 | | | REFERRING PHYSICIAN: Dr. Pradeep Reyes ATTENDING | | | LICENSING WORKER: Dr. Fly Christianson STUDY STATUS: | | | Routine. TYPE OF STUDY: Persantine. 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 She has a past history of prior [...] (CONTINUED) MARKIE PINTO | | | F [id number] | | | Steven Dyer ADM IN | | | Z655 01W [id number] Steven Dyer | | | 1940 71 12/09/2011 EXAM# TYPE/EXAM | | | [id number] NUC/NUC MYOCARD PERF SPECT MULT <Continued> | | | 2. Overall ejection fraction 53% with inferolateral area | | | of akinesis evident on the ventriculography. | | | REPORT ELECTRONICALLY SIGNED | | | 12/09/2011 (5745) Reviewed By: | | | FLY CHRISTIANSON MD Authenticated By: | | | Fly Christianson | | | CC: Doug García | | | Dictated Date/Time: 12/09/2011 (6497) Transcribed | | | Date/Time: 12/09/2011 (0250) Clinical Engineering Director: [place] | | | Printed Date/Time: 12/09/2011 (6470) PAGE 3 | | | Signed Report S: MT | | + + + + + | Procedure Note | + + | Carlos Martínez Conversion - 05/09/2013 9:05 AM PDT Exam Performed Location: [facility] | | [place] MARKIE PINTO F | | [id number] Steven Dyer ADM IN Z655 01W [id number] | | Steven Dyer 1940 71 12/09/2011EXAM# | | [id number] NUC/NUC MYOCARD PERF SPECT MULT STRESS PORTION OF A SINGLE | | ISOTOPE PERSANTINE NUCLEAR STRESSTEST DATE OF : 1940 DATE OF | | STUDY: 12/09/2011 REFERRING PHYSICIAN: Dr. Pradeep Reyes ATTENDING | | LICENSING WORKER: Dr. Fly Christianson STUDY STATUS: Routine. TYPE OF STUDY: | | Persantine. INDICATION FOR TEST: Subacute non Q wave ID in [id number] | | with a history of non Q ID in March 2011, andnoncompliant with medication | [...] Report | | (CONTINUED) MARKIE PINTO F [id number] | | Steven Dyer ADM IN Z655 01W [id number] | | Steven Dyer 1940 71 12/09/2011EXAM# | | TYPE/[id number] NUC/NUC MYOCARD PERF SPECT MULT <Continued> DISPOSITION: | | [facility] | | [...] Chest | | pain and non Q ID. She has apast history of prior coronary [...] Report (CONTINUED) MILLIEMARKIE Adrian | | F [id number] Steven Dyer ADM IN Z655 01W | | [id number] Steven Dyer 1940 71 12/09/2011EXAM# | | TYPE/[id number] NUC/NUC MYOCARD PERF SPECT MULT <Continued> 2. Overall | | ejection fraction 53% with inferolateral area ofakinesis evident on the | | ventriculography. REPORT ELECTRONICALLY SIGNED 12/09/2011(6093) | | Reviewed By: FLY CHRISTIANSON MD | | Authenticated By: Fly Christianson CC: Doug García Dictated Date/Time: | | 12/09/2011 (0942) Transcribed Date/Time: 12/09/2011 (2945) | | Clinical Engineering Director: PAR9 Printed Date/Time: 12/09/2011 (7802) PAGE 3 | | Signed ReportS: MT [...] | | | MARKIE PINTO F | |[id number] | | | | Steven Dyer ADM IN Z655 01W | |[id number] | | | | Steven Dyer 1940 71 12/09/2011 | | | | | |EXAM# TYPE/EXAM | |[id number] NUC/NUC MYOCARD PERF SPECT MULT | | [...] FOR STUDY: Chest pain and non Q ID. She has a | |past | | [...] | | | MARKIE PINTO F | |[id number] | | | | Steven Dyer ADM IN Z655 01W | |[id number] | | | | Steven Dyer 1940 71 12/09/2011 | | | | | |EXAM# TYPE/EXAM | |[id number] NUC/NUC MYOCARD PERF SPECT MULT | | <Continued> | | | | 2. Overall ejection fraction 53% with inferolateral area of | |akinesis | | evident on the ventriculography. | | | | | | REPORT ELECTRONICALLY SIGNED 12/09/2011 | |(9690) | | Reviewed By: FLY CHRISTIANSON MD [...] | | | | Dictated Date/Time: 12/09/2011 (2433) | | Transcribed Date/Time: 12/09/2011 (9052) | | Clinical Engineering Director: [place] | | Printed Date/Time: 12/09/2011 (2866) | | | | PAGE 3 Signed Report | |S: MT | + + + +---------+ + + | Performing | Address | City/State/Zipcode | Phone Number | | Organization | | | | + +---------+ + + | MISCELLANEOUS LAB | | | [phone] | + +---------+ + + | MISCELANIOUS LAB | | | [phone] | + +---------+ + + NM Cardiovascular Stress Test (Non-Nuc) (12/09/2011 1:48 PM PDT) + + | Specimen | + + | | + + + + + | Narrative | Performed At | + + + | Exam Performed Location: [facility] | MISCELANIOUS | | MARKIE PINTO | LAB | | F [id number] Steven Dyer | | | ADM IN Z655 01W [id number] | | | Steven Dyer 1940 71 | | | 12/09/2011 EXAM# TYPE/EXAM [id number] NUC/NUC CARDIO | | | STRESS TRACING O STRESS PORTION OF A SINGLE ISOTOPE | | | PERSANTINE NUCLEAR STRESS TEST DATE OF : | | | 1940 DATE OF STUDY: 12/09/2011 | | | REFERRING PHYSICIAN: Dr. Pradeep Reyes ATTENDING | | | LICENSING WORKER: Dr. Fly Christianson STUDY STATUS: | | | Routine. TYPE OF STUDY: Persantine. 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, and | | | [...] | MARKIE PINTO | | | F [id number] Steven Dyer | | | ADM IN Z655 01W [id number] | | | Steven Dyer 1940 71 | | | 12/09/2011 EXAM# TYPE/EXAM [id number] NUC/NUC CARDIO | | | STRESS TRACING O <Continued> | | | DISPOSITION: The patient was stable upon [facility] | | | stress [...] | | | REPORT ELECTRONICALLY SIGNED 12/09/2011 (5521) | | | Reviewed By: ABBY DAVILA | | | Authenticated By: Jered Goldstein | | | CC: Doug | | | G Ricky Dictated Date/Time: 12/09/2011 (2884) | | | Transcribed Date/Time: 12/09/2011 (9957) | | | Clinical Engineering Director: [place] Printed Date/Time: 12/09/2011 | | | (7809) PAGE 2 Signed Report S: | | | MT | | + + + + + | Procedure Note | + + | Mauricio, Rad Conversion - 05/09/2013 9:30 AM PDT Exam Performed Location: [facility] | | [facility] [place] MARKIE PINTO F | | [id number] Steven Dyer ADM IN Z655 01W [id number] | | Steven Dyer 1940 71 12/09/2011EXAM# | | TYPE/[id number] NUC/NUC CARDIO STRESS TRACING O STRESS PORTION OF A SINGLE | | ISOTOPE PERSANTINE NUCLEAR STRESSTEST DATE OF : 1940 DATE OF | | STUDY: 12/09/2011 REFERRING PHYSICIAN: Dr. Pradeep Reyes ATTENDING | | LICENSING WORKER: Dr. Fly Christianson STUDY STATUS: Routine. TYPE OF STUDY: | | Persantine. INDICATION FOR TEST: Subacute non Q wave ID in [id number] | | with a history of non Q ID in March 2011, andnoncompliant with medication | [...] Signed Report | | (CONTINUED) MARKIE PINTO [id number] | | Steven Dyer ADM IN Z655 01W [id number] | | Steven Dyer 1940 71 12/09/2011EXAM# | | TYPE/[id number] NUC/NUC CARDIO STRESS TRACING O <Continued> DISPOSITION: | | [facility] The | | final result of test is pending reading by Dr. Fly Lozano or one of his | | partners. This will be dictated under separate cover. The stress portion of this | | nuclear stress test was dictatedby: ABBY Braxton | | REPORT ELECTRONICALLY SIGNED 12/09/2011(2347) Reviewed By: JERED | | H ABBY GOLDSTEIN Authenticated By: Jered Goldstein CC: | | Doug García Dictated Date/Time: 12/09/2011 (6962) Transcribed | | Date/Time: 12/09/2011 (9904) Clinical Engineering Director: [place] Printed Date/Time: | | 12/09/2011 (4941) PAGE 2 Signed ReportS: MT | | [...] | | | MARKIE PINTO F | |[id number] | | | | Steven Dyer ADM IN Z655 01W | |[id number] | | | | Steven Dyer 1940 71 12/09/2011 | | | | | |EXAM# TYPE/EXAM | |[id number] NUC/NUC CARDIO STRESS TRACING O | | [...] Braxton | | | | | | REPORT ELECTRONICALLY SIGNED 12/09/2011 | |(8742) | | Reviewed By: ABBY DAVILA | [...] | | | | Dictated Date/Time: 12/09/2011 (6738) | | Transcribed Date/Time: 12/09/2011 (7868) | | Clinical Engineering Director: [place] | | Printed Date/Time: 12/09/2011 (3666) | | | | PAGE 2 Signed Report | |S: MT | + + + +---------+ + + | Performing | Address | City/State/Zipcode | Phone Number | | Organization | | | | + +---------+ + + | MISCELLANEOUS LAB | | | [phone] | + +---------+ + + | MISCELANIOUS LAB | | | [phone] | + +---------+ + + POC Glucose [...] [address] | [place] [address] | | | [facility] | | | | | [...] | [address] | [place] [address] | | | [facility] | | | | | LABORATORY [...] | [address] | [place] [address] | | | [facility] [...] + | MONIKA MELCHOR | [address] | [place] [address] | | | [facility] [...] + + | BLADEJOHNMami MELCHOR | [address] | [place] [address] | | | [facility] [...] + | MONIKA MELCHOR | [address] | [place] [address] | | | [facility] [...] + | BLADEJOHNMami MELCHOR | [address] | [place] [address] | | | [facility] [...] + | MONIKA MELCHOR | [address] | [place] [address] | | | [facility] [...] to | | | | | | [email or web address] | | | | | | Click [...] + | MONIKA MELCHOR | [address] | [place] [address] | | | [facility] [...] [address] | [place] [address] | | | [facility] [...] + + + | Exam Performed Location: [facility] SINGLE | MISCELANIOUS | | VIEW CHEST [...] | | | cardiopulmonary abnormalities. S: SQ ([id number]) Signed by: RAFAEL Kimbrough | | | MD FREDY | | + + + + + | Procedure Note | + + | Mauricio, Rad Conversion - 05/09/2013 9:03 AM PDT Exam Performed Location: [facility] | | at [facility] CHEST X-RAYCLINICAL INFORMATION:Chest pain.COMPARISON:Chest | | x-ray 03/31/2011.FINDINGS:The soft tissues of the chest wall have a normal appearance. | | Thereare mild degenerative changes of the thoracic spine. The heart,mediastinum, vargas, | | and lungs are normal.IMPRESSION:There are no active cardiopulmonary abnormalities.S: SQ | | ([id number]) Signed by: RAFAEL DANIEL MD | | [...] | | | | | |S: SQ ([id number]) Signed by: RAFAEL DANIEL MD | + + + +---------+ + + | Performing | Address | City/State/Zipcode | Phone Number | | Organization | | | | + +---------+ + + | MISCELLANEOUS LAB | | | [phone] | + +---------+ + + | MISCELANIOUS LAB | | | [phone] | + +---------+ + + Troponin I [...] [address] | [place] [address] | | | [facility] [...] + + + | Glucose | 99Comment: Kyrgyz | 65 - 99 mg/dL | ELLIE [...] + | MONIKA MELCHOR | [address] | [place] [address] | | | [facility] | | | | | [...] + | MONIKA MELCHOR | [address] | [place] [address] | | | [facility] [...] Usual oral | 0.9 - 1.2 | [place]LL[place] JUAN ANTONIO | | | | anticoagulant [...] + | MONIKA MELCHOR | [address] | [place] [address] | | | [facility] [...] + | MONIKA MELCHOR | [address] | [place] [address] | | | [facility] [...] + | MONIKA MELCHOR | [address] | [place] [address] | | | [facility] | | | | | LABORATORY | | | | + + + + + | [place] ROMANO | | | | | [employer] | | | | + + + + + documented in this encounter Visit Diagnoses Not on filedocumented in this encounter
--- OUTSIDE RECORDS SUMMARY | ~2019-07-30 | XMS | Encounter Summary ---
Demographics + + + | Address | [address] | | | [place] [address] | + + + | Home Phone | | + + + | Preferred Language | Unknown | + + + | Marital Status | | + + + | Latter-Day Affiliation | 1001 | + + + | Race | Unknown | + + + | Ethnic Group | Unknown | + + + Author + + + | Author | [facility] | | | and [place] | + + + | Organization | [facility] | | | [...] Team Providers + +------+ + | Care Production Trainer Name | Role | Phone | + [...] + + | 03/28/ | Hospital | [facility] | Chris Roberts | NSTEMI (non-ST | | 2018 - | Encounter | [facility] | MD Saulo [address] [place] [address] | elevated myocardial | | | | [facility] [address] | infarction) (HCC); | | 03/30/ | | [address] [place], | [place] [address] | Coronary artery | | 2018 | | [place] [address] | [phone] | disease involving | | | | [phone] | | winnebago coronary | | | | | | artery of winnebago | | | | | | heart with angina | | | | | | pectoris ([facility]); | | [...] | | | | infarction) ([facility]) | +--------+ + + + + [...] CAD followed by Dr. Christianson in the [place] office. Known CAD, prior CABG. NSTEMI in setting of Afib RVR Aug 2017. Cath as noted above. Med treated. Had an other [place] Sep 2017 with trop 15 that was med managed. Echo 2 weeks ago looked stable- EF 55%. Doing fine until day prior to admission when developed onset weakness, chest pain. She was transferred from [facility] and admitted Admit [facility] due to no beds at [facility]. Trop has risen to 28 per [facility] but only reached a maximum of 8.2 at [place], discharge troponin 3.9. EKG with nonspecific ST [...] is to keep that. Follow-Up: [facility] [id number] [place] [id number] A [facility] [id number] On 04/05/[address] Christianson [...] Portions of this chart were created with Mobile [employer] voice recognition software. Occasional wro ng-word or "sound-alike" substitutions may have occurred due to the inherent limitations of voice recognition software. Please read the chart carefully and recognize, using context, w here those substitutions have occurred. [facility] Main Office - [address], [address] [place], [place] [address] Office: Medical Records [facility] [place] [place] [address] Main: Physician referral and transfer line: Physician referral fax line: Medical Records phone: Medical Records fax: [facility] [address] [place] [address] Main: Medical Records Electronically signed by Anabela Vizcarra MD at 018 12:16 PM PDT Associated attestation - Anabela Vizcarra MD - 03/30/2018 12:16 PM [id number] woman wit h known CAD status post [...] through Care Everywhere.Aspirin, ASA ch ewable tablets (Swazi)Clopidogrel tablets (Swazi)Metoprolol extended-release tablets (En glish)Isosorbide Mononitrate extended-release tablets (Swazi)Heart Attack, Discharge Instr uctions for (Swazi)documented in this encounter Medications at Time of [...] & Plan She was transferred here from [facility] through [facility] for considerat ion for catheterization. I personally [...] before a moderate-sized more distal OM bra [facility]. When Dr. Christianson did her heart cath in August, he recommended continued medical therapy and conservative management with no good interventional options. 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 Continue aspirin, [...] Portions of this chart were created with Mobile Shareholder voice recognition software. Occasional wro ng-word or "sound-alike" substitutions may have occurred due to the inherent limitations of voice recognition software. Please read the chart carefully and recognize, using context, w here those substitutions have occurred. [place], Nadine Kimbrough RN - 03/28/2018 6:30 PM PDTPt transferred from [facility] for chest pain/Nstemi. A/O, VSS upon arrival. [...] PROVIDE NCE | | | | by [facility] [address], | | SACRED | | | | [place] [address] | | HEART | | | |Performed by [facility] [address], [place] [address] | | MEDICAL | | | | [...] SACRED | [address] | [place] [address] | | | [facility] | | | | | LABORATORY CERNER [...] | | | | | seconds.Performed by [facility] | | | | | | [address], | | | | | | [place] [address] | | | | + + + + + + + + | Specimen | + + | Blood specimen | | (specimen) | + + + + + + + | Performing | Address | City/State/Zipcode | Phone Number | | Organization | | | | + + + + + | MONIKA MELCHOR | [address] | [place] [address] | | | [facility] | | | | | [...] | | | | | seconds.Performed by [facility] | | | | | | [address], | | | | | | [place] [address] | | | | + + + + + + + + | Specimen | + + | Blood specimen | | (specimen) | + + + + + + + | Performing | Address | City/State/Zipcode | Phone Number | | Organization | | | | + + + + + | MONIKA MELCHOR | [address] | [place] [address] | | | [facility] | | | | | [place] [...] PROVIDE NCE | | | | by [facility] [address], | | [place]CRED | | | | [place] [address] | | HEART | | | |Performed by [facility] [address], [place] [address] | | MEDICAL | | | | [...] + + | MONIKA MELCHOR | [address] | [place] [address] | | | [facility] | | | | | [...] | | MEDICAL | | | | [facility] [address], | | CENTER | | | | [place] [address] | | LABORATORY | | | | [...] + + | [facility] | [address] | [place] [address] | | | [facility] | | | | | LABORATORY CERNER [...] by | | | | | | [facility] [address], | | | | | | [place] [address] | | | | + + + + + + + + | Specimen | + + | Blood specimen | | (specimen) | + + + + + + + | Performing | Address | City/State/Zipcode | Phone Number | | Organization | | | | + + + + + | MONIKA MELCHOR | [address] | [place] [address] | | | [facility] | | | | | [...] | | | | | seconds.Performed by [facility] | | | | | | [address], | | | | | | [place] [address] | | | | + + + + + + + + | Specimen | + + | Blood specimen | | (specimen) | + + + + + + + | Performing | Address | City/State/Zipcode | Phone Number | | Organization | | | | + + + + + | MONIKA MELCHOR | [address] | [place] [address] | | | [facility] | | | | | [place] [...] of unspecified type of | | vessel, winneb[place] or graft | + + | NSTEMI (non-ST elevated myocardial infarction) (HCC) Acute myocardial infarction, | | subendocardial infarction, episode of care unspecified | + + | Coronary artery disease involving [place] coronary artery of win[place] heart with angina | | pectoris (HCC) [...] | | | | | dose on [facility] 03/29/18 at 0900 | | AM PDT [...] If not tolerated use | | | [place] 10/325 if ordered., | | + +---+ [...]
--- OUTSIDE RECORDS SUMMARY | ~2019-07-30 | XMS | Encounter Summary ---
Demographics + + + | Address | [address] | | | [place] [address] | + + + | Home Phone | | + + + | Preferred Language | Unknown | + + + | Marital Status | | + + + | Samaritan Affiliation | 1001 | + + + [...] Team Providers + +------+ + | Care Process Tech Name | Role | Phone | + [...] | Physical | Diagnoses | Ricky, | [facility] | | | Services | Therapy / | Benign | MD Doug | [address] | | | Required | Rehabilitatio | paroxysmal | [address] | | | | n | positional | [place] | [place], [place] | | | | | vertigo, | Ave. | [address] | | | | | unspecified | [place], [place] | Phone: | | | | | laterality | [address] | [phone] | | | | | | Phone: | Fax: | | | | | | [phone] | [phone] | | | | | | Fax: | | | | | | | [phone] | | +--------+ + + + + [...] Cerebrovascular | | 2018 | Visit | [facility] | [address] | accident (CVA) due | | | | Internal Medicine | [place] [address] | to occlusion of | | | | [address] | [phone] | right middle | | | | [place], [place] | | cerebral artery | | | | [address] | | ([facility]) (Primary Dx); | | | | [phone] | | Benign paroxysmal | | | | | | positional vertigo, | | | | | | unspecified | | | | | | laterality; History | | | | | | of stroke; Coronary | | | | | | artery disease | | | | | | involving nondalton | | | | | | coronary artery of | | | | | | nondalton heart without | | | | | | angina pectoris; | | | | | | Benign essential | | | | | | hypertension; | | | | | | Obstructive sleep | | | | | | apnea; Paroxysmal | | | | | | atrial fibrillation | | | | | | ([facility]) | +--------+---------+ [...] might be different from t he original. [facility] CLINIC NOTE Patient Name: Chaya Chan 76 y.o. Date of : 1940 MR Number: [id number] Date of Visit: 08/17/2017 Patient Active Problem [...] her daughter who is a nurse at [employer]. Few weeks ago, th e daughter had [...] of stroke 4. Coronary artery disease involving nondalton coronary artery of nondalton heart without angina pectoris 5. Benign essential [...] Electronically signed by: Doug García 08/17/2017 13:55 [facility] Doug García MD at 9:20 [...] + + | Coronary artery disease involving nondalton coronary artery of nondalton heart without | | angina pectoris | + + | Benign essential hypertension Essential hypertension, benign | + + | Obstructive sleep apnea Obstructive sleep apnea (adult) (pediatric) | + + | Paroxysmal atrial fibrillation (HCC) Atrial fibrillation | + + documented in this encounter"
--- OUTSIDE RECORDS SUMMARY | ~2019-07-30 | XMS | Encounter Summary ---
Demographics + + + | Address | [address] | | | [place] [address] | + + + | Home Phone [...] | + + +---------+ + | Frances Pinto | ECON | Unknown | | + + +---------+ + Care Team Providers + +------+ + | Care Administration Vice President Name | Role | Phone | + +------+ + | Pepper García MD | PCP | | + +------+ + Reason for Visit + + + | Reason | Comments | + + + | Shortness of Breath | | + + + Auth/Cert +--------+--------+ + + + + | Status | Reason | Specialty | Diagnoses / | Referred By | Referred To | | | | | Procedures | Contact | Contact | +--------+--------+ + + + + | Closed | | | Diagnoses | | | | | | | Atrial | | | | | | | fibrillation | | | | | | | ([facility]) | | | +--------+--------+ + + + + Encounter Details +--------+ + + + + | Date | Type | Department | Care Team | Description | +--------+ + + + + | 01/06/ | Hospital | [facility] | Tao Knight, | Atrial fibrillation | | 2013 - | Encounter | [facility] | [address] | ([facility]) (Primary Dx) | | | | MEDICAL [address] [place], [place] | | | 01/15/ | | [address] | [address] | | | 2013 | | [place], [place] | | | | | | [address] | Kathy Allen, | | | | | [phone] | MD [address] | | | | | | [address] [place], [place] | | | | | | [address] | | | | | | | | | | | | Pepper García MD | | | | | | [address] | | | | | | [place] [address] | | | | | | [phone] | | | | | | | | | | | | Gage Castañeda MD | | | | | | [address] | | | | | | [place] [address] | | | | | | [phone] | | | | | | | | | | | | Steven Patel MD | | | | | | [address] | | | | | | [place] [address] | | | | | | [phone] | | | | | | | | | | | | Maury Elizabeth MD | | | | | | [address] | | | | | | [place] | | | | | | [address] | | | | | | | [...] + + + | Blood Pressure | 138/85 | 01/15/2014 4:00 PM | | | | | PDT | | + + + + + | Pulse | 69 | 01/15/2014 4:00 PM | | | | | PDT | | + + + + + | Temperature | 36.8 C (98.3 F) | 01/15/2014 4:00 PM | | | | | PDT | | + + + + + | Respiratory Rate | 18 | 01/15/2014 4:00 PM | | | | | PDT | | + + + + + | Oxygen Saturation | 94% | 01/15/2014 4:00 PM | | | | | PDT | | + + + + + | Inhaled Oxygen | - | - | | | Concentration | | | | + + + + + | Weight | 74 kg (163 lb 3.2 | 01/11/2014 3:04 AM | | | | oz) | PDT | | + + + + + | Height | 170.2 cm (5' 7") | 01/06/2014 5:07 AM | | | | | PDT | | + + + + + | Body Mass Index | 25.56 | 01/06/2014 5:07 AM | | | | | PDT [...] documented as of this encounter Discharge Summaries Deandra Lerma RN - 01/15/2014 5:11 PM PDTTransfer[facility] treat paroxysmal a fib. Report called to Miguelina Mcclellan. Pt is comfortab le and in nsr at time of discharge. Tele dcd. lMaury campa MD - 01/15/2014 12:04 PM [facility] Pt. Name/Age/: Markie Pinto 73 y.o. 1940 Date of Admission: 01/06/2014 Date of Discharge: 01/15/2014 Admitting Physician: Kathy Allen MD Primary Care Provider: Pepper García MD Discharging Physician: Maury Elizabeth MD, [facility], [facility], [facility] Principle Discharge Diagnoses: Paroxysmal atrial fibrillation, rhythm also complicated with significant pauses, SVT and M obitz type II heart block Secondary Discharge Diagnoses: Coronary artery disease Benign essential hypertension Postoperative anemia due to acute blood loss Consultants: [facility] by phone consultations on multiple occations Reason for Admission: Please refer to the H&P for full details. In short, this is a 73 y.o. female wit h a history of atherosclerotic heart disease and recent coronary artery bypass surgery who presented with symptoms related to atrial fibrillation. She was admitted to the hospital fo r further evaluation and treatment of her situation. Problem-Oriented Hospital Course: The patient was admitted to the ACU by the hospitalist service. Concerning the patient's a trial fibrillation she is been treated with a beta candice. She developed evidence of signi ficant pauses as well as Mobitz type II heart block. Multiple conversations were had dov chavarria the hospitalist team at our hospital and [facility] concerning management of her s ituation. In spite of our efforts to help her situation her problems have continued. I rev iewed the case with Dr. Shelton today who recommended amiodarone. Because her hospital do es not have the capacity to do that treatment with her with the current staffing in the tele metry/ICU beds she has agreed to transfer the patient to [facility] for fu rther treatment. Code Status: Full Code Disposition: Patient is being transferred to [facility] Discharge Condition: fair Follow Up Appointments: Will be followed by Dr. Ivon Shelton at [facility] Studies With Pending Results: None Greater than 30 minutes were spent on discharge and coordination of post-hospital care. Electronically signed by: Maury Elizabeth MD, [facility], [facility], [facility] 01/15/2014 12:04 [facility] Steven calderon MD - 8:43 AM PDT [facility] HOSPITALIST DISCHARGE SUMMARY Pt. Name/Age/: Markie Pinto 73 y.o. 1940 Date of Admission: 01/06/2014 Date of Discharge: 01/13/2014 Primary Care Provider: Pepper García Discharging Physician: Steven Patel MD [facility], [facility] Consultants: Phone consultation cardiology 2 separate phone calls made Primary Discharge Diagnoses: Active Hospital Problems Second degree AV block Paroxysmal atrial fibrillation (HCC) Coronary artery disease Postoperative anemia due to acute blood loss Hyperlipidemia Benign essential hypertension Acute on chronic diastolic CHF (congestive heart failure), NYHA class 2 (HCC) Pleural effusion on left *Post pericardiotomy syndrome Hyponatremia Hypothyroidism Obstructive sleep apnea Secondary Discharge Diagnoses: Past Medical History Diagnosis Date Coronary artery disease Hyperlipidemia Hypertension Thyroid disease [place] (myocardial infarction) (HCC) CHF (congestive heart failure) ([facility]) Discharge Medications: Markie Pinto Home Medication Instructions DAVINA:[id number] Printed on:01/13/14 0843 Medication Information magnesium (GNP MAGNESIUM) 250 MG tablet Take 250 mg by mouth 2 times daily. aspirin 81 mg EC tablet Take 81 mg by mouth Daily. atorvaSTATin (LIPITOR) 40 mg tablet Take 1 tablet by mouth Daily. psyllium (KONSYL) 28.3 % PACK Take 1 packet by mouth 3 times daily. ferrous gluconate (FERGON) 324 (38 FE) MG tablet Take 1 tablet by mouth 2 times daily (with breakfast & dinner). folic acid 1 mg tablet Take 1 tablet by mouth Daily. HYDROcodone-acetaminophen (NORCO) 5-325 mg per tablet Take 1 tablet by mouth every 4 hours as needed for Pain. metoprolol tartrate (LOPRESSOR) 25 mg tablet Take 1 tablet by mouth 2 times daily. pantoprazole (PROTONIX) 40 mg tablet Take 1 tablet by mouth every morning (before breakfast). famotidine (PEPCID) 20 mg tablet Take 1 tablet by mouth Daily. furosemide (LASIX) 40 mg tablet Take 1 tablet by mouth Daily. ibuprofen (ADVIL,MOTRIN) 600 MG tablet One pill twice a day for 7 days. Then one pill once each day for 7 days then stopp levothyroxine (SYNTHROID, LEVOTHROID) 75 MCG tablet Take 1 tablet by mouth every morning (before breakfast). potassium chloride SA (K-DUR,KLOR-CON) 10 MEQ tablet Take 1 tablet by mouth 2 times daily. warfarin (COUMADIN) 2 mg tablet 2 pills once each day. Procedures: None Pertinent Labs: Admission the hemoglobin hematocrit 8.3/24.1% patient received 4 units of t yped specific packed red cells. Her discharge hemoglobin hematocrit is 9.8/2 7.4% Platelets 404 Discharge prothrombin time 3.2 Discharge electrolytes normal discharge creatinine 1.0 Serial troponins: On admission troponin 1.332 days before discharge is trended down to 0.91 Pertinent Imaging Studies: Chest x-ray shows a moderate left pleural effusion. Day before discharge is recheck. The infusion is clearing with medical management. Reason for Admission And Hospital course summary: This very nice 73-year-old patient was admitted with a chief complaint of shortness of kermit th and weakness. 12 days prior to admission she underwent a four-vessel bypass surgery. Upon presentation the patient was found to be in atrial fibrillation. She did have rapid v entricular response with a pulse rate in the 123 range. Patient received IV metoprolol. Costa ortiz was very anemic on admission and received blood. During the blood transfusion the sarbjit ient converted to sinus rhythm. The patient did have one additional episode of atrial fibri llation during this admission. That rate was controlled with beta blockers and digoxin. An d the patient did convert to sinus rhythm. 2 days before discharge the patient did have a t ransient second-degree heart block. She tolerated this well. Her functional rate was in th e 70s with occasional dropped QRS complexes. When the second degree heart block developed I obtained phone consultation with a member of the patient's cardiology group in [place]. I discontinued digoxin at that time. The patie nt had no additional episodes of second degree heart block. Patient has been in a sinus rhy thm for 36 hours prior to discharge. Patient has been out of atrial fibrillation for over 7 2 hours. The patient was in atrial fibrillation the peak heart rates were in the high 120s. On the day of discharge his patient is smiling and ambulating. She is eating and gaining s trength. She has no respiratory compromise from the pleural effusion. Clinically he is imp roving without thoracentesis. Thoracentesis was not performed due to the bleeding risks of full anticoagulation and end-stage use for the post pericardotomy syndrome. Follow-Up: Erum Gerardo MD [address] [facility] [address] Schedule an appointment as soon as possible for a visit Pepper García MD [address] [facility] [address] Schedule an appointment as soon as possible for a visit His patient should have regular prothrombin time checks. We recommended a prothrombin time checked in 48 hours after discharge. I would recommend weekly prothrombin time checks unti l she is off of NSAIDs and stable. Like the patient to follow closely with her explosive operator grenade Dr. Erum Armstrong. We also scheduled an appointment with Dr. Pepper García. Greater than 30 minutes was spent on discharge and coordination of post-hospital care. documented in this en counter Discharge Instructions AttachmentsThe following attachments cannot be sent through Care Everywhere.DISCHARGE INSTR UCTIONS FOR HEART FAILURE ([place])documented in this encounter Medications at Time of [...] documented as of this encounter Progress Notes Ernie Cordova RN - 01/15/2014 5:05 AM PDTTele Note: Pt SR at start of shift and conve rted back to afib (ongoing trend during hospitalization), rate controlled at rest but increa sed to 130's w/activity, no acute events noted this shift. lim, Maury Chavarria MD - 01/14/2014 10:23 PM PDT [facility] PROGRESS NOTE Pt. Name/Age/: Markie Pinto 73 y.o. 1940 Med. Record Number: [id number] Date of admission: 01/06/2014 Hospital Day: 9 SUBJECTIVE: Chief Complaint/Reason for Admission: Palpitations HPI: Markie Pinto 's chart was reviewed in detail, and she was seen and examined by me. Ov erall, her symptoms are improving. She she continues to have paroxysmal atrial fibrillation . She is being anticoagulated with warfarin. Patient is status post recent coronary artery bypass surgery. She had some degree of anemia that is improved after recent transfusions. She did have a short run of Mobitz type 2 second degree heart block. OBJECTIVE: Temp: 36.3 C (97.3 F), Pulse: 79 , Resp: 18 , BP: 139/77 mmHg, SpO2 93 % on room air at flow rate 2 L/min Temp Min: 36.3 C (97.3 F) Max: 36.6 C (97.9 F) Current Weight:74.027 kg (163 lb 3.2 oz) Admit Weight: 74.39 kg (164 lb) Intake/Output Summary (Last 24 hours) at 01/14/14 2223 Last data filed at 01/14/14 2200 Gross per 24 hour Intake 2130 ml Output 1000 ml Net 1130 ml POC GLUCOSE Date/Time Value Range Status 12/27/2013 0747 97 65 - 99 mg/dL Final 12/26/2013 2125 140* 65 - 99 mg/dL Final 12/26/2013 1653 135* 65 - 99 mg/dL Final 12/26/2013 1137 158* 65 - 99 mg/dL Final 12/26/2013 0932 114* 65 - 99 mg/dL Final 12/26/2013 0728 93 65 - 99 mg/dL Final Scheduled Meds: ascorbic acid 1,000 mg Oral Daily atorvaSTATin 40 mg Oral Daily famotidine 20 mg Oral Daily ferrous gluconate 324 mg Oral BID WC folic acid 1 mg Oral Daily furosemide 40 mg Oral Daily ibuprofen 600 mg Oral BID WC levothyroxine 75 mcg Oral QAM AC magnesium (as oxide) 250 mg Oral BID metoprolol tartrate 25 mg Oral BID pharmacy to dose warfarin Other Pharmacy Consult potassium chloride SA 10 mEq Oral BID senna 8.6 mg Oral BID [COMPLETED] warfarin 4 mg Oral Once - Warfarin zinc sulfate 220 mg Oral BID PRN Meds: acetaminophen, bisacodyl, HYDROcodone-acetaminophen, lactulose, magnesium hydroxide, metopr olol tartrate, morphine, ondansetron, polyethylene glycol Exam: Gen Liang - Female appearing her stated age, in no apparent distress Lungs - clear to auscultation, no wheezes or rales and unlabored breathing Heart - normal rate, regular rhythm, normal S1, S2, no murmurs, rubs, clicks or gallops Abdomen - soft, non-tender, without masses or organomegaly Back - negative Musc/Skel - no joint tenderness, deformity or swelling Extremities - no pedal edema, no clubbing or cyanosis Skin - no rashes Neurologic - nl symmetric DTR Psychiatric - oriented to time, place and person Diagnostic Studies: Available data and images were reviewed personally. Significant results and findings are a ddressed here or in the Assessment and Plan. Recent Labs Basename 01/12/14 0610 WBC 4.5 HGB 9.8* HCT 27.4* MCV 91.7 BANDSPCT -- Recent Labs Basename 01/13/14 0600 01/12/14 0610 NA 135 131* K 4.0 4.1 CL 94* 92* CO2 35* 34* BUN 7* 11 CREA 1.00 1.00 GLU 103 93 CALCIUM 9.3 9.0 MG 2.5 -- PHOS -- -- ASSESSMENT & PLAN: Paroxysmal atrial fibrillation (HCC) Continue the current treatment as outlined in the chart with the beta blockers. Warfarin b eing dose by the clinical pharmacist. INR was 3.1 today. Coronary artery disease The patient appears to be medically stable this regard. Second degree AV block The patient had a short run of Mobitz type II. Continue to monitor on telemetry unit. Postoperative anemia due to acute blood loss Recheck blood count in the morning. DVT Prophylaxis Coumadin with INR goal 2-3 Code Status Full Code CMS Documentation I expect this patient will be hospitalized for greater than 2-midnights and expect the post -hospital plan to be discharge to home or to an adult foster home. [facility] Cata Snow Pharm D - 01/14/2014 10:07 AM PDT Lab Results Component Value Date/Time CREA 1.00 01/13/2014 0600 PLT 404* 01/12/2014 0610 PLT 188 06/27/2011 PLT 171 03/31/2011 0608 INR 3.1* 01/14/2014 0610 warfarin 4mg po today. Electronically signed by: Cata Oneill PHARMD 01/14/2014 10:06 Kat Galvan RN - 01/14/2014 3:44 AM PDTA-fib w/ventricular rate 50-70's Steven Vo MD - 01/13/2014 7:21 PM PDTFormat ting of this note might be different from the original. [facility] PROGRESS NOTE Pt. Name/Age/: Markie Pinto 73 y.o. 1940 Med. Record Number: [id number] Date of admission: 01/06/2014 Hospital Day: 8 SUBJECTIVE: This patient was actually discharged today. I went through an extended discharge planning process with the patient. About 30 minutes after I finished her discharge note, the patient spontaneously reverted into atrial fibrillation with a rapid ventricular response. Her hea rt rate was in the 120s. I readmitted the patient. We restarted her peripheral IV. The pa tient received a higher dose of metoprolol at 50 mg twice a day as well as some IV metoprolo l. The single agent seems to be controlling her heart rate nicely. She however remains in atrial fibrillation now with a heart rate resting at 100. She is able to ambulate. Her dys pnea is good. Her blood pressure is good. It's likely that she can go home tomorrow despit e being in atrial fibrillation now that her rate is better controlled on the higher doses of metoprolol. OBJECTIVE: Temp: 36.4 C (97.6 F), Pulse: 76 , Resp: 16 , BP: 121/64 mmHg, SpO2 94 % on room air at flow rate 2 L/min Temp Min: 36.3 C (97.4 F) Max: 36.8 C (98.2 F) Current Weight:74.027 kg (163 lb 3.2 oz) Admit Weight: 74.39 kg (164 lb) Intake/Output Summary (Last 24 hours) at 01/13/14 1922 Last data filed at 01/13/14 1856 Gross per 24 hour Intake 1970 ml Output 3175 ml Net -1205 ml Scheduled Meds: ascorbic acid 1,000 mg Oral Daily atorvaSTATin 40 mg Oral Daily famotidine 20 mg Oral Daily ferrous gluconate 324 mg Oral BID WC folic acid 1 mg Oral Daily furosemide 40 mg Oral Daily ibuprofen 600 mg Oral BID WC levothyroxine 75 mcg Oral QAM AC magnesium (as oxide) 250 mg Oral BID metoprolol tartrate 25 mg Oral BID pharmacy to dose warfarin Other Pharmacy Consult potassium chloride SA 10 mEq Oral BID senna 8.6 mg Oral BID [COMPLETED] warfarin 4 mg Oral Once - Warfarin zinc sulfate 220 mg Oral BID Exam: Gen Liang - smiling and generally very pleasant. She is discouraged she was unable to go home today. Lungs less dullness on the left side good air movement Heart -irregularly irregular rhythm soft unchanged systolic murmur Abdomen -not reexamined Musc/Skel not examined Extremities no edema Skin -no rash Diagnostic Studies: Available data and images were reviewed personally. Significant results and findings are a ddressed here or in the Assessment and Plan. LAB review her INR today was 3.2. Her yesterday she still slightly elevated at 4.48. Her digoxin level is 0.7 ASSESSMENT & PLAN: Active Hospital Problems Second degree AV block Paroxysmal atrial fibrillation (HCC) Coronary artery disease Postoperative anemia due to acute blood loss Hyperlipidemia Benign essential hypertension Acute on chronic diastolic CHF (congestive heart failure), NYHA class 2 (HCC) Pleural effusion on left *Post pericardiotomy syndrome Hyponatremia Hypothyroidism Obstructive sleep apnea Past Medical History Diagnosis Date Coronary artery disease Hyperlipidemia Hypertension Thyroid disease FL (myocardial infarction) (HCC) CHF (congestive heart failure) (HCC) PLAN: As long as the patient continues to improve her rate is controlled on her current danita sures it's likely that the patient will be discharged tomorrow morning. [facility] Valeri Box RN - 6:48 PM PDTTelemetry shows atrial fib since this AM. See tracings. Vent rate gen erally 85-100 Lindsay Reynaga Chaplain - 01/13/2014 10:49 AM PDTPt is cheerful and talkative, walking in the halls. She hopes to go home soon. She has no specific pc needs at this time. She feels well support ed by her taoism which is the [facility] [place]. Cata Snow, CeferinoD - 01/13/2014 8:10 AM PDTFor matting of this note might be different from the original. Markie Pinto is currently on warfarin for a diagnosis of atrial fibrillation with a t arget INR of 2-3. Date 01/13/14 01/12/201401/11 INR 3.2 3 2.7 2.6 3.1 3.5 2.7 2.3 Warfarin Dose 4 mg 3 mg 4mg 4mg 5mg 0mg 5mg 5mg Pharmacy will order warfarin 4 mg today and continue to follow INR. Cata Oneill 01/13/2014 8:07 Kat Galvan RN - 01/13/2014 4:33 AM PDTTele note: SR rate 60-70's, occasional unifocal pvc's noted. Intermittent 1st degree AVB 0.22 Steven Vo MD - 01/12/2014 6:11 PM PDTThis patient is stable this afternoo n. The patient's chest x-ray is improved with decrease in the left pleural effusion. I did obtain a phone consultation with cardiology today. Employment Program Representative recommended that I stopped the digoxin (which I had already done) and continue to monitor. Hopefully the patient's ra te will be managed with beta blockers alone. This patient's atrial fibrillation converted d uring the patient's first blood transfusion. The patient's atrial fibrillation rate was not too difficult to control. The patient has no clear-cut history of prior atrial fibrillatio n but did proceed palpitations. Today the patient had no further episodes of heart block. The patient is stable tomorrow he probably discharge home. At this point I'm going to wait on thoracentesis do to the patient's anticoagulation and risks and medical improvement.Elect ronically signed by Steven Patel MD at 01/12/2014 6:12 PM Maya Loya RN - 01/13/20 14 3:33 PM PDTTelemetry shows sinus rhythm with first degree AVB and IVCD. No ectopy seen. No further second degree heart block noted today so far. Lyn Fitzgerald PharmD - 01/12/2014 11:23 AM PDTFormatti antoni of this note might be different from the original. Markie Pinto is currently on warfarin for a diagnosis of atrial fibrillation with a t arget INR of 2-3. Date 01/12/201401/11 INR 3 2.7 2.6 3.1 3.5 2.7 2.3 Warfarin Dose 3 mg 4mg 4mg 5mg 0mg 5mg 5mg Platelet Count Date Value Range Status 01/12/2014 404* 150 - 400 K/uL Final 06/27/2011 188 Final 03/31/2011 171 150 - 400 K/uL Final No results found for this basename: PTT INR Date Value Range Status 01/12/2014 3.0* 0.9 - 1.3 Final Usual oral anticoagulant range: 2.0 to 3.0 High level oral anticoagulant range: 2.5 t o 3.5 Pharmacy will order warfarin 3 mg today and follow INR. Lyn Rodgers 01/12/2014 11:21 Steven Vo MD - 01/12/2014 8:42 AM PDT [facility] PROGRESS NOTE Pt. Name/Age/: Markie Pinto 73 y.o. 1940 Med. Record Number: [id number] Date of admission: 01/06/2014 Hospital Day: 7 SUBJECTIVE: This patient has had no further episodes of nausea or vomiting. She tries to ambulate. Sh e is very compliant. She simply doesn't feel well do to general weakness. She does have so me shortness of breath with activity which is unchanged. This morning on telemetry the patient has developed second degree AV block. Worse evidentl y a short episode of Mobitz type 2 second degree heart block a few days ago. It has become more prominent. The patient is asymptomatic from this. OBJECTIVE: Temp: 36.9 C (98.4 F), Pulse: 75 , Resp: 20 , BP: 142/80 mmHg, SpO2 96 % on room air at flow rate 2 L/min Temp Min: 36.7 C (98.1 F) Max: 36.9 C (98.4 F) Current Weight:74.027 kg (163 lb 3.2 oz) Admit Weight: 74.39 kg (164 lb) Intake/Output Summary (Last 24 hours) at 01/12/14 0843 Last data filed at 01/12/14 0800 Gross per 24 hour Intake 2180 ml Output 5850 ml Net -3670 ml Scheduled Meds: ascorbic acid 1,000 mg Oral Daily atorvaSTATin 40 mg Oral Daily famotidine 20 mg Oral Daily ferrous gluconate 324 mg Oral BID WC folic acid 1 mg Oral Daily furosemide 40 mg Oral Daily ibuprofen 600 mg Oral BID AC levothyroxine 75 mcg Oral QAM AC magnesium (as oxide) 250 mg Oral BID metoprolol succinate 12.5 mg Oral BID pharmacy to dose warfarin Other Pharmacy Consult potassium chloride SA 10 mEq Oral BID senna 8.6 mg Oral BID [COMPLETED] warfarin 4 mg Oral Once - Warfarin zinc sulfate 220 mg Oral BID Exam: Gen Liang - smiling pleasant able to eat breakfast Lungs patient does have known as in the left chest this was probably present yesterday a nd not noticed on exam otherwise no rales Heart -there is a soft unchanged over 6 systolic murmur along the left heart border I do n't hear any irregularities Abdomen -bowel tones present nontender Musc/Skel no change Extremities no edema Skin -no rash Diagnostic Studies: Available data and images were reviewed personally. Significant results and findings are a ddressed here or in the Assessment and Plan. LAB review hematocrit to stable at 27.4 hemoglobin 9.8 Prothrombin time INR 3.0 sodium improved to 131 potassium 4.1 ASSESSMENT & PLAN: Active Hospital Problems Paroxysmal atrial fibrillation (HCC) Coronary artery disease Postoperative anemia due to acute blood loss Hyperlipidemia Benign essential hypertension Acute on chronic diastolic CHF (congestive heart failure), NYHA class 2 (HCC) Pleural effusion on left *Post pericardiotomy syndrome Hyponatremia Hypothyroidism Obstructive sleep apnea Past Medical History Diagnosis Date Coronary artery disease Hyperlipidemia Hypertension Thyroid disease FL (myocardial infarction) (HCC) CHF (congestive heart failure) (HCC) PLAN: With a second-degree AV block, I discontinued the patient's digoxin. I have ordered a BT PROFESSIONAL TUTOR magnesium level repeat electrolytes and of course will leave the patient on telemetr y. I will obtain a phone consultation with the patient's cardiology group. That call is pe nding at this time. Consider ultrasound-guided thoracentesis per radiology is available. H is orders reviewed. [facility] Maya Loya RN - 0 01/11/2014 3:49 PM PDTTelemetry monitor show sinus rhythm with borderline first degree AVB a t times with IVCD. No ectopy noted. evyn Knight Chaplain - 01/11/2014 2:01 PM PDTPt is alert and oriented, re sting. She is feeling better,enjoying watching the rain. She says she has good support from family and her taoism. She asked for prayer. No other pc needs at this time. Pc will follow as needed. en Weiss LPN - 01/11/2014 1:03 PM PDTPatient has been independent and ambulating in caitlin ls most of day. Seems to be forgetful with details. Chest incision is healing well. Tele has shown in and out of sinus rhythm. Nauseated with lunch and then passed. Electronically sign ed by Ren Mace LPN at 01/11/2014 1:06 PM Lyn Fitzgerald, PharmD - 01/11/2014 1:02 PM PDT Markie Pinto is currently on warfarin for a diagnosis of atrial fibrillation with a t arget INR of 2-3. Date 01/11/201401/10 INR 2.7 2.6 3.1 3.5 2.7 2.3 Warfarin Dose 4 mg 4mg 5mg 0mg 5mg 5mg Platelet Count Date Value Range Status 01/11/2014 414* 150 - 400 K/uL Final 06/27/2011 188 Final 03/31/2011 171 150 - 400 K/uL Final No results found for this basename: PTT INR Date Value Range Status 01/11/2014 2.7* 0.9 - 1.3 Final Usual oral anticoagulant range: 2.0 to 3.0 High level oral anticoagulant range: 2.5 t o 3.5 Pharmacy will order warfarin 4 mg today and follow INR. Lyn Rodgers 01/11/2014 12:58 Steven Vo MD - 01/11/2014 12:42 PM PDT [facility] PROGRESS NOTE Pt. Name/Age/: Markie Pinto 73 y.o. 1940 Med. Record Number: [id number] Date of admission: 01/06/2014 Hospital Day: 6 SUBJECTIVE: I am assuming care of this patient. Patient underwent coronary artery bypass grafting on J 2013. His head post cardiotomy syndrome. She has had paroxysmal atrial fibrillatio n and has been anticoagulated because of that. Patient has had post surgical anemia and mil d renal insufficiency. 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 It was recommended that the patient continue ibuprofen 600 3 times a da y for 7 days and then 600 twice a day for 7 days and then 600 daily for 7 days. Patient is now hospital day 6. This patient was feeling very well earlier this morning. The patient was up in the hallway ambulating. The patient did wish to go home earlier this morning. At the time that I made rounds, the patient developed acute vomiting 1 episode. She's not a bowel movement for 3 d ays. She has had no stigmata of bleeding. She has no dominant pain. She has no chest pain other than mild incisional discomfort. She has no shortness of breat h. OBJECTIVE: Temp: 36.3 C (97.4 F), Pulse: 65 , Resp: 16 , BP: 157/85 mmHg, SpO2 96 % on room air at flow rate 2 L/min Temp Min: 36.3 C (97.4 F) Max: 36.9 C (98.4 F) Current Weight:74.027 kg (163 lb 3.2 oz) Admit Weight: 74.39 kg (164 lb) Intake/Output Summary (Last 24 hours) at 01/11/14 1242 Last data filed at 01/11/14 0900 Gross per 24 hour Intake 840 ml Output 2200 ml Net -1360 ml Scheduled Meds: ascorbic acid 1,000 mg Oral Daily atorvaSTATin 40 mg Oral Daily digoxin 250 mcg Oral Daily famotidine 20 mg Oral Daily ferrous gluconate 324 mg Oral BID WC folic acid 1 mg Oral Daily ibuprofen 600 mg Oral TID WC levothyroxine 75 mcg Oral QAM AC magnesium (as oxide) 250 mg Oral BID metoprolol succinate 12.5 mg Oral BID pharmacy to dose warfarin Other Pharmacy Consult potassium chloride SA 10 mEq Oral BID senna 8.6 mg Oral BID [COMPLETED] warfarin 4 mg Oral Once - Warfarin zinc sulfate 220 mg Oral BID Exam: Gen Liang - slightly pale ambulatory stable vitals Lungs clear to A&P Heart -regular rhythm is present. There is a soft 1/6 systolic murmur along the left he art border. No pericardial rub is present. Remains in a sinus rhythm on the telemetry. Abdomen -bowel tones are present. The abdomen is nondistended. There is no abdominal t enderness to palpation Musc/Skel equal strength arms and legs Extremities dependent edema Skin -no ecchymotic changes no rash Diagnostic Studies: Available data and images were reviewed personally. Significant results and findings are a ddressed here or in the Assessment and Plan. LAB review hemoglobin 9.6 hematocrit 27.4 these are both down slightly(10.4/29.6% yesterda y) prothrombin time INR 2.7 Sodium low at 128 serum creatinine 1.2 and stable Troponin slowly trending down now at 0.91 ASSESSMENT & PLAN: Active Hospital Problems Paroxysmal atrial fibrillation (HCC) Coronary artery disease Postoperative anemia due to acute blood loss Hyperlipidemia Benign essential hypertension Acute on chronic diastolic CHF (congestive heart failure), NYHA class 2 ([facility]) *Post pericardiotomy syndrome Hyponatremia Hypothyroidism Obstructive sleep apnea Past Medical History Diagnosis Date Coronary artery disease Hyperlipidemia Hypertension Thyroid disease FL (myocardial infarction) (HCC) CHF (congestive heart failure) ([facility]) PLAN: I am going to hang onto the patient for another 24 hours. The IV is infiltrated. I will restart oral furosemide tomorrow. We will do a fluid restriction today for the hyponat remia. CBC and basic met panel ordered for tomorrow morning as well as repeat prothrombin t george. I a thoughtful conversation with the patient and her relative to the risks of the ibuprofen and warfarin. Tomorrow I will decrease the ibuprofen to twice a day. [facility] Ernie Gonzalez RN - 01/11/2014 6:04 AM PDTTele Note: Pt 1AVB w/LBBB and trace ST deviation, no acute events overnight. Gerry Manley RN - 01/10/2014 12:30 PM PDTPatient states she doesn't have any energy and is a bit board . Took patient outside in the wheelchair for a diversion and some fresh air. Tolerated it we ll and enjoyed being outside. Lyn Fitzgerald PharmD - 01/10/2014 12:12 PM PDTFormatting of this note might be diffe rent from the original. Markie Pinto is currently on warfarin for a diagnosis of atrial fibrillation with a t arget INR of 2-3. Date 01/10/201401/09 INR 2.6 3.1 3.5 2.7 2.3 Warfarin Dose 4 mg 5mg 0mg 5mg 5mg Platelet Count Date Value Range Status 01/10/2014 377 150 - 400 K/uL Final 06/27/2011 188 Final 03/31/2011 171 150 - 400 K/uL Final No results found for this basename: PTT INR Date Value Range Status 01/10/2014 2.6* 0.9 - 1.3 Final Usual oral anticoagulant range: 2.0 to 3.0 High level oral anticoagulant range: 2.5 t o 3.5 Pharmacy will order warfarin 4 mg today and follow INR. Lyn Rodgers 01/10/2014 12:11 Gage Aguilar MD - 01/10/2014 9:[address] [facility] Progress Note Markie Pinto : 1940 PCP: Pepper García Admitted: 01/06/2014 2:14 Attending: Gage Castañeda MD Admission dx: Post pericardiotomy syndrome Hospital Day: 6 Markie Pinto is a 73 y.o. female seen on 01/11/2014 Assessment and Plan: Post-pericardotomy syndrome Atrial fibrillation with rapid ventricular response Status post CABG x4 vessels Blood loss anemia/status post 2 units packed red blood cell transfusion Mild renal insufficiency possibly related to NSAID Plan: Restart metoprolol today. Continue with digoxin. See how heart rate does when she i s up and about. Pain much improved though she is still having some back pain +2/10. Contin ue with ibuprofen the same for now. Follow kidney function. Blood count stable at present. Diet Orders: FAT AND CHOLESTEROL MODIFIED DVT Prophylaxis: Coumadin with INR goal 2-3 GI Prophylaxis: Pepcid Subjective: Patient states her pain is present but it's much better than he was when she came in. Just feels overall weak. Appetite is marginal. Hasn't had an appetite since her heart surgery. Denies increased cough, no congestive heart failure symptoms. No new pain. Denies any pr oblem with her bowels at this time. Physical Examination: Vitals Current Average / Min / Max Temp 36.3 C (97.4 F) Temp Min: 36.1 C (97 F) Max: 36.9 C (98.5 F) BP 139/71 mmHg BP Min: 122/86 Max: 152/72 HR 62 Pulse Av.2 Min: 62 Max: 83 RR 16 Resp Av.6 Min: 12 Max: 18 Sats 96 % SpO2 Min: 92 % Max: 98 % I/O last 3 completed shifts: In: 2039 [P.O.:2039] Out: 3900 [Urine:3900] Today's Weight: 74.345 kg (163 lb 14.4 oz) Admit Weight:74.39 kg (164 lb) BMI: Body mass index is 25.66 kg/(m^2). Constitutional: Appears well-developed and well-nourished. Not in acute distress. Somewha t pale Eyes: EOM are intact, conjunctiva without erythema, sclera normal, Mouth: normal dentition, oropharynx pink without exudate or erythema Cardiovascular: Irregularly irregular with pulse around 90 Pulmonary/Chest: Clear to auscultation bilaterally. No wheezing, rales or ronchi. Normal re spiratory effort. Abdominal: Bowel sounds present, no masses, non-tender to palpation in all 4 quadrants, no guarding or rigidity. No hepatosplenomegaly. Musculoskeletal: No edema of the extremities. Neurological: Alert and oriented. Cranial nerves II-XII are grossly intact. Skin: Skin is warm and dry. No rash is visualized Scheduled Medications ascorbic acid 1,000 mg Oral Daily atorvaSTATin 40 mg Oral Daily digoxin 250 mcg Oral Daily famotidine 20 mg Oral Daily ferrous gluconate 324 mg Oral BID WC folic acid 1 mg Oral Daily furosemide (LASIX) IV 40 mg Intravenous Daily ibuprofen 600 mg Oral TID WC levothyroxine 75 mcg Oral QAM AC magnesium (as oxide) 250 mg Oral BID metoprolol succinate 12.5 mg Oral BID pharmacy to dose warfarin Other Pharmacy Consult potassium chloride SA 10 mEq Oral BID senna 8.6 mg Oral BID [COMPLETED] warfarin 4 mg Oral Once - Warfarin zinc sulfate 220 mg Oral BID IV Fluids and Drips PRN medications acetaminophen, bisacodyl, HYDROcodone-acetaminophen, lactulose, magnesium hydroxide, metopr olol tartrate, morphine, ondansetron, polyethylene glycol Labs: Recent Results (from the past 24 hour(s)) TROPONIN I Collection Time 01/10/14 0315 Component Value Range TROPONIN I 1.05 (*) 0.00 - 0.08 ng/mL CBC WITH MANUAL DIFFERENTIAL Collection Time 01/10/14 0600 Component Value Range WBC 5.4 4.0 - 11.0 K/uL RBC 3.20 (*) 3.80 - 5.20 M/uL Hgb 10.4 (*) 11.6 - 15.5 g/dL Hct 29.6 (*) 35.0 - 46.0 % MCV 92.5 80.0 - 100.0 fL MCH 32.5 27.0 - 34.0 pg MCHC 35.2 32.0 - 35.5 g/dL RDW 14.2 11.0 - 15.0 % Platelet Count 377 150 - 400 K/uL % Seg Neutrophils 84.0 (*) 38.0 - 80.0 % % Bands 2.0 0.0 - 8.0 % % Lymphocytes 8.0 (*) 21.0 - 49.0 % % Monocytes 4.0 3.0 - 11.0 % % Eosinophils 2.0 0.0 - 7.0 % Absolute Neutrophil, Segmented 4.53 1.8 - 7.7 K/uL Absolute Bands 0.11 0 - 0.2 K/uL Absolute Lymphocytes 0.43 (*) 1.0 - 5.0 K/uL Absolute Monocytes 0.22 0 - 0.8 K/uL Absolute Eosinophils 0.11 0 - 0.5 K/uL RBC MORPHOLOGY Normal WBC MORPHOLOGY Normal PLT MORPHOLOGY Adequate Total Counted 100 PROTIME INR Collection Time 01/10/14 0600 Component Value Range PROTIME 27.8 (*) 8.9 - 11.7 sec INR 2.6 (*) 0.9 - 1.3 SODIUM, URINE, RANDOM Collection Time 01/10/14 0800 Component Value Range SODIUM,RANDOM URINE 56 CREATININE, URINE, RANDOM Collection Time 01/10/14 0800 Component Value Range Creatinine, random urine 31 10 - 300 mg/dL TROPONIN I Collection Time 01/10/14 0915 Component Value Range TROPONIN I 1.02 (*) 0.00 - 0.08 ng/mL BASIC METABOLIC PANEL Collection Time 01/10/14 0915 Component Value Range NA 129 (*) 135 - 145 mmol/L K 3.8 3.5 - 5.1 mmol/L CL 92 (*) 98 - 109 mmol/L CO2 30 21 - 32 mmol/L GLUCOSE 127 (*) 60 - 114 mg/dL BUN 11 8 - 21 mg/dL Creatinine, Serum 1.10 0.5 - 1.2 mg/dL CALCIUM 8.7 8.4 - 10.5 mg/dL ANION GAP 11 10 - 20 mmol/L Estimated GFR 52 (*) >60 ml/min/1.73m2 TROPONIN I Collection Time 01/10/14 1800 Component Value Range TROPONIN I 1.00 (*) 0.00 - 0.08 ng/mL TROPONIN I Collection Time 01/10/14 2120 Component Value Range TROPONIN I 0.96 (*) 0.00 - 0.08 ng/mL Microbiology Microbiology Results (72 hrs) No Results found for the last 72 hours. Imaging: Results for orders placed during the hospital encounter of 01/06/14 XR Chest AP Portable Narrative CHEST SINGLE VIEW CLINICAL INFORMATION: Shortness of breath, recent open heart surgery. COMPARISON: 12/25/2013. FINDINGS: Chest tubes have been removed. Right IJ CV line has been removed. There is a new large left pleural effusion causing collapse of the left lower lobe and the lingula. No mediastinal shift. Right lung is clear. No obvious right effusion. No visible pneumothorax. Stable bones. IMPRESSION: New large left pleural effusion with collapse of the left lower lobe and lingula. CODE STATUS: Full Code Gage Castañeda MD 01/11/2014 0:15 Ernie Gonzalez RN - 01/10/2014 5:37 AM PDTTele Note: Pt Afib w/LBBB, rate 80-90's w/occasional pauses up to 3 secs self-limiting in nature, no acute events otherwise overnight. Steven Foster [facility] - 01/09/2014 3:39 PM PDTFo rmatting of this note might be different from the original. Markie Pinto is currently on warfarin for a diagnosis of atrial fibrillation with a t arget INR of 2-3. Date 01/09/14 01/08/2014 01/07/14 01/06/14 INR 3.1 3.5 2.7 2.3 Warfarin Dose 5 mg zero mg 5 mg 5 mg Platelet Count Date Value Range Status 01/09/2014 424* 150 - 400 K/uL Final 06/27/2011 188 Final 03/31/2011 171 150 - 400 K/uL Final No results found for this basename: PTT INR Date Value Range Status 01/09/2014 3.1* 0.9 - 1.3 Final Usual oral anticoagulant range: 2.0 to 3.0 High level oral anticoagulant range: 2.5 t o 3.5 Pharmacy will order warfarin 5 mg today and follow INR. Steven Potter 01/09/2014 15:37 Marlen Marti Chaplain - 01/09/2014 1:16 PM PDTMet spouse, brother and at bedside. Pt. Member of [facility] [employer] and senior media planner has visited. Pt. Reports feeling better and hopeful for heal ing. Support, encouragement and prayer offered per patient request. PC to follow.Agnieszka christianson signed by Chaplain Jaci at 01/09/2014 1:17 PM Gage Aguilar MD - 7:37 AM PDTAttending note Patient examined, interviewed, and reviewed the findings as well discussed treatment plan w neville Rahman. Agree with his findings and recommendation. Please see his detailed note Vandana ctronically signed by Gage Castañeda MD at 01/09/2014 9:47 PM PDTPeek, Kris Harris MD - 01/09/2014 7:37 AM PDT PROGRESS NOTE [facility] Pt. Name/Age/: Markie Pinto 73 y.o. 1940 Med. Record Number: [id number] Date of admission: 01/06/2014 Room: [address] [place] [address] Subjective She reports her back pain, which is the manifestation for her postoperative or cardiotomy s yndrome pain, is still doing great with a pain scale of 2-3/10. No new pain that she is com plaining about. She is feeling a little nauseous this morning, and had a bowel movement at 3:00 this morning ROS No new pain in arms or legs. Tolerating her diet, no abdominal pain Objective Vitals Intake/Output BP 158/74 | Pulse 61 | Temp 36.6 C (97.8 F) (Temporal) | Resp 16 | Ht 1.702 m (5' 7") | Wt 74.844 kg (165 lb) | BMI 25.84 kg/m2 | SpO2 96% 01/08 0701 - 01/09 0700 In: 2970 [P.O.:2970] Out: 1750 [Urine:1750] Wt. Admission: Weight: 74.39 kg (164 lb) Wt. Current: Weight: 74.844 kg (165 lb) Exam General appearance: alert, appears stated age and cooperative Lungs: clear to auscultation bilaterally Heart: Normal sinus rhythm as of this morning, unfortunately converted back to atrial fibri llation after 9 AM. Abdomen: soft, non-tender; bowel sounds normal; no masses, no organomegaly Neurologic: Grossly normal She's had 9 troponins drawn with the overall trend being downward White blood cell count 6.6 down from 6.9 Hemoglobin 9.9 up from 9.5 Platelets 424 up from 399 GFR 43 down from 47 down from 52 down from 58 Diagnostic studies The following were reviewed personally: active problem list, medication list, allergies, no velvet from last encounter, lab results Significant findings are addressed in the Assessment and Plan. Assessment & Plan Markie Pinto is a 73 y.o. female who developed postoperative pericardiotomy syndrome r esponding very well to ibuprofen who is back in A. fib as of this morning Active Hospital Problems Diagnosis Post pericardiotomy syndrome Paroxysmal atrial fibrillation (HCC) Coronary artery disease Postoperative anemia due to acute blood loss Hyperlipidemia Benign essential hypertension Acute on chronic diastolic CHF (congestive heart failure), NYHA class 2 (HCC) Hypothyroidism Obstructive sleep apnea Resolved Hospital Problems Diagnosis No resolved problems to display. 1. post pericardiotomy syndrome - continues to respond very well to ibuprofen. 2. atrial fibrillation-she was in normal sinus rhythm for almost 2 days before she converte d back this morning. The post pericardiotomy syndrome is a contributor to atrial fibrillati on. It is hoped that with continued resolution of this syndrome she will sustain normal sin us rhythm longer. We'll have metoprolol 5 mg IV every 4 hours when necessary for heart rate greater than 110 on top of her current rate controlling medications. We'll keep her on tel emetry and in the ICU for another day. 3. blood loss anemia-appears to be resolved and stable at this point. Will check her hemog lobin tomorrow. 4. kidney injury-continues to deteriorate. I would be surprised if it truly is the ibuprof en given it's only been added for short amount of time. I will stop the aspirin as it can c ause reduction in GFR and renal blood flow. I will check fraction excretion of sodium, urin e eosinophils, and a repeat UA. I do not think clots or being showered to her kidneys as sh e is supratherapeutic on her warfarin at last check. 5. coronary artery disease-status post quadruple bypass 12/24/2013. Continue lipitor and asp irin. 6. diastolic heart failure-mild per echo recently done. Controlling rate and optimizing Is and Os 7. Hypothyroidism-continue home dose of levothyroxine 75 mcg daily 8. benign essential hypertension-we'll continue metoprolol and furosemide, as well as adriana nue to monitor. Currently under good control 9. Constipation - resolved. We'll continue current bowel regimen. 10. GI prophylaxis-on famotidine 11. DVT prophylaxis-currently being dosed with warfarin 12. Nutrition-cardiac diet 13. Physical therapy-she may not need physical therapy as she appears to be ablating around the room. We'll see what they report 14. Discharge planning-we'll keep her on telemetry and in the ICU for another day. FEN Diet: FAT AND CHOLESTEROL MODIFIED Prophylaxis DVT: Coumadin with INR goal 2-3 GI: famotidine Lines Torres indication: not applicable CVC indication: not applicable Dispo Anticipated date: Anticipated location: discharge to home or to an adult foster home Anticipated needs: CODE STATUS: Full Code Electronically signed by: Kris Rahman 01/09/2014 7:37 age Castañeda MD - 0 01/08/2014 1:47 PM PDTAttending Note Patient is feeling much better with the NSAID. Vitals stable, exam overall stable likewise . No problem with the transfusion. Still in sinus rhythm. Discussed case in detail with Dr. Rahman and agree with treatment plan put forth in his note. Kris Monsalve M D - 01/08/2014 1:47 PM PDT PROGRESS NOTE [facility] Pt. Name/Age/: Markie Pinto 73 y.o. 1940 Med. Record Number: [id number] Date of admission: 01/06/2014 Room: [address] [place] [address] Subjective She reports that she had terrible back pain 10 out of 10 while she was at [facility] and since starting the ibuprofen for pain has gone down to 2-3/10, which is the best it has ever felt since the pain started. She feels her shortness of breath has greatly improved as wel l. She denies any chest pain, any pleuritic pain, and does feel that her pain improves with leaning forward. She is tolerating her diet and has no new complaints. She did receive 2 units of packed red blood cells last night. ROS No abdominal pain, no new pain in her extremities, no new pain radiating up her neck or karin n her arm, she denies any recent history of melenic stools. Objective Vitals Intake/Output BP 134/72 | Pulse 66 | Temp 36.7 C (98 F) (Temporal) | Resp 18 | Ht 1.702 m (5' 7") | W t 74.889 kg (165 lb 1.6 oz) | BMI 25.85 kg/m2 | SpO2 93% 01/07 0701 - 01/08 0700 In: 1315.9 [P.O.:650] Out: 3350 [Urine:3350] Wt. Admission: Weight: 74.39 kg (164 lb) Wt. Current: Weight: 74.889 kg (165 lb 1.6 oz) Exam General appearance: alert, appears stated age and cooperative Neck: no JVD Lungs: despite CXR, good breath sounds Heart: regular rate and rhythm, S1, S2 normal, no murmur, click, rub or gallop Abdomen: soft, non-tender; bowel sounds normal; no masses, no organomegaly Extremities: edema trace Pulses: 2+ and symmetric Neurologic: Grossly normal White blood cells 6.9 Hemoglobin 9.5 up from 8.4 after 2 units of packed red blood cells Platelets 399 INR 3.5 BUN 11 down from 13 Creatinine 1.20 with a GFR 47 slowly decreasing from admit creatinine and GFR 1.0 and 58 re spectively NT proBNP 2731 down from 5656 Troponins are variable with the most recent being 1.08 down from 1.10 down from 1.17 Diagnostic studies The following were reviewed personally: active problem list, medication list, allergies, no velvet from last encounter, lab results Significant findings are addressed in the Assessment and Plan. Assessment & Plan Markie Pinto is a 73 y.o. female with post operative pericardiotomy syndrome Active Hospital Problems Diagnosis Post pericardiotomy syndrome Paroxysmal atrial fibrillation (HCC) Coronary artery disease Postoperative anemia due to acute blood loss Hyperlipidemia Benign essential hypertension Acute on chronic diastolic CHF (congestive heart failure), NYHA class 2 (HCC) Hypothyroidism Obstructive sleep apnea Resolved Hospital Problems Diagnosis No resolved problems to display. 1. post pericardiotomy syndrome - effectively acts as pericarditis triggered by a pericardi otomy and seems to respond to NSAIDs at this point. Echo does not show cardiac tamponade an d clinical exam today does not suggest cardiac tamponade. We'll continue to treat with ibup rofen and keep in the ICU for monitoring. 2. atrial fibrillation-this may be paroxysmal and she is currently been in normal sinus rhy thm for almost 20 hours at this point. She is being anticoagulated. 3. blood loss anemia-from January 06 2 January 07 she dropped from 9.1 down to 8.4 and hemoglobin . She had a suboptimal response to 2 units of red blood cell and concerned about a persiste nt slow going bleed. No obvious source, will check a CBC tomorrow morning 4. kidney injury-slowly deteriorating GFR order past 3 days. No contrast dye, no recorded events of hypotension while here, currently taking ibuprofen for her pericardial inflammatio n which is providing great benefit and too new of a medication to suspect the NSAIDs to be t he cause of the deteriorating kidney function. We'll stop pantoprazole given the risk of in terstitial nephritis and switch to famotidine. We'll continue to monitor her I.'s and O.'s and blood pressure to make sure she is getting optimal perfusion of the kidneys. We'll chec k a BMP tomorrow and if continued deterioration look for other potential nephrotoxic insults and get urine studies. 5. coronary artery disease-status post quadruple bypass 12/24/2013. Continue lipitor and asp irin. 6. diastolic heart failure-mild per echo recently done. Controlling rate and optimizing Is and Os 7. Hypothyroidism-continue home dose of levothyroxine 75 mcg daily 8. benign essential hypertension-we'll continue metoprolol and furosemide, as well as adriana nue to monitor. Currently under good control 9. Constipation - last bowel movement was 6 days ago. Has some scheduled as well as polyet hylene glycol and has bisacodyl suppository when necessary. She has been to allergy which p resents and Docusate from being used. Added lactulose and talk with her about the foul tast ing medicine that might help her move her bowels; she was okay with it. 10. GI prophylaxis-on famotidine 11. DVT prophylaxis-currently being dosed with warfarin 12. Nutrition-cardiac diet 13. Physical therapy-we'll get him involved tomorrow for early mobilization 14. Discharge planning-she did have a bowel movement, control her pericarditis pain with N SAIDs, resolution of the kidney injury, and then discharged back to home. FEN Diet: CONSISTENT CARBOHYDRATE Prophylaxis DVT: Coumadin with INR goal 2-3 GI: famotidine Lines Melissa indication: not applicable CVC indication: not applicable Dispo Anticipated date: Anticipated location: discharge to home or to an adult foster home Anticipated needs: PT CODE STATUS: Full Code Electronically signed by: Kris Rahman 01/08/2014 13:47 Uyen [facility]wood Chaplain - 01/08/2014 1:00 PM PDTFollow up visit to pt. She looked comfortable, was sitting on recliner. She expressed appreciation for senior media planner's visit yesterday. Welcomes ch aplains' visits. Remains hopeful for good recovery. PC support provided & will remain avai lable as needed. Steven Foster [facility] - 01/08/2014 10:06 AM PDTFormatting of this note might be di fferent from the original. Markie Pinto is currently on warfarin for a diagnosis of atrial fibrillation with a t arget INR of 2-3. Date 01/08/2014 01/07/14 01/06/14 INR 3.5 2.7 2.3 Warfarin Dose zero mg 5 mg 5 mg NOTE: Patient's reports that patient took 5 mg warfarin daily starting 01/02/14. Platelet Count Date Value Range Status 01/08/2014 399 150 - 400 K/uL Final 06/27/2011 188 Final 03/31/2011 171 150 - 400 K/uL Final No results found for this basename: PTT INR Date Value Range Status 01/08/2014 3.5* 0.9 - 1.3 Final Usual oral anticoagulant range: 2.0 to 3.0 High level oral anticoagulant range: 2.5 t o 3.5 Pharmacy will order HOLD warfarin dose today and follow INR. Steven Potter 01/08/2014 9:53 Pepper Molina MD - 11:13 AM PDT [facility] HOSPITALIST PROGRESS NOTE Pt. Name/Age/: Markie Pinto 73 y.o. 1940 Med. Record Number: [id number] Date of admission: 01/06/2014 Date of service: 01/07/14 Time of service: 1100 Hospital Day: 2 ASSESSMENT & PLAN: 1. 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 Acute on chronic diastolic CHF (congestive heart failure), NYHA class 2 3. Atrial fibrillation, with controlled ventricular response 4. Obstructive sleep apnea 5. Benign essential hypertension, controlled 6. Coronary artery disease 7. Postoperative anemia due to acute blood loss 8. Hypothyroidism 9. Hyperlipidemia PLAN: Continue nonsteroidal anti-inflammatory agent (ibuprofen) to stabilize the inflammation uyen und her heart. Continue diuretics; metoprolol and digoxin for rate control. Patient is ful ly anticoagulated. This patient just had major heart surgery with significant blood loss (3 -4 units). She has underlying coronary artery disease and now acute on chronic heart failur e as a result of post pericardiotomy syndrome. With her hematocrit dropping to 24%, I will transfuse 2 units of packed red blood cells. Resumed thyroid supplement yesterday. We'll a lso resume CPAP therapy for her sleep apnea. I discussed her case with [employer] explosive operator grenade, Dr. Lobo Katz, yesterday (on-call for Dr. Steven Dyer who took care of the patient during her last hospitalization). He complete ly concurred with the diagnosis and plan of management. DVT Prophylaxis Coumadin with INR goal 2-3 Code Status Full Code - confirmed with patient SUBJECTIVE: The patient looks and feels better. Her breathing has improved. She denies any chest pain s or for that matter any pain at all including no pain in the operative site. She is satura ting well. Continues on IV furosemide, beta candice, and I loaded her with with digoxin. S he remains in atrial fibrillation, now with consistently controlled ventricular response. S lept well in the overnight. Systems Review: Constitutional - no fever, no chills, no night sweats, still weak EENT- no vision changes, no earache, no sore throat Cardiovascular - no palpitations Respiratory - minimal dyspnea, no cough, no hemoptysis, no wheezing, Gastrointestinal - no BM yet, no nausea, no vomiting, no abdominal pain Genitourinary - no dysuria, no gross hematuria Neurological - no headaches, no tremors, no dizziness OBJECTIVE: Vitals: Temp: 36.4 C (97.6 F), Pulse: 112 , Resp: 15 , BP: 127/88 mmHg, SpO2 94 % on nasal cannula at flow rate 2 L/min Temp Min: 36.4 C (97.6 F) Max: 37.2 C (99 F) Current Weight:75.524 kg (166 lb 8 oz) Admit Weight: 74.39 kg (164 lb) Intake/Output Summary (Last 24 hours) at 01/07/14 1113 Last data filed at 01/07/14 1030 Gross per 24 hour Intake 2101 ml Output 1945 ml Net 156 ml Gen Liang - alert, cooperative, no distress, appears stated age HEENT - PERRL, conjunctiva/corneas clear, EOM's intact, oral mucosa moist Neck - supple, no carotid bruit or JVD, no lymphadenopathy Lungs - decreased breath sounds, absent in left lung base, no rhonchi, no active wheezin g, occasional crackles left lung base Heart - irregularly irregular rhythm, rate normal, no murmur, no rub Abdomen - soft, non-tender, bowel sounds active Extremities - no calf tenderness, trace pedal edema, no clubbing or cyanosis, pulses int act Skin - no rashes or lesions Neurologic - mental status clear, no focal deficits Telemetry: atrial fibrillation - controlled Scheduled Meds: ascorbic acid 1,000 mg Oral Daily aspirin 81 mg Oral Daily atorvaSTATin 40 mg Oral Daily [COMPLETED] digoxin (LANOXIN) IV 250 mcg Intravenous Once [COMPLETED] digoxin (LANOXIN) IV 250 mcg Intravenous Once digoxin 250 mcg Oral Daily ferrous gluconate 324 mg Oral BID WC folic acid 1 mg Oral Daily furosemide (LASIX) IV 40 mg Intravenous Once furosemide (LASIX) IV 40 mg Intravenous Daily ibuprofen 600 mg Oral TID WC [COMPLETED] ketorolac (TORADOL) injection 15 mg Intravenous Once [COMPLETED] ketorolac (TORADOL) injection 15 mg Intravenous Once levothyroxine 75 mcg Oral QAM AC magnesium (as oxide) 250 mg Oral BID metoprolol succinate 25 mg Oral BID pantoprazole 40 mg Oral BID AC potassium chloride SA 10 mEq Oral BID senna 8.6 mg Oral BID warfarin 5 mg Oral Daily - Warfarin zinc sulfate 220 mg Oral BID PRN Meds: acetaminophen 650 mg Q4H PRN bisacodyl 10 mg Daily PRN HYDROcodone-acetaminophen 1 tablet Q4H PRN HYDROcodone-acetaminophen 1-2 tablet Q4H PRN magnesium hydroxide 30 mL Nightly PRN morphine 2-6 mg Q2H PRN ondansetron 4 mg Q6H PRN polyethylene glycol 17 g Daily PRN Diagnostic Studies: Available data and images were reviewed personally. Significant results and findings are a ddressed here or in the Assessment and Plan. Recent Labs Basename 01/07/14 0530 01/06/14 0248 WBC 7.3 9.1 HGB 8.4* 9.1* HCT 24.3* 26.8* PLT 400 400 MCV 94.1 95.0 Recent Labs Basename 01/07/14 0530 01/06/14 0248 NA 135 133* K 4.2 4.1 CL 98 95* CO2 31 30 BUN 13 8 CREA 1.10 1.00 GLU 88 104 CALCIUM 8.6 8.7 MG 2.4 2.3 Recent Labs Basename 01/07/14 0835 01/07/14 0530 TROPONINI 1.17* 1.04* [facility] Uyen Smallwood Chaplain - 01/07/2014 9:49 AM PDTReturned to pt to inform her that the senior media planner from her taoism would be coming this afternoon but pt was sleeping. Gave message to YESSY Trejo. PC support will remain open as needed. Uyen Smallwood Chaplain - 01/07/2014 9:21 AM P DTVisited pt, was awake. She said she woke up early, seemed to be comfortable. She narrate d briefly her medical condition. Hopeful that she will recover. No critical needs expresse d at the moment. She has good family support, & welcomes taoism support. I called her EMERALD burden, & the senior media planner (Brian) will be coming after noon. Contact number is [phone]. She also appreciated piedad. PC support will remain available as needed.Electronically sig rickie by Chaplain Derek at 01/07/2014 9:24 AM PDTdocumented in this enc ounter Plan of Treatment Not on filedocumented as of this encounter Procedures + +--------+ + + + | Procedure Name | Priori | Date/Time | Associated Diagnosis | Comments | | | ty | | | | + +--------+ + + + | ECG 12 LEAD | Routin | 01/15/2014 | | Results for this | | | e | 1:44 PM | | procedure are in the | | | | PDT | | results section. | + +--------+ + + + | PROTIME INR | Routin | 01/15/2014 | | Results for this | | | e | 6:20 AM | | procedure are in the | | | | PDT | | results section. | + +--------+ + + + | CBC WITH | Routin | 01/15/2014 | | Results for this | | DIFFERENTIAL | e | 6:20 AM | | procedure are in the | | | | PDT | | results section. | + +--------+ + + + | BASIC METABOLIC | Routin | 01/15/2014 | | Results for this | | PANEL | e | 6:20 AM | | procedure are in the | | | | PDT | | results section. | + +--------+ + + + | ECG 12 LEAD | STAT | 01/14/2014 | | Results for this | | | | 12:55 PM | | procedure are in the | | | | PDT | | results section. | + +--------+ + + + | PROTIME INR | Routin | 01/14/2014 | | Results for this | | | e | 6:10 AM | | procedure are in the | | | | PDT | | results section. | + +--------+ + + + | ECG 12 LEAD | Routin | 01/13/2014 | | Results for this | | | e | 4:24 PM | | procedure are in the | | | | PDT | | results section. | + +--------+ + + + | NT-PRO BNP | Routin | 01/13/2014 | | Results for this | | | e | 6:00 AM | | procedure are in the | | | | PDT | | results section. | + +--------+ + + + | PROTIME INR | Routin | 01/13/2014 | | Results for this | | | e | 6:00 AM | | procedure are in the | | | | PDT | | results section. | + +--------+ + + + | TSH | Routin | 01/13/2014 | | Results for this | | | e | 6:00 AM | | procedure are in the | | | | PDT | | results section. | + +--------+ + + + | MAGNESIUM | Routin | 01/13/2014 | | Results for this | | | e | 6:00 AM | | procedure are in the | | | | PDT | | results section. | + +--------+ + + + | DIGOXIN LEVEL | Routin | 01/13/2014 | | Results for this | | | e | 6:00 AM | | procedure are in the | | | | PDT | | results section. | + +--------+ + + + | BASIC METABOLIC | Routin | 01/13/2014 | | Results for this | | PANEL | e | 6:00 AM | | procedure are in the | | | | PDT | | results section. | + +--------+ + + + | XR CHEST PA AND | Routin | 01/12/2014 | | Results for this | | LATERAL | e | 8:58 AM | | procedure are in the | | | | PDT | | results section. | + +--------+ + + + | PROTIME INR | Routin | 01/12/2014 | | Results for this | | | e | 6:10 AM | | procedure are in the | | | | PDT | | results section. | + +--------+ + + + | CBC NO DIFFERENTIAL | Routin | 01/12/2014 | | Results for this | | | e | 6:10 AM | | procedure are in the | | | | PDT | | results section. | + +--------+ + + + | BASIC METABOLIC | Routin | 01/12/2014 | | Results for this | | PANEL | e | 6:10 AM | | procedure are in the | | | | PDT | | results section. | + +--------+ + + + | TROPONIN I | Routin | 01/11/2014 | | Results for this | | | e | 9:30 AM | | procedure are in the | | | | PDT | | results section. | + +--------+ + + + | PROTIME INR | Routin | 01/11/2014 | | Results for this | | | e | 9:30 AM | | procedure are in the | | | | PDT | | results section. | + +--------+ + + + | CBC WITH | Routin | 01/11/2014 | | Results for this | | DIFFERENTIAL | e | 6:00 AM | | procedure are in the | | | | PDT | | results section. | + +--------+ + + + | BASIC METABOLIC | Routin | 01/11/2014 | | Results for this | | PANEL | e | 6:00 AM | | procedure are in the | | | | PDT | | results section. | + +--------+ + + + | TROPONIN I | Routin | 01/11/2014 | | Results for this | | | e | 3:20 AM | | procedure are in the | | | | PDT | | results section. | + +--------+ + + + | TROPONIN I | Routin | 01/10/2014 | | Results for this | | | e | 9:20 PM | | procedure are in the | | | | PDT | | results section. | + +--------+ + + + | TROPONIN I | Routin | 01/10/2014 | | Results for this | | | e | 6:00 PM | | procedure are in the | | | | PDT | | results section. | + +--------+ + + + | TROPONIN I | Routin | 01/10/2014 | | Results for this | | | e | 9:15 AM | | procedure are in the | | | | PDT | | results section. | + +--------+ + + + | BASIC METABOLIC | Routin | 01/10/2014 | | Results for this | | PANEL | e | 9:15 AM | | procedure are in the | | | | PDT | | results section. | + +--------+ + + + | EOSINOPHIL SMEAR, | Routin | 01/10/2014 | | Results for this | | URINE | e | 8:00 AM | | procedure are in the | | | | PDT | | results section. | + +--------+ + + + | SODIUM, URINE, | Routin | 01/10/2014 | | Results for this | | RANDOM | e | 8:00 AM | | procedure are in the | | | | PDT | | results section. | + +--------+ + + + | CREATININE, URINE, | Routin | 01/10/2014 | | Results for this | | RANDOM | e | 8:00 AM | | procedure are in the | | | | PDT | | results section. | + +--------+ + + + | CBC WITH MANUAL | Routin | 01/10/2014 | | Results for this | | DIFFERENTIAL | e | 6:00 AM | | procedure are in the | | | | PDT | | results section. | + +--------+ + + + | PROTIME INR | Routin | 01/10/2014 | | Results for this | | | e | 6:00 AM | | procedure are in the | | | | PDT | | results section. | + +--------+ + + + | TROPONIN I | Routin | 01/10/2014 | | Results for this | | | e | 3:15 AM | | procedure are in the | | | | PDT | | results section. | + +--------+ + + + | TROPONIN I | Routin | 01/09/2014 | | Results for this | | | e | 9:50 PM | | procedure are in the | | | | PDT | | results section. | + +--------+ + + + | PROTIME INR | Routin | 01/09/2014 | | Results for this | | | e | 12:30 PM | | procedure are in the | | | | PDT | | results section. | + +--------+ + + + | ECG 12 LEAD | Routin | 01/09/2014 | | Results for this | | | e | 11:00 AM | | procedure are in the | | | | PDT | | results section. | + +--------+ + + + | TROPONIN I | Routin | 01/09/2014 | | Results for this | | | e | 9:30 AM | | procedure are in the | | | | PDT | | results section. | + +--------+ + + + | CBC WITH MANUAL | Routin | 01/09/2014 | | Results for this | | DIFFERENTIAL | e | 3:40 AM | | procedure are in the | | | | PDT | | results section. | + +--------+ + + + | TROPONIN I | Routin | 01/09/2014 | | Results for this | | | e | 3:40 AM | | procedure are in the | | | | PDT | | results section. | + +--------+ + + + | COMPREHENSIVE | Routin | 01/09/2014 | | Results for this | | METABOLIC PANEL | e | 3:40 AM | | procedure are in the | | | | PDT | | results section. | + +--------+ + + + | TROPONIN I | Routin | 01/08/2014 | | Results for this | | | e | 3:50 PM | | procedure are in the | | | | PDT | | results section. | + +--------+ + + + | TROPONIN I | Routin | 01/08/2014 | | Results for this | | | e | 9:05 AM | | procedure are in the | | | | PDT | | results section. | + +--------+ + + + | XR CHEST PA AND | Routin | 01/08/2014 | | Results for this | | LATERAL | e | 6:57 AM | | procedure are in the | | | | PDT | | results section. | + +--------+ + + + | NT-PRO BNP | Routin | 01/08/2014 | | Results for this | | | e | 4:00 AM | | procedure are in the | | | | PDT | | results section. | + +--------+ + + + | TROPONIN I | Routin | 01/08/2014 | | Results for this | | | e | 4:00 AM | | procedure are in the | | | | PDT | | results section. | + +--------+ + + + | PROTIME INR | Routin | 01/08/2014 | | Results for this | | | e | 4:00 AM | | procedure are in the | | | | PDT | | results section. | + +--------+ + + + | CBC WITH | Routin | 01/08/2014 | | Results for this | | DIFFERENTIAL | e | 4:00 AM | | procedure are in the | | | | PDT | | results section. | + +--------+ + + + | MAGNESIUM | Routin | 01/08/2014 | | Results for this | | | e | 4:00 AM | | procedure are in the | | | | PDT | | results section. | + +--------+ + + + | COMPREHENSIVE | Routin | 01/08/2014 | | Results for this | | METABOLIC PANEL | e | 4:00 AM | | procedure are in the | | | | PDT | | results section. | + +--------+ + + + | TRANSFUSE 2 UNITS | STAT | 01/07/2014 | | | | RED BLOOD CELLS | | 7:52 PM | | | | | | PDT | | | + +--------+ + + + | TRANSFUSE 2 UNITS | STAT | 01/07/2014 | | | | RED BLOOD CELLS | | 5:15 PM | | | | | | PDT | | | + +--------+ + + + | ECG 12 LEAD | Routin | 01/07/2014 | | Results for this | | | e | 1:04 PM | | procedure are in the | | | | PDT | | results section. | + +--------+ + + + | ECG 12 LEAD | Routin | 01/07/2014 | | Results for this | | | e | 1:03 PM | | procedure are in the | | | | PDT | | results section. | + +--------+ + + + | PRODUCT: RBC | Routin | 01/07/2014 | | Results for this | | | e | 11:55 AM | | procedure are in the | | | | PDT | | results section. | + +--------+ + + + | TROPONIN I | Routin | 01/07/2014 | | Results for this | | | e | 8:35 AM | | procedure are in the | | | | PDT | | results section. | + +--------+ + + + | NT-PRO BNP | Routin | 01/07/2014 | | Results for this | | | e | 5:30 AM | | procedure are in the | | | | PDT | | results section. | + +--------+ + + + | TROPONIN I | Routin | 01/07/2014 | | Results for this | | | e | 5:30 AM | | procedure are in the | | | | PDT | | results section. | + +--------+ + + + | PROTIME INR | Routin | 01/07/2014 | | Results for this | | | e | 5:30 AM | | procedure are in the | | | | PDT | | results section. | + +--------+ + + + | CBC NO DIFFERENTIAL | Routin | 01/07/2014 | | Results for this | | | e | 5:30 AM | | procedure are in the | | | | PDT | | results section. | + +--------+ + + + | MAGNESIUM | Routin | 01/07/2014 | | Results for this | | | e | 5:30 AM | | procedure are in the | | | | PDT | | results section. | + +--------+ + + + | BASIC METABOLIC | Routin | 01/07/2014 | | Results for this | | PANEL | e | 5:30 AM | | procedure are in the | | | | PDT | | results section. | + +--------+ + + + | TROPONIN I | Routin | 01/06/2014 | | Results for this | | | e | 9:35 PM | | procedure are in the | | | | PDT | | results section. | + +--------+ + + + | URINALYSIS WITH | Routin | 01/06/2014 | | Results for this | | MICROSCOPIC WITH | e | 8:30 PM | | procedure are in the | | CULTURE IF INDICATED | | PDT | | results section. | + +--------+ + + + | CULTURE, URINE | Routin | 01/06/2014 | | Results for this | | | e | 8:30 PM | | procedure are in the | | | | PDT | | results section. | + +--------+ + + + | TROPONIN I | Routin | 01/06/2014 | | Results for this | | | e | 3:25 PM | | procedure are in the | | | | PDT | | results section. | + +--------+ + + + | ECHO COMPLETE | Routin | 01/06/2014 | | Results for this | | | e | 11:30 AM | | procedure are in the | | | | PDT | | results section. | + +--------+ + + + | TSH, REFLEX FREE T4 | Routin | 01/06/2014 | | Results for this | | | e | 8:55 AM | | procedure are in the | | | | PDT | | results section. | + +--------+ + + + | TROPONIN I | Routin | 01/06/2014 | | Results for this | | | e | 8:55 AM | | procedure are in the | | | | PDT | | results section. | + +--------+ + + + | T4, FREE | Routin | 01/06/2014 | | Results for this | | | e | 8:55 AM | | procedure are in the | | | | PDT | | results section. | + +--------+ + + + | CULTURE, MRSA | Routin | 01/06/2014 | | Results for this | | | e | 5:00 AM | | procedure are in the | | | | PDT | | results section. | + +--------+ + + + | XR CHEST AP PORTABLE | STAT | 01/06/2014 | | Results for this | | | | 3:02 AM | | procedure are in the | | | | PDT | | results section. | + +--------+ + + + | NT-PRO BNP | Routin | 01/06/2014 | | Results for this | | | e | 2:48 AM | | procedure are in the | | | | PDT | | results section. | + +--------+ + + + | TROPONIN I | STAT | 01/06/2014 | | Results for this | | | | 2:48 AM | | procedure are in the | | | | PDT | | results section. | + +--------+ + + + | CK-MB | STAT | 01/06/2014 | | Results for this | | | | 2:48 AM | | procedure are in the | | | | PDT | | results section. | + +--------+ + + + | PROTIME INR | STAT | 01/06/2014 | | Results for this | | | | 2:48 AM | | procedure are in the | | | | PDT | | results section. | + +--------+ + + + | CBC WITH | STAT | 01/06/2014 | | Results for this | | DIFFERENTIAL | | 2:48 AM | | procedure are in the | | | | PDT | | results section. | + +--------+ + + + | PHOSPHORUS | Routin | 01/06/2014 | | Results for this | | | e | 2:48 AM | | procedure are in the | | | | PDT | | results section. | + +--------+ + + + | MAGNESIUM | Routin | 01/06/2014 | | Results for this | | | e | 2:48 AM | | procedure are in the | | | | PDT | | results section. | + +--------+ + + + | COMPREHENSIVE | STAT | 01/06/2014 | | Results for this | | METABOLIC PANEL | | 2:48 AM | | procedure are in the | | | | PDT | | results section. | + +--------+ + + + documented in this encounter Results ECG 12 lead (01/15/2014 1:44 PM PDT) + + + | Narrative | Performed At | + + + | Donald Mendiola MD 01/15/2014 13:44 Abnormal ECG. Rhythm is a | | | supra-ventricular tachycardia rate of 144 beats per minute. 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 No | | | P waves or atrial flutter waves are identified. ST-T wave changes | | | noted throughout the tracing. Rule out subendocardial injury or | | | ischemia. Since the prior tracing of January 10, 2014 a | | | supra-ventricular tachycardia has replaced a normal sinus rhythm. | | | Cardiac axis remains slightly shifted leftward. | | + + + + + | Procedure Note | + + | Donald Mendiola MD - 01/15/2014 1:42 PM PDT Abnormal ECG. Rhythm is a | | supra-ventricular tachycardia rate of 144 beats per minute. The rhythm is regular and | | is probably AV dirk reentrant in origin. No P waves or atrial flutter waves are | | identified. ST-T wave changes noted throughout the tracing. Rule out subendocardial | | injury or ischemia. Since the prior tracing of January 10, 2014 a supra-ventricular | | tachycardia has replaced a normal sinus rhythm. Cardiac axis remains slightly shifted | | leftward. | + + CBC with Differential (01/15/2014 6:20 AM PDT) + + + + + + | Component | Value | Ref Range | Performed | Pathologist | | | | | At | Signature | + + + + + + | WBC | 5.7 | 4.0 - 11.0 K/uL | [facility] | | + + + + + + | RBC | 3.16 (L) | 3.80 - 5.20 | [facility] | | | | | M/uL | [facility] | [facility] | | + + + + + + | Hemoglobin | 10.2 (L) | 11.6 - 15.5 | [facility] | | | | | g/dL | [facility] | [facility] | | + + + + + + | Hematocrit | 29.1 (L) | 35.0 - 46.0 % | [...] + + + + | MCHC | 35.1 | 32.0 - 35.5 | [facility] | | | | | g/dL | [facility] | | + + + + + + | RDW-CV | 14.6 | 11.0 - 15.0 % | [facility] | [facility] | [facility] | | + + + + + + | Platelet | 389 | 150 - 400 K/uL | [facility] | | + + + + + + | % | 75.3 | 38.0 - 80.0 % | [facility] | | | Neutrophils | | | [facility] | | | | | [facility] | | + + + + + + | % | 11.2 (L) | 21.0 - 49.0 % | [facility] | | | Lymphocytes | | | [facility] | | | | | [facility] | | + + + + + + | % Monocytes | 8.3 | 3.0 - 11.0 % | [facility] | | [facility] | [facility] | | + + + + + + | % | 4.7 | 0.0 - 7.0 % | [facility] [...] + + + + | Absolute | 4.30 | 1.8 - 7.7 K/uL | [facility] | | | Neutrophils | | | [facility] | | | | [facility] | | + + + + + + | Absolute | 0.60 (L) | 1.0 - 5.0 K/uL | [...] | Absolute | 0.30 | 0 - 0.5 K/uL | [facility] [...] + + | [facility] | [address] | [place] [address] | | | [facility] | | | | | LABORATORY | | | | + + + + + Basic Metabolic Panel (01/15/2014 6:20 AM PDT) + + + + + [...] | K | 4.2 | 3.5 - 5.1 | [facility] | [...] + + + + | Glucose | 96 | 60 - 114 mg/dL | [facility] | [facility] | [facility] | [facility] | | + + + + + + | BUN | 9 | 8 - 21 mg/dL | [facility] | [facility] | | + + + + + + | Creatinine | 0.90 | 0.5 - 1.2 mg/dL | [facility] | | | | | | [facility] | | + + + + + + | Calcium | 9.2 | 8.4 - 10.5 | [facility] | [...] + + | [facility] [facility] | [address] [facility] | [place] [address] | | | [facility] [employer] | | | | | LABORATORY | | | | + + + + + Protime INR (01/15/2014 6:20 AM PDT) + + + + + + | Component | Value | Ref Range | Performed | Pathologist | | | | | At | Signature | + + + + + + | Prothrombin | 28.5 (H) | 8.9 - 11.7 sec | [facility] | | | Time | | | [facility] | | | | | | [facility] | | | | | | LABORATORY | | + + + + + + | INR | 2.7 (H)Comment: Usual | 0.9 - 1.3 | [...] + + + + + | [facility] | [address] | [place] [address] | | | [facility] [employer] | | | | | LABORATORY | | | | + + + + + ECG 12 lead (01/14/2014 12:55 PM PDT) + + + | Narrative | Performed At | + + + | Donald Mendiola MD 01/14/2014 12:55 Abnormal ECG. Normal | | | sinus rhythm. Left axis deviation. Nonspecific ST - T wave | | | changes. Rule out lateral wall ischemia and/or subendocardial | | | injury. Since prior tracing dated January 07, 2014, no significant | | | change. | | + + + + + | Procedure Note | + + | Donald Mendiola MD - 01/14/2014 12:53 PM PDT Abnormal ECG. Normal sinus rhythm. | | Left axis deviation. Nonspecific ST - T wave changes. Rule out lateral wall ischemia | | and/or subendocardial injury. Since prior tracing dated January 07, 2014, no significant | | change. | + + Emelyime INR (01/14/2014 6:10 AM PDT) + + + + + + | Component | Value | Ref Range | Performed | Pathologist | | | | | At | Signature | + + + + + + | Prothrombin | 33.0 (H) | 8.9 - 11.7 sec | [facility] | | | Time | | | [facility] | | | | | | [facility] | [facility] | | | | | | LABORATORY | | + + + + + + | INR | 3.1 (H)Comment: Usual | 0.9 - 1.3 | [...] + + + + + | [facility] | [address] | [place] [address] | | | [facility] [employer] | | | | | LABORATORY | | | | + + + + + ECG 12 lead (01/13/2014 4:24 PM PDT) + + + | Narrative | Performed At | + + + | Donald Mendiola MD 01/13/2014 16:24 Normal ECG. We'll sinus | | | rhythm. Left axis deviation. Nonspecific ST - T wave changes. | | | Rule out lateral wall ischemia. Since prior tracing dated December | | | 2013, sinus rhythm has replaced atrial flutter. | | + + + + + | Procedure Note | + + | Donald Mendiola MD - 01/13/2014 4:21 PM PDT Normal ECG. We'll sinus rhythm. Left | | axis deviation. Nonspecific ST - T wave changes. Rule out lateral wall ischemia. Since | | prior tracing dated January 06, 2014, sinus rhythm has replaced atrial flutter. | + + TSH (01/13/2014 6:00 AM PDT) + + + + + + | Component | Value | Ref Range | Performed | Pathologist | | | | | At | Signature | + + + + + + | TSH | 4.48 (H) | 0.36 - 3.74 | [facility] [...] | + + + + + | [facility] | [address] | [place] [address] | | | [facility] | | | | | LABORATORY | | | | + + + + + Protime INR (01/13/2014 6:00 AM PDT) + + + + + + | Component | Value | Ref Range | Performed | Pathologist | | | | | At | Signature | + + + + + + | Prothrombin | 33.8 (H) | 8.9 - 11.7 sec | [facility] | | | Time | | | [facility] | | | | | | [facility] | | [facility] | | | | | | LABORATORY | | + + + + + + | INR | 3.2 (H)Comment: Usual | 0.9 - 1.3 | [...] + + + | [facility] | [address] | [place] [address] | | | [facility] | | | | | LABORATORY | | | | + + + + + NT-PRO BNP (01/13/2014 6:00 AM PDT) + + + + + + | Component | Value | Ref Range | Performed | Pathologist | | | | | At | Signature | + + + + + + | NT-proBNP | 1,132 (H) | <125 pg/mL | [facility] | | | | | | [facility] | | | | | | [facility] | | | | | | [facility] [...] + + | [facility] | [address] [facility] | [place] [address] | | | [facility] [employer] | | | | | LABORATORY | | | | + + + + + Digoxin Level (01/13/2014 6:00 AM PDT) + + + + + + | Component | Value | Ref Range | Performed | Pathologist | | | | | At | Signature | + + + + + + | Digoxin | 0.7 (L)Comment: St | 0.9 - 2.0 ng/mL | [facility] | | | level | [facility], | | [facility] | | | | [place] [address] | | [facility] | | | | [...] + | [facility] | [address] | [place] [address] | | | [facility] | | | | | LABORATORY | | | | + + + + + Basic Metabolic Panel (01/13/2014 6:00 AM PDT) + + + + + [...] | K | 4.0 | 3.5 - 5.1 | [facility] | | | | | mmol/L | [facility] | | | | | | [facility] | | | | | | LABORATORY | | + + + + + + | Cl | 94 (L) | 98 - 109 mmol/L | [facility] | | | | | | [facility] | | | | | | [facility] | | | [facility] | | | | | | LABORATORY | | + + + + + + | CO2 | 35 (H) | 21 - 32 mmol/L | [facility] | | | | | | [facility] | | | | | | [facility] | | [facility] | | | | | | LABORATORY | | + + + + + + | Glucose | 103 | 60 - 114 mg/dL | [facility] | | | | | | [facility] | | | | | | [facility] | | | | | | LABORATORY | | + + + + + + | BUN | 7 (L) | 8 - 21 mg/dL | [facility] | | | | [facility] | | | [facility] | [facility] | | | | [facility] | | | | | | LABORATORY | | + + + + + + | Creatinine | 1.00 | 0.5 - 1.2 mg/dL | [facility] [...] + + + + | Estimated | 58 (L)Comment: GFR <60: | >60 | [facility] [...] + + + + + | [facility] | [address] | [place] [address] | | | [facility] [employer] | | | | | LABORATORY | | | | + + + + + Magnesium (01/13/2014 6:00 AM PDT) + +-------+ + + + | Component | Value | Ref Range | Performed | Pathologist | | | | | At | Signature | + +-------+ + + + | Magnesium | 2.5 | 1.7 - 2.6 mg/dL | [facility] [...] + + + + + | [facility] | [address] [facility] | [place] [address] | | | [facility] | | | | | LABORATORY | | | | + + + + + XR Chest PA and Lateral (01/12/2014 8:58 AM PDT) + + | Specimen | + + | | + + + + + | Narrative | Performed At | + + + | CHEST TWO VIEWS CLINICAL INFORMATION: Pleural effusion | [facility] | | and shortness of breath. COMPARISON: 01/08/2014. FINDINGS: | | | Mild interval improved aeration within the left lung with interval | | | decrease in moderate left pleural effusion. Small right pleural | | | effusion persists. Cardiomediastinal contours are stable. No acute | | | displaced bony fractures. Median sternotomy and CABG. IMPRESSION: | | | Mild interval improved aeration within the left lung with interval | | | decrease in moderate left pleural effusion. Small right pleural | | | effusion is unchanged. | | + + + + + | Procedure Note | + + | Mauricio, Rad Results In - 01/12/2014 9:27 AM PDT | | | | CHEST TWO VIEWS | | | | CLINICAL INFORMATION: | | Pleural effusion and shortness of breath. | | | | COMPARISON: | | 01/08/2014. | | | | FINDINGS: | | Mild interval improved aeration within the left lung with interval | | decrease in moderate left pleural effusion. Small right pleural | | effusion persists. Cardiomediastinal contours are stable. No acute | | displaced bony fractures. Median sternotomy and CABG. | | | | IMPRESSION: | | Mild interval improved aeration within the left lung with interval | | decrease in moderate left pleural effusion. Small right pleural | | effusion is unchanged. | + + + + + + + | Performing | Address | City/State/Zipcode | Phone Number | | Organization | | | | + + + + + | [facility] | [facility], [address] | [place] [address] | [phone] | | | [place] | | | + + + + + Protime INR (01/12/2014 6:10 AM PDT) + + + + + + | Component | Value | Ref Range | Performed | Pathologist | | | | | At | Signature | + + + + + + | Prothrombin | 31.8 (H) | 8.9 - 11.7 sec | [facility] | | | Time | | | [facility] | | | | | | [facility] | [facility] | | | | | | LABORATORY | | + + + + + + | INR | 3.0 (H)Comment: Usual | 0.9 - 1.3 | [...] + + | [facility] | [address] | [place] [address] | | | [facility] [employer] | | | | | LABORATORY | | | | + + + + + Basic Metabolic Panel (01/12/2014 6:10 AM PDT) + + + + + + | Component | Value | Ref Range | Performed | Pathologist | | | | | At | Signature | + + + + + + | Na | 131 (L) | 135 - 145 | [facility] [...] + + + + | Cl | 92 (L) | 98 - 109 mmol/L | [facility] | | | | | [facility] | | | | | | [facility] | | | | | | LABORATORY | | + + + + + + | CO2 | 34 (H) | 21 - 32 mmol/L | [facility] | | | | | [facility] | | | | | [facility] | | | | | | LABORATORY | | + + + + + + | Glucose | 93 | 60 - 114 mg/dL | [facility] | | | | | [facility] | | | | | [facility] | | | | | | LABORATORY | | + + + + + + | BUN | 11 | 8 - 21 mg/dL | [facility] | | | | | [facility] | | | | | [facility] | | | | | | LABORATORY | | + + + + + + | Creatinine | 1.00 | 0.5 - 1.2 mg/dL | [facility] [...] | 9 (L) | 10 - 20 mmol/L | [facility] | | | | | | [facility] | | | | | [facility] | | | | | | LABORATORY | | + + + + + + | Estimated | 58 (L)Comment: GFR <60: | >60 | [facility] [...] + + | [facility] | [address] | [place] [address] | | | [facility] [employer] | | | | | LABORATORY | | | | + + + + + CBC no Differential (01/12/2014 6:10 AM PDT) + + + + + + | Component | Value | Ref Range | Performed | Pathologist | | | | | At | Signature | + + + + + + | WBC | 4.5 | 4.0 - 11.0 K/uL | [facility] | | | | | | [facility] | | | | | [facility] | | | | | | LAB[facility]ATORY | | + + + + + + | RBC | 2.99 (L) | 3.80 - 5.20 | [facility] | | | | | M/uL | [facility] | | | | | | [facility] | [facility] | | | | | | LABORATORY | | + + + + + + | Hemoglobin | 9.8 (L) | 11.6 - 15.5 | [facility] | | | | | g/dL | [facility] | | | | | | [facility] | [facility] | | | | | | LABORATORY | | + + + + + + | Hematocrit | 27.4 (L) | 35.0 - 46.0 % | [...] + + + + | MCH | 32.8 | 27.0 - 34.0 pg | [facility] | | | | | | [facility] | | | | | | [facility] | | | | | | LAB[facility]ATORY | | + + + + + + | MCHC | 35.7 (H) | 32.0 - 35.5 | [facility] | | | | | g/dL | [facility] | | | | | | [facility] | [facility] | | | | | | LABORATORY | | + + + + + + | RDW-CV | 13.6 | 11.0 - 15.0 % | [facility] | | | | | | [facility] | | | | | | [facility] | | | | | | LABORATORY | | + + + + + + | Platelet | 404 (H) | 150 - 400 K/uL | [facility] [...] + + | [facility] | [address] | [place] [address] | | | [facility] | | | | | LABORATORY | | | | + + + + + Protime INR (01/11/2014 9:30 AM PDT) + + + + + + | Component | Value | Ref Range | Performed | Pathologist | | | | | At | Signature | + + + + + + | Prothrombin | 29.1 (H) | 8.9 - 11.7 sec | [facility] | | | Time | | | [facility] | | | | | | [facility] | | | | | | LAB[facility]ATORY | | + + + + + + | INR | 2.7 (H)Comment: Usual | 0.9 - 1.3 | [...] + + | [facility] | [address] | [place] [address] | | | [facility] | | | | | LABORATORY | | | | + + + + + Troponin I (01/11/2014 9:30 AM PDT) + + + + + + | Component | Value | Ref Range | Performed | Pathologist | | | | | At | Signature | + + + + + + | Troponin I | 0.91 (H)Comment: | 0.00 - 0.08 | [facility] | | | | Probable myocardial | ng/mL | [facility] | | | | injury. If clinically | | [facility] | | | | indicated serial testing | | [facility] | | | | may be helpful. | | LABORATORY | | + + + + + + + + | Specimen | + + | Blood specimen | | (specimen) | + + + + + + + | Performing | Address | City/State/Zipcode | Phone Number | | Organization | | | | + + + + + | [facility] | [address] | [place] [address] | | | [facility] | | | | | LABORATORY | | | | + + + + + Basic Metabolic Panel (01/11/2014 6:00 AM PDT) + + + + + + | Component | Value | Ref Range | Performed | Pathologist | | | | | At | Signature | + + + + + + | Na | 128 (L) | 135 - 145 | [facility] | | | | | mmol/L | [facility] | | | | | | [facility] | | [facility] | | | | | | LABORATORY | | + + + + + + | K | 4.3 | 3.5 - 5.1 | [facility] | | | | | mmol/L | [facility] | | | | | | [facility] | [facility] | | | | | | LABORATORY | | + + + + + + | Cl | 89 (L) | 98 - 109 mmol/L | [facility] | | | | | | [facility] | | | | | | [facility] | [facility] | | | | | | LAB[facility]ATORY | | + + + + + + | CO2 | 35 (H) | 21 - 32 mmol/L | [facility] | | | | | | [facility] | | | | | | [facility] | | | | | | LABORATORY | | + + + + + + | Glucose | 87 | 60 - 114 mg/dL | [facility] | | | | | | [facility] | | | | | [facility] | | | | | | LAB[facility]ATORY | | + + + + + + | BUN | 12 | 8 - 21 mg/dL | [facility] | | | | | | [facility] | | | | | | [facility] | [facility] | | | | | | LAB[facility]ATORY | | + + + + + + | Creatinine | 1.20 | 0.5 - 1.2 mg/dL | [facility] | | | | | | [facility] | | | | | | [facility] | [facility] | | | | | | LAB[facility]ATORY | | + + + + + + | Calcium | 8.8 | 8.4 - 10.5 | [facility] | | | | | mg/dL | [facility] | | | | | | [facility] | | | | | | LAB[facility]ATORY | | + + + + + + | Anion Gap | 8 (L) | 10 - 20 mmol/L | [facility] | | | | | | [facility] | | | | | [facility] | | | | | | LAB[facility]ATORY | | + + + + + + | Estimated | 47 (L)Comment: GFR <60: | >60 | [facility] [...] + + | [facility] | [address] | [place] [address] | | | [facility] | | | | | LABORATORY | | | | + + + + + CBC with Differential (01/11/2014 6:00 AM PDT) + + + + + + | Component | Value | Ref Range | Performed | Pathologist | | | | | At | Signature | + + + + + + | WBC | 5.7 | 4.0 - 11.0 K/uL | [facility] | | | | | | [facility] | | | | | [facility] | | | | | | [facility]ATORY | | + + + + + + | RBC | 2.96 (L) | 3.80 - 5.20 | [facility] | | | | | M/uL | [facility] | | | | | | [facility] | | | | | | LAB[facility]ATORY | | + + + + + + | Hemoglobin | 9.6 (L) | 11.6 - 15.5 | [facility] | | | | | g/dL | [facility] | | | | | | [facility] | | | | | | LAB[facility]ATORY | | + + + + + + | Hematocrit | 27.4 (L) | 35.0 - 46.0 % | [facility] | | | | | | [facility] | | | | | | [facility] | | | | | | LAB[facility]ATORY | | + + + + + + | MCV | 92.3 | 80.0 - 100.0 fL | [facility] | | | | | | [facility] | | | | | | [facility] | | | | | | [facility]ATORY | | + + + + + + | MCH | 32.5 | 27.0 - 34.0 pg | [facility] | | | | | | [facility] | | | | | | [facility] | | | | | | [facility]ATORY | | + + + + + + | MCHC | 35.2 | 32.0 - 35.5 | [facility] | | | | | g/dL | [facility] | | | | | | [facility] | [facility] | | | | | | LAB[facility]ATORY | | + + + + + + | RDW-CV | 14.0 | 11.0 - 15.0 % | [facility] | | | | | | [facility] | | | | | [facility] | | | | | | LABORATORY | | + + + + + + | Platelet | 414 (H) | 150 - 400 K/uL | [facility] [...] + + + + | % | 73.9 | 38.0 - 80.0 % | [facility] | | | Neutrophils | | | [facility] | | | | | | [facility] | | | | | | LAB[facility]ATORY | | + + + + + + | % | 11.3 (L) | 21.0 - 49.0 % | [facility] | | | Lymphocytes | | | [facility] | | | | | | [facility] | [facility] | | | | | | LAB[facility]ATORY | | + + + + + + | % Monocytes | 11.8 (H) | 3.0 - 11.0 % | [facility] | | | | | | [facility] | | | | | | [facility] | [facility] | | | | | | LAB[facility]ATORY | | + + + + + + | % | 2.5 | 0.0 - 7.0 % | [facility] [...] + + + + | Absolute | 4.30 | 1.8 - 7.7 K/uL | [facility] | | | Neutrophils | | | [facility] | | | | | | [facility] | [facility] | | | | | | LAB[facility]ATORY | | + + + + + + | Absolute | 0.60 (L) | 1.0 - 5.0 K/uL | [facility] | | | Lymphocytes | | | [facility] | | | | | | [facility] | | [facility] | | | | | | LABORATORY | | + + + + + + | Absolute | 0.70 | 0 - 0.8 K/uL | [facility] [...] | + + + + + | [facility] | [address] | [place] [address] | | | [facility] | | | | | LABORATORY | | | | + + + + + Troponin I (01/11/2014 3:20 AM PDT) + + + + + + | Component | Value | Ref Range | Performed | Pathologist | | | | | At | Signature | + + + + + + | Troponin I | 0.94 (H)Comment: | 0.00 - 0.08 | [facility] | | | | Probable myocardial | ng/mL | [facility] | | | | injury. If clinically | | [facility] | | | | indicated serial testing | | HOSPITAL | | | | may be helpful. | | LABORATORY | | + + + + + + + + | Specimen | + + | Blood specimen | | (specimen) | + + + + + + + | Performing | Address | City/State/Zipcode | Phone Number | | Organization | | | | + + + + + | [facility] | [address] | [place] [address] | | | [facility] | | | | | LAB[facility]ATORY | | | | + + + + + Troponin I (01/10/2014 9:20 PM PDT) + + + + + + | Component | Value | Ref Range | Performed | Pathologist | | | | | At | Signature | + + + + + + | Troponin I | 0.96 (H)Comment: | 0.00 - 0.08 | [facility] | | | | Probable myocardial | ng/mL | [facility] | | | | injury. If clinically | | [facility] | | | | indicated serial testing | | HOSPITAL | | | | may be helpful. | | LABORATORY | | + + + + + + + + | Specimen | + + | Blood specimen | | (specimen) | + + + + + + + | Performing | Address | City/State/Zipcode | Phone Number | | Organization | | | | + + + + + | [facility] | [address] | [place] [address] | | | [facility] | | | | | LABORATORY | | | | + + + + + Troponin I (01/10/2014 6:00 PM PDT) + + + + + + | Component | Value | Ref Range | Performed | Pathologist | | | | | At | Signature | + + + + + + | Troponin I | 1.00 (H)Comment: | 0.00 - 0.08 | [facility] | | | | Probable myocardial | ng/mL | [facility] | | | | injury. If clinically | | [facility] | | | | indicated serial testing | | HOSPITAL | | | | may be helpful. | | LABORATORY | | + + + + + + + + | Specimen | + + | Blood specimen | | (specimen) | + + + + + + + | Performing | Address | City/State/Zipcode | Phone Number | | Organization | | | | + + + + + | [facility] | [address] | [place] [address] | | | [facility] | | | | | LABORATORY | | | | + + + + + Basic Metabolic Panel (01/10/2014 9:15 AM PDT) + + + + + [...] | K | 3.8 | 3.5 - 5.1 | [facility] | | | | | mmol/L | [facility] | | | | | | [facility] | | | | [facility] | | | | | | LABORATORY | | + + + + + + | Cl | 92 (L) | 98 - 109 mmol/L | [facility] | | | | | | [facility] | | | | | | [facility] | | | | [facility] | | | | | | LAB[facility]ATORY | | + + + + + + | CO2 | 30 | 21 - 32 mmol/L | [facility] | | | | | | [facility] | | | | | | [facility] | | | | [facility] | | | | | | LAB[facility]ATORY | | + + + + + + | Glucose | 127 (H) | 60 - 114 mg/dL | [facility] | | | | | | [facility] | | | | | | [facility] | [facility] | | | | | | LABORATORY | | + + + + + + | BUN | 11 | 8 - 21 mg/dL | [facility] | | | | | | [facility] | | | | | | [facility] | | [facility] | | | | | | LAB[facility]ATORY | | + + + + + + | Creatinine | 1.10 | 0.5 - 1.2 mg/dL | [facility] | | | | | | [facility] | | | | | | [facility] | | [facility] | | | | | | LAB[facility]ATORY | | + + + + + + | Calcium | 8.7 | 8.4 - 10.5 | [facility] | [...] + + + + | Estimated | 52 (L)Comment: GFR <60: | >60 | [facility] [...] + + | [facility] | [address] | [place] [address] | | | [facility] | | | | | LABORATORY | | | | + + + + + Troponin I (01/10/2014 9:15 AM PDT) + + + + + + | Component | Value | Ref Range | Performed | Pathologist | | | | | At | Signature | + + + + + + | Troponin I | 1.02 (H)Comment: | 0.00 - 0.08 | [facility] | | | | Probable myocardial | ng/mL | [facility] | | | | injury. If clinically | | [facility] | | | | indicated serial testing | | HOSPITAL | | | | may be helpful. | | LABORATORY | | + + + + + + + + | Specimen | + + | Blood specimen | | (specimen) | + + + + + + + | Performing | Address | City/State/Zipcode | Phone Number | | Organization | | | | + + + + + | [facility] | [address] | [place] [address] | | | [facility] | | | | | LABORATORY | | | | + + + + + Creatinine, Urine, Random (01/10/2014 8:00 AM PDT) + +-------+ + + + | Component | Value | Ref Range | Performed | Pathologist | | | | | At | Signature | + +-------+ + + + | Creatinine, | 31 | 10 - 300 mg/dL | [facility] | | | random | | | [facility] | | | urine | | | [facility] | | | | [facility] | | | | | | LABORATORY | | + +-------+ + + + + + | Specimen | + + | Urine specimen | | (specimen) - Urine, | | Unspecified Source | + + + + + + + | Performing | Address | City/State/Zipcode | Phone Number | | Organization | | | | + + + + + | [facility] | [address] | [place] [address] | | | [facility] | | | | | LABORATORY | | | | + + + + + Sodium, Urine, Random (01/10/2014 8:00 AM PDT) + +-------+ + + + | Component | Value | Ref Range | Performed | Pathologist | | | | | At | Signature | + +-------+ + + + | Sodium, | 56 | mmol/L | [facility] | | | Urine | | | [facility] | | | Random | | | [facility] | | | [facility] | | | | | | LABORATORY | | + +-------+ + + + + + | Specimen | + + | Urine specimen | | (specimen) - Urine, | | Unspecified Source | + + + + + + + | Performing | Address | City/State/Zipcode | Phone Number | | Organization | | | | + + + + + | [facility] | [address] | [place] [address] | | | [facility] | | | | | LABORATORY | | | | + + + + + Eosinophil Smear, Urine (01/10/2014 8:00 AM PDT) + + + + + + | Component | Value | Ref Range | Performed | Pathologist | | | | | At | Signature | + + + + + + | Eosinophil, | <1Comment: 0 to 5 WBC | <1 % | [facility] | | | Urine | per high power oil | | [facility] | | | | immersion | | [facility] | | | | field.Performed at | | HOSPITAL | | | | [facility] | | LABORATORY | | | | [place], [address], | | | | | | [place] [id number] | | | | + + + + + + + + | Specimen | + + | Urine specimen | | (specimen) - Urine, | | Unspecified Source | + + + + + + + | Performing | Address | City/State/Zipcode | Phone Number | | Organization | | | | + + + + + | [facility] | [address] | [place] [address] | | | [facility] | | | | | LABORATORY | | | | + + + + + Protime INR (01/10/2014 6:00 AM PDT) + + + + + + | Component | Value | Ref Range | Performed | Pathologist | | | | | At | Signature | + + + + + + | Prothrombin | 27.8 (H) | 8.9 - 11.7 sec | [facility] | | | Time | | | [facility] | | | | | | [facility] | | | | [facility] | | | | | | LABORATORY | | + + + + + + | INR | 2.6 (H)Comment: Usual | 0.9 - 1.3 | [...] + + | [facility] | [address] | [place] [address] | | | [facility] | | | | | LABORATORY | | | | + + + + + CBC with Manual Differential (01/10/2014 6:00 AM PDT) + + + + + + | Component | Value | Ref Range | Performed | Pathologist | | | | | At | Signature | + + + + + + | WBC | 5.4 | 4.0 - 11.0 K/uL | [facility] | | | | | | [facility] | | | | | | [facility] | [facility] | | | | | | LABORATORY | | + + + + + + | RBC | 3.20 (L) | 3.80 - 5.20 | [facility] | | | | | M/uL | [facility] | | | | | | [facility] | [facility] | | | | | | LAB[facility]ATORY | | + + + + + + | Hemoglobin | 10.4 (L) | 11.6 - 15.5 | [facility] | | | | | g/dL | [facility] | | | | | | [facility] | [facility] | | | | | | LAB[facility]ATORY | | + + + + + + | Hematocrit | 29.6 (L) | 35.0 - 46.0 % | [facility] | | | | | | [facility] | | | | | [facility] | | | | | | [facility]ATORY | | + + + + + + | MCV | 92.5 | 80.0 - 100.0 fL | [facility] | | | | | | [facility] | | | | | [facility] | | | | | | [facility]ATORY | | + + + + + + | MCH | 32.5 | 27.0 - 34.0 pg | [facility] | | | | | | [facility] | | | | | [facility] | | | | | | [facility]ATORY | | + + + + + + | MCHC | 35.2 | 32.0 - 35.5 | [facility] | | | | | g/dL | [facility] | | | | | | [facility] | | [facility] | | | | | | LABORATORY | | + + + + + + | RDW-CV | 14.2 | 11.0 - 15.0 % | [facility] | | | [facility] | | | | | | [facility] | | + + + + + + | Platelet | 377 | 150 - 400 K/uL | [facility] | | Count | | | [facility] | [facility] | | | | | | [facility]ATORY | | + + + + + + | % Segmented | 84.0 (H) | 38.0 - 80.0 % | [facility] | | | [facility] | | | Neutrophils | | | [facility] | | | | | | [facility]ATORY | | + + + + + + | % Bands | 2.0 | 0.0 - 8.0 % | [facility] | | | | | | [facility] | | + + + + + + | % | 8.0 (L) | 21.0 - 49.0 % | [facility] | | | Lymphocytes | | | [facility] | | | | | [facility] | | | | | | [facility]ATORY | | + + + + + + | % Monocytes | 4.0 | 3.0 - 11.0 % | [facility] [...] + + + + | Absolute | 4.53 | 1.8 - 7.7 K/uL | [facility] | | | Segmented | | | [facility] | | | Neutrophils | | | [facility] | | | | | | [facility] | | + + + + + + | Absolute | 0.11 | 0 - 0.2 K/uL | [facility] | | | Bands | | | [facility] | | | | | [facility] | | | | | | [facility] | | + + + + + + | Absolute | 0.43 (L) | 1.0 - 5.0 K/uL | [facility] | | | Lymphocytes | | | [facility] | | | | | [facility] | | | | | | [facility] | | + + + + + + | Absolute | 0.22 | 0 - 0.8 K/uL | [facility] | | | Monocytes | | | [facility] | | | | | [facility] | | | | | | [facility] | | + + + + + + | Absolute | 0.11 | 0 - 0.5 K/uL | [facility] | | | Eosinophils | | | [facility] | | | | | [facility] | [facility] | | | | | | [facility] | | + + + + + + | RBC | Normal | | [facility] | | | Morphology | | | [facility] | | | | | [facility] | | | | | | [facility] | | + + + + + + | WBC | Normal | | [facility] | | | Morphology | | | [facility] | | [facility] | | [facility] | [facility] | | | | | | [facility] | | + + + + + + | Platelet | Adequate | | [facility] | | | Morphology | | | [facility] | | | | | [facility] | | | | | | [facility]ATORY | | + + + + + + | Total | 100 | | [facility] | | | Counted | | | [facility] | | | [...] + + + + + | [facility] | [address] | [place] [address] | | | [facility] | | | | | LABORATORY | | | | + + + + + Troponin I (01/10/2014 3:15 AM PDT) + + + + + + | Component | Value | Ref Range | Performed | Pathologist | | | | | At | Signature | + + + + + + | Troponin I | 1.05 (H)Comment: | 0.00 - 0.08 | [facility] | | | | Probable myocardial | ng/mL | [facility] | | | | injury. If clinically | | [facility] | | | | indicated serial testing | | [facility] | | | | may be helpful. | | LABORATORY | | + + + + + + + + | Specimen | + + | Blood specimen | | (specimen) | + + + + + + + | Performing | Address | City/State/Zipcode | Phone Number | | Organization | | | | + + + + + | [facility] | [address] | [place] [address] | | | [facility] | | | | | LABORATORY | | | | + + + + + Troponin I (01/09/2014 9:50 PM PDT) + + + + + + | Component | Value | Ref Range | Performed | Pathologist | | | | | At | Signature | + + + + + + | Troponin I | 1.17 (H)Comment: | 0.00 - 0.08 | [facility] | | | | Probable myocardial | ng/mL | [facility] | | | | injury. If clinically | | [facility] | | | | indicated serial testing | | [facility] | | | | may be helpful. | | LABORATORY | | + + + + + + + + | Specimen | + + | Blood specimen | | (specimen) | + + + + + + + | Performing | Address | City/State/Zipcode | Phone Number | | Organization | | | | + + + + + | [facility] | [address] | [place] [address] | | | [facility] | | | | | LABORATORY | | | | + + + + + Protime INR (01/09/2014 12:30 PM PDT) + + + + + + | Component | Value | Ref Range | Performed | Pathologist | | | | | At | Signature | + + + + + + | Prothrombin | 33.5 (H) | 8.9 - 11.7 sec | [facility] | | | Time | | | [facility] | | | | | | [facility] | | | | | | LAB[facility]ATORY | | + + + + + + | INR | 3.1 (H)Comment: Usual | 0.9 - 1.3 | [...] + + + | [facility] | [address] | [place] [address] | | | [facility] | | | | | LAB[facility]ATORY | | | | + + + + + ECG 12 lead (01/09/2014 11:00 AM PDT) + + + | Narrative | Performed At | + + + | Donald Mendiola MD 01/09/2014 11:00 Abnormal ECG. Normal | | | sinus rhythm. Left axis deviation. Nonspecific ST - T wave | | | changes. Since prior tracing dated January 06, 2014, normal sinus | | | rhythm has replaced atrial fibrillation. | | + + + + + | Procedure Note | + + | Donald Mendiola MD - 01/09/2014 10:59 AM PDT Abnormal ECG. Normal sinus rhythm. | | Left axis deviation. Nonspecific ST - T wave changes. Since prior tracing dated December | | 2013, normal sinus rhythm has replaced atrial fibrillation. | + + Troponin I (01/09/2014 9:30 AM PDT) + + + + + + | Component | Value | Ref Range | Performed | Pathologist | | | | | At | Signature | + + + + + + | Troponin I | 1.14 (H)Comment: | 0.00 - 0.08 | [facility] | | | | Probable myocardial | ng/mL | [facility] | | | | injury. If clinically | | [facility] | | | | indicated serial testing | | [facility] | | | | may be helpful. | | LABORATORY | | + + + + + + + + | Specimen | + + | Blood specimen | | (specimen) | + + + + + + + | Performing | Address | City/State/Zipcode | Phone Number | | Organization | | | | + + + + + | [facility] | [address] | [place] [address] | | | [facility] | | | | | LABORATORY | | | | + + + + + Troponin I (01/09/2014 3:40 AM PDT) + + + + + + | Component | Value | Ref Range | Performed | Pathologist | | | | | At | Signature | + + + + + + | Troponin I | 1.11 (H)Comment: | 0.00 - 0.08 | [facility] | | | | Probable myocardial | ng/mL | [facility] | | | | injury. If clinically | | [facility] | | | | indicated serial testing | | [facility]PITAL | | | | may be helpful. | | LABORATORY | | + + + + + + + + | Specimen | + + | Blood specimen | | (specimen) | + + + + + + + | Performing | Address | City/State/Zipcode | Phone Number | | Organization | | | | + + + + + | [facility] | [address] | [place] [address] | | | [facility] | | | | | LABORATORY | | | | + + + + + Comprehensive Metabolic Panel (01/09/2014 3:40 AM PDT) + + + + + + | Component | Value | Ref Range | Performed | Pathologist | | | | | At | Signature | + + + + + + | Na | 133 (L) | 135 - 145 | [facility] [...] + + + + | Cl | 94 (L) | 98 - 109 mmol/L | [facility] [...] + + + + | Glucose | 91 | 60 - 114 mg/dL | [facility] | | | [facility] | | | | | [facility] | | | | | | [facility]ATORY | | + + + + + + | BUN | 10 | 8 - 21 mg/dL | [facility] [...] + + + + | Total | 7.3 | 6.3 - 8.0 g/dL | [facility] | | | Protein | | | [facility] | | | | | | [facility] | [facility] | | | | | | LABORATORY | | + + + + + + | Albumin | 3.0 (L) | 3.5 - 5.0 g/dL | [facility] [...] + + + + | Alkaline | 103 | 38 - 110 U/L | [facility] | | | Phosphatase | | | [facility] | | | | | | [facility] | | | | [facility] | | | | | | LAB[facility]ATORY | | + + + + + + | AST | 12 | 5 - 40 U/L | [facility] | | | | | [facility] | | | | | [facility] | | | | | | LAB[facility]ATORY | | + + + + + + | ALT | 18 | 12 - 78 U/L | [facility] [...] + + | [facility] | [address] | [place] [address] | | | [facility] | | | | | LABORATORY | | | | + + + + + CBC with Manual Differential (01/09/2014 3:40 AM PDT) + + + + + + | Component | Value | Ref Range | Performed | Pathologist | | | | | At | Signature | + + + + + + | WBC | 6.6 | 4.0 - 11.0 K/uL | [facility] | | | | [facility] | | | | | [facility] | | | | | | [facility]ATORY | | + + + + + + | RBC | 3.05 (L) | 3.80 - 5.20 | [facility] | | | | | M/uL | [facility] | | | | | | [facility] | [facility] | | | | | | LAB[facility]ATORY | | + + + + + + | Hemoglobin | 9.9 (L) | 11.6 - 15.5 | [facility] | | | | | g/dL | [facility] | | | | | | [facility] | | | | | | LAB[facility]ATORY | | + + + + + + | Hematocrit | 28.7 (L) | 35.0 - 46.0 % | [...] + + + + | RDW-CV | 14.7 | 11.0 - 15.0 % | [facility] | | | | | | [facility] | | | | | [facility] | [facility] | | | | | | LAB[facility]ATORY | | + + + + + + | Platelet | 424 (H) | 150 - 400 K/uL | [facility] | | | Count | | | [facility] | | | | | | [facility] | | | | | | LAB[facility]ATORY | | + + + + + + | % Segmented | 70.0 | 38.0 - 80.0 % | [facility] | | | | | | [facility] | | | Neutrophils | | | [facility] | | [facility] | | | | | | LABORATORY | | + + + + + + | % Bands | 4.0 | 0.0 - 8.0 % | [facility] | | | | | | [facility] | | | | | [facility] | | | | | | LAB[facility]ATORY | | + + + + + + | % | 13.0 (L) | 21.0 - 49.0 % | [facility] | | | Lymphocytes | | | [facility] | | | | | | [facility] | | | | | | LABORATORY | | + + + + + + | % Monocytes | 9.0 | 3.0 - 11.0 % | [facility] | | | | | | [facility] | | | | | [facility] | | | | | | LAB[facility]ATORY | | + + + + + + | % | 3.0 | 0.0 - 7.0 % | [facility] | | | Eosinophils | | | [facility] | | | | | | [facility] | | | | | | LAB[facility]ATORY | | + + + + + + | % Basophils | 1.0 | 0.0 - 2.0 % | [facility] | | | | | | [facility] | | | | | [facility] | | | | | | LAB[facility]ATORY | | + + + + + + | Absolute | 4.62 | 1.8 - 7.7 K/uL | [facility] | | | Segmented | | | [facility] | | | Neutrophils | | | [facility] | | | | | | LABORATORY | | + + + + + + | Absolute | 0.26 (H) | 0 - 0.2 K/uL | [facility] | | | Bands | | | [facility] | | | | | | [facility] | | | | | | LAB[facility]ATORY | | + + + + + + | Absolute | 0.86 (L) | 1.0 - 5.0 K/uL | [facility] | | | Lymphocytes | | | [facility] | | | | | | [facility] | | | | | | LAB[facility]ATORY | | + + + + + + | Absolute | 0.59 | 0 - 0.8 K/uL | [facility] | | | Monocytes | | | [facility] | [facility] | | | [facility] | | | | | | LAB[facility]ATORY | | + + + + + + | Absolute | 0.20 | 0 - 0.5 K/uL | [facility] | | | Eosinophils | | | [facility] | [facility] | | | [facility] | | | | | | LAB[facility]ATORY | | + + + + + + | Absolute | 0.07 | 0 - 0.2 K/uL | [facility] | | | Basophils | | | [facility] | | | | | | [facility] | | | | | | LAB[facility]ATORY | | + + + + + + | RBC | Normal | | [facility] | | | Morphology | | | [facility] | | | | | [facility] | [facility] | | | | | | [facility]ATORY | | + + + + + + | WBC | Normal | | [facility] | | | Morphology | | | [facility] | | | | | [facility] | | | | | | [facility]ATORY | | + + + + + + | Platelet | Increased | | [facility] | | | Morphology | | | [facility] | | | | | [facility] | | | | | | LAB[facility]ATORY | | + + + + + + | Total | 100 | | [facility] | | | Counted | | | [facility] | | | [...] + + | [facility] | [address] | [place] [address] | | | [facility] | | | | | LABORATORY | | | | + + + + + Troponin I (01/08/2014 3:50 PM PDT) + + + + + + | Component | Value | Ref Range | Performed | Pathologist | | | | | At | Signature | + + + + + + | Troponin I | 1.00 (H)Comment: | 0.00 - 0.08 | [facility] | | | | Probable myocardial | ng/mL | [facility] | | | | injury. If clinically | | [facility] | | | | indicated serial testing | | [facility] | | | | may be helpful. | | LABORATORY | | + + + + + + + + | Specimen | + + | Blood specimen | | (specimen) | + + + + + + + | Performing | Address | City/State/Zipcode | Phone Number | | Organization | | | | + + + + + | [facility] | [address] | [place] [address] | | | [facility] | | | | | LABORATORY | | | | + + + + + Troponin I (01/08/2014 9:05 AM PDT) + + + + + + | Component | Value | Ref Range | Performed | Pathologist | | | | | At | Signature | + + + + + + | Troponin I | 1.08 (H)Comment: | 0.00 - 0.08 | [facility] | | | | Probable myocardial | ng/mL | [facility] | | | | injury. If clinically | | [facility] | | | | indicated serial testing | | [facility]ITAL | | | | may be helpful. | | LABORATORY | | + + + + + + + + | Specimen | + + | Blood specimen | | (specimen) | + + + + + + + | Performing | Address | City/State/Zipcode | Phone Number | | Organization | | | | + + + + + | [facility] | [address] | [place] [address] | | | [facility] | | | | | LABORATORY | | | | + + + + + XR Chest PA and Lateral (01/08/2014 6:57 AM PDT) + + | Specimen | + + | | + + + + + | Narrative | Performed At | + + + | CHEST TWO VIEWS CLINICAL INFORMATION: Follow up left | [facility] | | pleural effusion. COMPARISON: Portable chest on 01/06/2014. | | | FINDINGS: PA and lateral erect views of chest were obtained. | | | Overlying leads are noted. Patient is again status post open heart | | | surgery. Trachea is midline. Stable or minimally increasing | | | opacification in left mid to lower lung silhouetting left hilum, left | | | heart border, left hemidiaphragm and left costophrenic sulcus to | | | level of left lateral fifth interspace is seen, compatible with large | | | left pleural effusion with possible collapse of left lower lobe and | | | lingula. Mediastinal shift is not identified. Right lung appears | | | hyperaerated. There is no evidence of active infiltrate or congestive | | | process in right lung and visualized left upper lung. There is | | | possible blunting of right costophrenic sulcus, query mild pleural | | | effusion, pleural thickening or due to technique and overlying soft | | | tissues. Adjacent osseous structures are essentially unchanged from | | | prior exam. IMPRESSION: 1. Stable or minimally increasing | | | opacification in left mid to lower lung compatible with large left | | | pleural effusion with possible collapse of left lower lobe and | | | lingula as discussed above. 2. Hyperaerated right lung. 3. Possible | | | blunting of right costophrenic sulcus as discussed above. | | + + + + + | Procedure Note | + + | Mauricio, Rad Results In - 01/08/2014 9:02 AM PDT | | | | CHEST TWO VIEWS | | | | CLINICAL INFORMATION: | | Follow up left pleural effusion. | | | | COMPARISON: | | Portable chest on 01/06/2014. | | | | FINDINGS: | | PA and lateral erect views of chest were obtained. Overlying leads | | are noted. Patient is again status post open heart surgery. Trachea | | is midline. Stable or minimally increasing opacification in left mid | | to lower lung silhouetting left hilum, left heart border, left | | hemidiaphragm and left costophrenic sulcus to level of left lateral | | fifth interspace is seen, compatible with large left pleural effusion | | with possible collapse of left lower lobe and lingula. Mediastinal | | shift is not identified. Right lung appears hyperaerated. There is | | no evidence of active infiltrate or congestive process in right lung | | and visualized left upper lung. There is possible blunting of right | | costophrenic sulcus, query mild pleural effusion, pleural thickening | | or due to technique and overlying soft tissues. Adjacent osseous | | structures are essentially unchanged from prior exam. | | | | IMPRESSION: | | | | 1. Stable or minimally increasing opacification in left mid to lower | | lung compatible with large left pleural effusion with possible | | collapse of left lower lobe and lingula as discussed above. | | 2. Hyperaerated right lung. | | 3. Possible blunting of right costophrenic sulcus as discussed above. | | | + + + + + + + | Performing | Address | City/State/Zipcode | Phone Number | | Organization | | | | + + + + + | [facility] | [facility], [address] | [place] [address] | [phone] | | | [place] | | | + + + + + Troponin I (01/08/2014 4:00 AM PDT) + + + + + + | Component | Value | Ref Range | Performed | Pathologist | | | | | At | Signature | + + + + + + | Troponin I | 1.10 (H)Comment: | 0.00 - 0.08 | [facility] | | | | Probable myocardial | ng/mL | [facility] | | | | injury. If clinically | | [facility] | | | | indicated serial testing | | [facility] | | | | may be helpful. | | LABORATORY | | + + + + + + + + | Specimen | + + | Blood specimen | | (specimen) | + + + + + + + | Performing | Address | City/State/Zipcode | Phone Number | | Organization | | | | + + + + + | [facility] | [address] | [place] [address] | | | [facility] | | | | | LABORATORY | | | | + + + + + Protime INR (01/08/2014 4:00 AM PDT) + + + + + + | Component | Value | Ref Range | Performed | Pathologist | | | | | At | Signature | + + + + + + | Prothrombin | 37.2 (H) | 8.9 - 11.7 sec | [facility] | | | Time | | | [facility] | | | | | | [facility] | | | | | | LABORATORY | | + + + + + + | INR | 3.5 (H)Comment: Usual | 0.9 - 1.3 | [...] + + | [facility] | [address] | [place] [address] | | | [facility] | | | | | LABORATORY | | | | + + + + + NT-PRO BNP (01/08/2014 4:00 AM PDT) + + + + + + | Component | Value | Ref Range | Performed | Pathologist | | | | | At | Signature | + + + + + + | NT-proBNP | 2,731 (H) | <125 pg/mL | [facility] | [...] | + + + + + | [facility] | [address] | [place] [address] | | | [facility] | | | | | LABORATORY | | | | + + + + + Magnesium (01/08/2014 4:00 AM PDT) + +-------+ + + + | Component | Value | Ref Range | Performed | Pathologist | | | | | At | Signature | + +-------+ + + + | Magnesium | 2.5 | 1.7 - 2.6 mg/dL | [facility] | | | | | | [facility] | | | | | | [place] | | | | | | [facility] [...] + + + + + | [facility] | [address] | [place] [address] | | | [facility] | | | | | LABORATORY | | | | + + + + + Comprehensive Metabolic Panel (01/08/2014 4:00 AM PDT) + + + + + + | Component | Value | Ref Range | Performed | Pathologist | | | | | At | Signature | + + + + + + | Na | 134 (L) | 135 - 145 | [facility] [...] + + + + | Cl | 95 (L) | 98 - 109 mmol/L | [facility] | | | | | | [facility] | | | | | [facility] | | | | | | LAB[facility]ATORY | | + + + + + + | CO2 | 33 (H) | 21 - 32 mmol/L | [facility] | | | | | | [facility] | | | | | [facility] | | | | | | [facility]ATORY | | + + + + + + | Glucose | 91 | 60 - 114 mg/dL | [facility] | | | | | | [facility] | | | | | [facility] | | | | | | LAB[facility]ATORY | | + + + + + + | BUN | 11 | 8 - 21 mg/dL | [facility] | | | | | | [facility] | | | | | [facility] | | | | | | [facility]ATORY | | + + + + + + | Creatinine | 1.20 | 0.5 - 1.2 mg/dL | [facility] | | | | | | [facility] | | | | | | [facility] | | | | | | [facility]ATORY | | + + + + + + | Calcium | 8.5 | 8.4 - 10.5 | [facility] | | | | | mg/dL | [facility] | | | | | | [facility] | [facility] | | | | | | [facility]ATORY | | + + + + + + | Total | 6.8 | 6.3 - 8.0 g/dL | [facility] | | | Protein | | | [facility] | | | | | | [facility] | [facility] | | | | | | LAB[facility]ATORY | | + + + + + + | Albumin | 2.9 (L) | 3.5 - 5.0 g/dL | [facility] | | | | | | [facility] | | | | | [facility] | | | | | | [facility]ATORY | | + + + + + + | Bilirubin | 0.7 | 0.2 - 1.0 mg/dL | [facility] | | | Total | | | [facility] | | | | | | [facility] | | [facility] | | | | | | LAB[facility]ATORY | | + + + + + + | Alkaline | 95 | 38 - 110 U/L | [facility] | | | Phosphatase | | | [facility] | | | | | | [facility] | | [facility] | | | | | | LABORATORY | | + + + + + + | AST | 11 | 5 - 40 U/L | [facility] | | | | | | [facility] | | | | | [facility] | | | | | | [facility]ATORY | | + + + + + + | ALT | 16 | 12 - 78 U/L | [facility] [...] + + + + | Estimated | 47 (L)Comment: GFR <60: | >60 | [facility] [...] + + | [facility] | [address] | [place] [address] | | | [facility] | | | | | LABORATORY | | | | + + + + + CBC with Differential (01/08/2014 4:00 AM PDT) + + + + + + | Component | Value | Ref Range | Performed | Pathologist | | | | | At | Signature | + + + + + + | WBC | 6.9 | 4.0 - 11.0 K/uL | [facility] | | | | | | [facility] | | | | | [facility] | | | | | | [facility] | | + + + + + + | RBC | 2.95 (L) | 3.80 - 5.20 | [facility] | | | | | M/uL | [facility] | | | | | [facility] | | | | | | [facility]ATORY | | + + + + + + | Hemoglobin | 9.5 (L) | 11.6 - 15.5 | [facility] | | | | | g/dL | [facility] | | | | | [facility] | | | | | | [facility] | | + + + + + + | Hematocrit | 27.5 (L) | 35.0 - 46.0 % | [...] 32.2 | 27.0 - 34.0 pg | [facility] [...] + + + + | RDW-CV | 14.5 | 11.0 - 15.0 % | [facility] | | | | | [facility] | | [facility] | [facility] | [facility] | | | | | | [facility]AT[facility] | | + + + + + + | Platelet | 399 | 150 - 400 K/uL | [facility] [...] + + + + | % | 76.7 | 38.0 - 80.0 % | [facility] | | | Neutrophils | | | [facility] | | | | | [facility] | | | | | | [facility]ATORY | | + + + + + + | % | 11.5 (L) | 21.0 - 49.0 % | [facility] | | | Lymphocytes | | | [facility] | | | | | [facility] | | | | | | [facility]ATORY | | + + + + + + | % Monocytes | 9.3 | 3.0 - 11.0 % | [facility] | | | | | | [facility] | | | | | [facility] | | | | | | [facility] | | + + + + + + | % | 2.1 | 0.0 - 7.0 % | [facility] | | | Eosinophils | | | [facility] | | | | | [facility] | | | | | | [facility]ATORY | | + + + + + + | % Basophils | 0.4 | 0.0 - 2.0 % | [facility] | | | | | | [facility] | | | | | [facility] | | | | | | LAB[facility]ATORY | | + + + + + + | Absolute | 5.40 | 1.8 - 7.7 K/uL | [facility] | | | Neutrophils | | | [facility] | | | | | | LABORATORY | | + + + + + + | Absolute | 0.80 (L) | 1.0 - 5.0 K/uL | [...] + + + + + | [facility] | [address] | [place] [address] | | | [facility] [employer] | | | | | LABORATORY | | | | + + + + + ECG 12 lead (01/07/2014 1:04 PM PDT) + + + | Narrative | Performed At | + + + | Donald Mendiola MD 01/07/2014 13:04 Abnormal ECG. Atrial | | | flutter with 2-[address] - T wave changes. | | | Left anterior fascicular block. Since prior tracing dated same | | | date at 210 hours, atrial flutter appears to have replaced atrial | | | fibrillation. | | + + + + + | Procedure Note | + + | Donald Mendiola MD - 01/07/2014 1:03 PM PDT Abnormal ECG. Atrial flutter with 2-1 | | AV conduction. Nonspecific ST - T wave changes. Left anterior fascicular block. Since | | prior tracing dated same date at 210 hours, atrial flutter appears to have replaced | | atrial fibrillation. | + + ECG 12 lead (01/07/2014 1:03 PM PDT) + + + | Narrative | Performed At | + + + | Donald Mendiola MD 01/07/2014 13:03 Abnormal ECG. Atrial | | | fibrillation. Left axis deviation. Possible left anterior | | | fascicular block. Nonspecific ST - T wave changes. Since prior | | | tracing dated December 15, 2013, atrial fibrillation with rapid | | | ventricular response has replaced normal sinus rhythm. | | + + + + + | Procedure Note | + + | Donald Mendiola MD - 01/07/2014 1:02 PM PDT Abnormal ECG. Atrial fibrillation. | | Left axis deviation. Possible left anterior fascicular block. Nonspecific ST - T wave | | changes. Since prior tracing dated December 15, 2013, atrial fibrillation with rapid | | ventricular response has replaced normal sinus rhythm. | + + Red Blood Cells (PRBC) - Crossmatch (01/07/2014 11:55 AM PDT) + + + + + + | Component | Value | Ref Range | Performed | Pathologist | | | | | At | Signature | + + + + + + | Units | 2 | | [facility] | | | ordered | | | [facility] | | [facility] | | | | | | [facility]ATORY | | + + + + + + | BLOOD BANK | [id number] | | [facility] | | | NUMBER | | | [facility] | | [facility] | | | | | | [facility]ATORY | | + + + + + + | ABO Rh | B NEGATIVE | | [facility] | | | [facility] | | | | | | [facility]ATORY | | + + + + + + | Antibody | NEGATIVE | | [facility] | | Screen | | [facility] | [facility] | | | | | | [facility]AT[facility] | | + + + + + + | UNIT ID | [id number] | | [facility] | | | [facility] | | | | | | [facility] | | + + + + + + | Blood Bank | PC,Filtered | | [facility] | | | Order | | | [facility] | [facility] | | | | | | [facility]ATORY | | + + + + + + | Unit | 00 | | [facility] | | | [facility] | | | [facility] | | | | | | [facility]ATORY | | + + + + + + | Unit Status | TRANSFUSED [id number] | | [facility] | | | | [facility] | | | | | | [facility] | | + + + + + + | Transfusion | OK TO TRANSFUSE | | [facility] | | | Status | | | [facility] | | | | | | [facility] | | + + + + + + | CROSSMATCH | Compatible | | [facility] | | | | [facility] | [facility] | | | | | | [facility] | | + + + + + + | UNIT ID | [id number] | | [facility] | | [facility] | [facility] | [facility] | [facility] | | [facility] | | + + + + + + | Blood Bank | PC,Filtered | | [facility] | | | Order | | | [facility] | | [facility] | [facility] | | | | | | [facility] | | + + + + + + | Unit | 00 | | [facility] | | | [facility] | | | [facility] | | | | | | [facility] | | + + + + + + | Unit Status | TRANSFUSED [id number] | | [facility] | | | [facility] | [facility] | | | | | | [facility] | | + + + + + + | Transfusion | OK TO TRANSFUSE | | [facility] | | | Status | | | [facility] | [facility] | | | | | | [facility] | | + + + + + + | CROSSMATCH | Compatible | | [facility] | | | | [...] + | [facility] | [address] | [place] [address] | | | [facility] | | | | | LABORATORY | | | | + + + + + Troponin I (01/07/2014 8:35 AM PDT) + + + + + + | Component | Value | Ref Range | Performed | Pathologist | | | | | At | Signature | + + + + + + | Troponin I | 1.17 (H)Comment: | 0.00 - 0.08 | [facility] | | | | Probable myocardial | ng/mL | [facility] | | | | injury. If clinically | | [facility] | | | | indicated serial testing | | [facility] | | | | may be helpful. | | LABORATORY | | + + + + + + + + | Specimen | + + | Blood specimen | | (specimen) | + + + + + + + | Performing | Address | City/State/Zipcode | Phone Number | | Organization | | | | + + + + + | [facility] | [address] | [place] [address] | | | [facility] | | | | | LAB[facility]ATORY | | | | + + + + + Troponin I (01/07/2014 5:30 AM PDT) + + + + + + | Component | Value | Ref Range | Performed | Pathologist | | | | | At | Signature | + + + + + + | Troponin I | 1.04 (H)Comment: | 0.00 - 0.08 | [facility] | | | | Probable myocardial | ng/mL | [facility] | | | | injury. If clinically | | [facility] | | | | indicated serial testing | | [facility] | | | | may be helpful. | | LABORATORY | | + + + + + + + + | Specimen | + + | Blood specimen | | (specimen) | + + + + + + + | Performing | Address | City/State/Zipcode | Phone Number | | Organization | | | | + + + + + | [facility] | [address] | [place] [address] | | | [facility] | | | | | LABORATORY | | | | + + + + + NT-PRO BNP (01/07/2014 5:30 AM PDT) + + + + + + | Component | Value | Ref Range | Performed | Pathologist | | | | | At | Signature | + + + + + + | NT-proBNP | 5,656 (H) | <125 pg/mL | [facility] | [...] + + + + + | [facility] | [address] | [place] [address] | | | [facility] | | | | | LABORATORY | | | | + + + + + Magnesium (01/07/2014 5:30 AM PDT) + +-------+ + + + | Component | Value | Ref Range | Performed | Pathologist | | | | | At | Signature | + +-------+ + + + | Magnesium | 2.4 | 1.7 - 2.6 mg/dL | [facility] [...] + + + | [facility] | [address] | [place] [address] | | | [facility] | | | | | LABORATORY | | | | + + + + + CBC no Differential (01/07/2014 5:30 AM PDT) + + + + + + | Component | Value | Ref Range | Performed | Pathologist | | | | | At | Signature | + + + + + + | WBC | 7.3 | 4.0 - 11.0 K/uL | [facility] | | | | | | [facility] | | | | | | [facility] | [facility] | | | | | | LABORATORY | | + + + + + + | RBC | 2.59 (L) | 3.80 - 5.20 | [facility] | | | | | M/uL | [facility] | | | | | | [facility] | | | | | [facility] | | | | | | LABORATORY | | + + + + + + | Hemoglobin | 8.4 (L) | 11.6 - 15.5 | [facility] | | | | | g/dL | [facility] | | | | | | [facility] | | | | | [facility] | | | | | | LABORATORY | | + + + + + + | Hematocrit | 24.3 (L) | 35.0 - 46.0 % | [...] + + + + | MCH | 32.6 | 27.0 - 34.0 pg | [facility] | | | | | | [facility] | | | | | | [facility] | | [facility] | | | | | | LAB[facility]ATORY | | + + + + + + | MCHC | 34.6 | 32.0 - 35.5 | [facility] | | | | | g/dL | [facility] | | | | | | [facility] | | | | [facility] | | | | | | LABORATORY | | + + + + + + | RDW-CV | 14.9 | 11.0 - 15.0 % | [facility] | | | | | | [facility] | | | | | | [facility] | | [facility] | [facility] | | | | | | LABORATORY | | + + + + + + | Platelet | 400 | 150 - 400 K/uL | [facility] [...] + + | [facility] | [address] | [place] [address] | | | [facility] | | | | | LABORATORY | | | | + + + + + Basic Metabolic Panel (01/07/2014 5:30 AM PDT) + + + + + [...] | K | 4.2 | 3.5 - 5.1 | [facility] | [...] + + + + | CO2 | 31 | 21 - 32 mmol/L | [facility] | | | | | | [facility] | | | | | [facility] | [facility] | | | | | | LAB[facility]ATORY | | + + + + + + | Glucose | 88 | 60 - 114 mg/dL | [facility] | | | | | | [facility] | | | | | | [facility] | [facility] | | | | | | LAB[facility]ATORY | | + + + + + + | BUN | 13 | 8 - 21 mg/dL | [facility] | | | | | | [facility] | | | | | [facility] | [facility] | | | | | | LAB[facility]ATORY | | + + + + + + | Creatinine | 1.10 | 0.5 - 1.2 mg/dL | [facility] | | | | | | [facility] | | | | | [facility] | | | | | | LAB[facility]ATORY | | + + + + + + | Calcium | 8.6 | 8.4 - 10.5 | [facility] | [...] + + + + | Estimated | 52 (L)Comment: GFR <60: | >60 | [facility] [...] + + + + + | [facility] | [address] | [place] [address] | | | [facility] | | | | | LABORATORY | | | | + + + + + Protime INR (01/07/2014 5:30 AM PDT) + + + + + + | Component | Value | Ref Range | Performed | Pathologist | | | | | At | Signature | + + + + + + | Prothrombin | 28.3 (H) | 8.9 - 11.7 sec | [facility] | | | Time | | | [facility] | | | | | | [facility] | | | [facility] | | | | | | LABORATORY | | + + + + + + | INR | 2.7 (H)Comment: Usual | 0.9 - 1.3 | [...] + + + + + | [facility] | [address] | [place] [address] | | | [facility] | | | | | LABORATORY | | | | + + + + + Troponin I (01/06/2014 9:35 PM PDT) + + + + + + | Component | Value | Ref Range | Performed | Pathologist | | | | | At | Signature | + + + + + + | Troponin I | 1.11 (H)Comment: | 0.00 - 0.08 | [facility] | | | | Probable myocardial | ng/mL | [facility] | | | | injury. If clinically | | [facility] | | | | indicated serial testing | | HOSPITAL | | | | may be helpful. | | LABORATORY | | + + + + + + + + | Specimen | + + | Blood specimen | | (specimen) | + + + + + + + | Performing | Address | City/State/Zipcode | Phone Number | | Organization | | | | + + + + + | [facility] | [address] | [place] [address] | | | [facility] | | | | | LABORATORY | | | | + + + + + Culture, Urine (01/06/2014 8:30 PM PDT) + + + + + + | Component | Value | Ref Range | Performed | Pathologist | | | | | At | Signature | + + + + + + | Specimen | Urine | | [facility] | | | Source | | | [facility] | | | | | | [facility] | | | | [facility] | | | | | | LABORATORY | | + + + + + + | RESULT | >100,000 Organisms/mL | | [facility] | | | | Mixed population | | [facility] | | | | Periurethral Vera at | | [facility] | | | | least 3 different | | HOSPITAL | | | | organisms | | LABORATORY | | + + + + + + | Status | 01/08/2014 Final | | [facility] | | | [...] + + | [facility] | [address] | [place] [address] | | | [facility] | | | | | LABORATORY | | | | + + + + + Urinalysis with Microscopic with Culture if Indicated (01/06/2014 8:30 PM PDT) + + + + + [...] + + + + | Clarity | Turbid | | [facility] | | | | [...] + + + + | Specific | 1.010 | 1.002 - 1.030 | [facility] | | | [place] | | | [facility] | | | | | | [facility] | | [facility] | | | | | | LAB[facility]ATORY | | + + + + + + | pH, Urine | 5.5 | 5.0 - 7.5 | [facility] | | | | | | [facility] | | | | | | [facility] | | | | [facility] | | | | | | LABORATORY | | + + + + + + | Protein, | Trace (A) | Negative mg/dL | [facility] | | [...] + + + | WBC UA | 11 to 20 | 0 - 5 /hpf | [facility] | | | | | | [facility] | | | | | | [facility] | | | | [facility] | | | | | | LABORATORY | | + + + + + + | RBC UA | 0 to 5 | 0 - 5 /hpf | [facility] | | | | | | [facility] | | | | | | [facility] | | | | [facility] | | | | | | LABORATORY | | + + + + + + | Epithelial | Moderate | /hpf | [facility] | | | Cells/LPF | Comment: | | [facility] | | | | Squamous | | [facility] | | | | Transitional | | [facility]OSPITAL | | | | Renal Tubular | | LABORATORY | | + + [...] + + + | CRYSTAL UA | None seen | /hpf | [facility] | | | | | | [facility] | | | | | | [facility] | | | | [facility] | | | | | | LABORATORY | | + + + + + + | Culture | Culture Pending | | [facility] | | | Indicated [...] + + | [facility] | [address] | [place] [address] | | | [facility] | | | | | LABORATORY | | | | + + + + + Troponin I (01/06/2014 3:25 PM PDT) + + + + + + | Component | Value | Ref Range | Performed | Pathologist | | | | | At | Signature | + + + + + + | Troponin I | 1.17 (H)Comment: | 0.00 - 0.08 | [facility] | | | | Probable myocardial | ng/mL | [facility] | | | | injury. If clinically | | [facility] | | | | indicated serial testing | | HOSPITAL | | | | may be helpful. | | LABORATORY | | + + + + + + + + | Specimen | + + | Blood specimen | | (specimen) | + + + + + + + | Performing | Address | City/State/Zipcode | Phone Number | | Organization | | | | + + + + + | [facility] | [address] | [place] [address] | | | [facility] | | | | | LABORATORY | | | | + + + + + ECHO Complete (01/06/2014 11:30 AM PDT) + + | Specimen | + + | | + + + + ------+ | Narrative | Performed At | + + ------+ | | [facility] | | | LAB | | Adult Echo | | | Report Name: | | | MARKIE PINTO Study Date: 01/06/2014MRN: [id number] | | | Patient Location: [facility]DOB: 1940 | | | Age: 73 yrs Gender: | | | FemaleHeight: 65 in Weight: 166 lb | | | BSA: 1.8 [id number] For Study: post-pericardiotomy syndrome | | | INTERPRETATION SUMMARY:A complete two-dimensional transthoracic | | | echocardiogram was performed (2D,M-mode, Doppler and color flow | | | Doppler). The study was technicallyadequate. Image quality was fair to | | | good. The patient's rhythm was atrialfibrillation. Ejection Fraction | | | = 55-60%. There is mild inferolateral wall hypokinesis.There is | | | moderate concentric left ventricular hypertrophy.The left atrium is | | | moderately dilated. The right atrium is borderlinedilated.Right | | | ventricular systolic pressure is elevated at 30-40mmHg.Small | | | pericardial effusion. There are no echocardiographic indications | | | ofcardiac tamponade.Echo free space behind heart suggestive of large | | | left pleural effusion.In comparing this study to the prior study of | | | 12/24/2013, a smallpericardial effusion and a larger pleural effusion | | | are now noted. Left Ventricle:The left ventricle is normal in size. | | | There is moderate concentric leftventricular hypertrophy. Ejection | | | Fraction = 55-60%. This E/e' ratio (>15)is suggestive of elevated LV | | | filling pressures. Left ventricular diastolicdysfunction is suspected | | | associated with a non specific abnormalitypattern. There is mild | | | inferolateral wall hypokinesis. Right Ventricle:The right ventricle is | | | normal size. There is normal right ventricular wallthickness. The | | | right ventricular systolic function is normal. TAPSE wasmeasured at | | | 1.7 cm. (Normal value >1.5 cm). Atria:The left atrium is moderately | | | dilated. The Left atrial index is 37 ml/m2.(mild = 29-33; mod = 34-39; | | | severe >40). The right atrium is borderlinedilated. A dilated | | | inferior vena cava suggests increased right atrialpressure. The lack | | | of respiratory variation in the inferior vena cavadiameter is noted. | | | Mitral Valve:There is moderate to severe posterior mitral annular | | | calcification. Thereis mild mitral regurgitation. Tricuspid Valve:The | | | tricuspid valve appears normal in structure and function. There | | | istrace tricuspid regurgitation. Right ventricular systolic pressure | | | iselevated at 30-40mmHg. Aortic Valve:The aortic valve leaflets appear | | | mildly calcified. No hemodynamicallysignificant valvular aortic | | | stenosis. No aortic insufficiency is present. Pulmonic Valve:The | | | pulmonic valve is not well visualized. Great Vessels:The aortic root | | | is normal size. Pericardium/Pleural:Small pericardial effusion. There | | | are no echocardiographic indications ofcardiac tamponade. Echo free | | | space behind heart suggestive of left pleuraleffusion. MMode/2D | | | Measurements & CalculationsRVDd: 2.4 cm | | | LVIDd: 3.9 cmIVSd: 1.4 cm | | | LVIDs: 2.5 cmIVSs: 2.2 cm LVPWd: | | | 1.4 cm LVPWs: | | | 2.0 cmFS: 36.0 % EPSS: 0.41 | | | cmAo root diam: 3.0 cm LVOT diam: 2.2 cmACS: | | | 1.9 cmLA dimension: 3.7 cmEDV(MOD-sp4): 39.2 ml | | | EDV(MOD-sp2): 29.2 mlESV(MOD-sp4): 19.3 mlEF(MOD-sp4): 50.7 | | | %EF(MOD-bp): 57.3 % Doppler Measurements & CalculationsMV E max vane: | | | 147.8 cm/sec MV V2 max: 147.2 cm/sec | | | MV max P.7 mmHgMV dec | | | time: 0.17 sec Ao V2 max: 154.3 cm/sec | | | Ao max P.5 | | | mmHg Ao mean | | | P.6 mmHg | | | Ao V2 VTI: 32.5 cm | | | SANDRINE(I,D): 2.4 cm2 | | | SANDRINE(V,D): 2.2 cm2LV V1 max P.6 mmHg | | | SV(LVOT): 77.5 mlLV V1 max: 95.0 cm/secLV V1 VTI: 21.2 cmTR max | | | vane: 225.4 cm/sec RAP systole: 15.0 mmHgTR max | | | P.3 mmHgRVSP(TR): 35.3 mmHgE/E' Lateral: 18.9 | | | E/E' Medial: 20.5 Interpreting Physician: Donald Kimbrough | | | MD Marlenaelectronically signed on 01/07/2014 11:12 AMOrdering | | | Physician: PEPPER GARCÍAReferraugust Physician: MARIA ELENAOEchocardiographer: | | | Delbert [id number]: | | |MMode/2D Measurements & Calculations | | |RVDd: 2.4 cm LVIDd: 3.9 cm | | |IVSd: 1.4 cm LVIDs: 2.5 cm | | |IVSs: 2.2 cm LVPWd: 1.4 cm | | | LVPWs: 2.0 cm | | |FS: 36.0 % EPSS: 0.41 cm | | |Ao root diam: 3.0 cm LVOT diam: 2.2 cm | | |ACS: 1.9 cm | | |LA dimension: 3.7 cm | | |EDV(MOD-sp4): 39.2 ml EDV(MOD-sp2): 29.2 ml | | |ESV(MOD-sp4): 19.3 ml | | |EF(MOD-sp4): 50.7 % | | |EF(MOD-bp): 57.3 % | | | | | |Doppler Measurements & Calculations | | |MV E max vane: 147.8 cm/sec MV V2 max: 147.2 cm/sec | | | MV max P.7 mmHg | | |MV dec time: 0.17 sec Ao V2 max: 154.3 cm/sec | | | Ao max P.5 mmHg | | | Ao mean P.6 mmHg | | | Ao V2 VTI: 32.5 cm | | | SANDRINE(I,D): 2.4 cm2 | | | | | | SANDRINE(V,D): 2.2 cm2 | | |LV V1 max P.6 mmHg SV(LVOT): 77.5 ml | | |LV V1 max: 95.0 cm/sec | | |LV V1 VTI: 21.2 cm | | |TR max vane: 225.4 cm/sec RAP systole: 15.0 mmHg | | |TR max P.3 mmHg | | |RVSP(TR): 35.3 mmHg | | |E/E' Lateral: 18.9 E/E' Medial: 20.5 | | | | | |Interpreting Physician: Donald Mendiola MD | | |electronically signed on 01/07/2014 11:12 AM | | |Ordering Physician: PEPPER GARCÍA | | |Referring Physician: NEDRA | | |Accounting Officer: Delbert Soto | | |[id number]: | | | | | + + ------+ + + | Procedure Note | + + | Mauricio, Rad Results In - 01/07/2014 11:13 AM PDT | | Adult Echo | | Report | | | | Name: MARKIE PINTO Study Date: 01/06/2014 | | Patient Location: [facility] | | : 1940 Age: 73 yrs Gender: Female | | Height: 65 in Weight: 166 lb BSA: 1.8 m2 | | Reason For Study: post-pericardiotomy syndrome | | | | INTERPRETATION SUMMARY: | | A complete two-dimensional transthoracic echocardiogram was performed (2D, | | M-mode, Doppler and color flow Doppler). The study was technically | | adequate. Image quality was fair to good. The patient's rhythm was atrial | | fibrillation. | | | | Ejection Fraction = 55-60%. There is mild inferolateral wall hypokinesis. | | There is moderate concentric left ventricular hypertrophy. | | The left atrium is moderately dilated. The right atrium is borderline | | dilated. | | Right ventricular systolic pressure is elevated at 30-40mmHg. | | Small pericardial effusion. There are no echocardiographic indications of | | cardiac tamponade. | | Echo free space behind heart suggestive of large left pleural effusion. | | In comparing this study to the prior study of 12/24/2013, a small | | pericardial effusion and a larger pleural effusion are now noted. | | | | Left Ventricle: | | The left ventricle is normal in size. There is moderate concentric left | | ventricular hypertrophy. Ejection Fraction = 55-60%. This E/e' ratio (>15) | | is suggestive of elevated LV filling pressures. Left ventricular diastolic | | dysfunction is suspected associated with a non specific abnormality | | pattern. There is mild inferolateral wall hypokinesis. | | | | Right Ventricle: | | The right ventricle is normal size. There is normal right ventricular wall | | thickness. The right ventricular systolic function is normal. TAPSE was | | measured at 1.7 cm. (Normal value >1.5 cm). | | | | Atria: | | The left atrium is moderately dilated. The Left atrial index is 37 ml/m2. | | (mild = 29-33; mod = 34-39; severe >40). The right atrium is borderline | | dilated. A dilated inferior vena cava suggests increased right atrial | | pressure. The lack of respiratory variation in the inferior vena cava | | diameter is noted. | | | | Mitral Valve: | | There is moderate to severe posterior mitral annular calcification. There | | is mild mitral regurgitation. | | | | Tricuspid Valve: | | The tricuspid valve appears normal in structure and function. There is | | trace tricuspid regurgitation. Right ventricular systolic pressure is | | elevated at 30-40mmHg. | | | | Aortic Valve: | | The aortic valve leaflets appear mildly calcified. No hemodynamically | | significant valvular aortic stenosis. No aortic insufficiency is present. | | | | Pulmonic Valve: | | The pulmonic valve is not well visualized. | | | | Great Vessels: | | The aortic root is normal size. | | | | Pericardium/Pleural: | | Small pericardial effusion. There are no echocardiographic indications of | | cardiac tamponade. Echo free space behind heart suggestive of left pleural | | effusion. | | | | MMode/2D Measurements & Calculations | | RVDd: 2.4 cm LVIDd: 3.9 cm | | IVSd: 1.4 cm LVIDs: 2.5 cm | | IVSs: 2.2 cm LVPWd: 1.4 cm | | LVPWs: 2.0 cm | | FS: 36.0 % EPSS: 0.41 cm | | Ao root diam: 3.0 cm LVOT diam: 2.2 cm | | ACS: 1.9 cm | | LA dimension: 3.7 cm | | EDV(MOD-sp4): 39.2 ml EDV(MOD-sp2): 29.2 ml | | ESV(MOD-sp4): 19.3 ml | | EF(MOD-sp4): 50.7 % | | EF(MOD-bp): 57.3 % | | | | Doppler Measurements & Calculations | | MV E max vane: 147.8 cm/sec MV V2 max: 147.2 cm/sec | | MV max P.7 mmHg | | MV dec time: 0.17 sec Ao V2 max: 154.3 cm/sec | | Ao max P.5 mmHg | | Ao mean P.6 mmHg | | Ao V2 VTI: 32.5 cm | | SANDRINE(I,D): 2.4 cm2 | | | | SANDRINE(V,D): 2.2 cm2 | | LV V1 max P.6 mmHg SV(LVOT): 77.5 ml | | LV V1 max: 95.0 cm/sec | | LV V1 VTI: 21.2 cm | | TR max vane: 225.4 cm/sec RAP systole: 15.0 mmHg | | TR max P.3 mmHg | | RVSP(TR): 35.3 mmHg | | E/E' Lateral: 18.9 E/E' Medial: 20.5 | | | | Interpreting Physician: Donald Mendiola MD | | electronically signed on 01/07/2014 11:12 AM | | Ordering Physician: PEPPER GARCÍA | | Referring Physician: NEDRA | | Accounting Officer: Delbert Soto | | [phone]: | + + + +---------+ + + | Performing | Address | City/State[facility] | Phone Number | | Organization | | | | + +---------+ + + | [facility] | | | [phone] | + +---------+ + + | [facility] | | | [phone] | + +---------+ + + T4, Free (01/06/2014 8:55 AM PDT) + +-------+ + + + [...] + + + + + | [facility] | [address] | [place] [address] | | | [facility] | | | | | LABORATORY | | | | + + + + + TSH, Reflex Free T4 (01/06/2014 8:55 AM PDT) + + + + + + | Component | Value | Ref Range | Performed | Pathologist | | | | | At | Signature | + + + + + + | TSH | 7.47 (H) | 0.36 - 3.74 | [facility] [...] + + | [facility] | [address] | [place] [address] | | | [facility] | | | | | LABORATORY | | | | + + + + + Troponin I (01/06/2014 8:55 AM PDT) + + + + + + | Component | Value | Ref Range | Performed | Pathologist | | | | | At | Signature | + + + + + + | Troponin I | 1.21 (H)Comment: | 0.00 - 0.08 | [facility] | | | | Probable myocardial | ng/mL | [facility] | | | | injury. If clinically | | [facility] | | | | indicated serial testing | | HOSPITAL | | | | may be helpful. | | LABORATORY | | + + + + + + + + | Specimen | + + | Blood specimen | | (specimen) | + + + + + + + | Performing | Address | City/State/Zipcode | Phone Number | | Organization | | | | + + + + + | [facility] | [address] | [place] [address] | | | [facility] | | | | | LABORATORY | | | | + + + + + Culture, MRSA (01/06/2014 5:00 AM PDT) + + + + + + | Component | Value | Ref Range | Performed | Pathologist | | | | | At | Signature | + + + + + + | Specimen | Nares | | [facility] | | | Source | | | [facility] | | | | | | [facility] | | | | [facility] | | | | | | LAB[facility]ATORY | | + + + + + + | RESULT | No MRSA isolated | | [facility] | | | | | | [facility] | | | | | | [facility] | [facility] | | [facility] | | | | | | LAB[facility]ATORY | | + + + + + + | RESULT | Determined by using | | [facility] | | | | chromogenic agar | | [facility] | | | | designed specifically | | [facility] | | | | for MRSA screening only. | | HOSPITAL | | | | | | LABORATORY | | + + + + + + | Status | 01/07/2014 Final | | [facility] | | | | | | [facility]ORY | | + + + + + + + + | Specimen | + + | Respiratory sample | | (specimen) - Nares | + + + + + + + | Performing | Address | City/State/Zipcode | Phone Number | | Organization | | | | + + + + + | [facility] | [address] | [place] [address] | | | [facility] | | | | | LABORATORY | | | | + + + + + XR Chest AP Portable (01/06/2014 3:02 AM PDT) + + | Specimen | + + | | + + + + + | Narrative | Performed At | + + + | [facility] CLINICAL INFORMATION: Shortness of | [facility] | | breath, recent open heart surgery. COMPARISON: 12/25/2013. | | | FINDINGS: Chest tubes have been removed. Right IJ CV line has been | | | removed. There is a new large left pleural effusion causing collapse | | | of the left lower lobe and the lingula. No mediastinal shift. | | | Right lung is clear. No obvious right effusion. No visible | | | pneumothorax. Stable bones. IMPRESSION: New large left pleural | | | effusion with collapse of the left lower lobe and lingula. | | + + + + + | Procedure Note | + + | Carlos Martínez Results In - 01/06/2014 6:19 AM PDT | | | | [facility] | | | | CLINICAL INFORMATION: | | Shortness of breath, recent open heart surgery. | | | | COMPARISON: | | 12/25/2013. | | | | FINDINGS: | | Chest tubes have been removed. Right IJ CV line has been removed. | | There is a new large left pleural effusion causing collapse of the | | left lower lobe and the lingula. No mediastinal shift. Right lung | | is clear. No obvious right effusion. No visible pneumothorax. | | Stable bones. | | | | IMPRESSION: | | New large left pleural effusion with collapse of the left lower lobe | | and lingula. | + + + + + + + | Performing | Address | City/State/Zipcode | Phone Number | | Organization | | | | + + + + + | [facility] | [facility], [address] | [place] [address] | [phone] | | | [place] | | | + + + + + Phosphorus (01/06/2014 2:48 AM PDT) + +-------+ + + + | Component | Value | Ref Range | Performed | Pathologist | | | | | At | Signature | + +-------+ + + + | Phosphorus | 3.2 | 2.8 - 4.1 mg/dL | [facility] | | | | [...] + + + + + | [facility] | [address] | [place] [address] | | | [facility] | | | | | LABORATORY | | | | + + + + + Magnesium (01/06/2014 2:48 AM PDT) + +-------+ + + + | Component | Value | Ref Range | Performed | Pathologist | | | | | At | Signature | + +-------+ + + + | Magnesium | 2.3 | 1.7 - 2.6 mg/dL | [facility] | | | | | | [facility] | | | [...] + + + + + | [facility] | [address] | [place] [address] | | | [facility] | | | | | LABORATORY | | | | + + + + + NT-PRO BNP (01/06/2014 2:48 AM PDT) + + + + + + | Component | Value | Ref Range | Performed | Pathologist | | | | | At | Signature | + + + + + + | NT-proBNP | 2,348 (H) | <125 pg/mL | [facility] | | | | | [...] + | [facility] | [address] | [place] [address] | | | [facility] | | | | | LABORATORY | | | | + + + + + Protime INR (01/06/2014 2:48 AM PDT) + + + + + + | Component | Value | Ref Range | Performed | Pathologist | | | | | At | Signature | + + + + + + | Prothrombin | 24.1 (H) | 8.9 - 11.7 sec | [facility] | | | Time | | | [facility] | | | | | | [facility] | | | [facility] | | | | | | LABORATORY | | + + + + + + | INR | 2.3 (H)Comment: Usual | 0.9 - 1.3 | [...] + + | [facility] | [address] | [place] [address] | | | [facility] | | | | | LABORATORY | | | | + + + + + Troponin I (01/06/2014 2:48 AM PDT) + + + + + + | Component | Value | Ref Range | Performed | Pathologist | | | | | At | Signature | + + + + + + | Troponin I | 1.33 (H)Comment: | 0.00 - 0.08 | [facility] | | | | Probable myocardial | ng/mL | [facility] | | | | injury. If clinically | | [facility] | | | | indicated serial testing | | [facility] | | | | may be helpful. | | LABORATORY | | + + + + + + + + | Specimen | + + | Blood specimen | | (specimen) | + + + + + + + | Performing | Address | City/State/Zipcode | Phone Number | | Organization | | | | + + + + + | [facility] | [address] | [place] [address] | | | [facility] | | | | | LABORATORY | | | | + + + + + CK-MB (01/06/2014 2:48 AM PDT) + + + + + + | Component | Value | Ref Range | Performed | Pathologist | | | | | At | Signature | + + + + + + | CK TOTAL | 56 | 37 - 153 U/L | [facility] | | | | | | [facility] | | | | | | [facility] | | | | | | LAB[facility]ATORY | | + + + + + + | CK-MB | 0.6 | 0 - 7.0 ng/mL | [facility] | | | | | | [facility] | | | | | | [facility] | | | [facility] | | | | | | LAB[facility]ATORY | | + + + + + + | CK Index | 1.1Comment: Use relative | <4.0 % | [facility] [...] + + | [facility] | [address] | [place] [address] | | | [facility] | | | | | LABORATORY | | | | + + + + + Comprehensive Metabolic Panel (01/06/2014 2:48 AM PDT) + + + + + + | Component | Value | Ref Range | Performed | Pathologist | | | | | At | Signature | + + + + + + | Na | 133 (L) | 135 - 145 | [facility] [...] + + + + | Cl | 95 (L) | 98 - 109 mmol/L | [facility] | | [facility] | | | [facility] | | | | | | [facility]ATORY | | + + + + + + | CO2 | 30 | 21 - 32 mmol/L | [facility] | | | | [facility] | | [facility] | | | | | | [facility]ORY | | + + + + + + | Glucose | 104 | 60 - 114 mg/dL | [facility] | | [facility] | [facility] | | | | | | LAB[facility]ATORY | | + + + + + + | BUN | 8 | 8 - 21 mg/dL | [facility] | | | | [facility] | | | | | | [facility] | | + + + + + + | Creatinine | 1.00 | 0.5 - 1.2 mg/dL | [facility] | | | | | [facility] | | | | | [facility] | | | | | | [facility]ORY | | + + + + + + | Calcium | 8.7 | 8.4 - 10.5 | [facility] | | | | | mg/dL | [facility] | | | | | | [facility] | | | | | | LAB[facility]ATORY | | + + + + + + | Total | 7.1 | 6.3 - 8.0 g/dL | [facility] | | | Protein | | | [facility] | | | | | | [facility] | | | | | | LAB[facility]ATORY | | + + + + + + | Albumin | 3.1 (L) | 3.5 - 5.0 g/dL | [facility] [...] + + + + | Alkaline | 96 | 38 - 110 U/L | [facility] | | | Phosphatase | | | [facility] | | | | | | [facility] | | | | | | LAB[facility]ATORY | | + + + + + + | AST | 12 | 5 - 40 U/L | [facility] | | | | | | [facility] | | | | | | [facility] | | + + + + + + | ALT | 19 | 12 - 78 U/L | [facility] | | | | [facility] | | | | | | [facility] | | + + + + + + | Anion Gap | 12 | 10 - 20 mmol/L | [facility] | | | | [facility] | [facility] | | | | | | [facility]ORY | | + + + + + + | Estimated | 58 (L)Comment: GFR <60: | >60 | [facility] | | | GFR | Chronic kidney disease, | ml/min/1.73m2 | [facility] | | | | if found over [...] + | [facility] | [address] | [place] [address] | | | [facility] | | | | | LABORATORY | | | | + + + + + CBC with Differential (01/06/2014 2:48 AM PDT) + + + + + + | Component | Value | Ref Range | Performed | Pathologist | | | | | At | Signature | + + + + + + | WBC | 9.1 | 4.0 - 11.0 K/uL | [facility] | | | | | | [facility] | [facility] | | | | | | [facility] | | + + + + + + | RBC | 2.82 (L) | 3.80 - 5.20 | [facility] | | | | | M/uL | [facility] | | | | | [facility] | | | | | | [facility] | | + + + + + + | Hemoglobin | 9.1 (L) | 11.6 - 15.5 | [facility] | | | | | g/dL | [facility] | | | | | [facility] | | | | | | [facility] | | + + + + + + | Hematocrit | 26.8 (L) | 35.0 - 46.0 % | [facility] | | | | | | [facility] | | [facility] | | | | | | [facility] | | + + + + + + | MCV | 95.0 | 80.0 - 100.0 fL | [facility] [...] | 34.1 | 32.0 - 35.5 | [facility] | | | | | g/dL | [facility] | | | | | | [facility] | | | | | | [facility] | | + + + + + + | RDW-CV | 14.6 | 11.0 - 15.0 % | [facility] | | | | | | [facility] | | | | | [facility] | | | | | | [facility] | | + + + + + + | Platelet | 400 | 150 - 400 K/uL | [facility] | | | Count | | | [facility] | | [facility] | | | [facility] | | | | | | [facility] | | + + + + + + | % Segmented | 83.0 (H) | 38.0 - 80.0 % | [facility] | | | | | | [facility] | | | Neutrophils | | | [facility] | | | | | | [facility] | | + + + + + + | % Bands | 4.0 | 0.0 - 8.0 % | [facility] | | | | | | [facility] | | | | | [facility] | | | | | | [facility] | | + + + + + + | % | 8.0 (L) | 21.0 - 49.0 % | [facility] | | | Lymphocytes | | | [facility] | | | | | | [facility] | | | | | | [facility] | | + + + + + + | % Monocytes | 5.0 | 3.0 - 11.0 % | [facility] | | | | | | [facility] | | | | | [facility] | | | | | | [facility] | | + + + + + + | Absolute | 7.55 | 1.8 - 7.7 K/uL | [facility] | | | Segmented | | | [facility] | | | Neutrophils | | | [facility] | | | | | | [facility] | | + + + + + + | Absolute | 0.36 (H) | 0 - 0.2 K/uL | [facility] | | | Bands | | | [facility] | | | | | [facility] | | | | | | [facility] | | + + + + + + | Absolute | 0.73 (L) | 1.0 - 5.0 K/uL | [facility] | | | Lymphocytes | | | [facility] | | | | | [facility] | | | | | | [facility] | | + + + + + + | Absolute | 0.46 | 0 - 0.8 K/uL | [facility] | | | Monocytes | | | [facility] | | | | | [facility] | | | | | | [facility] | | + + + + + + | Differentia | Manual | | [facility] | | | l Type | | | [facility] | [facility] | | | [facility] | | | | | | [facility] | | + + + + + + | RBC | 1+ | | [facility] | | | Morphology | Comment: | | [facility] | | | | Anisocytosis | | [facility] | | | | 1+ | | [facility] | | | | Poikilocytosis | | LAB[facility]ATORY | | | | 1+ | | | | | | Polychromasia | | | | + + + + + + | Platelet | Increased | | [facility] | | | Morphology | | | [facility] | | | | | | [facility] | | | | | | [facility] | | + + + + + + | Total | 100 | | [facility] | | | Counted | | | [facility] | | | [...] + + | [facility] | [address] | [place] [address] | | | [facility] | | | | | LABORATORY | | | | + + + + + documented in this encounter Visit Diagnoses + + | Diagnosis | + + | Paroxysmal atrial fibrillation (HCC) - Primary Atrial fibrillation | + + | Atrial fibrillation (HCC) Atrial fibrillation | + + | Coronary artery disease Coronary atherosclerosis of unspecified type of vessel, | | gulkana or graft | + + | Benign essential hypertension Essential hypertension, benign | + + | Postoperative anemia due to acute blood loss Acute posthemorrhagic anemia | + + | Second degree AV block Other second degree atrioventricular block | + + documented in this encounter Admitting Diagnoses + + | Diagnosis | + + | Atrial fibrillation (HCC) Atrial fibrillation | + + documented in this encounter Administered Medications + +--------+ + +------+------+ | Medication Order | MAR | Action | Dose | Rate | Site | | | Action | Date | | | | + +--------+ + +------+------+ | ascorbic acid (VITAMIN C) | Given | 01/16/20 | 1,000 mg | | | | tablet 1,000 mg 1,000 mg, Oral, | | 14 8:25 | | | | | DAILY, First dose on 01/06/14 | | AM PDT | | | | | at 0900 | | | | | | + +--------+ + +------+------+ +-------+ + +---+---+ | Given | 01/15/20 | 1,000 mg | | | | | 14 8:03 | | | | | | AM PDT | | | | +-------+ + +---+---+ | Given | 01/14/20 | 1,000 mg | | | | | 14 8:51 | | | | | | AM PDT | | | | +-------+ + +---+---+ +---+---+ | | | +---+---+ + +-------+ +-------+---+---+ | aspirin EC tablet 81 mg 81 mg, | Given | 01/10/20 | 81 mg | | | | Oral, DAILY, First dose on Mon | | 8:59 | | | | | 01/06/14 at 0900, Do not cut or | | AM PDT | | | | | crush., | | | | | | + +-------+ +-------+---+---+ +-------+ +-------+---+---+ | Given | 01/09/20 | 81 mg | | | | | 14 10:07 | | | | | | AM PDT | | | | +-------+ +-------+---+---+ | Given | 01/08/20 | 81 mg | | | | | 14 8:15 | | | | | | AM PDT | | | | +-------+ +-------+---+---+ +---+---+ | | | +---+---+ + +-------+ +-------+---+---+ | atorvaSTATin (LIPITOR) tablet | Given | 01/16/20 | 40 mg | | | | 40 mg 40 mg, Oral, DAILY, First | | 14 8:26 | | | | | dose on 01/06/14 at 0900 | | AM PDT | | | | + +-------+ +-------+---+---+ +-------+ +-------+---+---+ | Given | 01/15/20 | 40 mg | | | | | 14 8:03 | | | | | | AM PDT | | | | +-------+ +-------+---+---+ | Given | 01/14/20 | 40 mg | | | | | 14 8:50 | | | | | | AM PDT | | | | +-------+ +-------+---+---+ +---+---+ | | | +---+---+ + +-------+ +-------+---+---+ | bisacodyl (DULCOLAX) | Given | 01/13/20 | 10 mg | | | | suppository 10 mg 10 mg, Rectal, | | 14 7:47 | | | | | DAILY PRN, Constipation, | | AM PDT | | | | | Starting 01/06/14 at 0553, If | | | | | | | all other bowel medications | | | | | | | ineffective x 24 hours or not | | | | | | | ordered., | | | | | | + +-------+ +-------+---+---+ +---+---+ | | | +---+---+ + +-------+ + +---+---+ | digoxin (LANOXIN) 250 mcg/mL | Given | 01/07/20 | 0.25 mcg | | | | injection 250 mcg 250 mcg, | | 14 6:33 | | | | | Intravenous, ONCE, Mon01/06/14 at | | AM PDT | | | | | 0630, For 1 dose | | | | | | + +-------+ + +---+---+ +---+---+ | | | +---+---+ + +-------+ +---------+---+---+ | digoxin (LANOXIN) 250 mcg/mL | Given | 01/07/20 | 250 mcg | | | | injection 250 mcg 250 mcg, | | 14 5:26 | | | | | Intravenous, ONCE, Mon01/06/14 at | | PM PDT | | | | | 1645, For 1 dose | | | | | | + +-------+ +---------+---+---+ +---+---+ | | | +---+---+ + +-------+ +---------+---+---+ | digoxin (LANOXIN) 250 mcg/mL | Given | 01/07/20 | 250 mcg | | | | injection 250 mcg 250 mcg, | | 14 11:32 | | | | | Intravenous, ONCE, Mon01/06/14 at | | PM PDT | | | | | 2245, For 1 dose | | | | | | + +-------+ +---------+---+---+ +---+---+ | | | +---+---+ + +-------+ +---------+---+---+ | digoxin (LANOXIN) tablet 250 | Given | 01/12/20 | 250 mcg | | | | mcg 250 mcg, Oral, DAILY, First | | 14 8:46 | | | | | dose on Mon01/07/14 at 0900 | | AM PDT | | | | + +-------+ +---------+---+---+ +-------+ +---------+---+---+ | Given | 01/11/20 | 250 mcg | | | | | 14 9:27 | | | | | | AM PDT | | | | +-------+ +---------+---+---+ | Given | 01/10/20 | 250 mcg | | | | | 14 8:58 | | | | | | AM PDT | | | | +-------+ +---------+---+---+ +---+---+ | | | +---+---+ + +-------+ +-------+---+---+ | famotidine (PEPCID) tablet 20 | Given | 01/16/20 | 20 mg | | | | mg 20 mg, Oral, DAILY, First | | 14 8:25 | | | | | dose on Mon01/08/14 at 1500 | | AM PDT | | | | + +-------+ +-------+---+---+ +-------+ +-------+---+---+ | Given | 01/15/20 | 20 mg | | | | | 14 8:03 | | | | | | AM PDT | | | | +-------+ +-------+---+---+ | Given | 01/14/20 | 20 mg | | | | | 14 8:51 | | | | | | AM PDT | | | | +-------+ +-------+---+---+ +---+---+ | | | +---+---+ + +-------+ +--------+---+---+ | ferrous gluconate (FERGON) | Given | 01/16/20 | 324 mg | | | | tablet 324 mg 324 mg, Oral, 2 | | 14 8:25 | | | | | TIMES DAILY WITH BREAKFAST & | | AM PDT | | | | | DINNER, First dose on 01/06/14 | | | | | | | at 0800 | | | | | | + +-------+ +--------+---+---+ +-------+ +--------+---+---+ | Given | 01/15/20 | 324 mg | | | | | 14 4:50 | | | | | | PM PDT | | | | +-------+ +--------+---+---+ | Given | 01/15/20 | 324 mg | | | | | 14 8:03 | | | | | | AM PDT | | | | +-------+ +--------+---+---+ +---+---+ | | | +---+---+ + +-------+ +------+---+---+ | folic acid tablet 1 mg 1 mg, | Given | 01/16/20 | 1 mg | | | | Oral, DAILY, First dose on Mon | | 14 8:25 | | | | | 01/06/14 at 0900 | | AM PDT | | | | + +-------+ +------+---+---+ +-------+ +------+---+---+ | Given | 01/15/20 | 1 mg | | | | | 14 8:03 | | | | | | AM PDT | | | | +-------+ +------+---+---+ | Given | 01/14/20 | 1 mg | | | | | 14 8:50 | | | | | | AM PDT | | | | +-------+ +------+---+---+ +---+---+ | | | +---+---+ + +---------+ +-------+---+---+ | furosemide (LASIX) injection 40 | New Bag | 01/07/20 | 40 mg | | | | mg 40 mg, Intravenous, ONCE, | | 14 8:30 | | | | | 01/06/14 at 0800, For 1 dose | | AM PDT | | | | + +---------+ +-------+---+---+ +---+---+ | | | +---+---+ + +---------+ +-------+---+---+ | furosemide (LASIX) injection 40 | New Bag | 01/11/20 | 40 mg | | | | mg 40 mg, Intravenous, DAILY, | | 14 7:38 | | | | | First dose on Mon01/07/14 at 0700 | | AM PDT | | | | + +---------+ +-------+---+---+ +---------+ +-------+---+---+ | New Bag | 01/10/20 | 40 mg | | | | | 14 6:28 | | | | | | AM PDT | | | | +---------+ +-------+---+---+ | New Bag | 01/09/20 | 40 mg | | | | | 14 6:59 | | | | | | AM PDT | | | | +---------+ +-------+---+---+ +---+---+ | | | +---+---+ + +---------+ +-------+---+---+ | furosemide (LASIX) injection 40 | New Bag | 01/08/20 | 40 mg | | | | mg 40 mg, Intravenous, ONCE, | | 14 5:17 | | | | | 01/07/14 at 1600, For 1 dose, | | PM PDT | | | | | Give after first unit of blood | | | | | | | has been transfused., | | | | | | + +---------+ +-------+---+---+ +---+---+ | | | +---+---+ + +-------+ +-------+---+---+ | furosemide (LASIX) tablet 40 mg | Given | 01/16/20 | 40 mg | | | | 40 mg, Oral, DAILY, First dose | | 14 8:25 | | | | | on 01/11/14 at 1330 | | AM PDT | | | | + +-------+ +-------+---+---+ +-------+ +-------+---+---+ | Given | 01/15/20 | 40 mg | | | | | 14 8:03 | | | | | | AM PDT | | | | +-------+ +-------+---+---+ | Given | 01/14/20 | 40 mg | | | | | 14 8:50 | | | | | | AM PDT | | | | +-------+ +-------+---+---+ +---+---+ | | | +---+---+ + +-------+ + +---+---+ | HYDROcodone-acetaminophen | Given | 01/10/20 | 1 tablet | | | | (NORCO) 5-325 mg per tablet 1 | | 14 8:59 | | | | | tablet 1 tablet, Oral, EVERY 4 | | AM PDT | | | | | HOURS PRN, Pain, Starting Mon | | | | | | | 01/06/14 at 0548 | | | | | | + +-------+ + +---+---+ +-------+ + +---+---+ | Given | 01/08/20 | 1 tablet | | | | | 14 8:24 | | | | | | AM PDT | | | | +-------+ + +---+---+ +---+---+ | | | +---+---+ + +-------+ +---------+---+---+ | HYDROcodone-acetaminophen | Given | 01/16/20 | 2 | | | | (NORCO) 5-325 mg per tablet 1-2 | | 14 12:34 | tablets | | | | tablet 1-2 tablet, Oral, EVERY 4 | | PM PDT | | | | | HOURS PRN, Pain, Starting Mon | | | | | | | 01/06/14 at 1317 | | | | | | + +-------+ +---------+---+---+ +-------+ + +---+---+ | Given | 01/16/20 | 1 tablet | | | | | 14 5:06 | | | | | | AM PDT | | | | +-------+ + +---+---+ | Given | 01/15/20 | 1 tablet | | | | | 14 6:18 | | | | | | AM PDT | | | | +-------+ + +---+---+ +---+---+ | | | +---+---+ + +-------+ +--------+---+---+ | ibuprofen (ADVIL,MOTRIN) tablet | Given | 01/12/20 | 600 mg | | | | 600 mg 600 mg, Oral, 3 TIMES | | 14 5:25 | | | | | DAILY WITH MEALS, First dose on | | PM PDT | | | | | 01/07/14 at 0800, Give with | | | | | | | food., | | | | | | + +-------+ +--------+---+---+ +-------+ +--------+---+---+ | Given | 01/12/20 | 600 mg | | | | | 14 11:59 | | | | | | AM PDT | | | | +-------+ +--------+---+---+ | Given | 01/12/20 | 600 mg | | | | | 14 8:45 | | | | | | AM PDT | | | | +-------+ +--------+---+---+ +---+---+ | | | +---+---+ + +-------+ +--------+---+---+ | ibuprofen (ADVIL,MOTRIN) tablet | Given | 01/13/20 | 600 mg | | | | 600 mg 600 mg, Oral, 2 TIMES | | 14 5:04 | | | | | DAILY BEFORE MEALS, First dose | | PM PDT | | | | | (after last modification) on Sun | | | | | | | 01/12/14 at 1630, Give with food., | | | | | | | | | | | | | + +-------+ +--------+---+---+ +---+---+ | | | +---+---+ + +-------+ +--------+---+---+ | ibuprofen (ADVIL,MOTRIN) tablet | Given | 01/16/20 | 600 mg | | | | 600 mg 600 mg, Oral, 2 TIMES | | 14 8:25 | | | | | DAILY WITH BREAKFAST & DINNER, | | AM PDT | | | | | First dose (after last | | | | | | | modification) on 01/13/14 at | | | | | | | 0800, Give with food., | | | | | | + +-------+ +--------+---+---+ +-------+ +--------+---+---+ | Given | 01/15/20 | 600 mg | | | | | 14 4:50 | | | | | | PM PDT | | | | +-------+ +--------+---+---+ | Given | 01/15/20 | 600 mg | | | | | 14 8:03 | | | | | | AM PDT | | | | +-------+ +--------+---+---+ +---+---+ | | | +---+---+ + +-------+ +-------+---+---+ | ketorolac (TORADOL) injection | Given | 01/07/20 | 15 mg | | | | 15 mg 15 mg, Intravenous, ONCE, | | 14 5:26 | | | | | Mon01/06/14 at 1645, For 1 dose | | PM PDT | | | | + +-------+ +-------+---+---+ +---+---+ | | | +---+---+ + +-------+ +-------+---+---+ | ketorolac (TORADOL) injection | Given | 01/07/20 | 15 mg | | | | 15 mg 15 mg, Intravenous, ONCE, | | 14 11:32 | | | | | Mon01/06/14 at 2245, For 1 dose | | PM PDT | | | | + +-------+ +-------+---+---+ +---+---+ | | | +---+---+ + +-------+ +--------+---+---+ | lactulose liquid 30 mL 30 mL, | Given | 01/09/20 | 30 mLs | | | | Oral, 3 TIMES DAILY PRN, | | 14 8:14 | | | | | Constipation, Starting Wed | | PM PDT | | | | | 01/08/14 at 1448 | | | | | | + +-------+ +--------+---+---+ +-------+ +--------+---+---+ | Given | 01/09/20 | 30 mLs | | | | | 14 5:53 | | | | | | PM PDT | | | | +-------+ +--------+---+---+ +---+---+ | | | +---+---+ + +-------+ +--------+---+---+ | levothyroxine (SYNTHROID, | Given | 01/16/20 | 75 mcg | | | | LEVOTHROID) tablet 75 mcg 75 | | 14 6:49 | | | | | mcg, Oral, DAILY BEFORE | | AM PDT | | | | | BREAKFAST, First dose on Mon | | | | | | | 01/07/14 at 0730, Give before | | | | | | | breakfast., | | | | | | + +-------+ +--------+---+---+ +-------+ +--------+---+---+ | Given | 01/15/20 | 75 mcg | | | | | 14 7:28 | | | | | | AM PDT | | | | +-------+ +--------+---+---+ | Given | 01/14/20 | 75 mcg | | | | | 14 6:33 | | | | | | AM PDT | | | | +-------+ +--------+---+---+ +---+---+ | | | +---+---+ + +-------+ +--------+---+---+ | magnesium (as oxide) tablet 250 | Given | 01/16/20 | 250 mg | | | | mg 250 mg, Oral, 2 TIMES DAILY, | | 14 8:25 | | | | | First dose on Mon01/06/14 at | | AM PDT | | | | | 0900 | | | | | | + +-------+ +--------+---+---+ +-------+ +--------+---+---+ | Given | 01/15/20 | 250 mg | | | | | 14 8:39 | | | | | | PM PDT | | | | +-------+ +--------+---+---+ | Given | 01/15/20 | 250 mg | | | | | 14 8:03 | | | | | | AM PDT | | | | +-------+ +--------+---+---+ +---+---+ | | | +---+---+ + +-------+ +--------+---+---+ | magnesium hydroxide (MILK OF | Given | 01/13/20 | 30 mLs | | | | MAGNESIA) 400 mg/5 mL suspension | | 14 8:58 | | | | | 30 mL 30 mL, Oral, NIGHTLY PRN, | | AM PDT | | | | | Constipation, Starting Mon | | | | | | | 01/06/14 at 0553, If docusate, | | | | | | | senna, and polyethylene glycol | | | | | | | ineffective x 24 hours or not | | | | | | | ordered, | | | | | | + +-------+ +--------+---+---+ +-------+ +--------+---+---+ | Given | 01/08/20 | 30 mLs | | | | | 14 5:16 | | | | | | PM PDT | | | | +-------+ +--------+---+---+ +---+---+ | | | +---+---+ + +-------+ +---------+---+---+ | metoprolol succinate | Given | 01/14/20 | 12.5 mg | | | | (TOPROL-XL) ER tablet 12.5 mg | | 14 8:50 | | | | | 12.5 mg, Oral, 2 TIMES DAILY, | | AM PDT | | | | | First dose on Mon01/10/14 at | | | | | | | 1030, Tablet may be cut where | | | | | | | scored but do not crush., | | | | | | + +-------+ +---------+---+---+ +-------+ +---------+---+---+ | Given | 01/13/20 | 12.5 mg | | | | | 14 9:13 | | | | | | PM PDT | | | | +-------+ +---------+---+---+ | Given | 01/13/20 | 12.5 mg | | | | | 14 8:49 | | | | | | AM PDT | | | | +-------+ +---------+---+---+ +---+---+ | | | +---+---+ + +-------+ +-------+---+---+ | metoprolol succinate | Given | 01/10/20 | 25 mg | | | | (TOPROL-XL) ER tablet 25 mg 25 | | 14 8:58 | | | | | mg, Oral, 2 TIMES DAILY, First | | AM PDT | | | | | dose on Mon01/06/14 at 2100, | | | | | | | Tablet may be cut where scored | | | | | | | but do not crush., | | | | | | + +-------+ +-------+---+---+ +-------+ +-------+---+---+ | Given | 01/09/20 | 25 mg | | | | | 14 8:14 | | | | | | PM PDT | | | | +-------+ +-------+---+---+ | Given | 01/09/20 | 25 mg | | | | | 14 10:08 | | | | | | AM PDT | | | | +-------+ +-------+---+---+ +---+---+ | | | +---+---+ + +-------+ +--------+---+---+ | metoprolol tartrate (LOPRESSOR) | Given | 01/07/20 | 2.5 mg | | | | 1 mg/mL injection Starting Mon | | 14 3:20 | | | | | 01/06/14 at 0314, For 1 dose, | | AM PDT | | | | | HORACIO AMAYA: andrade wilcox, | | | | | | + +-------+ +--------+---+---+ +---+---+ | | | +---+---+ + +-------+ +--------+---+---+ | metoprolol tartrate (LOPRESSOR) | Given | 01/07/20 | 2.5 mg | | | | injection 2.5 mg 2.5 mg, | | 14 2:46 | | | | | Intravenous, ONCE, 01/06/14 at | | AM PDT | | | | | 0245, For 1 dose | | | | | | + +-------+ +--------+---+---+ +---+---+ | | | +---+---+ + +-------+ +------+---+---+ | metoprolol tartrate (LOPRESSOR) | Given | 01/07/20 | 5 mg | | | | injection 5 mg 5 mg, | | 14 7:30 | | | | | Intravenous, ONCE, Mon01/06/14 at | | AM PDT | | | | | 0530, For 1 dose | | | | | | + +-------+ +------+---+---+ +---+---+ | | | +---+---+ + +-------+ +------+---+---+ | metoprolol tartrate (LOPRESSOR) | Given | 01/16/20 | 5 mg | | | | injection 5 mg 5 mg, | | 14 5:24 | | | | | Intravenous, EVERY 4 HOURS PRN, | | AM PDT | | | | | resting heart rate greater than | | | | | | | 100, Starting Mon01/13/14 at 0924 | | | | | | + +-------+ +------+---+---+ +-------+ +------+---+---+ | Given | 01/14/20 | 5 mg | | | | | 14 9:43 | | | | | | AM PDT | | | | +-------+ +------+---+---+ +---+---+ | | | +---+---+ + +-------+ +-------+---+---+ | metoprolol tartrate (LOPRESSOR) | Given | 01/16/20 | 25 mg | | | | tablet 25 mg 25 mg, Oral, 2 | | 14 9:30 | | | | | TIMES DAILY, First dose on Mon | | AM PDT | | | | | 01/13/14 at 0945 | | | | | | + +-------+ +-------+---+---+ +-------+ +-------+---+---+ | Given | 01/15/20 | 25 mg | | | | | 14 8:39 | | | | | | PM PDT | | | | +-------+ +-------+---+---+ | Given | 01/15/20 | 25 mg | | | | | 14 8:03 | | | | | | AM PDT | | | | +-------+ +-------+---+---+ +---+---+ | | | +---+---+ + +-------+ +-------+---+---+ | metoprolol tartrate (LOPRESSOR) | Given | 01/07/20 | 50 mg | | | | tablet 50 mg 50 mg, Oral, ONCE, | | 14 6:34 | | | | | 01/06/14 at 0630, For 1 dose | | AM PDT | | | | + +-------+ +-------+---+---+ +---+---+ | | | +---+---+ + +-------+ +------+---+---+ | morphine injection 2-6 mg 2-6 | Given | 01/09/20 | 2 mg | | | | mg, Intravenous, EVERY 2 HOURS | | 14 4:47 | | | | | PRN, Pain, Starting 01/06/14 | | AM PDT | | | | | at 0552, Slow IV push, not faster | | | | | | | than 2 mg/minute. If ineffective | | | | | | | or not tolerated, use | | | | | | | hydromorphone IV if ordered., | | | | | | + +-------+ +------+---+---+ +---+---+ | | | +---+---+ + +-------+ +------+---+---+ | ondansetron (ZOFRAN ODT) | Given | 01/13/20 | 4 mg | | | | disintegrating tablet 4 mg 4 mg, | | 14 12:11 | | | | | Oral, EVERY 6 HOURS PRN, Nausea, | | AM PDT | | | | | Vomiting, Starting 01/11/14 | | | | | | | at 1241 | | | | | | + +-------+ +------+---+---+ +---+---+ | | | +---+---+ + +-------+ +------+---+---+ | ondansetron (ZOFRAN) injection | Given | 01/09/20 | 4 mg | | | | 4 mg 4 mg, Intravenous, EVERY 6 | | 14 7:19 | | | | | HOURS PRN, Nausea, Vomiting, | | PM PDT | | | | | Starting 01/06/14 at 0553, | | | | | | | First line agent, | | | | | | + +-------+ +------+---+---+ +-------+ +------+---+---+ | Given | 01/08/20 | 4 mg | | | | | 14 8:14 | | | | | | PM PDT | | | | +-------+ +------+---+---+ | Given | 01/08/20 | 4 mg | | | | | 14 12:00 | | | | | | PM PDT | | | | +-------+ +------+---+---+ +---+---+ | | | +---+---+ + +-------+ +-------+---+---+ | pantoprazole (PROTONIX) DR | Given | 01/07/20 | 40 mg | | | | tablet 40 mg 40 mg, Oral, DAILY | | 14 6:34 | | | | | BEFORE BREAKFAST, First dose on | | AM PDT | | | | | 01/06/14 at 0730, Do not cut | | | | | | | or crush., | | | | | | + +-------+ +-------+---+---+ +---+---+ | | | +---+---+ + +-------+ +-------+---+---+ | pantoprazole (PROTONIX) DR | Given | 01/09/20 | 40 mg | | | | tablet 40 mg 40 mg, Oral, 2 | | 14 6:36 | | | | | TIMES DAILY BEFORE MEALS, First | | AM PDT | | | | | dose (after last modification) on | | | | | | | 01/06/14 at 1645, Do not cut | | | | | | | or crush., | | | | | | + +-------+ +-------+---+---+ +-------+ +-------+---+---+ | Given | 01/08/20 | 40 mg | | | | | 14 4:47 | | | | | | PM PDT | | | | +-------+ +-------+---+---+ | Given | 01/08/20 | 40 mg | | | | | 14 7:38 | | | | | | AM PDT | | | | +-------+ +-------+---+---+ +---+---+ | | | +---+---+ + +-------+ +------+---+---+ | polyethylene glycol (MIRALAX) | Given | 01/15/20 | 17 g | | | | powder 17 g 17 g, Oral, DAILY | | 14 8:02 | | | | | PRN, Constipation, Starting Mon | | AM PDT | | | | | 01/06/14 at 0553, If docusate and | | | | | | | senna ineffective or not | | | | | | | ordered., | | | | | | + +-------+ +------+---+---+ +-------+ +------+---+---+ | Given | 01/13/20 | 17 g | | | | | 14 12:05 | | | | | | PM PDT | | | | +-------+ +------+---+---+ | Given | 01/13/20 | 17 g | | | | | 14 8:58 | | | | | | AM PDT | | | | +-------+ +------+---+---+ +---+---+ | | | +---+---+ + +-------+ +--------+---+---+ | potassium chloride SA | Given | 01/16/20 | 10 mEq | | | | (KRC CXO) CR tablet 10 mEq | | 14 8:25 | | | | | 10 mEq, Oral, 2 TIMES DAILY, | | AM PDT | | | | | First dose on 01/06/14 at | | | | | | | 0900, May take with food to | | | | | | | decrease GI upset., | | | | | | + +-------+ +--------+---+---+ +-------+ +--------+---+---+ | Given | 01/15/20 | 10 mEq | | | | | 14 8:39 | | | | | | PM PDT | | | | +-------+ +--------+---+---+ | Given | 01/15/20 | 10 mEq | | | | | 14 8:03 | | | | | | AM PDT | | | | +-------+ +--------+---+---+ +---+---+ | | | +---+---+ + +-------+ +--------+---+---+ | senna (SENOKOT) tablet 8.6 mg | Given | 01/16/20 | 8.6 mg | | | | 8.6 mg, Oral, 2 TIMES DAILY, | | 14 8:25 | | | | | First dose on Mon01/06/14 at 0900 | | AM PDT | | | | + +-------+ +--------+---+---+ +-------+ +--------+---+---+ | Given | 01/15/20 | 8.6 mg | | | | | 14 8:39 | | | | | | PM PDT | | | | +-------+ +--------+---+---+ | Given | 01/15/20 | 8.6 mg | | | | | 14 8:03 | | | | | | AM PDT | | | | +-------+ +--------+---+---+ +---+---+ | | | +---+---+ + +-------+ +------+---+---+ | warfarin (COUMADIN) tablet 3 mg | Given | 01/13/20 | 3 mg | | | | 3 mg, Oral, Once - Warfarin, | | 14 5:04 | | | | | First dose on 01/12/14 at | | PM PDT | | | | | 1800, For 1 dose, Drug education | | | | | | | required., | | | | | | + +-------+ +------+---+---+ +---+---+ | | | +---+---+ + +-------+ +------+---+---+ | warfarin (COUMADIN) tablet 4 mg | Given | 01/11/20 | 4 mg | | | | 4 mg, Oral, Once - Warfarin, | | 14 5:23 | | | | | First dose on Mon01/10/14 at | | PM PDT | | | | | 1800, For 1 dose, Drug education | | | | | | | required., | | | | | | + +-------+ +------+---+---+ +---+---+ | | | +---+---+ + +-------+ +------+---+---+ | warfarin (COUMADIN) tablet 4 mg | Given | 01/12/20 | 4 mg | | | | 4 mg, Oral, Once - Warfarin, | | 14 5:25 | | | | | First dose on Mon01/11/14 at | | PM PDT | | | | | 1800, For 1 dose, Drug education | | | | | | | required., | | | | | | + +-------+ +------+---+---+ +---+---+ | | | +---+---+ + +-------+ +------+---+---+ | warfarin (COUMADIN) tablet 4 mg | Given | 01/14/20 | 4 mg | | | | 4 mg, Oral, Once - Warfarin, | | 14 5:39 | | | | | First dose (after last reorder) | | PM PDT | | | | | on Mon01/13/14 at 1800, For 1 | | | | | | | dose, Drug education required., | | | | | | + +-------+ +------+---+---+ +---+---+ | | | +---+---+ + +-------+ +------+---+---+ | warfarin (COUMADIN) tablet 4 mg | Given | 01/15/20 | 4 mg | | | | 4 mg, Oral, Once - Warfarin, | | 14 5:38 | | | | | First dose on Mon01/14/14 at 1800, | | PM PDT | | | | | For 1 dose, Drug education | | | | | | | required., | | | | | | + +-------+ +------+---+---+ +---+---+ | | | +---+---+ + +-------+ +------+---+---+ | warfarin (COUMADIN) tablet 5 mg | Given | 01/08/20 | 5 mg | | | | 5 mg, Oral, Daily - Warfarin, | | 14 5:16 | | | | | First dose on Mon01/06/14 at | | PM PDT | | | | | 1800, Drug education required., | | | | | | + +-------+ +------+---+---+ +-------+ +------+---+---+ | Given | 01/07/20 | 5 mg | | | | | 14 5:27 | | | | | | PM PDT | | | | +-------+ +------+---+---+ +---+---+ | | | +---+---+ + +-------+ +------+---+---+ | warfarin (COUMADIN) tablet 5 mg | Given | 01/10/20 | 5 mg | | | | 5 mg, Oral, Once - Warfarin, | | 14 5:22 | | | | | First dose on [place] 01/09/14 at | | PM PDT | | | | | 1800, For 1 dose, Drug education | | | | | | | required., | | | | | | + +-------+ +------+---+---+ +---+---+ | | | +---+---+ + +-------+ +--------+---+---+ | zinc sulfate capsule 220 mg | Given | 01/16/20 | 220 mg | | | | 220 mg, Oral, 2 TIMES DAILY, | | 14 8:25 | | | | | First dose on 01/06/14 at 0900 | | AM PDT | | | | + +-------+ +--------+---+---+ +-------+ +--------+---+---+ | Given | 01/15/20 | 220 mg | | | | | 14 8:39 | | | | | | PM PDT | | | | +-------+ +--------+---+---+ | Given | 01/15/20 | 220 mg | | | | | 14 8:03 | | | | | | AM PDT | | | | +-------+ +--------+---+---+ +---+---+ | | | +---+---+ documented in this encounter
--- OUTSIDE RECORDS SUMMARY | ~2019-07-30 | XMS | Encounter Summary ---
Demographics + + + | Address | [address] | | | [place] [address] | + + + | Home Phone | | + + + | Preferred Language | Unknown | + + + | Marital Status | | + + + | Adventism Affiliation | 1001 | + + + | Race | Unknown | + + + | Ethnic Group | Unknown | + + + Author + + + | Author | [facility] | | | and [place] | + + + | Organization | [facility] | | | and [...] Team Providers + +------+ + | Care Brim Flexer Name | Role | Phone | + [...] | | Atherosclero | [address] | | | | | tic heart | [address] | [place], [place] | | | | | disease of | Ave. | [address] | | | | | circle | [place], [place] | Phone: | | | | | coronary | [address] | [phone] | | | | | artery | Phone: | Fax: | | | | | without | [phone] | [phone] | | | | | angina | Fax: | | | | | | pectoris | [phone] | | | | | | Coronary [...] | | | | | | | [address] | | | +--------+ + + + + + Encounter Details +--------+ + + + + | Date | Type | Department | Care Team | Description | +--------+ + + + + | 12/05/ | Hospital | [facility] | Doug García MD | Coronary artery | | 2017 | Encounter | [facility] | [address] | disease due to | | | | [address] | [place] [address] | calcified coronary | | | | [place], [place] | [phone] | lesion; Bilateral | | | | [address] | | carotid artery | | | | [phone] | | disease (HCC) | +--------+ + [...] Performed At | + + + | [facility] | | [address] [place] [address] PATIENT | RUDI - | | NAME: [...] | >70cm/sec, ICA:CCA >3.2 Criteria from [facility] Proc. | | | [id number] | | | CONCLUSION: Mild stenosis (less [...] | | | 12/05/2016 16:28 Bob Bartlett Echo/Thread Checker 12/05/2016 | | | 12:46 | | |ICA:CCA ratio : WNL | | | | | | | | |Category % stenosis, | | |Normal/mild, PSV <130 cm/sec, ICA:CCA <1.6 | | |Moderate 50-69% , PSV 130-229 cm/sec, EDV <70cm/sec, ICA:CCA 1.6-3.1 | | |Severe >70%, PSV >230 cm/sec, EDV >70cm/sec, ICA:CCA >3.2 | | |Criteria from [facility] Proc. [id number] | | | | | |CONCLUSION: | [...] 16:28 | | | | | |Cristiane Charles/Thread Checker 12/05/2016 12:46 | | | | | | | | | | | | | | | | | | | | + + + + + + + + | Performing | Address | City/State/Zipcode | Phone Number | | Organization | | | | + + + + + | [place] [facility] [place] | [facility], [address] | [place] [address] | [phone] | | - [facility] | [...]
--- OUTSIDE RECORDS SUMMARY | ~2019-07-30 | XMS | Encounter Summary ---
Demographics + + + | Address | [address] | | | [place] [address] | + + + | Home Phone | | + + + | Preferred Language | Unknown | + + + | Marital Status | | + + + | Uatsdin Affiliation | 1001 | + + + | Race | Unknown | + + + | Ethnic Group | Unknown | + + + Author + + + | Author | [facility] | | | and [place] | + + + | Organization | [facility] | | | and [...] Team Providers + +------+ + | Care International Student Counselor Name | Role | Phone | + [...] | | | | | | | yocha dehe | | | | | | | coronary | | | | | | | artery | | | | | | | Coronary | | | | | | | atherosclero | | | | | | | sis of | | | | | | | yocha dehe | | | | | | | coronary | | | | | | | artery | | | | | | | Procedures | | | | | | | MI CABG, | | | | | | [...] | | | | [place] | [phone] | | | | | [address] | | | | | | [phone] | | | +--------+ + + + [...] LEFT | | | | | SAPHENOUS VEIN,VOGLE | | | | | (N/A Chest) [...] | Placement Time: 1332; Mask | Wade Kelly MD | Tonia Farah, SPORTS BETTING MANAGER | | | Ventilation: EZ; Airway Grade: [...]
--- OUTSIDE RECORDS SUMMARY | ~2019-07-30 | XMS | Encounter Summary ---
Demographics + + + | Address | [address] | | | [place] [address] | + + + | Home Phone | | + + + | Preferred Language | Unknown | + + + | Marital Status | | + + + | Rastafari Affiliation | 1001 | + + + | Race | Unknown | + + + | Ethnic Group | Unknown | + + + Author + + + | Author | [facility] | | | and [place] | + + + | Organization | [facility] | | | [...] Providers + +------+ + | Care Marine Technician Name | Role | Phone | + +------+ + | Doug García MD | PCP | | + +------+ + Encounter Details +--------+ + + + + | Date | Type | Department | Care Team | Description | +--------+ + + + + | 01/06/ | Hospital | [place] | Tao Knight, | | | 2013 | Encounter | [facility] | [address] | | | | | [address] [place], [place] | | | | | [address] | [address] | | | | | [place], [place] | | | | | | [address] | | | | | | [phone] | | | +--------+ + + + [...] | 0 | 04/06/20 | | | Xbyishb-Rcwlhi-MD | | | | 11 | 4 [...]
--- OUTSIDE RECORDS SUMMARY | ~2019-07-30 | XMS | Encounter Summary ---
Demographics + + + | Address | [address] | | | [place] [address] | + + + | Home Phone [...] Team Providers + +------+ + | Care Urology Teacher Name | Role | Phone | [...] + + | 03/18/ | Telephone | [place] | Grzegorz Rios, | Appointment | | 2013 | | [facility] | [place] [address] | | | | | [address] | [address] | | | | | [address] [place], [place] | [place] [address] | | | | | [address] | [phone] | | | | | [phone] | | | +--------+ + + + [...]
--- OUTSIDE RECORDS SUMMARY | ~2019-07-30 | XMS | Encounter Summary ---
Demographics + + + | Address | [address] | | | [place] [address] | + + + | Home Phone [...] Team Providers + +------+ + | Care Registered Pharmacy Technician Name | Role | Phone | [...] 2013 | | [facility] [place] | [address] | | | | | [address] | [address] [place], | | | | | [facility] [address] [place] | [place] [address] | | | | | [place] | [phone] | | | | | [address] | | | | | | [phone] | | | +--------+--------+ + + + [...]
--- OUTSIDE RECORDS SUMMARY | ~2019-07-30 | XMS | Clinical Summary ---
Demographics + + + | Address | [address] | | | [place] [address] | + + + | Home Phone | | + + + | Preferred Language | Unknown | + + + | Marital Status | | + + + | Latter Day Affiliation | 1001 | + + + | Race | Unknown | + + + | Ethnic Group | Unknown | + + + Author + + + | Author | [facility] (Historical as of | | | 03-02-19) | + + + | Organization | [facility] (Historical as of | | | 03-02-19) | + + + | Address | Unknown | + + + | Phone | Unavailable | + + + Support + + +---------+ + | Name | Relationship | Address | Phone | + + +---------+ + | Leonides Chan | ECON | Unknown | | + + +---------+ + | Cielo Eng | ECON | Unknown | | + + +---------+ + Care Team Providers + +------+ + | Care Assistant Property Manager Name | Role | Phone | + +------+ + | Doug García MD | PP | | + +------+ + Allergies + + + + + + | Active Allergy | Reactions | Severity | Noted | Comments | | | | | Date | | + + + + + + | Diltiazem | Other (See Comments) | Medium | 09/20 | | | | | | 18 | | + + + + + + | Iodine | Anaphylaxis | High | 03/28/20 | | | | | | 18 | | + + + + + + | Latex | Anaphylaxis | High | 03/28/20 | | | | | | 18 | | + + + + + + | Lidocaine | Other (See Comments) | Medium | 20 | | | | | | 18 | | + + + + + + | Red Dye | Anaphylaxis | High | 03/28/20 | | | | | | 18 | | + + + + + + | Tomato | Headache | Low | 09/12/20 | | | | | | 18 | | + + + + + + Current Medications + + +--------+---------+------+------+-------+ | Prescription | Sig. | Disp. | Refills | Star | End | Statu | | | | | | t | Date | s | | | | | | Date | | | + + +--------+---------+------+------+-------+ | Ascorbic Acid | Take 1,000 mg by | | | | | Activ | | (VITAMIN C) 1000 MG | mouth. | | | | | e | | tablet | | | | | | | + + +--------+---------+------+------+-------+ | Linda Quintanilla, | Take by mouth. | | | | | Activ | | 455 MG CAPS | | | | | | e | + + +--------+---------+------+------+-------+ | Coenzyme Q10 10 MG | Take by mouth as | | | | | Activ | | capsule | needed. | | | | | e | + + +--------+---------+------+------+-------+ | cyanocobalamin | Take 50 mcg by | | | | | Activ | | (VITAMIN B-12) 50 | mouth. | | | | | e | | MCG tablet | | | | | | | + + +--------+---------+------+------+-------+ | MAGNESIUM PO | Take 400 mg by | | | 09/2 | | Activ | | | mouth. | | | 1/20 | | e | | | | | | 11 | | | + + +--------+---------+------+------+-------+ | nitroGLYCERIN | Place 0.4 mg under | | | 09/2 | | Activ | | (NITROSTAT) 0.4 MG | the tongue as | | | 0/20 | | e | | SL tablet | needed. | | | 18 | | | + + +--------+---------+------+------+-------+ | cholecalciferol | Take by mouth. | | | | | Activ | | (VITAMIN D-3) 1000 | | | | | | e | | units tablet | | | | | | | + + +--------+---------+------+------+-------+ | Cobalamine | Take 50 mcg by | | | | | Activ | | Combinations (B-12) | mouth. | | | | | e | | 100-5000 MCG SUBL | | | | | | | + + +--------+---------+------+------+-------+ | Ascorbic Acid | Take 1,000 mg by | | | | | Activ | | (VITAMIN C/CHRISTINE HIPS | mouth. | | | | | e | | CR PO) | | | | | | | + + +--------+---------+------+------+-------+ | FREE TEXT | LSO [id number] | 1 | 0 | 03/1 | | Activ | | PRESCRIPTION, PRINT | | Device | | 3/20 | | e | | ONLY,Indications: | | | | 19 | | | | Degenerative lumbar | | | | | | | | spinal stenosis, | | | | | | | | Weakness of left | | | | | | | | lower extremity, | | | | | | | | Lumbar | | | | | | | | radiculopathy, | | | | | | | | Herniation of lumbar | | | | | | | | intervertebral disc | | | | | | | | without myelopathy | | | | | | | + + +--------+---------+------+------+-------+ Active Problems + + + | Problem | Noted Date | + + + | Status post lumbar discectomy | 10/30/2018 | + + + | 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 | 08/30/2018 | + + + | Degenerative lumbar spinal stenosis | 08/30/2018 | + + + | Weakness of left lower extremity | 08/30/2018 | + + + | Lumbar radiculopathy | 08/30/2018 | + + + Family History + + +------+ + | Medical History | Relation | Name | Comments | + + +------+ + | Malig hypertherm | Neg Hx | | | + + +------+ + Social History + +-------+ +--------+------+ | [...] + +---------+ + | Alcohol Use | Drinks/We | oz/Week | Comments | | | ek | | | + + +---------+ + | Yes | 1 | 0.6 | very occ | | | Glasses | | | | | of wine | | | + + +---------+ + + + + | Sex Assigned at | Date Recorded | | | | + + + | Not on file | | + + + Last Filed Vital Signs + + + + | Vital Sign | Reading | Time Taken | + + + + | Blood Pressure | 176/86 | 01/22/2019 9:35 AM PDT | + + + + | Pulse | 73 | 01/22/2019 9:35 AM PDT | + + + + | Temperature | 36.9 C (98.4 F) | 10/21/2018 5:08 PM PDT | + + + + | Respiratory Rate | 16 | 10/21/2018 5:08 PM PDT | + + + + | Oxygen Saturation | 99% | 10/21/2018 5:08 PM PDT | + + + + | Inhaled Oxygen | - | - | | Concentration | | | + + + + | Weight | 68.9 kg (152 lb) | 01/22/2019 9:35 AM PDT | + + + + | Height | 165.1 cm (5' 5") | 01/22/2019 9:35 AM PDT | + + + + | Body Mass Index | 25.29 | 01/22/2019 9:35 AM PDT | + + + + Plan of Treatment + + + + + | Health Maintenance | Due Date | Last Done | Comments | + + + + + | Vaccine: | | | | | Dtap/Tdap/Td (1 - | 0 | | | | Tdap) | | | | + + + + + | Vaccine: Zoster (1 | | | | | of 2) | 1 | | | + + + + + | DEXA SCAN SCREENING | | | | | | 6 | | | + + + + + | Vaccine: | | | | | Pneumococcal 65+ | 6 | | | | Low/Medium Risk (1 | | | | | of 2 - PCV13) | | | | + + + + + | Statin Therapy | | | | | (optimal intensity) | 9 | | | + + + + + | Vaccine: Influenza | | | | | (#1) | 9 | | | + + + + + Results Not on filefrom Last 3 Months Insurance + +--------+ +------+-------+ + | Payer | Benefi | Subscriber | Type | Phone | Address | | | t Plan | ID | | | | | | / | | | | | | | Group | | | | | + +--------+ +------+-------+ + | MEDICARE | MEDICA | [id number] | | | [address] | | | RE | | | | [place] [address] | | | IP-OP | | | | | + +--------+ +------+-------+ + | [facility] | [place] | [id number] | | | | | | | | | | | | | HEALTH | | | | | | | CARE - | | | | | | | AARP | | | | | + +--------+ +------+-------+ + + +--------+ +--------+ + + | Guarantor Name | Accoun | Relation to | Date | Phone | Billing Address | | | t Type | Patient | of | | | | | | | | | | + +--------+ +--------+ + + | MARKIE CHAN | Person | Self [birth year] Home: | [address] [place] [facility] [place] | | | al/Fam | | [phone] | [phone] [place] [address] | | | migdalia | | | 1958 | | + +--------+ +--------+ + +
--- OUTSIDE RECORDS SUMMARY | ~2019-07-30 | XMS | Encounter Summary ---
Demographics + + + | Address | [address] | | | [place] [address] | + + + | Home Phone [...] Team Providers + +------+ + | Care Varitypist Name | Role | Phone | + [...] [address] [place], | | | | | [place] [address] | [place] [address] | | | | | coronary | [address] | Phone: | | | | | artery | [place] | [phone] | | | | | Procedures | [address] | Fax: | | | | | HI CABG, | Phone: | [phone] | | | | | ARTERIAL, | [phone] | | | | | | THREE | Fax: | | | | | | | [phone] | | +--------+--------+ + + + + [...] | | [facility] | [place] [address] | myocardial infarct | | | | [address] | [phone] | w/o hx of CABG | | | | [place], [place] | | (Primary Dx) | | | | [address] | | | | | | [phone] | | | +--------+---------+ + + + [...] - Primary | | Coronary atherosclerosis of [place] coronary artery | + + documented in this encounter"
--- OUTSIDE RECORDS SUMMARY | ~2019-07-30 | XMS | Encounter Summary ---
Demographics + + + | Address | [address] | | | [place] [address] | + + + | Home Phone [...] Team Providers + +------+ + | Care Instruction Librarian Name | Role | Phone | + [...] Refill | | 2015 | | [facility] | [address] | | | | | Internal Medicine | [place] [address] | | | | | [address] [facility] | [phone] | | | | | [place], [place] | | | | | | [address] | | | | | | [phone] | | | +--------+--------+ + + + [...]
--- OUTSIDE RECORDS SUMMARY | ~2019-07-30 | XMS | Encounter Summary ---
Demographics + + + | Address | [address] | | | [place] [address] | + + + | Home Phone [...] Team Providers + +------+ + | Care Cycle Manager Name | Role | Phone | [...] | | artery | [address] | [place] | | | | | stenosis, | [place] | [address] | | | | | bilateral | [address] | [address] | | | | | Procedures | [place], [place] | [address], | | | | | A-carotid | [address] | [place] | | | | | stenosis | Phone: | [address] | | | | | | [phone] | Phone: | | | | | | Fax: | [phone] | | | | | | [phone] | Fax: | | | | | | | [phone] | +--------+ + + + + + [...] Rehabilitatio | paroxysmal | [address] | | | | n | positional | [place] | [place], [place] | | | | | vertigo | Ave. | [address] | | | | | Procedures | [place], [place] | Phone: | | | | | [facility] | [address] | [phone] | | | | | | Phone: | Fax: | | | | | | [phone] | [phone] | | | | | | Fax: | | | | | | | [phone] | | +--------+ + + + + [...] sleep | | 2013 | Visit | [facility] | [address] | apnea (Primary Dx); | | | | Internal Medicine | [place] [address] | Chronic diastolic | | | | [address] | [phone] | CHF (congestive | | | | [place], [place] | | heart failure), NYHA | | | | [address] | | class 2 (HCC); | | | | [phone] | | Paroxysmal atrial | | | [...] nausea, vomiting and vertigo, you may use eqkl-elf-[id number] motion sickness pills, s uch as meclizine [...] face Difficulty with speech or vision Seizure [id number] Werner Pereyra, [address] [place] [address], [place] [address]. All rights reserve d. This information is not intended as a substitute for professional medical care. Always fo llow your healthcare professional's instructions. documented in this encounter Progress Notes Doug García MD - 03/13/2014 9:35 AM PDTFormatting of this note might be different from t he original. [facility] CLINIC NOTE Patient Name: Chaya Chan 73 y.o. Date of : 1940 MR Number: [id number] Date of Visit: 03/13/2014 Patient Active Problem [...] Electronically signed by: Doug García 03/13/2014 9:35 [facility] documented in this encou nter Plan [...] pasqual or graft | + + | Restless legs syndrome (RLS) | + + | Hyperlipidemia Other and unspecified hyperlipidemia | + + | Hypothyroidism Unspecified hypothyroidism | + + | Benign paroxysmal positional vertigo | + + | Carotid artery stenosis, bilateral | + + documented in this encounter
--- OUTSIDE RECORDS SUMMARY | ~2019-07-30 | XMS | Encounter Summary ---
Demographics + + + | Address | [address] | | | [place] [address] | + + + | Home Phone | | + + + | Preferred Language | Unknown | + + + | Marital Status | | + + + | Lutheran Affiliation | [id number] | + + + | Race | Unknown | + + + | Ethnic Group | Unknown | + + + Author + + + | Author | [facility] | | | and [place] | + + + | Organization | [facility] | | | and [...] Team Providers + +------+ + | Care Contracts Manager Name | Role | Phone | [...] | | | | | | | lovelock | | | | | | | coronary | | | | | | | artery | | | | | | | Coronary | | | | | | | atherosclero | | | | | | | sis of | | | | | | | lovelock | | | | | | | coronary | | | | | | | artery | | | | | | | Procedures | | | | | | | MD CABG, | | | | | | [...] | | | | [employer] | [place] [address] | | | | | [address] | [phone] | | | | | [place] | | | | | | [phone] | Lo Brandon Herrera [place] | | | | | [phone] | [address] | | | | | | [place] [address] | | | | | | [phone] | | | | | | | [...] | 0 | 04/06/20 | | | [id number] | | | | 11 | 4 [...]
--- OUTSIDE RECORDS SUMMARY | ~2019-07-30 | XMS | Encounter Summary ---
Demographics + + + | Address | [address] | | | [place] [address] | + + + | Home Phone [...] Team Providers + +------+ + | Care Grocery Store Bagger Name | Role | Phone | + [...] | | | | ([facility]) | | | +--------+--------+ + + + + Encounter Details +--------+ + + + + | Date | Type | Department | Care Team | Description | +--------+ + + + + | 01/06/ | Hospital | [facility] | Tao Knight, | Atrial fibrillation | | 2013 - | Encounter | [facility] | [address] | ([facility]) (Primary Dx) | | | | MEDICAL [address] [place], [place] | | | 01/15/ | | [address] | [address] | | | 2013 | | [place], [place] | | | | | | [address] | Kathy Allen, | | | | | [phone] | MD [address] | | | | | | Ave. [place], [place] | | | | | | [address] | | | | | | | | | | | | Pepper García MD | | | | | | [address] | | | | | | [place] [address] | | | | | | [phone] | | | | | | | | | | | | Gage Castañeda MD | | | | | | [address] | | | | | | [place] [address] | | | | | | [phone] | | | | | | | | | | | | Steven Patel MD | | | | | | [address] | | | | | | [place] [address] | | | | | | [phone] | | | | | | | | | | | | Maury Elizabeth MD | | | | | | [address] | | | | | | [place] | | | | | | [address] | | | | | | | [...] 01/15/2014 5:11 PM PDTTransferred [facility] treat paroxysmal a fib. Report called to Miguelina Mcclellan. Pt is comfortab le and in nsr at time of discharge. Tele dcd. lMaury campa MD - 01/15/2014 12:04 PM [facility] Pt. Name/Age/: Markie Pinto 73 y.o. 1940 Date of Admission: 01/06/2014 Date of Discharge: 01/15/2014 Admitting Physician: Kathy Allen MD Primary Care Provider: Pepper García MD Discharging Physician: Maury Elizabeth MD, [facility], [facility] Principle Discharge Diagnoses: Paroxysmal atrial fibrillation, rhythm also complicated with significant pauses, SVT and M obitz type II heart block Secondary Discharge Diagnoses: Coronary artery disease Benign essential hypertension Postoperative anemia due to acute blood loss Consultants: [facility] by phone consultations on multiple occations [...] the hospitalist team at our hospital and [facility] concerning management of her s ituation. [...] has agreed to transfer the patient to [facility] for fu rther treatment. Code Status: Full Code Disposition: Patient is being transferred to [facility] Discharge Condition: fair Follow Up Appointments: Will be followed by Dr. Ivon Shelton at [facility] Studies With Pending Results: None Greater than 30 minutes were spent on discharge and coordination of post-hospital care. Electronically signed by: Maury Elizabeth MD, [facility], [facility] 01/15/2014 12:[address] [facility] Steven calderon MD - 8:[address] [facility] HOSPITALIST DISCHARGE SUMMARY Pt. Name/Age/: Markie Pinto 73 y.o. 1940 Date of Admission: 01/06/2014 Date of Discharge: 01/13/2014 Primary Care Provider: Pepper García Discharging Physician: Steven Patel MD [facility] Consultants: Phone consultation cardiology 2 separate phone [...] Coronary artery disease Hyperlipidemia Hypertension Thyroid disease [place] (myocardial infarction) (HCC) CHF (congestive heart failure) ([facility]) Discharge Medications: Markie Pinto Home Medication Instructions DAVINA:[id number] Printed on:01/13/14 0843 Medication Information magnesium (GNP [...] member of the patient's cardiology group in [place]. I discontinued digoxin at that time. The [...] Gerardo MD [address] [facility] [address] Schedule an appointment as soon as possible for a visit Pepper García MD [address] [facility] [address] Schedule an appointment as soon as possible for a visit His patient should have regular prothrombin time checks. We recommended a prothrombin time checked in 48 hours after discharge. I would recommend weekly prothrombin time checks unti l she is off of NSAIDs and stable. Like the patient to follow closely with her egg grader Dr. Erum Armstrong. We also scheduled an appointment with Dr. Pepper García. Greater than 30 minutes was spent on discharge and coordination of post-hospital care. documented in this en counter Discharge Instructions AttachmentsThe following attachments cannot be sent through Care Everywhere.DISCHARGE INSTR UCTIONS FOR HEART FAILURE ([facility])documented in this encounter Medications at Time of [...] Chavarria MD - 01/14/2014 10:[address] [facility] PROGRESS NOTE Pt. Name/Age/: Markie Pinto 73 y.o. 1940 Med. Record Number: [id number] Date of admission: 01/06/2014 Hospital Day: 9 [...] home or to an adult foster home. [facility] Cata Snow Pharm D - 01/14/2014 10:07 [...] note might be different from the original. [facility] PROGRESS NOTE Pt. Name/Age/: Markie iPnto 73 y.o. 1940 Med. Record Number: [id number] Date of admission: 01/06/2014 Hospital Day: 8 [...] Coronary artery disease Hyperlipidemia Hypertension Thyroid disease [place] (myocardial infarction) (HCC) CHF (congestive heart failure) (HCC) PLAN: As long as the patient continues to improve her rate is controlled on her current danita sures it's likely that the patient will be discharged tomorrow morning. [facility] Valeri Box RN - 6:48 PM PDTTelemetry shows atrial fib since this AM. See tracings. Vent rate gen erally 85-100 Lindsay Reynaga Chaplain - 01/13/2014 10:49 AM PDTPt is cheerful and talkative, walking in the halls. She hopes to go home soon. She has no specific pc needs at this time. She feels well support ed by her sabianist which is the [facility] in [place]. Cata Snow, CeferinoD - 01/13/2014 8:10 AM [...] obtain a phone consultation with cardiology today. Wind Tunnel Technician recommended that I stopped the digoxin (which [...] Vo MD - 01/12/2014 8:42 AM PDT [facility] PROGRESS NOTE Pt. Name/Age/: Markie Pinto 73 y.o. 1940 Med. Record Number: [id number] Date of admission: 01/06/2014 Hospital Day: 7 [...] Coronary artery disease Hyperlipidemia Hypertension Thyroid disease [place] (myocardial infarction) (HCC) CHF (congestive heart failure) (HCC) PLAN: With a second-degree AV block, I discontinued the patient's digoxin. I have ordered a BT PERSONAL BANKING OFFICER magnesium level repeat electrolytes and of course will leave the patient on telemetr y. I will obtain a phone consultation with the patient's cardiology group. That call is pe nding at this time. Consider ultrasound-guided thoracentesis per radiology is available. H is orders reviewed. [facility] Maya Loya RN - 0 01/11/2014 3:49 PM PDTTelemetry monitor show sinus rhythm with borderline first degree AVB a t times with IVCD. No ectopy noted. evyn Knight Chaplain - 01/11/2014 2:01 PM PDTPt is alert and oriented, re sting. She is feeling better,enjoying watching the rain. She says she has good support from family and her sabianist. She asked for prayer. No other pc [...] Pinto 73 y.o. 1940 Med. Record Number: [id number] Date of admission: 01/06/2014 Hospital Day: 6 SUBJECTIVE: I am assuming care of this patient. Patient underwent coronary artery bypass grafting on J 2013. His head post cardiotomy syndrome. She has had paroxysmal atrial fibrillatio n and has been anticoagulated because of that. Patient has had post surgical anemia and mil d renal insufficiency. The patient's egg grader is evidently been contacted by previous ospital [...] failure), NYHA class 2 ([facility]) *Post pericardiotomy syndrome Hyponatremia Hypothyroidism Obstructive sleep apnea Past Medical History Diagnosis Date Coronary artery disease Hyperlipidemia Hypertension Thyroid disease [place] (myocardial infarction) (HCC) CHF (congestive heart failure) ([facility]) PLAN: I am going to hang [...] decrease the ibuprofen to twice a day. [facility] Ernie Gonzalez RN - 01/11/2014 6:04 AM [...] Aguilar MD - 01/10/2014 9:[address] [facility] Hospitalist Progress Note Markie Pinto : 1940 [...] no acute events otherwise overnight. [facility] - 01/09/2014 3:39 PM PDTFo rmatting of [...] today and follow INR. Steven Potter 01/09/2014 15:37Electronically signed by [facility] at 01/09/2014 3:39 PM Marlen Marti Chaplain - 01/09/2014 1:16 PM PDTMet spouse, brother and at bedside. Pt. Member of [facility] [employer] and s iron worker has visited. Pt. Reports feeling better and [...] - 01/09/2014 7:37 AM PDT PROGRESS NOTE [facility] Pt. Name/Age/: Markie Pinto 73 y.o. 1940 Med. Record Number: [id number] Date of admission: 01/06/2014 Room: [address] [place] [address] Subjective She reports her back pain, which [...] Pinto 73 y.o. 1940 Med. Record Number: [id number] Date of admission: 01/06/2014 Room: [address] [place] [address] Subjective She reports that she had terrible back pain 10 out of 10 while she was at [place] and since starting the ibuprofen for pain [...] sitting on recliner. She expressed appreciation for s iron worker's visit yesterday. Welcomes ch aplains' visits. Remains hopeful for good recovery. PC support provided & will remain avai lable as needed. [facility] - 01/08/2014 10:06 AM PDTFormatting of this [...] and follow INR. Steven Potter 01/08/2014 9:53 Electronically signed by [facility] at 01/08/2014 10:07 AM Pepper Molina MD - 11:[address] [facility] HOSPITALIST PROGRESS NOTE Pt. Name/Age/: Markie Pinto 73 y.o. 1940 Med. Record Number: [id number] Date of admission: 01/06/2014 Date of service: [...] sleep apnea. I discussed her case with [place] egg grader, Dr. Lobo Katz, yesterday (on-call for Dr. [...] 01/07/14 0835 01/07/14 0530 TROPONINI 1.17* 1.04* [facility] Uyen Smallwood Chaplain - 01/07/2014 9:49 AM PDTReturned to pt to inform her that the s iron worker from her sabianist would be coming this afternoon but pt [...] She has good family support, & welcomes sabianist support. I called her EMERALD burden, & the s iron worker (Brian) will be coming after noon. Contact number is [phone]. She also appreciated piedad. PC support will [...] + + | [facility]A [facility] | [address] | [place] [address] | | | [facility] | | | | | [...] | [address] [facility] | [place] [address] | | | [facility] | | | | | [...] + + + + + | MON[facility]A [facility] | [address] | [place] [address] | | | [facility] | | | | | [...] + + + + + | MON[facility]A [facility] | [address] | [place] [address] | | | [facility] | | | | | [...] | + + + + + | [facility] | [address] | [place] [address] | | | [facility] | | | | | LABORATORY [...] + + | [facility] | [address] | [place] [address] | | | [facility] | | | | | [...] | 1,132 (H) | <125 pg/mL | [place] | | | | | | [facility] | | | | | | [facility] | | | | | | [facility]PITAL [...] | [address] [facility] | [place] [address] | | | [facility] | | | | | [...] | MONIKA | | | level | [facility], | | [facility] | | | | [place] [address] | | [facility] | | | | [...] [facility]A [facility] | [address] [facility] [address] | [place] [address] | | | [facility] | | | | | [...] + + + + + | [facility] | [address] | [place] [address] | | | [facility] | | | | | [...] + + + + + | [facility] | [address] | [place] [address] | | | [facility] | | | | | [...] + + | [facility] | [facility], [address] | [place] [address] | [phone] | | | Shyann | | | [...] + + | MON[facility]A [facility] | [address] | [place] [address] | | | [facility] | | | | | [...] + + | MON[facility]A [facility] | [address] | [place] [address] | | | [facility] | | | | | [...] + + | MON[facility]A [facility] | [address] | [place] [address] | | | [facility] | | [...] + + | MON[facility]A [facility] | [address] | [place] [address] | | | [facility] | | | | | [...] + + + + + | [facility] | [address] | [place] [address] | | | [facility] | | | | | [...] | | | | | mmol/L | [facility] | | | | | | [...] + + | MON[facility] | [address] | [place] [address] | | | [facility] | | | | | [...] | + + + + + | [facility] | [address] | [place] [address] | | | [facility] | | | | | [...] 0.94 (H)Comment: | 0.00 - 0.08 | [facility] | | | | Probable myocardial | ng/mL | [facility] | | | | injury. If clinically [...] + + + + + | [facility] | [address] | [place] [address] | | | [facility] | | | | [facility] | [...] + + + + + | [facility] | [address] | [place] [address] | | | [facility] | | | | | [...] | | Probable myocardial | ng/mL | [facility] | | | | injury. If clinically | | [facility] | | | | indicated serial testing [...] + + | MON[facility]A [facility] | [address] | [place] [address] | | | [facility] | | | | | [...] + + | [facility] | [address] | [place] [address] | | | [facility] | | | | | [...] + + | [facility] | [address] | [place] [address] | | | [facility] | | | | | [...] + + | MON[facility] | [address] | [place] [address] | | | [facility] | | | | | [...] + + | MON[facility]A SHEI[facility] | [address] | [place] [address] | | | [facility] | | | | | LABORATORY [...] | | HOSPITAL | | | | [facility] | | LABORATORY | | | | [address], [address], | | | | | | [place] [address] | | | | + + + + + + + + | Specimen | + + | Urine specimen | | (specimen) - Urine, | | Unspecified Source | + + + + + + + | Performing | Address | City/State/Zipcode | Phone Number | | Organization | | | | + + + + + | [facility] | [address] | [place] [address] | | | [facility] | | | | | [...] + + | MONIKA SHEIKH | [address] | [place] [address] | | | [facility] | | | | | [...] + + + + + | [facility] | [address] | [place] [address] | | | [facility] | | | | | [...] + + | MONIKA SHEIKH | [address] | [place] [address] | | | [facility] | | | | | [...] + + | MON[facility]A SHEI[facility] | [address] | [place] [address] | | | [facility] | | | | | [...] + + | [facility] | [address] | [place] [address] | | | [facility] | | [...] + + | MONIKA SHEI[facility] | [address] | [place] [address] | | | [facility] | | | | | [...] + + + + + | [facility] | [address] | [place] [address] | | | [facility] | | | | | [...] + + | MONIKA SHEI[facility] | [address] | [place] [address] | | | [facility] | | [...] | [address] [facility] | [place] [address] | | | [facility] | | | | | [...] + + | MONIKA SHEIKH | [address] | [place] [address] | | | [facility] | | | | | [...] + + | MON[facility]A SHEI[facility] | [address] | [place] [address] | | | [facility] | | | | | [...] + + | [facility] | [facility], [address] | [place] [address] | [phone] | | | Shyann | | | [...] + + | MON[facility]A [facility] | [address] | [place] [address] | | | [facility] | | | | | [...] + + | MON[facility] | [address] | [place] [address] | | | [facility] | | | | | [...] | + + + + + | [facility] | [address] | [place] [address] | | | [facility] | | | | | LABORATORY | | | | + + + + + Magnesium (01/08/2014 4:00 AM PDT) + +-------+ + + + | Component | Value | Ref Range | Performed | Pathologist | | | | | At | Signature | + +-------+ + + + | Magnesium | 2.5 | 1.7 - 2.6 mg/dL | [facility] | | | | | | [facility] | | | | | | [facility] | | | | | | [facility] [...] + + + + + | MON[facility] | [address] | [place] [address] | | | [facility] | | | | | [...] + + | MONIKA SHEIKH | [address] | [place] [address] | | | [facility] | | [...] + + + + + | [facility] | [address] | [place] [address] | | | [facility] | | | | | [...] + + + | BLOOD BANK | [id number] | | [facility] | | | NUMBER [...] + + + | UNIT ID | [id number] | | [facility] | | | | [...] + + | Unit Status | TRANSFUSED [id number] | | [facility] | | | [...] + + + | UNIT ID | [id number] | | [facility] | | | | [...] + + | Unit Status | TRANSFUSED [id number] | | [facility] | | | [...] + + | [facility] | [address] | [place] [address] | | | [facility] | | | | | [...] [facility] | [address] | [place] [address] | | | [facility] | | | | | LABORATORY | [...] | + + + + + | [facility] | [address] | [place] [address] | | | [facility] | | | | | [...] + + + + + | [facility] | [address] | [place] [address] | | | [facility] | | | | | [...] + | [facility] | [address] | [place] [address] | | | [facility] | | | | | LABORATORY [...] [facility] | | | | | | [facility] | | | | | | [facility] | | | | | | [facility] | | | | | | LABORATORY | | + + + + + + | RBC | 2.59 (L) | 3.80 - 5.20 | [facility] | | | | | M/uL | [facility] | | | | | | [...] + + | MON[facility]A SHEI[facility] | [address] | [place] [address] | | | [facility] | | | | | [...] + + + + + | [facility] | [address] | [place] [address] | | | [facility] | | | | | [...] + + + + + | [facility] | [address] | [place] [address] | | | [facility] | | | | | [...] | | Probable myocardial | ng/mL | [facility] | | | | injury. If clinically [...] + + | MON[facility]A SHEIKH | [address] | [place] [address] | | | [facility] | | | | | [...] + | MON[facility] SHEIKH | [address] | [place] [address] | | | [facility] | | | | | [...] - 1.030 | [facility] | | | [place] | | | [facility] | | | [...] + + | MONIKA SHEIKH | [address] | [place] [address] | | | [facility] | | [...] + + | MON[facility]A SHEIKH | [address] | [place] [address] | | | [facility] | | | | | [...] | | MARKIE PINTO Study Date: 01/06/2014MRN: [id number] | | | Patient Location: [facility] 204DOB: 1940 | | | Age: 73 yrs Gender: | | | FemaleHeight: 65 in Weight: 166 lb | | | BSA: 1.8 x6Urhldj For Study: post-pericardiotomy syndrome | | | [...] | | |Referring Physician: NEDRA | | |Door To Door Selling Distributor: Delbert Soto | | |[id number]: | | | | | + + ------+ + + | Procedure Note | + + | Mauricio, Rad Results In - 01/07/2014 11:13 AM PDT | | Adult Echo | | Report | | | | Name: MARKIE PINTO Study Date: 01/06/2014 | | Patient Location: [facility] 204 | | : 1940 Age: [...] | | Referring Physician: NEDRA | | Door To Door Selling Distributor: Delbert Soto | | [id number]: | + + + +---------+ + + | Performing | Address | City/State/[facility] | Phone Number | | Organization | | | | + +---------+ + + | MISCELLANEOUS LAB | | | [phone] | + +---------+ + + | MISCELANIOUS LAB | | | [phone] | + +---------+ + + T4, Free [...] + + + + + | MON[facility]A [facility] | [address] | [place] [address] | | | [facility] | | | | | [...] + + | MONIKA SHEIKH | [address] | [place] [address] | | | [facility] | | [...] + + | [facility] | [address] | [place] [address] | | | [facility] | | [...] + + | MONIKA SHEIKH | [address] | [place] [address] | | | [facility] | | | | | [...] + + | [facility] | [facility], [address] | [place] [address] | [phone] | | | Shyann | | | [...] + + + + + | [facility] | [address] | [place] [address] | | | [facility] | | | | | LABORATORY | | | | + + + + + Magnesium (01/06/2014 2:48 AM PDT) + +-------+ + + + | Component | Value | Ref Range | Performed | Pathologist | | | | | At | Signature | + +-------+ + + + | Magnesium | 2.3 | 1.7 - 2.6 mg/dL | [facility] | | | | | | [facility] | | | | | | [...] + + + + + | [facility] | [address] | [place] [address] | | | [facility] | | | | | [...] MON[facility]A SHEI[facility] | [address] | [place] [address] | | | [facility] | | [...] + + | MON[facility]A SHEI[facility] | [address] | [place] [address] | | | [facility] | | | | | [...] + + | MON[facility]A SHEIKH | [address] | [place] [address] | | | [facility] | | | | | [...] + + | MON[facility]A SHEIKH | [address] | [place] [address] | | | [facility] | | | | | [...] MON[facility]A SHEI[facility] | [address] | [place] [address] | | | [facility] | | | | | [...] + + | MON[facility]A SHEIKH | [address] | [place] [address] | | | [facility] | | | | | [...] nez perce or graft | + + | Benign [...] 10 mEq | | | | ([facility]) CR tablet 10 mEq | | 14 [...]
--- OUTSIDE RECORDS SUMMARY | ~2019-07-30 | XMS | Encounter Summary ---
Demographics + + + | Address | [address] | | | [place] [address] | + + + | Home Phone [...] Team Providers + +------+ + | Care Corporate Travel Consultant Name | Role | Phone | + +------+ + | Doug García MD | PCP | | + +------+ + Reason for Visit Physical Medicine (Routine) +--------+ + + + + + | Status | Reason | Specialty | Diagnoses / | Referred By | Referred To | | | | | Procedures | Contact | Contact | +--------+ + + + + + | Closed | Specialty | Physical | Diagnoses | Ricky, | [facility] Therapy | | | Services | Therapy / | Benign | MD Doug | [address] | | | Required | Rehabilitatio | paroxysmal | [address] | | | | n | positional | [address] | [place], [place] | | | | | vertigo, | Ave. | [address] | | | | | unspecified | [place], [place] | Phone: | | | | | laterality | [address] | [phone] | | | | | | Phone: | Fax: | | | | | | [phone] | [phone] | | | | | | Fax: | | | | | | | [phone] | | +--------+ + + + + + Encounter Details +--------+ + + + + | Date | Type | Department | Care Team | Description | +--------+ + + + + | 09/08/ | Hospital | [facility] | Doug García MD | Benign paroxysmal | | 2018 | Encounter | [facility] | [address] | positional vertigo, | | | | PHYSICAL THERAPY | [place] [address] | unspecified | | | | [address] | [phone] | laterality | | | | [place], [place] | | | | | | [address] | Angel Geiger, PT | | | | | [phone] | [address] | | | | | | [place], [place] | | | | | | [address] | | | | | | [phone] | | | | | | | [...] documented as of this encounter Progress Notes Angel Geiger, PT - 09/08/2017 1:36 PM PSTFormatting of this note might be different fro m the original. [facility] PHYSICAL [facility]ERAP[facility] [address] [facility] [address] Physical Therapy Daily Treatment Note Date: 09/08/2017 Patient Information Patient Name: Chaya Chan Date of : 1940 Age: 76 y.o. Encounter Diagnoses Code Name Primary? H81.10 Benign paroxysmal positional vertigo, unspecified laterality Date of Onset: Referring Provider: Doug García MD Rehab Precautions Flowsheet Row [facility] PT EVALUATION from 09/01/2017 in [facility] THERAP[facility] Rehab Precautions Precautions Comments Significant PMH please review Rehab Learning Style Flowsheet Row [facility] PT EVALUATION from 09/01/2017 in [facility] THERAPY Learning Style Patient's Optimum Learning Style reading Objective Today's Treatment Patient Name: Chaya Arizais/: 1940/ Start Time: 1300 Stop time: 1330 Duration: 30 minutes Timed Treatment Codes: 30 minutes # of PT Visits to Date: 3 Visit Summary: Patient tolerates exercises, reports some nausea today, vitals taken and are WNL except for elevated BP of 162/84. Patient demonstrates posterior loss of balance with h ead turns on rockerboard. Next Visit Information: Patient would prefer a [...] Hand written instructions given PT Interventions: Intervention #2, Intervention #3, Intervention #4 PT INTERVENTION 1: X1 and X2 exercises on blue foam PT INTERVENTION 2: occular tracking on blue foam PT INTERVENTION 3: head turns up/down and side to side on rocker board Fwd/back or side/marii e Assessment Rehabilitation potential: Patient demonstrates good potential to achieve established goals to address the documented impairments by participating in skilled physical therapy services. OP PT Goals Goal 1: Patient to be independent in a HEP in 3-4 weeks Goal 1 Status: Patient reports being consistent with HEP Goal 2: Patient to be able to report full 100% confidence in walking in crowded shopping ar ea and being bumped Goal 2 Status: In progress Electronically signed by: Angel Geiger PT, 09/08/2017 13:36 Patient Name: Chaya Howe Dustin/: 1940/ documented in this en counter Plan of Treatment Not on filedocumented as of this encounter Visit Diagnoses + + | Diagnosis | + + | Benign paroxysmal positional vertigo, unspecified laterality | + + documented in this encounter"
--- OUTSIDE RECORDS SUMMARY | ~2019-07-30 | XMS | Encounter Summary ---
Demographics + + + | Address | [address] | | | [place] [address] | + + + | Home Phone [...] Team Providers + +------+ + | Care Peoplesoft Taleo Manager Name | Role | Phone | + +------+ + | Doug García MD | PCP | | + +------+ + Encounter Details +--------+ + + + + | Date | Type | Department | Care Team | Description | +--------+ + + + + | 10/01/ | Hospital | [facility] | Conversion | | | 2019 | Encounter | [facility]RAY | Transaction, | | | | | [address] | Provider Unknown | | | | | [place], [place] | | | | | | [address] | (Fax) | | | | | [phone] | | | +--------+ + + + [...]
--- OUTSIDE RECORDS SUMMARY | ~2019-07-30 | XMS | Encounter Summary ---
Demographics + + + | Address | [address] | | | [place] [address] | + + + | Home Phone | | + + + | Preferred Language | Unknown | + + + | Marital Status | | + + + | Tenriism Affiliation | 1001 | + + + | Race | Unknown | + + + | Ethnic Group | Unknown | + + + Author + + + | Author | [facility] | | | and [place] | + + + | Organization | [facility] | | | [...] Team Providers + +------+ + | Care Line Clearance Foreman Name | Role | Phone | + [...] | Radiology | Diagnoses | Nedra, | [facility] Echo | | | Services | | Coronary | MD Pepper | [address] | | | Required | | artery | [address] | | | | | disease due | [address] | [place], [place] | | | | | to calcified | Ave. | [address] | | | | | coronary | [place], [place] | Phone: | | | | | lesion | [address] | [phone] | | | | | Chronic | Phone: | Fax: | | | | | diastolic | [phone] | [phone] | | | | | CHF | Fax: | | | | | | (congestive | [phone] | | | | | | heart [...] | Radiology | Diagnoses | Nedra, | [facility] | | | Services | | Coronary | MD Pepper | [address] | | | Required | | artery | [address] | | | | | disease due | [address] | [place], [place] | | | | | to calcified | Ave. | [address] | | | | | coronary | [place], [place] | Phone: | | | | | lesion | [address] | [phone] | | | | | Chronic | Phone: | Fax: | | | | | diastolic | [phone] | [phone] | | | | | CHF | Fax: | | | | | | (congestive | [phone] | | | | | | heart [...] + + | 12/05/ | Hospital | [facility] | Pepper Sneed MD | Coronary artery | | 2017 | Encounter | [facility]CHO | [address] | disease due to | | | | [address] | [place] [address] | calcified coronary | | | | [place], [place] | [phone] | lesion; Chronic | | | | [address] | | diastolic CHF | | | | [phone] | | (congestive heart | | | [...] CHAN Study Date: 12/05/2016MRN: | | | [id number] [facility]OB: | | | 1940 Age: 76 yrs | | | Gender: FemaleHeight: 65 in Weight: 176 | | | lb BSA: 1.9 [id number] For Study: CHF; CAD | | | [...] NEDRA, | | | RAMONEchocardiographer: Delbert Avelar [id number]: | | |LA dimension: 4.6 cm | [...] | |Referring Physician: PEPPER SNEED | | |Door Repairman: Delbert Soto | | |[id number]: | | | | | + +----- ---------+ + + | Procedure Note | + + | Carlos Martínez Results In - 12/05/2016 4:22 PM PDT | | Adult Echo | | Report | | | | Name: MARKIE CHAN Study Date: 12/05/2016 | | Patient Location: [facility] ECHO | | : 1940 [...] | Referring Physician: PEPPER SNEED | | Door Repairman: Delbert Soto | | [id number]: | + + LVEF VALUE (12/05/2016) + [...]
--- OUTSIDE RECORDS SUMMARY | ~2019-07-30 | XMS | Encounter Summary ---
Demographics + + + | Address | [address] | | | [place] [address] | + + + | Home Phone | | + + + | Preferred Language | Unknown | + + + | Marital Status | | + + + | Baptist Affiliation | 1001 | + + + | Race | Unknown | + + + | Ethnic Group | Unknown | + + + Author + + + | Author | [facility] | | | and [place] | + + + | Organization | [facility] | | [...] Team Providers + +------+ + | Care Component Assembler Name | Role | Phone | + +------+ + PCP | Unavailable | + +------+ + Encounter Details +--------+ + + + + | Date | Type | Department | Care Team | Description | +--------+ + + + + | 02/01/ | Hospital | [facility] | Allen Corbett, | | | 2005 | Encounter | [facility] [address] | MD [address] | | | | | Rosio Hernandez | [place], [place] | | | | | [place], [place] | [address] | | | | | [address] | | | | | | [phone] | | | +--------+ + + + [...]
--- OUTSIDE RECORDS SUMMARY | ~2019-07-30 | XMS | Encounter Summary ---
Demographics + + + | Address | [address] | | | [place] [address] | + + + | Home Phone [...] Team Providers + +------+ + | Care Public Information Director Name | Role | Phone | + +------+ + PCP | Unavailable | + +------+ + Encounter Details +--------+ + + + + | Date | Type | Department | Care Team | Description | +--------+ + + + + | 03/31/ | Hospital | [facility] | Ivon Shelton | | | 2011 - | Encounter | [facility] | MD [address] | | | | | CARDIAC TRANSPLANT | [address] | | | 04/02/ | | [address] | [place] [address] | | | 2010 | | [place], [place] | [phone] | | | | | [address] | | | | | | [phone] | | | +--------+ + + + [...] 1940 ADMISSION DATE: 03/31/2011 DISCHARGE DATE: 04/02/2011 [id number] / [id number] ADMITTING DIAGNOSES: 1. Non-ST elevated myocardial infarction. 2. Atherosclerotic heart disease. a. History of a jyu-WN-dhliqzcq myocardial infarction in 2004 and 2008. b. [...] AND SUPERVISION: Coronary thrombectomy, MARKIE CHAN ADM:03/31/11 [id number] 04/02/11 DIS IN DISCHARGE SUMMARY [id number] [facility] ABBY Corbett [facility] MD Ashely Palomares THIS REPORT IS CONFIDENTIAL AND NOT TO BE RELEASED WITHOUT PROPER AUTHORIZATION. [facility] angioplasty x3 of the left circumflex and femoral angiography by Dr. Ivon Shelton 03/31. HOSPITAL COURSE: The patient is a 70-year-old female with known coronary artery disease. S he has a history of a jyo-ZX-rdsriwfz myocardial infarction 2004 and in 2008. In [...] an MB 11.5. She was transferred to [facility] for further ev aluation and treatment. She [...] Shelton 04/29/2011 at 3:00 p.m. at the [facility] office, [address]. MARKIE CHAN ADM:03/31/11 [id number] 04/02/11 DIS IN DISCHARGE SUMMARY [id number] [facility] ABBY Corbett [facility] MD Ashely Palomares THIS REPORT IS CONFIDENTIAL AND NOT TO BE RELEASED WITHOUT PROPER AUTHORIZATION. [facility] Follow-up with Dr. García in 1 to 2 weeks. DIET: Low cholesterol, low saturated fat. ACTIVITY: No heavy or strenuous activity for two weeks. The patient has been referred to [facility] cardiac rehabilitation. DISCHARGE MEDICATIONS: 1. Zinc [...] pain. ABBY Coley MD P P ELLEN/klk #[id number] cc: MD Doug Juan MD Kimberly A. Nollette, PRODUCT SUPPORT ANALYST Electronically Signed 04/05/11 1522 ABBY Corbett Electronically Signed 04/04/11 2127 Ivon Shelton MD MARKIE CHAN ADM:03/31/11 [id number] 04/02/11 DIS IN DISCHARGE SUMMARY [id number] [facility] ABBY Corbett ES B [facility] Ivon Shelton MD B THIS REPORT IS CONFIDENTIAL AND NOT TO BE RELEASED WITHOUT PROPER AUTHORIZATION.Electronica lly signed by ABBY Keyes at 05/22/2013 9:46 AM PSTdocumented in this encounter Plan of Treatment Not on filedocumented as of this encounter Visit Diagnoses Not on filedocumented in this encounter"
--- OUTSIDE RECORDS SUMMARY | ~2019-07-30 | XMS | Encounter Summary ---
Demographics + + + | Address | [address] | | | [place] [address] | + + + | Home Phone [...] Team Providers + +------+ + | Care Battery Vent Plug Inserter Name | Role | Phone | + [...] | Physical | Diagnoses | Ricky, | [facility] Therapy | | | Services | Therapy / | Benign | MD Duog | [address] | | | Required | Rehabilitatio | paroxysmal | [address] | | | | n | positional | [address] | [place], [place] | | | | | vertigo, | Ave. | [address] | | | | | unspecified | [place], [place] | Phone: | | | | | laterality | [address] | [phone] | | | | | | Phone: | Fax: | | | | | | [phone] | [phone] | | | | | | Fax: | | | | | | | [phone] | | +--------+ + + + + + Encounter Details +--------+ + + + + | Date | Type | Department | Care Team | Description | +--------+ + + + + | 09/06/ | Hospital | [facility] | Doug García MD | Benign paroxysmal | | 2018 | Encounter | [facility] | [address] | positional vertigo, | | | | PHYSICAL THERAPY | [place] [address] | unspecified | | | | [address] | [phone] | laterality | | | | [place], [place] | | | | | | [address] | Satish Messer PT | | | | | [phone] | [address] | | | | | | [place], [place] | | | | | | [address] | | | | | | [phone] | | | | | | | [...] might be different fr om the original. [facility] PHYSICAL [facility]ERAPY [address] [facility] [address] Physical Therapy Daily Treatment Note Date: 09/06/2017 Patient Information Patient Name: Chaya Chan Date of : 1940 Age: 76 y.o. Encounter Diagnoses Code Name Primary? H81.10 Benign paroxysmal positional vertigo, unspecified laterality Referring Provider: Doug García MD Rehab Precautions Flowsheet Row [facility] PT EVALUATION from 09/01/2017 in [facility] THER[facility] Rehab Precautions Precautions Comments Significant PMH please review Rehab Learning Style Flowsheet Row [facility] PT EVALUATION from 09/01/2017 in [facility] Learning Style Patient's Optimum [...]
--- OUTSIDE RECORDS SUMMARY | ~2019-07-30 | XMS | Encounter Summary ---
Demographics + + + | Address | [address] | | | [place] [address] | + + + | Home Phone [...] Providers + +------+ + | Care Corporate Meeting Planner Name | Role | Phone | + +------+ + | Doug García MD | PCP | | + +------+ + Reason for Visit + + + | Reason | Comments | + + + | Follow-up | 6 month follow up, [facility] visit's for heart attack | + + + | Atrial Fibrillation | | + + + Encounter Details +--------+---------+ + + + | Date | Type | Department | Care Team | Description | +--------+---------+ + + + | 04/05/ | Office | [facility] | Fly Christianson, | Coronary artery | | 2018 | Visit | CARDIOLOGY [place] | [address] | disease due to | | | | [address] | [address] [place], | calcified coronary | | | | [address] [place] | [place] [address] | lesion | | | | [place] | [phone] | | | | | [address] | | | | | | [phone] | | | +--------+---------+ + + + [...] 04/05/2018 CHIEF COMPLAINT: Follow-up recent non-ST elevation OR ASSESSMENT Coronary artery disease Recent non-ST elevation [...] female with recent hospitalized limited non-ST elevation OR. Cardiac cath revealed somewhat diffuse branch disease with occlusion of her previous gambell circumflex stent. She had other moderate diffuse [...] PO) Take by mouth Daily. Please note [facility] has a flaw in which medication corrections [...] artery stenosis 03/13/2014 CHF (congestive heart failure) ([facility]) Coronary artery disease Hyperlipidemia Hypertension OR (myocardial infarction) ([facility]) Restless legs syndrome (RLS) 12/30/2010 Thyroid disease Past Surgical History: Procedure Laterality Date CARDIAC CATHERIZATION Right 08/25/2017 Procedure: CV LHC; Surgeon: Fly Christianson MD; Location: [facility] CV LAB CARDIAC CATHERIZATION Right 08/25/2017 Procedure: CV Graft Angio; Surgeon: Fly Christianson MD; Location: [facility] CV LAB CARDIAC CATHERIZATION Right 08/25/2017 Procedure: CV Cor Angio; Surgeon: Fly Christianson MD; Location: [facility] CV LAB CARDIAC CATHERIZATION Right 08/25/2017 Procedure: CV LV/RV; Surgeon: Fly Christianson MD; Location: [facility] CV LAB CORONARY ANGIOPLASTY CORONARY ARTERY BYPASS GRAFT 12/24/2013 CABG X4, WITH EVH - RIGHT AND LEFT SAPHENOUS VEIN,VOGEL ; Laterality: N/A; Surgeon: Golden Viera MD; Location: [facility] MAIN OR OTHER SURGICAL HISTORY 12/17/2013 Laterality: N/A; Surgeon: Erum Gerardo MD; Location: [facility] CARDIOVASCULAR LAB LADLE REPAIRMAN Right 08/25/2017 Procedure: CV Thoracic Aorta Angiogram; Surgeon: Fly Christianson MD; Location: [facility] CV L AB STENT PLACEMENT ADDITIONAL VESS [...] made to ensure accuracy; however, inadvertent computerized lung puller errors may be pres ent usually taking the form of 'sound alike' substitutions or incorrect pronouns. Please con tact me if there is confusion or concern about the above lung puller. [facility] Clinic Main Office - [facility] [address], [address] [place], [place] [address] Office: Medical Records [facility], [place] [address] Main: Physician referral and transfer line: Physician referral fax line: Medical Records phone: Medical Records fax: [place] [address] [address] [facility], [id number] [place] [address] Office: documented in this e ncounter Plan of Treatment Not on filedocumented as of this encounter Visit Diagnoses + + | Diagnosis | + + | Coronary artery disease due to calcified coronary lesion | + + documented in this encounter
--- OUTSIDE RECORDS SUMMARY | ~2019-07-30 | XMS | Encounter Summary ---
Demographics + + + | Address | [address] | | | [place] [address] | + + + | Home Phone [...] Team Providers + +------+ + | Care Attorney At Law Name | Role | Phone | + +------+ + | Doug García MD | PCP | | + +------+ + Reason for Visit + + + | Reason | Comments | + + + | Discharge Without | | | Visit | | + + + Encounter Details +--------+ + + + + | Date | Type | Department | Care Team | Description | +--------+ + + + + | 10/18/ | Documentati | [facility] | Satish Messer, | Discharge Without | | 2018 | on | [facility] | PT [address] | Visit | | | | PHYSICAL THERAPY | [address] [place], [place] | | | | | [address] [facility] | [address] | | | | | [place], [place] | [phone] | | | | | [address] | | | | | | [phone] | | | +--------+ + + + [...] encounter Progress Notes Satish Izaguirre, PT - 10/18/2017 1:26 PM PDTFormatting of this note might be different fr om the original. [facility] PHYSICAL THERAPY [address] [place] [address] Physical Therapy Discharge Note Date: 10/18/2017 Patient Information Patient Name: Chaya Chan Date of : 1940 Age: 76 y.o. Encounter Diagnoses Code Name Primary? H81.10 Benign paroxysmal positional vertigo, unspecified laterality Patient attended 4 PT sessions for disequilibrium reporting some improvement. She called a nd canceled her remaining appointments and has not returned. Patient is being discharged fr PT at this time per her request. Electronically signed by: Satish Izaguirre PT, 10/18/2017 13:31 Patient Name: Chaya Chan/: 1940/ s igned by Satish Izaguirre PT at 10/18/2017 1:33 PM PDTdocumented in this encounter Plan of Treatment Not on filedocumented as of this encounter Visit Diagnoses + + | Diagnosis | + + | Benign paroxysmal positional vertigo, unspecified laterality | + + documented in this encounter"
--- OUTSIDE RECORDS SUMMARY | ~2019-07-30 | XMS | Encounter Summary ---
Demographics + + + | Address | [address] | | | [place] [address] | + + + | Home Phone [...] Team Providers + +------+ + | Care Bath Mix Operator Name | Role | Phone | [...] Refill | | 2013 | | [facility] | [address] | | | | | Internal Medicine | [place] [address] | | | | | [address] [facility] | [phone] | | | | | [place], [place] | | | | | | [address] | | | | | | [phone] | | | +--------+--------+ + + + [...]
--- OUTSIDE RECORDS SUMMARY | ~2019-07-30 | XMS | Encounter Summary ---
Demographics + + + | Address | [address] | | | [place] [address] | + + + | Home Phone | | + + + | Preferred Language | Unknown | + + + | Marital Status | | + + + | Zoroastrian Affiliation | 1001 | + + + [...] Team Providers + +------+ + | Care Gun Fertilizer Name | Role | Phone | + [...] | Troponin | Yee M, | Pshi Prop And Effects Designer | | | | | level | [address] | [address] | | | | | elevated | [address] | [address] YFN | | | | | Procedures | [address] | [address] | | | | | ECHO | [place], [place] | [place] | | | | | Complete | [address] | [place], [place] | | | | | | Phone: | [address] | | | | | | [phone] | Phone: | | | | | | Fax: | [phone] | | | | | | [phone] | Fax: | | | | | | | [phone] | +--------+--------+ + + + + Reason [...] | | 2018 | Visit | [facility] | [address] | elevated (Primary | | | | [address] | [address]VE [address] | Dx); Coronary artery | | | | [address] [place] | [place] [address] | disease involving | | | | [place] | [phone] | coronary bypass | | | | [address] | | graft of [place] | | | | [phone] | | heart with unstable | | [...] Start Eliquis twice daily. Have Echo in [facility]. Follow up in 6 months documented [...] blood thinning" including cayenne, Cris, vitamin E [id number] Risk Score 8-10.8% estimated stroke risk per [...] history of coronary artery disease, status post KS 08/24/17, atrial fibrillation, prior embolic CVA, that [...] artery stenosis (03/13/2014); CHF (congestive heart failure) ([facility]); Coronary artery dise ase; Hyperlipidemia; Hypertension; [place] (myocardial infarction); Restless legs syndrome (RLS) (12/30/2010); and Thyroid disease. Chaya has a past surgical history that includes Coronary angioplasty; Tonsillectomy; STEN T PLACEMENT ADDITIONAL VESS; Coronary artery bypass graft (12/24/2013); other surgical histor y (12/17/2013); Cardiac catheterization (Right, 08/25/2017); Cardiac catheterization (Right, 08/25); Cardiac catheterization (Right, 08/25/2017); Cardiac catheterization (Right, 08/25/2017) ; and SUPERVISOR PLASTICS (Right, 08/25/2017). Family History: Her family history [...] EKG Sinus rhythm no acute ST changes MD interval 166 ms, QTC 425 ms, QRS [...] made to ensure accuracy; however, inadvertent computerized corporate securities research analyst errors may be pres ent usually taking [...] | | | | | | n [place] | | | | | + +--------+ [...] | + + + | Heriberto Perrin, Virtualization Engineer 10/03/2017 11:36 Please see | | | [...] artery disease involving coronary bypass graft of [place] heart with unstable | | angina pectoris [...]
--- OUTSIDE RECORDS SUMMARY | ~2019-07-30 | XMS | Encounter Summary ---
Demographics + + + | Address | [address] | | | [place] [address] | + + + | Home Phone [...] + | Author | [facility] | | | and [place] | + + + | Organization | [facility] | | | [...] Team Providers + +------+ + | Care Fitness Trainer Name | Role | Phone | + +------+ + PCP | Unavailable | + +------+ + Encounter Details +--------+ + + + + | Date | Type | Department | Care Team | Description | +--------+ + + + + | 01/18/ | Hospital | [facility] | Garry Gage Kimbrough, | | | 2009 - | Encounter | [facility] | [address] | | | | | [address] | [place] [address] | | | 08/04/ | | [place], [place] | [phone] | | | 2008 | | [address] | | | | | | [phone] | | | +--------+ + + + [...] documented as of this encounter Discharge Summaries Davis Berrios MD - 05/22/2013 12:59 PM PST PATIENT NAME: MARKIE CHAN PHYSICIAN: Davis Berrios DATE OF ADMISSION: 08/03/08 DATE OF DISCHARGE: 08/04/08 ADMISSION DATE: 08/03/2008 DISCHARGE DATE: 08/04/2008 TRANSFER NOTE REASON FOR TRANSFER: NON-ST ELEVATION AL. IMPRESSION: 1. NON-ST ELEVATION AL. See H&P for details. She is a 67-year-old female with history of P CI with stent x 2 in 2005 with rare angina up until one week ago where it was daily and the n had increased chest pressure on 08/03/2008, approximately 11:00 after significant exercis e on the stair-stepper. She was admitted and initially had negative enzymes at .18, but had an MB fraction of 5.6 and she has subsequently ruled in. Most recent troponin is 7.8. She took Aspirin and Nitro prior to arrival to the emergency room and was transferred to the ardiac Care Unit and was started on Nitro drip for significant hypertension in the 180-190' s and minimal residual chest pain. Since being on the Nitro drip she has had absolutely no chest pain, but has had mild headache from the Nitroglycerin. PLAN: 1. The patient will be transferred to [facility] for cardiac catheterization , already discussed with Dr. Ge, who I appreciate his consultation and eagerness to treat Ms Chan. 2. Per his recommendations she received one dose of Lovenox last night at 18:00 and will n ot receive any further this morning. She is status post Aspirin. At this time because of un known anatomy we will not start Plavix or 2B3A inhibitor. 3. At this time the patient is clinically stable and it is appropriate to transfer by [facility]. 4. Her creatinine is stable at 1.1 and will not use Mucomyst for renal protection, but patricia l hydrate with 125 ml per hour of normal saline prior to procedure. 2. HYPERTENSION. She is currently on Nitro drip. She received Metoprolol 12.5 mg p.o. las t night at 20:00 and was given a repeat dose at 06:30 this morning. She was on Norvasc 5 mg prior to presentation, but was transitioned to a beta candice because of the angina sympto ms. 3. HYPOTHYROID. Has actually been increased to 75 mics per day most recently, I erroneous ly thought she was on 50 per day. Her hypothyroid is well controlled. 4. SOCIAL. She and her Leonides are aware of plan and agreeable. SUBJECTIVE: Markie is a most delightful 67-year-old female. She denies any chest pain after starting t he Nitroglycerin drip. She is not having any shortness of Electronically Signed By: Davis Berrios MD 10/02/[address] ?[place] [address] PATIENT NAME: MARKIE CHAN PHYSICIAN: Davis Berrios DATE OF ADMISSION: 08/03/08 DATE OF DISCHARGE: 08/04/08 breath. No leg pains. She has been NPO since 24:00 except for meds. OBJECTIVE: VITAL SIGNS: Her pulse has been 69-80, afebrile, BP has been 105-154 systolic since the N itro drip, most recently 128. She has had 1180 in and a total of 3400 out. LABORATORY: H&H 12.7/37.4, white count 7.4, platelets 225, sed rate 35. Repeat BMP this morning shows normal electrolytes with a creatinine stable at 1.1, which indicates she will most likely t olerate repeat catheterization from a renal standpoint. Her CK total is 253, MB 21.6, relat dalton index 8.5 and troponin 7.85, this is up from .18 on admission, then 4 hour at 1.43, 8 h our of 5.48. GENERAL: She is awake, resting comfortably in bed. No acute distress. HEENT: Conjunctiva noninjected, sclera nonicteric. Mucous membranes moist. NECK: Without JVD. CHEST: Clear to auscultation bilaterally. CARDIOVASCULAR: Regular rate and rhythm, there is a 2/6 systolic murmur at the right uppe r sternal border. No heaves or thrills appreciated. ABDOMEN: Bowel sounds are positive. So ft, nontender, nondistended, no organomegaly. EXTREMITIES: No lower extremity edema. Please see Impression and Recommendations as above. Dr. Moris Castañeda has examined patient and agrees with plan above. Davis Berrios MD R3 Gage Castañeda MD KK:jamily Job ID:[id number] Doc ID:[id number] cc:MD Gage Mccabe MD Digitally authenticated 10/02/08 2238 Davis Beriros MD Electronically Signed By: Davis Berrios MD 10/02/08 2239 [facility] [address] ?[facility] [place], [place] [id number] signed by Davis Berrios MD at 05/23/2013 7:55 PM PSTdocumented in this en counter Progress Notes Gage Castañeda MD - 05/22/2013 12:59 PM PST PATIENT NAME: MARKIE CHAN PHYSICIAN: Gage Castañeda DATE OF SERVICE: 08/03/2008 ATTENDING ADMIT NOTE The patient reexamined and re-interviewed and agree with Dr. Berrios's Assessment and Plan. The patient has been having pain with activity. No resting chest pain. Currently only on N orvasc. Cannot tolerate statins. She had stents placed 3 years ago and has had no further i ntervention since. Really no other specific risk factors other than high blood pressure and dyslipidemia, ? diabetes, her blood sugar was elevated when we checked her glycohemoglobi n. She does have hypothyroidism, currently on supplementation. Workup in the ER shows sligh tly elevated relative index. Her troponin is normal. EKG shows no acute ST-T changes. She i s relatively hypertensive. We have started a Nitroglycerin drip and her pressure is coming down nicely. We are going to stop her Norvasc and start her on a beta candice. She really does not want to be on a statin agent. We will talk further about this. PHYSICAL EXAMINATION: She has a slight systolic heart murmur along the right sternal border, otherwise exam is c ompletely normal other than she has a little bit of an umbilical hernia. No other real sign ificant past medical history noted. ASSESSMENT AND PLAN: 1. CHEST PAIN. Will continue rule out protocol. Check an echocardiogram in the morning, g et her started on some Metoprolol. Continue with the Nitroglycerin drip. The patient really does not want to go down for further intervention if she doesn't have to, so we will see i f we can manage her medically at this point. Consider also GI source. We will put her on Pr otonix for now and will consider this if her workup is normal. Patient will be covered wit h Lovenox 1 mg per kilogram every 12 hours for now. 2. HYPERTENSION. Better already on Nit ro drip. We will see how she does with the beta candice and maybe a long-acting nitrate. 3. HYPOTHYROID. Check free T4/TSH. 4. HYPERGLYCEMIA. Will check a glycohemoglobin. Gage Castañeda MD HETAL:dmy Job ID:[id number] Doc ID:[id number] cc: Digitally authenticated 09/21/082119 Gage Castañeda MD Electronically Signed By: Gage Castañeda MD 09/21/082119 [address] [place] [facility] [place] [address] 14 documented in this en counter Plan of Treatment Not on filedocumented as of this encounter Procedures + +--------+ + + + | Procedure Name | Priori | Date/Time | Associated Diagnosis | Comments | | | ty | | | | + +--------+ + + + | XR CHEST 2 VIEWS | | 08/03/2008 | | Results for this | | | | 2:00 PM | | procedure are in the | | | | PST | | results section. | + +--------+ + + + documented in this encounter Results XR Chest 2 VW (08/03/2008 2:00 PM PST) + + | Specimen | + + | | + + + + + | Narrative | Performed At | + + + | Exam Performed Location: [facility] | MISCELANIOUS | | CHEST PA AND LATERAL VIEWS CLINICAL INFORMATION: Chest pain. | LAB | | COMPARISON: None FINDINGS: The heart is of normal size. The | | | pulmonary vessels appear normal. There is no evidence of acute | | | infiltrate or effusion. No bony or pleural abnormalities are seen. | | | IMPRESSION: Negative chest. S: SQ | | + + + + + | Procedure Note | + + | Amuricio, Rad Conversion - 05/11/2013 9:25 AM PDT Exam Performed Location: [facility] | | at [facility] PA AND LATERAL VIEWSCLINICAL INFORMATION:Chest | | pain.COMPARISON:NoneFINDINGS:The heart is of normal size. The pulmonary vessels appear | | normal.There is no evidence of acute infiltrate or effusion. No bony orpleural | | abnormalities are seen.IMPRESSION:Negative chest.S: SQ | |Chest pain. | | | |COMPARISON: | |None | | | |FINDINGS: | |The heart is of normal size. The pulmonary vessels appear normal. | |There is no evidence of acute infiltrate or effusion. No bony or | |pleural abnormalities are seen. | | | |IMPRESSION: | |Negative chest. | | | | | |S: SQ | + + + +---------+ + + | Performing | Address | City/State/Zipcode | Phone Number | | Organization | | | | + +---------+ + + | M[facility]ANEOUS LAB | | | [phone] | + +---------+ + + | MISCELANIOUS LAB | | | [phone] | + +---------+ + + documented in this encounter Visit Diagnoses Not on filedocumented in this encounter"
--- OUTSIDE RECORDS SUMMARY | ~2019-07-30 | XMS | Encounter Summary ---
Demographics + + + | Address | [address] | | | [place] [address] | + + + | Home Phone | | + + + | Preferred Language | Unknown | + + + | Marital Status | | + + + | Pentecostal Affiliation | 1001 | + + + [...] Team Providers + +------+ + | Care School Guard Name | Role | Phone | + [...] | | 2013 | Visit | [facility] | MD [address] | cause (Primary Dx); | | | | [address] | [address] [place], | Coronary artery | | | | [address] [place], [place] | [place] [address] | disease; | | | | [address] | [phone] | Hyperlipidemia; | | | | [phone] | | Chronic diastolic | | | [...] with meclizine. Has tolerated medication changes. Mrs Chan is very fatigued, but is otherwise doing [...] followup in one year Fly Christianson MD [facility] FOLLOWUP Return in about 1 year [...] Hypertension Thyroid disease AL (myocardial infarction) (HCC) CHF (congestive heart failure) (HCC) Restless legs syndrome (RLS) 12/30/2010 Benign paroxysmal positional vertigo 03/13/2014 Carotid artery stenosis 03/13/2014 Past Surgical History Procedure Date Coronary angioplasty Tonsillectomy Other surgical history 12/17/2013 CV DIAGNOSTIC CARDIAC CATH performed by Erum Gerardo MD at [facility] CARDIOVASCULAR LA B Coronary artery bypass graft 12/24/2013 CORONARY ARTERY BYPASS GRAFT performed by Sj Viera MD at [facility] MAIN OR Stent placement additional vess Her [...] of unspecified type of vessel, | | e[place] or graft | + + | Hyperlipidemia Other and unspecified hyperlipidemia | + + | Chronic diastolic CHF (congestive heart failure), NYHA class 2 (HCC) | + + | Paroxysmal atrial fibrillation (HCC) Atrial fibrillation | + + documented in this encounter
--- OUTSIDE RECORDS SUMMARY | ~2019-07-30 | XMS | Encounter Summary ---
Demographics + + + | Address | [address] | | | [place] [address] | + + + | Home Phone | | + + + | Preferred Language | Unknown | + + + | Marital Status | | + + + | Adventist Affiliation | 1001 | + + + [...] Team Providers + +------+ + | Care Civil Division Deputy Sheriff Name | Role | Phone | + [...] | | essential | [address] | | | | | hypertension | [address] | [place], [place] | | | | | Bilateral | Ave. | [address] | | | | | carotid | [place], [place] | Phone: | | | | | artery | [address] | [phone] | | | | | stenosis | Phone: | Fax: | | | | | Transient | [phone] | [phone] | | | | | cerebral | Fax: | | | | | | ischemia, | [phone] | | | | | | unspecified [...] | | essential | [address] | | | | | hypertension | [address] | [place], [place] | | | | | Bilateral | Ave. | [address] | | | | | carotid | [place], [place] | Phone: | | | | | artery | [address] | [phone] | | | | | stenosis | Phone: | Fax: | | | | | Transient | [phone] | [phone] | | | | | cerebral | Fax: | | | | | | ischemia, | [phone] | | | | | | unspecified [...] + + | 07/18/ | Hospital | [place] | Doug García MD | Benign essential | | 2018 | Encounter | [facility] | [address] | hypertension; | | | | [address] | [place] [address] | Bilateral carotid | | | | [place], [place] | [phone] | artery stenosis; | | | | [address] | | Transient cerebral | | | | [phone] | | ischemia, | | | | [...]
--- OUTSIDE RECORDS SUMMARY | ~2019-07-30 | XMS | Encounter Summary ---
Demographics + + + | Address | [address] | | | [place] [address] | + + + | Home Phone | | + + + | Preferred Language | Unknown | + + + | Marital Status | | + + + | Mandaen Affiliation | 1001 | + + + | Race | Unknown | + + + | Ethnic Group | Unknown | + + + Author + + + | Author | [facility] | | | and [place] | + + + | Organization | [facility] | | [...] Providers + +------+ + | Care Chief Radiologic Technologist Name | Role | Phone | + +------+ + PCP | Unavailable | + +------+ + Encounter Details +--------+ + + + + | Date | Type | Department | Care Team | Description | +--------+ + + + + | 03/31/ | Hospital | [facility] | Ludwin Lea, | | | 2010 | Encounter | [facility] | [address] | | | | EMERGENCY CENTER | [facility] | | | | | [address] | [place] [address] | | | | | [place], [place] | [phone] | | | | | [address] | | | | | | [phone] | | | +--------+ + + + [...] LABORATORY | | | | very early DE. Consider | | | | | | unstable | | | | | | angina. Repeat testing | | | | | | may be indicated.>0.50 | | | | | | ng/mL = Probable DE. | | | | | | If [...] + + | MONIKA [facility] | [address] | [place] [address] | | | [facility] | | | | | LABORATORY | | | | + + + + + | [facility] | | | | | [facility] | | | | | LABORATORY [...] | MONIKA SHEI[facility] | [address] [facility] | [place] [address] | | | [facility] | | | | | LABORATORY | | | | + + + + + | [facility] | | | | | [facility] | | | | | LABORATORY | | | | + + + + + XR Chest PA or AP (03/31/2011 6:39 AM PDT) + + | Specimen | + + | | + + + + + | Narrative | Performed At | + + + | Exam Performed Location: [facility] | MISCELANIOUS | | CHEST ONE-VIEW CLINICAL [...] costophrenic sulci as discussed above. S: SQ ([id number]) | | | Signed by: GILBERTO LYLES DO | | + + + + + | Procedure Note | + + | Carlos Martínez Conversion - 05/09/2013 4:57 PM PDT Exam Performed Location: [facility] | | at [facility] ONE-VIEWCLINICAL INFORMATION:Chest pain.COMPARISON:Chest | | two views [...] sulci as | | discussed above.S: SQ ([id number]) Signed by: GILBERTO LYLES DO | |FINDINGS: [...] | | | | | |S: SQ ([id number]) Signed by: GILBERTO LYLES DO | + + + +---------+ + + | Performing | Address | City/State/Zipcode | Phone Number | | Organization | | | | + +---------+ + + | [facility] | | | [phone] | + +---------+ + + | [facility] | | | [phone] | + +---------+ + + Troponin I [...] | ng/mL = Normal0.10 - | | [facility] | | | | 0.50 ng/mL = Possible | | HOSPITAL | | | | mild or very early DE. | | LABORATORY | | | | Consider | | | | | | unstable angina. | | | | | | Repeat testing may be | | | | | | indicated.>0.50 ng/mL = | | | | | | Probable DE. If | | | | | | [...] + + | MONIKA [facility] | [address] | [place] [address] | | | [facility] | | | | | LABORATORY [...] [address] [facility] | [place] [address] | | | [facility] | | [...] | MONIKA SHEIKH | [address] [facility] | [place] [address] | | | [facility] | | [...] + + | MONIKA SHEI[facility] | [address] [facility] [address] | [place] [address] | | | [facility] | | | | | LABORATORY | | | | + + + + + | [facility] | | | | | [facility] | | | | | LABORATORY [...] - 1.030 | [facility] | | | [place] | | | [place] | | | [...] + + | MONIKA [facility] | [address] [facility] [address] | [place] [address] | | | [facility] | | | | | LABORATORY | | | | + + + + + | [facility] | | | | | [facility] | | | | | LABORATORY | | | | + + + + + documented in this encounter Visit Diagnoses Not on filedocumented in this encounter"
--- OUTSIDE RECORDS SUMMARY | ~2019-07-30 | XMS | Encounter Summary ---
Demographics + + + | Address | [address] | | | [place] [address] | + + + | Home Phone [...] Team Providers + +------+ + | Care Protective Services Social Worker Name | Role | Phone | [...] | | 2013 | Visit | [facility] | [address] | (Primary Dx) | | | | Internal Medicine | YAMILE [address]ULLON | | | | | [address] [facility] | [place] [address] | | | | | [place], [place] | [phone] | | | | | [address] | | | | | | [phone] | | | +--------+---------+ + + + [...] follow her son in law on the [facility] [address] hike. Patient's Medications New Prescriptions No medications on file Previous Medications ASCORBIC ACID ([facility] VITAMIN C) 1000 MG TABLET Take 1,000 mg by mouth Daily. B [id number] ( VITAMIN B 50/B-COMPLEX) TABS once a [...]
--- OUTSIDE RECORDS SUMMARY | ~2019-07-30 | XMS | Encounter Summary ---
Demographics + + + | Address | [address] | | | [place] [address] | + + + | Home Phone | | + + + | Preferred Language | Unknown | + + + | Marital Status | | + + + | Confucianism Affiliation | 1001 | + + + [...] Team Providers + +------+ + | Care Hand Deicer Element Winder Name | Role | Phone | + +------+ + | Doug García MD | PCP | | + +------+ + Reason for Visit + + + | Reason | Comments | + + + | Initial Assessment | | + + + Physical Medicine [...] Rehabilitatio | paroxysmal | [address] | | | | n | positional | [address] | [place], [place] | | | | | vertigo, | Ave. | [address] | | | | | unspecified | [place], [place] | Phone: | | | | | laterality | [address] | [phone] | | | | | | Phone: | Fax: | | | | | | [phone] | [phone] | | | | | | Fax: | | | | | | | [phone] | | +--------+ + + + + + Encounter Details +--------+ + + + + | Date | Type | Department | Care Team | Description | +--------+ + + + + | 09/01/ | Hospital | [facility] | Doug García MD | Benign paroxysmal | | 2018 | Encounter | [facility] | [address] | positional vertigo, | | | | PHYSICAL THERAPY | [place] [address] | unspecified | | | | [address] | [phone] | laterality | | | | [place], [place] | | | | | | [address] | Satish Messer, PT | | | | | [phone] | [address] | | | | | | [place], [place] | | | | | | [address] | | | | | | [phone] | | | | | | | [...] +---------+ + + | Blood Pressure | 114/62 | 09/01/2017 11:26 AM | | | | | PST | | + +---------+ + + | Pulse | 70 | 09/01/2017 11:26 AM | | | | | PST | | + +---------+ + + | Temperature | - | - | | + +---------+ + + | Respiratory Rate | - | - | | + +---------+ + + | Oxygen Saturation | - [...] encounter Progress Notes Satish Izaguirre, PT - 09/01/2017 4:00 PM PSTFormatting of this note might be different fr om the original. Physical Therapy Plan of Care Date: 09/01/2017 Patient Name: Chaya Chan Date of : 1940 Encounter Diagnoses Code Name Primary? H81.10 Benign paroxysmal positional vertigo, unspecified laterality Date of Onset: 09/01/2017 Start of Care Date: 09/01/2017 Requested # of Visits: 8 visits 1x/week for 4-8 weeks Certification From: 09/01/2017 Certification To: 10/27/2017 Clinical Impression: Patient with complaints of disequilibrium that is chronic but reporte d as increased recently. Evaluation today was (-) for BPPV. Exam was instead consistent wi th unilateral vestibular hypofunction. Patient would benefit from adaptation exercises as w ell as static and dynamic balance exercises on a compliant surface. Goals: OP PT Goals Goal 1: Patient to be independent in a HEP in 3-4 weeks Goal 1 Status: New Goal 2: Patient to be able to report full 100% confidence in walking in crowded shopping ar ea and being bumped Goal 2 Status: New PT G-Codes Functional Assessment Tool Used: LEFS Score: 32% Functional Limitation: Mobility: Walking and moving around Mobility: Walking and Moving Around Current Status (G8978): At least 20 percent but less th an 40 percent impaired, limited or restricted Mobility: Walking and Moving Around Goal Status (G8979): At least 1 percent but less than 2 0 percent impaired, limited or restricted Treatment Plan/Interventions PT [id number] - Therapeutic [id number] - Neuromuscular [id number] - Gait Yovani [id number] - Therapeutic [id number] - Self Care/Home [id number] - Canalith Repositi oning Electronically signed by: Satish Izaguirre PT, 09/01/2017 16:00 Patient Name: Chaya Chan/: 1940/ Satish Brasher, PT - 0 09/01/2017 11:25 AM PST [facility] PHYSICAL THERAPY [address] [place] [id number] Physical Therapy Initial Assessment Date: 09/01/2017 Patient Information Patient Name: Chaya Chan Date of : 1940 Age: 76 y.o. History No problems updated. Mechanism of injury: No specific cause History of symptoms: Patient reports that she has struggled with dizziness and feeling off balance for her "whole life." She states that symptoms worsened recently after a heart gerald ck. She describes that sensation she experiences as a constant "fuzzy" feeling in her head and that she feels unsteady and has to be careful so as to avoid falling. Previous level of function and limitations: Unlimited Work status:Retired Living situation: With spouse Social History Social History Marital status: Spouse name: N/A Number of children: N/A Years of education: N/A Social History Main Topics Smoking status: Never Smoker Smokeless tobacco: Never Used Alcohol use Yes Comment: Pt rarely drinks alcohol Drug use: No Sexual activity: Not Asked Other Topics Concern None Social History Narrative Patient denies caffeine. Patient walks for exercise. Encounter Diagnoses Code Name Primary? H81.10 Benign paroxysmal positional vertigo, unspecified laterality Date of Onset: 09/01/2017 Referring Provider: Doug García MD No history on file. Past Medical History: Diagnosis Date Benign paroxysmal positional vertigo 03/13/2014 Carotid artery stenosis 03/13/2014 CHF (congestive heart failure) (HCC) Coronary artery disease Hyperlipidemia Hypertension VT (myocardial infarction) Restless legs syndrome (RLS) 12/30/2010 Thyroid disease Past Surgical History: Procedure Laterality Date CARDIAC CATHERIZATION Right 08/25/2017 Procedure: CV LHC; Surgeon: Fly Christianson MD; Location: [facility] CV LAB CARDIAC CATHERIZATION Right 08/25/2017 Procedure: CV Graft Angio; Surgeon: Fly Christianson MD; Location: [facility] CV LAB CARDIAC CATHERIZATION Right 08/25/2017 Procedure: CV Cor Angio; Surgeon: Fly Christianson MD; Location: [facility] CV LAB CARDIAC CATHERIZATION Right 08/25/2017 Procedure: CV LV/RV; Surgeon: Fly Christianson MD; Location: [facility] CV LAB CORONARY ANGIOPLASTY CORONARY ARTERY BYPASS GRAFT 12/24/2013 CABG X4, WITH EVH - RIGHT AND LEFT SAPHENOUS VEIN,VOGEL ; Laterality: N/A; Surgeon: Golden Viera MD; Location: [facility] MAIN OR OTHER SURGICAL HISTORY 12/17/2013 Laterality: N/A; Surgeon: Erum Gerardo MD; Location: [facility] CARDIOVASCULAR LAB YARN PACKER Right 08/25/2017 Procedure: CV Thoracic Aorta Angiogram; Surgeon: Fly Christianson MD; Location: [facility] CV L AB STENT PLACEMENT ADDITIONAL VESS TONSILLECTOMY Family History Problem Relation Age of Onset Stroke Mother Heart disease Neg Hx Developmental History Allergies Allergen Reactions Iodine Anaphylaxis Red Dye Other (See Comments) "angina", numb lips Diltiazem Hcl Latex Lidocaine Prior Treatment: None within the last sixty days Rehab Precautions Flowsheet Row [facility] THERAPY PT EVALUATION from 09/01/2017 in [facility] PHY SICAL THERAPY Rehab Precautions Precautions Comments Significant PMH please review Learning Style Patient's Optimum Learning Style: reading Abuse Assessment Do you feel safe in your current relationship or home?: Yes Action taken by clinician: No concerns Objective Standardized Tests: Lower Extremity Functional Scale (LEFS) Any of your usual work, housework or school activities: 4 - No difficulty Your usual hobbies, recreational or sporting activities: 3 - A little bit of difficulty Getting into or out of the bath: 4 - No difficulty Walking between rooms: 3 - A little bit of difficulty Putting on your shoes or socks: 4 - No difficulty Squattin - No difficulty Lifting an object, like a bag of groceries from the floor: 3 - A little bit of difficulty Performing light activities around your home: 2 - Moderate difficulty Performing heavy activities around your home: 1 - Quite a bit of difficulty Getting into or out of a car: 4 - No difficulty Walking 2 blocks: 4 - No difficulty Walking a mile: 3 - A little bit of difficulty Going up or down 10 stairs (about 1 flight of stairs): 3 - A little bit of difficulty Standing for 1 hour: 1 - Quite a bit of difficulty Sitting for 1 hour: 4 - No difficulty Running on even ground: 0 - Extreme difficulty or unable to perform activity Running on uneven ground: 0 - Extreme difficulty or unable to perform activity Making sharp turns while running fast: 0 - Extreme difficulty or unable to perform activity Hoppin - A little bit of difficulty Rolling over in bed: 4 - No difficulty Lower Extremity Functional Scale Score (Calculated): 54 Timed Up and Go (TUG) Timed Up and Go Score (TUG): 10 seconds TUG Fall Risk: < 10 seconds - Normal Timed Sit to Stand Test Timed Sit to Stand Test: 17 The Activities-specific Balance Confidence (ABC) Scale 1. walk around the house?: 100 2. walk up or down the stairs?: 100 3. bend over and roll picker a slipper from the front of a closet floor?: 100 4. reach for a small can off a shelf at eye level?: 100 5. stand on your tip toes and reach for something above your head?: 100 6. stand on a chair and reach for something?: 50 7. sweep the floor?: 50 8. walk outside the house to a car parked in the driveway?: 100 9. get into and out of a car?: 100 10. walk across a parking lot to the mall?: 100 11. walk up or down a ramp?: 100 12. walk in a crowded mall where people rapidly walk past you?: 70 13. are bumped into by people as you walk through the mall?: 50 14. step onto or off of an escalator while you are holding onto a railing?: 100 15. step onto or off an escalator while holding onto parcels such that you cannot hold onto the railing?: 50 16. walk outside on icy sidewalks?: 50 ABC Scale Score (Calculated): 82.5 Range of Motion (measured in degrees): Some restrictions in cervical ROM but non-tender and patient denies any significant neck pa in Fall Risk: Fall Risk Tests (Only need to perform one test listed below) Timed Up and Go Score (TUG): 10 seconds TUG Fall Risk: < 10 seconds - Normal Vestibular: Vestibular Exam Baseline Presentation L Vertebral Artery Test: negative, other (see comments) R Vertebral Artery Test: negative, other (see comments) (Performed modified VA test) Additional Vestibular Tests Convergence: WNL Divergence: WNL VOR Horizontal: Abnormal VOR Suppression: Abnormal Ocular tracking: questionable as looks jagged some of the time CTSIB: 1. 30 sec / 2. 30 sec / 3. 30 sec with sway / 4. 27 sec with significant sway Special Tests: Side lying test: (-) bilaterally Roll test: (-) Fukuda: (+) right Balance: SLS right 2 seconds, left 7 seconds. Tandem standing right posterior= 8 seconds, left posterior=4 seconds Vitals: Vital Signs Pulse: 70 BP: 114/62 MEWS Total Score: 0 Today's Treatment Patient Name: Chaya Chan/: 1940/ Start Time: 1110 Stop time: 1150 Duration: 40 minutes Timed Treatment Codes: 0 minutes # of PT Visits: 1 Visit Summary: Performed intial evaluation. Next Visit Information: Patient would prefer a HEP with limited visits used (as able). Tea ch X1 and X2 viewing as well as ocular tracking. Also static and dynamic balance exercise o n foam/pillow. Assessment Patient with complaints of disequilibrium that is chronic but reported as increased recentl y. Evaluation today was (-) for BPPV. Exam was instead consistent with unilateral vestibul ar hypofunction. Patient would benefit from adaptation exercises as well as static and sandi jaskaran balance exercises on a compliant surface. Rehabilitation potential: Patient demonstrates good potential to achieve established goals to address the documented impairments by participating in skilled physical therapy services. Goals: OP PT Goals Goal 1: Patient to be independent in a HEP in 3-4 weeks Goal 1 Status: New Goal 2: Patient to be able to report full 100% confidence in walking in crowded shopping ar ea and being bumped Goal 2 Status: New PT G-Codes Functional Assessment Tool Used: LEFS Score: 32% Functional Limitation: Mobility: Walking and moving around Mobility: Walking and Moving Around Current Status (G8978): At least 20 percent but less th an 40 percent impaired, limited or restricted Mobility: Walking and Moving Around Goal Status (G8979): At least 1 percent but less than 2 0 percent impaired, limited or restricted Plan Date of Onset: 09/01/2017 Start of Care Date: 09/01/2017 Requested # of Visits: 8 visits 1x/week for 4-8 weeks Certification From: 09/01/2017 Certification To: 10/27/2017 Treatment Plan/Interventions PT [id number] - Therapeutic [id number] - Neuromuscular [id number] - Gait Yovani [id number] - Therapeutic Sfntgwpbih62526 - Self Care/Home [id number] - Canalith Repositi oning Patient and/or family has indicated understanding of treatment needs and actively particip ated in the creation of this plan for care. Electronically signed by: Satish Izaguirre PT, 09/01/2017 16:00 Patient Name: Chaya Cahn/: 1940/ documented in this e ncounter Plan [...]
--- OUTSIDE RECORDS SUMMARY | ~2019-07-30 | XMS | Encounter Summary ---
Demographics + + + | Address | [address] | | | [place] [address] | + + + | Home Phone [...] Team Providers + +------+ + | Care Walnut Dehydrator Operator Name | Role | Phone | + +------+ + PCP | Unavailable | + +------+ + Encounter Details +--------+ + + + + | Date | Type | Department | Care Team | Description | +--------+ + + + + | 01/18/ | Hospital | [facility] | Garry Gage Kimbrough, | | | 2009 - | Encounter | [facility] | [address] | | | | | [address] | [place] [address] | | | 08/04/ | | [place], [place] | [phone] | | | 2008 | | [address] | | | | | | [phone] | | | +--------+ + + + [...] TRANSFER NOTE REASON FOR TRANSFER: NON-ST ELEVATION SD. IMPRESSION: 1. NON-ST ELEVATION SD. See H&P for details. She is a [...] 1. The patient will be transferred to [facility] for cardiac catheterization , already discussed with [...] and it is appropriate to transfer by [facility]. 4. Her creatinine is stable at 1.1 [...] Electronically Signed By: Davis Berrios MD 10/02/[address] ?[place] [address] PATIENT NAME: MARKIE CHAN PHYSICIAN: Davis Berrios [...] MD R3 Gage Castañeda MD KK:jamily Job ID:[id number] Doc ID:[id number] cc:MD Gage Mccabe MD Digitally authenticated 10/02/08 2237 Davis Berrios MD Electronically Signed By: Davis Berrios MD 10/02/08 2239 [facility] [address] ?[facility] [place], [place] [address]Peyvwdqrnixchj signed by Davis Berrios MD at 05/23/2013 [...] a glycohemoglobin. Gage Castañeda MD HETAL:dmy Job ID:[id number] Doc ID:[id number] cc: Digitally authenticated 09/21/082119 Gage Castañeda MD Electronically Signed By: Gage Castañeda MD 09/21/082119 [address] [place] [address] 14 documented in this en counter Plan [...] + + + | Exam Performed Location: [facility] | MISCELANIOUS | | CHEST PA AND [...] + + | Mauricio, Rad Conversion - 05/11/2013 9:25 AM PDT Exam Performed Location: [facility] | | at [facility] PA AND LATERAL VIEWSCLINICAL INFORMATION:Chest | | [...] + | MISCELLANEOUS LAB | | | [phone] | + +---------+ + + | MISCELANIOUS LAB | | | [phone] | + +---------+ + + documented in this encounter Visit Diagnoses Not on filedocumented in this encounter"
--- OUTSIDE RECORDS SUMMARY | ~2019-07-30 | XMS | Encounter Summary ---
Demographics + + + | Address | [address] | | | [place] [address] | + + + | Home Phone [...] Providers + +------+ + | Care Air Conditioning Equipment Mechanic Name | Role | Phone | + [...] Closed | | Radiology | Diagnoses | Estefaníar, | [facility] | | | | | Troponin | Yee M, | Pshi Spring Former | | | | | level | DOG AND CAT FOOD C[address] | [address] | | | | | elevated | [address] | [address] | | | | | Procedures | [address] | [address] | | | | | ECHO | [place], [place] | [place] | | | | | Complete | [address] | [place], [place] | | | | | | Phone: | [phone] | | | | | | [phone] | Phone: | | | | | | Fax: | [phone] | | | | | | [phone] | Fax: | | | | | | | [phone] | +--------+--------+ + + + + Reason for Visit Diagnostic/Screening (Routine) +--------+--------+ + + + + | Status | Reason | Specialty | Diagnoses / | Referred By | Referred To | | | | | Procedures | Contact | Contact | +--------+--------+ + + + + | Closed | | Radiology | Diagnoses | Zierer, | [facility] | | | | | Troponin | Yee Duenas, | Pshi Spring Former | | | | | level | DOG AND CAT FOOD COOK [address] | [address] | | | | | elevated | [address]VE | [address] YFN | | | | | Procedures | [address] | [address] | | | | | ECHO | [place] | [place] | | | | | Complete | [address] | [place] | | | | | | Phone: | [phone] | | | | | | [phone] | Phone: | | | | | | Fax: | [phone] | | | | | | [phone] | Fax: | | | | | | | [phone] | +--------+--------+ + + + + Encounter Details +--------+ + + + + | Date | Type | Department | Care Team | Description | +--------+ + + + + | 03/14/ | Hospital | [facility] | Yee Jiménez, | Troponin level | | 2018 | Encounter | HEART CARDIOVASCULAR | [address] | elevated | | | | IMAGING CENTER | [address] | | | | | [place] [address] | [place] [address] | | | | | [address] | [phone] | | | | | [place], [place] | | | | | | [address] | | | | | | [phone] | | | +--------+ + + + [...] + | ECHO COMPLETE | Routin | 03/14/2018 | Troponin level | Results for this | | | e | 9:46 AM | elevated | procedure are in [...] | | | | | | n [place] | | | | | + +--------+ [...] | + + | Troponin level elevated Other abnormal blood chemistry | + + documented in this encounter"
--- OUTSIDE RECORDS SUMMARY | ~2019-07-30 | XMS | Encounter Summary ---
Demographics + + + | Address | [address] | | | [place] [address] | + + + | Home Phone | | + + + | Preferred Language | Unknown | + + + | Marital Status | | + + + | Anabaptism Affiliation | 1001 | + + + | Race | Unknown | + + + | Ethnic Group | Unknown | + + + Author + + + | Author | [facility] | | | and [place] | + + + | Organization | [facility] | | [...] Team Providers + +------+ + | Care Personal Development Mentor Name | Role | Phone | + [...] | 2018 | | [facility] | [address] | | | | | [address] | [address] | | | | | [facility] [address] [place] | [place] [address] | | | | | [address] | [phone] | | | | | [phone] | | | +--------+ + + + [...]
--- OUTSIDE RECORDS SUMMARY | ~2019-07-30 | XMS | Encounter Summary ---
Demographics + + + | Address | [address] | | | [place] [address] | + + + | Home Phone [...] Team Providers + +------+ + | Care Club Director Name | Role | Phone | [...] | | | artery | [address] | | | | | disease) | YAMILE GRULLON | Estuardo, | | | | | Procedures | [place] | [place] [address] | | | | | Eval & Treat | [address] | Phone: | | | | | - MMV | Phone: | [phone] | | | | | | [phone] | Fax: | | | | | | Fax: | [phone] | | | | | | [phone] | | +--------+ + + + + + Encounter Details +--------+---------+ + + + | Date | Type | Department | Care Team | Description | +--------+---------+ + + + | 07/31/ | Office | [facility] | Donald Mendiola, | CAD (coronary artery | | 2014 | Visit | Sharon Ni | [address] | disease) (Primary | | | | Internal Medicine | Ave. [place], [place] | Dx) | | | | [address] | [id number] | | | | | [place], [place] | | | | | | [address] | | | | | | [phone] | | | +--------+---------+ + + + [...] might be different fro m the original. [facility] - Cardiology [address] [place] [address] PATIENT: Chaya Chan CHIEF COMPLAINT: Chief Complaint [...] 2010 patient sust ained a second non-STEMI PA. Following this event patient's underwent thrombectomy and [...] she travels with her son-in-law she to [place] and other places. She t araceli to see a physician when she is in town. She would like to see Dr. García again soon but she will be gone for the next couple of months. She is tired of going to [place] so she wo uld like to see [...] of unspecified type | | of vessel, north fork or graft | + + documented in this encounter
--- OUTSIDE RECORDS SUMMARY | ~2019-07-30 | XMS | Encounter Summary ---
Demographics + + + | Address | [address] | | | [place] [address] | + + + | Home Phone [...] Team Providers + +------+ + | Care Evaporator Operator Molasses Name | Role | Phone | + [...] | Troponin | Yee M, | Pshi Fire Sprinkler Designer | | | | | level | TRANSLATOR/INTERPRETER [address] | [address] | | | | | elevated | [address] | [address] YFN | | | | | Procedures | [address] | [address] | | | | | ECHO | [place], [place] | [place] | | | | | Complete | [address] | [place], [place] | | | | | | Phone: | [phone] | | | | | | [phone] | Phone: | | | | | | Fax: | [phone] | | | | | | [phone] | Fax: | | | | | | | [phone] | +--------+--------+ + + + + Reason [...] | Troponin | Yee Duenas, | Pshi Fire Sprinkler Designer | | | | | level | TRANSLATOR/INTERPRETER [address] | [address] | | | | | elevated | [address]VE | [address] YFN | | | | | Procedures | [address] | [address] | | | | | ECHO | [place] | [place] | | | | | Complete | [address] | [place] | | | | | | Phone: | [phone] | | | | | | [phone] | Phone: | | | | | | Fax: | [phone] | | | | | | [phone] | Fax: | | | | | | | [phone] | +--------+--------+ + + + + Encounter Details +--------+ + + + + | Date | Type | Department | Care Team | Description | +--------+ + + + + | 03/14/ | Hospital | [facility] | Yee Jiménez, | Troponin level | | 2018 | Encounter | HEART CARDIOVASCULAR | TRANSLATOR/INTERPRETER [address] | elevated | | | | IMAGING CENTER | [address] | | | | | [place] [facility] [employer] [address] | [place] [address] | | | | | [address] | [phone] | | | | | [place], [place] | | | | | | [address] | | | | | | [phone] | | | +--------+ + + + [...] | | | | | | n [place] | | | | | + +--------+ [...]
--- OUTSIDE RECORDS SUMMARY | ~2019-07-30 | XMS | Encounter Summary ---
Demographics + + + | Address | [address] | | | [place] [address] | + + + | Home Phone [...] Team Providers + +------+ + | Care Folding Machine Tender Name | Role | Phone | [...] Coronary artery | | 2017 | | [facility] | In Class Special Education Teacher | disease due to | | | | LABORATORY [address] | | calcified coronary | | | | [address] | | lesion; Acquired | | | | [place], [place] | | hypothyroidism; | | | | [address] | | Benign essential | | | | [phone] | | hypertension; | | | | [...] + + + + | [facility] | [address] | [place] [address] | | | [facility] | | [...] + | [facility] | [address] [facility] | [place] [address] | | | [facility] | | | | | LABORATORY [...] | + + + + + | [facility] | [address] | [place] [address] | | | [facility] | | | | | [...] HOSPITAL | | | | | | [facility] | | | | | | [facility] [...] + + | [facility] | [address] | [place] [address] | | | [facility] | | | | | [...] + + | [facility] | [address] | [place] [address] | | | [facility] | | | | | [...] [address] [facility] [facility] | [place] [address] | | | [facility] | | | | | LABORATORY [...]
--- OUTSIDE RECORDS SUMMARY | ~2019-07-30 | XMS | Encounter Summary ---
Demographics + + + | Address | [address] | | | [place] [address] | + + + | Home Phone | | + + + | Preferred Language | Unknown | + + + | Marital Status | | + + + | Jewish Affiliation | 1001 | + + + [...] Team Providers + +------+ + | Care Ecological Technical Officer Name | Role | Phone | [...] | +--------+ + + + + | 03/17/ | Telephone | [facility] | No, Physician | Appointment | | 2014 | | [facility] | | | | | | [address] | | | | | | [address] [place] | | | | | | [address] | | | | | | [phone] | | | +--------+ + + + [...]
--- OUTSIDE RECORDS SUMMARY | ~2019-07-30 | XMS | Encounter Summary ---
Demographics + + + | Address | [address] | | | [place] [address] | + + + | Home Phone [...] Team Providers + +------+ + | Care Metal Mockup Maker Name | Role | Phone | [...] [facility]) | | | | | | | NSTEMI | | | +--------+--------+ + + + + Encounter Details +--------+ + + + + | Date | Type | Department | Care Team | Description | +--------+ + + + + | 07/27/ | Hospital | [facility] | Ronnie Holman | Atrial fibrillation | | 2019 - | Encounter | MED CTR ICU [address] | MD Carrie [address] | with RVR ([facility]); | | | | Darr[place], | [address] [place] | NSTEMI (non-ST | | 07/29/ | | [place] [address] | [place] [address] | elevated myocardial | | 2019 | | [phone] | [phone] | infarction) ([facility]); | | [...] whether | | | | | | [place] or | | | | | | [...] about whether you should eliminate caffeine. Avoid krgj-kjd-lrlxepn medicines that have caffeine in them. Let your doctor know what medicines you take, including prescription and aoya-xci-xqpvrj r medicines, as well as any supplements. [...] an unusually fast heartbeat Date Last Reviewed: 11/07/201519992624-6794 [address] [employer] [place], [place] [id number]. All righ ts reserved. This information is [...] member provided MEDICATION BOTTLES and AVS from [facility] (07/21/2019 discharge) X Pharmacy list names: [facility] [place] X [employer] insurance reported information X Care Everywhere X Outside Information Vaccines up to date? Influenza No Pneumococcal No Tdap No Shingles No Noted medications discrepancies or medication-related issues: Dosage/Form/Frequency change: GROUND INTELLIGENCE OFFICER Medication: Prior to Admission Sig: Correct Dosage/Form: [...] Prior to Admission Sig: Patient taking differently GROUND INTELLIGENCE OFFICER as: Atorvastatin 40 mg tab 1 tab by mouth daily Not taking Cielo and patient unaware prescription was missing when they picked everything up from [facility] Patient has not taken in months maybe even years Patient denies use of recreational substances, tobacco or alcohol. Best possible GROUND INTELLIGENCE OFFICER medication list after pharmacy review: Medication review performed and electronically signed by Nancie Valenzuela, College Football Coach 3:11 PM Reviewed by Cheyenne Ureña, PharmD [...] might be different from the origi nal. [facility] [place] HOSPITALIST PROGRESS NOTE Patient: Markie Chan : 1940: Age: 78 y.o. MedRec: [id number] Admission date: 07/27/2019 Hospital day # : [...] pain occurring in am of presentation to [facility]. On examination at [place] the patient had 8/10 chest pain radiating [...] her passing away in June. Admitted in [place] 07/20-07/21 for NSTEMI, troponin increased to 8.2 at peak at that time. P miguel angel was to medically manage as patient was not agreeable to [facility] at that time. Started on xar elto during this admission, as well as new medicaitons of lisinopril and famotidine Plan # NSTEMI # CAD s/p 4V-CABG in 2013 - Troponin 0.38->1.7->2.89->3->2.86, EKG with ST depression in lateral leads - remains CP free, HDS, no e/o volume overload - h/o recurrent NSTEMI, last [facility] Aug 2017- patent VOGEL-LAD and patent SVG-RCA. [...] saline 100 units/mL infusion 800 Units/hr Intravenous [facility] marii Lobo PharmD 8 mL/hr at [...] 46 BPM Confirmed by MARIELENA MCKOY MD ([id number]) on 07/28/2019 6:55:10 AM PTT Collection Time: [...] leads V5-6 Confirmed by MARIELENA MCKOY MD ([id number]) on 07/28/2019 6:56:51 AM Troponin I Collection [...] Procedure Component Value Units Date/Time Culture, MRSA [[id number]] (Normal) Collected: 07/27/19 1250 Order Status: Completed [...] L/min Zahira Pyle MD 07/28/2019 3:47 PM [facility] Portions of this chart may have been created with [employer] voice recognition software. Occasi onal wrong-word or [...] 07/27 07/28 07/28 Time of Xa test 2200 0339 1020 Xa 1.37 (on xarelto) - [...] (did not take 07/27/19 dose yet) If GROUND INTELLIGENCE OFFICER medlist shows Xa inhibitor oral agent or [...] other anticoagulants as appropriate (list): not ordered- GROUND INTELLIGENCE OFFICER xarelto last given 07/26 3. Dosing plan: [...] + + documented in this encounter Results [place] Nuclear Stress Test (Vasodilator) (07/29/2019 12:16 PM [...] + | [facility] | [address] | [place] | [phone] | | [facility] | | [address] | | | - LABORATORY | | [...] [address] | [place] | [phone] | | [facility] | | [address] | | | - LABORATORY | | [...] ST. | [address] | [place], [place] | [phone] | | [facility] | | [address] | | | - LABORATORY | | [...] [address] | [place] | [phone] | | [facility] | | [address] | | | - LABORATORY | | [...] not | 48 (L)Comment: | >=60 | [facility] | | | | GLOMERULAR FILTRATION | mL/min/1.73m2 | [facility] | | | [place] | RATE,ESTIMATED | | MEDICAL | | | | mL/min/1.47h1Pimr than | | CENTER - | | [...] | ine Ratio | | | [facility] | | | | | | [...] [address] | [place] | [phone] | | [facility] | | [address] | | | - LABORATORY | | [...] 0.70 IU/mL | MONIKA | | | [facility] | | | [facility] | | | - LABORATORY | + + + + + + + + | Performing | Address | City/State/Zipcode | Phone Number | | Organization | | | | + + + + + | [facility] | [address] | [place] | [phone] | | [facility] | | [address] | | | - LABORATORY | | [...] | | | | | | [employer] | | | | | [...] + | [facility] | [address] | [place] | [phone] | | [facility] | | [address] | | | - LABORATORY | | [...] | | | | | | [employer] | | | | | [...] [address] | [place] | [phone] | | [facility] | | [address] | | | - LABORATORY | | [...] | | | | | | [employer] | | | | | [...] ST. | [address] | [place] | [phone] | | [facility] | | [address] | | | - LABORATORY | | [...] 451 | | | FLOYD Patient Number [id number] Date of Study | | | 07/28/2019 Visit Number [id number] Referring | | | Physician SURAJ CHILDERS | | | Boring Machine Operator Vertical Number Date of 1940 | | | Interpreting DIANA PRUETT MD | | | Physician Age 78 year(s) | | | Nurse Gender Female Stress | | | Senior Ui Web Developer Procedure Type of Study TTE procedure:ECHO Complete. [...] Martínez Results In - 07/30/2019 9:10 AM [facility] Transthoracic Echocardiography Report | | (TTE) Demographics Patient Name MILLIE ADEN Room Number 451 | | FLOYD Patient Number [id number] Date of Study 07/28/2019 Visit Number | | [id number] Referring Physician SURAJ CHILDERS | | Boring Machine Operator Vertical Number Date of 1940 Derek ORTIZ | [...] [address] | [place] | [phone] | | [facility] | | [address] | | | - LABORATORY | | [...] | | | | MARIELENA MCKOY MD ([id number]) | | | | | | on [...] | | | | | | [employer] | | | | | [...] [address] | [place] | [phone] | | [facility] | | [address] | | | - LABORATORY | | [...] MD | | | | | | ([id number]) on 07/28/2019 | | | | | [...] [address] | [place] | [phone] | | [facility] | | [address] | | | - LABORATORY | | [...] ST. | [address] | [place], [place] | [phone] | | [facility] | | [address] | | | - LABORATORY | | [...] | Monocytes | | K/uL | [facility] | | | | | | MEDICAL [...] [address] | [place] | [phone] | | [facility] | | [address] | | | - LABORATORY | | [...] mL/min/1.73m2 | [facility] | | | [place] | RATE,ESTIMATED | | MEDICAL | | | | mL/min/1.89z0Axif than | | CENTER - | | [...] [address] | [place] | [phone] | | [facility] | | [address] | | | - LABORATORY | | [...] + | [facility] | [address] | [place] | [phone] | | [facility] | | [address] | | | - LABORATORY | | [...] | | | | | | [employer] | | | | | [...] [address] | [place] | [phone] | | [facility] | | [address] | | | - LABORATORY | | [...] [address] | [place] | [phone] | | [facility] | | [address] | | | - LABORATORY | | [...] | | | | | MARIELENA FRANKEL ([id number]) on | | | | | | [...] | | | | | | [employer] | | | | | [...] + | [facility] | [address] | [place] | [phone] | | [facility] | | [address] | | | - LABORATORY | | [...] [address] | [place] | [phone] | | [facility] | | [address] | | | - LABORATORY | | [...] + | [facility] | [address] | [place] | [phone] | | [facility] | | [address] | | | - LABORATORY | | [...] + | [facility] | [address] | [place] | [phone] | | [facility] | | [address] | | | - LABORATORY | | [...] Therapeutic range: 0.30 - 0.70 IU/mL | EU[facility]KA | | Unofficial result 1.37 | [facility] | | | [facility] | | | - LABORATORY | + + + + + + + + | Performing | Address | City/State/Zipcode | Phone Number | | Organization | | | | + + + + + | [facility] | [address] | [place] | [phone] | | [facility] | | [address] | | | - LABORATORY | | [...] | | | | | | [employer] | | | | | [...] [address] | [place] | [phone] | | [facility] | | [address] | | | - LABORATORY | | [...] + | [facility] | [address] | [place] | [phone] | | [facility] | | [address] | | | - LABORATORY | | [...] + | [facility] | [address] | [place] | [phone] | | [facility] | | [address] | | | - LABORATORY | | [...] [address] | [place] | [phone] | | [facility] | | [address] | | | - LABORATORY | | [...] | mL/min/1.73m2 | [facility] | | | [place] | RATE,ESTIMATED | | MEDICAL | | | | mL/min/1.03n2Kqxo than | | CENTER - | | [...] ST. | [address] | [place], [place] | [phone] | | [facility] | | [address] | | | - LABORATORY | | [...] | | Granulocyte | | | [facility] | | | s | | | [...] [address] | [place] | [phone] | | [facility] | | [address] | | | - LABORATORY | | [...] | | | | MARIELENA MCKOY MD ([id number]) | | | | | | on [...] ST. | [address] | [place], [place] | [phone] | | [facility] | | [address] | | | - LABORATORY | | | | + + + + + documented in this encounter Visit Diagnoses + + | Diagnosis | + + | NSTEMI (non-ST elevated myocardial infarction) (HCC) - Primary Acute myocardial | | infarction, subendocardial infarction, episode of care unspecified | + + | Atrial fibrillation with RVR ([facility]) Atrial fibrillation | + + | Coronary artery disease, angina presence unspecified, unspecified vessel or lesion | | type, unspecified whether [place] or transplanted heart | + + | Paroxysmal atrial fibrillation ([facility]) Atrial fibrillation | + + | [...]
--- OUTSIDE RECORDS SUMMARY | ~2019-07-30 | XMS | Encounter Summary ---
Demographics + + + | Address | [address] | | | [place] [address] | + + + | Home Phone | | + + + | Preferred Language | Unknown | + + + | Marital Status | | + + + | Amish Affiliation | 1001 | + + + | Race | Unknown | + + + | Ethnic Group | Unknown | + + + Author + + + | Author | [facility] | | | and [place] | + + + | Organization | [facility] | | | [...] Providers + +------+ + | Care Senior Controls Technician Name | Role | Phone | [...] Without | | 2018 | on | [facility] | [address] | Visit | | | | PHYSICAL THERAPY | [address]VE [place], [place] | | | | | [address] [facility] | [address] | | | | | [place], [place] | [phone] | | | | | [address] | | | | | | [phone] | | | +--------+ + + + [...] might be different fr om the original. [facility] [address] [place] [phone] Physical Therapy Discharge Note Date: 10/18/2017 Patient [...]
--- OUTSIDE RECORDS SUMMARY | ~2019-07-30 | XMS | Encounter Summary ---
Demographics + + + | Address | [address] | | | [place] [address] | + + + | Home Phone [...] Team Providers + +------+ + | Care Laser Beam Trim Operator Name | Role | Phone | + +------+ + | Doug García MD | PCP | | + +------+ + Reason for Visit +--------+ + | Reason | Comments | +--------+ + | Other | Dr Layne re-admitted patient with Acute on chronic diastolic CHF | | | with afib, RVR and pleural effusion - post pericardiotomy | | | syndrome | +--------+ + Encounter Details +--------+ + + + + | Date | Type | Department | Care Team | Description | +--------+ + + + + | 01/06/ | Telephone | [facility] [place] | Lobo Hughes, | Other (Dr Layne | | 2013 | | [facility] [place] | [address] | re-admitted patient | | | | HI4 [address] | [address] [place] | with Acute on | | | | [address] [place] | [address] | chronic diastolic | | | | [address] | | CHF with afib, RVR | | | | [phone] | | and pleural effusion | | | | | | - post | | | | | | pericardiotomy | | | | | | syndrome) | +--------+ + + + + Social [...]
--- OUTSIDE RECORDS SUMMARY | ~2019-07-30 | XMS | Encounter Summary ---
Demographics + + + | Address | [address] | | | [place] [address] | + + + | Home Phone [...] Providers + +------+ + | Care Construction Quality Control Manager Name | Role | Phone | [...]
--- OUTSIDE RECORDS SUMMARY | ~2019-07-30 | XMS | Encounter Summary ---
Demographics + + + | Address | [address] | | | [place] [address] | + + + | Home Phone | | + + + | Preferred Language | Unknown | + + + | Marital Status | | + + + | Christianity Affiliation | [id number] | + + + [...] Team Providers + +------+ + | Care Bowling Alley Mechanic Name | Role | Phone | [...] | | | | | | | muscogee | | | | | | | coronary | | | | | | | artery | | | | | | | Coronary | | | | | | | atherosclero | | | | | | | sis of | | | | | | | muscogee | | | | | | | coronary | | | | | | | artery | | | | | | | Procedures | | | | | | | NE CABG, | | | | | | [...] OP [address] | [place] [address] | SAPHENOUS VEIN,VOGEL | | | | [place] | [phone] | | | | | [address] | | | | | | [phone] | | | +--------+---------+ + + + [...] Herrera PA - 01/02/2014 10:18 AM PDT [facility] PATIENT NAME: Chaya Chan : 1940: AGE: 73 y.o. ADMISSION DATE: 12/24/2013 DISCHARGE DATE: 01/02/2014 PRIMARY CARE: Doug Gacría MD DISCHARGE SUMMARY Admission Diagnoses: HOSPITAL PROBLEM [...] Hospital Course: Patient was admitted to [facility] on 12/24/[address] Dodie navarrete [...] has been referred t o the [facility] anticoagulation clinic for further monitoring. Discharge [...] TRIG 70 12/16/2013 Discharge Medications: Not reviewed WATER PURIFIER meds Medication Sig Dispense Refill ascorbic acid ([employer] VITAMIN C) 1000 MG tablet Take 1,000 mg by mouth Daily. aspirin 81 mg EC tablet Take 81 mg by mouth Daily. atorvaSTATin (LIPITOR) 40 mg tablet Take 1 tablet by mouth Daily. 30 tablet 11 B Qnelrgl-Lqhjuo-GV ( VITAMIN B 50/B-COMPLEX) TABS once a [...] 1-2 weeks. Follow-up with Dr. Armstrong with [facility] in 1 month. If patient has any further questions or concerns prior to above, instructed to call our off ice. [phone]. Signed by: CASSIE Thomas Cardiothoracic Surgery [facility] 01/02/2014, 10:18 [...] ed help. Don t lift anything heavier kfkx4tuqcgk for6-8 weeks. Until approved by your doctor, [...] the hospital, begin with short wal ks (oyaks7uhouzdq) at home. Go a little longer each [...] symptoms you had prior to surgery Fever [id number] Redness, swelling, drainage, or warmth at the incision site Shortness of breath Fainting Weight gain of more sggy6uoidig tn22bzfag or more jlwc6timvul qp9iyjv(s) New or increasedswelling in your hands, feet, or ankles Pain that cannot be relieved or changes in the location, type, or severity of pain Fast or irregular pulse Unrelieved pain in your incision [id number] Werner Pereyra, [address] [place] [address], [place] [address]. All rights reserve d. This information is [...] | 0 | 04/06/20 | | | Ebneein-Mpcrbv-LI | | | | 11 | 4 [...] Coronary atherosclerosis of unspecified type of vessel, muscogee or graft CHIEF COMPLAINT: shortness of breath, [...] diphenhydrAMINE, diphenhydrAMINE, diphenhydramine, HYDROcodone-acetaminophen, HYDROcodone-acetaminophen, magnesium hydroxide, rvistlsc-rnbvyzoom-dmofzffbfa, ondansetron, ondansetron, phenol-menthol, sodium phosphate IV INFUSIONS: [...] 0700 01/02/14 0701 - 01/03/14 0700 Shift 7506-2743 24 Hour Total 4836-3701 3289-8261 24 Hour Total I N T A [...] cyanosis. Electronically signed by Steven Dyer MD, [facility] DATE/TIME: 01/02/2014 12:32 Porsche Ramos, PharmD - 01/02/2014 9:01 AM PDTFormatting of this note might be different from the [facility] Progress Note Warfarin Per Pharmacy Protocol: [...] Fountain PA - 01/02/2014 7:59 AM PDT [facility] CARDIOTHORACIC SURGERY PROGRESS NOTE Pt. Name/Age/: Chaya Chan 73 y.o. 1940 Med. Record Number: [id number] Date of admission: 12/24/2013 POD #9 Procedure: [...] Hyponatremia Electronically signed by: CHUY OsunaC Physician Community Relations Police Lieutenant [facility] Cardiothoracic Surgery 01/02/2014 7:59 [facility] Rod Dow (Fritz ), PharmD - 01/01/2014 [...] Coronary atherosclerosis of unspecified type of vessel, muscogee or graft CHIEF COMPLAINT: fatigue, some nausea [...] diphenhydrAMINE, diphenhydrAMINE, diphenhydramine, HYDROcodone-acetaminophen, HYDROcodone-acetaminophen, magnesium hydroxide, gvuktkhy-yailauwus-uccqgtbudg, ondansetron, ondansetron, phenol-menthol, sodium phosphate LABS Recent [...] 0700 01/01/14 07 - 01/02/14 0700 Shift 4672-8195 24 Hour Total 7729-9987 9060-6228 24 Hour Total I N T A [...] cyanosis. Electronically signed by Steven Dyer MD, [facility] DATE/TIME: 01/01/2014 11:55 Shahrzad Grajeda MD - 01/01/2014 6:[address] [facility] PROGRESS NOTE Pt. Name/Age/: Chaya Chan 73 y.o. 1940 Med. Record Number: [id number] Date of admission: 12/24/2013 Subjective: The patient [...] Electronically signed by: Shahrzad Flores, 01/01/2014 6:59 [facility] ing, Steven Avelar MD - 12/31/2013 11:05 AM PDT PATIENT NAME: Chaya Chan : 1940: AGE: 73 y.o. ADMISSION DATE: 12/24/2013 Hospital Day: Hospital Day: 8 Code Status: Full Code ABBY Cade CARDIOLOGY DAILY PROGRESS NOTE PRIMARY HOSPITAL PROBLEM: Coronary atherosclerosis of unspecified type of vessel, muscogee or graft CHIEF COMPLAINT: Nausea and vomiting [...] acetaminophen, bisacodyl, diphenhydrAMINE, diphenhydrAMINE, diphenhydramine, HYDROcodone-acetaminophen, HYDROcodone-acetaminophen, abcvmrrj-iynpxlvxt-c acitracin, ondansetron, ondansetron, phenol-menthol LABS Recent Labs [...] - 12/31/13 0712/31/13700 - 01/01/14 07 Shift 8664-3007 24 Hour Total 5104-9162 7569-1772 24 Hour Total I N T A [...] tion. Electronically signed by Steven Dyer MD, [facility] DATE/TIME: 12/31/2013 13:21 Tonia Patel [facility] - 12/31/2013 9:43 AM PDTDrs. Order received: [...] note might be different from the original. [facility] CARDIOTHORACIC SURGERY PROGRESS NOTE Pt. Name/Age/: Chaya Chan 73 y.o. 1940 Med. Record Number: [id number] Date of admission: 12/24/2013 POD # 7 [...] cardiology. Electronically signed by: CASSIE Pandya Physician Community Relations Police Lieutenant [facility] Cardiothoracic Surgery 12/31/2013 7:01 [facility] Addendum: I have reviewed the note [...] signed by: Constantine Barcenas M.D. CardioThoracic Surgery [facility] 12/31/2013 11:27 ing, Steven Avelar MD - 12/30/2013 11:48 AM PDT Cardiology progress NOTE [facility] 12/30/2013 Rounding Physician: ABBY Rowland Patient Name: Chaya Chan : 1940 Medical Record: [id number] Hospital Day: Hospital Day: 7 Code Status: Full Code Primary Hospital Problem: Coronary atherosclerosis of unspecified type of vessel, muscogee or graft ASSESSMENT AND PLAN CORONARY ARTERY [...] 0700 12/30/13 0701 - 12/31/13 0700 Shift 5040-4574 24 Hour Total 9458-7199 3231-4187 24 Hour Total I N T A [...] acetaminophen, bisacodyl, diphenhydrAMINE, diphenhydrAMINE, diphenhydramine, HYDROcodone-acetaminophen, HYDROcodone-acetaminophen, gvkxfsbd-kkshdetnu-j acitracin, ondansetron, ondansetron, phenol-menthol PHYSICAL EXAMINATION: GENERAL: [...] signed by: ABBY Rowland, DATE/TIME: 12/30/2013 11:48 [facility] Patient was personally examined, chart reviewed [...] cyanosis. Electronically signed by Steven Dyer MD, [facility] DATE/TIME: 12/30/2013 14:13 Constantine Almonte MD - 12/30/2013 7:10 AM PDT [facility] Constantine Barcenas MD PATIENT NAME: Chaya Chan : 1940: AGE: 73 y.o. ADMISSION DATE: 12/24/2013 DAILY PROGRESS NOTE 12/30/2013 6 Days Post-Op Procedure: Procedure(s) with comments: CORONARY ARTERY BYPASS GRAFT - CABG X4, WITH EVH - RIGHT AND LEFT SAPHENOUS VEIN,VOGEL Surgeon(s): Sj J NisMD Brandon higgins PA Torrey A Vail, PA ASSESSMENT: Byron weak and listless yesterday. Agreed and received [...] IV INFUSIONS: SUBJECTIVE: General: alert and oriented Byron weak and listless yesterday, only walked "a [...] signed by: Constantine Barcenas M.D. CardioThoracic Surgery [facility] 12/30/2013, 7:10 [...] arm or jaw. T/c to [facility]. Ordered EKG. Vitals as documented. Pt in afib rate in 120's. Color good. No diaphoresis. Blayne Montaño MD - 12/29/2013 9:38 AM PDTFormatting of this note mi ght be different from the original. Cardiology progress NOTE [facility] 12/29/2013 Rounding Physician: Blayne Alonso MD Patient Name: Chaya Chan : 1940 Medical Record: [id number] Hospital Day: Hospital Day: 6 Code Status: Full Code Primary Hospital Problem: Coronary atherosclerosis of unspecified type of vessel, muscogee or graft ASSESSMENT AND PLAN CORONARY ARTERY [...] 0700 12/29/13 0701 - 12/30/13 0700 Shift 9050-7227 24 Hour Total 3987-6715 4747-6817 24 Hour Total I N T A [...] acetaminophen, bisacodyl, diphenhydrAMINE, diphenhydrAMINE, diphenhydramine, HYDROcodone-acetaminophen, HYDROcodone-acetaminophen, ymmqcukd-rbxvuvewi-m acitracin, ondansetron, ondansetron, phenol-menthol PHYSICAL EXAMINATION: GENERAL: [...] by: Blayne Alonso MD, DATE/TIME: 12/29/2013 9:38 [facility] Edi Garrido MD - 12/29/2013 9:17 AM PDT [facility] CARDIOTHORACIC SURGERY PROGRESS NOTE Pt. Name/Age/: Chaya Chan 73 y.o. 1940 Med. Record Number: [id number] Date of admission: 12/24/2013 Procedure Coronary artery [...] days Electronically signed by: CASSIE Thomas Physician Community Relations Police Lieutenant [facility] Cardiothoracic Surgery 12/29/2013 9:17 [facility] Patient does not want transfusion. There is no clinical indication. Home soon Blayne Montaño MD - 12/28/2013 12:06 PM PDTFormatting of this note might be different from the origin al. Cardiology progress NOTE [facility] Cardiology 12/28/2013 Rounding Physician: ABBY Rowland Patient Name: Chaya Chan : 1940 Medical Record: [id number] Hospital Day: Hospital Day: 5 Code Status: Full Code Primary Hospital Problem: Coronary atherosclerosis of unspecified type of vessel, muscogee or graft ASSESSMENT AND PLAN CORONARY ARTERY [...] 12/28/13 0712/28/13 07 - 12/29/13 0700 Shift 3417-8275 24 Hour Total 7478-8004 8580-7912 24 Hour Total I N T A [...] acetaminophen, bisacodyl, diphenhydrAMINE, diphenhydrAMINE, diphenhydramine, HYDROcodone-acetaminophen, HYDROcodone-acetaminophen, msrecctt-ircmxqynn-f acitracin, ondansetron, ondansetron, phenol-menthol PHYSICAL EXAMINATION: GENERAL: [...] signed by: ABBY Rowland, DATE/TIME: 12/28/2013 12:06 [facility] Addendum: I have seen and examined [...] tranfusion - ef stable. Blayne Alonso MD [facility] Cardiology Edi Garrido MD - 12/28/2013 [...] Coronary atherosclerosis of unspecified type of vessel, muscogee or graft CHIEF COMPLAINT: "Better" today - [...] acetaminophen, bisacodyl, diphenhydrAMINE, diphenhydrAMINE, diphenhydramine, HYDROcodone-acetaminophen, HYDROcodone-acetaminophen, swzuzheh-mcpgeotam-f acitracin, ondansetron, ondansetron, phenol-menthol IMAGING: No results [...] - 12/27/13 0712/27/13700 - 12/28/13 0700 Shift 2792-3305 24 Hour Total 3042-1658 5471-4143 24 Hour Total I N T A K E P.O. 240 1440 240 240 P.O. 240 1320 240 240 Free Water Intake (mL) 120 Shift Total (mL/kg) 240 (3.3) 1440 (19.7) 240 (3.3) 240 (3.3) O U T P U T Urine (mL/kg/hr) 500 (0.6) 900 (0.5) 1100 1100 Shift Total (mL/kg) 500 (6.8) 900 (12.3) 1100 (15) 1100 (15) NET -260 953 -831 -864 Weight (kg) 73.1 73.1 73.1 73.1 73.1 [...] anticoagulation 2/2 significant anemia. Blayne Alonso MD [facility] Cardiology isco, Sj Campbell MD - 0 12/27/2013 7:10 AM PDT [facility] CARDIOTHORACIC SURGERY PROGRESS NOTE Pt. Name/Age/: Chaya Chan 73 y.o. 1940 Med. Record Number: [id number] Date of admission: 12/24/2013 POD # 3 [...] PT. Electronically signed by: CASSIE Pandya Physician Community Relations Police Lieutenant [facility] Cardiothoracic Surgery 12/27/2013 7:11 [facility] Cheerful and up in chair. Back [...] Coronary atherosclerosis of unspecified type of vessel, muscogee or graft CHIEF COMPLAINT: up in chair, [...] diphenhydrAMIN E, diphenhydrAMINE, diphenhydramine, HYDROcodone-acetaminophen, HYDROcodone-acetaminophen, n peieaun-aigdgesrq-jtcafzweyw, ondansetron, ondansetron, phenol-menthol LABS Recent Labs Basename [...] - 12/26/13 0712/26/13700 - 12/27/13 0700 Shift 2465-2882 24 Hour Total 24 Hour Total I [...] Ge MD 12/26/2013 17:55 Sonia Schultz AR OUTPATIENT PHYSICAL THERAPIST ASSISTANT - 12/26/2013 10:33 AM PDT [facility] Blood Sugar Management Progress Note Pt. Name/Age/: Chaya Chan 73 y.o. 1940 Date of admission: 12/24/2013 Hospitalized for Coronary atherosclerosis of unspecified type of vessel, muscogee or graft Admitting Physician: Sj Viera MD [...] by: ABBY Dean 12/26/2013 10:41 Diabetes team, [facility] Cristino Cade PA - 12/26/2013 7:27 AM PDTFormatting of this note might be different from the orig inal. [facility] Pt. Name/Age/: Chaya Chan 73 y.o. 1940 Med. Record Number: [id number] Date of admission: 12/24/2013 POD #2 Procedure: [...] lung is fairly clear. IMPRESSION: 1. Right project intern al jugular line with tip in [...] signed by: Cristino Monsivais PA-C Cardiothoracic Surgery [facility] [address], [address] [place] [address] 12/26/2013 7:27 [facility] Lottie Boone i, ARNP - 12/25/2013 4:17 PM PDTFormatting of this note might be different from the origi nal. PATIENT NAME: Chaya Chan : 1940: AGE: 73 y.o. ADMISSION DATE: 12/24/2013 Hospital Day: Hospital Day: 2 Code Status: Full Code ABBY Farnsworth CARDIOLOGY DAILY PROGRESS NOTE PRIMARY HOSPITAL PROBLEM: Coronary atherosclerosis of unspecified type of vessel, muscogee or graft CHIEF COMPLAINT: "Back hurts", "tired". [...] diphenhydrAMIN E, diphenhydrAMINE, diphenhydramine, HYDROcodone-acetaminophen, HYDROcodone-acetaminophen, n jvtrkeh-tghyxqgbo-ymxazxnrfn, ondansetron, ondansetron, phenol-menthol IMAGING: Xr Chest Ap [...] lung is fairly clear. IMPRESSION: 1. Right project intern al jugular line with tip in [...] - 12/25/13 0712/25/13700 - 12/26/13 0700 Shift 1844-5387 24 Hour Total 6209-1782 8705-1409 24 Hour Total I N T A [...] 50% SIMV10 550 PS8 P5 Additional Information DFS444 ETCO2=31 GLUCOSE, RESPIRATORY Collection Time 12/24/131924 Component [...] CABG OK for floor transfer Prior non NC in circ territory last week Very diffuse [...] | | | | | PDT | muscogee coronary | | | | | | [...] + + | [facility] | [address] | [place] [address] | | | [facility] | | | | | [...] + + | [facility] | [address] | [place] [address] | | | [facility] | | | | | [...] [facility] | [address] | [place] [address] | | | [facility] | | | | | [...] | TRACEMASTER | | Interval: msHeartrate: bpmP [place]: degQRS [place]: degT Wave [place]: | | | degI: 40 [place]: degT: 40 [place]: degT: 40 [place]: degST [place]: | | | degSeverity: - ABNORMAL ECG -INTERP: SINUS RHYTHMINTERP: LVH | | | WITH SECONDARY REPOLARIZATION ABNORMALITY | | |P [place]: deg | | |QRS [place]: deg | | |T Wave [place]: deg | | |I: 40 [place]: deg | | |T: 40 [place]: deg | | |T: 40 [place]: deg | | |ST [place]: deg | | |Severity: - ABNORMAL ECG [...] RÍOS | [address] | [place] [address] | [phone] | + + + + + CBC [...] + + | [facility] | [address] | [place] [address] | | | [facility] | | | | | [...] + + + | Glucose | 86Comment: Polish | 65 - 99 mg/dL | [facility] [...] + + | [facility] | [address] | [place] [address] | | | [facility] [...] | TRACEMASTER | | Interval: msHeartrate: bpmP [place]: degQRS [place]: degT Wave [place]: | | | degI: 40 [place]: degT: 40 [place]: degT: 40 [place]: degST [place]: | | | degSeverity: - DEFECTIVE ECG -INTERP: ALL 12 LEADS ARE MISSING | | |Heartrate: bpm | | |P [place]: deg | | |QRS [place]: deg | | |T Wave [place]: deg | | |I: 40 [place]: deg | | |T: 40 [place]: deg | | |T: 40 [place]: deg | | |ST [place]: deg | | |Severity: - DEFECTIVE ECG [...] + | [facility] | [address] [facility] [address]. | [place] [address] | [phone] | + + + + + Hemoglobin [...] + + | [facility] | [address] | [place] [address] | | | [facility] [...] | TRACEMASTER | | Interval: msHeartrate: bpmP [place]: degQRS [place]: degT Wave [place]: | | | degI: 40 [place]: degT: 40 [place]: degT: 40 [place]: degST [place]: | | | degSeverity: - BORDERLINE ECG -INTERP: SINUS RHYTHMINTERP: LEFT | | | AXIS DEVIATIONINTERP: BORDERLINE T ABNORMALITIES, LATERAL LEADS | | |P [place]: deg | | |QRS [place]: deg | | |T Wave [place]: deg | | |I: 40 [place]: deg | | |T: 40 [place]: deg | | |T: 40 [place]: deg | | |ST [place]: deg | | |Severity: - BORDERLINE ECG [...] | + + + + + | [facility] | [address] | [place] [address] | [phone] | + + + + + PRODUCT: RBC (12/29/2013 7:49 PM PDT) + + + + + + | Component | Value | Ref Range | Performed | Pathologist | | | | | At | Signature | + + + + + + | Product | RBC | | REFERENCE | | | Code | | | LAB [facility] | | | | | | [facility] | | | | | | [facility] | | | | | | [facility] | | | | | | [facility] | | + + + + + + | UNIT ID | [id number] | | REFERENCE | | | | | | LAB [facility] | | | | | | [facility] | | | | | | [facility] | | | | | | [facility] | | | | | | [facility] | | + + + + + + | UNIT ABO | B | | REFERENCE | | | | | | LAB [facility] | | | | | | [facility] | | | | | | [facility] | | | | | | [facility] | | | | | | [facility] | | + + + + + + | UNIT RH | NEG | | REFERENCE | | | | | | LAB [facility] | | | | | | [facility] | | | | | | [facility] | | | | | | [facility] | | | | | | [facility] | | + + + + + + | Unit Status | IS | | REFERENCE | | | | | | LAB [facility] | | | | | | [facility] | | | | | | [facility] | | | | | | [facility] | | | | | | [facility] | | + + + + + + + + | Specimen | + + | | + + + + + | Narrative | Performed At | + + + | Specimen Expiration Date: [id number] | REFERENCE LAB | | | [facility] | | | [facility] | | | [facility] | + + + + + + + + | Performing | Address | City/State/Zipcode | Phone Number | | Organization | | | | + + + + + | REFERENCE LAB | [address] | [place] [address] | [phone] | | [facility] [facility] | | | | | [facility] [...] | | | | | | LAB [facility] | | | | | | [facility] | | | | | | [facility] | | | | | | [facility] | | | | | | [facility] | | + + + + + + | Rh Type | Negative | | REFERENCE | | | | | | LAB [facility] | | | | | | [facility] | | | | | | [facility] | | | | | | [facility] | | | | | | [facility] | | + + + + + + | Antibody | NegativeComment: Patient | | REFERENCE | | | Screen | is remote crossmatch | | LAB [facility] | | | | eligible | | [...] Date: | REFERENCE LAB | | | [facility] [facility] | | | [facility] | | | [facility] | + + + + + + + + | Performing | Address | City/State/Zipcode | Phone Number | | Organization | | | | + + + + + | RE[facility]ENCE [facility] | [address] | [place] [address] | [phone] | | [facility] [place] [facility] | | | | | [facility] [...] + | [facility] | [address] [facility] [address] | [place] [address] | | | [facility] | [...] | TRACEMASTER | | Interval: msHeartrate: bpmP [place]: degQRS [place]: degT Wave [place]: | | | degI: 40 [place]: degT: 40 [place]: degT: 40 [place]: degST [place]: | | | degSeverity: - ABNORMAL ECG -INTERP: SINUS RHYTHMINTERP: LVH | | | WITH SECONDARY REPOLARIZATION ABNORMALITYINTERP: LEFT ATRIAL | | | ABNORMALITY | | |QRS [place]: deg | | |T Wave [place]: deg | | |I: 40 [place]: deg | | |T: 40 [place]: deg | | |T: 40 [place]: deg | | |ST [place]: deg | | |Severity: - ABNORMAL ECG [...] | + + + + + | [facility] | [address] | [place] [address] | [phone] | + + + + + ECG 12 lead (12/29/2013 10:59 AM PDT) + + | Specimen | + + | | + + + + + | Narrative | Performed At | + + + | RR Interval: | [facility] | | msP-R Interval: msQRSD Interval: msQT Interval: msQTC | TRAC[facility]ASTER | | Interval: msHeartrate: bpmP [place]: degQRS [place]: degT Wave [place]: | | | degI: 40 [place]: degT: 40 [place]: degT: 40 [place]: degST [place]: | | | degSeverity: - ABNORMAL ECG -INTERP: SINUS RHYTHMINTERP: | | | NONSPECIFIC T ABNORMALITIES, LATERAL LEADS | | |P [place]: deg | | |QRS [place]: deg | | |T Wave [place]: deg | | |I: 40 [place]: deg | | |T: 40 [place]: deg | | |T: 40 [place]: deg | | |ST [place]: deg | | |Severity: - ABNORMAL ECG [...] | + + + + + | [facility] | [address] | [place] [address] | [phone] | + + + + + Basic [...] + + + | Glucose | 93Comment: Polish | 65 - 99 mg/dL | [facility] [...] + + | [facility] | [address] | [place] [address] | | | [facility] | | | | | [...] + | [facility] | [address] [facility] [address] | [place] [address] | | | [facility] | [...] | TRACEMASTER | | Interval: msHeartrate: bpmP [place]: degQRS [place]: degT Wave [place]: | | | degI: 40 [place]: degT: 40 [place]: degT: 40 [place]: degST [place]: | | | degSeverity: - ABNORMAL ECG -INTERP: SINUS RHYTHMINTERP: LVH | | | WITH SECONDARY REPOLARIZATION ABNORMALITY | | |P [place]: deg | | |QRS [place]: deg | | |T Wave [place]: deg | | |I: 40 [place]: deg | | |T: 40 [place]: deg | | |T: 40 [place]: deg | | |ST [place]: deg | | |Severity: - ABNORMAL ECG [...] + + | [facility] | [address] | [place] [address] | [phone] | + + + + + ECG 12 lead (12/28/2013 11:09 AM PDT) + + | Specimen | + + | | + + + + + | Narrative | Performed At | + + + | RR Interval: | [facility] | | msP-R Interval: msQRSD Interval: msQT Interval: msQTC | TRAC[facility]ASTER | | Interval: msHeartrate: bpmP [place]: degQRS [place]: degT Wave [place]: | | | degI: 40 [place]: degT: 40 [place]: degT: 40 [place]: degST [place]: | | | degSeverity: - ABNORMAL ECG -INTERP: SINUS RHYTHMINTERP: | | | NONSPECIFIC INTRAVENTRICULAR CONDUCTION DELAYINTERP: LVH WITH | | | SECONDARY REPOLARIZATION ABNORMALITY | | |QRS [place]: deg | | |T Wave [place]: deg | | |I: 40 [place]: deg | | |T: 40 [place]: deg | | |T: 40 [place]: deg | | |ST [place]: deg | | |Severity: - ABNORMAL ECG [...] + | [facility] | [address] [facility] [address] | [place] [address] | [phone] | + + + + + ECG 12 lead (12/28/2013 5:45 AM PDT) + + | Specimen | + + | | + + + + + | Narrative | Performed At | + + + | RR Interval: | [facility] | | msP-R Interval: msQRSD Interval: msQT Interval: msQTC | TRAC[facility]ASTER | | Interval: msHeartrate: bpmP [place]: degQRS [place]: degT Wave [place]: | | | degI: 40 [place]: degT: 40 [place]: degT: 40 [place]: degST [place]: | | | degSeverity: - ABNORMAL ECG -INTERP: ATRIAL FIBRILLATION, V-RATE | | | 81-146INTERP: LEFT AXIS DEVIATIONINTERP: LVH WITH SECONDARY | | | REPOLARIZATION ABNORMALITY | | |QRS [place]: deg | | |T Wave [place]: deg | | |I: 40 [place]: deg | | |T: 40 [place]: deg | | |T: 40 [place]: deg | | |ST [place]: deg | | |Severity: - ABNORMAL ECG [...] + | BASIL TRACEMASTER | [address] | [place] [address] | [phone] | + + + + + CBC [...] + | ALEXE RUIZ | [address] | [place] [address] | | | [facility] | | | | | [...] + + | Glucose | 116 (H)Comment: Polish | 65 - 99 mg/dL | [facility] | | | | Diabetes Association | [...] + + | BLADEJOHNRosio MELCHOR | [address] | [place] [address] | | | [facility] | | | | | [...] | TRACEMASTER | | Interval: msHeartrate: bpmP [place]: degQRS [place]: degT Wave [place]: | | | degI: 40 [place]: degT: 40 [place]: degT: 40 [place]: degST [place]: | | | degSeverity: - ABNORMAL ECG -INTERP: SINUS RHYTHMINTERP: LEFT | | | AXIS DEVIATIONINTERP: LEFT VENTRICULAR HYPERTROPHY | | |P [place]: deg | | |QRS [place]: deg | | |T Wave [place]: deg | | |I: 40 [place]: deg | | |T: 40 [place]: deg | | |T: 40 [place]: deg | | |ST [place]: deg | | |Severity: - ABNORMAL ECG [...] + + | WAMT TRACEMASTER | [address] | [place] [address] | [phone] | + + + + + ECG 12 lead (12/27/2013 7:56 AM PDT) + + | Specimen | + + | | + + + + + | Narrative | Performed At | + + + | RR Interval: | WAMT | | msP-R Interval: msQRSD Interval: msQT Interval: msQTC | TRACEMASTER | | Interval: msHeartrate: bpmP [place]: degQRS [place]: degT Wave [place]: | | | degI: 40 [place]: degT: 40 [place]: degT: 40 [place]: degST [place]: | | | degSeverity: - ABNORMAL ECG -INTERP: ATRIAL FIBRILLATIONINTERP: | | | LEFT AXIS DEVIATIONINTERP: LVH WITH SECONDARY REPOLARIZATION | | | ABNORMALITY | | |QRS [place]: deg | | |T Wave [place]: deg | | |I: 40 [place]: deg | | |T: 40 [place]: deg | | |T: 40 [place]: deg | | |ST [place]: deg | | |Severity: - ABNORMAL ECG [...] + + | WAMT TRACEMASTER | [address] | [place] [address] | [phone] | + + + + + POC [...] [address] | [place] [address] | | | [facility] | | | | | [...] + + | BLADEJOHNRosio MELCHOR | [address] | [place] [address] | | | [facility] | | | | | [...] + + | Glucose | 125 (H)Comment: Polish | 65 - 99 mg/dL | [facility] [...] + | ALEXE SACRED | [address] | [place] [address] | | | [facility] [...] + | PROVIDENCE SACRED | [address] | [place] [address] | | | [facility] [...] + | MONIKA MELCHOR | [address] | [place] [address] | | | [facility] | | | | | [...] + | PROVIDENCE SACRED | [address] | [place] [address] | | | [facility] | [...] + + | MONIKA SACRED | [address] | [place] [address] | | | [facility] | [...] SACRED | [address] | [place] [address] | | | [facility] | | | | | [...] + + | MONIKA MELCHOR | [address] | [place] [address] | | | [facility] | | | | | [...] + | PROVIDENCE SACRED | [address] | [place] [address] | | | [facility] | | | | | [...] + | PROVIDEJOHNE SACRED | [address] | [place] [address] | | | [facility] [...] + + | MONIKA MELCHOR | [address] | [place] [address] | | | [facility] | | | | | [...] + | PROVIDENCE SACRED | [address] | [place] [address] | | | [facility] | [...] [address] | [place] [address] | | | [facility] | | | | | [...] [address] | [place] [address] | | | [facility] | | | | | [...] + + | MONIKA MELCHOR | [address] | [place] [address] | | | [facility] | | | | | [...] + | PROVIDENCE SACRED | [address] | [place] [address] | | | [facility] | [...] + + | MONIKA SACRED | [address] | [place] [address] | | | [facility] [...] + + | MONIKA MELCHOR | [address] | [place] [address] | | | [facility] [...] + | PROVIDENCE SACRED | [address] | [place] [address] | | | [facility] | [...] [address] | [place] [address] | | | [facility] [...] + | MONIKA MELCHOR | [address] | [place] [address] | | | [facility] | | | | | [...] + + | MONIKA MELCHOR | [address] | [place] [address] | | | [facility] | | | | | [...] + | PROVIDENCE SACRED | [address] | [place] [address] | | | [facility] | [...] [address] | [place] [address] | | | [facility] [...] + + | MONIKA MELCHOR | [address] | [place] [address] | | | [facility] | | | | | [...] + + | MONIKA SACRCAYETANO | [address] | [place] [address] | | | [facility] | [...] [address] | [place] [address] | | | [facility] | | | | | [...] + | MONIKA MELCHOR | [address] | [place] [address] | | | [facility] | | | | | [...] + + | MONIKA MELCHOR | [address] | [place] [address] | | | [facility] | [...] [address] | [place] [address] | | | [facility] | | | | | [...] | TRACEMASTER | | Interval: msHeartrate: bpmP [place]: degQRS [place]: degT Wave [place]: | | | degI: 40 [place]: degT: 40 [place]: degT: 40 [place]: degST [place]: | | | degSeverity: - ABNORMAL ECG -INTERP: SINUS RHYTHMINTERP: LEFT | | | VENTRICULAR HYPERTROPHYINTERP: ANTERIOR ST ELEVATION, PROBABLY DUE | | | TO LVH | | |QRS [place]: deg | | |T Wave [place]: deg | | |I: 40 [place]: deg | | |T: 40 [place]: deg | | |T: 40 [place]: deg | | |ST [place]: deg | | |Severity: - ABNORMAL ECG [...] + + | WAMT MICHOACANO | [address] | [place] [address] | [phone] | + + + + + XR Chest AP Portable (12/25/2013 4:18 AM PDT) + + | Specimen | + + | | + + + + + | Narrative | Performed At | + + + | CHEST, AP PORTABLE CLINICAL INFORMATION: Post open heart | [facility] | | with a chest [...] + + | [facility] | [facility], [address] | [place] [address] | [phone] | | | Shyann | | | [...] + + | MONIKA MELCHOR | [address] | [place] [address] | | | [facility] | [...] + + | Glucose | 122 (H)Comment: Polish | 65 - 99 mg/dL | [facility] | | | | Diabetes Association [...] [address] | [place] [address] | | | [facility] [...] + + | MONIKA MELCHOR | [address] | [place] [address] | | | [facility] | | | | | [...] + + | PROVIDENCE SACRED | [address] | [place] [address] | | | [facility] | [...] + | PROVIDENCE SACRED | [address] | [place] [address] | | | [facility] [...] + | BLADEJOHNRosio MELCHOR | [address] | [place] [address] | | | [facility] | | | | | [...] + | PROVIDENCE SACRED | [address] | [place] [address] | | | [facility] | [...] + + | PROVIDENCE SACRED | [address] | [place] [address] | | | [facility] | | | | | [...] + + | MONIKA MELCHOR | [address] | [place] [address] | | | [facility] | | | | | [...] + | PROVIDENCE SACRED | [address] | [place] [address] | | | [facility] | [...] + + | MONIKA MELCHOR | [address] | [place] [address] | | | [facility] | | | | | [...] | TRACEMASTER | | Interval: msHeartrate: bpmP [place]: degQRS [place]: degT [place]: | | | degI: 40 [place]: degT: 40 [place]: degT: 40 [place]: degST [place]: | | | degSeverity: - ABNORMAL ECG -INTERP: SINUS RHYTHMINTERP: | | | PROBABLE LVH WITH SECONDARY REPOL ABNRM | | |P [place]: deg | | |QRS [place]: deg | | |T Wave [place]: deg | | |I: 40 [place]: deg | | |T: 40 [place]: deg | | |T: 40 [place]: deg | | |ST [place]: deg | | |Severity: - ABNORMAL ECG [...] + + | WAMT TRACEGRECIASTER | [address] | [place] [address] | [phone] | + + + + + Potassium [...] + + | BLADEGRETCHEN MELCHOR | [address] | [place] [address] | | | [facility] | | | | | [...] + + | PROVIDENCE SACRED | [address] | [place] [address] | | | [facility] | [...] [address] | [place] [address] | | | [facility] | [...] + + | BLADEGRETCHEN MELCHOR | [address] | [place] [address] | | | [facility] | | | | | [...] + + + + | Additional | [id number] | | [facility] | | | [...] + + | [facility] SACRED | [address] | [place] [address] | | | [facility] [...] + + | PROVIDEJOHNE SACRCAYETANO | [address] | [place] [address] | | | [facility] | | | | | LABORATORY | | | | + + + + + XR Chest AP Portable (12/24/2013 7:11 PM PDT) + + | Specimen | + + | | + + + + + | Narrative | Performed At | + + + | CHEST CLINICAL INFORMATION: Post operative line | [facility] | | placement, instrument verification. COMPARISON: [...] + + | [facility] | [facility], [address] | [place] [address] | [phone] | | | Shyann | | | [...] + + | PROVIDENCE SACRED | [address] | [place] [address] | | | [facility] | [...] + + | MONIKA MELCHOR | [address] | [place] [address] | | | [facility] | | | | | [...] + + | ALEXE SACRED | [address] | [place] [address] | | | [facility] | [...] + + | MONIKA MELCHOR | [address] | [place] [address] | | | [facility] | | | | | [...] + + | ALEXE SACRED | [address] | [place] [address] | | | [facility] | [...] + + | MONIKA MELCHOR | [address] | [place] [address] | | | [facility] | | | | | [...] + + | PROVIDEJOHNE RUIZ | [address] | [place] [address] | | | [facility] [...] + | MONIKA MELCHOR | [address] | [place] [address] | | | [facility] | | | | | [...] + + | ALEXE SACRCAYETANO | [address] | [place] [address] | | | [facility] | | | | | [...] + | PROVIDEJOHNE SACRED | [address] | [place] [address] | | | [facility] | [...] + + | MONIKA MELCHOR | [address] | [place] [address] | | | [facility] | | | | | [...] + + | MONIKA MELCHOR | [address] | [place] [address] | | | [facility] | | | | | [...] SACRED | [address] | [place] [address] | | | [facility] | [...] + + | PROVIDENCE SACRED | [address] | [place] [address] | | | [facility] [...] + + | MONIKA SACRCAYETANO | [address] | [place] [address] | | | [facility] | [...] + | MONIKA SACRED | [address] | [place] [address] | | | [facility] | [...] + + | MONIKA MELCHOR | [address] | [place] [address] | | | [facility] | | | | | [...] | HEART | | | | JOEL Tellez | | MEDICAL | | | | [...] + + | MONIKA MELCHOR | [address] | [place] [address] | | | [facility] | | | | | [...] + + | PROVIDENCE SACRED | [address] | [place] [address] | | | [facility] | [...] + + | MONIKA MELCHOR | [address] | [place] [address] | | | [facility] [...] + | PROVIDEJOHNE SACRED | [address] | [place] [address] | | | [facility] | | | | | LABORATORY | | | | + + + + + documented in this encounter Visit Diagnoses + + | Diagnosis | + + | Coronary atherosclerosis of [place] coronary artery | + + documented in [...]
--- OUTSIDE RECORDS SUMMARY | ~2019-07-30 | XMS | Encounter Summary ---
Demographics + + + | Address | [address] | | | [place] [address] | + + + | Home Phone [...] | | + + +---------+ + | Francse Dustin | ECON | Unknown | | + + +---------+ + Care Team Providers + +------+ + | Care Web Development Instructor Name | Role | Phone | + +------+ + PCP | Unavailable | + +------+ + Encounter Details +--------+ + + + + | Date | Type | Department | Care Team | Description | +--------+ + + + + | 06// | Orders Only | BLADEJOHNE RUDI | Gerardo, | | | 2010 | | [facility] | Erum Ragland MD [address] | | | | | [address] | [address] | | | | | [address] [place] | [address] [place] | | | | | [address] | [address] | | | | | [phone] | | | +--------+ + + + [...] | HISTORICAL LAB PANEL | Routin | 06/27/2011 | | Results for this | | RESULT | e | | | procedure are in the | | | | | | results section. | + +--------+ + + + | HISTORICAL LAB PANEL | Routin | 03/24/2011 | | Results for this | | RESULT | e | | | procedure are in the | | | | | | results section. | + +--------+ + + + | HISTORICAL LAB PANEL | Routin | 12/20/2010 | | Results for this | | RESULT | e | | | procedure are in the | | | | | | results section. | + +--------+ + + + documented in this encounter Results HISTORICAL LAB PANEL RESULT (06/27/2011) + +-------+ + + + | Component | Value | Ref Range | Performed | Pathologist | | | | | At | Signature | + +-------+ + + + | Albumin/Viviane | 1.2 | | EXTERNAL | | | bulin Ratio | | | LAB | | + +-------+ + + + | Albumin | 4.3 | | EXTERNAL | | | | | | LAB | | + +-------+ + + + | Alkaline | 83 | | EXTERNAL | | | Phosphatase | | | LAB | | + +-------+ + + + | ALT | 29 | | EXTERNAL | | | | | | LAB | | + +-------+ + + + | AST | 21 | | EXTERNAL | | | | | | LAB | | + +-------+ + + + | Anion Gap | 11 | | EXTERNAL | | | | | | LAB | | + +-------+ + + + | Bilirubin | 0.6 | | EXTERNAL | | | Total | | | LAB | | + +-------+ + + + | B-TYPE | NULL | | EXTERNAL | | | NATRIURETIC | | | LAB | | | PEPTIDE | | | | | + +-------+ + + + | BUN | 19 | | EXTERNAL | | | | | | LAB | | + +-------+ + + + | BUN/Creatin | NULL | | EXTERNAL | | | ine Ratio | | | LAB | | + +-------+ + + + | Calcium | 9.9 | | EXTERNAL | | | | | | LAB | | + +-------+ + + + | Cholesterol | 181 | | EXTERNAL | | | | | | LAB | | + +-------+ + + + | Cl | 98 | | EXTERNAL | | | | | | LAB | | + +-------+ + + + | CO2 | 29 | | EXTERNAL | | | | | | LAB | | + +-------+ + + + | Creatinine | 1 | | EXTERNAL | | | | | | LAB | | + +-------+ + + + | GFR | 58 | | EXTERNAL | | | ESTIMATE | | | LAB | | | (REF) | | | | | + +-------+ + + + | Globulin | 3.5 | | EXTERNAL | | | | | | LAB | | + +-------+ + + + | Glucose | 92 | | EXTERNAL | | | | | | LAB | | + +-------+ + + + | Hct | 39.4 | | EXTERNAL | | | | | | LAB | | + +-------+ + + + | HDL | 44 | | EXTERNAL | | | | | | LAB | | + +-------+ + + + | Hgb | 13.1 | | EXTERNAL | | | | | | LAB | | + +-------+ + + + | CRP, High | NULL | | EXTERNAL | | | Sensitive | | | LAB | | + +-------+ + + + | K | 4.5 | | EXTERNAL | | | | | | LAB | | + +-------+ + + + | LDL | 100 | | EXTERNAL | | | Cholesterol | | | LAB | | + +-------+ + + + | MCH | 31.6 | | EXTERNAL | | | | | | LAB | | + +-------+ + + + | MCHC | 33.1 | | EXTERNAL | | | | | | LAB | | + +-------+ + + + | MCV | 95 | | EXTERNAL | | | | | | LAB | | + +-------+ + + + | Na | 138 | | EXTERNAL | | | | | | LAB | | + +-------+ + + + | Platelet | 188 | | EXTERNAL | | | Count | | | LAB | | + +-------+ + + + | Total | 7.8 | | EXTERNAL | | | Protein | | | LAB | | + +-------+ + + + | RBC | 4.13 | | EXTERNAL | | | | | | LAB | | + +-------+ + + + | RDW-CV | 13.7 | | EXTERNAL | | | | | | LAB | | + +-------+ + + + | Triglycerid | 182 | | EXTERNAL | | | es | | | LAB | | + +-------+ + + + | WBC | 5.8 | | EXTERNAL | | | | [...] +---------+ + + HISTORICAL LAB PANEL RESULT (03/24/2011) + +-------+ + + + | Component | Value | Ref Range | Performed | Pathologist | | | | | At | Signature | + +-------+ + + + | FT4 | 0.85 | | EXTERNAL | | | | | | LAB | | + +-------+ + + + | TSH | 3.7 | | EXTERNAL | | | | [...] +---------+ + + HISTORICAL LAB PANEL RESULT (12/20/2010) + +-------+ + + + | Component | Value | Ref Range | Performed | Pathologist | | | | | At | Signature | + +-------+ + + + | Albumin/Viviane | 1.2 | | EXTERNAL | | | bulin Ratio | | | LAB | | + +-------+ + + + | Albumin | 4.3 | | EXTERNAL | | | | | | LAB | | + +-------+ + + + | Alkaline | 89 | | EXTERNAL | | | Phosphatase | | | LAB | | + +-------+ + + + | ALT | 41 | | EXTERNAL | | | | | | LAB | | + +-------+ + + + | AST | 37 | | EXTERNAL | | | | | | LAB | | + +-------+ + + + | Anion Gap | 9 | | EXTERNAL | | | | | | LAB | | + +-------+ + + + | Bilirubin | 0.5 | | EXTERNAL | | | Total | | | LAB | | + +-------+ + + + | BUN | 13 | | EXTERNAL | | | | | | LAB | | + +-------+ + + + | Calcium | 9.4 | | EXTERNAL | | | | | | LAB | | + +-------+ + + + | HDL-C | 3 | | EXTERNAL | | | | | | LAB | | + +-------+ + + + | Cholesterol | 185 | | EXTERNAL | | | | | | LAB | | + +-------+ + + + | CK TOTAL | 415 | | EXTERNAL | | | | | | LAB | | + +-------+ + + + | Cl | 101 | | EXTERNAL | | | | | | LAB | | + +-------+ + + + | CO2 | 28 | | EXTERNAL | | | | | | LAB | | + +-------+ + + + | Creatinine | 1.2 | | EXTERNAL | | | | | | LAB | | + +-------+ + + + | FT4 | 0.89 | | EXTERNAL | | | | | | LAB | | + +-------+ + + + | GFR | 47 | | EXTERNAL | | | ESTIMATE | | | LAB | | | (REF) | | | | | + +-------+ + + + | Globulin | 3.5 | | EXTERNAL | | | | | | LAB | | + +-------+ + + + | Glucose | 94 | | EXTERNAL | | | | | | LAB | | + +-------+ + + + | Absolute | 3.1 | | EXTERNAL | | | Granulocyte | | | LAB | | | s | | | | | + +-------+ + + + | % | 75.1 | | EXTERNAL | | | Granulocyte | | | LAB | | | s | | | | | + +-------+ + + + | Hct | 33.9 | | EXTERNAL | | | | | | LAB | | + +-------+ + + + | HDL | 66 | | EXTERNAL | | | | | | LAB | | + +-------+ + + + | Hgb | 11.7 | | EXTERNAL | | | | | | LAB | | + +-------+ + + + | K | 4.6 | | EXTERNAL | | | | | | LAB | | + +-------+ + + + | LDL | 101 | | EXTERNAL | | | Cholesterol | | | LAB | | + +-------+ + + + | LYMPH % | 20.9 | | EXTERNAL | | | | | | LAB | | + +-------+ + + + | Absolute | 0.8 | | EXTERNAL | | | Lymphocytes | | | LAB | | + +-------+ + + + | MCH | 32 | | EXTERNAL | | | | | | LAB | | + +-------+ + + + | MCHC | 34.5 | | EXTERNAL | | | | | | LAB | | + +-------+ + + + | MCV | 93 | | EXTERNAL | | | | | | LAB | | + +-------+ + + + | % Monocytes | 4 | | EXTERNAL | | | | | | LAB | | + +-------+ + + + | Absolute | 0.1 | | EXTERNAL | | | Monocytes | | | LAB | | + +-------+ + + + | MPV | 9.2 | | EXTERNAL | | | | | | LAB | | + +-------+ + + + | Na | 138 | | EXTERNAL | | | | | | LAB | | + +-------+ + + + | Platelet | 190 | | EXTERNAL | | | Count | | | LAB | | + +-------+ + + + | Total | 7.8 | | EXTERNAL | | | Protein | | | LAB | | + +-------+ + + + | RBC | 3.66 | | EXTERNAL | | | | | | LAB | | + +-------+ + + + | RDW-CV | 14.1 | | EXTERNAL | | | | | | LAB | | + +-------+ + + + | Triglycerid | 85 | | EXTERNAL | | | es | | | LAB | | + +-------+ + + + | TSH | 6.45 | | EXTERNAL | | | | | | LAB | | + +-------+ + + + | WBC | 4 | | EXTERNAL | | | | [...]
--- OUTSIDE RECORDS SUMMARY | ~2019-07-30 | XMS | Encounter Summary ---
Demographics + + + | Address | [address] | | | [place] [address] | + + + | Home Phone | | + + + | Preferred Language | Unknown | + + + | Marital Status | | + + + | Pentecostal Affiliation | 1001 | + + + | Race | Unknown | + + + | Ethnic Group | Unknown | + + + Author + + + | Author | [facility] | | | and [place] | + + + | Organization | [facility] | [...] Team Providers + +------+ + | Care Java User Interface Developer Name | Role | Phone | [...] on | [employer] | [address] | | | | | Internal Medicine | [place] [address] | | | | | [address] [facility] | [phone] | | | | | [place], [place] | | | | | | [address] | | | | | | [phone] | | | +--------+ + + + [...] Della Vitale RN - 02/10/2014 2:39 PM [id number] [facility] nurse Renetta called today and said [...]
--- OUTSIDE RECORDS SUMMARY | ~2019-07-30 | XMS | Encounter Summary ---
Demographics + + + | Address | [address] | | | [place] [address] | + + + | Home Phone | | + + + | Preferred Language | Unknown | + + + | Marital Status | | + + + | Yarsani Affiliation | 1001 | + + + [...] Team Providers + +------+ + | Care Customer Service Consultant Name | Role | Phone | [...] sleep | | 2015 | Visit | [facility] | [address] | apnea (Primary Dx); | | | | Internal Medicine | [place] [address] | Chronic diastolic | | | | [address] | [phone] | CHF (congestive | | | | [place], [place] | | heart failure), NYHA | | | | [address] | | class 2 (HCC); | | | | [phone] | | Paroxysmal atrial | | | [...] types of CPAP. Your doctor or CPAP assessment technician will help you decide whic h [...] as body position, sleep stage, and snoring. 5194-7466 [employer]. [address] [place] [address]. All righ ts reserved. This information is not intended as a substitute for professional medical care. Always follow your healthcare professional's instructions. documented in this encounter Progress Notes Doug García MD - 09/08/2014 6:01 PM PSTFormatting of this note might be different from t eleonora original. [facility] CLINIC NOTE Patient Name: Chaya Chan 73 y.o. Date of : 1940 MR Number: [id number] Date of Visit: 09/08/2014 Patient Active Problem [...] Electronically signed by: Doug García 09/08/2014 18:01 [facility] documented in this encou nter [...] + + | ALEJANDRA SHEI[facility] | [address] [facility] | [place] [address] | | | [facility] | | | | | LABORATORY [...] [facility] | | | | | | [place] | | | | | [facility] [...] | + + + + + | [facility] | [address] [facility] | [place] [address] | | | [facility] | | | | | LABORATORY [...] | | | | uIU/mL | [facility] | | | | | | [facility] [...] + + + + + | ALEJANDRA [facility] | [address] [facility] | [place] [address] | | | [facility] | | | | | LABORATORY [...] + | ALEJANDRA SHEIKH | [address] [facility] | [place] [address] | | | [facility] | | | | | LABORATORY [...] + + + + + | ALEJANDRA [facility] | [address] [facility] | [place] [address] | | | [facility] | | | | | LABORATORY [...] of unspecified type of vessel, | | [place] or graft | + + | Benign essential hypertension Essential hypertension, benign | + + | Restless legs syndrome (RLS) | + + | Benign paroxysmal positional vertigo, bilateral | + + | Hypothyroidism Unspecified hypothyroidism | + + | Hyperlipidemia Other and unspecified hyperlipidemia | + + documented in this encounter
--- OUTSIDE RECORDS SUMMARY | ~2019-07-30 | XMS | Encounter Summary ---
Demographics + + + | Address | [address] | | | [place] [address] | + + + | Home Phone [...] Team Providers + +------+ + | Care Beef Ribber Name | Role | Phone | + [...] Rehabilitatio | paroxysmal | [address] | | | | n | positional | [address] | [place], [place] | | | | | vertigo, | Ave. | [address] | | | | | unspecified | [place], [place] | Phone: | | | | | laterality | [address] | [phone] | | | | | | Phone: | Fax: | | | | | | [phone] | [phone] | | | | | | Fax: | | | | | | | [phone] | | +--------+ + + + + + Encounter Details +--------+ + + + + | Date | Type | Department | Care Team | Description | +--------+ + + + + | 09/01/ | Hospital | [facility] | Doug García MD | Benign paroxysmal | | 2018 | Encounter | [facility] | [address] | positional vertigo, | | | | PHYSICAL THERAPY | [place] [address] | unspecified | | | | [address] | [phone] | laterality | | | | [place], [place] | | | | | | [address] | Satish Messer, PT | | | | | [phone] | [address] | | | | | | [place], [place] | | | | | | [address] | | | | | | [phone] | | | | | | | [...] impaired, limited or restricted Treatment Plan/Interventions PT [id number] - Therapeutic [id number] - Neuromuscular Txfmxhtzxow46006 - Gait Yovani [id number] - Therapeutic Yslmlmduvo97040 - Self Care/Home Zrqvxhpwum08549 - Canalith Repositi oning Electronically signed by: Satish Izaguirre PT, 09/01/2017 16:00 Patient Name: Chaya Chan/: 1940/ Satish Brasher, PT - 0 09/01/2017 11:25 AM PST [facility] PHYSICAL THERAPY [address] [place] [id number] Physical Therapy Initial Assessment Date: 09/01/2017 Patient [...] failure) (HCC) Coronary artery disease Hyperlipidemia Hypertension MD (myocardial infarction) Restless legs syndrome (RLS) 12/30/2010 Thyroid disease Past Surgical History: Procedure Laterality Date CARDIAC CATHERIZATION Right 08/25/2017 Procedure: CV LHC; Surgeon: Fly Christianson MD; Location: [facility] CV LAB CARDIAC CATHERIZATION Right 08/25/2017 Procedure: CV Graft Angio; Surgeon: Fly Christianson MD; Location: [facility] CV LAB CARDIAC CATHERIZATION Right 08/25/2017 Procedure: CV Cor Angio; Surgeon: Fly Christianson MD; Location: [facility] CV LAB CARDIAC CATHERIZATION Right 08/25/2017 Procedure: CV LV/RV; Surgeon: Fly Christianson MD; Location: [facility] CV LAB CORONARY ANGIOPLASTY CORONARY ARTERY BYPASS GRAFT 12/24/2013 CABG X4, WITH EVH - RIGHT AND LEFT SAPHENOUS VEIN,VOGEL ; Laterality: N/A; Surgeon: Golden Viera MD; Location: [facility] MAIN OR OTHER SURGICAL HISTORY 12/17/2013 Laterality: N/A; Surgeon: Erum Gerardo MD; Location: [facility] CARDIOVASCULAR LAB CANAL LOCK TENDER CHIEF OPERATOR Right 08/25/2017 Procedure: CV Thoracic Aorta Angiogram; Surgeon: Fly Christianson MD; Location: [facility] CV L AB STENT PLACEMENT ADDITIONAL VESS TONSILLECTOMY Family History Problem Relation Age of Onset Stroke Mother Heart disease Neg Hx Developmental History Allergies Allergen Reactions Iodine Anaphylaxis Red Dye Other (See Comments) "angina", numb lips Diltiazem Hcl Latex Lidocaine Prior Treatment: None within the last sixty days Rehab Precautions Flowsheet Row [facility] PT EVALUATION from 09/01/2017 in [facility] PHY SICAL THERAPY Rehab Precautions Precautions [...] the stairs?: 100 3. bend over and picking table worker a slipper from the front of a [...] 09/01/2017 Certification To: 10/27/2017 Treatment Plan/Interventions PT [id number] - Therapeutic [id number] - Neuromuscular Qczypgyorbk68849 - Gait Yovani [id number] - Therapeutic Xgusqelhkb19656 - Self Care/Home Khrhvynlsv51417 - Canalith Repositi oning Patient and/or family has indicated understanding of treatment needs and actively particip ated in the creation of this plan for care. Electronically signed by: Satish Izaguirre PT, 09/01/2017 16:00 Patient Name: Chaya Chan/: 1940/ documented in [...]
--- OUTSIDE RECORDS SUMMARY | ~2019-07-30 | XMS | Encounter Summary ---
Demographics + + + | Address | [address] | | | [place] [address] | + + + | Home Phone | | + + + | Preferred Language | Unknown | + + + | Marital Status | | + + + | Hindu Affiliation | 1001 | + + + | Race | Unknown | + + + | Ethnic Group | Unknown | + + + Author + + + | Author | [facility] | | | and [place] | + + + | Organization | [facility] | | | [...] Team Providers + +------+ + | Care Member Certification Manager Name | Role | Phone | [...] [facility] | [place] [address] | | | | | [facility] | [place] [address] | | | | | [address] | [phone] | | | | | [place], [place] | | | | | | [address] | | | | | | [phone] | | | +--------+--------+ + + + [...]
--- OUTSIDE RECORDS SUMMARY | ~2019-07-30 | XMS | Encounter Summary ---
Demographics + + + | Address | [address] | | | [place] [address] | + + + | Home Phone [...] Team Providers + +------+ + | Care Linoleum Installer Name | Role | Phone | + [...] | | [facility] [address] | [address] | chronic diastolic | | | | [address] | | CHF with afib, RVR | | | | [phone] | | and pleural effusion | | [...]
--- OUTSIDE RECORDS SUMMARY | ~2019-07-30 | XMS | Encounter Summary ---
Demographics + + + | Address | [address] | | | [place] [address] | + + + | Home Phone [...] Team Providers + +------+ + | Care Scientific Research Manager Name | Role | Phone | + +------+ + | Doug García MD | PCP | | + +------+ + Encounter Details +--------+ + + + + | Date | Type | Department | Care Team | Description | +--------+ + + + + | 02/25/ | Hospital | [facility] [place] | Doug García MD | Dizziness of unknown | | 2014 | Encounter | [facility] | [address] | cause; | | | | [address] | [place] [address] | Hypothyroidism | | | | [place] | [phone] | | | | | [place], [place] | | | | | | [address] | | | | | | [phone] | | | +--------+ + + + [...] + + | [facility] | [address] | [place] [address] | | | [facility] | | | | | LABORATORY [...] + | [facility] | [address] [facility] | [place] [address] | | | [facility] | | [...] + | [facility]LEXE KORI | [address] [facility] | [place] [address] | | | [facility] | | [...] 34 (L)Comment: GFR <60: | >60 | [facility] | | | GFR | Chronic kidney disease, | ml/min/1.73m2 | [facility] | | | | if found over a 3 month | | [facility] | | | | period.GFR <15: Kidney [...] + + | [facility] | [address] | [place] [address] | | | [facility] | | | | | LABORATORY [...] + | [facility] SHEIKH | [address] [facility] | [place] [address] | | | [facility] | | | | | LABORATORY | | | | + + + + + documented in this encounter Visit Diagnoses + + | Diagnosis | + + | Dizziness of unknown cause | + + | Hypothyroidism Unspecified hypothyroidism | + + documented in this encounter"
--- OUTSIDE RECORDS SUMMARY | ~2019-07-30 | XMS | Encounter Summary ---
Demographics + + + | Address | [address] | | | [place] [address] | + + + | Home Phone | | + + + | Preferred Language | Unknown | + + + | Marital Status | | + + + | Moravian Affiliation | 1001 | + + + | Race | Unknown | + + + | Ethnic Group | Unknown | + + + Author + + + | Author | [facility] | | | and [place] | + + + | Organization | [facility] | | [...] Team Providers + +------+ + | Care Freight Inspector Name | Role | Phone | + +------+ + | Doug García MD | PCP | | + +------+ + Encounter Details +--------+ + + + + | Date | Type | Department | Care Team | Description | +--------+ + + + + | 07/29/ | Orders Only | [facility] | Sonia Akers, PHYSICS DEPARTMENT CHAIR | | | 2019 | | [facility] | | | | | | FUNCTION [address] | | | | | | [place], | | | | | | [place] [address] | | | | | | [phone] | | | +--------+ + + + [...]
--- OUTSIDE RECORDS SUMMARY | ~2019-07-30 | XMS | Encounter Summary ---
Demographics + + + | Address | [address] | | | [place] [address] | + + + | Home Phone | | + + + | Preferred Language | Unknown | + + + | Marital Status | | + + + | Sabianism Affiliation | 1001 | + + + | Race | Unknown | + + + | Ethnic Group | Unknown | + + + Author + + + | Author | [facility] | | | and [place] | + + + | Organization | [facility] | | | [...] Team Providers + +------+ + | Care Spray Rig Operator Name | Role | Phone | + +------+ + PCP | Unavailable | + +------+ + Reason for Referral Evaluate & Treat (Routine) +--------+ + + + + + | Status | Reason | Specialty | Diagnoses / | Referred By | Referred To | | | | | Procedures | Contact | Contact | +--------+ + + + + + | Closed | Specialty | Cardiology / | Diagnoses | John Paul, | Marlena, | | | Services | Internal | CAD | Charito | MD Donald | | | Required | Medicine | (coronary | Diane, SP[facility] G[facility]IN DRYER | [address] | | | | | artery | [address] | | | | | disease) | [place] | [place], | | | | | Procedures | [place], [place] | [place] [address] | | | | | Eval & Treat | [address] | Phone: | | | | | - MMV | Phone: | [phone] | | | | | | [phone] | Fax: | | | | | | Fax: | [phone] | | | | | | [phone] | | +--------+ + + + + + Reason for Visit + + + | Reason | Comments | + + + | Hypertension | pt had a visiting tell her that she needed to be seen due to | | | a high blood pressure | + + + Encounter Details +--------+---------+ + + + | Date | Type | Department | Care Team | Description | +--------+---------+ + + + | 07/09/ | Office | [facility] | Charito Coker | CAD (coronary artery | | 2012 | Visit | [facility] | [address] | disease) (Primary | | | | Internal Medicine | [place] | Dx); HTN | | | | [address] [facility] | [place] [address] | (hypertension) | | | | [place], [place] | [phone] | | | | | [address] | | | | | | [phone] | | | +--------+---------+ + + + [...] + + + | Blood Pressure | 140/72 | 07/09/2013 8:39 AM | | | | | PST | | + + + + + | Pulse | 86 | 07/09/2013 8:39 AM | | | | | PST | | + + + + + | Temperature | 36.1 C (97 F) | 07/09/2013 8:39 AM | | | | | PST | | + + + + + | Respiratory Rate | 18 | 07/09/2013 8:39 AM | | | | | PST | | + + + + + | Oxygen Saturation | - | - | | + + + + + | Inhaled Oxygen | - | - | | | Concentration | | | | + + + + + | Weight | 81.6 kg (180 lb) | 07/09/2013 8:39 AM | | | | | PST | | + + + + + | Height | - | - | | + + + + + | Body Mass Index | 29.05 | 03/07/2012 12:00 AM | | | | | PDT | | + + + + + documented in this encounter Progress Charito Driver ARNP - 07/10/2013 11:30 AM PSTFormatting of this note might be diffe rent from the original. [facility] CLINIC NOTE Patient Name: Chaya Chan 72 y.o. Date of : 1940 MR Number: [id number] Date of Visit: 07/10/2013 Patient Active Problem List Diagnosis HYPOTHYROIDISM HYPERLIPIDEMIA SLEEP APNEA OBSTRUCTIVE RESTLESS LEGS SYNDROME ESSENTIAL HYPERTENSION BENIGN CORONARY ARTERY DISEASE CARDIOMYOPATHY DILATED ISCHEMIC CHRONIC SINUSITIS CEREBRAL ISCHEMIA Subjective: Chaya Chan is a 72 y.o. female patient here today for follow up on hypertension. A gerald l was received at the clinic 2 weeks ago stating that Chaya's blood pressure was increased to 200/105 a phone call was received by the nurses at the clinic and the patient was then tr ansferred to the main clinic to try to get her in for an urgent appointment. This apparentl y did not occur as she is here 2 weeks later without an interval visit.. Historically Luna [place] has a history of not being willing to take blood pressure medications as noted by her card iologist in a previous note. When I inquired with a 1 about this she stated that when she w as on blood pressure medicines she had too much it made her feel bad and she chooses now to just take herbal supplements. Today her blood pressure is decent it is 140/72 and the patie nt denies having had any change in vision any headaches I was quite surprised about her elev ated blood pressure the day that the home health nurse called. It is a little bit difficult to get a history from him: As when asked direct questions she is a little evasive. I have not met her before as we do not have an established relationship. Reviewing her medical andrew rt a.c. that she's previously been on combination of amlodipine the lisinopril and metoprolo l. She did have an acute cardiac event 2 years ago with stent placement. She is followed Riley Armstrong for cardiology and had an appointment on June 11 of this year. Chaya has seen numerous providers within the clinic and it is not clear who her primary ca re provider is she reports to me that it is Dr. guzmán. Patient's medications, allergies, past medical, surgical, social and family histories were reviewed and updated as appropriate. Patient's Medications New Prescriptions METOPROLOL TARTRATE (LOPRESSOR) 25 MG TABLET Take 1/2 tablet once daily Previous Medications ASCORBIC ACID (CVS VITAMIN C) 1000 MG TABLET Take 1,000 mg by mouth Daily. B [id number]-[id number] ( VITAMIN B 50/B-COMPLEX) TABS once a day CALCIUM PO CALCIUM 1000 MG TABS; 1000 mg four times daily GARLIC CAPS; once a day MAGNESIUM (GNP MAGNESIUM) 250 MG TABLET Take 250 mg by mouth 2 times daily. NITROGLYCERIN (NITROSTAT) 0.4 MG SL TABLET 0.4 mg as needed for chest pain called to [facility] in [place], [place] [phone] as directed RED YEAST RICE 600 MG CAPS Take 600 mg by mouth 3 times daily. Modified Medications No medications on file Discontinued Medications AMLODIPINE (NORVASC) 10 MG TABLET order called to [facility] in [place], [place] [phone] 10 mg once a day CLOPIDOGREL (PLAVIX) 75 MG TABLET Take 75 mg by mouth Daily. ISOSORBIDE MONONITRATE (IMDUR) 30 MG ER TABLET Order called to [facility] in [place] [phone] 30 mg once a day LISINOPRIL (PRINIVIL, ZESTRIL) 20 MG TABLET order called to [facility] in [place] [phone] 1 tablet daily SIMVASTATIN (ZOCOR) 20 MG TABLET Order called to [facility] in [place] [phone] 20 mg once a day Allergies Allergen Reactions Diltiazem Hcl Iodinated Diagnostic Agents No past medical history on file. No past surgical history on file. No family history on file. History Social History Marital Status: Spouse Name: N/A Number of Children: N/A Years of Education: N/A Occupational History Not on file. Social History Main Topics Smoking status: Never Smoker Smokeless tobacco: Not on file Alcohol Use: Not on file Drug Use: Not on file Sexually Active: Not on file Other Topics Concern Not on file Social History Narrative No narrative on file Review of Systems Constitutional - no recent weight loss, no fever, no chills, no night sweats, no weaknes s EENT- no vision changes, no eye pain, no earache, no sore throat Cardiovascular - no chest pain, no palpitations Respiratory - no dyspnea, no orthopnea or PND, no cough, no hemoptysis, no wheezing Gastrointestinal - appetite good, bowel movements regular, no nausea, no vomiting, no a bdominal pain, no melena or hematochezia Genitourinary - no dysuria, no urgency, no polyuria, no gross hematuria, no nocturia Musculoskeletal - no joint pains, no back pain, no muscle aches Endocrine - no hot flashes, no temperature intolerance, no excessive sweating Skin - no pruritus, no rash, no concerning skin lesions Neurological - no headaches, no paresthesias, no tremors, no dizziness, no syncope Psychiatric - no anxiety, no depression, no insomnia Objective: BP 140/72 | Pulse 86 | Temp 36.1 C (97 F) (Temporal) | Resp 18 | Wt 81.647 kg (180 lb) Gen Liang - alert, no distress, well-nourished HEENT - PERRLA, full EOM's, no icterus, no active nasal congestion, oral mucosa moist, p harynx clear Neck - supple, thyroid not enlarged, no carotid bruit, no lymphadenopathy, no JVD Lungs - clear breath sounds bilaterally, no rhonchi, no active wheezing, no crackles Chest wall - no tenderness or deformity Heart - regular rhythm, normal rate , S1 and S2 normal, no murmur, no gallop, no rub Abdomen - soft, non-tender, bowel sounds active, no masses, no organomegaly Back - symmetric, no curvature, ROM normal, no CVA tenderness Extremities - no calf tenderness, no pedal edema, no clubbing or cyanosis, pulses intact Skin - turgor normal, no rash, no active lesions Neurologic - mental status clear, no focal deficits. Psychiatric - mood and affect normal Assessment and Plan: Chaya was seen today for hypertension. Diagnoses and associated orders for this visit: Cad (coronary artery disease) - Ambulatory referral to Cardio-Vascular; Future - metoprolol tartrate (LOPRESSOR) 25 mg tablet; Take 1/2 tablet once daily Htn (hypertension) - metoprolol tartrate (LOPRESSOR) 25 mg tablet; Take 1/2 tablet once daily PLAN: Continue to monitor blood pressure at home. Chaya is very tentative about taking blood pr essure medications and has not followed the recommendations of her pneumatic tool operator in the past because her medication made her feel sleepy and have no energy. Considering this, I will start her on a low dose of metoprolol and she will take it only on ce daily at night. She has agreed to follow up her in one month when she returns from [place] with her . Active Orders There are no active orders. Orders Placed This Encounter Procedures Ambulatory referral to Cardio-Vascular Standing Status: Future Number of Occurrences: Standing Expiration Date: 07/09/2014 Referral Priority: Routine Referral Type: Evaluate & Treat Referral Reason: Specialty Services Required Referred to Provider: Donald Mendiola MD Requested Specialty: Cardiology Number of Visits Requested: 1 Electronically signed by: Charito Coker 07/10/2013 11:30 [facility] documented in this encounter Plan of Treatment + + +--------+ + + | Name | Type | Priori | Associated Diagnoses | Order Schedule | | | | ty | | | + + +--------+ + + | Ambulatory referral | Outpatient | Routin | CAD (coronary | 1 Occurrences | | to Cardio-Vascular | Referral | e | artery disease) | starting 07/09/2013 | | | | | | until 07/09/2014 | + + +--------+ + + documented as of this encounter Visit Diagnoses + + | Diagnosis | + + | CAD (coronary artery disease) - Primary Coronary atherosclerosis of unspecified type | | of vessel, belkofski or graft | + + | HTN (hypertension) Unspecified essential hypertension | + + documented in this encounter"
--- OUTSIDE RECORDS SUMMARY | ~2019-07-30 | XMS | Encounter Summary ---
Demographics + + + | Address | [address] | | | [place] [address] | + + + | Home Phone | | + + + | Preferred Language | Unknown | + + + | Marital Status | | + + + | Moravian Affiliation | 1001 | + + + | Race | Unknown | + + + | Ethnic Group | Unknown | + + + Author + + + | Author | [facility] | | | and [place] | + + + | Organization | [facility] | | [...] Providers + +------+ + | Care Regional Engagement Consultant Name | Role | Phone | [...] | Physical | Diagnoses | Ricky, | [facility] | | | Services | Therapy / | Benign | MD Doug | [address] | | | Required | Rehabilitatio | paroxysmal | [address] | | | | n | positional | [address] | [place], [place] | | | | | vertigo, | Ave. | [address] | | | | | unspecified | [place], [place] | Phone: | | | | | laterality | [address] | [phone] | | | | | | Phone: | Fax: | | | | | | [phone] | [phone] | | | | | | Fax: | | | | | | | [phone] | | +--------+ + + + + + Encounter Details +--------+ + + + + | Date | Type | Department | Care Team | Description | +--------+ + + + + | 09/08/ | Hospital | [facility] | Doug García MD | Benign paroxysmal | | 2018 | Encounter | [facility] | [address] | positional vertigo, | | | | PHYSICAL THERAPY | [place] [address] | unspecified | | | | [address] | [phone] | laterality | | | | [place], [place] | | | | | | [address] | Angel Geiger, PT | | | | | [phone] | [address] | | | | | | [place], [place] | | | | | | [address] | | | | | | [phone] | | | | | | | [...] might be different fro m the original. [facility] PHYSICAL TH[facility] [address] [facility] [address] Physical Therapy Daily Treatment Note Date: 09/08/2017 Patient Information Patient Name: Chaya Chan Date of : 1940 Age: 76 y.o. Encounter Diagnoses Code Name Primary? H81.10 Benign paroxysmal positional vertigo, unspecified laterality Date of Onset: Referring Provider: Doug García MD Rehab Precautions Flowsheet Row [facility]ALUATION from 09/01/2017 in [facility]ER[facility] Rehab Precautions Precautions Comments Significant PMH please review Rehab Learning Style Flowsheet Row [facility] PT EVALUATION from 09/01/2017 in [facility] Learning Style Patient's Optimum Learning Style [...]
--- OUTSIDE RECORDS SUMMARY | ~2019-07-30 | XMS | Encounter Summary ---
Demographics + + + | Address | [address] | | | [place] [address] | + + + | Home Phone [...] Providers + +------+ + | Care Credit Portfolio Advisor Name | Role | Phone | + +------+ + | Doug García MD | PCP | | + +------+ + Encounter Details +--------+ + + + + | Date | Type | Department | Care Team | Description | +--------+ + + + + | 07/29/ | Orders Only | [facility] | Sonia Akers, BUTTON TACKER | | | 2019 | | MED CTR PULMONARY | | | | | | FUNCTION [address] | | | | | | [place], | | | | | | [place] [address] | | | | | | [phone] | | | +--------+ + + + [...]
--- OUTSIDE RECORDS SUMMARY | ~2019-07-30 | XMS | Clinical Summary ---
Demographics + + + | Address | [address] | | | [place] [address] | + + + | Home Phone [...] + + | Author | [facility] (Historical as of | | | 03-02-19) | + + + | Organization | [facility] (Historical as of | | | 03-02-19) [...] Team Providers + +------+ + | Care Food Service Assistant Name | Role | Phone | [...] +------+-------+ + | MEDICARE | MEDICA | [id number] | | | [address] | | | RE | | | | [place] [address] | | | IP-OP | | | | | + +--------+ +------+-------+ + | [facility] | [place] | [phone] | | | | | | | [...] | 11/[birth year]/ | Home: | LUCIUS MCKEON [facility] [place] | | | al/Fam | | [phone] | [phone] | [place] [address] | | | migdalia | | | 1958 | | + +--------+ +--------+ + +
--- OUTSIDE RECORDS SUMMARY | ~2019-07-30 | XMS | Encounter Summary ---
Demographics + + + | Address | [address] | | | [place] [address] | + + + | Home Phone [...] Team Providers + +------+ + | Care Asparagus Buncher Name | Role | Phone | + [...] Appointment | | 2014 | | [facility] | | | | | | [address] | | | | | | [address] [place] | | | | | | [address] | | | | | | [phone] | | | +--------+ + + + [...]
--- OUTSIDE RECORDS SUMMARY | ~2019-07-30 | XMS | Encounter Summary ---
Demographics + + + | Address | [address] | | | [place] [address] | + + + | Home Phone | | + + + | Preferred Language | Unknown | + + + | Marital Status | | + + + | Judaism Affiliation | 1001 | + + + | Race | Unknown | + + + | Ethnic Group | Unknown | + + + Author + + + | Author | [facility] | | | and [place] | + + + | Organization | [facility] | | [...] Team Providers + +------+ + | Care Railway Signal Electrician Name | Role | Phone | + [...] (Primary | | 2013 - | | [facility] | MD [address] | Dx); NSTEMI (non-ST | | | | EMERGENCY CENTER | Ave. [place], [place] | elevated myocardial | | 12/16/ | | [address] | [address] | infarction) ([facility]); | | 2013 | | [place], [place] | | CORONARY ARTERY | | | | [address] | | DISEASE | | | | [phone] | | | +--------+ + + + [...] | 0 | 04/06/20 | | | [id number] | | | | 11 | 4 [...] PORTABLE ONE VIEW CLINICAL INFORMATION: Chest | [facility] | | pain. COMPARISON: 12/07/2011 FINDINGS: [...] + + | [facility] | [facility], [address] | [place] [address] | [phone] | | | [place] | | | + + + + [...] + + | [facility] | [address] | [place] [address] | | | [facility] | | [...] + + + + + | [facility] | [address] | [place] [address] | | | [facility] | | | | | LABORATORY [...] + | MON[facility]A SHEIKH | [address] [facility] | [place] [address] | | | [facility] | | [...] + + | MON[facility] SHE[facility] | [address] [facility] | [place] [address] | | | [facility] | | | | | LABORATORY [...] + + | [facility] | [address] [facility] | [place] [address] | | | [facility] | | | | | LABORATORY [...] + | [facility] | [address] | [place] [address] | | | [facility] | | | | | LABORATORY [...] + + | MON[facility]A SHEIKH | [address] [facility] | [place] [address] | | | [facility] | | | | | LABORATORY [...] of unspecified type of vessel, | | [place]kw[place] or graft | + + documented in [...]
--- OUTSIDE RECORDS SUMMARY | ~2019-07-30 | XMS | Encounter Summary ---
Demographics + + + | Address | [address] | | | [place] [address] | + + + | Home Phone [...] Team Providers + +------+ + | Care Broadcast Checker Name | Role | Phone | [...] Description | +--------+---------+ + + + | 02/15/ | Office | [facility] | Doug García MD | Obstructive sleep | | 2018 | Visit | [facility] | [address] | apnea (Primary Dx); | | | | Internal Medicine | [place] [address] | Benign essential | | | | [address] | [phone] | hypertension; | | | | [place], [place] | | Coronary artery | | | | [address] | | disease involving | | | | [phone] | | [place] coronary | | | | | | artery of [place] | | | | | | heart without angina | | | | | | pectoris; History | | | | | | of stroke; Acquired | | | | | | hypothyroidism; | | | | | | Chronic diastolic | | | | | | CHF (congestive | | | | | | heart failure), NYHA | | | | | | class 2 ([facility]); | | | | | | Paroxysmal atrial | | | | | | fibrillation ([facility]) | +--------+---------+ + + + Social [...] + + + | Blood Pressure | 163/96 | 02/15/2018 8:07 AM | | | | | PDT | | + + + + + | Pulse | 84 | 02/15/2018 8:07 AM | | | | | PDT | | + + + + + | Temperature | - | - | | + + + + + | Respiratory Rate | 20 | 02/15/2018 8:07 AM | | | | | PDT | | + + + + + | Oxygen Saturation | 97% | 02/15/2018 8:07 AM | | | | | PDT | | + + + + + | Inhaled Oxygen | - | - | | | Concentration | | | | + + + + + | Weight | 74.4 kg (164 lb) | 02/15/2018 8:07 AM | | | | | PDT | | + + + + + | Height | - | - | | + + + + + | Body Mass Index | 27.29 | 10/03/2017 11:07 AM | | | [...] encounter Progress Notes Doug García MD - 02/15/2018 8:20 AM PDTFormatting of this note might be different from t he original. [facility] CLINIC NOTE Patient Name: Chaya Chan 77 y.o. Date of : 1940 MR Number: [id number] Date of Visit: 02/15/2018 Patient Active Problem List Diagnosis Hypothyroidism Hyperlipidemia Obstructive sleep apnea Restless legs syndrome (RLS) Benign essential hypertension Coronary artery disease CHRONIC SINUSITIS CEREBRAL ISCHEMIA Allergic reaction to contrast dye Chronic diastolic CHF (congestive heart failure), NYHA class 2 Stress hyperglycemia Paroxysmal atrial fibrillation Postoperative anemia due to acute blood loss Post pericardiotomy syndrome Pleural effusion on left Second degree AV block Benign paroxysmal positional vertigo Carotid artery stenosis Dizziness Bilateral carotid artery disease Cerebrovascular accident (CVA) due to occlusion of right middle cerebral artery History of stroke Mitral regurgitation Subjective: Chaya Chan is a 77 y.o. female patient here today for follow up. Admitted to [facility] Aug 24 for NSTEMI. She has known CAD status post CABG in 2013; presented to the ED at [facility] with chest pains and also rapid atrial fibrillation. Started on apixab an. At this time, she has fully recovered. Her breathing has been stable. She denies any chest pains or palpitations. She continues to use her CPAP every night, averaging 7 hours of sleep with the CPAP on. No reports of snoring breakthrough. She still occasionally feels sleepy during the day. Patient's medications, allergies, past medical, surgical, social and family histories were reviewed and updated as appropriate. Current Medications: Current Outpatient Prescriptions Medication Sig Dispense Refill apixaban (ELIQUIS) 5 mg tablet Take 1 tablet by mouth 2 times daily. 60 tablet 3 Ascorbic Acid (VITAMIN C) 1000 MG tablet Take 1,000 mg by mouth Daily. aspirin 81 MG tablet Take 1 tablet by mouth Daily. 30 tablet 5 atorvaSTATin (LIPITOR) 40 mg tablet Take 1 tablet by mouth nightly. 30 tablet 5 Capsicum, Cayenne, (CAYENNE PEPPER PO) Take by mouth Daily. Coenzyme Q10 (COQ-10 PO) Take by mouth Daily. cyanocobalamin (VITAMIN B-12) 50 MCG tablet Take 50 mcg by mouth Daily. hydroCHLOROthiazide 25 mg tablet Take 1 tablet by mouth Daily. 30 tablet 11 isosorbide mononitrate (IMDUR) 30 mg ER tablet Take 1 tablet by mouth Daily. 30 tablet 5 levothyroxine (SYNTHROID, LEVOTHROID) 100 mcg tablet TAKE ONE TABLET BY MOUTH ONCE CLIVE Y IN THE MORNING BEFORE BREAKFAST 90 tablet 3 magnesium, as oxide, (GNP MAGNESIUM) 250 MG tablet Take 500 mg by mouth 3 times daily. meclizine (ANTIVERT) 25 mg tablet Take 1 tablet by mouth every 6 hours as needed. 60 ta blet 2 metoprolol succinate (TOPROL-XL) 50 mg 24 hr tablet Take 1 tablet by mouth Daily. 30 ta blet 11 nitroglycerin (NITROSTAT) 0.[address] 1 tablet under the tongue every 5 sun velvet as needed for Chest pain. 25 tablet 0 Nutritional Supplements (VITAMIN D MAINTENANCE PO) Take by mouth Daily. potassium 99 mg tablet Take 99 mg by mouth Daily. thyroid (NATURE-THROID, WESTHROID) 325 MG TABS Take 32.5 mg by mouth Daily. zinc sulfate 220 mg capsule Take 220 mg by mouth 2 times daily. No current facility-administered medications for this visit. Allergies Allergen Reactions Iodine Anaphylaxis Red Dye Other (See Comments) "angina", numb lips Diltiazem Hcl Latex Lidocaine Review of Systems Constitutional - no recent [...] anxiety, no depression, no insomnia Objective: BP (!) 163/96 | Pulse 84 | Resp 20 | Wt 74.4 kg (164 lb) | SpO2 97% | BMI 27.29 kg/m Gen Liang - alert, no distress, [...] essential hypertension 3. Coronary artery disease 4. History of stroke 5. Acquired hypothyroidism 6. Chronic diastolic CHF (congestive heart failure), NYHA class 2 7. Paroxysmal atrial fibrillation PLAN: We discussed the pathophysiology of sleep apnea and its treatment and the implications of u ntreated sleep apnea. The patient has been compliant with CPAP / BiPAP therapy and is clear ly benefiting from it. I discussed the mechanism of action of CPAP / BiPAP in treating slee p apnea. I discussed desensitization techniques as well as some imagery techniques that can be helpful. Also discussed the use of heated humidity. I encouraged the patient to continue regular usage. Discussed her heart disease, appropriate treatment, prognosis. Follow-up in 4 months. Electronically signed by: Doug García 02/15/2018 [facility] Doug Garc[facility] MD at 3:48 PM PDTdocumented in this encounter Plan of Treatment Not on filedocumented as of this encounter Visit Diagnoses + + | Diagnosis | + + | Obstructive sleep apnea - Primary Obstructive sleep apnea (adult) (pediatric) | + + | Benign essential hypertension Essential hypertension, benign | + + | Coronary artery disease involving gila [place] coronary artery of [place] river heart without | | angina pectoris | + + | History of stroke Transient ischemic attack (TIA), and cerebral infarction without | | residual deficits | + + | Acquired hypothyroidism Unspecified hypothyroidism | + + | Chronic diastolic CHF (congestive heart failure), NYHA class 2 (HCC) | + + | Paroxysmal atrial fibrillation (HCC) Atrial fibrillation | + + documented in this encounter
--- OUTSIDE RECORDS SUMMARY | ~2019-07-30 | XMS | Encounter Summary ---
Demographics + + + | Address | [address] | | | [place] [address] | + + + | Home Phone [...] Team Providers + +------+ + | Care Livestock Breeder Name | Role | Phone | + +------+ + PCP | Unavailable | + +------+ + Encounter Details +--------+ + + + + | Date | Type | Department | Care Team | Description | +--------+ + + + + | 11/21/ | Hospital | [facility] | Sina Belle MD | | | 2006 | Encounter | [facility] | [address] | | | | | EMERGENCY CENTER | [place] [address] | | | | | [address] | [phone] | | | | | [place], [place] | | | | | | [address] | | | | | | [phone] | | | +--------+ + + + [...]
--- OUTSIDE RECORDS SUMMARY | ~2019-07-30 | XMS | Encounter Summary ---
Demographics + + + | Address | [address] | | | [place] [address] | + + + | Home Phone | | + + + | Preferred Language | Unknown | + + + | Marital Status | | + + + | Congregational Affiliation | 1001 | + + + | Race | Unknown | + + + | Ethnic Group | Unknown | + + + Author + + + | Author | [facility] | | | and [place] | + + + | Organization | [facility] | | [...] Team Providers + +------+ + | Care Pipe Fitter Soft Copper Name | Role | Phone | + [...] | Physical | Diagnoses | Ricky, | [facility] Therapy | | | Services | Therapy / | Benign | MD Doug | [address] | | | Required | Rehabilitatio | paroxysmal | [address] | | | | n | positional | [address] | [place], [place] | | | | | vertigo, | Ave. | [address] | | | | | unspecified | [place], [place] | Phone: | | | | | laterality | [address] | [phone] | | | | | | Phone: | Fax: | | | | | | [phone] | [phone] | | | | | | Fax: | | | | | | | [phone] | | +--------+ + + + + + Encounter Details +--------+ + + + + | Date | Type | Department | Care Team | Description | +--------+ + + + + | 09/20/ | Hospital | [facility] | Doug García MD | Benign paroxysmal | | 2018 | Encounter | [facility] | [address] | positional vertigo, | | | | PHYSICAL THERAPY | [place] [address] | unspecified | | | | [address] | [phone] | laterality | | | | [place], [place] | | | | | | [address] | Satish Messer PT | | | | | [phone] | [address] | | | | | | [place], [place] | | | | | | [address] | | | | | | [phone] | | | | | | | [...] might be different fr om the original. [facility] PHYSICAL THERAPY [address] [facility] [address] Physical Therapy Daily Treatment Note Date: 09/20/2017 Patient Information Patient Name: Chaya Chan Date of : 1940 Age: 76 y.o. Encounter Diagnoses Code Name Primary? H81.10 Benign paroxysmal positional vertigo, unspecified laterality Referring Provider: Doug García MD Rehab Precautions Flowsheet Row [facility] PT EVALUATION from 09/01/2017 in [facility] Rehab Precautions Precautions Comments Significant PMH please review Rehab Learning Style Flowsheet Row [facility] PT EVALUATION from 09/01/2017 in [facility] S[facility] Learning Style Patient's Optimum [...]
--- OUTSIDE RECORDS SUMMARY | ~2019-07-30 | XMS | Encounter Summary ---
Demographics + + + | Address | [address] | | | [place] [address] | + + + | Home Phone [...] Team Providers + +------+ + | Care Channel Director Name | Role | Phone | [...] | | essential | [address] | | | | | hypertension | [place] | [place], [place] | | | | | Bilateral | Ave. | [address] | | | | | carotid | [place], [place] | Phone: | | | | | artery | [address] | [phone] | | | | | stenosis | Phone: | Fax: | | | | | Transient | [phone] | [phone] | | | | | cerebral | Fax: | | | | | | ischemia, | [phone] | | | | | | unspecified [...] | | [facility] | [address] | hypertension | | | | Internal Medicine | [place] [address] | (Primary Dx); | | | | [address] | [phone] | Paroxysmal atrial | | | | [place], [place] | | fibrillation (HCC); | | | | [address] | | Bilateral carotid | | | | [phone] | | artery stenosis; | | | [...] might be different from t eleonora mchugh. [facility] PROVIDER NOTE Patient Name: Chaya Chan 76 y.o. Date of : 1940 MR Number: [id number] Datet: 07/11/2017 Patient's daughter, Kimberly Lyon, who is a nurse, communicated with me [...] Electronically signed by: Doug García 07/11/2017 6:28 [facility]ron[facility] signed by Doug García MD at 6:47 [...] [facility] [place] [address] | | | [facility] | | [...] [facility] | [place] [address] | | | [facility] | | | | | LABORATORY [...] + + + + + | [facility] | [address] [facility] | [place] [address] | | | [facility] | | | | | LABORATORY [...] + | MONIKA SHEIKH | [address] [facility] | [place] [address] | | | [facility] | | [...] | | | atrophy. Signed by: MD Pacsual Bill | | + + + + [...]
--- OUTSIDE RECORDS SUMMARY | ~2019-07-30 | XMS | Encounter Summary ---
Demographics + + + | Address | [address] | | | [place] [address] | + + + | Home Phone | | + + + | Preferred Language | Unknown | + + + | Marital Status | | + + + | Religion Affiliation | 1001 | + + + | Race | Unknown | + + + | Ethnic Group | Unknown | + + + Author + + + | Author | [facility] | | | and [place] | + + + | Organization | [facility] | | | [...] Team Providers + +------+ + | Care Template Checker Name | Role | Phone | [...] Required | Medicine | (coronary | Diane, CLOTH PRINTING UTILITY WORKER | [address] | | | | | artery | [address] | | | | | disease) | [place] | [place], | | | | | Procedures | [place], [place] | [place] [address] | | | | | Eval & Treat | [address] | Phone: | | | | | - MMV | Phone: | [phone] | | | | | | [phone] | Fax: | | | | | | Fax: | [phone] | | | | | | [phone] | | +--------+ + + + + [...] artery | | 2012 | Visit | [facility] | [address] | disease) (Primary | | | | Internal Medicine | [place] | Dx); HTN | | | | [address] [facility] | [place] [address] | (hypertension) | | | | [place], [place] | [phone] | | | | | [address] | | | | | | [phone] | | | +--------+---------+ + + + [...] be diffe rent from the original. [facility] CLINIC NOTE Patient Name: Chaya Chan 72 y.o. Date of : 1940 MR Number: [id number] Date of Visit: 07/10/2013 Patient Active Problem [...] Take 1,000 mg by mouth Daily. B [id number] ( VITAMIN B 50/B-COMPLEX) TABS once a day CALCIUM PO CALCIUM 1000 MG TABS; 1000 mg four times daily GARLIC CAPS; once a day MAGNESIUM (GNP MAGNESIUM) 250 MG TABLET Take 250 mg by mouth 2 times daily. NITROGLYCERIN (NITROSTAT) 0.4 MG SL TABLET 0.4 mg as needed for chest pain called to [facility] in [place], [place] [phone] as directed RED YEAST RICE 600 MG CAPS Take 600 mg by mouth 3 times daily. Modified Medications No medications on file Discontinued Medications AMLODIPINE (NORVASC) 10 MG TABLET order called to [facility] in [place], [place] [phone] 10 mg once a day CLOPIDOGREL (PLAVIX) 75 MG TABLET Take 75 mg by mouth Daily. ISOSORBIDE MONONITRATE (IMDUR) 30 MG ER TABLET Order called to [facility] in [place] [phone] 30 mg once a day LISINOPRIL (PRINIVIL, ZESTRIL) 20 MG TABLET order called to [facility] in [place] [phone] 1 tablet daily SIMVASTATIN (ZOCOR) 20 MG TABLET Order called to [facility] in [place] [phone] 20 mg once a day [...] has not followed the recommendations of her highway administrative engineer in the past because her medication made her feel sleepy and have no energy. Considering this, I will start her on a low dose of metoprolol and she will take it only on ce daily at night. She has agreed to follow up her in one month when she returns from [place] with her . Active Orders There are [...] of unspecified type | | of vessel, [place] or graft | + + | HTN (hypertension) Unspecified essential hypertension | + + documented in this encounter"
--- OUTSIDE RECORDS SUMMARY | ~2019-07-30 | XMS | Encounter Summary ---
Demographics + + + | Address | [address] | | | [place] [address] | + + + | Home Phone [...] Team Providers + +------+ + | Care Aircraft Detail Draftsperson Name | Role | Phone | + [...] Refill | | 2013 | | Cardiology [facility] | MD [address] | | | | | [address] | [place], | | | | | [place] [address] [place] | [place] [address] | | | | | [address] | [phone] | | | | | [phone] | | | +--------+--------+ + + + [...]
--- OUTSIDE RECORDS SUMMARY | ~2019-07-30 | XMS | Encounter Summary ---
Demographics + + + | Address | [address] | | | [place] [address] | + + + | Home Phone [...] Team Providers + +------+ + | Care Swing Driver Name | Role | Phone | + +------+ + | Doug García MD | PCP | | + +------+ + Encounter Details +--------+ + + + + | Date | Type | Department | Care Team | Description | +--------+ + + + + | 11/10/ | Hospital | [facility] | Doug García MD | | | 2017 | Encounter | [facility] | [address] | | | | | LABORATORY [address] | [place] [address] | | | | | [address] | [phone] | | | | | [place], [place] | | | | | | [address] | | | | | | [phone] | | | +--------+ + + + [...]
--- OUTSIDE RECORDS SUMMARY | ~2019-07-30 | XMS | Encounter Summary ---
Demographics + + + | Address | [address] | | | [place] [address] | + + + | Home Phone [...] Team Providers + +------+ + | Care Testing Consultant Name | Role | Phone | [...] essential | | 2017 | Visit | [facility] | [address] | hypertension | | | | Internal Medicine | [place] [address] | (Primary Dx); | | | | [address] | [phone] | Obstructive sleep | | | | [place], [place] | | apnea; Coronary | | | | [address] | | artery disease due | | | | [phone] | | to calcified | | | [...] | | | | | class 2 ([facility]); | | | | | | Paroxysmal atrial | | | | | | fibrillation ([facility]) | +--------+---------+ + + + [...] be different from t eleonora original. [facility] CLINIC NOTE Patient Name: Chaya Chan 76 y.o. Date of : 1940 MR Number: [id number] Date of Visit: 05/04/2017 Patient Active Problem [...] Electronically signed by: Doug García 05/04/2017 9:06 [facility]ía MD [...]
--- OUTSIDE RECORDS SUMMARY | ~2019-07-30 | XMS | Encounter Summary ---
Demographics + + + | Address | [address] | | | [place] [address] | + + + | Home Phone [...] Team Providers + +------+ + | Care Hospitality Intern Name | Role | Phone | [...] | | artery | [address] | [place] | | | | | stenosis, | [place] | [facility] [address] | | | | bilateral | [address] | [address] | | | | | Procedures | [place], [place] | [address], | | | | | A-carotid | [address] | [place] | | | | | stenosis | Phone: | [address] | | | | | | [phone] | Phone: | | | | | | Fax: | [phone] | | | | | | [phone] | Fax: | | | | | | | [phone] | +--------+ + + + + + Encounter Details +--------+---------+ + + + | Date | Type | Department | Care Team | Description | +--------+---------+ + + + | 04/03/ | Office | [facility] | Colby Guerrero, | Carotid artery | | 2013 | Visit | [facility] [place] | [place] [address] | stenosis, bilateral | | | | [place] [address] | [address] [place], (Primary Dx); | | | | [address], [place] | [place] [address] | Dizziness of unknown | | | | [address] | [phone] | cause; Coronary | | | | [phone] | | artery disease; | | | [...] of unspecified type of vessel, | | [place] or graft | + + | Paroxysmal atrial fibrillation (HCC) Atrial fibrillation | + + documented in this encounter
--- OUTSIDE RECORDS SUMMARY | ~2019-07-30 | XMS | Encounter Summary ---
Demographics + + + | Address | [address] | | | [place] [address] | + + + | Home Phone [...] Team Providers + +------+ + | Care Zigzag Appliquer Name | Role | Phone | + [...] Refill | | 2014 | | [facility] | [address] | | | | | Internal Medicine | [place] [address] | | | | | [address] [facility] | [phone] | | | | | [place], [place] | | | | | | [address] | | | | | | [phone] | | | +--------+--------+ + + + [...]
--- OUTSIDE RECORDS SUMMARY | ~2019-07-30 | XMS | Encounter Summary ---
Demographics + + + | Address | [address] | | | [place] [address] | + + + | Home Phone | | + + + | Preferred Language | Unknown | + + + | Marital Status | | + + + | Religion Affiliation | 1001 | + + + | Race | Unknown | + + + | Ethnic Group | Unknown | + + + Author + + + | Author | [facility] | | | and [place] | + + + | Organization | [facility] | | | [...] Team Providers + +------+ + | Care Research Investigator Name | Role | Phone | + +------+ + PCP | Unavailable | + +------+ + Encounter Details +--------+ + + + + | Date | Type | Department | Care Team | Description | +--------+ + + + + | 06// | Orders Only | [facility] | Gerardo, | | | 2010 | | [facility] | Erum Ragland MD [address] | | | | | [address] | [address] | | | | | [address] [place] [address] | [address] | | | | | [address] | [address] | | | | | [phone] | | | +--------+ + + + [...]
--- OUTSIDE RECORDS SUMMARY | ~2019-07-30 | XMS | Encounter Summary ---
Demographics + + + | Address | [address] | | | [place] [address] | + + + | Home Phone [...] Team Providers + +------+ + | Care Team Psychologist Name | Role | Phone | + [...] sleep | | 2018 | Visit | [employer] | [address] | apnea (Primary Dx); | | | | Internal Medicine | [place] [address] | Benign essential | | | | [address] | [phone] | hypertension; | | | | [place], [place] | | Coronary artery | | | | [address] | | disease involving | | | | [phone] | | tanacross coronary | | | | | | artery of tan[place]ross | | | | | | heart [...] | | | | | class 2 ([facility]); | | | | | | Paroxysmal atrial | | | | | | fibrillation ([facility]) | +--------+---------+ + + + Social [...] Hospital CLINIC NOTE Patient Name: Chaya Chan 77 y.o. Date of : 1940 MR Number: [id number] Date of Visit: 02/15/2018 Patient Active Problem [...] here today for follow up. Admitted to [facility] Aug 24 for NSTEMI. She has known CAD status post CABG in 2013; presented to the ED at [facility] with chest pains and also rapid [...] Electronically signed by: Doug García 02/15/2018 8:45 [facility] by Doug García MD at 3:48 PM PDTdocumented in this encounter Plan of Treatment Not on filedocumented as of this encounter Visit Diagnoses + + | Diagnosis | + + | Obstructive sleep apnea - Primary Obstructive sleep apnea (adult) (pediatric) | + + | Benign essential hypertension Essential hypertension, benign | + + | Coronary artery disease involving tanacross coronary artery of tanacross heart without | | angina pectoris | [...]
--- OUTSIDE RECORDS SUMMARY | ~2019-07-30 | XMS | Encounter Summary ---
Demographics + + + | Address | [address] | | | [place] [address] | + + + | Home Phone [...] Team Providers + +------+ + | Care Philatelic Consultant Name | Role | Phone | + +------+ + | Doug García MD | PCP | | + +------+ + Encounter Details +--------+---------+ + + + | Date | Type | Department | Care Team | Description | +--------+---------+ + + + | 08/25/ | Surgery | [facility] | Fly Christianson, | CV [facility] | | 2018 | | [facility] CV | MD [address] | | | | | INTRA OP [address] | [address] [place], | | | | | Ave [place] | [place] [address] | | | | | [address] | [phone] | | | | | [phone] | | | +--------+---------+ + + + [...] face of rapid a-fib; suspected Type II MA B. Heart cath with prior closure of two of her SVGs (see below). C. Preserved EF at 60% D. Imdur added to her med regime 2. Known CAD: A. CABG X 4 in 2013 B. Had stopped her ASA and statin previously - both restarted. C. Preserved EF. 3. Paroxysmal atrial fibrillation: A. Single episode with RVR at [place] with spontaneous conversion to (and maintenance of) [...] Pinto presented to the emergency department in [place] on August 23 with complaints o f [...] positive. She was subs equently transported to [facility] for further evaluation. Ms. Pinto had no [...] morning of 2017. [place]: [place] [address] [facility] [id number] [facility] [address] Message left for schedulers to call you for a 4-6 week f/u appointment. Doug García MD [address] [facility] [address] Schedule an appointment as soon as possible [...] 08/25/[address] Christianson: CONCLUSIONS: 1. diffuse [place] coronary artery disease with 100% mid LAD, [...] to contact you for a 4-6 week zjzxis-ff-yf sure and tel l them about when you will be in [place] and it will work for you. Follow-up with your primary care provider in one to 2 weeks-please call for an appointment. Heart healthy diet. Discharge References/Attachments Atrial Fibrillation, Discharge Instructions for (Swedish) If patient has any further questions or [...] of CVA presumed embolic Fly Christianson MD [facility] Cardiology Portions of this chart were created with [employer] voice recognition software. Occasional wro ng-word or "sound-alike" substitutions may have occurred due to the inherent limitations of voice recognition software. Please read the chart carefully and recognize, using context, w here those substitutions have occurred. [facility] Cardiology Clinic Main Office - [address], [address] [place], [place] [address] Office: Medical Records [facility] [place], [place] [address] Main: Physician referral and transfer line: Physician referral fax line: Medical Records phone: Medical Records fax: [address] [address] Main: Medical Records Electronically signed by Fly [...] to contact you for a 4-6 week wxqmxk-xe-dd sure and tel l them about when you will be in [place] and it will work for you. Follow-up with your primary care provider in one to 2 weeks-please call for an appointment. Heart healthy diet. AttachmentsThe following attachments cannot be sent through Care Everywhere.Atrial Fibrilla tion, Discharge Instructions for (Swedish)documented in this encounter Medications at Time of [...] fibrillation (HCC) Assessment & Plan Admitted to [facility] in atrial fibrillation with RVR with rate in 130s. Converted to normal sinus rhythm there after 5 mg IV metoprolol. K 3.8. Mag 2.3. TSH normal. [id number] Risk Score: 8 - 10.8% Estimated Stroke [...] (congestive heart failure), NYHA class 2 ([facility]) Assessment & Plan BNP 1,140 at [facility]. Creatinine trending down to 1.19 from 1.44 [...] Portions of this chart were created with [employer] voice recognition software. Occasional wro ng-word or [...] + + | Glucose | 141 (H)Comment: Nicaraguan | 65 - 99 mg/dL | [facility] [...] + | MONIKA MELCHOR | [address] | [place] [address] | | | [facility] | | | | | LABORATORY [...] + + | MONIKA MELCHOR | [address] | [place] [address] | | | [facility] | | | | | LABORATORY [...] | | MARKIE PINTO Study Date: 08/25/2017MRN: [id number] | | | Patient Location: [facility] CRDTRNS 655DOB: 1940 | | | Age: [...] | | Physician: Timothy SALINASocardiographer: Vane Kimbrough [id number]: | | | | | |Pulmonic Valve: [...] |Ordering Physician: MARIA ANTONIA SALINAS | | |Gun Mechanic: Vane Viera | | |[id number]: | | | | | + + ----+ + + | Procedure Note | + + | Mauricio, Rad Results In - 08/25/2017 7:05 PM PST | | Adult Echo | | Report | | | | Name: MARKIE PINTO Study Date: 08/25/2017 | | Patient Location: [place] [address] | | : 1940 Age: 76 yrs [...] Ordering Physician: MARIA ANTONIA SALINAS | | Gun Mechanic: Vane Viera | | [id number]: | + + + +---------+ + + [...] | TRACEMASTER | | Duration:180 msP Horizontal [place]:7 degP Front [place]:65 degQ Onset:516 | | | msQRSD Interval:118 msQT Interval:476 msQTcB:476 msQTcF:476 msQRS | | | Horizontal [place]:-77 degQRS [place]:-31 degI-40 Horizontal [place]:39 degI-40 | | | Front [place]:68 degT-40 Horizontal [place]:239 degT-40 Front [place]:-56 degT | | | Horizontal [place]:110 degT Wave [place]: degS-T Horizontal [place]:132 degS-T | | | Front [place]:206 degSeverity:- ABNORMAL ECG -INTERP:SINUS | | | RHYTHMINTERP:LVH WITH IVCD AND SECONDARY REPOL ABNRMElectronically | | | signed by: ERUM MIMS 08-26-2017 10:50:00 | | |QTcB:476 ms | | |QTcF:476 ms | | |QRS Horizontal [place]:-77 deg | | |QRS [place]:-31 deg | | |I-40 Horizontal [place]:39 deg | | |I-40 Front [place]:68 deg | | |T-40 Horizontal [place]:239 deg | | |T-40 Front [place]:-56 deg | | |T Horizontal [place]:110 deg | | |T Wave [place]: deg | | |S-T Horizontal [place]:132 deg | | |S-T Front [place]:206 deg | | |Severity:- ABNORMAL ECG - [...] + + + | G[facility] | [address] [place] [address]. | [place] [address] | [phone] | + + + + + PTT [...] + + | MONIKA MELCHOR | [address] | [place] [address] | | | [facility] | | | | | LABORATORY [...] NP MIDLEVEL PROVIDER: Aniket | | | ABYB Curry NUCLEAR MEDICINE PHARMACOLOGIC | | | STRESS TEST REPORT PATIENT NAME: Markie Pinto : | | | 1940 AGE: 76 y.o. ENCOUNTER DATE: 08/25/2017 DOCUMENT | | | DATE: 08/25/2017 PRIMARY CARE: Doug García MD REFERRING: Brad, | | | Maria Antonia Bland NP [facility] READER: Fly Christianson MD | | [...] | | | Interpreted by: Fly Christianson [facility] PROVIDER REPORT | | | Procedure: [...] + + | MONIKA MELCHOR | [address] | [place] [address] | | | [facility] | | | | | LABORATORY [...] + + | [facility] | [address] | [place] [address] | | | [facility] | | | | | LABORATORY [...] [facility]CRED | [address] | [place] [address] | | | [facility] | [...] + | [facility] | [address] | [place] [address] | | | [facility] | | | | | LABORATORY [...] + + | Glucose | 136 (H)Comment: Nicaraguan | 65 - 99 mg/dL | [facility] [...] + + | MONIKA MELCHOR | [address] | [place] [address] | | | [facility] | | | | | [...] + + | MONIKA MELCHOR | [address] | [place] [address] | | | [facility] | | | | | LABORATORY [...] + + | [facility] | [address] | [place] [address] | | | [facility] | [...] + + | [facility] | [address] | [place] [address] | | | [facility] | | | | | LABORATORY [...] | TRACEMASTER | | Duration:184 msP Horizontal [place]:0 degP Front [place]:26 degQ Onset:512 | | | msQRSD Interval:114 msQT Interval:460 msQTcB:460 msQTcF:460 msQRS | | | Horizontal [place]:-83 degQRS [place]:-34 degI-40 Horizontal [place]:33 degI-40 | | | Front [place]:61 degT-40 Horizontal [place]:231 degT-40 Front [place]:-56 degT | | | Horizontal [place]:103 degT Wave [place]:131 degS-T Horizontal [place]:126 | | | degS-T Front [place]:198 degSeverity:- ABNORMAL ECG -INTERP:SINUS | | | RHYTHMINTERP:LVH WITH IVCD AND SECONDARY REPOL ABNRMElectronically | | | signed by: ERUM MIMS 08-26-2017 10:50:06 | | |QTcB:460 ms | | |QTcF:460 ms | | |QRS Horizontal [place]:-83 deg | | |QRS [place]:-34 deg | | |I-40 Horizontal [place]:33 deg | | |I-40 Front [place]:61 deg | | |T-40 Horizontal [place]:231 deg | | |T-40 Front [place]:-56 deg | | |T Horizontal [place]:103 deg | | |T Wave [place]:131 deg | | |S-T Horizontal [place]:126 deg | | |S-T Front [place]:198 deg | | |Severity:- ABNORMAL ECG - [...] + + | GIDEON RÍOS | [address] | [place] [address] | [phone] | + + + + + documented [...] | | | DAILY, First dose on [facility] 08/24/17 | | AM PST | [...] DAILY PRN, Constipation, | | | Starting [facility] 08/24/17 at 1821, If | | [...] | | | DAILY, First dose on [facility] 08/24/17 | | AM PST | [...] | | | | | dose on [facility] 08/24/17 at 1845 | | AM PST [...] NIGHTLY PRN, | | | Constipation, Starting [facility] 08/24/17 | | | at 1821, [...] DAILY PRN, | | | Constipation, Starting [facility] 08/24/17 | | | at 1821, If docusate ineffective | | | or not ordered., | | + +---+ | | | + +---+ documented in this encounter
--- OUTSIDE RECORDS SUMMARY | ~2019-07-30 | XMS | Encounter Summary ---
Demographics + + + | Address | [address] | | | [place] [address] | + + + | Home Phone | | + + + | Preferred Language | Unknown | + + + | Marital Status | | + + + | Lutheran Affiliation | 1001 | + + + | Race | Unknown | + + + | Ethnic Group | Unknown | + + + Author + + + | Author | [facility] | | | and [place] | + + + | Organization | [facility] | | | [...] Team Providers + +------+ + | Care Canoe Inspector Final Name | Role | Phone | + [...] unknown | | 2013 | Visit | [email or web address] | [address] | cause (Primary Dx); | | | | Internal Medicine | [place] [address] | Paroxysmal atrial | | | | [address] | [phone] | fibrillation (HCC); | | | | [place], [place] | | Chronic diastolic | | | | [address] | | CHF (congestive | | | | [phone] | | heart failure), NYHA | | [...] stores and other places when you can. 4192-0453 [facility], [address] [facility] [address] [facility], [place] [id number]. All rights reserve d. This information is not intended as a substitute for professional medical care. Always fo llow your healthcare professional's instructions. documented in this encounter Progress Notes Doug García MD - 02/25/2014 8:48 PM PDTFormatting of this note might be different from t he original. [facility] CLINIC NOTE Patient Name: Chaya Chan 73 y.o. Date of : 1940 MR Number: [id number] Date of Visit: 02/25/2014 Patient Active Problem List Diagnosis Hypothyroidism Hyperlipidemia Obstructive sleep apnea Restless legs syndrome Benign essential hypertension Coronary artery disease Chronic sinusitis Allergic reaction to contrast dye NSTEMI (non-ST elevated myocardial infarction) ([facility]) Chronic diastolic CHF (congestive heart failure), NYHA [...] Electronically signed by: Doug García 02/25/2014 20:48 [facility] documented in this enc nter Plan of [...] Performed At | + + + | [address] | [facility] | | [address] DATE OF SERVICE: 02/27/2014 PRIMARY CARE: Doug [...] | >70cm/sec, ICA:CCA >3.2 Criteria from [facility] Proc. | | | [id number] | | | CONCLUSION: Moderate stenosis (50-69% [...] might be | | different from the original.[address] | | [place] [address] DATE OF SERVICE: 02/27/2014PRIMARY CARE: Doug García [...] >70cm/sec, ICA:CCA >3.2 Criteria from | | [facility] Proc. [id number] CONCLUSION:Moderate | | stenosis (50-69% diameter reduction) [...] EDV >70cm/sec, ICA:CCA >3.2 | |Criteria from [facility] Proc. [id number] | | | | | |CONCLUSION: | [...] + + + | [place] | [facility], [address] | [place] [address] | [phone] | | - IMAGING - [facility] | [...] + | MONIKA SHEIKH | [address] [facility] | [place] [address] | | | [facility] | | [...] + + + + + | MONIKA [facility] | [address] | [place] [address] | | | [facility] | | | | | [...] 34 (L)Comment: GFR <60: | >60 | [facility] | | | GFR | Chronic kidney disease, | ml/min/1.73m2 | [facility] | | | | if found over a 3 month | | [place] | | | | period.GFR <15: Kidney [...] + + + + + | MONIKA [facility] | [address] | [place] [address] | | | [facility] | | | | | [...] [facility] | | | | | | [facility] | | | | | [facility] [...] + | MONIKA SHEIKH | [address] [facility] | [place] [address] | | | [facility] | | | | | [...] unspecified type of vessel, | | lac vieux or graft | + + | Benign essential hypertension Essential hypertension, benign | + + | Restless legs syndrome Restless legs syndrome (RLS) | + + | Hypothyroidism Unspecified hypothyroidism | + + | Hyperlipidemia Other and unspecified hyperlipidemia | + + documented in this encounter
--- OUTSIDE RECORDS SUMMARY | ~2019-07-30 | XMS | Encounter Summary ---
Demographics + + + | Address | [address] | | | [place] [address] | + + + | Home Phone [...] Team Providers + +------+ + | Care Escalation Engineer Name | Role | Phone | [...] | | | | | PHARMACOTHERAPY | [place] [address] | | | | | CLINIC [address] | [phone] | | | | | [address] | | | | | | [place], [place] | | | | | | [address] | | | | | | [phone] | | | +--------+ + + + [...]
--- OUTSIDE RECORDS SUMMARY | ~2019-07-30 | XMS | Encounter Summary ---
Demographics + + + | Address | [address] | | | [place] [address] | + + + | Home Phone [...] Team Providers + +------+ + | Care Wastewater Plant Operator Name | Role | Phone | + +------+ + | Doug García MD | PCP | | + +------+ + Encounter Details +--------+ + + + + | Date | Type | Department | Care Team | Description | +--------+ + + + + | 08/07/ | Hospital | [facility] | Doug García MD | Benign essential | | 2018 | Encounter | [facility] | [address] | hypertension; Other | | | | LABORATORY [address] | [place] [address] | hyperlipidemia; | | | | [address] | [phone] | Acquired | | | | [place], [place] | | hypothyroidism | | | | [address] | | | | | | [phone] | | | +--------+ + + + [...] | + + + + + | [facility] | [address] | [place] [address] | | | [facility] | | | | | [...] + + | MONIKA SHEIKH | [address] | [place] [address] | | | [facility] | | | | | LABORATORY | [...] | [address] | [place] [address] | | | [facility] | | | | | LABORATORY | [...] | [address] | [place] [address] | | | [facility] | | | | | LABORATORY | | | | + + + + + documented in this encounter Visit Diagnoses + + | Diagnosis | + + | Benign essential hypertension Essential hypertension, benign | + + | Other hyperlipidemia | + + | Acquired hypothyroidism Unspecified hypothyroidism | + + documented in this encounter"
--- OUTSIDE RECORDS SUMMARY | ~2019-07-30 | XMS | Encounter Summary ---
Demographics + + + | Address | [address] | | | [place] [address] | + + + | Home Phone | | + + + | Preferred Language | Unknown | + + + | Marital Status | | + + + | Sikhism Affiliation | 1001 | + + + [...] Team Providers + +------+ + | Care Gas Burner Operator Name | Role | Phone | [...] | [facility] | MD [address] | (Primary Dx) | | | | ELECTRODIAGNOSTICS | [place] [address] | | | | | [address] | [phone] | | | | | [place], [place] | | | | | | [address] | | | | | | [phone] | | | +--------+ + + + [...]
--- OUTSIDE RECORDS SUMMARY | ~2019-07-30 | XMS | Encounter Summary ---
Demographics + + + | Address | [address] | | | [place] [address] | + + + | Home Phone | | + + + | Preferred Language | Unknown | + + + | Marital Status | | + + + | Orthodox Affiliation | 1001 | + + + | Race | Unknown | + + + | Ethnic Group | Unknown | + + + Author + + + | Author | [facility] | | | and [place] | + + + | Organization | [facility] | [...] Team Providers + +------+ + | Care Grain Broker Name | Role | Phone | + [...] | | | | | | | sel[place] | | | | | | | coronary | | | | | | | artery | | | | | | | Coronary | | | | | | | atherosclero | | | | | | | sis of | | | | | | | [place] | | | | | | | coronary | | | | | | | artery | | | | | | | Procedures | | | | | | | [place] CABG, | | | | | | [...] Visit | [facility] | [address] | | | | | [facility] [address] | [place] [address] | | | | | [address] | [phone] | | | | | [place], [place] | | | | | | [address] | | | | | | [phone] | | | +--------+ + + + [...] + + + + + | [facility] | [facility], [address] | [place] [address] | [phone] | | | Shyann | | | [...] | | | | | | [facility] [place] | | | | | | [place] | | | | | | [facility] | | | | | | B[facility] | | | | | | [facility] | | + + + + + + | Rh Type | Negative | | REFERENCE | | | | | | [facility] [place] | | | | | | [facility] | | | | | | [facility] | | | | | | [facility] | | | | | | [facility] | | + + + + + + | Antibody | NegativeComment: Patient | | REFERENCE | | | Screen | is remote crossmatch | | [facility] | | | | eligible | | [...] + + + | Specimen Expiration Date: [id number] | REFERENCE LAB | | | [place] | | | [facility] | | | [facility] | + + + + + + + + | Performing | Address | City/State/Zipcode | Phone Number | | Organization | | | | + + + + + | REFERENCE LAB | [address] | [place] [address] | [phone] | | [facility] | | | | | [facility] | | | | [...] | [facility] | | | Mean | [place] | | [facility] | | | | [facility], [address] | | HEART | | | | [place] [address] | | MEDICAL | | | | [...] + + | MONIKA MELCHOR | [address] | [place] [address] | | | [facility] | | | | | [...] | | LABORATORY | | | | [place] | | | | | | [facility], [address] | | | | | | [address] [place] [address] | | | | + + + + + + + + | Specimen | + + | Blood specimen | | (specimen) | + + + + + + + | Performing | Address | City/State/Zipcode | Phone Number | | Organization | | | | + + + + + | [facility] | [address] | [place] [address] | | | [facility] | | | | | [...] | | | | | [address] [facility], | | | | | | [place] [address] | | | | + + + + + + + + | Specimen | + + | Blood specimen | | (specimen) | + + + + + + + | Performing | Address | City/State/Zipcode | Phone Number | | Organization | | | | + + + + + | [facility] | [address] | [place] [address] | | | [facility] | | | | [...] [place] | | | Count | [place] | | [facility] | | | | [facility], [address] | | HEART | | | | [place] [address] | | MEDICAL | | | | [...] [facility] | [address] | [place] [address] | | | [facility] | | | | [...] + + | Glucose | 102 (H)Comment: [place] | 65 - 99 mg/dL | [facility] | | | | Diabetes Association | [...] at | | | | | | [facility] Heart | | | | | | [facility], [address] | | | | | | [address] [place] [address] | | | | + + + + + + + + | Specimen | + + | Blood specimen | | (specimen) | + + + + + + + | Performing | Address | City/State/Zipcode | Phone Number | | Organization | | | | + + + + + | [facility]CH[facility] | [address] | [place] [address] | | | [facility] | | | | | [...] - 1.030 | [facility] | | | [place] | | | [facility] | | | [...] [facility] | | | | Performed at [facility] | | HEART | | | | [facility] | | MEDICAL | | | | [place], [address] | | CENTER | | | | [place] [address] | | LABORATORY | | + + + + + + + + | Specimen | + + | Urine specimen | | (specimen) - Urine, | | Clean Catch | + + + + + + + | Performing | Address | City/State/Zipcode | Phone Number | | Organization | | | | + + + + + | [facility] | [address] | [place] [address] | | | [facility] | | | | | LABORATORY | | | | + + + + + documented in this encounter Visit Diagnoses Not on filedocumented in this encounter
--- OUTSIDE RECORDS SUMMARY | ~2019-07-30 | XMS | Encounter Summary ---
Demographics + + + | Address | [address] | | | [place] [address] | + + + | Home Phone [...] Providers + +------+ + | Care Gas Plant Worker Name | Role | Phone | [...] + + | 03/27/ | Emergency | [facility] | Sina Child | NSTEMI (non-ST | | 2018 - | | [facility] | MD Myn[address] | elevated myocardial | | | | EMERGENCY CENTER | [address] | infarction) (HCC) | | 03/28/ | | [address] | [place] [address] | (Primary Dx) | | 2018 | | [place], [place] | [phone] | | | | | [address] | | | | | | [phone] | Anny Child | | | | | | MD Lindsey [address] | | | | | | [address] | | | | | | [place] [address] | | | | | | [phone] | | | | | | | [...] | | | | by HARVEY.Performed by [facility] | | | | | | [address], | | | | | | [facility] [address] | | | | + + + + + + + + | Specimen | + + | Blood specimen | | (specimen) | + + + + + + + | Performing | Address | City/State/Zipcode | Phone Number | | Organization | | | | + + + + + | MONIKA SHEIKH | [address] [facility] | [place] [address] | | | [facility] | | | | | LABORATORY [facility] | | | | + + + [...] | | | | | LAW.Performed by [facility] [address] | | | | | | [address], | | | | | | [place] [address] | | | | + + + + + + + + | Specimen | + + | Blood specimen | | (specimen) | + + + + + + + | Performing | Address | City/State/Zipcode | Phone Number | | Organization | | | | + + + + + | [facility] | [address] [facility] | [place] [address] | | | [facility] | | | | | LABORATORY [...] [place] | | | | Performed by [facility] [address] | | KORI | | | | [address] [place] [address] | | [place] | | | | [place] [address] | | HOSPITAL | | | | [...] + | MONIKA SHEIKH | [address] | [place] [address] | | | [facility] | | | | | LABORATORY [...] | | | | | | by [facility] [address] | | | | | | [place] [address] | | | | + + + + + + + + | Specimen | + + | Blood specimen | | (specimen) | + + + + + + + | Performing | Address | City/State/Zipcode | Phone Number | | Organization | | | | + + + + + | [facility] | [address] [facility] | [place] [address] | | | [facility] | | | | | LABORATORY [...] | | HOSPITAL | | | | [facility] [address], | | LABORATORY | | | | [place] [address] | | [place] | | + + + + + + + + | Specimen | + + | Blood specimen | | (specimen) | + + + + + + + | Performing | Address | City/State/Zipcode | Phone Number | | Organization | | | | + + + + + | [facility] | [address] [facility] | [place] [address] | | | [facility] | | | | | LABORATORY [...] [place] | | | Basophils | by [address] | K/uL | M OUNT | | | | [facility] [address] | | C ADE | | | |Performed by [address] [facility] [address] | | H OSPITAL | | | [...] MONIKA SHEIKH | [address] [facility] | [place] [address] | | | [facility] | | | | | LABORATORY [...]
--- OUTSIDE RECORDS SUMMARY | ~2019-07-30 | XMS | Encounter Summary ---
Demographics + + + | Address | [address] | | | [place] [address] | + + + | Home Phone [...] Team Providers + +------+ + | Care Database Engineer Name | Role | Phone | [...] sleep | | 2016 | Visit | [facility] | [address] | apnea (Primary Dx); | | | | Internal Medicine | [place] [address] | Benign essential | | | | [address] | [phone] | hypertension; | | | | [place], [place] | | Restless legs | | | | [address] | | syndrome (RLS); | | | | [phone] | | Second degree AV | | | | | | block; Paroxysmal | | | | | | atrial fibrillation | | | | | | ([facility]); Chronic | | | | | | diastolic CHF | | | | | | (congestive heart | | | | | | failure), NYHA class | | | | | | 2 ([facility]); Coronary | | | | | [...] types of CPAP. Your doctor or CPAP holter scanning technician will help you decide whic h [...] as body position, sleep stage, and snoring. 7470-1220 [employer]. [address] [place] [address]. All righ ts reserved. This information is not intended as a substitute for professional medical care. Always follow your healthcare professional's instructions. documented in this encounter Progress Notes Doug García MD - 08/19/2015 4:47 PM PSTFormatting of this note might be different from t he original. [facility] CLINIC NOTE Patient Name: Chaya Chan 74 y.o. Date of : 1940 MR Number: [id number] Date of Visit: 08/19/2015 Patient Active Problem [...] medication. She will be following up at [facility] for her carotid artery neeta nosis - scheduled for tomorrow. Check labs prior to next visit including CBC, comprehensive metabolic panel, lipid panel, t hyroid studies. Follow-up in 6 months. Electronically signed by: Doug García 08/19/2015 16:47 [facility] documented in this encou nter [...]
--- OUTSIDE RECORDS SUMMARY | ~2019-07-30 | XMS | Encounter Summary ---
Demographics + + + | Address | [address] | | | [place] [address] | + + + | Home Phone | | + + + | Preferred Language | Unknown | + + + | Marital Status | | + + + | Yazidi Affiliation | 1001 | + + + | Race | Unknown | + + + | Ethnic Group | Unknown | + + + Author + + + | Author | [facility] | | | and [place] | + + + | Organization | [facility] | | [...] Team Providers + +------+ + | Care General Cargo Clerk Name | Role | Phone | [...] | | artery | [address] | [place] | | | | | stenosis, | [place] | [facility] [address] | | | | bilateral | [address] | | | | | Procedures | [place], [place] | [address], | | | | | A-carotid | [address] | [place] | | | | | stenosis | Phone: | [phone] | | | | | | [phone] | Phone: | | | | | | Fax: | [phone] | | | | | | [phone] | Fax: | | | | | | | [phone] | +--------+ + + + + + Encounter Details +--------+---------+ + + + | Date | Type | Department | Care Team | Description | +--------+---------+ + + + | 08/20/ | Office | [place] | Colby Guerrero, | Carotid stenosis, | | 2016 | Visit | [facility] [place] | [place] [address] | bilateral (Primary | | | | [facility] [address] | [address] [place], | Dx); Dizziness | | | | [address], [place] | [place] [address] | | | | | [address] | [phone] | | | | | [phone] | | | +--------+---------+ + + + [...] Subramanian PA - 08/20/2015 10:33 AM PST [facility] [place] Name: Chaya Chan Date of : 1940 [...] artery disease; Hyperlipidemia; Hypertension; Th yroid disease; UT (myocardial infarction) ([facility]); CHF (congestive heart failure) ([facility]); Restl ess legs syndrome (RLS) (12/30/2010); Benign [...] Laterality: N/A; Surgeon: Kaveh Viera MD; Location: [facility] MAIN OR Other surgical history 12/17/2013 Laterality: N/A; Surgeon: Erum Gerardo MD; Location: [facility] CARDIOVASCULAR LAB Family History: Her family history [...]
--- OUTSIDE RECORDS SUMMARY | ~2019-07-30 | XMS | Encounter Summary ---
Demographics + + + | Address | [address] | | | [place] [address] | + + + | Home Phone | | + + + | Preferred Language | Unknown | + + + | Marital Status | | + + + | Scientologist Affiliation | 1001 | + + + | Race | Unknown | + + + | Ethnic Group | Unknown | + + + Author + + + | Author | [facility] | | | and [place] | + + + | Organization | [facility] | | [...] Team Providers + +------+ + | Care Office Bookkeeper Name | Role | Phone | + [...] | | and | [address] | | | | | giddiness | [place] | [place], [place] | | | | | Coronary | Ave. | [address] | | | | | atherosclero | [place], [place] | Phone: | | | | | sis of | [address] | [phone] | | | | | unspecified | Phone: | Fax: | | | | | type of | [phone] | [phone] | | | | | vessel, | Fax: | | | | | | sitka or | [phone] | | | | | | graft [...] + + | 02/27/ | Hospital | [place] | Doug García MD | Dizziness of unknown | | 2014 | Encounter | [facility] | [address] | cause; Coronary | | | | [address] | [place] [address] | artery disease | | | | [place], [place] | [phone] | | | | | [address] | | | | | | [phone] | | | +--------+ + + + [...] Performed At | + + + | [address] [place], [place] | [place] | | [address] DATE OF SERVICE: 02/27/2014 PRIMARY CARE: Doug [...] | | >70cm/sec, ICA:CCA >3.2 Criteria from [facility] Proc. | | | [id number] | | | CONCLUSION: Moderate stenosis (50-69% [...] might be | | different from the original.[place] [address] | | [place] [address] DATE OF SERVICE: 02/27/2014PRIMARY CARE: Doug Gracía MD | | ORDERING: Doug García MD [...] >70cm/sec, ICA:CCA >3.2 Criteria from | | [facility] Proc. [id number] CONCLUSION:Moderate | | stenosis (50-69% diameter reduction) [...] EDV >70cm/sec, ICA:CCA >3.2 | |Criteria from [facility] Proc. [id number] | | | | | |CONCLUSION: | [...] + + | Performing | Address | City/State/[facility] | Phone Number | | Organization | | | | + + + + + | [place] | [address] | [place] [address] | [phone] | | - IMAGING - [facility] | [place] | | | + + + + + documented in this encounter Visit Diagnoses + + | Diagnosis | + + | Dizziness of unknown cause | + + | Coronary artery disease Coronary atherosclerosis of unspecified type of vessel, | | sitka or graft | + + documented in this encounter"
--- OUTSIDE RECORDS SUMMARY | 2019-07-30 10:50 | XMS ---
PreManage Notification: MARKIE PINTO Security Early Childhood Services Coordinator Events No recent Security Events currently on file CRITERIA MET - [facility] - [facility] - 2 Visits in 30 Days CARE PROVIDERS NEDRA Guardado Internal Medicine: Pulmonary Disease Current PHONE: Unknown MELY GREEN [facility] [employer] PHONE: Unknown Olvin has no Care Guidelines for this patient. EBreonna VISIT COUNT (12 MO.) [address] TOTAL 7 NOTE: Visits indicate total known visits. ED/UCC VISIT TRACKING (12 MO.) 07/30/2019 10:49 [facility] [place] TYPE: Emergency COMPLAINT: - CHEST PAIN [facility] DIAGNOSES: - Non-ST elevation (NSTEMI) myocardial infarction - Unspecified atrial fibrillation - POSSIBLE HEART ATTACK 07/20/2019 02:11 [facility] [place] TYPE: Emergency DIAGNOSES: - CHEST PAIN 07/09/2019 23:19 [facility] [place] TYPE: Emergency DIAGNOSES: - Non-ST elevation (NSTEMI) myocardial infarction - CHEST PAIN [facility] [place] [facility] DIAGNOSES: - Constipation, unspecified - Referral - Encounter for other specified surgical aftercare [facility]2018 [facility] DIAGNOSES: - Other specified urinary incontinence - Constipation, unspecified - Other specified postprocedural states - Back Pain 10/20/2018 22:16 [facility] [place] TYPE: Emergency DIAGNOSES: - Unspecified urinary incontinence - Constipation, unspecified - Retention of urine, unspecified - Full incontinence of feces - CONSTIPATION INPATIENT VISIT TRACKING (12 MO.) 07/27/2019 12:39 [facility] Constantino ARGUETA TYPE: Intensive Care DIAGNOSES: - Hypothyroidism, unspecified - Obstructive sleep apnea (adult) (pediatric) - Athscl heart disease of [place] coronary artery w/o ang pctrs - Unspecified atrial fibrillation - Non-ST elevation (NSTEMI) myocardial infarction - Paroxysmal atrial fibrillation 07/20/2019 02:11 [facility] TYPE: Medical Surgical DIAGNOSES: - Other specified abnormal findings of blood chemistry - Unspecified atrial fibrillation - CHEST PAIN 07/11/2019 08:19 Pablo [facility] TYPE: Medical Surgical COMPLAINT: - NSTEMI DIAGNOSES: 0. Chest pain, unspecified 1. Non-ST elevation (NSTEMI) myocardial infarction 2. Takotsubo syndrome 3. Athscl heart disease of [place] coronary artery w/o ang pctrs 4. Major depressive disorder, single episode, unspecified 5. Bronchitis, not specified as acute or chronic 6. Occlusion and stenosis of unspecified carotid artery 7. Hypertensive heart disease with heart failure 8. Heart failure, unspecified 9. Flu due to unidentified influenza virus w oth resp manifest 10. Hypothyroidism, unspecified 11. Restless legs syndrome 12. Hyperlipidemia, unspecified 13. Presence of coronary angioplasty implant and graft 14. Prsnl hx of TIA (TIA), and cereb infrc w/o resid deficits 15. Allergy status to ot drug/meds/biol subst status 16. Presence of aortocoronary bypass graft 17. Disappearance and of family member 18. Latex allergy status [email or web address]
[2019-07-30] MEDS ORDERED: ASPIRIN81 MG PO (11:12)
[2019-07-30] MEDS ORDERED: ATORVASTATIN CA80 MG PO (11:12)
[2019-07-30] MEDS ORDERED: CITRUCEL500 MG PO (11:13)
[2019-07-30] MEDS ORDERED: DOK100 MG PO (11:14)
[2019-07-30] MEDS ORDERED: ACID CONTROLLER20 MG PO (11:14)
[2019-07-30] MEDS ORDERED: ISOSORBIDE MONO30 MG PO (11:14)
[2019-07-30] MEDS ORDERED: LISINOPRIL5 MG PO (11:15)
[2019-07-30] MEDS ORDERED: TIROSINT50 MCG PO (11:15)
[2019-07-30] MEDS ORDERED: MAGNESIUM400 MG PO (11:15)
[2019-07-30] MEDS ORDERED: METOPROLOL TAR100 MG PO (11:16)
[2019-07-30] MEDS ORDERED: SENNA8.6 MG PO (11:16)
[2019-07-30] MEDS ORDERED: XARELTO20 MG PO (11:16)
[2019-07-30] MEDS ORDERED: NITROSTAT0.4 MG SL (11:17)
[2019-07-30] MEDS ORDERED: DIGITEK250 MCG PO (14:56)
--- NOTE | 2019-07-31 19:27 | EKG ---
[facility] [address] [facility] [place] [address] Signed Atrial fibrillation with rapid ventricular response Left axis deviation Moderate voltage criteria for LVH, may be normal variant ST \T\ T wave abnormality, consider lateral ischemia Abnormal ECG No previous ECGs available Confirmed by HAI DE LEON MD ([id number]) on 07/31/2019 7:27:35 PM Electronically Signed By: HAI DE LEON MD 07/31/19 [id number] PATIENT NAME: MARKIE PINTO Electrocardiogram DATE OF : 40 PHYSICIAN: HAI DE LEON MD REPORT #: [id number] REPORT IS CONFIDENTIAL AND NOT TO BE RELEASED WITHOUT AUTHORIZATION
== END 2019-07-30 15:46 | disposition home or self-care (01) ==
LOC: ED 10:48
DX: I48.91 Unspecified atrial fibrillation (principal); I10 Essential (primary) hypertension; Z91.09 Other allergy status, other than to drugs and biological substances; Z91.040 Latex allergy status; Z90.2 Acquired absence of lung [part of]; Z91.018 Allergy to other foods; Z88.8 Allergy status to other drugs, medicaments and biological substances; Z79.899 Other long term (current) drug therapy; Z79.82 Long term (current) use of aspirin
CPT/HCPCS: 71045; 80053; 83880; 84484; 85025; 93005; 93010; 96374; 96375; 96376; 99285-25; J1160

== ENCOUNTER 2019-08-24 09:08 | Emergency (ER) | payer MEDICARE ==
[~2019-08-24] VITALS: Ht 165.1 cm; Wt 65.8 kg
[~2019-08-24 09:08] MED LIST: ACID CONTROLLER20 MG PO; ASPIRIN81 MG PO; ATORVASTATIN CA80 MG PO; CITRUCEL500 MG PO; DIGITEK250 MCG PO; DOK100 MG PO; ISOSORBIDE MONO30 MG PO; LISINOPRIL5 MG PO; MAGNESIUM400 MG PO; METOPROLOL TAR100 MG PO; NITROSTAT0.4 MG SL; SENNA8.6 MG PO; TIROSINT50 MCG PO; XARELTO20 MG PO
--- OUTSIDE RECORDS SUMMARY | 2019-08-24 09:12 | XMS ---
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 PHONE: Unknown Olvin has no Care Guidelines for this patient. Jeanette VISIT COUNT (12 MO.) [address] [place] [address] HERB Coe TOTAL 9 NOTE: Visits indicate total known visits. ED/UCC VISIT TRACKING (12 MO.) 08/24/2019 09:09 [facility] [place] TYPE: Emergency COMPLAINT: - POSS HEART ATTACK 08/11/2019 01:30 [facility] OR TYPE: Emergency DIAGNOSES: - Unspecified atrial fibrillation - SOB AND CLAMMY - Heart failure, unspecified 07/30/2019 10:49 [facility] [place] TYPE: Emergency COMPLAINT: - CHEST PAIN DIAGNOSES: - Essential (primary) hypertension - Allergy to other foods - Other intermediate project manager (current) drug therapy - intermediate project manager (current) use of aspirin - Chest pain, unspecified - Unspecified atrial fibrillation - Oth allergy status, oth than to drugs and biolg substances - Allergy status to oth drug/meds/biol subst status - Acquired absence of lung [part of] - Latex allergy status [facility]2019 07[facility] DIAGNOSES: - Non-ST elevation (NSTEMI) myocardial infarction - Unspecified atrial fibrillation - POSSIBLE HEART ATTACK 07/20/2019 02:11 [facility] [place] TYPE: Emergency DIAGNOSES: - CHEST PAIN 07/09/2019 23:19 [facility] OR TYPE: Emergency DIAGNOSES: - Non-ST elevation (NSTEMI) myocardial infarction - CHEST PAIN 10/21/2018 15:39 [facility] TYPE: Emergency DIAGNOSES: - Constipation, unspecified - Referral - Encounter for other specified surgical aftercare 10/21/2018 02:55 [facility] TYPE: Emergency DIAGNOSES: - Other specified urinary incontinence - Constipation, unspecified - Other specified postprocedural states - Back Pain 10/20/2018 22:16 [facility] [place] TYPE: Emergency DIAGNOSES: - Unspecified urinary incontinence - Constipation, unspecified - Retention of urine, unspecified - Full incontinence of feces - CONSTIPATION INPATIENT VISIT TRACKING (12 MO.) 08/11/2019 01:30 [facility] OR TYPE: Medical Surgical DIAGNOSES: - Heart failure, unspecified - Unspecified atrial fibrillation 07/27/2019 12:39 [facility] Constantino [facility]ETA TYPE: Intensive Care DIAGNOSES: - Hypothyroidism, unspecified - Obstructive sleep apnea (adult) (pediatric) - Athscl heart disease of [place] coronary artery w/o ang pctrs - Unspecified atrial fibrillation - Non-ST elevation (NSTEMI) myocardial infarction - Paroxysmal atrial fibrillation 07/20/2019 02:11 [facility] OR TYPE: Medical Surgical DIAGNOSES: - Other specified abnormal findings of blood chemistry - Unspecified atrial fibrillation - CHEST PAIN [facility]11[facility]2019 08:[facility] COMPLAINT: - NSTEMI DIAGNOSES: 0. Chest pain, unspecified 1. Non-ST elevation (NSTEMI) myocardial infarction 2. Takotsubo syndrome 3. Athscl heart disease of [place] coronary artery w/o ang pctrs 4. Major [...] w/o resid deficits 15. Allergy status to oth drug/meds/biol subst status 16. Presence of aortocoronary bypass graft 17. Disappearance and of family member 18. Latex allergy status [email or web address]
--- NOTE | 2019-08-24 18:26 | EKG ---
[facility] [address] [facility] [place] [address] Signed Supraventricular tachycardia Left axis deviation Left ventricular hypertrophy with repolarization abnormality Marked ST abnormality, possible anterior subendocardial injury Abnormal ECG When compared with ECG of 30-JUL-2019 10:51, Significant changes have occurred Confirmed by EDUAR RIVERA MD ([id number]) on 08/24/2019 6:26:04 PM Electronically Signed By: EDUAR RIVERA MD 08/24/19 1826 PATIENT NAME: MARKIE PINTO Electrocardiogram DATE OF : 40 PHYSICIAN: EDUAR RIVERA MD REPORT #: [id number] REPORT IS CONFIDENTIAL AND NOT TO BE RELEASED WITHOUT AUTHORIZATION
== END 2019-08-24 13:42 | disposition home or self-care (01) ==
LOC: ED 09:08
DX: I48.91 Unspecified atrial fibrillation (principal); I24.8 Other forms of acute ischemic heart disease; I11.9 Hypertensive heart disease without heart failure; Z91.040 Latex allergy status; Z91.018 Allergy to other foods; Z91.02 Food additives allergy status; Z88.8 Allergy status to other drugs, medicaments and biological substances; Z79.82 Long term (current) use of aspirin; Z79.899 Other long term (current) drug therapy
CPT/HCPCS: 80053; 83735; 84484; 85025; 93005; 93010; 96374; 96375; 99285-25

== ENCOUNTER 2019-11-28 16:45 | Emergency (ER) | payer MEDICARE ==
[~2019-11-28] VITALS: Ht 165.1 cm; Wt 65.8 kg
--- OUTSIDE RECORDS SUMMARY | 2019-11-28 16:48 | XMS ---
PreManage Notification: MARKIE PINTO Security [employer] Events No recent Security Events currently on file CRITERIA MET - 6 ED Visits in 6 Months CARE PROVIDERS Tee Rhodes Community Health Worker 07/30/2019-Current PHONE: [phone] PEPPER SNEED Internal Medicine: Pulmonary Disease Current PHONE: Unknown [facility] has no Care Guidelines for this patient. Jeanette VISIT COUNT (12 MO.) [address] [place] [address] [place] [facility]. TOTAL 7 NOTE: Visits indicate total known visits. ED/UCC VISIT TRACKING (12 MO.) 11/28/2019 16:46 [facility] [place] TYPE: Emergency COMPLAINT: - STROKE SYMPTOMS 08/24/2019 09:09 [facility] [place] TYPE: Emergency COMPLAINT: - POSS HEART ATTACK DIAGNOSES: - escrow secretary (current) use of aspirin - Other pinner printed circuit boards (current) drug therapy - Allergy to other foods - Other forms of acute ischemic heart disease - Hypertensive heart disease without heart failure - Food additives allergy status - Unspecified atrial fibrillation - Allergy status to other drugs, medicaments and biological sub - Palpitations - Latex allergy status 08/11/2019 01:30 [facility] [place] TYPE: Emergency DIAGNOSES: - Unspecified atrial fibrillation - SOB AND CLAMMY - Heart failure, unspecified 07/30/2019 10:49 [facility] [place] TYPE: Emergency COMPLAINT: - CHEST PAIN DIAGNOSES: - Essential (primary) hypertension - Allergy to other foods - Other care home (current) drug therapy - intermediate (current) use of aspirin - Chest pain, unspecified - Unspecified atrial fibrillation - Other allergy status, other than to drugs and biological subs - Allergy status to other drugs, medicaments and biological sub - Acquired absence of lung [part of] - Latex allergy status 07/27/2019 07:16 [facility] [place] TYPE: Emergency DIAGNOSES: - Non-ST elevation (NSTEMI) myocardial infarction - Unspecified atrial fibrillation - POSSIBLE HEART ATTACK 07/20/2019 02:11 [facility] [place] TYPE: Emergency DIAGNOSES: - CHEST PAIN 07/09/2019 23:19 [facility] DIAGNOSES: - Non-ST elevation (NSTEMI) myocardial infarction - CHEST PAIN INPATIENT VISIT TRACKING (12 MO.) 08/11/2019 01:30 [facility] DIAGNOSES: - Heart failure, unspecified - Unspecified atrial fibrillation 07/27/2019 12:[address] [facility] TYPE: Intensive Care DIAGNOSES: - Hypothyroidism, unspecified - Obstructive sleep apnea (adult) (pediatric) - Atherosclerotic heart disease of [place] coronary artery witho - Unspecified atrial fibrillation - Non-ST elevation (NSTEMI) myocardial infarction - Paroxysmal atrial fibrillation 07/20/2019 02:11 [facility] TYPE: Medical Surgical DIAGNOSES: - Other specified abnormal findings of blood chemistry - Unspecified atrial fibrillation - CHEST PAIN [facility]11/2019 08:[facility] COMPLAINT: - NSTEMI DIAGNOSES: 0. Chest pain, unspecified 1. Non-ST elevation (NSTEMI) myocardial infarction 2. Takotsubo syndrome 3. Atherosclerotic heart disease of [place] coronary artery witho 4. Major depressive disorder, single episode, unspecified 5. Bronchitis, not specified as acute or chronic 6. Occlusion and stenosis of unspecified carotid artery 7. Hypertensive heart disease with heart failure 8. Heart failure, unspecified 9. Influenza due to unidentified influenza virus with other resp 10. Hypothyroidism, unspecified 11. Restless legs syndrome 12. Hyperlipidemia, unspecified 13. Presence of coronary angioplasty implant and graft 14. Personal history of transient ischemic attack (TIA), and cere 15. Allergy status to other drugs, medicaments and biological sub 16. Presence of aortocoronary bypass graft 17. Disappearance and of family member 18. Latex allergy status [email or web address]
--- NOTE | 2019-11-30 12:25 | EKG ---
[facility] [address] [facility] [place], [place] [address] Signed Normal sinus rhythm Left axis deviation Left ventricular hypertrophy with QRS widening Nonspecific T wave abnormality Abnormal ECG When compared with ECG of 24-AUG-2019 09:11, Significant changes have occurred Confirmed by CHRISTOFER MCCLAIN DO ([id number]) on 11/30/2019 12:25:33 PM Electronically Signed By: CHRISTOFER MCCLAIN DO 11/30/19 1225 PATIENT NAME: MARKIE PINTO Electrocardiogram DATE OF : 40 PHYSICIAN: CHRISTOFER MCCLAIN DO REPORT #: [id number] REPORT IS CONFIDENTIAL AND NOT TO BE RELEASED WITHOUT AUTHORIZATION
== END 2019-11-28 19:13 | disposition home or self-care (01) ==
LOC: ED 16:45
DX: G45.9 Transient cerebral ischemic attack, unspecified (principal); I48.91 Unspecified atrial fibrillation; I10 Essential (primary) hypertension; Z91.09 Other allergy status, other than to drugs and biological substances; Z91.040 Latex allergy status; Z91.02 Food additives allergy status; Z88.8 Allergy status to other drugs, medicaments and biological substances; Z91.018 Allergy to other foods; Z79.899 Other long term (current) drug therapy; Z79.82 Long term (current) use of aspirin
CPT/HCPCS: 70450; 71045; 80053; 85025; 93005; 93010; 99285-25

== ENCOUNTER 2019-12-09 15:43 | Emergency (ER) | payer MEDICARE ==
[~2019-12-09] VITALS: Ht 165.1 cm; Wt 65.8 kg
--- OUTSIDE RECORDS SUMMARY | 2019-12-09 15:46 | XMS ---
PreManage Notification: MARKIE PINTO Security Office Support Assistant Events No recent Security Events currently on file CRITERIA MET - 6 ED Visits in 6 Months - [facility] - 2 Visits in 30 Days CARE PROVIDERS Tee Rhodes Community Health Worker 07/30/2019-Current PHONE: [phone] PEPPER SNEED Internal Medicine: Pulmonary Disease Current PHONE: Unknown [facility] Internal [facility] 12/03/2019-Current PHONE: [phone] lOvin has no Care Guidelines for this patient. E.D. VISIT COUNT (12 MO.) [address] [place] [address] [facility] [address] [facility] TOTAL 8 NOTE: Visits indicate total known visits. 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) drug therapy - Allergy status to other drugs, medicaments and biological sub - Food additives allergy status - Allergy to other foods - Latex allergy status 08/24/2019 09:09 [facility] [place] TYPE: Emergency COMPLAINT: - POSS HEART ATTACK DIAGNOSES: - [facility]FP (current) use of aspirin - Other penitentiary (current) drug therapy - Allergy to other foods - Other forms of acute ischemic heart disease - Hypertensive heart disease without heart failure - Food additives allergy status - Unspecified atrial fibrillation - Allergy status to other drugs, medicaments and biological sub - Palpitations - Latex allergy status 08/11/2019 01:30 [facility] [place] TYPE: Emergency DIAGNOSES: - Unspecified atrial fibrillation - SOB AND CLAMMY - Heart failure, unspecified 07/30/2019 10:49 [facility] [place] TYPE: Emergency COMPLAINT: - CHEST PAIN DIAGNOSES: - Essential (primary) hypertension - Allergy to other foods - Other termite exterminator helper (current) drug therapy - MCFP (current) use of aspirin - Chest pain, unspecified - Unspecified atrial fibrillation - Other allergy status, other than to drugs and biological subs - Allergy status to other drugs, medicaments and biological sub - Acquired absence of lung [part of] - Latex allergy status 07/27/2019 07:16 [facility] [place] TYPE: Emergency DIAGNOSES: - Non-ST elevation (NSTEMI) myocardial infarction - Unspecified atrial fibrillation - POSSIBLE HEART ATTACK 07/20/2019 02:11 [facility] [place] TYPE: Emergency DIAGNOSES: - CHEST PAIN 07/09/2019 23:19 [facility] [place] TYPE: Emergency DIAGNOSES: - Non-ST elevation (NSTEMI) myocardial infarction - CHEST PAIN INPATIENT VISIT TRACKING (12 MO.) 08/11/2019 01:30 [facility] DIAGNOSES: - Heart failure, unspecified - Unspecified atrial fibrillation 07/27/2019 12:39 [facility]: Intensive Care DIAGNOSES: - Hypothyroidism, unspecified - Obstructive sleep apnea (adult) (pediatric) - Atherosclerotic heart disease of [place] coronary artery witho - Unspecified atrial fibrillation - Non-ST elevation (NSTEMI) myocardial infarction - Paroxysmal atrial fibrillation 07/20/2019 02:11 [facility] [place] TYPE: Medical Surgical DIAGNOSES: - Other specified abnormal findings of blood chemistry - Unspecified atrial fibrillation - CHEST PAIN 07/11/2019 08:19 [facility] TYPE: Medical Surgical COMPLAINT: - NSTEMI DIAGNOSES: 0. Chest pain, unspecified 1. Non-ST elevation (NSTEMI) myocardial infarction 2. Takotsubo syndrome 3. Atherosclerotic heart disease of [place] coronary artery witho 4. Major depressive disorder, [...] of family member 18. Latex allergy status [email or web address]
--- NOTE | 2019-12-09 18:02 | EKG ---
[facility] [address] [facility] [place] [address] Signed Atrial fibrillation with rapid ventricular response Left axis deviation Voltage criteria for left ventricular hypertrophy Marked ST abnormality, possible inferolateral subendocardial injury Abnormal ECG When compared with ECG of 28-NOV-2019 17:37, Significant changes have occurred Confirmed by HAI DE LEON MD ([id number]) on 12/09/2019 6:01:52 PM Electronically Signed By: HAI DE LEON MD 12/09/19 1802 PATIENT NAME: MARKIE PINTO Electrocardiogram DATE OF : 40 PHYSICIAN: HAI DE LEON MD REPORT #: [id number] REPORT IS CONFIDENTIAL AND NOT TO BE RELEASED WITHOUT AUTHORIZATION
--- NOTE | 2019-12-09 18:02 | EKG ---
[facility] [address] [facility] [place] [address] Signed Normal sinus rhythm Left axis deviation Voltage criteria for left ventricular hypertrophy T wave abnormality, consider lateral ischemia Abnormal ECG Confirmed by HAI DE LEON MD ([id number]) on 12/09/2019 6:02:06 PM Electronically Signed By: HAI DE LEON MD 12/09/19 180 PATIENT NAME: MARKIE PINTO Electrocardiogram DATE OF : 40 PHYSICIAN: HAI DE LEON MD REPORT #: [id number] REPORT IS CONFIDENTIAL AND NOT TO BE RELEASED WITHOUT AUTHORIZATION
== END 2019-12-09 19:15 | disposition home or self-care (01) ==
LOC: ED 15:43
DX: I48.91 Unspecified atrial fibrillation (principal); I25.2 Old myocardial infarction; I10 Essential (primary) hypertension; Z91.041 Radiographic dye allergy status; Z91.040 Latex allergy status; Z88.8 Allergy status to other drugs, medicaments and biological substances; Z79.899 Other long term (current) drug therapy
CPT/HCPCS: 71045; 80053; 83735; 84484; 85025; 85610; 93005; 93010; 96374; 99285-25